=== PATIENT | male | born 1990 | race Caucasian/White ===

== ENCOUNTER 2017-10-23 16:45 | Emergency (ER) | payer OTHER ==
[2017-10-23] MEDS ORDERED: NS 0.9% 1000 ML* 1,000 ML IV ONE (17:21)
[2017-10-23 17:31] LABS: ABS Basophils 0 10^3/ul (0-0.2); ABS Eosinophils 0.1 10^3/ul (0-0.6); ABS Lymphocytes 3.3 10^3/ul (1.0-4.8); ABS Monocytes 0.7 10^3/ul (0-0.8); ABS Neutrophils 8.1 10^3/ul (1.5-7.7); ABS Nucleated RBC 0 10^3/ul; Eosinophil % 0.9 % (0-6); Hematocrit 47 % (42-52); Lymphocyte % 26.8 % (25-47); Mean Corpuscular HGB Conc 35 g/dl (31-36); Mean Corpuscular Hemoglobin 31 pg (27-31); Mean Corpuscular Volume 91 fL (80-94); Mean Platelet Volume 8.8 um3 (7.4-10.4); Nucleated Red Blood Cells % 0; Platelet Count 219 10^3/ul (150-450); Red Blood Count 5.14 10^6/ul (4.0-5.4); Red Cell Distribution Width 14 % (10.5-15); White Blood Count 12.2 10^3/ul (3.5-10.8)
[2017-10-23 17:37] LABS: Urine Appearance Clear; Urine Blood Negative (Negative); Urine Color Yellow; Urine Ketones Negative (Negative); Urine Protein Negative (Negative); Urine Specific Gravity 1.009 (1.010-1.030); Urine Urobilinogen Negative (Negative)
[2017-10-23] MEDS ORDERED: LORazepam INJ* 2 MG/ML 1 ML VIAL IV PUSH ONE (18:34)
--- NOTE | 2017-10-23 22:23 | ED ---
Patrice Brunner Natalie, scribed for Corrine Lee MD on 10/23/17 at 1817 . Substance Abuse/Use - HPI Summary HPI Summary: The pt is a 27 y/o M presenting to the ED c/o ingesting 48 30mg Coricidin pills at 14:30 today. Pt did not vomit after the ingestion. His mother noticed his body was erythematous so she made him come to the ED. He states he took the pills because they "make him comfortable." Pt denies abd pain, nausea, CP, and urinary symptoms. He has had similar episodes before. He states that he last took Coricidin 6 months ago, and he has gone to rehab. He is confused in the ED. He denies SI or HI here, but he has attempted suicide before where he took 200 pills of Coricidin. He regularly takes Invega Sustenna, which he last took on September 03. He is currently living with his mother, and he is unemployed. His mental health counselor is Isi Barajas. FHx of cancer, no SI. - History Of Current Complaint Chief Complaint: EDOverdose Stated Complaint: CONFUSION Time Seen by Provider: 10/23/17 17:00 Hx Obtained From: Patient Onset/Duration of Drug/ETOH Abuse: Hours Ingestion History: Type/Name Of Drug - Coriciden, Amount Ingested - 48 tabs of 30mg each, Approximate Time Of Ingestion - 14:30 Overdose Characteristics: Oral Timing Of Abuse: Recent Cessation For A Period Of - six months Severity Initially: Severe Severity Currently: Severe Aggravating Factor(s): Other - wanted to feel comfortable Alleviating Factor(s): Nothing Associated Signs And Symptoms: Negative - CP, nausea, urinary symptoms, abd pain , SI, HI, Confused Related Hx: Possible Multi Drug Ingestion, Prior Drug Abuse Counseling/Admission , Prior Psych Admission - Risk Factor(s) Completed Suicide Risk Factors: Male, White [place], Past Suicide Attempt - Allergies/Home Medications Allergies/Adverse Reactions: Allergies Allergy/AdvReac Type Severity Reaction Status Date / Time No Known Allergies Allergy Verified 10/23/17 19:21 Home Medications: Home Medications Benztropine TAB* [Cogentin TAB*] 1 mg PO BID 10/23/17 [History Confirmed ] Divalproex DR TAB(*) [Depakote DR(*)] 500 mg PO BID 10/23/17 [History Confirmed 10/23/17] Folic Acid TAB* [Folvite TAB*] 1 mg PO DAILY 10/23/17 [History Confirmed ] Levothyroxine TAB* [Synthroid TAB*] 150 mcg PO DAILY 10/23/17 [History Confirmed 10/23/17] Multivitamins/Minerals TAB* [Theragran/minerals TAB*] 1 tab PO DAILY 10/23/17 [ History Confirmed 10/23/17] Nicotine PATCH 14 MG/24 HR* 14 mg TRANSDERM DAILY 10/23/17 [History Confirmed ] Sertraline* [Zoloft*] 50 mg PO DAILY 10/23/17 [History Confirmed 10/23/17] Thiamine TAB* [Vitamin B-1 TAB*] 100 mg PO DAILY 10/23/17 [History Confirmed 01/03] PMH/Surg Hx/FS Hx/Imm Hx Endocrine/Hematology History: Reports: Hx Thyroid Disease - Hypothyroidism Denies: Hx Anticoagulant Therapy, Hx Blood Disorders, Hx Blood Transfusions, Hx Bone Marrow Disease, Hx Diabetes, Hx Systemic Lupus Erythematosus, Hx Sickle Cell Disease, Hx Anemia, Hx Unexplained Bleeding, Other Endocrine/Hematological Disorders Cardiovascular History: Reports: Hx Hypertension Denies: Hx Aneurysm, Hx Angina, Hx Angioplasty, Hx Auto Implanted Cardiovert Defib, Hx Cardiac Arrest, Hx Cardiomegaly, Hx Congenital Heart Disease, Hx Congestive Heart Failure, Hx Coronary Artery Disease, Hx Deep Vein Thrombosis, Hx Embolism, Hx Hypercholesterolemia, Hx Hypotension, Hx Pacemaker/ICD, Hx Peripheral Vascular Disease, Hx Rheumatic Fever, Hx Syncope, Hx Valvular Heart Disease, Other Cardiovascular Problems/Disorders Respiratory History: Reports: Hx Pneumonia, Hx Seasonal Allergies Denies: Hx Asthma, Hx Chronic Bronchitis, Hx Chronic Obstructive Pulmonary Disease (COPD), Hx Cystic Fibrosis, Hx Lung Cancer, Hx Pleural Effusion, Hx Pulmonary Edema, Hx Pulmonary Embolism, Hx Sleep Apnea, Other Respiratory Problems/Disorders GI History: Reports: Hx Ulcer Denies: Hx Cirrhosis, Hx Crohn's Disease, Hx Diverticulosis, Hx Gall Bladder Disease, Hx Gastroesophageal Reflux Disease, Hx Gastrointestinal Bleed, Hx Hiatal Hernia, Hx Irritable Bowel, Hx Jaundice, Hx Obstructive Bowel, Hx Ileostomy, Hx Pyloric Stenosis, Other GI Disorders History: Denies: Hx Acute Renal Failure, Hx Benign Prostatic Hyperplasia, Hx Chronic Renal Failure, Hx Dialysis, Hx Kidney Infection, Hx Kidney Stones, Hx Renal Disease, Other Problems/Disorders Musculoskeletal History: Denies: Hx Arthritis, Hx Back Problems, Hx Bursitis, Hx Congenital Bone Abnormalities, Hx Fibromyalgia, Hx Gout, Hx Orthopedic Injury, Hx Osteoporosis, Hx Scoliosis, Hx Tendonitis, Other Musculoskeletal History Sensory History: Reports: Hx Contacts or Glasses Denies: Hx Cataracts, Hx Eye Injury, Hx Eye Prosthesis, Hx Glaucoma, Hx Legally Blind, Hx Macular Degeneration, Hx Vision Problem, Other Sensory Impairments Opthamlomology History: Reports: Hx Contacts or Glasses Denies: Hx Cataracts, Hx Eye Injury, Hx Eye Prosthesis, Hx Glaucoma, Hx Legally Blind, Hx Macular Degeneration, Hx Vision Problem, Other Sensory Impairments Neurological History: Reports: Hx Headaches, Hx Seizures Denies: Hx Dementia, Hx Developmental Delay, Hx Migraine, Hx Nerve Disease, Hx Spinal Cord Injury, Hx Transient Ischemic Attacks (TIA), Other Neuro Impairments/Disorders Psychiatric History: Reports: Hx Anxiety, Hx Depression, Hx Post Traumatic Stress Disorder, Hx Inpatient Treatment, Hx Community Mental Health Tx, Hx Bipolar Disorder, Hx of Violent Episodes Against Others, Hx Substance Abuse, Other Psychiatric Issues/Disorders Denies: Hx Attention Deficit Hyperactivity Disorder, Hx Eating Disorder, Hx Panic Disorder, Hx Schizophrenia, Hx Suicide Attempt - Surgical History Surgery Procedure, Year, and Place: none - Immunization History Date of Tetanus Vaccine: Unknown Date of Influenza Vaccine: None Infectious Disease History: No Infectious Disease History: Reports: Hx Hepatitis - Hep C Denies: Hx Clostridium Difficile, Hx Human Immunodeficiency Virus (HIV), Hx of Known/Suspected MRSA, Hx Shingles, Hx Tuberculosis, Hx Known/Suspected VRE, Hx Known/Suspected VRSA, History Other Infectious Disease, Traveled Outside the [place] in Last 30 Days - Family History Known Family History: Positive: Other - cancer - Social History Occupation: Unemployed Lives: With Family Alcohol Use: Weekly Hx Substance Use: Yes Substance Use Type: 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 - dextromethorphan Substance Use Comment - Amount & Last Used: Coricidin Hx Tobacco Use: Yes Smoking Status (MU): Light Every Day Tobacco Smoker Type: Cigarettes Have You Smoked in the Last Year: Yes Review of Systems Constitutional: Negative Negative: Chest Pain Negative: Shortness Of Breath Negative: Abdominal Pain, Nausea Positive: Other - flushed red Neurological: Negative Positive: Other - POSITIVE: ingestion of 48 30mg Coriciden; NEGATIVE: current SI , HI All Other Systems Reviewed And Are Negative: Yes Physical Exam - Summary Physical Exam Summary: Appearance: Ill-appearing, no pain distress, Well-nourished, tachycardic Skin: Warm, flushed skin Head: Normal Head/Face inspection, atraumatic Eyes: Conjunctiva clear, pupils 4mm dilated and reactive,equal, no nystagmus ENT: Normal inspection Neck: Supple, no nodes, no JVD. Respiratory: Lungs clear, Normal breath sounds, no respiratory distress Cardio: RRR, No murmur, pulses normal, brisk capillary refill Abdomen: soft, nontender, no masses Bowel sounds: present Musculoskeletal: Strength Intact/ ROM intact. No calf tenderness. No edema. Psychological: Normal Neuro: Alert, muscle tone normal, no focal deficit, reflexes symmetric 2+, moves all extremities, GCS14 on adm Triage Information Reviewed: Yes Vital Signs On Initial Exam: Initial Vitals Temp Pulse Resp BP Pulse Ox 100.6 F 130 18 138/93 94 10/23/17 16:46 10/23/17 16:46 10/23/17 16:46 10/23/17 16:46 10/23/17 16:46 Vital Signs Reviewed: Yes Diagnostics - Vital Signs Vital Signs Temp Pulse Resp BP Pulse Ox 10/23/17 17:11 97 10/23/17 17:07 100.9 F 121 18 133/91 10/23/17 16:46 100.6 F 130 18 138/93 94 - Laboratory Lab Results: Lab Results 10/23/17 10/23/17 Range/Units 17:21 17:21 WBC 12.2 H (3.5-10.8) 10^3/ul RBC 5.14 (4.0-5.4) 10^6/ul Hgb 16.0 (14.0-18.0) g/dl Hct 47 (42-52) % MCV 91 (80-94) fL MCH 31 (27-31) pg MCHC 35 (31-36) g/dl RDW 14 (10.5-15) % Plt Count 219 (150-450) 10^3/ul MPV 8.8 (7.4-10.4) um3 Neut % (Auto) 66.5 (38-83) % Lymph % (Auto) 26.8 (25-47) % [place] % (Auto) 5.5 (0-7) % Eos % (Auto) 0.9 (0-6) % Baso % (Auto) 0.3 (0-2) % Absolute Neuts (auto) 8.1 H (1.5-7.7) 10^3/ul Absolute Lymphs (auto) 3.3 (1.0-4.8) 10^3/ul Absolute Monos (auto) 0.7 (0-0.8) 10^3/ul Absolute Eos (auto) 0.1 (0-0.6) 10^3/ul Absolute Basos (auto) 0 (0-0.2) 10^3/ul Absolute Nucleated RBC 0 10^3/ul Nucleated RBC % 0 Urine Color Yellow Urine Appearance Clear Urine pH 6.0 (5-9) Ur Specific [place] 1.009 L (1.010-1.030) Urine Protein Negative (Negative) Urine Ketones Negative (Negative) Urine Blood Negative (Negative) Urine Nitrate Negative (Negative) Urine Bilirubin Negative (Negative) Urine Urobilinogen Negative (Negative) Ur Leukocyte Esterase Negative (Negative) Urine Glucose Negative (Negative) Result Diagrams: 10/23/17 17:21 10/23/17 17:21 Lab Statement: Any lab studies that have been ordered have been reviewed, and results considered in the medical decision making process. - EKG 16:47 Cardiac Rate: Tachycardia EKG Rhythm: Sinus Rhythm - 116 BPM EKG Interpretation: Nml AVIVCT, nml QTc, nml axis. EKG Comparison: No Significant Change - Compared to 08/31/15 Re-Evaluation - Re-Evaluation First Eval Re-Evaluation Time: 20:00 Change: Improved Comment: feels well, GCS 15, less tachycardic, wants to go home Second Eval Change: Improved Comment: pulse 95, less flushed, pupils less dilated approx 3mm reactive. Medically clear after discussion with poison control. Course/Dx - Course Course Of Treatment: Pt's medications reviewed during this visit. Allergies noted. High blood pressure noted. Pt is being observed for serotonin syndrome with fever, flushing and tachycardia. In the ED, pt was given 2mg Ativan IV and 1L NS. If needed, pt will be given 10 mg IV valium per poison control. Will observe for nystagmus and dilated pupils, clonus, and hyperreflexia. Pt had LFT' s and usual overdose labwork. Discussed with Juliette in poison control. Pt was medically cleared at 2030, and referred for mental health evaluation for overdose, despite his claim of no SI. Pt is impulsive, has OD'd prior with " 200 pills". Recommend mental health evaluation for evaluation for disposition. Per RN, mother will not take pt back. - Diagnoses Differential Diagnosis/HQI/PQRI: Positive: Drug Abuse, Suicidal Risk Provider Diagnoses: Deliberate medication overdose - Critical Care Time Critical Care Time: 30-74 min - 30mins Discharge - Sign-Out/Discharge Documenting (check all that apply): Sign-Out Patient Signing out patient TO: Twan Villarreal - awaiting MHE - Discharge Plan Condition: Stable Referrals: No Primary Care Phys,NOPCP [Primary Care Provider] - - Billing Disposition and Condition Condition: STABLE The documentation as recorded by the Patrice fournier Natalie accurately reflects the service I personally performed and the decisions made by , Corrine Lee MD.
--- NOTE | 2017-10-24 06:01 | ED ---
Connie Brunner Rebecca, scribed for Twan Villarreal MD on 10/24/17 at 0600 . Progress - Progress Note Progress Note: Pt was signed out by Dr. Lee, pending disposition, awaiting MHE. Course/Dx - Course Course Of Treatment: Pt was signed out by Dr. Lee, pending disposition, awaiting MHE. At shift change, pt has been designated as a MHU hold and will be signed out to the next ED attending, Dr. Lynch. - Diagnoses Provider Diagnoses: Deliberate medication overdose - Critical Care Time Critical Care Time: 30-74 min - 30mins Discharge - Sign-Out/Discharge Documenting (check all that apply): Receiving Sign-Out Signing out patient TO: Dano Lynch Receiving patient FROM: Corrine Lee - Discharge Plan Condition: Stable Referrals: No Primary Care Phys,NOPCP [Primary Care Provider] - The documentation as recorded by the Connie fournier Rebecca accurately reflects the service I personally performed and the decisions made by , Twan Villarreal MD.
[2017-10-24] MEDS ORDERED: Mouth Piece, Nicotine* 1 EACH CARTRIDGE INH PRN (06:49)
[2017-10-24] MEDS ORDERED: Nicotine Inhaler* 10 MG AMP INH ONE (06:49)
--- NOTE | 2017-10-24 08:16 | PN ---
ED Flex Patient Progress Note Subjective: This is a 27 year-old M who is pending psychiatric evaluation secondary to ____ overdose of Coricidon, possible suicide attempt. H/o OD'ing on same . Pt offers no complaints at this time. Wants to go home. Objective: Vitals: Most recent vital signs documented below. Improved since arrival General NAD, Alert and oriented x3. Anxious. Heart: S1/S2, rrr Lungs: CTA, Breathing easily Laboratory: Current laboratory results documented below. TSH was elevated last night - FT3, FT4 are WNL. May have been abnormal 2ndry to coricidon OD. Assessment: overdose Plan: Pending psychiatric evaluation. Medically improved since initial arrival. Will follow up daily _while in ED____. Vital Signs Temp Pulse Resp BP Pulse Ox 97.8 F 61 20 116/73 95 10/24/17 06:22 10/24/17 06:22 10/24/17 06:22 10/24/17 06:22 10/24/17 06:22 Lab Results - Entire Visit 10/23/17 10/23/17 10/23/17 17:21 17:21 17:21 WBC RBC Hgb Hct MCV MCH MCHC RDW Plt Count MPV Neut % (Auto) Lymph % (Auto) [place] % (Auto) Eos % (Auto) Baso % (Auto) Absolute Neuts (auto) Absolute Lymphs (auto) Absolute Monos (auto) Absolute Eos (auto) Absolute Basos (auto) Absolute Nucleated RBC Nucleated RBC % Sodium 138 L Potassium 3.7 Chloride 103 Carbon Dioxide 24 Anion Gap 11 BUN 16 Creatinine 1.08 Est GFR ( Amer) 105.5 Est GFR (Non-Af Amer) 82.0 BUN/Creatinine Ratio 14.8 Glucose 90 Lactic Acid 1.1 Calcium 9.9 Total Bilirubin 0.20 AST 18 ALT 19 Alkaline Phosphatase 43 Total Creatine Kinase 78 Troponin I 0.01 Total Protein 7.8 Albumin 4.9 Globulin 2.9 Albumin/Globulin Ratio 1.7 TSH 14.75 H Free T4 0.73 Free T3 3.40 Urine Color Urine Appearance Urine pH Ur Specific [place] Urine Protein Urine Ketones Urine Blood Urine Nitrate Urine Bilirubin Urine Urobilinogen Ur Leukocyte Esterase Urine Glucose Salicylates < 2.50 Urine Opiates Screen Presumptive positive A Acetaminophen < 15 Ur Barbiturates Screen None detected Valproic Acid < 13.0 L Ur Phencyclidine Scrn Presumptive positive A Ur Amphetamines Screen None detected U Benzodiazepines Scrn None detected Urine Cocaine Screen None detected U Cannabinoids Screen None detected Serum Alcohol < 10 10/23/17 10/23/17 17:21 17:21 WBC 12.2 H RBC 5.14 Hgb 16.0 Hct 47 MCV 91 MCH 31 MCHC 35 RDW 14 Plt Count 219 MPV 8.8 Neut % (Auto) 66.5 Lymph % (Auto) 26.8 [place] % (Auto) 5.5 Eos % (Auto) 0.9 Baso % (Auto) 0.3 Absolute Neuts (auto) 8.1 H Absolute Lymphs (auto) 3.3 Absolute Monos (auto) 0.7 Absolute Eos (auto) 0.1 Absolute Basos (auto) 0 Absolute Nucleated RBC 0 Nucleated RBC % 0 Sodium Potassium Chloride Carbon Dioxide Anion Gap BUN Creatinine Est GFR ( Amer) Est GFR (Non-Af Amer) BUN/Creatinine Ratio Glucose Lactic Acid Calcium Total Bilirubin AST ALT Alkaline Phosphatase Total Creatine Kinase Troponin I Total Protein Albumin Globulin Albumin/Globulin Ratio TSH Free T4 Free T3 Urine Color Yellow Urine Appearance Clear Urine pH 6.0 Ur Specific [place] 1.009 L Urine Protein Negative Urine Ketones Negative Urine Blood Negative Urine Nitrate Negative Urine Bilirubin Negative Urine Urobilinogen Negative Ur Leukocyte Esterase Negative Urine Glucose Negative Salicylates Urine Opiates Screen Acetaminophen Ur Barbiturates Screen Valproic Acid Ur Phencyclidine Scrn Ur Amphetamines Screen U Benzodiazepines Scrn Urine Cocaine Screen U Cannabinoids Screen Serum Alcohol <Missy Richard - Last Filed: 10/24/17 08:16> Subjective: This is a 27 year-old M who is pending admission to [facility] / transfer to another psychiatric facility / discharge to home / or being observed secondary to . Pt offers no complaints at this time or is c/o . Objective: Vitals: Most recent vital signs documented below. General NAD, Alert and oriented x3. Heart: rrr at bpm Lungs: CTA or with rales, rhonchi, wheezing Laboratory: Current laboratory results documented below. Assessment: Plan: Pending psychiatric or medical consultation to observe / transfer / admit / discharge will follow up daily . Vital Signs Temp Pulse Resp BP Pulse Ox 36.9 C 89 20 130/81 100 10/24/17 08:55 10/24/17 08:55 10/24/17 08:55 10/24/17 08:55 10/24/17 08:55 Lab Results - Entire Visit 10/23/17 10/23/17 10/23/17 17:21 17:21 17:21 WBC RBC Hgb Hct MCV MCH MCHC RDW Plt Count MPV Neut % (Auto) Lymph % (Auto) [place] % (Auto) Eos % (Auto) Baso % (Auto) Absolute Neuts (auto) Absolute Lymphs (auto) Absolute Monos (auto) Absolute Eos (auto) Absolute Basos (auto) Absolute Nucleated RBC Nucleated RBC % ESR Sodium 138 L Potassium 3.7 Chloride 103 Carbon Dioxide 24 Anion Gap 11 BUN 16 Creatinine 1.08 Est GFR ( Amer) 105.5 Est GFR (Non-Af Amer) 82.0 BUN/Creatinine Ratio 14.8 Glucose 90 Lactic Acid 1.1 Calcium 9.9 Total Bilirubin 0.20 AST 18 ALT 19 Alkaline Phosphatase 43 Total Creatine Kinase 78 Troponin I 0.01 Total Protein 7.8 Albumin 4.9 Globulin 2.9 Albumin/Globulin Ratio 1.7 TSH 14.75 H Free T4 0.73 Free T3 3.40 Urine Color Urine Appearance Urine pH Ur Specific [place] Urine Protein Urine Ketones Urine Blood Urine Nitrate Urine Bilirubin Urine Urobilinogen Ur Leukocyte Esterase Urine Glucose Salicylates < 2.50 Urine Opiates Screen Presumptive positive A Acetaminophen < 15 Ur Barbiturates Screen None detected Valproic Acid < 13.0 L Ur Phencyclidine Scrn Presumptive positive A Ur Amphetamines Screen None detected U Benzodiazepines Scrn None detected Urine Cocaine Screen None detected U Cannabinoids Screen None detected Serum Alcohol < 10 10/23/17 10/23/17 17:21 17:21 WBC 12.2 H RBC 5.14 Hgb 16.0 Hct 47 MCV 91 MCH 31 MCHC 35 RDW 14 Plt Count 219 MPV 8.8 Neut % (Auto) 66.5 Lymph % (Auto) 26.8 [place] % (Auto) 5.5 Eos % (Auto) 0.9 Baso % (Auto) 0.3 Absolute Neuts (auto) 8.1 H Absolute Lymphs (auto) 3.3 Absolute Monos (auto) 0.7 Absolute Eos (auto) 0.1 Absolute Basos (auto) 0 Absolute Nucleated RBC 0 Nucleated RBC % 0 ESR 5 Sodium Potassium Chloride Carbon Dioxide Anion Gap BUN Creatinine Est GFR ( Amer) Est GFR (Non-Af Amer) BUN/Creatinine Ratio Glucose Lactic Acid Calcium Total Bilirubin AST ALT Alkaline Phosphatase Total Creatine Kinase Troponin I Total Protein Albumin Globulin Albumin/Globulin Ratio TSH Free T4 Free T3 Urine Color Yellow Urine Appearance Clear Urine pH 6.0 Ur Specific [place] 1.009 L Urine Protein Negative Urine Ketones Negative Urine Blood Negative Urine Nitrate Negative Urine Bilirubin Negative Urine Urobilinogen Negative Ur Leukocyte Esterase Negative Urine Glucose Negative Salicylates Urine Opiates Screen Acetaminophen Ur Barbiturates Screen Valproic Acid Ur Phencyclidine Scrn Ur Amphetamines Screen U Benzodiazepines Scrn Urine Cocaine Screen U Cannabinoids Screen Serum Alcohol <Carmelo Lynch-Jenny - Last Filed: 10/26/17 20:42>
[2017-10-24 08:58] VITALS: BP 130/81
== END 2017-10-24 08:55 | disposition home or self-care (01) ==
LOC: ED 16:45
DX: T50.992A Poisoning by other drugs, medicaments and biological substances, intentional self-harm, initial encounter (principal); F17.210 Nicotine dependence, cigarettes, uncomplicated; Z91.5 Personal history of self-harm
CPT/HCPCS: 36415; 80053; 80164; 80307; 80320; 80329; 81003; 82550; 83605; 84439; 84443; 84481; 84484; 85025; 85652; 93005; 96361; 96374; 99283; G0480; J2060

== ENCOUNTER 2017-10-24 10:59 | Observation (INO) | payer OTHER ==
[2017-10-24] MEDS ORDERED: NS 0.9% 1000 ML* 2,000 ML IV ONE (11:15)
[2017-10-24] MEDS ORDERED: LORazepam INJ* 2 MG/ML 1 ML VIAL IV PUSH ONE ×2 (11:15→14:01)
[2017-10-24] MEDS ORDERED: Charcoal ACTIVATED* 25 GM/120 ML BTL PO ONE (11:26)
[2017-10-24 11:38] LABS: ABS Basophils 0 10^3/ul (0-0.2); ABS Eosinophils 0.3 10^3/ul (0-0.6); ABS Lymphocytes 3.1 10^3/ul (1.0-4.8); ABS Monocytes 0.6 10^3/ul (0-0.8); ABS Neutrophils 6.4 10^3/ul (1.5-7.7); ABS Nucleated RBC 0 10^3/ul; Eosinophil % 3.3 % (0-6); Hematocrit 44 % (42-52); Hemoglobin 14.9 g/dl (14.0-18.0); Lymphocyte % 29.6 % (25-47); Mean Corpuscular HGB Conc 34 g/dl (31-36); Mean Corpuscular Hemoglobin 31 pg (27-31); Mean Corpuscular Volume 91 fL (80-94); Mean Platelet Volume 8.2 um3 (7.4-10.4); Nucleated Red Blood Cells % 0.1; Platelet Count 225 10^3/ul (150-450); Red Blood Count 4.78 10^6/ul (4.0-5.4); Red Cell Distribution Width 13 % (10.5-15); White Blood Count 10.5 10^3/ul (3.5-10.8)
[2017-10-24 11:48] LABS: INR 1.14 (0.77-1.02)
[2017-10-24] MEDS ORDERED: LORazepam INJ* 2 MG/ML 1 ML VIAL IV ONE (11:50)
[2017-10-24 11:59] LABS: EGFR Non-African American 103.9 (>60)
[2017-10-24] MEDS ORDERED: NS 0.9% 1000 ML* 1,000 ML IV SCH (12:00)
[2017-10-24] MEDS: LORazepam INJ* 2 MG/ML 1 ML VIAL IV PUSH PRN ×9 (12:30→21:01)
[2017-10-24] MEDS ORDERED: Magnesium Sulfate 2 GM IV* 2 GM/50 ML BAG IVPB ONE (13:27)
--- NOTE | 2017-10-24 13:50 | HP ---
H&P (Free Text) History and Physical: CRITICAL CARE MEDICINE DATE: 10/24/17 TIME: 1230 REFERRING PROVIDER: Kita REASON/CHIEF COMPLAINT: overdose HISTORY OF PRESENT ILLNESS: 27 M known to [facility] with multiple overdoses, with dc from [facility] today with return to ED due to ingestion of 80 pills of coricidin. REVIEW OF SYSTEMS: As per HPI. PAST MEDICAL HISTORY: As per HPI. Psychiatric disturbance, polysubstance abuse, malingering, multiple suicidal attempts, depression, hep c, hypothyroid MEDICATIONS: Reviewed but unconfirmed yet. ALLERGIES: None. SOCIAL HISTORY: Reviewed per records. FAMILY HISTORY: Noncontributory at present. PHYSICAL EXAM: Vital Signs: Reviewed. hr 110s-120s. nonlabored. charcoal in oral pharynx Neurologic: mod delirium; reaching up into the air. hicks. answer some questions appropriately. HEENT: pupils dilated to 5mm but reactive. diffuse erythroderma appearance Cardiovascular: tachy S1 S2 Respiratory: clear non labored. ra Abdomen: soft, nt Extremities: warm, flushed Access: piv LABS: Reviewed. IMAGING: Reviewed. MEDICATIONS: Reviewed. ASSESSMENT: 27 M with h/o multiple overdoses now presenting with intention overdose of 80 pills corcidin. Mild- moderate agitation and delirium At risk for seizures At risk for aspiration Tachycardia, ecg with prolonged QT BP not up yet, but could escalate Resp ok. Received charcoal in ED but airway and agitated delirium still concerning needing ICU management. PLAN: Neurologic: maintaining. given ativan in ED. Continue rather routinely today so things don't escalate. seizure precautions. Cardiovascular: Perfusing. 2L ivf in ED And keep ivf going. benzo use. replete mag k. Respiratory: rosanna. needs icu airway observation. ra. if somulent can monitor with etco2. Gastrointestinal: npo for now. no ngt at this point. Renal/Metabolic: k down slightly. replete with ivf. Infectious Disease: no infective burden. Hematology: stable. hsq Endocrine: continue T4 replacement. Musculoskeletal: seizure precautions. Psych/Social: psych eval when medically cleared Supportive and preventative care as ordered. SUP: ppi VTE prophylaxis: heparin Disposition: ICU for today; hopefully psych soto Code Status: Full Critical Care Time: 40min Mo Manzano DO
[2017-10-24] MEDS ORDERED: LORazepam INJ* 2 MG/ML 1 ML VIAL ONE (14:02)
[2017-10-24] MEDS ORDERED: Diazepam INJ (NF) 5 MG/ML 10 ML VIAL (50 MG TOTAL) IV ONE (14:23)
[2017-10-24] MEDS ORDERED: NS 0.9% w/ 40 Meq KCL 1000 ML* 1,000 ML IV SCH (17:00)
[2017-10-24] MEDS: Diazepam INJ (NF) 5 MG/ML 10 ML VIAL (50 MG TOTAL) IV PRN ×2 (17:03→21:17)
[2017-10-24 17:47] LABS: Urine Appearance Clear; Urine Blood Negative (Negative); Urine Color Straw; Urine Ketones Negative (Negative); Urine Protein Negative (Negative); Urine Specific Gravity 1.009 (1.010-1.030); Urine Urobilinogen Negative (Negative)
--- NOTE | 2017-10-24 21:55 | ED ---
John Brunner Stephanie, scribed for Adam East MD on 10/24/17 at 1131 . Substance Abuse/Use - HPI Summary HPI Summary: The pt is a 27 y/o M presenting to the ED with c/o overdose that occurred at 10: 30 today. The pt was recently discharged from [facility] at the hospital and overdosed on 80 tablets of 30 mg Coricidin. The pt has hx of OD with his usual OD amount of 64 tablets of 30 mg Coricidin. He denies taking any other drugs at the moment. He states he has been 6.5 months sober until yesterday. He states he has been experiencing recent stress of losing his job 2 days ago. - History Of Current Complaint Chief Complaint: EDOverdose Stated Complaint: OVERDOSE Time Seen by Provider: 10/24/17 11:07 Hx Obtained From: Patient Onset/Duration of Drug/ETOH Abuse: Hours - 1 Ingestion History: Type/Name Of Drug - Coricidin, Amount Ingested - 80 30 mg tablets Overdose Characteristics: Oral Timing Of Abuse: Binge Use Severity Currently: Mild Aggravating Factor(s): Recent Stress - job loss Alleviating Factor(s): Nothing - Allergies/Home Medications Allergies/Adverse Reactions: Allergies Allergy/AdvReac Type Severity Reaction Status Date / Time No Known Allergies Allergy Verified 10/23/17 19:21 PMH/Surg Hx/FS Hx/Imm Hx Endocrine/Hematology History: Reports: Hx Thyroid Disease - Hypothyroidism Denies: Hx Anticoagulant Therapy, Hx Blood Disorders, Hx Blood Transfusions, Hx Bone Marrow Disease, Hx Diabetes, Hx Systemic Lupus Erythematosus, Hx Sickle Cell Disease, Hx Anemia, Hx Unexplained Bleeding, Other Endocrine/Hematological Disorders Cardiovascular History: Reports: Hx Hypertension Denies: Hx Aneurysm, Hx Angina, Hx Angioplasty, Hx Auto Implanted Cardiovert Defib, Hx Cardiac Arrest, Hx Cardiomegaly, Hx Congenital Heart Disease, Hx Congestive Heart Failure, Hx Coronary Artery Disease, Hx Deep Vein Thrombosis, Hx Embolism, Hx Hypercholesterolemia, Hx Hypotension, Hx Pacemaker/ICD, Hx Peripheral Vascular Disease, Hx Rheumatic Fever, Hx Syncope, Hx Valvular Heart Disease, Other Cardiovascular Problems/Disorders Respiratory History: Reports: Hx Pneumonia, Hx Seasonal Allergies Denies: Hx Asthma, Hx Chronic Bronchitis, Hx Chronic Obstructive Pulmonary Disease (COPD), Hx Cystic Fibrosis, Hx Lung Cancer, Hx Pleural Effusion, Hx Pulmonary Edema, Hx Pulmonary Embolism, Hx Sleep Apnea, Other Respiratory Problems/Disorders GI History: Reports: Hx Ulcer Denies: Hx Cirrhosis, Hx Crohn's Disease, Hx Diverticulosis, Hx Gall Bladder Disease, Hx Gastroesophageal Reflux Disease, Hx Gastrointestinal Bleed, Hx Hiatal Hernia, Hx Irritable Bowel, Hx Jaundice, Hx Obstructive Bowel, Hx Ileostomy, Hx Pyloric Stenosis, Other GI Disorders History: Denies: Hx Acute Renal Failure, Hx Benign Prostatic Hyperplasia, Hx Chronic Renal Failure, Hx Dialysis, Hx Kidney Infection, Hx Kidney Stones, Hx Renal Disease, Other Problems/Disorders Musculoskeletal History: Denies: Hx Arthritis, Hx Back Problems, Hx Bursitis, Hx Congenital Bone Abnormalities, Hx Fibromyalgia, Hx Gout, Hx Orthopedic Injury, Hx Osteoporosis, Hx Scoliosis, Hx Tendonitis, Other Musculoskeletal History Sensory History: Reports: Hx Contacts or Glasses Denies: Hx Cataracts, Hx Eye Injury, Hx Eye Prosthesis, Hx Glaucoma, Hx Legally Blind, Hx Macular Degeneration, Hx Vision Problem, Other Sensory Impairments Opthamlomology History: Reports: Hx Contacts or Glasses Denies: Hx Cataracts, Hx Eye Injury, Hx Eye Prosthesis, Hx Glaucoma, Hx Legally Blind, Hx Macular Degeneration, Hx Vision Problem, Other Sensory Impairments Neurological History: Reports: Hx Headaches, Hx Seizures Denies: Hx Dementia, Hx Developmental Delay, Hx Migraine, Hx Nerve Disease, Hx Spinal Cord Injury, Hx Transient Ischemic Attacks (TIA), Other Neuro Impairments/Disorders Psychiatric History: Reports: Hx Anxiety, Hx Depression, Hx Post Traumatic Stress Disorder, Hx Inpatient Treatment, Hx Community Mental Health Tx, Hx Bipolar Disorder, Hx of Violent Episodes Against Others, Hx Substance Abuse, Other Psychiatric Issues/Disorders Denies: Hx Attention Deficit Hyperactivity Disorder, Hx Eating Disorder, Hx Panic Disorder, Hx Schizophrenia, Hx Suicide Attempt - Surgical History Surgery Procedure, Year, and Place: none - Immunization History Date of Tetanus Vaccine: Unknown Date of Influenza Vaccine: None Infectious Disease History: No Infectious Disease History: Reports: Hx Hepatitis - Hep C Denies: Hx Clostridium Difficile, Hx Human Immunodeficiency Virus (HIV), Hx of Known/Suspected MRSA, Hx Shingles, Hx Tuberculosis, Hx Known/Suspected VRE, Hx Known/Suspected VRSA, History Other Infectious Disease, Traveled Outside the [place] in Last 30 Days - Family History Known Family History: Positive: Other - cancer Negative: Renal Disease - Social History Occupation: Unemployed Lives: Alone Alcohol Use: Weekly Hx Substance Use: Yes Substance Use Type: 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 - dextromethorphan Substance Use Comment - Amount & Last Used: Coricidin Hx Tobacco Use: Yes Smoking Status (MU): Light Every Day Tobacco Smoker Type: Cigarettes Have You Smoked in the Last Year: Yes Review of Systems Negative: Fever Negative: Slurred Speech All Other Systems Reviewed And Are Negative: Yes Physical Exam - Summary Physical Exam Summary: General: well-appearing, no pain distress Skin: warm, color reflects adequate perfusion, dry Head: normal Eyes: EOMI, pupils 5 mm dilated and reactive to light ENT: normal Neck: supple, nontender Respiratory: CTA, breath sounds present Cardiovascular: tachycardic, regular rhythm Abdomen: soft, nontender Bowel: present Musculoskeletal: normal, strength/ROM intact Neurological: normal, sensory/motor intact, A&O x3 Psychological: affect/mood appropriate Triage Information Reviewed: Yes Vital Signs On Initial Exam: Initial Vitals Temp Pulse Resp BP Pulse Ox 99.5 F 105 20 130/91 97 10/24/17 11:01 10/24/17 11:01 10/24/17 11:01 10/24/17 11:01 10/24/17 11:01 Vital Signs Reviewed: Yes Diagnostics - Vital Signs Vital Signs Temp Pulse Resp BP Pulse Ox 10/24/17 11:01 99.5 F 105 20 130/91 97 - Laboratory Lab Results: Lab Results 10/24/17 10/24/17 10/24/17 Range/Units 11:29 11:29 11:29 WBC 10.5 (3.5-10.8) 10^3/ul RBC 4.78 (4.0-5.4) 10^6/ul Hgb 14.9 (14.0-18.0) g/dl Hct 44 (42-52) % MCV 91 (80-94) fL MCH 31 (27-31) pg MCHC 34 (31-36) g/dl RDW 13 (10.5-15) % Plt Count 225 (150-450) 10^3/ul MPV 8.2 (7.4-10.4) um3 Neut % (Auto) 60.8 (38-83) % Lymph % (Auto) 29.6 (25-47) % Gillespie % (Auto) 6.0 (0-7) % Eos % (Auto) 3.3 (0-6) % Baso % (Auto) 0.3 (0-2) % Absolute Neuts (auto) 6.4 (1.5-7.7) 10^3/ul Absolute Lymphs (auto) 3.1 (1.0-4.8) 10^3/ul Absolute Monos (auto) 0.6 (0-0.8) 10^3/ul Absolute Eos (auto) 0.3 (0-0.6) 10^3/ul Absolute Basos (auto) 0 (0-0.2) 10^3/ul Absolute Nucleated RBC 0 10^3/ul Nucleated RBC % 0.1 INR (Anticoag Therapy) 1.14 H (0.77-1.02) APTT 29.8 (26.0-36.3) seconds Sodium 138 L (139-145) mmol/L Potassium 3.4 L (3.5-5.0) mmol/L Chloride 106 (101-111) mmol/L Carbon Dioxide 25 (22-32) mmol/L Anion Gap 7 (2-11) mmol/L BUN 16 (6-24) mg/dL Creatinine 0.88 (0.67-1.17) mg/dL Est GFR ( Amer) 133.6 (>60) Est GFR (Non-Af Amer) 103.9 (>60) BUN/Creatinine Ratio 18.2 (8-20) Glucose 93 (70-100) mg/dL Lactic Acid (0.5-2.0) mmol/L Calcium 9.7 (8.6-10.3) mg/dL Magnesium 1.9 (1.9-2.7) mg/dL Total Bilirubin 0.40 (0.2-1.0) mg/dL AST 16 (13-39) U/L ALT 19 (7-52) U/L Alkaline Phosphatase 49 (34-104) U/L Troponin I 0.00 (<0.04) ng/mL Total Protein 7.1 (6.4-8.9) g/dL Albumin 4.5 (3.2-5.2) g/dL Globulin 2.6 (2-4) g/dL Albumin/Globulin Ratio 1.7 (1-3) TSH 8.36 H (0.34-5.60) mcIU/mL Salicylates < 2.50 (<30) mg/dL Acetaminophen < 15 mcg/mL Serum Alcohol < 10 (<10) mg/dL 10/24/17 Range/Units 11:29 WBC (3.5-10.8) 10^3/ul RBC (4.0-5.4) 10^6/ul Hgb (14.0-18.0) g/dl Hct (42-52) % MCV (80-94) fL MCH (27-31) pg MCHC (31-36) g/dl RDW (10.5-15) % Plt Count (150-450) 10^3/ul MPV (7.4-10.4) um3 Neut % (Auto) (38-83) % Lymph % (Auto) (25-47) % Gillespie % (Auto) (0-7) % Eos % (Auto) (0-6) % Baso % (Auto) (0-2) % Absolute Neuts (auto) (1.5-7.7) 10^3/ul Absolute Lymphs (auto) (1.0-4.8) 10^3/ul Absolute Monos (auto) (0-0.8) 10^3/ul Absolute Eos (auto) (0-0.6) 10^3/ul Absolute Basos (auto) (0-0.2) 10^3/ul Absolute Nucleated RBC 10^3/ul Nucleated RBC % INR (Anticoag Therapy) (0.77-1.02) APTT (26.0-36.3) seconds Sodium (139-145) mmol/L Potassium (3.5-5.0) mmol/L Chloride (101-111) mmol/L Carbon Dioxide (22-32) mmol/L Anion Gap (2-11) mmol/L BUN (6-24) mg/dL Creatinine (0.67-1.17) mg/dL Est GFR ( Amer) (>60) Est GFR (Non-Af Amer) (>60) BUN/Creatinine Ratio (8-20) Glucose (70-100) mg/dL Lactic Acid 1.1 (0.5-2.0) mmol/L Calcium (8.6-10.3) mg/dL Magnesium (1.9-2.7) mg/dL Total Bilirubin (0.2-1.0) mg/dL AST (13-39) U/L ALT (7-52) U/L Alkaline Phosphatase (34-104) U/L Troponin I (<0.04) ng/mL Total Protein (6.4-8.9) g/dL Albumin (3.2-5.2) g/dL Globulin (2-4) g/dL Albumin/Globulin Ratio (1-3) TSH (0.34-5.60) mcIU/mL Salicylates (<30) mg/dL Acetaminophen mcg/mL Serum Alcohol (<10) mg/dL Result Diagrams: 10/24/17 11:29 10/24/17 11:29 Lab Statement: Any lab studies that have been ordered have been reviewed, and results considered in the medical decision making process. - EKG 11:56 Cardiac Rate: Tachycardia EKG Rhythm: Sinus Tachycardia - [address] Segment: Normal Ectopy: None Course/Dx - Course Course Of Treatment: ADMIT ICU. DR SKINNER SAW PATIENT IN ED. - Diagnoses Provider Diagnoses: Overdose - Physician Notifications Discussed Care Of Patient With: Uday Skinner Time Discussed With Above Provider: 11:44 Instructed by Provider To: Admit As Inpatient - Critical Care Time Critical Care Time: 30-74 min Discharge - Sign-Out/Discharge Documenting (check all that apply): Discharge/Admit/Transfer - Admit - Discharge Plan Condition: Guarded Disposition: ADMITTED TO [facility] - Billing Disposition and Condition Condition: GUARDED Disposition: [facility] The documentation as recorded by the John fournier Stephanie accurately reflects the service I personally performed and the decisions made by me, Adam East MD.
[2017-10-25 05:51] LABS: EGFR Non-African American 108.1 (>60)
--- NOTE | 2017-10-25 11:24 | PN ---
Progress Note - Progress Note Date of Service: 10/25/17 Note: CRITICAL CARE MEDICINE DATE: 10/25/17 TIME: 1020 SUBJECTIVE: Patient seen and examined. No complaints. No further benzo needs since 9pm last night PHYSICAL EXAM: Vital Signs: Reviewed. hr 60s. Neurologic: stable. HEENT: anicteric, reactive Cardiovascular: reg S1 S2 Respiratory: clear Abdomen: soft, nt Extremities: warm Access: piv LABS: Reviewed. IMAGING: Reviewed. MEDICATIONS: Reviewed. ASSESSMENT/PLAN: 27 M with h/o multiple overdoses now presenting with intention overdose of 80 pills corcidin. Mild- moderate agitation and delirium/toxic encephalopathy on admission - resolved Tachycardia, with prolonged QT on admission - resolved Psychiatric disturbance PLAN: Medically stable and cleared for psych needs Supportive and preventative care as ordered. Disposition: ?mhu Code Status: Full Critical Care Time: 20min Mo Manzano, DO
--- NOTE | 2017-10-25 12:00 | PN ---
Progress Note - Progress Note Date of Service: 10/25/17 Note: CRITICAL CARE MEDICINE DATE: 10/25/17 TIME: 1200 D/w psych; clearly known very well to them. Nothing inpt to offer. Set up for aa today at 2:30 and mental health appt in am tomorrow. Advised to plans and pt to meet his f/u needs. can have lunch and will work on dispo from hospital today as he is medically fine and from [facility] otherwise as well as he can be. Disposition: home Code Status: Full Critical Care Time: 10min F. Dario Manzano DO
--- NOTE | 2017-10-25 12:22 | DS ---
CRITICAL CARE MEDICINE DISCHARGE SUMMARY ADMISSION DATE: 10/24/17 ICU ADMISSION DATE: 10/25/2017 ICU DISCHARGE DATE: 10/25/2017 REFERRING PHYSICIAN: Kita DIAGNOSIS: 1. Toxic encephalopathy. 2. Corcidin overdose. 3. Malingering disorder. 4. Prolonged QT on admission. 5. Psychiatric disturbance. 6. Delirium. MEDICATIONS AT DISCHARGE: Resume outpatient medications. ALLERGIES: None. HOSPITAL COURSE: 27 year old male admitted with overdose of corcidin (80 tabs) which has been a recurring event for patient. Known well to ED and psychiatry with multiple inpatient attempts. He was symptomatic on admission and needing close monitoring and observation and therefore admitted to intensive care unit. He received IV fluids, electrolyte replacement and benozdiazepines to control his dynamics which served him adequately. His QT and labs corrected. He has remained stable and medically clear. Was evaluated by psychiatry and plan to allow patient to discharge home with follow up appointment with AA today at 2: 30 and then with mental health in am. Advised about his condition an avoidance of his substances of abuse. DISPOSITION: Home. DIET: Regular. ACTIVITY: At liberty. CODE STATUS: FULL. FOLLOW UP: with treating psychiatric service Mo Manzano DO
[2017-10-25 13:01] VITALS: BP 130/98
== END 2017-10-25 14:02 | disposition home or self-care (01) ==
LOC: ED 10:59 → ICU 11:51 → INTOOBSV 11:51
PROVIDERS: ADMIT Internal Medicine Critical Care Medicine; ATTEND Internal Medicine Critical Care Medicine
DX: G92 Toxic encephalopathy (principal); T50.992A Poisoning by other drugs, medicaments and biological substances, intentional self-harm, initial encounter; Y92.9 Unspecified place or not applicable; F17.210 Nicotine dependence, cigarettes, uncomplicated; Z76.5 Malingerer [conscious simulation]; F99 Mental disorder, not otherwise specified; R41.0 Disorientation, unspecified
CPT/HCPCS: 36415; 80048; 80053; 80307; 80320; 80329; 81003; 83605; 83735; 84443; 84484; 85025; 85610; 85730; 87641; 93005; 96374; 96375; 99283; A9270-GY; G0378; G0480; J2060; J3360; J3475

== ENCOUNTER 2017-10-25 18:32 | Inpatient (IN) | payer OTHER ==
[2017-10-25 19:03] LABS: ABS Basophils 0 10^3/ul (0-0.2); ABS Eosinophils 0.3 10^3/ul (0-0.6); ABS Lymphocytes 1.9 10^3/ul (1.0-4.8); ABS Monocytes 0.7 10^3/ul (0-0.8); ABS Neutrophils 6.6 10^3/ul (1.5-7.7); ABS Nucleated RBC 0 10^3/ul; Hematocrit 44 % (42-52); Hemoglobin 15.3 g/dl (14.0-18.0); Lymphocyte % 20.1 % (25-47); Mean Corpuscular HGB Conc 35 g/dl (31-36); Mean Corpuscular Hemoglobin 32 pg (27-31); Mean Corpuscular Volume 91 fL (80-94); Mean Platelet Volume 8.5 um3 (7.4-10.4); Nucleated Red Blood Cells % 0.1; Platelet Count 193 10^3/ul (150-450); Red Blood Count 4.85 10^6/ul (4.0-5.4); Red Cell Distribution Width 13 % (10.5-15); White Blood Count 9.6 10^3/ul (3.5-10.8)
[2017-10-25 19:23] LABS: EGFR Non-African American 80.3 (>60)
[2017-10-25 19:27] LABS: Urine Appearance Clear; Urine Blood Negative (Negative); Urine Color Yellow; Urine Ketones Negative (Negative); Urine Protein Negative (Negative); Urine Specific Gravity 1.011 (1.010-1.030); Urine Urobilinogen Negative (Negative)
--- NOTE | 2017-10-25 21:47 | RAD ---
INDICATION: Overdose COMPARISON: Chest x-ray dated May 08, 2014 TECHNIQUE: Single AP portable view of the chest was obtained. FINDINGS: Image quality is compromised due to the relative inferiority of a portable chest x-ray. The heart and mediastinum exhibit normal size and contour. The lungs are grossly clear. There is no evidence of a large pleural effusion. Visualized bones are normal for the patient's age. IMPRESSION: No radiographic evidence for acute cardiopulmonary abnormality on this portable chest x-ray.
--- NOTE | 2017-10-25 21:58 | ED ---
Mili Brunner Thomas, scribed for Brayan Haider MD on 10/25/17 at 1902 . Complex/Multi-Sys Presentation - HPI Summary HPI Summary: The patient is a 27 year old male brought in by ambulance with an overdose of Corcidin (dexamethasone and chlorpheniramine maleate). The patient reports that he had five boxes of Corcidin, and each box has 16 pills. It is unclear when he took the pills. The patient only sometimes responds to voice, so I am unable to get a history from him beyond how many pills he took. - History Of Current Complaint Chief Complaint: EDOverdose Hx Obtained From: Patient Hx From Patient Unobtainable Due To: Altered Mental Status Onset/Duration: Still Present Timing: Constant Severity Currently: Severe Location: Negative Character: Unable To Describe - stuporous Associated Signs And Symptoms: Positive: Other - Stuporous - Allergies/Home Medications Allergies/Adverse Reactions: Allergies Allergy/AdvReac Type Severity Reaction Status Date / Time No Known Allergies Allergy Verified 10/23/17 19:21 PMH/Surg Hx/FS Hx/Imm Hx Endocrine/Hematology History: Reports: Hx Thyroid Disease - Hypothyroidism Denies: Hx Anticoagulant Therapy, Hx Blood Disorders, Hx Blood Transfusions, Hx Bone Marrow Disease, Hx Diabetes, Hx Systemic Lupus Erythematosus, Hx Sickle Cell Disease, Hx Anemia, Hx Unexplained Bleeding, Other Endocrine/Hematological Disorders Cardiovascular History: Reports: Hx Hypertension Denies: Hx Aneurysm, Hx Angina, Hx Angioplasty, Hx Auto Implanted Cardiovert Defib, Hx Cardiac Arrest, Hx Cardiomegaly, Hx Congenital Heart Disease, Hx Congestive Heart Failure, Hx Coronary Artery Disease, Hx Deep Vein Thrombosis, Hx Embolism, Hx Hypercholesterolemia, Hx Hypotension, Hx Pacemaker/ICD, Hx Peripheral Vascular Disease, Hx Rheumatic Fever, Hx Syncope, Hx Valvular Heart Disease, Other Cardiovascular Problems/Disorders Respiratory History: Reports: Hx Pneumonia, Hx Seasonal Allergies Denies: Hx Asthma, Hx Chronic Bronchitis, Hx Chronic Obstructive Pulmonary Disease (COPD), Hx Cystic Fibrosis, Hx Lung Cancer, Hx Pleural Effusion, Hx Pulmonary Edema, Hx Pulmonary Embolism, Hx Sleep Apnea, Other Respiratory Problems/Disorders GI History: Reports: Hx Ulcer Denies: Hx Cirrhosis, Hx Crohn's Disease, Hx Diverticulosis, Hx Gall Bladder Disease, Hx Gastroesophageal Reflux Disease, Hx Gastrointestinal Bleed, Hx Hiatal Hernia, Hx Irritable Bowel, Hx Jaundice, Hx Obstructive Bowel, Hx Ileostomy, Hx Pyloric Stenosis, Other GI Disorders History: Denies: Hx Acute Renal Failure, Hx Benign Prostatic Hyperplasia, Hx Chronic Renal Failure, Hx Dialysis, Hx Kidney Infection, Hx Kidney Stones, Hx Renal Disease, Other Problems/Disorders Musculoskeletal History: Denies: Hx Arthritis, Hx Back Problems, Hx Bursitis, Hx Congenital Bone Abnormalities, Hx Fibromyalgia, Hx Gout, Hx Orthopedic Injury, Hx Osteoporosis, Hx Scoliosis, Hx Tendonitis, Other Musculoskeletal History Sensory History: Reports: Hx Contacts or Glasses Denies: Hx Cataracts, Hx Eye Injury, Hx Eye Prosthesis, Hx Glaucoma, Hx Legally Blind, Hx Macular Degeneration, Hx Vision Problem, Hx Hearing Aid, Other Sensory Impairments Opthamlomology History: Reports: Hx Contacts or Glasses Denies: Hx Cataracts, Hx Eye Injury, Hx Eye Prosthesis, Hx Glaucoma, Hx Legally Blind, Hx Macular Degeneration, Hx Vision Problem, Other Sensory Impairments Neurological History: Reports: Hx Headaches, Hx Seizures Denies: Hx Dementia, Hx Developmental Delay, Hx Migraine, Hx Nerve Disease, Hx Spinal Cord Injury, Hx Transient Ischemic Attacks (TIA), Other Neuro Impairments/Disorders Psychiatric History: Reports: Hx Anxiety, Hx Depression, Hx Post Traumatic Stress Disorder, Hx Inpatient Treatment, Hx Community Mental Health Tx, Hx Bipolar Disorder, Hx of Violent Episodes Against Others, Hx Substance Abuse, Other Psychiatric Issues/Disorders Denies: Hx Attention Deficit Hyperactivity Disorder, Hx Eating Disorder, Hx Panic Disorder, Hx Schizophrenia, Hx Suicide Attempt - Surgical History Surgery Procedure, Year, and Place: none - Immunization History Date of Tetanus Vaccine: Unknown Date of Influenza Vaccine: None Infectious Disease History: No Infectious Disease History: Reports: Hx Hepatitis - Hep C Denies: Hx Clostridium Difficile, Hx Human Immunodeficiency Virus (HIV), Hx of Known/Suspected MRSA, Hx Shingles, Hx Tuberculosis, Hx Known/Suspected VRE, Hx Known/Suspected VRSA, History Other Infectious Disease, Traveled Outside the [place] in Last 30 Days - Family History Known Family History: Positive: Other - cancer Negative: Renal Disease - Social History Alcohol Use: Weekly Alcohol Amount: currently intoxicated Hx Substance Use: Yes Substance Use Type: 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 Substance Use Comment - Amount & Last Used: Coricidin Hx Tobacco Use: Yes Smoking Status (MU): Light Every Day Tobacco Smoker Type: Cigarettes Have You Smoked in the Last Year: Yes Review of Systems - ROS Summary Review of Systems Summary: LEVEL 5 CAVEAT: ROS limited by stuporous patient Positive: Other - Ingestion of 80 pills All Other Systems Reviewed And Are Negative: No Physical Exam - Summary Physical Exam Summary: Appearance: The patient is well-nourished in no acute distress and in no acute pain. Skin: The skin is warm and dry and skin color reflects adequate perfusion. HEENT: The head is normocephalic and atraumatic. The pupils are equal and reactive. The conjunctivae are clear and without drainage. Nares are patent and without drainage. Mouth reveals moist mucous membranes and the throat is without erythema and exudate. The external ears are intact. The ear canals are patent and without drainage. The tympanic membranes are intact. Neck: the neck is supple with full range of motion and non-tender. There are no carotid bruits. There is no neck vein distension. Respiratory: Chest is non-tender. Lungs are clear to auscultation and breath sounds are symmetrical and equal. Cardiovascular: Heart is regular rate and rhythm. There is no murmur or rub auscultated. There is no peripheral edema and pulses are symmetrical and equal. Abdomen: The abdomen is soft and non-tender. There are normal bowel sounds heard in all four quadrants and there is no organomegaly palpated. Musculoskeletal: There is no back tenderness noted. Extremities are non-tender with full range of motion. There is good capillary refill. There is no peripheral edema or calf tenderness elicited. Neurological: Patient is alert and oriented to person, place and time. He is stuporous and sometimes responds to voice. The patient has symmetrical motor strength in all four extremities. Cranial nerves are grossly intact. Deep tendon reflexes are symmetrical and equal in all four extremities. LEVEL 5 CAVEAT: Physical Exam limited by stuporous patient Triage Information Reviewed: Yes Vital Signs On Initial Exam: Initial Vitals Temp Pulse Resp BP Pulse Ox 100.0 F 125 14 125/95 93 10/25/17 18:39 10/25/17 18:39 10/25/17 18:39 10/25/17 18:39 10/25/17 18:39 Vital Signs Reviewed: Yes Completion Of Physical Exam Limited Due To: Level 5 Diagnostics - Vital Signs Vital Signs Temp Pulse Resp BP Pulse Ox 10/25/17 18:41 108 26 130/97 91 10/25/17 18:40 107 17 91 05/09/18 18:39 100.0 F 125 14 125/95 93 - Laboratory Lab Results: Lab Results 10/25/17 10/25/17 10/25/17 Range/Units 18:51 18:51 18:51 WBC 9.6 (3.5-10.8) 10^3/ul RBC 4.85 (4.0-5.4) 10^6/ul Hgb 15.3 (14.0-18.0) g/dl Hct 44 (42-52) % MCV 91 (80-94) fL MCH 32 H (27-31) pg MCHC 35 (31-36) g/dl RDW 13 (10.5-15) % Plt Count 193 (150-450) 10^3/ul MPV 8.5 (7.4-10.4) um3 Neut % (Auto) 68.8 (38-83) % Lymph % (Auto) 20.1 L (25-47) % Maverick % (Auto) 7.7 H (0-7) % Eos % (Auto) 3.0 (0-6) % Baso % (Auto) 0.4 (0-2) % Absolute Neuts (auto) 6.6 (1.5-7.7) 10^3/ul Absolute Lymphs (auto) 1.9 (1.0-4.8) 10^3/ul Absolute Monos (auto) 0.7 (0-0.8) 10^3/ul Absolute Eos (auto) 0.3 (0-0.6) 10^3/ul Absolute Basos (auto) 0 (0-0.2) 10^3/ul Absolute Nucleated RBC 0 10^3/ul Nucleated RBC % 0.1 Sodium 138 L (139-145) mmol/L Potassium 3.5 (3.5-5.0) mmol/L Chloride 105 (101-111) mmol/L Carbon Dioxide 23 (22-32) mmol/L Anion Gap 10 (2-11) mmol/L BUN 18 (6-24) mg/dL Creatinine 1.10 (0.67-1.17) mg/dL Est GFR ( Amer) 103.3 (>60) Est GFR (Non-Af Amer) 80.3 (>60) BUN/Creatinine Ratio 16.4 (8-20) Glucose 71 (70-100) mg/dL Lactic Acid 0.8 (0.5-2.0) mmol/L Calcium 9.8 (8.6-10.3) mg/dL Magnesium 2.1 (1.9-2.7) mg/dL Total Bilirubin 0.40 (0.2-1.0) mg/dL AST 24 (13-39) U/L ALT 24 (7-52) U/L Alkaline Phosphatase 48 (34-104) U/L Total Protein 7.5 (6.4-8.9) g/dL Albumin 4.8 (3.2-5.2) g/dL Globulin 2.7 (2-4) g/dL Albumin/Globulin Ratio 1.8 (1-3) Urine Color Urine Appearance Urine pH (5-9) Ur Specific Papillion (1.010-1.030) Urine Protein (Negative) Urine Ketones (Negative) Urine Blood (Negative) Urine Nitrate (Negative) Urine Bilirubin (Negative) Urine Urobilinogen (Negative) Ur Leukocyte Esterase (Negative) Urine Glucose (Negative) Salicylates < 2.50 (<30) mg/dL Urine Opiates Screen (None Detect) Acetaminophen < 15 mcg/mL Ur Barbiturates Screen (None Detect) Valproic Acid < 13.0 L (50-100) mcg/mL Ur Phencyclidine Scrn (None Detect) Ur Amphetamines Screen (None Detect) U Benzodiazepines Scrn (None Detect) Urine Cocaine Screen (None Detect) U Cannabinoids Screen (None Detect) Serum Alcohol < 10 (<10) mg/dL 10/25/17 10/25/17 Range/Units 19:13 19:13 WBC (3.5-10.8) 10^3/ul RBC (4.0-5.4) 10^6/ul Hgb (14.0-18.0) g/dl Hct (42-52) % MCV (80-94) fL MCH (27-31) pg MCHC (31-36) g/dl RDW (10.5-15) % Plt Count (150-450) 10^3/ul MPV (7.4-10.4) um3 Neut % (Auto) (38-83) % Lymph % (Auto) (25-47) % Maverick % (Auto) (0-7) % Eos % (Auto) (0-6) % Baso % (Auto) (0-2) % Absolute Neuts (auto) (1.5-7.7) 10^3/ul Absolute Lymphs (auto) (1.0-4.8) 10^3/ul Absolute Monos (auto) (0-0.8) 10^3/ul Absolute Eos (auto) (0-0.6) 10^3/ul Absolute Basos (auto) (0-0.2) 10^3/ul Absolute Nucleated RBC 10^3/ul Nucleated RBC % Sodium (139-145) mmol/L Potassium (3.5-5.0) mmol/L Chloride (101-111) mmol/L Carbon Dioxide (22-32) mmol/L Anion Gap (2-11) mmol/L BUN (6-24) mg/dL Creatinine (0.67-1.17) mg/dL Est GFR ( Amer) (>60) Est GFR (Non-Af Amer) (>60) BUN/Creatinine Ratio (8-20) Glucose (70-100) mg/dL Lactic Acid (0.5-2.0) mmol/L Calcium (8.6-10.3) mg/dL Magnesium (1.9-2.7) mg/dL Total Bilirubin (0.2-1.0) mg/dL AST (13-39) U/L ALT (7-52) U/L Alkaline Phosphatase (34-104) U/L Total Protein (6.4-8.9) g/dL Albumin (3.2-5.2) g/dL Globulin (2-4) g/dL Albumin/Globulin Ratio (1-3) Urine Color Yellow Urine Appearance Clear Urine pH 5.0 (5-9) Ur Specific Papillion 1.011 (1.010-1.030) Urine Protein Negative (Negative) Urine Ketones Negative (Negative) Urine Blood Negative (Negative) Urine Nitrate Negative (Negative) Urine Bilirubin Negative (Negative) Urine Urobilinogen Negative (Negative) Ur Leukocyte Esterase Negative (Negative) Urine Glucose Negative (Negative) Salicylates (<30) mg/dL Urine Opiates Screen Presumptive positive A (None Detect) Acetaminophen mcg/mL Ur Barbiturates Screen None detected (None Detect) Valproic Acid (50-100) mcg/mL Ur Phencyclidine Scrn Presumptive positive A (None Detect) Ur Amphetamines Screen None detected (None Detect) U Benzodiazepines Scrn Presumptive positive A (None Detect) Urine Cocaine Screen None detected (None Detect) U Cannabinoids Screen None detected (None Detect) Serum Alcohol (<10) mg/dL Result Diagrams: 10/25/17 18:51 10/25/17 18:51 Lab Statement: Any lab studies that have been ordered have been reviewed, and results considered in the medical decision making process. - EKG 18:45 Cardiac Rate: Tachycardia EKG Rhythm: Sinus Tachycardia - at 108 BPM EKG Interpretation: Prolonged QTc. Complex Multi-Symp Course/Dx Course Of Treatment: Fernie admits to another potentially toxic dose of coricidin which he must have taken shortly after discharge today. His QTc is over 500 and I asked the hospitalists to watch him overnight. - Diagnoses Provider Diagnoses: Overdose - Physician Notifications Discussed Care Of Patient With: Estiven Healy Time Discussed With Above Provider: 20:10 Instructed by Provider To: Admit As Inpatient Discharge - Sign-Out/Discharge Documenting (check all that apply): Discharge/Admit/Transfer - Discharge Plan Condition: Fair Disposition: ADMITTED TO [facility] - Billing Disposition and Condition Condition: FAIR [place] [facility] [place] The documentation as recorded by the Mili fournier Thomas accurately reflects the service I personally performed and the decisions made by me, Brayan Haider MD.
[2017-10-25] MEDS: Divalproex DR TAB(*) 500 MG PO SCH (22:03)
[2017-10-25] MEDS: Benztropine TAB* 1 MG PO SCH (22:03)
[2017-10-25] MEDS: LORazepam INJ* 2 MG/ML 1 ML VIAL IV PUSH PRN (22:38)
[2017-10-25] MEDS ORDERED: Mouth Piece, Nicotine* 1 EACH CARTRIDGE INH PRN (23:07)
[2017-10-26] MEDS: NS 0.9% 1000 ML* 1,000 ML IV SCH ×3 (03:27→14:48)
--- NOTE | 2017-10-26 04:11 | CONS ---
CONSULTATION REPORT: DATE OF CONSULT: 10/25/17 SUPERVISING PSYCHIATRIST: Dr. Jace German. ATTENDING PHYSICIAN: Dr. Manzano. CONSULTING PROVIDER: Indiana Patrick NP. REASON FOR CONSULT: Psychiatry was asked to consult due to the patient's overdose on cold medicine Coricidin. PSYCHIATRIC HISTORY: Fernie is a 27-year-old white male, [place] [facility] for Coricidin [place]. The patient has had multiple failed attempts at outpatient substance use and mental health treatment, nonadherence to medications, and multiple failed attempts at substance use rehab. The patient presented to the emergency department on 10/23/17 with symptoms of overdose of Coricidin. He denied suicidality. He was evaluated by Mental Health and this real estate underwriter and deemed appropriate for discharge. The patient reported he had already set up appointments at [facility] and [facility]. He returned to the emergency department within hours due to overuse of Coricidin. He was admitted to the ICU for telemetry monitoring as the telemetry floor was full. The past 2 years, the patient has been living in the [facility], reports he has been involved in [facility] with a onsite case manager of Zhane Corbett. In the past 2 years, his pattern has been unchanged including multiple inpatient rehabs and outpatient mental health and substance use services. Today, the patient states , "this won't happen again." He states that he wants to be discharged and he has already called [facility] as well as [facility] to reestablish care in [facility]. He is avoidant and guarded when I asked why he is returning to the area from [place]. He states that he wanted to come home closer to his family, his mother lives in the [facility]. He states that he has had voices heard in the past, but denies currently and denies psychotic delusions. He states that he is hoping to identify employment and housing in [facility] and states knowledge about various service providers in the area. The patient explains many times how he had been sober the past 6-1/2 months until 2 days ago. The patient continues to deny suicidal ideation and he continues to deny urges to use substances again. We utilized motivational interviewing as well as challenging thoughts. The patient identifies that he tries to mentally "escape" when using Coricidin and has gained a tolerance of up to 64 tabs at a time. PAST PSYCHIATRIC HISTORY: As stated above, Fernie has a history of opiate and Coricidin dependence with multiple ED evaluations and [facility] hospitalizations. He has multiple failed referrals to substance use treatment, and he has a history of requesting admission with complaints of auditory hallucinations and suicidal ideation in the setting of Coricidin use. He also has a history of recanting mental health symptoms and identifying that he said these things in order to be admitted to the hospital. The patient has been hospitalized at [facility]. He has eloped on his way to rehab or signed himself out during an intake or requested discharge during admission to previous rehab facility. He has been treated several times for rhabdomyolysis caused by a substance abuse. He has been treated at [facility] and more recently at [facility]. He has been diagnosed in the past with opiate dependence, Coricidin dependence, substance-induced mood disorder, malingering, and personality disorder. PAST MEDICATION HISTORY: 1. Trials of Abilify. 2. Risperidone. 3. Olanzapine. 4. Sertraline. 5. Citalopram. 6. Fluoxetine. 7. Trazodone. 8. Wellbutrin. 9. Naltrexone. 10. Suboxone. 11. Topamax. 12. Prazosin. 13. Palisade. 14. Antabuse. 15. Benzodiazepine. 16. Stimulants. PAST MEDICAL HISTORY: Remarkable for hepatitis C, hypothyroidism, and he takes levothyroxine 150 mcg. PAST SUICIDE AND HOMICIDE HISTORY: The patient has a history of suicide attempts and prior suicidal behaviors. He has been admitted in the ICU several times after accidental drug overdose. LEGAL HISTORY: The patient has a history of arrest on charges for petty aguirre and has [facility]. There is no noted history of violence or aggression. FAMILY HISTORY: Denies. SUBSTANCE USE HISTORY: The patient has a history of IV opiate use, at the peak he was using 5 to 6 packs heroin per day. His drug of choice is over-the- counter medication Coricidin. His urine drug screen is positive for cannabis and cocaine. The patient reports a history of alcohol use, denies currently, and smokes approximately half pack a day. MENTAL STATUS EXAM: The patient is a moderately built white male, who appears as stated age. He is sitting on ICU hospital bed and eating his lunch. He has broken glasses that have a taped sunglass frame on the left hand side. He is wearing a hospital gown. No psychomotor abnormal activity noted. He is alert and oriented x3. His eye contact is poor. His mood is euthymic. Affect is flat. Thought process is linear and goal directed. He denies AV hallucinations. He denies delusions. He denies suicidal ideation or passive wish. He reports plan to utilize [facility] for help with housing. Insight and judgment are fair. Impulse control is tenuous. Alert and oriented x3. Fund of knowledge is adequate. DIAGNOSES: Juncos I: Coricidin dependence, polysubstance use disorder. Juncos II: Cluster B personality traits. Juncos III: Hepatitis C and hypothyroidism. ASSESSMENT AND PLAN: Fernie is a 27-year-old white male with history of polysubstance use disorder who states intent to refrain from substances. He has a reported history of 6 months of sobriety before a recent relapse and is encouraged to build upon those skills. The patient denies need for admission to the behavioral services unit and would prefer to set up outpatient services, which he has attempted to do on his own. This real estate underwriter called [facility] and set the patient to have an intake this afternoon, 10/25/17, and he will meet with intake person at [facility] tomorrow, at 10 a.m. This information was discussed with Dr. Manzano and the patient' s primary nurse as well as the geriatric social work professor Vero Ramírez who has been working diligently on his case. No further recommendations at this time. I have reviewed this case with my supervising psychiatrist. [place] PATRICK, SANDRA [id number]/CPS #: [id number] SOLO
[2017-10-26] MEDS: Levothyroxine TAB* 150 MCG TAB PO SCH (06:07)
[2017-10-26] MEDS: Mouth Piece, Nicotine* 1 EACH CARTRIDGE INH PRN (06:07)
[2017-10-26] MEDS: Nicotine Inhaler* 10 MG AMP INH PRN ×4 (06:08→16:51)
[2017-10-26 06:43] LABS: ABS Basophils 0 10^3/ul (0-0.2); ABS Eosinophils 0.3 10^3/ul (0-0.6); ABS Lymphocytes 2.3 10^3/ul (1.0-4.8); ABS Monocytes 0.7 10^3/ul (0-0.8); ABS Neutrophils 5.3 10^3/ul (1.5-7.7); ABS Nucleated RBC 0 10^3/ul; Eosinophil % 3.4 % (0-6); Hematocrit 43 % (42-52); Hemoglobin 14.7 g/dl (14.0-18.0); Mean Corpuscular HGB Conc 34 g/dl (31-36); Mean Corpuscular Hemoglobin 31 pg (27-31); Mean Corpuscular Volume 91 fL (80-94); Mean Platelet Volume 8.8 um3 (7.4-10.4); Nucleated Red Blood Cells % 0.1; Platelet Count 170 10^3/ul (150-450); Red Blood Count 4.73 10^6/ul (4.0-5.4); Red Cell Distribution Width 13 % (10.5-15); White Blood Count 8.6 10^3/ul (3.5-10.8)
[2017-10-26 06:49] LABS: INR 1.17 (0.77-1.02)
--- NOTE | 2017-10-26 06:50 | HP ---
HISTORY AND PHYSICAL: DATE OF ADMISSION: 10/25/17 PRIMARY CARE PROVIDER: None. ATTENDING PHYSICIAN WHILE IN THE HOSPITAL: Polly Ozuna MD * (report dictated by Estiven Millan NP) CHIEF COMPLAINT: Overdose. HISTORY OF PRESENTING ILLNESS: Mr. Angeles is a 27-year-old male patient with extensive history of polysubstance abuse. He has a history of depression, hepatitis C, hypothyroidism, and also carries history of psychiatric disorder. He comes into the ED today. He was just literally discharged about 6 hours ago for Coricidin overdose from the ICU. He went home and he says he took 80 pills because he just wanted to get away from it all. He says he is not suicidal. I asked him again if he was trying to take his life, he says no; he just states that he needed to get away from it all. He does admit taking 80 pills. He denied taking any other substances. He denies having any chest pain or shortness of breath. Denies having any abdominal pain. He denies having any nausea. He says that he is not feeling more depressed and he says he has a longstanding history of doing several overdoses with Coricidin previously. He came into the ER, he had low-grade fever and was tachycardic, he was requiring O2, he was drowsy, he was very restless, and because of these findings, we were asked to evaluate for admission. PAST MEDICAL HISTORY: Significant for: 1. Polysubstance abuse. 2. Depression. 3. Psychiatric disorders. 4. Hepatitis C. 5. Hypothyroidism. PAST SURGICAL HISTORY: Denied. HOME MEDICATIONS: Include: 1. Thiamine 100 mg p.o. daily. 2. Zoloft 50 mg p.o. daily. 3. Nicotine patch 1 patch transdermally daily. 4. Multivitamin 1 tablet daily. 5. Synthroid 150 mcg p.o. daily. 6. Folic acid 1 mg daily. 7. Depakote 500 mg p.o. b.i.d. 8. Cogentin 1 mg p.o. b.i.d. ALLERGIES TO MEDICATIONS: Include no known drug allergies. FAMILY HISTORY: Both of his parents are healthy. SOCIAL HISTORY: He does not smoke, does not drink. Denied using cocaine or heroin. He does admit to having overdoses with [id number] medications. REVIEW OF SYSTEMS: There is no documented fever. Denied having any significant weight change. There is no double vision. There is no ear discharge. Denied any rhinorrhea. No sore throat. No thyroid enlargement. Denies having any chest pain. There was no orthopnea. No nocturnal dyspnea. No abdominal pain. No nausea. No vomiting. No dysuria. No frequency. No seizure. No loss of consciousness. No pruritus and no skin ulcerations. Review of 14 systems completed, all others negative. PHYSICAL EXAMINATION GENERAL: At this time, Mr. Angeles is a 27-year-old male patient, sitting in the ED stretcher. He is well nourished, well developed, does not appear to be in any acute distress. VITAL SIGNS: Blood pressure 139/98, pulse 107, respirations 14, O2 sat 91%, temperature was 100. HEENT: Head atraumatic. Eyes: Pupils were dilated, were reactive. He did have nystagmus. Sclerae are anicteric and not pale. Throat: Oral mucosa appears to be dry. No oropharyngeal erythema. NECK: Supple. LUNGS: Clear to auscultation bilaterally. No wheezes, rales, or rhonchi. HEART: Sounds S1, S2. He is tachycardic. ABDOMEN: Soft, flat, nontender. Bowel sounds were present. EXTREMITIES: Pulses were 2+ throughout. He is moving all 4 extremities with 5/ 5 strength. NEUROLOGICAL: He is alert, he is awake, drowsy. He is oriented, he is answering questions. He is oriented x3. He has no gross focal deficits. SKIN: Intact. DIAGNOSTIC STUDIES/LAB DATA: WBC 9.6, RBC of 4.85, hemoglobin 15.3, hematocrit of 44, platelet count of 193. Sodium 138, potassium 3.5, chloride 105, bicarb 23, BUN 18, creatinine 1.10, glucose 71, lactate 0.8, calcium 9.8. Total bili 0.4, AST 24, ALT 24, alk phos 48, albumin of 4.8. Chest x-ray is pending. He did have an EKG obtained today, which revealed sinus tachycardia at the rate of 108. He did have QTc of 508. He had no ST elevations or T-wave inversions. The QTc is longer than his previous EKG, 491. Old medical records were reviewed. ASSESSMENT AND PLAN: Mr. Angeles is a 27-year-old with complaints of Coricidin overdose. We were asked to evaluate for admission. He will be admitted under observation status for: 1. Coricidin overdose. Again, at this point, we will go ahead and continue with supportive care, hydrate the patient, p.r.n. benzos for anxiety. I will allow the drug effects to wear off. He did not receive charcoal here in the ED. We will monitor his EKG, place him on telemetry. We will place him in the ICU, and we will get a psychiatric consult. Because of his frequent overdoses, again, we will get Psych involved. 2. History of depression. Continue meds as prescribed. 3. Hypothyroidism. Continue his Synthroid. 4. History of hepatitis C. Continue his current medical regimen. 5. DVT prophylaxis: He will be placed on SCDs. I have ordered SCDs. 6. Hypoxia. This could be secondary to the drowsiness. I am concerned he may have aspirated. I am getting a chest x-ray. We will monitor him. Should he spike high fevers, have a low threshold for antibiotics, I am holding off at this point. 7. Code Status: Full code. 8. Fluids, electrolytes, and nutrition. He is n.p.o. He will have normal saline at 175 an hour. TIME SPENT: Time spent on the admission 60 minutes, greater than half the time spent [id number] with the patient obtaining my history and physical, other half time was spent going over the plan of care with the patient and implementing the plan of care. I did discuss the plan of care with my attending, Dr. Ozuna; she is in agreement. ESTIVEN MILLAN, SANDRA [id number]/[facility] #: [id number] SOLO
[2017-10-26] MEDS: LORazepam INJ* 2 MG/ML 1 ML VIAL IV PUSH PRN ×2 (07:00→14:22)
[2017-10-26 07:02] LABS: EGFR Non-African American 91.7 (>60)
--- NOTE | 2017-10-26 08:31 | PN ---
Subjective Date of Service: 10/26/17 Interval History: Patient seen and examined. Awake, no complaints. Denies pain, no fever or chills , no headache, no SOB, no n/v. States he is hungry, 1:[address]. States no SI, no plans to hurt himself, states he "fell off the wagon" and knows he "needs to get back on". Objective Active Medications: Benztropine Mesylate (Cogentin Tab*) 1 mg PO BID [facility] Last Admin: 10/25/17 22:03 Dose: 1 mg Device (Nicotine Mouth Piece*) 1 each INH .USE WITH NICOTROL PRN PRN Reason: CRAVING Last Admin: 10/26/17 06:07 Dose: 1 each Divalproex Sodium (Depakote Dr Tab(*)) 500 mg PO BID [facility] Last Admin: 10/25/17 22:03 Dose: 500 mg Folic Acid (Folvite Tab*) 1 mg PO DAILY [facility] Sodium Chloride (Ns 0.9% 1000 Ml*) 1,000 mls @ 175 mls/hr IV PER RATE [facility] Last Admin: 10/26/17 03:27 Dose: 175 mls/hr Levothyroxine Sodium (Synthroid Tab*) 150 mcg PO 0600 [facility] Last Admin: 10/26/17 06:07 Dose: 150 mcg Lorazepam (Ativan Inj*) 1 mg IV PUSH Q6H PRN PRN Reason: ANXIETY Last Admin: 10/26/17 07:00 Dose: 1 mg Nicotine (Nicotine Inhaler*) 10 mg INH Q2H PRN PRN Reason: CRAVING Last Admin: 10/26/17 06:08 Dose: 10 mg Sertraline HCl (Zoloft*) 50 mg PO DAILY [facility] Thiamine HCl (Vitamin B-1 Tab*) 100 mg PO DAILY [facility] Vital Signs - 8 hr 10/26/17 10/26/17 10/26/17 00:30 01:00 01:01 Temperature 99 F Pulse Rate 67 66 68 Respiratory 18 18 19 Rate Blood Pressure 116/71 111/77 (mmHg) O2 Sat by Pulse 94 97 97 Oximetry 10/26/17 10/26/17 10/26/17 01:30 02:00 02:01 Temperature 99 F Pulse Rate 65 68 65 Respiratory 18 18 17 Rate Blood Pressure 107/72 111/71 (mmHg) O2 Sat by Pulse 97 98 98 Oximetry 10/26/17 10/26/17 10/26/17 02:30 03:00 03:01 Temperature 99.2 F Pulse Rate 62 63 63 Respiratory 17 17 18 Rate Blood Pressure 109/69 108/69 (mmHg) O2 Sat by Pulse 98 98 98 Oximetry 10/26/17 10/26/17 10/26/17 03:27 03:30 04:00 Temperature 98.8 F Pulse Rate 71 65 Respiratory 19 18 Rate Blood Pressure 116/82 109/61 (mmHg) O2 Sat by Pulse 97 99 94 Oximetry 10/26/17 10/26/17 10/26/17 04:01 04:30 05:00 Temperature 99 F Pulse Rate 65 62 59 Respiratory 17 16 16 Rate Blood Pressure 104/64 110/74 (mmHg) O2 Sat by Pulse 94 94 95 Oximetry 10/26/17 10/26/17 10/26/17 05:01 06:00 07:00 Temperature 98.2 F Pulse Rate 61 58 Respiratory 19 21 21 Rate Blood Pressure (mmHg) O2 Sat by Pulse 95 99 Oximetry Oxygen Devices in Use Now: None Appearance: Alert, NAD Eyes: No Scleral Icterus, PERRLA Ears/Nose/Mouth/Throat: NL Teeth, Lips, Gums Neck: NL Appearance and Movements; NL JVP, Trachea Midline Respiratory: Symmetrical Chest Expansion and Respiratory Effort, Clear to Auscultation Cardiovascular: NL Sounds; No Murmurs; No JVD, No Edema Abdominal: NL Sounds; No Tenderness; No Distention Neurological: Alert and Oriented x 3 Nutrition: Taking PO's Result Diagrams: 10/26/17 06:00 10/26/17 06:00 Additional Lab and Data: Lab Results 10/25/17 10/25/17 10/25/17 Range/Units 18:51 18:51 18:51 WBC 9.6 (3.5-10.8) 10^3/ul RBC 4.85 (4.0-5.4) 10^6/ul Hgb 15.3 (14.0-18.0) g/dl Hct 44 (42-52) % MCV 91 (80-94) fL MCH 32 H (27-31) pg MCHC 35 (31-36) g/dl RDW 13 (10.5-15) % Plt Count 193 (150-450) 10^3/ul MPV 8.5 (7.4-10.4) um3 Neut % (Auto) 68.8 (38-83) % Lymph % (Auto) 20.1 L (25-47) % [place] % (Auto) 7.7 H (0-7) % Eos % (Auto) 3.0 (0-6) % Baso % (Auto) 0.4 (0-2) % Absolute Neuts (auto) 6.6 (1.5-7.7) 10^3/ul Absolute Lymphs (auto) 1.9 (1.0-4.8) 10^3/ul Absolute Monos (auto) 0.7 (0-0.8) 10^3/ul Absolute Eos (auto) 0.3 (0-0.6) 10^3/ul Absolute Basos (auto) 0 (0-0.2) 10^3/ul Absolute Nucleated RBC 0 10^3/ul Nucleated RBC % 0.1 Sodium 138 L (139-145) mmol/L Potassium 3.5 (3.5-5.0) mmol/L Chloride 105 (101-111) mmol/L Carbon Dioxide 23 (22-32) mmol/L Anion Gap 10 (2-11) mmol/L BUN 18 (6-24) mg/dL Creatinine 1.10 (0.67-1.17) mg/dL Est GFR ( Amer) 103.3 (>60) Est GFR (Non-Af Amer) 80.3 (>60) BUN/Creatinine Ratio 16.4 (8-20) Glucose 71 (70-100) mg/dL Lactic Acid 0.8 (0.5-2.0) mmol/L Calcium 9.8 (8.6-10.3) mg/dL Magnesium 2.1 (1.9-2.7) mg/dL Total Bilirubin 0.40 (0.2-1.0) mg/dL AST 24 (13-39) U/L ALT 24 (7-52) U/L Alkaline Phosphatase 48 (34-104) U/L Total Protein 7.5 (6.4-8.9) g/dL Albumin 4.8 (3.2-5.2) g/dL Globulin 2.7 (2-4) g/dL Albumin/Globulin Ratio 1.8 (1-3) Urine Color Urine Appearance Urine pH (5-9) Ur Specific [place] (1.010-1.030) Urine Protein (Negative) Urine Ketones (Negative) Urine Blood (Negative) Urine Nitrate (Negative) Urine Bilirubin (Negative) Urine Urobilinogen (Negative) Ur Leukocyte Esterase (Negative) Urine Glucose (Negative) Salicylates < 2.50 (<30) mg/dL Urine Opiates Screen (None Detect) Acetaminophen < 15 mcg/mL Ur Barbiturates Screen (None Detect) Valproic Acid < 13.0 L (50-100) mcg/mL Ur Phencyclidine Scrn (None Detect) Ur Amphetamines Screen (None Detect) U Benzodiazepines Scrn (None Detect) Urine Cocaine Screen (None Detect) U Cannabinoids Screen (None Detect) Serum Alcohol < 10 (<10) mg/dL 10/25/17 10/25/17 Range/Units 19:13 19:13 WBC (3.5-10.8) 10^3/ul RBC (4.0-5.4) 10^6/ul Hgb (14.0-18.0) g/dl Hct (42-52) % MCV (80-94) fL MCH (27-31) pg MCHC (31-36) g/dl RDW (10.5-15) % Plt Count (150-450) 10^3/ul MPV (7.4-10.4) um3 Neut % (Auto) (38-83) % Lymph % (Auto) (25-47) % [place] % (Auto) (0-7) % Eos % (Auto) (0-6) % Baso % (Auto) (0-2) % Absolute Neuts (auto) (1.5-7.7) 10^3/ul Absolute Lymphs (auto) (1.0-4.8) 10^3/ul Absolute Monos (auto) (0-0.8) 10^3/ul Absolute Eos (auto) (0-0.6) 10^3/ul Absolute Basos (auto) (0-0.2) 10^3/ul Absolute Nucleated RBC 10^3/ul Nucleated RBC % Sodium (139-145) mmol/L Potassium (3.5-5.0) mmol/L Chloride (101-111) mmol/L Carbon Dioxide (22-32) mmol/L Anion Gap (2-11) mmol/L BUN (6-24) mg/dL Creatinine (0.67-1.17) mg/dL Est GFR ( Amer) (>60) Est GFR (Non-Af Amer) (>60) BUN/Creatinine Ratio (8-20) Glucose (70-100) mg/dL Lactic Acid (0.5-2.0) mmol/L Calcium (8.6-10.3) mg/dL Magnesium (1.9-2.7) mg/dL Total Bilirubin (0.2-1.0) mg/dL AST (13-39) U/L ALT (7-52) U/L Alkaline Phosphatase (34-104) U/L Total Protein (6.4-8.9) g/dL Albumin (3.2-5.2) g/dL Globulin (2-4) g/dL Albumin/Globulin Ratio (1-3) Urine Color Yellow Urine Appearance Clear Urine pH 5.0 (5-9) Ur Specific [place] 1.011 (1.010-1.030) Urine Protein Negative (Negative) Urine Ketones Negative (Negative) Urine Blood Negative (Negative) Urine Nitrate Negative (Negative) Urine Bilirubin Negative (Negative) Urine Urobilinogen Negative (Negative) Ur Leukocyte Esterase Negative (Negative) Urine Glucose Negative (Negative) Salicylates (<30) mg/dL Urine Opiates Screen Presumptive positive A (None Detect) Acetaminophen mcg/mL Ur Barbiturates Screen None detected (None Detect) Valproic Acid (50-100) mcg/mL Ur Phencyclidine Scrn Presumptive positive A (None Detect) Ur Amphetamines Screen None detected (None Detect) U Benzodiazepines Scrn Presumptive positive A (None Detect) Urine Cocaine Screen None detected (None Detect) U Cannabinoids Screen None detected (None Detect) Serum Alcohol (<10) mg/dL Assess/Plan/Problems-Billing Assessment: This is a 27 year old male with longstanding hx of polysubstance abuse/dual diagnosis that presented after ingestion of large amount of coricidin after just being discharged from the hospital several hours prior. - Patient Problems (1) Hx of drug overdose Code(s): Z91.89 - OTH PERSONAL RISK FACTORS, NOT ELSEWHERE CLASSIFIED SNOMED Code(s): 772714881 Comment: - presented to ER with coricidin OD with statements of wanting to "end it" - contracted for safety, states he has no plans of hurting himself or others; 1 :1 discontinued - currently medically stable (2) Major depressive disorder Code(s): F32.9 - MAJOR DEPRESSIVE DISORDER, SINGLE EPISODE, UNSPECIFIED SNOMED Code(s): 671650267 Comment: - Psychiatry consulted and following - Continue home meds for now (3) Polysubstance dependence Code(s): F19.20 - OTHER PSYCHOACTIVE SUBSTANCE DEPENDENCE, UNCOMPLICATED SNOMED Code(s): 21479520 Comment: - States he was sober for 6 months prior to events of the last 24 hours - Pending recs from psych today (4) Hepatitis C Comment: - LFTs stable Status and Disposition: While patient is medically stable for DC, proper disposition from psychiatry for treatment options is pending this AM. Will defer to psychiatry.
[2017-10-26] MEDS: Divalproex DR TAB(*) 500 MG PO SCH ×2 (09:07→21:35)
[2017-10-26] MEDS: Benztropine TAB* 1 MG PO SCH ×2 (09:08→21:35)
[2017-10-26] MEDS: Folic Acid TAB* 1 MG PO SCH (09:09)
[2017-10-26] MEDS: Sertraline* 50 MG TAB PO SCH (09:09)
[2017-10-26] MEDS: Thiamine TAB* 100 MG TAB PO SCH (09:09)
--- NOTE | 2017-10-26 20:04 | CONS ---
CONSULTATION REPORT: DATE OF CONSULT: 10/26/17 SUPERVISING PSYCHIATRIST: Jace German MD ATTENDING PROVIDERS: Emili Graham NP and Dr. Manzano. CONSULTING PROVIDER: [place] Patrick NP. REASON FOR CONSULTATION: Psychiatry was asked to consult due to the patient's return and multiple overdoses on cold medicine Coricidin. PSYCHIATRIC HISTORY: Fernie is a 27-year-old white male who has presented to the hospital 3 times in the past 2 days due to overdose on cold medicine Coricidin. He denies suicidal ideation. He reports poor impulse control and need to mentally escape by using Coricidin. The patient was discharged from the ICU yesterday with an appointment to attend the [facility] in the afternoon and an appointment at [facility] for the intake this morning. He returned via EMS around 6:30 in the evening after ingesting Coricidin. Today, the patient continued to assert that he wants to relocate to [facility] to be closer to home. He states that he is safe for discharge and wants to pursue housing and mental health services. This clinical writer, his social welfare administrator and his mother are all present at various times during the interview. The patient has zero to low insight in regards to compulsions to use Coricidin. He initially denies need for substance use rehab and states "I know what I need to do." This clinical writer, his mother and social work informed him of our concern that he is unable to follow through on his intention and that he is not able to make rational choices at this time. It is strongly recommended that he either return to [facility] where he has case management services established or to be referred to a substance use inpatient. The patient initially declined and negates the suggestions. He later agrees to referral to substance use treatment. PAST PSYCHIATRIC HISTORY: Unchanged from yesterday. Please see consultation report on 10/25/17. MENTAL STATUS EXAM: The patient is a moderately built white male who appears stated age. He is sitting on the hospital bed. Upon approach, he is alert and oriented x3. He has improved mental status compared to yesterday. He continues to wear broken glasses that have a taped tooth brush as an arm on the left side. No psychomotor abnormal activity noted. His eye contact is good. His mood is euthymic and affect is congruent. Though process is linear and goal directed. He denies AV hallucinations. He denies delusions. He denies SI or passive wish. Insight and judgment are poor. Impulse control is impaired. Fund of knowledge is adequate. DIAGNOSES: Coricidin dependent polysubstance use disorder, cluster B personality traits, history of hepatitis C and hypothyroidism. ASSESSMENT AND PLAN: Fernie is a 27-year-old white male with a history of polysubstance use disorder and inability to refrain from Coricidin use. The patient has a history of 6 months of sobriety before recent relapse. The patient was discharged yesterday from the ICU and did not follow through on recommendations and appointments that were set up for him in the community. There is not a bed on the behavioral services unit at this time. The patient will remain on medical service, and Psychiatry will consult daily until he is sent to accepting substance use treatment facility. The patient is no longer in need of one-on-one observation status as he is not actively suicidal. This information was discussed with Kandice Graham as well as the zipper repairer, Dr. Manzano , and social welfare administrator Vero Ramírez, who has been working diligently on his case. I have reviewed this case with supervising psychiatrist. [place] PATRICK, SANDRA [id number]/[facility] #: [id number] SOLO
[2017-10-27] MEDS: Levothyroxine TAB* 150 MCG TAB PO SCH (06:12)
[2017-10-27] MEDS: Nicotine Inhaler* 10 MG AMP INH PRN ×4 (07:14→16:57)
[2017-10-27] MEDS: Benztropine TAB* 1 MG PO SCH ×2 (08:43→21:49)
[2017-10-27] MEDS: LORazepam INJ* 2 MG/ML 1 ML VIAL IV PUSH PRN (08:43)
[2017-10-27] MEDS: Divalproex DR TAB(*) 500 MG PO SCH ×2 (08:43→21:49)
[2017-10-27] MEDS: Thiamine TAB* 100 MG TAB PO SCH (08:44)
[2017-10-27] MEDS: Folic Acid TAB* 1 MG PO SCH (08:44)
[2017-10-27] MEDS: Sertraline* 50 MG TAB PO SCH (08:44)
--- NOTE | 2017-10-27 12:11 | PN ---
Subjective Date of Service: 10/27/17 Interval History: No complaints today, Resting in bed, feeling positive about going to rehab, Denies chest pain or shortness of breath. Denies abd pain , n/v/d. Family History: Unchanged from Admission Social History: Unchanged from Admission Past Medical History: Unchanged from Admission Objective Active Medications: Benztropine Mesylate (Cogentin Tab*) 1 mg PO BID [facility] Last Admin: 10/27/17 08:43 Dose: 1 mg Device (Nicotine Mouth Piece*) 1 each INH .USE WITH NICOTROL PRN PRN Reason: CRAVING Last Admin: 10/26/17 06:07 Dose: 1 each Divalproex Sodium (Depakote Dr Tab(*)) 500 mg PO BID [facility] Last Admin: 10/27/17 08:43 Dose: 500 mg Folic Acid (Folvite Tab*) 1 mg PO DAILY [facility] Last Admin: 10/27/17 08:44 Dose: 1 mg Levothyroxine Sodium (Synthroid Tab*) 150 mcg PO 0600 [facility] Last Admin: 10/27/17 06:12 Dose: 150 mcg Lorazepam (Ativan Inj*) 1 mg IV PUSH Q6H PRN PRN Reason: ANXIETY Last Admin: 10/27/17 08:43 Dose: 1 mg Nicotine (Nicotine Inhaler*) 10 mg INH Q2H PRN PRN Reason: CRAVING Last Admin: 10/27/17 11:49 Dose: 10 mg Sertraline HCl (Zoloft*) 50 mg PO DAILY [facility] Last Admin: 10/27/17 08:44 Dose: 50 mg Thiamine HCl (Vitamin B-1 Tab*) 100 mg PO DAILY [facility] Last Admin: 10/27/17 08:44 Dose: 100 mg Vital Signs - 8 hr 10/27/17 11:49 Temperature 98.1 F Oxygen Devices in Use Now: None Appearance: appears comfortable sitting in bed Eyes: No Scleral Icterus Ears/Nose/Mouth/Throat: Clear Oropharnyx, Mucous Membranes Moist Neck: NL Appearance and Movements; NL JVP, Trachea Midline Respiratory: Symmetrical Chest Expansion and Respiratory Effort, Clear to Auscultation Cardiovascular: NL Sounds; No Murmurs; No JVD, No Edema Abdominal: NL Sounds; No Tenderness; No Distention Extremities: No Edema, No Clubbing, Cyanosis Skin: No Rash or Ulcers Neurological: Alert and Oriented x 3 Nutrition: Taking PO's Result Diagrams: 10/28/17 06:06 10/28/17 06:06 Additional Lab and Data: Lab Results 10/25/17 10/25/17 10/25/17 Range/Units 18:51 18:51 18:51 WBC 9.6 (3.5-10.8) 10^3/ul RBC 4.85 (4.0-5.4) 10^6/ul Hgb 15.3 (14.0-18.0) g/dl Hct 44 (42-52) % MCV 91 (80-94) fL MCH 32 H (27-31) pg MCHC 35 (31-36) g/dl RDW 13 (10.5-15) % Plt Count 193 (150-450) 10^3/ul MPV 8.5 (7.4-10.4) um3 Neut % (Auto) 68.8 (38-83) % Lymph % (Auto) 20.1 L (25-47) % [place] % (Auto) 7.7 H (0-7) % Eos % (Auto) 3.0 (0-6) % Baso % (Auto) 0.4 (0-2) % Absolute Neuts (auto) 6.6 (1.5-7.7) 10^3/ul Absolute Lymphs (auto) 1.9 (1.0-4.8) 10^3/ul Absolute Monos (auto) 0.7 (0-0.8) 10^3/ul Absolute Eos (auto) 0.3 (0-0.6) 10^3/ul Absolute Basos (auto) 0 (0-0.2) 10^3/ul Absolute Nucleated RBC 0 10^3/ul Nucleated RBC % 0.1 Sodium 138 L (139-145) mmol/L Potassium 3.5 (3.5-5.0) mmol/L Chloride 105 (101-111) mmol/L Carbon Dioxide 23 (22-32) mmol/L Anion Gap 10 (2-11) mmol/L BUN 18 (6-24) mg/dL Creatinine 1.10 (0.67-1.17) mg/dL Est GFR ( Amer) 103.3 (>60) Est GFR (Non-Af Amer) 80.3 (>60) BUN/Creatinine Ratio 16.4 (8-20) Glucose 71 (70-100) mg/dL Lactic Acid 0.8 (0.5-2.0) mmol/L Calcium 9.8 (8.6-10.3) mg/dL Magnesium 2.1 (1.9-2.7) mg/dL Total Bilirubin 0.40 (0.2-1.0) mg/dL AST 24 (13-39) U/L ALT 24 (7-52) U/L Alkaline Phosphatase 48 (34-104) U/L Total Protein 7.5 (6.4-8.9) g/dL Albumin 4.8 (3.2-5.2) g/dL Globulin 2.7 (2-4) g/dL Albumin/Globulin Ratio 1.8 (1-3) Urine Color Urine Appearance Urine pH (5-9) Ur Specific [place] (1.010-1.030) Urine Protein (Negative) Urine Ketones (Negative) Urine Blood (Negative) Urine Nitrate (Negative) Urine Bilirubin (Negative) Urine Urobilinogen (Negative) Ur Leukocyte Esterase (Negative) Urine Glucose (Negative) Salicylates < 2.50 (<30) mg/dL Urine Opiates Screen (None Detect) Acetaminophen < 15 mcg/mL Ur Barbiturates Screen (None Detect) Valproic Acid < 13.0 L (50-100) mcg/mL Ur Phencyclidine Scrn (None Detect) Ur Amphetamines Screen (None Detect) U Benzodiazepines Scrn (None Detect) Urine Cocaine Screen (None Detect) U Cannabinoids Screen (None Detect) Serum Alcohol < 10 (<10) mg/dL 10/25/17 10/25/17 Range/Units 19:13 19:13 WBC (3.5-10.8) 10^3/ul RBC (4.0-5.4) 10^6/ul Hgb (14.0-18.0) g/dl Hct (42-52) % MCV (80-94) fL MCH (27-31) pg MCHC (31-36) g/dl RDW (10.5-15) % Plt Count (150-450) 10^3/ul MPV (7.4-10.4) um3 Neut % (Auto) (38-83) % Lymph % (Auto) (25-47) % [place] % (Auto) (0-7) % Eos % (Auto) (0-6) % Baso % (Auto) (0-2) % Absolute Neuts (auto) (1.5-7.7) 10^3/ul Absolute Lymphs (auto) (1.0-4.8) 10^3/ul Absolute Monos (auto) (0-0.8) 10^3/ul Absolute Eos (auto) (0-0.6) 10^3/ul Absolute Basos (auto) (0-0.2) 10^3/ul Absolute Nucleated RBC 10^3/ul Nucleated RBC % Sodium (139-145) mmol/L Potassium (3.5-5.0) mmol/L Chloride (101-111) mmol/L Carbon Dioxide (22-32) mmol/L Anion Gap (2-11) mmol/L BUN (6-24) mg/dL Creatinine (0.67-1.17) mg/dL Est GFR ( Amer) (>60) Est GFR (Non-Af Amer) (>60) BUN/Creatinine Ratio (8-20) Glucose (70-100) mg/dL Lactic Acid (0.5-2.0) mmol/L Calcium (8.6-10.3) mg/dL Magnesium (1.9-2.7) mg/dL Total Bilirubin (0.2-1.0) mg/dL AST (13-39) U/L ALT (7-52) U/L Alkaline Phosphatase (34-104) U/L Total Protein (6.4-8.9) g/dL Albumin (3.2-5.2) g/dL Globulin (2-4) g/dL Albumin/Globulin Ratio (1-3) Urine Color Yellow Urine Appearance Clear Urine pH 5.0 (5-9) Ur Specific [place] 1.011 (1.010-1.030) Urine Protein Negative (Negative) Urine Ketones Negative (Negative) Urine Blood Negative (Negative) Urine Nitrate Negative (Negative) Urine Bilirubin Negative (Negative) Urine Urobilinogen Negative (Negative) Ur Leukocyte Esterase Negative (Negative) Urine Glucose Negative (Negative) Salicylates (<30) mg/dL Urine Opiates Screen Presumptive positive A (None Detect) Acetaminophen mcg/mL Ur Barbiturates Screen None detected (None Detect) Valproic Acid (50-100) mcg/mL Ur Phencyclidine Scrn Presumptive positive A (None Detect) Ur Amphetamines Screen None detected (None Detect) U Benzodiazepines Scrn Presumptive positive A (None Detect) Urine Cocaine Screen None detected (None Detect) U Cannabinoids Screen None detected (None Detect) Serum Alcohol (<10) mg/dL Assess/Plan/Problems-Billing Assessment: This is a 27 year old male with longstanding hx of polysubstance abuse/dual diagnosis that presented after ingestion of large amount of coricidin after just being discharged from the hospital several hours prior. - Patient Problems (1) Polysubstance abuse Current Visit: No Status: Acute Priority: High Onset Date: 07/31/15 Code (s): F19.10 - OTHER PSYCHOACTIVE SUBSTANCE ABUSE, UNCOMPLICATED SNOMED Code(s) : 057568467 Comment: feeling positive today [facility] (2) Major depressive disorder Current Visit: No Status: Chronic Priority: Medium Code(s): F32.9 - MAJOR DEPRESSIVE DISORDER, SINGLE EPISODE, UNSPECIFIED SNOMED Code(s): 212735519 Comment: - feeling better today -denies any homicidal or suicidal ideations - waiting for bed at the rehab center - Psychiatry consulted and following - Continue home meds for now Status and Disposition: While patient is medically stable for DC, proper disposition inpt rehab
[2017-10-27 18:17] LABS: EGFR Non-African American 97.5 (>60)
[2017-10-27] MEDS ORDERED: KCL 20 MEQ/100 ML IVPREMIX* 20 MEQ/100 ML BAG IV SCH (19:00)
[2017-10-27] MEDS ORDERED: Potassium Chloride IV* 40 MEQ in NS 0.9% 250 ML* 250 ML IVPB ONE (19:00)
--- NOTE | 2017-10-27 19:06 | PN ---
Hospitalist Progress Note Date of Service: 10/27/17 1750 called by nursing staff stating that they found patient acting funny. Nursing staff reports that the patient may have drank up to 800 ml hand parquet floor layer. Patient reportedly told spiritual staff that he drank "vodka", room was searched and no containers were found, security found an empty bottle of hand parquet floor layer in the closet and no parquet floor layer container noted on the wall located on the wall in his room. Patient evaluated at the bedside. Patient unresponsive to verbal and tactile stimuli, minimal response to painful stimuli. Respiration 22 easy and even, pupils 3 mm bilat. maintaining secretions. Poison control called by nursing staff. Labwork drawn 1809 Poison control called by this account underwriter, advised to obtain EKG, ETOH level and acetaminophen and salicylates, ABG and end tidal CO2 monitoring. Patient will be transferred to ICU and be placed on 1:1. 1814- Called ICU attending Dr. Manzano to advise of patient,aware of patient's condition, advised to monitor patient. 183 Patient is in ICU- Patient is unresponsive to tactile stimuli. Staff updated and notified to up date poison control of pending labs. 184- Alcohol level 249 1919- [facility].
--- NOTE | 2017-10-27 19:20 | PN ---
Hospitalist Progress Note Date of Service: 10/27/17 HOSPITALIST ADDENDUM Case reviewed and d/w Cari Thompson WARD MAID. Mr. Forde is known to me from prior admissions, was admitted this time with another Coricidin overdose and was transferred from ICU to Medical floor waiting transfer to rehab. He drank hand display trimmer and is now transferred to ICU , unresponsive. Poison control was contacted and I refer you to Cari Thompson WARD MAID note for details. Selected Entries 10/27/17 18:34 Temperature 97.9 F Pulse Rate 82 Respiratory 21 Rate Blood Pressure 97/61 (mmHg) O2 Sat by Pulse 92 Oximetry Young male lying in bed, responsive to painful stimuli. PERRL, moist MM CVS normal S1 and S2, RRR Chest BS+ bilaterally with no added sounds A/P: Continue to monitor in ICU and follow Poison control recommendations. Will need 1:1 when he wakes Will need Psych follow up
--- NOTE | 2017-10-27 21:54 | PN ---
Subjective - Subjective Date of Service: 10/27/17 Service Type: 17341 Hosp care 25 min moderate complexity Subjective: Patient sitting in hospital bed, watching tv. She has opened the first page of a book and reports this to be a guide to the bible. Patient reports eagerness to attend [facility]. Patient and fiction and nonfiction writer prose discuss triggers and motivations for relapse and recovery. Amusement Machine Mechanic strongly encouraged patient to identify what she can be accountable for and gave examples of reframing statements. Patient thanked fiction and nonfiction writer prose for assistance and for recommendations. Objective - Appearance Appearance: Well Developed/Nourished Dysmorphic Features: No Hygiene: Normal Grooming: Well Kept - Behavior Psychomotor Activities: Normal Exhibits Abnormal Movement: No - Attitude and Relatedness Attitude and Relatedness: Cooperative Eye Contact: Fair - Speech Quality: Unpressured Latencies: Normal Quantity: Appropriate - Mood Patient's Decription of Mood: "Good" - Affect Observed Affect: Good Affect Consistent with: Euthymia - Thought Process Patient's Thought Process: Coherent, Goal Directed Thought Content: No Passive Wish, No Suicidal Planning, No Homicidal Ideation, No Paranoid Ideation - Sensorium Experiencing Hallucinations: No, Sensorium is Clear Type of Hallucinations: Visual: No, Auditory: No, Command: No - Level of Consciousness Level of Consciousness: Alert Orientation: Yes Intact, Yes Orientated to Time, Yes Orientated to Place, Yes Orientated to Person - Impulse Control Impulse Control: Impaired - Insight and Judgement Insight and Judgement: Poor Assessment - Assessment Merits Inpatient Hospitalization: For Immediate Safety, For Stabilization, Pending Safe DC Plan Inpatient DSM-V Dx: F19.180 Clinical Impression: 27yo white male who prefers to identify as female, "Siria." [facility]. He is unable to care for self and is agreeable to remain in hospital for [id number] discharge to inpatient substance use facility. Plan - Plan Treatment Plan: Name: MADONNA MOON Birthdate: 1990 [id number] psychiatry to consult while patient awaiting admission to inpatient substance use treatment facility. pending bed date at [facility] on monday, october 30. Medications: Current Medications Benztropine Mesylate (Cogentin Tab*) 1 mg PO BID [facility] Last Admin: 10/27/17 08:43 Dose: 1 mg Device (Nicotine Mouth Piece*) 1 each INH .USE WITH NICOTROL PRN PRN Reason: CRAVING Last Admin: 10/26/17 06:07 Dose: 1 each Divalproex Sodium (Depakote Dr Tab(*)) 500 mg PO BID [facility] Last Admin: 10/27/17 08:43 Dose: 500 mg Folic Acid (Folvite Tab*) 1 mg PO DAILY [facility] Last Admin: 10/27/17 08:44 Dose: 1 mg Potassium Chloride 40 meq/ (Sodium Chloride) 270 mls @ 67.5 mls/hr IVPB ONCE ONE Stop: 10/27/17 22:59 Last Admin: 10/27/17 19:32 Dose: 67.5 mls/hr Levothyroxine Sodium (Synthroid Tab*) 150 mcg PO 0600 [facility] Last Admin: 10/27/17 06:12 Dose: 150 mcg Lorazepam (Ativan Inj*) 1 mg IV PUSH Q6H PRN PRN Reason: ANXIETY Last Admin: 10/27/17 08:43 Dose: 1 mg Nicotine (Nicotine Inhaler*) 10 mg INH Q2H PRN PRN Reason: CRAVING Last Admin: 10/27/17 16:57 Dose: 10 mg Sertraline HCl (Zoloft*) 50 mg PO DAILY [facility] Last Admin: 10/27/17 08:44 Dose: 50 mg Thiamine HCl (Vitamin B-1 Tab*) 100 mg PO DAILY [facility] Last Admin: 10/27/17 08:44 Dose: 100 mg - Discharge Plan Discharge Plan: Drug/Alcohol Rehab
[2017-10-28] MEDS: Levothyroxine TAB* 150 MCG TAB PO SCH (05:57)
[2017-10-28 06:19] LABS: ABS Basophils 0.1 10^3/ul (0-0.2); ABS Eosinophils 0.4 10^3/ul (0-0.6); ABS Lymphocytes 2.7 10^3/ul (1.0-4.8); ABS Monocytes 0.8 10^3/ul (0-0.8); ABS Neutrophils 4.8 10^3/ul (1.5-7.7); ABS Nucleated RBC 0 10^3/ul; Eosinophil % 4.9 % (0-6); Hematocrit 45 % (42-52); Hemoglobin 15.6 g/dl (14.0-18.0); Lymphocyte % 30.4 % (25-47); Mean Corpuscular HGB Conc 34 g/dl (31-36); Mean Corpuscular Hemoglobin 31 pg (27-31); Mean Corpuscular Volume 91 fL (80-94); Mean Platelet Volume 8.4 um3 (7.4-10.4); Nucleated Red Blood Cells % 0; Platelet Count 183 10^3/ul (150-450); Red Blood Count 4.99 10^6/ul (4.0-5.4); Red Cell Distribution Width 13 % (10.5-15); White Blood Count 8.8 10^3/ul (3.5-10.8)
[2017-10-28] MEDS: Mouth Piece, Nicotine* 1 EACH CARTRIDGE INH PRN (07:34)
[2017-10-28] MEDS: Nicotine Inhaler* 10 MG AMP INH PRN ×3 (07:35→20:38)
[2017-10-28] MEDS: Benztropine TAB* 1 MG PO SCH ×2 (09:03→20:38)
[2017-10-28] MEDS: Divalproex DR TAB(*) 500 MG PO SCH ×2 (09:03→20:38)
[2017-10-28] MEDS: Thiamine TAB* 100 MG TAB PO SCH (09:03)
[2017-10-28] MEDS: Folic Acid TAB* 1 MG PO SCH (09:03)
[2017-10-28] MEDS: Sertraline* 50 MG TAB PO SCH (09:03)
--- NOTE | 2017-10-28 16:48 | PN ---
Subjective Date of Service: 10/28/17 Interval History: Patient examined at bedside 1:[address], Patient questioned about the episode that occurred yesterday. Patient states that he drank a bottle of hand tongue and groove machine setter d/t being bored. states that he could on control his impulsive behavior. Denies being suicidal or homicidal. Continue to look forward to going to rehab on monday. Denies chaparro pain or shortness of breath. denies any abd pain or n/v/d. Family History: Unchanged from Admission Social History: Unchanged from Admission Past Medical History: Unchanged from Admission Objective Active Medications: Benztropine Mesylate (Cogentin Tab*) 1 mg PO BID [facility] Last Admin: 10/28/17 09:03 Dose: 1 mg Device (Nicotine Mouth Piece*) 1 each INH .USE WITH NICOTROL PRN PRN Reason: CRAVING Last Admin: 10/28/17 07:34 Dose: 1 each Divalproex Sodium (Depakote Dr Tab(*)) 500 mg PO BID [facility] Last Admin: 10/28/17 09:03 Dose: 500 mg Folic Acid (Folvite Tab*) 1 mg PO DAILY [facility] Last Admin: 10/28/17 09:03 Dose: 1 mg Levothyroxine Sodium (Synthroid Tab*) 150 mcg PO 0600 [facility] Last Admin: 10/28/17 05:57 Dose: 150 mcg Nicotine (Nicotine Inhaler*) 10 mg INH Q2H PRN PRN Reason: CRAVING Last Admin: 10/28/17 14:26 Dose: 10 mg Sertraline HCl (Zoloft*) 50 mg PO DAILY [facility] Last Admin: 10/28/17 09:03 Dose: 50 mg Thiamine HCl (Vitamin B-1 Tab*) 100 mg PO DAILY [facility] Last Admin: 10/28/17 09:03 Dose: 100 mg Vital Signs - 8 hr 10/28/17 10/28/17 10/28/17 09:00 09:01 10:00 Temperature Pulse Rate 79 81 78 Respiratory 24 22 22 Rate Blood Pressure 116/67 107/67 (mmHg) O2 Sat by Pulse 95 97 92 Oximetry 10/28/17 10/28/17 10/28/17 10:01 11:00 11:01 Temperature Pulse Rate 82 84 83 Respiratory 18 22 22 Rate Blood Pressure 108/75 (mmHg) O2 Sat by Pulse 93 93 94 Oximetry 10/28/17 10/28/17 10/28/17 12:00 12:01 13:00 Temperature 97.5 F Pulse Rate 74 67 83 Respiratory 24 15 19 Rate Blood Pressure 109/72 125/88 (mmHg) O2 Sat by Pulse 94 94 95 Oximetry 10/28/17 10/28/17 10/28/17 13:01 14:00 15:00 Temperature Pulse Rate 94 Respiratory 17 17 18 Rate Blood Pressure (mmHg) O2 Sat by Pulse 96 Oximetry 10/28/17 10/28/17 10/28/17 15:12 16:00 16:05 Temperature 97.3 F Pulse Rate Respiratory 0 Rate Blood Pressure (mmHg) O2 Sat by Pulse 96 Oximetry 10/28/17 16:07 Temperature Pulse Rate 62 Respiratory 26 Rate Blood Pressure 124/84 (mmHg) O2 Sat by Pulse 96 Oximetry Oxygen Devices in Use Now: None Appearance: alert and awake sitting in bed, no acute distress Eyes: No Scleral Icterus Ears/Nose/Mouth/Throat: Clear Oropharnyx, Mucous Membranes Moist Neck: NL Appearance and Movements; NL JVP, Trachea Midline Respiratory: Symmetrical Chest Expansion and Respiratory Effort, Clear to Auscultation Cardiovascular: NL Sounds; No Murmurs; No JVD, No Edema Abdominal: NL Sounds; No Tenderness; No Distention Extremities: No Edema, No Clubbing, Cyanosis Skin: No Rash or Ulcers Neurological: Alert and Oriented x 3, NL Muscle Strength and Tone Nutrition: Taking PO's Result Diagrams: 10/28/17 06:06 10/29/17 06:16 Additional Lab and Data: Lab Results 10/25/17 10/25/17 10/25/17 Range/Units 18:51 18:51 18:51 WBC 9.6 (3.5-10.8) 10^3/ul RBC 4.85 (4.0-5.4) 10^6/ul Hgb 15.3 (14.0-18.0) g/dl Hct 44 (42-52) % MCV 91 (80-94) fL MCH 32 H (27-31) pg MCHC 35 (31-36) g/dl RDW 13 (10.5-15) % Plt Count 193 (150-450) 10^3/ul MPV 8.5 (7.4-10.4) um3 Neut % (Auto) 68.8 (38-83) % Lymph % (Auto) 20.1 L (25-47) % Elbert % (Auto) 7.7 H (0-7) % Eos % (Auto) 3.0 (0-6) % Baso % (Auto) 0.4 (0-2) % Absolute Neuts (auto) 6.6 (1.5-7.7) 10^3/ul Absolute Lymphs (auto) 1.9 (1.0-4.8) 10^3/ul Absolute Monos (auto) 0.7 (0-0.8) 10^3/ul Absolute Eos (auto) 0.3 (0-0.6) 10^3/ul Absolute Basos (auto) 0 (0-0.2) 10^3/ul Absolute Nucleated RBC 0 10^3/ul Nucleated RBC % 0.1 Sodium 138 L (139-145) mmol/L Potassium 3.5 (3.5-5.0) mmol/L Chloride 105 (101-111) mmol/L Carbon Dioxide 23 (22-32) mmol/L Anion Gap 10 (2-11) mmol/L BUN 18 (6-24) mg/dL Creatinine 1.10 (0.67-1.17) mg/dL Est GFR ( Amer) 103.3 (>60) Est GFR (Non-Af Amer) 80.3 (>60) BUN/Creatinine Ratio 16.4 (8-20) Glucose 71 (70-100) mg/dL Lactic Acid 0.8 (0.5-2.0) mmol/L Calcium 9.8 (8.6-10.3) mg/dL Magnesium 2.1 (1.9-2.7) mg/dL Total Bilirubin 0.40 (0.2-1.0) mg/dL AST 24 (13-39) U/L ALT 24 (7-52) U/L Alkaline Phosphatase 48 (34-104) U/L Total Protein 7.5 (6.4-8.9) g/dL Albumin 4.8 (3.2-5.2) g/dL Globulin 2.7 (2-4) g/dL Albumin/Globulin Ratio 1.8 (1-3) Urine Color Urine Appearance Urine pH (5-9) Ur Specific [place] (1.010-1.030) Urine Protein (Negative) Urine Ketones (Negative) Urine Blood (Negative) Urine Nitrate (Negative) Urine Bilirubin (Negative) Urine Urobilinogen (Negative) Ur Leukocyte Esterase (Negative) Urine Glucose (Negative) Salicylates < 2.50 (<30) mg/dL Urine Opiates Screen (None Detect) Acetaminophen < 15 mcg/mL Ur Barbiturates Screen (None Detect) Valproic Acid < 13.0 L (50-100) mcg/mL Ur Phencyclidine Scrn (None Detect) Ur Amphetamines Screen (None Detect) U Benzodiazepines Scrn (None Detect) Urine Cocaine Screen (None Detect) U Cannabinoids Screen (None Detect) Serum Alcohol < 10 (<10) mg/dL 10/25/17 10/25/17 Range/Units 19:13 19:13 WBC (3.5-10.8) 10^3/ul RBC (4.0-5.4) 10^6/ul Hgb (14.0-18.0) g/dl Hct (42-52) % MCV (80-94) fL MCH (27-31) pg MCHC (31-36) g/dl RDW (10.5-15) % Plt Count (150-450) 10^3/ul MPV (7.4-10.4) um3 Neut % (Auto) (38-83) % Lymph % (Auto) (25-47) % [place]bert % (Auto) (0-7) % Eos % (Auto) (0-6) % Baso % (Auto) (0-2) % Absolute Neuts (auto) (1.5-7.7) 10^3/ul Absolute Lymphs (auto) (1.0-4.8) 10^3/ul Absolute Monos (auto) (0-0.8) 10^3/ul Absolute Eos (auto) (0-0.6) 10^3/ul Absolute Basos (auto) (0-0.2) 10^3/ul Absolute Nucleated RBC 10^3/ul Nucleated RBC % Sodium (139-145) mmol/L Potassium (3.5-5.0) mmol/L Chloride (101-111) mmol/L Carbon Dioxide (22-32) mmol/L Anion Gap (2-11) mmol/L BUN (6-24) mg/dL Creatinine (0.67-1.17) mg/dL Est GFR ( Amer) (>60) Est GFR (Non-Af Amer) (>60) BUN/Creatinine Ratio (8-20) Glucose (70-100) mg/dL Lactic Acid (0.5-2.0) mmol/L Calcium (8.6-10.3) mg/dL Magnesium (1.9-2.7) mg/dL Total Bilirubin (0.2-1.0) mg/dL AST (13-39) U/L ALT (7-52) U/L Alkaline Phosphatase (34-104) U/L Total Protein (6.4-8.9) g/dL Albumin (3.2-5.2) g/dL Globulin (2-4) g/dL Albumin/Globulin Ratio (1-3) Urine Color Yellow Urine Appearance Clear Urine pH 5.0 (5-9) Ur Specific [place] 1.011 (1.010-1.030) Urine Protein Negative (Negative) Urine Ketones Negative (Negative) Urine Blood Negative (Negative) Urine Nitrate Negative (Negative) Urine Bilirubin Negative (Negative) Urine Urobilinogen Negative (Negative) Ur Leukocyte Esterase Negative (Negative) Urine Glucose Negative (Negative) Salicylates (<30) mg/dL Urine Opiates Screen Presumptive positive A (None Detect) Acetaminophen mcg/mL Ur Barbiturates Screen None detected (None Detect) Valproic Acid (50-100) mcg/mL Ur Phencyclidine Scrn Presumptive positive A (None Detect) Ur Amphetamines Screen None detected (None Detect) U Benzodiazepines Scrn Presumptive positive A (None Detect) Urine Cocaine Screen None detected (None Detect) U Cannabinoids Screen None detected (None Detect) Serum Alcohol (<10) mg/dL Assess/Plan/Problems-Billing Assessment: This is a 27 year old male with longstanding hx of polysubstance abuse/dual diagnosis that presented after ingestion of large amount of coricidin after just being discharged from the hospital several hours prior. - Patient Problems (1) Polysubstance abuse Current Visit: No Status: Acute Priority: High Onset Date: 07/31/15 Code (s): F19.10 - OTHER PSYCHOACTIVE SUBSTANCE ABUSE, UNCOMPLICATED SNOMED Code(s) : 869869835 Comment: Patient drank hand tongue and groove machine setter yesterday evening, ETOH level 249 , repeat this AM <10. Given his inability to control his impulsive behavior he will remain on 1:1 supervision for safety until discharged to inpatient rehab on monday. Patient can not have any benzos 48 hours prior to arrival to inpatient rehab so ativan was discontinued. [facility] (2) Major depressive disorder Current Visit: No Status: Chronic Priority: Medium Code(s): F32.9 - MAJOR DEPRESSIVE DISORDER, SINGLE EPISODE, UNSPECIFIED SNOMED Code(s): 463588969 Comment: - feeling better today -denies any homicidal or suicidal ideations - waiting for bed at the rehab center- inpatient bed at [facility] on monday - Psychiatry consulted and following - Continue home meds for now Status and Disposition: While patient is medically stable for DC, disposition inpt rehab
--- NOTE | 2017-10-28 17:36 | CONSULT ---
Identification - Patient Identification Reason for Psychiatric Consultation: Incapacitating Symptoms -: Patient is a 27 year old, M admitted on 10/27/17. - MHU Identification Employment Status: Unemployed Hx Psychiatric Hospitalization: Yes History - Objective HPI: Fernie is seen by the weekend Psychiatry consult team for follow up service related to his self-destructive substance abuse patterns. In the intervening time since our service saw him yesterday, Fernie drank a bottle of hand legal records manager while off close observations on the medical floor, resulting in alcohol intoxication and return to the ICU. He is still pending transfer on Monday, October 30 to the [facility] drug and alcohol treatment facility in [place]. On exam Fernie feigns remorse for drinking the hand room cleaner and assures me that this was not an act of self-harm in as much as an attempt to get high one last time before rehab. Given his repeated ingestions of dextromethorphan leading up to this admission, it is clear that he has no control over his impulses to abuse substances. He denies SI and states that he is ready and eager for rehab. He remains on 1:1 observations at this time. Lab Results: Laboratory Tests 10/27/17 10/27/17 10/28/17 17:51 18:55 06:06 WBC 8.8 RBC 4.99 Hgb 15.6 Hct 45 MCV 91 MCH 31 MCHC 34 RDW 13 Plt Count 183 MPV 8.4 Neut % (Auto) 55.1 Lymph % (Auto) 30.4 [place] % (Auto) 8.9 H Eos % (Auto) 4.9 Baso % (Auto) 0.7 Absolute Neuts (auto) 4.8 Absolute Lymphs (auto) 2.7 Absolute Monos (auto) 0.8 Absolute Eos (auto) 0.4 Absolute Basos (auto) 0.1 Absolute Nucleated RBC 0 Nucleated RBC % 0 ABG pH 7.38 ABG pCO2 35 ABG pO2 84 ABG HCO3 22.0 ABG O2 Saturation 96.5 ABG Base Excess -3.6 L Sodium 136 L Potassium 3.1 L Chloride 103 Carbon Dioxide 19 L Anion Gap 14 H BUN 10 Creatinine 0.93 Est GFR ( Amer) 125.3 Est GFR (Non-Af Amer) 97.5 BUN/Creatinine Ratio 10.8 Glucose 115 H Calcium 9.6 Total Bilirubin 0.30 AST 21 ALT 28 Alkaline Phosphatase 44 Total Protein 7.4 Albumin 4.6 Globulin 2.8 Albumin/Globulin Ratio 1.6 Salicylates < 2.50 Acetaminophen < 15 Serum Alcohol 249 H 10/28/17 10/28/17 06:06 06:06 WBC RBC Hgb Hct MCV MCH MCHC RDW Plt Count MPV Neut % (Auto) Lymph % (Auto) [place] % (Auto) Eos % (Auto) Baso % (Auto) Absolute Neuts (auto) Absolute Lymphs (auto) Absolute Monos (auto) Absolute Eos (auto) Absolute Basos (auto) Absolute Nucleated RBC Nucleated RBC % ABG pH ABG pCO2 ABG pO2 ABG HCO3 ABG O2 Saturation ABG Base Excess Sodium 138 L Potassium 4.1 Chloride 109 Carbon Dioxide 19 L Anion Gap 10 BUN 14 Creatinine 0.96 Est GFR ( Amer) 120.8 Est GFR (Non-Af Amer) 94.0 BUN/Creatinine Ratio 14.6 Glucose 97 Calcium 9.2 Total Bilirubin AST ALT Alkaline Phosphatase Total Protein Albumin Globulin Albumin/Globulin Ratio Salicylates Acetaminophen Serum Alcohol < 10 Exam Appearance: Well Developed/Nourished Hygiene: Normal Grooming: Well Kept Psychomotor Activities: Normal Exhibits Abnormal Movement: No Attitude and Relatedness: Cooperative Eye Contact: Fair - Speech Quality: Unpressured Latencies: Normal Quantity: Appropriate Patient's Decription of Mood: "Good" Observed Affect: Good Affect Consistent with: Euthymia Patient's Thought Process: Coherent, Goal Directed Thought Content: No Passive Wish, No Suicidal Planning, No Homicidal Ideation, No Paranoid Ideation Experiencing Hallucinations: No, Sensorium is Clear Type of Hallucinations: Visual: No, Auditory: No, Command: No Level of Consciousness: Alert Orientation: Yes Intact, Yes Orientated to Time, Yes Orientated to Place, Yes Orientated to Person Impulse Control: Impaired Insight and Judgement: Poor Impression - Impression Clinical Impression: 27 y.o. single, white male with a history of polysubstance misuse admitted to the ICU after drinking a bottle of hand legal records manager on the medical unit, where he was already admitted for abusing OTC cough suppressant. Inpatient DSM-V Dx: F19.180 Problem List - U Problems Type of Problem: Impulse Control Status of Problem: Active Plan - Treatment Plan Treatment Plan: Patient psychiatrically cleared to transfer back to medical floor. He is to remain on 1:1 observations until discharge, likely Monday, October 30, at which time he will attend inpatient drug/alcohol rehabilitation. Psychiatry will continue to be available if necessary. Medications: Current Medications Benztropine Mesylate (Cogentin Tab*) 1 mg PO BID [facility] Last Admin: 10/28/17 09:03 Dose: 1 mg Device (Nicotine Mouth Piece*) 1 each INH .USE WITH NICOTROL PRN PRN Reason: CRAVING Last Admin: 10/28/17 07:34 Dose: 1 each Divalproex Sodium (Depakote Dr Tab(*)) 500 mg PO BID [facility] Last Admin: 10/28/17 09:03 Dose: 500 mg Folic Acid (Folvite Tab*) 1 mg PO DAILY [facility] Last Admin: 10/28/17 09:03 Dose: 1 mg Levothyroxine Sodium (Synthroid Tab*) 150 mcg PO 0600 [facility] Last Admin: 10/28/17 05:57 Dose: 150 mcg Nicotine (Nicotine Inhaler*) 10 mg INH Q2H PRN PRN Reason: CRAVING Last Admin: 10/28/17 14:26 Dose: 10 mg Sertraline HCl (Zoloft*) 50 mg PO DAILY [facility] Last Admin: 10/28/17 09:03 Dose: 50 mg Thiamine HCl (Vitamin B-1 Tab*) 100 mg PO DAILY [facility] Last Admin: 10/28/17 09:03 Dose: 100 mg - Discharge Plan Discharge Plan: Drug/Alcohol Rehab
[2017-10-28] MEDS: CMCS Melatonin (NF) 3 MG TAB PO SCH (22:57)
[2017-10-29] MEDS: Levothyroxine TAB* 150 MCG TAB PO SCH (06:04)
[2017-10-29 06:43] LABS: EGFR Non-African American 108.1 (>60)
--- NOTE | 2017-10-29 08:40 | PN ---
Subjective Date of Service: 10/29/17 Interval History: No complaints lying in bed, Denies chest pain or shortness of breath, Denies abd pain n/v/d. Denies any suicidal or homicidal ideation. Continue to feel positive about going to rehab. states that he is ready for rehab. Family History: Unchanged from Admission Social History: Unchanged from Admission Past Medical History: Unchanged from Admission Objective Active Medications: Benztropine Mesylate (Cogentin Tab*) 1 mg PO BID [facility] Last Admin: 10/28/17 20:38 Dose: 1 mg Device (Nicotine Mouth Piece*) 1 each INH .USE WITH NICOTROL PRN PRN Reason: CRAVING Last Admin: 10/28/17 07:34 Dose: 1 each Divalproex Sodium (Depakote Dr Tab(*)) 500 mg PO BID [facility] Last Admin: 10/28/17 20:38 Dose: 500 mg Folic Acid (Folvite Tab*) 1 mg PO DAILY [facility] Last Admin: 10/28/17 09:03 Dose: 1 mg Levothyroxine Sodium (Synthroid Tab*) 150 mcg PO 0600 [facility] Last Admin: 10/29/17 06:04 Dose: 150 mcg Melatonin (Melatonin (Nf)) 3 mg PO BEDTIME [facility] Last Admin: 10/28/17 22:57 Dose: 3 mg Nicotine (Nicotine Inhaler*) 10 mg INH Q2H PRN PRN Reason: CRAVING Last Admin: 10/28/17 20:38 Dose: 10 mg Sertraline HCl (Zoloft*) 50 mg PO DAILY [facility] Last Admin: 10/28/17 09:03 Dose: 50 mg Thiamine HCl (Vitamin B-1 Tab*) 100 mg PO DAILY [facility] Last Admin: 10/28/17 09:03 Dose: 100 mg Vital Signs - 8 hr 10/29/17 10/29/17 10/29/17 01:00 02:00 03:00 Temperature Pulse Rate 62 56 50 Respiratory 19 20 19 Rate Blood Pressure 122/81 127/79 (mmHg) O2 Sat by Pulse 98 97 96 Oximetry 10/29/17 10/29/17 10/29/17 03:01 04:00 04:19 Temperature 97.1 F Pulse Rate 51 72 Respiratory 20 Rate Blood Pressure 108/52 138/87 (mmHg) O2 Sat by Pulse 96 96 96 Oximetry 10/29/17 10/29/17 10/29/17 05:00 05:01 06:00 Temperature Pulse Rate 47 49 60 Respiratory 21 13 20 Rate Blood Pressure 95/57 111/66 (mmHg) O2 Sat by Pulse 98 98 95 Oximetry 10/29/17 10/29/17 10/29/17 06:01 07:00 07:01 Temperature Pulse Rate 59 60 64 Respiratory 20 22 21 Rate Blood Pressure 107/69 (mmHg) O2 Sat by Pulse 98 96 95 Oximetry 10/29/17 08:00 Temperature 97.8 F Pulse Rate Respiratory Rate Blood Pressure (mmHg) O2 Sat by Pulse Oximetry Oxygen Devices in Use Now: None Appearance: alert and oreinted x3 appears calm and comfortable Eyes: No Scleral Icterus Ears/Nose/Mouth/Throat: Clear Oropharnyx, Mucous Membranes Moist Neck: NL Appearance and Movements; NL JVP, Trachea Midline Respiratory: Symmetrical Chest Expansion and Respiratory Effort, Clear to Auscultation Cardiovascular: NL Sounds; No Murmurs; No JVD, No Edema Abdominal: NL Sounds; No Tenderness; No Distention Extremities: No Edema, No Clubbing, Cyanosis Skin: No Rash or Ulcers Neurological: Alert and Oriented x 3 Nutrition: Taking PO's Result Diagrams: 10/28/17 06:06 10/29/17 06:16 Additional Lab and Data: Lab Results 10/25/17 10/25/17 10/25/17 Range/Units 18:51 18:51 18:51 WBC 9.6 (3.5-10.8) 10^3/ul RBC 4.85 (4.0-5.4) 10^6/ul Hgb 15.3 (14.0-18.0) g/dl Hct 44 (42-52) % MCV 91 (80-94) fL MCH 32 H (27-31) pg MCHC 35 (31-36) g/dl RDW 13 (10.5-15) % Plt Count 193 (150-450) 10^3/ul MPV 8.5 (7.4-10.4) um3 Neut % (Auto) 68.8 (38-83) % Lymph % (Auto) 20.1 L (25-47) % [place] % (Auto) 7.7 H (0-7) % Eos % (Auto) 3.0 (0-6) % Baso % (Auto) 0.4 (0-2) % Absolute Neuts (auto) 6.6 (1.5-7.7) 10^3/ul Absolute Lymphs (auto) 1.9 (1.0-4.8) 10^3/ul Absolute Monos (auto) 0.7 (0-0.8) 10^3/ul Absolute Eos (auto) 0.3 (0-0.6) 10^3/ul Absolute Basos (auto) 0 (0-0.2) 10^3/ul Absolute Nucleated RBC 0 10^3/ul Nucleated RBC % 0.1 Sodium 138 L (139-145) mmol/L Potassium 3.5 (3.5-5.0) mmol/L Chloride 105 (101-111) mmol/L Carbon Dioxide 23 (22-32) mmol/L Anion Gap 10 (2-11) mmol/L BUN 18 (6-24) mg/dL Creatinine 1.10 (0.67-1.17) mg/dL Est GFR ( Amer) 103.3 (>60) Est GFR (Non-Af Amer) 80.3 (>60) BUN/Creatinine Ratio 16.4 (8-20) Glucose 71 (70-100) mg/dL Lactic Acid 0.8 (0.5-2.0) mmol/L Calcium 9.8 (8.6-10.3) mg/dL Magnesium 2.1 (1.9-2.7) mg/dL Total Bilirubin 0.40 (0.2-1.0) mg/dL AST 24 (13-39) U/L ALT 24 (7-52) U/L Alkaline Phosphatase 48 (34-104) U/L Total Protein 7.5 (6.4-8.9) g/dL Albumin 4.8 (3.2-5.2) g/dL Globulin 2.7 (2-4) g/dL Albumin/Globulin Ratio 1.8 (1-3) Urine Color Urine Appearance Urine pH (5-9) Ur Specific [place] (1.010-1.030) Urine Protein (Negative) Urine Ketones (Negative) Urine Blood (Negative) Urine Nitrate (Negative) Urine Bilirubin (Negative) Urine Urobilinogen (Negative) Ur Leukocyte Esterase (Negative) Urine Glucose (Negative) Salicylates < 2.50 (<30) mg/dL Urine Opiates Screen (None Detect) Acetaminophen < 15 mcg/mL Ur Barbiturates Screen (None Detect) Valproic Acid < 13.0 L (50-100) mcg/mL Ur Phencyclidine Scrn (None Detect) Ur Amphetamines Screen (None Detect) U Benzodiazepines Scrn (None Detect) Urine Cocaine Screen (None Detect) U Cannabinoids Screen (None Detect) Serum Alcohol < 10 (<10) mg/dL 10/25/17 10/25/17 Range/Units 19:13 19:13 WBC (3.5-10.8) 10^3/ul RBC (4.0-5.4) 10^6/ul Hgb (14.0-18.0) g/dl Hct (42-52) % MCV (80-94) fL MCH (27-31) pg MCHC (31-36) g/dl RDW (10.5-15) % Plt Count (150-450) 10^3/ul MPV (7.4-10.4) um3 Neut % (Auto) (38-83) % Lymph % (Auto) (25-47) % [place] % (Auto) (0-7) % Eos % (Auto) (0-6) % Baso % (Auto) (0-2) % Absolute Neuts (auto) (1.5-7.7) 10^3/ul Absolute Lymphs (auto) (1.0-4.8) 10^3/ul Absolute Monos (auto) (0-0.8) 10^3/ul Absolute Eos (auto) (0-0.6) 10^3/ul Absolute Basos (auto) (0-0.2) 10^3/ul Absolute Nucleated RBC 10^3/ul Nucleated RBC % Sodium (139-145) mmol/L Potassium (3.5-5.0) mmol/L Chloride (101-111) mmol/L Carbon Dioxide (22-32) mmol/L Anion Gap (2-11) mmol/L BUN (6-24) mg/dL Creatinine (0.67-1.17) mg/dL Est GFR ( Amer) (>60) Est GFR (Non-Af Amer) (>60) BUN/Creatinine Ratio (8-20) Glucose (70-100) mg/dL Lactic Acid (0.5-2.0) mmol/L Calcium (8.6-10.3) mg/dL Magnesium (1.9-2.7) mg/dL Total Bilirubin (0.2-1.0) mg/dL AST (13-39) U/L ALT (7-52) U/L Alkaline Phosphatase (34-104) U/L Total Protein (6.4-8.9) g/dL Albumin (3.2-5.2) g/dL Globulin (2-4) g/dL Albumin/Globulin Ratio (1-3) Urine Color Yellow Urine Appearance Clear Urine pH 5.0 (5-9) Ur Specific [place] 1.011 (1.010-1.030) Urine Protein Negative (Negative) Urine Ketones Negative (Negative) Urine Blood Negative (Negative) Urine Nitrate Negative (Negative) Urine Bilirubin Negative (Negative) Urine Urobilinogen Negative (Negative) Ur Leukocyte Esterase Negative (Negative) Urine Glucose Negative (Negative) Salicylates (<30) mg/dL Urine Opiates Screen Presumptive positive A (None Detect) Acetaminophen mcg/mL Ur Barbiturates Screen None detected (None Detect) Valproic Acid (50-100) mcg/mL Ur Phencyclidine Scrn Presumptive positive A (None Detect) Ur Amphetamines Screen None detected (None Detect) U Benzodiazepines Scrn Presumptive positive A (None Detect) Urine Cocaine Screen None detected (None Detect) U Cannabinoids Screen None detected (None Detect) Serum Alcohol (<10) mg/dL Assess/Plan/Problems-Billing Assessment: This is a 27 year old male with longstanding hx of polysubstance abuse/dual diagnosis that presented after ingestion of large amount of coricidin after just being discharged from the hospital several hours prior. 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 Patient can not have any benzos 48 hours prior to arrival to inpatient rehab so ativan was discontinued. Waiting for bed availbilty at [facility]- monday (2) Major depressive disorder Current Visit: No Status: Chronic Priority: Medium Code(s): F32.9 - MAJOR DEPRESSIVE DISORDER, SINGLE EPISODE, UNSPECIFIED SNOMED Code(s): 184570610 Comment: - feeling ready to go to rehab -denies any homicidal or suicidal ideations - waiting for bed at the rehab center- inpatient bed at [facility] on monday - Psychiatry consulted and following - Continue home meds for now (3) Full code status Current Visit: Yes Status: Acute Code(s): Z78.9 - OTHER SPECIFIED HEALTH STATUS SNOMED Code(s): 754680127 Status and Disposition: While patient is medically stable for DC, disposition inpt rehab
[2017-10-29] MEDS: Sertraline* 50 MG TAB PO SCH (09:00)
[2017-10-29] MEDS: Divalproex DR TAB(*) 500 MG PO SCH ×2 (09:00→22:06)
[2017-10-29] MEDS: Thiamine TAB* 100 MG TAB PO SCH (09:01)
[2017-10-29] MEDS: Benztropine TAB* 1 MG PO SCH ×2 (09:01→22:06)
[2017-10-29] MEDS: Folic Acid TAB* 1 MG PO SCH (09:01)
[2017-10-29] MEDS: Nicotine Inhaler* 10 MG AMP INH PRN ×2 (09:07→16:11)
[2017-10-29] MEDS: CMCS Melatonin (NF) 3 MG TAB PO SCH (22:06)
[2017-10-30] MEDS: Levothyroxine TAB* 150 MCG TAB PO SCH (05:45)
[2017-10-30] MEDS: Sertraline* 50 MG TAB PO SCH (09:43)
[2017-10-30] MEDS: Benztropine TAB* 1 MG PO SCH ×2 (09:43→21:02)
[2017-10-30] MEDS: Divalproex DR TAB(*) 500 MG PO SCH ×2 (09:43→21:01)
[2017-10-30] MEDS: Folic Acid TAB* 1 MG PO SCH (09:43)
[2017-10-30] MEDS: Thiamine TAB* 100 MG TAB PO SCH (09:43)
[2017-10-30] MEDS: Nicotine Inhaler* 10 MG AMP INH PRN ×3 (09:57→16:31)
--- NOTE | 2017-10-30 17:42 | PN ---
Subjective Date of Service: 10/30/17 Interval History: Patient is frustrated about have rehab bed offer declined, Denies chest pain or shortness of breath. denies abd pain , n/v/d. Family History: Unchanged from Admission Social History: Unchanged from Admission Past Medical History: Unchanged from Admission Objective Active Medications: Benztropine Mesylate (Cogentin Tab*) 1 mg PO BID [facility] Last Admin: 10/30/17 09:43 Dose: 1 mg Device (Nicotine Mouth Piece*) 1 each INH .USE WITH NICOTROL PRN PRN Reason: CRAVING Last Admin: 10/28/17 07:34 Dose: 1 each Divalproex Sodium (Depakote Dr Tab(*)) 500 mg PO BID [facility] Last Admin: 10/30/17 09:43 Dose: 500 mg Folic Acid (Folvite Tab*) 1 mg PO DAILY [facility] Last Admin: 10/30/17 09:43 Dose: 1 mg Levothyroxine Sodium (Synthroid Tab*) 150 mcg PO 0600 [facility] Last Admin: 10/30/17 05:45 Dose: 150 mcg Melatonin (Melatonin (Nf)) 3 mg PO BEDTIME [facility] Last Admin: 10/29/17 22:06 Dose: 3 mg Nicotine (Nicotine Inhaler*) 10 mg INH Q2H PRN PRN Reason: CRAVING Last Admin: 10/30/17 16:31 Dose: 10 mg Sertraline HCl (Zoloft*) 50 mg PO DAILY [facility] Last Admin: 10/30/17 09:43 Dose: 50 mg Thiamine HCl (Vitamin B-1 Tab*) 100 mg PO DAILY [facility] Last Admin: 10/30/17 09:43 Dose: 100 mg Vital Signs - 8 hr 10/30/17 10/30/17 10/30/17 11:22 12:31 15:20 Temperature 98.1 F 98.6 F Pulse Rate 93 55 Respiratory 16 18 20 Rate Blood Pressure 117/94 124/77 (mmHg) O2 Sat by Pulse 100 99 Oximetry Oxygen Devices in Use Now: None Appearance: appears comfortable, Eyes: No Scleral Icterus Ears/Nose/Mouth/Throat: Clear Oropharnyx, Mucous Membranes Moist Neck: NL Appearance and Movements; NL JVP, Trachea Midline Respiratory: Symmetrical Chest Expansion and Respiratory Effort, Clear to Auscultation Cardiovascular: NL Sounds; No Murmurs; No JVD, No Edema Abdominal: NL Sounds; No Tenderness; No Distention Extremities: No Edema, No Clubbing, Cyanosis Skin: No Rash or Ulcers, No Nodules or Sclerosis Neurological: Alert and Oriented x 3 Nutrition: Taking PO's Result Diagrams: 10/28/17 06:06 10/29/17 06:16 Additional Lab and Data: Lab Results 10/25/17 10/25/17 10/25/17 Range/Units 18:51 18:51 18:51 WBC 9.6 (3.5-10.8) 10^3/ul RBC 4.85 (4.0-5.4) 10^6/ul Hgb 15.3 (14.0-18.0) g/dl Hct 44 (42-52) % MCV 91 (80-94) fL MCH 32 H (27-31) pg MCHC 35 (31-36) g/dl RDW 13 (10.5-15) % Plt Count 193 (150-450) 10^3/ul MPV 8.5 (7.4-10.4) um3 Neut % (Auto) 68.8 (38-83) % Lymph % (Auto) 20.1 L (25-47) % [place] % (Auto) 7.7 H (0-7) % Eos % (Auto) 3.0 (0-6) % Baso % (Auto) 0.4 (0-2) % Absolute Neuts (auto) 6.6 (1.5-7.7) 10^3/ul Absolute Lymphs (auto) 1.9 (1.0-4.8) 10^3/ul Absolute Monos (auto) 0.7 (0-0.8) 10^3/ul Absolute Eos (auto) 0.3 (0-0.6) 10^3/ul Absolute Basos (auto) 0 (0-0.2) 10^3/ul Absolute Nucleated RBC 0 10^3/ul Nucleated RBC % 0.1 Sodium 138 L (139-145) mmol/L Potassium 3.5 (3.5-5.0) mmol/L Chloride 105 (101-111) mmol/L Carbon Dioxide 23 (22-32) mmol/L Anion Gap 10 (2-11) mmol/L BUN 18 (6-24) mg/dL Creatinine 1.10 (0.67-1.17) mg/dL Est GFR ( Amer) 103.3 (>60) Est GFR (Non-Af Amer) 80.3 (>60) BUN/Creatinine Ratio 16.4 (8-20) Glucose 71 (70-100) mg/dL Lactic Acid 0.8 (0.5-2.0) mmol/L Calcium 9.8 (8.6-10.3) mg/dL Magnesium 2.1 (1.9-2.7) mg/dL Total Bilirubin 0.40 (0.2-1.0) mg/dL AST 24 (13-39) U/L ALT 24 (7-52) U/L Alkaline Phosphatase 48 (34-104) U/L Total Protein 7.5 (6.4-8.9) g/dL Albumin 4.8 (3.2-5.2) g/dL Globulin 2.7 (2-4) g/dL Albumin/Globulin Ratio 1.8 (1-3) Urine Color Urine Appearance Urine pH (5-9) Ur Specific [place] (1.010-1.030) Urine Protein (Negative) Urine Ketones (Negative) Urine Blood (Negative) Urine Nitrate (Negative) Urine Bilirubin (Negative) Urine Urobilinogen (Negative) Ur Leukocyte Esterase (Negative) Urine Glucose (Negative) Salicylates < 2.50 (<30) mg/dL Urine Opiates Screen (None Detect) Acetaminophen < 15 mcg/mL Ur Barbiturates Screen (None Detect) Valproic Acid < 13.0 L (50-100) mcg/mL Ur Phencyclidine Scrn (None Detect) Ur Amphetamines Screen (None Detect) U Benzodiazepines Scrn (None Detect) Urine Cocaine Screen (None Detect) U Cannabinoids Screen (None Detect) Serum Alcohol < 10 (<10) mg/dL 10/25/17 10/25/17 Range/Units 19:13 19:13 WBC (3.5-10.8) 10^3/ul RBC (4.0-5.4) 10^6/ul Hgb (14.0-18.0) g/dl Hct (42-52) % MCV (80-94) fL MCH (27-31) pg MCHC (31-36) g/dl RDW (10.5-15) % Plt Count (150-450) 10^3/ul MPV (7.4-10.4) um3 Neut % (Auto) (38-83) % Lymph % (Auto) (25-47) % [place] % (Auto) (0-7) % Eos % (Auto) (0-6) % Baso % (Auto) (0-2) % Absolute Neuts (auto) (1.5-7.7) 10^3/ul Absolute Lymphs (auto) (1.0-4.8) 10^3/ul Absolute Monos (auto) (0-0.8) 10^3/ul Absolute Eos (auto) (0-0.6) 10^3/ul Absolute Basos (auto) (0-0.2) 10^3/ul Absolute Nucleated RBC 10^3/ul Nucleated RBC % Sodium (139-145) mmol/L Potassium (3.5-5.0) mmol/L Chloride (101-111) mmol/L Carbon Dioxide (22-32) mmol/L Anion Gap (2-11) mmol/L BUN (6-24) mg/dL Creatinine (0.67-1.17) mg/dL Est GFR ( Amer) (>60) Est GFR (Non-Af Amer) (>60) BUN/Creatinine Ratio (8-20) Glucose (70-100) mg/dL Lactic Acid (0.5-2.0) mmol/L Calcium (8.6-10.3) mg/dL Magnesium (1.9-2.7) mg/dL Total Bilirubin (0.2-1.0) mg/dL AST (13-39) U/L ALT (7-52) U/L Alkaline Phosphatase (34-104) U/L Total Protein (6.4-8.9) g/dL Albumin (3.2-5.2) g/dL Globulin (2-4) g/dL Albumin/Globulin Ratio (1-3) Urine Color Yellow Urine Appearance Clear Urine pH 5.0 (5-9) Ur Specific [place] 1.011 (1.010-1.030) Urine Protein Negative (Negative) Urine Ketones Negative (Negative) Urine Blood Negative (Negative) Urine Nitrate Negative (Negative) Urine Bilirubin Negative (Negative) Urine Urobilinogen Negative (Negative) Ur Leukocyte Esterase Negative (Negative) Urine Glucose Negative (Negative) Salicylates (<30) mg/dL Urine Opiates Screen Presumptive positive A (None Detect) Acetaminophen mcg/mL Ur Barbiturates Screen None detected (None Detect) Valproic Acid (50-100) mcg/mL Ur Phencyclidine Scrn Presumptive positive A (None Detect) Ur Amphetamines Screen None detected (None Detect) U Benzodiazepines Scrn Presumptive positive A (None Detect) Urine Cocaine Screen None detected (None Detect) U Cannabinoids Screen None detected (None Detect) Serum Alcohol (<10) mg/dL Assess/Plan/Problems-Billing Assessment: This is a 27 year old male with longstanding hx of polysubstance abuse/dual diagnosis that presented after ingestion of large amount of coricidin after just being discharged from the hospital several hours prior. 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 Will be transferred to rehab on monday- [facility] refused acceptance today. (2) Major depressive disorder Current Visit: No Status: Chronic Priority: Medium Code(s): F32.9 - MAJOR DEPRESSIVE DISORDER, SINGLE EPISODE, UNSPECIFIED SNOMED Code(s): 334093442 Comment: - feeling ready to go to rehab -denies any homicidal or suicidal ideations - waiting for bed at the rehab center- inpatient bed at [facility] on monday - Psychiatry consulted and following - Continue home meds for now (3) Full code status Current Visit: Yes Status: Acute Code(s): Z78.9 - OTHER SPECIFIED HEALTH STATUS SNOMED Code(s): 085040229 Status and Disposition: While patient is medically stable for DC, disposition inpt rehab
[2017-10-30] MEDS: CMCS Melatonin (NF) 3 MG TAB PO SCH (21:01)
[2017-10-31] MEDS: Levothyroxine TAB* 150 MCG TAB PO SCH (05:27)
[2017-10-31 08:18] VITALS: BP 95/53
[2017-10-31] MEDS: Thiamine TAB* 100 MG TAB PO SCH (08:44)
[2017-10-31] MEDS: Divalproex DR TAB(*) 500 MG PO SCH (08:44)
[2017-10-31] MEDS: Sertraline* 50 MG TAB PO SCH (08:44)
[2017-10-31] MEDS: Benztropine TAB* 1 MG PO SCH (08:44)
[2017-10-31] MEDS: Folic Acid TAB* 1 MG PO SCH (08:44)
[2017-10-31] MEDS: Nicotine Inhaler* 10 MG AMP INH PRN (10:28)
--- NOTE | 2017-11-01 02:09 | DS ---
DISCHARGE SUMMARY: DATE OF ADMISSION: 10/25/17 DATE OF DISCHARGE: 10/31/17 ATTENDING PHYSICIAN: Sung Mckeon MD* (dictated by Cari Burger NP). PRIMARY DIAGNOSES: 1. Substance abuse. 2. Overdose of Coricidin. SECONDARY DIAGNOSES: 1. Depression. 2. Psychiatric disorders. 3. Hepatitis C. 4. Hypothyroidism. STUDIES COMPLETED WHILE IN THE HOSPITAL: He had a chest x-ray on 10/25/17, radiologist impression: No evidence of acute cardiopulmonary abnormalities. He had an EKG on 10/25/17, which showed sinus tachycardia at a rate of 108. He had an electrocardiogram on 10/27/17, which showed sinus rhythm at a rate of 83. QT was 397, QTc was 467. DISCHARGE MEDICATIONS: There were no new medications. Continued home medications: 1. Cogentin 1 mg p.o. b.i.d. 2. Depakote 500 mg p.o. b.i.d. 3. Folic acid 1 mg p.o. daily. 4. Levothyroxine 150 mcg p.o. daily. 5. Sertraline 50 mg p.o. daily. 6. Thiamine 100 mg p.o. daily. 7. Multivitamin 1 tablet p.o. daily. 8. Nicotine patch 14 mg q.24 hours 1 patch transdermally daily. HISTORY OF PRESENT ILLNESS AND HOSPITAL COURSE: Mr. Angeles is a 27-year-old male with extensive past medical history of polysubstance abuse. He has a history of depression, hepatitis C, hypothyroidism and carries a history of psychiatric disorders, presented to the ED today and was discharged 6 hours prior for Coricidin overdose from the ICU. He went home. He states that he took 80 pills. He just wanted to get away from it all. He states that he is not suicidal. I asked again if he was trying to take his life, he said no, just states that he needed to get away. He does admit to taking 80 pills. Denies taking any other substance. While in the emergency room, he had routine lab work done. He was admitted to the ICU for observation and monitoring. During his hospitalization, he was cleared from the ICU. He was transferred to the medical floor and while on the medical floor, he disassembled hospital hand senior developer container and drink a large amount of hand senior developer, which induced intoxification. He was then transferred back to the ICU for closer monitoring on one-on-one care. His blood alcohol level after ingestion of the hand senior developer was 249. He was monitored overnight in the ICU and then transferred back to medical floor on a one-on-one observation for his impulsive behavior. During this episode, the patient denied any suicidal or homicidal ideations. He does report he just wanted to get high one more time before going to rehab. He was seen and evaluated by Psychiatry during this admission, who also recommended closed one-on-one observation during his hospitalization and that his behavior is related to substance abuse. At this time, Mr. Angeles has been stable. He has not had any benzodiazepines for over 48 hours. He has been calm and cooperative during his hospitalization. He is pleasant. REVIEW OF SYSTEMS: He denies any shortness of breath or chest pain. Denies any fever or chills. Denies any nausea, vomiting, or diarrhea. Denies any abdominal pain. He denies any suicidal or homicidal ideation. PHYSICAL EXAMINATION: General: He is pleasant and cooperative at this time. Eyes: Pupils are reactive and equal. No sclerae anicteric. HEENT: Mucous membranes are moist. Clear oropharynx. Neck: Normal appearance and movements. Trachea is midline. Respiratory: Symmetrical chest expansion and respiratory effort. Lungs are clear to auscultation bilaterally. There is no respiratory distress. Cardiovascular: S1, S2. Regular rate and rhythm. There are no murmurs, rubs, or gallops. There is no edema. Abdomen: Soft and nontender. Bowel sounds are positive x4. There is no distention. Extremities: No edema. There is no clubbing or cyanosis. Pedal pulses are +2 bilaterally. Skin: There are no rashes or lesions. Neurologic: He is alert and oriented x3. He is pleasant and cooperative at this time. At this time, Mr. Angeles is stable for discharge to [facility] for substance abuse rehab. Vital Signs : Temperature was 98.1, pulse 59, respirations 16, O2 saturation was 99% on room air, blood pressure was 95/53. DISCHARGE PLAN: Mr. Angeles will be discharged to [facility] today. Activity as tolerated. He should continue with polysubstance rehab as per [facility]' policy. The patient is eager to start rehabilitation. The patient should follow up with his primary care provider when able. The patient should return to the emergency room with any increased chest pain or shortness of breath, any suicidal or homicidal ideations. This is a summary of his hospitalization. For further details, please see the entire medical record. TIME SPENT: Time spent on this discharge was approximately 60 minutes, greater than half the time was spent with the patient discussing his discharge plan and implementing his discharge instructions. He will be discharged to [facility]. CONDITION ON DISCHARGE: Stable. CARI BURGER, SANDRA [id number]/CPS #: [id number] SOLO
== END 2017-10-31 10:40 | DRG 812 ==
LOC: ED 18:32 → ICU 20:33 → OBSVTOIN 10-27 11:07 → MED 10-27 13:41 → ICU 10-27 18:33 → MED 10-29 10:17
PROVIDERS: ADMIT Pediatrics; ATTEND Internal Medicine
DX: T45.0X2A Poisoning by antiallergic and antiemetic drugs, intentional self-harm, initial encounter (principal); F11.20 Opioid dependence, uncomplicated; E03.9 Hypothyroidism, unspecified; I10 Essential (primary) hypertension; J30.2 Other seasonal allergic rhinitis; F41.9 Anxiety disorder, unspecified; F43.10 Post-traumatic stress disorder, unspecified; F17.210 Nicotine dependence, cigarettes, uncomplicated; R00.0 Tachycardia, unspecified; R09.02 Hypoxemia; F10.129 Alcohol abuse with intoxication, unspecified; F34.1 Dysthymic disorder; Y92.239 Unspecified place in hospital as the place of occurrence of the external cause; T38.0X2A Poisoning by glucocorticoids and synthetic analogues, intentional self-harm, initial encounter; T49.0X2A Poisoning by local antifungal, anti-infective and anti-inflammatory drugs, intentional self-harm, initial encounter; F31.9 Bipolar disorder, unspecified; F41.8 Other specified anxiety disorders; Y90.8 Blood alcohol level of 240 mg/100 ml or more; B19.20 Unspecified viral hepatitis C without hepatic coma; F19.180 Other psychoactive substance abuse with psychoactive substance-induced anxiety disorder; Z87.01 Personal history of pneumonia (recurrent); Z86.19 Personal history of other infectious and parasitic diseases; Z85.89 Personal history of malignant neoplasm of other organs and systems; T39.1X2A Poisoning by 4-Aminophenol derivatives, intentional self-harm, initial encounter; Z72.89 Other problems related to lifestyle; Z56.0 Unemployment, unspecified; Y92.009 Unspecified place in unspecified non-institutional (private) residence as the place of occurrence of the external cause; Z80.9 Family history of malignant neoplasm, unspecified; Z91.5 Personal history of self-harm
CPT/HCPCS: 36415; 36600; 71045; 80048; 80053; 80164; 80307; 80320; 80329; 81003; 82803; 83605; 83735; 85025; 85610; 93005; 99285; 99406; A9270-GY; G0378; G0480; J2060; J3480

== ENCOUNTER 2018-01-13 15:51 | Emergency (ER) | payer OTHER ==
[2018-01-13] MEDS ORDERED: Charcoal ACTIVATED* 25 GM/120 ML BTL PO ONE (16:25)
[2018-01-13] MEDS ORDERED: NS 0.9% 1000 ML* 1,000 ML IV ONE (16:29)
[2018-01-13 16:41] LABS: ABS Basophils 0.1 10^3/ul (0-0.2); ABS Eosinophils 0.2 10^3/ul (0-0.6); ABS Lymphocytes 1.6 10^3/ul (1.0-4.8); ABS Monocytes 0.7 10^3/ul (0-0.8); ABS Neutrophils 9.8 10^3/ul (1.5-7.7); ABS Nucleated RBC 0 10^3/ul; Eosinophil % 1.4 % (0-6); Hematocrit 44 % (42-52); Hemoglobin 14.9 g/dl (14.0-18.0); Lymphocyte % 13.3 % (25-47); Mean Corpuscular HGB Conc 34 g/dl (31-36); Mean Corpuscular Hemoglobin 30 pg (27-31); Mean Corpuscular Volume 90 fL (80-94); Mean Platelet Volume 8.5 um3 (7.4-10.4); Nucleated Red Blood Cells % 0.1; Platelet Count 285 10^3/ul (150-450); Red Blood Count 4.92 10^6/ul (4.00-5.40); Red Cell Distribution Width 14 % (10.5-15); White Blood Count 12.3 10^3/ul (3.5-10.8)
--- NOTE | 2018-01-13 16:42 | RAD ---
INDICATION: Overdose COMPARISON: October 25, 2017 TECHNIQUE: An AP portable view obtained at 1626 hours is submitted. FINDINGS: Bones/Soft Tissues: There are no acute bony findings. Cardiomediastinal: The cardiomediastinal silhouette is normal. Lungs: There are no infiltrates. Pleura: There are no pleural effusions. Other: None IMPRESSION: NORMAL CHEST.
--- NOTE | 2018-01-13 16:51 | ED ---
Substance Abuse/Use - HPI Summary HPI Summary: This is shantanu Shannonsain documenting for attending Dr. Gorge Fenton MD. A 27 y/o male presents to ED s/p overdose. Currently the patient is high. According to the patient he took 48 pills of Coricidin 30 mg around 1300. The medication was purchased over the counter. He stated that he wanted to get high. He noted that he has done this before with the same amount of pills to get high as he likes the feeling. He stated that he is only in the ED this time because his parents noticed he was acting strange and brought him here, "it comes down to where I live". He stated that he knows the consequences of his actions. The patient did not want his family present. 1720 - The patient told family about this overdose/drug issue. As per family, the patient has been having this issue for 10 years and has not done anything to resolve the issue. The family would like to help the patient but at this point he has not been cooperative or taking initiative to resolve his addiction. They noted that he either buys or steals the cheap pills and last time he has here about 1 month ago he took 88 pills. 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 He has been in and out of mental health facilities. They do not want anything to do with the patient unless he gets clean. The patient noted that he will do better and do what he needs to do such as going to his appointments. He is asking for one more chance even though he was given so many. The family will talk about the situation in the ED room alone. - History Of Current Complaint Chief Complaint: EDOverdose Stated Complaint: POSS OVERDOSE Time Seen by Provider: 01/13/18 16:12 Hx Obtained From: Patient Ingestion History: Type/Name Of Drug - Coricidin, Amount Ingested - 48 pills, 30 mg, Approximate Time Of Ingestion - 1300 Overdose Characteristics: Oral Aggravating Factor(s): Nothing Alleviating Factor(s): Nothing Associated Signs And Symptoms: Negative - Allergies/Home Medications Allergies/Adverse Reactions: Allergies Allergy/AdvReac Type Severity Reaction Status Date / Time No Known Allergies Allergy Verified 10/23/17 19:21 PMH/Surg Hx/FS Hx/Imm Hx Endocrine/Hematology History: Reports: Hx Thyroid Disease - Hypothyroidism Denies: Hx Anticoagulant Therapy, Hx Blood Disorders, Hx Blood Transfusions, Hx Bone Marrow Disease, Hx Diabetes, Hx Systemic Lupus Erythematosus, Hx Sickle Cell Disease, Hx Anemia, Hx Unexplained Bleeding, Other Endocrine/Hematological Disorders Cardiovascular History: Reports: Hx Hypertension Denies: Hx Aneurysm, Hx Angina, Hx Angioplasty, Hx Auto Implanted Cardiovert Defib, Hx Cardiac Arrest, Hx Cardiomegaly, Hx Congenital Heart Disease, Hx Congestive Heart Failure, Hx Coronary Artery Disease, Hx Deep Vein Thrombosis, Hx Embolism, Hx Hypercholesterolemia, Hx Hypotension, Hx Pacemaker/ICD, Hx Peripheral Vascular Disease, Hx Rheumatic Fever, Hx Syncope, Hx Valvular Heart Disease, Other Cardiovascular Problems/Disorders Respiratory History: Reports: Hx Pneumonia, Hx Seasonal Allergies Denies: Hx Asthma, Hx Chronic Bronchitis, Hx Chronic Obstructive Pulmonary Disease (COPD), Hx Cystic Fibrosis, Hx Lung Cancer, Hx Pleural Effusion, Hx Pulmonary Edema, Hx Pulmonary Embolism, Hx Sleep Apnea, Other Respiratory Problems/Disorders GI History: Reports: Hx Ulcer Denies: Hx Cirrhosis, Hx Crohn's Disease, Hx Diverticulosis, Hx Gall Bladder Disease, Hx Gastroesophageal Reflux Disease, Hx Gastrointestinal Bleed, Hx Hiatal Hernia, Hx Irritable Bowel, Hx Jaundice, Hx Obstructive Bowel, Hx Ileostomy, Hx Pyloric Stenosis, Other GI Disorders History: Denies: Hx Acute Renal Failure, Hx Benign Prostatic Hyperplasia, Hx Chronic Renal Failure, Hx Dialysis, Hx Kidney Infection, Hx Kidney Stones, Hx Renal Disease, Other Problems/Disorders Musculoskeletal History: Denies: Hx Arthritis, Hx Back Problems, Hx Bursitis, Hx Congenital Bone Abnormalities, Hx Fibromyalgia, Hx Gout, Hx Orthopedic Injury, Hx Osteoporosis, Hx Scoliosis, Hx Tendonitis, Other Musculoskeletal History Sensory History: Reports: Hx Contacts or Glasses Denies: Hx Cataracts, Hx Eye Injury, Hx Eye Prosthesis, Hx Glaucoma, Hx Legally Blind, Hx Macular Degeneration, Hx Vision Problem, Hx Hearing Aid, Other Sensory Impairments Opthamlomology History: Reports: Hx Contacts or Glasses Denies: Hx Cataracts, Hx Eye Injury, Hx Eye Prosthesis, Hx Glaucoma, Hx Legally Blind, Hx Macular Degeneration, Hx Vision Problem, Other Sensory Impairments Neurological History: Reports: Hx Headaches, Hx Seizures Denies: Hx Dementia, Hx Developmental Delay, Hx Migraine, Hx Nerve Disease, Hx Spinal Cord Injury, Hx Transient Ischemic Attacks (TIA), Other Neuro Impairments/Disorders Psychiatric History: Reports: Hx Anxiety, Hx Depression, Hx Post Traumatic Stress Disorder, Hx Inpatient Treatment, Hx Community Mental Health Tx, Hx Bipolar Disorder, Hx of Violent Episodes Against Others, Hx Substance Abuse, Other Psychiatric Issues/Disorders Denies: Hx Attention Deficit Hyperactivity Disorder, Hx Eating Disorder, Hx Panic Disorder, Hx Schizophrenia, Hx Suicide Attempt - Surgical History Surgery Procedure, Year, and Place: none - Immunization History Date of Tetanus Vaccine: Unknown Date of Influenza Vaccine: None Infectious Disease History: No Infectious Disease History: Reports: Hx Hepatitis - Hep C Denies: Hx Clostridium Difficile, Hx Human Immunodeficiency Virus (HIV), Hx of Known/Suspected MRSA, Hx Shingles, Hx Tuberculosis, Hx Known/Suspected VRE, Hx Known/Suspected VRSA, History Other Infectious Disease, Traveled Outside the [place] in Last 30 Days - Family History Known Family History: Positive: Other - cancer Negative: Renal Disease - Social History Alcohol Use: Weekly Alcohol Amount: 9-12 drinks 3-5 days/week Hx Substance Use: Yes Substance Use Type: Reports: Cocaine, Heroin, Other Substance Use Comment - Amount & Last Used: ecstacy; coricidin Hx Tobacco Use: Yes Smoking Status (MU): Light Every Day Tobacco Smoker Type: Cigarettes Have You Smoked in the Last Year: Yes Review of Systems Negative: Fever Neurological: Other - NEGATIVE: SI All Other Systems Reviewed And Are Negative: Yes Physical Exam - Summary Physical Exam Summary: VITAL SIGNS: Reviewed. GENERAL: Patient is a well-developed and nourished male who is lying comfortable in the stretcher. Patient is not in any acute respiratory distress. Patient is diaphoretic. HEAD AND FACE: No signs of trauma. No ecchymosis, hematomas or skull depressions. No sinus tenderness. EYES: PERRLA, EOMI x 2, No injected conjunctiva, no nystagmus. Dilated pupils. EARS: Hearing grossly intact. Ear canals and tympanic membranes are within normal limits. MOUTH: Oropharynx within normal limits. NECK: Supple, trachea is midline, no adenopathy, no JVD, no carotid bruit, no c- spine tenderness, neck with full ROM. CHEST: Symmetric, no tenderness at palpation LUNGS: Clear to auscultation bilaterally. No wheezing or crackles. CVS: Tachycardic, S1 and S2 present, no murmurs or gallops appreciated. ABDOMEN: Soft, non-tender. No signs of distention. No rebound no guarding, and no masses palpated. Bowel sounds are normal. EXTREMITIES: FROM in all major joints, no edema, no cyanosis or clubbing. Not ataxic. NEURO: Alert and oriented x 3. No acute neurological deficits. Speech is normal and follows commands. SKIN: Dry and warm Triage Information Reviewed: Yes Vital Signs On Initial Exam: Initial Vitals Temp Pulse Resp BP Pulse Ox 98.4 F 124 14 151/106 96 01/13/18 15:56 01/13/18 15:56 01/13/18 15:56 01/13/18 15:56 01/13/18 15:56 Vital Signs Reviewed: Yes Diagnostics - Vital Signs Vital Signs Temp Pulse Resp BP Pulse Ox 01/13/18 15:56 98.4 F 124 14 151/106 96 - Laboratory Lab Results: Lab Results 01/13/18 Range/Units 16:33 WBC 12.3 H (3.5-10.8) 10^3/ul RBC 4.92 (4.00-5.40) 10^6/ul Hgb 14.9 (14.0-18.0) g/dl Hct 44 (42-52) % MCV 90 (80-94) fL MCH 30 (27-31) pg MCHC 34 (31-36) g/dl RDW 14 (10.5-15) % Plt Count 285 (150-450) 10^3/ul MPV 8.5 (7.4-10.4) um3 Neut % (Auto) 79.0 (38-83) % Lymph % (Auto) 13.3 L (25-47) % Stokes % (Auto) 5.7 (0-7) % Eos % (Auto) 1.4 (0-6) % Baso % (Auto) 0.6 (0-2) % Absolute Neuts (auto) 9.8 H (1.5-7.7) 10^3/ul Absolute Lymphs (auto) 1.6 (1.0-4.8) 10^3/ul Absolute Monos (auto) 0.7 (0-0.8) 10^3/ul Absolute Eos (auto) 0.2 (0-0.6) 10^3/ul Absolute Basos (auto) 0.1 (0-0.2) 10^3/ul Absolute Nucleated RBC 0 10^3/ul Nucleated RBC % 0.1 Result Diagrams: 01/13/18 16:33 01/13/18 16:33 Lab Statement: Any lab studies that have been ordered have been reviewed, and results considered in the medical decision making process. - Radiology CXR Radiology Interpretation Completed By: Radiologist - Normal chest. ED physician reviewed this radiology report. - EKG 1856 Cardiac Rate: NL - 90 BPM EKG Rhythm: Sinus Rhythm EKG Interpretation: No ST elevation. Normal axis. Course/Dx - Course Assessment/Plan: This patient is a 27-year-old male who presents to the emergency room with mother with a chief complaint of having taken approximately 48 pills of Coricidin 30 mg. PO. given The patient reports that he took his medications because he wanted to get high. At this point the patient is alert and oriented 3 and he gives the history. He also reports that he took these medications before to get high. In the physical exam the patient is tachycardic , has dilated pupils, he is slightly diaphoretic, but not ataxic. We discussed the case with the poison control and they just recommended an EKG and observation. They reported that he would not benefit from charcoal. They requested to observe the patient for 6 hours since the onset of symptoms. Blood test results without any significant abnormality except for what was a count of 12.3, TSH of 5.77. In the ED course the patient was given IV fluids, at this point the patient is back to normal state. He is alert and oriented 3. He is ambulating w/o ataxia, he is sober and he will be going back home with his parents. Before discharge patient states that he is not suicidal or homicidal. He only takes this substace to get high. Parents also agreed to take him back home and they feel safe taking him home. - Diagnoses Provider Diagnoses: Accidental overdose Discharge - Sign-Out/Discharge Documenting (check all that apply): Patient Departure - DISCHARGE - Discharge Plan Condition: Stable Disposition: HOME Patient Education Materials: Polysubstance Abuse (ED) Referrals: No Primary Care PhysNOPCP [Primary Care Provider] - [facility] [Outside] - 1 Week Additional Instructions: FOLLOW UP WITH YOUR PRIMARY CARE PROVIDER WITHIN ONE WEEK FOR HIGH BLOOD PRESSURE NOTED TODAY. RETURN TO THE ED FOR ANY WORSENING OR NEW SYMPTOMS.
[2018-01-13 17:01] LABS: EGFR Non-African American 92.8 (>60)
[2018-01-13 20:05] VITALS: BP 129/89
== END 2018-01-13 20:01 | disposition home or self-care (01) ==
LOC: ED 15:51
DX: T50.991A Poisoning by other drugs, medicaments and biological substances, accidental (unintentional), initial encounter (principal); Y92.9 Unspecified place or not applicable; Z80.9 Family history of malignant neoplasm, unspecified; F17.210 Nicotine dependence, cigarettes, uncomplicated
CPT/HCPCS: 36415; 71045; 80053; 80320; 80329; 82550; 83605; 84443; 85025; 93005; 99282; G0480

== ENCOUNTER 2018-01-14 10:46 | Inpatient (IN) | payer OTHER ==
[2018-01-14 11:19] LABS: ABS Basophils 0.1 10^3/ul (0-0.2); ABS Eosinophils 0.2 10^3/ul (0-0.6); ABS Lymphocytes 1.9 10^3/ul (1.0-4.8); ABS Monocytes 0.8 10^3/ul (0-0.8); ABS Neutrophils 9.2 10^3/ul (1.5-7.7); ABS Nucleated RBC 0 10^3/ul; Eosinophil % 1.4 % (0-6); Hematocrit 47 % (42-52); Mean Corpuscular HGB Conc 34 g/dl (31-36); Mean Corpuscular Hemoglobin 30 pg (27-31); Mean Corpuscular Volume 89 fL (80-94); Mean Platelet Volume 8.4 um3 (7.4-10.4); Nucleated Red Blood Cells % 0.1; Platelet Count 322 10^3/ul (150-450); Red Blood Count 5.31 10^6/ul (4.00-5.40); Red Cell Distribution Width 14 % (10.5-15); White Blood Count 12.2 10^3/ul (3.5-10.8)
--- NOTE | 2018-01-14 11:34 | ED ---
Psychiatric Complaint - HPI Summary HPI Summary: This is shantanu Ocampo documenting for attending Gorge Fenton MD. This patient is a 27 year old M presenting to [facility] with a chief complaint of SI since 1 day ago. The patient was discharged from [facility] 1 day ago and seen by Dr. Fenton for a possible Coricidin overdose. The patient reports that he has been living with his parents but this morning they told him that they want him to move out. The patient notes that he does not have another place to stay and says he needs to clear his head. Patient denies taking any drugs today. The patient reports that he was tempted to throw himself in front of a car while walking to [facility] this morning. The patient rates the pain 0/10 in severity. Symptoms aggravated by recent stress. Symptoms alleviated by nothing. Patient has hx of substance abuse. - History Of Current Complaint Chief Complaint: EDMentalHealth Time Seen by Provider: 01/14/18 11:03 Hx Obtained From: Patient Onset/Duration: Sudden Onset, Lasting Hours, Still Present Timing: Constant Severity Initially: Moderate Severity Currently: Moderate Aggravating Factor(s): Recent Stress Alleviating Factor(s): Nothing Related History: Positive For: Admissions Related To Substance Abuse Has Suicidal: Reports: With A Plan - Allergies/Home Medications Allergies/Adverse Reactions: Allergies Allergy/AdvReac Type Severity Reaction Status Date / Time No Known Allergies Allergy Verified 10/23/17 19:21 Home Medications: Home Medications Paliperidone Palmitate [Invega Sustenna] 234 mg IM MONTHLY 01/14/18 [History Confirmed 01/14/18] PMH/Surg Hx/FS Hx/Imm Hx Endocrine/Hematology History: Reports: Hx Thyroid Disease - Hypothyroidism Denies: Hx Anticoagulant Therapy, Hx Blood Disorders, Hx Blood Transfusions, Hx Bone Marrow Disease, Hx Diabetes, Hx Systemic Lupus Erythematosus, Hx Sickle Cell Disease, Hx Anemia, Hx Unexplained Bleeding, Other Endocrine/Hematological Disorders Cardiovascular History: Reports: Hx Hypertension Denies: Hx Aneurysm, Hx Angina, Hx Angioplasty, Hx Auto Implanted Cardiovert Defib, Hx Cardiac Arrest, Hx Cardiomegaly, Hx Congenital Heart Disease, Hx Congestive Heart Failure, Hx Coronary Artery Disease, Hx Deep Vein Thrombosis, Hx Embolism, Hx Hypercholesterolemia, Hx Hypotension, Hx Pacemaker/ICD, Hx Peripheral Vascular Disease, Hx Rheumatic Fever, Hx Syncope, Hx Valvular Heart Disease, Other Cardiovascular Problems/Disorders Respiratory History: Reports: Hx Pneumonia, Hx Seasonal Allergies Denies: Hx Asthma, Hx Chronic Bronchitis, Hx Chronic Obstructive Pulmonary Disease (COPD), Hx Cystic Fibrosis, Hx Lung Cancer, Hx Pleural Effusion, Hx Pulmonary Edema, Hx Pulmonary Embolism, Hx Sleep Apnea, Other Respiratory Problems/Disorders GI History: Reports: Hx Ulcer Denies: Hx Cirrhosis, Hx Crohn's Disease, Hx Diverticulosis, Hx Gall Bladder Disease, Hx Gastroesophageal Reflux Disease, Hx Gastrointestinal Bleed, Hx Hiatal Hernia, Hx Irritable Bowel, Hx Jaundice, Hx Obstructive Bowel, Hx Ileostomy, Hx Pyloric Stenosis, Other GI Disorders History: Denies: Hx Acute Renal Failure, Hx Benign Prostatic Hyperplasia, Hx Chronic Renal Failure, Hx Dialysis, Hx Kidney Infection, Hx Kidney Stones, Hx Renal Disease, Other Problems/Disorders Musculoskeletal History: Denies: Hx Arthritis, Hx Back Problems, Hx Bursitis, Hx Congenital Bone Abnormalities, Hx Fibromyalgia, Hx Gout, Hx Orthopedic Injury, Hx Osteoporosis, Hx Scoliosis, Hx Tendonitis, Other Musculoskeletal History Sensory History: Reports: Hx Contacts or Glasses Denies: Hx Cataracts, Hx Eye Injury, Hx Eye Prosthesis, Hx Glaucoma, Hx Legally Blind, Hx Macular Degeneration, Hx Vision Problem, Hx Hearing Aid, Other Sensory Impairments Opthamlomology History: Reports: Hx Contacts or Glasses Denies: Hx Cataracts, Hx Eye Injury, Hx Eye Prosthesis, Hx Glaucoma, Hx Legally Blind, Hx Macular Degeneration, Hx Vision Problem, Other Sensory Impairments Neurological History: Reports: Hx Headaches, Hx Seizures Denies: Hx Dementia, Hx Developmental Delay, Hx Migraine, Hx Nerve Disease, Hx Spinal Cord Injury, Hx Transient Ischemic Attacks (TIA), Other Neuro Impairments/Disorders Psychiatric History: Reports: Hx Anxiety, Hx Depression, Hx Post Traumatic Stress Disorder, Hx Inpatient Treatment, Hx Community Mental Health Tx, Hx Bipolar Disorder, Hx of Violent Episodes Against Others, Hx Substance Abuse, Other Psychiatric Issues/Disorders Denies: Hx Attention Deficit Hyperactivity Disorder, Hx Eating Disorder, Hx Panic Disorder, Hx Schizophrenia, Hx Suicide Attempt - Surgical History Surgery Procedure, Year, and Place: none - Immunization History Date of Tetanus Vaccine: Unknown Date of Influenza Vaccine: None Infectious Disease History: No Infectious Disease History: Reports: Hx Hepatitis - Hep C Denies: Hx Clostridium Difficile, Hx Human Immunodeficiency Virus (HIV), Hx of Known/Suspected MRSA, Hx Shingles, Hx Tuberculosis, Hx Known/Suspected VRE, Hx Known/Suspected VRSA, History Other Infectious Disease, Traveled Outside the [place] in Last 30 Days - Family History Known Family History: Positive: None - reviewed & noncontributory, Other - cancer Negative: Renal Disease - Social History Alcohol Use: Weekly Alcohol Amount: 9-12 drinks 3-5 days/week Hx Substance Use: Yes Substance Use Type: Reports: Cocaine, Heroin, Other Substance Use Comment - Amount & Last Used: ecstacy; coricidin Hx Tobacco Use: Yes Smoking Status (MU): Light Every Day Tobacco Smoker Type: Cigarettes Have You Smoked in the Last Year: Yes Review of Systems Negative: Fever Negative: Epistaxis Negative: Vomiting Positive: Other - SI with a plan All Other Systems Reviewed And Are Negative: Yes Physical Exam - Summary Physical Exam Summary: VITAL SIGNS: Reviewed. GENERAL: Patient is a well-developed and nourished MALE who is lying comfortable in the stretcher. Patient is not in any acute respiratory distress. HEAD AND FACE: No signs of trauma. No ecchymosis, hematomas or skull depressions. No sinus tenderness. EYES: PERRLA, EOMI x 2, No injected conjunctiva, no nystagmus. EARS: Hearing grossly intact. Ear canals and tympanic membranes are within normal limits. MOUTH: Oropharynx within normal limits. NECK: Supple, trachea is midline, no adenopathy, no JVD, no carotid bruit, no c- spine tenderness, neck with full ROM. CHEST: Symmetric, no tenderness at palpation LUNGS: Clear to auscultation bilaterally. No wheezing or crackles. CVS: Regular rate and rhythm, S1 and S2 present, no murmurs or gallops appreciated. ABDOMEN: Soft, non-tender. No signs of distention. No rebound no guarding, and no masses palpated. Bowel sounds are normal. EXTREMITIES: FROM in all major joints, no edema, no cyanosis or clubbing. NEURO: Alert and oriented x 3. No acute neurological deficits. Speech is normal and follows commands. SKIN: Dry and warm PSYCH: Depressed, quiet, and admits to suicidal thought and plan. No homicidal thoughts or plan. No signs of psychosis or pressure speech. No tangential speech. Triage Information Reviewed: Yes Vital Signs On Initial Exam: Initial Vitals Temp Pulse Resp BP Pulse Ox 97.0 F 115 15 119/80 98 01/14/18 10:47 01/14/18 10:47 01/14/18 10:47 01/14/18 10:47 01/14/18 10:47 Vital Signs Reviewed: Yes Diagnostics - Vital Signs Vital Signs Temp Pulse Resp BP Pulse Ox 01/14/18 10:47 97.0 F 115 15 119/80 98 - Laboratory Lab Results: Lab Results 01/14/18 Range/Units 11:09 WBC 12.2 H (3.5-10.8) 10^3/ul RBC 5.31 (4.00-5.40) 10^6/ul Hgb 16.0 (14.0-18.0) g/dl Hct 47 (42-52) % MCV 89 (80-94) fL MCH 30 (27-31) pg MCHC 34 (31-36) g/dl RDW 14 (10.5-15) % Plt Count 322 (150-450) 10^3/ul MPV 8.4 (7.4-10.4) um3 Neut % (Auto) 75.1 (38-83) % Lymph % (Auto) 16.0 L (25-47) % [place] % (Auto) 6.6 (0-7) % Eos % (Auto) 1.4 (0-6) % Baso % (Auto) 0.9 (0-2) % Absolute Neuts (auto) 9.2 H (1.5-7.7) 10^3/ul Absolute Lymphs (auto) 1.9 (1.0-4.8) 10^3/ul Absolute Monos (auto) 0.8 (0-0.8) 10^3/ul Absolute Eos (auto) 0.2 (0-0.6) 10^3/ul Absolute Basos (auto) 0.1 (0-0.2) 10^3/ul Absolute Nucleated RBC 0 10^3/ul Nucleated RBC % 0.1 Result Diagrams: 01/14/18 11:09 01/14/18 11:09 Lab Statement: Any lab studies that have been ordered have been reviewed, and results considered in the medical decision making process. - EKG 12:10 Cardiac Rate: Tachycardia - at 145 bpm EKG Rhythm: Sinus Tachycardia ST Segment: Normal EKG Interpretation: Sinus tachycardia with no ST elevations, prolonged QT waves Re-Evaluation - Re-Evaluation 1st re-evaluation Re-Evaluation Time: 11:50 Change: Worse Comment: We noticed that the patient became lethargic and now has dilated pupils. He is ataxic. Patient seems confused. He has brisk reflexes. We found with his belongings that he possibly took 68 tablets of Coricidin (48 tablets of chlorophaniramine maleate 4mg, dextromethaorphan HBr 30 mg and 20 tablets of Robitussin) . Patient was placed on a cafeteria monitor and 2 IV access points were established. Fluids were given. EKG will be performed. Patient will be given charcoal, poison control will be contacted. Active seizure for 45 seconds Course/Dx - Course Assessment/Plan: This patient is a 27-year-old male presents to the emergency department with a chief complaint of having suicidal thoughts and attempt. He reports that he is so depressed that he wanted to himself in front of a car this morning. Patient reports that she had an argument with her mother this morning and he was asked to leave her house. Patient reports that he is unable to cope with that unable to care for himself therefore he wants to end his life. Patient was seen yesterday in the emergency department because he took an overdose of Coricidin. After approximately 30 minutes that the patient was in the emergency department we noticed a change where the patient a seems to be confused, is slow to answer questions. Now the patient has dilated pupils, the patient is ataxic. We placed the patient in the bed we place him in a cafeteria monitor we obtained 2 IV accesses on suddenly the patient develop a seizure which lasted approximately 45 seconds. The patient was given 2 mg of Ativan and the seizure subsided. Right now the patient is in a postictal state. He seems that the patient has taken 68 tablets of Coricidin (48 tablets of chlorophaniramine maleate 4mg, dextromethaorphan HBr 30 mg and 20 tablets of Robitussin). Blood test results shows a white blood cell count of 12.2, couple glasses of 20 any crepitus 13, AST is 64, TSH is 7.56, urinalysis is negative for UTI, urine toxicology positive for Phencyclidine. At this point I discussed my physical exam and findings with Dr. Asif from ICU who came and assessed the patient. After his assessment he accepted the patient for admission. I ordered an ABG and results will be follow with Dr. Asif. At this time the patient has a sinus tachycardia with a prolonged QTC, blood pressure is 128/75, O2 sat is 96% on room air. Patient is going to the ICU services. Dr. Asif within intubate the patient if needed. - Differential Dx/Clinical Impression Provider Diagnosis: Overdose, Seizure - Physician Notifications Discussed Care Of Patient With: Sumeet Asif Time Discussed With Above Provider: 12:08 Instructed by Provider To: Admit As Inpatient - Critical Care Time Critical Care Time: 75-104 min Discharge - Sign-Out/Discharge Documenting (check all that apply): Patient Departure - Discharge Plan Condition: Stable Disposition: ADMITTED TO [facility] - Billing Disposition and Condition Condition: STABLE Disposition: Admitted to [facility]
[2018-01-14 11:35] LABS: Urine Appearance Clear; Urine Blood Negative (Negative); Urine Color Amber; Urine Ketones Trace (Negative); Urine Protein Negative (Negative); Urine Specific Gravity 1.027 (1.010-1.030); Urine Urobilinogen Negative (Negative)
[2018-01-14 11:37] LABS: EGFR Non-African American 78.6 (>60)
[2018-01-14] MEDS ORDERED: LORazepam INJ* 2 MG/ML 1 ML VIAL ONE (12:03)
[2018-01-14] MEDS ORDERED: NS 0.9% 1000 ML* 2,000 ML IV ONE (12:11)
[2018-01-14] MEDS ORDERED: LORazepam INJ* 2 MG/ML 1 ML VIAL IV PUSH ONE (12:11)
[2018-01-14] MEDS: NS 0.9% 1000 ML* 2,000 ML IV ONE ×2 (12:14→12:16)
--- NOTE | 2018-01-14 16:02 | HP ---
ADMISSION HISTORY AND PHYSICAL: DATE OF ADMISSION: 01/14/18 REASON FOR ADMISSION: Drug overdose as an apparent suicide gesture. HISTORY OF PRESENT ILLNESS: This patient is a 27-year-old white male, well known to this facility with multiple admissions for drug overdose. The most recent admission here was in October of this year. The patient was in the emergency room yesterday for the same and was brought home by his mother and this morning was told by his mother to leave the house and he subsequently went out and ingested 20 Robitussin Liqui-Gels and 48 capsules containing 4 mg of chlorpheniramine and 30 mg of dextromethorphan, presumably as a suicide gesture. Antihistamines and cough syrups are the patient's modus operandi for overdoses. In the emergency department, the patient had a grand mal seizure and was given 2 mg of Ativan with cessation of seizure activity. Following this , the patient was awake, but poorly responsive and was hemodynamically stable, although tachycardic. PAST MEDICAL HISTORY: Additional medical problems include hypothyroidism, hepatitis C, and depression. OUTPATIENT MEDICATIONS: 1. Synthroid 150 mcg daily. 2. Zoloft 50 mg daily. 3. Depakote 500 mg twice daily. 4. Folic acid 1 mg daily. 5. Thiamine 100 mg daily. ALLERGIES: There are no known medication allergies. SOCIAL HISTORY: The patient does not work and lives with his mother. He denies smoking or drinking. REVIEW OF SYSTEMS: Unobtainable. PHYSICAL EXAMINATION GENERAL: Revealed a healthy-appearing male, who was staring at the ceiling and not responding to verbal commands. VITAL SIGNS: Temp was 97, heart rate was 145 and regular, respiratory rate was 31, O2 sat was 96% on nasal O2, blood pressure was 125/76. HEENT: Pupils were dilated, but responsive. There was no nystagmus. Face was flushed. LUNGS: Clear. CARDIAC: Exam was unrevealing. He was tachycardic with regular rhythm. ABDOMEN: Not distended. EXTREMITIES: Warm, not cyanotic, and not edematous. There was no diaphoresis. NEUROLOGIC: As mentioned, the patient was awake, but unresponsive to verbal commands and moved all extremities equally in response to pain. DIAGNOSTIC STUDIES/LAB DATA: Admission laboratory data was significant for a bicarb of 20, anion gap of 13. TSH elevated at 7.56. White count 12.2. Blood gas showing a pH of 7.02, PCO2 of 33, PO2 of 116, calculated bicarb of 8. Toxicology showed serum alcohol level less than 10, salicylates less than 2.5, acetaminophen less than 15. Urinary tox screen was presumptive positive for phencyclidine, otherwise negative. EKG showed sinus tachycardia with prolonged QT interval. Chest x-ray showed no cardiomegaly and clear lung francois. IMPRESSION: Drug overdose (antihistamines, dextromethorphan) with apparent suicide intent in a patient with multiple prior drug overdoses. MANAGEMENT PLAN: Management will generally consist of supportive care with aggressive IV fluids, benzodiazepines for sedation or for seizure activity, and if necessary bicarbonate for arrhythmias. The etiology of the metabolic acidosis in this case may include lactic acidosis from the patient's seizure, and the acidosis will otherwise not require any therapy. Once mentation has recovered, a psychiatric evaluation will be obtained. CRITICAL CARE TIME: 60 minutes. [id number]/[place] #: [id number] SOLO
[2018-01-14] MEDS: LORazepam INJ* 2 MG/ML 1 ML VIAL IV PUSH PRN (18:14)
[2018-01-14 20:15] LABS: EGFR Non-African American 87.6 (>60)
[2018-01-14] MEDS: Heparin VIAL(*) 5000 UNITS/ML VIAL (FIVE THOUSAND) SUBCUT SCH (21:56)
[2018-01-15] MEDS ORDERED: Levothyroxine TAB* 150 MCG TAB PO SCH (06:00)
[2018-01-15] MEDS: LORazepam INJ* 2 MG/ML 1 ML VIAL IV PUSH PRN ×3 (06:17→17:00)
[2018-01-15] MEDS ORDERED: Nicotine PATCH 21 MG/24 HR* PATCH TRANSDERM SCH (08:00)
[2018-01-15] MEDS ORDERED: Sertraline* 50 MG TAB PO SCH (09:00)
[2018-01-15] MEDS ORDERED: Divalproex DR TAB(*) 500 MG PO SCH (09:00)
[2018-01-15] MEDS: Heparin VIAL(*) 5000 UNITS/ML VIAL (FIVE THOUSAND) SUBCUT SCH (09:21)
[2018-01-15] MEDS ORDERED: clonazePAM TAB(*) 1 MG PO PRN (12:41)
--- NOTE | 2018-01-15 13:42 | PN ---
Date of Service: 01/15/18 Critical Care Services: Has done well since admission, and now is alert, oriented, and appears comfortable. Vital Signs: Temp Pulse Resp BP SpO2 FiO2 99 F 110 13 135/102 96 Physical Exam: Gen:No distress HEENT:Pupils midposition and reactive. No nystagmus Lungs:Clear Extremities:No cyanosis or edema Neuro: No tremors or myoclonus Fluid Balance (Past 24 Hours): 01/15/18 06:59 Intake Total 5352 Output Total 3425 Balance 1927 Weight 230 lb 13.184 oz Intake: IV Fluids 4752 LR 2752 Oral 600 Output: Urine 3425 Labs: 01/14/18 01/14/18 11:09 13:26 Sodium 140 Potassium 4.1 Chloride 107 Carbon Dioxide 20 L Anion Gap 13 H BUN 12 Creatinine 1.12 Est GFR ( Amer) 95.2 Est GFR (Non-Af Amer) 78.6 BUN/Creatinine Ratio 10.7 Glucose 82 Lactic Acid 3.5 Calcium 10.2 Magnesium Total Bilirubin 0.60 AST 35 ALT 64 H Alkaline Phosphatase 74 Total Creatine Kinase 51 Total Protein 7.9 Albumin 4.8 Globulin 3.1 Albumin/Globulin Ratio 1.5 TSH 7.56 H Salicylates < 2.50 Acetaminophen < 15 Valproic Acid < 13.0 L Serum Alcohol < 10 01/14/18 01/14/18 19:45 19:45 VBG pH 7.41 VBG pCO2 36 L VBG pO2 58 H VBG HCO3 23.6 L VBG O2 Saturation 93.1 H Sodium 139 Potassium 3.5 Chloride 108 Carbon Dioxide 22 Anion Gap 9 BUN 8 Creatinine 1.02 Est GFR ( Amer) 106.0 Est GFR (Non-Af Amer) 87.6 BUN/Creatinine Ratio 7.8 L Glucose 75 Lactic Acid 0.6 Calcium 8.6 Magnesium 2.2 Studies: None today Nutrition: Oral diet Impression: Signs of antihistamine overdose have completely resolved. Plan: Patient medically cleared for evaluation by psychiatry regarding suicide attempt /gesture. Outpatient Rx with Klonopin and Zoloft has been started.
--- NOTE | 2018-01-15 13:58 | CONSULT ---
Consult Consult: Psychiatry consulted due to suicidal gesture prior to admission and overdose on cold medicine Coricidin. S: patient is a 27yo wm, known to [facility] for dozens of hospitalizations for Coricidin abuse. The patient was last admitted to [facility] for similar episodes in october of this year. He tells me that since his last admission, he went to rehab at [facility] in [place] for approximately 2 weeks. He states he left early because "wanting to use." He stayed at [facility] in [place] for 2 days then took a bus to [place]. He states he was residing at the [facility] and seeing Jeremy Guzman, therapist at [facility]. He denies being prescribed medications or having a medication provider. He states he was substance free for 25 days and attending [] meetings. He reports relapsing on December 15. 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 He underwent a colonoscopy and treated with IV opiates and antibiotics. Patient states he returned to his aunt's home in mid-December under the assumptions that he would remain substance free. Patient reports looking for a package of instant coffee in his backpack and coming upon Coricidin that he forgot he had. He impulsively took them and was told my his parents that they don't "want anything to do with me." He states he walked about traffic and tried to end his life by walking in front of a car "but it swerved." Patient continues to endorse suicidal ideation and requests to be admitted to [facility] for "a couple days to regroup." He states he has been thinking about going to [facility] or the [facility] in [place]. We discuss motivation for and barriers to recovery. Patient identifies motivating factor is his caring nature and barrier is "ambivalence." Past Psychiatric history: patient has a significant history of ED visits and ICU /BSU admissions at [facility] and various hospitals in [place]. He has multiple failed referrals to substance use treatment, and he has a history of requesting admission with complaints of AH and suicidality in the setting of Coricidin use. He also has a history of recanting mental health symptoms and identifying that he said these things to be admitted to the hospital. The patient has been hospitalized for longer term at [facility]. He has been treated several times for rhabdomyolisis directly r/t substance use. He has been treated at [facility], [facility] and most recently, [facility] outpatient. He has been diagnosed in the past with opiate dependence, Coricidin dependence, substance- induced mood disorder, malingering and unspecified personality d/o. Past medication trials include, but not limited to: aripiprazole, risperidone, olanzapine, sertraline, citalopream, fluoxetine, trazodone, buproprion, naltrexone, suboxone, topamax, prazosin, lithium, antabuse, benzodiazepines and stimulants. Past suicide/homicide history: The patient has a history of suicide attempts and prior suicidal behaviors. HE has been admitted to the ICU several times after accidental drug overdose. Substance Use History: The patient has a history of IV opiate use, at the peak he was using 5 to 6 packs heroin per day. His drug of choice is OTC Coricidin. He reports a history of alcohol use, hand senior environmental practice leader use, cannabis and cocaine use. He smokes cigarettes, approx 1/2ppd. Past Medical Hx: Remarkable for hepatitis C, hypothyroidism, ischemic colitis. Current medications: levothyroxine 150mcg daily, sertraline 50mg daily per ICU provider. Legal history: The patient has a history of arrest on charges for petit ashlieny and has served penitentiary time. THere is no noted history of violence or aggression. MSE: The patient is a moderately built white male, who appears stated age. He is sleeping on ICU bed upon approach, and easy to rouse. He has new glasses since last meeting. NO psychomotor abnormality activity noted. He is A_Ox3. His eye contact is good and he is fully cooperative with interview, answers questions fully. His mood is dysphoric and affect constricted. Thought process is circumstantial and impoverished at times. Thought content negative for AH or VH and he denies shawn delusions. Insight and judgment are impaired as demonstrated by multiple failed treatments. Impulse control is impaired as demonstrated by inability to keep self safe. Fund of knowledge is excellent and he is savvy in regards to various housing and substance use treatment agencies. Diagnoses: Coricidin dependence; alcohol use d/o; tobacco use d/o; antisocial personality traits; hepatitis C; hypothyroidism Assessment and plan: Fernie is a 27yo white male with history of polysubstance use disorder who presented to ED via EMS after near-suicide attempt and overdose of OTC cold medicine. He has demonstrated poor adherence to treatment and inability to remain safe in the context of coricidin use. Due to risk for suicide, patient will be transferred to [facility] for a brief stabilization.
[2018-01-15 15:32] VITALS: BP 126/89
[2018-01-15] MEDS ORDERED: Nicotine Patch Removal NOTE FOLLOW UP SCH (21:00)
--- NOTE | 2018-01-16 15:20 | DS ---
DISCHARGE SUMMARY: DATE OF ADMISSION: 01/14/18 DATE OF DISCHARGE: 01/15/18 HISTORY OF PRESENT ILLNESS: This is a 27-year-old white male with a longstanding history of drug overdoses (usually involving antihistamines and dextromethorphan) who was in the emergency room on 01/13/18 with an overdose of the same and was sent home under the supervision of his mother. The following day, his mother kicked him out of the house and he subsequently overdosed on antihistamine and dextromethorphan and was brought back to the emergency room where he had a grand mal seizure and was subsequently admitted to the intensive care unit with signs of anticholinergic overdose. These signs gradually resolved over the first 5 to 6 hours of hospitalization and by the day following the hospital admission, the patient was alert, oriented, and had no signs of drug overdose. He did state that the overdose was a suicide attempt, so the patient was evaluated by Psychiatry and the plan is to transfer him to the behavioral health unit here at [facility]. Other problems include hypothyroidism, depression, and apparently history of hepatitis C. FINAL DISCHARGE DIAGNOSES: 1. Drug overdose (antihistamine and dextromethorphan) as a suicide gesture. 2. Chronic hypothyroidism. 3. Psychiatric disorder. DISCHARGE MEDICATIONS: 1. Synthroid 150 mcg p.o. daily. 2. Klonopin 1 mg p.o. 3 times a day. 3. Zoloft 50 mg daily. 4. Invega Sustenna 234 mg IM monthly. [id number]/[facility] #: [id number] MTDD
== END 2018-01-15 17:00 | DRG 812 ==
LOC: ED 10:46 → ICU 12:23 → UNDOADMIN 12:23 → ICU 12:25 → BSU 01-15 16:52 → ICU 01-15 16:52 → UNDODISIN 01-15 18:28 → ICU 01-16 11:26 → BSU 01-16 11:26
PROVIDERS: ADMIT Internal Medicine Critical Care Medicine; ATTEND Internal Medicine Critical Care Medicine
DX: T45.0X2A Poisoning by antiallergic and antiemetic drugs, intentional self-harm, initial encounter (principal); E87.2 Acidosis; F19.20 Other psychoactive substance dependence, uncomplicated; E03.9 Hypothyroidism, unspecified; G40.409 Other generalized epilepsy and epileptic syndromes, not intractable, without status epilepticus; F32.9 Major depressive disorder, single episode, unspecified; T48.3X2A Poisoning by antitussives, intentional self-harm, initial encounter; R00.0 Tachycardia, unspecified; F17.210 Nicotine dependence, cigarettes, uncomplicated; I10 Essential (primary) hypertension; J30.2 Other seasonal allergic rhinitis; F43.10 Post-traumatic stress disorder, unspecified; Y92.9 Unspecified place or not applicable; Z86.19 Personal history of other infectious and parasitic diseases; Z72.89 Other problems related to lifestyle; Z91.5 Personal history of self-harm; Z87.01 Personal history of pneumonia (recurrent)
CPT/HCPCS: 36415; 80048; 80053; 80164; 80307; 80320; 80329; 81003; 82550; 82803; 83605; 83735; 84443; 85025; 93005; 99285; A9270-GY; G0480; J1644; J2060

== ENCOUNTER 2018-01-15 13:53 | Inpatient (IN) | payer OTHER ==
[2018-01-15] MEDS ORDERED: Al Hydrox/Mg Hydrox/Simet LIQ* 30 ML UDC PO PRN (14:06)
[2018-01-15] MEDS ORDERED: Acetaminophen TAB* 325 MG PO PRN (14:06)
[2018-01-15] MEDS ORDERED: Nicotine GUM* 2 MG PO PRN (14:06)
[2018-01-15] MEDS ORDERED: Mouth Piece, Nicotine* 1 EACH CARTRIDGE INH ONE (19:05)
[2018-01-15] MEDS: Nicotine Patch Removal NOTE PATCH OFF SCH (22:12)
[2018-01-16] MEDS: Levothyroxine TAB* 150 MCG TAB PO SCH (08:26)
[2018-01-16] MEDS: Nicotine PATCH 21 MG/24 HR* PATCH TRANSDERM SCH (08:26)
[2018-01-16] MEDS: Vitamin THERAPEUTIC TAB PO SCH (08:26)
[2018-01-16] MEDS: Nicotine Inhaler* 10 MG AMP INH PRN ×2 (15:01→17:15)
[2018-01-16] MEDS: Nicotine Patch Removal NOTE PATCH OFF SCH (21:04)
--- NOTE | 2018-01-16 22:42 | HP ---
CC: [facility] * HISTORY AND PHYSICAL AND DISCHARGE SUMMARY: DATE OF ADMISSION: 01/15/18 DATE OF DISCHARGE: 01/16/18 SUPERVISING PSYCHIATRIST: Dr. Jesus Madrigal.* (DICTATED BY SARAH PATRICK NP) JUSTIFICATION FOR ADMISSION: The patient presented to emergency department with reports of recent suicide gesture. He was admitted to ICU for monitoring due to grand mal seizure in the context of drug overdose. CHIEF COMPLAINT: "Today, I'm ready to leave as soon as possible." HISTORY OF PRESENT ILLNESS: Fernie is a 27-year-old white male, well known to [facility] [place] dozens of hospitalizations in relation to Coricidin dependence. He was last admitted to [facility] in October of this year. Since last admission, he went to rehab at [facility] in [place]. He states he left early because of "wanting to use." Collateral information obtained from Social Work that he utilized [employer] for a ride to [facility] and then did not attend the program. The patient stayed at [facility] in [place] for approximately 2 days and then took a bus to [place]. He was residing at the [facility] and seeing Jeremy "Rohit" a therapist at [facility]. He denies being prescribed medications or having a medication provider. He states he was substance free for approximately 25 days and attending meetings, which is meetings. He reports relapsing on 12/15/17. He states he was admitted to [facility] on 12/27/17 for ischemic colitis directly related to overuse of cold medicine and drinking hand patient centered care specialist. He underwent a colonoscopy and treated with IV opiates and antibiotics. The patient states he returned to his aunt's home in mid December under the assumptions that he will remain substance free. The patient states he was looking for package of instant coffee in his waist pack and he came upon Coricidin that he forgot he had. He impulsively took these and was told by his parents that they "don't want anything to do with me." The patient states he walked about traffic and tried to end his life by walking in front of the cars " ." The patient continued to endorse suicidal ideation while in the ICU and requested to be admitted to the B[facility] "for couple days to regroup." Today, after sleeping a night in the B[facility], he tells me that he has been researching attending the [facility] or the [facility] in [place]. The patient was on the phone with the [facility] in [place] and was told that he could have a bed there upon arrival. Social Work assisted in calling the [facility] and identified that the patient can come there for services. Medicaid was notified and authorization for taxi to [facility] was arranged. The patient denies suicidal ideation. He denies urges to use. He is told that he is expected to go directly to the [facility] in [place] and that the livery car driver will be instructed not to stop on the way. PAST PSYCHIATRIC HISTORY: The patient has a significant history of ED visits and ICU/BSU admissions at [facility] and various hospitals in [place]. He has multiple failed referrals to substance use treatment and he has a history of requesting admission with complaints of suicidality in the setting of Coricidin use. He also has a history of recanting mental health symptoms and again he claimed that he certainly needs to be admitted to the hospital. The patient has been hospitalized for longer term at [facility]. He has been treated several times for rhabdomyolysis directly related to substance use. He has been treated at [facility], [facility], and most recently [facility]. He has been diagnosed in the past with opioid dependence, Coricidin dependence, substance- induced mood disorder, malingering and unspecific personality disorder. Past medication trials include, but not limited to, aripiprazole, risperidone, olanzapine, sertraline, citalopram, fluoxetine, trazodone, bupropion, naltrexone, Suboxone, Topamax, prazosin, lithium, Antabuse, benzodiazepines, and stimulants. PAST SUICIDE/HOMICIDE HISTORY: The patient has a history of suicide attempts and prior suicidal behaviors. He has been admitted to the ICU several times after accidental drug overdose. SUBSTANCE ABUSE HISTORY: The patient has a history of IV opioid use, at the peak he was using 5 to 6 packs heroin per day. His drug of choice is OTC Coricidin. He reports a history of alcohol use, hand patient centered care specialist use, cannabis and cocaine use. He smokes cigarettes approximately half-a-pack per day. LEGAL HISTORY: The patient has a history of arrest on charges for anderson larcenies and has served [facility] time. There is no noted history of violence or aggression. The patient denies current legal implications. PAST MEDICAL HISTORY: Remarkable for hepatitis C, hypothyroidism, ischemic colitis. CURRENT MEDICATIONS: Levothyroxine 150 mcg daily. MENTAL STATUS EXAM: The patient is a moderately built white male who appears stated age. He is wearing hospital scrubs and walks about the unit with normal gait. He is wearing eyeglasses. No psychomotor abnormality or activity noted. He is alert and oriented x3. Eye contact is good and he is fully cooperative with interview. He answers questions fully. Mood is euthymic and affect has full range. Thought process is circumstantial in regards to discharge planning and desire to go to the [facility]. Thought content negative for AH , VH, SI, HI, or . Insight and judgment are tenuous as demonstrated by multiple failed treatments. Impulse control is intact as demonstrated by being in behavioral control on the unit. Fund of knowledge is excellent and he is chatty in regards to various housing and substance abuse treatment agencies. REVIEW OF SYSTEMS: Constitutional: Negative. No fever, chills, or fatigue. ENT: Negative. Cardiovascular: Negative. Denies shortness of breath, palpitations, or chest pain. Respiratory: Negative. Denies shortness of breath or cough. Genitourinary: Negative. Musculoskeletal: Negative. Neurological: Negative. PHYSICAL EXAM: Declined by the patient stating that it is not necessary and he was recently medically stabilized prior to being transferred to the BSU. LABORATORY DATA: From this morning, hemoglobin A1c and lipid panel within normal limits. DIAGNOSES: 1. Coricidin dependence. 2. Alcohol use disorder. 3. Tobacco use disorder. 4. Antisocial personality traits. 5. Hepatitis C. 6. Hypothyroidism. INSTRUCTIONS GIVEN TO THE PATIENT FOR DISCHARGE: A. Medications: Levothyroxine 50 mcg q.a.m. He had his own supply and was given another 5-day supply at discharge. B. Diet: Regular. C. Activity: Ambulation as tolerated. Tobacco cessation declined by the patient. There are no pending labs or diagnostic studies. D. Followup care: The patient will follow up at the [facility] for homeless and resources for substance abuse treatment. The patient declined offer of medications for substance abuse treatment and there are no known medications for Coricidin dependence. HOSPITAL COURSE: Part A. Reason for admission: Please see HPI above. Part B. Psychiatric treatment rendered: The patient was admitted to adult behavioral services unit on voluntary status. He was placed on 15-minute checks for safety and encouraged to participate in supportive milieu, psychoeducational groups, and individual sessions with staff. He did not participate in any of the above and only spoke with discharge planning providers. He was safe on all checks. He denied suicidal ideation or passive wish. He expressed desire to be discharged and participate in the [facility]. The patient is at chronic elevated risk for harm indirectly related to impulsivity, substance use and multiple failed attempts at substance abuse treatment. At the time of discharge, risk was lessened due to stabilization at the hospital. SARAH PATRICK NP [id number]/[facility] #: [id number] SOLO
[2018-01-17] MEDS: Nicotine PATCH 21 MG/24 HR* PATCH TRANSDERM SCH (07:48)
[2018-01-17] MEDS: Vitamin THERAPEUTIC TAB PO SCH (07:48)
[2018-01-17] MEDS: Levothyroxine TAB* 150 MCG TAB PO SCH (07:48)
[2018-01-17] MEDS: Nicotine Inhaler* 10 MG AMP INH PRN ×3 (07:49→12:10)
[2018-01-17 08:07] VITALS: BP 141/77
[2018-01-17] MEDS ORDERED: Mouth Piece, Nicotine* 1 EACH CARTRIDGE ONE (12:10)
--- NOTE | 2018-01-18 03:53 | DS ---
DISCHARGE SUMMARY: DATE OF ADMISSION: DATE OF DISCHARGE: ADDENDUM: The patient was initially slated for discharge on 01/16/18; however when our social work staff attempted to procure a Medicaid cab from our facility to the [facility] in [place], [place], we were informed by Medicaid that they would not support such a lengthy transport request. For this reason, the discharge was canceled and postponed until 1 day later which is 01/17/18. At this time, we have gotten a hospital voucher to cover the patient's transportation to the [facility] in [place]. The patient maintains agreement with this plan. He is continuing to deny suicidal ideations or thoughts to overdose on medications. Therefore, his true date of discharge should be listed as 01/17/18. All other elements of the previously dictated discharge summary are still relevant. Thank you for taking my discharge summary addendum. [id number]/[facility] #: [id number] SOLO
== END 2018-01-17 12:45 | DRG 775 ==
LOC: BSU 14:06
PROVIDERS: ADMIT Psychiatry & Neurology Psychiatry; ATTEND Psychiatry & Neurology Psychiatry
DX: F15.20 Other stimulant dependence, uncomplicated (principal); R45.851 Suicidal ideations; F10.10 Alcohol abuse, uncomplicated; B19.20 Unspecified viral hepatitis C without hepatic coma; E03.9 Hypothyroidism, unspecified; F17.210 Nicotine dependence, cigarettes, uncomplicated; Z79.899 Other long term (current) drug therapy
CPT/HCPCS: 36415; 80061; 83036; 99222; A9270-GY

== ENCOUNTER 2018-01-24 14:59 | Observation (INO) | payer OTHER ==
[2018-01-24] MEDS ORDERED: NS 0.9% 1000 ML* 1,000 ML IV ONE (15:12)
--- NOTE | 2018-01-24 15:25 | ED ---
Psychiatric Complaint - HPI Summary HPI Summary: This is scribe Roland aNils documenting for attending Dr. Eliceo Shepard This patient is a 27 year old M presenting to [facility] with a chief complaint of SI with a plan. Pt endorses taking 64 Coricidin D tablets at around 1435 (about 30 minutes EGG SMELLER). Pt came back from [place] today, and endorses wanting a psych evaluation. Pt denies taking PCP EGG SMELLER. I, Dr. Fenton personally performed the services described in this documentation as scribed in my presence and it is both accurate and complete. - History Of Current Complaint Chief Complaint: EDMentalHealth Time Seen by Provider: 01/24/18 15:04 Hx Obtained From: Patient Onset/Duration: Sudden Onset, Still Present Timing: Constant Severity Initially: Moderate Severity Currently: Moderate Character: Depressed Aggravating Factor(s): Drug Use Alleviating Factor(s): Nothing Related History: Positive For: Prior Psychiatric Issues, Admissions Related To Substance Abuse Has Suicidal: Reports: Thoughts, With A Plan Has Homicidal: Denies: Thoughts Ingestion History: Type/Name Of Drug - Coricidin d, Amount Ingested - 64 tablets , Approximate Time Of Ingestion - 1435 - Allergies/Home Medications Allergies/Adverse Reactions: Allergies Allergy/AdvReac Type Severity Reaction Status Date / Time No Known Allergies Allergy Verified 01/16/18 05:16 PMH/Surg Hx/FS Hx/Imm Hx Endocrine/Hematology History: Reports: Hx Thyroid Disease - Hypothyroidism Denies: Hx Anticoagulant Therapy, Hx Blood Disorders, Hx Blood Transfusions, Hx Bone Marrow Disease, Hx Diabetes, Hx Systemic Lupus Erythematosus, Hx Sickle Cell Disease, Hx Anemia, Hx Unexplained Bleeding, Other Endocrine/Hematological Disorders Cardiovascular History: Reports: Hx Hypertension Denies: Hx Aneurysm, Hx Angina, Hx Angioplasty, Hx Auto Implanted Cardiovert Defib, Hx Cardiac Arrest, Hx Cardiomegaly, Hx Congenital Heart Disease, Hx Congestive Heart Failure, Hx Coronary Artery Disease, Hx Deep Vein Thrombosis, Hx Embolism, Hx Hypercholesterolemia, Hx Hypotension, Hx Pacemaker/ICD, Hx Peripheral Vascular Disease, Hx Rheumatic Fever, Hx Syncope, Hx Valvular Heart Disease, Other Cardiovascular Problems/Disorders Respiratory History: Reports: Hx Pneumonia, Hx Seasonal Allergies Denies: Hx Asthma, Hx Chronic Bronchitis, Hx Chronic Obstructive Pulmonary Disease (COPD), Hx Cystic Fibrosis, Hx Lung Cancer, Hx Pleural Effusion, Hx Pulmonary Edema, Hx Pulmonary Embolism, Hx Sleep Apnea, Other Respiratory Problems/Disorders GI History: Reports: Hx Ulcer Denies: Hx Cirrhosis, Hx Crohn's Disease, Hx Diverticulosis, Hx Gall Bladder Disease, Hx Gastroesophageal Reflux Disease, Hx Gastrointestinal Bleed, Hx Hiatal Hernia, Hx Irritable Bowel, Hx Jaundice, Hx Obstructive Bowel, Hx Ileostomy, Hx Pyloric Stenosis, Other GI Disorders History: Denies: Hx Acute Renal Failure, Hx Benign Prostatic Hyperplasia, Hx Chronic Renal Failure, Hx Dialysis, Hx Kidney Infection, Hx Kidney Stones, Hx Renal Disease, Other Problems/Disorders Musculoskeletal History: Denies: Hx Arthritis, Hx Back Problems, Hx Bursitis, Hx Congenital Bone Abnormalities, Hx Fibromyalgia, Hx Gout, Hx Orthopedic Injury, Hx Osteoporosis, Hx Scoliosis, Hx Tendonitis, Other Musculoskeletal History Sensory History: Reports: Hx Contacts or Glasses Denies: Hx Cataracts, Hx Eye Injury, Hx Eye Prosthesis, Hx Glaucoma, Hx Legally Blind, Hx Macular Degeneration, Hx Vision Problem, Hx Hearing Aid, Other Sensory Impairments Opthamlomology History: Reports: Hx Contacts or Glasses Denies: Hx Cataracts, Hx Eye Injury, Hx Eye Prosthesis, Hx Glaucoma, Hx Legally Blind, Hx Macular Degeneration, Hx Vision Problem, Other Sensory Impairments EENT History: Denies: Hx Deafness, Hx Hearing Aid Neurological History: Reports: Hx Headaches, Hx Seizures Denies: Hx Dementia, Hx Developmental Delay, Hx Migraine, Hx Nerve Disease, Hx Spinal Cord Injury, Hx Transient Ischemic Attacks (TIA), Other Neuro Impairments/Disorders Psychiatric History: Reports: Hx Anxiety, Hx Depression, Hx Post Traumatic Stress Disorder, Hx Inpatient Treatment, Hx Community Mental Health Tx, Hx Bipolar Disorder, Hx of Violent Episodes Against Others, Hx Substance Abuse, Other Psychiatric Issues/Disorders Denies: Hx Attention Deficit Hyperactivity Disorder, Hx Eating Disorder, Hx Panic Disorder, Hx Schizophrenia, Hx Suicide Attempt - Surgical History Surgery Procedure, Year, and Place: none - Immunization History Date of Tetanus Vaccine: Unknown Date of Influenza Vaccine: None Infectious Disease History: No Infectious Disease History: Reports: Hx Hepatitis - Hep C Denies: Hx Clostridium Difficile, Hx Human Immunodeficiency Virus (HIV), Hx of Known/Suspected MRSA, Hx Shingles, Hx Tuberculosis, Hx Known/Suspected VRE, Hx Known/Suspected VRSA, History Other Infectious Disease, Traveled Outside the [place] in Last 30 Days - Family History Known Family History: Positive: Other - cancer Negative: Renal Disease - Social History Occupation: Unemployed Lives: Alone Alcohol Use: 3-5 days per week Alcohol Amount: 9-12 drinks Hx Substance Use: Yes Substance Use Type: Reports: Cocaine, Heroin, Other - PCP Substance Use Comment - Amount & Last Used: ecstacy, coricidin Hx Tobacco Use: Yes Smoking Status (MU): Light Every Day Tobacco Smoker Type: Cigarettes Have You Smoked in the Last Year: Yes Review of Systems Negative: Fever Positive: no symptoms reported Positive: Depressed, Other - SI with plan All Other Systems Reviewed And Are Negative: Yes Physical Exam - Summary Physical Exam Summary: VITAL SIGNS: Reviewed. GENERAL: Patient is a well-developed and nourished male who is lying comfortable in the stretcher. Patient is not in any acute respiratory distress. HEAD AND FACE: No signs of trauma. No ecchymosis, hematomas or skull depressions. No sinus tenderness. EYES: Pupils are dilated but reactive to light, EOMI x 2, No injected conjunctiva, no nystagmus. EARS: Hearing grossly intact. Ear canals and tympanic membranes are within normal limits. MOUTH: Oropharynx within normal limits. NECK: Supple, trachea is midline, no adenopathy, no JVD, no carotid bruit, no c- spine tenderness, neck with full ROM. CHEST: Symmetric, no tenderness at palpation LUNGS: Clear to auscultation bilaterally. No wheezing or crackles. CVS: Regular rate and rhythm, S1 and S2 present, no murmurs or gallops appreciated. ABDOMEN: Soft, non-tender. No signs of distention. No rebound no guarding, and no masses palpated. Bowel sounds are normal. EXTREMITIES: FROM in all major joints, no edema, no cyanosis or clubbing. Increased DTRs, ataxic NEURO: Alert and oriented x 3. No acute neurological deficits. Speech is normal and follows commands. SKIN: Dry and warm PSYCH: Endorses SI with a plan but chooses not to disclose what the plan is. No homicidal thoughts or plan. No signs of psychosis or pressure speech. No tangential speech. Triage Information Reviewed: Yes Vital Signs On Initial Exam: Initial Vitals Temp Pulse Resp BP Pulse Ox 96.9 F 97 18 128/89 98 01/24/18 15:03 01/24/18 15:03 01/24/18 15:03 01/24/18 15:03 01/24/18 15:03 Vital Signs Reviewed: Yes Diagnostics - Vital Signs Vital Signs Temp Pulse Resp BP Pulse Ox 01/24/18 15:03 96.9 F 97 18 128/89 98 - Laboratory Result Diagrams: 01/24/18 15:23 01/24/18 15:23 Lab Statement: Any lab studies that have been ordered have been reviewed, and results considered in the medical decision making process. - Radiology CXR Xray Interpretation: No Acute Changes Radiology Interpretation Completed By: Radiologist - No active disease. Dr. Fenton has reviewed this report. - EKG 1510 Cardiac Rate: NL - 92 EKG Rhythm: Sinus Rhythm ST Segment: Normal Ectopy: None EKG Interpretation: No STEMI, nl axis. Course/Dx - Course Assessment/Plan: This is a 27-year-old male who presents to the emergency department via ambulance with chief complaint of having suicidal thoughts and overdose of Coricidin. Patient reports that he took approximately 64 tablets approximately 30 minutes before arrival to the emergency department. The patient was given charcoal, we obtained an IV access, and the patient was placed in a monitoring manager. The patient was given IV fluids. At this time the patient is alert oriented 3, he has dilated pupils, he seems to be with red discoloration of the cheeks, and he seems to be ataxic. Test results without any significant abnormality except for glucose of 105. Urinalysis is negative for UTI, urine toxicology negative. The patient seems to be having visual hallucinations, he is tachycardic but he is resting comfortable in bed. We placed seizure pads. At this point I discussed my physical exam and findings with Dr. Solorio the ICU services who accepted the patient for admission. The patient at this time is hemodynamically stable except for the tachycardia. - Differential Dx/Clinical Impression Differential Diagnosis/HQI/PQRI: Positive: Acute Psychosis, Anxiety, Drug Overdose/Intentional, Homicidal Ideation, Homicidal Gesture, Suicide Attempt, Suicidal Ideation Provider Diagnosis: Overdose, Tachycardia - Physician Notifications Discussed Care Of Patient With: Tomas Solorio Time Discussed With Above Provider: 16:30 Instructed by Provider To: Other - accepts admission - Critical Care Time Critical Care Time: 75-104 min Discharge - Sign-Out/Discharge Documenting (check all that apply): Patient Departure - admit - Discharge Plan Condition: Critical Disposition: ADMITTED TO [facility] - Billing Disposition and Condition Condition: CRITICAL Disposition: Admitted to [facility]
[2018-01-24 15:36] LABS: ABS Basophils 0 10^3/ul (0-0.2); ABS Eosinophils 0.1 10^3/ul (0-0.6); ABS Lymphocytes 1.8 10^3/ul (1.0-4.8); ABS Monocytes 0.5 10^3/ul (0-0.8); ABS Neutrophils 4.8 10^3/ul (1.5-7.7); ABS Nucleated RBC 0 10^3/ul; Eosinophil % 1.1 % (0-6); Hematocrit 46 % (42-52); Hemoglobin 15.4 g/dl (14.0-18.0); Lymphocyte % 25.3 % (25-47); Mean Corpuscular HGB Conc 34 g/dl (31-36); Mean Corpuscular Hemoglobin 30 pg (27-31); Mean Corpuscular Volume 90 fL (80-94); Mean Platelet Volume 8.7 um3 (7.4-10.4); Nucleated Red Blood Cells % 0.1; Platelet Count 219 10^3/ul (150-450); Red Cell Distribution Width 14 % (10.5-15); White Blood Count 7.2 10^3/ul (3.5-10.8)
[2018-01-24 15:38] LABS: Urine Appearance Cloudy; Urine Blood Negative (Negative); Urine Color Yellow; Urine Ketones Negative (Negative); Urine Protein Negative (Negative); Urine Specific Gravity 1.019 (1.010-1.030); Urine Urobilinogen Negative (Negative)
[2018-01-24] MEDS ORDERED: Charcoal ACTIVATED* 25 GM/120 ML BTL PO ONE (15:42)
[2018-01-24 15:53] LABS: EGFR Non-African American 103.9 (>60)
--- NOTE | 2018-01-24 15:57 | RAD ---
INDICATION: Overdose COMPARISON: Chest x-ray January 05, 2018 TECHNIQUE: An AP portable view obtained at 1544 hours is submitted. FINDINGS: Bones/Soft Tissues: There are no acute bony findings. Cardiomediastinal: The cardiomediastinal silhouette is normal. Lungs: There are no infiltrates. Pleura: There are no pleural effusions. Other: None IMPRESSION: NO ACTIVE DISEASE.
[2018-01-24] MEDS ORDERED: Thiamine IV* 100 MG/ML 2 ML VIAL IM ONE (16:54)
[2018-01-24] MEDS ORDERED: Acetaminophen TAB* 325 MG PO PRN (16:54)
[2018-01-24] MEDS ORDERED: LORazepam INJ* 2 MG/ML 1 ML VIAL IV PUSH SCH (17:00)
--- NOTE | 2018-01-24 17:19 | HP ---
H&P (Free Text) History and Physical: CC: Coricidin overdose HPI: 27M with h/o hypothyroid, hcv, drug and alcohol dependence and multiple suicide attempts presents with AMS. The patient states he took 64 pills of coricidin earlier in the day. He is unable to provide any other history 2/2 ams. The patient was seen in the emergency department and given activated charcoal as dierected by poison control. The patient was found to have a negative utox. His chemistry was unremarkable. He is tachycardic. His qtc is 433. I discussed the case with poison control who recommend iv hydration, benzodiazapines as needed, and telemetry monitoring for qtc prolongation. ROS - unable 2/2 ams PMHx - multiple suicide attempts PSHx - unable All - nkda SocHx - homeless, drug and alcohol dependence FamHx - unable PE Vital Signs: Temp Pulse Resp BP Pulse Ox 96.9 F 97 18 128/89 98 01/24/18 15:03 01/24/18 15:03 01/24/18 15:03 01/24/18 15:03 01/24/18 15:03 Gen - confused, tremulous HEENT - ncat, dilated pupils, +nystagmus, charcoal in mouth Neck - no jvd, no thyromegaly CV -s1/s2, tachy Lungs - cta abd - soft, nt ext - no cce Neuro - confused, follows commands, +nystagmus Labs Laboratory Results - last 24 hr 01/24/18 01/24/18 01/24/18 15:23 15:23 15:23 WBC 7.2 RBC 5.10 Hgb 15.4 Hct 46 MCV 90 MCH 30 MCHC 34 RDW 14 Plt Count 219 MPV 8.7 Neut % (Auto) 65.9 Lymph % (Auto) 25.3 [place] % (Auto) 7.1 H Eos % (Auto) 1.1 Baso % (Auto) 0.6 Absolute Neuts (auto) 4.8 Absolute Lymphs (auto) 1.8 Absolute Monos (auto) 0.5 Absolute Eos (auto) 0.1 Absolute Basos (auto) 0 Absolute Nucleated RBC 0 Nucleated RBC % 0.1 Sodium 137 Potassium 4.1 Chloride 103 Carbon Dioxide 27 Anion Gap 7 BUN 15 Creatinine 0.88 Est GFR ( Amer) 125.7 Est GFR (Non-Af Amer) 103.9 BUN/Creatinine Ratio 17.0 Glucose 105 H Lactic Acid Calcium 10.1 Total Bilirubin 0.40 AST 18 ALT 34 Alkaline Phosphatase 79 Total Creatine Kinase 58 Total Protein 7.7 Albumin 4.6 Globulin 3.1 Albumin/Globulin Ratio 1.5 TSH 5.49 Urine Color Yellow Urine Appearance Cloudy Urine pH 6.0 Ur Specific Ney 1.019 Urine Protein Negative Urine Ketones Negative Urine Blood Negative Urine Nitrate Negative Urine Bilirubin Negative Urine Urobilinogen Negative Ur Leukocyte Esterase Negative Urine Glucose Negative Salicylates < 2.50 Urine Opiates Screen Acetaminophen < 15 Ur Barbiturates Screen Ur Phencyclidine Scrn Ur Amphetamines Screen U Benzodiazepines Scrn Urine Cocaine Screen U Cannabinoids Screen Serum Alcohol < 10 01/24/18 01/24/18 15:23 15:23 WBC RBC Hgb Hct MCV MCH MCHC RDW Plt Count MPV Neut % (Auto) Lymph % (Auto) [place] % (Auto) Eos % (Auto) Baso % (Auto) Absolute Neuts (auto) Absolute Lymphs (auto) Absolute Monos (auto) Absolute Eos (auto) Absolute Basos (auto) Absolute Nucleated RBC Nucleated RBC % Sodium Potassium Chloride Carbon Dioxide Anion Gap BUN Creatinine Est GFR ( Amer) Est GFR (Non-Af Amer) BUN/Creatinine Ratio Glucose Lactic Acid 1.6 Calcium Total Bilirubin AST ALT Alkaline Phosphatase Total Creatine Kinase Total Protein Albumin Globulin Albumin/Globulin Ratio TSH Urine Color Urine Appearance Urine pH Ur Specific Ney Urine Protein Urine Ketones Urine Blood Urine Nitrate Urine Bilirubin Urine Urobilinogen Ur Leukocyte Esterase Urine Glucose Salicylates Urine Opiates Screen None detected Acetaminophen Ur Barbiturates Screen None detected Ur Phencyclidine Scrn None detected Ur Amphetamines Screen None detected U Benzodiazepines Scrn None detected Urine Cocaine Screen None detected U Cannabinoids Screen None detected Serum Alcohol Imaging 01/24/18 CXR IMPRESSION: NO ACTIVE DISEASE 01/24/18 EKG Sinus @92, narrow qrs, qtc 433 Impression: 27M with hypothyroid, HCV, polysubstance abuse presents with recurrent coricidin overdose Neuro - coricidin overdose - supportive care - 1:1 for safety - ativan prn - monitor for withdrawal - fall/seizure precautions - psychiatry consult CV -tachycardia - 2/2 overdose - monitor on telemetry - ekg q8 Pulm - oxygenation ok on room air ID - no evidence of infection - monitor fever curve GI - hcv - outpatient follow up - thiamine/folate/mvi - diet when able Renal - monitor lytes Heme - monitor cbc Endo - hypothyroid - c/w home synthroid Lines - piv PPx - gi/dvt Full Code Admit to ICU Critical Care Time: 65 mins
[2018-01-24] MEDS: NS 0.9% 1000 ML* 1,000 ML IV SCH (19:05)
[2018-01-24] MEDS: Nicotine PATCH 14 MG/24 HR* PATCH TRANSDERM SCH (22:16)
[2018-01-24] MEDS: LORazepam INJ* 2 MG/ML 1 ML VIAL IV PUSH PRN (23:38)
[2018-01-25] MEDS: NS 0.9% 1000 ML* 1,000 ML IV SCH (02:17)
[2018-01-25 04:59] LABS: ABS Basophils 0.1 10^3/ul (0-0.2); ABS Eosinophils 0.3 10^3/ul (0-0.6); ABS Lymphocytes 2.9 10^3/ul (1.0-4.8); ABS Monocytes 0.8 10^3/ul (0-0.8); ABS Neutrophils 4.2 10^3/ul (1.5-7.7); ABS Nucleated RBC 0 10^3/ul; Eosinophil % 4.2 % (0-6); Hematocrit 40 % (42-52); Hemoglobin 13.3 g/dl (14.0-18.0); Lymphocyte % 35.2 % (25-47); Mean Corpuscular HGB Conc 34 g/dl (31-36); Mean Corpuscular Hemoglobin 30 pg (27-31); Mean Corpuscular Volume 89 fL (80-94); Mean Platelet Volume 8.5 um3 (7.4-10.4); Nucleated Red Blood Cells % 0.1; Platelet Count 190 10^3/ul (150-450); Red Blood Count 4.45 10^6/ul (4.00-5.40); Red Cell Distribution Width 14 % (10.5-15); White Blood Count 8.3 10^3/ul (3.5-10.8)
[2018-01-25 05:24] LABS: EGFR Non-African American 92.8 (>60)
[2018-01-25] MEDS: LORazepam INJ* 2 MG/ML 1 ML VIAL IV PUSH PRN (06:18)
[2018-01-25] MEDS: Nicotine PATCH 14 MG/24 HR* PATCH TRANSDERM SCH (08:00)
--- NOTE | 2018-01-25 08:46 | PN ---
Date of Service: 01/25/18 Critical Care Services: 27M with hypothyroid, HCV, polysubstance abuse presents with recurrent coricidin overdose 01/25: Mental status improved. HR improved. Qtc 440. Patient found chewing on his nicotine patch this AM. Vital Signs: Temp Pulse Resp BP SpO2 FiO2 98.8 F 76 26 127/97 96 01/25/18 07:36 01/25/18 08:00 01/25/18 08:00 01/25/18 08:00 01/25/18 08:00 Physical Exam: Gen - nad HEENT - ncat, eomi Neck - no jvd, no thyromegaly CV -s1/s2, tachy Lungs - cta abd - soft, nt ext - no cce Neuro - awake, alert Fluid Balance (Past 24 Hours): I= O= Net Intake & Output 01/23/18 01/24/18 01/25/18 01/26/18 06:59 06:59 06:59 06:59 Intake Total 5038 1620 Output Total 2450 480 Balance 2588 1140 Weight 101.4 kg Intake: IV Fluids 2378 NS (0.9%) 1378 Oral 2660 1620 Output: Urine 2450 480 Other: # Bowel Movements 0 # Voids 1 Labs: Laboratory Results - last 24 hr 01/24/18 01/24/18 01/24/18 15:23 15:23 15:23 WBC 7.2 RBC 5.10 Hgb 15.4 Hct 46 MCV 90 MCH 30 MCHC 34 RDW 14 Plt Count 219 MPV 8.7 Neut % (Auto) 65.9 Lymph % (Auto) 25.3 [place] % (Auto) 7.1 H Eos % (Auto) 1.1 Baso % (Auto) 0.6 Absolute Neuts (auto) 4.8 Absolute Lymphs (auto) 1.8 Absolute Monos (auto) 0.5 Absolute Eos (auto) 0.1 Absolute Basos (auto) 0 Absolute Nucleated RBC 0 Nucleated RBC % 0.1 Sodium 137 Potassium 4.1 Chloride 103 Carbon Dioxide 27 Anion Gap 7 BUN 15 Creatinine 0.88 Est GFR ( Amer) 125.7 Est GFR (Non-Af Amer) 103.9 BUN/Creatinine Ratio 17.0 Glucose 105 H Serum Osmolality Lactic Acid Calcium 10.1 Phosphorus Magnesium Total Bilirubin 0.40 AST 18 ALT 34 Alkaline Phosphatase 79 Total Creatine Kinase 58 Total Protein 7.7 Albumin 4.6 Globulin 3.1 Albumin/Globulin Ratio 1.5 TSH 5.49 Free T4 0.97 Urine Color Yellow Urine Appearance Cloudy Urine pH 6.0 Ur Specific [place]elope 1.019 Urine Protein Negative Urine Ketones Negative Urine Blood Negative Urine Nitrate Negative Urine Bilirubin Negative Urine Urobilinogen Negative Ur Leukocyte Esterase Negative Urine Glucose Negative Salicylates < 2.50 Urine Opiates Screen Acetaminophen < 15 Ur Barbiturates Screen Ur Phencyclidine Scrn Ur Amphetamines Screen U Benzodiazepines Scrn Urine Cocaine Screen U Cannabinoids Screen Serum Alcohol < 10 01/24/18 01/24/18 01/24/18 15:23 15:23 15:23 WBC RBC Hgb Hct MCV MCH MCHC RDW Plt Count MPV Neut % (Auto) Lymph % (Auto) [place] % (Auto) Eos % (Auto) Baso % (Auto) Absolute Neuts (auto) Absolute Lymphs (auto) Absolute Monos (auto) Absolute Eos (auto) Absolute Basos (auto) Absolute Nucleated RBC Nucleated RBC % Sodium Potassium Chloride Carbon Dioxide Anion Gap BUN Creatinine Est GFR ( Amer) Est GFR (Non-Af Amer) BUN/Creatinine Ratio Glucose Serum Osmolality 289 Lactic Acid 1.6 Calcium Phosphorus Magnesium Total Bilirubin AST ALT Alkaline Phosphatase Total Creatine Kinase Total Protein Albumin Globulin Albumin/Globulin Ratio TSH Free T4 Urine Color Urine Appearance Urine pH Ur Specific [place] Urine Protein Urine Ketones Urine Blood Urine Nitrate Urine Bilirubin Urine Urobilinogen Ur Leukocyte Esterase Urine Glucose Salicylates Urine Opiates Screen None detected Acetaminophen Ur Barbiturates Screen None detected Ur Phencyclidine Scrn None detected Ur Amphetamines Screen None detected U Benzodiazepines Scrn None detected Urine Cocaine Screen None detected U Cannabinoids Screen None detected Serum Alcohol 01/25/18 01/25/18 04:46 04:46 WBC 8.3 RBC 4.45 Hgb 13.3 L Hct 40 L MCV 89 MCH 30 MCHC 34 RDW 14 Plt Count 190 MPV 8.5 Neut % (Auto) 50.0 Lymph % (Auto) 35.2 [place] % (Auto) 9.7 H Eos % (Auto) 4.2 Baso % (Auto) 0.9 Absolute Neuts (auto) 4.2 Absolute Lymphs (auto) 2.9 Absolute Monos (auto) 0.8 Absolute Eos (auto) 0.3 Absolute Basos (auto) 0.1 Absolute Nucleated RBC 0 Nucleated RBC % 0.1 Sodium 138 Potassium 3.6 Chloride 110 Carbon Dioxide 24 Anion Gap 4 BUN 14 Creatinine 0.97 Est GFR ( Amer) 112.3 Est GFR (Non-Af Amer) 92.8 BUN/Creatinine Ratio 14.4 Glucose 105 H Serum Osmolality Lactic Acid Calcium 8.9 Phosphorus 3.4 Magnesium 2.0 Total Bilirubin AST ALT Alkaline Phosphatase Total Creatine Kinase Total Protein Albumin Globulin Albumin/Globulin Ratio TSH Free T4 Urine Color Urine Appearance Urine pH Ur Specific [place]elope Urine Protein Urine Ketones Urine Blood Urine Nitrate Urine Bilirubin Urine Urobilinogen Ur Leukocyte Esterase Urine Glucose Salicylates Urine Opiates Screen Acetaminophen Ur Barbiturates Screen Ur Phencyclidine Scrn Ur Amphetamines Screen U Benzodiazepines Scrn Urine Cocaine Screen U Cannabinoids Screen Serum Alcohol Studies: 01/24/18 CXR IMPRESSION: NO ACTIVE DISEASE 01/24/18 EKG Sinus @92, narrow qrs, qtc 433 Impression: 27M with hypothyroid, HCV, polysubstance abuse presents with recurrent coricidin overdose Plan: Neuro - coricidin overdose - supportive care - 1:1 for safety - ativan prn - monitor for withdrawal - fall/seizure precautions - psychiatry consult CV -tachycardia - resolved - ekg wnl Pulm - oxygenation ok on room air ID - no evidence of infection - monitor fever curve GI - hcv - outpatient follow up - thiamine/folate/mvi - diet when able Renal - monitor lytes Heme - monitor cbc Endo - hypothyroid - c/w home synthroid Lines - piv PPx - gi/dvt Full Code Stable for transfer to floor
[2018-01-25] MEDS ORDERED: Multivitamins/Minerals TAB PO SCH (09:00)
[2018-01-25] MEDS ORDERED: Folic Acid TAB* 1 MG PO SCH (09:00)
[2018-01-25] MEDS ORDERED: Thiamine TAB* 100 MG TAB PO SCH (09:00)
[2018-01-25 13:39] VITALS: BP 131/89
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
[2018-01-25] MEDS ORDERED: Nicotine Patch Removal NOTE FOLLOW UP SCH (21:00)
--- NOTE | 2018-01-26 05:05 | DS ---
CC: Dr. Solorio; Dr. Gorge Fenton; Dr. Melvin Nicholson; Dr. Jace German; Dr. Kuldeep Moore; Dr. Madrigal; Dr. Roshan Ray; Dr. Syed Carmichael; Dr. Florencio Nails; Dr. Yudelka Hurst; Indiana Torres, SANDRA; Dr. James Cortez; Dr. Obey Garrison; David Zhong NP; Debra Castle NP; Dr. Montana Lerner * DISCHARGE SUMMARY: DATE OF ADMISSION: DATE OF DISCHARGE: 01/25/18 DISCHARGE DIAGNOSES: As follows: 1. Coricidin overdose. 2. Tachycardia secondary to above, resolved. 3. History of hepatitis C virus. 4. History of hypothyroidism. HISTORY OF PRESENT ILLNESS/HOSPITAL COURSE: The patient is a 27-year-old gentleman with history of hypothyroidism, HCV, drug and EtOH dependence, with multiple suicidal attempts in the past, who presented with acute mental status change. The patient took 64 pills of Coricidin earlier during the day of 01/24/18 and was unable to provide any history initially. The patient was seen in the emergency department and was given activated charcoal as directed by Poison Control. The patient was found to have a negative urinary tox screen and his chemistry was unremarkable. He was found to be tachycardic. Poison Control further recommended IV hydration, benzodiazepines as needed and telemetry monitoring for QTc prolongation. He had done well overnight in the ICU with stable vital signs and the patient no longer being tachycardic. His laboratories are all reassuring with mild anemia of 13.3 and 40 and the rest of his laboratories are within normal limits. He was transferred from the ICU to the floor a few hours prior. I reexamined and reevaluated the patient and spoke with Ms. Indiana Torres of Psychiatry, who mentioned the patient is psychiatrically cleared. Given he no longer has any active medical issues that led to his admission on presentation such as tachycardia and acute mental status change, he will be discharged home and he mentions his home is a halfway and will defer. REVIEW OF SYSTEMS: On review of systems, the patient denied any recent headaches, dizziness, fever, chills, nausea, vomiting, chest pain, shortness of breath, increased cough and sputum production, abdominal pain, diarrhea, constipation, pain and/or increased frequency on urination, myalgias, arthralgias, throat pain, or new skin lesions. The rest of the 14-point review of systems was otherwise unremarkable. PHYSICAL EXAMINATION: Shows the most recent vital signs of records with blood pressure of 131/89, 87 beats per minute heart rate, 20 per minute respiratory rate, saturating at 97% on room air. General Appearance: The patient is awake , oriented x3 with a blunt affect, not in acute distress. HEENT: Normocephalic , atraumatic. PERRLA. Extraocular muscles intact. Negative for icterus. Moist oral mucosa. Negative throat erythema. Neck is soft, supple, with no cervical lymphadenopathy. No JVD. Heart: S1, S2 within normal limits. Regular rate and rhythm. No murmurs, rubs, or gallops. Chest: Clear to auscultation bilaterally. Good air entry. No wheezes, rales, or rhonchi. Abdomen is soft, nondistended, nontender. Normoactive bowel sounds x 4 quadrants. Extremities: No cyanosis, clubbing, or edema. Psychiatric: No active psychosis, depression, suicidal or homicidal ideations. The patient is noted to have a blunt affect as described above. Skin: Warm to touch. TIME SPENT: The total time spent evaluating the patient, reviewing pertinent data and appropriate documentation is greater than 30 minutes. [id number]/[facility] #: [id number] MTDD
== END 2018-01-25 14:37 | disposition home or self-care (01) ==
LOC: ED 14:59 → ICU 16:40 → INTOOBSV 16:40 → MED 01-25 10:51
PROVIDERS: ADMIT Internal Medicine; ATTEND Student in an Organized Health Care Education/Training Program
DX: T50.992A Poisoning by other drugs, medicaments and biological substances, intentional self-harm, initial encounter (principal); Y92.9 Unspecified place or not applicable; F32.9 Major depressive disorder, single episode, unspecified; R00.0 Tachycardia, unspecified; Z86.19 Personal history of other infectious and parasitic diseases; Z86.39 Personal history of other endocrine, nutritional and metabolic disease
CPT/HCPCS: 36415; 71045; 80048; 80053; 80307; 80320; 80329; 81003; 82550; 83605; 83735; 83930; 84100; 84439; 84443; 85025; 93005; 96372; 99285; A9270-GY; G0378; G0480; J2060; J3411

== ENCOUNTER 2018-01-28 13:34 | Inpatient (IN) | payer OTHER ==
[2018-01-28] MEDS ORDERED: NS 0.9% 1000 ML* 1,000 ML IV ONE (13:37)
[2018-01-28] MEDS ORDERED: Charcoal ACTIVATED* 25 GM/120 ML BTL PO ONE (13:37)
--- NOTE | 2018-01-28 13:55 | ED ---
Substance Abuse/Use - HPI Summary HPI Summary: This is scribe Dirk Humphries documenting for attending Gorge Fenton MD. A 27 y/o male CHERYL and CHAPARRO presents to ED s/p overdose of Coricidin. In the ED room, the patient has a pulse of 134 BPM, O2 saturation of 97% and blood pressure of 130/94. As per triage, "OD on coricdin - reports 48 pills @ 1200". As per police, a friend called EMS as the [facility] by school social worker previously) where he overdose on Coricidin medication for a high. Patient denies taking any other medication besides the 48 pills of Coricidin at 1200. Patient denies intaking any Benadryl and Phencyclidine (PCP). It was known that the patient was not taking the OTC pills for suicide, but rather just for the high. Patient smells terrible in ED room as he did not take shower. I, Dr. Fenton personally performed the services described in this documentation as scribed in my presence and it is both accurate and complete. - History Of Current Complaint Chief Complaint: EDOverdose Stated Complaint: POSS OD Time Seen by Provider: 01/28/18 13:37 Hx Obtained From: Patient, Other: - Police. Onset/Duration of Drug/ETOH Abuse: Hours - 1200 Ingestion History: Type/Name Of Drug - Coricidin., Amount Ingested - 48 pills, Approximate Time Of Ingestion - 1200 Overdose Characteristics: Oral Timing Of Abuse: Binge Use Severity Currently: None Character: Lethargic Aggravating Factor(s): Nothing Alleviating Factor(s): Nothing Associated Signs And Symptoms: Negative - Allergies/Home Medications Allergies/Adverse Reactions: Allergies Allergy/AdvReac Type Severity Reaction Status Date / Time No Known Allergies Allergy Verified 01/28/18 14:43 PMH/Surg Hx/FS Hx/Imm Hx Endocrine/Hematology History: Reports: Hx Thyroid Disease - Hypothyroidism Denies: Hx Anticoagulant Therapy, Hx Blood Disorders, Hx Blood Transfusions, Hx Bone Marrow Disease, Hx Diabetes, Hx Systemic Lupus Erythematosus, Hx Sickle Cell Disease, Hx Anemia, Hx Unexplained Bleeding, Other Endocrine/Hematological Disorders Cardiovascular History: Reports: Hx Hypertension Denies: Hx Aneurysm, Hx Angina, Hx Angioplasty, Hx Auto Implanted Cardiovert Defib, Hx Cardiac Arrest, Hx Cardiomegaly, Hx Congenital Heart Disease, Hx Congestive Heart Failure, Hx Coronary Artery Disease, Hx Deep Vein Thrombosis, Hx Embolism, Hx Hypercholesterolemia, Hx Hypotension, Hx Pacemaker/ICD, Hx Peripheral Vascular Disease, Hx Rheumatic Fever, Hx Syncope, Hx Valvular Heart Disease, Other Cardiovascular Problems/Disorders Respiratory History: Reports: Hx Pneumonia, Hx Seasonal Allergies Denies: Hx Asthma, Hx Chronic Bronchitis, Hx Chronic Obstructive Pulmonary Disease (COPD), Hx Cystic Fibrosis, Hx Lung Cancer, Hx Pleural Effusion, Hx Pulmonary Edema, Hx Pulmonary Embolism, Hx Sleep Apnea, Other Respiratory Problems/Disorders GI History: Reports: Hx Ulcer Denies: Hx Cirrhosis, Hx Crohn's Disease, Hx Diverticulosis, Hx Gall Bladder Disease, Hx Gastroesophageal Reflux Disease, Hx Gastrointestinal Bleed, Hx Hiatal Hernia, Hx Irritable Bowel, Hx Jaundice, Hx Obstructive Bowel, Hx Ileostomy, Hx Pyloric Stenosis, Other GI Disorders History: Denies: Hx Acute Renal Failure, Hx Benign Prostatic Hyperplasia, Hx Chronic Renal Failure, Hx Dialysis, Hx Kidney Infection, Hx Kidney Stones, Hx Renal Disease, Other Problems/Disorders Musculoskeletal History: Denies: Hx Arthritis, Hx Back Problems, Hx Bursitis, Hx Congenital Bone Abnormalities, Hx Fibromyalgia, Hx Gout, Hx Orthopedic Injury, Hx Osteoporosis, Hx Scoliosis, Hx Tendonitis, Other Musculoskeletal History Sensory History: Reports: Hx Contacts or Glasses Denies: Hx Cataracts, Hx Eye Injury, Hx Eye Prosthesis, Hx Glaucoma, Hx Legally Blind, Hx Macular Degeneration, Hx Vision Problem, Hx Deafness, Hx Hearing Aid, Other Sensory Impairments Opthamlomology History: Reports: Hx Contacts or Glasses Denies: Hx Cataracts, Hx Eye Injury, Hx Eye Prosthesis, Hx Glaucoma, Hx Legally Blind, Hx Macular Degeneration, Hx Vision Problem, Other Sensory Impairments Neurological History: Reports: Hx Headaches, Hx Seizures Denies: Hx Dementia, Hx Developmental Delay, Hx Migraine, Hx Nerve Disease, Hx Spinal Cord Injury, Hx Transient Ischemic Attacks (TIA), Other Neuro Impairments/Disorders Psychiatric History: Reports: Hx Anxiety, Hx Depression, Hx Post Traumatic Stress Disorder, Hx Inpatient Treatment, Hx Community Mental Health Tx, Hx Bipolar Disorder, Hx of Violent Episodes Against Others, Hx Substance Abuse, Other Psychiatric Issues/Disorders Denies: Hx Attention Deficit Hyperactivity Disorder, Hx Eating Disorder, Hx Panic Disorder, Hx Schizophrenia, Hx Suicide Attempt - Surgical History Surgery Procedure, Year, and Place: none - Immunization History Date of Tetanus Vaccine: Unknown Date of Influenza Vaccine: None Infectious Disease History: No Infectious Disease History: Reports: Hx Hepatitis - Hep C Denies: Hx Clostridium Difficile, Hx Human Immunodeficiency Virus (HIV), Hx of Known/Suspected MRSA, Hx Shingles, Hx Tuberculosis, Hx Known/Suspected VRE, Hx Known/Suspected VRSA, History Other Infectious Disease, Traveled Outside the [place] in Last 30 Days - Family History Known Family History: Positive: Other - cancer Negative: Renal Disease - Social History Alcohol Use: Weekly Alcohol Amount: 9-12 drinks Hx Substance Use: Yes Substance Use Type: Reports: Cocaine, Heroin, Other Substance Use Comment - Amount & Last Used: ecstacy, coricidin Hx Tobacco Use: Yes Smoking Status (MU): Light Every Day Tobacco Smoker Type: Cigarettes Have You Smoked in the Last Year: Yes Review of Systems Negative: Fever Psychological: Other - NEGATIVE: SI All Other Systems Reviewed And Are Negative: Yes Physical Exam - Summary Physical Exam Summary: VITAL SIGNS: Reviewed. GENERAL: Patient is a well-developed and nourished male who is lying comfortable in the stretcher. Patient is not in any acute respiratory distress. Patient is very lethargic secondary to Coricidin. HEAD AND FACE: No signs of trauma. No ecchymosis, hematomas or skull depressions. No sinus tenderness. EYES: No injected conjunctiva, no nystagmus. Patient has dilated pupils EARS: Hearing grossly intact. Ear canals and tympanic membranes are within normal limits. MOUTH: Oropharynx within normal limits. NECK: Supple, trachea is midline, no adenopathy, no JVD, no carotid bruit, no c- spine tenderness, neck with full ROM. CHEST: Symmetric, no tenderness at palpation LUNGS: Clear to auscultation bilaterally. No wheezing or crackles. CVS: Regular rate and rhythm, S1 and S2 present, no murmurs or gallops appreciated. ABDOMEN: Soft, non-tender. No signs of distention. No rebound no guarding, and no masses palpated. Bowel sounds are normal. EXTREMITIES: FROM in all major joints, no edema, no cyanosis or clubbing. Patient has hyperactive reflexes. Ataxia. NEURO: Alert and oriented x 3. No acute neurological deficits. Speech is normal and follows commands. SKIN: Dry and warm Triage Information Reviewed: Yes Vital Signs On Initial Exam: Initial Vitals Temp Pulse Resp BP Pulse Ox 97.0 F 134 24 132/92 96 01/28/18 13:38 01/28/18 13:38 01/28/18 13:38 01/28/18 13:38 01/28/18 13:38 Vital Signs Reviewed: Yes Diagnostics - Vital Signs Vital Signs Temp Pulse Resp BP Pulse Ox 01/28/18 13:42 127 28 148/84 96 01/28/18 13:38 97.0 F 134 24 132/92 96 - Laboratory Result Diagrams: 01/28/18 14:28 01/28/18 14:28 Lab Statement: Any lab studies that have been ordered have been reviewed, and results considered in the medical decision making process. - Radiology CXR Radiology Interpretation Completed By: Radiologist - NO EVIDENCE FOR ACUTE DISEASE. ED physician reviewed this radiology report. - EKG 1342 Cardiac Rate: Tachycardia - 122 BPM EKG Rhythm: Sinus Tachycardia EKG Interpretation: No ST elevation, negative STEMI. EKG Comparison: Other - Change previous to 01/26/2018 1604 Cardiac Rate: Tachycardia - 121 BPM EKG Rhythm: Sinus Tachycardia EKG Interpretation: No ST elevations, negative STEMI. Course/Dx - Course Assessment/Plan: This patient is a 27-year-old male who was brought in by EMS and police escort with a chief complaint of an overdose with Coricidin. He reports that he took approximately 48 tablets with this medication. He reports that he does not intend to perform suicide but rather to get high. He denies any other medications. Initially, the patient was placed in a cardiac technologist, he was place in falling precautions as well as seizure precautions. Since the patient took these medications at approximately 12:15 p.m. I gave the patient charcoal. Poison control was called and they agreed with management, EKG shows no ST elevations but he is tachycardic at 122 bpm. Therefore IV access was obtained and he was given IV fluids. The patient continues to be lethargic, tachycardic, therefore discussed my physical exam, findings and test results with Dr. Hess who accepted the patient for admission. - Diagnoses Differential Diagnosis/HQI/PQRI: Positive: Acute Psychosis, Depression Provider Diagnoses: Overdose - Physician Notifications Discussed Care Of Patient With: Renetta Hess Time Discussed With Above Provider: 16:53 Instructed by Provider To: Other - Accepts patient for admission. - Critical Care Time Critical Care Time: 75-104 min Discharge - Sign-Out/Discharge Documenting (check all that apply): Patient Departure - ADMIT - Discharge Plan Condition: Stable Disposition: ADMITTED TO [facility] - Billing Disposition and Condition Condition: STABLE Disposition: Admitted to [facility] Attestations Scribe Attestation: This is sandovalibe Dirk Humphries documenting for attending Gorge Fenton MD. User Type: Provider with Scribe Provider Attestation: The documentation recorded by the scribe accurately reflects the service I personally performed and the decisions made by me.
--- OUTSIDE RECORDS SUMMARY | 2018-01-28 14:06 | XMS REPORT ---
:1990 External Reference #:[id number] Author Organization [facility] Address [address] [place] [address] [place] [address] Phone [phone] Care Team Providers Name Role Phone Sergio Collins M.D. 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 Payers Type Date Identification Numbers Payment Provider Subscriber Commercial Effective: Policy Number: Keith Angeles 2015 [id number] PayID: [id number] [address] [place] [address] Medigap Part B Expires: 2015 Policy Number: [id number] Medicaid Fernie Angeles Group Name: 1 1 [address] PayID: [id number] [place] [address] Problems Description No Information Social History Description No Information Available Allergies, Adverse Reactions, Alerts Description No Information Medications Description No Information Results Test Date Test Result H/L Range Note Urinalysis Profile 02/13/2014 Urine Color Straw 1 Urine Appearance Clear 1 Urine Specific [place] 1.008 Low 1.010-1.030 1 Urine pH 7.0 5-9 1 Urine Urobilinogen Negative Negative 1 Urine Ketones Negative Negative 1 Urine Protein Negative Negative 1 Urine Leukocytes Negative Negative 1 Urine Blood 3+ Negative 1 Urine Nitrite Negative Negative 1 Urine Bilirubin Negative Negative 1 Urine Glucose Negative Negative 1 Urine White Blood Cell Trace(0-5/hpf) Absent 1 Urine Red Blood Cell Trace Absent 1 Urine Bacteria Absent Absent 1 Urine Drug SCR ED & 02/13/2014 Amphetamine Ur Screen None Detected None Detect 1 Pain Clinic Barbiturates Urine Screen None Detected None Detect 1 Benzodiazepine Urine Screen None Detected None Detect 1 Urine Cannabinoids Screen None Detected None Detect 1 Urine Cocaine Screen None Detected None Detect 1 Urine Opiates Screen None Detected None Detect 1 Urine Phencyclidine Screen Presumptive Posi <SEE NOTE> None Detect 1, 2 CBC Auto Diff 02/13/2014 White Blood Count 12.2 10^3/uL High 4.8-10.8 1 Red Blood Count 5.11 10^6/uL 4.0-5.4 1 Hemoglobin 15.6 g/dL 14.0-18.0 1 Hematocrit 46 % 42-52 1 Mean Corpuscular Volume 90 fL 80-94 1 Mean Corpuscular Hemoglobin 31 pg 27-31 1 Mean Corpuscular HGB Conc 34 g/dL 31-36 1 Red Cell Distribution Width 13 % 10.5-15 1 Platelet Count 238 10^3/uL 150-450 1 Mean Platelet Volume 8 um3 7.4-10.4 1 Abs Neutrophils 8.7 10^3/uL High 1.5-7.7 1 Abs Lymphocytes 2.4 10^3/uL 1.0-4.8 1 Abs Monocytes 0.9 10^3/uL High 0-0.8 1 Abs Eosinophils 0.1 10^3/uL 0-0.6 1 Abs Basophils 0.1 10^3/uL 0-0.2 1 Abs Nucleated RBC 0 10^3/uL 1 Granulocyte % 71.7 % 38-83 1 Lymphocyte % 19.4 % Low 25-47 1 Monocyte % 7.8 % 1-9 1 Eosinophil % 0.5 % 0-6 1 Basophil % 0.6 % 0-2 1 Nucleated Red Blood Cells % 0 1 Comp Metabolic Panel 02/13/2014 Sodium 141 mmol/L 133-145 1 Potassium 3.3 mmol/L Low 3.7-5.6 1 Chloride 108 mmol/L 101-111 1 Co2 Carbon Dioxide 25 mmol/L 22-32 1 Anion Gap 8 mmol/L 2-11 1 Glucose 81 mg/dL 70-100 1 Blood Urea Nitrogen 14 mg/dL 6-24 1 Creatinine 1.14 mg/dL 0.67-1.17 1 BUN/Creatinine Ratio 12.3 8-20 1 Calcium 9.5 mg/dL 8.6-10.3 1 Total Protein 7.7 g/dL 6.4-8.9 1 Albumin 4.8 g/dL 3.2-5.2 1 Globulin 2.9 g/dL 2-4 1 Albumin/Globulin Ratio 1.7 1-3 1 Total Bilirubin 0.60 mg/dL 0.2-1.0 1 Alkaline Phosphatase 67 U/L 34-104 1 Alt 46 U/L 7-52 1 Ast 54 U/L High 13-39 1 Egfr Non- 79.6 >60 1 Egfr 102.4 >60 1, 3 Laboratory test finding 02/13/2014 Acetaminophen < 15 g/mL 1, 4 Alcohol < 10 mg/dL <10 1 Salicylate < 2.50 mg/dL <30 1 Creatine Kinase 1543 U/L High 10-223 1 [place] < 0.10 mmol/L Low 0.6-1.2 1 TSH (Thyroid Stimulating Horm) 15.19 IU/mL High 0.34-5.60 1 1 NOT A PROGRAMS MANAGER PATIENT PER [facility] 2 Presumptive Positive The urine specimen was tested at the listed cutoffs: Drug class test level (ng/ml) Amphetamines 300 Barbituates 200 Benzodiazepine metabolites 200 Cocaine metabolites 300 Cannabinoids 25 Opiates 200 Pcp 25 This is a screening procedure. Positive results are not confirmed. Specimen was received without chain of custody. Results should be used for medical purposes only. 3 Because ethnic data is not always readily available, this report includes an eGFR for both -Americans and non- Americans. The National Kidney Disease Education Program (NKDEP) does not endorse the use of the MDRD equation for patients that are not between the ages of 18 and 70, are , have extremes of body size, muscle mass, or nutritional status, or are non- or non-. According to the National Kidney Foundation, irrespective of diagnosis, the stage of the disease is based on the level of kidney function: Stage Description GFR(mL/min/1.73 m(2)) 1 Kidney damage with normal or decreased GFR 90 2 Kidney damage with mild decrease in GFR 60-89 3 Moderate decrease in GFR 30-59 4 Severe decrease in GFR 15-29 5 Kidney failure <15 (or dialysis) 4 Therapeutic concentration: <50 ug/mL Toxic concentration: >120 ug/mL Procedures Date CPT Code Description Status 01/14/2018 74877 EKG, Interpretation Only Completed 10/27/2017 04850 EKG, Interpretation Only Completed 07/31/2015 12213 EKG, Interpretation Only Completed 07/31/2014 50733 EKG, Interpretation Only Completed 04/22/2014 63189 EKG, Interpretation Only Completed 02/14/2014 14298 EKG, Interpretation Only Completed 06/10/2013 03931 EKG, Interpretation Only Completed 03/16/2013 61542 EKG, Interpretation Only Completed 06/21/2012 17635 EKG, Interpretation Only Completed 06/20/2012 89809 EKG, Interpretation Only Completed Encounters Type Date Location Provider CPT E/M Dx Office Visit 01/15/2018 12:25p [facility] Dave Asif M.D. 26385 T48.3x2A E03.9 Office Visit 01/14/2018 12:24p [facility] Dave Asif M.D. 76243 T48.3x2A G40.509 Office Visit 10/31/2017 1:20p [facility], 99980 T50.902A Assoc,[facility] Hospitalists TECHNOLOGY COACH F32.9 B18.2 Office Visit 10/29/2017 1:13p [facility], 73198 T50.902A Assoc,pc Hospitalists TECHNOLOGY COACH F32.9 B18.2 Office Visit [facility]/28[facility]2017 [facility] 69702 T50.902A [facility]oc[facility]pc Hospitalists TECHNOLOGY COACH F32.9 B18.2 Office Visit 10/27/2017 12:58p [facility], 42172 T50.902A Assoc,pc Hospitalists TECHNOLOGY COACH F32.9 B18.2 Office Visit 10/25/2017 11:54a [facility], 51429 T50.902A Assoc,pc Hospitalists N.P. F32.9 B18.2 Office Visit 10/25/2017 1:53p [facility] Uday Manzano D.O. 90421 T50.902A R41.0 Z76.5 Office Visit 10/24/2017 1:49p [facility] Uday Manzano D.O. 45908 T50.902A R41.0 Office Visit 08/25/2014 9:44a [facility], Alee Barrientos, 66012 728.88 Hospitalists D.O. 977.9 244.9 Office Visit 08/24/2014 9:43a [facility], Alee Barrientos, 12507 728.88 Hospitalists D.O. 977.9 244.9 Office Visit 08/23/2014 9:43a [facility],pc Alee Barrientos, 27570 728.88 Hospitalists D.O. 977.9 244.9 Office Visit 08/22/2014 9:43a [facility] Alee Barrientos, 91116 728.88 Hospitalists D.O. 977.9 244.9 Office Visit 08/21/2014 9:43a [facility] Alee Barrientos, 78994 728.88 Hospitalists D.O. 977.9 244.9 Office Visit 08/20/2014 9:42a [facility] Sofie Morse, N.P. 17432 728.88 Hospitalists 977.9 244.9 Office Visit 07/07/2014 12:28p [facility]pc Haroldo Mckeon, 36346 571.1 Hospitalists M.D. 305.90 244.9 311 Office Visit 07/06/2014 12:27p [facility], Haroldo Mckeon, 13125 571.1 Hospitalists M.D. 305.90 244.9 311 Office Visit 07/05/2014 [facility] 35769 571.1 Assoc, Hospitalists M.D. 305.90 244.9 311 Office Visit 05/19/2014 6:46p [facility] Nicole Clark, 27549 584.9 Hospitalists N.P. 728.88 963.0 301.9 Office Visit 05/18/2014 6:45p [facility] Renetta Meek, 39931 584.9 Hospitalists M.D. 728.88 301.9 963.0 Office Visit 04/25/2014 9:15p [facility] Nicole Clark, 91130 728.88 Hospitalists N.P. 977.9 244.9 296.20 Office Visit 04/24/2014 9:15p [facility] Nicole Clark, 79300 728.88 Hospitalists N.P. 977.9 244.9 296.20 Office Visit 04/23/2014 9:14p [facility] Nicole Clark, 76806 728.88 Hospitalists N.P. 977.9 244.9 296.20 Office Visit 04/22/2014 9:13p [facility] TECHNOLOGY COACH 63255 728.88 Assoc,pc Hospitalists 977.9 244.9 296.20 Office Visit 04/21/2014 9:12p [facility] TECHNOLOGY COACH 42324 728.88 Assoc,pc Hospitalists 977.9 244.9 296.20 Office Visit 02/15/2014 11:26a [facility], 26298 728.88 Hospitalists M.D. 977.9 305.90 311 Office Visit 02/14/2014 11:26a [facility], Haroldo Karkevin, 20060 977.9 Hospitalists M.D. 305.90 311 244.9 Office Visit 02/13/2014 11:25a [facility], [place] [address] 977.9 Hospitalists 305.90 311 244.9 Office Visit 09/11/2013 10:26a [facility], 23843 969.70 Assoc,pc Hospitalists M.D. 305.90 276.2 293.0 Office Visit 09/10/2013 10:26a [facility], 84720 969.70 Assoc, Hospitalists M.D. 305.90 276.2 293.0 Office Visit 08/19/2013 2:26p [facility], 84985 969.79 Assoc, Hospitalists N.P. 584.9 296.60 Office Visit 08/18/2013 2:23p [facility], 88315 969.79 Assoc, Hospitalists N.P. 584.9 296.60 Office Visit 08/17/2013 2:07p [facility], 65468 969.79 Assoc, Hospitalists N.P. 296.60 305.90 Office Visit 08/16/2013 11:03a [facility], 33923 969.79 Assoc,pc Hospitalists N.P. 296.60 305.90 Office Visit 08/15/2013 2:05p [facility], Nicole Clark, 44274 969.70 Hospitalists N.P. 305.90 Office Visit 08/14/2013 2:03p [facility], 17353 969.70 Assoc, Hospitalists N.P. 305.90 296.60 995.90 Office Visit 07/14/2013 8:19a [facility], Daryl Doyle 61016 239.5 Hospitalists Devyn Mackay 244.8 Office Visit 07/11/2013 10:12a [facility], Jodee Vargas, 41518 244.9 Hospitalok Shepard 305.90 969.79 Office Visit 07/10/2013 10:11a [facility], 62985 969.79 Assoc, Hospitalists N.P. 244.9 305.90 Office Visit 06/14/2013 1:58p [facility], Dave Asif M.D. 23983 977.8 Hospitalists 293.0 070.54 Office Visit 06/13/2013 1:58p [facility], Tomas Groves D.O. 06587 785.0 Hospitalists 293.0 401.9 977.8 Office Visit 06/11/2013 1:57p [facility], Tomas Groves D.O. 39280 965.09 Hospitalists 244.9 070.51 296.80 Office Visit 06/10/2013 1:57p [facility], Tomas Groves D.O. 31076 292.81 Hospitalists 790.4 965.09 288.8 Office Visit 06/09/2013 1:56p [facility], Tomas Groves D.O. 30787 292.81 Hospitalists 790.4 965.09 288.8 Office Visit 06/09/2013 1:55p [facility] Maxwell Ruiz, 53251 790.4 Assoc, Hospitalok Shepard Office Visit 03/18/2013 3:53p [facility] Haroldo Mckeon, 94508 995.90 Assoc, Hospitalok Shepard 728.89 296.60 E980.4 Office Visit 03/17/2013 3:53p [facility], 05688 995.90 Assoc, Hospitalists MLucía 728.89 296.60 E980.4 Office Visit 03/16/2013 3:53p [facility], 41798 995.90 Assoc,pc Hospitalists Devyn 728.89 296.60 E980.4 Office Visit 03/15/2013 3:52p [facility], 61346 296.60 Assoc, Hospitalists N.P. 995.90 728.89 E980.4 Office Visit 10/16/2012 9:09a [facility], Alee Barrientos, 70237 785.0 Hospitalists D.O. 977.9 296.60 Office Visit 10/15/2012 9:08a [facility], Leobardo Healy, 35045 785.0 Hospitalists N.P. 977.9 296.60 Office Visit 06/22/2012 12:55p [facility], Daryl Doyle 96880 969.79 Hospitalists Devyn Mackay 780.97 785.0 244.9 Office Visit 06/21/2012 12:54p [facility], Daryl Doyle 63294 969.79 Hospitalists Devyn Mackay 780.97 785.0 244.9 Office Visit 06/20/2012 10:44a [facility], Alee Barrientos, 38270 969.79 Hospitalists D.O. 785.0 780.97 Office Visit 06/19/2012 10:43a [facility], 58112 969.79 Assoc, Hospitalists N.P. 785.0 780.97 Plan of Care Future Appointment(s):01/30/2018 11:30 am - Dino Mathew MD at [facility]
--- OUTSIDE RECORDS SUMMARY | 2018-01-28 14:06 | XMS REPORT ---
:1990 External Reference #:[id number] Author Organization [facility] Address [address] [facility] [place] [address] Phone [phone] Care Team Providers Name Role Phone Sergio Collins M.D. Care Team Information Mass Communications Professor Unavailable Payers Type Date Identification Numbers Payment Provider Subscriber Commercial Effective: Policy Number: Keith Angeles 2015 [id number] PayID: [id number] [address] [place] [address] Medigap Part B Expires: 2015 Policy Number: [id number] Medicaid Fernie Angeles Group Name: 1 1 [address] PayID: [id number] [place] [address] Problems Description No Information Social History Description No Information Available Allergies, Adverse Reactions, Alerts Description No Information Medications Description No Information Results Test Date Test Result H/L Range Note Urinalysis Profile 02/13/2014 Urine Color Straw 1 Urine Appearance Clear 1 Urine Specific [place] 1.008 Low 1.010-1.030 1 Urine pH 7.0 [...] Creatine Kinase 1543 U/L High 10-223 1 [place] < 0.10 mmol/L Low 0.6-1.2 1 TSH (Thyroid Stimulating Horm) 15.19 IU/mL High 0.34-5.60 1 1 NOT A EXPRESS CLERK PATIENT PER [facility] [place] [facility] [place] 2 Presumptive Positive The urine specimen was [...] ug/mL Procedures Date CPT Code Description Status 07/31/2015 39942 EKG, Interpretation Only Completed 07/31/2014 73050 EKG, Interpretation Only Completed 04/22/2014 00293 EKG, Interpretation Only Completed 02/14/2014 39690 EKG, Interpretation Only Completed 06/10/2013 72212 EKG, Interpretation Only Completed 03/16/2013 90924 EKG, Interpretation Only Completed 06/21/2012 67586 EKG, Interpretation Only Completed 06/20/2012 37624 EKG, Interpretation Only Completed Encounters Type Date Location Provider CPT E/M Dx Office Visit 10/31/2017 [facility] Meehan, 99556 T50.902A 1:20p Assoc,[facility] Hospitalists ADVERTISING SOLICITOR F32.9 B18.2 Office Visit 10/29/2017 1:13p [facility] Am[facility] Meehan, 60886 T50.902A Assoc,pc Hospitalists ADVERTISING SOLICITOR F32.9 B18.2 Office Visit 10/28/2017 1:04p [facility] Am[facility] Meehan, 05259 T50.902A Assoc,pc Hospitalists ADVERTISING SOLICITOR F32.9 B18.2 Office Visit 10/27/2017 12:58p [facility] Am[facility] Meehan, 95790 T50.902A Assoc,pc Hospitalists ADVERTISING SOLICITOR F32.9 B18.2 Office Visit 10/25/2017 11:54a [facility], 85833 T50.902A Assoc,pc Hospitalists N.P. F32.9 B18.2 Office Visit 10/25/2017 1:53p [facility] Uday Manzano D.O. 68776 T50.902A R41.0 Z76.5 Office Visit 10/24/2017 1:49p [facility] Haily OrtizOSvitlana 01998 T50.902A R41.0 Office Visit 08/25/2014 9:44a [facility], Alee Barrientos, 04138 728.88 Hospitalists D.O. 977.9 244.9 Office Visit 08/24/2014 9:43a [facility] Alee Floyd, 30984 728.88 Hospitalists D.O. 977.9 244.9 Office Visit 08/23/2014 9:43a [facility], Alee Floyd, 87065 728.88 Hospitalists D.O. 977.9 244.9 Office Visit 08/22/2014 9:43a [facility], Alee Barrientos, 28883 728.88 Hospitalists D.O. 977.9 244.9 Office Visit 08/21/2014 9:43a [facility] Alee Floyd, 93200 728.88 Hospitalists D.OSvitlana 977.9 244.9 Office Visit 08/20/2014 9:42a [facility] Sofie Morse, N.P. 63830 728.88 Hospitalists 977.9 244.9 Office Visit 07/07/2014 12:28p [facility] Haroldo Mckeon, 96987 571.1 Hospitalists M.DSvitlana 305.90 244.9 311 Office Visit 07/06/2014 12:27p [facility] Haroldo Mckeon, 27933 571.1 Hospitalists M.DSvitlana 305.90 244.9 311 Office Visit 07/05/2014 12:27p [facility] [place] [address] 571.1 Assoc, Hospitalists MSvitlanaDSvitlana 305.90 244.9 311 Office Visit 05/19/2014 6:46p [facility], Nicole Clark, 45316 584.9 Hospitalists N.P. 728.88 963.0 301.9 Office Visit 05/18/2014 6:45p [facility] Renetta Meek, 43297 584.9 Hospitalists MLucía 728.88 301.9 963.0 Office Visit 04/25/2014 9:15p [facility] Nicole Clark, 28881 728.88 Hospitalists N.P. 977.9 244.9 296.20 Office Visit 04/24/2014 9:15p [facility], Nicole Clark, 97373 728.88 Hospitalists N.P. 977.9 244.9 296.20 Office Visit 04/23/2014 9:14p [facility], Nicole Clark, 65152 728.88 Hospitalists N.P. 977.9 244.9 296.20 Office Visit 04/22/2014 9:13[place] [address] 728.88 Assoc, Hospitalists 977.9 244.9 296.20 Office Visit 04/21/2014 9:12p [facility] [place] [address] 728.88 Assoc,pc Hospitalists 977.9 244.9 296.20 Office Visit 02/15/2014 11:26a [facility] Assoc,pc Renetta Meek, 99797 728.88 Hospitalists MLucía 977.9 305.90 311 Office Visit 02/14[facility]2014 [facility] Nguyenkevin, 48710 977.9 Hospitalists MLucía 305.90 311 244.9 Office Visit 02/13/2014 11:25a [facility] Assoc,pc Polly Ozuna, 62095 977.9 Hospitalists 305.90 311 244.9 Office Visit 09/11/2013 10:26a [facility], 03407 969.70 Assoc, Hospitalists MLucía 305.90 276.2 293.0 Office Visit 09/10/2013 10:26a [facility] Ed [facility], 24659 969.70 Assoc, Hospitalists Devyn 305.90 276.2 293.0 Office Visit 08/19/2013 2:26p [facility], 59749 969.79 Assoc, Hospitalists N.P. 584.9 296.60 Office Visit 08/18/2013 2:23p [facility], 01541 969.79 Assoc, Hospitalists N.P. 584.9 296.60 Office Visit 08/17/2013 2:07p [facility], 60381 969.79 Assoc, Hospitalists N.P. 296.60 305.90 Office Visit 08/16/2013 11:03a [facility], 24385 969.79 Assoc, Hospitalists N.P. 296.60 305.90 Office Visit 08/15/2013 2:05p [facility], Nicole Clark, 56493 969.70 Hospitalists N.P. 305.90 Office Visit 08/14/2013 2:03p [facility], 72006 969.70 Assoc, Hospitalists N.P. 305.90 296.60 995.90 Office Visit 07/14/2013 8:19a [facility] Daryl Doyle 57722 239.5 Hospitalists Devyn Mackay 244.8 Office Visit 07/11/2013 10:12a [facility] Jodee Kelleyhn, 32826 244.9 Hospitalists Devyn 305.90 969.79 Office Visit 07/10/2013 10:11a [facility] Leobardo Healy, 99056 969.79 Assoc,pc Hospitalists N.PSvitlana 244.9 305.90 Office Visit 06/14/2013 1:58p [facility] Dave Asif M.D. 62992 977.8 Hospitalists 293.0 070.54 Office Visit 06/13/2013 1:58p [facility] Tomas Groves D.O. 53512 785.0 Hospitalists 293.0 401.9 977.8 Office Visit 06/11/2013 1:57p [facility], Tomas Groves D.O. 70864 965.09 Hospitalists 244.9 070.51 296.80 Office Visit 06/10/2013 1:57p [facility], Tomas Groves D.O. 47864 292.81 Hospitalists 790.4 965.09 288.8 Office Visit 06/09/2013 1:56p [facility], Tomas Groves D.O. 24208 292.81 Hospitalists 790.4 965.09 288.8 Office Visit 06/09/2013 1:55p [facility] Mawxell Ruiz, 41007 790.4 Assoc,pc Hospitalists MLucía Office Visit 03/18/2013 3:53p [facility] Haroldo Mckeon, 60087 995.90 Assoc,pc Hospitalists Devyn 728.89 296.60 E980.4 Office Visit 03/17/2013 3:53p [facility] [place], [address] 995.90 Assoc,pc Hospitalists Devyn 728.89 296.60 E980.4 Office Visit 03/16/2013 3:53p [facility] [place], [address] 995.90 Assoc,pc Hospitalists Devyn 728.89 296.60 E980.4 Office Visit 03/15/2013 3:52p [facility], 94904 296.60 Assoc, Hospitalists N.P. 995.90 728.89 E980.4 Office Visit 10/16/2012 9:09a [facility], Alee Barrientos, 87971 785.0 Hospitalists D.O. 977.9 296.60 Office Visit 10/15/2012 9:08a [facility], Leobardo Grayling, 43172 785.0 Hospitalists N.P. 977.9 296.60 Office Visit 06/22/2012 12:55p [facility], Daryl Doyle 11739 969.79 Hospitalists Devyn Mackay 780.97 785.0 244.9 Office Visit 06/21/2012 12:54p [facility], Daryl Doyle 84988 969.79 Hospitalok Mackay M.D. 780.97 785.0 244.9 Office Visit 06/20/2012 10:44a [facility], Alee Barrientos, 42051 969.79 Hospitalists DSvitlanaOSvitlana 785.0 780.97 Office Visit 06/19/2012 10:43a [facility], 16495 969.79 Assoc, Hospitalists N.P. 785.0 780.97 Plan of Care No Information Available
[2018-01-28 14:38] LABS: ABS Basophils 0.1 10^3/ul (0-0.2); ABS Eosinophils 0 10^3/ul (0-0.6); ABS Lymphocytes 1.6 10^3/ul (1.0-4.8); ABS Monocytes 0.7 10^3/ul (0-0.8); ABS Neutrophils 10.7 10^3/ul (1.5-7.7); ABS Nucleated RBC 0 10^3/ul; Eosinophil % 0.1 % (0-6); Hematocrit 45 % (42-52); Hemoglobin 15.1 g/dl (14.0-18.0); Lymphocyte % 12.3 % (25-47); Mean Corpuscular HGB Conc 34 g/dl (31-36); Mean Corpuscular Hemoglobin 30 pg (27-31); Mean Corpuscular Volume 89 fL (80-94); Mean Platelet Volume 8.5 um3 (7.4-10.4); Nucleated Red Blood Cells % 0; Platelet Count 230 10^3/ul (150-450); Red Blood Count 5.06 10^6/ul (4.00-5.40); Red Cell Distribution Width 14 % (10.5-15); White Blood Count 13.1 10^3/ul (3.5-10.8)
--- NOTE | 2018-01-28 14:43 | RAD ---
INDICATION: Overdose. COMPARISON: Comparison is made with a prior study from January 24, 2018. TECHNIQUE: A portable view of the chest was obtained. FINDINGS: Cardiac and mediastinal contours appear to be within normal limits. The lungs are clear. No pleural effusion is seen. IMPRESSION: NO EVIDENCE FOR ACUTE DISEASE.
[2018-01-28 14:52] LABS: Urine Appearance Clear; Urine Blood Negative (Negative); Urine Color Straw; Urine Ketones Negative (Negative); Urine Protein Negative (Negative); Urine Specific Gravity 1.004 (1.010-1.030); Urine Urobilinogen Negative (Negative)
[2018-01-28 14:59] LABS: EGFR Non-African American 87.6 (>60)
[2018-01-28] MEDS ORDERED: Acetaminophen TAB* 325 MG PO PRN (17:16)
[2018-01-28] MEDS: NS 0.9% 1000 ML* 1,000 ML IV SCH (19:54)
--- NOTE | 2018-01-28 19:55 | HP ---
HISTORY AND PHYSICAL: DATE OF ADMISSION: 01/28/18 TIME OF EVALUATION: 5 p.m. PRIMARY CARE PROVIDER: The patient does not have a primary care provider. CHIEF COMPLAINT: "I don't need to be here." HISTORY OF PRESENT ILLNESS: Mr. Angeles is a 27-year-old male with a past medical history of polysubstance abuse; depression; psychiatric disorders; hep C ; hypothyroidism; multiple admissions for overdose, last one he was discharged on 01/25/18, who presents to the emergency room after another episode of overdose. The patient states that he did not have any suicidal ideation, he was just trying to get high. He took 48 tablets of Coricidin that he had bought at [employer] and he states that his patient case manager was calling from [employer] and as he did not respond, the police were called and he was brought to the emergency room. As per ED notes, police detective stated that the patient stumbled to the door and police called ambulance. On arrival, he was noted to have dilated pupils, was drowsy, but oriented x3 when woken up. Poison Control was contacted and recommended observation, benzodiazepines for agitation as needed and mental health evaluation. Of note is that on prior admissions, the patient had seizure and on that admission his U-tox had been positive for PCP, although the patient denies using other drugs. PAST MEDICAL HISTORY: 1. Multiple episodes of overdose. 2. Coricidin dependence. 3. Alcohol use disorder. 4. Tobacco use disorder. 5. Antisocial personality traits. 6. Hepatitis C. 7. Hypothyroidism. 8. Polysubstance abuse. MEDICATIONS: Medication list is not available at this time, but will be reconciled. ALLERGIES: No known drug allergies. FAMILY HISTORY: Both parents are healthy. SOCIAL HISTORY: Multiple Coricidin overdoses. He states now that he does not smoke or use other drugs. Surrogate decision maker is his aunt, Margaret Ortiz, phone number is [phone]. REVIEW OF SYSTEMS: A 14-point review of systems was limited as the patient does not want to answer more questions. PHYSICAL EXAMINATION GENERAL: The patient is a young obese gentleman, lying in the ED stretcher, in no acute distress. VITAL SIGNS: Temperature 98.1, heart rate is 114, respiratory rate is 24, oxygen saturation 95% on room air, blood pressure is 130/94. HEENT: Pupils are equal and dilated, reactive to light. CHEST: Breath sounds present bilaterally with no added sounds. CVS: Normal S1, S2. Regular rate and rhythm. Tachycardic. NEURO: He is alert and oriented x3. Able to move all 4 extremities. DIAGNOSTIC STUDIES/LAB DATA: The patient had a CBC that showed WBC of 13.1, hemoglobin of 15.1, hematocrit of 45, platelets of 230,000 with 81% neutrophils. Chemistry showed a sodium of 142, potassium of 3.9, chloride of 112 , bicarb of 21, BUN of 12, creatinine of 1.02, glucose of 119, lactic acid of 2.8, calcium of 9.6. LFTs were normal. TSH was 3.73. Urinalysis was normal. Urine toxicology was positive for phencyclidine. Chest x-ray showed no evidence for acute disease. EKG showed sinus tachycardia at 121 beats per minute with no ST-T changes, similar to his EKG on presentation 3 days ago. ASSESSMENT AND PLAN: Mr. Angeles is a 27-year-old male with past medical history of polysubstance abuse including Coricidin dependence, alcohol use disorder, tobacco use disorder; antisocial personality traits, hepatitis C, hypothyroidism, multiple admissions for overdose, who presented to the emergency room with another episode. The patient denies suicidal or homicidal ideation and states that he took 48 pills with the intent of getting high, but he is known to be very impulsive including an admission in the past where he was cleared by Mental Health and immediately after, drank a whole bottle of hand care connector. The patient will be admitted as observation to the telemetry floor and after discussion with Poison Control, the plan is to monitor him on telemetry, give him IV fluids, benzos if needed for symptom control, monitor his lactic acid and after the overdose is resolved, he will be seen by Mental Health. DVT prophylaxis: The patient has a score of 1 on the DVT Prophylaxis Risk Assessment Guide and he will have SCDs. Code status is full. TIME SPENT: Approximately 45 minutes were spent with the patient's interview, medical records review, physical examination to complete this admission, more than half of this time was spent [id number] with the patient and coordination of care. [id number]/[facility] #: [id number] [facility]ENT[facility]
[2018-01-28] MEDS: LORazepam INJ* 2 MG/ML 1 ML VIAL IV PUSH PRN (22:29)
[2018-01-29 05:41] LABS: ABS Basophils 0.1 10^3/ul (0-0.2); ABS Eosinophils 0.4 10^3/ul (0-0.6); ABS Lymphocytes 2.7 10^3/ul (1.0-4.8); ABS Monocytes 0.9 10^3/ul (0-0.8); ABS Neutrophils 4.4 10^3/ul (1.5-7.7); ABS Nucleated RBC 0 10^3/ul; Eosinophil % 5.2 % (0-6); Hematocrit 39 % (42-52); Hemoglobin 13.1 g/dl (14.0-18.0); Lymphocyte % 31.4 % (25-47); Mean Corpuscular HGB Conc 33 g/dl (31-36); Mean Corpuscular Hemoglobin 30 pg (27-31); Mean Corpuscular Volume 89 fL (80-94); Mean Platelet Volume 8.1 um3 (7.4-10.4); Nucleated Red Blood Cells % 0.1; Platelet Count 198 10^3/ul (150-450); Red Cell Distribution Width 14 % (10.5-15); White Blood Count 8.5 10^3/ul (3.5-10.8)
[2018-01-29 05:57] LABS: EGFR Non-African American 83.8 (>60)
[2018-01-29] MEDS: NS 0.9% 1000 ML* 1,000 ML IV SCH (06:55)
[2018-01-29] MEDS ORDERED: Nicotine PATCH 21 MG/24 HR* PATCH TRANSDERM SCH (08:00)
[2018-01-29] MEDS: LORazepam INJ* 2 MG/ML 1 ML VIAL IV PUSH PRN ×2 (10:44→17:15)
--- NOTE | 2018-01-29 13:53 | PN ---
Subjective Date of Service: 01/29/18 Interval History: Pt offers no complaints stating he feels well. He denies swallowing nicotine patch stating he flushed it down the toilet. He states he hopes he is admitted to inpatient rehab. Discussed with staff psychiatrist who reported pt was just kicked out of a program in [place] ([employer] for being caught having sex in the facility. Objective Active Medications: Acetaminophen (Tylenol Tab*) 650 mg PO Q6H PRN PRN Reason: pain/fever Last Admin: 01/29/18 09:56 Dose: 650 mg Sodium Chloride (Ns 0.9% 1000 Ml*) 1,000 mls @ 100 mls/hr IV PER RATE KHRIS Last Admin: 01/29/18 06:55 Dose: 100 mls/hr Lorazepam (Ativan Inj*) 1 mg IV PUSH Q6H PRN PRN Reason: Anxiety/Agitation/seizures Last Admin: 01/29/18 10:44 Dose: 1 mg Nicotine Polacrilex (Nicotine Gum*) 2 mg PO Q2H PRN PRN Reason: CRAVING Vital Signs - 8 hr 01/29/18 01/29/18 01/29/18 05:50 10:44 11:56 Temperature 98.3 F Pulse Rate 86 Respiratory 20 24 20 Rate Blood Pressure 137/89 (mmHg) O2 Sat by Pulse 98 Oximetry 01/29/18 11:58 Temperature Pulse Rate Respiratory 18 Rate Blood Pressure (mmHg) O2 Sat by Pulse Oximetry Oxygen Devices in Use Now: None Appearance: 27 yo male A+O x3 in NAD - Flat affect. cooperative. Eyes: No Scleral Icterus, PERRLA Ears/Nose/Mouth/Throat: NL Teeth, Lips, Gums, Mucous Membranes Moist Neck: NL Appearance and Movements; NL JVP Respiratory: Symmetrical Chest Expansion and Respiratory Effort, Clear to Auscultation Cardiovascular: NL Sounds; No Murmurs; No JVD, RRR, No Edema Abdominal: NL Sounds; No Tenderness; No Distention Extremities: No Edema, No Clubbing, Cyanosis Skin: No Rash or Ulcers, No Nodules or Sclerosis Neurological: Alert and Oriented x 3, NL Sensation, NL Gait, NL Muscle Strength and Tone Lines/Tubes/Other Access: Clean, Dry and Intact PICC Line Nutrition: Taking PO's Result Diagrams: 01/29/18 05:28 01/29/18 05:28 Assess/Plan/Problems-Billing Assessment: 27 yo male with a PMH hx of polysubstance abuse, depression, psychiatric disorders with multiple hospitalizations who is well known to our service who presented to the ER on 01/28 brought in by the Police. Patient reported he took 48 pills of Coricidin - Patient Problems (1) Polysubstance abuse Comment: Overdosed on Coricidin. Posion Control has been contacted, recommendation to monitor on telemtery, IV fluids and benzos prn and monitor lactic acid oon admission. 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 Given his inability to control his impulsive behavior he will remain on strict 1:1 supervision for safety until discharged. Labs today are unremarkable [facility] - no recommendation for inpatient psych - agrees with trying to send for inpatient rhab - which the patient at this time agrees. (2) Tobacco abuse Comment: - pt reports he flushed his nicotine patch in the toliet, he has a hx of swallowing patches in the past - he has been switched to nicotine gum (3) DVT prophylaxis Comment: scds. frequent ambulation (4) Full code status Status and Disposition: awaiting to hear if patient will be accepted for inpatient rehab, Social work following
--- NOTE | 2018-01-29 14:26 | CONSULT ---
Identification - Patient Identification Reason for Psychiatric Consultation: Other -: Patient is a 27 year old, M admitted on 01/28/18. Psychiatry asked to consult due to patient's return and multiple overdoses on cold medicine Coricidin. - MHU Identification Employment Status: Unemployed Hx Psychiatric Hospitalization: Yes Prior Psychiatric Diagnosis: coricidin dependent polysubstance use d/o; unspecified personality d/o Arrived to Hospital Via: [facility] History - Objective HPI: Fernie is a 27yo white male, undomiciled who presented to the ED three days post discharge with overdose on cold medicine Coricidin. While in the ED and during admission assessment, patient reported desire to speak with [facility] mental health provider. Today, He denies suicidal ideation and reports his use on 01/28 was "impulsive." He states in between last admission he went to an AA meeting then returned to the hotel room provided by [facility]. He states he was "lonely" and bought Coricidin at the supermarket with $20 received for temporary assistance from [facility]. He states he phoned his wild animal caretaker, Mana but she in off today. He reports he has been been making phone calls to [facility] in [place] and has desire to attend inpatient treatment. He states he has been in contact with [facility] therapist, Piper Rosario as he was scheduled to see her today. He goes on to describe that his actions are due to addiction. Field Account Manager attempted motivational interviewing to identify goals/aspirations. Patient received a call during our interview from [facility] and has an appt tomorrow morning. With prompting, he utilized his smart phone to put this appointment in his calendar. Past Medical History: hypothyroidism, hepatitis C, ischemic colitis Exam Appearance: Well Developed/Nourished Hygiene: Normal Grooming: Fairly Well Kept Psychomotor Activities: Normal Exhibits Abnormal Movement: No Attitude and Relatedness: Superficially Cooperative Eye Contact: Good - Speech Quality: Unpressured Latencies: Normal Quantity: Appropriate Patient's Decription of Mood: "Good" Observed Affect: Good Affect Consistent with: Euthymia Patient's Thought Process: Coherent, Goal Directed Thought Content: No Passive Wish, No Suicidal Planning, No Homicidal Ideation, No Paranoid Ideation Experiencing Hallucinations: No, Sensorium is Clear Type of Hallucinations: Visual: No, Auditory: No, Command: No Level of Consciousness: Alert Orientation: Yes Intact, Yes Orientated to Time, Yes Orientated to Place, Yes Orientated to Person Impulse Control: Poor Insight and Judgement: Poor Impression - Impression Clinical Impression: Fernie is a 27yo white male with history of polysubstance use disorder who presented to ED via EMS after police were notified for welfare check. Patient' s peer disaster or damage control specialist in [place] phoned him, identified that patient was under the influence and phoned local PD. As police arrived, he was stumbling and incoherent therefore EMS was notified. 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 He has an extensive history of not following through on recommendations and outpatient non-adherence. He states preference for referral to [facility] in [place] for inpatient rehab. He is encouraged to utilize his phone and to fully participate in discharge planning. Inpatient DSM-V Dx: F19.29 Merits Inpatient Hospitalization: No Plan - Treatment Plan Treatment Plan: Patient denies SI/HI/ or need for inpatient psychiatric treatment. SW is assisting in referral to [facility]. Psychiatry is signing off at this time but is available for further consult requests. Medications: Current Medications Acetaminophen (Tylenol Tab*) 650 mg PO Q6H PRN PRN Reason: pain/fever Last Admin: 01/29/18 09:56 Dose: 650 mg Lorazepam (Ativan Inj*) 1 mg IV PUSH Q6H PRN PRN Reason: Anxiety/Agitation/seizures Last Admin: 01/29/18 10:44 Dose: 1 mg Nicotine Polacrilex (Nicotine Gum*) 2 mg PO Q2H PRN PRN Reason: CRAVING - Discharge Plan Discharge Plan: Drug/Alcohol Rehab Outpatient Program: [facility]
[2018-01-29] MEDS: Nicotine GUM* 2 MG PO PRN (14:56)
[2018-01-29] MEDS ORDERED: Nicotine Patch Removal NOTE FOLLOW UP SCH (21:00)
--- NOTE | 2018-01-30 07:57 | PN ---
Subjective Date of Service: 01/30/18 Interval History: Pt offers no complaints. He denies CP, SOB. No hallucinations. Denies diaphoresis or tremors. Reports good appetite. Objective Active Medications: Acetaminophen (Tylenol Tab*) 650 mg PO Q6H PRN PRN Reason: pain/fever Last Admin: 01/29/18 09:56 Dose: 650 mg Lorazepam (Ativan Inj*) 1 mg IV PUSH Q6H PRN PRN Reason: Anxiety/Agitation/seizures Last Admin: 01/29/18 17:15 Dose: 1 mg Nicotine Polacrilex (Nicotine Gum*) 2 mg PO Q2H PRN PRN Reason: CRAVING Last Admin: 01/29/18 14:56 Dose: 2 mg Vital Signs - 8 hr 01/30/18 03:41 Temperature 97.8 F Pulse Rate 40 Respiratory 24 Rate Blood Pressure 112/70 (mmHg) O2 Sat by Pulse 97 Oximetry Oxygen Devices in Use Now: None Appearance: 27 yo male A+O x3 in NAD, flat affect Eyes: PERRLA Ears/Nose/Mouth/Throat: Mucous Membranes Moist Neck: NL Appearance and Movements; NL JVP Respiratory: Symmetrical Chest Expansion and Respiratory Effort Cardiovascular: NL Sounds; No Murmurs; No JVD, RRR, No Edema Abdominal: NL Sounds; No Tenderness; No Distention Extremities: No Edema, No Clubbing, Cyanosis Skin: No Rash or Ulcers, No Nodules or Sclerosis Neurological: Alert and Oriented x 3, NL Sensation, NL Gait, NL Muscle Strength and Tone Lines/Tubes/Other Access: Clean, Dry and Intact Peripheral IV Nutrition: Taking PO's Result Diagrams: 01/29/18 05:28 01/29/18 05:28 Assess/Plan/Problems-Billing Assessment: 27 yo male with a PMH hx of polysubstance abuse, depression, psychiatric disorders with multiple hospitalizations who is well known to our service who presented to the ER on 01/28 brought in by the Police. Patient reported he took 48 pills of Coricidin - Patient Problems (1) Polysubstance abuse Comment: Overdosed on Coricidin for recreational purposes. Denies suicidal ideation. Posion Control has been contacted. Pt is clinically stable. Three sinus pauses noted on telemetry since around 2 am - appears he just dropped 1 QRS. continue tele monitoring. Obtain EKG. Appear benign. 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 Given his inability to control his impulsive behavior the room has been evaluated and items have been removed that the pt could swallow - ok to have a safety monitor and discontinue 1:1. Labs are unremarkable Appreciate psych consult - no recommendation for inpatient psych treatment at this time - Pt would like to go to [facility] for rehab but has not been accepted - they have accepted him in the past and he has been noncompliant. The plan for now per social is that he has been set up to stay at the [facility]. Pt has an appointment tomorrow with DSS. (2) Tobacco abuse Comment: - nicotine gum only with hx of swallowing patches (3) DVT prophylaxis Comment: scds. frequent ambulation (4) Full code status Status and Disposition: inpatient for overdose, Social work following. Plan for DC to [facility] tomorrow if medically stable
[2018-01-30] MEDS: LORazepam INJ* 2 MG/ML 1 ML VIAL IV PUSH PRN (08:48)
[2018-01-30] MEDS ORDERED: LORazepam TAB(*) 1 MG PO ONE (13:08)
[2018-01-30] MEDS ORDERED: hydrOXYzine HCL TAB* 50 MG PO PRN (16:17)
[2018-01-30] MEDS ORDERED: chlorproMAZINE TAB* 50 MG PO PRN (16:17)
--- NOTE | 2018-01-30 16:34 | CONSULT ---
Identification - Patient Identification Reason for Psychiatric Consultation: Suicidal Ideation -: Patient is a 27 year old, M admitted on 01/30/18. Psychiatry asked to consult due suicidal statements. - MHU Identification Employment Status: Unemployed Hx Psychiatric Hospitalization: Yes Prior Psychiatric Diagnosis: coricidin dependent polysubstance use d/o; unspecified personality d/o Arrived to Hospital Via: [facility] History - Objective HPI: Fernie is a 27yo white male, undomiciled who presented to the ED three days post discharge with overdose on cold medicine Coricidin. During preparation for discharge, patient reported suicidal ideation with plan to jump in front of traffic. Patient lying in bed, pleasant upon approach. He reports despair and hopelessness in relation to "my situation." He states he phoned his mother to ask to return home but she gave DSS reasons why he could not. He also states frustration with housing in that DSS would have to send him to [facility] due to no availability for emergency housing. He states "I just need a couple days in the [facility] to clear my head." PAST PSYCHIATRIC HISTORY: Patient has a significant history of ED visits and ICU /BSU admissions and various hospitals in [place]. He has multiple failed referrals to substance use treatment, and he has a history of requesting admission with complaints of AH and suicidality in the setting of Coricidin use. He also has a history of recanting mental health symptoms and identifying that he said these things to be admitted to the hospital. Patient has been hospitalized for longer term at [facility]. He has been treated several times for rhabdomyolysis directly r/t substance use. He has been treated at [facility], [facility] and [facility] outpatient. He has been diagnosed in the past with opiate dependence, Coricidin dependence, substance-induced mood disorder, malingering and unspecified personality d/o. Past Medical History: hypothyroidism, hep C, ischemic colitis Exam Appearance: Well Developed/Nourished Hygiene: Normal Grooming: Fairly Well Kept Psychomotor Activities: Normal Exhibits Abnormal Movement: No Attitude and Relatedness: Superficially Cooperative Eye Contact: Good - Speech Quality: Unpressured Latencies: Normal Quantity: Appropriate Patient's Decription of Mood: "defeated" Observed Affect: Depressed Affect Consistent with: Dysphoria Patient's Thought Process: Circumstantial Thought Content: Yes Passive Wish, Yes Suicidal Planning, No Homicidal Ideation, No Paranoid Ideation Experiencing Hallucinations: No, Sensorium is Clear Type of Hallucinations: Visual: No, Auditory: No, Command: No Level of Consciousness: Alert Orientation: Yes Intact, Yes Orientated to Time, Yes Orientated to Place, Yes Orientated to Person Impulse Control: Poor Insight and Judgement: Poor Impression - Impression Clinical Impression: Fernie is a 27yo white male with history of polysubstance use disorder who presented to ED via EMS after police were notified for welfare check. Patient' s peer health promotion specialist in [place] phoned him, identified that patient was under the influence and phoned local PD. As police arrived, he was stumbling and incoherent therefore EMS was notified. 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 He has an extensive history of not following through on recommendations and outpatient non-adherence. He states preference for referral to [facility] for inpatient rehab. He is encouraged to utilize his phone and to fully participate in discharge planning. Inpatient DSM-V Dx: F19.29 Plan - Treatment Plan Treatment Plan: Patient endorses SI with plan to walk in front of traffic. Continue 1:1 observation and avoid use of benzodiazepines for anxiety. Instead, promote healthy coping skills and utilize hydroxyzine prn for anxiety. Due to history of behavioral disturbances, may use thorazine prn for agitation. Continue medical monitoring. Psychiatry will reassess in AM. Continued Medication Management: Start Medication Medications: Current Medications Acetaminophen (Tylenol Tab*) 650 mg PO Q6H PRN PRN Reason: pain/fever Last Admin: 01/29/18 09:56 Dose: 650 mg Chlorpromazine HCl (Thorazine Tab*) 50 mg PO Q6H PRN PRN Reason: AGITATION Hydroxyzine HCl (Atarax Tab*) 50 mg PO Q4H PRN PRN Reason: ANXIETY Levothyroxine Sodium (Synthroid Tab*) 150 mcg PO 0800 KHRIS Nicotine Polacrilex (Nicotine Gum*) 2 mg PO Q2H PRN PRN Reason: CRAVING Last Admin: 01/29/18 14:56 Dose: 2 mg - Discharge Plan Discharge Plan: Drug/Alcohol Rehab
[2018-01-31] MEDS: Levothyroxine TAB* 150 MCG TAB PO SCH (07:58)
[2018-01-31] MEDS: Nicotine GUM* 2 MG PO PRN (07:58)
[2018-01-31] MEDS ORDERED: Mouth Piece, Nicotine* 1 EACH CARTRIDGE INH PRN (09:20)
[2018-01-31] MEDS: Nicotine Inhaler* 10 MG AMP INH PRN ×6 (10:05→23:05)
--- NOTE | 2018-01-31 12:11 | PN ---
Subjective - Subjective Date of Service: 01/31/18 Service Type: 44177 Hosp care 25 min moderate complexity Subjective: Patient continues to endorse desire for inpatient rehab. He states he has been calling [facility] and spoke with [facility] ([phone]) and [facility] who have promised to hold a bed for him when one is available. His phone is out of battery today and his mother is going to [place] to gather belongings, including the phone supervisor stock ranch. Metal Drilling Machine Operator phones [facility] and leaves with patient consent. Patient is cooperative with interview and states appreciation for leader writer's frankness. He states "I'm aware of the fact that you know I can turn it on" in regards to explaining his behavior and making promises to continue recovery. We discuss use of naltrexone for alcohol and opiate use disorder. Patient is in agreement and states "coricidin breaks down into opiate and PCP." Objective - Appearance Appearance: Well Developed/Nourished Dysmorphic Features: No Hygiene: Normal Grooming: Fairly Well Kept - Behavior Psychomotor Activities: Normal Exhibits Abnormal Movement: No - Attitude and Relatedness Attitude and Relatedness: Superficially Cooperative Eye Contact: Good - Speech Quality: Unpressured Latencies: Normal Quantity: Appropriate - Mood Patient's Decription of Mood: "Good" - Affect Observed Affect: Good Affect Consistent with: Euthymia - Thought Process Patient's Thought Process: Circumstantial Thought Content: No Passive Wish, No Suicidal Planning, No Homicidal Ideation, No Paranoid Ideation - Sensorium Experiencing Hallucinations: No, Sensorium is Clear Type of Hallucinations: Visual: No, Auditory: No, Command: No - Level of Consciousness Level of Consciousness: Alert Orientation: Yes Intact, Yes Orientated to Time, Yes Orientated to Place, Yes Orientated to Person - Impulse Control Impulse Control: Impaired - Insight and Judgement Insight and Judgement: Poor Assessment - Assessment Inpatient DSM-V Dx: F19.29 Clinical Impression: Fernie is a 27yo white male with history of polysubstance use disorder who presented to ED via EMS after police were notified for welfare check. Patient' s peer material specialist in [place] phoned him, identified that patient was under the influence and phoned local PD. As police arrived, he was stumbling and incoherent therefore EMS was notified. 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 He has an extensive history of not following through on recommendations and outpatient non-adherence. He states preference for referral to [facility] in [place] for inpatient rehab. He is encouraged to utilize his phone and to fully participate in discharge planning. Plan - Plan Treatment Plan: Patient endorses desire for inpatient rehab. Continue 1:1 observation due to impaired impulse control and risk for harm to self. avoid use of benzodiazepines for anxiety. Instead, promote healthy coping skills and utilize hydroxyzine prn for anxiety. Due to history of behavioral disturbances , may use thorazine prn for agitation. VMs left for intake personnel at [facility], awaiting information prior to disposition. Continued Medication Management: Start Medication Medications: Current Medications Acetaminophen (Tylenol Tab*) 650 mg PO Q6H PRN PRN Reason: pain/fever Last Admin: 01/29/18 09:56 Dose: 650 mg Chlorpromazine HCl (Thorazine Tab*) 50 mg PO Q6H PRN PRN Reason: AGITATION Last Admin: 01/30/18 20:42 Dose: 50 mg Device (Nicotine Mouth Piece*) 1 each INH .USE WITH NICOTROL PRN PRN Reason: CRAVING Last Admin: 01/31/18 10:02 Dose: 1 each Hydroxyzine HCl (Atarax Tab*) 50 mg PO Q4H PRN PRN Reason: ANXIETY Levothyroxine Sodium (Synthroid Tab*) 150 mcg PO 0800 KHRIS Last Admin: 01/31/18 07:58 Dose: 150 mcg Nicotine (Nicotine Inhaler*) 10 mg INH Q2H PRN PRN Reason: CRAVING Last Admin: 01/31/18 10:05 Dose: 10 mg Nicotine Polacrilex (Nicotine Gum*) 2 mg PO Q2H PRN PRN Reason: CRAVING Last Admin: 01/31/18 07:58 Dose: 2 mg naltrexone 50mg PO daily - Discharge Plan Discharge Plan: Drug/Alcohol Rehab
[2018-01-31] MEDS: Naltrexone TAB* 50 MG TAB PO SCH (14:01)
--- NOTE | 2018-01-31 16:34 | PN ---
Subjective Date of Service: 01/31/18 Interval History: Patient was seen and examined earlier this morning. Reports feeling better overall. He worries about "future plans", wants to continue hospitalization at [facility] until ready for rehab facility. He denies any tremors, chest pain, anxiety, suicidal ideation or any other symptoms. Family History: Unchanged from Admission Social History: Unchanged from Admission Past Medical History: Unchanged from Admission Objective Active Medications: Acetaminophen (Tylenol Tab*) 650 mg PO Q6H PRN PRN Reason: pain/fever Last Admin: 01/29/18 09:56 Dose: 650 mg Chlorpromazine HCl (Thorazine Tab*) 50 mg PO Q6H PRN PRN Reason: AGITATION Last Admin: 01/30/18 20:42 Dose: 50 mg Device (Nicotine Mouth Piece*) 1 each INH .USE WITH NICOTROL PRN PRN Reason: CRAVING Last Admin: 01/31/18 10:02 Dose: 1 each Hydroxyzine HCl (Atarax Tab*) 50 mg PO Q4H PRN PRN Reason: ANXIETY Levothyroxine Sodium (Synthroid Tab*) 150 mcg PO 0800 KHRIS Last Admin: 01/31/18 07:58 Dose: 150 mcg Naltrexone HCl (Naltrexone Tab*) 50 mg PO DAILY KHRIS; Protocol Last Admin: 01/31/18 14:01 Dose: 50 mg Nicotine (Nicotine Inhaler*) 10 mg INH Q2H PRN PRN Reason: CRAVING Last Admin: 01/31/18 15:06 Dose: 10 mg Nicotine Polacrilex (Nicotine Gum*) 2 mg PO Q2H PRN PRN Reason: CRAVING Last Admin: 01/31/18 07:58 Dose: 2 mg Oxygen Devices in Use Now: None Appearance: Appears healthy and well developed, comfortable laying in bed, and in NAD. Eyes: No Scleral Icterus, PERRLA Ears/Nose/Mouth/Throat: Clear Oropharnyx, Mucous Membranes Moist Neck: NL Appearance and Movements; NL JVP, Trachea Midline Respiratory: Symmetrical Chest Expansion and Respiratory Effort, Clear to Auscultation Cardiovascular: NL Sounds; No Murmurs; No JVD, RRR Abdominal: NL Sounds; No Tenderness; No Distention Extremities: No Edema Skin: No Rash or Ulcers Neurological: Alert and Oriented x 3 Nutrition: Taking PO's Result Diagrams: 01/29/18 05:28 01/29/18 05:28 Additional Lab and Data: . Microbiology and Other Data: . Diagnostic Imaging: . EKG Data: . Assess/Plan/Problems-Billing Assessment: 27 yo male with a PMH hx of polysubstance abuse, depression, psychiatric disorders with multiple hospitalizations who is well known to our service who presented to the ER on 01/28 brought in by the Police. Patient reported he took 48 pills of Coricidin - Patient Problems (1) Polysubstance abuse Current Visit: Yes Status: Acute Comment: - Overdosed on Coricidin for recreational purposes. Denies suicidal ideation intially, then expressed desire to "throw himself at traffic" in ED. Posion Control has been contacted. - Clinically stable, off telemetry. 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 Given his inability to control his impulsive behavior the room has been evaluated and items have been removed that the pt could swallow Labs are unremarkable - Appreciate psych consult - Will continue 1:1 observation. Pt would like to go to [facility] for rehab but has not been accepted - they have accepted him in the past and he has been noncompliant. - Seen by psych today for a follow-up, plan for drug rehab at [facility] tomorrow. If no placement available, will likely to be discharged to [facility] until rehab accepts him back. (2) Suicidal ideation Current Visit: Yes Status: Acute Comment: - Currently stable and co-operative. (3) Tobacco abuse Current Visit: Yes Status: Acute Comment: - nicotine gum and inhalers only, since he has hx of swallowing patches (4) DVT prophylaxis Current Visit: Yes Status: Acute Comment: - SCDs, frequent ambulation (5) Full code status Current Visit: Yes Status: Acute Status and Disposition: inpatient for overdose, Social work following. Plan for DC to [facility] rehab facility tomorrow vs d/c to [facility] if no rehab available.
[2018-02-01] MEDS: Naltrexone TAB* 50 MG TAB PO SCH (08:36)
[2018-02-01] MEDS: Levothyroxine TAB* 150 MCG TAB PO SCH (08:36)
[2018-02-01] MEDS: Nicotine Inhaler* 10 MG AMP INH PRN ×6 (08:37→21:48)
--- NOTE | 2018-02-01 11:57 | PN ---
Subjective - Subjective Date of Service: 02/01/18 Service Type: [id number] Hosp care 15 min low complexity Subjective: Anesthesia Resident received VM from [facility] at [facility]. She has told the patient that bed will not likely be available until next week and that he must be free of medical and suicidal concerns prior to admission. Patient continues to endorse desire to attend inpatient rehab. We review written assignments given to him about substance use history. Patient denies SI or urges for self harm. He is notified of awaiting bed availability at [facility]. Objective - Appearance Appearance: Well Developed/Nourished Dysmorphic Features: No Hygiene: Normal Grooming: Fairly Well Kept - Behavior Psychomotor Activities: Normal Exhibits Abnormal Movement: No - Attitude and Relatedness Attitude and Relatedness: Superficially Cooperative Eye Contact: Fair - Speech Quality: Unpressured Latencies: Normal Quantity: Appropriate - Mood Patient's Decription of Mood: "Okay" - Affect Observed Affect: Good Affect Consistent with: Euthymia - Thought Process Patient's Thought Process: Coherent, Goal Directed Thought Content: No Passive Wish, No Suicidal Planning, No Homicidal Ideation, No Paranoid Ideation - Sensorium Experiencing Hallucinations: No, Sensorium is Clear Type of Hallucinations: Visual: No, Auditory: No, Command: No - Level of Consciousness Level of Consciousness: Alert Orientation: Yes Intact, Yes Orientated to Time, Yes Orientated to Place, Yes Orientated to Person - Impulse Control Impulse Control: Impaired - Insight and Judgement Insight and Judgement: Impaired Assessment - Assessment Merits Inpatient Hospitalization: For Immediate Safety, For Stabilization, Consolidate Improvements Inpatient DSM-V Dx: F19.29 Clinical Impression: Fernie is a 27yo white male with history of polysubstance use disorder who presented to ED via EMS after police were notified for welfare check. Patient' s peer system support specialist in [place] phoned him, identified that patient was under the influence and phoned local PD. As police arrived, he was stumbling and incoherent therefore EMS was notified. 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 He has an extensive history of not following through on recommendations and outpatient non-adherence. He states preference for referral to [facility] in [place] for inpatient rehab. He is encouraged to utilize his phone and to fully participate in discharge planning. Plan - Plan Treatment Plan: Patient endorses desire for inpatient rehab. Patient has limited benefit from milieu treatment on BSU. Continue observation on medical floor until bed availability at [facility]. Continue constant observation due to impaired impulse control and risk for harm to self. avoid use of benzodiazepines for anxiety. Instead, promote healthy coping skills and utilize hydroxyzine prn for anxiety. Due to history of behavioral disturbances, may use thorazine prn for agitation. Continued Medication Management: Start Medication Medications: Current Medications Acetaminophen (Tylenol Tab*) 650 mg PO Q6H PRN PRN Reason: pain/fever Last Admin: 01/29/18 09:56 Dose: 650 mg Chlorpromazine HCl (Thorazine Tab*) 50 mg PO Q6H PRN PRN Reason: AGITATION Last Admin: 01/30/18 20:42 Dose: 50 mg Device (Nicotine Mouth Piece*) 1 each INH .USE WITH NICOTROL PRN PRN Reason: CRAVING Last Admin: 01/31/18 10:02 Dose: 1 each Hydroxyzine HCl (Atarax Tab*) 50 mg PO Q4H PRN PRN Reason: ANXIETY Levothyroxine Sodium (Synthroid Tab*) 150 mcg PO 0800 KHRIS Last Admin: 02/01/18 08:36 Dose: 150 mcg Naltrexone HCl (Naltrexone Tab*) 50 mg PO DAILY KHRIS; Protocol Last Admin: 02/01/18 08:36 Dose: 50 mg Nicotine (Nicotine Inhaler*) 10 mg INH Q2H PRN PRN Reason: CRAVING Last Admin: 02/01/18 08:37 Dose: 10 mg Nicotine Polacrilex (Nicotine Gum*) 2 mg PO Q2H PRN PRN Reason: CRAVING Last Admin: 01/31/18 07:58 Dose: 2 mg - Discharge Plan Discharge Plan: Drug/Alcohol Rehab
--- NOTE | 2018-02-01 14:27 | PN ---
Subjective Date of Service: 02/01/18 Interval History: Fernie reports doing well today. He denies any suicidal thoughts or any other symptoms. See earlier by mental health provider, a message from [facility] rehab facility stated there was no room available until next week. Patient continues to express desire to attend rehab, would like a "new start" with a promise not abuse any drugs in the future. He has no complaints today. Family History: Unchanged from Admission Social History: Unchanged from Admission Past Medical History: Unchanged from Admission Objective Active Medications: Acetaminophen (Tylenol Tab*) 650 mg PO Q6H PRN PRN Reason: pain/fever Last Admin: 01/29/18 09:56 Dose: 650 mg Chlorpromazine HCl (Thorazine Tab*) 50 mg PO Q6H PRN PRN Reason: AGITATION Last Admin: 01/30/18 20:42 Dose: 50 mg Device (Nicotine Mouth Piece*) 1 each INH .USE WITH NICOTROL PRN PRN Reason: CRAVING Last Admin: 01/31/18 10:02 Dose: 1 each Hydroxyzine HCl (Atarax Tab*) 50 mg PO Q4H PRN PRN Reason: ANXIETY Levothyroxine Sodium (Synthroid Tab*) 150 mcg PO 0800 KHRIS Last Admin: 02/01/18 08:36 Dose: 150 mcg Naltrexone HCl (Naltrexone Tab*) 50 mg PO DAILY [facility]; Protocol Last Admin: 02/01/18 08:36 Dose: 50 mg Nicotine (Nicotine Inhaler*) 10 mg INH Q2H PRN PRN Reason: CRAVING Last Admin: 02/01/18 11:49 Dose: 10 mg Nicotine Polacrilex (Nicotine Gum*) 2 mg PO Q2H PRN PRN Reason: CRAVING Last Admin: 01/31/18 07:58 Dose: 2 mg Vital Signs - 8 hr 02/01/18 02/01/18 02/01/18 07:31 08:00 11:31 Temperature 97.5 F 97.9 F Pulse Rate 100 81 Respiratory 18 18 Rate Blood Pressure 121/82 132/84 (mmHg) O2 Sat by Pulse 99 96 Oximetry Oxygen Devices in Use Now: None Appearance: Appears healthy, comfortable and in NAD. Eyes: No Scleral Icterus, PERRLA Ears/Nose/Mouth/Throat: Clear Oropharnyx, Mucous Membranes Moist Neck: NL Appearance and Movements; NL JVP, Trachea Midline Respiratory: Symmetrical Chest Expansion and Respiratory Effort, Clear to Auscultation Cardiovascular: NL Sounds; No Murmurs; No JVD, RRR Abdominal: NL Sounds; No Tenderness; No Distention Extremities: No Edema Neurological: Alert and Oriented x 3 Nutrition: Taking PO's Result Diagrams: 01/29/18 05:28 01/29/18 05:28 Additional Lab and Data: . Microbiology and Other Data: . Diagnostic Imaging: . EKG Data: . Assess/Plan/Problems-Billing Assessment: 27 yo male with a PMH hx of polysubstance abuse, depression, psychiatric disorders with multiple hospitalizations who is well known to our service who presented to the ER on 01/28 brought in by the Police. Patient reported he took 48 pills of Coricidin - Patient Problems (1) Polysubstance abuse Current Visit: Yes Status: Acute Comment: - Overdosed on Coricidin for recreational purposes. Denies suicidal ideation intially, then expressed desire to "throw himself at traffic" in ED. Posion Control has been contacted. - Clinically stable, off telemetry. 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 Given his inability to control his impulsive behavior the room has been evaluated and items have been removed that the pt could swallow Labs are unremarkable - Appreciate psych consult - Will continue 1:1 observation. Pt would like to go to [facility] for rehab, no bed available at this time, continue admission due to risk of impulsive behavior and self-harm. - Seen by psych today for a follow-up, plan for drug rehab at [facility] next week. (2) Suicidal ideation Current Visit: Yes Status: Acute Comment: - Currently stable and co-operative. (3) Tobacco abuse Current Visit: Yes Status: Acute Comment: - nicotine gum and inhalers only, since he has hx of swallowing patches (4) DVT prophylaxis Current Visit: Yes Status: Acute Comment: - SCDs, frequent ambulation (5) Full code status Current Visit: Yes Status: Acute Status and Disposition: Inpatient until medically stable. Anticipate discharge to [facility] rehab facility next week.
[2018-02-02] MEDS: Nicotine Inhaler* 10 MG AMP INH PRN ×9 (00:06→22:10)
[2018-02-02] MEDS: Levothyroxine TAB* 150 MCG TAB PO SCH (08:47)
[2018-02-02] MEDS ORDERED: Naltrexone INJ 380 MG IM ONE (09:00)
--- NOTE | 2018-02-02 13:35 | PN ---
Subjective - Subjective Date of Service: 02/02/18 Service Type: [id number] Hosp care 15 min low complexity Subjective: Patient continues to endorse desire for inpatient rehab. He is instructed to call [facility] to verify if bed available. Patient given packet and instructions to work on step 1 of 12 steps over the weekend. He starts to tell me his various motivations then stops himself and says "words are meaningless" in regards to changing behaviors. Patient encouraged to take action in recovery. He received Vivitrol injection, as ordered. Next due injection due on 03/02/18. Objective - Appearance Appearance: Well Developed/Nourished Dysmorphic Features: No Hygiene: Normal Grooming: Fairly Well Kept - Behavior Psychomotor Activities: Normal Exhibits Abnormal Movement: No - Attitude and Relatedness Attitude and Relatedness: Superficially Cooperative Eye Contact: Good - Speech Quality: Unpressured Latencies: Normal Quantity: Appropriate - Mood Patient's Decription of Mood: "Good" - Affect Observed Affect: Good Affect Consistent with: Euthymia - Thought Process Patient's Thought Process: Coherent, Goal Directed Thought Content: No Passive Wish, No Suicidal Planning, No Homicidal Ideation, No Paranoid Ideation - Sensorium Experiencing Hallucinations: No, Sensorium is Clear Type of Hallucinations: Visual: No, Auditory: No, Command: No - Level of Consciousness Level of Consciousness: Alert Orientation: Yes Intact, Yes Orientated to Time, Yes Orientated to Place, Yes Orientated to Person - Impulse Control Impulse Control: Impaired - Insight and Judgement Insight and Judgement: Impaired - Medication Management Medication Management Adherence: Yes Assessment - Assessment Merits Inpatient Hospitalization: For Immediate Safety, For Stabilization Inpatient DSM-V Dx: F19.29 Clinical Impression: Fernie is a 27yo white male with history of polysubstance use disorder who presented to ED via EMS after police were notified for welfare check. Patient' s peer promotions specialist in [place] phoned him, identified that patient was under the influence and phoned local PD. As police arrived, he was stumbling and incoherent therefore EMS was notified. 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 He has an extensive history of not following through on recommendations and outpatient non-adherence. He states preference for referral to [facility] in [place] for inpatient rehab. He is encouraged to utilize his phone and to fully participate in discharge planning. Plan - Plan Treatment Plan: Patient endorses desire for inpatient rehab. Patient has limited benefit from milieu treatment on [facility]. Continue observation on medical floor until bed availability at [facility]. Continue constant observation due to impaired impulse control and risk for harm to self. avoid use of benzodiazepines for anxiety. Instead, promote healthy coping skills and utilize hydroxyzine prn for anxiety. Due to history of behavioral disturbances, may use thorazine prn for agitation. patient received Vivitrol injection on 02/02/18. Next injection due 03/02/18. Continued Medication Management: Start Medication Medications: Current Medications Acetaminophen (Tylenol Tab*) 650 mg PO Q6H PRN PRN Reason: pain/fever Last Admin: 01/29/18 09:56 Dose: 650 mg Chlorpromazine HCl (Thorazine Tab*) 50 mg PO Q6H PRN PRN Reason: AGITATION Last Admin: 01/30/18 20:42 Dose: 50 mg Device (Nicotine Mouth Piece*) 1 each INH .USE WITH NICOTROL PRN PRN Reason: CRAVING Last Admin: 01/31/18 10:02 Dose: 1 each Hydroxyzine HCl (Atarax Tab*) 50 mg PO Q4H PRN PRN Reason: ANXIETY Levothyroxine Sodium (Synthroid Tab*) 150 mcg PO 0800 KHRIS Last Admin: 02/02/18 08:47 Dose: 150 mcg Nicotine (Nicotine Inhaler*) 10 mg INH Q2H PRN PRN Reason: CRAVING Last Admin: 02/02/18 11:37 Dose: 10 mg Nicotine Polacrilex (Nicotine Gum*) 2 mg PO Q2H PRN PRN Reason: CRAVING Last Admin: 01/31/18 07:58 Dose: 2 mg - Discharge Plan Discharge Plan: Drug/Alcohol Rehab
--- NOTE | 2018-02-02 15:37 | PN ---
Subjective Date of Service: 02/02/18 Interval History: Fernie has been doing very well. Denies any complaints. Has been ambulating around unit. Denies suicidal thoughts, anxiety, chest pain or any other issues. Seen by psych, awaiting placement to [facility] rehab facility next week. Family History: Unchanged from Admission Social History: Unchanged from Admission Past Medical History: Unchanged from Admission Objective Active Medications: Acetaminophen (Tylenol Tab*) 650 mg PO Q6H PRN PRN Reason: pain/fever Last Admin: 01/29/18 09:56 Dose: 650 mg Chlorpromazine HCl (Thorazine Tab*) 50 mg PO Q6H PRN PRN Reason: AGITATION Last Admin: 01/30/18 20:42 Dose: 50 mg Device (Nicotine Mouth Piece*) 1 each INH .USE WITH NICOTROL PRN PRN Reason: CRAVING Last Admin: 01/31/18 10:02 Dose: 1 each Hydroxyzine HCl (Atarax Tab*) 50 mg PO Q4H PRN PRN Reason: ANXIETY Levothyroxine Sodium (Synthroid Tab*) 150 mcg PO 0800 KHRIS Last Admin: 02/02/18 08:47 Dose: 150 mcg Nicotine (Nicotine Inhaler*) 10 mg INH Q2H PRN PRN Reason: CRAVING Last Admin: 02/02/18 13:46 Dose: 10 mg Nicotine Polacrilex (Nicotine Gum*) 2 mg PO Q2H PRN PRN Reason: CRAVING Last Admin: 01/31/18 07:58 Dose: 2 mg Vital Signs - 8 hr 02/02/18 08:00 Temperature 97.6 F Pulse Rate 92 Respiratory 18 Rate Blood Pressure 123/88 (mmHg) O2 Sat by Pulse 98 Oximetry Oxygen Devices in Use Now: None Appearance: Appears comfortable and in NAD Eyes: No Scleral Icterus, PERRLA Ears/Nose/Mouth/Throat: Clear Oropharnyx, Mucous Membranes Moist Neck: NL Appearance and Movements; NL JVP, Trachea Midline Respiratory: Symmetrical Chest Expansion and Respiratory Effort, Clear to Auscultation Cardiovascular: NL Sounds; No Murmurs; No JVD, RRR Abdominal: NL Sounds; No Tenderness; No Distention Extremities: No Edema Neurological: Alert and Oriented x 3 Result Diagrams: 01/29/18 05:28 01/29/18 05:28 Additional Lab and Data: . Microbiology and Other Data: . Diagnostic Imaging: . EKG Data: . Assess/Plan/Problems-Billing Assessment: 27 yo male with a PMH hx of polysubstance abuse, depression, psychiatric disorders with multiple hospitalizations who is well known to our service who presented to the ER on 01/28 brought in by the Police. Patient reported he took 48 pills of Coricidin - Patient Problems (1) Polysubstance abuse Current Visit: Yes Status: Acute Comment: - Overdosed on Coricidin for recreational purposes. Denies suicidal ideation intially, then expressed desire to "throw himself at traffic" in ED. [employer] Control has been contacted. - Clinically stable, off telemetry. 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 Given his inability to control his impulsive behavior the room has been evaluated and items have been removed that the pt could swallow Labs are unremarkable - Appreciate psych consult - Will continue 1:1 observation. Pt would like to go to [facility] for rehab, no bed available at this time, continue admission due to risk of impulsive behavior and self-harm. - Seen by psych today for a follow-up, plan for drug rehab at [facility] next week. (2) Suicidal ideation Current Visit: Yes Status: Acute Comment: - Currently stable and co-operative. (3) Tobacco abuse Current Visit: Yes Status: Acute Comment: - nicotine gum and inhalers only, since he has hx of swallowing patches (4) DVT prophylaxis Current Visit: Yes Status: Acute Comment: - SCDs, frequent ambulation (5) Full code status Current Visit: Yes Status: Acute Status and Disposition: Inpatient until medically stable. Anticipate discharge to [facility] rehab facility next week.
[2018-02-03] MEDS: Nicotine Inhaler* 10 MG AMP INH PRN ×6 (07:29→20:38)
[2018-02-03] MEDS: Levothyroxine TAB* 150 MCG TAB PO SCH (07:29)
--- NOTE | 2018-02-03 17:05 | PN ---
Subjective Date of Service: 02/03/18 Interval History: Fernie continues to do well. He has no complaints today. Family History: Unchanged from Admission Social History: Unchanged from Admission Past Medical History: Unchanged from Admission Objective Active Medications: Acetaminophen (Tylenol Tab*) 650 mg PO Q6H PRN PRN Reason: pain/fever Last Admin: 01/29/18 09:56 Dose: 650 mg Chlorpromazine HCl (Thorazine Tab*) 50 mg PO Q6H PRN PRN Reason: AGITATION Last Admin: 01/30/18 20:42 Dose: 50 mg Device (Nicotine Mouth Piece*) 1 each INH .USE WITH NICOTROL PRN PRN Reason: CRAVING Last Admin: 01/31/18 10:02 Dose: 1 each Hydroxyzine HCl (Atarax Tab*) 50 mg PO Q4H PRN PRN Reason: ANXIETY Levothyroxine Sodium (Synthroid Tab*) 150 mcg PO 0800 KHRIS Last Admin: 02/03/18 07:29 Dose: 150 mcg Nicotine (Nicotine Inhaler*) 10 mg INH Q2H PRN PRN Reason: CRAVING Last Admin: 02/03/18 15:27 Dose: 10 mg Nicotine Polacrilex (Nicotine Gum*) 2 mg PO Q2H PRN PRN Reason: CRAVING Last Admin: 01/31/18 07:58 Dose: 2 mg Vital Signs - 8 hr 02/03/18 15:26 Temperature 97.4 F Pulse Rate 111 Respiratory 20 Rate Blood Pressure 131/89 (mmHg) O2 Sat by Pulse 99 Oximetry Oxygen Devices in Use Now: None Appearance: Appears comfortale and in NAD Eyes: No Scleral Icterus, PERRLA Ears/Nose/Mouth/Throat: NL Teeth, Lips, Gums, Mucous Membranes Moist Neck: NL Appearance and Movements; NL JVP, Trachea Midline Respiratory: Symmetrical Chest Expansion and Respiratory Effort, Clear to Auscultation Cardiovascular: NL Sounds; No Murmurs; No JVD, RRR Abdominal: NL Sounds; No Tenderness; No Distention Extremities: No Edema Neurological: Alert and Oriented x 3 Nutrition: Taking PO's Result Diagrams: 01/29/18 05:28 01/29/18 05:28 Additional Lab and Data: . Microbiology and Other Data: . Diagnostic Imaging: . EKG Data: . Assess/Plan/Problems-Billing Assessment: 27 yo male with a PMH hx of polysubstance abuse, depression, psychiatric disorders with multiple hospitalizations who is well known to our service who presented to the ER on 01/28 brought in by the Police. Patient reported he took 48 pills of Coricidin - Patient Problems (1) Polysubstance abuse Current Visit: Yes Status: Acute Comment: - Overdosed on Coricidin for recreational purposes. Denies suicidal ideation intially, then expressed desire to "throw himself at traffic" in ED. Posion Control has been contacted. - Clinically stable, off telemetry. 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 Given his inability to control his impulsive behavior the room has been evaluated and items have been removed that the pt could swallow Labs are unremarkable - Appreciate psych consult - Will continue 1:1 observation. Pt would like to go to [facility] for rehab, no bed available at this time, continue admission due to risk of impulsive behavior and self-harm. - Seen by psych today for a follow-up, plan for drug rehab at [facility] next week. (2) Suicidal ideation Current Visit: Yes Status: Acute Comment: - Currently stable and co-operative. (3) Tobacco abuse Current Visit: Yes Status: Acute Comment: - nicotine gum and inhalers only, since he has hx of swallowing patches (4) DVT prophylaxis Current Visit: Yes Status: Acute Comment: - SCDs, frequent ambulation (5) Full code status Current Visit: Yes Status: Acute Status and Disposition: Inpatient until medically stable. Anticipate discharge to [facility] rehab facility next week.
[2018-02-04] MEDS: Nicotine Inhaler* 10 MG AMP INH PRN ×8 (07:18→22:37)
[2018-02-04] MEDS: Levothyroxine TAB* 150 MCG TAB PO SCH (07:18)
--- NOTE | 2018-02-04 15:47 | PN ---
Subjective Date of Service: 02/04/18 Interval History: Reports no changes. Feeling well, denies any anxiety or suicidal thoughts. Looking forward for discharge to rehab soon. Family History: Unchanged from Admission Social History: Unchanged from Admission Past Medical History: Unchanged from Admission Objective Active Medications: Acetaminophen (Tylenol Tab*) 650 mg PO Q6H PRN PRN Reason: pain/fever Last Admin: 01/29/18 09:56 Dose: 650 mg Chlorpromazine HCl (Thorazine Tab*) 50 mg PO Q6H PRN PRN Reason: AGITATION Last Admin: 01/30/18 20:42 Dose: 50 mg Device (Nicotine Mouth Piece*) 1 each INH .USE WITH NICOTROL PRN PRN Reason: CRAVING Last Admin: 01/31/18 10:02 Dose: 1 each Hydroxyzine HCl (Atarax Tab*) 50 mg PO Q4H PRN PRN Reason: ANXIETY Levothyroxine Sodium (Synthroid Tab*) 150 mcg PO 0800 KHRIS Last Admin: 02/04/18 07:18 Dose: 150 mcg Nicotine (Nicotine Inhaler*) 10 mg INH Q2H PRN PRN Reason: CRAVING Last Admin: 02/04/18 13:34 Dose: 10 mg Nicotine Polacrilex (Nicotine Gum*) 2 mg PO Q2H PRN PRN Reason: CRAVING Last Admin: 01/31/18 07:58 Dose: 2 mg Vital Signs - 8 hr 02/04/18 02/04/18 08:03 15:10 Temperature 98.0 F 98.3 F Pulse Rate 75 68 Respiratory 18 16 Rate Blood Pressure 124/82 134/82 (mmHg) O2 Sat by Pulse 97 98 Oximetry Oxygen Devices in Use Now: None Appearance: Appears comfortable and in NAD Eyes: No Scleral Icterus, PERRLA Ears/Nose/Mouth/Throat: Clear Oropharnyx, Mucous Membranes Moist Neck: NL Appearance and Movements; NL JVP, Trachea Midline Respiratory: Symmetrical Chest Expansion and Respiratory Effort, Clear to Auscultation Cardiovascular: NL Sounds; No Murmurs; No JVD, RRR Abdominal: NL Sounds; No Tenderness; No Distention Extremities: No Edema Neurological: Alert and Oriented x 3 Nutrition: Taking PO's Result Diagrams: 01/29/18 05:28 01/29/18 05:28 Additional Lab and Data: . Microbiology and Other Data: . Diagnostic Imaging: . EKG Data: . Assess/Plan/Problems-Billing Assessment: 27 yo male with a PMH hx of polysubstance abuse, depression, psychiatric disorders with multiple hospitalizations who is well known to our service who presented to the ER on 01/28 brought in by the Police. Patient reported he took 48 pills of Coricidin - Patient Problems (1) Polysubstance abuse Current Visit: Yes Status: Acute Comment: - Overdosed on Coricidin for recreational purposes. Denies suicidal ideation intially, then expressed desire to "throw himself at traffic" in ED. Posion Control has been contacted. - Clinically stable, off telemetry. 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 Given his inability to control his impulsive behavior the room has been evaluated and items have been removed that the pt could swallow Labs are unremarkable - Appreciate psych consult - Will continue 1:1 observation. Pt would like to go to [facility] for rehab, no bed available at this time, continue admission due to risk of impulsive behavior and self-harm. - Seen by psych today for a follow-up, plan for drug rehab at [facility] next week. (2) Suicidal ideation Current Visit: Yes Status: Acute Comment: - Currently stable and co-operative. (3) Tobacco abuse Current Visit: Yes Status: Acute Comment: - nicotine gum and inhalers only, since he has hx of swallowing patches (4) DVT prophylaxis Current Visit: Yes Status: Acute Comment: - SCDs, frequent ambulation (5) Full code status Current Visit: Yes Status: Acute Status and Disposition: Inpatient until medically stable. Anticipate discharge to [facility] rehab facility next week.
[2018-02-05] MEDS: Levothyroxine TAB* 150 MCG TAB PO SCH (08:38)
[2018-02-05] MEDS: Nicotine Inhaler* 10 MG AMP INH PRN ×6 (08:39→19:54)
--- NOTE | 2018-02-05 15:33 | PN ---
Subjective - Subjective Date of Service: 02/05/18 Service Type: [id number] Hosp care 15 min low complexity Subjective: Patient lying in bed upon approach, easy to rouse. He avoided the homework I gave to him on Monday. He states various reasons then stops himself and states "I need to turn the BS meter." He states he will start on homework this evening. He states intent to complete [facility] rehab when accepted. Objective - Appearance Appearance: Well Developed/Nourished Dysmorphic Features: No Hygiene: Normal Grooming: Disheveled - Behavior Psychomotor Activities: Normal Exhibits Abnormal Movement: No - Attitude and Relatedness Attitude and Relatedness: Superficially Cooperative Eye Contact: Good - Speech Quality: Unpressured Latencies: Normal Quantity: Appropriate - Mood Patient's Decription of Mood: "Okay" - Affect Observed Affect: Good Affect Consistent with: Euthymia - Thought Process Patient's Thought Process: Coherent, Goal Directed Thought Content: No Passive Wish, No Suicidal Planning, No Homicidal Ideation, No Paranoid Ideation - Sensorium Experiencing Hallucinations: No, Sensorium is Clear Type of Hallucinations: Visual: No, Auditory: No, Command: No - Level of Consciousness Level of Consciousness: Alert Orientation: No Intact, No Orientated to Time, No Orientated to Place, No Orientated to Person - Impulse Control Impulse Control: Impaired - Insight and Judgement Insight and Judgement: Impaired Assessment - Assessment Merits Inpatient Hospitalization: For Immediate Safety, For Stabilization, Pending Safe DC Plan Inpatient DSM-V Dx: F19.29 Clinical Impression: Fernie is a 27yo white male with history of polysubstance use disorder who presented to ED via EMS after police were notified for welfare check. Patient' s peer family law specialist in [place] phoned him, identified that patient was under the influence and phoned local PD. As police arrived, he was stumbling and incoherent therefore EMS was notified. 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 He has an extensive history of not following through on recommendations and outpatient non-adherence. He states preference for referral to [facility] in [place] for inpatient rehab. He is encouraged to utilize his phone and to fully participate in discharge planning. Plan - Plan Treatment Plan: Patient endorses desire for inpatient rehab. Patient has limited benefit from milieu treatment on [facility]. Continue observation on medical floor until bed availability at [facility]. Continue constant observation due to impaired impulse control and risk for harm to self. avoid use of benzodiazepines for anxiety. Instead, promote healthy coping skills and utilize hydroxyzine prn for anxiety. Due to history of behavioral disturbances, may use thorazine prn for agitation. patient received Vivitrol injection on 02/02/18. Next injection due 03/02/18. Medications: Current Medications Acetaminophen (Tylenol Tab*) 650 mg PO Q6H PRN PRN Reason: pain/fever Last Admin: 01/29/18 09:56 Dose: 650 mg Chlorpromazine HCl (Thorazine Tab*) 50 mg PO Q6H PRN PRN Reason: AGITATION Last Admin: 01/30/18 20:42 Dose: 50 mg Device (Nicotine Mouth Piece*) 1 each INH .USE WITH NICOTROL PRN PRN Reason: CRAVING Last Admin: 01/31/18 10:02 Dose: 1 each Hydroxyzine HCl (Atarax Tab*) 50 mg PO Q4H PRN PRN Reason: ANXIETY Levothyroxine Sodium (Synthroid Tab*) 150 mcg PO 0800 KHRIS Last Admin: 02/05/18 08:38 Dose: 150 mcg Nicotine (Nicotine Inhaler*) 10 mg INH Q2H PRN PRN Reason: CRAVING Last Admin: 02/05/18 15:25 Dose: 10 mg Nicotine Polacrilex (Nicotine Gum*) 2 mg PO Q2H PRN PRN Reason: CRAVING Last Admin: 01/31/18 07:58 Dose: 2 mg - Discharge Plan Discharge Plan: Drug/Alcohol Rehab
--- NOTE | 2018-02-05 15:43 | PN ---
Subjective Date of Service: 02/05/18 Interval History: Patient seen and examined at bedside. Denies fever, chills, shortness of breath , chest discomfort, N/V/D. Pt continues to have a 1:1 at bedside. He has been seen by [facility] today and is aware that he will be discharged to [facility] on Monday morning. Family History: Unchanged from Admission Social History: Unchanged from Admission Past Medical History: Unchanged from Admission Objective Active Medications: Acetaminophen (Tylenol Tab*) 650 mg PO Q6H PRN Reason: pain/fever Chlorpromazine HCl (Thorazine Tab*) 50 mg PO Q6H PRN Reason: AGITATION Device (Nicotine Mouth Piece*) 1 each INH .USE WITH NICOTROL PRN Reason: CRAVING Hydroxyzine HCl (Atarax Tab*) 50 mg PO Q4H PRN Reason: ANXIETY Levothyroxine Sodium (Synthroid Tab*) 150 mcg PO 0800 KHRIS Nicotine (Nicotine Inhaler*) 10 mg INH Q2H PRN Reason: CRAVING Nicotine Polacrilex (Nicotine Gum*) 2 mg PO Q2H PRN Reason: CRAVING Vital Signs - 8 hr 02/05/18 02/05/18 02/05/18 07:39 07:55 11:28 Temperature 98.3 F 98.2 F Pulse Rate 63 70 Respiratory 12 16 12 Rate Blood Pressure 114/69 128/80 (mmHg) O2 Sat by Pulse 96 97 Oximetry Oxygen Devices in Use Now: None Appearance: NAD, sitting up on the side of the bed Ears/Nose/Mouth/Throat: Mucous Membranes Moist Respiratory: Symmetrical Chest Expansion and Respiratory Effort, Clear to Auscultation Cardiovascular: NL Sounds; No Murmurs; No JVD, RRR Abdominal: NL Sounds; No Tenderness; No Distention Extremities: No Edema Skin: No Rash or Ulcers Neurological: Alert and Oriented x 3, NL Muscle Strength and Tone Nutrition: Taking PO's Result Diagrams: 01/29/18 05:28 01/29/18 05:28 Additional Lab and Data: . Microbiology and Other Data: . Diagnostic Imaging: . EKG Data: . Assess/Plan/Problems-Billing Assessment: Mr. Angeles is a 27 yo male with a PMH hx of polysubstance abuse, depression, psychiatric disorders with multiple hospitalizations who is well known to our service who presented to the ER on 01/28 brought in by the Police. Patient reported he took 48 pills of Coricidin prior to admission. - Patient Problems (1) Polysubstance abuse Code(s): F19.10 - OTHER PSYCHOACTIVE SUBSTANCE ABUSE, UNCOMPLICATED SNOMED Code(s): 826077675 Comment: - Overdosed on Coricidin for recreational purposes. 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 Given his inability to control his impulsive behavior the room has been evaluated and items have been removed that the pt could swallow - Appreciate psych consult - Will continue 1:1 observation - Plan for discharge to [facility] for rehab on Monday - Continued inpatient admission due to risk of impulsive behavior and self-harm (2) coricidin dependence Comment: - Plan for discharge to rehab on monday (3) Tobacco abuse Code(s): Z72.0 - TOBACCO USE SNOMED Code(s): 367079054 Comment: - Continue nicotine replacement (nicotine gum and inhalers only, since he has hx of swallowing patches) (4) Anxiety Code(s): F41.9 - ANXIETY DISORDER, UNSPECIFIED SNOMED Code(s): 30935061 Comment: - Stable - Continue thorazine as needed (5) Chronic hepatitis C (6) History of hypertension Code(s): Z86.79 - PERSONAL HISTORY OF OTHER DISEASES OF THE CIRCULATORY SYSTEM SNOMED Code(s): 481372731 Comment: - Normotensive, SBP 110-130's - Not currently on medications (7) Hypothyroid Code(s): E03.9 - HYPOTHYROIDISM, UNSPECIFIED SNOMED Code(s): 79721219 Comment: - TSH 3.73 - Continue levothyroxine (8) Hx of traumatic brain injury Code(s): Z87.820 - PERSONAL HISTORY OF TRAUMATIC BRAIN INJURY SNOMED Code(s): 89115172982923 (9) DVT prophylaxis Code(s): YEI5876 - SNOMED Code(s): 918038641 Comment: - SCDs, frequent ambulation (10) Full code status Code(s): Z78.9 - OTHER SPECIFIED HEALTH STATUS SNOMED Code(s): 364240025 Status and Disposition: Inpatient. Anticipate discharge to [facility] rehab facility Monday.
[2018-02-06] MEDS: Levothyroxine TAB* 150 MCG TAB PO SCH (08:13)
[2018-02-06] MEDS: Nicotine Inhaler* 10 MG AMP INH PRN ×8 (08:13→22:40)
--- NOTE | 2018-02-06 14:50 | PN ---
Subjective Date of Service: 02/06/18 Interval History: Patient seen and examined at bedside. Denies fever, chills, shortness of breath , chest discomfort, N/V/D. Fernie states that he feels like he needs to turn his life around and now is the time. He is motivated to get better now and appreciates all the help that people have been giving him. Family History: Unchanged from Admission Social History: Unchanged from Admission Past Medical History: Unchanged from Admission Objective Active Medications: Acetaminophen (Tylenol Tab*) 650 mg PO Q6H PRN Reason: pain/fever Chlorpromazine HCl (Thorazine Tab*) 50 mg PO Q6H PRN Reason: AGITATION Device (Nicotine Mouth Piece*) 1 each INH .USE WITH NICOTROL PRN Reason: CRAVING Hydroxyzine HCl (Atarax Tab*) 50 mg PO Q4H PRN Reason: ANXIETY Levothyroxine Sodium (Synthroid Tab*) 150 mcg PO 0800 KHRIS Nicotine (Nicotine Inhaler*) 10 mg INH Q2H PRN Reason: CRAVING Nicotine Polacrilex (Nicotine Gum*) 2 mg PO Q2H PRN Reason: CRAVING Vital Signs - 8 hr 02/06/18 02/06/18 02/06/18 07:57 08:00 09:50 Temperature 97.2 F 97.6 F Pulse Rate 74 102 Respiratory 18 18 16 Rate Blood Pressure 97/61 131/88 (mmHg) O2 Sat by Pulse 98 98 Oximetry Oxygen Devices in Use Now: None Appearance: NAD, sitting up in bed Ears/Nose/Mouth/Throat: Mucous Membranes Moist Respiratory: Symmetrical Chest Expansion and Respiratory Effort, Clear to Auscultation Cardiovascular: NL Sounds; No Murmurs; No JVD, RRR Abdominal: NL Sounds; No Tenderness; No Distention Extremities: No Edema Skin: No Rash or Ulcers Neurological: Alert and Oriented x 3, NL Muscle Strength and Tone Lines/Tubes/Other Access: Clean, Dry and Intact Peripheral IV - site benign Nutrition: Taking PO's Result Diagrams: 01/29/18 05:28 01/29/18 05:28 Additional Lab and Data: . Microbiology and Other Data: . Diagnostic Imaging: . EKG Data: . Assess/Plan/Problems-Billing Assessment: Mr. Angeles is a 27 yo male with a H hx of polysubstance abuse, depression, psychiatric disorders with multiple hospitalizations who is well known to our service who presented to the ER on 01/28 brought in by the Police. Patient reported he took 48 pills of Coricidin prior to admission. - Patient Problems (1) Polysubstance abuse Code(s): F19.10 - OTHER PSYCHOACTIVE SUBSTANCE ABUSE, UNCOMPLICATED SNOMED Code(s): 261374290 Comment: - Overdosed on Coricidin for recreational purposes. 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 Given his inability to control his impulsive behavior the room has been evaluated and items have been removed that the pt could swallow - Appreciate psych consult - Will continue 1:1 observation - Plan for discharge to [facility] for rehab in the morning - Continued inpatient admission due to risk of impulsive behavior and self-harm (2) coricidin dependence Comment: - Plan for discharge to rehab in the morning (3) Tobacco abuse Code(s): Z72.0 - TOBACCO USE SNOMED Code(s): 776685082 Comment: - Continue nicotine replacement (nicotine gum and inhalers only, since he has hx of swallowing patches) (4) Anxiety Code(s): F41.9 - ANXIETY DISORDER, UNSPECIFIED SNOMED Code(s): 03817575 Comment: - Stable - Continue thorazine as needed (5) Chronic hepatitis C (6) History of hypertension Code(s): Z86.79 - PERSONAL HISTORY OF OTHER DISEASES OF THE CIRCULATORY SYSTEM SNOMED Code(s): 773787467 Comment: - Normotensive, SBP 90-130's - Not currently on medications (7) Hypothyroid Code(s): E03.9 - HYPOTHYROIDISM, UNSPECIFIED SNOMED Code(s): 68543539 Comment: - TSH 3.73 - Continue levothyroxine (8) Hx of traumatic brain injury Code(s): Z87.820 - PERSONAL HISTORY OF TRAUMATIC BRAIN INJURY SNOMED Code(s): 27260564798637 (9) DVT prophylaxis Code(s): ASY0008 - SNOMED Code(s): 000321282 Comment: - SCDs, frequent ambulation (10) Full code status Code(s): Z78.9 - OTHER SPECIFIED HEALTH STATUS SNOMED Code(s): 333910578 Status and Disposition: Inpatient. Stable for discharge to [facility] rehab facility in the morning.
--- NOTE | 2018-02-06 14:51 | PN ---
Subjective - Subjective Date of Service: 02/06/18 Service Type: 10857 Hosp care 15 min low complexity Subjective: Patient states he read the first page of the packet but has yet to journal. We discuss his motivation for going to and completing rehab. Patient states he has life goals that can only be obtained in sobriety. He denies SI or SIB urges. He is encouraged to continue with monthly IM of naltrexone and is due on 03/02/18. Objective - Appearance Appearance: Well Developed/Nourished Dysmorphic Features: No Hygiene: Normal Grooming: Well Kept - Behavior Psychomotor Activities: Normal - Attitude and Relatedness Attitude and Relatedness: Cooperative Eye Contact: Fair - Speech Quality: Unpressured Latencies: Normal Quantity: Appropriate - Mood Patient's Decription of Mood: "Good" - Affect Observed Affect: Good Affect Consistent with: Euthymia - Thought Process Patient's Thought Process: Coherent, Goal Directed Thought Content: No Passive Wish, No Suicidal Planning, No Homicidal Ideation, No Paranoid Ideation - Sensorium Experiencing Hallucinations: No, Sensorium is Clear Type of Hallucinations: Visual: No, Auditory: No, Command: No - Level of Consciousness Level of Consciousness: Alert Orientation: Yes Intact, Yes Orientated to Time, Yes Orientated to Place, Yes Orientated to Person - Impulse Control Impulse Control: Impaired - Insight and Judgement Insight and Judgement: Fair Assessment - Assessment Merits Inpatient Hospitalization: For Discharge Planning Inpatient DSM-V Dx: F19.29 Clinical Impression: Fernie is a 27yo white male with history of polysubstance use disorder who presented to ED via EMS after police were notified for welfare check. Patient' s peer facility practice specialist in [place] phoned him, identified that patient was under the influence and phoned local PD. As police arrived, he was stumbling and incoherent therefore EMS was notified. 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 He has an extensive history of not following through on recommendations and outpatient non-adherence. He states commitment to complete program at [facility] in [place]. Plan - Plan Treatment Plan: Patient endorses desire for inpatient rehab. Patient accepted to [facility] in [place] and given bed date for 02/07/18. patient received Vivitrol injection on 02/02/18. Next injection due 03/02/18. Continued Medication Management: Start Medication Medications: Current Medications Acetaminophen (Tylenol Tab*) 650 mg PO Q6H PRN PRN Reason: pain/fever Last Admin: 01/29/18 09:56 Dose: 650 mg Chlorpromazine HCl (Thorazine Tab*) 50 mg PO Q6H PRN PRN Reason: AGITATION Last Admin: 01/30/18 20:42 Dose: 50 mg Device (Nicotine Mouth Piece*) 1 each INH .USE WITH NICOTROL PRN PRN Reason: CRAVING Last Admin: 01/31/18 10:02 Dose: 1 each Hydroxyzine HCl (Atarax Tab*) 50 mg PO Q4H PRN PRN Reason: ANXIETY Levothyroxine Sodium (Synthroid Tab*) 150 mcg PO 0800 KHRIS Last Admin: 02/06/18 08:13 Dose: 150 mcg Nicotine (Nicotine Inhaler*) 10 mg INH Q2H PRN PRN Reason: CRAVING Last Admin: 02/06/18 14:32 Dose: 10 mg Nicotine Polacrilex (Nicotine Gum*) 2 mg PO Q2H PRN PRN Reason: CRAVING Last Admin: 01/31/18 07:58 Dose: 2 mg - Discharge Plan Discharge Plan: Drug/Alcohol Rehab
[2018-02-07] MEDS: Nicotine Inhaler* 10 MG AMP INH PRN ×4 (00:49→06:53)
--- NOTE | 2018-02-07 01:43 | DS ---
CC: Indiana Torres NP; [facility] * DISCHARGE SUMMARY: DATE OF ADMISSION: 01/28/18 DATE OF DISCHARGE: 02/07/18 ATTENDING PHYSICIAN: Dr. Sung Mckeon * (dictated by Yamini Skinner NP). PRIMARY CARE PROVIDER: None. PRIMARY DIAGNOSES: 1. Intentional Coricidin overdose. 2. Polysubstance abuse. SECONDARY DIAGNOSES: 1. Coricidin dependence. 2. Tobacco abuse. 3. Anxiety. 4. Chronic hepatitis C. 5. Hypertension. 6. Hypothyroidism. 7. History of traumatic brain injury. CONSULTATIONS WHILE IN THE HOSPITAL: SHANT Cunningham with Psychiatry, Dr. Jesus Madrigal with Psychiatry. STUDIES WHILE IN THE HOSPITAL: Chest x-ray on 01/28/18. Radiologist's impression: No evidence of acute disease. DISCHARGE MEDICATIONS: New home medications. 1. Naltrexone 380 mg intramuscularly monthly, due 03/02/18. 2. Nicotine gum 2 mg oral every 2 hours as needed for cravings. 3. Nicotine inhaler 10 mg inhalation every 2 hours as needed for cravings. Continued home medications: Levothyroxine 150 mcg oral daily. HISTORY OF PRESENT ILLNESS: Mr. Angeles is a 27-year-old male with a past medical history significant for polysubstance abuse, depression, psychiatric disorder, hepatitis C, hypothyroidism, multiple admissions for overdoses, who was last discharged on 01/25/18, who presented back to the emergency room after another episode of Coricidin overdose. The patient was initially denying any suicidal ideations and reported that he was just trying to get high. He took 48 tablets of Coricidin, which he brought at [facility]. When his family caseworker from [place] called him, he did not respond. The police were called and he was brought to the emergency room. While in the emergency room, it was noted that the patient was stumbling to the door and police called the ambulance. On arrival, he was noted to have dilated pupils, he was drowsy. Poison Control was contacted and they recommended observation, diazepam for agitation as needed, and a mental health evaluation. Of note, on prior admission, the patient has had seizures, had urine tox positive for PCP. During the patient's hospitalization, he was monitored, he was doing well, he was seen in consultation by Dr. Jesus Madrigal with Psychiatry and SHANT Cunningham with Psychiatry. Initially, the patient stated that he overdosed on Coricidin for recreational purposes, but then he later expressed the desire to "throw himself at traffic". The patient was initially followed by Poison Control, who signed off on his case after a period of observation. 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 The patient has been monitored with one-to-one due to his impulsive behaviors. It was felt that he was unable to be discharge home and needed to be discharged directly to an Inpatient drug rehab. The patient states that he is ready to turn his life around and he is appreciative of all the care and assistance in getting rehab. Social work has worked to get the patient arrangements to go to [facility] in the morning. Mr. Angeles is stable for discharge. Vital signs are as follows: Temperature 98.3, heart rate 96, respiratory rate 16, O2 sat 98% on room air, blood pressure 135/85. DISCHARGE PLAN: Mr. Angeles will be discharged to [facility]. ACTIVITY: As tolerated. DIET: He should be on a regular diet. He should be continued on his levothyroxine and nicotine replacement of gum or inhalers. I recommended staying away from patches as he has a history of eating the nicotine patches. For polysubstance abuse, he should be continued on naltrexone, his dose is due on 03/02/18. The patient should return to emergency room for any chest pain, shortness of breath. This is a summarized report of a complex medical history and hospital stay. For further details, please see the entire medical record. TIME SPENT: Time for this discharge was approximately 50 minutes, greater than half of that was spent with the patient discussing discharge plans and instructions. CONDITION ON DISCHARGE: Stable. Reviewed by JESSICA FAULKNER 02/07/18 1402 [id number]/[facility] #: [id number] SOLO
[2018-02-07] MEDS: Levothyroxine TAB* 150 MCG TAB PO SCH (07:47)
[2018-02-07 07:51] VITALS: BP 130/85
== END 2018-02-07 08:30 | disposition home or self-care (01) | DRG 812 ==
LOC: ED 13:34 → MEDTELE 17:58 → OBSVTOIN 01-30 13:44
PROVIDERS: ADMIT Internal Medicine; ATTEND Internal Medicine
DX: T48.5X2A Poisoning by other anti-common-cold drugs, intentional self-harm, initial encounter (principal); E03.9 Hypothyroidism, unspecified; I10 Essential (primary) hypertension; J30.2 Other seasonal allergic rhinitis; F41.9 Anxiety disorder, unspecified; F43.10 Post-traumatic stress disorder, unspecified; F31.9 Bipolar disorder, unspecified; F17.210 Nicotine dependence, cigarettes, uncomplicated; F60.9 Personality disorder, unspecified; B18.2 Chronic viral hepatitis C; F11.10 Opioid abuse, uncomplicated; R56.9 Unspecified convulsions; F19.29 Other psychoactive substance dependence with unspecified psychoactive substance-induced disorder; Z56.0 Unemployment, unspecified; Y92.009 Unspecified place in unspecified non-institutional (private) residence as the place of occurrence of the external cause; Z87.01 Personal history of pneumonia (recurrent); Z86.19 Personal history of other infectious and parasitic diseases; Z72.89 Other problems related to lifestyle; Z87.820 Personal history of traumatic brain injury
CPT/HCPCS: 36415; 71045; 80048; 80053; 80307; 80320; 80329; 81003; 82550; 83605; 84443; 85025; 93005; 99285; 99406; A9270-GY; G0480; J2060; J2315

== ENCOUNTER 2018-03-09 12:49 | Observation (INO) | payer OTHER ==
[2018-03-09] MEDS ORDERED: LORazepam INJ* 2 MG/ML 1 ML VIAL IV PUSH ONE (14:15)
--- NOTE | 2018-03-09 14:25 | ED ---
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 Pt denies SI or attempt at bedside. Denies taking anything else (ETOH, other drugs). He states he was trying to get a good mahmood. He is feeling disappointed with himself. He is unsure if he fell. Denies neck pain. He was ambulatory at scene. He is staying at the [facility] [place]. - History Of Current Complaint Chief Complaint: EDOverdose Stated Complaint: POSSIBLE OVERDOSE Time Seen by Provider: 03/09/18 14:05 Hx Obtained From: Patient, EMS Onset/Duration of Drug/ETOH Abuse: Hours - CENTRAL SERVICES TECH Ingestion History: Type/Name Of Drug - Coricidin Overdose Characteristics: Oral Severity Initially: Moderate Severity Currently: Moderate Associated Signs And Symptoms: Other: - neg: neck pain, SI/attempt - Allergies/Home Medications Allergies/Adverse Reactions: Allergies Allergy/AdvReac Type Severity Reaction Status Date / Time No Known Allergies Allergy Verified 01/28/18 14:43 Home Medications: Home Medications Levothyroxine TAB* [Synthroid TAB*] 150 mcg PO DAILY 03/09/18 [History Confirmed 03/09/18] RX: Nicotine PATCH 21 MG/24 HR* 21 mg TRANSDERM DAILY 03/09/18 [History Confirmed 03/09/18] hydrOXYzine HCL TAB* [Atarax TAB 50 MG *] 50 mg PO TID PRN 03/09/18 [History Confirmed 03/09/18] PMH/Surg Hx/FS Hx/Imm Hx Previously Healthy: No Endocrine/Hematology History: Reports: Hx Thyroid Disease - Hypothyroidism Denies: Hx Anticoagulant Therapy, Hx Blood Disorders, Hx Blood Transfusions, Hx Bone Marrow Disease, Hx Diabetes, Hx Systemic Lupus Erythematosus, Hx Sickle Cell Disease, Hx Anemia, Hx Unexplained Bleeding, Other Endocrine/Hematological Disorders Cardiovascular History: Reports: Hx Hypertension Denies: Hx Aneurysm, Hx Angina, Hx Angioplasty, Hx Auto Implanted Cardiovert Defib, Hx Cardiac Arrest, Hx Cardiomegaly, Hx Congenital Heart Disease, Hx Congestive Heart Failure, Hx Coronary Artery Disease, Hx Deep Vein Thrombosis, Hx Embolism, Hx Hypercholesterolemia, Hx Hypotension, Hx Pacemaker/ICD, Hx Peripheral Vascular Disease, Hx Rheumatic Fever, Hx Syncope, Hx Valvular Heart Disease, Other Cardiovascular Problems/Disorders Respiratory History: Reports: Hx Pneumonia, Hx Seasonal Allergies Denies: Hx Asthma, Hx Chronic Bronchitis, Hx Chronic Obstructive Pulmonary Disease (COPD), Hx Cystic Fibrosis, Hx Lung Cancer, Hx Pleural Effusion, Hx Pulmonary Edema, Hx Pulmonary Embolism, Hx Sleep Apnea, Other Respiratory Problems/Disorders GI History: Reports: Hx Ulcer Denies: Hx Cirrhosis, Hx Crohn's Disease, Hx Diverticulosis, Hx Gall Bladder Disease, Hx Gastroesophageal Reflux Disease, Hx Gastrointestinal Bleed, Hx Hiatal Hernia, Hx Irritable Bowel, Hx Jaundice, Hx Obstructive Bowel, Hx Ileostomy, Hx Pyloric Stenosis, Other GI Disorders History: Denies: Hx Acute Renal Failure, Hx Benign Prostatic Hyperplasia, Hx Chronic Renal Failure, Hx Dialysis, Hx Kidney Infection, Hx Kidney Stones, Hx Renal Disease, Other Problems/Disorders Musculoskeletal History: Denies: Hx Arthritis, Hx Back Problems, Hx Bursitis, Hx Congenital Bone Abnormalities, Hx Fibromyalgia, Hx Gout, Hx Orthopedic Injury, Hx Osteoporosis, Hx Scoliosis, Hx Tendonitis, Other Musculoskeletal History Sensory History: Reports: Hx Contacts or Glasses Denies: Hx Cataracts, Hx Eye Injury, Hx Eye Prosthesis, Hx Glaucoma, Hx Legally Blind, Hx Macular Degeneration, Hx Vision Problem, Hx Deafness, Hx Hearing Aid, Other Sensory Impairments Opthamlomology History: Reports: Hx Contacts or Glasses Denies: Hx Cataracts, Hx Eye Injury, Hx Eye Prosthesis, Hx Glaucoma, Hx Legally Blind, Hx Macular Degeneration, Hx Vision Problem, Other Sensory Impairments Neurological History: Reports: Hx Headaches, Hx Seizures Denies: Hx Dementia, Hx Developmental Delay, Hx Migraine, Hx Nerve Disease, Hx Spinal Cord Injury, Hx Transient Ischemic Attacks (TIA), Other Neuro Impairments/Disorders Psychiatric History: Reports: Hx Anxiety, Hx Depression, Hx Post Traumatic Stress Disorder, Hx Inpatient Treatment, Hx Community Mental Health Tx, Hx Bipolar Disorder, Hx of Violent Episodes Against Others, Hx Substance Abuse, Other Psychiatric Issues/Disorders Denies: Hx Attention Deficit Hyperactivity Disorder, Hx Eating Disorder, Hx Panic Disorder, Hx Schizophrenia, Hx Suicide Attempt - Surgical History Surgery Procedure, Year, and Place: none - Immunization History Date of Tetanus Vaccine: Unknown Date of Influenza Vaccine: None Infectious Disease History: Unable to Obtain/Confirm Infectious Disease History: Reports: Hx Hepatitis - Hep C Denies: Hx Clostridium Difficile, Hx Human Immunodeficiency Virus (HIV), Hx of Known/Suspected MRSA, Hx Shingles, Hx Tuberculosis, Hx Known/Suspected VRE, Hx Known/Suspected VRSA, History Other Infectious Disease, Traveled Outside the [place] in Last 30 Days - Family History Known Family History: Positive: Other - cancer Negative: Renal Disease - Social History Occupation: Unemployed Lives: Alone Alcohol Use: Daily Alcohol Amount: last drink 1200 today Hx Substance Use: Yes Substance Use Type: 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 Substance Use Comment - Amount & Last Used: 01/28/18 Coriciden overdose Hx Tobacco Use: Yes Smoking Status (MU): Former Smoker Type: Cigarettes Have You Smoked in the Last Year: Yes Review of Systems Positive: Fever. Negative: Chills Negative: Erythema Negative: Sore Throat Negative: Chest Pain Negative: Shortness Of Breath, Cough Negative: Abdominal Pain, Vomiting, Nausea Negative: dysuria, hematuria Negative: Arthralgia, Myalgia, Edema Negative: Rash Neurological: Other - neg: dizziness Psychological: Other - pos: denies SI and attempt All Other Systems Reviewed And Are Negative: Yes Physical Exam - Summary Physical Exam Summary: Constitutional: Well-developed, Well-nourished, Alert. (-) Distressed Skin:Flush and hot to touch HENT: Normocephalic; Atraumatic Eyes: Nystagmus Neck: Musculoskeletal ROM normal neck. (-) JVD, (-) Stridor, (-) Tracheal deviation Cardio: Rhythm regular, rate normal, Heart sounds normal; Intact distal pulses; The pedal pulses are 2+ and symmetric. Radial pulses are 2+ and symmetric. (-) Murmur Pulmonary/Chest wall: Effort normal. (-) Respiratory distress, (-) Wheezes, (-) Rales Abd: Soft, (-) epigastric tenderness, (-) Distension, (-) Guarding, (-) Rebound Musculoskeletal: (-) Edema Lymph: (-) Cervical adenopathy Neuro: Alert, Oriented x3 Psych: Pt took anticolinergic Triage Information Reviewed: Yes Vital Signs On Initial Exam: Initial Vitals Temp Pulse Resp BP Pulse Ox 100.3 F 114 18 131/87 94 03/09/18 12:58 03/09/18 12:58 03/09/18 12:58 03/09/18 12:58 03/09/18 12:58 Vital Signs Reviewed: Yes Diagnostics - Vital Signs Vital Signs Temp Pulse Resp BP Pulse Ox 03/09/18 14:00 113 12 96 03/09/18 13:53 115 14 135/95 95 03/09/18 13:23 108 15 136/95 95 03/09/18 13:12 125 94 03/09/18 12:58 100.3 F 114 18 131/87 94 - Laboratory Result Diagrams: 03/09/18 14:33 03/09/18 14:33 Lab Statement: Any lab studies that have been ordered have been reviewed, and results considered in the medical decision making process. - EKG 1655 Cardiac Rate: NL - 98 bpm EKG Rhythm: Sinus Rhythm EKG Interpretation: no STEMI Course/Dx - Physician Notifications Discussed Care Of Patient With: Maxwell Ruiz - Hospitalist Time Discussed With Above Provider: 16:48 Instructed by Provider To: Admit As Inpatient Discharge - Sign-Out/Discharge Documenting (check all that apply): Patient Departure - ADM - Discharge Plan Disposition: ADMITTED TO [facility] - Attestation Statements Document Initiated by Scribe: Yes Documenting Scribe: Randa Bell Provider For Whom Scribe is Documenting (Include Credential): Dr. Javed Felipe MD Scribe Attestation: I, Randa Bell, scribed for Dr. Javed Felipe MD on 03/09/18 at 1915.
[2018-03-09 14:52] LABS: ABS Basophils 0.1 10^3/ul (0-0.2); ABS Eosinophils 0 10^3/ul (0-0.6); ABS Lymphocytes 1.5 10^3/ul (1.0-4.8); ABS Monocytes 0.8 10^3/ul (0-0.8); ABS Neutrophils 11.4 10^3/ul (1.5-7.7); ABS Nucleated RBC 0 10^3/ul; Eosinophil % 0.3 % (0-6); Hematocrit 44 % (42-52); Hemoglobin 14.7 g/dl (14.0-18.0); Lymphocyte % 10.8 % (25-47); Mean Corpuscular HGB Conc 34 g/dl (31-36); Mean Corpuscular Hemoglobin 29 pg (27-31); Mean Corpuscular Volume 85 fL (80-94); Mean Platelet Volume 8.2 um3 (7.4-10.4); Nucleated Red Blood Cells % 0; Platelet Count 241 10^3/ul (150-450); Red Blood Count 5.12 10^6/ul (4.00-5.40); Red Cell Distribution Width 13 % (10.5-15); White Blood Count 13.8 10^3/ul (3.5-10.8)
[2018-03-09 14:52] LABS: Urine Appearance Clear; Urine Blood Negative (Negative); Urine Color Straw; Urine Ketones Negative (Negative); Urine Protein Negative (Negative); Urine Specific Gravity 1.001 (1.010-1.030); Urine Urobilinogen Negative (Negative)
[2018-03-09] MEDS ORDERED: NS 0.9% 1000 ML* 1,000 ML IV ONE (15:01)
[2018-03-09] MEDS ORDERED: Albuterol 2.5 MG/3 ML NEB.SOL* (0.083%) INH PRN (17:00)
[2018-03-09] MEDS ORDERED: Ondansetron INJ* 2 MG/ML VIAL IV PRN (17:00)
[2018-03-09] MEDS ORDERED: NS 0.9% 1000 ML* 1,000 ML IV SCH (17:00)
[2018-03-09] MEDS ORDERED: Acetaminophen TAB* 325 MG PO PRN (17:00)
[2018-03-09] MEDS ORDERED: Al Hydrox/Mg Hydrox/Simet LIQ* 30 ML UDC PO PRN (17:00)
[2018-03-09] MEDS ORDERED: LORazepam INJ* 2 MG/ML 1 ML VIAL IV PUSH PRN (17:06)
[2018-03-09] MEDS ORDERED: hydrOXYzine HCL TAB* 50 MG PO PRN (17:21)
[2018-03-09] MEDS: Nicotine PATCH 21 MG/24 HR* PATCH TRANSDERM SCH (18:45)
[2018-03-09] MEDS ORDERED: Nicotine Patch Removal NOTE PATCH OFF SCH (21:00)
--- NOTE | 2018-03-09 21:53 | HP ---
AMENDED REPORT NOW INCLUDES COSIGNER DESIGNATION - ESIGNED BEFORE ADJUSTMENT CC: Behavioral Health Unit * ADMISSION HISTORY AND PHYSICAL: DATE OF ADMISSION: 03/09/18 PATIENT OF ADMITTING HOSPITALIST: Dr. Bruce Palacio.* (DICTATED BY GUILLERMINA LOREDO) PRIMARY CARE PROVIDER: The patient does not have a primary care provider. CHIEF COMPLAINT: Drug overdose. HISTORY OF PRESENT ILLNESS: Mr. Angeles is a 28-year-old gentleman with past medical history significant for polysubstance abuse, depression, psychiatric disorder with suicidal ideation, also he has a history of hepatitis C, hypothyroidism with multiple admission of overdose most recently back on . The patient was discharged from the hospital towards the end of January and was transferred to a rehab facility known as [facility] in [facility]. He tells me that he was "graduated" from rehab about 3 days ago and returned to [facility]. He did not return to live with his mother and does not have any current residency at this time, so he lived in the streets. He was brought to the emergency room earlier today with suicidal ideation after he took 48 tablets of Coricidin cough medicine that he bought from a local pharmacy. The patient notes that he took all these tablets earlier this morning and had some orange juice with it. He denied any abdominal pain, nausea, vomiting, chest pain, palpitation, dizziness, headache or syncope. He was brought by the EMS staff and upon arrival he was a little drowsy; however, he was alert upon questioning and oriented to time and place and person as well. The patient had the exact similar presentation about 5 weeks ago for which Poison Control was contacted back then and recommended to observe the patient, give him benzodiazepines as needed for agitation, and to obtain a mental health evaluation again. The patient denied having any seizures on that admission or in the last month. He had laboratory workup in the emergency room that revealed normal CBC, normal chemistry, and his urine toxicology was positive for phencyclidine. PAST MEDICAL HISTORY: As mentioned above, significant for: 1. Multiple episodes of polysubstance abuse and overdose. 2. Coricidin dependence. 3. Alcohol use disorder. 4. Tobacco use disorder. 5. Antisocial personality traits. 6. Hepatitis C. 7. Hypothyroidism. PAST SURGICAL HISTORY: None. CURRENT MEDICATIONS: His medications at home include: 1. Atarax 50 mg p.o. t.i.d. as needed for anxiety. 2. Synthroid 150 mcg p.o. daily. 3. Nicotine patch 21 mg transdermal daily and remove patch after 12 hours. ALLERGIES: He has no known drug allergies. FAMILY HISTORY: Noncontributory. SOCIAL HISTORY: The patient is homeless. He is a former smoker, who also abused other substance including Coricidin. His surrogate decision maker is his aunt, Margaret Ortiz, whose phone number [phone]. He wishes to be a full code. REVIEW OF SYSTEMS: See HPI. Otherwise, 12-point review of systems were examined and they were essentially negative. PHYSICAL EXAMINATION GENERAL: He is a healthy-appearing, young male, in no acute distress or discomfort at the time of admission. VITAL SIGNS: Reveal a temperature of 98.7, pulse of 110, blood pressure 141/91 , respirations of 13 with O2 sats of 95% on room air. HEENT: Head is normocephalic, atraumatic. Sclerae anicteric. PERRLA. EOMs intact. Oropharynx is pink and moist. NECK: Supple. Trachea midline. No cervical adenopathy or thyromegaly. LUNGS: Clear to auscultation bilaterally. HEART: Regular rate and rhythm. Normal S1 and S2 without rubs, murmurs or gallops. BACK: With normal curvature, no CVA tenderness. ABDOMEN: Soft, nontender, and nondistended. No hernias, masses or hepatosplenomegaly. Bowel sounds were normoactive in all quadrant. EXTREMITIES: Without cyanosis, clubbing or edema. RECTAL: Exam deferred at this time. NEUROLOGIC: He is awake, alert, and oriented x3. The patient is cooperative and mood is appropriate. His tongue is midline. Handgrip is equal bilaterally and sensation is intact throughout. DIAGNOSTIC STUDIES/LAB DATA: Laboratory workup: CBC with white count of 13, 000, hemoglobin 14.7, hematocrit 44, and platelets 241. Chemistry panel essentially within normal limits, sodium 140, potassium 3.6, chloride 110, CO2 of 22, BUN of 10, and creatinine of 1. LFTs, glucose, TSH all within normal limits. Urine toxicology positive for phencyclidine and negative for salicylates and acetaminophen. IMPRESSION: A 28-year-old male with past medical history of polysubstance abuse including Coricidin dependence, alcohol use disorder as well as tobacco use, and antisocial personality as well as psychiatric disorder, who presented to the emergency room with another episode of drug overdose. The patient denies any suicidal or homicidal ideation at the time of admission despite taken 48 pills of Coricidin earlier today. The patient will be admitted for observation for the following: ASSESSMENT AND PLAN: 1. Substance abuse and drug overdose. The patient will be observed at the telemetry unit. Based on prior experience with Poison Control, who recommended observe him at telemetry and give him IV fluid as well as benzodiazepines as needed for symptomatic management of anxiety or agitation. I will monitor his lactic acid tonight and repeat it again tomorrow morning and hydrate him and put him back on regular diet. I have called and requested a mental health evaluation to be performed this weekend and he will be seen tomorrow. For the time being, he will continue one-on-one observation and monitor. 2. Hypothyroidism. I will continue his levothyroxine. 3. DVT prophylaxis. The patient is a low risk and will have SCDs while in bed and also will ambulate as tolerated. 4. Code status. He is a full code. TIME SPENT: Approximately 50 minutes were spent admitting this patient for which greater than 50% were taking history and performing physical exam. I went on and discussed the case with my attending, who agreed to plan of care and will follow him up accordingly. GUILLERMINA LOREDO [id number]/CPS #: [id number] SOLO
[2018-03-10] MEDS ORDERED: Levothyroxine TAB* 150 MCG TAB PO SCH (06:00)
[2018-03-10 07:00] LABS: ABS Basophils 0 10^3/ul (0-0.2); ABS Eosinophils 0.3 10^3/ul (0-0.6); ABS Lymphocytes 1.9 10^3/ul (1.0-4.8); ABS Monocytes 0.7 10^3/ul (0-0.8); ABS Neutrophils 3.4 10^3/ul (1.5-7.7); ABS Nucleated RBC 0 10^3/ul; Eosinophil % 4.3 % (0-6); Hematocrit 39 % (42-52); Hemoglobin 13.2 g/dl (14.0-18.0); Lymphocyte % 30.3 % (25-47); Mean Corpuscular HGB Conc 34 g/dl (31-36); Mean Corpuscular Hemoglobin 30 pg (27-31); Mean Corpuscular Volume 87 fL (80-94); Mean Platelet Volume 8.6 um3 (7.4-10.4); Nucleated Red Blood Cells % 0; Platelet Count 186 10^3/ul (150-450); Red Blood Count 4.47 10^6/ul (4.00-5.40); Red Cell Distribution Width 13 % (10.5-15); White Blood Count 6.3 10^3/ul (3.5-10.8)
[2018-03-10 07:06] LABS: EGFR Non-African American 94.4 (>60)
[2018-03-10] MEDS: Nicotine PATCH 21 MG/24 HR* PATCH TRANSDERM SCH (09:00)
[2018-03-10 10:06] VITALS: BP 119/60
--- NOTE | 2018-03-10 12:42 | PN ---
Subjective Date of Service: 03/10/18 Interval History: Patient NAD this morning. Reports drowsiness, but is easily arousable and alert and oriented to person, place, and location. Denies pain, shortness of breath, dizziness, palpitations, N/V/D. Denies suicidal ideation. Objective Active Medications: Scheduled Levothyroxine Sodium (Synthroid Tab*) 150 mcg PO DAILY@0600 [facility] Last Admin: 03/10/18 06:42 Dose: 150 mcg Nicotine (Nicotine Patch 21 Mg/24 Hr*) 1 patch TRANSDERM DAILY [facility] Last Admin: 03/10/18 09:00 Dose: 1 patch Pharmacy Profile Note (Nicotine Patch Removal Note*) 1 note PATCH OFF 2100 [facility] Last Admin: 03/09/18 21:58 Dose: Not Given PRN Acetaminophen (Tylenol Tab*) 975 mg PO Q4H PRN PRN Reason: FEVER/PAIN Al Hydrox/Mg Hydrox/Simethicone (Maalox Plus*) 30 ml PO Q6H PRN PRN Reason: INDIGESTION Albuterol (Ventolin 2.5 Mg/3 Ml Neb.Carin*) 2.5 mg INH RT.A1UD-MOHFO AWAKE PRN PRN Reason: sob/wheezing Hydroxyzine HCl (Atarax Tab*) 50 mg PO TID PRN PRN Reason: ANXIETY Lorazepam (Ativan Inj*) 1 mg IV PUSH Q6H PRN PRN Reason: ANXIETY Last Admin: 03/09/18 18:45 Dose: 1 mg Ondansetron HCl (Zofran Inj*) 4 mg IV Q4H PRN PRN Reason: NAUSEA/VOMITING Vital Signs - 8 hr 03/10/18 09:12 Temperature 97.5 F Pulse Rate 69 Respiratory 16 Rate Blood Pressure 119/60 (mmHg) O2 Sat by Pulse 96 Oximetry Oxygen Devices in Use Now: None Eyes: No Scleral Icterus, PERRLA Ears/Nose/Mouth/Throat: NL Teeth, Lips, Gums, Mucous Membranes Moist Neck: NL Appearance and Movements; NL JVP Respiratory: Symmetrical Chest Expansion and Respiratory Effort Cardiovascular: NL Sounds; No Murmurs; No JVD, RRR, No Edema Abdominal: NL Sounds; No Tenderness; No Distention Extremities: No Edema, No Clubbing, Cyanosis Skin: No Rash or Ulcers Neurological: Alert and Oriented x 3, NL Muscle Strength and Tone Result Diagrams: 03/10/18 06:26 03/10/18 06:26 Assess/Plan/Problems-Billing Assessment: ET is a 28 year old male with a H polysubstance abuse and hypothyroidism admitted for management of Coricidin overdose - Patient Problems (1) Polysubstance abuse Current Visit: No Status: Acute Priority: High Onset Date: 07/31/15 Code (s): F19.10 - OTHER PSYCHOACTIVE SUBSTANCE ABUSE, UNCOMPLICATED SNOMED Code(s) : 019548338 Comment: - Overdosed on Coricidin for recreational purposes. Denies suicidal ideation. Has history for being admitted for this previously, most recently in January 2018 , and recently completed a stay at [facility]. - Poison control was contacted on previous admission for the same and they advised tele monitoring for QT prolongation, IV fluid, and PRN treatment of anxiety/agitation. Received 2L NaCl and ativan last night, but has been calm today and has not required any additional medication. 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
== END 2018-03-10 16:05 | disposition home or self-care (01) ==
LOC: ED 12:49 → MEDTELE 17:22 → MED 03-10 06:33
PROVIDERS: ADMIT Internal Medicine; ATTEND Internal Medicine
DX: T50.992A Poisoning by other drugs, medicaments and biological substances, intentional self-harm, initial encounter (principal); X58.XXXA Exposure to other specified factors, initial encounter; Y92.9 Unspecified place or not applicable; F10.20 Alcohol dependence, uncomplicated; F19.10 Other psychoactive substance abuse, uncomplicated; E03.9 Hypothyroidism, unspecified; F60.2 Antisocial personality disorder; Z59.0 Homelessness; Z87.891 Personal history of nicotine dependence; I10 Essential (primary) hypertension
CPT/HCPCS: 36415; 80048; 80053; 80307; 80320; 80329; 81003; 83605; 84443; 85025; 93005; 96361; 96374; 96376; 99284; A9270-GY; G0378; G0480; J2060

== ENCOUNTER 2018-03-10 19:56 | Inpatient (IN) | payer OTHER ==
[2018-03-10] MEDS ORDERED: LORazepam INJ* 2 MG/ML 1 ML VIAL ONE (20:00)
[2018-03-10] MEDS ORDERED: LORazepam INJ* 2 MG/ML 1 ML VIAL IV PUSH ONE (20:05)
[2018-03-10] MEDS ORDERED: Piperacillin/Tazobac ADVAN(*) 3.375 GM in NS 0.9% 100 ML* 100 ML IVPB ONE (20:10)
[2018-03-10] MEDS: NS 0.9% 1000 ML*IV.FLUID IV ONE ×3 (20:16→20:19)
--- NOTE | 2018-03-10 20:16 | ED ---
Altered Mental Status - HPI Summary HPI Summary: 28 year old M [facility] complains of altered mental status since this afternoon. Symptoms aggravated by nothing. Symptoms alleviated by nothing. Patient has a hx of Coricidin abuse. Patient was seen in ED yesterday for Coricidin overdose. He was admitted to [facility] yesterday and discharged this afternoon. Patient presented today to ED and had a witnessed seizure for about 15 seconds in triage room. Patient is now in postictal state. LEVEL 5 CAVEAT: HPI is limited because patient is in postictal state. - History Of Current Complaint Chief Complaint: EDAltMentalStatus Stated Complaint: POSSIBLE OVER DOSE Time Seen by Provider: 03/10/18 20:05 Onset/Duration: Still Present Aggravating Factor(s): Nothing Alleviating Factor(s): Nothing - Allergies/Home Medications Allergies/Adverse Reactions: Allergies Allergy/AdvReac Type Severity Reaction Status Date / Time No Known Allergies Allergy Verified 01/28/18 14:43 PMH/Surg Hx/FS Hx/Imm Hx Previously Healthy: No Endocrine/Hematology History: Reports: Hx Thyroid Disease - Hypothyroidism Denies: Hx Anticoagulant Therapy, Hx Blood Disorders, Hx Blood Transfusions, Hx Bone Marrow Disease, Hx Diabetes, Hx Systemic Lupus Erythematosus, Hx Sickle Cell Disease, Hx Anemia, Hx Unexplained Bleeding, Other Endocrine/Hematological Disorders Cardiovascular History: Reports: Hx Hypertension Denies: Hx Aneurysm, Hx Angina, Hx Angioplasty, Hx Auto Implanted Cardiovert Defib, Hx Cardiac Arrest, Hx Cardiomegaly, Hx Congenital Heart Disease, Hx Congestive Heart Failure, Hx Coronary Artery Disease, Hx Deep Vein Thrombosis, Hx Embolism, Hx Hypercholesterolemia, Hx Hypotension, Hx Pacemaker/ICD, Hx Peripheral Vascular Disease, Hx Rheumatic Fever, Hx Syncope, Hx Valvular Heart Disease, Other Cardiovascular Problems/Disorders Respiratory History: Reports: Hx Pneumonia, Hx Seasonal Allergies Denies: Hx Asthma, Hx Chronic Bronchitis, Hx Chronic Obstructive Pulmonary Disease (COPD), Hx Cystic Fibrosis, Hx Lung Cancer, Hx Pleural Effusion, Hx Pulmonary Edema, Hx Pulmonary Embolism, Hx Sleep Apnea, Other Respiratory Problems/Disorders GI History: Reports: Hx Ulcer Denies: Hx Cirrhosis, Hx Crohn's Disease, Hx Diverticulosis, Hx Gall Bladder Disease, Hx Gastroesophageal Reflux Disease, Hx Gastrointestinal Bleed, Hx Hiatal Hernia, Hx Irritable Bowel, Hx Jaundice, Hx Obstructive Bowel, Hx Ileostomy, Hx Pyloric Stenosis, Other GI Disorders History: Denies: Hx Acute Renal Failure, Hx Benign Prostatic Hyperplasia, Hx Chronic Renal Failure, Hx Dialysis, Hx Kidney Infection, Hx Kidney Stones, Hx Renal Disease, Other Problems/Disorders Musculoskeletal History: Denies: Hx Arthritis, Hx Back Problems, Hx Bursitis, Hx Congenital Bone Abnormalities, Hx Fibromyalgia, Hx Gout, Hx Orthopedic Injury, Hx Osteoporosis, Hx Scoliosis, Hx Tendonitis, Other Musculoskeletal History Sensory History: Reports: Hx Contacts or Glasses Denies: Hx Cataracts, Hx Eye Injury, Hx Eye Prosthesis, Hx Glaucoma, Hx Legally Blind, Hx Macular Degeneration, Hx Vision Problem, Hx Deafness, Hx Hearing Aid, Other Sensory Impairments Opthamlomology History: Reports: Hx Contacts or Glasses Denies: Hx Cataracts, Hx Eye Injury, Hx Eye Prosthesis, Hx Glaucoma, Hx Legally Blind, Hx Macular Degeneration, Hx Vision Problem, Other Sensory Impairments Neurological History: Reports: Hx Headaches, Hx Seizures Denies: Hx Dementia, Hx Developmental Delay, Hx Migraine, Hx Nerve Disease, Hx Spinal Cord Injury, Hx Transient Ischemic Attacks (TIA), Other Neuro Impairments/Disorders Psychiatric History: Reports: Hx Anxiety, Hx Depression, Hx Post Traumatic Stress Disorder, Hx Inpatient Treatment, Hx Community Mental Health Tx, Hx Bipolar Disorder, Hx of Violent Episodes Against Others, Hx Substance Abuse, Other Psychiatric Issues/Disorders Denies: Hx Attention Deficit Hyperactivity Disorder, Hx Eating Disorder, Hx Panic Disorder, Hx Schizophrenia, Hx Suicide Attempt - Surgical History Surgery Procedure, Year, and Place: none - Immunization History Date of Tetanus Vaccine: Unknown Date of Influenza Vaccine: None Infectious Disease History: Reports: Hx Hepatitis - Hep C Denies: Hx Clostridium Difficile, Hx Human Immunodeficiency Virus (HIV), Hx of Known/Suspected MRSA, Hx Shingles, Hx Tuberculosis, Hx Known/Suspected VRE, Hx Known/Suspected VRSA, History Other Infectious Disease, Traveled Outside the [place] in Last 30 Days - Family History Known Family History: Positive: Other - cancer Negative: Renal Disease - Social History Alcohol Use: None Alcohol Amount: last drink 1200 today Hx Substance Use: Yes Substance Use Type: 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 Substance Use Comment - Amount & Last Used: 01/28/18 Coriciden overdose Hx Tobacco Use: Yes Smoking Status (MU): Former Smoker Type: Cigarettes Have You Smoked in the Last Year: Yes Review of Systems - ROS Summary Review of Systems Summary: LEVEL 5 CAVEAT: ROS is limited because patient is in postictal state Neurological: Other - patient is in postictal state All Other Systems Reviewed And Are Negative: No Physical Exam - Summary Physical Exam Summary: VITAL SIGNS: Reviewed. GENERAL: Patient is a well-developed and nourished male who is lying comfortable in the stretcher. Patient is not in any acute respiratory distress. HEAD AND FACE: No signs of trauma. No ecchymosis, hematomas or skull depressions. No sinus tenderness. EYES: Pupils are dilated EARS: Hearing grossly intact. Ear canals and tympanic membranes are within normal limits. MOUTH: Oropharynx within normal limits. NECK: Supple, trachea is midline, no adenopathy, no JVD, no carotid bruit, no c- spine tenderness, neck with full ROM. CHEST: Symmetric, no tenderness at palpation LUNGS: Clear to auscultation bilaterally. No wheezing or crackles. CVS: He is tachycardic ABDOMEN: Abdomen is soft EXTREMITIES: FROM in all major joints, no edema, no cyanosis or clubbing. NEURO: Patient is unresponsive at this time SKIN: Dry and warm Triage Information Reviewed: Yes Vital Signs On Initial Exam: Initial Vitals Resp 40 03/10/18 20:05 Vital Signs Reviewed: Yes Diagnostics - Vital Signs Vital Signs Temp Pulse Resp BP Pulse Ox 03/10/18 20:06 101.9 F 140 40 158/86 95 03/10/18 20:05 40 - Laboratory Result Diagrams: 03/11/18 05:30 03/11/18 05:30 Lab Statement: Any lab studies that have been ordered have been reviewed, and results considered in the medical decision making process. - EKG 2013 Cardiac Rate: Tachycardia - 138 BPM EKG Rhythm: Sinus Tachycardia EKG Interpretation: No ST elevations. QTC and MD are normal. Altered Mental Statu Course/Dx - Course Assessment/Plan: This patient is a 28-year-old male with past medical history significant for suicidal ideations, polysubstance abuse, hepatitis C, major depressive disorder, Coricidin dependence, obese, seizures, hypertension, vitiligo, and malingering. He presents to the emergency department with a chief complaint of "acting strange". When he was in the triage room the patient had a seizure episode lasting for approximately 15 seconds. The seizure was witnessed by the triage nurse. The patient was discharged from the hospital today approximately 4 PM after he was admitted last night for a possible Coricidin overdose. Patient will was upset today and discharged home. Physical exam: The patient is an obese male who is in a postictal state. The pupils are dilated. The patient is tachycardic with heart rate to 140 bpm O2 sat is 95% in 2 days of nasal cannula and his blood pressure is 158/86 And he had a temperature of 101.9, and RR 40. Initially the patient was placed on a bus monitor, supplemental oxygen was administered, 2 IV access was obtained and he was given 1 mg of Ativan. EKG shows a sinus tachycardia with no ST elevations. Vital signs throughout for sepsis alert. Therefore the patient was started with THE sepsis protocol. Blood cultures were sent, the patient is given IV fluids 36 per KG, the patient was given Zosyn as a broader spectrum antibiotic. The patient also was given Tylenol per rectum. Blood test results shows a wbc's of 16.9, hemoglobin 15 hematocrit 48 and platelets 302. Sodium is 147, potassium at 2.8, carbon dioxide 13 creatinine 1.21 glucose 124 and CRP of 9.7. ABG shows a pH of 7.31, PCO2 36, PO2 100, HCO3 of 19.1 and O2 sat are 97.8. At this point the patient is still in a postictal state. However the patient is a little more responsive. He continues to be tachycardic at 114 bpm. The patient is more stable. I discuss my physical exam and findings with and Dr. Boswell from the hospitalist services who accepted the patient for admission. - Diagnoses Provider Diagnoses: Overdose, Seizure, Hypokalemia - Provider Notifications Discussed Care Of Patient With: Adolph Boswell Time Discussed With Above Provider: 21:34 Instructed by Provider To: Other - Dr. Boswell, hospitalist, agrees to accept patient. - Critical Care Time Critical Care Time: 75-104 min Discharge - Sign-Out/Discharge Documenting (check all that apply): Patient Departure - Admit - Discharge Plan Condition: Fair Disposition: ADMITTED TO [facility] - Billing Disposition and Condition Condition: FAIR Disposition: Admitted to [facility] - Attestation Statements Document Initiated by Scribe: Yes Documenting Scribe: Deb Duncan Provider For Whom Scribe is Documenting (Include Credential): Gorge Fenton MD Scribe Attestation: I, Deb Duncan, scribed for Gorge Fenton MD on 03/11/18 at 1137. Scribe Documentation Reviewed: Yes Provider Attestation: The documentation as recorded by the scribe, Deb Duncan accurately reflects the service I personally performed and the decisions made by me, Gorge Fenton MD
[2018-03-10] MEDS ORDERED: Acetaminophen SUPP* 650 MG SUPP PR ONE (20:21)
[2018-03-10 20:53] LABS: Hematocrit 48 % (42-52); Mean Corpuscular HGB Conc 31 g/dl (31-36); Mean Corpuscular Hemoglobin 29 pg (27-31); Mean Corpuscular Volume 91 fL (80-94); Mean Platelet Volume 8.8 um3 (7.4-10.4); Platelet Count 302 10^3/ul (150-450); Red Blood Count 5.24 10^6/ul (4.00-5.40); Red Cell Distribution Width 14 % (10.5-15); White Blood Count 16.9 10^3/ul (3.5-10.8)
[2018-03-10 21:00] LABS: INR 1.14 (0.77-1.02)
[2018-03-10 21:10] LABS: EGFR Non-African American 71.4 (>60)
[2018-03-10 21:32] LABS: Urine Appearance Cloudy; Urine Blood Negative (Negative); Urine Color Yellow; Urine Ketones Negative (Negative); Urine Protein Negative (Negative); Urine Specific Gravity 1.014 (1.010-1.030); Urine Urobilinogen Negative (Negative)
[2018-03-10] MEDS ORDERED: KCL 10 MEQ/50 ML IVPREMIX* 10 MEQ/50 ML BAG ONE (21:36)
[2018-03-10 21:40] LABS: ABS Basophils 0.1 10^3/ul (0-0.2); ABS Eosinophils 0.4 10^3/ul (0-0.6); ABS Lymphocytes 6.5 10^3/ul (1.0-4.8); ABS Monocytes 1.8 10^3/ul (0-0.8); ABS Neutrophils 8.2 10^3/ul (1.5-7.7); ABS Nucleated RBC 0 10^3/ul; Eosinophil % 2.6 % (0-6); Lymphocyte % 38.3 % (25-47); Nucleated Red Blood Cells % 0.1
[2018-03-10] MEDS ORDERED: KCL 10 MEQ/50 ML IVPREMIX* 10 MEQ/50 ML BAG IV SCH (22:00)
--- NOTE | 2018-03-10 22:06 | HP ---
H&P (Free Text) History and Physical: PCP: none Date/Time: 03/10/2018 2200 CC: altered mental status HPI: Mr Angeles is a 28YO male well known to the hospitalist service due to recurrent coricidin abuse. He was observed 03/09 - 03/10/2018 for an overdose and discharged today ~1600. Subsequently an ED process mold technician was on break walking the grounds and found him in the garden area behaving bizarrely at ~2000 and therefore contacted security. He was then witnessed to have a brief generalized seizure in triage and required supplemental oxygenation to maintain an saO2 in the mid-90s. He is currently lethargic and unable to provide a reliable history. He does admit to taking more coricidin and drinking beer, but cannot explain how he left the hospital grounds or returned. He does meet SIRS criteria , but no infectious source is identified. His baseline heart rhythm is tachycardia and he was febrile to 38.8C. His H&P from 03/09/2018 is reviewed and copied below. PMedHx, PSurgHx, SocHx, &FamHx: currently unobtainable/unconfirmable Ambulatory Orders Levothyroxine TAB* [Synthroid 150 MCG TAB*] 150 mcg PO DAILY 03/09/18 Nicotine PATCH 21 MG/24 HR* 21 mg TRANSDERM DAILY 03/09/18 hydrOXYzine HCL TAB* [Atarax TAB 50 MG *] 50 mg PO TID PRN 03/09/18 Allergies No Known Allergies Allergy (Verified 01/28/18 14:43) ROS: as above, otherwise reviewed and all were negative vitals: Vital Signs Temp 37.7 C 03/10/18 21:00 Pulse 120 03/10/18 21:03 Resp 22 03/10/18 21:03 BP 137/87 03/10/18 21:03 Pulse Ox 98 03/10/18 21:03 Intake & Output 03/09/18 03/10/18 03/10/18 23:59 11:59 23:59 Intake Total 1100 Output Total 900 Balance 200 Weight 120.202 kg Intake: IV Fluids 1100 Output: James 900 Constitutional: NAD, normally developed, obese white male HEENM: atraumatic; sclera/conjunctiva: anicteric/clear; hearing: unable to accurately assess; oropharynx: clear, mucosa dry Neck: soft tissue: non-tender; thyroid: normal Pulmonary: clear to auscultation bilaterally, good aeration, no accessory muscle use CV: TR/RR, normal S1S2, no carotid bruit, no jugular venous distention, 2+ B DP/ PT, no edema Abdominal: soft, non-distended, non-tender, no rebound/guarding/rigidity, normoactive bowel sounds, no hepatosplenomegaly or masses, no costovertebral angle tenderness Musculoskeletal: general: grossly intact, non-tender Integumental: normal appearance and texture of exposed skin Psychiatric orientation: lethargic but rousable, oriented to person & place only affect: somnolent mood: acquiescent eye contact: poor content: unreliable responses: mildly slowed insight: poor Testing: Lab Results 03/10/18 03/10/18 03/10/18 Range/Units 20:37 20:37 20:37 WBC 16.9 H (3.5-10.8) 10^3/ul RBC 5.24 (4.00-5.40) 10^6/ul Hgb 15.0 (14.0-18.0) g/dl Hct 48 (42-52) % MCV 91 (80-94) fL MCH 29 (27-31) pg MCHC 31 (31-36) g/dl RDW 14 (10.5-15) % Plt Count 302 (150-450) 10^3/ul MPV 8.8 (7.4-10.4) um3 Neut % (Auto) 48.1 (38-83) % Lymph % (Auto) 38.3 (25-47) % Loving % (Auto) 10.5 H (0-7) % Eos % (Auto) 2.6 (0-6) % Baso % (Auto) 0.5 (0-2) % Absolute Neuts (auto) 8.2 H (1.5-7.7) 10^3/ul Absolute Lymphs (auto) 6.5 H (1.0-4.8) 10^3/ul Absolute Monos (auto) 1.8 H (0-0.8) 10^3/ul Absolute Eos (auto) 0.4 (0-0.6) 10^3/ul Absolute Basos (auto) 0.1 (0-0.2) 10^3/ul Absolute Nucleated RBC 0 10^3/ul Nucleated RBC % 0.1 ESR 11 (0-14) mm/Hr Hem Pathologist Commnt Pending INR (Anticoag Therapy) 1.14 H (0.77-1.02) APTT 29.0 (26.0-36.3) seconds Fibrinogen 347.9 (110.8-404.3) mg/dL ABG pH (7.35-7.45) ABG pCO2 (35-45) mmHg ABG pO2 (80-100) mmHg ABG HCO3 (19-31) mmol/L ABG O2 Saturation (95-98) % ABG Base Excess (-2.0-2.0) Sodium 147 H (135-145) mmol/L Potassium 2.8 L (3.5-5.0) mmol/L Chloride 111 (101-111) mmol/L Carbon Dioxide 13 L* (22-32) mmol/L Anion Gap 23 H (2-11) mmol/L BUN 18 (6-24) mg/dL Creatinine 1.21 H (0.67-1.17) mg/dL Est GFR ( Amer) 86.4 (>60) Est GFR (Non-Af Amer) 71.4 (>60) BUN/Creatinine Ratio 14.9 (8-20) Glucose 124 H (70-100) mg/dL Lactic Acid (0.5-2.0) mmol/L Calcium 9.9 (8.6-10.3) mg/dL Magnesium 2.0 (1.9-2.7) mg/dL Total Bilirubin 0.40 (0.2-1.0) mg/dL AST 23 (13-39) U/L ALT 34 (7-52) U/L Alkaline Phosphatase 72 (34-104) U/L Total Creatine Kinase 144 (10-223) U/L Troponin I 0.00 (<0.04) ng/mL C-Reactive Protein 9.70 H (<8.01) mg/L B-Natriuretic Peptide ( - 100) pg/mL Total Protein 8.0 (6.4-8.9) g/dL Albumin 4.9 (3.2-5.2) g/dL Globulin 3.1 (2-4) g/dL Albumin/Globulin Ratio 1.6 (1-3) Procalcitonin (<0.6) ng/mL Urine Color Urine Appearance Urine pH (5-9) Ur Specific [place] (1.010-1.030) Urine Protein (Negative) Urine Ketones (Negative) Urine Blood (Negative) Urine Nitrate (Negative) Urine Bilirubin (Negative) Urine Urobilinogen (Negative) Ur Leukocyte Esterase (Negative) Urine Glucose (Negative) Salicylates < 2.50 (<30) mg/dL Acetaminophen Pending Blood Type Antibody Screen 03/10/18 03/10/18 03/10/18 Range/Units 20:37 20:37 20:37 WBC (3.5-10.8) 10^3/ul RBC (4.00-5.40) 10^6/ul Hgb (14.0-18.0) g/dl Hct (42-52) % MCV (80-94) fL MCH (27-31) pg MCHC (31-36) g/dl RDW (10.5-15) % Plt Count (150-450) 10^3/ul MPV (7.4-10.4) um3 Neut % (Auto) (38-83) % Lymph % (Auto) (25-47) % Loving % (Auto) (0-7) % Eos % (Auto) (0-6) % Baso % (Auto) (0-2) % Absolute Neuts (auto) (1.5-7.7) 10^3/ul Absolute Lymphs (auto) (1.0-4.8) 10^3/ul Absolute Monos (auto) (0-0.8) 10^3/ul Absolute Eos (auto) (0-0.6) 10^3/ul Absolute Basos (auto) (0-0.2) 10^3/ul Absolute Nucleated RBC 10^3/ul Nucleated RBC % ESR (0-14) mm/Hr Hem Pathologist Commnt INR (Anticoag Therapy) (0.77-1.02) APTT (26.0-36.3) seconds Fibrinogen (110.8-404.3) mg/dL ABG pH (7.35-7.45) ABG pCO2 (35-45) mmHg ABG pO2 (80-100) mmHg ABG HCO3 (19-31) mmol/L ABG O2 Saturation (95-98) % ABG Base Excess (-2.0-2.0) Sodium (135-145) mmol/L Potassium (3.5-5.0) mmol/L Chloride (101-111) mmol/L Carbon Dioxide (22-32) mmol/L Anion Gap (2-11) mmol/L BUN (6-24) mg/dL Creatinine (0.67-1.17) mg/dL Est GFR ( Amer) (>60) Est GFR (Non-Af Amer) (>60) BUN/Creatinine Ratio (8-20) Glucose (70-100) mg/dL Lactic Acid 16.7 H* (0.5-2.0) mmol/L Calcium (8.6-10.3) mg/dL Magnesium (1.9-2.7) mg/dL Total Bilirubin (0.2-1.0) mg/dL AST (13-39) U/L ALT (7-52) U/L Alkaline Phosphatase (34-104) U/L Total Creatine Kinase (10-223) U/L Troponin I (<0.04) ng/mL C-Reactive Protein (<8.01) mg/L B-Natriuretic Peptide 72 ( - 100) pg/mL Total Protein (6.4-8.9) g/dL Albumin (3.2-5.2) g/dL Globulin (2-4) g/dL Albumin/Globulin Ratio (1-3) Procalcitonin < 0.1 (<0.6) ng/mL Urine Color Urine Appearance Urine pH (5-9) Ur Specific [place] (1.010-1.030) Urine Protein (Negative) Urine Ketones (Negative) Urine Blood (Negative) Urine Nitrate (Negative) Urine Bilirubin (Negative) Urine Urobilinogen (Negative) Ur Leukocyte Esterase (Negative) Urine Glucose (Negative) Salicylates (<30) mg/dL Acetaminophen Blood Type Antibody Screen 03/10/18 03/10/18 03/10/18 Range/Units 20:37 21:05 21:12 WBC (3.5-10.8) 10^3/ul RBC (4.00-5.40) 10^6/ul Hgb (14.0-18.0) g/dl Hct (42-52) % MCV (80-94) fL MCH (27-31) pg MCHC (31-36) g/dl RDW (10.5-15) % Plt Count (150-450) 10^3/ul MPV (7.4-10.4) um3 Neut % (Auto) (38-83) % Lymph % (Auto) (25-47) % Loving % (Auto) (0-7) % Eos % (Auto) (0-6) % Baso % (Auto) (0-2) % Absolute Neuts (auto) (1.5-7.7) 10^3/ul Absolute Lymphs (auto) (1.0-4.8) 10^3/ul Absolute Monos (auto) (0-0.8) 10^3/ul Absolute Eos (auto) (0-0.6) 10^3/ul Absolute Basos (auto) (0-0.2) 10^3/ul Absolute Nucleated RBC 10^3/ul Nucleated RBC % ESR (0-14) mm/Hr Hem Pathologist Commnt INR (Anticoag Therapy) (0.77-1.02) APTT (26.0-36.3) seconds Fibrinogen (110.8-404.3) mg/dL ABG pH 7.31 L (7.35-7.45) ABG pCO2 36 (35-45) mmHg ABG pO2 100 (80-100) mmHg ABG HCO3 19.1 (19-31) mmol/L ABG O2 Saturation 97.8 (95-98) % ABG Base Excess -7.4 L (-2.0-2.0) Sodium (135-145) mmol/L Potassium (3.5-5.0) mmol/L Chloride (101-111) mmol/L Carbon Dioxide (22-32) mmol/L Anion Gap (2-11) mmol/L BUN (6-24) mg/dL Creatinine (0.67-1.17) mg/dL Est GFR ( Amer) (>60) Est GFR (Non-Af Amer) (>60) BUN/Creatinine Ratio (8-20) Glucose (70-100) mg/dL Lactic Acid (0.5-2.0) mmol/L Calcium (8.6-10.3) mg/dL Magnesium (1.9-2.7) mg/dL Total Bilirubin (0.2-1.0) mg/dL AST (13-39) U/L ALT (7-52) U/L Alkaline Phosphatase (34-104) U/L Total Creatine Kinase (10-223) U/L Troponin I (<0.04) ng/mL C-Reactive Protein (<8.01) mg/L B-Natriuretic Peptide ( - 100) pg/mL Total Protein (6.4-8.9) g/dL Albumin (3.2-5.2) g/dL Globulin (2-4) g/dL Albumin/Globulin Ratio (1-3) Procalcitonin (<0.6) ng/mL Urine Color Yellow Urine Appearance Cloudy Urine pH 5.0 (5-9) Ur Specific [place] 1.014 (1.010-1.030) Urine Protein Negative (Negative) Urine Ketones Negative (Negative) Urine Blood Negative (Negative) Urine Nitrate Negative (Negative) Urine Bilirubin Negative (Negative) Urine Urobilinogen Negative (Negative) Ur Leukocyte Esterase Negative (Negative) Urine Glucose Negative (Negative) Salicylates (<30) mg/dL Acetaminophen Blood Type A Positive Antibody Screen Negative ECG, personally reviewed: sinus tachycardia rate 138, no ischemia CXR, personally reviewed: poor inspiratory effort, no acute process Impression: 28YO male HX Coricidin abuse presents with altered mental status presumed 2nd to same DIAGNOSIS & PLAN Primary AMS 2nd presumed coricidin OD : ICU monitoring : Q6H ECGs to monitor QTc : supplemental oxygen : social security benefits interviewer consult : poison control consulted be ED : supportive care SIRS suspect 2nd seizure, baseline tachycardia, & coricidin OD : given piperacillin/tazobactam in ED : IVFs : will hold further ABX pending blood CXs & temp/WBC curve monitoring latic acidosis 2nd seizure : seizure precautions : IVFs, trend hypoKalemia : replace & recheck Secondary : continue levothyroxine once able to pass a bedside swallowing evaluation Admission Rational: Inpatient as without the above interventions the risk of impending adverse outcome is unacceptably high; inappropriate for the outpatient setting DVTp: GIANNI Code Status: full Critical Care time: 35minutes with >50% spent at the bedside obtaining a history , performing the examination, advising of diagnosis & treatment options along with risks/benefits/reasoning; remainder spent discussing with ER MD, reviewing labs and radiology exams, performing documentation History & Physical Patient: MADONNA ANGELES /Age: 09 1990 28 Medical Record#: [id number] Admission Date: 03/09/18 Provider: Jeaneth SARMIENTO CC: Behavioral Health Unit ADMISSION HISTORY AND PHYSICAL: DATE OF ADMISSION: 03/09/18 PATIENT OF ADMITTING HOSPITALIST: Dr. Bruce Palacio. PRIMARY CARE PROVIDER: The patient does not have a primary care provider. CHIEF COMPLAINT: Drug overdose. HISTORY OF PRESENT ILLNESS: Mr. Angeles is a 28-year-old gentleman with past medical history significant for polysubstance abuse, depression, psychiatric disorder with suicidal ideation, also he has a history of hepatitis C, hypothyroidism with multiple admission of overdose most recently back on . The patient was discharged from the hospital towards the end of January and was transferred to a rehab facility known as [facility] in [facility]. He tells me that he was "graduated" from rehab about 3 days ago and returned to [facility]. He did not return to live with his mother and does not have any current residency at this time, so he lived in the streets. He was brought to the emergency room earlier today with suicidal ideation after he took 48 tablets of Coricidin cough medicine that he bought from a local pharmacy. The patient notes that he took all these tablets earlier this morning and had some orange juice with it. He denied any abdominal pain, nausea, vomiting, chest pain, palpitation, dizziness, headache or syncope. He was brought by the EMS staff and upon arrival he was a little drowsy; however, he was alert upon questioning and oriented to time and place and person as well. The patient had the exact similar presentation about 5 weeks ago for which Poison Control was contacted back then and recommended to observe the patient, give him benzodiazepines as needed for agitation, and to obtain a mental health evaluation again. The patient denied having any seizures on that admission or in the last month. He had laboratory workup in the emergency room that revealed normal CBC, normal chemistry, and his urine toxicology was positive for phencyclidine. PAST MEDICAL HISTORY: As mentioned above, significant for: 1. Multiple episodes of polysubstance abuse and overdose. 2. Coricidin dependence. 3. Alcohol use disorder. 4. Tobacco use disorder. 5. Antisocial personality traits. 6. Hepatitis C. 7. Hypothyroidism. PAST SURGICAL HISTORY: None. CURRENT MEDICATIONS: His medications at home include: 1. Atarax 50 mg p.o. t.i.d. as needed for anxiety. 2. Synthroid 150 mcg p.o. daily. 3. Nicotine patch 21 mg transdermal daily and remove patch after 12 hours. ALLERGIES: He has no known drug allergies. FAMILY HISTORY: Noncontributory. SOCIAL HISTORY: The patient is homeless. He is a former smoker, who also abused other substance including Coricidin. His surrogate decision maker is his aunt, Margaret Ortiz, whose phone number [phone]. He wishes to be a full code. REVIEW OF SYSTEMS: See HPI. Otherwise, 12-point review of systems were examined and they were essentially negative. PHYSICAL EXAMINATION GENERAL: He is a healthy-appearing, young male, in no acute distress or discomfort at the time of admission. VITAL SIGNS: Reveal a temperature of 98.7, pulse of 110, blood pressure 141/91 , respirations of 13 with O2 sats of 95% on room air. HEENT: Head is normocephalic, atraumatic. Sclerae anicteric. PERRLA. EOMs intact. Oropharynx is pink and moist. NECK: Supple. Trachea midline. No cervical adenopathy or thyromegaly. LUNGS: Clear to auscultation bilaterally. HEART: Regular rate and rhythm. Normal S1 and S2 without rubs, murmurs or gallops. BACK: With normal curvature, no CVA tenderness. ABDOMEN: Soft, nontender, and nondistended. No hernias, masses or hepatosplenomegaly. Bowel sounds were normoactive in all quadrant. EXTREMITIES: Without cyanosis, clubbing or edema. RECTAL: Exam deferred at this time. NEUROLOGIC: He is awake, alert, and oriented x3. The patient is cooperative and mood is appropriate. His tongue is midline. Handgrip is equal bilaterally and sensation is intact throughout. DIAGNOSTIC STUDIES/LAB DATA: Laboratory workup: CBC with white count of 13,000 , hemoglobin 14.7, hematocrit 44, and platelets 241. Chemistry panel essentially within normal limits, sodium 140, potassium 3.6, chloride 110, CO2 of 22, BUN of 10, and creatinine of 1. LFTs, glucose, TSH all within normal limits. Urine toxicology positive for phencyclidine and negative for salicylates and acetaminophen. IMPRESSION: A 28-year-old male with past medical history of polysubstance abuse including Coricidin dependence, alcohol use disorder as well as tobacco use, and antisocial personality as well as psychiatric disorder, who presented to the emergency room with another episode of drug overdose. The patient denies any suicidal or homicidal ideation at the time of admission despite taken 48 pills of Coricidin earlier today. The patient will be admitted for observation for the following: ASSESSMENT AND PLAN: 1. Substance abuse and drug overdose. The patient will be observed at the telemetry unit. Based on prior experience with Poison Control, who recom- mended observe him at telemetry and give him IV fluid as well as benzodia- zepines as needed for symptomatic management of anxiety or agitation. I will monitor his lactic acid tonight and repeat it again tomorrow morning and hydrate him and put him back on regular diet. I have called and requested a mental health evaluation to be performed this weekend and he will be seen tomorrow. For the time being, he will continue one-on-one observation and monitor. 2. Hypothyroidism. I will continue his levothyroxine. 3. DVT prophylaxis. The patient is a low risk and will have SCDs while in bed and also will ambulate as tolerated. 4. Code status. He is a full code. TIME SPENT: Approximately 50 minutes were spent admitting this patient for which greater than 50% were taking history and performing physical exam. I went on and discussed the case with my attending, who agreed to plan of care and will follow him up accordingly. GUILLERMINA LOREDO [id number]/CPS #: [id number] Jeaneth SARMIENTO Dictated Date/Time: 03/09/181730 Transcribed Date/Time 03/09/181938 Copy to: CC: Jeaneth SARMIENTO This report is only to be considered final once signed by the Provider(s) as displayed in the "<Electronically Signed by >" field (s). Absence of a signature indicates the report is in a draft status and still needs to be finalized. In the event this document was created by someone other than the signing Provider, the individual initiating the document will be listed in the "Entered by:" or "Dictated by:" francois.
[2018-03-10] MEDS ORDERED: Acetaminophen SUPP* 650 MG SUPP PR PRN (22:30)
[2018-03-10] MEDS ORDERED: Ondansetron INJ* 2 MG/ML VIAL IV PRN (22:32)
--- NOTE | 2018-03-10 23:00 | RAD ---
EXAM: CT Head Without Intravenous Contrast CLINICAL HISTORY: 28 years old, male; Injury or trauma; Fall; Initial encounter; Blunt trauma (contusions or hematomas); Consciousness not specified; Injury date: ; Injury details: Pt arrived to triage after being found in garden by [facility] "acting strange". Pt has HX of od; Additional info: Headpain, od, possible fall TECHNIQUE: Axial computed tomography images of the head/brain without intravenous contrast. All CT scans at this facility use at least one of these dose optimization techniques: automated exposure control; mA and/or kV adjustment per patient size (includes targeted exams where dose is matched to clinical indication); or iterative reconstruction. COMPARISON: BRAIN WO CT BRAIN WO 04/18/2014 9:48 PM FINDINGS: Brain: No intracranial hemorrhage or extra-axial fluid collection. No evidence of mass effect or midline shift. Bull-white matter differentiation is normal. Ventricles: Unremarkable. No ventriculomegaly. Bones/joints: Unremarkable. No acute fracture. Soft tissues: Unremarkable. Sinuses: Unremarkable as visualized. No acute sinusitis. Mastoid air cells: Unremarkable as visualized. No mastoid effusion. IMPRESSION: No acute intracranial pathology.
[2018-03-10] MEDS: KCL 10 MEQ/50 ML IVPREMIX* 10 MEQ/50 ML BAG IV SCH (23:33)
[2018-03-11] MEDS: KCL 10 MEQ/50 ML IVPREMIX* 10 MEQ/50 ML BAG IV SCH ×2 (00:51→01:54)
[2018-03-11 05:45] LABS: Hematocrit 40 % (42-52); Hemoglobin 13.3 g/dl (14.0-18.0); Mean Corpuscular HGB Conc 34 g/dl (31-36); Mean Corpuscular Hemoglobin 29 pg (27-31); Mean Corpuscular Volume 87 fL (80-94); Mean Platelet Volume 8.3 um3 (7.4-10.4); Platelet Count 211 10^3/ul (150-450); Red Blood Count 4.57 10^6/ul (4.00-5.40); Red Cell Distribution Width 13 % (10.5-15); White Blood Count 11.2 10^3/ul (3.5-10.8)
[2018-03-11 06:02] LABS: EGFR Non-African American 99.2 (>60)
--- NOTE | 2018-03-11 07:37 | PN ---
Subjective Date of Service: 03/11/18 Interval History: Mr. Angeles denies complaint this morning. He confirms he felt well yesterday at discharge and that he did not intend to use coricidin. However, once he left the hospital, he felt very paranoid and could hear people saying his name on the street and talking about him. He could not tolerate this and decided to take coricidin again, 64 tabs. He states that he immediately felt different than usual and brought himself back to the hospital where he was found by an employee. He denies suicidal ideation. He believes that he will do much better overall if he leaves [place] and intends to go to [place] at discharge. He believes he will be better there at the [facility] rather than here at a hotel alone. He notes that his mother will buy him a bus ticket. When I ask if I can speak with her to confirm, he states that I cannot tell her that he is here for an overdose as he told her that he is here for an ischemic colitis flare. He is pain free. He denies chest pain, palpitations, SOB, nausea, or abdominal pain. Objective Active Medications: Acetaminophen (Tylenol Supp*) 650 mg AL Q6H PRN Lactated Ringer's (Lactated Ringers 1000 Ml Bag*) 1,000 mls @ 200 mls/hr IV PER RATE KHRIS Ondansetron HCl (Zofran Inj*) 4 mg IV Q4H PRN Pantoprazole Sodium (Protonix Iv*) 40 mg IV DAILY KHRIS Vital Signs: Temp Pulse Resp BP Pulse Ox 98.2 F 80 22 132/92 96 03/11/18 04:00 03/11/18 06:00 03/11/18 06:00 03/11/18 06:00 03/11/18 06:00 Oxygen Devices in Use Now: None Appearance: Male lying in bed in NAD Eyes: No Scleral Icterus Ears/Nose/Mouth/Throat: Mucous Membranes Moist Neck: Trachea Midline Respiratory: Symmetrical Chest Expansion and Respiratory Effort, Clear to Auscultation Cardiovascular: NL Sounds; No Murmurs; No JVD, No Edema Abdominal: NL Sounds; No Tenderness; No Distention Extremities: No Edema Skin: No Rash or Ulcers Neurological: Alert and Oriented x 3, NL Muscle Strength and Tone Nutrition: Taking PO's Result Diagrams: 03/11/18 05:30 03/11/18 05:30 Microbiology and Other Data: Microbiology 03/10/18 23:40 Nasal Screen MRSA (PCR) - Final Nasal Mrsa Not Detected Assess/Plan/Problems-Billing Assessment: Mr. Angeles is a 28 yo male with a PMH of frequent overdoses on coricidin who was just discharged yesterday afternoon only to return within several hours, again overdosing on coricidin. He denies suicidal ideation but endorses paranoia. - Patient Problems (1) Overdose Comment: - Symptoms of coricidin overdose are resolving, he is not tachycardic. Last QTc 496, minimal prolongation. Plan to remove reed. - Patient with difficult history of frequent overdoses on coricidin, plan for psych consult, director of social media marketing consult, supportive employment case manager following. - Patient with history of drinking hand bee raiser on previous admissions, will need one to one monitor. (2) Paranoia Comment: - Pysch consult placed. (3) DVT prophylaxis Comment: - SCDs, frequent ambulation (4) Full code status Status and Disposition: Inpatient. Readmit after being discharged yesterday. Will need discharge planning.
[2018-03-11] MEDS ORDERED: Potassium Chlor TAB* 20 MEQ TAB.ER PO ONE (07:57)
[2018-03-11] MEDS ORDERED: Nicotine Inhaler* 10 MG AMP INH PRN (08:10)
[2018-03-11] MEDS ORDERED: Mouth Piece, Nicotine* 1 EACH CARTRIDGE INH PRN (08:10)
[2018-03-11] MEDS: Pantoprazole IV* 40 MG IV SCH (08:31)
[2018-03-11] MEDS: Levothyroxine TAB* 150 MCG TAB PO SCH (08:32)
--- NOTE | 2018-03-11 09:08 | RAD ---
INDICATION: Seizure and fever COMPARISON: Chest x-ray dated January 28, 2018 TECHNIQUE: Single AP portable view of the chest was obtained. FINDINGS: Image quality is compromised due to the relative inferiority of a portable chest x-ray. Image quality is further limited by incomplete inspiratory effort. The heart and mediastinum exhibit normal size and contour. The lungs are grossly clear. There is no evidence of a large pleural effusion. Visualized bones are normal for the patient's age. IMPRESSION: No radiographic evidence for acute cardiopulmonary abnormality on this portable chest x-ray. R1
[2018-03-11] MEDS ORDERED: ALPRAZolam TAB* 0.25 MG PO ONE (09:41)
[2018-03-12] MEDS: Levothyroxine TAB* 150 MCG TAB PO SCH (05:55)
[2018-03-12 06:22] LABS: EGFR Non-African American 84.1 (>60)
--- NOTE | 2018-03-12 08:25 | PN ---
Subjective Date of Service: 03/12/18 Interval History: Mr. Angeles denies complaint. He again reiterates his plan to take a bus to [place] when he leaves here today. Objective Active Medications: Acetaminophen (Tylenol Supp*) 650 mg MI Q6H PRN Device (Nicotine Mouth Piece*) 1 each INH .USE WITH NICOTROL PRN Levothyroxine Sodium (Synthroid Tab*) 150 mcg PO DAILY@0600 KHRIS Nicotine (Nicotine Inhaler*) 10 mg INH Q2H PRN Ondansetron HCl (Zofran Inj*) 4 mg IV Q4H PRN Pantoprazole Sodium (Protonix Iv*) 40 mg IV DAILY KHRIS Vital Signs: Temp Pulse Resp BP Pulse Ox 97.9 F 70 16 101/56 98 03/12/18 03:22 03/12/18 03:22 03/12/18 07:51 03/12/18 03:22 03/12/18 03:22 Oxygen Devices in Use Now: None Appearance: Male lying in bed in NAD Eyes: No Scleral Icterus Ears/Nose/Mouth/Throat: Mucous Membranes Moist Neck: Trachea Midline Respiratory: Symmetrical Chest Expansion and Respiratory Effort, Clear to Auscultation Cardiovascular: NL Sounds; No Murmurs; No JVD, No Edema Abdominal: NL Sounds; No Tenderness; No Distention Lymphatic: No Cervical Adenopathy Extremities: No Edema Skin: No Rash or Ulcers Neurological: Alert and Oriented x 3, NL Muscle Strength and Tone Nutrition: Taking PO's Result Diagrams: 03/11/18 05:30 03/12/18 05:51 Microbiology and Other Data: Microbiology 03/10/18 23:40 Nasal Screen MRSA (PCR) - Final Nasal Mrsa Not Detected Assess/Plan/Problems-Billing Assessment: Mr. Angeles is a 28 yo male with a PMH of frequent overdoses on coricidin who was just discharged yesterday afternoon only to return within several hours, again overdosing on coricidin. He denies suicidal ideation but endorses paranoia. - Patient Problems (1) Overdose Comment: - Symptoms resolved. - Patient with difficult history of frequent overdoses on coricidin. Appreciate psych eval, no indication for inpatient admission. Patient reportedly could not get back into his hotel and therefore took coricidin so that he could be re-admitted to the hospital and have a place to stay for the night. (2) Paranoia Comment: - Patient now retracts story of feeling paranoid. (3) DVT prophylaxis Comment: - SCDs, frequent ambulation (4) Full code status Status and Disposition: Discharge.
[2018-03-12] MEDS: Pantoprazole IV* 40 MG IV SCH (09:38)
--- NOTE | 2018-03-12 16:01 | CONS ---
AMENDED REPORT NOW INCLUDES DATE OF CONSULT - ESIGNED BEFORE ADJUSTMENT CONSULTATION REPORT: DATE OF CONSULT: 03/12/18 SUPERVISING PSYCHIATRIST: Dr. Jesus Madrigal. ATTENDING PROVIDER: Sofie Morse NP CONSULTING PROVIDER: Indiana Patrick NP REASON FOR CONSULT: Psychiatry asked to consult due to multiple overdose attempts on Coricidin. CHIEF COMPLAINT: "I should never have come back to [place], there is not a lot here for me." HISTORY OF PRESENT ILLNESS: Fernie is a 28-year-old white male, undomiciled, who presented to the ED on 03/10/18, within hours of being discharged from the medical floor. He is well known to this literary writer and this [facility] due to significant history of ED visits and [facility] admissions. The patient was discharged from this hospital in January and attended [facility] inpatient substance use treatment. He returned to this [facility] on February, 03/06/18. He states that his plan of attending [facility] in [place] did not deleon out due to not being accepted. He states he does not know why he was not accepted. He has been staying at the [facility] through [facility]. He presented to the emergency department on the evening of 03/09/18. He was monitored and discharged around 4:00 p.m. on 03/10/18. As stated above, he returned a few hours later and was observed to be on hospital grounds with altered mental state. He was brought to triage and observed to have a seizure while in triage. The patient was postictal in the emergency room and admitted to telemetry by hospitalist service. Today, the patient is sleeping in hospital bed upon approach, he is moderately easy to arouse. He exhibits poor eye contact and answers questions tersely. Conversation continued and the patient identifies that he took Coricidin on Monday on his way to the hospital because he was unable to stay at the [facility]. The patient explains that he did not arrive to the [facility] in time. Cna Instructor continues to problem solve with the patient and he refuses to participate in conversation. He only states "I need to get to [place]." The patient states that he spoke with his mother, who has agreed to buy him a bus ticket to [place]. He states that she is planning to meet him at the bus station. He denies suicidal ideation. He denies urges for self-harm. The patient exhibits future orientation and a goal of returning to [facility] where he has established peer support. He states that he plans to go to the rescue mission in [place]. PAST PSYCHIATRIC HISTORY: The patient has a significant history of ED visits, ICU, telemetry, and BSU admissions at [facility]. He has also been hospitalized at various hospitals in [place]. He has multiple failed referrals to substance use treatment and has a history of requesting admission with complaints of auditory hallucinations and suicidality in the setting of Coricidin use. He most recently was referred to [facility] in [place] and reported completing this program. The patient has been hospitalized for longer time at [facility]. He has been treated several times for rhabdomyolysis, directly related to substance use. He has been treated at [facility], [facility], and [facility]. He has a history of recanting mental health symptoms and identifying that he said these things to be admitted to the hospital. Past diagnoses include opiate dependence, Coricidin dependence, substance- induced mood disorder, malingering, and unspecified personality disorder. Past medication trials include, but are not limited to, aripiprazole, risperidone, olanzapine, sertraline, citalopram, fluoxetine, trazodone, bupropion, naltrexone, Suboxone, Topamax, prazosin, lithium, Antabuse, benzodiazepines, and stimulants. PAST MEDICAL HISTORY: Remarkable for hepatitis C, hypothyroidism and he takes levothyroxine 150 mcg daily. PAST SUICIDE AND HOMICIDE HISTORY: The patient has a history of suicide attempts and prior suicidal behaviors. He has admitted to the ICU several times after accidental drug overdose. LEGAL HISTORY: The patient has a history of arrest on charges for petty aguirre and has [facility] time [facility]. There is no noted history of violence or aggression. FAMILY HISTORY: The patient denies. SUBSTANCE USE HISTORY: The patient has a history of IV opiate use; at the peak , he was using 5 to 6 packs of heroin per day. His drug of choice is over-the- counter medication, Coricidin. MENTAL STATUS EXAM: The patient is an obese, white male, who appears stated age. He is lying in bed, dressed in the hospital gown. He is wearing new glasses and is disheveled. He is poorly groomed and has a full sarkar. No psychomotor abnormal activity is noted. The patient is alert and oriented x3. Eye contact is poor. Mood is euthymic. Affect is constricted. Thought process is linear and goal directed. The patient denies auditory or visual hallucinations. He denies delusions. He denies suicidal ideation or passive wish. He reports the plan to return to [place], where he has lived in the past and is knowledgeable about social media marketing specialist there. Insight and judgment are poor. Impulse control is tenuous. Fund of knowledge is adequate. LABORATORY DATA: Urine drug screen for this admission was positive for phencyclidine, which is common for the patient due to Coricidin use. The patient reports history of alcohol use, but denies recently. He smokes approximately half pack of cigarettes per day. DIAGNOSES: Coricidin dependence, polysubstance use disorder, malingering, antisocial personality disorder. ASSESSMENT: Fernie is a 28-year-old white male with a history of polysubstance use disorder, who presented the emergency department after overdosing on Coricidin. The patient has a history of poor impulse control and history of drinking hand picker feeder in a manipulative manner. RECOMMENDATIONS: He remains with constant observation until he is discharged. He has an extensive history of not following through recommendations and outpatient nonadherence. He reports preference to relocate to [place] [facility]. PLAN: The patient to remain on observation while in the hospital due to poor impulse control and negative attention-seeking behaviors. The patient is encouraged to utilize supports appropriately. The patient is encouraged to utilize 12-step supports as he states that these are available to him. I have reviewed the above with attending provider and supervising psychiatrist, Dr. Jesus Madrigal. IND[place] PATRICK NP [id number]/CPS #: [id number] SOLO
[2018-03-12 17:37] VITALS: BP 106/61
--- NOTE | 2018-03-13 02:41 | DS ---
HOSPITAL MEDICINE DISCHARGE SUMMARY: DATE OF ADMISSION: 03/10/18 DATE OF DISCHARGE: 03/12/18 PRIMARY CARE PHYSICIAN: None. ATTENDING PHYSICIAN: Dr. Jodee Vargas * (dictation provided by Ambreen Morse NP ). PRIMARY DIAGNOSIS: Coricidin overdose. SECONDARY DIAGNOSES: 1. History of Coricidin dependence. 2. Hypothyroidism. 3. Tobacco use disorder. 4. Antisocial personality traits. 5. Hepatitis C. MEDICATIONS AT THE TIME OF DISCHARGE: 1. Levothyroxine 150 mcg p.o. daily. 2. Nicotine patch p.r.n. HOSPITAL COURSE: Mr. Angeles is a 28-year-old male with past medical history of Coricidin overdose and dependence who presented to the hospital on 03/12/18 again with Coricidin overdose. The patient had just been discharged from our hospital approximately 4 hours earlier for treatment of Coricidin overdose. He initially reported that he was paranoid and hearing voices, and therefore took the Coricidin to avoid these symptoms. He felt unwell and therefore came back to the hospital where he was found to be disoriented and wandering around; however on further questioning by the Psychiatry ore fielder, the patient does admit that he was unable to get into his home where he stays at a hotel and therefore took Coricidin on the way back to the hospital in hopes that he would be able to spend the night here. Mr. Angeles was initially tachycardiac. His white blood cell count was 16.9. His lactic acid was 16.7. His potassium was 2.8. His creatinine was 1.21. His CRP was 9.70. His CT brain showed "no acute intracranial pathology." His chest x- ray showed "no radiographic evidence for acute cardiopulmonary abnormality." Mr. Angeles was monitored in the intensive care unit overnight. He was provided with IV fluids. Telemetry monitoring as well as a EKG showed that his QTc became slightly prolonged about 490, but this began to resolve. His last EKG shows QTc of 463. His tachycardia has resolved. Mr. Angeles is feeling better today. He is back to his baseline in terms of mentation and mobility. His vital signs are stable. His acute lactic acidosis and hypernatremia have resolved with hydration. Mr. Angeles had a history multiple admissions to our hospital for Coricidin overdose. He denies suicidal ideation and appears that his overdose at this time was an attempt to gain housing for the night. His plan today is to take a bus back to [place]. He reports that his mother will be buying him a ticket and he has every intention to leave this afternoon. He feels that he will be better served in [place] as he would prefer staying at the rescue mission there rather than staying at a hotel alone where he resides here in [place] with the support of hospice social worker. Mr. Angeles was evaluated by our psychiatric ore fielder and she saw no indication for inpatient admission or no indication that he was harm to himself or others. DISPOSITION: Home. DIET: Regular. ACTIVITY: As tolerated. FOLLOWUP PLANS: Please follow up with the services in [place] including the rescue mission and hospice social worker towards obtaining a primary care provider and therapist. TIME SPENT: Approximately 60 minutes were spent in the discharge of this patient, more than half that time was spent with the patient at the bedside reviewing the events leading up to and during this hospitalization, performing the physical examination, and reviewing the plan of care. AMBREEN MORSE NP [id number]/CPS #: [id number] SOLO
== END 2018-03-12 19:30 | disposition home or self-care (01) | DRG 812 ==
LOC: ED 19:56 → ICU 22:24 → MEDTELE 03-11 10:26
PROVIDERS: ADMIT Hospitalist; ATTEND Internal Medicine
DX: T48.3X2A Poisoning by antitussives, intentional self-harm, initial encounter (principal); E87.2 Acidosis; E87.0 Hyperosmolality and hypernatremia; R65.10 Systemic inflammatory response syndrome (SIRS) of non-infectious origin without acute organ dysfunction; F15.20 Other stimulant dependence, uncomplicated; Y92.9 Unspecified place or not applicable; E03.9 Hypothyroidism, unspecified; F17.210 Nicotine dependence, cigarettes, uncomplicated; B19.20 Unspecified viral hepatitis C without hepatic coma; R41.82 Altered mental status, unspecified; R56.9 Unspecified convulsions; Z79.899 Other long term (current) drug therapy; Z59.0 Homelessness; Z76.5 Malingerer [conscious simulation]
CPT/HCPCS: 36415; 70450; 71045; 80048; 80053; 80329; 81003; 82550; 82803; 83605; 83735; 83880; 84145; 84484; 85025; 85027; 85060; 85384; 85610; 85652; 85730; 86140; 86850; 86900; 86901; 87040; 87641; 93005; 99284; A9270-GY; G0480; J2060; J2543; J3480

== ENCOUNTER 2018-03-14 20:37 | Inpatient (IN) | payer OTHER ==
--- OUTSIDE RECORDS SUMMARY | 2018-03-14 20:53 | XMS REPORT ---
:1990 External Reference #:[id number] Author Organization [employer] Address [address] [place] [address] [place] [address] Phone [phone] Care Team Providers Name Role Phone Bruce Palacio MD Care Team Information Painter Assistant Unavailable Care Connections Primary Care Physician Unavailable Payers Type Date Identification Numbers Payment Provider Subscriber Commercial Effective: Policy Number: Keith Angeles 2015 [id number] PayID: [id number] [address] [place] [address] Medigap Part B Expires: 2015 Policy Number: [id number] Medicaid Fernie Angeles Group Name: 1 1 [address] PayID: [id number] [place] [address] Problems Description No Information Social History Description No Information Available Allergies, Adverse Reactions, Alerts Description No Information Medications Medication Date Status Form Strength Qnty SIG Indications Ordering Provider Naltrex / Active 380mg Im once Unknown 0000 monthly- due 03/02/18 Nicotine / Active Gum 2mg 1 piece Unknown 0000 every 2 hours as needed. Nicotrol 00/ Active Inhaler 10mg 1 cartridges Unknown 0000 every 2 hours as needed Levothyroxine 00/ Active Tablets 150mcg 1 by mouth Unknown Sodium 0000 every day Results Test Date Test Result H/L Range Note Urinalysis Profile 02/13/2014 Urine Color Straw 1 Urine Appearance Clear 1 Urine Specific [place] 1.008 Low 1.010-1.030 1 Urine pH 7.0 [...] Creatine Kinase 1543 U/L High 10-223 1 [place] < 0.10 mmol/L Low 0.6-1.2 1 TSH (Thyroid Stimulating Horm) 15.19 IU/mL High 0.34-5.60 1 1 NOT A OBSTETRICS TECH PATIENT PER JENNIFFER AT [facility] 2 Presumptive Positive The urine specimen was [...] Procedures Date CPT Code Description Status 01/14/2018 43739 EKG, Interpretation Only Completed 10/27/2017 62131 EKG, Interpretation Only Completed 10/26/2017 11871 EKG, Interpretation Only Completed 10/24/2017 30713 EKG, Interpretation Only Completed 07/31/2015 80265 EKG, Interpretation Only Completed 07/31/2014 63974 EKG, Interpretation Only Completed 04/22/2014 05200 EKG, Interpretation Only Completed 02/14/2014 13304 EKG, Interpretation Only Completed 06/10/2013 13386 EKG, Interpretation Only Completed 03/16/2013 81014 EKG, Interpretation Only Completed 06/21/2012 18340 EKG, Interpretation Only Completed 06/20/2012 30849 EKG, Interpretation Only Completed Encounters Type Date Location Provider CPT E/M Dx Office Visit 02/06/2018 [facility] , Yamini 22357 F16.20 10:33a Hospitalists Hank, SANDRA T48.5x2A F17.210 Office Visit 02/05/2018 [facility] Yamini Mckinney, 44259 F16.20 10:32a Assoc, CLAY SH[employer] SUPERVISOR Hospitalists T48.5x2A F17.210 Office Visit 02/04/2018 10:32a [facility] Anna, 65033 F16.20 Assoc,pc Hospitalists PA T48.5x2A F17.210 Office Visit 02/03/2018 10:32a [facility] Anna, 78189 F16.20 Assoc,pc Hospitalists PA T48.5x2A F17.210 Office Visit 02/02/2018 10:31a [facility] Anna, 10598 F16.20 Assoc,pc Hospitalists PA T48.5x2A F17.210 Office Visit 02/01/2018 10:31a [facility] Anna, 17718 F16.20 Assoc,pc Hospitalists PA T48.5x2A F17.210 Office Visit 01/31/2018 10:31a [facility] Anna, 18542 F16.20 Assoc,pc Hospitalists PA T48.5x2A F17.210 Office Visit 01/30/2018 10:30a [facility] Sierra Stafford, CLAY SHOP SUPERVISOR 89363 F16.20 Assoc,pc Hospitalists T48.5x2A F17.210 Office Visit 01/29/2018 10:30a [facility] Sierra Stafford, CLAY SHOP SUPERVISOR 69859 F16.20 Assoc,pc Hospitalists T48.5x2A F17.210 Office Visit 01/28/2018 10:29a [facility] Assoc,pc Renetta Meek, 55059 F16.20 Hospitalists Devyn T48.5x2A F17.210 Office Visit 01/25/2018 2:45p [place] [address] T45.0x2A E03.9 Office Visit 01/25/2018 2:44p [facility] Bruce Ibanez 69349 T45.0x2A Assoc,pc Hospitalists MD Hakeem Office Visit 01/24/2018 2:43p [place] [address] T45.0x2A R41.82 R00.0 Office Visit 01/15/2018 12:25p [facility] Dave Asif M.D. 03809 T48.3x2A E03.9 Office Visit 01/14/2018 12:24p [facility] Dave Asif M.D. 07005 T48.3x2A G40.509 Office Visit 10/31/2017 1:20p [facility] Cari Shefali, 58391 T50.902A Assoc,pc Hospitalists CLAY SHOP SUPERVISOR F32.9 B18.2 Office Visit 10/29/2017 1:13p [facility] Cari Baptisteney, 74195 T50.902A Assoc,pc Hospitalists CLAY SHOP SUPERVISOR F32.9 B18.2 Office Visit 10/28/2017 1:04p [facility] Cari Sheafli, 59678 T50.902A Assoc,pc Hospitalists CLAY SHOP SUPERVISOR F32.9 B18.2 Office Visit 10/27/2017 12:58p [facility] Cari Baptisteney, 68734 T50.902A Assoc,pc Hospitalists CLAY SHOP SUPERVISOR F32.9 B18.2 Office Visit 10/25/2017 11:54a [facility], 47878 T50.902A Assoc,pc Hospitalists N.P. F32.9 B18.2 Office Visit 10/25/2017 1:53p Intensivists Haily OrtizOSvitlana 53906 T50.902A R41.0 Z76.5 Office Visit 10/24/2017 1:49p Intensivists Haily OrtizOSvitlana 58996 T50.902A R41.0 Office Visit 08/25/2014 9:44a [facility] Alee Floyd, 21217 728.88 Hospitalists D.O. 977.9 244.9 Office Visit 08/24/2014 9:43a [facility] Alee Floyd, 62402 728.88 Hospitalists D.O. 977.9 244.9 Office Visit 08/23/2014 9:43a [facility] Alee Floyd, 53026 728.88 Hospitalists D.O. 977.9 244.9 Office Visit 08/22/2014 9:43a [facility] Alee Floyd, 74770 728.88 Hospitalists D.O. 977.9 244.9 Office Visit 08/21/2014 9:43a [facility] Alee Floyd, 36476 728.88 Hospitalists D.O. 977.9 244.9 Office Visit 08/20/2014 9:42a [facility] Sofie Morse N.P. 33941 728.88 Hospitalists 977.9 244.9 Office Visit 07/07/2014 12:28p [facility] Haroldo Mckeon, 71271 571.1 Hospitalists M.DSvitlana 305.90 244.9 311 Office Visit 07/06/2014 12:27p [facility] Haroldo Mckeon, 99381 571.1 Hospitalists MSvitlanaDSvitlana 305.90 244.9 311 Office Visit 07/05/2014 12:27p [facility] [place], [address] 571.1 Assoc,pc Hospitalists MSvitlanaDSvitlana 305.90 244.9 311 Office Visit 05/19/2014 6:46p [facility] Nicole Clark, 67968 584.9 Hospitalists N.P. 728.88 963.0 301.9 Office Visit 05/18/2014 6:45p [facility] Renetta Meek, 19745 584.9 Hospitalists MLucía 728.88 301.9 963.0 Office Visit 04/25/2014 9:15p [facility] Nicole JanelleSvitlana Eduardo, 01928 728.88 Hospitalists N.P. 977.9 244.9 296.20 Office Visit 04/24/2014 9:15p [facility] Nicole JanelleSvitlana Eduardo, 96815 728.88 Hospitalists N.P. 977.9 244.9 296.20 Office Visit 04/23/2014 9:14p [facility], Nicole JanelleSvitlana Clark, 17486 728.88 Hospitalists N.P. 977.9 244.9 296.20 Office Visit 04/22/2014 9:13p [facility] Sierra Stafford, SANDRA 84540 728.88 Assoc, Hospitalists 977.9 244.9 296.20 Office Visit 04/21/2014 [facility]p [facility] SANDRA 70747 728.88 Assoc,pc Hospitalists 977.9 244.9 296.20 Office Visit 02/15/2014 11:26a [facility], Renettaaditya Meek, 16693 728.88 Hospitalists MLucía 977.9 305.90 311 Office Visit 02/14/2014 11:26a [facility], Haroldo Mckeon, 72522 977.9 Hospitalists MLucía 305.90 311 244.9 Office Visit 02/13/2014 11:25a [facility], [place] [address] 977.9 Hospitalists 305.90 311 244.9 Office Visit 09/11/2013 10:26a [facility] Ed Gauthier, 42167 969.70 Assoc,pc Hospitalists MLucía 305.90 276.2 293.0 Office Visit 09/10/2013 10:26a [facility], 86294 969.70 Assoc,pc Hospitalok Shepard 305.90 276.2 293.0 Office Visit 08/19/2013 2:26p [facility], 35366 969.79 Assoc, Hospitalists N.P. 584.9 296.60 Office Visit 08/18/2013 2:23p [facility], 50367 969.79 Assoc, Hospitalists N.P. 584.9 296.60 Office Visit 08/17/2013 2:07p [facility], 08798 969.79 Assoc, Hospitalists N.P. 296.60 305.90 Office Visit 08/16/2013 11:03a [facility], 31655 969.79 Assoc, Hospitalists N.P. 296.60 305.90 Office Visit 08/15/2013 2:[facility]p [facility] Nicole Whitfield Eduardo, 42123 969.70 Hospitalists N.P. 305.90 Office Visit 08/14/2013 2:03p [facility], 80749 969.70 Assoc, Hospitalists N.P. 305.90 296.60 995.90 Office Visit 07/14/2013 8:19a [facility], Daryl Doyle 75098 239.5 Hospitalists Devyn Mackay 244.8 Office Visit 07/11/2013 10:12a [facility] Jodee Vargas, 31709 244.9 Hospitalok Shepard 305.90 969.79 Office Visit 07/10/2013 10:11a [facility], 01169 969.79 Assoc,pc Hospitalists N.P. 244.9 305.90 Office Visit 06/14/2013 1:58p [facility], Dave Asif M.D. 95547 977.8 Hospitalists 293.0 070.54 Office Visit 06/13/2013 1:58p [facility], Tomas Groves D.O. 17716 785.0 Hospitalists 293.0 401.9 977.8 Office Visit 06/11/2013 1:57p [facility] Tomas Groves D.O. 97491 965.09 Hospitalists 244.9 070.51 296.80 Office Visit 06/10/2013 1:57p [facility] Tomas Groves D.O. 84456 292.81 Hospitalists 790.4 965.09 288.8 Office Visit 06/09/2013 1:56p [facility] Tomas Groves D.O. 13951 292.81 Hospitalists 790.4 965.09 288.8 Office Visit 06/09/2013 1:55p [facility] Maxwell Ruiz, 31346 790.4 Assoc, Hospitalists M.Haily Office Visit 03/18/2013 3:53p [facility] Haroldo Patrickkevin, 05958 995.90 Assoc, Hospitalists Dveyn 728.89 296.60 E980.4 Office Visit 03/17/2013 3:53p [facility], 49635 995.90 Assoc, Hospitalists MLucía 728.89 296.60 E980.4 Office Visit 03/16/2013 3:53p [facility], 40024 995.90 Assoc, Hospitalists Devyn 728.89 296.60 E980.4 Office Visit 03/15/2013 3:52p [facility] Leobardo Penn, 99836 296.60 Assoc, Hospitalists N.P. 995.90 728.89 E980.4 Office Visit 10/16/2012 9:09a [facility] Alee Barrientos, 72981 785.0 Hospitalists D.O. 977.9 296.60 Office Visit 10/15/2012 9:08a [facility], Leobardo Heayl, 44899 785.0 Hospitalists N.P. 977.9 296.60 Office Visit 06/22/2012 12:55p [facility] Daryl Doyle 93289 969.79 Hospitalists Devyn Mackay 780.97 785.0 244.9 Office Visit 06/21/2012 12:54p [facility],millicent Doyle 29154 969.79 Hospitalists Devyn Mackay 780.97 785.0 244.9 Office Visit 06/20/2012 10:44a [facility] ,millicent Barrientos, 83066 969.79 Hospitalists Navin 785.0 780.97 Office Visit 06/19/2012 10:43a [facility], 02245 969.79 ,millicent Hospitalists Amara.PSvitlana 785.0 780.97 Plan of Care No Information Available
--- OUTSIDE RECORDS SUMMARY | 2018-03-14 20:53 | XMS REPORT ---
:1990 External Reference #:[id number] Author Organization [employer] Address [address] [address] [place] [address] Phone [phone] Care Team Providers Name Role Phone Bruce Palacio MD Care Team Information Supervisor Pairing And Inspecting Unavailable Care Connections Primary Care Physician Unavailable Payers Type Date Identification Numbers Payment Provider Subscriber Commercial Effective: Policy Number: Keith Angeles 2015 [id number] PayID: [id number] [address] [place] [address] Medigap Part B Expires: 2015 Policy Number: [id number] Medicaid Fernie Angeles Group Name: 1 1 [address] PayID: [id number] [place] [address] Problems Description No Information Social History Description [...] 1 Urine Appearance Clear 1 Urine Specific [employer] [place] 1.008 Low 1.010-1.030 1 Urine pH 7.0 [...] Creatine Kinase 1543 U/L High 10-223 1 [place] < 0.10 mmol/L Low 0.6-1.2 1 TSH (Thyroid Stimulating Horm) 15.19 IU/mL High 0.34-5.60 1 1 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 [place] 2 Presumptive Positive The urine specimen was [...] Procedures Date CPT Code Description Status 01/14/2018 77939 EKG, Interpretation Only Completed 10/27/2017 40023 EKG, Interpretation Only Completed 10/26/2017 50487 EKG, Interpretation Only Completed 10/24/2017 74654 EKG, Interpretation Only Completed 07/31/2015 16151 EKG, Interpretation Only Completed 07/31/2014 92618 EKG, Interpretation Only Completed 04/22/2014 81696 EKG, Interpretation Only Completed 02/14/2014 81506 EKG, Interpretation Only Completed 06/10/2013 40742 EKG, Interpretation Only Completed 03/16/2013 08429 EKG, Interpretation Only Completed 06/21/2012 91556 EKG, Interpretation Only Completed 06/20/2012 98028 EKG, Interpretation Only Completed Encounters Type Date Location Provider CPT E/M Dx Office Visit 02/06/2018 [facility] , Yamini 76928 F16.20 10:33a Hospitalists Hank, SANDRA T48.5x2A F17.210 Office Visit 02/05/2018 [facility] Yamini Mckinney, 74906 F16.20 10:32a 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, 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 Hospitalists T48.5x2A F17.210 Office Visit 02/04/2018 10:32a [facility] Anna, 44628 F16.20 Assoc,pc Hospitalists PA T48.5x2A F17.210 Office Visit 02/03/2018 10:32a [facility] Anna, 28556 F16.20 Assoc,pc Hospitalists PA T48.5x2A F17.210 Office Visit 02/02/2018 10:31a [facility] Anna, 00852 F16.20 Assoc,pc Hospitalists PA T48.5x2A F17.210 Office Visit 02/01/2018 10:31a [facility] Anna, 16325 F16.20 Assoc,pc Hospitalists PA T48.5x2A F17.210 Office Visit 01/31/2018 10:31a [facility] Anna, 48806 F16.20 Assoc,pc Hospitalists PA T48.5x2A F17.210 Office Visit 01/30/2018 10:30a [facility] Sierra Stafford, 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 58782 F16.20 Assoc,pc Hospitalists T48.5x2A F17.210 Office Visit 01/29/2018 10:30a [facility] Sierra Stafford, 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 29099 F16.20 Assoc,pc Hospitalists T48.5x2A F17.210 Office Visit 01/28/2018 10:29a [facility] Assoc,pc Renetta eMek, 65141 F16.20 Hospitalists Devyn T48.5x2A F17.210 Office Visit 01/25/2018 2:45p [place] [address] T45.0x2A E03.9 Office Visit 01/25/2018 2:44p [facility] Bruce Ibanez 53038 T45.0x2A Assoc,pc Hospitalists MD Hakeem Office Visit 01/24/2018 2:43p [place] [address] T45.0x2A R41.82 R00.0 Office Visit 01/15/2018 12:25p [facility] Dave Asif M.D. 20049 T48.3x2A E03.9 Office Visit 01/14/2018 12:24p [facility] Dave Asif M.D. 78985 T48.3x2A G40.509 Office Visit 10/31/2017 1:20p [facility] Cari Shefali, 21241 T50.902A Assoc,pc Hospitalists 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 F32.9 B18.2 Office Visit 10/29/2017 1:13p [facility] Cari Baptisteney, 15400 T50.902A Assoc,pc Hospitalists 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 F32.9 B18.2 Office Visit 10/28/2017 1:04p [facility] Cari Shefali, 50156 T50.902A Assoc,pc Hospitalists 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 F32.9 B18.2 Office Visit 10/27/2017 12:58p [facility] Cari Baptisteney, 01870 T50.902A Assoc,pc Hospitalists 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 F32.9 B18.2 Office Visit 10/25/2017 11:54a [facility], 09672 T50.902A Assoc,pc Hospitalists N.P. F32.9 B18.2 Office Visit 10/25/2017 1:53p [facility] Haily OrtizOSvitlana 50373 T50.902A R41.0 Z76.5 Office Visit 10/24/2017 1:49p [facility] Haily OrtizOSvitlana 97534 T50.902A R41.0 Office Visit 08/25/2014 9:44a [facility],pc Alee Floyd, 49834 728.88 Hospitalists D.O. 977.9 244.9 Office Visit 08/24/2014 9:43a [facility] Alee Floyd, 00547 728.88 Hospitalists D.O. 977.9 244.9 Office Visit 08/23/2014 9:43a [facility] Alee Floyd, 02811 728.88 Hospitalists D.O. 977.9 244.9 Office Visit 08/22/2014 9:43a [facility] Alee Floyd, 40776 728.88 Hospitalists D.O. 977.9 244.9 Office Visit 08/21/2014 9:43a [facility] Alee Floyd, 98348 728.88 Hospitalists D.O. 977.9 244.9 Office Visit 08/20/2014 9:42a [facility] Sofie Morse N.P. 25744 728.88 Hospitalists 977.9 244.9 Office Visit 07/07/2014 12:28p [facility],pc Haroldo Mckeon, 37806 571.1 Hospitalists M.DSvitlana 305.90 244.9 311 Office Visit 07/06/2014 12:27p [facility] Haroldo Mckeon, 50328 571.1 Hospitalists MSvitlanaDSvitlana 305.90 244.9 311 Office Visit 07/05/2014 12:27p [facility] [place], 17741 571.1 Assoc,pc Hospitalists MSvitlanaDSvitlana 305.90 244.9 311 Office Visit 05/19/2014 6:46p [facility] Nicole Clark, 32942 584.9 Hospitalists N.P. 728.88 963.0 301.9 Office Visit 05/18/2014 6:45p [facility] Renetta Meek, 16239 584.9 Hospitalists MLucía 728.88 301.9 963.0 Office Visit 04/25/2014 9:15p [facility] Nicole JanelleSvitlana Eduardo, 07331 728.88 Hospitalists N.P. 977.9 244.9 296.20 Office Visit 04/24/2014 9:15p [facility] Nicole JanelleSvitlana Eduardo, 76594 728.88 Hospitalists N.P. 977.9 244.9 296.20 Office Visit 04/23/2014 9:14p [facility], Nicole JanelleSvitlana Clark, 65951 728.88 Hospitalists N.P. 977.9 244.9 296.20 Office Visit 04/22/2014 9:13p [facility] Sierra Stafford, SANDRA 86663 728.88 Assoc, Hospitalists 977.9 244.9 296.20 Office Visit 04/21/2014 [facility] SANDRA 31008 728.88 Assoc,pc Hospitalists 977.9 244.9 296.20 Office Visit 02/15/2014 11:26a [facility], Renettaaditya Meek, 78220 728.88 Hospitalists MLucía 977.9 305.90 311 Office Visit 02/14/2014 11:26a [facility], Haroldo Mckeon, 04116 977.9 Hospitalists MLucía 305.90 311 244.9 Office Visit 02/13/2014 11:25a [facility], [place] [address] 977.9 Hospitalists 305.90 311 244.9 Office Visit 09/11/2013 10:26a [facility] Ed Gauthier, 75057 969.70 Assoc,pc Hospitalists MLucía 305.90 276.2 293.0 Office Visit 09/10/2013 10:26a [facility], 03726 969.70 Assoc,pc Hospitalok Shepard 305.90 276.2 293.0 Office Visit 08/19/2013 2:26p [facility], 31024 969.79 Assoc, Hospitalists N.P. 584.9 296.60 Office Visit 08/18/2013 2:23p [facility], 26017 969.79 Assoc, Hospitalists N.P. 584.9 296.60 Office Visit 08/17/2013 2:07p [facility], 68643 969.79 Assoc, Hospitalists N.P. 296.60 305.90 Office Visit 08/16/2013 11:03a [facility], 71533 969.79 Assoc, Hospitalists N.P. 296.60 305.90 Office Visit 08/15/2013 [facility] Nicole Whitfield Eduardo, 76821 969.70 Hospitalists N.P. 305.90 Office Visit 08/14/2013 2:03p [facility], 88448 969.70 Assoc, Hospitalists N.P. 305.90 296.60 995.90 Office Visit 07/14/2013 8:19a [facility], Daryl Doyle 29841 239.5 Hospitalists Devyn Mackay 244.8 Office Visit 07/11/2013 10:12[facility] Jodee Vargas, 03823 244.9 Hospitalok Shepard 305.90 969.79 Office Visit 07/10/2013 10:11a [facility], 12559 969.79 Assoc,pc Hospitalists N.P. 244.9 305.90 Office Visit 06/14/2013 1:58p [facility] Dave Asif M.D. 30193 977.8 Hospitalists 293.0 070.54 Office Visit 06/13/2013 1:58p [facility], Tomas Groves D.O. 85338 785.0 Hospitalists 293.0 401.9 977.8 Office Visit 06/11/2013 1:57p [facility] Tomas Groves D.O. 80728 965.09 Hospitalists 244.9 070.51 296.80 Office Visit 06/10/2013 1:57p [facility] Tomas Groves D.O. 95736 292.81 Hospitalists 790.4 965.09 288.8 Office Visit 06/09/2013 1:56p [facility] Tomas Groves D.O. 27406 292.81 Hospitalists 790.4 965.09 288.8 Office Visit 06/09/2013 1:55p [facility] Maxwell Ruiz, 81409 790.4 Assoc, Hospitalists M.Haily Office Visit 03/18/2013 3:53p [facility] Haroldo Patrickkevin, 94246 995.90 Assoc, Hospitalists Devyn 728.89 296.60 E980.4 Office Visit 03/17/2013 3:53p [facility], 46838 995.90 Assoc, Hospitalists MLucía 728.89 296.60 E980.4 Office Visit 03/16/2013 3:53p [facility], 99295 995.90 Assoc, Hospitalists Devyn 728.89 296.60 E980.4 Office Visit 03/15/2013 3:52p [facility] Leobardo [place], 93692 296.60 Assoc, Hospitalists N.P. 995.90 728.89 E980.4 Office Visit 10/16/2012 9:09a [facility] Alee Barrientos, 26916 785.0 Hospitalists D.O. 977.9 296.60 Office Visit 10/15/2012 9:08a [facility], Leobardo Healy, 98361 785.0 Hospitalists N.P. 977.9 296.60 Office Visit 06/22/2012 12:55p [facility] Daryl Doyle 29043 969.79 Hospitalists Devyn Mackay 780.97 785.0 244.9 Office Visit 06/21/2012 12:54p [facility],millicent Doyle 72549 969.79 Hospitalists Devyn Mackay 780.97 785.0 244.9 Office Visit 06/20/2012 10:44a [facility] ,millicent Barrientos, 37146 969.79 Hospitalists Navin 785.0 780.97 Office Visit 06/19/2012 10:43a [facility], 68854 969.79 ,millicent Hospitalists Amara.PSvitlana 785.0 780.97 Plan of Care No Information Available
--- OUTSIDE RECORDS SUMMARY | 2018-03-14 20:53 | XMS REPORT ---
:1990 External Reference #:[id number] Author Organization [employer] Address [address] [place] [address] [place] [address] Phone [phone] Care Team Providers Name Role Phone Bruce Palacio MD Care Team Information Concrete Mixer Unavailable Care Connections Primary Care Physician Unavailable Payers Type Date Identification Numbers Payment Provider Subscriber Commercial Effective: Policy Number: Keith Angeles 2015 [id number] PayID: [id number] [address] [place] [address] Medigap Part B Expires: 2015 Policy Number: [id number] Medicaid Fernie Angeles Group Name: 1 1 [address] PayID: [id number] [place] [address] Problems Description No Information Social History Description [...] 1 Urine Appearance Clear 1 Urine Specific [place] 1.008 Low 1.010-1.030 1 Urine pH 7.0 [...] Creatine Kinase 1543 U/L High 10-223 1 [place] < 0.10 mmol/L Low 0.6-1.2 1 TSH (Thyroid Stimulating Horm) 15.19 IU/mL High 0.34-5.60 1 1 NOT A TRADE SALES ASSISTANT PATIENT PER J[facility]FFER AT [facility] [place] 2 Presumptive Positive The urine [...] Procedures Date CPT Code Description Status 01/14/2018 44306 EKG, Interpretation Only Completed 10/27/2017 25081 EKG, Interpretation Only Completed 10/26/2017 80886 EKG, Interpretation Only Completed 10/24/2017 27115 EKG, Interpretation Only Completed 07/31/2015 37480 EKG, Interpretation Only Completed 07/31/2014 06258 EKG, Interpretation Only Completed 04/22/2014 36886 EKG, Interpretation Only Completed 02/14/2014 53539 EKG, Interpretation Only Completed 06/10/2013 94246 EKG, Interpretation Only Completed 03/16/2013 83584 EKG, Interpretation Only Completed 06/21/2012 98650 EKG, Interpretation Only Completed 06/20/2012 59560 EKG, Interpretation Only Completed Encounters Type Date Location Provider CPT E/M Dx Office Visit 02/06/2018 [facility] , Yamini 84754 F16.20 10:33a Hospitalists Hank, SANDRA T48.5x2A F17.210 Office Visit 02/05/2018 [facility] Yamini Mckinney, 39641 F16.20 10:32a 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, 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 T48.5x2A F17.210 Office Visit 02/04/2018 10:32a [facility] Anna, 48370 F16.20 Assoc,pc Hospitalists PA T48.5x2A F17.210 Office Visit 02/03/2018 10:32a [facility] Anna, 02278 F16.20 Assoc,pc Hospitalists PA T48.5x2A F17.210 Office Visit 02/02/2018 10:31a [facility] Anna, 33980 F16.20 Assoc,pc Hospitalists PA T48.5x2A F17.210 Office Visit 02/01/2018 10:31a [facility] Anna, 42953 F16.20 Assoc,pc Hospitalists PA T48.5x2A F17.210 Office Visit 01/31/2018 10:31a [facility] Anna, 62365 F16.20 Assoc,pc Hospitalists PA T48.5x2A F17.210 Office Visit 01/30/2018 10:30a [facility] Sierra Stafford, PROCESS MECHANIC 66653 F16.20 Assoc,pc Hospitalists T48.5x2A F17.210 Office Visit 01/29/2018 10:30a [facility] Sierra Stafford, PROCESS MECHANIC 61650 F16.20 Assoc,pc Hospitalists T48.5x2A F17.210 Office Visit 01/28/2018 10:29a [facility] Assoc,pc Renetta Meek, 44020 F16.20 Hospitalists Devyn T48.5x2A F17.210 Office Visit 01/25/2018 2:45p [place] [address] T45.0x2A E03.9 Office Visit 01/25/2018 2:44p [facility] Bruce Ibanez 82265 T45.0x2A Assoc,pc Hospitalists MD Hakeem Office Visit 01/24/2018 2:43p [place] [address] T45.0x2A R41.82 R00.0 Office Visit 01/15/2018 12:25p [facility] Dave Asif M.D. 60729 T48.3x2A E03.9 Office Visit 01/14/2018 12:24p [facility] Dave Asif M.D. 51692 T48.3x2A G40.509 Office Visit 10/31/2017 1:20p [facility] Cari Sheflai, 53374 T50.902A Assoc,pc Hospitalists PROCESS MECHANIC F32.9 B18.2 Office Visit 10/29/2017 1:13p [facility] Cari Baptisteney, 40214 T50.902A Assoc,pc Hospitalists PROCESS MECHANIC F32.9 B18.2 Office Visit 10/28/2017 1:04p [facility] Cari Shefali, 17751 T50.902A Assoc,pc Hospitalists PROCESS MECHANIC F32.9 B18.2 Office Visit 10/27/2017 12:58p [facility] Cari Baptisteney, 95075 T50.902A Assoc,pc Hospitalists PROCESS MECHANIC F32.9 B18.2 Office Visit 10/25/2017 11:54a [facility], 23316 T50.902A Assoc,pc Hospitalists N.P. F32.9 B18.2 Office Visit 10/25/2017 1:53p [facility] Haily OrtizOSvitlana 80820 T50.902A R41.0 Z76.5 Office Visit 10/24/2017 1:49p [facility] Haily OrtizOSvitlana 03392 T50.902A R41.0 Office Visit 08/25/2014 9:44a [facility] Alee Floyd, 28082 728.88 Hospitalists D.O. 977.9 244.9 Office Visit 08/24/2014 9:43a [facility] Alee Floyd, 42272 728.88 Hospitalists D.O. 977.9 244.9 Office Visit 08/23/2014 9:43a [facility] Alee Floyd, 16908 728.88 Hospitalists D.O. 977.9 244.9 Office Visit 08/22/2014 9:43a [facility] Alee Floyd, 76596 728.88 Hospitalists D.O. 977.9 244.9 Office Visit 08/21/2014 9:43a [facility] Alee Floyd, 59660 728.88 Hospitalists D.O. 977.9 244.9 Office Visit 08/20/2014 9:42a [facility] Sofie Morse N.P. 87280 728.88 Hospitalists 977.9 244.9 Office Visit 07/07/2014 12:28p [facility] Haroldo Mckeon, 67844 571.1 Hospitalists M.DSvitlana 305.90 244.9 311 Office Visit 07/06/2014 12:27p [facility] Haroldo Mckeon, 10050 571.1 Hospitalists MSvitlanaDSvitlana 305.90 244.9 311 Office Visit 07/05/2014 12:27p [facility] [place], [address] 571.1 Assoc,pc Hospitalists MSvitlanaDSvitlana 305.90 244.9 311 Office Visit 05/19/2014 6:46p [facility] Nicole Clark, 34209 584.9 Hospitalists N.P. 728.88 963.0 301.9 Office Visit 05/18/2014 6:45p [facility] Renetta Meek, 38081 584.9 Hospitalists MLucía 728.88 301.9 963.0 Office Visit 04/25/2014 9:15p [facility] Nicole JanelleSvitlana Eduardo, 49521 728.88 Hospitalists N.P. 977.9 244.9 296.20 Office Visit 04/24/2014 9:15p [facility] Nicole JanelleSvitlana Eduardo, 98797 728.88 Hospitalists N.P. 977.9 244.9 296.20 Office Visit 04/23/2014 9:14p [facility], Nicole JanelleSvitlana Clark, 69308 728.88 Hospitalists N.P. 977.9 244.9 296.20 Office Visit 04/22/2014 9:13p [facility] Sierra Stafford, SANDRA 11217 728.88 Assoc, Hospitalists 977.9 244.9 296.20 Office Visit 04/21/2014 9:12p [facility], SANDRA 06031 728.88 Assoc,pc Hospitalists 977.9 244.9 296.20 Office Visit 02/15/2014 11:26a [facility], Renettaaditya Meek, 00528 728.88 Hospitalists MLucía 977.9 305.90 311 Office Visit 02/14/2014 11:26a [facility], Haroldo Mckeon, 95858 977.9 Hospitalists MLucía 305.90 311 244.9 Office Visit 02/13/2014 11:25a [facility], [place] [address] 977.9 Hospitalists 305.90 311 244.9 Office Visit 09/11/2013 10:26a [facility] Ed Gauthier, 78952 969.70 Assoc,pc Hospitalists MLucía 305.90 276.2 293.0 Office Visit 09/10/2013 10:26a [facility], 11098 969.70 Assoc,pc Hospitalok Shepard 305.90 276.2 293.0 Office Visit 08/19/2013 2:26p [facility], 96036 969.79 Assoc, Hospitalists N.P. 584.9 296.60 Office Visit 08/18/2013 2:23p [facility], 14274 969.79 Assoc, Hospitalists N.P. 584.9 296.60 Office Visit 08/17/2013 2:07p [facility], 00305 969.79 Assoc, Hospitalists N.P. 296.60 305.90 Office Visit 08/16/2013 11:03a [facility], 87271 969.79 Assoc, Hospitalists N.P. 296.60 305.90 Office Visit 08/15/2013 [facility] Nicole Whitfield Eduardo, 65914 969.70 Hospitalists N.P. 305.90 Office Visit 08/14/2013 2:03p [facility], 76250 969.70 Assoc, Hospitalists N.P. 305.90 296.60 995.90 Office Visit 07/14/2013 8:19a [facility], Daryl Doyle 06700 239.5 Hospitalists Devyn Mackay 244.8 Office Visit 07/11/2013 10:12a [facility] Jodee Vargas, 41283 244.9 Hospitalok Shepard 305.90 969.79 Office Visit 07/10/2013 10:11a [facility], 70764 969.79 Assoc,pc Hospitalists N.P. 244.9 305.90 Office Visit 06/14/2013 1:58p [facility], Dave Asif M.D. 65142 977.8 Hospitalists 293.0 070.54 Office Visit 06/13/2013 1:58p [facility], Tomas Groves D.O. 55465 785.0 Hospitalists 293.0 401.9 977.8 Office Visit 06/11/2013 1:57p [facility] Tomas Groves D.O. 63917 965.09 Hospitalists 244.9 070.51 296.80 Office Visit 06/10/2013 1:57p [facility] Tomas Groves D.O. 69202 292.81 Hospitalists 790.4 965.09 288.8 Office Visit 06/09/2013 1:56p [facility] Tomas Groves D.O. 25948 292.81 Hospitalists 790.4 965.09 288.8 Office Visit 06/09/2013 1:55p [facility] Maxwell Ruiz, 40180 790.4 Assoc, Hospitalists M.Haily Office Visit 03/18/2013 3:53p [facility] Haroldo Patrickkevin, 35756 995.90 Assoc, Hospitalists Devyn 728.89 296.60 E980.4 Office Visit 03/17/2013 3:53p [facility], 62463 995.90 Assoc, Hospitalists MLucía 728.89 296.60 E980.4 Office Visit 03/16/2013 3:53p [facility], 09334 995.90 Assoc, Hospitalists Devyn 728.89 296.60 E980.4 Office Visit 03/15/2013 3:52p [facility] Leobardo Weston, 37284 296.60 Assoc, Hospitalists N.P. 995.90 728.89 E980.4 Office Visit 10/16/2012 9:09a [facility] Alee Barrientos, 48313 785.0 Hospitalists D.O. 977.9 296.60 Office Visit 10/15/2012 9:08a [facility], Leobardo Healy, 63974 785.0 Hospitalists N.P. 977.9 296.60 Office Visit 06/22/2012 12:55p [facility] Daryl Doyle 07612 969.79 Hospitalists Devyn Mackay 780.97 785.0 244.9 Office Visit 06/21/2012 12:54p [facility],millicent Doyle 40001 969.79 Hospitalists Devyn Mackay 780.97 785.0 244.9 Office Visit 06/20/2012 10:44a [facility] ,millicent Barrientos, 19213 969.79 Hospitalists Navin 785.0 780.97 Office Visit 06/19/2012 10:43a [facility], 91153 969.79 ,millicent Hospitalists Amara.PSvitlana 785.0 780.97 Plan of Care No Information Available
[2018-03-14] MEDS ORDERED: NS 0.9% 1000 ML* 2,000 ML IV ONE (21:12)
[2018-03-14] MEDS ORDERED: Charcoal ACTIVATED* 25 GM/120 ML BTL PO ONE (21:14)
[2018-03-14] MEDS ORDERED: LORazepam INJ* 2 MG/ML 1 ML VIAL IV PUSH ONE (21:14)
--- NOTE | 2018-03-14 21:20 | ED ---
Altered Mental Status - HPI Summary HPI Summary: This pt is a 28 y/o male presenting to the [facility] with a chief complaint of drug overdose. He denies vomiting. The pt reports taking 64 of Coricidin cough and cold tablets at 1940. The pt is unresponsive to the subsequent questions asked during evaluation. As per the triage report, the pt reports of SI. He reportedly presented to the [facility] by walking to the medical center's check-in area. Upon intervention he is alerted and orientated 1x. - History Of Current Complaint Chief Complaint: EDOverdose Stated Complaint: MEDICINE INGESTION/POSS OVERDOSE Time Seen by Provider: 03/14/18 21:08 Hx Obtained From: Patient Hx From Patient Unobtainable Due To: Altered Mental Status Onset/Duration: Still Present Timing: Constant Character: Confusion Aggravating Factor(s): Drug Abuse Associated Signs And Symptoms: Negative: Vomiting Has Suicidal: Thoughts - Allergies/Home Medications Allergies/Adverse Reactions: Allergies Allergy/AdvReac Type Severity Reaction Status Date / Time No Known Allergies Allergy Verified 03/14/18 20:45 PMH/Surg Hx/FS Hx/Imm Hx Endocrine/Hematology History: Reports: Hx Thyroid Disease - Hypothyroidism Denies: Hx Anticoagulant Therapy, Hx Blood Disorders, Hx Blood Transfusions, Hx Bone Marrow Disease, Hx Diabetes, Hx Systemic Lupus Erythematosus, Hx Sickle Cell Disease, Hx Anemia, Hx Unexplained Bleeding, Other Endocrine/Hematological Disorders Cardiovascular History: Reports: Hx Hypertension Denies: Hx Aneurysm, Hx Angina, Hx Angioplasty, Hx Auto Implanted Cardiovert Defib, Hx Cardiac Arrest, Hx Cardiomegaly, Hx Congenital Heart Disease, Hx Congestive Heart Failure, Hx Coronary Artery Disease, Hx Deep Vein Thrombosis, Hx Embolism, Hx Hypercholesterolemia, Hx Hypotension, Hx Pacemaker/ICD, Hx Peripheral Vascular Disease, Hx Rheumatic Fever, Hx Syncope, Hx Valvular Heart Disease, Other Cardiovascular Problems/Disorders Respiratory History: Reports: Hx Pneumonia, Hx Seasonal Allergies Denies: Hx Asthma, Hx Chronic Bronchitis, Hx Chronic Obstructive Pulmonary Disease (COPD), Hx Cystic Fibrosis, Hx Lung Cancer, Hx Pleural Effusion, Hx Pulmonary Edema, Hx Pulmonary Embolism, Hx Sleep Apnea, Other Respiratory Problems/Disorders GI History: Reports: Hx Ulcer Denies: Hx Cirrhosis, Hx Crohn's Disease, Hx Diverticulosis, Hx Gall Bladder Disease, Hx Gastroesophageal Reflux Disease, Hx Gastrointestinal Bleed, Hx Hiatal Hernia, Hx Irritable Bowel, Hx Jaundice, Hx Obstructive Bowel, Hx Ileostomy, Hx Pyloric Stenosis, Other GI Disorders History: Denies: Hx Acute Renal Failure, Hx Benign Prostatic Hyperplasia, Hx Chronic Renal Failure, Hx Dialysis, Hx Kidney Infection, Hx Kidney Stones, Hx Renal Disease, Other Problems/Disorders Musculoskeletal History: Denies: Hx Arthritis, Hx Back Problems, Hx Bursitis, Hx Congenital Bone Abnormalities, Hx Fibromyalgia, Hx Gout, Hx Orthopedic Injury, Hx Osteoporosis, Hx Scoliosis, Hx Tendonitis, Other Musculoskeletal History Sensory History: Reports: Hx Contacts or Glasses Denies: Hx Cataracts, Hx Eye Injury, Hx Eye Prosthesis, Hx Glaucoma, Hx Legally Blind, Hx Macular Degeneration, Hx Vision Problem, Hx Deafness, Hx Hearing Aid, Other Sensory Impairments Opthamlomology History: Reports: Hx Contacts or Glasses Denies: Hx Cataracts, Hx Eye Injury, Hx Eye Prosthesis, Hx Glaucoma, Hx Legally Blind, Hx Macular Degeneration, Hx Vision Problem, Other Sensory Impairments Neurological History: Reports: Hx Headaches, Hx Seizures Denies: Hx Dementia, Hx Developmental Delay, Hx Migraine, Hx Nerve Disease, Hx Spinal Cord Injury, Hx Transient Ischemic Attacks (TIA), Other Neuro Impairments/Disorders Psychiatric History: Reports: Hx Anxiety, Hx Depression, Hx Post Traumatic Stress Disorder, Hx Inpatient Treatment, Hx Community Mental Health Tx, Hx Bipolar Disorder, Hx of Violent Episodes Against Others, Hx Substance Abuse, Other Psychiatric Issues/Disorders Denies: Hx Attention Deficit Hyperactivity Disorder, Hx Eating Disorder, Hx Panic Disorder, Hx Schizophrenia, Hx Suicide Attempt - Surgical History Surgery Procedure, Year, and Place: none - Immunization History Date of Tetanus Vaccine: Unknown Date of Influenza Vaccine: None Infectious Disease History: No Infectious Disease History: Reports: Hx Hepatitis - Hep C Denies: Hx Clostridium Difficile, Hx Human Immunodeficiency Virus (HIV), Hx of Known/Suspected MRSA, Hx Shingles, Hx Tuberculosis, Hx Known/Suspected VRE, Hx Known/Suspected VRSA, History Other Infectious Disease, Traveled Outside the [place] in Last 30 Days - Family History Known Family History: Positive: Other - cancer Negative: Renal Disease Family History: 03-14-18: Unable to obtain family hx - Social History Alcohol Use: None Alcohol Amount: last drink 1200 today Hx Substance Use: Yes Substance Use Type: 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 Substance Use Comment - Amount & Last Used: 01/28/18 Coriciden overdose Hx Tobacco Use: Yes Smoking Status (MU): Former Smoker Type: Cigarettes Have You Smoked in the Last Year: Yes Review of Systems Constitutional: Negative Eyes: Negative ENT: Negative Positive: Palpitations - Tachycardic Respiratory: Negative Gastrointestinal: Negative Genitourinary: Negative Musculoskeletal: Negative Skin: Negative Neurological: Other - Confused s/p drug overdose (64 tablets of Corciden and cold tablets) Psychological: Other - SI All Other Systems Reviewed And Are Negative: Yes Physical Exam - Summary Physical Exam Summary: VITAL SIGNS: Reviewed. GENERAL: Patient is a well-developed and nourished (MALE) who is lying comfortable in the stretcher. Patient is not in any acute respiratory distress. HEAD AND FACE: No signs of trauma. No ecchymosis, hematomas or skull depressions. No sinus tenderness. EYES: Pupils are dilated and sluggish 4 mm bilaterally EARS: Hearing grossly intact. Ear canals and tympanic membranes are within normal limits. MOUTH: Oropharynx within normal limits. NECK: Supple, trachea is midline, no adenopathy, no JVD, no carotid bruit, no c- spine tenderness, neck with full ROM. CHEST: Symmetric, no tenderness at palpation LUNGS: Clear to auscultation bilaterally. No wheezing or crackles. CVS: Tachycardia ABDOMEN: Soft, non-tender. No signs of distention. No rebound no guarding, and no masses palpated. Bowel sounds are normal. EXTREMITIES: FROM in all major joints, no edema, no cyanosis or clubbing. NEURO: Alert and oriented x 1, Confused, PT knows his name, Motor exam is Non- focal, does not follow commands, SKIN: Dry and warm Triage Information Reviewed: Yes Vital Signs On Initial Exam: Initial Vitals Temp Pulse Resp BP Pulse Ox 98.1 F 134 20 161/126 97 03/14/18 20:40 03/14/18 20:40 03/14/18 20:40 03/14/18 20:40 03/14/18 20:40 Vital Signs Reviewed: Yes Diagnostics - Vital Signs Vital Signs Temp Pulse Resp BP Pulse Ox 03/14/18 20:40 98.1 F 134 20 161/126 97 - Laboratory Result Diagrams: 03/14/18 21:46 03/14/18 21:46 Lab Statement: Any lab studies that have been ordered have been reviewed, and results considered in the medical decision making process. - EKG 2127 EKG Rhythm: Sinus Tachycardia - 139 bpm EKG Interpretation: Normal axis and no ischemic changes at 2128 Altered Mental Statu Course/Dx - Course Course Of Treatment: [place] [facility] [place] with a chief complaint of a drug overdose. Pt reportedly took 64 tablets of coricidin and cold tablets. The pt is confused and upon intervention alert and orientated 1x. The pt will be admitted [place] [facility] with a dx of Antihistamine overdose. We discussed pt with Dr. Boswell and he accepts pt care. - Diagnoses Provider Diagnoses: Antihistamines overdose - Provider Notifications Discussed Care Of Patient With: Adolph Boswell - We discussed pt care Discharge - Sign-Out/Discharge Documenting (check all that apply): Patient Departure - [place] [facility] [place] Discharge Plan Condition: Stable Disposition: ADMITTED TO [facility] Referrals: No Primary Care Phys,NOPCP [Primary Care Provider] - - Attestation Statements Document Initiated by Scribe: Yes Documenting Scribe: Roland Ward Provider For Whom Scribe is Documenting (Include Credential): Dr. Christa Villarreal Scriblissy Attestation: Roland Brunner scribed for Dr. Christa Villarreal on 03/14/18 at 2238.
[2018-03-14 22:03] LABS: ABS Basophils 0.1 10^3/ul (0-0.2); ABS Eosinophils 0.1 10^3/ul (0-0.6); ABS Lymphocytes 3.2 10^3/ul (1.0-4.8); ABS Monocytes 1.1 10^3/ul (0-0.8); ABS Neutrophils 10.5 10^3/ul (1.5-7.7); ABS Nucleated RBC 0.1 10^3/ul; Eosinophil % 0.8 % (0-6); Hematocrit 48 % (42-52); Lymphocyte % 21.1 % (25-47); Mean Corpuscular HGB Conc 34 g/dl (31-36); Mean Corpuscular Hemoglobin 29 pg (27-31); Mean Corpuscular Volume 86 fL (80-94); Mean Platelet Volume 8.5 um3 (7.4-10.4); Nucleated Red Blood Cells % 0.3; Platelet Count 288 10^3/ul (150-450); Red Blood Count 5.54 10^6/ul (4.00-5.40); Red Cell Distribution Width 13 % (10.5-15)
[2018-03-14 22:22] LABS: EGFR Non-African American 84.1 (>60)
[2018-03-14] MEDS ORDERED: Ondansetron ODT TAB* 4 MG PO PRN (23:23)
[2018-03-14] MEDS ORDERED: Acetaminophen SUPP* 650 MG SUPP PR PRN (23:23)
--- NOTE | 2018-03-14 23:27 | HP ---
H&P (Free Text) History and Physical: PCP: none Date/Time: 03/14/2018 2300 CC: delirium 2nd ingestion HPI: Mr Angeles is a 28YO male HX numerous, numerous coricidin overdoses who was admitted 03/09/2018 for OD subsequently discharged at 1600 03/10/2018 and readmitted 199903/10/2018 for same. He returns tonight for same. He is lying in bed apparently hallucinating and fidgety, but not aggressive or agitated. He does not answer questions. He reported suicidal ideation to ED upon arrival and admitted to taking 64 pills of coricidin this evening at 1940 and was brought in by private car. No family or visitor are currently present. Labs are notable for WBCs of 15k, lactic acid 2.7, TSH 9.94. Salicylates, acetaminophen, & alcohol are undetectable. QTc is 446. He is tachycardic in the 130s, hypertensive in the 140-160s systolic. He is in no overt distress. He will be observed 1:1 in ICU and will require a psychiatric evaluation when able to participate. Prior H&P is copied below. PMedHx unable to review with patient hypothyroidism Ambulatory Orders unable to review with patient Allergies unable to review with patient PSurgHx unable to review with patient SocHx: unable to review with patient FamHx: unable to review with patient ROS: as above, otherwise reviewed and all were negative vitals: Vital Signs Temp 36.7 C 03/14/18 20:40 Pulse 132 03/14/18 21:14 Resp 20 03/14/18 21:46 BP 146/116 03/14/18 21:14 Pulse Ox 96 03/14/18 21:14 Intake & Output 03/13/18 03/14/18 03/14/18 23:59 11:59 23:59 Weight 108.862 kg Constitutional: NAD, normally developed, obese white male HEENM: atraumatic; sclera/conjunctiva: anicteric/injected B; hearing: unable to assess; oropharynx: clear, mucosa tacky Neck: soft tissue: no nuchal rigidity; thyroid: non-tender Pulmonary: clear to auscultation bilaterally, good aeration, no accessory muscle use CV: TR/RR, normal S1S2, no carotid bruit, no jugular venous distention, 2+ B DP/ PT, no edema Abdominal: soft, non-distended, non-tender, no rebound/guarding/rigidity, normoactive bowel sounds, no hepatosplenomegaly or masses, no costovertebral angle tenderness Musculoskeletal: general: intact, non-tender Integumental: normal appearance and texture of exposed skin Psychiatric orientation: AA & confused affect: fidgety mood: acquiescent eye contact: poor content: absent, does not answer questions responses: absent insight: poor Testing: Lab Results 03/14/18 03/14/18 03/14/18 Range/Units 21:46 21:46 21:46 WBC 15.0 H (3.5-10.8) 10^3/ul RBC 5.54 H (4.00-5.40) 10^6/ul Hgb 16.0 (14.0-18.0) g/dl Hct 48 (42-52) % MCV 86 (80-94) fL MCH 29 (27-31) pg MCHC 34 (31-36) g/dl RDW 13 (10.5-15) % Plt Count 288 (150-450) 10^3/ul MPV 8.5 (7.4-10.4) um3 Neut % (Auto) 69.9 (38-83) % Lymph % (Auto) 21.1 L (25-47) % Oliver % (Auto) 7.6 H (0-7) % Eos % (Auto) 0.8 (0-6) % Baso % (Auto) 0.6 (0-2) % Absolute Neuts (auto) 10.5 H (1.5-7.7) 10^3/ul Absolute Lymphs (auto) 3.2 (1.0-4.8) 10^3/ul Absolute Monos (auto) 1.1 H (0-0.8) 10^3/ul Absolute Eos (auto) 0.1 (0-0.6) 10^3/ul Absolute Basos (auto) 0.1 (0-0.2) 10^3/ul Absolute Nucleated RBC 0.1 10^3/ul Nucleated RBC % 0.3 Sodium 137 (135-145) mmol/L Potassium 3.9 (3.5-5.0) mmol/L Chloride 105 (101-111) mmol/L Carbon Dioxide 21 L (22-32) mmol/L Anion Gap 11 (2-11) mmol/L BUN 14 (6-24) mg/dL Creatinine 1.05 (0.67-1.17) mg/dL Est GFR ( Amer) 101.8 (>60) Est GFR (Non-Af Amer) 84.1 (>60) BUN/Creatinine Ratio 13.3 (8-20) Glucose 78 (70-100) mg/dL Lactic Acid 2.7 H* (0.5-2.0) mmol/L Calcium 10.2 (8.6-10.3) mg/dL Total Bilirubin 0.30 (0.2-1.0) mg/dL AST 23 (13-39) U/L ALT 29 (7-52) U/L Alkaline Phosphatase 81 (34-104) U/L Total Creatine Kinase 188 (10-223) U/L Total Protein 8.1 (6.4-8.9) g/dL Albumin 5.0 (3.2-5.2) g/dL Globulin 3.1 (2-4) g/dL Albumin/Globulin Ratio 1.6 (1-3) TSH 9.94 H (0.34-5.60) mcIU/mL Salicylates < 2.50 (<30) mg/dL Acetaminophen < 15 mcg/mL Serum Alcohol < 10 (<10) mg/dL ECG, personally reviewed: sinus tachycardia rate 139, no ischemia Impression: 28M HX recurrent coricidin OD presents with same DIAGNOSIS & PLAN Primary AMS 2nd presumed coricidin OD : ICU monitoring : Q6H ECGs to monitor QTc : supplemental oxygen : will need psychiatry evaluation when able to participate : poison control consulted be ED : suicide precautions : supportive care SIRS suspect 2nd coricidin OD : given piperacillin/tazobactam x1 dose : check UA, blood CX, & procalcitonin : IVFs : will hold further ABX pending blood CXs & temp/WBC curve monitoring latic acidosis 2nd coricidin OD : seizure precautions : IVFs, trend Secondary : continue levothyroxine once able to pass a bedside swallowing evaluation Admission Rational: Inpatient as without the above interventions the risk of impending adverse outcome is unacceptably high; inappropriate for the outpatient setting DVTp: GIANNI Code Status: full Critical Care time: 35minutes with >50% spent at the bedside obtaining a history , performing the examination, advising of diagnosis & treatment options along with risks/benefits/reasoning; remainder spent discussing with ER MD, reviewing labs and radiology exams, performing documentation PCP: none Date/Time: 03/10/2018 2200 CC: altered mental status HPI: Mr Angeles is a 28YO male well known to the hospitalist service due to recurrent coricidin abuse. He was observed 03/09 - 03/10/2018 for an overdose and discharged today ~1600. Subsequently an ED office automation technician was on break walking the grounds and found him in the garden area behaving bizarrely at ~2000 and therefore contacted security. He was then witnessed to have a brief generalized seizure in triage and required supplemental oxygenation to maintain an saO2 in the mid-90s. He is currently lethargic and unable to provide a reliable history. He does admit to taking more coricidin and drinking beer, but cannot explain how he left the hospital grounds or returned. He does meet SIRS criteria , but no infectious source is identified. His baseline heart rhythm is tachycardia and he was febrile to 38.8C. His H&P from 03/09/2018 is reviewed and copied below. PMedHx, PSurgHx, SocHx, &FamHx: currently unobtainable/unconfirmable Ambulatory Orders Levothyroxine TAB* [Synthroid 150 MCG TAB*] 150 mcg PO DAILY 03/09/18 Nicotine PATCH 21 MG/24 HR* 21 mg TRANSDERM DAILY 03/09/18 hydrOXYzine HCL TAB* [Atarax TAB 50 MG *] 50 mg PO TID PRN 03/09/18 Allergies No Known Allergies Allergy (Verified 01/28/18 14:43) ROS: as above, otherwise reviewed and all were negative vitals: Vital Signs Temp 37.7 C 03/10/18 21:00 Pulse 120 03/10/18 21:03 Resp 22 03/10/18 21:03 BP 137/87 03/10/18 21:03 Pulse Ox 98 03/10/18 21:03 Intake & Output 03/09/18 03/10/18 03/10/18 23:59 11:59 23:59 Intake Total 1100 Output Total 900 Balance 200 Weight 120.202 kg Intake: IV Fluids 1100 Output: James 900 Constitutional: NAD, normally developed, obese white male HEENM: atraumatic; sclera/conjunctiva: anicteric/clear; hearing: unable to accurately assess; oropharynx: clear, mucosa dry Neck: soft tissue: non-tender; thyroid: normal Pulmonary: clear to auscultation bilaterally, good aeration, no accessory muscle use CV: TR/RR, normal S1S2, no carotid bruit, no jugular venous distention, 2+ B DP/ PT, no edema Abdominal: soft, non-distended, non-tender, no rebound/guarding/rigidity, normoactive bowel sounds, no hepatosplenomegaly or masses, no costovertebral angle tenderness Musculoskeletal: general: grossly intact, non-tender Integumental: normal appearance and texture of exposed skin Psychiatric orientation: lethargic but rousable, oriented to person & place only affect: somnolent mood: acquiescent eye contact: poor content: unreliable responses: mildly slowed insight: poor Testing: Lab Results 03/10/18 03/10/18 03/10/18 Range/Units 20:37 20:37 20:37 WBC 16.9 H (3.5-10.8) 10^3/ul RBC 5.24 (4.00-5.40) 10^6/ul Hgb 15.0 (14.0-18.0) g/dl Hct 48 (42-52) % MCV 91 (80-94) fL MCH 29 (27-31) pg MCHC 31 (31-36) g/dl RDW 14 (10.5-15) % Plt Count 302 (150-450) 10^3/ul MPV 8.8 (7.4-10.4) um3 Neut % (Auto) 48.1 (38-83) % Lymph % (Auto) 38.3 (25-47) % Oliver % (Auto) 10.5 H (0-7) % Eos % (Auto) 2.6 (0-6) % Baso % (Auto) 0.5 (0-2) % Absolute Neuts (auto) 8.2 H (1.5-7.7) 10^3/ul Absolute Lymphs (auto) 6.5 H (1.0-4.8) 10^3/ul Absolute Monos (auto) 1.8 H (0-0.8) 10^3/ul Absolute Eos (auto) 0.4 (0-0.6) 10^3/ul Absolute Basos (auto) 0.1 (0-0.2) 10^3/ul Absolute Nucleated RBC 0 10^3/ul Nucleated RBC % 0.1 ESR 11 (0-14) mm/Hr Hem Pathologist Commnt Pending INR (Anticoag Therapy) 1.14 H (0.77-1.02) APTT 29.0 (26.0-36.3) seconds Fibrinogen 347.9 (110.8-404.3) mg/dL ABG pH (7.35-7.45) ABG pCO2 (35-45) mmHg ABG pO2 (80-100) mmHg ABG HCO3 (19-31) mmol/L ABG O2 Saturation (95-98) % ABG Base Excess (-2.0-2.0) Sodium 147 H (135-145) mmol/L Potassium 2.8 L (3.5-5.0) mmol/L Chloride 111 (101-111) mmol/L Carbon Dioxide 13 L* (22-32) mmol/L Anion Gap 23 H (2-11) mmol/L BUN 18 (6-24) mg/dL Creatinine 1.21 H (0.67-1.17) mg/dL Est GFR ( Amer) 86.4 (>60) Est GFR (Non-Af Amer) 71.4 (>60) BUN/Creatinine Ratio 14.9 (8-20) Glucose 124 H (70-100) mg/dL Lactic Acid (0.5-2.0) mmol/L Calcium 9.9 (8.6-10.3) mg/dL Magnesium 2.0 (1.9-2.7) mg/dL Total Bilirubin 0.40 (0.2-1.0) mg/dL AST 23 (13-39) U/L ALT 34 (7-52) U/L Alkaline Phosphatase 72 (34-104) U/L Total Creatine Kinase 144 (10-223) U/L Troponin I 0.00 (<0.04) ng/mL C-Reactive Protein 9.70 H (<8.01) mg/L B-Natriuretic Peptide ( - 100) pg/mL Total Protein 8.0 (6.4-8.9) g/dL Albumin 4.9 (3.2-5.2) g/dL Globulin 3.1 (2-4) g/dL Albumin/Globulin Ratio 1.6 (1-3) Procalcitonin (<0.6) ng/mL Urine Color Urine Appearance Urine pH (5-9) Ur Specific [place] (1.010-1.030) Urine Protein (Negative) Urine Ketones (Negative) Urine Blood (Negative) Urine Nitrate (Negative) Urine Bilirubin (Negative) Urine Urobilinogen (Negative) Ur Leukocyte Esterase (Negative) Urine Glucose (Negative) Salicylates < 2.50 (<30) mg/dL Acetaminophen Pending Blood Type Antibody Screen 03/10/18 03/10/18 03/10/18 Range/Units 20:37 20:37 20:37 WBC (3.5-10.8) 10^3/ul RBC (4.00-5.40) 10^6/ul Hgb (14.0-18.0) g/dl Hct (42-52) % MCV (80-94) fL MCH (27-31) pg MCHC (31-36) g/dl RDW (10.5-15) % Plt Count (150-450) 10^3/ul MPV (7.4-10.4) um3 Neut % (Auto) (38-83) % Lymph % (Auto) (25-47) % Oliver % (Auto) (0-7) % Eos % (Auto) (0-6) % Baso % (Auto) (0-2) % Absolute Neuts (auto) (1.5-7.7) 10^3/ul Absolute Lymphs (auto) (1.0-4.8) 10^3/ul Absolute Monos (auto) (0-0.8) 10^3/ul Absolute Eos (auto) (0-0.6) 10^3/ul Absolute Basos (auto) (0-0.2) 10^3/ul Absolute Nucleated RBC 10^3/ul Nucleated RBC % ESR (0-14) mm/Hr Hem Pathologist Commnt INR (Anticoag Therapy) (0.77-1.02) APTT (26.0-36.3) seconds Fibrinogen (110.8-404.3) mg/dL ABG pH (7.35-7.45) ABG pCO2 (35-45) mmHg ABG pO2 (80-100) mmHg ABG HCO3 (19-31) mmol/L ABG O2 Saturation (95-98) % ABG Base Excess (-2.0-2.0) Sodium (135-145) mmol/L Potassium (3.5-5.0) mmol/L Chloride (101-111) mmol/L Carbon Dioxide (22-32) mmol/L Anion Gap (2-11) mmol/L BUN (6-24) mg/dL Creatinine (0.67-1.17) mg/dL Est GFR ( Amer) (>60) Est GFR (Non-Af Amer) (>60) BUN/Creatinine Ratio (8-20) Glucose (70-100) mg/dL Lactic Acid 16.7 H* (0.5-2.0) mmol/L Calcium (8.6-10.3) mg/dL Magnesium (1.9-2.7) mg/dL Total Bilirubin (0.2-1.0) mg/dL AST (13-39) U/L ALT (7-52) U/L Alkaline Phosphatase (34-104) U/L Total Creatine Kinase (10-223) U/L Troponin I (<0.04) ng/mL C-Reactive Protein (<8.01) mg/L B-Natriuretic Peptide 72 ( - 100) pg/mL Total Protein (6.4-8.9) g/dL Albumin (3.2-5.2) g/dL Globulin (2-4) g/dL Albumin/Globulin Ratio (1-3) Procalcitonin < 0.1 (<0.6) ng/mL Urine Color Urine Appearance Urine pH (5-9) Ur Specific [place] (1.010-1.030) Urine Protein (Negative) Urine Ketones (Negative) Urine Blood (Negative) Urine Nitrate (Negative) Urine Bilirubin (Negative) Urine Urobilinogen (Negative) Ur Leukocyte Esterase (Negative) Urine Glucose (Negative) Salicylates (<30) mg/dL Acetaminophen Blood Type Antibody Screen 03/10/18 03/10/18 03/10/18 Range/Units 20:37 21:05 21:12 WBC (3.5-10.8) 10^3/ul RBC (4.00-5.40) 10^6/ul Hgb (14.0-18.0) g/dl Hct (42-52) % MCV (80-94) fL MCH (27-31) pg MCHC (31-36) g/dl RDW (10.5-15) % Plt Count (150-450) 10^3/ul MPV (7.4-10.4) um3 Neut % (Auto) (38-83) % Lymph % (Auto) (25-47) % Oliver % (Auto) (0-7) % Eos % (Auto) (0-6) % Baso % (Auto) (0-2) % Absolute Neuts (auto) (1.5-7.7) 10^3/ul Absolute Lymphs (auto) (1.0-4.8) 10^3/ul Absolute Monos (auto) (0-0.8) 10^3/ul Absolute Eos (auto) (0-0.6) 10^3/ul Absolute Basos (auto) (0-0.2) 10^3/ul Absolute Nucleated RBC 10^3/ul Nucleated RBC % ESR (0-14) mm/Hr Hem Pathologist Commnt INR (Anticoag Therapy) (0.77-1.02) APTT (26.0-36.3) seconds Fibrinogen (110.8-404.3) mg/dL ABG pH 7.31 L (7.35-7.45) ABG pCO2 36 (35-45) mmHg ABG pO2 100 (80-100) mmHg ABG HCO3 19.1 (19-31) mmol/L ABG O2 Saturation 97.8 (95-98) % ABG Base Excess -7.4 L (-2.0-2.0) Sodium (135-145) mmol/L Potassium (3.5-5.0) mmol/L Chloride (101-111) mmol/L Carbon Dioxide (22-32) mmol/L Anion Gap (2-11) mmol/L BUN (6-24) mg/dL Creatinine (0.67-1.17) mg/dL Est GFR ( Amer) (>60) Est GFR (Non-Af Amer) (>60) BUN/Creatinine Ratio (8-20) Glucose (70-100) mg/dL Lactic Acid (0.5-2.0) mmol/L Calcium (8.6-10.3) mg/dL Magnesium (1.9-2.7) mg/dL Total Bilirubin (0.2-1.0) mg/dL AST (13-39) U/L ALT (7-52) U/L Alkaline Phosphatase (34-104) U/L Total Creatine Kinase (10-223) U/L Troponin I (<0.04) ng/mL C-Reactive Protein (<8.01) mg/L B-Natriuretic Peptide ( - 100) pg/mL Total Protein (6.4-8.9) g/dL Albumin (3.2-5.2) g/dL Globulin (2-4) g/dL Albumin/Globulin Ratio (1-3) Procalcitonin (<0.6) ng/mL Urine Color Yellow Urine Appearance Cloudy Urine pH 5.0 (5-9) Ur Specific [place] 1.014 (1.010-1.030) Urine Protein Negative (Negative) Urine Ketones Negative (Negative) Urine Blood Negative (Negative) Urine Nitrate Negative (Negative) Urine Bilirubin Negative (Negative) Urine Urobilinogen Negative (Negative) Ur Leukocyte Esterase Negative (Negative) Urine Glucose Negative (Negative) Salicylates (<30) mg/dL Acetaminophen Blood Type A Positive Antibody Screen Negative ECG, personally reviewed: sinus tachycardia rate 138, no ischemia CXR, personally reviewed: poor inspiratory effort, no acute process Impression: 28YO male HX Coricidin abuse presents with altered mental status presumed 2nd to same DIAGNOSIS & PLAN Primary AMS 2nd presumed coricidin OD : ICU monitoring : Q6H ECGs to monitor QTc : supplemental oxygen : social contact worker consult : poison control consulted be ED : supportive care SIRS suspect 2nd seizure, baseline tachycardia, & coricidin OD : given piperacillin/tazobactam in ED : IVFs : will hold further ABX pending blood CXs & temp/WBC curve monitoring latic acidosis 2nd seizure : seizure precautions : IVFs, trend hypoKalemia : replace & recheck Secondary : continue levothyroxine once able to pass a bedside swallowing evaluation Admission Rational: Inpatient as without the above interventions the risk of impending adverse outcome is unacceptably high; inappropriate for the outpatient setting DVTp: GIANNI Code Status: full Critical Care time: 35minutes with >50% spent at the bedside obtaining a history , performing the examination, advising of diagnosis & treatment options along with risks/benefits/reasoning; remainder spent discussing with ER MD, reviewing labs and radiology exams, performing documentation History & Physical Patient: MADONNA ANGELES /Age: 09 1990 28 Medical Record#: [id number] Admission Date: 03/09/18 Provider: Jeaneth SARMIENTO CC: Behavioral Health Unit ADMISSION HISTORY AND PHYSICAL: DATE OF ADMISSION: 03/09/18 PATIENT OF ADMITTING HOSPITALIST: Dr. Bruce Palacio. PRIMARY CARE PROVIDER: The patient does not have a primary care provider. CHIEF COMPLAINT: Drug overdose. HISTORY OF PRESENT ILLNESS: Mr. Angeles is a 28-year-old gentleman with past medical history significant for polysubstance abuse, depression, psychiatric disorder with suicidal ideation, also he has a history of hepatitis C, hypothyroidism with multiple admission of overdose most recently back on . The patient was discharged from the hospital towards the end of January and was transferred to a rehab facility known as [facility] in [facility]. He tells me that he was "graduated" from rehab about 3 days ago and returned to [facility]. He did not return to live with his mother and does not have any current residency at this time, so he lived in the streets. He was brought to the emergency room earlier today with suicidal ideation after he took 48 tablets of Coricidin cough medicine that he bought from a local pharmacy. The patient notes that he took all these tablets earlier this morning and had some orange juice with it. He denied any abdominal pain, nausea, vomiting, chest pain, palpitation, dizziness, headache or syncope. He was brought by the EMS staff and upon arrival he was a little drowsy; however, he was alert upon questioning and oriented to time and place and person as well. The patient had the exact similar presentation about 5 weeks ago for which Poison Control was contacted back then and recommended to observe the patient, give him benzodiazepines as needed for agitation, and to obtain a mental health evaluation again. The patient denied having any seizures on that admission or in the last month. He had laboratory workup in the emergency room that revealed normal CBC, normal chemistry, and his urine toxicology was positive for phencyclidine. PAST MEDICAL HISTORY: As mentioned above, significant for: 1. Multiple episodes of polysubstance abuse and overdose. 2. Coricidin dependence. 3. Alcohol use disorder. 4. Tobacco use disorder. 5. Antisocial personality traits. 6. Hepatitis C. 7. Hypothyroidism. PAST SURGICAL HISTORY: None. CURRENT MEDICATIONS: His medications at home include: 1. Atarax 50 mg p.o. t.i.d. as needed for anxiety. 2. Synthroid 150 mcg p.o. daily. 3. Nicotine patch 21 mg transdermal daily and remove patch after 12 hours. ALLERGIES: He has no known drug allergies. FAMILY HISTORY: Noncontributory. SOCIAL HISTORY: The patient is homeless. He is a former smoker, who also abused other substance including Coricidin. His surrogate decision maker is his aunt, Margaret Ortiz, whose phone number [phone]. He wishes to be a full code. REVIEW OF SYSTEMS: See HPI. Otherwise, 12-point review of systems were examined and they were essentially negative. PHYSICAL EXAMINATION GENERAL: He is a healthy-appearing, young male, in no acute distress or discomfort at the time of admission. VITAL SIGNS: Reveal a temperature of 98.7, pulse of 110, blood pressure 141/91 , respirations of 13 with O2 sats of 95% on room air. HEENT: Head is normocephalic, atraumatic. Sclerae anicteric. PERRLA. EOMs intact. Oropharynx is pink and moist. NECK: Supple. Trachea midline. No cervical adenopathy or thyromegaly. LUNGS: Clear to auscultation bilaterally. HEART: Regular rate and rhythm. Normal S1 and S2 without rubs, murmurs or gallops. BACK: With normal curvature, no CVA tenderness. ABDOMEN: Soft, nontender, and nondistended. No hernias, masses or hepatosplenomegaly. Bowel sounds were normoactive in all quadrant. EXTREMITIES: Without cyanosis, clubbing or edema. RECTAL: Exam deferred at this time. NEUROLOGIC: He is awake, alert, and oriented x3. The patient is cooperative and mood is appropriate. His tongue is midline. Handgrip is equal bilaterally and sensation is intact throughout. DIAGNOSTIC STUDIES/LAB DATA: Laboratory workup: CBC with white count of 13,000 , hemoglobin 14.7, hematocrit 44, and platelets 241. Chemistry panel essentially within normal limits, sodium 140, potassium 3.6, chloride 110, CO2 of 22, BUN of 10, and creatinine of 1. LFTs, glucose, TSH all within normal limits. Urine toxicology positive for phencyclidine and negative for salicylates and acetaminophen. IMPRESSION: A 28-year-old male with past medical history of polysubstance abuse including Coricidin dependence, alcohol use disorder as well as tobacco use, and antisocial personality as well as psychiatric disorder, who presented to the emergency room with another episode of drug overdose. The patient denies any suicidal or homicidal ideation at the time of admission despite taken 48 pills of Coricidin earlier today. The patient will be admitted for observation for the following: ASSESSMENT AND PLAN: 1. Substance abuse and drug overdose. The patient will be observed at the telemetry unit. Based on prior experience with Poison Control, who recom- mended observe him at telemetry and give him IV fluid as well as benzodia- zepines as needed for symptomatic management of anxiety or agitation. I will monitor his lactic acid tonight and repeat it again tomorrow morning and hydrate him and put him back on regular diet. I have called and requested a mental health evaluation to be performed this weekend and he will be seen tomorrow. For the time being, he will continue one-on-one observation and monitor. 2. Hypothyroidism. I will continue his levothyroxine. 3. DVT prophylaxis. The patient is a low risk and will have SCDs while in bed and also will ambulate as tolerated. 4. Code status. He is a full code. TIME SPENT: Approximately 50 minutes were spent admitting this patient for which greater than 50% were taking history and performing physical exam. I went on and discussed the case with my attending, who agreed to plan of care and will follow him up accordingly. GUILLERMINA LOREDO [id number]/[facility] #: [id number] Jeaneth SARMIENTO Dictated Date/Time: 03/09/181730 Transcribed Date/Time 03/09/181938 Copy to: CC: Jeaneth SARMIENTO This report is only to be considered final once signed by the Provider(s) as displayed in the "<Electronically Signed by >" field (s). Absence of a signature indicates the report is in a draft status and still needs to be finalized. In the event this document was created by someone other than the signing Provider, the individual initiating the document will be listed in the "Entered by:" or "Dictated by:" francois.
[2018-03-15] MEDS ORDERED: Piperacillin/Tazobac ADVAN(*) 3.375 GM in NS 0.9% 100 ML* 100 ML IVPB ONE (00:30)
[2018-03-15 01:25] LABS: Urine Appearance Clear; Urine Blood Negative (Negative); Urine Color Straw; Urine Ketones Negative (Negative); Urine Protein Negative (Negative); Urine Specific Gravity 1.004 (1.010-1.030); Urine Urobilinogen Negative (Negative)
[2018-03-15] MEDS: NS 0.9% 1000 ML* 1,000 ML IV SCH ×2 (01:57→10:33)
[2018-03-15] MEDS ORDERED: LORazepam INJ* 2 MG/ML 1 ML VIAL IV PRN (02:35)
[2018-03-15] MEDS ORDERED: LORazepam INJ* 2 MG/ML 1 ML VIAL ONE (02:57)
[2018-03-15 05:21] LABS: ABS Basophils 0.1 10^3/ul (0-0.2); ABS Eosinophils 0.2 10^3/ul (0-0.6); ABS Lymphocytes 2.8 10^3/ul (1.0-4.8); ABS Monocytes 0.8 10^3/ul (0-0.8); ABS Neutrophils 6.3 10^3/ul (1.5-7.7); ABS Nucleated RBC 0 10^3/ul; Eosinophil % 1.6 % (0-6); Hematocrit 44 % (42-52); Lymphocyte % 27.2 % (25-47); Mean Corpuscular HGB Conc 34 g/dl (31-36); Mean Corpuscular Hemoglobin 29 pg (27-31); Mean Corpuscular Volume 86 fL (80-94); Mean Platelet Volume 8.3 um3 (7.4-10.4); Nucleated Red Blood Cells % 0; Platelet Count 233 10^3/ul (150-450); Red Blood Count 5.16 10^6/ul (4.00-5.40); Red Cell Distribution Width 13 % (10.5-15); White Blood Count 10.1 10^3/ul (3.5-10.8)
[2018-03-15 05:39] LABS: EGFR Non-African American 93.3 (>60)
--- NOTE | 2018-03-15 07:37 | PN ---
Subjective Date of Service: 03/15/18 Interval History: Pt states he is feeling ok. He states he does not want to speak to psychiatry today but I have explained that as he stated he OD'ed in an attempt to harm himself the psychiatry consult in required. He reluctantly agrees. He states he wants to be discharged today so he can go to [place] to get away from [place] and everyone that knows him and all of the "shenanigans" he has pulled. He denies any pain or SOB. Objective Active Medications: Acetaminophen (Tylenol Supp*) 650 mg NM Q6H PRN PRN Reason: FEVER/PAIN Sodium Chloride (Ns 0.9% 1000 Ml*) 1,000 mls @ 125 mls/hr IV PER RATE KHRIS Last Admin: 03/15/18 01:57 Dose: 125 mls/hr Lorazepam (Ativan Inj*) 1 mg IV Q4H PRN PRN Reason: AGITATION Last Admin: 03/15/18 06:57 Dose: 1 mg Ondansetron HCl (Zofran Odt Tab*) 4 mg PO Q6H PRN PRN Reason: n/v Vital Signs - 8 hr 03/14/18 03/14/18 03/14/18 23:44 23:51 23:55 Temperature 99.9 F Pulse Rate 128 134 126 Respiratory 29 33 24 Rate Blood Pressure 132/90 131/70 (mmHg) O2 Sat by Pulse 97 96 97 Oximetry 03/15/18 03/15/18 03/15/18 00:00 00:05 00:06 Temperature 99.9 F Pulse Rate Respiratory 22 Rate Blood Pressure (mmHg) O2 Sat by Pulse 96 Oximetry 03/15/18 03/15/18 03/15/18 00:12 00:14 00:15 Temperature Pulse Rate 129 126 128 Respiratory 18 24 21 Rate Blood Pressure 133/107 131/70 129/88 (mmHg) O2 Sat by Pulse 95 97 96 Oximetry 03/15/18 03/15/18 03/15/18 00:30 00:45 00:48 Temperature 98.2 F Pulse Rate 125 128 128 Respiratory 27 24 29 Rate Blood Pressure 134/92 138/90 132/90 (mmHg) O2 Sat by Pulse 95 95 96 Oximetry 03/15/18 03/15/18 03/15/18 01:00 01:15 01:30 Temperature Pulse Rate 115 114 110 Respiratory 24 25 27 Rate Blood Pressure 127/85 128/87 124/87 (mmHg) O2 Sat by Pulse 96 97 96 Oximetry 03/15/18 03/15/18 03/15/18 02:00 02:01 02:30 Temperature Pulse Rate 111 110 Respiratory 29 26 21 Rate Blood Pressure 129/86 126/88 (mmHg) O2 Sat by Pulse 97 97 Oximetry 03/15/18 03/15/18 03/15/18 03:00 03:01 03:03 Temperature 99.2 F Pulse Rate 113 Respiratory 26 24 Rate Blood Pressure 138/95 (mmHg) O2 Sat by Pulse 97 Oximetry 03/15/18 03/15/18 03/15/18 03:30 04:00 04:30 Temperature Pulse Rate 106 103 99 Respiratory 21 23 26 Rate Blood Pressure 125/93 121/87 128/93 (mmHg) O2 Sat by Pulse 92 97 95 Oximetry 03/15/18 03/15/18 03/15/18 05:00 06:00 06:57 Temperature Pulse Rate 98 95 Respiratory 23 17 22 Rate Blood Pressure 128/87 113/83 (mmHg) O2 Sat by Pulse 96 96 Oximetry Oxygen Devices in Use Now: None Appearance: Young disheveled appearing male sitting up in bed, NAD Eyes: No Scleral Icterus Ears/Nose/Mouth/Throat: Mucous Membranes Moist Respiratory: Symmetrical Chest Expansion and Respiratory Effort, Clear to Auscultation Cardiovascular: NL Sounds; No Murmurs; No JVD, No Edema, - - slightly tachycardic but regular Abdominal: NL Sounds; No Tenderness; No Distention Extremities: No Clubbing, Cyanosis Skin: No Rash or Ulcers Neurological: Alert and Oriented x 3 Result Diagrams: 03/15/18 05:07 03/15/18 05:07 Assess/Plan/Problems-Billing Mr Angeles is a 28 yo M well known to the hospitalist service for repeated admission for coricidin overdoses who presented to the ER with c/o coricidin and PCP overdose in an attempt to harm himself. - Patient Problems (1) Overdose Current Visit: Yes Status: Acute Code(s): T50.901A - POISONING BY UNSP DRUG/ MEDS/BIOL SUBST, ACCIDENTAL, INIT SNOMED Code(s): 88471170 Comment: Pt's VS are stable. He is no longer hallucinating from the PCP. As the patient stated the OD was an attempt to harm himself will get psychiatry consult today. Transfer to the medical floor. 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 (2) DVT prophylaxis Current Visit: Yes Status: Acute Code(s): YWP4736 - SNOMED Code(s): 493215800 Comment: Ambulation (3) Full code status Current Visit: Yes Status: Acute Code(s): Z78.9 - OTHER SPECIFIED HEALTH STATUS SNOMED Code(s): 264366626
[2018-03-15] MEDS: LORazepam TAB(*) 1 MG PO PRN ×2 (11:16→17:22)
--- NOTE | 2018-03-15 14:57 | CONSULT ---
Consult Consult: Psychiatry asked to see patient due to intentional overdose and suicidal statements. Patient was seen by show card writer along with supervising psychiatrist, Dr Madrigal. HPI: Patient reports desire to return to [place] and to engage in recovery efforts. Patient states he returned to [place] this week after being transported to [place] per discharge plan on 03/12/18. He states he was concerned about his parents, especially his mother who's brother recently . He states he is struggling with gender identity and hopes to return to [place] and identify as "Siria." He recalls being supported as Siria while living in [place] in the past. Patient denies suicidal ideation, passive wish or urges for self harm. PAST PSYCHIATRIC HISTORY: Patient has a significant history of ED visits and ICU /BSU admissions and various hospitals in [place]. He has multiple failed referrals to substance use treatment, and he has a history of requesting admission with complaints of AH and suicidality in the setting of Coricidin use. He also has a history of recanting mental health symptoms and identifying that he said these things to be admitted to the hospital. Patient has been hospitalized for longer term at [facility]. He has been treated several times for rhabdomyolysis directly r/t substance use. He has been treated at [facility], [facility] and [facility] outpatient. He has been diagnosed in the past with opiate dependence, Coricidin dependence, substance-induced mood disorder, malingering and unspecified personality d/o. Past medication trials include, but are not limited to: aripiprazole, risperidone, olanzapine, sertraline, citalopram, fluoxetine, trazodone, buproprion, naltrexone, suboxone, Topamax, prazosin, lithium, Antabuse, benzodiazepines and stimulants. PAST MEDICAL HISTORY: Remarkable for hepatitis C, hypothyroidism. PAST SUICIDE AND HOMICIDE HISTORY: The patient has a history of suicide attempts and prior suicidal behaviors. He has been admitted to the ICU several times after accidental drug overdose. LEGAL HISTORY: The patient has a history of arrest on charges for petit larceny and has served time in half-way. There is no noted history of violence or aggression. FAMILY HISTORY: The patient denies. MSE: The patient is an obese, white male, who appears stated age. He is lying in bed, dressed in the hospital gown. He is wearing new glasses, is poorly groomed with a full sarkar. No psychomotor abnormal activity is noted. He is A+ Ox3. Eye contact is good. Mood is euthymic. Affect is constricted. Thought process is linear and goal directed. The patient denies auditory or visual hallucinations. He denies delusions. He denies SI or passive wish. He reports plan to return to [place], where he has lived in the past and is knowledgeable of treatment agencies. Insight and judgment are poor. Impulse control is tenuous. Fund of knowledge is adequate. IMPRESSION/RECOMMENDATIONS: Fernie is a 27yo white male with history of polysubstance use disorder who presented to ED ambulatory with reports of taking 64 tabs of Coricidin cold tablets. 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 He has an extensive history of not following through on recommendations and outpatient non-adherence. He states that he completed inpatient rehab at [facility] last month. He states he wants to return to [place] to engage in treatment. He does not meet criteria for involuntary admission to BSU. He remains with constant observation until he is discharged. He has an extensive history of not following through recommendations and outpatient nonadherence.
[2018-03-15] MEDS: Nicotine PATCH 21 MG/24 HR* PATCH TRANSDERM SCH (20:13)
[2018-03-15] MEDS ORDERED: Nicotine Patch Removal NOTE FOLLOW UP SCH (21:00)
[2018-03-16] MEDS: Nicotine PATCH 21 MG/24 HR* PATCH TRANSDERM SCH (08:20)
--- NOTE | 2018-03-16 10:40 | PN ---
Progress Note - Progress Note Date of Service: 03/16/18 Note: Time spent on discharge 40 minutes, including exam of the patient, discussion with the patient, nurse, CM, review of the EMR and preparation of discharge documents.
[2018-03-16 10:51] VITALS: BP 102/84
--- NOTE | 2018-03-16 16:26 | PN ---
Subjective - Subjective Date of Service: 03/16/18 Service Type: [id number] Hosp care 15 min low complexity Subjective: Patient seen by remote mortgage underwriter whilst he was waiting for discharge instructions. Patient denies SI or passive wish. He reports future-orientation in regards to relocating to [place]. He endorses little motivation to abstain from coricidin. He states that he plans to [facility] [place]. Objective - Appearance Appearance: Well Developed/Nourished Dysmorphic Features: No Hygiene: Normal Grooming: Fairly Well Kept - Behavior Psychomotor Activities: Normal Exhibits Abnormal Movement: No - Attitude and Relatedness Attitude and Relatedness: Superficially Cooperative Eye Contact: Fair - Speech Quality: Unpressured Latencies: Normal Quantity: Appropriate - Mood Patient's Decription of Mood: "Good" - Affect Observed Affect: Good Affect Consistent with: Euthymia - Thought Process Patient's Thought Process: Coherent, Goal Directed Thought Content: No Passive Wish, No Suicidal Planning, No Homicidal Ideation, No Paranoid Ideation - Sensorium Experiencing Hallucinations: No, Sensorium is Clear Type of Hallucinations: Visual: No, Auditory: No, Command: No - Level of Consciousness Level of Consciousness: Alert Orientation: Yes Intact, Yes Orientated to Time, Yes Orientated to Place, Yes Orientated to Person - Impulse Control Impulse Control: Tenuous - Insight and Judgement Insight and Judgement: Poor Plan - Plan Treatment Plan: Name: MADONNA Bess SARAI Birthdate: 1990 [id number] patient discharged and transported to [place] via medicaid assisted transportation.
--- NOTE | 2018-03-16 21:45 | DS ---
CC: Dr. Mathew; Dr. Barrientos, [facility] DISCHARGE SUMMARY: DATE OF ADMISSION: DATE OF DISCHARGE: 03/16/18 HISTORY OF PRESENT ILLNESS: This 28-year-old man was in the emergency room for an overdose and discharged subsequently. He was found walking in the garden area, behaving bizarrely, and security brought him back to the emergency room. He was felt to have a dextromethorphan overdose, brand name, Coricidin. He was monitored in the ICU. He did well. On the day of discharge, he was quite composed, answering appropriately. He ate breakfast well. He had no complaints. I told him he needed to comply with his medications. I suspect his TSH was elevated due to poor compliance. He did admit he did not take his medications regularly. I told him that this is important to be done on a daily basis. We will give him an appointment through [facility]. I note this patient has been admitted multiple times with the same problem. He was evaluated again by the psychiatric service. He did not quality for BSU admission. He is well aware of resources in the community that he can use. FINAL DIAGNOSES: 1. Overdose. 2. Psychiatric disorder. 3. Hypothyroidism. 4. Tobacco use disorder. DISCHARGE MEDICATIONS: 1. Nicotine patch 21 mg per day. 2. Levothyroxine 150 mcg daily. 3. Bupropion XL 150 mg daily. DISCHARGE CONDITION: stable DISCHARGE DISPOSITION: home [id number]/[facility] #: [id number] SOLO
== END 2018-03-16 12:45 | disposition home or self-care (01) | DRG 812 ==
LOC: ED 20:37 → ICU 23:20 → MED 03-15 11:06
PROVIDERS: ADMIT Hospitalist; ATTEND Internal Medicine
DX: T45.0X2A Poisoning by antiallergic and antiemetic drugs, intentional self-harm, initial encounter (principal); R65.10 Systemic inflammatory response syndrome (SIRS) of non-infectious origin without acute organ dysfunction; E87.2 Acidosis; I10 Essential (primary) hypertension; J30.2 Other seasonal allergic rhinitis; F32.9 Major depressive disorder, single episode, unspecified; F41.9 Anxiety disorder, unspecified; F43.10 Post-traumatic stress disorder, unspecified; R41.0 Disorientation, unspecified; R00.0 Tachycardia, unspecified; E66.9 Obesity, unspecified; F17.200 Nicotine dependence, unspecified, uncomplicated; E03.9 Hypothyroidism, unspecified; Z59.0 Homelessness; Y92.096 Garden or yard of other non-institutional residence as the place of occurrence of the external cause; Z86.19 Personal history of other infectious and parasitic diseases; Z80.9 Family history of malignant neoplasm, unspecified; Z87.01 Personal history of pneumonia (recurrent); Z91.14 Patient's other noncompliance with medication regimen; Z68.36 Body mass index [BMI] 36.0-36.9, adult
CPT/HCPCS: 36415; 80048; 80053; 80307; 80320; 80329; 81003; 82550; 83605; 84145; 84443; 85025; 87040; 93005; 99285; 99406; A9270-GY; G0480; J2060; J2543

== ENCOUNTER 2018-05-19 09:43 | Inpatient (IN) | payer OTHER ==
[2018-05-19] MEDS ORDERED: LORazepam INJ* 2 MG/ML 1 ML VIAL ONE (09:47)
[2018-05-19] MEDS ORDERED: LORazepam INJ* 2 MG/ML 1 ML VIAL IV ONE (09:49)
[2018-05-19] MEDS ORDERED: NS 0.9% 1000 ML* 1,000 ML IV ONE (09:49)
--- NOTE | 2018-05-19 09:54 | ED ---
Substance Abuse/Use - HPI Summary HPI Summary: Patient is a 28 y/o M brought in by ambulance for overdose. EMS reports that patient took 5500 mg of Wellbutrin, 950 mg of cold medication, and 48 tablets of Clorcedin. Patient was found unconscious in snow bank. EMS states that upon arrival, patient had good airway, good blood sugar, and good o2 sats. However, they report a diffuse body rash that has developed in hives upon arrival in ED. EMS gave decadron, .3 ml epinephrine, and 50 ml IV Benadryl. Patient is a level 5 caveat, drug overdose. Home medications and allergies are reviewed. - History Of Current Complaint Stated Complaint: OVERDOSE Hx Obtained From: EMS Hx From Patient Unobtainable Due To: Other - Patient is a level 5 caveat, drug overdose Ingestion History: Type/Name Of Drug Overdose Characteristics: Oral - EMS reports that patient took 5500 mg of Wellbutrin, 950 mg of cold medication, and 48 tablets of Clorcedin. Severity Currently: Severe Aggravating Factor(s): Nothing Alleviating Factor(s): Nothing Associated Signs And Symptoms: Other: - hives - Allergies/Home Medications Allergies/Adverse Reactions: Allergies Allergy/AdvReac Type Severity Reaction Status Date / Time No Known Allergies Allergy Verified 03/14/18 20:45 PMH/Surg Hx/FS Hx/Imm Hx Endocrine/Hematology History: Reports: Hx Thyroid Disease - Hypothyroidism Denies: Hx Anticoagulant Therapy, Hx Blood Disorders, Hx Blood Transfusions, Hx Bone Marrow Disease, Hx Diabetes, Hx Systemic Lupus Erythematosus, Hx Sickle Cell Disease, Hx Anemia, Hx Unexplained Bleeding, Other Endocrine/Hematological Disorders Cardiovascular History: Reports: Hx Hypertension Denies: Hx Aneurysm, Hx Angina, Hx Angioplasty, Hx Auto Implanted Cardiovert Defib, Hx Cardiac Arrest, Hx Cardiomegaly, Hx Congenital Heart Disease, Hx Congestive Heart Failure, Hx Coronary Artery Disease, Hx Deep Vein Thrombosis, Hx Embolism, Hx Hypercholesterolemia, Hx Hypotension, Hx Pacemaker/ICD, Hx Peripheral Vascular Disease, Hx Rheumatic Fever, Hx Syncope, Hx Valvular Heart Disease, Other Cardiovascular Problems/Disorders Respiratory History: Reports: Hx Pneumonia, Hx Seasonal Allergies Denies: Hx Asthma, Hx Chronic Bronchitis, Hx Chronic Obstructive Pulmonary Disease (COPD), Hx Cystic Fibrosis, Hx Lung Cancer, Hx Pleural Effusion, Hx Pulmonary Edema, Hx Pulmonary Embolism, Hx Sleep Apnea, Other Respiratory Problems/Disorders GI History: Reports: Hx Ulcer Denies: Hx Cirrhosis, Hx Crohn's Disease, Hx Diverticulosis, Hx Gall Bladder Disease, Hx Gastroesophageal Reflux Disease, Hx Gastrointestinal Bleed, Hx Hiatal Hernia, Hx Irritable Bowel, Hx Jaundice, Hx Obstructive Bowel, Hx Ileostomy, Hx Pyloric Stenosis, Other GI Disorders History: Denies: Hx Acute Renal Failure, Hx Benign Prostatic Hyperplasia, Hx Chronic Renal Failure, Hx Dialysis, Hx Kidney Infection, Hx Kidney Stones, Hx Renal Disease, Other Problems/Disorders Musculoskeletal History: Denies: Hx Arthritis, Hx Back Problems, Hx Bursitis, Hx Congenital Bone Abnormalities, Hx Fibromyalgia, Hx Gout, Hx Orthopedic Injury, Hx Osteoporosis, Hx Scoliosis, Hx Tendonitis, Other Musculoskeletal History Sensory History: Reports: Hx Contacts or Glasses Denies: Hx Cataracts, Hx Eye Injury, Hx Eye Prosthesis, Hx Glaucoma, Hx Legally Blind, Hx Macular Degeneration, Hx Vision Problem, Hx Deafness, Hx Hearing Aid, Other Sensory Impairments Opthamlomology History: Reports: Hx Contacts or Glasses Denies: Hx Cataracts, Hx Eye Injury, Hx Eye Prosthesis, Hx Glaucoma, Hx Legally Blind, Hx Macular Degeneration, Hx Vision Problem, Other Sensory Impairments Neurological History: Reports: Hx Headaches, Hx Seizures Denies: Hx Dementia, Hx Developmental Delay, Hx Migraine, Hx Nerve Disease, Hx Spinal Cord Injury, Hx Transient Ischemic Attacks (TIA), Other Neuro Impairments/Disorders Psychiatric History: Reports: Hx Anxiety, Hx Depression, Hx Post Traumatic Stress Disorder, Hx Inpatient Treatment, Hx Community Mental Health Tx, Hx Bipolar Disorder, Hx of Violent Episodes Against Others, Hx Substance Abuse, Other Psychiatric Issues/Disorders Denies: Hx Attention Deficit Hyperactivity Disorder, Hx Eating Disorder, Hx Panic Disorder, Hx Schizophrenia, Hx Suicide Attempt - Surgical History Surgery Procedure, Year, and Place: none - Immunization History Date of Tetanus Vaccine: Unknown Date of Influenza Vaccine: None Infectious Disease History: Reports: Hx Hepatitis - Hep C Denies: Hx Clostridium Difficile, Hx Human Immunodeficiency Virus (HIV), Hx of Known/Suspected MRSA, Hx Shingles, Hx Tuberculosis, Hx Known/Suspected VRE, Hx Known/Suspected VRSA, History Other Infectious Disease - Family History Known Family History: Positive: Other - cancer Negative: Renal Disease Family History: 03-14-18: Unable to obtain family hx - Social History Alcohol Use: None Alcohol Amount: states last drink was 2 months ago Hx Substance Use: Yes Substance Use Type: 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 Substance Use Comment - Amount & Last Used: 03/14/18 Coricidin overdose Hx Tobacco Use: Yes Smoking Status (MU): Former Smoker Type: Cigarettes Have You Smoked in the Last Year: Yes Review of Systems - ROS Summary Review of Systems Summary: Patient is a level 5 caveat, drug overdose. Positive: Other - lethargic Positive: Rash, Other - hives All Other Systems Reviewed And Are Negative: No - Comments Additional Review of Systems Comments: Patient is a level 5 caveat, drug overdose. Physical Exam - Summary Physical Exam Summary: VITAL SIGNS: Reviewed. GENERAL: Patient is a well-developed and nourished male who is lying in the stretcher. Patient is not in any acute respiratory distress. HEAD AND FACE: No signs of trauma. No ecchymosis, hematomas or skull depressions. No sinus tenderness. EYES: PERRLA, EOMI x 2; dilated pupils; No injected conjunctiva, no nystagmus. EARS: Hearing grossly intact. Ear canals and tympanic membranes are within normal limits. MOUTH: Oropharynx within normal limits. No tongue swelling, no lip swelling NECK: Supple, trachea is midline, no adenopathy, no JVD, no carotid bruit, no c- spine tenderness, neck with full ROM. CHEST: Symmetric, no tenderness at palpation LUNGS: Clear to auscultation bilaterally. No wheezing or crackles. Maintains airway well CVS: Regular rate and rhythm, S1 and S2 present, no murmurs or gallops appreciated. ABDOMEN: Soft, non-tender. No signs of distention. No rebound no guarding, and no masses palpated. Bowel sounds are normal. EXTREMITIES: FROM in all major joints, no edema, no cyanosis or clubbing. NEURO: Lethargic; level 5 caveat SKIN: Dry and warm; diffuse erythema and hives all over patient's body Triage Information Reviewed: Yes Vital Signs On Initial Exam: Initial Vitals Resp 34 05/19/18 09:49 Vital Signs Reviewed: Yes Diagnostics - Laboratory Result Diagrams: 05/19/18 10:01 05/19/18 10:01 Lab Statement: Any lab studies that have been ordered have been reviewed, and results considered in the medical decision making process. - Radiology CXR Radiology Interpretation Completed By: Radiologist Summary of Radiographic Findings: IMPRESSION: LOW LUNG VOLUMES, LEFT LUNG INFILTRATE. THIS REPORT WAS REVIEWED BY ED PHYSICIAN. - EKG 0951 Cardiac Rate: Tachycardia - rate of 126 bpm EKG Rhythm: Sinus Tachycardia EKG Comparison: No Significant Change Summary of EKG Findings: EKG showed sinus tachycarida with rate of 126 BPM, similar to previous EKG taken on 03/15/18. 1054 Cardiac Rate: Tachycardia - rate of 107 bpm EKG Rhythm: Sinus Tachycardia Summary of EKG Findings: EKG showed sinus tachycardia with rate of 107 bpm, no ST elevation Re-Evaluation - Re-Evaluation First Eval Re-Evaluation Time: 09:50 Change: Unchanged Comment: Poison control was contacted with regards to patient's case by Nurse Senia. Their recommendations are as follows, per her note: "Welbutrin: Neurotoxicity with hyperreflexivity and seizure/tremor manage with benzos with titration to control. Cardio toxicity with QRS 120 widening repeat ekg hourly. Bicarb 2meQ per kilogram if it. Dextromathorphan tachycardia, seizure treat with benzos. Tox consult for decontamination." Course/Dx - Course Assessment/Plan: Patient is a 28 y/o M brought in by ambulance for overdose. EMS reports that patient took 5500 mg of Wellbutrin, 950 mg of cold medication, and 48 tablets of Coricidin. Patient was found unconscious in snow bank. EMS states that upon arrival, patient had good airway, good blood sugar, and good o2 sats. However, they report a diffuse body rash that has developed in hives upon arrival in ED. EMS gave decadron, .3 ml epinephrine, and 50 ml IV Benadryl. Patient is a level 5 caveat, drug overdose. Home medications and allergies are reviewed. In the ED course the patient was placed on a building components designer, the patient is maintaining airway therefore, the patient is not going to be intubated at this point. We will close monitoring and if needed and the patient will be intubated. The patient was a little agitated therefore the patient was given 1 mg of Ativan. Poison control called: Wellbutrin: Neurotoxicity with hyperreflexivity and seizure/tremor manage with benzos with titration to control. Cardio toxicity with QRS 120 widening repeat ekg hourly. Bicarb 2 meQ per kilogram if it. Dextromethorphan tachycardia, seizure treat with benzos. Tox consult for decontamination. Patient placed on a building components designer, patient is receiving oxygen via simple mask, he was given 1 mg of Ativan. The patient continues to maintain airway. Urinary James catheter was placed. Patient also has erythema, hives all over his body possibly secondary to an allergic reaction of unknown etiology. The patient doesn't have any swelling of the lips or tongue. EMS already gave the patient Decadron, Benadryl , and epinephrine. Blood work without any significant abnormality except for anion gap 12 creatinine 1.18, TSH 19.02. Urinalysis is negative for UTI, 2+ protein, urine toxicology positive for Phencyclidine, Amphetamines. The patient continues to maintain his airway well, saturating between 98 percent on room air. At this point I ordered an ABG and he will be follow-up by Dr. Michelle from ICU. Dr. Michelle accepted the patient for admission to the ICU. The patient is a stable but critical. - Diagnoses Differential Diagnosis/HQI/PQRI: Positive: Anxiety, Suicidal Risk Provider Diagnoses: Intentional overdose of drug in tablet form, Allergic reaction - Physician Notifications Discussed Care Of Patient With: Ralph Michelle Time Discussed With Above Provider: 10:11 Instructed by Provider To: Other - Patient's case was discussed with Dr. Michelle, Dr. Michelle accepts patient for admission, will come to ED to evaluate. - Critical Care Time Critical Care Time: 75-104 min Discharge - Sign-Out/Discharge Documenting (check all that apply): Patient Departure - admit - Discharge Plan Condition: Stable Disposition: ADMITTED TO [facility] - Billing Disposition and Condition Condition: STABLE Disposition: Admitted to [facility] - Attestation Statements Document Initiated by Mario: Yes Documenting Scribe: SHERWIN HALL Provider For Whom Mario is Documenting (Include Credential): BOBBY RICKS MD Scribe Attestation: SHERWIN Brunner , scribed for BOBBY RICKS MD on 05/19/18 at 1836. Scribe Documentation Reviewed: Yes Provider Attestation: The documentation as recorded by the SHERWIN fournier accurately reflects the service I personally performed and the decisions made by me, BOBBY RICKS MD Status of Scribe Document: Viewed
[2018-05-19 10:12] LABS: ABS Basophils 0 10^3/ul (0-0.2); ABS Eosinophils 0.1 10^3/ul (0-0.6); ABS Monocytes 0.5 10^3/ul (0-0.8); ABS Neutrophils 5.1 10^3/ul (1.5-7.7); ABS Nucleated RBC 0 10^3/ul; Eosinophil % 1.7 %; Hematocrit 44 % (42-52); Hemoglobin 14.5 g/dl (14.0-18.0); Lymphocyte % 14.1 %; Mean Corpuscular HGB Conc 33 g/dl (31-36); Mean Corpuscular Hemoglobin 28 pg (27-31); Mean Corpuscular Volume 86 fL (80-94); Mean Platelet Volume 8.2 fL (7.4-10.4); Nucleated Red Blood Cells % 0.1; Platelet Count 205 10^3/ul (150-450); Red Blood Count 5.12 10^6/ul (4.00-5.40); Red Cell Distribution Width 15 % (10.5-15); White Blood Count 6.8 10^3/ul (3.5-10.8)
[2018-05-19 10:26] LABS: Urine Appearance Clear; Urine Blood Negative (Negative); Urine Color Yellow; Urine Ketones Negative (Negative); Urine Protein 2+(100 mg/dL) (Negative); Urine Red Blood Cell Trace(0-2/hpf) (Absent); Urine Specific Gravity 1.017 (1.010-1.030); Urine Urobilinogen Negative (Negative); Urine White Blood Cell Trace(0-5/hpf) (Absent)
[2018-05-19 10:27] LABS: EGFR Non-African American 73.5 (>60)
[2018-05-19] MEDS ORDERED: hydrALAZINE IV* 20 MG/ML VIAL IV SLOW PU PRN (11:31)
--- NOTE | 2018-05-19 11:37 | HP ---
H&P (Free Text) History and Physical: History and Physical Note -- Critical Care Limitations in history/physical: delirium from overdose HPI: 28y M w/pmhx of mood disorder, multiple admissions for overdose (unclear if suicide attempts vs intentional), hypothyroidism, HepC; [place] [facility] [place] Coricidin [place] (dextromethorphan and chlorpheniramine containing). He has been evaluated for inpatient admission multiple times, has recieved treatment with outpatient medications but still has repeat episodes of admissions 2/2 to overdose. He comes in now after injesting 45+ tablets of coridine and a whole bottle of likely 30 tablets of buproprion XL tablets today. He comes in taking 5500mg of buproprion, 950mg of cold medicine it seems. He has areas of erythema on face and face noted. He is awake, delirious, not alert, does not answer all questions, mummbling words, no active resp distress noted, not restless though on restraints and safety monitor at bedside. EKG in ER with sinus rhythm, and no QTC prolongation noted, last qtc 480s. Posion control was contacted by the ER. previous records reviewed ED/floor Course: as above ROS: limited ROS due to overdose/delirium/encephalopathy PMHx: mood disorder, multiple admissions for overdose (unclear if suicide attempts vs intentional), hypothyroidism, HepC PSHx: none as per chart Family History: cancer in family, unknown Social History: Alcohol-past alcohol use, unclear last use; Smoking-former smoker; Drug use-none except OD of OTC medications Allergies: Allergies Allergy/AdvReac Type Severity Reaction Status Date / Time No Known Allergies Allergy Verified 03/14/18 20:45 Home Medications: Levothyroxine TAB* [Synthroid 150 MCG TAB*] 150 mcg PO DAILY 03/09/18 [History Confirmed 03/15/18] Nicotine PATCH 21 MG/24 HR* 21 mg TRANSDERM DAILY 03/09/18 [History Confirmed ] Bupropion XL* [Wellbutrin XL *] 150 mg PO DAILY 03/15/18 [History Confirmed ] Nicotine PATCH 21 MG/24 HR* 1 patch TRANSDERM DAILY patch 03/16/18 [Rx] Tele: NSR Vitals: Vital Signs Temp 99.1 F 05/19/18 11:06 Pulse 109 05/19/18 11:06 Resp 32 05/19/18 09:57 BP 142/91 05/19/18 11:06 Pulse Ox 97 05/19/18 11:06 Intake & Output 05/18/18 05/19/18 05/19/18 18:59 06:59 18:59 Weight 136.078 kg O2/Vent: NC 4-5L with end-tidal monitoring (40s) Infusions: heplock Current Medications: Famotidine (Pepcid Iv*) 20 mg IV SLOW PU DAILY [facility] Dextrose/Lactated Ringer's (D5lr 1000 Ml Bag*) 1,000 mls @ 75 mls/hr IV PER RATE [facility] Levothyroxine Sodium (Synthroid Tab*) 150 mcg PO DAILY [facility] Methylprednisolone Sodium Succinate (Solu-Medrol 40 Mg) 40 mg IV Q12H [facility] Physical Exam: General: awake, not alert no distress, no diaphoresis Head: normocephalic, atraumatic HEENT: no pallor, no icterus, moist mucous membranes Neck: soft, supple, no jvd, no stridor CVS: normal rate, regular, no murmur Resp: bilateral air entry, no rhales, no wheeze, no rhonchi, no acc muscle use Abdomen: soft, nontender, nondistended, bowel sounds present Ext: pulses+, warm, no edema Skin: areas of erythema, seems more like patches, possible something attached/ stuck, more on face than extremities Neuro: awake, not alert, not oriented, moving all extremities, no gross focal deficit, pupils bilaterally dilated 5+mm and reactive Labs: Laboratory Results - last 24 hr 05/19/18 05/19/18 05/19/18 10:01 10:01 10:01 WBC 6.8 RBC 5.12 Hgb 14.5 Hct 44 MCV 86 MCH 28 MCHC 33 RDW 15 Plt Count 205 MPV 8.2 Neut % (Auto) 75.7 Lymph % (Auto) 14.1 [place] % (Auto) 7.9 Eos % (Auto) 1.7 Baso % (Auto) 0.6 Absolute Neuts (auto) 5.1 Absolute Lymphs (auto) 1.0 Absolute Monos (auto) 0.5 Absolute Eos (auto) 0.1 Absolute Basos (auto) 0 Absolute Nucleated RBC 0 Nucleated RBC % 0.1 Sodium 140 Potassium 3.9 Chloride 106 Carbon Dioxide 22 Anion Gap 12 H BUN 10 Creatinine 1.18 H Est GFR ( Amer) 88.9 Est GFR (Non-Af Amer) 73.5 BUN/Creatinine Ratio 8.5 Glucose 91 Calcium 9.4 Total Bilirubin 0.50 AST 21 ALT 24 Alkaline Phosphatase 64 Total Creatine Kinase 102 Troponin I 0.00 Total Protein 7.4 Albumin 4.7 Globulin 2.7 Albumin/Globulin Ratio 1.7 TSH 19.02 H Urine Color Yellow Urine Appearance Clear Urine pH 6.0 Ur Specific [place] 1.017 Urine Protein 2+(100 mg/dl) A Urine Ketones Negative Urine Blood Negative Urine Nitrate Negative Urine Bilirubin Negative Urine Urobilinogen Negative Ur Leukocyte Esterase Negative Urine WBC (Auto) Trace(0-5/hpf) Urine RBC (Auto) Trace(0-2/hpf) Ur Squamous Epith Cells Present A Urine Bacteria Absent Hyaline Casts Present A Granular Casts Present A Urine Sperm Present A Urine Glucose Negative Urine Ascorbic Acid * A Salicylates < 2.50 Urine Opiates Screen Acetaminophen < 15 Ur Barbiturates Screen Ur Phencyclidine Scrn Ur Amphetamines Screen U Benzodiazepines Scrn Urine Cocaine Screen U Cannabinoids Screen Serum Alcohol < 10 05/19/18 10:01 WBC RBC Hgb Hct MCV MCH MCHC RDW Plt Count MPV Neut % (Auto) Lymph % (Auto) [place] % (Auto) Eos % (Auto) Baso % (Auto) Absolute Neuts (auto) Absolute Lymphs (auto) Absolute Monos (auto) Absolute Eos (auto) Absolute Basos (auto) Absolute Nucleated RBC Nucleated RBC % Sodium Potassium Chloride Carbon Dioxide Anion Gap BUN Creatinine Est GFR ( Amer) Est GFR (Non-Af Amer) BUN/Creatinine Ratio Glucose Calcium Total Bilirubin AST ALT Alkaline Phosphatase Total Creatine Kinase Troponin I Total Protein Albumin Globulin Albumin/Globulin Ratio TSH Urine Color Urine Appearance Urine pH Ur Specific [place] Urine Protein Urine Ketones Urine Blood Urine Nitrate Urine Bilirubin Urine Urobilinogen Ur Leukocyte Esterase Urine WBC (Auto) Urine RBC (Auto) Ur Squamous Epith Cells Urine Bacteria Hyaline Casts Granular Casts Urine Sperm Urine Glucose Urine Ascorbic Acid Salicylates Urine Opiates Screen None detected Acetaminophen Ur Barbiturates Screen None detected Ur Phencyclidine Scrn Presumptive positive A Ur Amphetamines Screen Presumptive positive A U Benzodiazepines Scrn None detected Urine Cocaine Screen None detected U Cannabinoids Screen None detected Serum Alcohol Imaging: cxr 05/19 - possible some left sided infiltrates Assessment: 28y M w/pmhx of mood disorder, multiple admissions for overdose ( unclear if suicide attempts vs intentional), hypothyroidism, HepC; recent [place] [facility] [place] Coricidin [place] (dextromethorphan and chlorpheniramine containing). He has been evaluated for inpatient admission multiple times, has recieved treatment with outpatient medications but still has repeat episodes of admissions 2/2 to overdose. He comes in now after injesting 45+ tablets of coridine and a whole bottle of likely 30 tablets of buproprion XL tablets today. He comes in taking 5500mg of buproprion, 950mg of cold medicine it seems. He has areas of erythema on face and face noted. He is awake, delirious, not alert, does not answer all questions, mummbling words, no active resp distress noted, not restless though on restraints and safety monitor at bedside. EKG in ER with sinus rhythm, and no QTC prolongation noted, last qtc 480s. Posion control was contacted by the ER. -Overdose of opiate and antihistamine, suspected intentional -Encephalopathy -possible aspiration pneumonia of left lung Mood disorder Plan: Neuro- encephalopathy; likely from antihistamine and opiate like substance. neurochecks q2h. delirium prec. no further sedatives. airway monitoring. restraints as needed for safetly. Antipsychotics prn if needed. needs 1:1 monitoring and then psych evaluation. Unclear if intentional overdose with suicide attempt, will clarify once more lucid. CVS- BP stable, not tachy. EKG without qtc prolongation. check EKG q6h. IVF d5lr infusion. IV hydralazine PRN for SBP>160. Resp- on NC 4-5L, no active resp distress. CXR wiht some left sided infiltrates. tmax 99. wbc normal. given OD, will monitoring airway with end- tidal monitoring. Prophylactic abx for suspected aspiration event. No acute indication for intubation, ventilating well and awake on his own. Aspiration prec. ID- tmax 99. wbc normal. CXR soem left sided patchy infiltrates+. on 4-5L oxygen. no resp distres. possible aspiration event. IV zosyn (day#1). GI- NPO. asp prec. GI proph. Renal- Cr okay. IVF d5lr. K okay. no reed. Heme- hg stable. plt stable. DVT proph with SCDs Endo- fingerstick q6h Musculsk- pressure ulcer prophylaxis. Bedrest. SKIN - areas of erythema; patches causing reaction? no antihistamines. famotidine x1. will start solumedrol 40mg iv q12h for 24 hours. Wounds- none Nutrition- NPO DVT prophylaxis: SCDs GI prophylaxis: h2b Central Line: no Arterial Line: no Reed Cathetor: no Disposition: admit to ICU for tele, neuro and airway monitoring for OD; expected LOS >2 midnights Code Status: full code Total Critical Care time is 45 minutes, excluding procedures/teaching Ralph Michelle MD [employer] (Electronically Signed)
--- NOTE | 2018-05-19 11:44 | PN ---
Progress Note - Progress Note Date of Service: 05/19/18 Note: Additional asessment Overdose of buproprion tablets Plan - risk of seizures from OD of buproprion. neurological monitoring with q2h neurochecks in ICU. unclear time frame of overdose exactly. supportive therapy as per H&P plan. Ralph Michelle Nuclear Logging Engineer
[2018-05-19] MEDS: methylPREDNISolone SOD 40 MG* 1 ML VIAL IV SCH ×2 (12:02→23:20)
[2018-05-19] MEDS: D5LR 1000 ML BAG* 1,000 ML IV SCH (12:03)
[2018-05-19] MEDS: Famotidine IV* 10 MG/ML 2 ML (20 mg) IV SLOW PU SCH (12:03)
[2018-05-19] MEDS: Piperacillin/Tazobac ADVAN(*) 3.375 GM in NS 0.9% 100 ML* 100 ML IVPB SCH ×2 (12:04→20:12)
[2018-05-19] MEDS ORDERED: Acetaminophen SUPP* 650 MG SUPP PR PRN (15:05)
[2018-05-19] MEDS ORDERED: LORazepam INJ* 2 MG/ML 1 ML VIAL IV PUSH PRN (15:06)
[2018-05-19] MEDS: LORazepam INJ* 2 MG/ML 1 ML VIAL IV PUSH PRN (15:57)
[2018-05-20] MEDS: D5LR 1000 ML BAG* 1,000 ML IV SCH (00:03)
[2018-05-20] MEDS: Piperacillin/Tazobac ADVAN(*) 3.375 GM in NS 0.9% 100 ML* 100 ML IVPB SCH ×3 (04:21→21:59)
[2018-05-20] MEDS: Levothyroxine TAB* 150 MCG TAB PO SCH (05:44)
[2018-05-20 06:09] LABS: Hematocrit 42 % (42-52); Hemoglobin 14.1 g/dl (14.0-18.0); Mean Corpuscular HGB Conc 33 g/dl (31-36); Mean Corpuscular Hemoglobin 29 pg (27-31); Mean Corpuscular Volume 86 fL (80-94); Mean Platelet Volume 8.3 fL (7.4-10.4); Platelet Count 179 10^3/ul (150-450); Red Blood Count 4.91 10^6/ul (4.00-5.40); Red Cell Distribution Width 15 % (10.5-15); White Blood Count 6.8 10^3/ul (3.5-10.8)
[2018-05-20 06:14] LABS: INR 1.1 (0.77-1.02)
[2018-05-20 06:24] LABS: EGFR Non-African American 96.7 (>60)
[2018-05-20] MEDS: LORazepam INJ* 2 MG/ML 1 ML VIAL IV PUSH PRN (08:09)
[2018-05-20] MEDS: Famotidine IV* 10 MG/ML 2 ML (20 mg) IV SLOW PU SCH (08:09)
[2018-05-20] MEDS: Nicotine PATCH 21 MG/24 HR* PATCH TRANSDERM SCH (10:06)
--- NOTE | 2018-05-20 10:11 | PN ---
Progress Note - Progress Note Date of Service: 05/20/18 Note: History and Physical Note -- Critical Care 24 hour events: -more awake/alert, no distress. answering questions, hungry -off oxygen; no cough/sputum/sob/cp. sats 95$ on RA, RR 20 -continue 1:1 monitoring Tele: NSR Vitals: Vital Signs Temp 99.0 F 05/20/18 09:30 Pulse 85 05/20/18 09:30 Resp 21 05/20/18 09:57 BP 130/89 05/20/18 09:30 Pulse Ox 97 05/20/18 09:30 Intake & Output 05/19/18 05/20/18 05/20/18 18:59 06:59 18:59 Intake Total 200 1997 828 Output Total 2835 485 245 Balance -2635 1512 583 Weight 106.6 kg 107.1 kg Intake: IV Fluids 150 1372 229 D5LR 150 1372 229 IVPB 50 265 59 ABX - ZOSYN 265 59 D5LR 50 Oral 360 540 Output: Urine 50 Reed 2835 435 245 O2/Vent: RA Infusions: d5LR Current Medications: Acetaminophen (Tylenol Supp*) 650 mg KS Q4H PRN PRN Reason: FEVER Last Admin: 05/19/18 15:58 Dose: 650 mg Famotidine (Pepcid Tab*) 20 mg PO DAILY ON LICENSE OF [facility] Hydralazine HCl (Apresoline Iv*) 2.5 mg IV SLOW PU Q3H PRN PRN Reason: for SBP >160 Piperacillin Sod/Tazobactam (Sod 3.375 gm/ Sodium Chloride) 100 mls @ 25 mls/ hr IVPB Q8H ON LICENSE OF [facility] Last Admin: 05/20/18 04:21 Dose: 25 mls/hr Levothyroxine Sodium (Synthroid Tab*) 150 mcg PO DAILY@0600 ON LICENSE OF [facility] Last Admin: 05/20/18 05:44 Dose: 150 mcg Lorazepam (Ativan Inj*) 0.5 mg IV PUSH Q4H PRN PRN Reason: agitation or anxiety Lorazepam (Ativan Inj*) 1 mg IV PUSH Q6H PRN PRN Reason: Anxiety or agitation Last Admin: 05/20/18 08:09 Dose: 1 mg Methylprednisolone Sodium Succinate (Solu-Medrol 40 Mg) 40 mg IV Q12H ON LICENSE OF [facility] Last Admin: 05/19/18 23:20 Dose: 40 mg Nicotine (Nicotine Patch 21 Mg/24 Hr*) 1 patch TRANSDERM DAILY@0800 ON LICENSE OF [facility] Pharmacy Profile Note (Nicotine Patch Removal Note*) 1 note PATCH OFF 2100 ON LICENSE OF [facility] Physical Exam: General: awake, alert, no distress, no diaphoresis Head: normocephalic, atraumatic HEENT: no pallor, no icterus, moist mucous membranes Neck: soft, supple, no jvd, no stridor CVS: normal rate, regular, no murmur Resp: bilateral air entry, no rhales, no wheeze, no rhonchi, no acc muscle use Abdomen: soft, nontender, nondistended, bowel sounds present Ext: pulses+, warm, no edema Skin: areas of erythema, seems more like patches, possible something attached/ stuck, more on face than extremities Neuro: awake, alert, oriented, moving all extremities, no gross focal deficit Labs: Laboratory Results - last 24 hr 05/19/18 05/19/18 05/19/18 10:01 10:01 10:01 WBC 6.8 RBC 5.12 Hgb 14.5 Hct 44 MCV 86 MCH 28 MCHC 33 RDW 15 Plt Count 205 MPV 8.2 Neut % (Auto) 75.7 Lymph % (Auto) 14.1 [place] % (Auto) 7.9 Eos % (Auto) 1.7 Baso % (Auto) 0.6 Absolute Neuts (auto) 5.1 Absolute Lymphs (auto) 1.0 Absolute Monos (auto) 0.5 Absolute Eos (auto) 0.1 Absolute Basos (auto) 0 Absolute Nucleated RBC 0 Nucleated RBC % 0.1 INR (Anticoag Therapy) Sodium 140 Potassium 3.9 Chloride 106 Carbon Dioxide 22 Anion Gap 12 H BUN 10 Creatinine 1.18 H Est GFR ( Amer) 88.9 Est GFR (Non-Af Amer) 73.5 BUN/Creatinine Ratio 8.5 Glucose 91 POC Glucose (mg/dL) Lactic Acid Calcium 9.4 Phosphorus Magnesium Total Bilirubin 0.50 Direct Bilirubin Indirect Bilirubin AST 21 ALT 24 Alkaline Phosphatase 64 Ammonia Total Creatine Kinase 102 Troponin I 0.00 Total Protein 7.4 Albumin 4.7 Globulin 2.7 Albumin/Globulin Ratio 1.7 Procalcitonin TSH 19.02 H Urine Color Yellow Urine Appearance Clear Urine pH 6.0 Ur Specific [place] 1.017 Urine Protein 2+(100 mg/dl) A Urine Ketones Negative Urine Blood Negative Urine Nitrate Negative Urine Bilirubin Negative Urine Urobilinogen Negative Ur Leukocyte Esterase Negative Urine WBC (Auto) Trace(0-5/hpf) Urine RBC (Auto) Trace(0-2/hpf) Ur Squamous Epith Cells Present A Urine Bacteria Absent Hyaline Casts Present A Granular Casts Present A Urine Sperm Present A Urine Glucose Negative Urine Ascorbic Acid * A Salicylates < 2.50 Urine Opiates Screen Acetaminophen < 15 Ur Barbiturates Screen Ur Phencyclidine Scrn Ur Amphetamines Screen U Benzodiazepines Scrn Urine Cocaine Screen U Cannabinoids Screen Serum Alcohol < 10 05/19/18 05/19/18 05/19/18 10:01 10:01 12:00 WBC RBC Hgb Hct MCV MCH MCHC RDW Plt Count MPV Neut % (Auto) Lymph % (Auto) [place] % (Auto) Eos % (Auto) Baso % (Auto) Absolute Neuts (auto) Absolute Lymphs (auto) Absolute Monos (auto) Absolute Eos (auto) Absolute Basos (auto) Absolute Nucleated RBC Nucleated RBC % INR (Anticoag Therapy) Sodium Potassium Chloride Carbon Dioxide Anion Gap BUN Creatinine Est GFR ( Amer) Est GFR (Non-Af Amer) BUN/Creatinine Ratio Glucose POC Glucose (mg/dL) 81 Lactic Acid 6.0 H* Calcium Phosphorus Magnesium Total Bilirubin Direct Bilirubin Indirect Bilirubin AST ALT Alkaline Phosphatase Ammonia Total Creatine Kinase Troponin I Total Protein Albumin Globulin Albumin/Globulin Ratio Procalcitonin TSH Urine Color Urine Appearance Urine pH Ur Specific [place] Urine Protein Urine Ketones Urine Blood Urine Nitrate Urine Bilirubin Urine Urobilinogen Ur Leukocyte Esterase Urine WBC (Auto) Urine RBC (Auto) Ur Squamous Epith Cells Urine Bacteria Hyaline Casts Granular Casts Urine Sperm Urine Glucose Urine Ascorbic Acid Salicylates Urine Opiates Screen None detected Acetaminophen Ur Barbiturates Screen None detected Ur Phencyclidine Scrn Presumptive positive A Ur Amphetamines Screen Presumptive positive A U Benzodiazepines Scrn None detected Urine Cocaine Screen None detected U Cannabinoids Screen None detected Serum Alcohol 05/19/18 05/19/18 05/19/18 15:40 15:40 15:40 WBC RBC Hgb Hct MCV MCH MCHC RDW Plt Count MPV Neut % (Auto) Lymph % (Auto) [place] % (Auto) Eos % (Auto) Baso % (Auto) Absolute Neuts (auto) Absolute Lymphs (auto) Absolute Monos (auto) Absolute Eos (auto) Absolute Basos (auto) Absolute Nucleated RBC Nucleated RBC % INR (Anticoag Therapy) Sodium Potassium Chloride Carbon Dioxide Anion Gap BUN Creatinine Est GFR ( Amer) Est GFR (Non-Af Amer) BUN/Creatinine Ratio Glucose POC Glucose (mg/dL) Lactic Acid 0.9 Calcium Phosphorus Magnesium Total Bilirubin Direct Bilirubin Indirect Bilirubin AST ALT Alkaline Phosphatase [place] 55 H Total Creatine Kinase Troponin I Total Protein Albumin Globulin Albumin/Globulin Ratio Procalcitonin < 0.1 TSH Urine Color Urine Appearance Urine pH Ur Specific [place] Urine Protein Urine Ketones Urine Blood Urine Nitrate Urine Bilirubin Urine Urobilinogen Ur Leukocyte Esterase Urine WBC (Auto) Urine RBC (Auto) Ur Squamous Epith Cells Urine Bacteria Hyaline Casts Granular Casts Urine Sperm Urine Glucose Urine Ascorbic Acid Salicylates Urine Opiates Screen Acetaminophen Ur Barbiturates Screen Ur Phencyclidine Scrn Ur Amphetamines Screen U Benzodiazepines Scrn Urine Cocaine Screen U Cannabinoids Screen Serum Alcohol 05/19/18 05/19/18 05/20/18 15:40 17:37 00:02 WBC RBC Hgb Hct MCV MCH MCHC RDW Plt Count MPV Neut % (Auto) Lymph % (Auto) [place] % (Auto) Eos % (Auto) Baso % (Auto) Absolute Neuts (auto) Absolute Lymphs (auto) Absolute Monos (auto) Absolute Eos (auto) Absolute Basos (auto) Absolute Nucleated RBC Nucleated RBC % INR (Anticoag Therapy) Sodium Potassium Chloride Carbon Dioxide Anion Gap BUN Creatinine Est GFR ( Amer) Est GFR (Non-Af Amer) BUN/Creatinine Ratio Glucose POC Glucose (mg/dL) 93 110 H Lactic Acid Calcium Phosphorus Magnesium Total Bilirubin Direct Bilirubin Indirect Bilirubin AST ALT Alkaline Phosphatase [place]monia Total Creatine Kinase 200 Troponin I Total Protein Albumin Globulin Albumin/Globulin Ratio Procalcitonin TSH Urine Color Urine Appearance Urine pH Ur Specific [place] Urine Protein Urine Ketones Urine Blood Urine Nitrate Urine Bilirubin Urine Urobilinogen Ur Leukocyte Esterase Urine WBC (Auto) Urine RBC (Auto) Ur Squamous Epith Cells Urine Bacteria Hyaline Casts Granular Casts Urine Sperm Urine Glucose Urine Ascorbic Acid Salicylates Urine Opiates Screen Acetaminophen Ur Barbiturates Screen Ur Phencyclidine Scrn Ur Amphetamines Screen U Benzodiazepines Scrn Urine Cocaine Screen U Cannabinoids Screen Serum Alcohol 05/20/18 05/20/18 05/20/18 05:55 05:55 05:55 WBC 6.8 RBC 4.91 Hgb 14.1 Hct 42 MCV 86 MCH 29 MCHC 33 RDW 15 Plt Count 179 MPV 8.3 Neut % (Auto) Lymph % (Auto) [place] % (Auto) Eos % (Auto) Baso % (Auto) Absolute Neuts (auto) Absolute Lymphs (auto) Absolute Monos (auto) Absolute Eos (auto) Absolute Basos (auto) Absolute Nucleated RBC Nucleated RBC % INR (Anticoag Therapy) 1.10 H Sodium 142 Potassium 4.0 Chloride 109 Carbon Dioxide 25 Anion Gap 8 BUN 11 Creatinine 0.93 Est GFR ( Amer) 117.1 Est GFR (Non-Af Amer) 96.7 BUN/Creatinine Ratio 11.8 Glucose 110 H POC Glucose (mg/dL) Lactic Acid Calcium 9.6 Phosphorus 3.2 Magnesium 2.4 Total Bilirubin 0.60 Direct Bilirubin 0.10 Indirect Bilirubin 0.5 AST 19 ALT 22 Alkaline Phosphatase 53 Ammonia Total Creatine Kinase Troponin I Total Protein 7.0 Albumin 4.4 Globulin 2.6 Albumin/Globulin Ratio 1.7 Procalcitonin TSH Urine Color Urine Appearance Urine pH Ur Specific [place] Urine Protein Urine Ketones Urine Blood Urine Nitrate Urine Bilirubin Urine Urobilinogen Ur Leukocyte Esterase Urine WBC (Auto) Urine RBC (Auto) Ur Squamous Epith Cells Urine Bacteria Hyaline Casts Granular Casts Urine Sperm Urine Glucose Urine Ascorbic Acid Salicylates Urine Opiates Screen Acetaminophen Ur Barbiturates Screen Ur Phencyclidine Scrn Ur Amphetamines Screen U Benzodiazepines Scrn Urine Cocaine Screen U Cannabinoids Screen Serum Alcohol Imaging: cxr 05/19 - possible some left sided infiltrates Assessment: 28y M w/pmhx of mood disorder, multiple admissions for overdose ( unclear if suicide attempts vs intentional), hypothyroidism, HepC; recent admission 02/2018 at [facility] [place] for overdose of Coricidin tablets (dextromethorphan and chlorpheniramine containing). He has been evaluated for inpatient admission multiple times, has recieved treatment with outpatient medications but still has repeat episodes of admissions 2/2 to overdose. He comes in now after injesting 45+ tablets of coridine and a whole bottle of likely 30 tablets of buproprion XL tablets today. He comes in taking 5500mg of buproprion, 950mg of cold medicine it seems. He has areas of erythema on face and face noted. He is awake, delirious, not alert, does not answer all questions, mummbling words, no active resp distress noted, not restless though on restraints and safety monitor at bedside. EKG in ER with sinus rhythm, and no QTC prolongation noted, last qtc 480s. Posion control was contacted by the ER. -Overdose of opiate and antihistamine, suspected intentional -overdose of buproprion -Drug use with PCP/amphetamines -Encephalopathy -possible aspiration pneumonia of left lung Mood disorder Plan: Neuro- improved mental status; appears to be back to baseline. denies he was trying to kill himself. wants to go home. -cont 1:1 montioring; change neurochecks to q4h. no further airway risk clinically -obtain psych consultation -ativan PRN -start nicotine patch CVS- BP stable, not tachy. EKGs without QTc changes. d/c ivf. Resp- on RA, no distress/cough. CXR today for followup of aspiration. d/c end- tidal monitoring. Empiric IV abx. ID- tmax 99. wbc normal. CXR some left sided patchy infiltrates+, followup CXR today. on RA. IV zosyn (day#2) for empiric aspiration tx. GI- start regular diet. LFTs normal, check again tomorrow Renal- Cr okay. d/c ivf. K okay, no acidosis. no reed. Heme- hg stable. plt stable. DVT proph with SCDs Endo- d/c fingersticks. cont synthroid. Musculsk- pressure ulcer prophylaxis. oob to chair SKIN - areas of erythema; patches causing reaction? improved. change to prednisone 20mg daily x2 more doses. Wounds- none Nutrition- regular diet DVT prophylaxis: SCDs GI prophylaxis: h2b Central Line: no Arterial Line: no Reed Cathetor: no Disposition: ICU today, possible tele transfer. psych consult to be placed. Code Status: full code Ralph Michelle MD [employer] (Electronically Signed)
[2018-05-20] MEDS ORDERED: Nicotine Patch Removal NOTE PATCH OFF SCH (21:00)
[2018-05-21] MEDS: Piperacillin/Tazobac ADVAN(*) 3.375 GM in NS 0.9% 100 ML* 100 ML IVPB SCH ×2 (05:12→11:58)
[2018-05-21] MEDS: Levothyroxine TAB* 150 MCG TAB PO SCH (05:53)
[2018-05-21] MEDS: Nicotine PATCH 21 MG/24 HR* PATCH TRANSDERM SCH (08:03)
[2018-05-21] MEDS ORDERED: predniSONE TAB* 20 MG PO SCH (09:00)
[2018-05-21] MEDS ORDERED: Famotidine TAB* 20 MG PO SCH ×2 (09:00)
--- NOTE | 2018-05-21 10:52 | CONSULT ---
Consult Consult: Psychiatry asked to see patient due to overdose. HPI: Patient reports he has been staying at [facility] in [place]. He states he was discharged from [facility] to [facility] with a Rx of wellbutrin approx 2 days ago. He states he took this and coricidin "to get high." He states "I didn't take as many [coricidin] as I usally do." He states preference to be discharged "to the street" and states he has temporary housing through [facility] at the [facility] until 05/23. He denies SI or mood symptoms. He states he has upcoming appointments at [facility]. He states he has a bus pass and is knowledgeable about transportation. PAST PSYCHIATRIC HISTORY: Patient has a significant history of ED visits and ICU /BSU admissions and various hospitals in [place]. He has multiple failed referrals to substance use treatment, and he has a history of requesting admission with complaints of AH and suicidality in the setting of Coricidin use. He also has a history of recanting mental health symptoms and identifying that he said these things to be admitted to the hospital. Patient has been hospitalized for longer term at [facility]. He has been treated several times for rhabdomyolysis directly r/t substance use. He has been treated at [facility], [facility] and [facility]. He has been diagnosed in the past with opiate dependence, Coricidin dependence, substance-induced mood disorder, malingering and unspecified personality d/o. Past medication trials include, but are not limited to: aripiprazole, risperidone, olanzapine, sertraline, citalopram, fluoxetine, trazodone, buproprion, naltrexone, suboxone, Topamax, prazosin, lithium, Antabuse, benzodiazepines and stimulants. PAST MEDICAL HISTORY: Remarkable for hepatitis C, hypothyroidism. PAST SUICIDE AND HOMICIDE HISTORY: The patient has a history of suicide attempts and prior suicidal behaviors. He has been admitted to the ICU several times after accidental drug overdose. LEGAL HISTORY: The patient has a history of arrest on charges for pettherese aguirre and has served time in long term. There is no noted history of violence or aggression. FAMILY HISTORY: The patient denies. MSE: The patient is an obese, white male, who appears stated age. He is lying in bed, dressed in the hospital gown. He is wearing new glasses, is poorly groomed with a full sarkar. No psychomotor abnormal activity is noted. He is A+ Ox3. Eye contact is good. Mood is euthymic. Affect is constricted. Thought process is linear and goal directed. The patient denies auditory or visual hallucinations. He denies delusions. He denies SI or passive wish. He reports plan to return to [place], where he has lived in the past and is knowledgeable of treatment agencies. Insight and judgment are poor. Impulse control is tenuous. Fund of knowledge is adequate. IMPRESSION/RECOMMENDATIONS: Fernie is a 27yo white male with history of polysubstance use disorder who presented to ED ambulatory with reports of taking 64 tabs of Coricidin cold tablets. 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 He has an extensive history of not following through on recommendations and outpatient non-adherence. He declines need for voluntary admission and does not meet criteria for involuntary admission to BSU. He remains with constant observation until he is discharged. He has an extensive history of not following through recommendations and outpatient nonadherence. I have reviewed the above with attending physician and my supervising psychiatrist.
[2018-05-21 12:09] VITALS: BP 139/96
--- NOTE | 2018-05-22 09:05 | DS ---
CC: Dr. Madrigal from Psychiatry * DISCHARGE SUMMARY: DATE OF ADMISSION: 05/19/18. DATE OF DISCHARGE: 05/21/18. DISCHARGE DIAGNOSES: 1. Coricidin overdose and bupropion XL overdose. 2. Encephalopathy, did resolve. 3. Possible aspiration pneumonia, resolved. SECONDARY DIAGNOSES: 1. History of recurrent admissions for overdoses in the past. 2. Hypothyroidism. 3. Hepatitis C positive. 4. History of unspecified mood disorder. MEDICATIONS AT DISCHARGE: Include levothyroxine 150 mcg daily. LABORATORY DATA AND STUDIES PERFORMED DURING THE HOSPITAL STAY: On 05/20/18, sodium of 142, potassium of 4.0, chloride of 109, carbon dioxide 25, BUN 11, creatinine of 0.93. On 05/20/18, white blood cell count of 6.8, hemoglobin of 14.1, hematocrit of 42, and platelets of 179. Portable chest x-ray obtained on 05/20/18, impression: "No evidence of acute disease." CONSULTATIONS DURING THE HOSPITAL STAY: Dr. Madrigal from Psychiatry. HOSPITALIZATION COURSE: Fernie Angeles is a 28-year-old male who was brought into the hospital after he was taken overdose of Coricidin and took approximately 30 tablets of bupropion XL. He was encephalopathic and had possible aspiration at admission. He was placed on steroids, Zosyn, and admitted to the ICU for further monitoring. By the time of discharge, on , his encephalopathy resolved fully. The patient had also normal procalcitonin level and no further evidence of respiratory symptoms. His repeat chest x-ray was negative. At this point, the patient's prednisone and Zosyn that was initially placed for aspiration was going to be discontinued. The patient received 3 days of treatment for that. The patient was evaluated by Dr. Madrigal from Psychiatry, who noted that patient is okay to be discharged to [facility] where he usually resides. The psychiatry service recommended for the patient not to be prescribed any further medications for his mood disorder, but continued Synthroid only, which is going to be continued at discharge. PHYSICAL EXAM AT THE TIME OF DISCHARGE: Blood pressure 139/96, heart rate of 70 and regular, respiratory rate 20, oxygen saturation 97% on room air, temperature 97.8. General: The patient is a pleasant 28-year-old male, who is in no acute distress. Alert, awake, and oriented x3. HEENT: Head: Atraumatic , normocephalic. Eyes: Pupils are equal and reactive to light and accommodation. Oropharynx is clear. Mucosa moist. Neck: Supple. No JVD. No bruits bilaterally. Cardiovascular: Regular rate and rhythm, no murmur. Respiratory: Clear to auscultation bilaterally. Abdomen: Soft, nontender. Bowel sounds present in all 4 quadrants. Extremities: There is no edema. Positive pulses +2 bilaterally. No clubbing or cyanosis. On evaluation of the skin, no ecchymotic areas or rashes noted. Neuro evaluation: Speech clear. Cranial nerves II through XII grossly intact. Motor strength 5/5 bilaterally. Please note that this is a short summary of the patient's hospitalization. Please refer to further medical records for details. TIME SPENT: Approximately 35 minutes was spent on patient's discharge. [id number]/CPS #: [id number] MTDD
== END 2018-05-21 13:27 | disposition home or self-care (01) | DRG 812 ==
LOC: ED 09:43 → ICU 11:11 → MEDTELE 05-20 16:26
PROVIDERS: ADMIT Internal Medicine Critical Care Medicine; ATTEND Internal Medicine
DX: T45.0X2A Poisoning by antiallergic and antiemetic drugs, intentional self-harm, initial encounter (principal); J69.0 Pneumonitis due to inhalation of food and vomit; G92 Toxic encephalopathy; F39 Unspecified mood [affective] disorder; T43.292A Poisoning by other antidepressants, intentional self-harm, initial encounter; T40.602A Poisoning by unspecified narcotics, intentional self-harm, initial encounter; E03.9 Hypothyroidism, unspecified; B19.20 Unspecified viral hepatitis C without hepatic coma; F15.90 Other stimulant use, unspecified, uncomplicated; E66.9 Obesity, unspecified; Z68.33 Body mass index [BMI] 33.0-33.9, adult; Z80.9 Family history of malignant neoplasm, unspecified; Y92.099 Unspecified place in other non-institutional residence as the place of occurrence of the external cause; Z87.891 Personal history of nicotine dependence; Z79.899 Other long term (current) drug therapy
CPT/HCPCS: 36415; 71045; 80048; 80053; 80076; 80307; 80320; 80329; 81003; 81015; 82140; 82550; 83605; 83735; 84100; 84145; 84443; 84484; 85025; 85027; 85610; 87040; 87086; 93005; 99284; A9270-GY; G0480; J2060; J2543; J2920; J7512

== ENCOUNTER 2018-05-21 16:01 | Inpatient (IN) | payer OTHER ==
[2018-05-21] MEDS ORDERED: NS 0.9% 1000 ML* 1,000 ML IV ONE (16:49)
--- NOTE | 2018-05-21 16:50 | ED ---
Substance Abuse/Use - HPI Summary HPI Summary: Patient is a 28 y/o male who presents to the ED s/p overdose. When asked what he took, he is unable to answer and is confused. He falls asleep easily, but is easily arousable. Patient has a hx of overdosing, Coricidin dependence, opiate dependence, and mental health diagnoses. Patient is a level 5 caveat due to his altered mental status. - History Of Current Complaint Chief Complaint: EDOverdose Stated Complaint: OVERDOSE Time Seen by Provider: 05/21/18 16:43 Hx Obtained From: Medical Records Hx From Patient Unobtainable Due To: Altered Mental Status Ingestion History: Type/Name Of Drug - Unknown, Amount Ingested - Unknown Character: Lethargic Aggravating Factor(s): Other - Unknown Alleviating Factor(s): Other - Unknown Associated Signs And Symptoms: Confused, Altered Mental Status Related Hx: Possible Multi Drug Ingestion, Prior Psych Admission - Allergies/Home Medications Allergies/Adverse Reactions: Allergies Allergy/AdvReac Type Severity Reaction Status Date / Time No Known Allergies Allergy Verified 05/21/18 16:20 PMH/Surg Hx/FS Hx/Imm Hx Endocrine/Hematology History: Reports: Hx Thyroid Disease - Hypothyroidism Denies: Hx Anticoagulant Therapy, Hx Blood Disorders, Hx Blood Transfusions, Hx Bone Marrow Disease, Hx Diabetes, Hx Systemic Lupus Erythematosus, Hx Sickle Cell Disease, Hx Anemia, Hx Unexplained Bleeding, Other Endocrine/Hematological Disorders Cardiovascular History: Reports: Hx Hypertension Denies: Hx Aneurysm, Hx Angina, Hx Angioplasty, Hx Auto Implanted Cardiovert Defib, Hx Cardiac Arrest, Hx Cardiomegaly, Hx Congenital Heart Disease, Hx Congestive Heart Failure, Hx Coronary Artery Disease, Hx Deep Vein Thrombosis, Hx Embolism, Hx Hypercholesterolemia, Hx Hypotension, Hx Pacemaker/ICD, Hx Peripheral Vascular Disease, Hx Rheumatic Fever, Hx Syncope, Hx Valvular Heart Disease, Other Cardiovascular Problems/Disorders Respiratory History: Reports: Hx Pneumonia, Hx Seasonal Allergies Denies: Hx Asthma, Hx Chronic Bronchitis, Hx Chronic Obstructive Pulmonary Disease (COPD), Hx Cystic Fibrosis, Hx Lung Cancer, Hx Pleural Effusion, Hx Pulmonary Edema, Hx Pulmonary Embolism, Hx Sleep Apnea, Other Respiratory Problems/Disorders GI History: Reports: Hx Ulcer Denies: Hx Cirrhosis, Hx Crohn's Disease, Hx Diverticulosis, Hx Gall Bladder Disease, Hx Gastroesophageal Reflux Disease, Hx Gastrointestinal Bleed, Hx Hiatal Hernia, Hx Irritable Bowel, Hx Jaundice, Hx Obstructive Bowel, Hx Ileostomy, Hx Pyloric Stenosis, Other GI Disorders History: Denies: Hx Acute Renal Failure, Hx Benign Prostatic Hyperplasia, Hx Chronic Renal Failure, Hx Dialysis, Hx Kidney Infection, Hx Kidney Stones, Hx Renal Disease, Other Problems/Disorders Musculoskeletal History: Denies: Hx Arthritis, Hx Back Problems, Hx Bursitis, Hx Congenital Bone Abnormalities, Hx Fibromyalgia, Hx Gout, Hx Orthopedic Injury, Hx Osteoporosis, Hx Scoliosis, Hx Tendonitis, Other Musculoskeletal History Sensory History: Reports: Hx Contacts or Glasses Denies: Hx Cataracts, Hx Eye Injury, Hx Eye Prosthesis, Hx Glaucoma, Hx Legally Blind, Hx Macular Degeneration, Hx Vision Problem, Hx Deafness, Hx Hearing Aid, Other Sensory Impairments Opthamlomology History: Reports: Hx Contacts or Glasses Denies: Hx Cataracts, Hx Eye Injury, Hx Eye Prosthesis, Hx Glaucoma, Hx Legally Blind, Hx Macular Degeneration, Hx Vision Problem, Other Sensory Impairments Neurological History: Reports: Hx Headaches, Hx Seizures Denies: Hx Dementia, Hx Developmental Delay, Hx Migraine, Hx Nerve Disease, Hx Spinal Cord Injury, Hx Transient Ischemic Attacks (TIA), Other Neuro Impairments/Disorders Psychiatric History: Reports: Hx Anxiety, Hx Depression, Hx Post Traumatic Stress Disorder, Hx Inpatient Treatment, Hx Community Mental Health Tx, Hx Bipolar Disorder, Hx of Violent Episodes Against Others, Hx Substance Abuse, Other Psychiatric Issues/Disorders Denies: Hx Attention Deficit Hyperactivity Disorder, Hx Eating Disorder, Hx Panic Disorder, Hx Schizophrenia, Hx Suicide Attempt - Surgical History Surgery Procedure, Year, and Place: none - Immunization History Date of Tetanus Vaccine: Unknown Date of Influenza Vaccine: None Infectious Disease History: No Infectious Disease History: Reports: Hx Hepatitis - Hep C Denies: Hx Clostridium Difficile, Hx Human Immunodeficiency Virus (HIV), Hx of Known/Suspected MRSA, Hx Shingles, Hx Tuberculosis, Hx Known/Suspected VRE, Hx Known/Suspected VRSA, History Other Infectious Disease, Traveled Outside the [place] in Last 30 Days - Family History Known Family History: Positive: Other - cancer Negative: Renal Disease - Social History Alcohol Use: Occasionally Alcohol Amount: states last drink was 2 months ago Hx Substance Use: Yes Substance Use Type: 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 Substance Use Comment - Amount & Last Used: 03/14/18 Coricidin overdose Hx Tobacco Use: Yes Smoking Status (MU): Former Smoker Type: Cigarettes Have You Smoked in the Last Year: Yes Review of Systems Neurological: Other - AMS All Other Systems Reviewed And Are Negative: No Physical Exam - Summary Physical Exam Summary: VITAL SIGNS: Reviewed. GENERAL: Patient is lethargic, somnolent HEAD AND FACE: No signs of trauma. No ecchymosis, hematomas or skull depressions. EYES: Pupils dilated but reactive MOUTH: Oral mucosa dry NECK: Supple, trachea is midline, no adenopathy, no JVD, no carotid bruit. LUNGS: Decreased breath sounds. CVS: Tachycardia ABDOMEN: Soft and decreased bowel sounds. EXTREMITIES: No edema noted. NEURO: lethargic does not follow commands SKIN: Dry and warm GCS: 13 Triage Information Reviewed: Yes Vital Signs On Initial Exam: Initial Vitals Temp Pulse Resp BP Pulse Ox 97.5 F 96 20 118/79 96 05/21/18 16:17 05/21/18 16:17 05/21/18 16:17 05/21/18 16:17 05/21/18 16:17 Vital Signs Reviewed: Yes Diagnostics - Vital Signs Vital Signs Temp Pulse Resp BP Pulse Ox 05/21/18 16:17 97.5 F 96 20 118/79 96 - Laboratory Result Diagrams: 05/22/18 04:35 05/22/18 04:35 Lab Statement: Any lab studies that have been ordered have been reviewed, and results considered in the medical decision making process. - Radiology CXR Radiology Interpretation Completed By: Radiologist Summary of Radiographic Findings: POOR INSPIRATORY EFFORT WITH NO DEFINITE PNEUMONIA. ED physician reviewed radiology report. - EKG 17:10 Cardiac Rate: NL - 91 bpm EKG Rhythm: Sinus Rhythm ST Segment: Normal Course/Dx - Course Assessment/Plan: Patient is a 28 y/o male who presents to the ED s/p overdose. When asked what he took, he is unable to answer and is confused. He falls asleep easily, but is easily arousable. Patient has a hx of overdosing, Coricidin dependence, opiate dependence, and mental health diagnoses. Patient is a level 5 caveat due to his altered mental status. Blood work without any significant abnormality except for anion gap of 12, glucose 127, lactic acid is 3.2, alcohol level of 264. TSH is pending. Chest x-ray impression: Poor inspiratory effort with no definite pneumonia. Head CT is still pending further reading. However, I discussed my physical exam, findings and test results with Dr. Michelle from the ICU services who accepted the patient for admission. The patient is hemodynamically stable. Head CT impression: No acute intracranial pathology. The patient is still keeping his airway patent. Therefore I did not intubate this patient at this time. Dr. Michelle agrees with management. - Diagnoses Provider Diagnoses: Overdose, Altered mental status - Physician Notifications Discussed Care Of Patient With: Ralph Michelle Time Discussed With Above Provider: 18:05 Instructed by Provider To: Admit As Inpatient - Dr. Michelle accept pt for admission to ICU. Discharge - Sign-Out/Discharge Documenting (check all that apply): Patient Departure - Admit - Discharge Plan Condition: Stable Disposition: ADMITTED TO [facility] - Billing Disposition and Condition Condition: STABLE Disposition: Admitted to [facility] - Attestation Statements Document Initiated by Momoe: Yes Documenting Scribe: Martha Novak Provider For Whom Scribe is Documenting (Include Credential): Gorge Fenton MD Scribe Attestation: IMartha, scribed for Gorge Fenton MD on 05/22/18 at 0743. Scribe Documentation Reviewed: Yes Provider Attestation: The documentation as recorded by the Martha fournier accurately reflects the service I personally performed and the decisions made by , Gorge Fenton MD Status of Scribe Document: Viewed
[2018-05-21 17:20] LABS: ABS Basophils 0 10^3/ul (0-0.2); ABS Eosinophils 0 10^3/ul (0-0.6); ABS Lymphocytes 1.4 10^3/ul (1.0-4.8); ABS Monocytes 0.5 10^3/ul (0-0.8); ABS Neutrophils 8.6 10^3/ul (1.5-7.7); ABS Nucleated RBC 0 10^3/ul; Eosinophil % 0 %; Hematocrit 44 % (42-52); Hemoglobin 14.7 g/dl (14.0-18.0); Mean Corpuscular HGB Conc 33 g/dl (31-36); Mean Corpuscular Hemoglobin 29 pg (27-31); Mean Corpuscular Volume 87 fL (80-94); Mean Platelet Volume 8.3 fL (7.4-10.4); Nucleated Red Blood Cells % 0; Platelet Count 213 10^3/ul (150-450); Red Blood Count 5.13 10^6/ul (4.00-5.40); Red Cell Distribution Width 15 % (10.5-15); White Blood Count 10.5 10^3/ul (3.5-10.8)
[2018-05-21 17:35] LABS: EGFR Non-African American 93.3 (>60)
[2018-05-21] MEDS ORDERED: NS 0.9% 1000 ML* 1,000 ML IV SCH (19:00)
--- NOTE | 2018-05-21 19:02 | HP ---
H&P (Free Text) History and Physical: History and Physical -- Critical Care Limitations in history/physical: delirium HPI: 28y M w/pmhx of mood disorder, multiple admissions for overdose (unclear if suicide attempts vs intentional), hypothyroidism, HepC; Patient recently admitted to [facility] ICU 05/19 for Overdose of Coricidine (dextromethorphan and chlorpheniramine). He had delirium, no hemodyn changes. He improved and was transferred to the medical floor with consultation from psychiatry done 05/21, with patient refusing voluntary inpatient admission. He was medically stable and improved. No involuntary admission to psych was required. Patient has a history of admissions to inpatient units in past. He was discharged from [facility] 05/21 (earlier today). He was found unresponsive at home by EMS and brought to ER. He is not able to given history, confused/delirious, awake but not alert. Moving all ext equally. Unable to tell ED if he took medications. He did have a bottle of beer on him. In ER, BP and HR stable, on RA, no distress. Found to have elevated blood alcohol level 260s. Being called for admission to ICU for neurochecks and overdose. EKG in ER - NSR, no st/t changes, QtC normal limits ROS: unable to obtain secondary to encephalopathy PMHx: mood disorder, multiple admissions for overdose (unclear if suicide attempts vs intentional), hypothyroidism, HepC PSHx: none as per chart Family History: cancer in family, unknown Social History: Alcohol-past alcohol use, unclear last use; Smoking-former smoker; Drug use-none except OD of OTC medications Allergies: Allergies Allergy/AdvReac Type Severity Reaction Status Date / Time No Known Allergies Allergy Verified 05/21/18 16:20 Home Medications: Levothyroxine TAB* [Synthroid 150 MCG TAB*] 150 mcg PO DAILY 03/09/18 [History Confirmed 05/21/18] Tele: NSR Vitals: Vital Signs Temp 97.5 F 05/21/18 16:17 Pulse 85 05/21/18 17:24 Resp 26 05/21/18 18:11 BP 111/63 05/21/18 18:09 Pulse Ox 94 05/21/18 17:24 O2/Vent: RA Infusions: heplock Current Medications: Sodium Chloride (Ns 0.9% 1000 Ml*) 1,000 mls @ 75 mls/hr IV PER RATE [facility] Levothyroxine Sodium (Synthroid Tab*) 150 mcg PO DAILY@0600 [facility] Physical Exam: General: lethargic not alert, no distress, no diaphoresis Head: normocephalic, atraumatic HEENT: no pallor, no icterus, moist mucous membranes Neck: soft, supple, no jvd, no stridor CVS: normal rate, regular, no murmur Resp: bilateral air entry, no rhales, no wheeze, no rhonchi, no acc muscle use Abdomen: soft, nontender, nondistended, bowel sounds present Ext: pulses+, warm, no edema Skin: intact Neuro: lethargic at times, not alert, confused, not answering questions, moving all extremities, no gross focal deficit noted on exam but limited exam otherwise ; pupils are dilated and reactive. Labs: Laboratory Results - last 24 hr 05/21/18 05/21/18 05/21/18 17:10 17:10 17:10 WBC 10.5 RBC 5.13 Hgb 14.7 Hct 44 MCV 87 MCH 29 MCHC 33 RDW 15 Plt Count 213 MPV 8.3 Neut % (Auto) 81.5 Lymph % (Auto) 13.0 Tate % (Auto) 5.2 Eos % (Auto) 0 Baso % (Auto) 0.3 Absolute Neuts (auto) 8.6 H Absolute Lymphs (auto) 1.4 Absolute Monos (auto) 0.5 Absolute Eos (auto) 0 Absolute Basos (auto) 0 Absolute Nucleated RBC 0 Nucleated RBC % 0 Sodium 137 Potassium 4.0 Chloride 103 Carbon Dioxide 22 Anion Gap 12 H BUN 18 Creatinine 0.96 Est GFR ( Amer) 112.9 Est GFR (Non-Af Amer) 93.3 BUN/Creatinine Ratio 18.8 Glucose 127 H Lactic Acid 3.1 H* Calcium 10.0 Total Bilirubin 0.40 AST 20 ALT 31 Alkaline Phosphatase 48 Total Creatine Kinase 107 Total Protein 7.7 Albumin 4.8 Globulin 2.9 Albumin/Globulin Ratio 1.7 TSH 2.66 Salicylates < 2.50 Acetaminophen < 15 Serum Alcohol 264 H Imaging: CXR 05/21 - no acute process noted CT brain 05/21 - no acute process noted by me; pending official read Assessment: 28y M w/pmhx of mood disorder, multiple admissions for overdose ( unclear if suicide attempts vs intentional), hypothyroidism, HepC; Patient recently admitted to [facility] ICU 05/19 for Overdose of Coricidine (dextromethorphan and chlorpheniramine). He had delirium, no hemodyn changes. He improved and was transferred to the medical floor with consultation from psychiatry done 05/21, with patient refusing voluntary inpatient admission. He was medically stable and improved. No involuntary admission to psych was required. Patient has a history of admissions to inpatient units in past. He was discharged from [facility] 05/21 (earlier today). He was found unresponsive at home by EMS and brought to ER. He is not able to given history, confused/delirious, awake but not alert. Moving all ext equally. Unable to tell ED if he took medications. He did have a bottle of beer on him. In ER, BP and HR stable, on RA, no distress. Found to have elevated blood alcohol level 260s. -Acute encephalopathy; likely toxic/metabolic from overdose of unknown medications + alcohol -alcohol intoxication -suspected overdose by anticholinergics and opiate containing substances Plan: Neuro- acute mental status change; suspect overdose of anticholingeric containing medications and opiate like medications. Also with alcohol in blood work >260s. CT brain appears without focal process. asp prec. delirium prec. -noted multiple prior ODs, psych eval has been done but no inpatient admission. -needs 1:1 monitoring for intention to harm -psych eval will be needed. CVS- BP and HR stable. No arrythmia noted. EKG wihtout qtc changes. EKG q6h. trend LA. IVF NS infusion 75cc/hr. Resp- on RA, no distress/hypoxia. CXR clear. Respiratoyr monitoring with end- tidal. asp prec, HOB elevated. ID- afebrile. wbc 10.5. CXR clear. LA elevated likely from medications? no abx indicated currently. GI- NPO. Aspiration prec. HOB elevated. Alcohol+, conservative tx with IVF hydration. Renal- Cr okay. K okay. no acidosis. no reed indicated. IVF NS 75cc/hr. Heme- hg ok, no bleeding. DVT proph. Endo- fingerstick q6h. cont synthroid po once more awake. Musculsk- pressure ulcer prophylaxis. Bedrest. Wounds- none Nutrition- NPO DVT prophylaxis: SCD GI prophylaxis: - Central Line: - Arterial Line: - Reed Cathetor: no Disposition: admit to ICU for overdose; expected LOS >2 midnights Code Status: full code Total Critical Care time is 40 minutes, excluding procedures/teaching Ralph Michelle MD Director Marketing (Electronically Signed)
[2018-05-22] MEDS ORDERED: NS 0.9% 1000 ML/HR X 1 BAG (TOTAL 1000 ML) IV ONE (01:30)
[2018-05-22 04:47] LABS: Hematocrit 40 % (42-52); Hemoglobin 13.1 g/dl (14.0-18.0); Mean Corpuscular HGB Conc 33 g/dl (31-36); Mean Corpuscular Hemoglobin 28 pg (27-31); Mean Corpuscular Volume 87 fL (80-94); Mean Platelet Volume 8.3 fL (7.4-10.4); Platelet Count 173 10^3/ul (150-450); Red Blood Count 4.61 10^6/ul (4.00-5.40); Red Cell Distribution Width 16 % (10.5-15); White Blood Count 7.8 10^3/ul (3.5-10.8)
[2018-05-22 05:03] LABS: EGFR Non-African American 96.7 (>60)
[2018-05-22] MEDS: Levothyroxine TAB* 150 MCG TAB PO SCH (05:56)
[2018-05-22] MEDS ORDERED: Magnesium Sulfate IV* 2 GM in NS 0.9% 100 ML* 100 ML IV ONE (10:25)
[2018-05-22] MEDS ORDERED: Potassium Chlor TAB* 20 MEQ TAB.ER PO ONE (10:25)
[2018-05-22] MEDS ORDERED: Magnesium Sulfate 2 GM IV (Premix) IVPB ONE (11:00)
--- NOTE | 2018-05-22 11:26 | PN ---
Progress Note - Progress Note Date of Service: 05/22/18 Note: Progress Note -- Critical Care 24 hour events: -awake, more alert. oriented, no distress -1:1 monitoring; denies suicidal ideation Tele: NSR Vitals: Vital Signs Temp 99.1 F 05/22/18 08:00 Pulse 96 05/22/18 10:01 Resp 23 05/22/18 06:00 BP 123/91 05/22/18 10:00 Pulse Ox 96 05/22/18 10:01 Intake & Output 05/21/18 05/22/18 05/22/18 18:59 06:59 18:59 Intake Total 2920 380 Output Total 725 500 Balance 2195 -120 Weight 109 kg Intake: IV Fluids 1720 NS (0.9%) 720 IVPB 1000 NS (0.9%) 1000 Oral 200 380 Output: Urine 725 500 Other: Estimated Void Medium Medium Date of Last Bowel 05/22/2018 Movement # Bowel Movements 1 Estimated Stool Amount Large # Voids 1 1 O2/Vent: RA Infusions: NS Current Medications: Sodium Chloride (Ns 0.9% 1000 Ml*) 1,000 mls @ 75 mls/hr IV PER RATE [facility] Last Admin: 05/21/18 19:57 Dose: 75 mls/hr Magnesium Sulfate (Magnesium Sulfate 2 Gm Iv*) 2 gm in 50 mls @ 50 mls/hr IVPB ONCE ONE Stop: 05/22/18 11:59 Levothyroxine Sodium (Synthroid Tab*) 150 mcg PO DAILY@0600 [facility] Last Admin: 05/22/18 05:56 Dose: 150 mcg Physical Exam: General: awake, more alert, no distress, no diaphoresis Head: normocephalic, atraumatic HEENT: no pallor, no icterus, moist mucous membranes Neck: soft, supple, no jvd, no stridor CVS: normal rate, regular, no murmur Resp: bilateral air entry, no rhales, no wheeze, no rhonchi, no acc muscle use Abdomen: soft, nontender, nondistended, bowel sounds present Ext: pulses+, warm, no edema Skin: intact Neuro: awake, alert, orinted to place/person/time, moves all ext, pupils smaller and reactive Labs: Laboratory Results - last 24 hr 05/21/18 05/21/18 05/21/18 17:10 17:10 17:10 WBC 10.5 RBC 5.13 Hgb 14.7 Hct 44 MCV 87 MCH 29 MCHC 33 RDW 15 Plt Count 213 MPV 8.3 Neut % (Auto) 81.5 Lymph % (Auto) 13.0 [place] % (Auto) 5.2 Eos % (Auto) 0 Baso % (Auto) 0.3 Absolute Neuts (auto) 8.6 H Absolute Lymphs (auto) 1.4 Absolute Monos (auto) 0.5 Absolute Eos (auto) 0 Absolute Basos (auto) 0 Absolute Nucleated RBC 0 Nucleated RBC % 0 Patient Temperature ABG pH ABG pH (Temp Correct) ABG pCO2 ABG pCO2 (Temp Corrct ABG pO2 ABG pO2 (Temp Correct ABG HCO3 ABG O2 Saturation ABG Base Excess Respiration Rate O2 Delivery Device Ventilator Type Vent Mode FiO2 Inspiratory Time PEEP Pressure Support Pressure Control EPAP IPAP BiPAP Sodium 137 Potassium 4.0 Chloride 103 Carbon Dioxide 22 Anion Gap 12 H BUN 18 Creatinine 0.96 Est GFR ( Amer) 112.9 Est GFR (Non-Af Amer) 93.3 BUN/Creatinine Ratio 18.8 Glucose 127 H POC Glucose (mg/dL) Lactic Acid 3.1 H* Calcium 10.0 Magnesium Total Bilirubin 0.40 AST 20 ALT 31 Alkaline Phosphatase 48 Total Creatine Kinase 107 Total Protein 7.7 Albumin 4.8 Globulin 2.9 Albumin/Globulin Ratio 1.7 TSH 2.66 Salicylates < 2.50 Acetaminophen < 15 Serum Alcohol 264 H 05/21/18 05/21/18 05/21/18 21:04 23:24 23:24 WBC RBC Hgb Hct MCV MCH MCHC RDW Plt Count MPV Neut % (Auto) Lymph % (Auto) [place] % (Auto) Eos % (Auto) Baso % (Auto) Absolute Neuts (auto) Absolute Lymphs (auto) Absolute Monos (auto) Absolute Eos (auto) Absolute Basos (auto) Absolute Nucleated RBC Nucleated RBC % Patient Temperature Not Reportable ABG pH 7.34 L ABG pH (Temp Correct) Not Reportable ABG pCO2 40 ABG pCO2 (Temp Corrct Not Reportable ABG pO2 121 H ABG pO2 (Temp Correct Not Reportable ABG HCO3 21.9 ABG O2 Saturation 99.0 H ABG Base Excess -3.9 L Respiration Rate Not Reportable O2 Delivery Device 2 lpm nasal cannula Ventilator Type Not Reportable Vent Mode Not Reportable FiO2 Not Reportable Inspiratory Time Not Reportable PEEP Not Reportable Pressure Support Not Reportable Pressure Control Not Reportable EPAP Not Reportable IPAP Not Reportable BiPAP Not Reportable Sodium Potassium Chloride Carbon Dioxide Anion Gap BUN Creatinine Est GFR ( Amer) Est GFR (Non-Af Amer) BUN/Creatinine Ratio Glucose POC Glucose (mg/dL) 128 H Lactic Acid 3.1 H* Calcium Magnesium Total Bilirubin AST ALT Alkaline Phosphatase Total Creatine Kinase Total Protein Albumin Globulin Albumin/Globulin Ratio TSH Salicylates Acetaminophen Serum Alcohol 05/22/18 05/22/18 05/22/18 04:35 04:35 04:35 WBC 7.8 RBC 4.61 Hgb 13.1 L Hct 40 L MCV 87 MCH 28 MCHC 33 RDW 16 H Plt Count 173 MPV 8.3 Neut % (Auto) Lymph % (Auto) [place] % (Auto) Eos % (Auto) Baso % (Auto) Absolute Neuts (auto) Absolute Lymphs (auto) Absolute Monos (auto) Absolute Eos (auto) Absolute Basos (auto) Absolute Nucleated RBC Nucleated RBC % Patient Temperature ABG pH ABG pH (Temp Correct) ABG pCO2 ABG pCO2 (Temp Corrct ABG pO2 ABG pO2 (Temp Correct ABG HCO3 ABG O2 Saturation ABG Base Excess Respiration Rate O2 Delivery Device Ventilator Type Vent Mode FiO2 Inspiratory Time PEEP Pressure Support Pressure Control EPAP IPAP BiPAP Sodium 141 Potassium 3.4 L Chloride 111 Carbon Dioxide 20 L Anion Gap 10 BUN 17 Creatinine 0.93 Est GFR ( Amer) 117.1 Est GFR (Non-Af Amer) 96.7 BUN/Creatinine Ratio 18.3 Glucose 95 POC Glucose (mg/dL) Lactic Acid 2.7 H* Calcium 8.5 L Magnesium 1.8 L Total Bilirubin AST ALT Alkaline Phosphatase Total Creatine Kinase 58 Total Protein Albumin Globulin Albumin/Globulin Ratio TSH Salicylates Acetaminophen Serum Alcohol Imaging: CXR 05/21 - no acute process noted CT brain 05/21 - no acute process noted by me; pending official read Assessment: 28y M w/pmhx of mood disorder, multiple admissions for overdose ( unclear if suicide attempts vs intentional), hypothyroidism, HepC; Patient recently admitted to [facility] ICU 12/1 for Overdose of Coricidine (dextromethorphan and chlorpheniramine). He had delirium, no hemodyn changes. He improved and was transferred to the medical floor with consultation from psychiatry done 05/21, with patient refusing voluntary inpatient admission. He was medically stable and improved. No involuntary admission to psych was required. Patient has a history of admissions to inpatient units in past. He was discharged from [facility] 05/21 (earlier today). He was found unresponsive at home by EMS and brought to ER. He is not able to given history, confused/delirious, awake but not alert. Moving all ext equally. Unable to tell ED if he took medications. He did have a bottle of beer on him. In ER, BP and HR stable, on RA, no distress. Found to have elevated blood alcohol level 260s. -Acute encephalopathy; likely toxic/metabolic from overdose of unknown medications + alcohol -alcohol intoxication -suspected overdose by anticholinergics and opiate containing substances Plan: Neuro- alert now; suspect overdose of anticholingeric containing medications and opiate like medications. Also with alcohol in blood work >260s. CT brain appears without focal process. asp prec. delirium prec. -noted multiple prior ODs, psych eval has been done but no inpatient admission. -denies suicide attempt as per psych. -can d/c 1:1; safety monitoring -psych eval done, discussed CVS- BP and HR stable. No arrythmia noted. EKG without qtc changes. trend LA. IVF NS infusion 75cc/hr. Resp- on NC no distress/hypoxia. CXR clear. asp prec, HOB elevated. ID- afebrile. wbc 7. CXR clear. LA elevated likely from medications? no abx indicated currently. GI- tolerated regular diet this morning. Renal- Cr okay. K okay. mild acidosis. no reed indicated. IVF NS 75cc/hr. check LA later Heme- hg ok, no bleeding. DVT proph. Endo- cont synthroid po Musculsk- pressure ulcer prophylaxis. oob to chair Wounds- none Nutrition- regular diet DVT prophylaxis: SCD GI prophylaxis: - Central Line: - Arterial Line: - Reed Cathetor: no Disposition: ICU, likely stable for transfer to ICU for overdose; expected LOS > 2 midnights Code Status: full code Ralph Michelle MD Hearing Healthcare Practitioner (Electronically Signed) Tele: NSR Vitals: Vital Signs Temp 97.5 F 05/21/18 16:17 Pulse 85 05/21/18 17:24 Resp 26 05/21/18 18:11 BP 111/63 05/21/18 18:09 Pulse Ox 94 05/21/18 17:24 O2/Vent: RA Infusions: heplock Current Medications: Sodium Chloride (Ns 0.9% 1000 Ml*) 1,000 mls @ 75 mls/hr IV PER RATE [facility] Levothyroxine Sodium (Synthroid Tab*) 150 mcg PO DAILY@0600 [facility] Physical Exam: General: lethargic not alert, no distress, no diaphoresis Head: normocephalic, atraumatic HEENT: no pallor, no icterus, moist mucous membranes Neck: soft, supple, no jvd, no stridor CVS: normal rate, regular, no murmur Resp: bilateral air entry, no rhales, no wheeze, no rhonchi, no acc muscle use Abdomen: soft, nontender, nondistended, bowel sounds present Ext: pulses+, warm, no edema Skin: intact Neuro: lethargic at times, not alert, confused, not answering questions, moving all extremities, no gross focal deficit noted on exam but limited exam otherwise ; pupils are dilated and reactive. Labs: Imaging: CXR 05/21 - no acute process noted CT brain 05/21 - no acute process noted by me; pending official read Assessment: 28y M w/pmhx of mood disorder, multiple admissions for overdose ( unclear if suicide attempts vs intentional), hypothyroidism, HepC; Patient recently admitted to [facility] ICU 05/19 for Overdose of Coricidine (dextromethorphan and chlorpheniramine). He had delirium, no hemodyn changes. He improved and was transferred to the medical floor with consultation from psychiatry done 05/21, with patient refusing voluntary inpatient admission. He was medically stable and improved. No involuntary admission to psych was required. Patient has a history of admissions to inpatient units in past. He was discharged from [facility] 05/21 (earlier today). He was found unresponsive at home by EMS and brought to ER. He is not able to given history, confused/delirious, awake but not alert. Moving all ext equally. Unable to tell ED if he took medications. He did have a bottle of beer on him. In ER, BP and HR stable, on RA, no distress. Found to have elevated blood alcohol level 260s. -Acute encephalopathy; likely toxic/metabolic from overdose of unknown medications + alcohol -alcohol intoxication -suspected overdose by anticholinergics and opiate containing substances Plan: Neuro- acute mental status change; suspect overdose of anticholingeric containing medications and opiate like medications. Also with alcohol in blood work >260s. CT brain appears without focal process. asp prec. delirium prec. -noted multiple prior ODs, psych eval has been done but no inpatient admission. -needs 1:1 monitoring for intention to harm -psych eval will be needed. CVS- BP and HR stable. No arrythmia noted. EKG wihtout qtc changes. EKG q6h. trend LA. IVF NS infusion 75cc/hr. Resp- on RA, no distress/hypoxia. CXR clear. Respiratoyr monitoring with end- tidal. asp prec, HOB elevated. ID- afebrile. wbc 10.5. CXR clear. LA elevated likely from medications? no abx indicated currently. GI- NPO. Aspiration prec. HOB elevated. Alcohol+, conservative tx with IVF hydration. Renal- Cr okay. K okay. no acidosis. no reed indicated. IVF NS 75cc/hr. Heme- hg ok, no bleeding. DVT proph. Endo- fingerstick q6h. cont synthroid po once more awake. Musculsk- pressure ulcer prophylaxis. Bedrest. Wounds- none Nutrition- NPO DVT prophylaxis: SCD GI prophylaxis: - Central Line: - Arterial Line: - Reed Cathetor: no Disposition: admit to ICU for overdose; expected LOS >2 midnights Code Status: full code Total Critical Care time is 40 minutes, excluding procedures/teaching Ralph Michelle MD Hearing Healthcare Practitioner (Electronically Signed)
--- NOTE | 2018-05-22 11:47 | CONSULT ---
Consult Consult: Psychiatry asked to see patient due to overdose. He was readmitted admitted within hours of discharge when he was presented to ED, self referred in an intoxicated state. This is an addendum to consultation done by group underwriter 05/21/18. Please see EMR for full history. HPI: Patient reports "I don't know what happened." He states he was discharged from the hospital and went to [employer], stole beer and does not recall events afterwards. He denies suicidal ideation or suicide attempt. He states he did not go to the [facility] as planned. Patient reports multiple hospitalizations in [facility] for substance abuse. He states "they wouldn' t admit me unless I went to rehab." Patient denies desire for substance use treatment. MSE: The patient is an obese, white male, who appears stated age. He is lying in bed , dressed in the hospital gown. He is poorly groomed with a full sarkar. No psychomotor abnormal activity is noted. He is A+Ox3. Eye contact is good. Mood is euthymic. Affect is constricted. Thought process is linear and goal directed. The patient denies auditory or visual hallucinations. He denies delusions. He denies SI or passive wish. Insight and judgment are poor. Impulse control is tenuous. Fund of knowledge is adequate. IMPRESSION/RECOMMENDATIONS: Fernie is a 28yo white male with history of polysubstance use disorder who presented to ED, self-referred with [facility]. Patient was stabilized on ICU and is pending transfer to telemetry. 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 He has an extensive history of not following through on recommendations and outpatient non- adherence. He does not meet criteria for involuntary admission to [facility] and does not benefit from milieu therapy.
[2018-05-22] MEDS: Nicotine PATCH 14 MG/24 HR* PATCH TRANSDERM SCH (12:10)
[2018-05-22] MEDS ORDERED: Nicotine Patch Removal NOTE PATCH OFF SCH (21:00)
[2018-05-23 05:01] VITALS: BP 107/69
[2018-05-23] MEDS: Levothyroxine TAB* 150 MCG TAB PO SCH (06:12)
[2018-05-23 06:48] LABS: Hematocrit 43 % (42-52); Hemoglobin 14.6 g/dl (14.0-18.0); Mean Corpuscular HGB Conc 34 g/dl (31-36); Mean Corpuscular Hemoglobin 29 pg (27-31); Mean Corpuscular Volume 86 fL (80-94); Mean Platelet Volume 8.4 fL (7.4-10.4); Platelet Count 164 10^3/ul (150-450); Red Blood Count 5.02 10^6/ul (4.00-5.40); Red Cell Distribution Width 15 % (10.5-15); White Blood Count 7.4 10^3/ul (3.5-10.8)
[2018-05-23 07:28] LABS: EGFR Non-African American 111.9 (>60)
[2018-05-23] MEDS: Nicotine PATCH 14 MG/24 HR* PATCH TRANSDERM SCH (07:54)
--- NOTE | 2018-05-24 09:26 | DS ---
CC: [facility].* DISCHARGE SUMMARY: DATE OF ADMISSION: 05/21/18 DATE OF DISCHARGE: 05/23/18 PRIMARY CARE PROVIDER: [facility]. PSYCHIATRIST: [facility]. ATTENDING PHYSICIAN: Dr. Jodee Vargas * (dictated by Nan Haile NP). PRIMARY DIAGNOSES: 1. Acute encephalopathy secondary to Coricidin overdose. 2. Alcohol intoxication. SECONDARY DIAGNOSES: 1. Depression. 2. Hypothyroidism. STUDIES WHILE IN THE HOSPITAL: 1. Brain CT on 05/21/18 reads no acute intracranial abnormality. 2. Chest x-ray on 05/21/18 reads as poor inspiratory effort with no definite pneumonia. 3. Chest x-ray on 05/22/18 reads as no evidence for acute disease. 4. EKG on 05/21/18 shows normal sinus rhythm with a rate of 91, QTc 443. 5. EKG on 05/21/18 shows normal sinus rhythm with a rate of 87, QTc is 471. 6. EKG on 05/22/18 shows normal sinus rhythm with a rate of 90, QTc 451. 7. EKG on 05/23/18 shows sinus tachycardia with a rate of 103, QTc 456. HISTORY OF PRESENT ILLNESS AND HOSPITAL COURSE: Mr. Angeles is a 28-year-old male well known to our service with a past medical history of mood disorder, hypothyroidism and hepatitic C, who presented to the emergency room on 05/21/18 after an overdose. Please see the history and physical by Dr. Michelle for a complete summary of the events leading up to this hospitalization. In short, the patient was admitted to this facility from 05/19/18 to 05/21/18. He was discharged and presented hours later after another overdose on Coricidin. His previous admission had been a Coricidin overdose and he has had multiple Coricidin overdoses this year. The patient was delirious on admission and not able to provide much information. He was noted to be acutely intoxicated with an alcohol level of 264. He was admitted by the mesh worker to the intensive care unit. The patient had a one-to-one monitor for suspected suicide attempt. He became more alert on 05/22/18 and his symptoms continued to improve. He denied any suicide attempts or ideations and was medically stable. He was seen in consultation by Indiana Torres NP, from Psychiatry who noted that the patient has an extensive history of not following through our recommendations and outpatient nonadherence and that he did not meet criteria for involuntary admission to the Behavioral Services Unit and did not benefit from milieu therapy. His one-to-one monitor was discontinued. The patient was kept another night for monitoring of symptoms. As of today, the patient reports feeling well. He is up walking around in his room and is anxious to be discharged. He offers no complaints. He reported to me that his plan was to go to [place] after being discharged from the hospital as he felt as though there would be less temptation in that area and it would be better for his mental health. He does report to me that he has been in touch with [facility] and is in the process of intake with them. Mr. Angeles is stable for discharge today. Vital signs are as follows: Temp 98.5, heart rate 51, respiratory rate 16, oxygen saturation 96% on room air, blood pressure 107/69. DISCHARGE MEDICATIONS: Continued medication: Levothyroxine 150 mcg p.o. daily. DISCHARGE PLAN: Mr. Angeles will be discharged to home. Activity will be as tolerated. Diet will be regular as tolerated. He will need to follow up with [facility]. I have advised him that he should contact them in an attempt to quicken the intake process as he is in need of a psychiatrist. I have referred him to [facility] as he does not have a primary care provider. I have advised him to return to the emergency room or nearest hospital for any worsening of symptoms, shortness of breath, lightheadedness, dizziness, chest discomfort, high fevers, chills, night sweats , loss of consciousness, or any other worrisome signs or symptoms. After the discharge order was entered, the patient was awaiting a medicaid cab to take him to [place]. I received a phone call from the ICU nurse stating that the patient was noted to be acting differently and in his room holding his stomach. It was discovered that the patient had drunk approximately 300 mL of hand certified medical technician assistant and he appeared acutely intoxicated. At that point, the discharge order was canceled and his serum alcohol was checked and noted to be 296. A one-to-one was again ordered. Shortly after, I received another phone call from the ICU nurse who reported that per the mix house operator, the patient had already been discharged, and therefore, needed to go to the emergency room and could not receive treatment in the intensive care unit. This matter was not discussed with myself and when the ICU nurse called me, he noted that the patient was already in the emergency room. This is a summarized report of a complex medical history and hospital stay. For further details, please see the entire medical record. TIME SPENT: Approximately 45 minutes was spent on this discharge, greater than half of that time spent [id number] with the patient discussing discharge plans and instructions. NAN HAILE NP [id number]/[facility] #: [id number] SOLO
== END 2018-05-23 14:59 | disposition home or self-care (01) | DRG 812 ==
LOC: ED 16:01 → ICU 18:47
PROVIDERS: ADMIT Internal Medicine Critical Care Medicine; ATTEND Internal Medicine
DX: T48.3X2A Poisoning by antitussives, intentional self-harm, initial encounter (principal); G92 Toxic encephalopathy; F10.921 Alcohol use, unspecified with intoxication delirium; T40.4X2A Poisoning by other synthetic narcotics, intentional self-harm, initial encounter; E03.9 Hypothyroidism, unspecified; F39 Unspecified mood [affective] disorder; Y90.8 Blood alcohol level of 240 mg/100 ml or more; E66.9 Obesity, unspecified; F32.9 Major depressive disorder, single episode, unspecified; I10 Essential (primary) hypertension; J30.2 Other seasonal allergic rhinitis; F41.9 Anxiety disorder, unspecified; F43.10 Post-traumatic stress disorder, unspecified; Y92.9 Unspecified place or not applicable; Z86.19 Personal history of other infectious and parasitic diseases; Z80.9 Family history of malignant neoplasm, unspecified; Z87.891 Personal history of nicotine dependence; Z68.33 Body mass index [BMI] 33.0-33.9, adult
CPT/HCPCS: 36415; 36600; 70450; 71045; 80048; 80053; 80320; 80329; 82550; 82803; 83605; 83735; 84443; 85025; 85027; 93005; 99285; A9270-GY; G0480; J3475

== ENCOUNTER 2018-05-23 15:02 | Observation (INO) | payer OTHER ==
[2018-05-23] MEDS ORDERED: NS 0.9% 1000 ML* 1,000 ML IV ONE (15:18)
--- NOTE | 2018-05-23 15:19 | ED ---
Substance Abuse/Use - HPI Summary HPI Summary: Patient is a 28 y/o M presenting to ED unresponsive (level 5 caveat) after having been discharged from [facility] and possibly having consumed hand director immunology. Patient has a history of such. Per Bart Patel note, While waiting for medicaid cab for 2 hours patient noted to be acting differently, not talking, pacing in room holding his stomach. Bottle of hand director immunology found in patient's garbage by toilet. Approximately 300 ml gone from container." Since patient had been discharged at this point, patient had to be re-admitted to ED. In room, pulse is 107, BP 94/62, o2 93. Patient has PMHx of substance abuse, mental health disorders. - History Of Current Complaint Chief Complaint: EDSubstanceAbuse Stated Complaint: OVERDOSE Time Seen by Provider: 05/23/18 15:13 Hx Obtained From: Medical Records, Other: - hospital staff Onset/Duration of Drug/ETOH Abuse: Hours - episode believed to have happened Ingestion History: Type/Name Of Drug - hand sanitzer, Amount Ingested - 300 ml missing from container Overdose Characteristics: Oral Character: Other - unresponsive Aggravating Factor(s): Nothing Alleviating Factor(s): Nothing Associated Signs And Symptoms: Altered Mental Status - unresponsive - Allergies/Home Medications Allergies/Adverse Reactions: Allergies Allergy/AdvReac Type Severity Reaction Status Date / Time No Known Allergies Allergy Verified 05/21/18 16:20 PMH/Surg Hx/FS Hx/Imm Hx Endocrine/Hematology History: Reports: Hx Thyroid Disease - Hypothyroidism Denies: Hx Anticoagulant Therapy, Hx Blood Disorders, Hx Blood Transfusions, Hx Bone Marrow Disease, Hx Diabetes, Hx Systemic Lupus Erythematosus, Hx Sickle Cell Disease, Hx Anemia, Hx Unexplained Bleeding, Other Endocrine/Hematological Disorders Cardiovascular History: Reports: Hx Hypertension Denies: Hx Aneurysm, Hx Angina, Hx Angioplasty, Hx Auto Implanted Cardiovert Defib, Hx Cardiac Arrest, Hx Cardiomegaly, Hx Congenital Heart Disease, Hx Congestive Heart Failure, Hx Coronary Artery Disease, Hx Deep Vein Thrombosis, Hx Embolism, Hx Hypercholesterolemia, Hx Hypotension, Hx Pacemaker/ICD, Hx Peripheral Vascular Disease, Hx Rheumatic Fever, Hx Syncope, Hx Valvular Heart Disease, Other Cardiovascular Problems/Disorders Respiratory History: Reports: Hx Pneumonia, Hx Seasonal Allergies Denies: Hx Asthma, Hx Chronic Bronchitis, Hx Chronic Obstructive Pulmonary Disease (COPD), Hx Cystic Fibrosis, Hx Lung Cancer, Hx Pleural Effusion, Hx Pulmonary Edema, Hx Pulmonary Embolism, Hx Sleep Apnea, Other Respiratory Problems/Disorders GI History: Reports: Hx Ulcer Denies: Hx Cirrhosis, Hx Crohn's Disease, Hx Diverticulosis, Hx Gall Bladder Disease, Hx Gastroesophageal Reflux Disease, Hx Gastrointestinal Bleed, Hx Hiatal Hernia, Hx Irritable Bowel, Hx Jaundice, Hx Obstructive Bowel, Hx Ileostomy, Hx Pyloric Stenosis, Other GI Disorders History: Denies: Hx Acute Renal Failure, Hx Benign Prostatic Hyperplasia, Hx Chronic Renal Failure, Hx Dialysis, Hx Kidney Infection, Hx Kidney Stones, Hx Renal Disease, Other Problems/Disorders Musculoskeletal History: Denies: Hx Arthritis, Hx Back Problems, Hx Bursitis, Hx Congenital Bone Abnormalities, Hx Fibromyalgia, Hx Gout, Hx Orthopedic Injury, Hx Osteoporosis, Hx Scoliosis, Hx Tendonitis, Other Musculoskeletal History Sensory History: Reports: Hx Contacts or Glasses Denies: Hx Cataracts, Hx Eye Injury, Hx Eye Prosthesis, Hx Glaucoma, Hx Legally Blind, Hx Macular Degeneration, Hx Vision Problem, Hx Deafness, Hx Hearing Aid, Other Sensory Impairments Opthamlomology History: Reports: Hx Contacts or Glasses Denies: Hx Cataracts, Hx Eye Injury, Hx Eye Prosthesis, Hx Glaucoma, Hx Legally Blind, Hx Macular Degeneration, Hx Vision Problem, Other Sensory Impairments Neurological History: Reports: Hx Headaches, Hx Seizures Denies: Hx Dementia, Hx Developmental Delay, Hx Migraine, Hx Nerve Disease, Hx Spinal Cord Injury, Hx Transient Ischemic Attacks (TIA), Other Neuro Impairments/Disorders Psychiatric History: Reports: Hx Anxiety, Hx Depression, Hx Post Traumatic Stress Disorder, Hx Inpatient Treatment, Hx Community Mental Health Tx, Hx Bipolar Disorder, Hx of Violent Episodes Against Others, Hx Substance Abuse, Other Psychiatric Issues/Disorders Denies: Hx Attention Deficit Hyperactivity Disorder, Hx Eating Disorder, Hx Panic Disorder, Hx Schizophrenia, Hx Suicide Attempt - Surgical History Surgery Procedure, Year, and Place: none Hx Anesthesia Reactions: No - Immunization History Date of Tetanus Vaccine: Unknown Date of Influenza Vaccine: None Infectious Disease History: Reports: Hx Hepatitis - Hep C Denies: Hx Clostridium Difficile, Hx Human Immunodeficiency Virus (HIV), Hx of Known/Suspected MRSA, Hx Shingles, Hx Tuberculosis, Hx Known/Suspected VRE, Hx Known/Suspected VRSA, History Other Infectious Disease, Traveled Outside the [place] in Last 30 Days - Family History Known Family History: Positive: Other - cancer Negative: Renal Disease - Social History Alcohol Use: Occasionally Alcohol Amount: states last drink was 2 months ago Hx Substance Use: Yes Substance Use Type: 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 Substance Use Comment - Amount & Last Used: 03/14/18 Coricidin overdose Hx Tobacco Use: Yes Smoking Status (MU): Former Smoker Type: Cigarettes Have You Smoked in the Last Year: Yes Review of Systems - ROS Summary Review of Systems Summary: level 5 caveat, unresponsive Negative: Fever - on vitals, temp is 98.1 F Neurological: Other - unresponsive All Other Systems Reviewed And Are Negative: No - Comments Additional Review of Systems Comments: level 5 caveat, unresponsive Physical Exam - Summary Physical Exam Summary: VITAL SIGNS: Reviewed. GENERAL: Patient is a well-developed and nourished male who is lying comfortable in the stretcher. Patient is not in any acute respiratory distress. HEAD AND FACE: No signs of trauma. No ecchymosis, hematomas or skull depressions. No sinus tenderness. EYES: PERRLA, EOMI x 2, No injected conjunctiva, no nystagmus. EARS: Hearing grossly intact. Ear canals and tympanic membranes are within normal limits. MOUTH: Oropharynx within normal limits. NECK: Supple, trachea is midline, no adenopathy, no JVD, no carotid bruit, no c- spine tenderness, neck with full ROM. CHEST: Symmetric, no tenderness at palpation LUNGS: Clear to auscultation bilaterally. No wheezing or crackles. CVS: Regular rate and rhythm, S1 and S2 present, no murmurs or gallops appreciated. ABDOMEN: Soft, non-tender. No signs of distention. No rebound no guarding, and no masses palpated. Bowel sounds are normal. EXTREMITIES: No edema, no cyanosis or clubbing. NEURO: Unresponsive, level 5 caveat, GCS 12 SKIN: Dry and warm Triage Information Reviewed: Yes Vital Signs On Initial Exam: Initial Vitals Temp Pulse Resp BP Pulse Ox 98.1 F 108 26 92/51 93 05/23/18 15:09 05/23/18 15:09 05/23/18 15:09 05/23/18 15:09 05/23/18 15:09 Vital Signs Reviewed: Yes Diagnostics - Laboratory Result Diagrams: 05/23/18 14:25 05/23/18 14:25 Lab Statement: Any lab studies that have been ordered have been reviewed, and results considered in the medical decision making process. - Radiology CXR Radiology Interpretation Completed By: Radiologist Summary of Radiographic Findings: IMPRESSION: POOR INSPIRATORY EFFORT WITH NO DEFINITE PNEUMONIA. THIS REPORT WAS REVIEWED BY ED PHYSICIAN. - EKG 1520 Cardiac Rate: Tachycardia - rate of 102 bpm EKG Rhythm: Sinus Tachycardia Summary of EKG Findings: EKG showed sinus tachycardia with rate of 103 BPM, no ST elevation. Course/Dx - Course Assessment/Plan: Patient is a 28 y/o M presenting to ED unresponsive (level 5 caveat) after having been discharged from [facility] and possibly having consumed hand director immunology. Patient has a history of such. Per Bart Patel note, While waiting for medicaid cab for 2 hours patient noted to be acting differently, not talking, pacing in room holding his stomach. Bottle of hand director immunology found in patient's garbage by toilet. Approximately 300 ml gone from container." Since patient had been discharged at this point, patient had to be re-admitted to ED. In room, pulse is 107, BP 94/62, o2 93. Patient has PMHx of substance abuse, mental health disorders. Blood test without any significant abnormality except for a carbon dioxide of 21, informed about lactic acid of 3, glucose 133. An ABG shows a pH of 7.42, PCO2 of 33, PO2 74 and O2 sat is 95.7. The patient continues to be lethargic and unresponsive. The GSC is about 12. At this point I discussed the case with Dr. Michelle who came and assessed the patient and he recommends no endotracheal intubation since the patient is keeping his airway. Patient is given IV fluids and at this point just symptomatic treatment. The patient was admitted to the ICU by Dr. Michelle. This patient is more stable but critical. EKG shows a sinus tachycardia without any ST elevations. Chest x-ray impression: Poor respiratory effort with no definite pneumonia. Patient will be transferred to the ICU. - Diagnoses Provider Diagnoses: Overdose - Physician Notifications Discussed Care Of Patient With: Ralph Michelle Time Discussed With Above Provider: 15:45 Instructed by Provider To: Other - Patient's case was discussed with Dr. Michelle, Dr. Michelle is agrees to admit patient, does not recommend intubation at this time - Critical Care Time Critical Care Time: 75-104 min Discharge - Sign-Out/Discharge Documenting (check all that apply): Patient Departure - ADMIT - Discharge Plan Condition: Good Disposition: ADMITTED TO [facility] Referrals: No Primary Care Phys,NOPCP [Primary Care Provider] - - Attestation Statements Document Initiated by Scribe: Yes Documenting Scribe: SHERWNI HALL Provider For Whom Scribe is Documenting (Include Credential): BOBBY RICKS MD Scribe Attestation: I, SHERWIN HALL , scribed for BOBBY RICKS MD on 05/23/18 at 1810. Status of Scribe Document: Ready
[2018-05-23 15:35] LABS: ABS Basophils 0 10^3/ul (0-0.2); ABS Eosinophils 0.1 10^3/ul (0-0.6); ABS Lymphocytes 2.5 10^3/ul (1.0-4.8); ABS Monocytes 0.7 10^3/ul (0-0.8); ABS Neutrophils 6.9 10^3/ul (1.5-7.7); ABS Nucleated RBC 0 10^3/ul; Eosinophil % 1.4 %; Hematocrit 45 % (42-52); Hemoglobin 15.4 g/dl (14.0-18.0); Lymphocyte % 24.3 %; Mean Corpuscular HGB Conc 34 g/dl (31-36); Mean Corpuscular Hemoglobin 29 pg (27-31); Mean Corpuscular Volume 86 fL (80-94); Nucleated Red Blood Cells % 0.1; Platelet Count 209 10^3/ul (150-450); Red Blood Count 5.29 10^6/ul (4.00-5.40); Red Cell Distribution Width 15 % (10.5-15); White Blood Count 10.2 10^3/ul (3.5-10.8)
[2018-05-23 16:27] LABS: Urine Appearance Clear; Urine Blood Negative (Negative); Urine Color Colorless; Urine Ketones Negative (Negative); Urine Protein Negative (Negative); Urine Specific Gravity 1.002 (1.010-1.030); Urine Urobilinogen Negative (Negative)
--- NOTE | 2018-05-23 18:58 | HP ---
H&P (Free Text) History and Physical: History and Physical -- Critical Care Limitations in history/physical: delirium HPI: 28y M w/pmhx of mood disorder, multiple admissions for overdose (unclear if suicide attempts vs intentional), hypothyroidism, HepC; Patient recently admitted to [facility] ICU 05/19 for Overdose of Coricidine (dextromethorphan and chlorpheniramine), improved and discharged on 05/21 with subsequent readmission to ER/ICU 3-4 hours later for suspected overdose of Coridine again alson with alcohol intoxication. His mental status improved over the past day and he was more alert. Psychiatry had seen him 05/22 and given his history he was not a candidate for inpatient, he has a history of poor complaince with therapy. He was downgraded to telemetry status, and discharged on 05/23 by medicine team. While in ICU waiting for a ride out, he took a container of hand vocational placement specialist off the wall and drank about half the quantity in there. He later became more confused and lethargic. He was taken to the ER, not alert, sleeping, dilated pupils, found to have a LA 3.0, BP stable and HR stable, afebrile. Alcohol level returned to be 365. On my revisit to ER, his pupils are smaller and reactive. he is moving around more and starting to open eyes more. he is lethargic but oxygenating well on NC with RR ~20. He appears to be able to hold his airway. ROS: unable to obtain secondary to delirium PMHx: mood disorder, multiple admissions for overdose, hypothyroidism, HepC history PSHx: none as per chart Family History: cancer in family, unknown Social History: Alcohol-past alcohol use, unclear last use; Smoking-former smoker; Drug use-none except OD of OTC medications Allergies: Allergies Allergy/AdvReac Type Severity Reaction Status Date / Time No Known Allergies Allergy Verified 05/21/18 16:20 Home Medications: Levothyroxine TAB* [Synthroid 150 MCG TAB*] 150 mcg PO DAILY 03/09/18 [History Confirmed 05/23/18] Tele: NSR Vitals: Vital Signs Temp 98.1 F 05/23/18 15:09 Pulse 101 05/23/18 18:00 Resp 25 05/23/18 18:00 BP 97/62 05/23/18 17:57 Pulse Ox 95 05/23/18 18:00 Intake & Output 05/22/18 05/23/18 05/23/18 18:59 06:59 18:59 Intake Total 1000 Output Total 1800 Balance -800 Intake: IV Fluids 1000 Output: Reed 1800 Infusions: heplock Current Medications: Dextrose/Sodium Chloride (D5ns 0.9% 1000 Ml Bag*) 1,000 mls @ 75 mls/hr IV PER RATE KHRIS Physical Exam: General: lethargic not alert, no distress, no diaphoresis Head: normocephalic, atraumatic HEENT: no pallor, no icterus, moist mucous membranes Neck: soft, supple, no jvd, no stridor CVS: normal rate, regular, no murmur Resp: bilateral air entry, no rhales, no wheeze, no rhonchi, no acc muscle use Abdomen: soft, nontender, nondistended, bowel sounds present Ext: pulses+, warm, no edema Skin: intact Neuro: lethargic, moving ext, pupils were dilated but now smaller, both are reactive Labs: Laboratory Results - last 24 hr 05/23/18 05/23/18 05/23/18 14:25 14:25 14:25 WBC 10.2 RBC 5.29 Hgb 15.4 Hct 45 MCV 86 MCH 29 MCHC 34 RDW 15 Plt Count 209 MPV 9.0 Neut % (Auto) 67.1 Lymph % (Auto) 24.3 Defiance % (Auto) 6.9 Eos % (Auto) 1.4 Baso % (Auto) 0.3 Absolute Neuts (auto) 6.9 Absolute Lymphs (auto) 2.5 Absolute Monos (auto) 0.7 Absolute Eos (auto) 0.1 Absolute Basos (auto) 0 Absolute Nucleated RBC 0 Nucleated RBC % 0.1 ABG pH ABG pCO2 ABG pO2 ABG HCO3 ABG O2 Saturation ABG Base Excess Sodium 137 Potassium 3.7 Chloride 104 Carbon Dioxide 21 L Anion Gap 12 H BUN 12 Creatinine 0.92 Est GFR ( Amer) 118.5 Est GFR (Non-Af Amer) 98.0 BUN/Creatinine Ratio 13.0 Glucose 133 H Lactic Acid 3.0 H* Calcium 9.8 Total Bilirubin 0.50 AST 24 ALT 34 Alkaline Phosphatase 51 Total Creatine Kinase 71 Total Protein 7.3 Albumin 4.5 Globulin 2.8 Albumin/Globulin Ratio 1.6 Urine Color Urine Appearance Urine pH Ur Specific Aurora Urine Protein Urine Ketones Urine Blood Urine Nitrate Urine Bilirubin Urine Urobilinogen Ur Leukocyte Esterase Urine Glucose Salicylates Cancelled Urine Opiates Screen Acetaminophen Cancelled Ur Barbiturates Screen Ur Phencyclidine Scrn Ur Amphetamines Screen U Benzodiazepines Scrn Urine Cocaine Screen U Cannabinoids Screen Serum Alcohol 365 H 05/23/18 05/23/18 05/23/18 15:16 15:16 15:40 WBC RBC Hgb Hct MCV MCH MCHC RDW Plt Count MPV Neut % (Auto) Lymph % (Auto) Defiance % (Auto) Eos % (Auto) Baso % (Auto) Absolute Neuts (auto) Absolute Lymphs (auto) Absolute Monos (auto) Absolute Eos (auto) Absolute Basos (auto) Absolute Nucleated RBC Nucleated RBC % ABG pH 7.42 ABG pCO2 33 L ABG pO2 74 L ABG HCO3 23.1 ABG O2 Saturation 95.7 ABG Base Excess -2.2 L Sodium Potassium Chloride Carbon Dioxide Anion Gap BUN Creatinine Est GFR ( Amer) Est GFR (Non-Af Amer) BUN/Creatinine Ratio Glucose Lactic Acid Calcium Total Bilirubin AST ALT Alkaline Phosphatase Total Creatine Kinase Total Protein Albumin Globulin Albumin/Globulin Ratio Urine Color Colorless Urine Appearance Clear Urine pH 6.0 Ur Specific Aurora 1.002 L Urine Protein Negative Urine Ketones Negative Urine Blood Negative Urine Nitrate Negative Urine Bilirubin Negative Urine Urobilinogen Negative Ur Leukocyte Esterase Negative Urine Glucose Negative Salicylates Urine Opiates Screen None detected Acetaminophen Ur Barbiturates Screen None detected Ur Phencyclidine Scrn None detected Ur Amphetamines Screen None detected U Benzodiazepines Scrn None detected Urine Cocaine Screen None detected U Cannabinoids Screen None detected Serum Alcohol Imaging: - Assessment: 28y M w/pmhx of mood disorder, multiple admissions for overdose ( unclear if suicide attempts vs intentional), hypothyroidism, HepC; Patient recently admitted to [facility] ICU 05/19 for Overdose of Coricidine (dextromethorphan and chlorpheniramine), improved and discharged on 05/21 with subsequent readmission to ER/ICU 3-4 hours later for suspected overdose of Coridine again alson with alcohol intoxication. His mental status improved over the past day and he was more alert. Psychiatry had seen him 05/22 and given his history he was not a candidate for inpatient, he has a history of poor complaince with therapy. He was downgraded to telemetry status, and discharged on 05/23 by medicine team. While in ICU waiting for a ride out, he took a container of hand vocational placement specialist off the wall and drank about half the quantity in there. He later became more confused and lethargic. He was taken to the ER, not alert, sleeping , dilated pupils, found to have a LA 3.0, BP stable and HR stable, afebrile. Alcohol level returned to be 365. -Acute encephalopathy from overdose of hand vocational placement specialist (ethyl alcohol) Plan: Neuro- acute mental status change from ethyl alcohol overdose -some improvement in mental status -fingerstick q4h -neurocheks q4h -given recurretn intoxications; he is unsafe to discharge now; would not further discharge. needs to be admitted involuntarily for safety -psych eval will be needed. CVS- BP and HR stable. No arrythmia noted. Repeat LA and BMP. d5ns 75cc/hr. Resp- on RA now. no distress. sats mid upper 90s, RR 20s. more wakefulness. asp prec, HOB elevated. ID- afebrile. wbc 10.5. CXR clear. LA 3.0, repeat at 8pm. IVF infusion. hold abx. GI- NPO. Aspiration prec. HOB elevated. trend alcohol level. check lfts in AM. intake was ethyl alchol in vocational placement specialist. Renal- Cr okay. K okay. no acidosis. no reed indicated. IVF NS 75cc/hr. Heme- hg ok, no bleeding. DVT proph. Endo- fingerstick q6h. cont synthroid po once more awake. Musculsk- pressure ulcer prophylaxis. Bedrest. Wounds- none Nutrition- NPO DVT prophylaxis: SCD GI prophylaxis: - Central Line: - Arterial Line: - Reed Cathetor: no Disposition: admit to telemetry , discussed with hospitalist who will follow; expected LOS >2 midnights Code Status: full code Total Critical Care time is 35 minutes, excluding procedures/teaching Ralph Michelle MD Life Insurance Agent (Electronically Signed)
[2018-05-23] MEDS: D5NS 0.9% 1000 ML BAG* 1,000 ML IV SCH (20:48)
[2018-05-24 04:15] LABS: EGFR Non-African American 95.6 (>60)
[2018-05-24 05:48] LABS: ABS Basophils 0 10^3/ul (0-0.2); ABS Eosinophils 0.2 10^3/ul (0-0.6); ABS Lymphocytes 2.9 10^3/ul (1.0-4.8); ABS Monocytes 0.8 10^3/ul (0-0.8); ABS Neutrophils 2.4 10^3/ul (1.5-7.7); ABS Nucleated RBC 0 10^3/ul; Eosinophil % 3.3 %; Hematocrit 43 % (42-52); Hemoglobin 14.1 g/dl (14.0-18.0); Lymphocyte % 45.4 %; Mean Corpuscular HGB Conc 33 g/dl (31-36); Mean Corpuscular Hemoglobin 28 pg (27-31); Mean Corpuscular Volume 86 fL (80-94); Mean Platelet Volume 8.2 fL (7.4-10.4); Nucleated Red Blood Cells % 0.1; Platelet Count 185 10^3/ul (150-450); Red Blood Count 5.02 10^6/ul (4.00-5.40); Red Cell Distribution Width 16 % (10.5-15); White Blood Count 6.5 10^3/ul (3.5-10.8)
[2018-05-24] MEDS: Levothyroxine TAB* 150 MCG TAB PO SCH (05:56)
[2018-05-24 06:15] LABS: EGFR Non-African American 100.5 (>60)
[2018-05-24] MEDS: D5NS 0.9% 1000 ML BAG* 1,000 ML IV SCH (10:12)
[2018-05-24] MEDS: Nicotine Inhaler* 10 MG AMP INH PRN (16:34)
[2018-05-24] MEDS ORDERED: Mouth Piece, Nicotine* 1 EACH CARTRIDGE INH ONE (17:00)
--- NOTE | 2018-05-24 17:32 | PN ---
Subjective Date of Service: 05/24/18 Interval History: Pt is feeling ok. He states " I don't know what happened yesterday" when I asked about him drinking the hand condenser setter prior to the cab arriving [place] [facility] [place] [facility]. Objective Active Medications: Levothyroxine Sodium (Synthroid Tab*) 150 mcg PO DAILY@0600 [facility] Last Admin: 05/24/18 05:56 Dose: 150 mcg Nicotine (Nicotine Inhaler*) 10 mg INH Q2H PRN PRN Reason: CRAVING Last Admin: 05/24/18 16:34 Dose: 10 mg Nicotine (Nicotine Patch 21 Mg/24 Hr*) 1 patch TRANSDERM DAILY@0800 [facility] Pharmacy Profile Note (Nicotine Patch Removal Note*) 1 note PATCH OFF 2100 [facility] Vital Signs - 8 hr 05/24/18 17:00 Temperature 98.7 F Pulse Rate 64 Respiratory 24 Rate Blood Pressure 130/99 (mmHg) O2 Sat by Pulse 98 Oximetry Oxygen Devices in Use Now: None Appearance: Young disheveled male sitting up in bed, NAD Eyes: No Scleral Icterus Ears/Nose/Mouth/Throat: Mucous Membranes Moist Respiratory: Symmetrical Chest Expansion and Respiratory Effort, Clear to Auscultation Cardiovascular: NL Sounds; No Murmurs; No JVD, RRR, No Edema Abdominal: NL Sounds; No Tenderness; No Distention Extremities: No Clubbing, Cyanosis Skin: No Nodules or Sclerosis Neurological: Alert and Oriented x 3 Result Diagrams: 05/24/18 05:30 05/24/18 05:30 Assess/Plan/Problems-Billing Mr Angeles is a 28 yo M who has a h/o repeated hospitalizations for coricidin overdose who was readmitted to the hospital after ingesting about 1/3 bottle of hand condenser setter while awaiting the cab to pick him up from the hospital. - Patient Problems (1) Alcohol intoxication Current Visit: Yes Status: Acute Comment: Resolved. Pt does not have access to hand condenser setter currently. Meeting to discuss how to safely discharge pt occured today. Plan to reach out to [facility] for guidance on substance abuse treatment options. 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 (3) DVT prophylaxis Current Visit: Yes Status: Acute Code(s): [id number] - SNOMED Code(s): 194617719 Comment: Ambulation (4) Full code status Current Visit: Yes Status: Acute Code(s): Z78.9 - OTHER SPECIFIED HEALTH STATUS SNOMED Code(s): 539942772
--- NOTE | 2018-05-24 19:32 | CONSULT ---
Consult Consult: CONSULTING PHYSICIAN: Alee Barrientos DO ATTENDING PSYCHAITRIST: Candice Nicholson MD REASON FOR CONSULT: Capacity to make decision about his discharge, Status post intoxication with Hand New Vehicle Sales Consultant CHIEF COMPLAINT: "I have to change and get outpatient help for my addiction HISTORY OF THE PRESENT ILLNESS: Patient is a 28 y/o male with history of Coricidin Use Disorder, Alcohol Use Disorder, Hypothyroidism, Hepatitis C. Patient continues to be struggling with substance and alcohol use disorder. Patient has been switching between precontemplation and contemplation to get help and achieve sobriety. Patient was recently admitted from ED to medical floor/ICU for Coricidin and alcohol intoxication. Patient was to be discharged and during his wait time for a taxi again got intoxicated with hand santizer. Patient reported that he was unable to resist urges to use it. Patient was readmitted for medical observation and treatment. Patient feels better now and reports that he is setting up goals for his life. Patient is getting back into contemplation stage of motivation and get help for his substance and alcohol use disorder. Patient reports note feeling depressed, and is hopeful about the outcomes but do worry about relapse. Patient feels that he will go to [place] from the hospital to get assistance with food and housing at a motel. Patient also plans to get outpatient treatment for his substance/alcohol abuse treatment at [facility]. Patient reports that he has a friend living in [facility] that is a support for him and not an influence toward alcohol/substance abuse. Patient reports no suicidal ideation or intent in these intoxication episode. Patient reports no feeling of hopelessness, helplessness and worthlessness. Patient was offered voluntary stay at the hospital and to help him with inpatient drug/alcohol rehab program. But patient currently requesting discharge and wants to get help for his substance/alcohol use treatment on an outpatient basis. Patient reports no manic or psychotic symptoms. Patient behavior has been in control with no self-injurious behavior. Patient reported no suicidal/homicidal ideation, intent or plan. PAST PSYCHIATRIC AND SUBSTANCE ABUSE HISTORY: Patient psychiatric history from the chart, suggestive of long substance and alcohol use disorder with inpatient and outpatient substance/alcohol use treatment with limited benefits towards [facility] [place]. Patient has multiple attempts of intoxication with substance and alcohol with questionable intent of suicide as documented in chart. As patient reports his intent has been to get high. Patient has no history of homicidal ideation or intent. FAMILY/PSYCHOSOCIAL HISTORY: Patient reports that his mother when he was 6 years old. He has not met his father who has been in half-way for a manslaughter. Patient was raised by his aunt and uncle and still finds them to be supportive figure in his life. Although feels that he has distant them due to his drug/alcohol use. Patient reports that he was in [place] but recently came to [place] as he feels that he has friend that he thinks is going to be helpful with his current problem of substance/alcohol. MENTAL STATUS EXAMINATION: Appearance: Patient is 28 y/o male, appear older than stated age, making fair eye contact, fair hygiene, dressed in hospital gown, sitting on a hospital bed. Behavior: cooperative Gait: not assessed at this time Abnormal motor activity: none Speech: normal tone and volume, normal rate and rhythm Mood: I am feeling ok Affect: euthymic, appropriate smiles and thoughtful periods according to the conent Thought process: coherent Thought Content: Suicidal/Homicidal ideation: denied suicidal ideations, no hi Delusions: none Obsessions: none Phobia: none Perceptual disturbance: none Attention: fair Orientation: grossly intact Concentration: fair Memory: fair remote, recent Insight: fair at time of evaluation Judgment: fair at time of evaluation Impulse control: fair at time of evaluation DIAGNOSES: Substance/Alcohol Use Disorder, H/o Antisocial Personality traits, Hyopthyroidism, Hepatitis C RECOMMENDATIONS\\PLAN: Patient is a 28 y/o male with history of Coricidin Use Disorder, Alcohol Use Disorder, Hypothyroidism, Hepatitis C. Patient understood his struggle with substance and alcohol abuse. Patient has been contemplating to get treatment. Patient was offered voluntary stay at [facility] and subsequent effort to help with inpatient/outpatient rehab. Patient wants to be discharged from medical floor and obtain outpatient substance/alcohol abuse treatment. Patient was able to verbalize understanding of his recent attempts of getting high has put him in life threatening situation. Patient denied any suicidal/homicidal ideation, intent or plan. Patient has the capacity to make decision about his treatment plans for his substance abuse treatment and discharge from medical facility. Patient do not meet criteria for an involuntary hospitalization. Patient is not a danger to self or others if discharged hence he is psychiatrically cleared to be discharged to obtain outpatient help for substance /alcohol abuse. Candice Nicholson MD Attending Psychiatrist
[2018-05-25] MEDS: Levothyroxine TAB* 150 MCG TAB PO SCH (05:04)
[2018-05-25] MEDS ORDERED: Nicotine PATCH 21 MG/24 HR* PATCH TRANSDERM SCH (08:00)
[2018-05-25] MEDS: Nicotine Inhaler* 10 MG AMP INH PRN (16:35)
[2018-05-25 16:51] VITALS: BP 132/90
[2018-05-25] MEDS ORDERED: Nicotine Patch Removal NOTE PATCH OFF SCH (21:00)
--- NOTE | 2018-05-26 06:19 | DS ---
DISCHARGE SUMMARY: DATE OF ADMISSION: 05/23/18 DATE OF DISCHARGE: 05/25/18 PRIMARY CARE PROVIDER: None. 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 SECONDARY DIAGNOSIS: Recurrent Coricidin overdoses. DISCHARGE MEDICATIONS: Levothyroxine 150 mcg p.o. daily. HOSPITAL COURSE: Mr. Angeles is a 28-year-old male who has a pattern of Coricidin overdose requiring hospitalization for stabilization with subsequent, almost immediate, overdose following discharge with repeating the pattern. The patient has been having this pattern of frequent admissions over the last 10 years. He has had 11 hospitalizations since October of 2017. The patient was hospitalized initially on 05/19/18 with Coricidin overdose. He ultimately felt to be stable for discharge and discharged on 05/21/18. He immediately again overdosed on Coricidin and returned to the emergency room where he was readmitted to the intensive care unit. The patient was ultimately felt to be stable for discharge on 05/23/18. However, while awaiting the cab to come pick him up, he drank about a third of a bottle of hand associate agent [employer] sales while waiting in the ICU. The patient was felt to have already been discharged and therefore sent from the ICU to the emergency room for reevaluation. 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 The patient's alcohol level was elevated at 365. By the following morning, he was felt to be stable. This is 05/24/18. Given the patient's pattern of frequent readmissions and overdoses, a meeting was held to try to determine the best plan of action to care for Mr. Angeles and to try to prevent subsequent readmissions. Mental health staff reached out to [facility] to determine if there were any involuntary substance abuse treatment centers that could take a patient from a medical floor. This was deemed to not be possible. The patient had a capacity eval and was felt to have capacity. Subsequent meeting on was had again to discuss plan for potential readmission following this discharge. Ultimately, administration in senior nursing as well as myself and Social Work confronted Fernie about his pattern of behaviors and readmissions. It was determined that if the patient were to need to be readmitted, he would be admitted under observation status, medically managed until he was felt to be stable, and then immediately discharged from the hospital. There is a high suspicion that the patient overdoses or drinks alcohol as a secondary gain of being in the hospital as he is homeless and has difficulty obtaining assisted and food. At this point, the patient was felt to be medically stable for discharge home. On the day of discharge, the patient was awake, alert, and oriented, sitting up on the edge of the bed in no acute distress. His cardiac exam revealed a normal S1 and S2 with a regular rate and rhythm. His lungs were clear. His abdomen was soft, nontender, nondistended. His vital signs were stable with a blood pressure of 132/90, pulse of 93, respirations of 20, and a temp of 98.5. FOLLOWUP CONCERNS: The patient is being discharged to the [facility] assisted today, . ACTIVITY LEVEL: As tolerated. DIET: Regular. CONDITION ON DISCHARGE: Stable. TIME SPENT: Forty-five minutes was spent discharging this patient of which 30 minutes was spent formulating a plan for subsequent readmission and discussing this plan with Fernie. [id number]/[facility] #: [id number] SOLO
== END 2018-05-25 17:16 | disposition home or self-care (01) ==
LOC: ED 15:02 → INTOOBSV 18:01 → ICU 18:01 → MEDTELE 19:17
PROVIDERS: ADMIT Internal Medicine Critical Care Medicine; ATTEND Hospitalist
DX: F10.129 Alcohol abuse with intoxication, unspecified (principal); F41.9 Anxiety disorder, unspecified; F19.20 Other psychoactive substance dependence, uncomplicated; F39 Unspecified mood [affective] disorder; E03.9 Hypothyroidism, unspecified; R41.82 Altered mental status, unspecified; I10 Essential (primary) hypertension; Z87.891 Personal history of nicotine dependence
CPT/HCPCS: 36415; 71045; 80048; 80053; 80076; 80307; 80320; 81003; 82248; 82550; 82803; 83605; 85025; 93005; 99284; A9270-GY; G0378; G0480

== ENCOUNTER 2018-05-26 10:20 | Observation (INO) | payer OTHER ==
--- NOTE | 2018-05-26 10:46 | ED ---
Substance Abuse/Use - HPI Summary HPI Summary: A 28 y/o male brought in by JOSEPH gunter presents to [facility] with a chief complaint of substance abuse since the morning of 05/26/18. He admits to taking 64 Coricidin tabs and drinking 8 beers. He is unsure when he started taking pills and is unable to give a clear history of when he started drinking beers. He has slurred speech. The tabs contain 4 mg Chlorpheniramine Maleate and 30 mg Dextromethorphan Hydrobromide. He took these tabs with intent to get high. He claims that he usually takes 64 tabs and because he notes this is the normal dose to "get high and not ". Someone at the rescue mission saw him taking pills with odd behavior and called an ambulance. The patient has a known history of substance abuse. - History Of Current Complaint Chief Complaint: EDSubstanceAbuse Stated Complaint: OVERDOSE Time Seen by Provider: 05/26/18 10:26 Hx Obtained From: Patient Onset/Duration of Drug/ETOH Abuse: Hours Ingestion History: Type/Name Of Drug - Coricidin, Amount Ingested - 64 tabs Overdose Characteristics: Oral Timing Of Abuse: Binge Use Severity Initially: Moderate Severity Currently: Moderate Aggravating Factor(s): Nothing Alleviating Factor(s): Nothing Associated Signs And Symptoms: Other: - slurred speech Related Hx: Drug/Alcohol Last Used @ - 05/23/18 - Allergies/Home Medications Allergies/Adverse Reactions: Allergies Allergy/AdvReac Type Severity Reaction Status Date / Time No Known Allergies Allergy Verified 05/21/18 16:20 PMH/Surg Hx/FS Hx/Imm Hx Endocrine/Hematology History: Reports: Hx Thyroid Disease - Hypothyroidism Denies: Hx Anticoagulant Therapy, Hx Blood Disorders, Hx Blood Transfusions, Hx Bone Marrow Disease, Hx Diabetes, Hx Systemic Lupus Erythematosus, Hx Sickle Cell Disease, Hx Anemia, Hx Unexplained Bleeding, Other Endocrine/Hematological Disorders Cardiovascular History: Reports: Hx Hypertension Denies: Hx Aneurysm, Hx Angina, Hx Angioplasty, Hx Auto Implanted Cardiovert Defib, Hx Cardiac Arrest, Hx Cardiomegaly, Hx Congenital Heart Disease, Hx Congestive Heart Failure, Hx Coronary Artery Disease, Hx Deep Vein Thrombosis, Hx Embolism, Hx Hypercholesterolemia, Hx Hypotension, Hx Pacemaker/ICD, Hx Peripheral Vascular Disease, Hx Rheumatic Fever, Hx Syncope, Hx Valvular Heart Disease, Other Cardiovascular Problems/Disorders Respiratory History: Reports: Hx Pneumonia, Hx Seasonal Allergies Denies: Hx Asthma, Hx Chronic Bronchitis, Hx Chronic Obstructive Pulmonary Disease (COPD), Hx Cystic Fibrosis, Hx Lung Cancer, Hx Pleural Effusion, Hx Pulmonary Edema, Hx Pulmonary Embolism, Hx Sleep Apnea, Other Respiratory Problems/Disorders GI History: Reports: Hx Ulcer Denies: Hx Cirrhosis, Hx Crohn's Disease, Hx Diverticulosis, Hx Gall Bladder Disease, Hx Gastroesophageal Reflux Disease, Hx Gastrointestinal Bleed, Hx Hiatal Hernia, Hx Irritable Bowel, Hx Jaundice, Hx Obstructive Bowel, Hx Ileostomy, Hx Pyloric Stenosis, Other GI Disorders History: Denies: Hx Acute Renal Failure, Hx Benign Prostatic Hyperplasia, Hx Chronic Renal Failure, Hx Dialysis, Hx Kidney Infection, Hx Kidney Stones, Hx Renal Disease, Other Problems/Disorders Musculoskeletal History: Denies: Hx Arthritis, Hx Back Problems, Hx Bursitis, Hx Congenital Bone Abnormalities, Hx Fibromyalgia, Hx Gout, Hx Orthopedic Injury, Hx Osteoporosis, Hx Scoliosis, Hx Tendonitis, Other Musculoskeletal History Sensory History: Denies: Hx Cataracts, Hx Contacts or Glasses, Hx Eye Injury, Hx Eye Prosthesis, Hx Glaucoma, Hx Legally Blind, Hx Macular Degeneration, Hx Vision Problem, Hx Deafness, Hx Hearing Aid, Other Sensory Impairments Opthamlomology History: Denies: Hx Cataracts, Hx Contacts or Glasses, Hx Eye Injury, Hx Eye Prosthesis, Hx Glaucoma, Hx Legally Blind, Hx Macular Degeneration, Hx Vision Problem, Other Sensory Impairments Neurological History: Reports: Hx Headaches, Hx Seizures Denies: Hx Dementia, Hx Developmental Delay, Hx Migraine, Hx Nerve Disease, Hx Spinal Cord Injury, Hx Transient Ischemic Attacks (TIA), Other Neuro Impairments/Disorders Psychiatric History: Reports: Hx Anxiety, Hx Depression, Hx Post Traumatic Stress Disorder, Hx Inpatient Treatment, Hx Community Mental Health Tx, Hx Bipolar Disorder, Hx of Violent Episodes Against Others, Hx Substance Abuse, Other Psychiatric Issues/Disorders Denies: Hx Attention Deficit Hyperactivity Disorder, Hx Eating Disorder, Hx Panic Disorder, Hx Schizophrenia, Hx Suicide Attempt - Surgical History Surgery Procedure, Year, and Place: none Hx Anesthesia Reactions: No - Immunization History Date of Tetanus Vaccine: Unknown Date of Influenza Vaccine: None Infectious Disease History: No Infectious Disease History: Reports: Hx Hepatitis - Hep C Denies: Hx Clostridium Difficile, Hx Human Immunodeficiency Virus (HIV), Hx of Known/Suspected MRSA, Hx Shingles, Hx Tuberculosis, Hx Known/Suspected VRE, Hx Known/Suspected VRSA, History Other Infectious Disease, Traveled Outside the [place] in Last 30 Days - Family History Known Family History: Positive: Other - cancer Negative: Renal Disease - Social History Alcohol Use: Daily Alcohol Amount: states last drink was 2 months ago Hx Substance Use: Yes Substance Use Type: 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 Substance Use Comment - Amount & Last Used: 03/14/18 Coricidin overdose Hx Tobacco Use: Yes Smoking Status (MU): Former Smoker Type: Cigarettes Have You Smoked in the Last Year: Yes Review of Systems Positive: Slurred Speech Psychological: Other - Positive: Substance abuse All Other Systems Reviewed And Are Negative: Yes Physical Exam - Summary Physical Exam Summary: Appearance: The patient is well-nourished in no acute distress and in no acute pain. Skin: The skin is warm and dry and skin color reflects adequate perfusion. HEENT: The head is normocephalic and atraumatic. Horizontal nystagmus. The conjunctivae are clear and without drainage. Nares are patent and without drainage. Mouth reveals moist mucous membranes and the throat is without erythema and exudate. The external ears are intact. The ear canals are patent and without drainage. The tympanic membranes are intact. Neck: The neck is supple with full range of motion and non-tender. There are no carotid bruits. There is no neck vein distension. Respiratory: Chest is non-tender. Lungs are clear to auscultation and breath sounds are symmetrical and equal. Cardiovascular: Tachycardic. There is no murmur or rub auscultated. There is no peripheral edema and pulses are symmetrical and equal. Abdomen: The abdomen is soft and non-tender. There are normal bowel sounds heard in all four quadrants and there is no organomegaly palpated. Musculoskeletal: There is no back tenderness noted. Extremities are non-tender with full range of motion. There is good capillary refill. There is no peripheral edema or calf tenderness elicited. Neurological: Slurred speech. Patient is alert and oriented to person, place and time. The patient has symmetrical motor strength in all four extremities. Cranial nerves are grossly intact. Deep tendon reflexes are symmetrical and equal in all four extremities. Psychiatric: The patient has an appropriate affect and does not exhibit any anxiety or depression. Triage Information Reviewed: Yes Vital Signs On Initial Exam: Initial Vitals Temp Pulse Resp BP Pulse Ox 99.3 F 103 19 118/80 97 05/26/18 10:24 05/26/18 10:24 05/26/18 10:24 05/26/18 10:24 05/26/18 10:24 Vital Signs Reviewed: Yes Diagnostics - Vital Signs Vital Signs Temp Pulse Resp BP Pulse Ox 05/26/18 10:24 99.3 F 103 19 118/80 97 - Laboratory Result Diagrams: 05/26/18 10:51 05/26/18 10:51 Lab Statement: Any lab studies that have been ordered have been reviewed, and results considered in the medical decision making process. - EKG 10:48 Cardiac Rate: Other Rate - Borderline tachycardia at 98 bpm EKG Rhythm: Sinus Tachycardia Summary of EKG Findings: Borderline tachycardia, normal ST, no ectopy, no STEMI. Re-Evaluation - Re-Evaluation First Eval Re-Evaluation Time: 12:20 Change: Unchanged Comment: Patient states that he is feeling OK. Course/Dx - Course Course Of Treatment: Mr. Angeles presented by ambulance after having taken an overdose of Coricidin and drinking alcohol. He was borderline tachycardic on arrival with mildly slurred speech which is not his usual presentation normally he is quite tachycardic and poorly responsive after one of these overdoses. Therefore he was kept in the emergency department for a few hours. His initial blood alcohol was 200 and over the course of the next 2-3 hours rather than gradually improving he gradually got worse with additional tachycardia, more confusion and decreased responsiveness. Therefore the hospitalists were contacted and Dr. Barrientos came to the emergency department to admit him for acute overdose. - Diagnoses Provider Diagnoses: Dextromethorphan overdose, Alcohol intoxication - Physician Notifications Discussed Care Of Patient With: Alee Barrientos Time Discussed With Above Provider: 10:50 Instructed by Provider To: Other - Discussed case with Dr. Barrientos. At 12:55 she accepted the patient for admission. - Critical Care Time Critical Care Time: 30-74 min Discharge - Sign-Out/Discharge Documenting (check all that apply): Patient Departure - Admit - Discharge Plan Condition: Fair Disposition: ADMITTED TO [facility] - Billing Disposition and Condition Condition: FAIR Disposition: Admitted to [facility] - Attestation Statements Document Initiated by Scribe: Yes Documenting Scribe: Dave Gamboa Provider For Whom Scribe is Documenting (Include Credential): Brayan Haider MD Scribe Attestation: I, Dave Gamboa, scribed for Brayan Haider MD on 05/26/18 at 1645. Scribe Documentation Reviewed: Yes Provider Attestation: The documentation as recorded by the scribe, Dave Gamboa accurately reflects the service I personally performed and the decisions made by me, Brayan Haider MD Status of Scribe Document: Viewed
[2018-05-26 11:04] LABS: ABS Basophils 0 10^3/ul (0-0.2); ABS Eosinophils 0.1 10^3/ul (0-0.6); ABS Lymphocytes 2.3 10^3/ul (1.0-4.8); ABS Monocytes 0.6 10^3/ul (0-0.8); ABS Neutrophils 4.6 10^3/ul (1.5-7.7); ABS Nucleated RBC 0 10^3/ul; Eosinophil % 1.2 %; Hematocrit 44 % (42-52); Hemoglobin 14.5 g/dl (14.0-18.0); Lymphocyte % 29.8 %; Mean Corpuscular HGB Conc 33 g/dl (31-36); Mean Corpuscular Hemoglobin 28 pg (27-31); Mean Corpuscular Volume 85 fL (80-94); Mean Platelet Volume 7.9 fL (7.4-10.4); Nucleated Red Blood Cells % 0.1; Platelet Count 190 10^3/ul (150-450); Red Blood Count 5.12 10^6/ul (4.00-5.40); Red Cell Distribution Width 15 % (10.5-15); White Blood Count 7.6 10^3/ul (3.5-10.8)
[2018-05-26 11:32] LABS: Urine Appearance Clear; Urine Blood Negative (Negative); Urine Color Straw; Urine Ketones Negative (Negative); Urine Protein Negative (Negative); Urine Specific Gravity 1.005 (1.010-1.030); Urine Urobilinogen Negative (Negative)
[2018-05-26] MEDS ORDERED: NS 0.9% 1000 ML* 1,000 ML IV SCH ×2 (14:00)
--- NOTE | 2018-05-26 16:18 | HP ---
HISTORY AND PHYSICAL: DATE OF ADMISSION: 05/26/18 PRIMARY CARE PROVIDER: None. CHIEF COMPLAINT: Coricidin and alcohol intoxication. HISTORY OF PRESENT ILLNESS: Mr. Angeles is a 28-year-old male whom I discharged from the hospital last evening at approximately 5 p.m., who returns to the emergency room at approximately 10:30 on the day of admission after drinking 8 beers and taking 64 Coricidin tablets. The patient reportedly told the staff in the emergency room that he knows that he can take 64 tablets to become high, but not to kill himself. The patient has never had any intent to kill himself by overdosing on Coricidin. The patient will be admitted under observation status until he is medically stable as discussed with him yesterday. The patient has a long-standing history of recurrent overdoses within a very short period of time and being admitted to the hospital. The patient, per staff, shows signs that he enjoys being in the hospital and being cared for. There have also been comments to different providers stating that he is lonely when he is not at the hospital. PAST MEDICAL HISTORY: 1. Coricidin abuse. 2. Intermittent alcohol abuse. 3. Hypothyroidism. PAST SURGICAL HISTORY: Unable to be obtained from the patient at this point. MEDICATIONS: Synthroid 150 mcg p.o. daily. Most recent TSH on 05/21/18 was 2.66. ALLERGIES: No known drug allergies. FAMILY HISTORY: Unobtainable. SOCIAL HISTORY: The patient intermittently drink alcohol while abusing Coricidin. He is homeless. REVIEW OF SYSTEMS: Unobtainable. PHYSICAL EXAMINATION GENERAL: The patient is a well-developed, young male, lying in bed, staring into space, occasionally answering questions, but much less interactive than when he is not intoxicated on Coricidin and alcohol. VITAL SIGNS: Blood pressure 131/98, pulse 127, respirations 14, temp 99.3, O2 sats 95% on room air. HEENT: Pupils are dilated. They react to light. Oropharynx is somewhat dry. There is no submandibular, cervical, or supraclavicular adenopathy. Thyroid is not enlarged. No thyroid nodules noted. PULMONARY: Lungs are clear to auscultation anteriorly. CARDIAC: Normal S1, S2. Heart rate is tachycardiac, but regular. There is no lower extremity edema. ABDOMEN: Bowel sounds are present. Abdomen is soft, nontender, nondistended. MUSCULOSKELETAL: There is no cyanosis or clubbing of the digits. The patient does not spontaneously move his limbs at this time. NEUROLOGIC: The patient does not cooperate with exam. PSYCH: The patient is lethargic, but does answer a few questions. SKIN: Warm and dry. There are no rashes. DIAGNOSTIC STUDIES/LAB DATA: Labs: WBC 7.6, hemoglobin 14.5, hematocrit 44, platelets 190. Sodium 139, potassium 3.8, chloride 106, CO2 of 22, BUN 16, creatinine 1.0, glucose 114, lactic acid 2.5, calcium 9.1. Bilirubin 0.4, AST 19, ALT 28, alk phos 52. Albumin 4.3. Urinalysis reveals specific gravity of 1.005 and is otherwise clear. Serum alcohol 218, salicylate less than 2, Tylenol less than 15. Urine drug screen negative. ASSESSMENT AND PLAN: Mr. Angeles is a 28-year-old male, who once again drank alcohol and took 64 Coricidin tablets and now presents to the emergency room, encephalopathic from a toxic ingestion and will be admitted for medical stabilization. 1. Intoxication/encephalopathy secondary to toxic ingestion. The patient continues with his pattern of Coricidin abuse. Yesterday, a shawn discussion was held between Fernie and myself, administration and social work about his pattern of abuse and admitting into the hospital. At this point, the patient will be admitted to an observation room where he will be monitored on telemetry. He will receive IV fluids and when he is no longer encephalopathic and his heart rate is controlled, he will be discharged back into the community. The patient was aware of this plan as of yesterday and this action will continue to be followed for any subsequent episodes of intoxification. 2. Hyperthyroidism. We will resume Synthroid 150 mcg daily. 3. DVT prophylaxis. According to the Adult Thrombosis Prophylaxis Risk Factor Assessment Guide, the patient has a total risk factor score of 1 making him low risk, ambulation will be utilized for DVT prophylaxis. 4. Code status is full. TIME SPENT: 40 minutes was spent admitting this patient. [id number]/[facility] #: [id number] SOLO
[2018-05-26] MEDS ORDERED: LORazepam INJ* 2 MG/ML 1 ML VIAL IV PUSH PRN (18:08)
[2018-05-27] MEDS ORDERED: Levothyroxine TAB* 150 MCG TAB PO SCH (06:00)
[2018-05-27 09:55] VITALS: BP 128/81
--- NOTE | 2018-05-28 04:04 | DS ---
DISCHARGE SUMMARY: DATE OF ADMISSION: 05/26/18 DATE OF DISCHARGE: 05/27/18 PRIMARY CARE PROVIDER: None. DISCHARGE DIAGNOSIS: Coricidin and alcohol intoxication. SECONDARY DIAGNOSES: 1. History of frequent admissions for Coricidin and alcohol abuse. 2. Hypothyroidism. HOSPITAL COURSE: This is a 28-year-old male, who is well known to the hospital for frequent admissions for Coricidin and alcohol abuse. The patient has had several frequent admissions recently. He was discharged on 05/25/18 for another Coricidin overdose. He was discharged that day on 5 p.m. He returned to the emergency room at 10:30 p.m. on 05/26/18 stating he drank 8 beers and took 64 Coricidin tablets. 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 The patient was admitted on observation on telemetry with IV fluids, p.r.n. benzodiazepine for agitation. The patient this morning is alert and oriented. I spoke with him, he planned to take a Medicaid taxi home to a homeless fdc, he ate lunch without any issues, denying any pain. He states he does not want to come back here that he is going to try and get his life back together. We discussed following up with the [facility] office or there is also the medical [facility] primary [facility] that he could follow up with that helps people who have problems with addiction. The patient is to continue on his Synthroid and to follow up and get plugged in with outpatient resources to help avoid future frequent admissions. The patient's vitals, he is in normal sinus, no longer tachycardic with remaining normal vital signs, ambulating and tolerating p.o. ACTIVITY: As tolerated. DIET: Regular. FOLLOWUP: As above. PATIENT TIME: Greater than 30 minutes was spent doing this discharge summary, more than half the time was spent in direct patient contact. [id number]/[facility] #: [id number] SOLO
== END 2018-05-27 14:20 | disposition home or self-care (01) ==
LOC: ED 10:20 → MEDTELE 15:49
PROVIDERS: ADMIT Hospitalist; ATTEND Pediatrics
DX: F10.129 Alcohol abuse with intoxication, unspecified (principal); F19.90 Other psychoactive substance use, unspecified, uncomplicated; E03.9 Hypothyroidism, unspecified; F32.9 Major depressive disorder, single episode, unspecified; R47.81 Slurred speech; I10 Essential (primary) hypertension; Z87.891 Personal history of nicotine dependence
CPT/HCPCS: 36415; 80053; 80307; 80320; 80329; 81003; 82550; 83605; 85025; 93005; 96374; 96375; 99284; A9270-GY; G0378; G0480

== ENCOUNTER 2018-05-27 18:30 | Emergency (ER) | payer OTHER ==
--- NOTE | 2018-05-27 18:59 | ED ---
Substance Abuse/Use - HPI Summary HPI Summary: Level 5 caveat: Unable to obtain complete HPI from patient due to AMS. The pt is a 28 y/o male brought in by ambulance to [facility] c/o unresponsiveness s/ p a suspected substance overdose. He was found at the local [facility] [place]. As per EMS, the pt smells of EtOH but they are unsure what he took. Nobody saw him consuming EtOH today. The pt talked briefly at the scene. EMS notes an abrasion on the L side of his face. He awakens to painful stimuli. Home Medications Medication Instructions Recorded Confirmed Type Unobtainable 05/27/18 05/27/18 History - History Of Current Complaint Chief Complaint: EDOverdose Stated Complaint: OVERDOSE Hx Obtained From: EMS Hx From Patient Unobtainable Due To: Altered Mental Status Onset/Duration of Drug/ETOH Abuse: Hours Aggravating Factor(s): Nothing Alleviating Factor(s): Nothing Associated Signs And Symptoms: Altered Mental Status - Allergies/Home Medications Allergies/Adverse Reactions: Allergies Allergy/AdvReac Type Severity Reaction Status Date / Time No Known Allergies Allergy Verified 05/21/18 16:20 Home Medications: Home Medications Unobtainable 05/27/18 [History Confirmed 05/27/18] PMH/Surg Hx/FS Hx/Imm Hx Previously Healthy: No - Level 5 caveat: Unable to obtain complete PMHx from patient due to AMS. Endocrine/Hematology History: Reports: Hx Thyroid Disease - Hypothyroidism Denies: Hx Anticoagulant Therapy, Hx Blood Disorders, Hx Blood Transfusions, Hx Bone Marrow Disease, Hx Diabetes, Hx Systemic Lupus Erythematosus, Hx Sickle Cell Disease, Hx Anemia, Hx Unexplained Bleeding, Other Endocrine/Hematological Disorders Cardiovascular History: Reports: Hx Hypertension Denies: Hx Aneurysm, Hx Angina, Hx Angioplasty, Hx Auto Implanted Cardiovert Defib, Hx Cardiac Arrest, Hx Cardiomegaly, Hx Congenital Heart Disease, Hx Congestive Heart Failure, Hx Coronary Artery Disease, Hx Deep Vein Thrombosis, Hx Embolism, Hx Hypercholesterolemia, Hx Hypotension, Hx Pacemaker/ICD, Hx Peripheral Vascular Disease, Hx Rheumatic Fever, Hx Syncope, Hx Valvular Heart Disease, Other Cardiovascular Problems/Disorders Respiratory History: Reports: Hx Pneumonia, Hx Seasonal Allergies Denies: Hx Asthma, Hx Chronic Bronchitis, Hx Chronic Obstructive Pulmonary Disease (COPD), Hx Cystic Fibrosis, Hx Lung Cancer, Hx Pleural Effusion, Hx Pulmonary Edema, Hx Pulmonary Embolism, Hx Sleep Apnea, Other Respiratory Problems/Disorders GI History: Reports: Hx Ulcer Denies: Hx Cirrhosis, Hx Crohn's Disease, Hx Diverticulosis, Hx Gall Bladder Disease, Hx Gastroesophageal Reflux Disease, Hx Gastrointestinal Bleed, Hx Hiatal Hernia, Hx Irritable Bowel, Hx Jaundice, Hx Obstructive Bowel, Hx Ileostomy, Hx Pyloric Stenosis, Other GI Disorders History: Denies: Hx Acute Renal Failure, Hx Benign Prostatic Hyperplasia, Hx Chronic Renal Failure, Hx Dialysis, Hx Kidney Infection, Hx Kidney Stones, Hx Renal Disease, Other Problems/Disorders Musculoskeletal History: Denies: Hx Arthritis, Hx Back Problems, Hx Bursitis, Hx Congenital Bone Abnormalities, Hx Fibromyalgia, Hx Gout, Hx Orthopedic Injury, Hx Osteoporosis, Hx Scoliosis, Hx Tendonitis, Other Musculoskeletal History Sensory History: Denies: Hx Cataracts, Hx Contacts or Glasses, Hx Eye Injury, Hx Eye Prosthesis, Hx Glaucoma, Hx Legally Blind, Hx Macular Degeneration, Hx Vision Problem, Hx Deafness, Hx Hearing Aid, Other Sensory Impairments Opthamlomology History: Denies: Hx Cataracts, Hx Contacts or Glasses, Hx Eye Injury, Hx Eye Prosthesis, Hx Glaucoma, Hx Legally Blind, Hx Macular Degeneration, Hx Vision Problem, Other Sensory Impairments Neurological History: Reports: Hx Headaches, Hx Seizures Denies: Hx Dementia, Hx Developmental Delay, Hx Migraine, Hx Nerve Disease, Hx Spinal Cord Injury, Hx Transient Ischemic Attacks (TIA), Other Neuro Impairments/Disorders Psychiatric History: Reports: Hx Anxiety, Hx Depression, Hx Post Traumatic Stress Disorder, Hx Inpatient Treatment, Hx Community Mental Health Tx, Hx Bipolar Disorder, Hx of Violent Episodes Against Others, Hx Substance Abuse, Other Psychiatric Issues/Disorders Denies: Hx Attention Deficit Hyperactivity Disorder, Hx Eating Disorder, Hx Panic Disorder, Hx Schizophrenia, Hx Suicide Attempt - Cancer History Cancer Type, Location and Year: None reported - Surgical History Surgery Procedure, Year, and Place: none Hx Anesthesia Reactions: No - Immunization History Date of Tetanus Vaccine: Unknown Date of Influenza Vaccine: None Infectious Disease History: No Infectious Disease History: Reports: Hx Hepatitis - Hep C Denies: Hx Clostridium Difficile, Hx Human Immunodeficiency Virus (HIV), Hx of Known/Suspected MRSA, Hx Shingles, Hx Tuberculosis, Hx Known/Suspected VRE, Hx Known/Suspected VRSA, History Other Infectious Disease, Traveled Outside the [place] in Last 30 Days - Family History Known Family History: Positive: Other - cancer Negative: Renal Disease - Social History Occupation: Unemployed Lives: Assisted Living - Pt is homeless Alcohol Use: Daily Alcohol Amount: unk Hx Substance Use: Yes Substance Use Type: 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 Substance Use Comment - Amount & Last Used: 03/14/18 Coricidin overdose Hx Tobacco Use: Yes Smoking Status (MU): Former Smoker Type: Cigarettes Have You Smoked in the Last Year: Yes Review of Systems - ROS Summary Review of Systems Summary: Level 5 caveat: Unable to obtain complete ROS from patient due to AMS. Constitutional: Other - Positive Unresponsiveness Skin: Other - Positive: facial abrasion All Other Systems Reviewed And Are Negative: No Physical Exam - Summary Physical Exam Summary: Level 5 caveat: Unable to obtain complete PE from patient due to AMS. Appearance: The patient is well-nourished in no acute respiratory distress and in no acute pain. Skin: Puncture in the R axillar and at the back of the L hand. HEENT: The head is normocephalic and atraumatic. The pupils are equal and reactive. The conjunctivae are clear and without drainage. Nares are patent and without drainage. Mouth reveals moist mucous membranes and the throat is without erythema and exudate. The external ears are intact. The ear canals are patent and without drainage. The tympanic membranes are intact. Neck: The neck is supple with full range of motion and non-tender. There are no carotid bruits. There is no neck vein distension. Respiratory: Chest is non-tender. Lungs are clear to auscultation and breath sounds are symmetrical and equal. Cardiovascular: Heart is regular rate and rhythm. There is no murmur or rub auscultated. There is no peripheral edema and pulses are symmetrical and equal. Abdomen: The abdomen is soft and non-tender. There are normal bowel sounds heard in all four quadrants and there is no organomegaly palpated. Musculoskeletal: There is no back tenderness noted. Extremities are non-tender with full range of motion. There is good capillary refill. There is no peripheral edema or calf tenderness elicited. Neurological: Patient is alert and oriented to person, place and time. The patient has symmetrical motor strength in all four extremities. Cranial nerves are grossly intact. Deep tendon reflexes are symmetrical and equal in all four extremities. Psychiatric: The patient has an appropriate affect and does not exhibit any anxiety or depression. Triage Information Reviewed: Yes Vital Signs On Initial Exam: Initial Vitals Temp Pulse Resp BP Pulse Ox 99.2 F 103 26 116/72 94 05/27/18 18:40 05/27/18 18:40 05/27/18 18:40 05/27/18 18:40 05/27/18 18:40 Vital Signs Reviewed: Yes Completion Of Physical Exam Limited Due To: Altered Mental Status Diagnostics - Vital Signs Vital Signs Temp Pulse Resp BP Pulse Ox 05/27/18 18:44 101 24 117/73 94 05/27/18 18:42 102 18 95 05/27/18 18:40 99.2 F 103 26 116/72 94 - Laboratory Result Diagrams: 05/27/18 19:26 05/27/18 19:26 Lab Statement: Any lab studies that have been ordered have been reviewed, and results considered in the medical decision making process. - EKG 19:12 Cardiac Rate: NL - 97 bpm EKG Rhythm: Sinus Rhythm Course/Dx - Course Course Of Treatment: Fernie fairly often presents to the emergency department after taking an overdose of Coricidin. He did so yesterday. Yesterday when he presented he was intoxicated and he was observed for a few hours. Writhing gradually improving sensorium and is borderline tachycardia over that time, he worsened confirming that he had likely overdosed again. He was admitted to the hospital overnight and discharged earlier this afternoon. He represented in a stuporous state although I suspect to some degree he is just being uncooperative. Indeed his blood alcohol returned at 254 and we have been watching him for a few hours and he has not at this point become tachycardic. My expectation is that we watch him until he is sober and he will be discharged unless there is clinical evidence that he has overdosed again. - Diagnoses Provider Diagnoses: Alcohol intoxication Discharge - Sign-Out/Discharge Documenting (check all that apply): Sign-Out Patient Signing out patient TO: Twan Villarreal - Discharge Plan Condition: Stable [facility]errals: [facility] [address] [Outside] - Billing Disposition and Condition Condition: STABLE - Attestation Statements Document Initiated by Scribe: Yes Documenting Scribe: Kaley Olmedo Provider For Whom Scribe is Documenting (Include Credential): Dr. Brayan Haider MD Scribe Attestation: I, Kaley Olmedo , scribed for Dr. Brayan Haider MD on 05/27/18 at 2140. Scribe Documentation Reviewed: Yes Provider Attestation: The documentation as recorded by the scribe, Kaley Olmedo accurately reflects the service I personally performed and the decisions made by me, Dr. Brayan Haider MD Status of Scribe Document: Viewed
[2018-05-27] MEDS ORDERED: NS 0.9% 1000 ML* 1,000 ML IV ONE (19:11)
[2018-05-27 19:37] LABS: ABS Basophils 0.1 10^3/ul (0-0.2); ABS Eosinophils 0.2 10^3/ul (0-0.6); ABS Lymphocytes 3.4 10^3/ul (1.0-4.8); ABS Neutrophils 4.7 10^3/ul (1.5-7.7); ABS Nucleated RBC 0 10^3/ul; Eosinophil % 2.7 %; Hematocrit 44 % (42-52); Hemoglobin 14.5 g/dl (14.0-18.0); Lymphocyte % 36.3 %; Mean Corpuscular HGB Conc 33 g/dl (31-36); Mean Corpuscular Hemoglobin 29 pg (27-31); Mean Corpuscular Volume 86 fL (80-94); Nucleated Red Blood Cells % 0; Platelet Count 202 10^3/ul (150-450); Red Blood Count 5.06 10^6/ul (4.00-5.40); Red Cell Distribution Width 16 % (10.5-15); White Blood Count 9.3 10^3/ul (3.5-10.8)
[2018-05-27 19:45] LABS: Urine Appearance Clear; Urine Blood Negative (Negative); Urine Color Straw; Urine Ketones Negative (Negative); Urine Protein Negative (Negative); Urine Specific Gravity 1.002 (1.010-1.030); Urine Urobilinogen Negative (Negative)
[2018-05-27 19:55] LABS: EGFR Non-African American 91.1 (>60)
--- NOTE | 2018-05-27 23:11 | ED ---
Progress - Progress Note Progress Note: Patient is received as a sign out from Dr. Haider to Dr. Villarreal at 2200 05/27/18 pending sobriety of patient. 0142 - Patient was ambulated with steady gait around ED department. Patient is sober at this point, he will be discharged to home. Re-Evaluation - Re-Evaluation First Eval Re-Evaluation Time: 01:42 Change: Improved Comment: 0142 - Patient was ambulated with steady gait around ED department. Patient is sober at this point, he will be discharged to home. Course/Dx - Course Course Of Treatment: Patient is received as a sign out from Dr. Haider to Dr. Villarreal at 2200 05/27/18 pending sobriety of patient. 0142 - Patient was ambulated with steady gait around ED department. Patient is sober at this point , he will be discharged to home. - Diagnoses Provider Diagnoses: Alcohol intoxication Discharge - Sign-Out/Discharge Documenting (check all that apply): Patient Departure - discharge - Discharge Plan Condition: Stable Disposition: HOME Patient Education Materials: Alcohol Intoxication (ED) Referrals: [facility] [Outside] - 2 Days Additional Instructions: RETURN TO THE EMERGENCY DEPARTMENT FOR CHANGING OR WORSENING SYMPTOMS. FOLLOW UP WITH PRIMARY CARE PHYSICIAN IN 1-2 DAYS. - Attestation Statements Document Initiated by Scribe: Yes Documenting Scribe: SHERWIN HALL Provider For Whom Mario is Documenting (Include Credential): SCARLETT VILLARREAL MD Scribe Attestation: SHERWIN Brunner , scribed for SCARLETT VILLARREAL MD on 05/28/18 at 0145. Status of Scribe Document: Ready
[2018-05-28 02:31] VITALS: BP 134/85
== END 2018-05-28 02:25 | disposition home or self-care (01) ==
LOC: ED 18:30
DX: F10.129 Alcohol abuse with intoxication, unspecified (principal); Z87.891 Personal history of nicotine dependence; Z86.19 Personal history of other infectious and parasitic diseases
CPT/HCPCS: 36415; 80053; 80320; 80329; 81003; 83605; 85025; 93005; 99283; G0480

== ENCOUNTER 2018-05-28 13:44 | Emergency (ER) | payer OTHER ==
--- NOTE | 2018-05-28 13:50 | ED ---
Altered Mental Status - History Of Current Complaint Stated Complaint: OVERDOSE - Allergies/Home Medications Allergies/Adverse Reactions: Allergies Allergy/AdvReac Type Severity Reaction Status Date / Time No Known Allergies Allergy Verified 05/21/18 16:20 PMH/Surg Hx/FS Hx/Imm Hx Endocrine/Hematology History: Reports: Hx Thyroid Disease - Hypothyroidism Denies: Hx Anticoagulant Therapy, Hx Blood Disorders, Hx Blood Transfusions, Hx Bone Marrow Disease, Hx Diabetes, Hx Systemic Lupus Erythematosus, Hx Sickle Cell Disease, Hx Anemia, Hx Unexplained Bleeding, Other Endocrine/Hematological Disorders Cardiovascular History: Reports: Hx Hypertension Denies: Hx Aneurysm, Hx Angina, Hx Angioplasty, Hx Auto Implanted Cardiovert Defib, Hx Cardiac Arrest, Hx Cardiomegaly, Hx Congenital Heart Disease, Hx Congestive Heart Failure, Hx Coronary Artery Disease, Hx Deep Vein Thrombosis, Hx Embolism, Hx Hypercholesterolemia, Hx Hypotension, Hx Pacemaker/ICD, Hx Peripheral Vascular Disease, Hx Rheumatic Fever, Hx Syncope, Hx Valvular Heart Disease, Other Cardiovascular Problems/Disorders Respiratory History: Reports: Hx Pneumonia, Hx Seasonal Allergies Denies: Hx Asthma, Hx Chronic Bronchitis, Hx Chronic Obstructive Pulmonary Disease (COPD), Hx Cystic Fibrosis, Hx Lung Cancer, Hx Pleural Effusion, Hx Pulmonary Edema, Hx Pulmonary Embolism, Hx Sleep Apnea, Other Respiratory Problems/Disorders GI History: Reports: Hx Ulcer Denies: Hx Cirrhosis, Hx Crohn's Disease, Hx Diverticulosis, Hx Gall Bladder Disease, Hx Gastroesophageal Reflux Disease, Hx Gastrointestinal Bleed, Hx Hiatal Hernia, Hx Irritable Bowel, Hx Jaundice, Hx Obstructive Bowel, Hx Ileostomy, Hx Pyloric Stenosis, Other GI Disorders History: Denies: Hx Acute Renal Failure, Hx Benign Prostatic Hyperplasia, Hx Chronic Renal Failure, Hx Dialysis, Hx Kidney Infection, Hx Kidney Stones, Hx Renal Disease, Other Problems/Disorders Musculoskeletal History: Denies: Hx Arthritis, Hx Back Problems, Hx Bursitis, Hx Congenital Bone Abnormalities, Hx Fibromyalgia, Hx Gout, Hx Orthopedic Injury, Hx Osteoporosis, Hx Scoliosis, Hx Tendonitis, Other Musculoskeletal History Sensory History: Denies: Hx Cataracts, Hx Contacts or Glasses, Hx Eye Injury, Hx Eye Prosthesis, Hx Glaucoma, Hx Legally Blind, Hx Macular Degeneration, Hx Vision Problem, Hx Deafness, Hx Hearing Aid, Other Sensory Impairments Opthamlomology History: Denies: Hx Cataracts, Hx Contacts or Glasses, Hx Eye Injury, Hx Eye Prosthesis, Hx Glaucoma, Hx Legally Blind, Hx Macular Degeneration, Hx Vision Problem, Other Sensory Impairments Neurological History: Reports: Hx Headaches, Hx Seizures Denies: Hx Dementia, Hx Developmental Delay, Hx Migraine, Hx Nerve Disease, Hx Spinal Cord Injury, Hx Transient Ischemic Attacks (TIA), Other Neuro Impairments/Disorders Psychiatric History: Reports: Hx Anxiety, Hx Depression, Hx Post Traumatic Stress Disorder, Hx Inpatient Treatment, Hx Community Mental Health Tx, Hx Bipolar Disorder, Hx of Violent Episodes Against Others, Hx Substance Abuse, Other Psychiatric Issues/Disorders Denies: Hx Attention Deficit Hyperactivity Disorder, Hx Eating Disorder, Hx Panic Disorder, Hx Schizophrenia, Hx Suicide Attempt - Cancer History Cancer Type, Location and Year: None reported - Surgical History Surgery Procedure, Year, and Place: none Hx Anesthesia Reactions: No - Immunization History Date of Tetanus Vaccine: Unknown Date of Influenza Vaccine: None Infectious Disease History: Reports: Hx Hepatitis - Hep C Denies: Hx Clostridium Difficile, Hx Human Immunodeficiency Virus (HIV), Hx of Known/Suspected MRSA, Hx Shingles, Hx Tuberculosis, Hx Known/Suspected VRE, Hx Known/Suspected VRSA, History Other Infectious Disease, Traveled Outside the [place] in Last 30 Days - Family History Known Family History: Positive: Other - cancer Negative: Renal Disease - Social History Alcohol Use: Daily Alcohol Amount: unk Hx Substance Use: Yes Substance Use Type: 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 Substance Use Comment - Amount & Last Used: 03/14/18 Coricidin overdose Hx Tobacco Use: Yes Smoking Status (MU): Former Smoker Type: Cigarettes Have You Smoked in the Last Year: Yes Discharge - Discharge Plan Referrals: No Primary Care Phys,NOPCP [Primary Care Provider] - - Attestation Statements Document Initiated by Scribe: Yes Documenting Scribe: Kaley Olmedo Provider For Whom Scribe is Documenting (Include Credential): Dr. Javed Felipe MD Scribe Attestation: Kaley Brunner scribed for Dr. Javed Felipe MD on 05/28/18 at 1349.
--- NOTE | 2018-05-28 13:56 | ED ---
Substance Abuse/Use - HPI Summary HPI Summary: The pt is a 28 y/o male brought in by ambulance to [facility] c/o substance overdose. He says he took 30 cough pills to "feel high". He denies SI. EMS found the pt lying on the grass across the street after a bystander called the police. As per EMS, the pt was gibberish and his blood pressure was normal en route. He was not tachycardic. No medications were administered. They did not find any EtOH bottles near him. He reports some EtOH consumption today. The pt stays at the local [facility] due to homelessness. He was seen yesterday night at [facility] for the same sx and discharged. Home Medications Medication Instructions Recorded Confirmed Type Unobtainable 05/27/18 05/27/18 History - History Of Current Complaint Stated Complaint: OVERDOSE Time Seen by Provider: 05/28/18 13:51 Hx Obtained From: Patient, EMS Onset/Duration of Drug/ETOH Abuse: Hours Ingestion History: Type/Name Of Drug - Cough pills Overdose Characteristics: Oral Aggravating Factor(s): Other - Homelessness Alleviating Factor(s): Nothing - Allergies/Home Medications Allergies/Adverse Reactions: Allergies Allergy/AdvReac Type Severity Reaction Status Date / Time No Known Allergies Allergy Verified 05/21/18 16:20 PMH/Surg Hx/FS Hx/Imm Hx Previously Healthy: No Endocrine/Hematology History: Reports: Hx Thyroid Disease - Hypothyroidism Denies: Hx Anticoagulant Therapy, Hx Blood Disorders, Hx Blood Transfusions, Hx Bone Marrow Disease, Hx Diabetes, Hx Systemic Lupus Erythematosus, Hx Sickle Cell Disease, Hx Anemia, Hx Unexplained Bleeding, Other Endocrine/Hematological Disorders Cardiovascular History: Reports: Hx Hypertension Denies: Hx Aneurysm, Hx Angina, Hx Angioplasty, Hx Auto Implanted Cardiovert Defib, Hx Cardiac Arrest, Hx Cardiomegaly, Hx Congenital Heart Disease, Hx Congestive Heart Failure, Hx Coronary Artery Disease, Hx Deep Vein Thrombosis, Hx Embolism, Hx Hypercholesterolemia, Hx Hypotension, Hx Pacemaker/ICD, Hx Peripheral Vascular Disease, Hx Rheumatic Fever, Hx Syncope, Hx Valvular Heart Disease, Other Cardiovascular Problems/Disorders Respiratory History: Reports: Hx Pneumonia, Hx Seasonal Allergies Denies: Hx Asthma, Hx Chronic Bronchitis, Hx Chronic Obstructive Pulmonary Disease (COPD), Hx Cystic Fibrosis, Hx Lung Cancer, Hx Pleural Effusion, Hx Pulmonary Edema, Hx Pulmonary Embolism, Hx Sleep Apnea, Other Respiratory Problems/Disorders GI History: Reports: Hx Ulcer Denies: Hx Cirrhosis, Hx Crohn's Disease, Hx Diverticulosis, Hx Gall Bladder Disease, Hx Gastroesophageal Reflux Disease, Hx Gastrointestinal Bleed, Hx Hiatal Hernia, Hx Irritable Bowel, Hx Jaundice, Hx Obstructive Bowel, Hx Ileostomy, Hx Pyloric Stenosis, Other GI Disorders History: Denies: Hx Acute Renal Failure, Hx Benign Prostatic Hyperplasia, Hx Chronic Renal Failure, Hx Dialysis, Hx Kidney Infection, Hx Kidney Stones, Hx Renal Disease, Other Problems/Disorders Musculoskeletal History: Denies: Hx Arthritis, Hx Back Problems, Hx Bursitis, Hx Congenital Bone Abnormalities, Hx Fibromyalgia, Hx Gout, Hx Orthopedic Injury, Hx Osteoporosis, Hx Scoliosis, Hx Tendonitis, Other Musculoskeletal History Sensory History: Denies: Hx Cataracts, Hx Contacts or Glasses, Hx Eye Injury, Hx Eye Prosthesis, Hx Glaucoma, Hx Legally Blind, Hx Macular Degeneration, Hx Vision Problem, Hx Deafness, Hx Hearing Aid, Other Sensory Impairments Opthamlomology History: Denies: Hx Cataracts, Hx Contacts or Glasses, Hx Eye Injury, Hx Eye Prosthesis, Hx Glaucoma, Hx Legally Blind, Hx Macular Degeneration, Hx Vision Problem, Other Sensory Impairments Neurological History: Reports: Hx Headaches, Hx Seizures Denies: Hx Dementia, Hx Developmental Delay, Hx Migraine, Hx Nerve Disease, Hx Spinal Cord Injury, Hx Transient Ischemic Attacks (TIA), Other Neuro Impairments/Disorders Psychiatric History: Reports: Hx Anxiety, Hx Depression, Hx Post Traumatic Stress Disorder, Hx Inpatient Treatment, Hx Community Mental Health Tx, Hx Bipolar Disorder, Hx of Violent Episodes Against Others, Hx Substance Abuse, Other Psychiatric Issues/Disorders Denies: Hx Attention Deficit Hyperactivity Disorder, Hx Eating Disorder, Hx Panic Disorder, Hx Schizophrenia, Hx Suicide Attempt - Cancer History Cancer Type, Location and Year: None reported - Surgical History Surgery Procedure, Year, and Place: none Hx Anesthesia Reactions: No - Immunization History Date of Tetanus Vaccine: Unknown Date of Influenza Vaccine: None Infectious Disease History: Reports: Hx Hepatitis - Hep C Denies: Hx Clostridium Difficile, Hx Human Immunodeficiency Virus (HIV), Hx of Known/Suspected MRSA, Hx Shingles, Hx Tuberculosis, Hx Known/Suspected VRE, Hx Known/Suspected VRSA, History Other Infectious Disease, Traveled Outside the [place] in Last 30 Days - Family History Known Family History: Positive: Other - cancer Negative: Renal Disease - Social History Occupation: Unemployed Lives: Assisted Living - [facility] [place] Alcohol Use: Daily Alcohol Amount: unk Hx Substance Use: Yes Substance Use Type: 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 Substance Use Comment - Amount & Last Used: 03/14/18 Coricidin overdose Hx Tobacco Use: Yes Smoking Status (MU): Former Smoker Type: Cigarettes Have You Smoked in the Last Year: Yes Review of Systems Constitutional: Other - Positive: cough medication ingestion (30 pills), EtOH consumption Negative: Fever Negative: Palpitations Positive: no symptoms reported All Other Systems Reviewed And Are Negative: Yes Physical Exam - Summary Physical Exam Summary: Constitutional: Well-developed, Well-nourished, Drowsy. (-) Distressed Skin: Warm, Dry HENT: Normocephalic; Atraumatic Eyes: Conjunctiva normal, (+) Nystagmus Neck: Musculoskeletal ROM normal neck. (-) JVD, (-) Stridor, (-) Tracheal deviation Cardio: Rhythm regular, rate normal, Heart sounds normal; Intact distal pulses; The pedal pulses are 2+ and symmetric. Radial pulses are 2+ and symmetric. (-) Murmur Pulmonary/Chest wall: Effort normal. (-) Respiratory distress, (-) Wheezes, (-) Rales Abd: Soft, (-) epigastric tenderness, (-) Distension, (-) Guarding, (-) Rebound Musculoskeletal: (-) Edema Lymph: (-) Cervical adenopathy Neuro: Drowsy, (+) Dysmetria Psych: Mood and affect Normal Triage Information Reviewed: Yes Vital Signs On Initial Exam: Initial Vital Signs Temp 98.5 F 05/28/18 13:49 Pulse 101 05/28/18 13:49 Resp 18 05/28/18 13:49 BP 140/100 05/28/18 13:49 Pulse Ox 96 05/28/18 13:49 Vital Signs Reviewed: Yes Diagnostics - Laboratory Result Diagrams: 05/28/18 14:41 05/28/18 14:41 Lab Statement: Any lab studies that have been ordered have been reviewed, and results considered in the medical decision making process. - EKG 14:09 Cardiac Rate: NL - 95 bpm EKG Rhythm: Sinus Rhythm Summary of EKG Findings: NSR at 95 BPM, P waves, QRS complex, and T waves are within normal limits, T waves and intervals are normal, no ischemic changes. This is a normal EKG Re-Evaluation - Re-Evaluation First Eval Re-Evaluation Time: 16:39 Change: Improved - The pt says that he consumed IPA. Second Eval Re-Evaluation Time: 21:23 Change: Improved - The pt is awake and fluent. His gait is steady. When asked how he affords his medications and EtOH, he said that he steals them from [employer]. I discussed the dispo plan including referrals with him. Course/Dx - Course Course Of Treatment: A 28 year-old M presents to the ED with a CC of substance overdose. He says he took 30 cough pills to feel high. He denies SI. The patient has been seen in the ED multiple times for OD. A physical exam revealed drowsiness, nystagmus and dysmetria. In the ED course, pt was given Ammonia INH once, Charcoal 100 mg PO and N.s 1000 ml IV which improved the symptoms.Fernie requests in-patient rehab services. I gave him a referral to [facility] [place]. He understands that he will not be routinely be admitted to hospital. Patient will be discharged with a final Dx of polysubstance abuse and EtOH abuse. I gave him some referrals to local resources for the substance abuse. Pt is agreeable with this plan. Allergies noted. - Diagnoses Provider Diagnoses: Polysubstance abuse, ETOH abuse Discharge - Sign-Out/Discharge Documenting (check all that apply): Patient Departure - DC - Discharge Plan Condition: Improved Disposition: HOME Patient Education Materials: Abuse of Alcohol (ED), Polysubstance Abuse (ED) Referrals: [facility] [Outside] Additional Instructions: Return to ED for any new or worsening symptoms - Billing Disposition and Condition Condition: IMPROVED Disposition: Home - Attestation Statements Document Initiated by Scribe: Yes Documenting Scribe: Kaley Olmedo Provider For Whom Shelleyiblissy is Documenting (Include Credential): Dr. Javed Felipe MD Scribe Attestation: Kaley Brunner , scribed for Dr. Javed Felipe MD on 05/30/18 at 1129. Scribe Documentation Reviewed: Yes Provider Attestation: The documentation as recorded by the scribeKaley accurately reflects the service I personally performed and the decisions made by me, Dr. Javed Felipe MD Status of Scribe Document: Viewed
[2018-05-28] MEDS ORDERED: Ammonia Inhalant* 1 EA AMP INH ONE (14:03)
[2018-05-28] MEDS ORDERED: NS 0.9% 1000 ML* 1,000 ML IV ONE (14:03)
[2018-05-28] MEDS ORDERED: Charcoal ACTIVATED* 25 GM/120 ML BTL PO ONE (14:03)
[2018-05-28 14:56] LABS: ABS Basophils 0.1 10^3/ul (0-0.2); ABS Eosinophils 0.1 10^3/ul (0-0.6); ABS Lymphocytes 1.9 10^3/ul (1.0-4.8); ABS Monocytes 0.8 10^3/ul (0-0.8); ABS Neutrophils 6.8 10^3/ul (1.5-7.7); ABS Nucleated RBC 0 10^3/ul; Eosinophil % 0.5 %; Hematocrit 42 % (42-52); Hemoglobin 13.9 g/dl (14.0-18.0); Lymphocyte % 19.9 %; Mean Corpuscular HGB Conc 33 g/dl (31-36); Mean Corpuscular Hemoglobin 28 pg (27-31); Mean Corpuscular Volume 86 fL (80-94); Nucleated Red Blood Cells % 0.1; Platelet Count 196 10^3/ul (150-450); Red Cell Distribution Width 15 % (10.5-15); White Blood Count 9.7 10^3/ul (3.5-10.8)
[2018-05-28 15:13] LABS: EGFR Non-African American 101.8 (>60)
[2018-05-28 18:23] LABS: Urine Appearance Clear; Urine Blood Negative (Negative); Urine Color Straw; Urine Ketones Negative (Negative); Urine Protein Negative (Negative); Urine Specific Gravity 1.006 (1.010-1.030); Urine Urobilinogen Negative (Negative)
[2018-05-28 23:21] VITALS: BP 122/69
== END 2018-05-28 23:20 | disposition home or self-care (01) ==
LOC: ED 13:44
DX: F19.10 Other psychoactive substance abuse, uncomplicated (principal); F10.10 Alcohol abuse, uncomplicated; B19.20 Unspecified viral hepatitis C without hepatic coma; E03.9 Hypothyroidism, unspecified; I10 Essential (primary) hypertension
CPT/HCPCS: 36415; 80053; 80307; 80320; 80329; 81003; 83605; 85025; 93005; 96361; 99284; A9270-GY; G0480

== ENCOUNTER 2018-06-05 18:03 | Emergency (ER) | payer OTHER ==
--- NOTE | 2018-06-05 18:34 | ED ---
Substance Abuse/Use - HPI Summary HPI Summary: The pt is a 28 y/o male presenting to [facility] c/o [id number] Coricidin ingestion worsened today. He said that he swallowed 64 pills today and drank some beer. He notes depression and SI. The has been seen multiple times at [facility] multiple times for substance overdose. Home Medications Medication Instructions Recorded Confirmed Type Unobtainable 05/27/18 06/05/18 History - History Of Current Complaint Chief Complaint: EDMentalHealth Stated Complaint: OVERDOSE Time Seen by Provider: 06/05/18 18:16 Hx Obtained From: Patient Onset/Duration of Drug/ETOH Abuse: Hours Ingestion History: Type/Name Of Drug - Coricidin and EtOH Overdose Characteristics: Oral Timing Of Abuse: Daily Aggravating Factor(s): Nothing Alleviating Factor(s): Nothing Associated Signs And Symptoms: Intentional Ingestion - Allergies/Home Medications Allergies/Adverse Reactions: Allergies Allergy/AdvReac Type Severity Reaction Status Date / Time No Known Allergies Allergy Verified 05/21/18 16:20 PMH/Surg Hx/FS Hx/Imm Hx Previously Healthy: No Endocrine/Hematology History: Reports: Hx Thyroid Disease - Hypothyroidism Denies: Hx Anticoagulant Therapy, Hx Blood Disorders, Hx Blood Transfusions, Hx Bone Marrow Disease, Hx Diabetes, Hx Systemic Lupus Erythematosus, Hx Sickle Cell Disease, Hx Anemia, Hx Unexplained Bleeding, Other Endocrine/Hematological Disorders Cardiovascular History: Reports: Hx Hypertension Denies: Hx Aneurysm, Hx Angina, Hx Angioplasty, Hx Auto Implanted Cardiovert Defib, Hx Cardiac Arrest, Hx Cardiomegaly, Hx Congenital Heart Disease, Hx Congestive Heart Failure, Hx Coronary Artery Disease, Hx Deep Vein Thrombosis, Hx Embolism, Hx Hypercholesterolemia, Hx Hypotension, Hx Pacemaker/ICD, Hx Peripheral Vascular Disease, Hx Rheumatic Fever, Hx Syncope, Hx Valvular Heart Disease, Other Cardiovascular Problems/Disorders Respiratory History: Reports: Hx Pneumonia, Hx Seasonal Allergies Denies: Hx Asthma, Hx Chronic Bronchitis, Hx Chronic Obstructive Pulmonary Disease (COPD), Hx Cystic Fibrosis, Hx Lung Cancer, Hx Pleural Effusion, Hx Pulmonary Edema, Hx Pulmonary Embolism, Hx Sleep Apnea, Other Respiratory Problems/Disorders GI History: Reports: Hx Ulcer Denies: Hx Cirrhosis, Hx Crohn's Disease, Hx Diverticulosis, Hx Gall Bladder Disease, Hx Gastroesophageal Reflux Disease, Hx Gastrointestinal Bleed, Hx Hiatal Hernia, Hx Irritable Bowel, Hx Jaundice, Hx Obstructive Bowel, Hx Ileostomy, Hx Pyloric Stenosis, Other GI Disorders History: Denies: Hx Acute Renal Failure, Hx Benign Prostatic Hyperplasia, Hx Chronic Renal Failure, Hx Dialysis, Hx Kidney Infection, Hx Kidney Stones, Hx Renal Disease, Other Problems/Disorders Musculoskeletal History: Denies: Hx Arthritis, Hx Back Problems, Hx Bursitis, Hx Congenital Bone Abnormalities, Hx Fibromyalgia, Hx Gout, Hx Orthopedic Injury, Hx Osteoporosis, Hx Scoliosis, Hx Tendonitis, Other Musculoskeletal History Sensory History: Denies: Hx Cataracts, Hx Contacts or Glasses, Hx Eye Injury, Hx Eye Prosthesis, Hx Glaucoma, Hx Legally Blind, Hx Macular Degeneration, Hx Vision Problem, Hx Deafness, Hx Hearing Aid, Other Sensory Impairments Opthamlomology History: Denies: Hx Cataracts, Hx Contacts or Glasses, Hx Eye Injury, Hx Eye Prosthesis, Hx Glaucoma, Hx Legally Blind, Hx Macular Degeneration, Hx Vision Problem, Other Sensory Impairments Neurological History: Reports: Hx Headaches, Hx Seizures Denies: Hx Dementia, Hx Developmental Delay, Hx Migraine, Hx Nerve Disease, Hx Spinal Cord Injury, Hx Transient Ischemic Attacks (TIA), Other Neuro Impairments/Disorders Psychiatric History: Reports: Hx Anxiety, Hx Depression, Hx Post Traumatic Stress Disorder, Hx Inpatient Treatment, Hx Community Mental Health Tx, Hx Bipolar Disorder, Hx of Violent Episodes Against Others, Hx Substance Abuse, Other Psychiatric Issues/Disorders Denies: Hx Attention Deficit Hyperactivity Disorder, Hx Eating Disorder, Hx Panic Disorder, Hx Schizophrenia, Hx Suicide Attempt - Cancer History Cancer Type, Location and Year: None reported - Surgical History Surgery Procedure, Year, and Place: none Hx Anesthesia Reactions: No - Immunization History Date of Tetanus Vaccine: Unknown Date of Influenza Vaccine: None Immunizations Up to Date: Unable to Obtain/Confirm Infectious Disease History: No Infectious Disease History: Reports: Hx Hepatitis - Hep C Denies: Hx Clostridium Difficile, Hx Human Immunodeficiency Virus (HIV), Hx of Known/Suspected MRSA, Hx Shingles, Hx Tuberculosis, Hx Known/Suspected VRE, Hx Known/Suspected VRSA, History Other Infectious Disease, Traveled Outside the [place] in Last 30 Days - Family History Known Family History: Positive: Other - cancer Negative: Renal Disease - Social History Occupation: Unemployed Lives: [facility] - [facility] [place] Alcohol Use: Daily Alcohol Amount: unk Hx Substance Use: Yes Substance Use Type: Reports: None Substance Use Comment - Amount & Last Used: 03/14/18 Coricidin overdose Hx Tobacco Use: Yes Smoking Status (MU): Former Smoker Type: Cigarettes Have You Smoked in the Last Year: Yes Review of Systems Constitutional: Other - 64 Coricidin pill ingestion, EtOH ingestion Positive: no symptoms reported Positive: Depressed, Other - SI All Other Systems Reviewed And Are Negative: Yes Physical Exam - Summary Physical Exam Summary: Appearance: Well appearing, no pain distress Skin: warm, dry, reflects adequate perfusion Head/face: normal Eyes: EOMI, CHANDRIKA ENT: normal Neck: supple, non-tender Respiratory: CTA, breath sounds present Cardiovascular: RRR, pulses symmetrical Abdomen: non-tender, soft Musculoskeletal: normal, strength/ROM intact Neuro: normal, sensory motor intact, A&Ox3 Psych: Depressed affect Triage Information Reviewed: Yes Vital Signs On Initial Exam: Initial Vitals Pulse Resp BP Pulse Ox 85 29 147/98 99 06/05/18 18:08 06/05/18 18:08 06/05/18 18:08 06/05/18 18:08 Vital Signs Reviewed: Yes Diagnostics - Vital Signs Vital Signs Temp Pulse Resp BP Pulse Ox 06/05/18 18:19 98.8 F 89 18 147/98 98 06/05/18 18:09 92 29 98 06/05/18 18:08 85 29 147/98 99 - Laboratory Result Diagrams: 06/05/18 19:06 06/05/18 19:06 Lab Statement: Any lab studies that have been ordered have been reviewed, and results considered in the medical decision making process. Course/Dx - Course Course Of Treatment: A 28 year-old M presents to the ED with a CC of acute-on- chronic Coricidin ingestion onset today. He said that he swallowed 64 pills today and drank some beer. He notes depression and SI. A physical exam revealed depressed affect. Labs reveal elevated serum alcohol. The pt will be signed out to Dr. Slade at the change of shift to pending sobriety and MHE. Dx: Drug overdose and Depression. Allergies noted. - Diagnoses Differential Diagnosis/HQI/PQRI: Positive: Depression, Drug Abuse, Suicidal Risk , Other Provider Diagnoses: Drug overdose, Depression Discharge - Sign-Out/Discharge Documenting (check all that apply): Sign-Out Patient Signing out patient TO: Ad Slade - 22:00 hrs - Discharge Plan Condition: Critical Referrals: [facility] [Outside] - Billing Disposition and Condition Condition: CRITICAL - Attestation Statements Document Initiated by Scribe: Yes Documenting Scribe: Kaley Olmedo Provider For Whom Mario is Documenting (Include Credential): Dr. Estiven Crain MD Scribe Attestation: Kaley Brunner , scribed for Dr. Estiven Crain MD on 06/05/18 at 2134. Scribe Documentation Reviewed: Yes Provider Attestation: The documentation as recorded by the sandovalibeKaley accurately reflects the service I personally performed and the decisions made by me, Dr. Estiven Crain MD Status of Scribe Document: Viewed
[2018-06-05 19:31] LABS: ABS Basophils 0.1 10^3/ul (0-0.2); ABS Eosinophils 0.1 10^3/ul (0-0.6); ABS Lymphocytes 3.9 10^3/ul (1.0-4.8); ABS Monocytes 0.9 10^3/ul (0-0.8); ABS Neutrophils 3.6 10^3/ul (1.5-7.7); ABS Nucleated RBC 0 10^3/ul; Eosinophil % 1.3 %; Hematocrit 45 % (42-52); Mean Corpuscular HGB Conc 34 g/dl (31-36); Mean Corpuscular Hemoglobin 29 pg (27-31); Mean Corpuscular Volume 85 fL (80-94); Mean Platelet Volume 7.4 fL (7.4-10.4); Nucleated Red Blood Cells % 0.1; Platelet Count 259 10^3/ul (150-450); Red Blood Count 5.23 10^6/ul (4.00-5.40); Red Cell Distribution Width 16 % (10.5-15); White Blood Count 8.6 10^3/ul (3.5-10.8)
[2018-06-05 19:47] LABS: ALT 27 U/L (7-52); AST 21 U/L (13-39); Albumin 4.5 g/dL (3.2-5.2); Albumin/Globulin Ratio 1.5 (1-3); Alkaline Phosphatase 52 U/L (34-104); Anion Gap 10 mmol/L (2-11); BUN/Creatinine Ratio 10.8 (8-20); Blood Urea Nitrogen 9 mg/dL (6-24); CO2 Carbon Dioxide 25 mmol/L (22-32); Calcium 9.1 mg/dL (8.6-10.3); Chloride 108 mmol/L (101-111); EGFR Non-African American 110.3 (>60); Glucose 76 mg/dL (70-100); Potassium 3.6 mmol/L (3.5-5.0); Sodium 143 mmol/L (135-145); Total Protein 7.5 g/dL (6.4-8.9)
[2018-06-05 20:17] LABS: Acetaminophen < 15 mcg/mL; Alcohol 129 mg/dL (<10); Salicylate < 2.50 mg/dL (<30)
[2018-06-05 20:30] LABS: TSH (Thyroid Stimulating Horm) 18.59 mcIU/mL (0.34-5.60)
--- NOTE | 2018-06-05 22:59 | ED ---
Progress - Progress Note Progress Note: The pt is a 28 y/o male presenting to [facility] c/o [id number] Coricidin ingestion worsened today. He said that he swallowed 64 pills today and drank some beer. He notes depression and SI. The has been seen multiple times at [facility] multiple times for substance overdose. Patient was signed out from Dr. Crain to Dr. Slade during a shift change, pending sobriety and MHE. Patient was observed to the night. He was tachycardic and was calm and with Ativan. He was taking oral fluids. His heart rate came down into the 90s spontaneously with sobriety. Was able to have long conversation with him regarding his recurring use of this [id number] medication. He has requested help for detox/rehabilitation. I have provided him with resources both locally and in [place]. I have touched base with the intake folks at [facility] who are interested in helping him. We will help him call this morning. Facility as indicated that they may be able to come and pick him up. Patient has indicated that he is not suicidal nor a threat to others. Re-Evaluation - Re-Evaluation 1 Re-Evaluation Time: 06:12 Change: Improved Comment: He is awake. Course/Dx - Course Course Of Treatment: A 28 year-old M presents to the ED with a CC of acute-on- chronic Coricidin ingestion onset today. He said that he swallowed 64 pills today and drank some beer. He notes depression and SI. A physical exam revealed depressed affect. Labs reveal elevated serum alcohol. The pt will be signed out to Dr. Slade at the change of shift to pending sobriety and MHE. Dx: Drug overdose and Depression. Allergies noted. - Diagnoses Provider Diagnoses: Drug overdose, Depression, Homelessness, Polysubstance abuse Discharge - Sign-Out/Discharge Documenting (check all that apply): Patient Departure - D/C, Receiving Sign-Out Receiving patient FROM: Estiven Crain - Pending sobriety and MHE. - Discharge Plan Condition: Improved Disposition: HOME Patient Education Materials: Abuse of Alcohol (ED), Adult Overdose (ED) Referrals: [facility] [Outside] Additional Instructions: It is recommended that he go to drug and alcohol detox and rehabilitation as discussed. You have been given resources to help make this happen. These services will often come and pick you up. Do not use drugs or alcohol. Return if worse, new symptoms or other concerns. Stay with a responsible adult if able. - Billing Disposition and Condition Condition: IMPROVED Disposition: Home - Attestation Statements Document Initiated by Mario: Yes Documenting Scribe: Fernie Vaz Provider For Whom Mario is Documenting (Include Credential): Ad Slade MD Scribe Attestation: I, Fernie Vaz, scribed for Ad Slade MD on 06/06/18 at 0624. Scribe Documentation Reviewed: Yes Provider Attestation: The documentation as recorded by the Fernie fournier accurately reflects the service I personally performed and the decisions made by me, Ad Slade MD Status of Scrmegane Document: Viewed
[2018-06-06] MEDS ORDERED: LORazepam INJ* 2 MG/ML 1 ML VIAL IM ONE (00:50)
[2018-06-06] MEDS ORDERED: LORazepam INJ* 2 MG/ML 1 ML VIAL ONE (00:53)
[2018-06-06] MEDS ORDERED: NS 0.9% 1000 ML* 1,000 ML IV ONE (03:20)
[2018-06-06] MEDS ORDERED: Levothyroxine TAB* 150 MCG TAB PO ONE (03:20)
[2018-06-06 05:50] LABS: Urine Appearance Clear; Urine Bacteria Absent (Absent); Urine Bilirubin Negative (Negative); Urine Blood 3+ (Negative); Urine Color Straw; Urine Glucose Negative (Negative); Urine Ketones Negative (Negative); Urine Nitrite Negative (Negative); Urine Protein Negative (Negative); Urine Red Blood Cell Trace(0-2/hpf) (Absent); Urine Specific Gravity 1.005 (1.010-1.030); Urine Urobilinogen Negative (Negative); Urine White Blood Cell Absent (Absent)
[2018-06-06 05:56] LABS: Barbiturates Urine Screen None Detected (None Detect); Benzodiazepine Urine Screen None Detected (None Detect); Urine Cannabinoids Screen None Detected (None Detect)
--- NOTE | 2018-06-06 13:44 | PN ---
Progress Note - Progress Note Date of Service: 06/06/18 Note: S: 28 y.o. single, white male with polysubstance dependence and multiple recent ED visits to ours, and others' facilities, for overdose situations, who arrives seeking substance abuse rehabilitation. The patient has been referred by the [facility] keycase assembler to a rehab inpatient facility in [place], [place] and Fernie expresses agreement with this. O: young white male, bearded, dishevelled, anxious with a full affect; denies SI or HI A: alcohol use disorder P: Refer to inpatient rehab.
[2018-06-06 16:01] VITALS: BP 152/100
== END 2018-06-06 16:03 | disposition home or self-care (01) ==
LOC: ED 18:03
DX: T48.4X2A Poisoning by expectorants, intentional self-harm, initial encounter (principal); Y92.9 Unspecified place or not applicable; F32.9 Major depressive disorder, single episode, unspecified; B19.20 Unspecified viral hepatitis C without hepatic coma; Z87.891 Personal history of nicotine dependence; E03.9 Hypothyroidism, unspecified; I10 Essential (primary) hypertension
CPT/HCPCS: 36415; 80053; 80307; 80320; 80329; 81003; 81015; 84443; 85025; 96372; 99285; A9270-GY; G0480; J2060

== ENCOUNTER 2018-09-04 12:20 | Emergency (ER) | payer OTHER ==
[2018-09-04] MEDS ORDERED: NS 0.9% 1000 ML** 2,000 ML IV ONE (12:46)
[2018-09-04] MEDS ORDERED: Nicotine Inhaler* 10 MG AMP INH PRN (12:46)
[2018-09-04 13:08] LABS: Urine Appearance Clear; Urine Bilirubin Negative (Negative); Urine Blood Negative (Negative); Urine Color Yellow; Urine Glucose Negative (Negative); Urine Ketones Trace (Negative); Urine Nitrite Negative (Negative); Urine Protein Negative (Negative); Urine Specific Gravity 1.005 (1.010-1.030); Urine Urobilinogen Negative (Negative)
[2018-09-04] MEDS ORDERED: LORazepam TAB(*) 1 MG PO ONE ×2 (13:35→15:17)
[2018-09-04 13:37] LABS: ABS Basophils 0 10^3/ul (0-0.2); ABS Eosinophils 0 10^3/ul (0-0.6); ABS Monocytes 1.1 10^3/ul (0-0.8); ABS Neutrophils 11.4 10^3/ul (1.5-7.7); ABS Nucleated RBC 0 10^3/ul; Eosinophil % 0 %; Hematocrit 46 % (36-46); Hemoglobin 15.3 g/dL (14.0-18.0); Lymphocyte % 7.6 %; Mean Corpuscular HGB Conc 33 g/dL (31-36); Mean Corpuscular Hemoglobin 27 pg (27-31); Mean Corpuscular Volume 83 fL (80-94); Mean Platelet Volume 8.5 fL (7.4-10.4); Nucleated Red Blood Cells % 0.1; Platelet Count 235 10^3/uL (150-450); Red Cell Distribution Width 16 % (10.5-15); White Blood Count 13.6 10^3/uL (3.5-10.8)
[2018-09-04 13:38] LABS: Barbiturates Urine Screen None Detected (None Detect); Benzodiazepine Urine Screen None Detected (None Detect); Urine Cannabinoids Screen None Detected (None Detect)
--- NOTE | 2018-09-04 13:40 | ED ---
Substance Abuse/Use - HPI Summary HPI Summary: Pt is a 28 y/o male who presents to the ED c/o overdose. He reports taking 64 pills of Coricidin at 11:00 this morning. Pt states he relapsed and notes a little SI. He is currently mildly confused. He was released from [facility] drug addiction help [facility], on 08/22/18. He frequently [place] [facility] [place] in an attempt to get high. After taking the pills pt sometimes seizes. PMHx anxiety, depression, PTSD, bipolar disorder, and substance abuse. He is a former smoker and uses alcohol daily. Vital signs: HR 140 bpm, BP 145/97, O2 sat 95%, temperature 101 degrees F. - History Of Current Complaint Chief Complaint: EDOverdose Stated Complaint: OVERSDOSE PER EMS Time Seen by Provider: 09/04/18 12:33 Hx Obtained From: Patient, Medical Records, Other: - competitive intelligence manager, [place] social service liaison Ingestion History: Type/Name Of Drug - Coricidin, Amount Ingested - 64 pills, Approximate Time Of Ingestion - 11:00 this morning Overdose Characteristics: Oral Timing Of Abuse: Binge Use Severity Initially: Moderate Severity Currently: Moderate Character: Other - confused, staring into space Aggravating Factor(s): Nothing Alleviating Factor(s): Nothing Associated Signs And Symptoms: Confused, Other: - flushed face, fever, tachycardia Related Hx: Suicidal, Drug/Alcohol Last Used @ - 11:00am, Possible Multi Drug Ingestion - "a little", no plan, upon first encounter; later denies SI/HI, just wanted to get high, Prior Drug Abuse Counseling/Admission, Prior Psych Admission - Allergies/Home Medications Allergies/Adverse Reactions: Allergies Allergy/AdvReac Type Severity Reaction Status Date / Time No Known Allergies Allergy Verified 05/21/18 16:20 PMH/Surg Hx/FS Hx/Imm Hx Endocrine/Hematology History: Reports: Hx Thyroid Disease - Hypothyroidism Denies: Hx Anticoagulant Therapy, Hx Blood Disorders, Hx Blood Transfusions, Hx Bone Marrow Disease, Hx Diabetes, Hx Systemic Lupus Erythematosus, Hx Sickle Cell Disease, Hx Anemia, Hx Unexplained Bleeding, Other Endocrine/Hematological Disorders Cardiovascular History: Reports: Hx Hypertension Denies: Hx Aneurysm, Hx Angina, Hx Angioplasty, Hx Auto Implanted Cardiovert Defib, Hx Cardiac Arrest, Hx Cardiomegaly, Hx Congenital Heart Disease, Hx Congestive Heart Failure, Hx Coronary Artery Disease, Hx Deep Vein Thrombosis, Hx Embolism, Hx Hypercholesterolemia, Hx Hypotension, Hx Pacemaker/ICD, Hx Peripheral Vascular Disease, Hx Rheumatic Fever, Hx Syncope, Hx Valvular Heart Disease, Other Cardiovascular Problems/Disorders Respiratory History: Reports: Hx Pneumonia, Hx Seasonal Allergies Denies: Hx Asthma, Hx Chronic Bronchitis, Hx Chronic Obstructive Pulmonary Disease (COPD), Hx Cystic Fibrosis, Hx Lung Cancer, Hx Pleural Effusion, Hx Pulmonary Edema, Hx Pulmonary Embolism, Hx Sleep Apnea, Other Respiratory Problems/Disorders GI History: Reports: Hx Ulcer Denies: Hx Cirrhosis, Hx Crohn's Disease, Hx Diverticulosis, Hx Gall Bladder Disease, Hx Gastroesophageal Reflux Disease, Hx Gastrointestinal Bleed, Hx Hiatal Hernia, Hx Irritable Bowel, Hx Jaundice, Hx Obstructive Bowel, Hx Ileostomy, Hx Pyloric Stenosis, Other GI Disorders History: Denies: Hx Acute Renal Failure, Hx Benign Prostatic Hyperplasia, Hx Chronic Renal Failure, Hx Dialysis, Hx Kidney Infection, Hx Kidney Stones, Hx Renal Disease, Other Problems/Disorders Musculoskeletal History: Denies: Hx Arthritis, Hx Back Problems, Hx Bursitis, Hx Congenital Bone Abnormalities, Hx Fibromyalgia, Hx Gout, Hx Orthopedic Injury, Hx Osteoporosis, Hx Scoliosis, Hx Tendonitis, Other Musculoskeletal History Sensory History: Denies: Hx Cataracts, Hx Contacts or Glasses, Hx Eye Injury, Hx Eye Prosthesis, Hx Glaucoma, Hx Legally Blind, Hx Macular Degeneration, Hx Vision Problem, Hx Deafness, Hx Hearing Aid, Other Sensory Impairments Opthamlomology History: Denies: Hx Cataracts, Hx Contacts or Glasses, Hx Eye Injury, Hx Eye Prosthesis, Hx Glaucoma, Hx Legally Blind, Hx Macular Degeneration, Hx Vision Problem, Other Sensory Impairments Neurological History: Reports: Hx Headaches, Hx Seizures Denies: Hx Dementia, Hx Developmental Delay, Hx Migraine, Hx Nerve Disease, Hx Spinal Cord Injury, Hx Transient Ischemic Attacks (TIA), Other Neuro Impairments/Disorders Psychiatric History: Reports: Hx Anxiety, Hx Depression, Hx Post Traumatic Stress Disorder, Hx Inpatient Treatment, Hx Community Mental Health Tx, Hx Bipolar Disorder, Hx of Violent Episodes Against Others, Hx Substance Abuse Denies: Hx Attention Deficit Hyperactivity Disorder, Hx Eating Disorder, Hx Panic Disorder, Hx Schizophrenia, Hx Suicide Attempt - Cancer History Cancer Type, Location and Year: None reported - Surgical History Surgery Procedure, Year, and Place: none Hx Anesthesia Reactions: No - Immunization History Date of Tetanus Vaccine: Unknown Date of Influenza Vaccine: None Infectious Disease History: Yes Infectious Disease History: Reports: Hx Hepatitis - Hep C Denies: Hx Clostridium Difficile, Hx Human Immunodeficiency Virus (HIV), Hx of Known/Suspected MRSA, Hx Shingles, Hx Tuberculosis, Hx Known/Suspected VRE, Hx Known/Suspected VRSA, History Other Infectious Disease, Traveled Outside the [place] in Last 30 Days - Family History Known Family History: Positive: Other - cancer Negative: Renal Disease - Social History Alcohol Use: Daily Hx Substance Use: Yes Substance Use Type: 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 - binge use of coricidin Substance Use Comment - Amount & Last Used: 09/04/18 Coricidin overdose Hx Tobacco Use: Yes Smoking Status (MU): Former Smoker Type: Cigarettes Have You Smoked in the Last Year: Yes Review of Systems Positive: Fever Cardiovascular: Negative Respiratory: Negative Gastrointestinal: Negative Positive: no symptoms reported Musculoskeletal: Negative Skin: Negative Neurological: Other - mildly confused Positive: Other - SI without plan, "a little"; later resolved in ED, no SI/HI All Other Systems Reviewed And Are Negative: Yes Physical Exam - Summary Physical Exam Summary: Appearance: Ill-appearing, no pain distress, well-nourished, febrile Skin: Warm, dry, flushed Head: Normal Head/Face inspection, atraumatic Eyes: Conjunctiva clear, staring, dilated pupils 4mm bilaterally, equal, reactive to light; EOMI ENT: Dry mucus membranes Neck: Supple, no nodes, no JVD Respiratory: Lungs clear, normal breath sounds, no respiratory distress Cardio: Tachycardic but regular rhythm, No murmur, pulses normal, brisk capillary refill Abdomen: Soft, nontender Bowel sounds: Decreased Musculoskeletal: Strength Intact/ROM intact, no calf tenderness, no edema. Psychological: Calm and cooperative at this time, slightly confused, but oriented to name, place and situation; can make needs known, and has recall of the ingestion details. Neuro: Alert, muscle tone normal, no focal deficit Triage Information Reviewed: Yes Vital Signs On Initial Exam: Initial Vitals Temp Pulse Resp BP Pulse Ox 101 F 126 16 139/99 95 09/04/18 12:31 09/04/18 12:31 09/04/18 12:31 09/04/18 12:31 09/04/18 12:31 Vital Signs Reviewed: Yes - [place] Coma Scale Best Eye Response: 4 - Spontaneous Best Motor Response: 6 - Obeys Commands Best Verbal Response: 4 - Confused Coma Scale Total: 14 Diagnostics - Vital Signs Vital Signs Temp Pulse Resp BP Pulse Ox 09/04/18 13:33 98 09/04/18 12:31 101 F 126 16 139/99 95 - Laboratory Lab Results: Lab Results 09/04/18 Range/Units 12:55 Urine Color Yellow Urine Appearance Clear Urine pH 6.0 (5-9) Ur Specific [place] 1.005 L (1.010-1.030) Urine Protein Negative (Negative) Urine Ketones Trace A (Negative) Urine Blood Negative (Negative) Urine Nitrate Negative (Negative) Urine Bilirubin Negative (Negative) Urine Urobilinogen Negative (Negative) Ur Leukocyte Esterase Negative (Negative) Urine Glucose Negative (Negative) Result Diagrams: 09/04/18 13:29 09/04/18 13:29 Lab Statement: Any lab studies that have been ordered have been reviewed, and results considered in the medical decision making process. - Radiology CXR Radiology Interpretation Completed By: Radiologist Summary of Radiographic Findings: No evidence for acute intrathoracic disease. ED physician reviewed radiology report. - EKG 13:23 Cardiac Rate: Tachycardia - 142 bpm EKG Rhythm: Sinus Tachycardia ST Segment: Non-Specific Ectopy: None EKG Comparison: No Significant Change - Compared with 05/28/18 Summary of EKG Findings: An EKG at 13:23 reveals nml AV/IV CT, nml QTc. No acute changes. Re-Evaluation - Re-Evaluation First Eval Re-Evaluation Time: 17:52 Change: Improved Comment: Pt is still tachycardic at a rate of 131 bpm. He left his AA meeting this morning because he felt discouraged about his transition. Discussed plan to meet Regulo SHARP at [facility] at 9:00 tomorrow. He states that he feels fine now, and Im going to take it easy tonight. Pt will go to the rescue [facility] after being discharged via Medicaid cab and will be sober tomorrow. Continues to talk po fluids. Denies SI/HI. Course/Dx - Course Course Of Treatment: Pt is a 28 y/o male who presents to the ED c/o overdose after taking 64 pills of Coricidin at 11:00 this morning. He frequently [place] [facility] [place] in an attempt to get high. A physical exam revealed febrile, flushed, staring, dilated pupils, dry mucus membranes, tachycardic but regular rhythm, Calm and cooperative at this time, slightly confused. GCS of 14. A CXR was negative. An EKG revealed sinus tachycardia at a rate of 142 bpm with no acute changes, no change c/w prior. UA revealed positive phencyclidine, which is attributed to a false positive from detromethorphan per poison control. Pt medications reviewed this visit. Nurses notes reviewed. Allergies noted. Poison control said to hydrate and give benzodiazepines as needed. Social work and case resource manager involved. Notes appreciated. Pt will be discharged to the rescue mission with final dx of overdose and substance abuse. Temperature normalized by time of DC. Tachycardia improved, and pt hydrated. Pt states he will be sober in the am. He is agreeable with this plan. - Diagnoses Differential Diagnosis/HQI/PQRI: Positive: Bipolar Disorder, Depression, Drug Abuse Provider Diagnoses: Overdose, Substance abuse - Physician Notifications Discussed Care Of Patient With: Poison Control Time Discussed With Above Provider: 13:30 Instructed by Provider To: Other - Shadia from Poison Control says to hydrate the pt and give benzodiazepines as needed. Observe until clinically sober. Expect anticholinergic symptoms. Discharge - Sign-Out/Discharge Documenting (check all that apply): Patient Departure - Discharge Patient Received Moderate/Deep Sedation with Procedure: No - Discharge Plan Condition: Improved Disposition: HOME Patient Education Materials: Polysubstance Abuse (ED) Referrals: [facility],. [[email or web address], APPLICATION, OTHER] - 09/05/18 9:00 am (PLEASE MEET FISHER LOBSTER, REGULO ([phone]), AT [facility] AT 9AM. ) Additional Instructions: You have an appointment tomorrow at [facility] at 0900 with Regulo FLORES at [address]. Phone number is [phone]. You must be sober for this meeting. Return to the ED with any new or worsening symptoms. - Billing Disposition and Condition Condition: IMPROVED Disposition: Home - Attestation Statements Document Initiated by Scribe: Yes Documenting Scribe: Martha Novak Provider For Whom Scribe is Documenting (Include Credential): Corrine Lee MD Scribe Attestation: Martha Brunner, scribed for Corrine Lee MD on 09/04/18 at 2247. Scribe Documentation Reviewed: Yes Provider Attestation: The documentation as recorded by the scribe, Martha Novak accurately reflects the service I personally performed and the decisions made by me, Corrine Lee MD Status of Scribe Document: Viewed
[2018-09-04 14:11] LABS: ALT 28 U/L (7-52); AST 25 U/L (13-39); Albumin 5.2 g/dL (3.2-5.2); Albumin/Globulin Ratio 1.8 (1-3); Alkaline Phosphatase 72 U/L (34-104); Anion Gap 10 mmol/L (2-11); BUN/Creatinine Ratio 9.7 (8-20); Blood Urea Nitrogen 11 mg/dL (6-24); CO2 Carbon Dioxide 23 mmol/L (22-32); Calcium 9.9 mg/dL (8.6-10.3); Chloride 106 mmol/L (101-111); Creatine Kinase 221 U/L (10-223); EGFR African American 93.5 (>60); EGFR Non-African American 77.3 (>60); Globulin 2.9 g/dL (2-4); Glucose 82 mg/dL (70-100); Potassium 3.7 mmol/L (3.5-5.0); Sodium 139 mmol/L (135-145); Total Protein 8.1 g/dL (6.4-8.9)
[2018-09-04 14:13] LABS: Acetaminophen < 15 mcg/mL; Alcohol < 10 mg/dL (<10); Salicylate < 2.50 mg/dL (<30)
[2018-09-04] MEDS ORDERED: LORazepam TAB(*) 1 MG ONE (15:15)
[2018-09-04 18:13] VITALS: BP 145/87
== END 2018-09-04 18:12 | disposition home or self-care (01) ==
LOC: ED 12:20
DX: T48.5X1A Poisoning by other anti-common-cold drugs, accidental (unintentional), initial encounter (principal); F16.10 Hallucinogen abuse, uncomplicated; R41.0 Disorientation, unspecified; R50.9 Fever, unspecified; R00.0 Tachycardia, unspecified; Y92.9 Unspecified place or not applicable; F41.9 Anxiety disorder, unspecified; F31.9 Bipolar disorder, unspecified; F43.10 Post-traumatic stress disorder, unspecified; Z87.891 Personal history of nicotine dependence
CPT/HCPCS: 36415; 71045; 80053; 80307; 80320; 80329; 81003; 82550; 83605; 84443; 85025; 93005; 99283; A9270-GY; G0480

== ENCOUNTER 2018-09-05 14:06 | Emergency (ER) | payer OTHER ==
[2018-09-05] MEDS: NS 0.9% 1000 ML** 2,000 ML IV ONE (14:37)
--- NOTE | 2018-09-05 14:41 | ED ---
Substance Abuse/Use - HPI Summary HPI Summary: Pt is a 28 y/o M with hx substance abuse, presenting to the ED with a chief complaint of overdose, intentional, "to get high", not suicidal, on coricidin. Pt was in ED yesterday 09/04/18 for same. Pt is seen upon arrival. Per ARON Mock, one of his care managers at [facility], who arrived in the ED at the same time as the pt, the pt showed up to [facility] this morning like he was supposed to, and was sober. He engaged in conversation, and went to PCP appointment. 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 Between then and now, he returned back to the rescue mission with 2 or 3 boxes of coricidin that he took in the bathroom. Emili called Juanita Arboleda, the [facility] homeless prison coordinator in [place], who said she would get the pt on the phone, and found the pt in the bathroom semi-conscious. Emili asked the pt how he got the medications and what he actually ingested and the pt danced around the conversation. Upon arrival, pt reports he took 48 pills of coricidin that he took from [facility], hes unsure of what time he took them.Pt states he also drank a six pack of beer. (Yesterday pt stated that he took 64 pills). He states he is gender transitioning which has been his stressor, but has no doctors to refer to. His preferred name is "Siria". Pt states his only medication is levothyroxine. 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 Increased Use Since: stress about wanting to undergo gender transition Overdose Characteristics: Oral Timing Of Abuse: Binge Use - since release from [facility] psychiatric unit recently Severity Initially: Mild Severity Currently: Severe Character: Lethargic Aggravating Factor(s): Recent Stress Alleviating Factor(s): Nothing Associated Signs And Symptoms: Intentional Ingestion Related Hx: Drug/Alcohol Last Used @ - this am, Possible Multi Drug Ingestion, Prior Drug Abuse Counseling/Admission, Prior Psych Admission - Allergies/Home Medications Allergies/Adverse Reactions: Allergies Allergy/AdvReac Type Severity Reaction Status Date / Time No Known Allergies Allergy Verified 05/21/18 16:20 PMH/Surg Hx/FS Hx/Imm Hx Previously Healthy: No Endocrine/Hematology History: Reports: Hx Thyroid Disease - Hypothyroidism Denies: Hx Anticoagulant Therapy, Hx Blood Disorders, Hx Blood Transfusions, Hx Bone Marrow Disease, Hx Diabetes, Hx Systemic Lupus Erythematosus, Hx Sickle Cell Disease, Hx Anemia, Hx Unexplained Bleeding, Other Endocrine/Hematological Disorders Cardiovascular History: Reports: Hx Hypertension Denies: Hx Aneurysm, Hx Angina, Hx Angioplasty, Hx Auto Implanted Cardiovert Defib, Hx Cardiac Arrest, Hx Cardiomegaly, Hx Congenital Heart Disease, Hx Congestive Heart Failure, Hx Coronary Artery Disease, Hx Deep Vein Thrombosis, Hx Embolism, Hx Hypercholesterolemia, Hx Hypotension, Hx Pacemaker/ICD, Hx Peripheral Vascular Disease, Hx Rheumatic Fever, Hx Syncope, Hx Valvular Heart Disease, Other Cardiovascular Problems/Disorders Respiratory History: Reports: Hx Pneumonia, Hx Seasonal Allergies Denies: Hx Asthma, Hx Chronic Bronchitis, Hx Chronic Obstructive Pulmonary Disease (COPD), Hx Cystic Fibrosis, Hx Lung Cancer, Hx Pleural Effusion, Hx Pulmonary Edema, Hx Pulmonary Embolism, Hx Sleep Apnea, Other Respiratory Problems/Disorders GI History: Reports: Hx Ulcer Denies: Hx Cirrhosis, Hx Crohn's Disease, Hx Diverticulosis, Hx Gall Bladder Disease, Hx Gastroesophageal Reflux Disease, Hx Gastrointestinal Bleed, Hx Hiatal Hernia, Hx Irritable Bowel, Hx Jaundice, Hx Obstructive Bowel, Hx Ileostomy, Hx Pyloric Stenosis, Other GI Disorders History: Denies: Hx Acute Renal Failure, Hx Benign Prostatic Hyperplasia, Hx Chronic Renal Failure, Hx Dialysis, Hx Kidney Infection, Hx Kidney Stones, Hx Renal Disease, Other Problems/Disorders Musculoskeletal History: Denies: Hx Arthritis, Hx Back Problems, Hx Bursitis, Hx Congenital Bone Abnormalities, Hx Fibromyalgia, Hx Gout, Hx Orthopedic Injury, Hx Osteoporosis, Hx Scoliosis, Hx Tendonitis, Other Musculoskeletal History Sensory History: Denies: Hx Cataracts, Hx Contacts or Glasses, Hx Eye Injury, Hx Eye Prosthesis, Hx Glaucoma, Hx Legally Blind, Hx Macular Degeneration, Hx Vision Problem, Hx Deafness, Hx Hearing Aid, Other Sensory Impairments Opthamlomology History: Denies: Hx Cataracts, Hx Contacts or Glasses, Hx Eye Injury, Hx Eye Prosthesis, Hx Glaucoma, Hx Legally Blind, Hx Macular Degeneration, Hx Vision Problem, Other Sensory Impairments Neurological History: Reports: Hx Headaches, Hx Seizures Denies: Hx Dementia, Hx Developmental Delay, Hx Migraine, Hx Nerve Disease, Hx Spinal Cord Injury, Hx Transient Ischemic Attacks (TIA), Other Neuro Impairments/Disorders Psychiatric History: Reports: Hx Anxiety, Hx Depression, Hx Post Traumatic Stress Disorder, Hx Inpatient Treatment, Hx Community Mental Health Tx, Hx Bipolar Disorder, Hx of Violent Episodes Against Others, Hx Substance Abuse Denies: Hx Attention Deficit Hyperactivity Disorder, Hx Eating Disorder, Hx Panic Disorder, Hx Schizophrenia, Hx Suicide Attempt - Cancer History Cancer Type, Location and Year: None reported - Surgical History Surgery Procedure, Year, and Place: none Hx Anesthesia Reactions: No - Immunization History Date of Tetanus Vaccine: Unknown Date of Influenza Vaccine: None Infectious Disease History: No Infectious Disease History: Reports: Hx Hepatitis - Hep C Denies: Hx Clostridium Difficile, Hx Human Immunodeficiency Virus (HIV), Hx of Known/Suspected MRSA, Hx Shingles, Hx Tuberculosis, Hx Known/Suspected VRE, Hx Known/Suspected VRSA, History Other Infectious Disease, Traveled Outside the [place] in Last 30 Days - Family History Known Family History: Positive: Other - cancer Negative: Renal Disease - Social History Alcohol Use: Daily Alcohol Amount: unk Hx Substance Use: Yes Substance Use Type: 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 Substance Use Comment - Amount & Last Used: 09/04/18 Coricidin overdose; 09/05/18 Coricidin overdose Hx Tobacco Use: Yes Smoking Status (MU): Heavy Every Day Tobacco Smoker Type: Cigarettes Have You Smoked in the Last Year: Yes Review of Systems Positive: Fever Eyes: Negative Cardiovascular: Negative Respiratory: Negative Gastrointestinal: Negative Positive: no symptoms reported Musculoskeletal: Negative Skin: Negative Neurological: Negative Positive: Depressed, Other - states he is still "high" on initial encounter All Other Systems Reviewed And Are Negative: Yes Physical Exam - Summary Physical Exam Summary: Appearance: Ill-appearing, no pain distress, states hes still high, flushed, febrile, tachycardic . Skin: Warm, color reflects adequate perfusion, dry, skin is flushed Head: Normal Head/Face inspection, atraumatic Eyes: Conjunctiva clear, glazed eyes, pupils 6mm equal and reactive, blinking a lot, EOMI, staring ENT: Normal inspection, dry mucus membranes Neck: Supple, no nodes, no JVD Respiratory: Lungs clear, normal breath sounds, no respiratory distress Cardio: RRR, No murmur, pulses normal, brisk capillary refill Abdomen: Soft, nontender Bowel sounds: Present Musculoskeletal: Strength Intact/ROM intact, no calf tenderness, no edema. Reflexes 2+ bilaterally Psychological: cooperative, states he is still "high" Neuro: Alert & O x 3, Motor 5/5, Sensation intact, muscle tone normal, no focal deficit,Reflexes 2+ bilaterally, speech clear, answers questions appropriately Triage Information Reviewed: Yes Vital Signs On Initial Exam: Initial Vitals Temp Pulse Resp BP Pulse Ox 101.3 F 135 26 141/93 96 09/05/18 14:13 09/05/18 14:13 09/05/18 14:13 09/05/18 14:13 09/05/18 14:13 Vital Signs Reviewed: Yes Diagnostics - Vital Signs Vital Signs Temp Pulse Resp BP Pulse Ox 09/05/18 14:34 96 09/05/18 14:16 127 45 141/93 97 09/05/18 14:14 131 97 09/05/18 14:13 101.3 F 135 26 141/93 96 - Laboratory Result Diagrams: 09/05/18 14:35 09/05/18 14:35 Lab Statement: Any lab studies that have been ordered have been reviewed, and results considered in the medical decision making process. - EKG 1423 Cardiac Rate: Tachycardia - 128bpm EKG Rhythm: Sinus Tachycardia ST Segment: Non-Specific Ectopy: None EKG Comparison: No Significant Change - from 09/04/18 Summary of EKG Findings: no acute changes. Re-Evaluation - Re-Evaluation 1st re-eval Re-Evaluation Time: 19:43 Change: Improved Comment: Patient is calm and cooperative, in behavior control. He requests Ativan. 2nd re-eval Re-Evaluation Time: 20:15 Change: Improved Comment: Patient continues to be anxious and asks for medications to help him deal with his anxiety. Patient is sober, his pupils are no longer dilated and his skin is no longer flushed. Pt has completed 6 hrs of observation medically, on full telemetry. 3rd re-eval Re-Evaluation Time: 21:20 Change: Improved Comment: Pulse is 124 bpm. Patient is still anxious, no longer feeling the effects of the medication. Pt requests something to let him rest and not be anxious. Requests a shot. Will give Haldol and Ativan IM. Per poison control, Haldol is not contraindicated after he is medically cleared with 6 hrs observation after the coricidin, or any other substance overdose. Course/Dx - Course Course Of Treatment: Pt is a 28 y/o M presenting to the ED with a chief complaint of substance abuse. He reports he took 48 pills of coricidin that he took from [employer], hes unsure of what time he took them. He states he is gender transitioning which has been his stressor, but has no doctors that have accepted him yet. After speaking with the pt, Emili reports the pt confirmed he ingested coricidin, and that he stole a taxi to get it. Poison control was consulted by charge nurse Marco upon admission, Shadia, and advice was to continue to monitor for anticholinergic side effects, and medication with benzodiazepines is recommended for any agitation. ARON Mock, telehealth case manager spoke with Dr. Madrigal in person who stated pt could be in the annex overnight, on the stipulation that he cannot have any hand speech language pathologist prn or soap available to him and he must remain in behavioral control. Pavithra with poison control, consulted again at 2100 regarding safety and interaction of medications for patient and she says the patient can be given benzodiazepines as needed and, as he has had the 6 hour observation period, he may now be given anything to help his anxiety. She states that haldol is not contraindicated. At pt's request, due to his agitation, pt is medicated with Ativan 2mg IM, and Haldol 5mg IM. After discussion with nursing cottage supervisor and charge nurse, Sumeet, pt will be observed in the ED, rather than in the annex, until he can be a safe discharge. Pt has been in behavioral control with supplemental benzodiazepines, however for safety of patients in the annex, pt will remain the the ED for close observation and to assist pt in behavioral control as needed. Pt remains on q 15 mins checks while in the ED. Pt has an appointment with [facility], and plan will be to keep pt safe until he can attend his [facility] appointment at 0945 tomorrow (08/04). The patient will be signed out to Dr. Villarreal upon provider shift change pending behavioral control and control of his anxiety. The patient is agreeable with this plan. In the ED pt was medicated with ativan 2mg po x 2, potassium 40mEq x 1, and haldol 5mg and ativan 2mg IM. Pt was observed in the ED on telemetry for a full 6 hrs after presentation, at which time pt was considered medically cleared per poison control. After this observation x 6 hrs, pt was voluntarily medicated for anxiety with ativan 2mg and haldol 5mg IM. At the time of sign out to Dr. Villarreal, pt is sleeping in no distress. The pt will be signed out to Dr. Haider pending disposition. - Diagnoses Differential Diagnosis/HQI/PQRI: Positive: Alcohol Abuse, Anxiety, Drug Abuse Provider Diagnoses: Medication overdose, Hypokalemia, Anxiety, Homelessness - Physician Notifications Discussed Care Of Patient With: Pavithra with poison control Time Discussed With Above Provider: 21:00 Instructed by Provider To: Other - Pavithra with poison control says the patient can be given benzodiazepines as needed and, as he has had the 6 hour observation period, he may now be given anything to help his anxiety. Haldol is not contraindicated Discharge - Sign-Out/Discharge Documenting (check all that apply): Sign-Out Patient Signing out patient TO: Brayan Haider - 09/05/18, 2330pm Patient Received Moderate/Deep Sedation with Procedure: No - Discharge Plan Condition: Stable Patient Education Materials: Polysubstance Abuse (ED) Referrals: Gabriella Fragoso CLINICAL LABORATORY DIRECTOR [Nurse Practitioner] - 2 Days Additional Instructions: Have definite follow up with [facility] today 09/06/18 at 0945. Susan Troy from [facility]reach will meet you at [facility]. Return to the ED if you have any new or worsening symptoms. - Billing Disposition and Condition Condition: STABLE - Attestation Statements Document Initiated by Scribe: Yes Documenting Scribe: Polly Boateng Provider For Whom Scribe is Documenting (Include Credential): Twan Villarreal MD. Scribe Attestation: I, Polly Boateng, scribed for Twan Villarreal MD. on 09/06/18 at 0701. Scribe Documentation Reviewed: Yes Provider Attestation: The documentation as recorded by the scribe, Polly Boateng accurately reflects the service I personally performed and the decisions made by me, Twan Villarreal MD. Status of Scribe Document: Viewed
[2018-09-05 14:47] LABS: ABS Basophils 0 10^3/ul (0-0.2); ABS Eosinophils 0 10^3/ul (0-0.6); ABS Lymphocytes 1.2 10^3/ul (1.0-4.8); ABS Monocytes 1.1 10^3/ul (0-0.8); ABS Neutrophils 9.8 10^3/ul (1.5-7.7); ABS Nucleated RBC 0 10^3/ul; Eosinophil % 0 %; Hematocrit 45 % (36-46); Hemoglobin 14.9 g/dL (14.0-18.0); Lymphocyte % 9.8 %; Mean Corpuscular HGB Conc 33 g/dL (31-36); Mean Corpuscular Hemoglobin 28 pg (27-31); Mean Corpuscular Volume 83 fL (80-94); Mean Platelet Volume 8.4 fL (7.4-10.4); Nucleated Red Blood Cells % 0; Platelet Count 232 10^3/uL (150-450); Red Blood Count 5.42 10^6 /uL (4.18-5.48); Red Cell Distribution Width 16 % (10.5-15); White Blood Count 12.2 10^3/uL (3.5-10.8)
[2018-09-05 15:03] LABS: ALT 25 U/L (7-52); AST 27 U/L (13-39); Albumin 5.1 g/dL (3.2-5.2); Alkaline Phosphatase 72 U/L (34-104); Anion Gap 11 mmol/L (2-11); BUN/Creatinine Ratio 9.2 (8-20); Blood Urea Nitrogen 9 mg/dL (6-24); CO2 Carbon Dioxide 23 mmol/L (22-32); Calcium 9.5 mg/dL (8.6-10.3); Chloride 102 mmol/L (101-111); Creatine Kinase 505 U/L (10-223); EGFR African American 110.2 (>60); EGFR Non-African American 91.1 (>60); Globulin 2.6 g/dL (2-4); Glucose 104 mg/dL (70-100); Potassium 3.2 mmol/L (3.5-5.0); Sodium 136 mmol/L (135-145); Total Protein 7.7 g/dL (6.4-8.9)
[2018-09-05] MEDS ORDERED: Potassium Chlor TAB* 20 MEQ TAB.ER PO ONE (15:12)
[2018-09-05 15:19] LABS: Acetaminophen < 15 mcg/mL; Alcohol < 10 mg/dL (<10); Salicylate < 2.50 mg/dL (<30)
[2018-09-05 15:33] LABS: TSH (Thyroid Stimulating Horm) 2.69 mcIU/mL (0.34-5.60)
[2018-09-05 16:02] LABS: Urine Appearance Clear; Urine Bilirubin Negative (Negative); Urine Blood Negative (Negative); Urine Color Straw; Urine Glucose Negative (Negative); Urine Ketones 1+ (Negative); Urine Nitrite Negative (Negative); Urine Protein Negative (Negative); Urine Specific Gravity 1.004 (1.010-1.030); Urine Urobilinogen Negative (Negative)
[2018-09-05] MEDS ORDERED: LORazepam TAB(*) 1 MG PO ONE ×2 (16:19→19:35)
[2018-09-05 16:34] LABS: Barbiturates Urine Screen None Detected (None Detect); Benzodiazepine Urine Screen None Detected (None Detect); Urine Cannabinoids Screen None Detected (None Detect)
[2018-09-05] MEDS ORDERED: LORazepam INJ* 2 MG/ML 1 ML VIAL ONE ×2 (21:21→21:28)
[2018-09-05] MEDS ORDERED: Haloperidol INJ IV/IM* 5 MG/ML AMP IM ONE (21:22)
[2018-09-05] MEDS ORDERED: LORazepam INJ* 2 MG/ML 1 ML VIAL IM ONE (21:24)
[2018-09-05] MEDS ORDERED: Haloperidol INJ IV/IM* 5 MG/ML AMP ONE (21:28)
--- NOTE | 2018-09-06 00:57 | ED ---
Progress - Progress Note Progress Note: This patient was signed out from Dr. Lee to Dr. Villarreal upon shift change, pending MHE. Re-Evaluation - Re-Evaluation 1st re-eval Re-Evaluation Time: 19:43 Change: Improved Comment: Patient is calm and cooperative, in behavior control. He request Ativan. 2nd re-eval Change: Improved Comment: Patient continues to be anxious and asks for medications to help him deal with his anxiety. Patient is sober, his pupils are no longer dilated and his skin is no longer flushed. 3rd re-eval Re-Evaluation Time: 21:20 Change: Improved Comment: Pulse in 124 bpm. Patient is still anxious, no longer feeling the effects of the medication. Course/Dx - Course Course Of Treatment: This patient was signed out from Dr. Lee to Dr. Villarreal upon shift change, pending MHE. - Diagnoses Provider Diagnoses: coricidin dependence - Provider Notifications Time Discussed With Above Provider: 21:00 Instructed by Provider To: Other - Pavithra with poison control says the patient can be given benzodiazepines as needed and, as he has had the 6 hour observation period, he may now be given anything to help his anxiety. Haldol is not contraindicated Discharge - Sign-Out/Discharge Documenting (check all that apply): Patient Departure Patient Received Moderate/Deep Sedation with Procedure: No - Discharge Plan Condition: Stable Disposition: HOME Patient Education Materials: Polysubstance Abuse (ED) Referrals: Gabriella Fragoso, BACTERIOLOGIST SOIL [Nurse Practitioner] - 2 Days Additional Instructions: You are discharged to the mental health clinic with your social worker palliative care. Follow up with Gabriella Fragoso at [facility]. Return to the ED if you have any new or worsening symptoms. - Billing Disposition and Condition Condition: STABLE Disposition: Home - Attestation Statements Document Initiated by Shelleyibe: Yes Documenting Scribe: Vasu Jovel Provider For Whom Mario is Documenting (Include Credential): Twan Villarreal MD Scribe Attestation: Vasu Brunner, scribed for Twan Villarreal MD on 09/06/18 at 1916. Scribe Documentation Reviewed: Yes Provider Attestation: The documentation as recorded by the Vasu fournier accurately reflects the service I personally performed and the decisions made by me, Twan Villarreal MD Status of Scribe Document: Viewed
--- NOTE | 2018-09-06 07:12 | ED ---
Progress - Progress Note Progress Note: This patient was signed out from Dr. Villarreal to Dr. Haider upon shift change at 07: 00 09/06/18 pending disposition. The patient will be discharged to the mental health clinic with their social work job titles and follow up with Gabriella Fragoso at [facility]. They are agreeable with this plan. Course/Dx - Diagnoses Provider Diagnoses: coricidin dependence Discharge - Sign-Out/Discharge Documenting (check all that apply): Patient Departure - DC Patient Received Moderate/Deep Sedation with Procedure: No - Discharge Plan Condition: Stable Disposition: HOME Patient Education Materials: Polysubstance Abuse (ED) Referrals: Gabriella Fragoso, DIRECTOR OF ONCOLOGY [Nurse Practitioner] - 2 Days Additional Instructions: You are discharged to the mental health clinic with your social work job titles. Follow up with Gabriella Fragoso at [facility]. Return to the ED if you have any new or worsening symptoms. - Billing Disposition and Condition Condition: STABLE Disposition: Home - Attestation Statements Document Initiated by Scribe: Yes Documenting Scribe: Dave Gamboa Provider For Whom Mario is Documenting (Include Credential): Brayan Haider MD Scribe Attestation: Dave Brunner, scribed for Brayan Haider MD on 09/06/18 at 1022. Scribe Documentation Reviewed: Yes Provider Attestation: The documentation as recorded by the Dave fournier accurately reflects the service I personally performed and the decisions made by me, Brayan Haider MD Status of Scribe Document: Viewed
[2018-09-06 08:26] VITALS: BP 137/93
== END 2018-09-06 08:54 | disposition home or self-care (01) ==
LOC: ED 14:06
DX: F11.20 Opioid dependence, uncomplicated (principal); F19.20 Other psychoactive substance dependence, uncomplicated; I10 Essential (primary) hypertension; F17.210 Nicotine dependence, cigarettes, uncomplicated; E87.6 Hypokalemia; Z59.0 Homelessness; E03.9 Hypothyroidism, unspecified; F41.9 Anxiety disorder, unspecified
CPT/HCPCS: 36415; 80053; 80307; 80320; 80329; 81003; 82550; 83605; 84443; 84484; 85025; 87522; 93005; 96361; 96372; 96374; 99285; A9270-GY; G0480; J1630; J2060

== ENCOUNTER 2018-09-07 11:55 | Emergency (ER) | payer OTHER ==
[2018-09-07] MEDS ORDERED: Nicotine Inhaler* 10 MG AMP INH PRN (12:08)
[2018-09-07] MEDS ORDERED: NS 0.9% 1000 ML** 1,000 ML IV ONE ×2 (12:09→12:37)
[2018-09-07 12:33] LABS: ABS Basophils 0.1 10^3/ul (0-0.2); ABS Eosinophils 0.1 10^3/ul (0-0.6); ABS Lymphocytes 1.6 10^3/ul (1.0-4.8); ABS Monocytes 0.7 10^3/ul (0-0.8); ABS Neutrophils 4.8 10^3/ul (1.5-7.7); ABS Nucleated RBC 0 10^3/ul; Eosinophil % 1.4 %; Hematocrit 44 % (36-46); Hemoglobin 14.6 g/dL (14.0-18.0); Lymphocyte % 21.8 %; Mean Corpuscular HGB Conc 33 g/dL (31-36); Mean Corpuscular Hemoglobin 28 pg (27-31); Mean Corpuscular Volume 83 fL (80-94); Mean Platelet Volume 8.4 fL (7.4-10.4); Nucleated Red Blood Cells % 0.1; Platelet Count 217 10^3/uL (150-450); Red Blood Count 5.29 10^6 /uL (4.18-5.48); Red Cell Distribution Width 16 % (10.5-15); White Blood Count 7.1 10^3/uL (3.5-10.8)
[2018-09-07] MEDS ORDERED: LORazepam INJ* 2 MG/ML 1 ML VIAL IV PUSH ONE (12:36)
--- NOTE | 2018-09-07 12:47 | ED ---
Substance Abuse/Use - HPI Summary HPI Summary: A 28 y/o male brought in by [facility] ambulance presents to [facility] with a chief complaint of overdose today. The patient reports that at 08:00 today he took 48 capsules of Coricidin (4mg chlorpheniramine, 30mg dextromethorphan) in an attempted suicide. Per EMS, earlier in the week the patient took 64 capsules of coricidin. He denies any pain, rating his pain as a 0/10 in severity. His temperature was noted at 100.2 upon arrival, even though he was found outside in the cold. Vital signs while in room HR: 136bpm, O2 Sat: 98, BP: 158/112. - History Of Current Complaint Chief Complaint: EDOverdose Stated Complaint: POSS OVERDOSE PER EMS Hx Obtained From: Patient, EMS Onset/Duration of Drug/ETOH Abuse: Hours Ingestion History: Type/Name Of Drug - Coricidin (4mg chlorpheniramine, 30mg dextromethorphan), Amount Ingested - 48 capsules Coricidin (4mg chlorpheniramine , 30mg dextromethorphan), Approximate Time Of Ingestion - 08:00 Overdose Characteristics: Oral Timing Of Abuse: Binge Use Severity Initially: Mild Severity Currently: Mild Character: Depressed Aggravating Factor(s): Nothing Alleviating Factor(s): Nothing Associated Signs And Symptoms: Other: - temperature of 100.2 upon arrival - Allergies/Home Medications Allergies/Adverse Reactions: Allergies Allergy/AdvReac Type Severity Reaction Status Date / Time No Known Allergies Allergy Verified 09/07/18 12:05 PMH/Surg Hx/FS Hx/Imm Hx Endocrine/Hematology History: Reports: Hx Thyroid Disease - Hypothyroidism Denies: Hx Anticoagulant Therapy, Hx Blood Disorders, Hx Blood Transfusions, Hx Bone Marrow Disease, Hx Diabetes, Hx Systemic Lupus Erythematosus, Hx Sickle Cell Disease, Hx Anemia, Hx Unexplained Bleeding, Other Endocrine/Hematological Disorders Cardiovascular History: Reports: Hx Hypertension Denies: Hx Aneurysm, Hx Angina, Hx Angioplasty, Hx Auto Implanted Cardiovert Defib, Hx Cardiac Arrest, Hx Cardiomegaly, Hx Congenital Heart Disease, Hx Congestive Heart Failure, Hx Coronary Artery Disease, Hx Deep Vein Thrombosis, Hx Embolism, Hx Hypercholesterolemia, Hx Hypotension, Hx Pacemaker/ICD, Hx Peripheral Vascular Disease, Hx Rheumatic Fever, Hx Syncope, Hx Valvular Heart Disease, Other Cardiovascular Problems/Disorders Respiratory History: Reports: Hx Pneumonia, Hx Seasonal Allergies Denies: Hx Asthma, Hx Chronic Bronchitis, Hx Chronic Obstructive Pulmonary Disease (COPD), Hx Cystic Fibrosis, Hx Lung Cancer, Hx Pleural Effusion, Hx Pulmonary Edema, Hx Pulmonary Embolism, Hx Sleep Apnea, Other Respiratory Problems/Disorders GI History: Reports: Hx Ulcer Denies: Hx Cirrhosis, Hx Crohn's Disease, Hx Diverticulosis, Hx Gall Bladder Disease, Hx Gastroesophageal Reflux Disease, Hx Gastrointestinal Bleed, Hx Hiatal Hernia, Hx Irritable Bowel, Hx Jaundice, Hx Obstructive Bowel, Hx Ileostomy, Hx Pyloric Stenosis, Other GI Disorders History: Denies: Hx Acute Renal Failure, Hx Benign Prostatic Hyperplasia, Hx Chronic Renal Failure, Hx Dialysis, Hx Kidney Infection, Hx Kidney Stones, Hx Renal Disease, Other Problems/Disorders Musculoskeletal History: Denies: Hx Arthritis, Hx Back Problems, Hx Bursitis, Hx Congenital Bone Abnormalities, Hx Fibromyalgia, Hx Gout, Hx Orthopedic Injury, Hx Osteoporosis, Hx Scoliosis, Hx Tendonitis, Other Musculoskeletal History Sensory History: Denies: Hx Cataracts, Hx Contacts or Glasses, Hx Eye Injury, Hx Eye Prosthesis, Hx Glaucoma, Hx Legally Blind, Hx Macular Degeneration, Hx Vision Problem, Hx Deafness, Hx Hearing Aid, Other Sensory Impairments Opthamlomology History: Denies: Hx Cataracts, Hx Contacts or Glasses, Hx Eye Injury, Hx Eye Prosthesis, Hx Glaucoma, Hx Legally Blind, Hx Macular Degeneration, Hx Vision Problem, Other Sensory Impairments Neurological History: Reports: Hx Headaches, Hx Seizures Denies: Hx Dementia, Hx Developmental Delay, Hx Migraine, Hx Nerve Disease, Hx Spinal Cord Injury, Hx Transient Ischemic Attacks (TIA), Other Neuro Impairments/Disorders Psychiatric History: Reports: Hx Anxiety, Hx Depression, Hx Post Traumatic Stress Disorder, Hx Inpatient Treatment, Hx Community Mental Health Tx, Hx Bipolar Disorder, Hx of Violent Episodes Against Others, Hx Substance Abuse, Other Psychiatric Issues/Disorders Denies: Hx Attention Deficit Hyperactivity Disorder, Hx Eating Disorder, Hx Panic Disorder, Hx Schizophrenia, Hx Suicide Attempt - Cancer History Cancer Type, Location and Year: None reported - Surgical History Surgery Procedure, Year, and Place: none Hx Anesthesia Reactions: No - Immunization History Date of Tetanus Vaccine: Unknown Date of Influenza Vaccine: None Infectious Disease History: No Infectious Disease History: Reports: Hx Hepatitis - Hep C Denies: Hx Clostridium Difficile, Hx Human Immunodeficiency Virus (HIV), Hx of Known/Suspected MRSA, Hx Shingles, Hx Tuberculosis, Hx Known/Suspected VRE, Hx Known/Suspected VRSA, History Other Infectious Disease, Traveled Outside the [place] in Last 30 Days - Family History Known Family History: Positive: Other - cancer Negative: Renal Disease - Social History Alcohol Use: Daily Alcohol Amount: unk Hx Substance Use: Yes Substance Use Type: 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 Substance Use Comment - Amount & Last Used: 09/04/18 Coricidin overdose; 09/05/18 Coricidin overdose Hx Tobacco Use: Yes Smoking Status (MU): Former Smoker Type: Cigarettes Have You Smoked in the Last Year: Yes Review of Systems Positive: Fever - 100.2 upon arrival Psychological: Other - Positive: suicide attempt, took 48 Coricidin (4mg chlorpheniramine, 30mg dextromethorphan) All Other Systems Reviewed And Are Negative: Yes Physical Exam - Summary Physical Exam Summary: GENERAL: Patient is a well-developed and nourished M who is lying comfortable in the stretcher. Patient is not in any acute respiratory distress. Patient is febrile. HEAD AND FACE: Normocephalic EYES: Pupils dilated, EOMI x 2. EARS: Hearing grossly intact. MOUTH: Oropharynx within normal limits. NECK: Supple, trachea is midline, no adenopathy, no JVD, no carotid bruit. CHEST: Symmetric, no tenderness at palpation LUNGS: Clear to auscultation bilaterally. No wheezing or crackles. CVS: Tachycardic, S1 and S2 present, no murmurs or gallops appreciated. ABDOMEN: Soft, non-tender. Bowel sounds are normal. No abdominal abnormal pulsations. EXTREMITIES: Full ROM in all major joints, no edema, no cyanosis or clubbing. NEURO: Alert and oriented x 3. No acute neurological deficits. Speech is normal and follows commands. SKIN: Dry and warm, face is flush Psych: suicide attempt Triage Information Reviewed: Yes Vital Signs On Initial Exam: Initial Vitals Temp Pulse Resp BP Pulse Ox 100.2 F 120 26 158/112 97 09/07/18 12:00 09/07/18 12:00 09/07/18 12:00 09/07/18 12:00 09/07/18 12:00 Vital Signs Reviewed: Yes Diagnostics - Vital Signs Vital Signs Temp Pulse Resp BP Pulse Ox 09/07/18 12:00 100.2 F 120 26 158/112 97 - Laboratory Lab Results: Lab Results 09/07/18 Range/Units 12:20 WBC 7.1 (3.5-10.8) 10^3/uL RBC 5.29 (4.18-5.48) 10^6 /uL Hgb 14.6 (14.0-18.0) g/dL Hct 44 (36-46) % MCV 83 (80-94) fL MCH 28 (27-31) pg MCHC 33 (31-36) g/dL RDW 16 H (10.5-15) % Plt Count 217 (150-450) 10^3/uL MPV 8.4 (7.4-10.4) fL Neut % (Auto) 66.8 % Lymph % (Auto) 21.8 % [place] % (Auto) 9.3 % Eos % (Auto) 1.4 % Baso % (Auto) 0.7 % Absolute Neuts (auto) 4.8 (1.5-7.7) 10^3/ul Absolute Lymphs (auto) 1.6 (1.0-4.8) 10^3/ul Absolute Monos (auto) 0.7 (0-0.8) 10^3/ul Absolute Eos (auto) 0.1 (0-0.6) 10^3/ul Absolute Basos (auto) 0.1 (0-0.2) 10^3/ul Absolute Nucleated RBC 0 10^3/ul Nucleated RBC % 0.1 Result Diagrams: 09/07/18 12:20 09/07/18 12:20 Lab Statement: Any lab studies that have been ordered have been reviewed, and results considered in the medical decision making process. - EKG 12:05 Cardiac Rate: Tachycardia - 122 bpm EKG Rhythm: Sinus Tachycardia Summary of EKG Findings: Sinus tachycardia at 122 bpm with normal axis. Re-Evaluation - Re-Evaluation First Eval Re-Evaluation Time: 18:00 Change: Unchanged Comment: Pt cleared for MHE. Course/Dx - Course Course Of Treatment: A 28 y/o male brought in by [facility] ambulance presents to [facility] with a chief complaint of overdose today. The patient reports that at 08: 00 today he took 48 capsules of Coricidin (4mg chlorpheniramine, 30mg dextromethorphan) in an attempted suicide. Workup is remarkable. The physical exam revealed that the patient attempted suicide. Bloodwork, chemistries, urines and toxicology obtained. The patient has been medically cleared for a MHE at 18:00. In the ED course the patient was given Tylenol PO, nicotine INH, Ativan IV and sodium chloride IV. The patient will be signed out from Dr. Lynch to Dr. Slade upon shift change at 19:00 09/07/18 pending MHE. - Diagnoses Provider Diagnoses: Overdose of common cold drug, Anxiety, Substance use disorder - Physician Notifications Discussed Care Of Patient With: Alee Barrientos Time Discussed With Above Provider: 12:46 Instructed by Provider To: Other - recommended keeping patient in the ED until cleared for psych eval instead of admission. - Critical Care Time Critical Care Time: 30-74 min Discharge - Sign-Out/Discharge Documenting (check all that apply): Sign-Out Patient Signing out patient TO: Ad Slade - pending MHE Patient Received Moderate/Deep Sedation with Procedure: No - Discharge Plan Condition: Improved Disposition: HOME Patient Education Materials: Anxiety (ED) Referrals: Care [facility] [Outside] Additional Instructions: Per completion of a mental health evaluation, you are cleared for release and do not require inpatient psychiatric hospitalization at this time. Please go to nearest emergency room or call 911 if safety concerns arise or condition worsens. Important Phone Numbers: [facility] ph:[phone] Suicide Prevention and Crisis Services ph:[phone] National Suicide Prevention Lifeline ph:[phone]- TALK (9638) [facility] ph:[phone] Alcoholics Anonymous ph: [facility] ph:[phone] [facility] Police ph:[phone] Recommendation: Follow up with [facility] on Monday [phone] and [facility] [place] on Monday . Discharge to Skilled Nursing program. - Billing Disposition and Condition Condition: IMPROVED Disposition: Home - Attestation Statements Document Initiated by Scribe: Yes Documenting Scribe: Dave Gamboa Provider For Whom Scribe is Documenting (Include Credential): Dano Lynch MD Scribe Attestation: I, Dave Gamboa, scribed for Dano Lynch MD on 09/08/18 at 0730. Scribe Documentation Reviewed: Yes Provider Attestation: The documentation as recorded by the scribe, Dave Gamboa accurately reflects the service I personally performed and the decisions made by me, Keturah Lynch MD Status of Scribe Document: Viewed
[2018-09-07 12:50] LABS: ALT 29 U/L (7-52); AST 28 U/L (13-39); Albumin 4.8 g/dL (3.2-5.2); Albumin/Globulin Ratio 1.7 (1-3); Alkaline Phosphatase 60 U/L (34-104); Anion Gap 13 mmol/L (2-11); BUN/Creatinine Ratio 6.9 (8-20); Blood Urea Nitrogen 7 mg/dL (6-24); CO2 Carbon Dioxide 22 mmol/L (22-32); Calcium 9.5 mg/dL (8.6-10.3); Chloride 103 mmol/L (101-111); EGFR African American 105.2 (>60); Globulin 2.8 g/dL (2-4); Glucose 100 mg/dL (70-100); Potassium 3.4 mmol/L (3.5-5.0); Sodium 138 mmol/L (135-145); Total Protein 7.6 g/dL (6.4-8.9)
[2018-09-07 13:06] LABS: Urine Appearance Clear; Urine Bilirubin Negative (Negative); Urine Blood Negative (Negative); Urine Color Straw; Urine Glucose Negative (Negative); Urine Ketones Negative (Negative); Urine Nitrite Negative (Negative); Urine Protein Negative (Negative); Urine Specific Gravity 1.003 (1.010-1.030); Urine Urobilinogen Negative (Negative)
[2018-09-07 13:09] LABS: Barbiturates Urine Screen None Detected (None Detect); Benzodiazepine Urine Screen None Detected (None Detect); Urine Cannabinoids Screen None Detected (None Detect)
[2018-09-07 13:22] LABS: Alcohol < 10 mg/dL (<10); Salicylate < 2.50 mg/dL (<30)
[2018-09-07 13:37] LABS: TSH (Thyroid Stimulating Horm) 8.18 mcIU/mL (0.34-5.60)
[2018-09-07 13:40] LABS: Acetaminophen 3 mcg/mL
[2018-09-07] MEDS ORDERED: Acetaminophen TAB* 325 MG PO ONE (16:09)
--- NOTE | 2018-09-07 19:15 | ED ---
Progress - Progress Note Progress Note: Receiving sign out from Dr. Lynch, pending MHE. Pt's condition has been stable. Spoke to Mental Health Wiring Technician Jose M on behalf of Dr. Hurst at 19:30, who said the patient can be discharged. spoke to the homeless care home who accepts the patient. He is agreeable with this plan. Re-Evaluation - Re-Evaluation First Eval Re-Evaluation Time: 18:00 Change: Unchanged Comment: Pt cleared for MHE. Course/Dx - Course Course Of Treatment: I assumed care for this patient. The patient was treated for his anxiety. He completed his mental health evaluation was discharged back to the care home with outpatient follow-up. He is encouraged not to over use over -the-counter medications. - Diagnoses Provider Diagnoses: Overdose of common cold drug, Anxiety, Substance use disorder Discharge - Sign-Out/Discharge Documenting (check all that apply): Patient Departure - Discharge, Receiving Sign-Out Receiving patient FROM: Dano Lynch Patient Received Moderate/Deep Sedation with Procedure: No - Discharge Plan Condition: Improved Disposition: HOME Patient Education Materials: Anxiety (ED) Referrals: Care [facility] [Outside] Additional Instructions: Per completion of a mental health evaluation, you are cleared for release and do not require inpatient psychiatric hospitalization at this time. Please go to nearest emergency room or call 911 if safety concerns arise or condition worsens. Important Phone Numbers: [facility] Behavioral Services Unit ph:[phone] Suicide Prevention and Crisis Services ph:[phone] National Suicide Prevention Lifeline ph:[phone] SMUI (0489) [facility] ph:[phone] Alcoholics Anonymous ph: [facility] ph:[phone] [place] [employer] Police ph:[phone] Recommendation: Follow up with [facility] on Monday and [facility] [place] on Monday . Discharge to [facility] program. - Billing Disposition and Condition Condition: IMPROVED Disposition: Home - Attestation Statements Document Initiated by Scribe: Yes Documenting Scribe: Martha Novak Provider For Whom Scribe is Documenting (Include Credential): Ad Slade MD Scribe Attestation: IMartha, scribed for Ad Slade MD on 09/08/18 at 0016. Scribe Documentation Reviewed: Yes Provider Attestation: The documentation as recorded by the scribeMartha accurately reflects the service I personally performed and the decisions made by me, Ad Slade MD Status of Scribe Document: Viewed
[2018-09-07] MEDS ORDERED: hydrOXYzine HCL TAB* 50 MG PO ONE (19:32)
[2018-09-07 20:50] VITALS: BP 132/88
== END 2018-09-07 20:49 | disposition home or self-care (01) ==
LOC: ED 11:55
DX: T48.3X1A Poisoning by antitussives, accidental (unintentional), initial encounter (principal); T45.0X1A Poisoning by antiallergic and antiemetic drugs, accidental (unintentional), initial encounter; F41.9 Anxiety disorder, unspecified; F19.90 Other psychoactive substance use, unspecified, uncomplicated; Y92.9 Unspecified place or not applicable; Z87.891 Personal history of nicotine dependence
CPT/HCPCS: 36415; 80053; 80307; 80320; 80329; 81003; 83605; 84443; 85025; 93005; 99283; A9270-GY; G0480; J2060

== ENCOUNTER 2018-09-08 12:20 | Emergency (ER) | payer OTHER ==
[2018-09-08] MEDS ORDERED: Nicotine Inhaler* 10 MG AMP INH PRN (12:46)
[2018-09-08] MEDS ORDERED: NS 0.9% 1000 ML** 1,000 ML IV ONE (12:47)
--- NOTE | 2018-09-08 12:47 | ED ---
Substance Abuse/Use - HPI Summary HPI Summary: The patient is a 28 y/o F presenting to [facility] arriving by ambulance with a chief complaint of taking 48 Chlorasedine pills today. He reports SI. EMS notes that the patient said he didn't want to take the meds, but "Siria" told him to. He says he wants to be a girl and that's why he has SI. He was at [facility] consecutively for the last few days with the same complaint and presentation. Patient will be signed out from Dr. Dano Lynch to Dr. Brayan Richardson during a shift change at 19:00 09/08/18, pending medical clearance for MHE and a MHE. - History Of Current Complaint Chief Complaint: EDSubstanceAbuse Stated Complaint: OVERDOES PER LAW Time Seen by Provider: 09/08/18 12:23 Hx Obtained From: Patient, EMS Onset/Duration of Drug/ETOH Abuse: Days - 4-5 Ingestion History: Type/Name Of Drug - Chlorasedine, Amount Ingested - 48 tabs Timing Of Abuse: Daily Severity Initially: Moderate Severity Currently: Moderate Character: Other - SI Aggravating Factor(s): Other - states he wants to be a girl Alleviating Factor(s): Nothing Associated Signs And Symptoms: Other: - SI Related Hx: Suicidal, Suicidal: Thoughts, Suicidal: Plan - overdose on Chlorasedine - Allergies/Home Medications Allergies/Adverse Reactions: Allergies Allergy/AdvReac Type Severity Reaction Status Date / Time No Known Allergies Allergy Verified 09/07/18 12:05 PMH/Surg Hx/FS Hx/Imm Hx Endocrine/Hematology History: Reports: Hx Thyroid Disease - Hypothyroidism Denies: Hx Anticoagulant Therapy, Hx Blood Disorders, Hx Blood Transfusions, Hx Bone Marrow Disease, Hx Diabetes, Hx Systemic Lupus Erythematosus, Hx Sickle Cell Disease, Hx Anemia, Hx Unexplained Bleeding, Other Endocrine/Hematological Disorders Cardiovascular History: Reports: Hx Hypertension Denies: Hx Aneurysm, Hx Angina, Hx Angioplasty, Hx Auto Implanted Cardiovert Defib, Hx Cardiac Arrest, Hx Cardiomegaly, Hx Congenital Heart Disease, Hx Congestive Heart Failure, Hx Coronary Artery Disease, Hx Deep Vein Thrombosis, Hx Embolism, Hx Hypercholesterolemia, Hx Hypotension, Hx Pacemaker/ICD, Hx Peripheral Vascular Disease, Hx Rheumatic Fever, Hx Syncope, Hx Valvular Heart Disease, Other Cardiovascular Problems/Disorders Respiratory History: Reports: Hx Pneumonia, Hx Seasonal Allergies Denies: Hx Asthma, Hx Chronic Bronchitis, Hx Chronic Obstructive Pulmonary Disease (COPD), Hx Cystic Fibrosis, Hx Lung Cancer, Hx Pleural Effusion, Hx Pulmonary Edema, Hx Pulmonary Embolism, Hx Sleep Apnea, Other Respiratory Problems/Disorders GI History: Reports: Hx Ulcer Denies: Hx Cirrhosis, Hx Crohn's Disease, Hx Diverticulosis, Hx Gall Bladder Disease, Hx Gastroesophageal Reflux Disease, Hx Gastrointestinal Bleed, Hx Hiatal Hernia, Hx Irritable Bowel, Hx Jaundice, Hx Obstructive Bowel, Hx Ileostomy, Hx Pyloric Stenosis, Other GI Disorders History: Denies: Hx Acute Renal Failure, Hx Benign Prostatic Hyperplasia, Hx Chronic Renal Failure, Hx Dialysis, Hx Kidney Infection, Hx Kidney Stones, Hx Renal Disease, Other Problems/Disorders Musculoskeletal History: Denies: Hx Arthritis, Hx Back Problems, Hx Bursitis, Hx Congenital Bone Abnormalities, Hx Fibromyalgia, Hx Gout, Hx Orthopedic Injury, Hx Osteoporosis, Hx Scoliosis, Hx Tendonitis, Other Musculoskeletal History Sensory History: Denies: Hx Cataracts, Hx Contacts or Glasses, Hx Eye Injury, Hx Eye Prosthesis, Hx Glaucoma, Hx Legally Blind, Hx Macular Degeneration, Hx Vision Problem, Hx Deafness, Hx Hearing Aid, Other Sensory Impairments Opthamlomology History: Denies: Hx Cataracts, Hx Contacts or Glasses, Hx Eye Injury, Hx Eye Prosthesis, Hx Glaucoma, Hx Legally Blind, Hx Macular Degeneration, Hx Vision Problem, Other Sensory Impairments Neurological History: Reports: Hx Headaches, Hx Seizures Denies: Hx Dementia, Hx Developmental Delay, Hx Migraine, Hx Nerve Disease, Hx Spinal Cord Injury, Hx Transient Ischemic Attacks (TIA), Other Neuro Impairments/Disorders Psychiatric History: Reports: Hx Anxiety, Hx Depression, Hx Post Traumatic Stress Disorder, Hx Inpatient Treatment, Hx Community Mental Health Tx, Hx Bipolar Disorder, Hx of Violent Episodes Against Others, Hx Substance Abuse, Other Psychiatric Issues/Disorders Denies: Hx Attention Deficit Hyperactivity Disorder, Hx Eating Disorder, Hx Panic Disorder, Hx Schizophrenia, Hx Suicide Attempt - Cancer History Cancer Type, Location and Year: None reported - Surgical History Surgery Procedure, Year, and Place: none Hx Anesthesia Reactions: No - Immunization History Date of Tetanus Vaccine: Unknown Date of Influenza Vaccine: None Infectious Disease History: No Infectious Disease History: Reports: Hx Hepatitis - Hep C Denies: Hx Clostridium Difficile, Hx Human Immunodeficiency Virus (HIV), Hx of Known/Suspected MRSA, Hx Shingles, Hx Tuberculosis, Hx Known/Suspected VRE, Hx Known/Suspected VRSA, History Other Infectious Disease, Traveled Outside the [place] in Last 30 Days - Family History Known Family History: Positive: Other - cancer Negative: Renal Disease - Social History Alcohol Use: Daily Alcohol Amount: unk Hx Substance Use: Yes Substance Use Type: 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 Substance Use Comment - Amount & Last Used: 09/04/18 Coricidin overdose; 09/05/18 Coricidin overdose Hx Tobacco Use: Yes Smoking Status (MU): Former Smoker Type: Cigarettes Have You Smoked in the Last Year: Yes Review of Systems Negative: Fever Positive: Other - taking 48 chlorasedine pills, SI All Other Systems Reviewed And Are Negative: Yes Physical Exam - Summary Physical Exam Summary: GENERAL: Patient is a well-developed and nourished male who is lying comfortable in the stretcher. Patient is not in any acute respiratory distress. HEAD AND FACE: Normocephalic EYES: PERRLA but pupils are dilated, EOMI x 2. EARS: Hearing grossly intact. MOUTH: Oropharynx within normal limits. NECK: Supple, trachea is midline, no adenopathy, no JVD, no carotid bruit. CHEST: Symmetric, no tenderness at palpation LUNGS: Clear to auscultation bilaterally. No wheezing or crackles. CVS: Tachycardic with regular rhythm, S1 and S2 present, no murmurs or gallops appreciated. ABDOMEN: Soft, non-tender. Bowel sounds are normal. No abdominal abnormal pulsations. EXTREMITIES: Full ROM in all major joints, no edema, no cyanosis or clubbing. NEURO: Alert and oriented x 3. No acute neurological deficits. Speech is normal and follows commands. SKIN: Dry and warm Triage Information Reviewed: Yes Vital Signs On Initial Exam: Initial Vitals Temp Pulse Resp BP Pulse Ox 99.9 F 115 24 157/99 97 09/08/18 12:26 09/08/18 12:26 09/08/18 12:26 09/08/18 12:26 09/08/18 12:26 Vital Signs Reviewed: Yes Diagnostics - Vital Signs Vital Signs Temp Pulse Resp BP Pulse Ox 09/08/18 12:32 114 18 98 09/08/18 12:26 99.9 F 115 17 157/99 98 - Laboratory Result Diagrams: 09/08/18 13:01 03/23/19 13:01 Lab Statement: Any lab studies that have been ordered have been reviewed, and results considered in the medical decision making process. - EKG 12:34 Cardiac Rate: Tachycardia - 150 BPM EKG Rhythm: Sinus Rhythm Summary of EKG Findings: Prolonged QT interval Course/Dx - Course Course Of Treatment: The patient is a 28 y/o F presenting to [facility] arriving by ambulance with a chief complaint of taking 48 Chlorasedine pills today with SI. Upon physical exam, the patient is tachycardic with dilated pupils. I consulted with Dr. Vargas who said do not admit because she and administrators believe patient is here for food, a place to stay, and attention. Dr. Vargas reports that it is a team effort with doctors and administrators in the future to not admit the patient, not provide the patient food, and not allow the patient a TV. Patient will be signed out from Dr. Dano Lynch to Dr. Brayan Richardson during a shift change at 19:00 09/08/18, pending medical clearance for MHE and a MHE. - Diagnoses Provider Diagnoses: Overdose - Physician Notifications Discussed Care Of Patient With: Jodee Vargas - Hospitalist Time Discussed With Above Provider: 16:30 Instructed by Provider To: Other - Do not admit because she and administrators believe patient is here for food, a place to stay, and attention. Dr. Vargas reports that it is a team effort with doctors and administrators in the future to not admit the patient, not provide the patient food, and not allow the patient a TV. Discharge - Sign-Out/Discharge Documenting (check all that apply): Sign-Out Patient Signing out patient TO: Brayan Richardson - pending medical clearance for MHE and a MHE. - Discharge Plan Referrals: No Primary Care Phys,NOPCP [Primary Care Provider] - - Attestation Statements Document Initiated by Scribe: Yes Documenting Scribe: Nat Ibrahim Provider For Whom Mario is Documenting (Include Credential): Dr. Dano Lynch MD Scribe Attestation: Nat Brunner scribed for Dr. Dano Lynch MD on 09/08/18 at 1826. Scribe Documentation Reviewed: Yes Provider Attestation: The documentation as recorded by the Nat fournier accurately reflects the service I personally performed and the decisions made by me, Dr. Dano Lynch MD Status of Scribe Document: Viewed
[2018-09-08] MEDS ORDERED: LORazepam INJ* 2 MG/ML 1 ML VIAL IV PUSH ONE ×2 (12:50→16:39)
[2018-09-08 13:15] LABS: ABS Basophils 0.1 10^3/ul (0-0.2); ABS Eosinophils 0.1 10^3/ul (0-0.6); ABS Lymphocytes 1.9 10^3/ul (1.0-4.8); ABS Monocytes 0.4 10^3/ul (0-0.8); ABS Nucleated RBC 0 10^3/ul; Eosinophil % 1.5 %; Hematocrit 44 % (36-46); Hemoglobin 14.5 g/dL (14.0-18.0); Lymphocyte % 34.2 %; Mean Corpuscular HGB Conc 33 g/dL (31-36); Mean Corpuscular Hemoglobin 28 pg (27-31); Mean Corpuscular Volume 84 fL (80-94); Nucleated Red Blood Cells % 0.2; Platelet Count 231 10^3/uL (150-450); Red Blood Count 5.22 10^6 /uL (4.18-5.48); Red Cell Distribution Width 16 % (10.5-15); White Blood Count 5.5 10^3/uL (3.5-10.8)
[2018-09-08 13:29] LABS: ALT 32 U/L (7-52); AST 28 U/L (13-39); Albumin 4.8 g/dL (3.2-5.2); Albumin/Globulin Ratio 1.7 (1-3); Alkaline Phosphatase 56 U/L (34-104); Anion Gap 11 mmol/L (2-11); BUN/Creatinine Ratio 7.9 (8-20); Blood Urea Nitrogen 8 mg/dL (6-24); CO2 Carbon Dioxide 22 mmol/L (22-32); Calcium 9.2 mg/dL (8.6-10.3); Chloride 106 mmol/L (101-111); EGFR African American 106.4 (>60); Globulin 2.8 g/dL (2-4); Glucose 66 mg/dL (70-100); Potassium 3.3 mmol/L (3.5-5.0); Sodium 139 mmol/L (135-145); Total Protein 7.6 g/dL (6.4-8.9)
[2018-09-08 13:48] LABS: Acetaminophen < 15 mcg/mL; Alcohol 16 mg/dL (<10); Salicylate < 2.50 mg/dL (<30)
[2018-09-08 14:05] LABS: TSH (Thyroid Stimulating Horm) 3.64 mcIU/mL (0.34-5.60)
[2018-09-08 14:17] LABS: Urine Appearance Clear; Urine Bilirubin Negative (Negative); Urine Blood Negative (Negative); Urine Color Straw; Urine Glucose Negative (Negative); Urine Ketones Negative (Negative); Urine Nitrite Negative (Negative); Urine Protein Negative (Negative); Urine Specific Gravity 1.004 (1.010-1.030); Urine Urobilinogen Negative (Negative)
[2018-09-08 14:27] LABS: Barbiturates Urine Screen None Detected (None Detect); Benzodiazepine Urine Screen None Detected (None Detect); Urine Cannabinoids Screen None Detected (None Detect)
[2018-09-08] MEDS ORDERED: Potassium Chlor TAB* 20 MEQ TAB.ER PO ONE (16:19)
--- NOTE | 2018-09-08 19:15 | ED ---
Progress - Progress Note Progress Note: This patient is signed out from Dr. Lynch at 1900 awaiting medical clearance and mental health evaluation. Per nurse, patient requested Ativan. Nurse reports poison control states benzos can be given for agitation. Course/Dx - Course Course Of Treatment: The patient is a 28 y/o F presenting to [facility] arriving by ambulance with a chief complaint of taking 48 Chlorasedine pills today with SI. Upon physical exam, the patient is tachycardic with dilated pupils. I consulted with Dr. Vargas who said do not admit because she and administrators believe patient is here for food, a place to stay, and attention. Dr. Vargas reports that it is a team effort with doctors and administrators in the future to not admit the patient, not provide the patient food, and not allow the patient a TV. Patient will be signed out from Dr. Dano Lynch to Dr. Brayan Richardson during a shift change at 19:00 09/08/18, pending medical clearance for MHE and a MHE. - Diagnoses Provider Diagnoses: Overdose - Provider Notifications Time Discussed With Above Provider: 16:30 Instructed by Provider To: Other - Do not admit because she and administrators believe patient is here for food, a place to stay, and attention. Dr. Vargas reports that it is a team effort with doctors and administrators in the future to not admit the patient, not provide the patient food, and not allow the patient a TV. Discharge - Sign-Out/Discharge Documenting (check all that apply): Sign-Out Patient Signing out patient TO: Dano Lynch Patient Received Moderate/Deep Sedation with Procedure: No - Discharge Plan Condition: Good Disposition: HOME Referrals: No Primary Care Phys,NOPCP [Primary Care Provider] - - Billing Disposition and Condition Condition: GOOD Disposition: Home - Attestation Statements Document Initiated by Scribe: Yes Documenting Scribe: Zee Alfaro Provider For Whom Mario is Documenting (Include Credential): Brayan Richardson MD Scriblissy Attestation: Zee Brunner, scribed for Brayan Richardson MD on 09/08/18 at 2354. Scribe Documentation Reviewed: Yes Provider Attestation: The documentation as recorded by the Zee fournier accurately reflects the service I personally performed and the decisions made by me, Brayan Richardson MD Status of Scribe Document: Viewed
[2018-09-08] MEDS ORDERED: LORazepam TAB(*) 1 MG PO ONE (19:59)
[2018-09-08] MEDS ORDERED: hydrOXYzine HCL TAB* 50 MG PO ONE (23:13)
[2018-09-09 02:33] VITALS: BP 132/95
== END 2018-09-09 02:32 | disposition home or self-care (01) ==
LOC: ED 12:20
DX: T48.5X2A Poisoning by other anti-common-cold drugs, intentional self-harm, initial encounter (principal); R00.0 Tachycardia, unspecified; Y92.9 Unspecified place or not applicable; Z87.891 Personal history of nicotine dependence
CPT/HCPCS: 36415; 80053; 80307; 80320; 80329; 81003; 84443; 85025; 93005; 96361; 96374; 96376; 99285; A9270-GY; G0480; J2060

== ENCOUNTER 2018-09-09 11:30 | Emergency (ER) | payer OTHER ==
[2018-09-09] MEDS ORDERED: NS 0.9% 1000 ML** 1,000 ML IV ONE (12:10)
[2018-09-09 12:38] LABS: ABS Basophils 0.1 10^3/ul (0-0.2); ABS Eosinophils 0 10^3/ul (0-0.6); ABS Lymphocytes 1.8 10^3/ul (1.0-4.8); ABS Monocytes 0.6 10^3/ul (0-0.8); ABS Neutrophils 4.4 10^3/ul (1.5-7.7); ABS Nucleated RBC 0 10^3/ul; Eosinophil % 0.5 %; Hematocrit 45 % (36-46); Hemoglobin 14.8 g/dL (14.0-18.0); Lymphocyte % 26.3 %; Mean Corpuscular HGB Conc 33 g/dL (31-36); Mean Corpuscular Hemoglobin 27 pg (27-31); Mean Corpuscular Volume 83 fL (80-94); Mean Platelet Volume 8.1 fL (7.4-10.4); Nucleated Red Blood Cells % 0; Platelet Count 226 10^3/uL (150-450); Red Blood Count 5.42 10^6 /uL (4.18-5.48); Red Cell Distribution Width 16 % (10.5-15); White Blood Count 6.8 10^3/uL (3.5-10.8)
[2018-09-09 12:56] LABS: ALT 32 U/L (7-52); AST 30 U/L (13-39); Albumin 4.9 g/dL (3.2-5.2); Albumin/Globulin Ratio 1.6 (1-3); Alkaline Phosphatase 59 U/L (34-104); Anion Gap 9 mmol/L (2-11); BUN/Creatinine Ratio 7.5 (8-20); Blood Urea Nitrogen 8 mg/dL (6-24); CO2 Carbon Dioxide 23 mmol/L (22-32); Calcium 9.7 mg/dL (8.6-10.3); Chloride 106 mmol/L (101-111); EGFR African American 100.7 (>60); EGFR Non-African American 83.2 (>60); Glucose 82 mg/dL (70-100); Potassium 3.3 mmol/L (3.5-5.0); Sodium 138 mmol/L (135-145); Total Protein 7.9 g/dL (6.4-8.9)
[2018-09-09 13:21] LABS: Acetaminophen < 15 mcg/mL; Alcohol < 10 mg/dL (<10); Salicylate < 2.50 mg/dL (<30)
[2018-09-09 13:33] LABS: Urine Appearance Clear; Urine Bilirubin Negative (Negative); Urine Blood Negative (Negative); Urine Color Straw; Urine Glucose Negative (Negative); Urine Ketones Trace (Negative); Urine Nitrite Negative (Negative); Urine Protein Negative (Negative); Urine Specific Gravity 1.004 (1.010-1.030); Urine Urobilinogen Negative (Negative)
[2018-09-09 13:41] LABS: Barbiturates Urine Screen None Detected (None Detect); Benzodiazepine Urine Screen None Detected (None Detect); Urine Cannabinoids Screen None Detected (None Detect)
[2018-09-09 18:24] VITALS: BP 143/109
--- NOTE | 2018-09-10 06:29 | ED ---
Substance Abuse/Use - HPI Summary HPI Summary: Patient is a 28-year-old male who prefers to be called female, "Siria" presenting to the [facility] ED by ambulance after taking 48 Coracedine pills today. He has been seen multiple times in the last several days to weeks for same. Denies SI/HI today, but c/o this yesterday on arrival. States he wants to a have a sex change which is why he was claiming he had SI. It is believed by staff/hospitalist team this patient often comes in wanting food/bed. They have stated inthe past they will not admit this individual and we tend to keep for 6 hours for observation after the ingestion. - History Of Current Complaint Chief Complaint: EDOverdose Stated Complaint: OVERDOSE Time Seen by Provider: 09/09/18 11:38 Hx Obtained From: Patient Ingestion History: Type/Name Of Drug - coracedin, Amount Ingested - 48 pills, Approximate Time Of Ingestion - 11am Overdose Characteristics: Oral Timing Of Abuse: Daily Severity Initially: Moderate Severity Currently: Moderate Character: Depressed Aggravating Factor(s): Nothing Alleviating Factor(s): Nothing Associated Signs And Symptoms: Negative Related Hx: Suicidal - Risk Factor(s) Completed Suicide Risk Factors: Male, White Indonesian - Allergies/Home Medications Allergies/Adverse Reactions: Allergies Allergy/AdvReac Type Severity Reaction Status Date / Time No Known Allergies Allergy Verified 09/07/18 12:05 PMH/Surg Hx/FS Hx/Imm Hx Previously Healthy: Yes Endocrine/Hematology History: Reports: Hx Thyroid Disease - Hypothyroidism Denies: Hx Anticoagulant Therapy, Hx Blood Disorders, Hx Blood Transfusions, Hx Bone Marrow Disease, Hx Diabetes, Hx Systemic Lupus Erythematosus, Hx Sickle Cell Disease, Hx Anemia, Hx Unexplained Bleeding, Other Endocrine/Hematological Disorders Cardiovascular History: Reports: Hx Hypertension Denies: Hx Aneurysm, Hx Angina, Hx Angioplasty, Hx Auto Implanted Cardiovert Defib, Hx Cardiac Arrest, Hx Cardiomegaly, Hx Congenital Heart Disease, Hx Congestive Heart Failure, Hx Coronary Artery Disease, Hx Deep Vein Thrombosis, Hx Embolism, Hx Hypercholesterolemia, Hx Hypotension, Hx Pacemaker/ICD, Hx Peripheral Vascular Disease, Hx Rheumatic Fever, Hx Syncope, Hx Valvular Heart Disease, Other Cardiovascular Problems/Disorders Respiratory History: Reports: Hx Pneumonia, Hx Seasonal Allergies Denies: Hx Asthma, Hx Chronic Bronchitis, Hx Chronic Obstructive Pulmonary Disease (COPD), Hx Cystic Fibrosis, Hx Lung Cancer, Hx Pleural Effusion, Hx Pulmonary Edema, Hx Pulmonary Embolism, Hx Sleep Apnea, Other Respiratory Problems/Disorders GI History: Reports: Hx Ulcer Denies: Hx Cirrhosis, Hx Crohn's Disease, Hx Diverticulosis, Hx Gall Bladder Disease, Hx Gastroesophageal Reflux Disease, Hx Gastrointestinal Bleed, Hx Hiatal Hernia, Hx Irritable Bowel, Hx Jaundice, Hx Obstructive Bowel, Hx Ileostomy, Hx Pyloric Stenosis, Other GI Disorders History: Denies: Hx Acute Renal Failure, Hx Benign Prostatic Hyperplasia, Hx Chronic Renal Failure, Hx Dialysis, Hx Kidney Infection, Hx Kidney Stones, Hx Renal Disease, Other Problems/Disorders Musculoskeletal History: Denies: Hx Arthritis, Hx Back Problems, Hx Bursitis, Hx Congenital Bone Abnormalities, Hx Fibromyalgia, Hx Gout, Hx Orthopedic Injury, Hx Osteoporosis, Hx Scoliosis, Hx Tendonitis, Other Musculoskeletal History Sensory History: Denies: Hx Cataracts, Hx Contacts or Glasses, Hx Eye Injury, Hx Eye Prosthesis, Hx Glaucoma, Hx Legally Blind, Hx Macular Degeneration, Hx Vision Problem, Hx Deafness, Hx Hearing Aid, Other Sensory Impairments Opthamlomology History: Denies: Hx Cataracts, Hx Contacts or Glasses, Hx Eye Injury, Hx Eye Prosthesis, Hx Glaucoma, Hx Legally Blind, Hx Macular Degeneration, Hx Vision Problem, Other Sensory Impairments Neurological History: Reports: Hx Headaches, Hx Seizures Denies: Hx Dementia, Hx Developmental Delay, Hx Migraine, Hx Nerve Disease, Hx Spinal Cord Injury, Hx Transient Ischemic Attacks (TIA), Other Neuro Impairments/Disorders Psychiatric History: Reports: Hx Anxiety, Hx Depression, Hx Post Traumatic Stress Disorder, Hx Inpatient Treatment, Hx Community Mental Health Tx, Hx Bipolar Disorder, Hx of Violent Episodes Against Others, Hx Substance Abuse, Other Psychiatric Issues/Disorders Denies: Hx Attention Deficit Hyperactivity Disorder, Hx Eating Disorder, Hx Panic Disorder, Hx Schizophrenia, Hx Suicide Attempt - Cancer History Cancer Type, Location and Year: None reported - Surgical History Surgery Procedure, Year, and Place: none Hx Anesthesia Reactions: No - Immunization History Date of Tetanus Vaccine: Unknown Date of Influenza Vaccine: None Hx Pertussis Vaccination: No Immunizations Up to Date: Yes Infectious Disease History: No Infectious Disease History: Reports: Hx Hepatitis - Hep C Denies: Hx Clostridium Difficile, Hx Human Immunodeficiency Virus (HIV), Hx of Known/Suspected MRSA, Hx Shingles, Hx Tuberculosis, Hx Known/Suspected VRE, Hx Known/Suspected VRSA, History Other Infectious Disease, Traveled Outside the [place] in Last 30 Days - Family History Known Family History: Positive: Other - cancer Negative: Renal Disease - Social History Occupation: Unemployed Lives: Alone Alcohol Use: Daily Alcohol Amount: unk Hx Substance Use: Yes Substance Use Type: 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 Substance Use Comment - Amount & Last Used: 09/04, 09/05/18,09/06,09/07,09/08,09/09 2018 Coricidin overdose Hx Tobacco Use: Yes Smoking Status (MU): Former Smoker Type: Cigarettes Have You Smoked in the Last Year: Yes Review of Systems Constitutional: Negative Negative: Fever, Chills, Fatigue, Skin Diaphoresis Negative: Palpitations, Chest Pain Negative: Shortness Of Breath, Cough Genitourinary: Negative Positive: no symptoms reported, see HPI Negative: Bruising Neurological: Negative All Other Systems Reviewed And Are Negative: Yes Physical Exam Triage Information Reviewed: Yes Vital Signs On Initial Exam: Initial Vitals Pulse BP Pulse Ox 120 153/113 98 09/09/18 11:35 09/09/18 11:35 09/09/18 11:35 Vital Signs Reviewed: Yes Appearance: Positive: Well-Appearing, Well-Nourished Skin: Positive: Warm, Skin Color Reflects Adequate Perfusion Head/Face: Positive: Normal Head/Face Inspection Eyes: Positive: EOMI, Conjunctiva Clear Neck: Positive: Supple, Nontender, No Lymphadenopathy Respiratory/Lung Sounds: Positive: Clear to Auscultation Cardiovascular: Positive: RRR, Pulses are Symmetrical in both Upper and Lower Extremities Musculoskeletal: Positive: Normal, Strength/ROM Intact Neurological: Positive: Speech Normal Psychiatric: Positive: Normal, Affect/Mood Appropriate AVPU Assessment: Alert Diagnostics - Vital Signs Vital Signs Temp Pulse Resp BP Pulse Ox 09/09/18 18:19 96.7 F 118 20 143/109 98 09/09/18 18:14 124 143/109 98 09/09/18 18:13 153/113 09/09/18 16:35 100 151/111 95 09/09/18 16:05 114 145/113 91 09/09/18 15:38 108 141/98 97 09/09/18 14:05 119 174/119 97 09/09/18 13:35 120 21 150/105 95 09/09/18 13:05 114 23 149/109 95 09/09/18 12:40 120 30 145/112 96 09/09/18 12:35 128 25 157/112 97 09/09/18 12:05 127 23 151/123 98 09/09/18 11:39 99 F 118 16 153/113 99 09/09/18 11:35 120 153/113 98 - Laboratory Lab Results: Lab Results 09/09/18 09/09/18 09/09/18 Range/Units 12:24 12:24 12:24 WBC 6.8 (3.5-10.8) 10^3/uL RBC 5.42 (4.18-5.48) 10^6 /uL Hgb 14.8 (14.0-18.0) g/dL Hct 45 (36-46) % MCV 83 (80-94) fL MCH 27 (27-31) pg MCHC 33 (31-36) g/dL RDW 16 H (10.5-15) % Plt Count 226 (150-450) 10^3/uL MPV 8.1 (7.4-10.4) fL Neut % (Auto) 63.7 % Lymph % (Auto) 26.3 % Bailey % (Auto) 8.5 % Eos % (Auto) 0.5 % Baso % (Auto) 1.0 % Absolute Neuts (auto) 4.4 (1.5-7.7) 10^3/ul Absolute Lymphs (auto) 1.8 (1.0-4.8) 10^3/ul Absolute Monos (auto) 0.6 (0-0.8) 10^3/ul Absolute Eos (auto) 0 (0-0.6) 10^3/ul Absolute Basos (auto) 0.1 (0-0.2) 10^3/ul Absolute Nucleated RBC 0 10^3/ul Nucleated RBC % 0 Sodium 138 (135-145) mmol/L Potassium 3.3 L (3.5-5.0) mmol/L Chloride 106 (101-111) mmol/L Carbon Dioxide 23 (22-32) mmol/L Anion Gap 9 (2-11) mmol/L BUN 8 (6-24) mg/dL Creatinine 1.06 (0.67-1.17) mg/dL Est GFR ( Amer) 100.7 (>60) Est GFR (Non-Af Amer) 83.2 (>60) BUN/Creatinine Ratio 7.5 L (8-20) Glucose 82 (70-100) mg/dL Lactic Acid 1.1 (0.5-2.0) mmol/L Calcium 9.7 (8.6-10.3) mg/dL Total Bilirubin 0.60 (0.2-1.0) mg/dL AST 30 (13-39) U/L ALT 32 (7-52) U/L Alkaline Phosphatase 59 (34-104) U/L Total Protein 7.9 (6.4-8.9) g/dL Albumin 4.9 (3.2-5.2) g/dL Globulin 3.0 (2-4) g/dL Albumin/Globulin Ratio 1.6 (1-3) Urine Color Urine Appearance Urine pH (5-9) Ur Specific [place] (1.010-1.030) Urine Protein (Negative) Urine Ketones (Negative) Urine Blood (Negative) Urine Nitrate (Negative) Urine Bilirubin (Negative) Urine Urobilinogen (Negative) Ur Leukocyte Esterase (Negative) Urine Glucose (Negative) Salicylates < 2.50 (<30) mg/dL Urine Opiates Screen (None Detect) Acetaminophen < 15 mcg/mL Ur Barbiturates Screen (None Detect) Ur Phencyclidine Scrn (None Detect) Ur Amphetamines Screen (None Detect) U Benzodiazepines Scrn (None Detect) Urine Cocaine Screen (None Detect) U Cannabinoids Screen (None Detect) Serum Alcohol < 10 (<10) mg/dL 09/09/18 09/09/18 Range/Units 13:13 13:13 WBC (3.5-10.8) 10^3/uL RBC (4.18-5.48) 10^6 /uL Hgb (14.0-18.0) g/dL Hct (36-46) % MCV (80-94) fL MCH (27-31) pg MCHC (31-36) g/dL RDW (10.5-15) % Plt Count (150-450) 10^3/uL MPV (7.4-10.4) fL Neut % (Auto) % Lymph % (Auto) % Bailey % (Auto) % Eos % (Auto) % Baso % (Auto) % Absolute Neuts (auto) (1.5-7.7) 10^3/ul Absolute Lymphs (auto) (1.0-4.8) 10^3/ul Absolute Monos (auto) (0-0.8) 10^3/ul Absolute Eos (auto) (0-0.6) 10^3/ul Absolute Basos (auto) (0-0.2) 10^3/ul Absolute Nucleated RBC 10^3/ul Nucleated RBC % Sodium (135-145) mmol/L Potassium (3.5-5.0) mmol/L Chloride (101-111) mmol/L Carbon Dioxide (22-32) mmol/L Anion Gap (2-11) mmol/L BUN (6-24) mg/dL Creatinine (0.67-1.17) mg/dL Est GFR ( Amer) (>60) Est GFR (Non-Af Amer) (>60) BUN/Creatinine Ratio (8-20) Glucose (70-100) mg/dL Lactic Acid (0.5-2.0) mmol/L Calcium (8.6-10.3) mg/dL Total Bilirubin (0.2-1.0) mg/dL AST (13-39) U/L ALT (7-52) U/L Alkaline Phosphatase (34-104) U/L Total Protein (6.4-8.9) g/dL Albumin (3.2-5.2) g/dL Globulin (2-4) g/dL Albumin/Globulin Ratio (1-3) Urine Color Straw Urine Appearance Clear Urine pH 7.0 (5-9) Ur Specific [place] 1.004 L (1.010-1.030) Urine Protein Negative (Negative) Urine Ketones Trace A (Negative) Urine Blood Negative (Negative) Urine Nitrate Negative (Negative) Urine Bilirubin Negative (Negative) Urine Urobilinogen Negative (Negative) Ur Leukocyte Esterase Negative (Negative) Urine Glucose Negative (Negative) Salicylates (<30) mg/dL Urine Opiates Screen None detected (None Detect) Acetaminophen mcg/mL Ur Barbiturates Screen None detected (None Detect) Ur Phencyclidine Scrn Presumptive positive A (None Detect) Ur Amphetamines Screen None detected (None Detect) U Benzodiazepines Scrn None detected (None Detect) Urine Cocaine Screen None detected (None Detect) U Cannabinoids Screen None detected (None Detect) Serum Alcohol (<10) mg/dL Result Diagrams: 09/09/18 12:24 09/09/18 12:24 Lab Statement: Any lab studies that have been ordered have been reviewed, and results considered in the medical decision making process. Course/Dx - Course Course Of Treatment: Patient arrives per ambulance after taking 48 Coracedin pills today. Patient is not complaining of any symptoms. States she is not suicidal. She states "I will not do this again." Denies abd pain. On physical exam, patient is is no acute distress. Tachy at 120 but otherwise VS stable. CTA. no neuro defecits noted. Patient is A & O x 3. On re-examination , patient is stable for DC at this time. - Diagnoses Provider Diagnoses: Overdose Discharge - Sign-Out/Discharge Documenting (check all that apply): Patient Departure Patient Received Moderate/Deep Sedation with Procedure: No - Discharge Plan Condition: Fair Disposition: HOME Patient Education Materials: Adult Overdose (ED) Referrals: No Primary Care Phys,NOPCP [Primary Care Provider] - Additional Instructions: Drink plenty of fluids Do not take medications to which you are not prescribed - Billing Disposition and Condition Condition: FAIR Disposition: Home
== END 2018-09-09 18:19 | disposition home or self-care (01) ==
LOC: ED 11:30
DX: T48.5X2A Poisoning by other anti-common-cold drugs, intentional self-harm, initial encounter (principal); R00.0 Tachycardia, unspecified; Y92.9 Unspecified place or not applicable; Z87.891 Personal history of nicotine dependence
CPT/HCPCS: 36415; 80053; 80307; 80320; 80329; 81003; 83605; 85025; 93005; 96360; 96361; 99282; G0480

== ENCOUNTER 2018-09-22 11:51 | Emergency (ER) | payer SELFPAY ==
[2018-09-22] MEDS ORDERED: NS 0.9% 1000 ML** 1,000 ML IV ONE ×2 (11:58→17:42)
--- NOTE | 2018-09-22 12:02 | ED ---
Substance Abuse/Use - HPI Summary HPI Summary: This patient is a 28 year old brought in by EMS with a chief complaint of overdose since one hour ago. Patient reports superficial cuts on the thighs and depression. The patient told the nurses that he tried to get therapy and couldn t get an appointment. He told EMS that he didnt take any drugs, but informed the physician that he took 48 pills of Coricidin before coming to the ED. He states that he is stressed about because he is, about to [facility]. Vitals in the room: HR 114 bpm, BP 170/113. - History Of Current Complaint Stated Complaint: MHE PER EMS Hx Obtained From: Patient, EMS Onset/Duration of Drug/ETOH Abuse: Hours - 1 Ingestion History: Type/Name Of Drug - Coricidin, Amount Ingested - 48 pills, Approximate Time Of Ingestion - one hour ago Overdose Characteristics: Oral Character: Depressed Aggravating Factor(s): Recent Stress - Allergies/Home Medications Allergies/Adverse Reactions: Allergies Allergy/AdvReac Type Severity Reaction Status Date / Time No Known Allergies Allergy Verified 09/07/18 12:05 PMH/Surg Hx/FS Hx/Imm Hx Endocrine/Hematology History: Reports: Hx Thyroid Disease - Hypothyroidism Denies: Hx Anticoagulant Therapy, Hx Blood Disorders, Hx Blood Transfusions, Hx Bone Marrow Disease, Hx Diabetes, Hx Systemic Lupus Erythematosus, Hx Sickle Cell Disease, Hx Anemia, Hx Unexplained Bleeding, Other Endocrine/Hematological Disorders Cardiovascular History: Reports: Hx Hypertension Denies: Hx Aneurysm, Hx Angina, Hx Angioplasty, Hx Auto Implanted Cardiovert Defib, Hx Cardiac Arrest, Hx Cardiomegaly, Hx Congenital Heart Disease, Hx Congestive Heart Failure, Hx Coronary Artery Disease, Hx Deep Vein Thrombosis, Hx Embolism, Hx Hypercholesterolemia, Hx Hypotension, Hx Pacemaker/ICD, Hx Peripheral Vascular Disease, Hx Rheumatic Fever, Hx Syncope, Hx Valvular Heart Disease, Other Cardiovascular Problems/Disorders Respiratory History: Reports: Hx Pneumonia, Hx Seasonal Allergies Denies: Hx Asthma, Hx Chronic Bronchitis, Hx Chronic Obstructive Pulmonary Disease (COPD), Hx Cystic Fibrosis, Hx Lung Cancer, Hx Pleural Effusion, Hx Pulmonary Edema, Hx Pulmonary Embolism, Hx Sleep Apnea, Other Respiratory Problems/Disorders GI History: Reports: Hx Ulcer Denies: Hx Cirrhosis, Hx Crohn's Disease, Hx Diverticulosis, Hx Gall Bladder Disease, Hx Gastroesophageal Reflux Disease, Hx Gastrointestinal Bleed, Hx Hiatal Hernia, Hx Irritable Bowel, Hx Jaundice, Hx Obstructive Bowel, Hx Ileostomy, Hx Pyloric Stenosis, Other GI Disorders History: Denies: Hx Acute Renal Failure, Hx Benign Prostatic Hyperplasia, Hx Chronic Renal Failure, Hx Dialysis, Hx Kidney Infection, Hx Kidney Stones, Hx Renal Disease, Other Problems/Disorders Musculoskeletal History: Denies: Hx Arthritis, Hx Back Problems, Hx Bursitis, Hx Congenital Bone Abnormalities, Hx Fibromyalgia, Hx Gout, Hx Orthopedic Injury, Hx Osteoporosis, Hx Scoliosis, Hx Tendonitis, Other Musculoskeletal History Sensory History: Denies: Hx Cataracts, Hx Contacts or Glasses, Hx Eye Injury, Hx Eye Prosthesis, Hx Glaucoma, Hx Legally Blind, Hx Macular Degeneration, Hx Vision Problem, Hx Deafness, Hx Hearing Aid, Other Sensory Impairments Opthamlomology History: Denies: Hx Cataracts, Hx Contacts or Glasses, Hx Eye Injury, Hx Eye Prosthesis, Hx Glaucoma, Hx Legally Blind, Hx Macular Degeneration, Hx Vision Problem, Other Sensory Impairments Neurological History: Reports: Hx Headaches, Hx Seizures Denies: Hx Dementia, Hx Developmental Delay, Hx Migraine, Hx Nerve Disease, Hx Spinal Cord Injury, Hx Transient Ischemic Attacks (TIA), Other Neuro Impairments/Disorders Psychiatric History: Reports: Hx Anxiety, Hx Depression, Hx Post Traumatic Stress Disorder, Hx Inpatient Treatment, Hx Community Mental Health Tx, Hx Bipolar Disorder, Hx of Violent Episodes Against Others, Hx Substance Abuse, Other Psychiatric Issues/Disorders Denies: Hx Attention Deficit Hyperactivity Disorder, Hx Eating Disorder, Hx Panic Disorder, Hx Schizophrenia, Hx Suicide Attempt - Cancer History Cancer Type, Location and Year: None reported - Surgical History Surgery Procedure, Year, and Place: none Hx Anesthesia Reactions: No - Immunization History Date of Tetanus Vaccine: Unknown Date of Influenza Vaccine: None Infectious Disease History: No Infectious Disease History: Reports: Hx Hepatitis - Hep C Denies: Hx Clostridium Difficile, Hx Human Immunodeficiency Virus (HIV), Hx of Known/Suspected MRSA, Hx Shingles, Hx Tuberculosis, Hx Known/Suspected VRE, Hx Known/Suspected VRSA, History Other Infectious Disease, Traveled Outside the [place] in Last 30 Days - Family History Known Family History: Positive: Other - cancer Negative: Renal Disease - Social History Alcohol Use: Daily Alcohol Amount: unk Hx Substance Use: Yes Substance Use Type: 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 Substance Use Comment - Amount & Last Used: 09/04, 09/05/18,09/06,09/07,09/08,09/09 2018 Coricidin overdose Hx Tobacco Use: Yes Smoking Status (MU): Former Smoker Type: Cigarettes Have You Smoked in the Last Year: Yes Review of Systems Positive: Other - superficial cuts on right leg Positive: Depressed All Other Systems Reviewed And Are Negative: Yes Physical Exam - Summary Physical Exam Summary: VITAL SIGNS: Reviewed. GENERAL: Patient is a well-developed and nourished male who is lying comfortable in the stretcher. Patient is not in any acute respiratory distress. He has delayed, soft speech. HEAD AND FACE: No signs of trauma. No ecchymosis, hematomas or skull depressions. No sinus tenderness. EYES: PERRLA, EOMI x 2, No injected conjunctiva, no nystagmus. Pupils are dilated but without ataxia. EARS: Hearing grossly intact. Ear canals and tympanic membranes are within normal limits. MOUTH: Oropharynx within normal limits. NECK: Supple, trachea is midline, no adenopathy, no JVD, no carotid bruit, no c- spine tenderness, neck with full ROM. CHEST: Symmetric, no tenderness at palpation LUNGS: Clear to auscultation bilaterally. No wheezing or crackles. CVS: Tachycardic, S1 and S2 present, no murmurs or gallops appreciated. ABDOMEN: Soft, non-tender. No signs of distention. No rebound no guarding, and no masses palpated. Bowel sounds are normal. EXTREMITIES: FROM in all major joints, no edema, no cyanosis or clubbing. NEURO: Alert and oriented x 3. No acute neurological deficits. Speech is normal and follows commands. SKIN: Dry and warm. Superficial cuts on the right leg. Triage Information Reviewed: Yes Vital Signs On Initial Exam: Initial Vitals Temp Pulse Resp BP Pulse Ox 97.2 F 113 16 170/113 99 09/22/18 11:51 09/22/18 11:51 09/22/18 11:51 09/22/18 11:51 09/22/18 11:51 Vital Signs Reviewed: Yes Diagnostics - Vital Signs Vital Signs Temp Pulse Resp BP Pulse Ox 09/22/18 11:51 97.2 F 113 16 170/113 99 - Laboratory Result Diagrams: 09/22/18 12:15 09/22/18 12:15 Lab Statement: Any lab studies that have been ordered have been reviewed, and results considered in the medical decision making process. - Radiology CXR Radiology Interpretation Completed By: Radiologist Summary of Radiographic Findings: No radiographic evidence for acute cardiopulmonary abnormality on this. portable chest x-ray. ED physician has reviewed this report - EKG 12:06 Cardiac Rate: Tachycardia - 110 bpm EKG Rhythm: Sinus Tachycardia ST Segment: Normal EKG Comparison: No Significant Change - 09/09/2018 Course/Dx - Course Assessment/Plan: This patient is a 28-year-old male who presents to the emergency department via ambulance with a chief complaint of having taken 48 tablets of coricidin. Patient also reports that he is been suffering from depression and he has suicidal ideation. Patient is tachycardic and was placed on a site monitor. Patient was given IV fluids. Test results without any significant abnormality except for potassium of 3.4, glucose of 102, urinalysis is negative for UTI. Chest x-ray impression: No radiographic evidence of acute cardio pulmonary abnormality. Discussed the case with poison control and they recommend for the patient to be except for 6 hours before the patient is medically clear for mental health evaluation. At this point the patient is resting comfortable in the stretcher and he is hemodynamically stable. At 6 PM the patient continues to be hemodynamically stable, he is alert and oriented 3. With the recommendations of poison control the patient is clear for a mental health ablation. At 7 PM the patient continues to be awaiting for mental health evaluation. The patient will be signed out by Dr. Fenton to Dr. Richardson at shift change, pending mental health evaluation. - Diagnoses Provider Diagnoses: Substance abuse, Depression, Suicidal ideation Discharge - Sign-Out/Discharge Documenting (check all that apply): Sign-Out Patient Signing out patient TO: Brayan Richardson Patient Received Moderate/Deep Sedation with Procedure: No - Discharge Plan Referrals: Gabriella Fragoso NP [Primary Care Provider] - - Attestation Statements Document Initiated by Scribe: Yes Documenting Scribe: Kalia Villatoro Provider For Whom Mario is Documenting (Include Credential): Gorge Fenton MD Scribe Attestation: Kalia Brunner, scribed for Gorge Fenton MD on 09/22/18 at 1826. Scribe Documentation Reviewed: Yes Provider Attestation: The documentation as recorded by the Kalia fournier accurately reflects the service I personally performed and the decisions made by me, Gorge Fenton MD Status of Scribe Document: Viewed
[2018-09-22 12:41] LABS: ABS Basophils 0.1 10^3/ul (0-0.2); ABS Eosinophils 0 10^3/ul (0-0.6); ABS Lymphocytes 2.5 10^3/ul (1.0-4.8); ABS Monocytes 0.7 10^3/ul (0-0.8); ABS Nucleated RBC 0 10^3/ul; Eosinophil % 0.3 %; Hematocrit 47 % (36-46); Hemoglobin 15.5 g/dL (14.0-18.0); Lymphocyte % 26.7 %; Mean Corpuscular HGB Conc 33 g/dL (31-36); Mean Corpuscular Hemoglobin 27 pg (27-31); Mean Corpuscular Volume 83 fL (80-94); Mean Platelet Volume 8.6 fL (7.4-10.4); Nucleated Red Blood Cells % 0; Platelet Count 267 10^3/uL (150-450); Red Blood Count 5.67 10^6 /uL (4.18-5.48); Red Cell Distribution Width 16 % (10.5-15); White Blood Count 9.3 10^3/uL (3.5-10.8)
[2018-09-22 12:51] LABS: ALT 35 U/L (7-52); AST 20 U/L (13-39); Albumin 5.1 g/dL (3.2-5.2); Albumin/Globulin Ratio 1.6 (1-3); Alkaline Phosphatase 66 U/L (34-104); Anion Gap 9 mmol/L (2-11); BUN/Creatinine Ratio 10.9 (8-20); Blood Urea Nitrogen 12 mg/dL (6-24); CO2 Carbon Dioxide 27 mmol/L (22-32); Chloride 102 mmol/L (101-111); Creatine Kinase 131 U/L (10-223); EGFR African American 96.4 (>60); EGFR Non-African American 79.7 (>60); Globulin 3.1 g/dL (2-4); Glucose 102 mg/dL (70-100); Potassium 3.4 mmol/L (3.5-5.0); Sodium 138 mmol/L (135-145); Total Protein 8.2 g/dL (6.4-8.9)
[2018-09-22 13:08] LABS: Acetaminophen < 15 mcg/mL; Alcohol < 10 mg/dL (<10); Salicylate < 2.50 mg/dL (<30)
[2018-09-22 13:15] LABS: Urine Appearance Clear; Urine Bilirubin Negative (Negative); Urine Blood Negative (Negative); Urine Color Straw; Urine Glucose Negative (Negative); Urine Ketones Negative (Negative); Urine Nitrite Negative (Negative); Urine Protein Negative (Negative); Urine Specific Gravity 1.003 (1.010-1.030); Urine Urobilinogen Negative (Negative)
[2018-09-22 13:23] LABS: TSH (Thyroid Stimulating Horm) 4.78 mcIU/mL (0.34-5.60)
[2018-09-22 13:40] LABS: Barbiturates Urine Screen None Detected (None Detect); Benzodiazepine Urine Screen None Detected (None Detect); Urine Cannabinoids Screen None Detected (None Detect)
[2018-09-22] MEDS ORDERED: Potassium Chlor TAB* 20 MEQ TAB.ER PO ONE (18:26)
--- NOTE | 2018-09-22 19:00 | ED ---
Progress - Progress Note Progress Note: This patient was signed out from Dr. Fenton to Dr. Richardson upon shift change at 19 :00 09/22/18 pending MHE. Per mental health lead assembler, Dr. Madrigal has cleared the patient for discharge. The patient is agreeable with this plan. Course/Dx - Course Course Of Treatment: This patient was signed out from Dr. Fenton to Dr. Richardson upon shift change at 19:00 09/22/18 pending MHE. Per mental health lead assembler, Dr. Madrigal has cleared the patient for discharge. The patient is agreeable with this plan. - Diagnoses Provider Diagnoses: Substance abuse, Depression, Suicidal ideation - Provider Notifications Discussed Care Of Patient With: Jesus Madrigal Time Discussed With Above Provider: 19:20 Instructed by Provider To: Other - Per mental health lead assembler, Dr. Madrigal has cleared the patient for discharge. Discharge - Sign-Out/Discharge Documenting (check all that apply): Patient Departure - Dc Patient Received Moderate/Deep Sedation with Procedure: No - Discharge Plan Condition: Stable Disposition: HOME Patient Education Materials: Polysubstance Abuse (ED) Referrals: Gabriella Fragoso NP [Primary Care Provider] - - Billing Disposition and Condition Condition: STABLE Disposition: Home - Attestation Statements Document Initiated by Mario: Yes Documenting Scribe: Dave Gamboa Provider For Whom Mario is Documenting (Include Credential): Brayan Richardson MD Scriblissy Attestation: Dave Brunner, scribed for Brayan Richardson MD on 09/24/18 at 1300. Scribe Documentation Reviewed: Yes Provider Attestation: The documentation as recorded by the Dave fournier accurately reflects the service I personally performed and the decisions made by me, Brayan Richardson MD Status of Scribe Document: Viewed
[2018-09-22 20:08] VITALS: BP 151/103
== END 2018-09-22 20:07 | disposition home or self-care (01) ==
LOC: ED 11:51
DX: T50.992A Poisoning by other drugs, medicaments and biological substances, intentional self-harm, initial encounter (principal); Y92.9 Unspecified place or not applicable; E03.9 Hypothyroidism, unspecified; F32.9 Major depressive disorder, single episode, unspecified; R45.851 Suicidal ideations; Z87.891 Personal history of nicotine dependence
CPT/HCPCS: 36415; 71045; 80053; 80307; 80320; 80329; 81003; 82550; 83605; 84443; 85025; 93005; 96360; 96361; 99285; A9270-GY; G0480

== ENCOUNTER 2018-09-24 10:19 | Observation (INO) | payer MEDICAID ==
[2018-09-24] MEDS ORDERED: NS 0.9% 1000 ML** 1,000 ML IV ONE ×2 (10:28→11:36)
[2018-09-24 10:56] LABS: ABS Basophils 0.1 10^3/ul (0-0.2); ABS Eosinophils 0.1 10^3/ul (0-0.6); ABS Lymphocytes 2.1 10^3/ul (1.0-4.8); ABS Monocytes 0.8 10^3/ul (0-0.8); ABS Neutrophils 5.3 10^3/ul (1.5-7.7); ABS Nucleated RBC 0 10^3/ul; Eosinophil % 0.7 %; Hematocrit 44 % (36-46); Hemoglobin 14.2 g/dL (14.0-18.0); Lymphocyte % 25.7 %; Mean Corpuscular HGB Conc 32 g/dL (31-36); Mean Corpuscular Hemoglobin 27 pg (27-31); Mean Corpuscular Volume 84 fL (80-94); Mean Platelet Volume 8.1 fL (7.4-10.4); Nucleated Red Blood Cells % 0.1; Platelet Count 269 10^3/uL (150-450); Red Blood Count 5.28 10^6 /uL (4.18-5.48); Red Cell Distribution Width 16 % (10.5-15); White Blood Count 8.3 10^3/uL (3.5-10.8)
[2018-09-24 11:14] LABS: ALT 34 U/L (7-52); AST 21 U/L (13-39); Albumin 4.5 g/dL (3.2-5.2); Albumin/Globulin Ratio 1.6 (1-3); Alkaline Phosphatase 58 U/L (34-104); Anion Gap 14 mmol/L (2-11); BUN/Creatinine Ratio 7.9 (8-20); Blood Urea Nitrogen 7 mg/dL (6-24); CO2 Carbon Dioxide 17 mmol/L (22-32); Calcium 9.3 mg/dL (8.6-10.3); Chloride 106 mmol/L (101-111); EGFR African American 123.2 (>60); EGFR Non-African American 101.8 (>60); Globulin 2.8 g/dL (2-4); Glucose 112 mg/dL (70-100); Magnesium 2.2 mg/dL (1.9-2.7); Sodium 137 mmol/L (135-145); Total Protein 7.3 g/dL (6.4-8.9)
[2018-09-24 11:16] LABS: Urine Appearance Clear; Urine Bilirubin Negative (Negative); Urine Blood Negative (Negative); Urine Color Straw; Urine Glucose Negative (Negative); Urine Ketones Negative (Negative); Urine Nitrite Negative (Negative); Urine Protein Negative (Negative); Urine Specific Gravity 1.003 (1.010-1.030); Urine Urobilinogen Negative (Negative)
--- NOTE | 2018-09-24 11:16 | ED ---
Substance Abuse/Use - HPI Summary HPI Summary: Patient is a 28 y/o male brought in by EMS who presents to the ED c/o intoxication. As per EMS, he took 4 mg Xanax, 4 unknown pills, and 2 beers at some time this morning. He states that he went out with someone this morning to drink who then offered him pills. Patient then began to feel palpitations described as his heart beating out of the chest. He also states that hes upset because he is going through a lot right now. Patient is trying to transition from male to female, and prefers to be called Siria. He states despite being suicidal in the past he does not want to , and denies any SI or HI. Patient is tachycardic on the monitor with a rate of 120 bpm. PMHx bipolar disorder, anxiety, depression, PTSD, substance abuse. - History Of Current Complaint Stated Complaint: OVERDOSE PER EMS Hx Obtained From: Patient, EMS Ingestion History: Type/Name Of Drug - Xanax, alcohol, unknown, Amount Ingested - 4 xanax, 4 unknown, 2 beers, Approximate Time Of Ingestion - this morning Overdose Characteristics: Oral Character: Frustrated Aggravating Factor(s): Recent Stress Alleviating Factor(s): Nothing Associated Signs And Symptoms: Palpitations Related Hx: Prior Drug Abuse Counseling/Admission, Prior Psych Admission - Allergies/Home Medications Allergies/Adverse Reactions: Allergies Allergy/AdvReac Type Severity Reaction Status Date / Time No Known Allergies Allergy Verified 09/07/18 12:05 PMH/Surg Hx/FS Hx/Imm Hx Endocrine/Hematology History: Reports: Hx Thyroid Disease - Hypothyroidism Denies: Hx Anticoagulant Therapy, Hx Blood Disorders, Hx Blood Transfusions, Hx Bone Marrow Disease, Hx Diabetes, Hx Systemic Lupus Erythematosus, Hx Sickle Cell Disease, Hx Anemia, Hx Unexplained Bleeding, Other Endocrine/Hematological Disorders Cardiovascular History: Reports: Hx Hypertension Denies: Hx Aneurysm, Hx Angina, Hx Angioplasty, Hx Auto Implanted Cardiovert Defib, Hx Cardiac Arrest, Hx Cardiomegaly, Hx Congenital Heart Disease, Hx Congestive Heart Failure, Hx Coronary Artery Disease, Hx Deep Vein Thrombosis, Hx Embolism, Hx Hypercholesterolemia, Hx Hypotension, Hx Pacemaker/ICD, Hx Peripheral Vascular Disease, Hx Rheumatic Fever, Hx Syncope, Hx Valvular Heart Disease, Other Cardiovascular Problems/Disorders Respiratory History: Reports: Hx Pneumonia, Hx Seasonal Allergies Denies: Hx Asthma, Hx Chronic Bronchitis, Hx Chronic Obstructive Pulmonary Disease (COPD), Hx Cystic Fibrosis, Hx Lung Cancer, Hx Pleural Effusion, Hx Pulmonary Edema, Hx Pulmonary Embolism, Hx Sleep Apnea, Other Respiratory Problems/Disorders GI History: Reports: Hx Ulcer Denies: Hx Cirrhosis, Hx Crohn's Disease, Hx Diverticulosis, Hx Gall Bladder Disease, Hx Gastroesophageal Reflux Disease, Hx Gastrointestinal Bleed, Hx Hiatal Hernia, Hx Irritable Bowel, Hx Jaundice, Hx Obstructive Bowel, Hx Ileostomy, Hx Pyloric Stenosis, Other GI Disorders History: Denies: Hx Acute Renal Failure, Hx Benign Prostatic Hyperplasia, Hx Chronic Renal Failure, Hx Dialysis, Hx Kidney Infection, Hx Kidney Stones, Hx Renal Disease, Other Problems/Disorders Musculoskeletal History: Denies: Hx Arthritis, Hx Back Problems, Hx Bursitis, Hx Congenital Bone Abnormalities, Hx Fibromyalgia, Hx Gout, Hx Orthopedic Injury, Hx Osteoporosis, Hx Scoliosis, Hx Tendonitis, Other Musculoskeletal History Sensory History: Denies: Hx Cataracts, Hx Contacts or Glasses, Hx Eye Injury, Hx Eye Prosthesis, Hx Glaucoma, Hx Legally Blind, Hx Macular Degeneration, Hx Vision Problem, Hx Deafness, Hx Hearing Aid, Other Sensory Impairments Opthamlomology History: Denies: Hx Cataracts, Hx Contacts or Glasses, Hx Eye Injury, Hx Eye Prosthesis, Hx Glaucoma, Hx Legally Blind, Hx Macular Degeneration, Hx Vision Problem, Other Sensory Impairments Neurological History: Reports: Hx Headaches, Hx Seizures Denies: Hx Dementia, Hx Developmental Delay, Hx Migraine, Hx Nerve Disease, Hx Spinal Cord Injury, Hx Transient Ischemic Attacks (TIA), Other Neuro Impairments/Disorders Psychiatric History: Reports: Hx Anxiety, Hx Depression, Hx Post Traumatic Stress Disorder, Hx Inpatient Treatment, Hx Community Mental Health Tx, Hx Bipolar Disorder, Hx of Violent Episodes Against Others, Hx Substance Abuse, Other Psychiatric Issues/Disorders Denies: Hx Attention Deficit Hyperactivity Disorder, Hx Eating Disorder, Hx Panic Disorder, Hx Schizophrenia, Hx Suicide Attempt - Cancer History Cancer Type, Location and Year: None reported - Surgical History Surgery Procedure, Year, and Place: none Hx Anesthesia Reactions: No - Immunization History Date of Tetanus Vaccine: Unknown Date of Influenza Vaccine: None Immunizations Up to Date: Yes Infectious Disease History: No Infectious Disease History: Reports: Hx Hepatitis - Hep C Denies: Hx Clostridium Difficile, Hx Human Immunodeficiency Virus (HIV), Hx of Known/Suspected MRSA, Hx Shingles, Hx Tuberculosis, Hx Known/Suspected VRE, Hx Known/Suspected VRSA, History Other Infectious Disease, Traveled Outside the [place] in Last 30 Days - Family History Known Family History: Positive: Other - cancer Negative: Renal Disease - Social History Alcohol Use: Daily Alcohol Amount: unk Hx Substance Use: Yes Substance Use Type: 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 Substance Use Comment - Amount & Last Used: 09/04, 09/05/18,09/06,09/07,09/08,09/09 2018 Coricidin overdose Hx Tobacco Use: Yes Smoking Status (MU): Former Smoker Type: Cigarettes Have You Smoked in the Last Year: Yes Review of Systems Positive: Palpitations Negative: Other - SI/HI All Other Systems Reviewed And Are Negative: Yes Physical Exam - Summary Physical Exam Summary: VITAL SIGNS: Reviewed. GENERAL: Patient is a well-developed and nourished MALE who is lying comfortable in the stretcher. Patient is not in any acute respiratory distress. HEAD AND FACE: No signs of trauma. No ecchymosis, hematomas or skull depressions. No sinus tenderness. EYES: PERRLA, EOMI x 2, No injected conjunctiva, no nystagmus. EARS: Hearing grossly intact. Ear canals and tympanic membranes are within normal limits. MOUTH: Oropharynx within normal limits. NECK: Supple, trachea is midline, no adenopathy, no JVD, no carotid bruit, no c- spine tenderness, neck with full ROM. CHEST: Symmetric, no tenderness at palpation LUNGS: Clear to auscultation bilaterally. No wheezing or crackles. CVS: Tachycardic rate but regular rhythm, S1 and S2 present, no murmurs or gallops appreciated. ABDOMEN: Soft, non-tender. No signs of distention. No rebound no guarding, and no masses palpated. Bowel sounds are normal. EXTREMITIES: FROM in all major joints, no edema, no cyanosis or clubbing. NEURO: Alert and oriented x 3. No acute neurological deficits. Speech is normal and follows commands. SKIN: Dry and warm PSYCH: Depressed, quiet, and denies any suicidal thoughts or plan. No homicidal thoughts or plan. No signs of psychosis or pressure speech. No tangential speech. Triage Information Reviewed: Yes Vital Signs On Initial Exam: Initial Vitals Temp Pulse Resp BP Pulse Ox 98.7 F 113 17 137/74 95 09/24/18 10:26 09/24/18 10:26 09/24/18 10:26 09/24/18 10:26 09/24/18 10:26 Vital Signs Reviewed: Yes Diagnostics - Vital Signs Vital Signs Temp Pulse Resp BP Pulse Ox 09/24/18 11:10 141 136/83 09/24/18 10:27 109 16 137/74 94 09/24/18 10:26 98.7 F 113 17 137/74 95 - Laboratory Lab Results: Lab Results 09/24/18 Range/Units 10:48 WBC 8.3 (3.5-10.8) 10^3/uL RBC 5.28 (4.18-5.48) 10^6 /uL Hgb 14.2 (14.0-18.0) g/dL Hct 44 (36-46) % MCV 84 (80-94) fL MCH 27 (27-31) pg MCHC 32 (31-36) g/dL RDW 16 H (10.5-15) % Plt Count 269 (150-450) 10^3/uL MPV 8.1 (7.4-10.4) fL Neut % (Auto) 63.4 % Lymph % (Auto) 25.7 % [place] % (Auto) 9.3 % Eos % (Auto) 0.7 % Baso % (Auto) 0.9 % Absolute Neuts (auto) 5.3 (1.5-7.7) 10^3/ul Absolute Lymphs (auto) 2.1 (1.0-4.8) 10^3/ul Absolute Monos (auto) 0.8 (0-0.8) 10^3/ul Absolute Eos (auto) 0.1 (0-0.6) 10^3/ul Absolute Basos (auto) 0.1 (0-0.2) 10^3/ul Absolute Nucleated RBC 0 10^3/ul Nucleated RBC % 0.1 Result Diagrams: 09/25/18 05:13 09/25/18 05:13 Lab Statement: Any lab studies that have been ordered have been reviewed, and results considered in the medical decision making process. - Radiology CXR Radiology Interpretation Completed By: Radiologist Summary of Radiographic Findings: NO ACTIVE CARDIOPULMONARY DISEASE. ED physician reviewed radiology report. - EKG 10:40 Cardiac Rate: Tachycardia - 123 bpm EKG Rhythm: Sinus Tachycardia ST Segment: Normal Summary of EKG Findings: Nl axis Re-Evaluation - Re-Evaluation First Eval Re-Evaluation Time: 13:00 Change: Worse Comment: Patients pupils are now severely dilated and he is somnolent. He is maintaining his airway. This is behavior typical of him when he takes Corcidin. Patient admits to taking Corcidin now. Course/Dx - Course Assessment/Plan: This patient is a 28-year-old male who presents to the emergency department with chief complaint of having palpitations after taking 4 tabs 1 mg Xanax, 4 tablets that he doesnt know what kind of tablets they were, and to alcoholic drinks. After the patient took these tablets the patient started having palpitations. He denies any chest pain or shortness of breath, or near-syncope. He denies any dizziness. The patient denies any suicidal or homicidal ideation. Test results without any significant abnormality except for potassium level of 3, carbon dioxide 17, anion gap 14, glucose of 112, lactic acid is 4.4, troponin 0.00. Urinalysis is negative for UTI. In the ED course the patient was given IV fluids and he was given potassium for his hyperkalemia. At approximately 1 PM and was told by the nurse that the patient is acting more confused and he is more tachycardic. The patients physical exam reveals that he is lethargic, somnolent, tachycardia and dilated pupils. I believe this because of his history of taking Coricidin. Urinalysis is negative for UTI, urine toxicology is negative. At this time I discussed my physical exam and findings with Dr. Meek from the hospitalist services who accepted the patient for admission. Patient at this time is hemodynamically stable. - Diagnoses Provider Diagnoses: Overdose - Physician Notifications Discussed Care Of Patient With: Social Work Time Discussed With Above Provider: 11:47 Instructed by Provider To: Other - Patient has an appiontment with [facility] at 15:15 today and the social work lecturer would like him to make this. At 12:45 social work cancelled the appointment. At 13:15 spoke to poison control, who said to give IV fluids and treat symptoms as they present. Observe for a minimum of 6 hours. At 13:23 Dr. Meek says that she does not yet want to admit the patient. At 15:00 Dr. Meek accepts pt for admission. - Critical Care Time Critical Care Time: 30-74 min - CCT is exclusive of separately billable procedures. Discharge - Sign-Out/Discharge Documenting (check all that apply): Patient Departure - Admit Patient Received Moderate/Deep Sedation with Procedure: No - Discharge Plan Condition: Guarded Disposition: ADMITTED TO [facility] - Billing Disposition and Condition Condition: STABLE Disposition: Admitted to [facility] - Attestation Statements Document Initiated by Scribe: Yes Documenting Scribe: Martha Novak Provider For Whom Shelleyibe is Documenting (Include Credential): Gorge Fenton MD Scribe Attestation: Martha Brunner, scribed for Gorge Fenton MD on 09/26/18 at 2119. Scribe Documentation Reviewed: Yes Provider Attestation: The documentation as recorded by the scribeMartha accurately reflects the service I personally performed and the decisions made by me, Gorge Fenton MD Status of Scribe Document: Viewed
[2018-09-24 11:17] LABS: CKMB ng/mL 2.1 ng/mL (0.6-6.3)
[2018-09-24] MEDS ORDERED: Potassium Chlor TAB* 20 MEQ TAB.ER PO ONE (11:35)
[2018-09-24 11:48] LABS: TSH (Thyroid Stimulating Horm) 3.28 mcIU/mL (0.34-5.60)
[2018-09-24 15:16] LABS: Barbiturates Urine Screen None Detected (None Detect); Benzodiazepine Urine Screen None Detected (None Detect); Urine Cannabinoids Screen None Detected (None Detect)
[2018-09-24] MEDS ORDERED: Acetaminophen TAB* 325 MG PO PRN (15:25)
[2018-09-24 16:00] LABS: Alcohol 166 mg/dL (<10); Salicylate < 2.50 mg/dL (<30)
[2018-09-24 16:23] LABS: Acetaminophen < 15 mcg/mL
[2018-09-24 16:24] LABS: BUN/Creatinine Ratio 5.6 (8-20); Calcium 8.8 mg/dL (8.6-10.3); EGFR African American 121.6 (>60); EGFR Non-African American 100.5 (>60); Potassium 3.9 mmol/L (3.5-5.0)
--- NOTE | 2018-09-24 17:29 | HP ---
HISTORY AND PHYSICAL: DATE OF ADMISSION: 09/24/18 TIME OF EVALUATION: 3:15 p.m. PRIMARY CARE PROVIDER: The patient has no primary care provider. CHIEF COMPLAINT: "I took pills to get high" as per the ED triage note. HISTORY OF PRESENT ILLNESS: Mr. Angeles is a 28-year-old male with a past medical history of Coricidin abuse, intermittent alcohol abuse, hypothyroidism, obesity, who presents to the emergency room after an overdose. The patient is known to the hospitalist service with multiple admissions to our facility, but the last one was in May 2018 for Coricidin and alcohol intoxication. At the time of my interview, the patient is sedated and unable to provide any meaningful history. He is able to tell me that he feels sad, but goes back to sleep. As per ED documentation, the patient was brought in by EMS for an accidental drug overdose. The patient states he was having fun and getting high, took 4 Xanax and 4 unknown pills and this was mixed with 2 alcoholic drinks. At that time, his pupils were described as 3 mm each and reactive. He was alert, awake , and oriented x3. This was around 10:35 in the morning. As the patient continued to be observed in the emergency room, he was witnessed standing up, then leaning to the wall. He was lowered to the floor by the ED RN. He was found to have dilated pupils and he was tachycardic. At that point, he revealed that he had taken 48 Coricidin tablets. Poison Control was contacted and recommendation was for observation for 6 hours at least, IV hydration and to monitor the patient. For that reason, the hospitalist service was consulted for admission. PAST MEDICAL HISTORY: 1. Coricidin abuse. 2. Intermittent alcohol abuse. 3. Hypothyroidism. 4. Antisocial personality traits. 5. Hepatitis C. 6. Polysubstance abuse. MEDICATIONS: None. ALLERGIES: No known drug allergies. FAMILY HISTORY: I am unable to obtain from the patient at this time, but as per records, both parents are healthy. SOCIAL HISTORY: The patient has a history of multiple Coricidin overdoses. He is unable to provide any other information at this time and he lists his aunt, Margaret Ortiz, phone number [phone], as his surrogate decision maker. REVIEW OF SYSTEMS: I am unable to obtain from the patient at this time due to his sedation. PHYSICAL EXAMINATION GENERAL: The patient is a young, obese gentleman, lying in the ED stretcher, in no acute distress. VITAL SIGNS: Temperature 98.7, heart rate is 104, respiratory rate is 18, oxygen saturation 95% on room air, blood pressure is 140/94. HEENT: Pupils are dilated, reactive to light, but sluggish. Moist mucous membranes. The patient has significant makeup on his face. CHEST: Breath sounds present bilaterally with no added sounds. CVS: Normal S1, S2. Regular rate and rhythm. ABDOMEN: Obese, soft. Bowel sounds are present. EXTREMITIES: No edema. The patient has glitter nail slovenian. NEURO: He is sedated. Opens eyes when called and can answer questions with one word, but goes right back to sleep. He can follow commands with some encouragement. DIAGNOSTIC STUDIES/LAB DATA: The patient had a CBC that showed WBC of 8.3, hemoglobin of 14.2, hematocrit of 44, platelets of 269 with 63% neutrophils. Chemistry showed a sodium of 137, potassium of 3, chloride of 106, bicarb of 17 , anion gap of 14, BUN of 7, creatinine of 0.89, glucose of 112, lactic acid is 4.4, calcium is 9.3, magnesium is 2.2. LFTs are normal. Troponin is 0. TSH is 3.2. Urinalysis was negative. Toxicology was negative. Chest x-ray showed no active cardiopulmonary disease and that is also my reading of the film. EKG done on 09/24/18 at 10:40 a.m. showed sinus tachycardia at 123 beats per minute with prolonged QTc interval. No acute ischemic changes. No significant change when compared to his prior EKG from 09/22/18. ASSESSMENT AND PLAN: Mr. Angeles is a 28-year-old male with a past medical history of Coricidin abuse, alcohol abuse, hypothyroidism, obesity, antisocial personality disorder traits with prior history of multiple overdoses, who presented to the emergency room after another one. 1. Overdose. The patient's pattern is usually of impulsivity and overdosing not with suicidal ideation, but to "get high." This appears to be the case again, but we will need to be confirmed when the patient is more alert and awake and able to provide history. He will be admitted as observation to the telemetry floor so he can sober up and he would benefit from a multidisciplinary team approach to have a definite plan when he comes to the emergency room. That appeared to be the case as the patient's last admission had been in early May. Granted after that, he had multiple visits to the emergency room with 5 visits in August alone, but we will need to clarify where he was from May until August, probably admitted to another facility. He will be monitored on telemetry. As described above, his urine toxicology is negative, but I will check acetaminophen, salicylate, and alcohol levels. 2. Anion gap metabolic acidosis. Combination of overdose and lactic acidosis. The patient is not septic at this time. He does not appear to have any signs of infection. He will receive IV hydration with lactated Ringer's and we will trend his lactic acid and metabolic acidosis. 3. Hypokalemia. We will replete his potassium. 4. DVT prophylaxis: The patient has a score of 1 on the DVT Prophylaxis Risk Assessment Guide and he will have SCDs while in bed. 5. Code status is full. TIME SPENT: Approximately 50 minutes was spent with the patient's interview, medical records review, physical examination to complete admission, more than half of this time was spent [id number] with the patient and coordination of care. [id number]/[facility] #: [id number] SOLO
[2018-09-24] MEDS ORDERED: Mouth Piece, Nicotine* 1 EACH CARTRIDGE INH PRN (22:43)
[2018-09-24] MEDS: Nicotine Inhaler* 10 MG AMP INH PRN (23:22)
[2018-09-24] MEDS: Lactated Ringers 1000 ML Bag* 1,000 ML IV SCH (23:22)
[2018-09-24] MEDS: KCL 10 MEQ/50 ML IVPREMIX* 10 MEQ/50 ML BAG IV SCH ×2 (23:29→23:30)
[2018-09-25 05:37] LABS: ABS Basophils 0.1 10^3/ul (0-0.2); ABS Eosinophils 0.2 10^3/ul (0-0.6); ABS Lymphocytes 3.4 10^3/ul (1.0-4.8); ABS Monocytes 1.1 10^3/ul (0-0.8); ABS Nucleated RBC 0 10^3/ul; Eosinophil % 1.6 %; Hematocrit 41 % (36-46); Hemoglobin 13.3 g/dL (14.0-18.0); Lymphocyte % 34.9 %; Mean Corpuscular HGB Conc 33 g/dL (31-36); Mean Corpuscular Hemoglobin 27 pg (27-31); Mean Corpuscular Volume 83 fL (80-94); Mean Platelet Volume 8.3 fL (7.4-10.4); Nucleated Red Blood Cells % 0.1; Platelet Count 247 10^3/uL (150-450); Red Blood Count 4.89 10^6 /uL (4.18-5.48); Red Cell Distribution Width 16 % (10.5-15); White Blood Count 9.7 10^3/uL (3.5-10.8)
[2018-09-25 05:51] LABS: Calcium 9.2 mg/dL (8.6-10.3); Potassium 3.3 mmol/L (3.5-5.0)
[2018-09-25 05:57] LABS: BUN/Creatinine Ratio 8.9 (8-20); EGFR African American 121.6 (>60); EGFR Non-African American 100.5 (>60)
[2018-09-25] MEDS: Lactated Ringers 1000 ML Bag* 1,000 ML IV SCH (06:10)
[2018-09-25 07:42] VITALS: BP 113/65
[2018-09-25] MEDS ORDERED: Potassium Chlor TAB* 20 MEQ TAB.ER PO ONE (07:44)
[2018-09-25] MEDS: Nicotine Inhaler* 10 MG AMP INH PRN ×2 (09:02→11:15)
--- NOTE | 2018-09-25 09:59 | CONSULT ---
Consult Consult: Psychiatry asked to see patient due to overdose on recreational substances. Patient reports drinking alcohol, being given another person's benzodiazepine and 48 coricidin tabs. 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 He states he is hoping to attend a court hearing tomorrow for lorena aguirre and ask for the maximum sentence of 1 year. He eludes to working with [facility] to establish providers for transsexualism. He goes on to describe a "wellness action plan" in regards to harm reduction. He denies SI or passive wish. He denies the overdose was a suicide attempt. Welding Robot Operator inquires what his plan this evening. He states he intends to return to [facility] rescue mission. In regards to abstaining from substances, he intends to "white knuckle it." Welding Robot Operator informs him of various 12-step meetings and we discuss those that he has not attended. I review INTEGRATED SPECIALIST and patient was prescribed a 5-day supply of diazepam by psychiatrist in [place], Dr Regis Contreras. PAST PSYCHIATRIC HISTORY: Patient has a significant history of ED visits and ICU /BSU admissions and various hospitals in [place]. He has multiple failed referrals to substance use treatment, and he has a history of requesting admission with complaints of AH and suicidality in the setting of Coricidin use. He also has a history of recanting mental health symptoms and identifying that he said these things to be admitted to the hospital. Patient has been hospitalized for longer term at [facility]. He has been treated several times for rhabdomyolysis directly r/t substance use. He has been treated at [facility], [facility] and [facility]. He has been diagnosed in the past with opiate dependence, Coricidin dependence, substance-induced mood disorder, malingering and unspecified personality d/o. Past medication trials include, but are not limited to: aripiprazole, risperidone, olanzapine, sertraline, citalopram, fluoxetine, trazodone, buproprion, naltrexone, suboxone, Topamax, prazosin, lithium, Antabuse, benzodiazepines and stimulants. PAST MEDICAL HISTORY: Remarkable for hepatitis C, hypothyroidism. PAST SUICIDE AND HOMICIDE HISTORY: The patient has a history of suicide attempts and prior suicidal behaviors. He has been admitted to the ICU several times after accidental drug overdose. LEGAL HISTORY: The patient has a history of arrest on charges for petit larceny and has served time in senior living. He is pending court for current petit larceny charge. There is no noted history of violence or aggression. FAMILY HISTORY: The patient denies. MSE: The patient is an obese, white male, who appears stated age. He is lying in bed, dressed in the hospital gown. He is wearing new glasses, is poorly groomed with a full sarkar. No psychomotor abnormal activity is noted. He is A+ Ox3. Eye contact is good. Mood is euthymic. Affect is constricted. Thought process is linear and goal directed. The patient denies auditory or visual hallucinations. He denies delusions. He denies SI or passive wish. Insight and judgment are poor. Impulse control is tenuous. Fund of knowledge is adequate. IMPRESSION/RECOMMENDATIONS: Fernie is a 28yo white male with history of polysubstance use disorder who presented to ED via EMS with reports of taking 48 tabs of Coricidin cold tablets , alcohol and alprazolam. 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 He has an extensive history of not following through on recommendations and outpatient non-adherence. [facility]. He does not meet criteria for involuntary admission to [facility]. He remains on constant observation until he is discharged. I have verified his [facility]t [facility] at 10:45am. I recommend procuring an appt with his primary care provider, as well.
--- NOTE | 2018-09-26 00:36 | DS ---
CC: Gabriella Fragoso NP * DISCHARGE SUMMARY: DATE OF ADMISSION: 09/24/18 DATE OF DISCHARGE: 09/25/18 PRIMARY CARE PROVIDER: Gabriella Fragoso NP at [facility]. DISCHARGE DIAGNOSIS: Multi-drug overdose. SECONDARY DIAGNOSES: 1. Coricidin abuse. 2. Intermittent alcohol abuse. 3. Hypothyroidism. 4. Antisocial personality traits. 5. Hepatitis C. 6. Polysubstance abuse. 7. Substance-induced mood disorder. 8. Unspecified personality disorder. MEDICATIONS AT THE TIME OF DISCHARGE: None. HOSPITAL COURSE: Mr. Angeles is a 28-year-old male with a past medical history as stated above that presented to the emergency room after an overdose. The patient took some alcohol, 4 Xanax pills, and 4 unknown pills on top of 48 Coricidin tablets. He was admitted for further evaluation and detox, and this morning the patient is sober with resolution of his tachycardia and other symptoms. He was seen in consultation by Psychiatry and it was felt that admission to [facility] would not be indicated and he does not meet criteria for involuntary admission. The case was discussed with his primary care provider, Gabriella Fragoso NP and also with his [facility] manager of case management, Emili Mehta, as well as his [facility] older adult social work specialist, Marcelina Landry. Tentative plan is for discharge to [facility] today. At 8:45, he will meet Ms. Mehta to go to his court appointment at 9 a.m. From there, he will go to his appointment at the [facility] at 10: 45 a.m. and from that appointment, he will go to see his primary care provider at [facility] at noon. The patient verbalized understanding of the plan. He feels well at this time, back to his usual self, and endorses that he did not have any suicidal ideation. He just wanted "to get high." The patient is medically stable for discharge at this time. The patient wants to work with [facility] to establish provider care for his transsexualism and he endorses that he now wants to be called by Siria. PHYSICAL EXAMINATION: Vital Signs: Temperature 97.7, heart rate 86, respiratory rate 18, oxygen saturation 98% on room air, blood pressure 113/65. General: The patient is a young obese gentleman, lying in bed, in no acute distress. CVS: Normal S1, S2. Regular rate and rhythm. Chest: Breath sounds bilaterally with no added sounds. Abdomen: Obese, soft. Bowel sounds present. Neuro: He is alert and oriented x3. Able to move all 4 extremities. DIET: Regular diet. ACTIVITIES: As tolerated. DISPOSITION: To home. STATUS WHILE IN THE HOSPITAL: Observation. CONDITION AT THE TIME OF DISCHARGE: Guarded as the patient is a very high risk for recurrence. Please note that at this point, his health insurance is limited, so he does not have any coverage for medications, but his older adult social work specialist, Marcelina Landry, is working on it and as soon as it is available, his PCP will be able to prescribe his medications again including his thyroid hormones. Of note is that his TSH is normal at this time at 3.28. Please keep in mind, this is a summarized version of this patient's complicated medical history and brief hospital stay. If you need more information, please feel free to call me at [phone] or please obtain the full medical records. TIME SPENT: Approximately 50 minutes were spent to complete this discharge. [id number]/[facility] #: [id number] [facility] SYSTEMNikki
== END 2018-09-25 12:00 | disposition home or self-care (01) | DRG 918 ==
LOC: ED 10:19 → MEDTELE 15:19 → INTOOBSV 15:19
PROVIDERS: ADMIT Internal Medicine; ATTEND Internal Medicine
DX: T42.4X1A Poisoning by benzodiazepines, accidental (unintentional), initial encounter (principal); E87.2 Acidosis; T51.91XA Toxic effect of unspecified alcohol, accidental (unintentional), initial encounter; F31.9 Bipolar disorder, unspecified; F43.10 Post-traumatic stress disorder, unspecified; F41.9 Anxiety disorder, unspecified; E03.9 Hypothyroidism, unspecified; I10 Essential (primary) hypertension; E87.6 Hypokalemia; J30.2 Other seasonal allergic rhinitis; B19.20 Unspecified viral hepatitis C without hepatic coma; F19.10 Other psychoactive substance abuse, uncomplicated; R60.9 Edema, unspecified; T50.991A Poisoning by other drugs, medicaments and biological substances, accidental (unintentional), initial encounter; F10.10 Alcohol abuse, uncomplicated; Y90.9 Presence of alcohol in blood, level not specified; R00.0 Tachycardia, unspecified; E66.9 Obesity, unspecified; Z68.34 Body mass index [BMI] 34.0-34.9, adult; Z72.89 Other problems related to lifestyle; Y92.009 Unspecified place in unspecified non-institutional (private) residence as the place of occurrence of the external cause; Z87.891 Personal history of nicotine dependence; Z91.5 Personal history of self-harm
CPT/HCPCS: 36415; 71045; 80048; 80053; 80307; 80320; 80329; 81003; 82553; 83605; 83735; 83880; 84443; 84484; 85025; 93005; 96360; 99284; A9270-GY; G0378; G0480

== ENCOUNTER 2018-09-25 15:31 | Emergency (ER) | payer MEDICAID ==
--- NOTE | 2018-09-25 15:51 | ED ---
Substance Abuse/Use - HPI Summary HPI Summary: LEVEL 5 CAVEAT: HPI LIMITED DUE TO PT CONDITION, SOMNOLENT, UNCOOPERATIVE A 28 y/o M brought in by ambulance presents to ED s/p suspected medication overdose. Per EMS, pt was awake at the rescue missions when he suddenly slumped over in his chair, he told people there he took 3 Xanax; he walked to the stretcher. Pt released from [facility] this morning after overdose. - History Of Current Complaint Stated Complaint: OVERDOSE PER EMS Time Seen by Provider: 09/25/18 15:47 Hx Obtained From: EMS Ingestion History: Type/Name Of Drug - Xanax Overdose Characteristics: Oral - Allergies/Home Medications Allergies/Adverse Reactions: Allergies Allergy/AdvReac Type Severity Reaction Status Date / Time No Known Allergies Allergy Verified 09/07/18 12:05 PMH/Surg Hx/FS Hx/Imm Hx Previously Healthy: No Endocrine/Hematology History: Reports: Hx Thyroid Disease - Hypothyroidism Denies: Hx Anticoagulant Therapy, Hx Blood Disorders, Hx Blood Transfusions, Hx Bone Marrow Disease, Hx Diabetes, Hx Systemic Lupus Erythematosus, Hx Sickle Cell Disease, Hx Anemia, Hx Unexplained Bleeding, Other Endocrine/Hematological Disorders Cardiovascular History: Reports: Hx Hypertension Denies: Hx Aneurysm, Hx Angina, Hx Angioplasty, Hx Auto Implanted Cardiovert Defib, Hx Cardiac Arrest, Hx Cardiomegaly, Hx Congenital Heart Disease, Hx Congestive Heart Failure, Hx Coronary Artery Disease, Hx Deep Vein Thrombosis, Hx Embolism, Hx Hypercholesterolemia, Hx Hypotension, Hx Pacemaker/ICD, Hx Peripheral Vascular Disease, Hx Rheumatic Fever, Hx Syncope, Hx Valvular Heart Disease, Other Cardiovascular Problems/Disorders Respiratory History: Reports: Hx Pneumonia, Hx Seasonal Allergies Denies: Hx Asthma, Hx Chronic Bronchitis, Hx Chronic Obstructive Pulmonary Disease (COPD), Hx Cystic Fibrosis, Hx Lung Cancer, Hx Pleural Effusion, Hx Pulmonary Edema, Hx Pulmonary Embolism, Hx Sleep Apnea, Other Respiratory Problems/Disorders GI History: Reports: Hx Ulcer Denies: Hx Cirrhosis, Hx Crohn's Disease, Hx Diverticulosis, Hx Gall Bladder Disease, Hx Gastroesophageal Reflux Disease, Hx Gastrointestinal Bleed, Hx Hiatal Hernia, Hx Irritable Bowel, Hx Jaundice, Hx Obstructive Bowel, Hx Ileostomy, Hx Pyloric Stenosis, Other GI Disorders History: Denies: Hx Acute Renal Failure, Hx Benign Prostatic Hyperplasia, Hx Chronic Renal Failure, Hx Dialysis, Hx Kidney Infection, Hx Kidney Stones, Hx Renal Disease, Other Problems/Disorders Musculoskeletal History: Denies: Hx Arthritis, Hx Back Problems, Hx Bursitis, Hx Congenital Bone Abnormalities, Hx Fibromyalgia, Hx Gout, Hx Orthopedic Injury, Hx Osteoporosis, Hx Scoliosis, Hx Tendonitis, Other Musculoskeletal History Sensory History: Reports: Hx Contacts or Glasses - glasses not with patient Denies: Hx Cataracts, Hx Eye Injury, Hx Eye Prosthesis, Hx Glaucoma, Hx Legally Blind, Hx Macular Degeneration, Hx Vision Problem, Hx Deafness, Hx Hearing Aid, Other Sensory Impairments Opthamlomology History: Reports: Hx Contacts or Glasses - glasses not with patient Denies: Hx Cataracts, Hx Eye Injury, Hx Eye Prosthesis, Hx Glaucoma, Hx Legally Blind, Hx Macular Degeneration, Hx Vision Problem, Other Sensory Impairments Neurological History: Reports: Hx Headaches, Hx Seizures Denies: Hx Dementia, Hx Developmental Delay, Hx Migraine, Hx Nerve Disease, Hx Spinal Cord Injury, Hx Transient Ischemic Attacks (TIA), Other Neuro Impairments/Disorders Psychiatric History: Reports: Hx Anxiety, Hx Depression, Hx Post Traumatic Stress Disorder, Hx Inpatient Treatment, Hx Community Mental Health Tx, Hx Bipolar Disorder, Hx of Violent Episodes Against Others, Hx Substance Abuse, Other Psychiatric Issues/Disorders Denies: Hx Attention Deficit Hyperactivity Disorder, Hx Eating Disorder, Hx Panic Disorder, Hx Schizophrenia, Hx Suicide Attempt - Cancer History Cancer Type, Location and Year: None reported - Surgical History Surgery Procedure, Year, and Place: none Hx Anesthesia Reactions: No - Immunization History Date of Tetanus Vaccine: Unknown Date of Influenza Vaccine: None Infectious Disease History: Reports: Hx Hepatitis - Hep C Denies: Hx Clostridium Difficile, Hx Human Immunodeficiency Virus (HIV), Hx of Known/Suspected MRSA, Hx Shingles, Hx Tuberculosis, Hx Known/Suspected VRE, Hx Known/Suspected VRSA, History Other Infectious Disease, Traveled Outside the [place] in Last 30 Days - Family History Known Family History: Positive: Other - cancer Negative: Renal Disease - Social History Occupation: Unemployed Lives: Alone Alcohol Use: Daily Alcohol Amount: unk Hx Substance Use: Yes Substance Use Type: 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 Substance Use Comment - Amount & Last Used: 09/04, 09/05/18,09/06,09/07,09/08,09/09 2018 Coricidin overdose Hx Tobacco Use: Yes Smoking Status (MU): Former Smoker Type: Cigarettes Have You Smoked in the Last Year: Yes Review of Systems - ROS Summary Review of Systems Summary: LEVEL 5 CAVEAT: ROS LIMITED DUE TO PT CONDITION, SOMNOLENT, UNCOOPERATIVE Positive: Other - pos: somnolent . Negative: Fever All Other Systems Reviewed And Are Negative: No Physical Exam - Summary Physical Exam Summary: Appearance: The patient is obese, in no acute distress and in no acute pain. Pt is stuporous at bedside. Skin: The skin is warm and dry and skin color reflects adequate perfusion. HEENT: The head is normocephalic and atraumatic. The pupils are equal and reactive. The conjunctivae are clear and without drainage. Nares are patent and without drainage. Mouth reveals moist mucous membranes and the throat is without erythema and exudate. The external ears are intact. The ear canals are patent and without drainage. The tympanic membranes are intact. Neck: the neck is supple with full range of motion and non-tender. There are no carotid bruits. There is no neck vein distension. Respiratory: Chest is non-tender. Lungs are clear to auscultation and breath sounds are symmetrical and equal. Cardiovascular: Heart is regular rate and rhythm. There is no murmur or rub auscultated. There is no peripheral edema and pulses are symmetrical and equal. Abdomen: The abdomen is soft and non-tender. There are normal bowel sounds heard in all four quadrants and there is no organomegaly palpated. Musculoskeletal: There is no back tenderness noted. Extremities are non-tender with full range of motion. There is good capillary refill. There is no peripheral edema or calf tenderness elicited. Neurological: Patient is stuporous at bedside. Patient opens eyes to noxious stimuli. The patient has symmetrical motor strength in all four extremities. Cranial nerves are grossly intact. Deep tendon reflexes are symmetrical and equal in all four extremities. Psychiatric: The patient has an appropriate affect and does not exhibit any anxiety or depression. Triage Information Reviewed: Yes Vital Signs Reviewed: Yes Diagnostics - Laboratory Result Diagrams: 09/25/18 16:42 09/25/18 16:42 Lab Statement: Any lab studies that have been ordered have been reviewed, and results considered in the medical decision making process. - EKG 1625 Cardiac Rate: NL - 96 bpm EKG Rhythm: Sinus Rhythm ST Segment: Normal Ectopy: None EKG Comparison: No Significant Change - From EKG on 09/24/18. Summary of EKG Findings: No STEMI. Re-Evaluation - Re-Evaluation 1 Re-Evaluation Time: 17:14 Change: Worse Comment: Pt is more stuporous. Pupils are 4-5 mm. HR is 98 bpm. 2 Re-Evaluation Time: 21:18 Change: Unchanged Comment: Sleeping, awakes to voice. Says he does not have complaints. Course/Dx - Course Course Of Treatment: Siria presented to the hospital just hours after discharge. She was stuporous and apparently admitted to taking some Xanax. She was kept safe and her alcohol level was found to be elevated. She was very mildly tachycardic but did not have dilated pupils and I have less suspicion for Coricidin overdose as is her want. At this point we're observing her. Her caser Emili was contacted and will come to the emergency department to escort ambulate to her 3 appointments that she has tomorrow: A court appearance , a case management social worker conference and an appointment with her PCP at [facility]. - Diagnoses Provider Diagnoses: Hx of drug overdose, Alcohol intoxication Discharge - Sign-Out/Discharge Documenting (check all that apply): Sign-Out Patient Signing out patient TO: Twan Villarreal - pending sobriety/social work consult Patient Received Moderate/Deep Sedation with Procedure: No - Discharge Plan Referrals: Gabriella Fragoso RAIL CAR WELDER [Primary Care Provider] - - Attestation Statements Document Initiated by Mario: Yes Documenting Scribe: Randa Bell Provider For Whom Mario is Documenting (Include Credential): Dr. Brayan Haider MD Scribe Attestation: I, Randa Bell scribed for Dr. Brayan Haider MD on 09/25/18 at 2149. Scribe Documentation Reviewed: Yes Provider Attestation: The documentation as recorded by the Randa fournier accurately reflects the service I personally performed and the decisions made by me, Dr. Brayan Haider MD Status of Scribe Document: Viewed
[2018-09-25 16:50] LABS: ABS Basophils 0.1 10^3/ul (0-0.2); ABS Eosinophils 0.1 10^3/ul (0-0.6); ABS Lymphocytes 2.8 10^3/ul (1.0-4.8); ABS Monocytes 0.7 10^3/ul (0-0.8); ABS Neutrophils 6.1 10^3/ul (1.5-7.7); ABS Nucleated RBC 0 10^3/ul; Eosinophil % 0.9 %; Hematocrit 42 % (36-46); Hemoglobin 13.7 g/dL (14.0-18.0); Lymphocyte % 29.1 %; Mean Corpuscular HGB Conc 33 g/dL (31-36); Mean Corpuscular Hemoglobin 27 pg (27-31); Mean Corpuscular Volume 83 fL (80-94); Mean Platelet Volume 7.8 fL (7.4-10.4); Nucleated Red Blood Cells % 0.1; Platelet Count 272 10^3/uL (150-450); Red Cell Distribution Width 16 % (10.5-15); White Blood Count 9.8 10^3/uL (3.5-10.8)
[2018-09-25 17:07] LABS: ALT 26 U/L (7-52); AST 16 U/L (13-39); Albumin 4.3 g/dL (3.2-5.2); Albumin/Globulin Ratio 1.6 (1-3); Alkaline Phosphatase 56 U/L (34-104); Anion Gap 11 mmol/L (2-11); Blood Urea Nitrogen 8 mg/dL (6-24); CO2 Carbon Dioxide 21 mmol/L (22-32); Calcium 9.6 mg/dL (8.6-10.3); Chloride 105 mmol/L (101-111); Creatine Kinase 100 U/L (10-223); EGFR African American 123.2 (>60); EGFR Non-African American 101.8 (>60); Globulin 2.7 g/dL (2-4); Glucose 131 mg/dL (70-100); Potassium 3.4 mmol/L (3.5-5.0); Sodium 137 mmol/L (135-145)
[2018-09-25 17:08] LABS: Alcohol 221 mg/dL (<10); Salicylate < 2.50 mg/dL (<30)
[2018-09-25 17:31] LABS: Acetaminophen < 10 mcg/mL
[2018-09-25 17:32] LABS: Urine Appearance Clear; Urine Bilirubin Negative (Negative); Urine Blood Negative (Negative); Urine Color Straw; Urine Glucose Negative (Negative); Urine Ketones Negative (Negative); Urine Nitrite Negative (Negative); Urine Protein Negative (Negative); Urine Specific Gravity 1.002 (1.010-1.030); Urine Urobilinogen Negative (Negative)
[2018-09-25 17:48] LABS: Barbiturates Urine Screen None Detected (None Detect); Benzodiazepine Urine Screen None Detected (None Detect); Urine Cannabinoids Screen None Detected (None Detect)
[2018-09-25] MEDS ORDERED: NS 0.9% 1000 ML** 1,000 ML IV ONE (21:16)
--- NOTE | 2018-09-26 05:34 | ED ---
Progress - Progress Note Progress Note: This patient was signed out from Dr. Haider to Dr. Villarreal upon shift change, pending machine adjuster leader case trim consult. This patient will be signed out to Dr. Richardson upon shift change, pending machine adjuster leader case trim consult. Re-Evaluation - Re-Evaluation 1 Re-Evaluation Time: 17:14 Change: Worse Comment: Pt is more stuporous. Pupils are 4-5 mm. HR is 98 bpm. 2 Re-Evaluation Time: 21:18 Change: Unchanged Comment: Sleeping, awakes to voice. Says he does not have complaints. Course/Dx - Course Course Of Treatment: This patient was signed out from Dr. Haider to Dr. Villarreal upon shift change, pending machine adjuster leader case trim consult. This patient will be signed out to Dr. Richardson upon shift change, pending machine adjuster leader case trim consult. - Diagnoses Provider Diagnoses: Hx of drug overdose, Alcohol intoxication Discharge - Sign-Out/Discharge Documenting (check all that apply): Sign-Out Patient - pending social work consult Signing out patient TO: Brayan Dylan Patient Received Moderate/Deep Sedation with Procedure: No - Discharge Plan Condition: Stable Referrals: Gabriella Fragoso CD REACTOR OPERATOR HEAD [Primary Care Provider] - - Billing Disposition and Condition Condition: STABLE - Attestation Statements Document Initiated by Scribe: Yes Documenting Scribe: Vasu Jovel Provider For Whom Mario is Documenting (Include Credential): Twan Villarreal MD Scribe Attestation: Vasu Brunner, scribed for Twan Villarreal MD on 09/26/18 at 0623. Scribe Documentation Reviewed: Yes Provider Attestation: The documentation as recorded by the Vasu fournier accurately reflects the service I personally performed and the decisions made by Trino mayen MD Status of Scribe Document: Viewed
--- NOTE | 2018-09-26 07:07 | ED ---
Progress - Progress Note Progress Note: This patient was signed out from Dr. Villarreal to Dr. Richardosn upon shift change, pending case sealer consult. Re-Evaluation - Re-Evaluation 1 Re-Evaluation Time: 17:14 Change: Worse Comment: Pt is more stuporous. Pupils are 4-5 mm. HR is 98 bpm. 2 Re-Evaluation Time: 21:18 Change: Unchanged Comment: Sleeping, awakes to voice. Says he does not have complaints. Course/Dx - Course Course Of Treatment: This patient was signed out from Dr. Villarreal to Dr. Richardson upon shift change pending social sciences department chair consult. The pt will be discharged with his social sciences department chair upon arrival. - Diagnoses Provider Diagnoses: Hx of drug overdose, Alcohol intoxication Discharge - Sign-Out/Discharge Documenting (check all that apply): Patient Departure, Receiving Sign-Out Receiving patient FROM: Twan Villarreal Patient Received Moderate/Deep Sedation with Procedure: No - Discharge Plan Condition: Improved Disposition: HOME Patient Education Materials: Polysubstance Abuse (ED) Referrals: Gabriella Fragoso FLOOR PERSON [Primary Care Provider] - If Needed - Billing Disposition and Condition Condition: IMPROVED Disposition: Home - Attestation Statements Document Initiated by Shelleyibe: Yes Documenting Scribe: Polly Boateng Provider For Whom Shelleyiblissy is Documenting (Include Credential): Brayan Richardson MD. Scribe Attestation: Polly Brunner scribed for Brayan Richardson MD. on 09/26/18 at 0813. Scribe Documentation Reviewed: Yes Provider Attestation: The documentation as recorded by the [email or web address] accurately reflects the service I personally performed and the decisions made by , Brayan Richardson MD. Status of Scribe Document: Viewed
[2018-09-26 08:20] VITALS: BP 110/70
== END 2018-09-26 08:18 | disposition home or self-care (01) ==
LOC: ED 15:31
DX: F10.129 Alcohol abuse with intoxication, unspecified (principal); Y90.7 Blood alcohol level of 200-239 mg/100 ml; R94.31 Abnormal electrocardiogram [ECG] [EKG]; I10 Essential (primary) hypertension; E03.9 Hypothyroidism, unspecified; E66.9 Obesity, unspecified; F19.90 Other psychoactive substance use, unspecified, uncomplicated; Z68.35 Body mass index [BMI] 35.0-35.9, adult; Z87.01 Personal history of pneumonia (recurrent); Z87.891 Personal history of nicotine dependence
CPT/HCPCS: 36415; 80053; 80307; 80320; 80329; 81003; 82550; 83605; 85025; 93005; 96360; 96361; 99285; G0480

== ENCOUNTER → 2018-09-28 15:37 | Emergency (ER) | payer MEDICAID ==
[~2018-09-28 15:37] MED LIST: NS 0.9% 1000 ML** 1,000 ML IV ONE
--- NOTE | 2018-09-28 15:52 | ED ---
Substance Abuse/Use - HPI Summary HPI Summary: 28 year old M brought in by [facility] ambulance to [facility] complains of substance use per EMS since this morning. Symptoms aggravated by nothing. Symptoms alleviated by nothing. Patient admits to drinking ETOH today. He reports drinking 3 Natty Daddys and 2 Molson ices. He denies taking drugs. He denies pain. Patient has hx polysubstance abuse, particularly Coricidin. Patient comes to ED often for substance abuse although he does not present today with his usual symptoms. Patient went to [facility] today who called EMS. LEVEL 5 CAVEAT: HPI is limited because patient is intoxicated and unable to provide much history - History Of Current Complaint Stated Complaint: ETOH PER EMS Time Seen by Provider: 09/28/18 15:43 Hx Obtained From: Patient, EMS Aggravating Factor(s): Nothing Alleviating Factor(s): Nothing - Allergies/Home Medications Allergies/Adverse Reactions: Allergies Allergy/AdvReac Type Severity Reaction Status Date / Time No Known Allergies Allergy Verified 09/07/18 12:05 PMH/Surg Hx/FS Hx/Imm Hx Previously Healthy: No Endocrine/Hematology History: Reports: Hx Thyroid Disease - Hypothyroidism Denies: Hx Anticoagulant Therapy, Hx Blood Disorders, Hx Blood Transfusions, Hx Bone Marrow Disease, Hx Diabetes, Hx Systemic Lupus Erythematosus, Hx Sickle Cell Disease, Hx Anemia, Hx Unexplained Bleeding, Other Endocrine/Hematological Disorders Cardiovascular History: Reports: Hx Hypertension Denies: Hx Aneurysm, Hx Angina, Hx Angioplasty, Hx Auto Implanted Cardiovert Defib, Hx Cardiac Arrest, Hx Cardiomegaly, Hx Congenital Heart Disease, Hx Congestive Heart Failure, Hx Coronary Artery Disease, Hx Deep Vein Thrombosis, Hx Embolism, Hx Hypercholesterolemia, Hx Hypotension, Hx Pacemaker/ICD, Hx Peripheral Vascular Disease, Hx Rheumatic Fever, Hx Syncope, Hx Valvular Heart Disease, Other Cardiovascular Problems/Disorders Respiratory History: Reports: Hx Pneumonia, Hx Seasonal Allergies Denies: Hx Asthma, Hx Chronic Bronchitis, Hx Chronic Obstructive Pulmonary Disease (COPD), Hx Cystic Fibrosis, Hx Lung Cancer, Hx Pleural Effusion, Hx Pulmonary Edema, Hx Pulmonary Embolism, Hx Sleep Apnea, Other Respiratory Problems/Disorders GI History: Reports: Hx Ulcer Denies: Hx Cirrhosis, Hx Crohn's Disease, Hx Diverticulosis, Hx Gall Bladder Disease, Hx Gastroesophageal Reflux Disease, Hx Gastrointestinal Bleed, Hx Hiatal Hernia, Hx Irritable Bowel, Hx Jaundice, Hx Obstructive Bowel, Hx Ileostomy, Hx Pyloric Stenosis, Other GI Disorders History: Denies: Hx Acute Renal Failure, Hx Benign Prostatic Hyperplasia, Hx Chronic Renal Failure, Hx Dialysis, Hx Kidney Infection, Hx Kidney Stones, Hx Renal Disease, Other Problems/Disorders Musculoskeletal History: Denies: Hx Arthritis, Hx Back Problems, Hx Bursitis, Hx Congenital Bone Abnormalities, Hx Fibromyalgia, Hx Gout, Hx Orthopedic Injury, Hx Osteoporosis, Hx Scoliosis, Hx Tendonitis, Other Musculoskeletal History Sensory History: Reports: Hx Contacts or Glasses - glasses not with patient Denies: Hx Cataracts, Hx Eye Injury, Hx Eye Prosthesis, Hx Glaucoma, Hx Legally Blind, Hx Macular Degeneration, Hx Vision Problem, Hx Deafness, Hx Hearing Aid, Other Sensory Impairments Opthamlomology History: Reports: Hx Contacts or Glasses - glasses not with patient Denies: Hx Cataracts, Hx Eye Injury, Hx Eye Prosthesis, Hx Glaucoma, Hx Legally Blind, Hx Macular Degeneration, Hx Vision Problem, Other Sensory Impairments Neurological History: Reports: Hx Headaches, Hx Seizures Denies: Hx Dementia, Hx Developmental Delay, Hx Migraine, Hx Nerve Disease, Hx Spinal Cord Injury, Hx Transient Ischemic Attacks (TIA), Other Neuro Impairments/Disorders Psychiatric History: Reports: Hx Anxiety, Hx Depression, Hx Post Traumatic Stress Disorder, Hx Inpatient Treatment, Hx Community Mental Health Tx, Hx Bipolar Disorder, Hx of Violent Episodes Against Others, Hx Substance Abuse, Other Psychiatric Issues/Disorders Denies: Hx Attention Deficit Hyperactivity Disorder, Hx Eating Disorder, Hx Panic Disorder, Hx Schizophrenia, Hx Suicide Attempt - Cancer History Cancer Type, Location and Year: None reported - Surgical History Surgery Procedure, Year, and Place: none Hx Anesthesia Reactions: No - Immunization History Date of Tetanus Vaccine: Unknown Date of Influenza Vaccine: None Infectious Disease History: Reports: Hx Hepatitis - Hep C Denies: Hx Clostridium Difficile, Hx Human Immunodeficiency Virus (HIV), Hx of Known/Suspected MRSA, Hx Shingles, Hx Tuberculosis, Hx Known/Suspected VRE, Hx Known/Suspected VRSA, History Other Infectious Disease - Family History Known Family History: Positive: Other - cancer Negative: Renal Disease - Social History Alcohol Use: Daily Alcohol Amount: unk Hx Substance Use: Yes Substance Use Type: 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 Substance Use Comment - Amount & Last Used: 09/04, 09/05/18,09/06,09/07,09/08,09/09 2018 Coricidin overdose Hx Tobacco Use: Yes Smoking Status (MU): Former Smoker Type: Cigarettes Have You Smoked in the Last Year: Yes Review of Systems - ROS Summary Review of Systems Summary: LEVEL 5 CAVEAT: ROS is limited because patient is intoxicated and not answering questions Positive: Other - substance use, ETOH All Other Systems Reviewed And Are Negative: No Physical Exam - Summary Physical Exam Summary: VITAL SIGNS: Reviewed. GENERAL: Patient is an obese MALE who seems to be intoxicated with ETOH on his breath HEAD AND FACE: No signs of trauma. No ecchymosis, hematomas or skull depressions. No sinus tenderness. EYES: PERRLA, EOMI x 2, No injected conjunctiva, no nystagmus. EARS: Hearing grossly intact. Ear canals and tympanic membranes are within normal limits. MOUTH: Oropharynx within normal limits. NECK: Supple, trachea is midline, no adenopathy, no JVD, no carotid bruit, no c- spine tenderness, neck with full ROM. CHEST: Symmetric, no tenderness at palpation LUNGS: Clear to auscultation bilaterally. No wheezing or crackles. CVS: Regular rate and rhythm, S1 and S2 present, no murmurs or gallops appreciated. ABDOMEN: Soft, non-tender. No signs of distention. No rebound no guarding, and no masses palpated. Bowel sounds are normal. EXTREMITIES: FROM in all major joints, no edema, no cyanosis or clubbing. NEURO: Patient is lethargic possibly secondary to ETOH intoxication or substance induced lethargy SKIN: Dry and warm Triage Information Reviewed: Yes Vital Signs Reviewed: Yes Diagnostics - Laboratory Result Diagrams: 09/28/18 16:48 09/28/18 16:48 Lab Statement: Any lab studies that have been ordered have been reviewed, and results considered in the medical decision making process. - Radiology CXR Radiology Interpretation Completed By: Radiologist Summary of Radiographic Findings: NO ACTIVE CARDIOPULMONARY DISEASE. ED physician has reviewed this report. - EKG 1703 Cardiac Rate: Tachycardia - 101 BPM EKG Rhythm: Sinus Tachycardia Summary of EKG Findings: Sinus tachycardia at [address] elevations Course/Dx - Course Assessment/Plan: Patient is a 28-year-old male who presents to the emergency department via ambulance with a chief complaint of alcohol intoxication. Test results without any significant abnormality except for glucose of 114, lactic acid is 2.9, urinalysis is negative for UTI and serum alcohol level is 197. The ED course the patient was given IV fluids. Patient is hemodynamically stable. The patient will be signed out to Dr. Villarreal at shift change for further workup and disposition of this patient. - Diagnoses Provider Diagnoses: Alcohol intoxication Discharge - Sign-Out/Discharge Documenting (check all that apply): Sign-Out Patient Signing out patient TO: Twan Villarreal - Awaiting further workup and disposition - Discharge Plan Referrals: Gabriella Fragoso NP [Primary Care Provider] - - Attestation Statements Document Initiated by Scribe: Yes Documenting Scribe: Deb Duncan Provider For Whom Scribe is Documenting (Include Credential): Gorge Fenton MD Scribe Attestation: Deb Brunner, scribed for Gorge Fenton MD on 09/28/18 at 1903. Scribe Documentation Reviewed: Yes Provider Attestation: The documentation as recorded by the scribeDeb accurately reflects the service I personally performed and the decisions made by , Gorge Fenton MD Status of Scribe Document: Viewed
[2018-09-28 16:56] LABS: ABS Basophils 0.1 10^3/ul (0-0.2); ABS Eosinophils 0.1 10^3/ul (0-0.6); ABS Lymphocytes 4.1 10^3/ul (1.0-4.8); ABS Monocytes 0.6 10^3/ul (0-0.8); ABS Neutrophils 5.8 10^3/ul (1.5-7.7); ABS Nucleated RBC 0 10^3/ul; Eosinophil % 0.5 %; Hematocrit 43 % (36-46); Hemoglobin 14.2 g/dL (14.0-18.0); Lymphocyte % 38.2 %; Mean Corpuscular HGB Conc 33 g/dL (31-36); Mean Corpuscular Hemoglobin 28 pg (27-31); Mean Corpuscular Volume 83 fL (80-94); Mean Platelet Volume 7.9 fL (7.4-10.4); Nucleated Red Blood Cells % 0.1; Platelet Count 292 10^3/uL (150-450); Red Blood Count 5.13 10^6 /uL (4.18-5.48); Red Cell Distribution Width 17 % (10.5-15); White Blood Count 10.6 10^3/uL (3.5-10.8)
[2018-09-28 17:15] LABS: ALT 18 U/L (7-52); AST 15 U/L (13-39); Albumin 4.3 g/dL (3.2-5.2); Albumin/Globulin Ratio 1.6 (1-3); Alkaline Phosphatase 59 U/L (34-104); Anion Gap 11 mmol/L (2-11); BUN/Creatinine Ratio 9.6 (8-20); Blood Urea Nitrogen 10 mg/dL (6-24); CO2 Carbon Dioxide 23 mmol/L (22-32); Calcium 9.1 mg/dL (8.6-10.3); Chloride 105 mmol/L (101-111); Creatine Kinase 101 U/L (10-223); EGFR African American 102.9 (>60); Globulin 2.7 g/dL (2-4); Glucose 114 mg/dL (70-100); Potassium 3.5 mmol/L (3.5-5.0); Sodium 139 mmol/L (135-145)
[2018-09-28 17:21] LABS: Urine Appearance Clear; Urine Bilirubin Negative (Negative); Urine Blood Negative (Negative); Urine Color Straw; Urine Glucose Negative (Negative); Urine Ketones Negative (Negative); Urine Nitrite Negative (Negative); Urine Protein Negative (Negative); Urine Specific Gravity 1.003 (1.010-1.030); Urine Urobilinogen Negative (Negative)
[2018-09-28 17:21] LABS: Acetaminophen < 15 mcg/mL; Alcohol 197 mg/dL (<10); Salicylate < 2.50 mg/dL (<30)
[2018-09-28 17:29] LABS: Barbiturates Urine Screen None Detected (None Detect); Benzodiazepine Urine Screen None Detected (None Detect); Urine Cannabinoids Screen None Detected (None Detect)
[2018-09-28 17:36] LABS: TSH (Thyroid Stimulating Horm) 3.43 mcIU/mL (0.34-5.60)
--- NOTE | 2018-09-28 22:03 | ED ---
Progress - Progress Note Progress Note: The patient is a 28 year old male [facility] out from Dr. Fenton and currently being seen by Dr. Villarreal. The patient is pending sobriety and disposition. Course/Dx - Course Course Of Treatment: The patient is a 28 year old male who was seen by Dr. Fenton and signed out to Dr. Villarreal. The patient was pending sobriety. Patient is awake and alert and orientated at this current time. He will be discharged home with a dx of alcohol intoxication. - Diagnoses Provider Diagnoses: Alcohol intoxication Discharge - Sign-Out/Discharge Documenting (check all that apply): Patient Departure Receiving patient FROM: Gorge Fenton Patient Received Moderate/Deep Sedation with Procedure: No - Discharge Plan Condition: Stable Disposition: HOME Patient Education Materials: Alcohol Intoxication (ED) Referrals: Gabriella Fragoso SHEET HEATER [Primary Care Provider] - Additional Instructions: PLEASE RETURN TO THE ED IMMEDIATELY FOR WORSENING OR CONCERNING SYMPTOMS.FOLLOW UP WITH YOUR PRIMARY CARE PROVIDER WITHIN ONE WEEK. - Billing Disposition and Condition Condition: STABLE Disposition: Home - Attestation Statements Document Initiated by Mario: Yes Documenting Scribe: Roland Ward Provider For Whom Mario is Documenting (Include Credential): Dr. Phil Rosaiblissy Attestation: Roland Brunner scribed for Dr. Villarreal on 09/29/18 at 0654. Scribe Documentation Reviewed: Yes Provider Attestation: The documentation as recorded by the Roland fournier accurately reflects the service I personally performed and the decisions made by , Dr. Villarreal Status of Scribe Document: Viewed
[2018-09-28 22:40] VITALS: BP 145/89
== END | disposition home or self-care (01) ==
LOC: ED 15:37
DX: F10.129 Alcohol abuse with intoxication, unspecified (principal); B19.20 Unspecified viral hepatitis C without hepatic coma; Z87.891 Personal history of nicotine dependence; E03.9 Hypothyroidism, unspecified; I10 Essential (primary) hypertension; R00.0 Tachycardia, unspecified
CPT/HCPCS: 36415; 71045; 80053; 80307; 80320; 80329; 81003; 82550; 83605; 84443; 85025; 93005; 96360; 96361; 99283; G0480

== ENCOUNTER 2018-09-30 13:15 | Emergency (ER) | payer MEDICAID ==
--- NOTE | 2018-09-30 13:31 | ED ---
Substance Abuse/Use - HPI Summary HPI Summary: This patient is a 28 year old M presenting to [facility] with a chief complaint of substance abuse since this morning. The patient is transgender female. The patient reports that she drank 2 beverages with EtOH and smoked marijuana. The patient resides at [facility] and staff called EMS because they suspected he was intoxicated and having a psychotic break. The patient rates the pain 0/10 in severity. Symptoms aggravated by nothing. Symptoms alleviated by nothing. LEVEL 5 CAVEAT DUE TO INTOXICATION. - History Of Current Complaint Stated Complaint: MHE PER EMS Time Seen by Provider: 09/30/18 13:16 Hx Obtained From: Family/Front Office Supervisor, EMS Onset/Duration of Drug/ETOH Abuse: Hours Ingestion History: Type/Name Of Drug - EtOH, marijuana Overdose Characteristics: Oral, Inhalation Severity Initially: Mild Severity Currently: Mild Aggravating Factor(s): Nothing Alleviating Factor(s): Nothing Related Hx: Possible Multi Drug Ingestion, Prior Drug Abuse Counseling/Admission , Prior Psych Admission - Allergies/Home Medications Allergies/Adverse Reactions: Allergies Allergy/AdvReac Type Severity Reaction Status Date / Time No Known Allergies Allergy Verified 09/07/18 12:05 PMH/Surg Hx/FS Hx/Imm Hx Endocrine/Hematology History: Reports: Hx Thyroid Disease - Hypothyroidism Denies: Hx Anticoagulant Therapy, Hx Blood Disorders, Hx Blood Transfusions, Hx Bone Marrow Disease, Hx Diabetes, Hx Systemic Lupus Erythematosus, Hx Sickle Cell Disease, Hx Anemia, Hx Unexplained Bleeding, Other Endocrine/Hematological Disorders Cardiovascular History: Reports: Hx Hypertension Denies: Hx Aneurysm, Hx Angina, Hx Angioplasty, Hx Auto Implanted Cardiovert Defib, Hx Cardiac Arrest, Hx Cardiomegaly, Hx Congenital Heart Disease, Hx Congestive Heart Failure, Hx Coronary Artery Disease, Hx Deep Vein Thrombosis, Hx Embolism, Hx Hypercholesterolemia, Hx Hypotension, Hx Pacemaker/ICD, Hx Peripheral Vascular Disease, Hx Rheumatic Fever, Hx Syncope, Hx Valvular Heart Disease, Other Cardiovascular Problems/Disorders Respiratory History: Reports: Hx Pneumonia, Hx Seasonal Allergies Denies: Hx Asthma, Hx Chronic Bronchitis, Hx Chronic Obstructive Pulmonary Disease (COPD), Hx Cystic Fibrosis, Hx Lung Cancer, Hx Pleural Effusion, Hx Pulmonary Edema, Hx Pulmonary Embolism, Hx Sleep Apnea, Other Respiratory Problems/Disorders GI History: Reports: Hx Ulcer Denies: Hx Cirrhosis, Hx Crohn's Disease, Hx Diverticulosis, Hx Gall Bladder Disease, Hx Gastroesophageal Reflux Disease, Hx Gastrointestinal Bleed, Hx Hiatal Hernia, Hx Irritable Bowel, Hx Jaundice, Hx Obstructive Bowel, Hx Ileostomy, Hx Pyloric Stenosis, Other GI Disorders History: Denies: Hx Acute Renal Failure, Hx Benign Prostatic Hyperplasia, Hx Chronic Renal Failure, Hx Dialysis, Hx Kidney Infection, Hx Kidney Stones, Hx Renal Disease, Other Problems/Disorders Musculoskeletal History: Denies: Hx Arthritis, Hx Back Problems, Hx Bursitis, Hx Congenital Bone Abnormalities, Hx Fibromyalgia, Hx Gout, Hx Orthopedic Injury, Hx Osteoporosis, Hx Scoliosis, Hx Tendonitis, Other Musculoskeletal History Sensory History: Reports: Hx Contacts or Glasses - glasses not with patient Denies: Hx Cataracts, Hx Eye Injury, Hx Eye Prosthesis, Hx Glaucoma, Hx Legally Blind, Hx Macular Degeneration, Hx Vision Problem, Hx Deafness, Hx Hearing Aid, Other Sensory Impairments Opthamlomology History: Reports: Hx Contacts or Glasses - glasses not with patient Denies: Hx Cataracts, Hx Eye Injury, Hx Eye Prosthesis, Hx Glaucoma, Hx Legally Blind, Hx Macular Degeneration, Hx Vision Problem, Other Sensory Impairments Neurological History: Reports: Hx Headaches, Hx Seizures Denies: Hx Dementia, Hx Developmental Delay, Hx Migraine, Hx Nerve Disease, Hx Spinal Cord Injury, Hx Transient Ischemic Attacks (TIA), Other Neuro Impairments/Disorders Psychiatric History: Reports: Hx Anxiety, Hx Depression, Hx Post Traumatic Stress Disorder, Hx Inpatient Treatment, Hx Community Mental Health Tx, Hx Bipolar Disorder, Hx of Violent Episodes Against Others, Hx Substance Abuse, Other Psychiatric Issues/Disorders Denies: Hx Attention Deficit Hyperactivity Disorder, Hx Eating Disorder, Hx Panic Disorder, Hx Schizophrenia, Hx Suicide Attempt - Cancer History Cancer Type, Location and Year: None reported - Surgical History Surgery Procedure, Year, and Place: none Hx Anesthesia Reactions: No - Immunization History Date of Tetanus Vaccine: Unknown Date of Influenza Vaccine: None Infectious Disease History: Reports: Hx Hepatitis - Hep C Denies: Hx Clostridium Difficile, Hx Human Immunodeficiency Virus (HIV), Hx of Known/Suspected MRSA, Hx Shingles, Hx Tuberculosis, Hx Known/Suspected VRE, Hx Known/Suspected VRSA, History Other Infectious Disease, Traveled Outside the [place] in Last 30 Days - Family History Known Family History: Positive: Other - cancer Negative: Renal Disease - Social History Alcohol Use: Daily Alcohol Amount: unk Hx Substance Use: Yes Substance Use Type: 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 Substance Use Comment - Amount & Last Used: 09/04, 09/05/18,09/06,09/07,09/08,09/09 2018 Coricidin overdose Hx Tobacco Use: Yes Smoking Status (MU): Former Smoker Type: Cigarettes Have You Smoked in the Last Year: Yes Review of Systems Negative: Fever Negative: Epistaxis Negative: Vomiting Positive: Slurred Speech All Other Systems Reviewed And Are Negative: No - Comments Additional Review of Systems Comments: LEVEL 5 CAVEAT DUE TO INTOXICATION. Physical Exam - Summary Physical Exam Summary: Appearance: The patient is well-nourished in no acute distress and in no acute pain. The patient smells like EtOH Skin: The skin is warm and dry and skin color reflects adequate perfusion. HEENT: The head is normocephalic and atraumatic. The pupils are 3-4 and unreactive. The conjunctivae are clear and without drainage. Nares are patent and without drainage. Mouth reveals moist mucous membranes and the throat is without erythema and exudate. The external ears are intact. The ear canals are patent and without drainage. The tympanic membranes are intact. Neck: The neck is supple with full range of motion and non-tender. There are no carotid bruits. There is no neck vein distension. Respiratory: Chest is non-tender. Lungs are clear to auscultation and breath sounds are symmetrical and equal. Cardiovascular: Heart is regular rhythm. Tachycardia. There is no murmur or rub auscultated. There is no peripheral edema and pulses are symmetrical and equal. Abdomen: The abdomen is soft and non-tender. There are normal bowel sounds heard in all four quadrants and there is no organomegaly palpated. Musculoskeletal: There is no back tenderness noted. Extremities are non-tender with full range of motion. There is good capillary refill. There is no peripheral edema or calf tenderness elicited. Neurological: Patient is awake and alert. The patient has symmetrical motor strength in all four extremities. Cranial nerves are grossly intact. Deep tendon reflexes are symmetrical and equal in all four extremities. Slurred speech Psychiatric: The patient has an appropriate affect and does not exhibit any anxiety or depression LEVEL 5 CAVEAT DUE TO INTOXICATION. Triage Information Reviewed: Yes Vital Signs Reviewed: Yes Re-Evaluation - Re-Evaluation First Eval Re-Evaluation Time: 20:24 Change: Improved Comment: Patient is ready to go home Course/Dx - Course Course Of Treatment: Siria was not stuporous on arrival as is her usual presentation. She admitted to drinking alcohol and her BA was 164. She was allowed to sober up and was cooperative and communicative at discharge. - Diagnoses Provider Diagnoses: Alcohol intoxication Discharge - Sign-Out/Discharge Documenting (check all that apply): Patient Departure - Discharge Patient Received Moderate/Deep Sedation with Procedure: No - Discharge Plan Condition: Stable Disposition: HOME Patient Education Materials: Abuse of Alcohol (ED) Referrals: Gabriella Fragoso NP [Primary Care Provider] - 2 Days Additional Instructions: Follow up with your primary care provider in 2-3 days. Return to the Emergency Department for new or worsening symptoms. - Billing Disposition and Condition Condition: STABLE Disposition: Home - Attestation Statements Document Initiated by Shelleyiblissy: Yes Documenting Scribe: Leti Ocampo Provider For Whom Mario is Documenting (Include Credential): Brayan Haider MD Scribe Attestation: Leti Brunner scribed for Brayan Haider MD on 09/30/18 at 2105. Scribe Documentation Reviewed: Yes Provider Attestation: The documentation as recorded by the scribeLeti accurately reflects the service I personally performed and the decisions made by Brayan mayen MD Status of Scribe Document: Viewed
[2018-09-30 19:45] VITALS: BP 125/90
[2018-09-30] MEDS ORDERED: Ondansetron ODT TAB* 4 MG PO ONE (20:12)
== END 2018-09-30 21:15 | disposition home or self-care (01) ==
LOC: ED 13:15
DX: F10.129 Alcohol abuse with intoxication, unspecified (principal); F12.90 Cannabis use, unspecified, uncomplicated; Y90.6 Blood alcohol level of 120-199 mg/100 ml; I10 Essential (primary) hypertension; E03.9 Hypothyroidism, unspecified; F41.9 Anxiety disorder, unspecified; F32.9 Major depressive disorder, single episode, unspecified; Z86.19 Personal history of other infectious and parasitic diseases
CPT/HCPCS: 36415; 80320; 99283; A9270-GY; G0480

== ENCOUNTER 2018-10-01 15:06 | Inpatient (IN) | payer MEDICAID ==
--- NOTE | 2018-10-01 15:20 | ED ---
Psychiatric Complaint - HPI Summary HPI Summary: This pt is a 28 y/o male presenting to [facility] via EMS for a mental health evaluation. Pt presents intoxicated. EMS reports the pt has cut her right thigh superficially. Pt is a transgender female. wildlife conservation officer reports they received a call from [facility] reporting pt needed to be evaluated and pt is no longer welcomed back to the [facility] where she came from. Per precinct police lieutenant, pt has been to the [facility] ED every day for the past 2 weeks for intoxication. Pt was last seen in the ED yesterday for the same. HPI IS LIMITED DUE TO LEVEL 5 CAVEAT - pt is intoxicated - History Of Current Complaint Hx Obtained From: EMS, Other: - wildlife conservation officer Hx From Patient Unobtainable Due To: Other - Level 5 caveat - pt is intoxicated Onset/Duration: Lasting Hours, Still Present Timing: Hours Severity Currently: Moderate Character: Stuporous Aggravating Factor(s): Alcohol Use Alleviating Factor(s): Nothing Related History: Positive For: Prior Psychiatric Issues Has Suicidal: Reports: Demonstrates Gesture Ingestion History: Type/Name Of Drug - alcohol, Amount Ingested - unknown - Allergies/Home Medications Allergies/Adverse Reactions: Allergies Allergy/AdvReac Type Severity Reaction Status Date / Time No Known Allergies Allergy Verified 09/07/18 12:05 PMH/Surg Hx/FS Hx/Imm Hx Endocrine/Hematology History: Reports: Hx Thyroid Disease - Hypothyroidism Denies: Hx Anticoagulant Therapy, Hx Blood Disorders, Hx Blood Transfusions, Hx Bone Marrow Disease, Hx Diabetes, Hx Systemic Lupus Erythematosus, Hx Sickle Cell Disease, Hx Anemia, Hx Unexplained Bleeding, Other Endocrine/Hematological Disorders Cardiovascular History: Reports: Hx Hypertension Denies: Hx Aneurysm, Hx Angina, Hx Angioplasty, Hx Auto Implanted Cardiovert Defib, Hx Cardiac Arrest, Hx Cardiomegaly, Hx Congenital Heart Disease, Hx Congestive Heart Failure, Hx Coronary Artery Disease, Hx Deep Vein Thrombosis, Hx Embolism, Hx Hypercholesterolemia, Hx Hypotension, Hx Pacemaker/ICD, Hx Peripheral Vascular Disease, Hx Rheumatic Fever, Hx Syncope, Hx Valvular Heart Disease, Other Cardiovascular Problems/Disorders Respiratory History: Reports: Hx Pneumonia, Hx Seasonal Allergies Denies: Hx Asthma, Hx Chronic Bronchitis, Hx Chronic Obstructive Pulmonary Disease (COPD), Hx Cystic Fibrosis, Hx Lung Cancer, Hx Pleural Effusion, Hx Pulmonary Edema, Hx Pulmonary Embolism, Hx Sleep Apnea, Other Respiratory Problems/Disorders GI History: Reports: Hx Ulcer Denies: Hx Cirrhosis, Hx Crohn's Disease, Hx Diverticulosis, Hx Gall Bladder Disease, Hx Gastroesophageal Reflux Disease, Hx Gastrointestinal Bleed, Hx Hiatal Hernia, Hx Irritable Bowel, Hx Jaundice, Hx Obstructive Bowel, Hx Ileostomy, Hx Pyloric Stenosis, Other GI Disorders History: Denies: Hx Acute Renal Failure, Hx Benign Prostatic Hyperplasia, Hx Chronic Renal Failure, Hx Dialysis, Hx Kidney Infection, Hx Kidney Stones, Hx Renal Disease, Other Problems/Disorders Musculoskeletal History: Denies: Hx Arthritis, Hx Back Problems, Hx Bursitis, Hx Congenital Bone Abnormalities, Hx Fibromyalgia, Hx Gout, Hx Orthopedic Injury, Hx Osteoporosis, Hx Scoliosis, Hx Tendonitis, Other Musculoskeletal History Sensory History: Reports: Hx Contacts or Glasses - glasses not with patient Denies: Hx Cataracts, Hx Eye Injury, Hx Eye Prosthesis, Hx Glaucoma, Hx Legally Blind, Hx Macular Degeneration, Hx Vision Problem, Hx Deafness, Hx Hearing Aid, Other Sensory Impairments Opthamlomology History: Reports: Hx Contacts or Glasses - glasses not with patient Denies: Hx Cataracts, Hx Eye Injury, Hx Eye Prosthesis, Hx Glaucoma, Hx Legally Blind, Hx Macular Degeneration, Hx Vision Problem, Other Sensory Impairments Neurological History: Reports: Hx Headaches, Hx Seizures Denies: Hx Dementia, Hx Developmental Delay, Hx Migraine, Hx Nerve Disease, Hx Spinal Cord Injury, Hx Transient Ischemic Attacks (TIA), Other Neuro Impairments/Disorders Psychiatric History: Reports: Hx Anxiety, Hx Depression, Hx Post Traumatic Stress Disorder, Hx Inpatient Treatment, Hx Community Mental Health Tx, Hx Bipolar Disorder, Hx of Violent Episodes Against Others, Hx Substance Abuse, Other Psychiatric Issues/Disorders Denies: Hx Attention Deficit Hyperactivity Disorder, Hx Eating Disorder, Hx Panic Disorder, Hx Schizophrenia, Hx Suicide Attempt - Cancer History Cancer Type, Location and Year: None reported - Surgical History Surgery Procedure, Year, and Place: none Hx Anesthesia Reactions: No - Immunization History Date of Tetanus Vaccine: Unknown Date of Influenza Vaccine: None Infectious Disease History: Yes Infectious Disease History: Reports: Hx Hepatitis - Hep C Denies: Hx Clostridium Difficile, Hx Human Immunodeficiency Virus (HIV), Hx of Known/Suspected MRSA, Hx Shingles, Hx Tuberculosis, Hx Known/Suspected VRE, Hx Known/Suspected VRSA, History Other Infectious Disease, Traveled Outside the [place] in Last 30 Days - Family History Known Family History: Positive: Other - cancer Negative: Renal Disease - Social History Alcohol Use: Daily Alcohol Amount: unk Hx Substance Use: Yes Substance Use Type: 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 Substance Use Comment - Amount & Last Used: 09/04, 09/05/18,09/06,09/07,09/08,09/09 2018 Coricidin overdose Hx Tobacco Use: Yes Smoking Status (MU): Former Smoker Type: Cigarettes Have You Smoked in the Last Year: Yes Review of Systems - ROS Summary Review of Systems Summary: ROS IS LIMITED DUE TO LEVEL 5 CAVEAT - pt is intoxicated Negative: Fever Skin: Other - POS: self inflicted cut on right thigh Psychological: Other - POS: alcohol intoxication All Other Systems Reviewed And Are Negative: No Physical Exam - Summary Physical Exam Summary: Appearance: Appears intoxicated. Easily arousable. Skin: Warm, dry, no obvious rash. Superficial abrasion on right thigh, no active bleeding. Eyes: sclera anicteric, no conjunctival pallor ENT: mucous membranes moist Neck: deferred Respiratory: No signs of respiratory distress Cardiovascular: Appears well perfused, pulses are nml Abdomen: deferred Musculoskeletal: Moving all 4 extremities without obvious discomfort Triage Information Reviewed: Yes Vital Signs On Initial Exam: Initial Vitals Temp Pulse Resp BP Pulse Ox 97.2 F 112 25 150/109 99 10/01/18 15:07 10/01/18 15:07 10/01/18 15:07 10/01/18 15:07 10/01/18 15:07 Vital Signs Reviewed: Yes Completion Of Physical Exam Limited Due To: Level 5 - pt is intoxicated Diagnostics - Vital Signs Vital Signs Temp Pulse Resp BP Pulse Ox 10/01/18 15:07 97.2 F 112 25 150/109 99 - Laboratory Lab Statement: Any lab studies that have been ordered have been reviewed, and results considered in the medical decision making process. Course/Dx - Course Assessment/Plan: Pt is a 28 y/o male who presents to the ED via EMS for a mental health evaluation. Pt presents intoxicated. EMS reports the pt has cut her right thigh superficially. HPI is limited due to level 5 caveat - pt is intoxicated. Serum alcohol is 297. Pt will be signed out to Dr. Villarreal at shift change, pending disposition, awaiting sobriety and subsequent MHE. - Differential Dx/Clinical Impression Provider Diagnosis: Substance abuse Discharge - Sign-Out/Discharge Documenting (check all that apply): Sign-Out Patient Signing out patient TO: Twan Villarreal - pending sobriety and MHE Patient Received Moderate/Deep Sedation with Procedure: No - Discharge Plan Condition: Stable - Billing Disposition and Condition Condition: STABLE - Attestation Statements Document Initiated by Mario: Yes Documenting Scribe: Mel Doty Provider For Whom Mario is Documenting (Include Credential): Brayan Richardson MD Scribe Attestation: Mel Brunner, scribed for Brayan Richardson MD on 10/02/18 at 1108. Scribe Documentation Reviewed: Yes Provider Attestation: The documentation as recorded by the Mel fournier accurately reflects the service I personally performed and the decisions made by me, Brayan Richardson MD Status of Scribe Document: Viewed
--- NOTE | 2018-10-01 22:14 | ED ---
Progress - Progress Note Progress Note: Patient received as a sign out from Dr. Richardson at 2200 10/01/18 pending sobriety of patient and MHE. 0058 - Per Dr. Garrison, patient will be a mental health hold until the morning so that he could be evaluated by psychiatrist. Patient is signed out to Dr. Haider at 10/02/18 0700 shift change pending psychiatrist evaluation of this MH HOLD patient. Course/Dx - Course Course Of Treatment: Patient received as a sign out from Dr. Richardson at 2200 10/01 pending sobriety of patient and MHE. 0058 - Per Dr. Garrison, patient will be a mental health hold until the morning so that he could be evaluated by psychiatrist. Patient is signed out to Dr. Haider at 10/02/18 0700 shift change pending psychiatrist evaluation of this HOLD patient. - Diagnoses Provider Diagnoses: Depression - Provider Notifications Discussed Care Of Patient With: Obey Garrison Time Discussed With Above Provider: 00:58 Instructed by Provider To: Other - 0058 - Per Dr. Garrison, patient will be a mental health hold until the morning so that he could be evaluated by psychiatrist. Discharge - Sign-Out/Discharge Documenting (check all that apply): Sign-Out Patient Signing out patient TO: Brayan Haider - Discharge Plan Condition: Improved Disposition: PSYCHIATRIC FACILITY[place] [place] - Billing Disposition and Condition Condition: IMPROVED Disposition: Psychiatric Facility [facility] [place] - Attestation Statements Document Initiated by Momoe: Yes Documenting Scribe: SHERWIN HALL Provider For Whom Mario is Documenting (Include Credential): SCARLETT ESTRADA MD Scribe Attestation: SHERWIN Brunner scribed for SCARLETT ESTRADA MD on 10/29/18 at 0424. Scribe Documentation Reviewed: Yes Provider Attestation: The documentation as recorded by the SHERWIN fournier accurately reflects the service I personally performed and the decisions made by me, SCARLETT ESTRADA MD Status of Scribe Document: Viewed
[2018-10-02] MEDS ORDERED: Ondansetron ODT TAB* 4 MG SL ONE (01:43)
[2018-10-02] MEDS ORDERED: Ondansetron ODT TAB* 4 MG ONE (01:44)
--- NOTE | 2018-10-02 07:14 | ED ---
Progress - Progress Note Progress Note: This patient was signed out from Dr. Villarreal to Dr. Haider upon shift change at 07: 00 10/02/18 on mental health hold pending further evaluation. Per mental health livestock breeder, Dr. Bazan has decided that the patient will be a voluntary admit. Dx : depression - Consult/PCP Time Called: 23:45 Course/Dx - Course Course Of Treatment: This patient was signed out from Dr. Villarreal to Dr. Haider upon shift change at 07:00 10/02/18 on mental health hold pending further evaluation. Per mental health livestock breeder, Dr. Bazan has decided that the patient will be a voluntary admit. Dx: depression - Diagnoses Provider Diagnoses: Depression - Provider Notifications Discussed Care Of Patient With: James Bazan Time Discussed With Above Provider: 11:34 Instructed by Provider To: Other - Per mental health livestock breeder, Dr. Bazan has decided that the patient will be a voluntary admit. Dx: depression Discharge - Sign-Out/Discharge Documenting (check all that apply): Patient Departure - admit All imaging exams completed and their final reports reviewed: Yes Patient Received Moderate/Deep Sedation with Procedure: No - Discharge Plan Condition: Fair Dis[place] [place] Disposition and Condition Condition: FAIR Disposition: Psychiatric Facility [facility] - Attestation Statements Document Initiated by Shelleyibe: Yes Documenting Scribe: Dave Gamboa Provider For Whom Mario is Documenting (Include Credential): Brayan Haider MD Scribe Attestation: Dave Brunner, scribed for Brayan Haider MD on 10/02/18 at 1326. Scribe Documentation Reviewed: Yes Provider Attestation: The documentation as recorded by the Dave fournier accurately reflects the service I personally performed and the decisions made by me, Brayan Haider MD Status of Scribe Document: Viewed
--- NOTE | 2018-10-02 10:09 | PN ---
ED Flex Patient Progress Note Date of Service: 10/02/18 Subjective: Objective: Assessment: Plan: Vital Signs Temp Pulse Resp BP Pulse Ox 98.7 F 87 14 105/66 96 10/02/18 01:49 10/02/18 01:49 10/02/18 01:49 10/02/18 01:49 10/02/18 01:49 Lab Results - Entire Visit 10/01/18 15:22 Serum Alcohol 297 H
[2018-10-02] MEDS ORDERED: Al Hydrox/Mg Hydrox/Simet LIQ* 30 ML UDC PO PRN (10:28)
[2018-10-02] MEDS ORDERED: Acetaminophen TAB* 325 MG PO PRN (10:28)
[2018-10-02] MEDS ORDERED: Mouth Piece, Nicotine* 1 EACH CARTRIDGE INH ONE (11:00)
--- NOTE | 2018-10-02 12:03 | HP ---
H&P (Free Text) History and Physical: Justification for admission: Immediate Safety. CC " I am going to cut my wrist" The patient was brought to [facility] by EMS after overdosing on Coricidin cough medication and drinking a bottle of liquor. "Siria" said she was going to go to [facility] and buy razor blades and cut her wrists. Denied access to firearms or stockpiles of medications. She reported wanting to go to rehab for substance abuse. Alcohol level in the ED was 297 yesterday. The patient denied homicidal ideation intent or plan. The patient denied auditory and/ or visual hallucinations. Bipolar Denied features of octavia. Anxiety Denied having symptoms of anxiety such as having times where heart feels that it is beating out of chest , sweaty palms, or shallow breathing. Denied having uncomfortable or intrusive thoughts. Denied feeling restless, high strung, or worrying too much most of the time. Psychosis Does not endorse hearing things that other people do not hear or seeing things other people do not see. Denied feeling that TV is making references. Denied feeling that people are spying , following , or reading their thoughts. Phobias: Patient denied having excessive fear of a particular thing or situation. Eating disorders: Patient denied having excessive eating habits or feelings of guilt after eating. Denied repeated episodes of self induced vomiting after eating. PTSD Denied flashbacks, nightmares and avoidance of a prior traumatic event. PAST PSYCHIATRIC HISTORY: Prior Diagnosis : Opiate dependence, Coricidin dependence, substance- induced mood disorder, alcohol use disorder, malingering and unspecified personality disorder. History of past Psychiatric Hospitalizations: Multiple past inpatient hospitalizations including [facility]. History of past suicide/homicide attempts : Admitted to the ICU several times after accidental drug overdose. Outpatient follow-up: [facility] Medications: Past trials of medications include aripiprazole, risperidone, olanzapine, sertraline, citalopram, fluoxetine, trazodone, buproprion, naltrexone, suboxone, Topamax, prazosin, lithium, Antabuse, benzodiazepines and stimulants. Guardianship: None. FAMILY HISTORY: - Suicide: Denied family history of suicide. - Mental illness: Denied a history of mental health in immediate family members. - Substance abuse: Denied substance abuse among family members. SUBSTANCE ABUSE HISTORY: - EtOH: drinks liquor 3 -4 times a week 3-4 , 24oz beers, to the point of intoxication and blackouts. - Tobacco: smokes 1/2 ppd - Cannabis: uses occasionally - Heroin: Has used in the past unspecified amount or last use - Cocaine: Has used in the past unspecified amount or last use - Substance abuse treatment: Multiple past substance abuse treatments. -Coricidin use takes multiple pills at a time unspecified amounts at a time SOCIAL HISTORY: Patient reports that his mother when he was 6 years old. He has not met his father who has been in custodial for a manslaughter. Patient was raised by his aunt and uncle and still finds them to be supportive figure in his life. Although feels that he has distant them due to his drug/alcohol use. - Living situation: Homeless - Employment history: None at this time - Relationship: None - Legal history: Pending legal charges - service history: Denied PAST MEDICAL HISTORY: Hepatitis C, hypothyroidism. - Allergies: Denied drug or other allergies. Physical Exam: Please see ED note Mental Status Exam on Admission APPEARANCE : 28 year old transgender male who appears stated age. Patient wearing fingernails and appears disheveled poor hygiene and grooming. BEHAVIOR: Cooperative , calm EYE CONTACT: Fair PSYCHOMOTOR ACTIVITY: No psychomotor agitation or retardation. MOVEMENTS: No abnormal movements observed. SPEECH : Normal rate, rhythm, volume and tone. MOOD : " Horrible" AFFECT : irritable THOUGHT PROCESS: formulated and organized in a logical, linear goal directed manner. No flight of ideas , neologism (made up words) , perseveration , tangential , loose associations , or circumstantiality. THOUGHT CONTENT: no delusions, preoccupations, obsessions, phobias or preoccupations. PERCEPTION: No current auditory or visual hallucinations. Doesnt appear to be responding to internal cues. No evidence of depersonalization , de-realization, or illusions SUICIDALITY Recent suicidal ideation HOMICIDALITY Denied homicidal ideation, intent or plan. Insight/judgment: Poor insight and judgment ORIENTATION: Oriented to self, location, and time. Diagnosis on Admission: 1. Multiple episodes of polysubstance abuse and overdose. 2. Coricidin dependence. 3. Alcohol use disorder. 4. Tobacco use disorder. 5. Antisocial personality traits. 6. Hepatitis C. 7. Hypothyroidism. Assessment: 28 year old transgender male with history of multiple hospital visits comes to the ED with a specific suicidal plan to cut wrist with box cutters. Plan #Admit to [facility], Q15 minute observation. Start regular diet. Encourage participation in activities on the milieu. #Patient evaluated in ED and was determined by the emergency room Physician to be medically stable for admission to the [facility]. # Justification for Admission: For immediate safety per outlined in the [place] [facility] Code. # The patient requires inpatient admission at this time to assure safety, receive treatment and work toward stabilization. # Obtain collateral information once release is signed. # Collaboration with Social Work to assist with disposition and after care. Substance Abuse resources offered and was placed on the waiting list at [facility] [phone] Tobacco use disorder: nicotine supplement offered and put in place. #Thiamine # No sings of alcohol withdrawal, WAMs not indicated at this time #Goals before discharge include: Substance abuse rehabilitation, safety plan
[2018-10-02] MEDS: Thiamine TAB* 100 MG TAB PO SCH (12:20)
[2018-10-02] MEDS: Nicotine Inhaler* 10 MG AMP (NF) INH PRN ×5 (12:20→21:15)
[2018-10-02] MEDS: Vitamin THERAPEUTIC TAB PO SCH (12:21)
[2018-10-02] MEDS: Nicotine Patch Removal NOTE PATCH OFF SCH (21:15)
[2018-10-03] MEDS: Thiamine TAB* 100 MG TAB PO SCH (07:28)
[2018-10-03] MEDS: Nicotine PATCH 21 MG/24 HR* PATCH TRANSDERM SCH (07:28)
[2018-10-03] MEDS: Nicotine Inhaler* 10 MG AMP (NF) INH PRN ×7 (07:28→22:01)
[2018-10-03] MEDS: Levothyroxine TAB* 150 MCG TAB PO SCH (07:28)
[2018-10-03] MEDS: Vitamin THERAPEUTIC TAB PO SCH (07:28)
--- NOTE | 2018-10-03 10:47 | PN ---
Subjective - Subjective Date of Service: 10/03/18 Service Type: 17306 Hosp care 35 min high complexity Subjective: CC " I feel better" The patient said that he plans to go to rehab and doesnt think that living in [place] is good for him and plans to put enough the same effort to destroy himself as to recovery. He denied features of alcohol withdrawal. He reported adequate sleep. He was observed by staff walking the unit. No PRNs or behavioral incidents overnight. Objective - General Observations Appears Stated Age: Yes Stature: WNL Posture: WNL Eye Contact: Average Behavior/Activity: WNL - Interaction Observations Attitude Towards Examiner: Cooperative Affect: Blunted Speech Pattern/Tone: Clear Thought Process: Coherent Perception: WNL Thought Content: WNL Hallucination Type: None Delusion Type: None - Cognitive Function Orientation: A&O x 4 Level of Consciousness: Awake Cognition: WNL Judgment Within Normal Limits: No Ability to Make Reasonable Decisions: Mildly Impaired - Medication Compliance Cooperative with Inpatient Medication Regimen: Yes - Group Participation Participates in Group Activities: No Assessment - Assessment Merits Inpatient Hospitalization: For Immediate Safety, For Stabilization Clinical Impression: 28 year old transgender male with history of multiple hospital visits comes to the ED with a specific suicidal plan to cut wrist with box cutters. Plan - Plan Treatment Plan: Name: MADONNA MOON Birthdate: 1990 [id number] #Q15 minute observation. # The patient requires inpatient admission at this time to assure safety, receive treatment and work toward stabilization. # Collaboration with Social Work to assist with disposition and after care. Substance Abuse resources offered and was placed on the waiting list at [facility] [phone] Tobacco use disorder: nicotine supplement offered and put in place. #Thiamine ordered # No sings of alcohol withdrawal, WAMs not indicated at this time #Goals before discharge include: Substance abuse rehabilitation, safety plan Vital Signs Temp Pulse Resp BP Pulse Ox 98.1 F 100 16 147/101 99 10/03/18 08:02 10/03/18 08:02 10/03/18 08:10 10/03/18 08:02 10/03/18 08:02 10/01/18 15:22 Serum Alcohol 297 H Continued Medication Management: Continue Outpt Medication Medications: Current Medications Acetaminophen (Tylenol Tab*) 650 mg PO Q4H PRN PRN Reason: for pain; or Temp >101 F Al Hydrox/Mg Hydrox/Simethicone (Maalox Plus*) 30 ml PO Q4H PRN PRN Reason: INDIGESTION Levothyroxine Sodium (Synthroid Tab*) 150 mcg PO DAILY@0600 [facility] Last Admin: 10/03/18 07:28 Dose: 150 mcg Multivitamins (Theragran Tab*) 1 tab PO DAILY [facility] Last Admin: 10/03/18 07:28 Dose: 1 tab Nicotine (Nicotine Inhaler*) 10 mg INH Q2H PRN PRN Reason: CRAVING Last Admin: 10/03/18 10:08 Dose: 10 mg Nicotine (Nicotine Patch 21 Mg/24 Hr*) 1 patch TRANSDERM DAILY@0800 [facility] Last Admin: 10/03/18 07:28 Dose: 1 patch Pharmacy Profile Note (Nicotine Patch Removal Note*) 1 note PATCH OFF 2100 [facility] Last Admin: 10/02/18 21:15 Dose: Not Given Thiamine HCl (Vitamin B-1 Tab*) 100 mg PO DAILY [facility] Last Admin: 10/03/18 07:28 Dose: 100 mg - Discharge Plan Discharge Plan: Inpatient Hospitalization
[2018-10-03] MEDS: Nicotine Patch Removal NOTE PATCH OFF SCH (20:06)
[2018-10-04] MEDS: Levothyroxine TAB* 150 MCG TAB PO SCH (07:36)
[2018-10-04] MEDS: Nicotine Inhaler* 10 MG AMP (NF) INH PRN ×8 (07:37→23:18)
[2018-10-04] MEDS: Vitamin THERAPEUTIC TAB PO SCH (08:12)
[2018-10-04] MEDS: Thiamine TAB* 100 MG TAB PO SCH (08:12)
[2018-10-04] MEDS: Nicotine PATCH 21 MG/24 HR* PATCH TRANSDERM SCH (08:13)
--- NOTE | 2018-10-04 13:30 | PN ---
Subjective - Subjective Date of Service: 10/04/18 Service Type: [id number] Hosp care 35 min high complexity Subjective: Nursing Report: Patient was visible on unit, no chemical restraints or PRNs. Slept overnight without incident. Attended AA group overnight. CC: " I want to go to rehab" Patient was seen and evaluated with Dejon PICKENS. The patient reported he would like to go to rehab and focus on getting sober. He reported having an adequate appetite and sleep. The patient reports attending AA and gaining insight into addiction. At first patient voices he may want to go to shelter for multiple charges of larceny than said it would be better to go to rehab than figure out the legal issues. Objective - General Observations Appearance: Disheveled Appears Stated Age: Yes Stature: WNL, Overweight Posture: WNL Eye Contact: Average Behavior/Activity: WNL - Interaction Observations Attitude Towards Examiner: Cooperative Stated Mood: Euthymic Affect: Blunted Speech Pattern/Tone: Clear, Quiet Volume Thought Process: Coherent Perception: WNL Thought Content: WNL Hallucination Type: None Delusion Type: None - Cognitive Function Orientation: A&O x 4 Level of Consciousness: Awake Judgment Within Normal Limits: No Ability to Make Reasonable Decisions: Mildly Impaired - Medication Compliance Cooperative with Inpatient Medication Regimen: Yes - Group Participation Participates in Group Activities: Partial Assessment - Assessment Clinical Impression: 28 year old transgender male with history of multiple hospital visits comes to the ED with a specific suicidal plan to cut wrist with box cutters. Plan - Plan Treatment Plan: Name: MADONNA MOON Birthdate: 1990 [id number] #Q15 minute observation. # The patient requires inpatient admission at this time to assure safety, receive treatment and work toward stabilization. # Collaboration with Social Work to assist with disposition and after care. Substance Abuse resources offered and was placed on the waiting list at [facility] [phone] Tobacco use disorder: nicotine supplement offered and put in place. #Continue Thiamine # No sings of alcohol withdrawal, WAMs not indicated at this time #Goals before discharge include: Substance abuse rehabilitation, safety plan Discharge plan: Discharge to substance abuse rehabilitation once placement becomes available Continued Medication Management: Continue Outpt Medication Medications: Current Medications Acetaminophen (Tylenol Tab*) 650 mg PO Q4H PRN PRN Reason: for pain; or Temp >101 F Al Hydrox/Mg Hydrox/Simethicone (Maalox Plus*) 30 ml PO Q4H PRN PRN Reason: INDIGESTION Levothyroxine Sodium (Synthroid Tab*) 150 mcg PO DAILY@0600 ON LICENSE OF [facility] Last Admin: 10/04/18 07:36 Dose: 150 mcg Multivitamins (Theragran Tab*) 1 tab PO DAILY ON LICENSE OF [facility] Last Admin: 10/04/18 08:12 Dose: 1 tab Nicotine (Nicotine Inhaler*) 10 mg INH Q2H PRN PRN Reason: CRAVING Last Admin: 10/04/18 12:31 Dose: 10 mg Nicotine (Nicotine Patch 21 Mg/24 Hr*) 1 patch TRANSDERM DAILY@0800 ON LICENSE OF [facility] Last Admin: 10/04/18 08:13 Dose: 1 patch Pharmacy Profile Note (Nicotine Patch Removal Note*) 1 note PATCH OFF 2100 ON LICENSE OF [facility] Last Admin: 10/03/18 20:06 Dose: 1 note Thiamine HCl (Vitamin B-1 Tab*) 100 mg PO DAILY ON LICENSE OF [facility] Last Admin: 10/04/18 08:12 Dose: 100 mg - Discharge Plan Discharge Plan: Inpatient Hospitalization
[2018-10-04] MEDS: Nicotine Patch Removal NOTE PATCH OFF SCH (20:14)
[2018-10-05] MEDS: Nicotine Inhaler* 10 MG AMP (NF) INH PRN ×2 (01:24→07:51)
[2018-10-05] MEDS: Thiamine TAB* 100 MG TAB PO SCH (07:51)
[2018-10-05] MEDS: Nicotine PATCH 21 MG/24 HR* PATCH TRANSDERM SCH (07:51)
[2018-10-05] MEDS: Vitamin THERAPEUTIC TAB PO SCH (07:51)
[2018-10-05] MEDS: Levothyroxine TAB* 150 MCG TAB PO SCH (07:51)
--- NOTE | 2018-10-05 13:40 | PN ---
Subjective - Subjective Date of Service: 10/05/18 Service Type: [id number] Hosp care 35 min high complexity Subjective: Nursing Report: Patient was visible on unit, no chemical restraints or PRNs. Slept overnight without incident. Attending group activities. CC: "I am okay Patient was seen and evaluated by this provider in his room. He stated that he is unsure if he is campuzano or straight and is making a list of things he knows about He reported having an adequate appetite and sleep. The patient reports attending and participating in day groups. Per nursing no behavioral issues or overnight events reported. Objective - General Observations Appearance: Disheveled Appears Stated Age: Yes Stature: WNL, Overweight Posture: WNL Eye Contact: Average Behavior/Activity: WNL - Interaction Observations Attitude Towards Examiner: Cooperative Stated Mood: Euthymic Affect: Blunted Speech Pattern/Tone: Clear Thought Process: Coherent Perception: WNL Thought Content: WNL Hallucination Type: None Delusion Type: None - Cognitive Function Orientation: A&O x 4 Level of Consciousness: Awake Judgment Within Normal Limits: No Ability to Make Reasonable Decisions: Mildly Impaired - Medication Compliance Cooperative with Inpatient Medication Regimen: Yes - Group Participation Participates in Group Activities: Yes Assessment - Assessment Merits Inpatient Hospitalization: For Immediate Safety Clinical Impression: 28 year old transgender male with history of multiple hospital visits comes to the ED with a specific suicidal plan to cut wrist with box cutters. Plan - Plan Treatment Plan: Name: MADONNA MOON Birthdate: 1990 [id number] #Q30 minute observation. # The patient requires inpatient admission at this time to assure safety, receive treatment and work toward stabilization. # Collaboration with Social Work to assist with disposition and after care. Tobacco use disorder: nicotine supplement offered and put in place. #Continue Thiamine # No sings of alcohol withdrawal, WAMs not indicated at this time #Goals before discharge include: Substance abuse rehabilitation, safety plan Discharge plan: Discharge to substance abuse rehabilitation on Monday Vital Signs Temp 98.2 F 10/05/18 07:49 Pulse 74 10/05/18 07:49 Resp 16 10/05/18 13:33 BP 127/81 10/05/18 07:49 Pulse Ox 99 10/05/18 07:49 Continued Medication Management: Continue Outpt Medication Medications: Current Medications Acetaminophen (Tylenol Tab*) 650 mg PO Q4H PRN PRN Reason: for pain; or Temp >101 F Al Hydrox/Mg Hydrox/Simethicone (Maalox Plus*) 30 ml PO Q4H PRN PRN Reason: INDIGESTION Levothyroxine Sodium (Synthroid Tab*) 150 mcg PO DAILY@0600 [facility] Last Admin: 10/05/18 07:51 Dose: 150 mcg Multivitamins (Theragran Tab*) 1 tab PO DAILY [facility] Last Admin: 10/05/18 07:51 Dose: 1 tab Nicotine (Nicotine Patch 21 Mg/24 Hr*) 1 patch TRANSDERM DAILY@0800 [facility] Last Admin: 10/05/18 07:51 Dose: 1 patch Nicotine Polacrilex (Nicotine Gum*) 2 mg PO Q2H PRN PRN Reason: CRAVING Pharmacy Profile Note (Nicotine Patch Removal Note*) 1 note PATCH OFF 2100 [facility] Last Admin: 10/04/18 20:14 Dose: 1 note Thiamine HCl (Vitamin B-1 Tab*) 100 mg PO DAILY [facility] Last Admin: 10/05/18 07:51 Dose: 100 mg - Discharge Plan Discharge Plan: Inpatient Hospitalization
[2018-10-05] MEDS: Nicotine GUM* (NF) 2 MG GUM PO PRN (13:56)
[2018-10-05] MEDS ORDERED: Nicotine Inhaler* 10 MG AMP (NF) INH ONE (17:00)
[2018-10-05] MEDS: Nicotine Patch Removal NOTE PATCH OFF SCH (22:15)
[2018-10-06] MEDS: Nicotine PATCH 21 MG/24 HR* PATCH TRANSDERM SCH (07:27)
[2018-10-06] MEDS: Levothyroxine TAB* 150 MCG TAB PO SCH (07:30)
[2018-10-06] MEDS: Thiamine TAB* 100 MG TAB PO SCH (08:10)
[2018-10-06] MEDS: Vitamin THERAPEUTIC TAB PO SCH (08:10)
[2018-10-06] MEDS: Nicotine GUM* (NF) 2 MG GUM PO PRN ×3 (12:45→19:43)
[2018-10-06] MEDS: Nicotine Patch Removal NOTE PATCH OFF SCH (20:03)
[2018-10-07] MEDS: Levothyroxine TAB* 150 MCG TAB PO SCH (07:21)
[2018-10-07] MEDS: Nicotine PATCH 21 MG/24 HR* PATCH TRANSDERM SCH (07:22)
[2018-10-07] MEDS: Nicotine GUM* (NF) 2 MG GUM PO PRN (13:43)
[2018-10-07] MEDS: Thiamine TAB* 100 MG TAB PO SCH (14:47)
[2018-10-07] MEDS: Vitamin THERAPEUTIC TAB PO SCH (14:47)
--- NOTE | 2018-10-07 16:22 | PN ---
Subjective - Subjective Date of Service: 10/07/18 Subjective: "Siria" reports that "he has been lost in thought, thinking about his future, he wants to take this opportunity to turn things around!" He denies any bothersome psychiatric complaints, he denies SI/HI whitaker urges for sib and he contracts for safety. He expresses internal and external (court) motivations to go to rehab and to complete the program. Per staff, he has not been attending groups. Objective - General Observations Appearance: Well Groomed Appears Stated Age: Yes Stature: Overweight Posture: WNL Eye Contact: Average Behavior/Activity: WNL - Interaction Observations Attitude Towards Examiner: Cooperative Stated Mood: Euthymic Affect: Full Speech Pattern/Tone: Clear Thought Process: Coherent Perception: WNL Thought Content: WNL Hallucination Type: None Delusion Type: None - Cognitive Function Orientation: A&O x 4 Level of Consciousness: Alert Cognition: WNL Estimated Intelligence: Normal Insight: Difficulty Acknowledging Presence of Psyciatric Problems Ability to Make Reasonable Decisions: Mildly Impaired - Group Participation Participates in Group Activities: No Assessment - Assessment Clinical Impression: 28 year old transgender male with history of multiple hospital visits comes to the ED with a specific suicidal plan to cut wrist with box cutters. Safe on checks, superficially engaged in programming, expressed motivation to go to rehab on Monday. Plan - Plan Treatment Plan: Name: MADONNA MOON Birthdate: 1990 [id number] #Q30 minute observation. # The patient requires inpatient admission at this time to assure safety, receive treatment and work toward stabilization. # Collaboration with Social Work to assist with disposition and after care. Tobacco use disorder: nicotine supplement offered and put in place. #Continue Thiamine # No sings of alcohol withdrawal, WAMs not indicated at this time #Goals before discharge include: Substance abuse rehabilitation, safety plan Discharge plan: Discharge to substance abuse rehabilitation on Monday Vital Signs Temp 98.2 F 10/05/18 07:49 Pulse 74 10/05/18 07:49 Resp 16 10/05/18 13:33 BP 127/81 10/05/18 07:49 Pulse Ox 99 10/05/18 07:49 Medications: Current Medications Acetaminophen (Tylenol Tab*) 650 mg PO Q4H PRN PRN Reason: for pain; or Temp >101 F Al Hydrox/Mg Hydrox/Simethicone (Maalox Plus*) 30 ml PO Q4H PRN PRN Reason: INDIGESTION Levothyroxine Sodium (Synthroid Tab*) 150 mcg PO DAILY@0600 [facility] Last Admin: 10/07/18 07:21 Dose: 150 mcg Multivitamins (Theragran Tab*) 1 tab PO DAILY [facility] Last Admin: 10/07/18 14:47 Dose: 1 tab Nicotine (Nicotine Patch 21 Mg/24 Hr*) 1 patch TRANSDERM DAILY@0800 [facility] Last Admin: 10/07/18 07:22 Dose: 1 patch Nicotine Polacrilex (Nicotine Gum*) 2 mg PO Q2H PRN PRN Reason: CRAVING Last Admin: 10/07/18 13:43 Dose: 2 mg Pharmacy Profile Note (Nicotine Patch Removal Note*) 1 note PATCH OFF 2100 [facility] Last Admin: 10/06/18 20:03 Dose: 1 note Thiamine HCl (Vitamin B-1 Tab*) 100 mg PO DAILY [facility] Last Admin: 10/07/18 14:47 Dose: 100 mg - Discharge Plan Discharge Plan: Drug/Alcohol Rehab Outpatient Program: TBD
[2018-10-07] MEDS ORDERED: Mouth Piece, Nicotine* 1 EACH CARTRIDGE INH PRN (16:33)
[2018-10-07] MEDS: Nicotine Inhaler* 10 MG AMP (NF) INH PRN ×3 (16:55→20:57)
[2018-10-07] MEDS: Nicotine Patch Removal NOTE PATCH OFF SCH (22:38)
[2018-10-08] MEDS: Nicotine Inhaler* 10 MG AMP (NF) INH PRN ×8 (06:12→21:57)
[2018-10-08] MEDS: Levothyroxine TAB* 150 MCG TAB PO SCH (07:17)
[2018-10-08] MEDS: Nicotine PATCH 21 MG/24 HR* PATCH TRANSDERM SCH (08:04)
[2018-10-08] MEDS: Vitamin THERAPEUTIC TAB PO SCH (08:04)
[2018-10-08] MEDS: Thiamine TAB* 100 MG TAB PO SCH (08:04)
--- NOTE | 2018-10-08 10:41 | PN ---
Subjective - Subjective Date of Service: 10/08/18 Service Type: 60456 Hosp care 35 min high complexity Subjective: Nursing Report: Patient was visible on unit, no chemical restraints or PRNs. Slept overnight without incident. He is attending group activities. CC: " I am frustrated but will deal with it" Patient was seen and evaluated in the common room. The patient reported he feels safe on the unit. He said that he is frustrated to hear about difficulty to going to rehab. He said he will make the most out of whatever resources. He went to AA group over the weekend. He reported having an adequate appetite and sleep. The patient reports attending and participating in day groups. Per nursing no behavioral issues or overnight events reported. He denied suicidal ideation, intent or plan. He denied homicidal ideation intent or plan. He denied auditory and or visual hallucinations. Objective - General Observations Appearance: Disheveled Appears Stated Age: Yes Stature: WNL Posture: WNL Eye Contact: Average Behavior/Activity: WNL - Interaction Observations Attitude Towards Examiner: Cooperative Stated Mood: Euthymic Affect: Blunted Speech Pattern/Tone: Clear Thought Process: Coherent Perception: WNL Thought Content: WNL Hallucination Type: None Delusion Type: None - Cognitive Function Orientation: A&O x 4 Level of Consciousness: Awake Cognition: WNL Estimated Intelligence: Normal Insight: WNL - Medication Compliance Cooperative with Inpatient Medication Regimen: Yes - Group Participation Participates in Group Activities: Yes Assessment - Assessment Clinical Impression: 28 year old transgender male with history of multiple hospital visits comes to the ED with SI and plan. No longer suicidal and plans to go to rehab on Monday Plan - Plan Treatment Plan: Name: MADONNA MOON Birthdate: 1990 [id number] #Q30 minute observation. # The patient requires inpatient admission at this time to assure safety, receive treatment and work toward stabilization. # Collaboration with Social Work to assist with disposition and after care. Tobacco use disorder: nicotine supplement offered and put in place. #Continue Thiamine # No sings of alcohol withdrawal, WAMs not indicated at this time #Goals before discharge include: Substance abuse rehabilitation, safety plan Discharge plan: Discharge to substance abuse rehabilitation on Monday Vital Signs 10/07/18 10/08/18 19:11 07:30 Temperature 98.0 F Pulse Rate 92 Respiratory 18 17 Rate Blood Pressure 136/94 (mmHg) O2 Sat by Pulse 97 Oximetry Continued Medication Management: Continue Outpt Medication Medications: Current Medications Acetaminophen (Tylenol Tab*) 650 mg PO Q4H PRN PRN Reason: for pain; or Temp >101 F Al Hydrox/Mg Hydrox/Simethicone (Maalox Plus*) 30 ml PO Q4H PRN PRN Reason: INDIGESTION Device (Nicotine Mouth Piece*) 1 each INH .USE W/ CARTRIDGE PRN PRN Reason: WITHDRAWAL - NICOTINE Levothyroxine Sodium (Synthroid Tab*) 150 mcg PO DAILY@0600 [facility] Last Admin: 10/08/18 07:17 Dose: 150 mcg Multivitamins (Theragran Tab*) 1 tab PO DAILY [facility] Last Admin: 10/08/18 08:04 Dose: 1 tab Nicotine (Nicotine Patch 21 Mg/24 Hr*) 1 patch TRANSDERM DAILY@0800 [facility] Last Admin: 10/08/18 08:04 Dose: 1 patch Nicotine (Nicotine Inhaler*) 10 mg INH Q2H PRN PRN Reason: CRAVIGNS Last Admin: 10/08/18 09:19 Dose: 10 mg Nicotine Polacrilex (Nicotine Gum*) 2 mg PO Q2H PRN PRN Reason: CRAVING Last Admin: 10/07/18 13:43 Dose: 2 mg Pharmacy Profile Note (Nicotine Patch Removal Note*) 1 note PATCH OFF 2100 [facility] Last Admin: 10/07/18 22:38 Dose: 1 note Thiamine HCl (Vitamin B-1 Tab*) 100 mg PO DAILY [facility] Last Admin: 10/08/18 08:04 Dose: 100 mg - Discharge Plan Discharge Plan: Inpatient Hospitalization
[2018-10-08] MEDS: Nicotine Patch Removal NOTE PATCH OFF SCH (20:49)
[2018-10-09] MEDS: Nicotine Inhaler* 10 MG AMP (NF) INH PRN (06:45)
[2018-10-09] MEDS: Levothyroxine TAB* 150 MCG TAB PO SCH (06:46)
[2018-10-09 08:06] VITALS: BP 118/86
[2018-10-09] MEDS: Vitamin THERAPEUTIC TAB PO SCH (08:08)
[2018-10-09] MEDS: Nicotine PATCH 21 MG/24 HR* PATCH TRANSDERM SCH (08:08)
[2018-10-09] MEDS: Thiamine TAB* 100 MG TAB PO SCH (08:08)
--- NOTE | 2018-10-09 11:05 | DS ---
Subjective - Subjective Service Types: [id number] [facility] Day Mgmt complex over 30 min Discharge Date: 10/09/18 Subjective: CC: "I want to make a change" Patient stated the reasons for being ready to quit using alcohol and drugs. He reported sleeping overnight. No behavioral disturbance reported by staff. stated that he plans to write the people that have helped him along the way. He is excited to be going to [place]. He denied suicidal ideation intent or plan. He denied homicidal ideation intent or plan. Justification for admission: Immediate Safety. CC " I am going to cut my wrist" The patient was brought to [facility] by EMS after overdosing on Coricidin cough medication and drinking a bottle of liquor. "Siria" said she was going to go to [facility] and buy razor blades and cut her wrists. Denied access to firearms or stockpiles of medications. She reported wanting to go to rehab for substance abuse. Alcohol level in the ED was 297 yesterday. The patient denied homicidal ideation intent or plan. The patient denied auditory and/ or visual hallucinations. Bipolar Denied features of octavia. Anxiety Denied having symptoms of anxiety such as having times where heart feels that it is beating out of chest , sweaty palms, or shallow breathing. Denied having uncomfortable or intrusive thoughts. Denied feeling restless, high strung, or worrying too much most of the time. Psychosis Does not endorse hearing things that other people do not hear or seeing things other people do not see. Denied feeling that TV is making references. Denied feeling that people are spying , following , or reading their thoughts. Phobias: Patient denied having excessive fear of a particular thing or situation. Eating disorders: Patient denied having excessive eating habits or feelings of guilt after eating. Denied repeated episodes of self induced vomiting after eating. PTSD Denied flashbacks, nightmares and avoidance of a prior traumatic event. PAST PSYCHIATRIC HISTORY: Prior Diagnosis : Opiate dependence, Coricidin dependence, substance- induced mood disorder, alcohol use disorder, malingering and unspecified personality disorder. History of past Psychiatric Hospitalizations: Multiple past inpatient hospitalizations including [facility]. History of past suicide/homicide attempts : Admitted to the ICU several times after accidental drug overdose. Outpatient follow-up: [facility] Medications: Past trials of medications include aripiprazole, risperidone, olanzapine, sertraline, citalopram, fluoxetine, trazodone, buproprion, naltrexone, suboxone, Topamax, prazosin, lithium, Antabuse, benzodiazepines and stimulants. Guardianship: None. FAMILY HISTORY: - Suicide: Denied family history of suicide. - Mental illness: Denied a history of mental health in immediate family members. - Substance abuse: Denied substance abuse among family members. SUBSTANCE ABUSE HISTORY: - EtOH: drinks liquor 3 -4 times a week 3-4 , 24oz beers, to the point of intoxication and blackouts. - Tobacco: smokes 1/2 ppd - Cannabis: uses occasionally - Heroin: Has used in the past unspecified amount or last use - Cocaine: Has used in the past unspecified amount or last use - Substance abuse treatment: Multiple past substance abuse treatments. -Coricidin use takes multiple pills at a time unspecified amounts at a time SOCIAL HISTORY: Patient reports that his mother when he was 6 years old. He has not met his father who has been in [place] [facility] for a manslaughter. Patient was raised by his aunt and uncle and still finds them to be supportive figure in his life. Although feels that he has distant them due to his drug/alcohol use. - Living situation: Homeless - Employment history: None at this time - Relationship: None - Legal history: Pending legal charges - service history: Denied PAST MEDICAL HISTORY: Hepatitis C, hypothyroidism. - Allergies: Denied drug or other allergies. Physical Exam: Please see ED note Mental Status Exam on Admission APPEARANCE : 28 year old transgender male who appears stated age. Patient wearing fingernails and appears disheveled poor hygiene and grooming. BEHAVIOR: Cooperative , calm EYE CONTACT: Fair PSYCHOMOTOR ACTIVITY: No psychomotor agitation or retardation. MOVEMENTS: No abnormal movements observed. SPEECH : Normal rate, rhythm, volume and tone. MOOD : " Horrible" AFFECT : irritable THOUGHT PROCESS: formulated and organized in a logical, linear goal directed manner. No flight of ideas , neologism (made up words) , perseveration , tangential , loose associations , or circumstantiality. THOUGHT CONTENT: no delusions, preoccupations, obsessions, phobias or preoccupations. PERCEPTION: No current auditory or visual hallucinations. Doesnt appear to be responding to internal cues. No evidence of depersonalization , de-realization, or illusions SUICIDALITY Recent suicidal ideation HOMICIDALITY Denied homicidal ideation, intent or plan. Insight/judgment: Poor insight and judgment ORIENTATION: Oriented to self, location, and time. Diagnosis on Admission: 1. Multiple episodes of polysubstance abuse and overdose. 2. Coricidin dependence. 3. Alcohol use disorder. 4. Tobacco use disorder. 5. Antisocial personality traits. 6. Hepatitis C. 7. Hypothyroidism. Assessment: 28 year old transgender male with history of multiple hospital visits comes to the ED with a specific suicidal plan to cut wrist with box cutters. Diagnosis on Discharge: Coricidin dependence. Alcohol use disorder.Tobacco use disorder. Condition at the time of discharge: At the time of discharge patient showed improvement of sleep and appetite. The patient was not a danger to self or others. The patient denied suicidal ideation , intent or plan. The patient denied homicidal targets, ideation, intent or plan. This patient participated in psychosocial rehabilitation and gained some insight into problems. The patient gained insight into mental illness, triggers, and treatment. The patient took medication as prescribed. The patient denied side effects of medication and objective signs of side effects were not evident. Therapy Resources were offered to the patient.The patient plans to attend [facility]. Patient was advised to have routine follow up care with their primary care physician and refrain from any use of alcohol or drugs. Objective - Appearance Appearance: Obese Dysmorphic Features: No Hygiene: Normal Grooming: Fairly Well Kept - Behavior Psychomotor Activities: Normal Exhibits Abnormal Movement: No - Attitude and Relatedness Attitude and Relatedness: Cooperative Eye Contact: Fair - Speech Quality: Unpressured Latencies: Normal Quantity: Appropriate - Mood Patient's Decription of Mood: "Fine" - Affect Observed Affect: Non-labile Affect Consistent with: Euthymia - Thought Process Patient's Thought Process: Coherent Thought Content: No Passive Wish, No Suicidal Planning, No Homicidal Ideation, No Paranoid Ideation - Sensorium Experiencing Hallucinations: No, Sensorium is Clear Type of Hallucinations: Visual: No, Auditory: No, Command: No - Level of Consciousness Level of Consciousness: Alert Orientation: Yes Intact, Yes Orientated to Time, Yes Orientated to Place, Yes Orientated to Person - Impulse Control Impulse Control: Tenuous - Insight and Judgement Insight and Judgement: Fair - Group Participation Particating in Group Activities: Yes - Medication Management Medication Management Adherence: Yes Treatment Course & Assessment Clinical Course & Impression: Hospital course part A: 28 year old transgender male with history of multiple hospital visits comes to the ED with SI and plan. No longer suicidal and plans to go to rehab. Hospital course part B: Labs ordered included CBC, CMP, UDS, TSH, HBA1c, TSH, Toxicology screen, Urine analysis. Labs were reviewed and did not require the need for further evaluation. Vital signs were monitored during the course of admission. The patient was admitted to the adult behavioral unit and placed on 15 minute check for safety. At a later time the patient was on Q30 minute observation . With those limits being extended , there were no occurrence of behavioral incidents. The patient did well on the unit and went to groups. Interacted with peers had adequate sleep and regular appetite. Attended AA meetings. Group therapy and services were offered. Risks of continuing drug and alcohol use was discussed. Patient created a journal of what he liked about himself and who he is. He noted that he plans to use the motivation to use and turn into motivation not to use. Improvements in patient from the time of admission include: Improved affect, sleep and decrease in anxiety. The patient expressed readiness for discharge to [facility]. The patient denied suicidal and or homicidal ideation intent or plan. Patient reported recognizing how emotional state can effect mood and behavior. Safety precautions were put in place which included involving the patient and their family to closely monitor for changes in mental state. In addition, implementing follow up care, screening for the need to remove/securing firearms , weapons and stockpile of medications. Patient instructed to immediately call 911 should any safety concerns arise. The patient was advised of the 24 hour / 7 days a week availability of the emergency room and to call 911 in the event of a emergency that includes being suicidal and/ or homicidal. The patient was informed of the contact information for [facility] Behavioral Services Unit, Suicide Prevention and Crisis Services, National Suicide Prevention Lifeline, [facility], Alcoholics Anonymous, and [facility]. Medications started included Thiamine 100mg daily, nicotine patch, gum and inhaler for nicotine cravings. Patient was offered resources for alcohol cravings and declined. Patient will be discharged to [facility] protocol was not indicated and no withdrawal effects were seen. Follow up appointments with PCP Gabriella Fragoso. Risk factors: single, history of mental illness, prior suicide attempts, Drug and alcohol abuse. Protective factors: Currently no suicidal ideation, intent or plan. No history of service. Currently no feelings of hopelessness, not in an occupation of social isolation, doesnt have multiple medical conditions, no family history of suicide, doesnt have access to firearms. Doesnt have command hallucinations and or psychotic features at this time. Not a anniversary of a loss of a loved one. Currently future orientated. Patient engaged in treatment and compliant with medication. Merits Inpatient Hospitalization: No Clear for Discharge: Adequate Clinical Respons Discharge Planning - Discharge Planning Discharge Plan: Drug/Alcohol Rehab Outpatient Program: Private Clinician(s) Recommendations for Continuing Care: Substance Abuse Counseling Medications: Current Medications Acetaminophen (Tylenol Tab*) 650 mg PO Q4H PRN PRN Reason: for pain; or Temp >101 F Al Hydrox/Mg Hydrox/Simethicone (Maalox Plus*) 30 ml PO Q4H PRN PRN Reason: INDIGESTION Device (Nicotine Mouth Piece*) 1 each INH .USE W/ CARTRIDGE PRN PRN Reason: WITHDRAWAL - NICOTINE Levothyroxine Sodium (Synthroid Tab*) 150 mcg PO DAILY@0600 [facility] Last Admin: 10/09/18 06:46 Dose: 150 mcg Multivitamins (Theragran Tab*) 1 tab PO DAILY [facility] Last Admin: 10/09/18 08:08 Dose: 1 tab Nicotine (Nicotine Patch 21 Mg/24 Hr*) 1 patch TRANSDERM DAILY@0800 [facility] Last Admin: 10/09/18 08:08 Dose: 1 patch Nicotine (Nicotine Inhaler*) 10 mg INH Q2H PRN PRN Reason: CRAVIGNS Last Admin: 10/09/18 06:45 Dose: 10 mg Nicotine Polacrilex (Nicotine Gum*) 2 mg PO Q2H PRN PRN Reason: CRAVING Last Admin: 10/07/18 13:43 Dose: 2 mg Pharmacy Profile Note (Nicotine Patch Removal Note*) 1 note PATCH OFF 2099 [facility] Last Admin: 10/08/18 20:49 Dose: 1 note Thiamine HCl (Vitamin B-1 Tab*) 100 mg PO DAILY [facility] Last Admin: 10/09/18 08:08 Dose: 100 mg Discharge Planning: Prescriptions provided for discharge [] Yes [x] No Follow up care details as per social work arrangements. Patient response to discharge plan: [] eager for discharge [x] agreeable with discharge plan [] ambivalent about discharge [] disagrees with discharge today
== END 2018-10-09 10:10 | DRG 773 ==
LOC: ED 15:06 → BSU 10-02 10:28
PROVIDERS: ADMIT Psychiatry & Neurology Psychiatry; ATTEND Psychiatry & Neurology Psychiatry
DX: F11.20 Opioid dependence, uncomplicated (principal); R45.851 Suicidal ideations; T40.2X2A Poisoning by other opioids, intentional self-harm, initial encounter; Y92.9 Unspecified place or not applicable; F10.10 Alcohol abuse, uncomplicated; Y90.8 Blood alcohol level of 240 mg/100 ml or more; F17.210 Nicotine dependence, cigarettes, uncomplicated; Z59.0 Homelessness; B19.20 Unspecified viral hepatitis C without hepatic coma; E03.9 Hypothyroidism, unspecified; F64.9 Gender identity disorder, unspecified
CPT/HCPCS: 36415; 80320; 99222; 99231; 99233; 99238; 99285; A9270-GY; G0480

== ENCOUNTER 2018-11-06 16:18 | Emergency (ER) | payer MEDICAID ==
[2018-11-06] MEDS ORDERED: NS 0.9% 1000 ML** 1,000 ML IV ONE (17:22)
--- NOTE | 2018-11-06 17:38 | ED ---
Substance Abuse/Use - HPI Summary HPI Summary: Patient is a 28 y/o M level 5 caveat due to alcohol intoxication. Patient was unhelpful during the physical exam and refused to answer any questions. When asked about his mental and physical health by Dr. Fenton, the patient responded with "it doesn't matter" and refused to answer any other questions. He endorses alcohol consumption but denies substance usage. - History Of Current Complaint Chief Complaint: EDSubstanceAbuse Stated Complaint: ETOH PER EMS Time Seen by Provider: 11/06/18 17:10 Hx Obtained From: Patient - minimal Hx From Patient Unobtainable Due To: Other - Level 5 caveat due to alocohol intoxication, uncooperative with examination Ingestion History: Type/Name Of Drug - Alcohol Severity Currently: None Aggravating Factor(s): Nothing Alleviating Factor(s): Nothing Associated Signs And Symptoms: Other: - alcohol intoxicaiton - Allergies/Home Medications Allergies/Adverse Reactions: Allergies Allergy/AdvReac Type Severity Reaction Status Date / Time No Known Allergies Allergy Verified 09/07/18 12:05 Home Medications: Home Medications BuPROPion XL* [Bupropion XL*] 1 tab PO DAILY 11/06/18 [History Confirmed ] Gabapentin 1 cap PO BID 11/06/18 [History Confirmed 11/06/18] PMH/Surg Hx/FS Hx/Imm Hx Previously Healthy: No Endocrine/Hematology History: Reports: Hx Thyroid Disease - Hypothyroidism Denies: Hx Anticoagulant Therapy, Hx Blood Disorders, Hx Blood Transfusions, Hx Bone Marrow Disease, Hx Diabetes, Hx Systemic Lupus Erythematosus, Hx Sickle Cell Disease, Hx Anemia, Hx Unexplained Bleeding, Other Endocrine/Hematological Disorders Cardiovascular History: Reports: Hx Hypertension Denies: Hx Aneurysm, Hx Angina, Hx Angioplasty, Hx Auto Implanted Cardiovert Defib, Hx Cardiac Arrest, Hx Cardiomegaly, Hx Congenital Heart Disease, Hx Congestive Heart Failure, Hx Coronary Artery Disease, Hx Deep Vein Thrombosis, Hx Embolism, Hx Hypercholesterolemia, Hx Hypotension, Hx Pacemaker/ICD, Hx Peripheral Vascular Disease, Hx Rheumatic Fever, Hx Syncope, Hx Valvular Heart Disease, Other Cardiovascular Problems/Disorders Respiratory History: Reports: Hx Pneumonia, Hx Seasonal Allergies Denies: Hx Asthma, Hx Chronic Bronchitis, Hx Chronic Obstructive Pulmonary Disease (COPD), Hx Cystic Fibrosis, Hx Lung Cancer, Hx Pleural Effusion, Hx Pulmonary Edema, Hx Pulmonary Embolism, Hx Sleep Apnea, Other Respiratory Problems/Disorders GI History: Reports: Hx Ulcer Denies: Hx Cirrhosis, Hx Crohn's Disease, Hx Diverticulosis, Hx Gall Bladder Disease, Hx Gastroesophageal Reflux Disease, Hx Gastrointestinal Bleed, Hx Hiatal Hernia, Hx Irritable Bowel, Hx Jaundice, Hx Obstructive Bowel, Hx Ileostomy, Hx Pyloric Stenosis, Other GI Disorders History: Denies: Hx Acute Renal Failure, Hx Benign Prostatic Hyperplasia, Hx Chronic Renal Failure, Hx Dialysis, Hx Kidney Infection, Hx Kidney Stones, Hx Renal Disease, Other Problems/Disorders Musculoskeletal History: Denies: Hx Arthritis, Hx Back Problems, Hx Bursitis, Hx Congenital Bone Abnormalities, Hx Fibromyalgia, Hx Gout, Hx Orthopedic Injury, Hx Osteoporosis, Hx Scoliosis, Hx Tendonitis, Other Musculoskeletal History Sensory History: Denies: Hx Cataracts, Hx Contacts or Glasses, Hx Eye Injury, Hx Eye Prosthesis, Hx Glaucoma, Hx Legally Blind, Hx Macular Degeneration, Hx Vision Problem, Hx Deafness, Hx Hearing Aid, Other Sensory Impairments Opthamlomology History: Denies: Hx Cataracts, Hx Contacts or Glasses, Hx Eye Injury, Hx Eye Prosthesis, Hx Glaucoma, Hx Legally Blind, Hx Macular Degeneration, Hx Vision Problem, Other Sensory Impairments Neurological History: Reports: Hx Headaches, Hx Seizures Denies: Hx Dementia, Hx Developmental Delay, Hx Migraine, Hx Nerve Disease, Hx Spinal Cord Injury, Hx Transient Ischemic Attacks (TIA), Other Neuro Impairments/Disorders Psychiatric History: Reports: Hx Anxiety, Hx Depression, Hx Post Traumatic Stress Disorder, Hx Inpatient Treatment, Hx Community Mental Health Tx, Hx Bipolar Disorder, Hx of Violent Episodes Against Others, Hx Substance Abuse, Other Psychiatric Issues/Disorders Denies: Hx Attention Deficit Hyperactivity Disorder, Hx Eating Disorder, Hx Panic Disorder, Hx Schizophrenia, Hx Suicide Attempt - Cancer History Cancer Type, Location and Year: None reported - Surgical History Surgery Procedure, Year, and Place: none Hx Anesthesia Reactions: No - Immunization History Date of Tetanus Vaccine: Unknown Date of Influenza Vaccine: None Infectious Disease History: No Infectious Disease History: Reports: Hx Hepatitis - Hep C Denies: Hx Clostridium Difficile, Hx Human Immunodeficiency Virus (HIV), Hx of Known/Suspected MRSA, Hx Shingles, Hx Tuberculosis, Hx Known/Suspected VRE, Hx Known/Suspected VRSA, History Other Infectious Disease, Traveled Outside the [place] in Last 30 Days - Family History Known Family History: Positive: Other - cancer Negative: Renal Disease - Social History Alcohol Use: Daily Alcohol Amount: unk Hx Substance Use: Yes Substance Use Type: 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 Substance Use Comment - Amount & Last Used: 09/04, 09/05/18,09/06,09/07,09/08,09/09 2018 Coricidin overdose Hx Tobacco Use: Yes Smoking Status (MU): Current Some Day Smoker Type: Cigarettes Have You Smoked in the Last Year: Yes Review of Systems - ROS Summary Review of Systems Summary: ROS unobtainable due to being a Level 5 caveat due to alcohol intoxication. Positive: Other - alcohol intoxication, reported substance abuse All Other Systems Reviewed And Are Negative: No Physical Exam - Summary Physical Exam Summary: Patient is a Level 5 caveat due to alcohol intoxication VITAL SIGNS: Reviewed. GENERAL: Patient is a well-developed and nourished MALE who is lying comfortable in the stretcher. Patient is not in any acute respiratory distress. Alcohol on breath. HEAD AND FACE: No signs of trauma. No ecchymosis, hematomas or skull depressions. No sinus tenderness. EYES: PERRLA, EOMI x 2, No injected conjunctiva, no nystagmus. EARS: Hearing grossly intact. Ear canals and tympanic membranes are within normal limits. MOUTH: Oropharynx within normal limits. NECK: Supple, trachea is midline, no adenopathy, no JVD, no carotid bruit, no c- spine tenderness, neck with full ROM. CHEST: Symmetric, no tenderness at palpation LUNGS: Clear to auscultation bilaterally. No wheezing or crackles. CVS: Regular rate and rhythm, S1 and S2 present, no murmurs or gallops appreciated. ABDOMEN: Soft, non-tender. No signs of distention. No rebound no guarding, and no masses palpated. Bowel sounds are normal. EXTREMITIES: FROM in all major joints, no edema, no cyanosis or clubbing. NEURO:Somnolent. No acute neurological deficits. Speech is normal and follows commands. SKIN: Dry and warm Triage Information Reviewed: Yes Vital Signs On Initial Exam: Initial Vitals Temp Pulse Resp BP Pulse Ox 97.7 F 103 16 120/82 97 11/06/18 16:25 11/06/18 16:25 11/06/18 16:25 11/06/18 16:25 11/06/18 16:25 Vital Signs Reviewed: Yes Diagnostics - Vital Signs Vital Signs Temp Pulse Resp BP Pulse Ox 11/06/18 16:25 97.7 F 103 16 120/82 97 - Laboratory Result Diagrams: 11/06/18 17:58 11/06/18 17:58 Lab Statement: Any lab studies that have been ordered have been reviewed, and results considered in the medical decision making process. - EKG 1832 Cardiac Rate: NL - 82 BPM EKG Rhythm: Sinus Rhythm ST Segment: Normal Summary of EKG Findings: Normal sinus rhythm of [address] Elevations. Course/Dx - Course Assessment/Plan: Patient is a level 5 caveat due to alcohol intoxication. Patient was unhelpful during the physical exam and refused to answer any questions. When asked about his mental and physical health by Dr. Fenton, the patient responded with "it doesn't matter" and refused to answer any other questions. Blood work without any significant abnormality except for questionable of 8.2, glucose of 109, lactic acid is 2.6, total creatinine kinase is 320. The ED course the patient was given IV fluids, and potassium by mouth. At this point, alcohol level pending, urine toxicology and urine pending. Patient will be signed out to Dr. Slade for further workup and management at shift change. - Diagnoses Differential Diagnosis/HQI/PQRI: Positive: Alcohol Abuse, Depression Provider Diagnoses: Alcohol intoxication Discharge - Sign-Out/Discharge Documenting (check all that apply): Sign-Out Patient Signing out patient TO: Ad Slade - Discharge Plan Condition: Stable Disposition: HOME Patient Education Materials: Alcohol Intoxication (ED) Referrals: Gabriella Fragoso [employer] [Primary Care Provider] - Additional Instructions: Do not drink to excess. You have been given handouts regarding alcohol and drug treatment in the area. Return if worse, new symptoms or other concerns. - Attestation Statements Document Initiated by Scribe: Yes Documenting Scribe: Shaquille Thacker Provider For Whom Mario is Documenting (Include Credential): Gorge Fenton MD Scribe Attestation: Shaquille Brunner, scribed for Gorge Fenton MD on 11/08/18 at 1150. Scribe Documentation Reviewed: Yes Provider Attestation: The documentation as recorded by the scribe, Shaquille Alcala Kolenda accurately reflects the service I personally performed and the decisions made by me, Gorge Fenton MD Status of Mario Document: Viewed
[2018-11-06 18:16] LABS: ABS Basophils 0.1 10^3/ul (0-0.2); ABS Eosinophils 0.2 10^3/ul (0-0.6); ABS Lymphocytes 3.1 10^3/ul (1.0-4.8); ABS Monocytes 1.4 10^3/ul (0-0.8); ABS Neutrophils 5.2 10^3/ul (1.5-7.7); Eosinophil % 1.8 %; Hematocrit 43 % (42-52); Lymphocyte % 31.1 %; Mean Corpuscular HGB Conc 33 g/dL (31-36); Mean Corpuscular Hemoglobin 27 pg (27-31); Mean Corpuscular Volume 83 fL (80-94); Mean Platelet Volume 8.3 fL (7.4-10.4); Nucleated Red Blood Cells % 0.1; Platelet Count 274 10^3/uL (150-450); Red Blood Count 5.17 10^6 /uL (4.18-5.48); Red Cell Distribution Width 17 % (10.5-15); White Blood Count 10.1 10^3/uL (3.5-10.8)
[2018-11-06 18:26] LABS: ALT 43 U/L (7-52); AST 26 U/L (13-39); Albumin 4.2 g/dL (3.2-5.2); Albumin/Globulin Ratio 1.6 (1-3); Alkaline Phosphatase 62 U/L (34-104); Anion Gap 9 mmol/L (2-11); BUN/Creatinine Ratio 3.5 (8-20); Blood Urea Nitrogen 3 mg/dL (6-24); CO2 Carbon Dioxide 25 mmol/L (22-32); Calcium 8.7 mg/dL (8.6-10.3); Chloride 107 mmol/L (101-111); Creatine Kinase 320 U/L (10-223); EGFR African American 128.1 (>60); EGFR Non-African American 105.9 (>60); Globulin 2.6 g/dL (2-4); Glucose 109 mg/dL (70-100); Potassium 3.2 mmol/L (3.5-5.0); Sodium 141 mmol/L (135-145); Total Protein 6.8 g/dL (6.4-8.9)
[2018-11-06] MEDS ORDERED: Potassium Chlor TAB* 20 MEQ TAB.ER PO ONE (18:38)
[2018-11-06 18:42] LABS: Acetaminophen < 15 mcg/mL; Alcohol 224 mg/dL (<10); Salicylate < 2.50 mg/dL (<30)
[2018-11-06 18:51] LABS: TSH (Thyroid Stimulating Horm) 1.01 mcIU/mL (0.34-5.60)
--- NOTE | 2018-11-06 19:12 | ED ---
Progress - Progress Note Progress Note: The patient is a sign-out from Dr. Gorge Fenton MD, to Dr. Ad Slade MD, at change of shift at 1900 pending improvement of EtOH intoxication and disposition. At 1957 re-eval, the patient states he is able to go home. Patient will be discharged home with dx of alcohol intoxication. He will be given instructions for safe alcohol consumption. He agrees with this plan and understands the need for return to the ED for any new or worsening symptoms. Re-Evaluation - Re-Evaluation First Eval Re-Evaluation Time: 19:57 Change: Improved Comment: Patient states he is feeling better and can be discharged home. Course/Dx - Course Course Of Treatment: Patient sobered in the ER. A safe ride was arranged. Discharged in good condition. - Diagnoses Provider Diagnoses: Alcohol intoxication Discharge - Sign-Out/Discharge Documenting (check all that apply): Patient Departure - Patient will be discharged home., Receiving Sign-Out Receiving patient FROM: Gorge Fenton - Patient is a sign-out from Dr. Fenton at shift change pending improvement of EtOH intoxication and sobriety. Patient Received Moderate/Deep Sedation with Procedure: No - Discharge Plan Condition: Stable Disposition: HOME Patient Education Materials: Alcohol Intoxication (ED) Referrals: Gabriella Fragoso [employer] [Primary Care Provider] - Additional Instructions: Do not drink to excess. You have been given handouts regarding alcohol and drug treatment in the area. Return if worse, new symptoms or other concerns. - Billing Disposition and Condition Condition: STABLE Disposition: Home - Attestation Statements Document Initiated by Mario: Yes Documenting Scribe: Nat Ibrahim Provider For Whom Mario is Documenting (Include Credential): Dr. Ad Slade MD Scribe Attestation: Nat Brunner, scribed for Dr. Ad Slade MD on 11/07/18 at 0318. Scribe Documentation Reviewed: Yes Provider Attestation: The documentation as recorded by the Nat fournier accurately reflects the service I personally performed and the decisions made by me, Dr. Ad Slade MD Status of Scribe Document: Viewed
[2018-11-06 20:09] VITALS: BP 104/53
== END 2018-11-06 20:08 | disposition home or self-care (01) ==
LOC: ED 16:18
DX: F10.129 Alcohol abuse with intoxication, unspecified (principal); R56.9 Unspecified convulsions; F32.9 Major depressive disorder, single episode, unspecified; Z72.0 Tobacco use
CPT/HCPCS: 36415; 80053; 80320; 80329; 82550; 83605; 84443; 85025; 86703; 93005; 96360; 99283; A9270-GY; G0480

== ENCOUNTER 2018-11-07 19:41 | Emergency (ER) | payer MEDICAID ==
--- NOTE | 2018-11-07 20:02 | ED ---
Psychiatric Complaint - HPI Summary HPI Summary: The patient is a 28 y/o M presenting to [facility] arriving by ambulance with IPD with a chief complaint of increased SI with EtOH intoxication today. He called 911 and told them that he wanted to drink himself to and wanted to cut himself with a razor. He states he had 6 beers but no other drugs. He reports SI because he "doesn't care anymore," noting that self-inflicted cuts on his thighs. He is not in any pain right now. - History Of Current Complaint Time Seen by Provider: 11/07/18 19:52 Hx Obtained From: Patient Onset/Duration: Lasting Hours, Still Present Timing: Hours Severity Initially: Moderate Severity Currently: Moderate Character: Depressed Aggravating Factor(s): Alcohol Use Alleviating Factor(s): Nothing Related History: Positive For: Prior Psychiatric Issues, Admissions Related To Substance Abuse Has Suicidal: Reports: Thoughts, With A Plan Ingestion History: Type/Name Of Drug - beer, Amount Ingested - 6 - Allergies/Home Medications Allergies/Adverse Reactions: Allergies Allergy/AdvReac Type Severity Reaction Status Date / Time No Known Allergies Allergy Verified 09/07/18 12:05 Home Medications: Home Medications Nicotine GUM* 2 mg PO Q2H PRN 11/08/18 [History Confirmed 11/08/18] PMH/Surg Hx/FS Hx/Imm Hx Endocrine/Hematology History: Reports: Hx Thyroid Disease - Hypothyroidism Denies: Hx Anticoagulant Therapy, Hx Blood Disorders, Hx Blood Transfusions, Hx Bone Marrow Disease, Hx Diabetes, Hx Systemic Lupus Erythematosus, Hx Sickle Cell Disease, Hx Anemia, Hx Unexplained Bleeding, Other Endocrine/Hematological Disorders Cardiovascular History: Reports: Hx Hypertension Denies: Hx Aneurysm, Hx Angina, Hx Angioplasty, Hx Auto Implanted Cardiovert Defib, Hx Cardiac Arrest, Hx Cardiomegaly, Hx Congenital Heart Disease, Hx Congestive Heart Failure, Hx Coronary Artery Disease, Hx Deep Vein Thrombosis, Hx Embolism, Hx Hypercholesterolemia, Hx Hypotension, Hx Pacemaker/ICD, Hx Peripheral Vascular Disease, Hx Rheumatic Fever, Hx Syncope, Hx Valvular Heart Disease, Other Cardiovascular Problems/Disorders Respiratory History: Reports: Hx Pneumonia, Hx Seasonal Allergies Denies: Hx Asthma, Hx Chronic Bronchitis, Hx Chronic Obstructive Pulmonary Disease (COPD), Hx Cystic Fibrosis, Hx Lung Cancer, Hx Pleural Effusion, Hx Pulmonary Edema, Hx Pulmonary Embolism, Hx Sleep Apnea, Other Respiratory Problems/Disorders GI History: Reports: Hx Ulcer Denies: Hx Cirrhosis, Hx Crohn's Disease, Hx Diverticulosis, Hx Gall Bladder Disease, Hx Gastroesophageal Reflux Disease, Hx Gastrointestinal Bleed, Hx Hiatal Hernia, Hx Irritable Bowel, Hx Jaundice, Hx Obstructive Bowel, Hx Ileostomy, Hx Pyloric Stenosis, Other GI Disorders History: Denies: Hx Acute Renal Failure, Hx Benign Prostatic Hyperplasia, Hx Chronic Renal Failure, Hx Dialysis, Hx Kidney Infection, Hx Kidney Stones, Hx Renal Disease, Other Problems/Disorders Musculoskeletal History: Denies: Hx Arthritis, Hx Back Problems, Hx Bursitis, Hx Congenital Bone Abnormalities, Hx Fibromyalgia, Hx Gout, Hx Orthopedic Injury, Hx Osteoporosis, Hx Scoliosis, Hx Tendonitis, Other Musculoskeletal History Sensory History: Denies: Hx Cataracts, Hx Contacts or Glasses, Hx Eye Injury, Hx Eye Prosthesis, Hx Glaucoma, Hx Legally Blind, Hx Macular Degeneration, Hx Vision Problem, Hx Deafness, Hx Hearing Aid, Other Sensory Impairments Opthamlomology History: Denies: Hx Cataracts, Hx Contacts or Glasses, Hx Eye Injury, Hx Eye Prosthesis, Hx Glaucoma, Hx Legally Blind, Hx Macular Degeneration, Hx Vision Problem, Other Sensory Impairments Neurological History: Reports: Hx Headaches, Hx Seizures Denies: Hx Dementia, Hx Developmental Delay, Hx Migraine, Hx Nerve Disease, Hx Spinal Cord Injury, Hx Transient Ischemic Attacks (TIA), Other Neuro Impairments/Disorders Psychiatric History: Reports: Hx Anxiety, Hx Depression, Hx Post Traumatic Stress Disorder, Hx Inpatient Treatment, Hx Community Mental Health Tx, Hx Bipolar Disorder, Hx of Violent Episodes Against Others, Hx Substance Abuse, Other Psychiatric Issues/Disorders Denies: Hx Attention Deficit Hyperactivity Disorder, Hx Eating Disorder, Hx Panic Disorder, Hx Schizophrenia, Hx Suicide Attempt - Cancer History Cancer Type, Location and Year: None reported - Surgical History Surgery Procedure, Year, and Place: none Hx Anesthesia Reactions: No - Immunization History Date of Tetanus Vaccine: Unknown Date of Influenza Vaccine: None Infectious Disease History: Reports: Hx Hepatitis - Hep C Denies: Hx Clostridium Difficile, Hx Human Immunodeficiency Virus (HIV), Hx of Known/Suspected MRSA, Hx Shingles, Hx Tuberculosis, Hx Known/Suspected VRE, Hx Known/Suspected VRSA, History Other Infectious Disease - Family History Known Family History: Positive: Other - cancer Negative: Renal Disease - Social History Alcohol Use: Daily Alcohol Amount: unk Hx Substance Use: Yes Substance Use Type: 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 Substance Use Comment - Amount & Last Used: 09/04, 09/05/18,09/06,09/07,09/08,09/09 2018 Coricidin overdose Hx Tobacco Use: Yes Smoking Status (MU): Current Some Day Smoker Type: Cigarettes Have You Smoked in the Last Year: Yes Review of Systems Positive: Other - self-inflicted cuts on thighs Psychological: Other - EtOH intoxication, SI All Other Systems Reviewed And Are Negative: Yes Physical Exam - Summary Physical Exam Summary: VITAL SIGNS: Reviewed. GENERAL: Patient is a well-developed and nourished male who is lying comfortable in the stretcher. Patient is not in any acute respiratory distress. Alcohol on breath. HEAD AND FACE: No signs of trauma. No ecchymosis, hematomas or skull depressions. No sinus tenderness. EYES: PERRLA, EOMI x 2, No injected conjunctiva, no nystagmus. EARS: Hearing grossly intact. Ear canals and tympanic membranes are within normal limits. MOUTH: Oropharynx within normal limits. NECK: Supple, trachea is midline, no adenopathy, no JVD, no carotid bruit, no c- spine tenderness, neck with full ROM. CHEST: Symmetric, no tenderness at palpation LUNGS: Clear to auscultation bilaterally. No wheezing or crackles. CVS: Regular rate and rhythm, S1 and S2 present, no murmurs or gallops appreciated. ABDOMEN: Soft, non-tender. No signs of distention. No rebound no guarding, and no masses palpated. Bowel sounds are normal. EXTREMITIES: FROM in all major joints, no edema, no cyanosis or clubbing. NEURO: Alert and oriented x 3. No acute neurological deficits. Speech is normal and follows commands. SKIN: Dry and warm. PSYCH: Depressed, quiet, and reports suicidal thoughts with a plan for cutting self. No homicidal thoughts or plan. No signs of psychosis or pressure speech. No tangential speech. Triage Information Reviewed: Yes Vital Signs Reviewed: Yes Diagnostics - Laboratory Result Diagrams: 11/07/18 20:35 11/07/18 20:35 Lab Statement: Any lab studies that have been ordered have been reviewed, and results considered in the medical decision making process. Course/Dx - Course Assessment/Plan: The patient is a 28 y/o M presenting to [facility] arriving by ambulance with IPD with a chief complaint of increased SI with EtOH intoxication today. He called 911 and told them that he wanted to drink himself to and wanted to cut himself with a razor. He states he had 6 beers but no other drugs. He reports SI because he "doesn't care anymore," noting that self-inflicted cuts on his thighs. He is not in any pain right now. Blood test results shows an slight anemia with hemoglobin 13.9 and hematocrit 41. Potassium is 3 for which the patient was given potassium chloride. Glucose is 203, AST 43, and AST is 55. Alcohol level is 275. Urinalysis is negative for UTI , and drug screen is negative. In the ED course, the patient is stable. Patient is resting comfortably. Patient will be signed out to Dr. Abrams for medical clearance and the mental health evaluation. Patient signed out at shift change. Patient is hemodynamically stable. - Differential Dx/Clinical Impression Differential Diagnosis/HQI/PQRI: Positive: Anxiety, Depression, Suicidal Ideation Provider Diagnosis: Alcohol intoxication, Substance induced mood disorder Discharge - Sign-Out/Discharge Documenting (check all that apply): Sign-Out Patient Signing out patient TO: Brayan Richardson - Patient is a sign-out from Dr. Eliceo MD, to Dr. Dylan MD, at change of shift at 2200 pending medical clearance, MHE , and disposition. Patient Received Moderate/Deep Sedation with Procedure: No - Discharge Plan Condition: Stable Disposition: HOME Referrals: Gabriella Fragoso NP [Primary Care Provider] - - Attestation Statements Document Initiated by Mario: Yes Documenting Scribe: Nat Ibrahim Provider For Whom Mario is Documenting (Include Credential): Dr. Gorge Fenton MD Scribe Attestation: I, Nat Ibrahim, scribed for Dr. Gorge Fenotn MD on 11/08/18 at 2134. Scribe Documentation Reviewed: Yes Provider Attestation: The documentation as recorded by the Nat fournier accurately reflects the service I personally performed and the decisions made by me, Dr. Gorge Fenton MD Status of Scribe Document: Viewed
[2018-11-07 20:26] LABS: Urine Appearance Clear; Urine Bilirubin Negative (Negative); Urine Blood Negative (Negative); Urine Color Straw; Urine Glucose Negative (Negative); Urine Ketones Negative (Negative); Urine Nitrite Negative (Negative); Urine Protein Negative (Negative); Urine Specific Gravity 1.004 (1.010-1.030); Urine Urobilinogen Negative (Negative)
[2018-11-07 20:40] LABS: Urine Benzodiazepine Screen None Detected (None Detect); Urine Opiates Screen None Detected (None Detect)
[2018-11-07 20:42] LABS: ABS Basophils 0.1 10^3/ul (0-0.2); ABS Eosinophils 0.2 10^3/ul (0-0.6); ABS Lymphocytes 3.2 10^3/ul (1.0-4.8); ABS Monocytes 1.2 10^3/ul (0-0.8); ABS Neutrophils 5.1 10^3/ul (1.5-7.7); Eosinophil % 1.8 %; Hematocrit 41 % (42-52); Hemoglobin 13.9 g/dL (14.0-18.0); Lymphocyte % 32.5 %; Mean Corpuscular HGB Conc 34 g/dL (31-36); Mean Corpuscular Hemoglobin 28 pg (27-31); Mean Corpuscular Volume 82 fL (80-94); Nucleated Red Blood Cells % 0.1; Platelet Count 269 10^3/uL (150-450); Red Blood Count 5.04 10^6 /uL (4.18-5.48); Red Cell Distribution Width 17 % (10.5-15); White Blood Count 9.7 10^3/uL (3.5-10.8)
[2018-11-07 20:59] LABS: ALT 55 U/L (7-52); AST 43 U/L (13-39); Albumin 3.9 g/dL (3.2-5.2); Albumin/Globulin Ratio 1.6 (1-3); Alkaline Phosphatase 63 U/L (34-104); Anion Gap 10 mmol/L (2-11); BUN/Creatinine Ratio 5.4 (8-20); Blood Urea Nitrogen 4 mg/dL (6-24); CO2 Carbon Dioxide 24 mmol/L (22-32); Calcium 8.9 mg/dL (8.6-10.3); Chloride 107 mmol/L (101-111); EGFR African American 152.4 (>60); EGFR Non-African American 125.9 (>60); Globulin 2.5 g/dL (2-4); Glucose 203 mg/dL (70-100); Sodium 141 mmol/L (135-145); Total Protein 6.4 g/dL (6.4-8.9)
[2018-11-07 21:12] LABS: Acetaminophen < 15 mcg/mL; Alcohol 275 mg/dL (<10); Salicylate < 2.50 mg/dL (<30)
[2018-11-07 21:27] LABS: TSH (Thyroid Stimulating Horm) 1.53 mcIU/mL (0.34-5.60)
--- NOTE | 2018-11-07 22:11 | ED ---
Progress - Progress Note Progress Note: Patient is received as a sign out from Dr. Fenton to Dr. Richardson at 2200 11/07/18 shift end pending sobriety of this patient and MHE. 526 - patient was medically cleared for MHE. Patient is signed out from Dr. Richardson to Dr. Felipe at 0700 11/08/18 shift change pending MHE and disposition of this patient. Re-Evaluation - Re-Evaluation First Eval Re-Evaluation Time: 05:27 Comment: Patient is medically cleared for MHE. Course/Dx - Course Course Of Treatment: Patient is received as a sign out from Dr. Fenton to Dr. Richardson at 2200 11/07/18 shift end pending sobriety of this patient and MHE. 526 - patient was medically cleared for MHE. Patient is signed out from Dr. Richardson to Dr. Felipe at 0700 11/08/18 shift change pending MHE and disposition of this patient. - Diagnoses Provider Diagnoses: Alcohol intoxication, Substance induced mood disorder Discharge - Sign-Out/Discharge Documenting (check all that apply): Sign-Out Patient, Receiving Sign-Out Signing out patient TO: Javed Felipe Receiving patient FROM: Gorge Fenton Patient Received Moderate/Deep Sedation with Procedure: No - Discharge Plan Condition: Stable Disposition: HOME Referrals: Gabriella Fragoso NP [Primary Care Provider] - - Billing Disposition and Condition Condition: STABLE Disposition: Home - Attestation Statements Document Initiated by Mario: Yes Documenting Scribe: SHERWIN HALL Provider For Whom Mario is Documenting (Include Credential): AMELIE RICHARDSON MD Scribe Attestation: SHERWIN Brunner scribed for AMELIE RICHARDSON MD on 11/10/18 at 0826. Scribe Documentation Reviewed: Yes Provider Attestation: The documentation as recorded by the SHERWIN fournier accurately reflects the service I personally performed and the decisions made by , AMELIE RICHARDSON MD Status of Scribe Document: Viewed
--- NOTE | 2018-11-08 07:23 | ED ---
Progress - Progress Note Progress Note: Receiving sign-out from Dr. Richardson at shift change 0700 pending MHE. MHE will discharge the patient with a diagnosis of substance induced mood disorder, per Dr. Madrigal. Psychiatry. This plan was discussed with the patient and he agrees with this plan. Re-Evaluation - Re-Evaluation First Eval Re-Evaluation Time: 05:27 Comment: Patient is medically cleared for MHE. Course/Dx - Course Course Of Treatment: Receiving sign-out from Dr. Richardson at shift change 0700 pending MHE. MHE will discharge the patient with a diagnosis of substance induced mood disorder, per Dr. Madrigal. Psychiatry. This plan was discussed with the patient and he agrees with this plan. - Diagnoses Provider Diagnoses: Alcohol intoxication, Substance induced mood disorder Discharge - Sign-Out/Discharge Documenting (check all that apply): Patient Departure - Discharge, per MHE, Receiving Sign-Out Receiving patient FROM: Brayan Richardson - At shift change 0700 Patient Received Moderate/Deep Sedation with Procedure: No - Discharge Plan Condition: Stable Disposition: HOME Referrals: Gabriella Fragoso NP [Primary Care Provider] - - Billing Disposition and Condition Condition: STABLE Disposition: Home - Attestation Statements Document Initiated by Shelleyiblissy: Yes Documenting Scribe: Dario Hodgson Provider For Whom Mario is Documenting (Include Credential): Javed Felipe MD Scribe Attestation: Dario Brunner scribed for Javed Felipe MD on 11/08/18 at 1244. Scribe Documentation Reviewed: Yes Provider Attestation: The documentation as recorded by the Dario fournier accurately reflects the service I personally performed and the decisions made by Javed mayen MD Status of Scribe Document: Viewed
[2018-11-08] MEDS ORDERED: Nicotine* 4MG (FRUIT FLAVOR) GUM PO PRN (08:47)
[2018-11-08 08:58] VITALS: BP 141/93
== END 2018-11-08 09:05 | disposition home or self-care (01) ==
LOC: ED 19:41
DX: F10.129 Alcohol abuse with intoxication, unspecified (principal); F19.94 Other psychoactive substance use, unspecified with psychoactive substance-induced mood disorder; S71.112A Laceration without foreign body, left thigh, initial encounter; S71.111A Laceration without foreign body, right thigh, initial encounter; X78.9XXA Intentional self-harm by unspecified sharp object, initial encounter; Y92.9 Unspecified place or not applicable; D64.9 Anemia, unspecified; Z72.0 Tobacco use
CPT/HCPCS: 36415; 80053; 80307; 80320; 80329; 81003; 84443; 85025; 99285; G0480

== ENCOUNTER 2018-11-08 19:33 | Emergency (ER) | payer MEDICAID ==
[2018-11-08] MEDS ORDERED: NS 0.9% 1000 ML** 1,000 ML IV ONE (19:44)
--- NOTE | 2018-11-08 19:53 | ED ---
Substance Abuse/Use - HPI Summary HPI Summary: The patient is a 28 y/o M presenting to [facility] arriving by ambulance with a chief complaint of large dose of nutmeg ingestion and EtOH intoxication tonight. He reports that he had approximately 62g of nutmeg and one Four Jarrett tonight. He called 911 because he was afraid of an allergic reactions. EMS reports that the patient was tachycardic in the 110s-120s. He additionally c/o sunburn and auditory hallucinations. Current everyday smoker, daily EtOH, substance use. - History Of Current Complaint Stated Complaint: "INGESTION OF NUTMEG PER EMS" Hx Obtained From: Patient, EMS Onset/Duration of Drug/ETOH Abuse: Hours Ingestion History: Type/Name Of Drug - nutmeg, Four Jarrett, Amount Ingested - 62g of numeg, one Four Jarrett Overdose Characteristics: Oral Timing Of Abuse: Intermittent Severity Initially: Mild Severity Currently: Mild Character: Anxious Aggravating Factor(s): Nothing Alleviating Factor(s): Nothing Associated Signs And Symptoms: Hallucinating - auditory, Intentional Ingestion - of nutmeg, Other: - sunburn - Allergies/Home Medications Allergies/Adverse Reactions: Allergies Allergy/AdvReac Type Severity Reaction Status Date / Time No Known Allergies Allergy Verified 09/07/18 12:05 PMH/Surg Hx/FS Hx/Imm Hx Endocrine/Hematology History: Reports: Hx Thyroid Disease - Hypothyroidism Denies: Hx Anticoagulant Therapy, Hx Blood Disorders, Hx Blood Transfusions, Hx Bone Marrow Disease, Hx Diabetes, Hx Systemic Lupus Erythematosus, Hx Sickle Cell Disease, Hx Anemia, Hx Unexplained Bleeding, Other Endocrine/Hematological Disorders Cardiovascular History: Reports: Hx Hypertension Denies: Hx Aneurysm, Hx Angina, Hx Angioplasty, Hx Auto Implanted Cardiovert Defib, Hx Cardiac Arrest, Hx Cardiomegaly, Hx Congenital Heart Disease, Hx Congestive Heart Failure, Hx Coronary Artery Disease, Hx Deep Vein Thrombosis, Hx Embolism, Hx Hypercholesterolemia, Hx Hypotension, Hx Pacemaker/ICD, Hx Peripheral Vascular Disease, Hx Rheumatic Fever, Hx Syncope, Hx Valvular Heart Disease, Other Cardiovascular Problems/Disorders Respiratory History: Reports: Hx Pneumonia, Hx Seasonal Allergies Denies: Hx Asthma, Hx Chronic Bronchitis, Hx Chronic Obstructive Pulmonary Disease (COPD), Hx Cystic Fibrosis, Hx Lung Cancer, Hx Pleural Effusion, Hx Pulmonary Edema, Hx Pulmonary Embolism, Hx Sleep Apnea, Other Respiratory Problems/Disorders GI History: Reports: Hx Ulcer Denies: Hx Cirrhosis, Hx Crohn's Disease, Hx Diverticulosis, Hx Gall Bladder Disease, Hx Gastroesophageal Reflux Disease, Hx Gastrointestinal Bleed, Hx Hiatal Hernia, Hx Irritable Bowel, Hx Jaundice, Hx Obstructive Bowel, Hx Ileostomy, Hx Pyloric Stenosis, Other GI Disorders History: Denies: Hx Acute Renal Failure, Hx Benign Prostatic Hyperplasia, Hx Chronic Renal Failure, Hx Dialysis, Hx Kidney Infection, Hx Kidney Stones, Hx Renal Disease, Other Problems/Disorders Musculoskeletal History: Denies: Hx Arthritis, Hx Back Problems, Hx Bursitis, Hx Congenital Bone Abnormalities, Hx Fibromyalgia, Hx Gout, Hx Orthopedic Injury, Hx Osteoporosis, Hx Scoliosis, Hx Tendonitis, Other Musculoskeletal History Sensory History: Denies: Hx Cataracts, Hx Contacts or Glasses, Hx Eye Injury, Hx Eye Prosthesis, Hx Glaucoma, Hx Legally Blind, Hx Macular Degeneration, Hx Vision Problem, Hx Deafness, Hx Hearing Aid, Other Sensory Impairments Opthamlomology History: Denies: Hx Cataracts, Hx Contacts or Glasses, Hx Eye Injury, Hx Eye Prosthesis, Hx Glaucoma, Hx Legally Blind, Hx Macular Degeneration, Hx Vision Problem, Other Sensory Impairments Neurological History: Reports: Hx Headaches, Hx Seizures Denies: Hx Dementia, Hx Developmental Delay, Hx Migraine, Hx Nerve Disease, Hx Spinal Cord Injury, Hx Transient Ischemic Attacks (TIA), Other Neuro Impairments/Disorders Psychiatric History: Reports: Hx Anxiety, Hx Depression, Hx Post Traumatic Stress Disorder, Hx Inpatient Treatment, Hx Community Mental Health Tx, Hx Bipolar Disorder, Hx of Violent Episodes Against Others, Hx Substance Abuse, Other Psychiatric Issues/Disorders Denies: Hx Attention Deficit Hyperactivity Disorder, Hx Eating Disorder, Hx Panic Disorder, Hx Schizophrenia, Hx Suicide Attempt - Cancer History Cancer Type, Location and Year: None reported - Surgical History Surgery Procedure, Year, and Place: none Hx Anesthesia Reactions: No - Immunization History Date of Tetanus Vaccine: Unknown Date of Influenza Vaccine: None Infectious Disease History: Reports: Hx Hepatitis - Hep C Denies: Hx Clostridium Difficile, Hx Human Immunodeficiency Virus (HIV), Hx of Known/Suspected MRSA, Hx Shingles, Hx Tuberculosis, Hx Known/Suspected VRE, Hx Known/Suspected VRSA, History Other Infectious Disease - Family History Known Family History: Positive: Other - cancer Negative: Renal Disease - Social History Alcohol Use: Daily Alcohol Amount: unk Hx Substance Use: Yes Substance Use Type: 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 Substance Use Comment - Amount & Last Used: 09/04, 09/05/18,09/06,09/07,09/08,09/09 2018 Coricidin overdose Hx Tobacco Use: Yes Smoking Status (MU): Current Some Day Smoker Type: Cigarettes Have You Smoked in the Last Year: Yes Review of Systems Positive: Other - facial sunburn Psychological: Other - EtOH intoxication, ingestion of large dosage of nutmeg, auditory hallucinations All Other Systems Reviewed And Are Negative: Yes Physical Exam - Summary Physical Exam Summary: VITAL SIGNS: Reviewed. GENERAL: Patient is a well-developed and nourished male who is lying comfortable in the stretcher. Patient is not in any acute respiratory distress. Patient is in very bad hygiene. EtOH on breath. HEAD AND FACE: No signs of trauma. No ecchymosis, hematomas or skull depressions. No sinus tenderness. EYES: PERRLA, EOMI x 2, No injected conjunctiva, no nystagmus. EARS: Hearing grossly intact. Ear canals and tympanic membranes are within normal limits. MOUTH: Oropharynx within normal limits. NECK: Supple, trachea is midline, no adenopathy, no JVD, no carotid bruit, no c- spine tenderness, neck with full ROM. CHEST: Symmetric, no tenderness at palpation LUNGS: Clear to auscultation bilaterally. No wheezing or crackles. CVS: Regular rate and rhythm, S1 and S2 present, no murmurs or gallops appreciated. ABDOMEN: Soft, non-tender. No signs of distention. No rebound no guarding, and no masses palpated. Bowel sounds are normal. EXTREMITIES: FROM in all major joints, no edema, no cyanosis or clubbing. NEURO: Alert and oriented x 3. No acute neurological deficits. Speech is normal and follows commands. SKIN: Dry and warm. Sunburn on face. Triage Information Reviewed: Yes Vital Signs Reviewed: Yes Diagnostics - Laboratory Result Diagrams: 11/08/18 20:26 11/08/18 20:26 Lab Statement: Any lab studies that have been ordered have been reviewed, and results considered in the medical decision making process. - EKG 1940 Cardiac Rate: Tachycardia - 104 BPM EKG Rhythm: Sinus Tachycardia Summary of EKG Findings: Nml axis, no ST elevations Re-Evaluation - Re-Evaluation First Eval Re-Evaluation Time: 21:50 Change: Improved Comment: The patient states he is not suicidal. He reports that he is feeling better and would like to go home. I discussed with him that observation is need at this time. Course/Dx - Course Assessment/Plan: The patient is a 28 y/o M presenting to [facility] arriving by ambulance with a chief complaint of large dose of nutmeg ingestion and EtOH intoxication tonight. He reports that he had approximately 62g of nutmeg and one Four Jarrett tonight. He called 911 because he was afraid of an allergic reactions. EMS reports that the patient was tachycardic in the 110s-120s. He additionally c/o sunburn and auditory hallucinations. Current everyday smoker, daily EtOH, substance use. Blood test results without any significant abnormality except for WBCs of 11, hemoglobin of 13.1, hematocrit of 40, and platelet of 249. Potassium was 2.44 so the patient was given potassium chloride by mouth and IV. Glucose 166, lactic acid is 4.4. Urinalysis is negative for UTI , urine toxicology is also negative. The patient is not suicidal or homicidal. Poison control recommends for the patient to be observed for 6 hours. At this point the patient will be signed out to Dr. Richardson for reassessment and discharge the patient home. Patient is hemolytically stable, and alert and oriented 3. - Diagnoses Provider Diagnoses: Overdose Discharge - Sign-Out/Discharge Documenting (check all that apply): Sign-Out Patient Signing out patient TO: Brayan Richardson - Patient is a sign-out from Dr. Eliceo MD, to Dr. Dylan MD, at change of shift at 2200 pending observation of nutmeg ingestion, improvement of nutmeg and disposition. Patient Received Moderate/Deep Sedation with Procedure: No - Discharge Plan Referrals: Gabriella Fragoso NP [Primary Care Provider] - - Attestation Statements Document Initiated by Scribe: Yes Documenting Scribe: Nat Ibrahim Provider For Whom Mario is Documenting (Include Credential): Dr. Gorge Fenton MD Scribe Attestation: Nat Brunner, scribed for Dr. Gorge Fenton MD on 11/08/18 at 2207. Scribe Documentation Reviewed: Yes Provider Attestation: The documentation as recorded by the Nat fournier accurately reflects the service I personally performed and the decisions made by me, Dr. Gorge Fenton MD Status of Scribe Document: Viewed
[2018-11-08 20:19] LABS: Urine Appearance Clear; Urine Bacteria Absent (Absent); Urine Bilirubin Negative (Negative); Urine Blood Negative (Negative); Urine Color Yellow; Urine Glucose Negative (Negative); Urine Ketones Negative (Negative); Urine Nitrite Negative (Negative); Urine Protein Negative (Negative); Urine Red Blood Cell Absent (Absent); Urine Specific Gravity 1.006 (1.010-1.030); Urine Urobilinogen Negative (Negative); Urine White Blood Cell Trace(0-5/hpf) (Absent)
[2018-11-08 20:38] LABS: ABS Basophils 0.1 10^3/ul (0-0.2); ABS Eosinophils 0.2 10^3/ul (0-0.6); ABS Lymphocytes 2.9 10^3/ul (1.0-4.8); ABS Monocytes 1.1 10^3/ul (0-0.8); ABS Neutrophils 6.8 10^3/ul (1.5-7.7); Eosinophil % 1.6 %; Hematocrit 40 % (42-52); Hemoglobin 13.1 g/dL (14.0-18.0); Lymphocyte % 26.3 %; Mean Corpuscular HGB Conc 33 g/dL (31-36); Mean Corpuscular Hemoglobin 27 pg (27-31); Mean Corpuscular Volume 83 fL (80-94); Mean Platelet Volume 8.2 fL (7.4-10.4); Nucleated Red Blood Cells % 0.1; Platelet Count 249 10^3/uL (150-450); Red Blood Count 4.78 10^6 /uL (4.18-5.48); Red Cell Distribution Width 17 % (10.5-15)
[2018-11-08 20:46] LABS: Urine Benzodiazepine Screen None Detected (None Detect); Urine Opiates Screen None Detected (None Detect)
[2018-11-08 20:48] LABS: ALT 49 U/L (7-52); AST 32 U/L (13-39); Albumin 3.8 g/dL (3.2-5.2); Albumin/Globulin Ratio 1.6 (1-3); Alkaline Phosphatase 65 U/L (34-104); BUN/Creatinine Ratio 8.8 (8-20); Blood Urea Nitrogen 8 mg/dL (6-24); CO2 Carbon Dioxide 24 mmol/L (22-32); Calcium 8.7 mg/dL (8.6-10.3); Chloride 103 mmol/L (101-111); EGFR Non-African American 99.2 (>60); Globulin 2.4 g/dL (2-4); Glucose 166 mg/dL (70-100); Sodium 139 mmol/L (135-145); Total Protein 6.2 g/dL (6.4-8.9)
[2018-11-08 20:51] LABS: Anion Gap 12 mmol/L (2-11); Potassium 2.4 mmol/L (3.5-5.0)
[2018-11-08] MEDS ORDERED: Potassium Chlor TAB* 20 MEQ TAB.ER PO ONE (20:58)
[2018-11-08] MEDS: KCL 10 MEQ/50 ML IVPREMIX* 10 MEQ/50 ML BAG IV SCH ×2 (21:10→21:45)
[2018-11-08 21:17] LABS: Magnesium 1.9 mg/dL (1.9-2.7)
[2018-11-08 21:18] LABS: Acetaminophen < 15 mcg/mL; Alcohol 58 mg/dL (<10); Salicylate < 2.50 mg/dL (<30)
--- NOTE | 2018-11-08 22:25 | ED ---
Progress - Progress Note Progress Note: Pt is a signout from Dr. Fenton at 2200 on 11/08/18 pending evaluation for 6 hours after arrival and subsequent reassessment. Re-Evaluation - Re-Evaluation First Eval Re-Evaluation Time: 01:40 Change: Improved Comment: Upon re-evaluation, the pt states he is agreeable to being discharged and would like to go home. He is stable. Course/Dx - Course Course Of Treatment: Pt is a signout from Dr. Fenton at 2200 on 11/08/18 pending evaluation for 6 hours after arrival and subsequent reassessment. At 0140, the pt is stable and agreeable with discharge. He denies SI. He will be d/c'ed with a dx of overdose. - Diagnoses Provider Diagnoses: Overdose Discharge - Sign-Out/Discharge Documenting (check all that apply): Patient Departure, Receiving Sign-Out Receiving patient FROM: Gorge Fenton Patient Received Moderate/Deep Sedation with Procedure: No - Discharge Plan Condition: Good Disposition: HOME Patient Education Materials: Polysubstance Abuse (ED) Referrals: Gabriella Fragoso NP [Primary Care Provider] - - Billing Disposition and Condition Condition: GOOD Disposition: Home - Attestation Statements Document Initiated by Scribe: Yes Documenting Scribe: Polly Boateng Provider For Whom Mario is Documenting (Include Credential): Brayan Richardson MD. Scribe Attestation: Polly Brunner, robinsoned for Brayan Richardson MD. on 11/13/18 at 1824. Scribe Documentation Reviewed: Yes Provider Attestation: The documentation as recorded by the Polly fournier accurately reflects the service I personally performed and the decisions made by , Brayan Richardson MD. Status of Scribe Document: Viewed
[2018-11-09 01:49] VITALS: BP 122/82
== END 2018-11-09 01:47 | disposition home or self-care (01) ==
LOC: ED 19:33
DX: R00.0 Tachycardia, unspecified (principal); T65.891A Toxic effect of other specified substances, accidental (unintentional), initial encounter; R94.31 Abnormal electrocardiogram [ECG] [EKG]; I10 Essential (primary) hypertension; E03.9 Hypothyroidism, unspecified; F41.9 Anxiety disorder, unspecified; F32.9 Major depressive disorder, single episode, unspecified; F17.210 Nicotine dependence, cigarettes, uncomplicated; Z86.19 Personal history of other infectious and parasitic diseases
CPT/HCPCS: 36415; 80053; 80307; 80320; 80329; 81003; 81015; 83605; 83735; 85025; 87086; 93005; 96360; 96361; 99283; A9270-GY; G0480; J3480

== ENCOUNTER 2018-11-09 13:28 | Emergency (ER) | payer MEDICAID ==
--- NOTE | 2018-11-09 14:01 | ED ---
Substance Abuse/Use - HPI Summary HPI Summary: A 28 y/o male presents to [facility] with a chief complaint of "chest fullness" for the past three weeks. He reports drinking 4 beers and cocaine use today. He also reports some SOB and claims that it feels like his arteries are hardening in his chest. Pt denies any fever, chills, erythema of eyes, sore throat, cough , abdominal pain, N/V, dysuria, hematuria, myalgia, edema, rash, dizziness or SI. - History Of Current Complaint Chief Complaint: EDSubstanceAbuse Stated Complaint: HARDENING OF THE ARTERIES PER EMS Time Seen by Provider: 11/09/18 13:49 Hx Obtained From: Patient, EMS Onset/Duration of Drug/ETOH Abuse: Hours Ingestion History: Type/Name Of Drug - EtOH and cocaine, Amount Ingested - beers, Approximate Time Of Ingestion - today Overdose Characteristics: Oral Timing Of Abuse: Daily Severity Initially: Mild Severity Currently: Mild Aggravating Factor(s): Nothing Alleviating Factor(s): Nothing Associated Signs And Symptoms: Shortness Of Breath, Chest Pain - Allergies/Home Medications Allergies/Adverse Reactions: Allergies Allergy/AdvReac Type Severity Reaction Status Date / Time No Known Allergies Allergy Verified 11/10/18 20:10 PMH/Surg Hx/FS Hx/Imm Hx Endocrine/Hematology History: Reports: Hx Thyroid Disease - Hypothyroidism Denies: Hx Anticoagulant Therapy, Hx Blood Disorders, Hx Blood Transfusions, Hx Bone Marrow Disease, Hx Diabetes, Hx Systemic Lupus Erythematosus, Hx Sickle Cell Disease, Hx Anemia, Hx Unexplained Bleeding, Other Endocrine/Hematological Disorders Cardiovascular History: Reports: Hx Hypertension Denies: Hx Aneurysm, Hx Angina, Hx Angioplasty, Hx Auto Implanted Cardiovert Defib, Hx Cardiac Arrest, Hx Cardiomegaly, Hx Congenital Heart Disease, Hx Congestive Heart Failure, Hx Coronary Artery Disease, Hx Deep Vein Thrombosis, Hx Embolism, Hx Hypercholesterolemia, Hx Hypotension, Hx Pacemaker/ICD, Hx Peripheral Vascular Disease, Hx Rheumatic Fever, Hx Syncope, Hx Valvular Heart Disease, Other Cardiovascular Problems/Disorders Respiratory History: Reports: Hx Pneumonia, Hx Seasonal Allergies Denies: Hx Asthma, Hx Chronic Bronchitis, Hx Chronic Obstructive Pulmonary Disease (COPD), Hx Cystic Fibrosis, Hx Lung Cancer, Hx Pleural Effusion, Hx Pulmonary Edema, Hx Pulmonary Embolism, Hx Sleep Apnea, Other Respiratory Problems/Disorders GI History: Reports: Hx Ulcer Denies: Hx Cirrhosis, Hx Crohn's Disease, Hx Diverticulosis, Hx Gall Bladder Disease, Hx Gastroesophageal Reflux Disease, Hx Gastrointestinal Bleed, Hx Hiatal Hernia, Hx Irritable Bowel, Hx Jaundice, Hx Obstructive Bowel, Hx Ileostomy, Hx Pyloric Stenosis, Other GI Disorders History: Denies: Hx Acute Renal Failure, Hx Benign Prostatic Hyperplasia, Hx Chronic Renal Failure, Hx Dialysis, Hx Kidney Infection, Hx Kidney Stones, Hx Renal Disease, Other Problems/Disorders Musculoskeletal History: Denies: Hx Arthritis, Hx Back Problems, Hx Bursitis, Hx Congenital Bone Abnormalities, Hx Fibromyalgia, Hx Gout, Hx Orthopedic Injury, Hx Osteoporosis, Hx Scoliosis, Hx Tendonitis, Other Musculoskeletal History Sensory History: Denies: Hx Cataracts, Hx Contacts or Glasses, Hx Eye Injury, Hx Eye Prosthesis, Hx Glaucoma, Hx Legally Blind, Hx Macular Degeneration, Hx Vision Problem, Hx Deafness, Hx Hearing Aid, Other Sensory Impairments Opthamlomology History: Denies: Hx Cataracts, Hx Contacts or Glasses, Hx Eye Injury, Hx Eye Prosthesis, Hx Glaucoma, Hx Legally Blind, Hx Macular Degeneration, Hx Vision Problem, Other Sensory Impairments Neurological History: Reports: Hx Headaches, Hx Seizures Denies: Hx Dementia, Hx Developmental Delay, Hx Migraine, Hx Nerve Disease, Hx Spinal Cord Injury, Hx Transient Ischemic Attacks (TIA), Other Neuro Impairments/Disorders Psychiatric History: Reports: Hx Anxiety, Hx Depression, Hx Post Traumatic Stress Disorder, Hx Inpatient Treatment, Hx Community Mental Health Tx, Hx Bipolar Disorder, Hx of Violent Episodes Against Others, Hx Substance Abuse, Other Psychiatric Issues/Disorders Denies: Hx Attention Deficit Hyperactivity Disorder, Hx Eating Disorder, Hx Panic Disorder, Hx Schizophrenia, Hx Suicide Attempt - Cancer History Cancer Type, Location and Year: None reported - Surgical History Surgery Procedure, Year, and Place: none Hx Anesthesia Reactions: No - Immunization History Date of Tetanus Vaccine: Unknown Date of Influenza Vaccine: None Infectious Disease History: Unable to Obtain/Confirm Infectious Disease History: Reports: Hx Hepatitis - Hep C Denies: Hx Clostridium Difficile, Hx Human Immunodeficiency Virus (HIV), Hx of Known/Suspected MRSA, Hx Shingles, Hx Tuberculosis, Hx Known/Suspected VRE, Hx Known/Suspected VRSA, History Other Infectious Disease, Traveled Outside the [place] in Last 30 Days - Family History Known Family History: Positive: Other - cancer Negative: Renal Disease - Social History Alcohol Use: Daily Alcohol Amount: beers Hx Substance Use: Yes Substance Use Type: Reports: Cocaine Substance Use Comment - Amount & Last Used: 09/04, 09/05/18,09/06,09/07,09/08,09/09 2018 Coricidin overdose Hx Tobacco Use: Yes Smoking Status (MU): Heavy Every Day Tobacco Smoker Type: Cigarettes Have You Smoked in the Last Year: Yes Review of Systems Negative: Fever, Chills Negative: Erythema Negative: Sore Throat Positive: Chest Pain - "fullness" Positive: Shortness Of Breath. Negative: Cough Negative: Abdominal Pain, Vomiting, Nausea Negative: dysuria, hematuria Negative: Myalgia, Edema Negative: Rash Neurological: Negative - dizziness Psychological: Other - positive: substance abuse EtOH and cocaine All Other Systems Reviewed And Are Negative: Yes Physical Exam - Summary Physical Exam Summary: Constitutional: Well-developed, Well-nourished, Alert. (-) Distressed Skin: Warm, Dry HENT: Normocephalic; Atraumatic Eyes: Conjunctiva normal Neck: Musculoskeletal ROM normal neck. (-) JVD, (-) Stridor, (-) Tracheal deviation Cardio: Rhythm regular, rate normal, Heart sounds normal; Intact distal pulses; The pedal pulses are 2+ and symmetric. Radial pulses are 2+ and symmetric. (-) Murmur Pulmonary/Chest wall: Effort normal. (-) Respiratory distress, (-) Wheezes, (-) Rales Abd: Soft, (-) tenderness, (-) Distension, (-) Guarding, (-) Rebound Musculoskeletal: (-) Edema Lymph: (-) Cervical adenopathy Neuro: Alert, Oriented x3, speech slurred when he first arrived Psych: Mood and affect Normal Triage Information Reviewed: Yes Vital Signs On Initial Exam: Initial Vitals Temp Pulse Resp BP Pulse Ox 97.4 F 81 18 116/92 99 11/09/18 13:37 11/09/18 13:37 11/09/18 13:37 11/09/18 13:37 11/09/18 13:37 Vital Signs Reviewed: Yes Diagnostics - Vital Signs Vital Signs Temp Pulse Resp BP Pulse Ox 11/09/18 13:37 97.4 F 81 18 116/92 99 - Laboratory Result Diagrams: 11/09/18 13:57 11/09/18 13:57 Lab Statement: Any lab studies that have been ordered have been reviewed, and results considered in the medical decision making process. - EKG 14:05 Cardiac Rate: NL EKG Rhythm: Sinus Rhythm Summary of EKG Findings: NSR at 68 bpm, no STEMI. Re-Evaluation - Re-Evaluation First Eval Re-Evaluation Time: 19:05 Change: Unchanged Comment: The patient is alert, has no current complaint, reports CP constant on his right side for 2 weeks, he has had 2 negative troponins Course/Dx - Course Course Of Treatment: A 28 y/o male presents to [facility] with a chief complaint of "chest fullness" for the past three weeks. He reports drinking 4 beers and cocaine use today. He also reports some SOB and claims that it feels like his arteries are hardening in his chest. The physical exam revealed that he had some slurred speech upon arrival. EKG showed NSR at 68 bpm, no STEMI. Bloodwork , chemistries, urines and toxicology obtained. Serum Alcohol of 198. In the ED course the patient was given one nicotine patch. The patient is alert, has no current complaint, reports CP constant on his right side for 2 weeks, he has had 2 negative troponins. The patient will be discharged and follow up with [facility]. The patient is agreeable with this plan. - Diagnoses Provider Diagnoses: Alcohol intoxication, Chest pain, unspecified Discharge - Sign-Out/Discharge Documenting (check all that apply): Patient Departure - DC Patient Received Moderate/Deep Sedation with Procedure: No - Discharge Plan Condition: Stable Disposition: HOME Patient Education Materials: Chest Pain (DC), Alcohol Intoxication (ED) Referrals: [facility] [Outside] Additional Instructions: RETURN TO THE EMERGENCY DEPARTMENT FOR CHANGING OR WORSENING SYMPTOMS - Billing Disposition and Condition Condition: STABLE Disposition: Home - Attestation Statements Document Initiated by Scribe: Yes Documenting Scribe: Dave Gamboa Provider For Whom Scribe is Documenting (Include Credential): Javed Felipe MD Scribe Attestation: Dave Brunner scribed for Javed Felipe MD on 11/15/18 at 1254. Scribe Documentation Reviewed: Yes Provider Attestation: The documentation as recorded by the Dave fournier accurately reflects the service I personally performed and the decisions made by Javed mayen MD Status of Scribe Document: Viewed
[2018-11-09 14:10] LABS: ABS Basophils 0.1 10^3/ul (0-0.2); ABS Eosinophils 0.1 10^3/ul (0-0.6); ABS Lymphocytes 2.4 10^3/ul (1.0-4.8); ABS Monocytes 0.7 10^3/ul (0-0.8); ABS Neutrophils 4.7 10^3/ul (1.5-7.7); Eosinophil % 1.1 %; Hematocrit 41 % (42-52); Hemoglobin 13.4 g/dL (14.0-18.0); Lymphocyte % 29.7 %; Mean Corpuscular HGB Conc 33 g/dL (31-36); Mean Corpuscular Hemoglobin 27 pg (27-31); Mean Corpuscular Volume 83 fL (80-94); Nucleated Red Blood Cells % 0.1; Platelet Count 239 10^3/uL (150-450); Red Cell Distribution Width 17 % (10.5-15)
[2018-11-09 14:28] LABS: ALT 45 U/L (7-52); AST 31 U/L (13-39); Albumin 3.7 g/dL (3.2-5.2); Albumin/Globulin Ratio 1.5 (1-3); Alkaline Phosphatase 72 U/L (34-104); Anion Gap 8 mmol/L (2-11); BUN/Creatinine Ratio 5.9 (8-20); Blood Urea Nitrogen 6 mg/dL (6-24); CO2 Carbon Dioxide 27 mmol/L (22-32); Calcium 8.6 mg/dL (8.6-10.3); Chloride 105 mmol/L (101-111); EGFR African American 105.2 (>60); Globulin 2.4 g/dL (2-4); Glucose 117 mg/dL (70-100); Potassium 3.6 mmol/L (3.5-5.0); Sodium 140 mmol/L (135-145); Total Protein 6.1 g/dL (6.4-8.9)
[2018-11-09 14:42] LABS: Acetaminophen < 15 mcg/mL; Alcohol 198 mg/dL (<10); Salicylate < 2.50 mg/dL (<30)
[2018-11-09 14:57] LABS: TSH (Thyroid Stimulating Horm) 3.17 mcIU/mL (0.34-5.60)
[2018-11-09 15:56] LABS: Urine Appearance Clear; Urine Bacteria Absent (Absent); Urine Bilirubin Negative (Negative); Urine Blood Negative (Negative); Urine Color Straw; Urine Glucose Negative (Negative); Urine Ketones Negative (Negative); Urine Nitrite Negative (Negative); Urine Protein Negative (Negative); Urine Red Blood Cell Trace(0-2/hpf) (Absent); Urine Specific Gravity 1.004 (1.010-1.030); Urine Urobilinogen Negative (Negative); Urine White Blood Cell Trace(0-5/hpf) (Absent)
[2018-11-09 16:04] LABS: Urine Benzodiazepine Screen None Detected (None Detect); Urine Opiates Screen None Detected (None Detect)
[2018-11-09] MEDS ORDERED: Nicotine PATCH 14 MG/24 HR* PATCH TRANSDERM ONE (16:43)
[2018-11-09 19:47] VITALS: BP 109/73
== END 2018-11-09 19:45 | disposition home or self-care (01) ==
LOC: ED 13:28
DX: F10.129 Alcohol abuse with intoxication, unspecified (principal); Y90.6 Blood alcohol level of 120-199 mg/100 ml; F14.10 Cocaine abuse, uncomplicated; R07.89 Other chest pain; R06.02 Shortness of breath; F17.210 Nicotine dependence, cigarettes, uncomplicated
CPT/HCPCS: 36415; 80053; 80307; 80320; 80329; 81003; 84443; 84484; 85025; 93005; 99285; A9270-GY; G0480

== ENCOUNTER 2018-11-10 19:32 | Emergency (ER) | payer MEDICAID ==
--- NOTE | 2018-11-10 20:06 | ED ---
Substance Abuse/Use - HPI Summary HPI Summary: Pt is a 28 y/o M presenting to the ED brought in by EMS for substance abuse. Per fitter welder, pt snorted 1200mg Gabapentin. He currently has no complaints including myalgia or fever. - History Of Current Complaint Chief Complaint: EDSubstanceAbuse Stated Complaint: OVERDOSE PER EMS Time Seen by Provider: 11/10/18 19:46 Hx Obtained From: Patient Ingestion History: Type/Name Of Drug - Gabapentin, Amount Ingested - 1200mg, Approximate Time Of Ingestion - unknown Overdose Characteristics: Inhalation Timing Of Abuse: Binge Use Severity Initially: Mild Severity Currently: Mild Character: Other - somnolent Aggravating Factor(s): Nothing Alleviating Factor(s): Nothing Related Hx: Prior Drug Abuse Counseling/Admission, Prior Psych Admission - Allergies/Home Medications Allergies/Adverse Reactions: Allergies Allergy/AdvReac Type Severity Reaction Status Date / Time No Known Allergies Allergy Verified 11/10/18 20:10 PMH/Surg Hx/FS Hx/Imm Hx Previously Healthy: No Endocrine/Hematology History: Reports: Hx Thyroid Disease - Hypothyroidism Denies: Hx Anticoagulant Therapy, Hx Blood Disorders, Hx Blood Transfusions, Hx Bone Marrow Disease, Hx Diabetes, Hx Systemic Lupus Erythematosus, Hx Sickle Cell Disease, Hx Anemia, Hx Unexplained Bleeding, Other Endocrine/Hematological Disorders Cardiovascular History: Reports: Hx Hypertension Denies: Hx Aneurysm, Hx Angina, Hx Angioplasty, Hx Auto Implanted Cardiovert Defib, Hx Cardiac Arrest, Hx Cardiomegaly, Hx Congenital Heart Disease, Hx Congestive Heart Failure, Hx Coronary Artery Disease, Hx Deep Vein Thrombosis, Hx Embolism, Hx Hypercholesterolemia, Hx Hypotension, Hx Pacemaker/ICD, Hx Peripheral Vascular Disease, Hx Rheumatic Fever, Hx Syncope, Hx Valvular Heart Disease, Other Cardiovascular Problems/Disorders Respiratory History: Reports: Hx Pneumonia, Hx Seasonal Allergies Denies: Hx Asthma, Hx Chronic Bronchitis, Hx Chronic Obstructive Pulmonary Disease (COPD), Hx Cystic Fibrosis, Hx Lung Cancer, Hx Pleural Effusion, Hx Pulmonary Edema, Hx Pulmonary Embolism, Hx Sleep Apnea, Other Respiratory Problems/Disorders GI History: Reports: Hx Ulcer Denies: Hx Cirrhosis, Hx Crohn's Disease, Hx Diverticulosis, Hx Gall Bladder Disease, Hx Gastroesophageal Reflux Disease, Hx Gastrointestinal Bleed, Hx Hiatal Hernia, Hx Irritable Bowel, Hx Jaundice, Hx Obstructive Bowel, Hx Ileostomy, Hx Pyloric Stenosis, Other GI Disorders History: Denies: Hx Acute Renal Failure, Hx Benign Prostatic Hyperplasia, Hx Chronic Renal Failure, Hx Dialysis, Hx Kidney Infection, Hx Kidney Stones, Hx Renal Disease, Other Problems/Disorders Musculoskeletal History: Denies: Hx Arthritis, Hx Back Problems, Hx Bursitis, Hx Congenital Bone Abnormalities, Hx Fibromyalgia, Hx Gout, Hx Orthopedic Injury, Hx Osteoporosis, Hx Scoliosis, Hx Tendonitis, Other Musculoskeletal History Sensory History: Denies: Hx Cataracts, Hx Contacts or Glasses, Hx Eye Injury, Hx Eye Prosthesis, Hx Glaucoma, Hx Legally Blind, Hx Macular Degeneration, Hx Vision Problem, Hx Deafness, Hx Hearing Aid, Other Sensory Impairments Opthamlomology History: Denies: Hx Cataracts, Hx Contacts or Glasses, Hx Eye Injury, Hx Eye Prosthesis, Hx Glaucoma, Hx Legally Blind, Hx Macular Degeneration, Hx Vision Problem, Other Sensory Impairments Neurological History: Reports: Hx Headaches, Hx Seizures Denies: Hx Dementia, Hx Developmental Delay, Hx Migraine, Hx Nerve Disease, Hx Spinal Cord Injury, Hx Transient Ischemic Attacks (TIA), Other Neuro Impairments/Disorders Psychiatric History: Reports: Hx Anxiety, Hx Depression, Hx Post Traumatic Stress Disorder, Hx Inpatient Treatment, Hx Community Mental Health Tx, Hx Bipolar Disorder, Hx of Violent Episodes Against Others, Hx Substance Abuse, Other Psychiatric Issues/Disorders Denies: Hx Attention Deficit Hyperactivity Disorder, Hx Eating Disorder, Hx Panic Disorder, Hx Schizophrenia, Hx Suicide Attempt - Cancer History Cancer Type, Location and Year: None reported - Surgical History Surgery Procedure, Year, and Place: none Hx Anesthesia Reactions: No - Immunization History Date of Tetanus Vaccine: Unknown Date of Influenza Vaccine: None Infectious Disease History: No Infectious Disease History: Reports: Hx Hepatitis - Hep C Denies: Hx Clostridium Difficile, Hx Human Immunodeficiency Virus (HIV), Hx of Known/Suspected MRSA, Hx Shingles, Hx Tuberculosis, Hx Known/Suspected VRE, Hx Known/Suspected VRSA, History Other Infectious Disease, Traveled Outside the [place] in Last 30 Days - Family History Known Family History: Positive: Other - cancer Negative: Renal Disease - Social History Alcohol Use: Daily Alcohol Amount: beers Hx Substance Use: Yes Substance Use Type: Reports: Cocaine, Prescribed - gabapentin Substance Use Comment - Amount & Last Used: 09/04, 09/05/18,09/06,09/07,09/08,09/09 2018 Coricidin overdose Hx Tobacco Use: Yes Smoking Status (MU): Heavy Every Day Tobacco Smoker Type: Cigarettes Have You Smoked in the Last Year: Yes Review of Systems Negative: Fever Negative: Myalgia All Other Systems Reviewed And Are Negative: Yes Physical Exam - Summary Physical Exam Summary: Appearance: Well-appearing, Well-nourished, lying in bed comfortably Skin: Warm, dry, no obvious rash Eyes: sclera anicteric, no conjunctival pallor ENT: mucous membranes moist, pharynx appears normal Neck: Supple, nontender Respiratory: Clear to auscultation, no signs of respiratory distress Cardiovascular: Normal S1, S2. No murmurs. Normal distal pulses in tibial and radial bilaterally. Abdomen: Soft, nontender, normal active bowel sounds present Musculoskeletal: Normal, Strength/ROM Intact Neurological: A&Ox3, awake and alert, mentation is normal, speech is fluent and appropriate Psychiatric: affect is normal, does not appear anxious or depressed Triage Information Reviewed: Yes Vital Signs On Initial Exam: Initial Vitals Temp Pulse Resp BP Pulse Ox 98.1 F 99 16 122/81 99 11/10/18 19:37 11/10/18 19:37 11/10/18 19:37 11/10/18 19:37 11/10/18 19:37 Vital Signs Reviewed: Yes Diagnostics - Vital Signs Vital Signs Temp Pulse Resp BP Pulse Ox 11/10/18 19:37 98.1 F 99 16 122/81 99 - Laboratory Lab Statement: Any lab studies that have been ordered have been reviewed, and results considered in the medical decision making process. Course/Dx - Course Course Of Treatment: Pt is a 28 y/o M presenting to the ED brought in by EMS for substance abuse. Per fitter welder, pt snorted 1200mg Gabapentin. He currently has no complaints including myalgia or fever. Pt's physical exam is normal. Pt will be signed out to Dr. Fenton with a dx of alcohol intoxication and polysubstance abuse pending sobriety. - Diagnoses Provider Diagnoses: Alcohol intoxication Discharge - Sign-Out/Discharge Documenting (check all that apply): Sign-Out Patient Signing out patient TO: Gorge Fenton Patient Received Moderate/Deep Sedation with Procedure: No - Discharge Plan Condition: Stable Disposition: HOME Patient Education Materials: Alcohol Intoxication (ED) Referrals: Gabriella Fragoso NP [Primary Care Provider] - 3 Days Additional Instructions: FOLLOW UP WITH YOUR PRIMARY CARE PROVIDER WITHIN ONE WEEK. RETURN TO THE ED FOR ANY WORSENING OR NEW SYMPTOMS. - Billing Disposition and Condition Condition: STABLE Disposition: Home - Attestation Statements Document Initiated by Mario: Yes Documenting Scribe: Polly Boateng Provider For Whom Mario is Documenting (Include Credential): Brayan Richardson MD. Scribe Attestation: Polly Brunner scribed for Brayan Richardson MD. on 11/14/18 at 0447. Scribe Documentation Reviewed: Yes Provider Attestation: The documentation as recorded by the Polly fournier accurately reflects the service I personally performed and the decisions made by , Brayan Richardson MD. Status of Scribe Document: Viewed
--- NOTE | 2018-11-11 07:17 | ED ---
Progress - Progress Note Progress Note: This patient was signed out from Dr. Richardson to Dr. Fenton upon shift change at 07 :00 11/11/18 pending sobriety. The patient is now sober and will be discharged home and follow up with his PCP. The patient is agreeable with this plan - EKG/XRAY/CT EKG: NSR - 70 bpm, unchanged from - 11/09/18 Comments: NSR at 70 bpm, no ST elevations, Similar to previous EKG done 11/09/18 Re-Evaluation - Re-Evaluation First Eval Re-Evaluation Time: 11:21 Change: Unchanged Comment: Pt reports some chest pain, an EKG will be ordered. Course/Dx - Course Course Of Treatment: This patient was signed out to Dr. Abrams. He reports that the patient was intoxicated last night. He requests for the patient to be observed for a couple hours and the patient is sober, ambulating his own, and he can be discharged home. Patient developed some chest pain which is sharp in the right side of the chest. EKG was done and shows a normal sinus rhythm without any ST elevations. I believe that the chest pain is mostly chest wall pain therefore the patient will be given an ibuprofen and discharged home with follow-up with primary care physician. At 11:30 the patient is alert and oriented 3, he is sober, he is eating and drinking without any nausea vomiting therefore he will be discharged home with follow-up with PCP. Patient is hemodynamically stable. - Diagnoses Provider Diagnoses: Alcohol intoxication Discharge - Sign-Out/Discharge Documenting (check all that apply): Patient Departure - DC, Receiving Sign-Out Receiving patient FROM: Brayan Richardson Patient Received Moderate/Deep Sedation with Procedure: No - Discharge Plan Condition: Stable Disposition: HOME Patient Education Materials: Alcohol Intoxication (ED) Referrals: Gabriella Fragoso NP [Primary Care Provider] - 3 Days Additional Instructions: FOLLOW UP WITH YOUR PRIMARY CARE PROVIDER WITHIN ONE WEEK. RETURN TO THE ED FOR ANY WORSENING OR NEW SYMPTOMS. - Billing Disposition and Condition Condition: STABLE Disposition: Home - Attestation Statements Document Initiated by Scribe: Yes Documenting Scribe: Dave Gamboa Provider For Whom Scribe is Documenting (Include Credential): Gorge Fenton MD Scribe Attestation: I, Dave Gamboa, scribed for Gorge Fenton MD on 11/11/18 at 1144. Scribe Documentation Reviewed: Yes Provider Attestation: The documentation as recorded by the scribe, Dave Gamboa accurately reflects the service I personally performed and the decisions made by me, Gorge Fenton MD Status of Scribe Document: Viewed
[2018-11-11] MEDS ORDERED: Nicotine PATCH 14 MG/24 HR* PATCH TRANSDERM ONE (09:15)
[2018-11-11] MEDS ORDERED: Ibuprofen TAB* 600 MG PO ONE (11:45)
[2018-11-11 12:41] VITALS: BP 128/93
== END 2018-11-11 12:40 | disposition home or self-care (01) ==
LOC: ED 19:32
DX: F10.129 Alcohol abuse with intoxication, unspecified (principal); F19.10 Other psychoactive substance abuse, uncomplicated; B19.20 Unspecified viral hepatitis C without hepatic coma; F17.210 Nicotine dependence, cigarettes, uncomplicated; E03.9 Hypothyroidism, unspecified; I10 Essential (primary) hypertension
CPT/HCPCS: 93005; 99282; A9270-GY

== ENCOUNTER 2018-11-13 14:09 | Emergency (ER) | payer MEDICAID ==
[2018-11-13 14:17] VITALS: BP 129/92
--- NOTE | 2018-11-13 14:56 | ED ---
Substance Abuse/Use - HPI Summary HPI Summary: Patient is a 28-year-old male with history of alcohol abuse, overdose, and hepatitis C presenting to the ED with a Coricidin overdose. He has been seen here in the ED several times in the past month for same. He has been admitted for this as well as full workup obtained. EMS states they picked him up after he called the ambulance approximately 10 minutes after he ingested the medication which he states is normal for him. He is endorsing chest pain, again which is also normal for him to state when he takes coricidin. He states he takes this daily although has not had access to it in the past 2 days. He states he took 3 packs, also which is normal for him. - History Of Current Complaint Chief Complaint: EDSubstanceAbuse Stated Complaint: OVERDOSE PER EMS Time Seen by Provider: 11/13/18 14:11 Hx Obtained From: Patient, EMS Onset/Duration of Drug/ETOH Abuse: Hours Ingestion History: Type/Name Of Drug - coricidin Overdose Characteristics: Oral Timing Of Abuse: Daily Severity Initially: Moderate Severity Currently: Moderate Aggravating Factor(s): Nothing Alleviating Factor(s): Nothing Associated Signs And Symptoms: Negative - Risk Factor(s) Completed Suicide Risk Factors: Negative - Allergies/Home Medications Allergies/Adverse Reactions: Allergies Allergy/AdvReac Type Severity Reaction Status Date / Time No Known Allergies Allergy Verified 11/10/18 20:10 Home Medications: Home Medications BuPROPion XL* [Bupropion XL*] 300 mg PO DAILY 11/13/18 [History Confirmed ] Gabapentin CAP(*) [Neurontin 400 mg CAP(*)] 400 mg PO BID 11/13/18 [History Confirmed 11/13/18] PMH/Surg Hx/FS Hx/Imm Hx Previously Healthy: Yes Endocrine/Hematology History: Reports: Hx Thyroid Disease - Hypothyroidism Denies: Hx Anticoagulant Therapy, Hx Blood Disorders, Hx Blood Transfusions, Hx Bone Marrow Disease, Hx Diabetes, Hx Systemic Lupus Erythematosus, Hx Sickle Cell Disease, Hx Anemia, Hx Unexplained Bleeding, Other Endocrine/Hematological Disorders Cardiovascular History: Reports: Hx Hypertension Denies: Hx Aneurysm, Hx Angina, Hx Angioplasty, Hx Auto Implanted Cardiovert Defib, Hx Cardiac Arrest, Hx Cardiomegaly, Hx Congenital Heart Disease, Hx Congestive Heart Failure, Hx Coronary Artery Disease, Hx Deep Vein Thrombosis, Hx Embolism, Hx Hypercholesterolemia, Hx Hypotension, Hx Pacemaker/ICD, Hx Peripheral Vascular Disease, Hx Rheumatic Fever, Hx Syncope, Hx Valvular Heart Disease, Other Cardiovascular Problems/Disorders Respiratory History: Reports: Hx Pneumonia, Hx Seasonal Allergies Denies: Hx Asthma, Hx Chronic Bronchitis, Hx Chronic Obstructive Pulmonary Disease (COPD), Hx Cystic Fibrosis, Hx Lung Cancer, Hx Pleural Effusion, Hx Pulmonary Edema, Hx Pulmonary Embolism, Hx Sleep Apnea, Other Respiratory Problems/Disorders GI History: Reports: Hx Ulcer Denies: Hx Cirrhosis, Hx Crohn's Disease, Hx Diverticulosis, Hx Gall Bladder Disease, Hx Gastroesophageal Reflux Disease, Hx Gastrointestinal Bleed, Hx Hiatal Hernia, Hx Irritable Bowel, Hx Jaundice, Hx Obstructive Bowel, Hx Ileostomy, Hx Pyloric Stenosis, Other GI Disorders History: Denies: Hx Acute Renal Failure, Hx Benign Prostatic Hyperplasia, Hx Chronic Renal Failure, Hx Dialysis, Hx Kidney Infection, Hx Kidney Stones, Hx Renal Disease, Other Problems/Disorders Musculoskeletal History: Denies: Hx Arthritis, Hx Back Problems, Hx Bursitis, Hx Congenital Bone Abnormalities, Hx Fibromyalgia, Hx Gout, Hx Orthopedic Injury, Hx Osteoporosis, Hx Scoliosis, Hx Tendonitis, Other Musculoskeletal History Sensory History: Denies: Hx Cataracts, Hx Contacts or Glasses, Hx Eye Injury, Hx Eye Prosthesis, Hx Glaucoma, Hx Legally Blind, Hx Macular Degeneration, Hx Vision Problem, Hx Deafness, Hx Hearing Aid, Other Sensory Impairments Opthamlomology History: Denies: Hx Cataracts, Hx Contacts or Glasses, Hx Eye Injury, Hx Eye Prosthesis, Hx Glaucoma, Hx Legally Blind, Hx Macular Degeneration, Hx Vision Problem, Other Sensory Impairments Neurological History: Reports: Hx Headaches, Hx Seizures Denies: Hx Dementia, Hx Developmental Delay, Hx Migraine, Hx Nerve Disease, Hx Spinal Cord Injury, Hx Transient Ischemic Attacks (TIA), Other Neuro Impairments/Disorders Psychiatric History: Reports: Hx Anxiety, Hx Depression, Hx Post Traumatic Stress Disorder, Hx Inpatient Treatment, Hx Community Mental Health Tx, Hx Bipolar Disorder, Hx of Violent Episodes Against Others, Hx Substance Abuse, Other Psychiatric Issues/Disorders Denies: Hx Attention Deficit Hyperactivity Disorder, Hx Eating Disorder, Hx Panic Disorder, Hx Schizophrenia, Hx Suicide Attempt - Cancer History Cancer Type, Location and Year: None reported - Surgical History Surgery Procedure, Year, and Place: none Hx Anesthesia Reactions: No - Immunization History Date of Tetanus Vaccine: Unknown Date of Influenza Vaccine: None Infectious Disease History: No Infectious Disease History: Reports: Hx Hepatitis - Hep C Denies: Hx Clostridium Difficile, Hx Human Immunodeficiency Virus (HIV), Hx of Known/Suspected MRSA, Hx Shingles, Hx Tuberculosis, Hx Known/Suspected VRE, Hx Known/Suspected VRSA, History Other Infectious Disease, Traveled Outside the [place] in Last 30 Days - UNKNOWN - Family History Known Family History: Positive: Other - cancer Negative: Renal Disease - Social History Occupation: Unemployed Lives: Alone - homeless Alcohol Use: Daily Alcohol Amount: beers Hx Substance Use: Yes Substance Use Type: Reports: Cocaine, Prescribed Substance Use Comment - Amount & Last Used: 09/04, 09/05/18,09/06,09/07,09/08,09/09 2018 Coricidin overdose Hx Tobacco Use: Yes Smoking Status (MU): Heavy Every Day Tobacco Smoker Type: Cigarettes Have You Smoked in the Last Year: Yes Review of Systems Negative: Fever, Chills, Fatigue, Skin Diaphoresis Negative: Dental Pain, Sore Throat Positive: Chest Pain. Negative: Palpitations Negative: Shortness Of Breath, Cough Negative: Vomiting, Nausea Negative: Myalgia Negative: Rash Neurological: Negative All Other Systems Reviewed And Are Negative: Yes Physical Exam Triage Information Reviewed: Yes Vital Signs On Initial Exam: Initial Vitals Temp Pulse Resp BP Pulse Ox 97.5 F 99 18 129/92 97 11/13/18 14:14 11/13/18 14:14 11/13/18 14:14 11/13/18 14:14 11/13/18 14:14 Vital Signs Reviewed: Yes Appearance: Positive: Ill-Appearing - appears fatigued Skin: Positive: Skin Color Reflects Adequate Perfusion Head/Face: Positive: Normal Head/Face Inspection Eyes: Positive: EOMI, Conjunctiva Clear Neck: Positive: Supple, No Lymphadenopathy Respiratory/Lung Sounds: Positive: Clear to Auscultation, Breath Sounds Present Cardiovascular: Positive: Pulses are Symmetrical in both Upper and Lower Extremities, Tachycardia Neurological: Positive: Alert, Oriented to Person Place, Time, Speech Normal Psychiatric: Positive: Affect/Mood Appropriate Diagnostics - Vital Signs Vital Signs Temp Pulse Resp BP Pulse Ox 11/13/18 14:46 97.5 F 99 18 129/92 97 11/13/18 14:14 97.5 F 99 18 129/92 97 - Laboratory Lab Statement: Any lab studies that have been ordered have been reviewed, and results considered in the medical decision making process. Course/Dx - Course Course Of Treatment: During this was treatment, the patient is evaluated for Coricidin overdose. Denies taking alcohol. Endorses CP. Records, he states this often to obtain a short stay or an admission into the hospital. An EKG was obtained which shows sinus tachycardia at 102, however otherwise normal. Patient is discharged at this time. He is discharged with polysubstance abuse and overdose. - Diagnoses Provider Diagnoses: Overdose Discharge - Sign-Out/Discharge Documenting (check all that apply): Patient Departure Patient Received Moderate/Deep Sedation with Procedure: No - Discharge Plan Condition: Stable Disposition: HOME Referrals: Gabriella Fragoso NP [Primary Care Provider] - - Billing Disposition and Condition Condition: STABLE Disposition: Home
== END 2018-11-13 14:46 | disposition home or self-care (01) ==
LOC: ED 14:09
DX: T39.1X1A Poisoning by 4-Aminophenol derivatives, accidental (unintentional), initial encounter (principal); B19.20 Unspecified viral hepatitis C without hepatic coma; Y92.9 Unspecified place or not applicable; I10 Essential (primary) hypertension; F17.210 Nicotine dependence, cigarettes, uncomplicated; R07.9 Chest pain, unspecified
CPT/HCPCS: 93005; 99282

== ENCOUNTER 2018-11-13 17:48 | Emergency (ER) | payer MEDICAID ==
[2018-11-13] MEDS ORDERED: NS 0.9% 1000 ML** 1,000 ML IV ONE (17:56)
--- NOTE | 2018-11-13 17:59 | ED ---
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 Per EMS: Patient took 32 pills of Coricidin 30mg. Patient is homeless and a frequent visitor to the ED for overdose. Patient was seen earlier this date for overdose. - History Of Current Complaint Stated Complaint: 941 PER EMS Time Seen by Provider: 11/13/18 17:51 Hx Obtained From: EMS, Medical Records Hx From Patient Unobtainable Due To: Altered Mental Status - OD Ingestion History: Type/Name Of Drug - Coricidin, Amount Ingested - 32 pills, 30 mg Overdose Characteristics: Oral - Allergies/Home Medications Allergies/Adverse Reactions: Allergies Allergy/AdvReac Type Severity Reaction Status Date / Time No Known Allergies Allergy Verified 11/10/18 20:10 PMH/Surg Hx/FS Hx/Imm Hx Previously Healthy: No Endocrine/Hematology History: Reports: Hx Thyroid Disease - Hypothyroidism Denies: Hx Anticoagulant Therapy, Hx Blood Disorders, Hx Blood Transfusions, Hx Bone Marrow Disease, Hx Diabetes, Hx Systemic Lupus Erythematosus, Hx Sickle Cell Disease, Hx Anemia, Hx Unexplained Bleeding, Other Endocrine/Hematological Disorders Cardiovascular History: Reports: Hx Hypertension Denies: Hx Aneurysm, Hx Angina, Hx Angioplasty, Hx Auto Implanted Cardiovert Defib, Hx Cardiac Arrest, Hx Cardiomegaly, Hx Congenital Heart Disease, Hx Congestive Heart Failure, Hx Coronary Artery Disease, Hx Deep Vein Thrombosis, Hx Embolism, Hx Hypercholesterolemia, Hx Hypotension, Hx Pacemaker/ICD, Hx Peripheral Vascular Disease, Hx Rheumatic Fever, Hx Syncope, Hx Valvular Heart Disease, Other Cardiovascular Problems/Disorders Respiratory History: Reports: Hx Pneumonia, Hx Seasonal Allergies Denies: Hx Asthma, Hx Chronic Bronchitis, Hx Chronic Obstructive Pulmonary Disease (COPD), Hx Cystic Fibrosis, Hx Lung Cancer, Hx Pleural Effusion, Hx Pulmonary Edema, Hx Pulmonary Embolism, Hx Sleep Apnea, Other Respiratory Problems/Disorders GI History: Reports: Hx Ulcer Denies: Hx Cirrhosis, Hx Crohn's Disease, Hx Diverticulosis, Hx Gall Bladder Disease, Hx Gastroesophageal Reflux Disease, Hx Gastrointestinal Bleed, Hx Hiatal Hernia, Hx Irritable Bowel, Hx Jaundice, Hx Obstructive Bowel, Hx Ileostomy, Hx Pyloric Stenosis, Other GI Disorders History: Denies: Hx Acute Renal Failure, Hx Benign Prostatic Hyperplasia, Hx Chronic Renal Failure, Hx Dialysis, Hx Kidney Infection, Hx Kidney Stones, Hx Renal Disease, Other Problems/Disorders Musculoskeletal History: Denies: Hx Arthritis, Hx Back Problems, Hx Bursitis, Hx Congenital Bone Abnormalities, Hx Fibromyalgia, Hx Gout, Hx Orthopedic Injury, Hx Osteoporosis, Hx Scoliosis, Hx Tendonitis, Other Musculoskeletal History Sensory History: Denies: Hx Cataracts, Hx Contacts or Glasses, Hx Eye Injury, Hx Eye Prosthesis, Hx Glaucoma, Hx Legally Blind, Hx Macular Degeneration, Hx Vision Problem, Hx Deafness, Hx Hearing Aid, Other Sensory Impairments Opthamlomology History: Denies: Hx Cataracts, Hx Contacts or Glasses, Hx Eye Injury, Hx Eye Prosthesis, Hx Glaucoma, Hx Legally Blind, Hx Macular Degeneration, Hx Vision Problem, Other Sensory Impairments Neurological History: Reports: Hx Headaches, Hx Seizures Denies: Hx Dementia, Hx Developmental Delay, Hx Migraine, Hx Nerve Disease, Hx Spinal Cord Injury, Hx Transient Ischemic Attacks (TIA), Other Neuro Impairments/Disorders Psychiatric History: Reports: Hx Anxiety, Hx Depression, Hx Post Traumatic Stress Disorder, Hx Inpatient Treatment, Hx Community Mental Health Tx, Hx Bipolar Disorder, Hx of Violent Episodes Against Others, Hx Substance Abuse, Other Psychiatric Issues/Disorders Denies: Hx Attention Deficit Hyperactivity Disorder, Hx Eating Disorder, Hx Panic Disorder, Hx Schizophrenia, Hx Suicide Attempt - Cancer History Cancer Type, Location and Year: None reported - Surgical History Surgery Procedure, Year, and Place: none Hx Anesthesia Reactions: No - Immunization History Date of Tetanus Vaccine: Unknown Date of Influenza Vaccine: None Infectious Disease History: Reports: Hx Hepatitis - Hep C Denies: Hx Clostridium Difficile, Hx Human Immunodeficiency Virus (HIV), Hx of Known/Suspected MRSA, Hx Shingles, Hx Tuberculosis, Hx Known/Suspected VRE, Hx Known/Suspected VRSA, History Other Infectious Disease - Family History Known Family History: Positive: Other - cancer Negative: Renal Disease Family History: father - ETOH - Social History Occupation: Unemployed Lives: Alone Alcohol Use: Daily Alcohol Amount: beers Hx Substance Use: Yes Substance Use Type: Reports: Cocaine, Prescribed Substance Use Comment - Amount & Last Used: 09/04, 09/05/18,09/06,09/07,09/08,09/09 2018 Coricidin overdose Hx Tobacco Use: Yes Smoking Status (MU): Heavy Every Day Tobacco Smoker Type: Cigarettes Have You Smoked in the Last Year: Yes Review of Systems - ROS Summary Review of Systems Summary: LEVEL 5 CAVEAT: ROS LIMITED DUE TO PATIENT CONDITION, OVERDOSE All Other Systems Reviewed And Are Negative: No Physical Exam - Summary Physical Exam Summary: Appearance: no pain distress, poorly kempt, poorly responsive Skin: warm, dry, reflects adequate perfusion; no signs of self-injury Head/face: normal Eyes: EOMI, pupils are dilated ENT: mucous membranes moist Neck: supple, non-tender Respiratory: CTA, breath sounds present, protecting airway Cardiovascular: tachycardic, pulses symmetrical Abdomen: non-tender, soft Bowel Sounds: present Musculoskeletal: normal, strength/ROM intact; no signs of self-injury Neuro: sensory motor intact Triage Information Reviewed: Yes Vital Signs Reviewed: Yes Course/Dx - Course Course Of Treatment: Nurses' notes reviewed. Patient is extremely well-known in the ER having presented with multiple different intoxication and mental health issues. Today he has taken Coricidin and this is his second presentation of the day. He is quite intoxicated at present. Occasionally he will asked to be referred to as Siria, but that has not been the case today. Initiated seizure precautions, hydrating him and will monitor. PATIENT WILL BE SIGNED OUT TO DR. RICHARDSON AT SHIFT CHANGE PENDING RE-EVAL AND DISPO. - Diagnoses Provider Diagnoses: Overdose of common cold drug, History of seizure, Polysubstance abuse, Homelessness Discharge - Sign-Out/Discharge Documenting (check all that apply): Sign-Out Patient Signing out patient TO: Brayan Richardson - pending re-eval and dispo Patient Received Moderate/Deep Sedation with Procedure: No - Discharge Plan Condition: Guarded Referrals: Gabriella Fragoso NP [Primary Care Provider] - - Billing Disposition and Condition Condition: GUARDED - Attestation Statements Document Initiated by Scribe: Yes Documenting Scribe: Randa Bell Provider For Whom Scribe is Documenting (Include Credential): Dr. Ad Slade MD Scribe Attestation: Randa Brunner scribed for Dr. Ad Slade MD on 11/13/18 at 1813. Scribe Documentation Reviewed: Yes Provider Attestation: The documentation as recorded by the Randa fournier accurately reflects the service I personally performed and the decisions made by me, Dr. Ad Slade MD Status of Scribe Document: Viewed
[2018-11-13 18:15] LABS: ABS Basophils 0.1 10^3/ul (0-0.2); ABS Eosinophils 0.1 10^3/ul (0-0.6); ABS Lymphocytes 1.8 10^3/ul (1.0-4.8); ABS Monocytes 0.9 10^3/ul (0-0.8); ABS Neutrophils 7.4 10^3/ul (1.5-7.7); Eosinophil % 0.8 %; Hematocrit 41 % (42-52); Hemoglobin 13.4 g/dL (14.0-18.0); Lymphocyte % 17.7 %; Mean Corpuscular HGB Conc 33 g/dL (31-36); Mean Corpuscular Hemoglobin 27 pg (27-31); Mean Corpuscular Volume 84 fL (80-94); Mean Platelet Volume 8.4 fL (7.4-10.4); Nucleated Red Blood Cells % 0.1; Platelet Count 168 10^3/uL (150-450); Red Blood Count 4.93 10^6 /uL (4.18-5.48); Red Cell Distribution Width 18 % (10.5-15); White Blood Count 10.2 10^3/uL (3.5-10.8)
[2018-11-13 18:35] LABS: Anion Gap 8 mmol/L (2-11); BUN/Creatinine Ratio 9.9 (8-20); Blood Urea Nitrogen 11 mg/dL (6-24); CO2 Carbon Dioxide 23 mmol/L (22-32); Calcium 8.8 mg/dL (8.6-10.3); Chloride 108 mmol/L (101-111); Creatine Kinase 132 U/L (10-223); EGFR African American 95.4 (>60); EGFR Non-African American 78.9 (>60); Glucose 95 mg/dL (70-100); Potassium 3.5 mmol/L (3.5-5.0); Sodium 139 mmol/L (135-145)
[2018-11-13] MEDS ORDERED: NS 0.9% 1000 ML** 1,000 ML IV.FLUID IV ONE (19:08)
[2018-11-13 19:29] LABS: Alcohol < 10 mg/dL (<10)
--- NOTE | 2018-11-13 19:43 | ED ---
Progress - Progress Note Progress Note: Receiving sign out from Dr. Slade at shift change 1900 pending sobriety, reevaluation, and disposition. EKG at 1920 reveals sinus tachycardia at 111 BPM. P waves, QRS complex, and T waves are within normal limits, T waves and intervals are normal, no ischemic changes. Patient will be discharged pending sobriety. This plan was discussed with the patient and he was agreeable with this plan. Course/Dx - Course Course Of Treatment: Receiving sign out from Dr. Slade at shift change 1900 pending sobriety, reevaluation, and disposition. EKG at 1920 reveals sinus tachycardia at 111 BPM. P waves, QRS complex, and T waves are within normal limits, T waves and intervals are normal, no ischemic changes. Patient will be discharged pending sobriety. This plan was discussed with the patient and he was agreeable with this plan. - Diagnoses Provider Diagnoses: Polysubstance abuse Discharge - Sign-Out/Discharge Documenting (check all that apply): Patient Departure - Discharge Patient Received Moderate/Deep Sedation with Procedure: No - Discharge Plan Condition: Guarded Disposition: HOME Patient Education Materials: Polysubstance Abuse (ED) Referrals: [facility] [Outside] Gabriella Fragoso [employer] [Primary Care Provider] - - Billing Disposition and Condition Condition: GUARDED Disposition: Home - Attestation Statements Document Initiated by Mario: Yes Documenting Scribe: Dario Hodgson Provider For Whom Mario is Documenting (Include Credential): Brayan Richardson MD Scribe Attestation: Dario Brunner scribed for Brayan Richardson MD on 11/14/18 at 2054. Scribe Documentation Reviewed: Yes Provider Attestation: The documentation as recorded by the Dario fournier accurately reflects the service I personally performed and the decisions made by me, Brayan Richardson MD Status of Scriblissy Document: Viewed
[2018-11-13 20:08] LABS: Urine Appearance Clear; Urine Bilirubin Negative (Negative); Urine Blood Negative (Negative); Urine Color Straw; Urine Glucose Negative (Negative); Urine Ketones Negative (Negative); Urine Nitrite Negative (Negative); Urine Protein Negative (Negative); Urine Specific Gravity 1.003 (1.010-1.030); Urine Urobilinogen Negative (Negative)
[2018-11-13 20:13] LABS: Activated Partial Thrombo Time 27.6 seconds (26.0-36.3); INR 1.15 (0.82-1.09)
[2018-11-14 05:21] LABS: Acetaminophen < 15 mcg/mL
[2018-11-14 06:26] VITALS: BP 128/92
== END 2018-11-14 06:20 | disposition home or self-care (01) ==
LOC: ED 17:48
DX: F19.10 Other psychoactive substance abuse, uncomplicated (principal)
CPT/HCPCS: 36415; 71045; 80048; 80320; 80329; 81003; 82550; 83605; 84484; 85025; 85610; 85730; 87040; 93005; 99284; G0480

== ENCOUNTER 2018-11-14 12:46 | Emergency (ER) | payer MEDICAID ==
--- NOTE | 2018-11-14 14:42 | ED ---
Substance Abuse/Use - HPI Summary HPI Summary: Patient is a 28-year-old male presenting to the ED with a coricidin overdose. He has been here for the past 7 days for same. He states he takes the medication and immediately calls the ambulance to bring him here. He offers no complaints at this time. Patient is obviously intoxicated. Unable to give a full history. - History Of Current Complaint Chief Complaint: EDOverdose Stated Complaint: OVERDOSE PER EMS Time Seen by Provider: 11/14/18 12:52 Hx Obtained From: Patient Overdose Characteristics: Oral Timing Of Abuse: Daily Severity Initially: Moderate Severity Currently: Moderate Associated Signs And Symptoms: Confused, Altered Mental Status, Intentional Ingestion - Risk Factor(s) Completed Suicide Risk Factors: Male, White Serbian - Allergies/Home Medications Allergies/Adverse Reactions: Allergies Allergy/AdvReac Type Severity Reaction Status Date / Time No Known Allergies Allergy Verified 11/10/18 20:10 PMH/Surg Hx/FS Hx/Imm Hx Previously Healthy: Yes Endocrine/Hematology History: Reports: Hx Thyroid Disease - Hypothyroidism Denies: Hx Anticoagulant Therapy, Hx Blood Disorders, Hx Blood Transfusions, Hx Bone Marrow Disease, Hx Diabetes, Hx Systemic Lupus Erythematosus, Hx Sickle Cell Disease, Hx Anemia, Hx Unexplained Bleeding, Other Endocrine/Hematological Disorders Cardiovascular History: Reports: Hx Hypertension Denies: Hx Aneurysm, Hx Angina, Hx Angioplasty, Hx Auto Implanted Cardiovert Defib, Hx Cardiac Arrest, Hx Cardiomegaly, Hx Congenital Heart Disease, Hx Congestive Heart Failure, Hx Coronary Artery Disease, Hx Deep Vein Thrombosis, Hx Embolism, Hx Hypercholesterolemia, Hx Hypotension, Hx Pacemaker/ICD, Hx Peripheral Vascular Disease, Hx Rheumatic Fever, Hx Syncope, Hx Valvular Heart Disease, Other Cardiovascular Problems/Disorders Respiratory History: Reports: Hx Pneumonia, Hx Seasonal Allergies Denies: Hx Asthma, Hx Chronic Bronchitis, Hx Chronic Obstructive Pulmonary Disease (COPD), Hx Cystic Fibrosis, Hx Lung Cancer, Hx Pleural Effusion, Hx Pulmonary Edema, Hx Pulmonary Embolism, Hx Sleep Apnea, Other Respiratory Problems/Disorders GI History: Reports: Hx Ulcer Denies: Hx Cirrhosis, Hx Crohn's Disease, Hx Diverticulosis, Hx Gall Bladder Disease, Hx Gastroesophageal Reflux Disease, Hx Gastrointestinal Bleed, Hx Hiatal Hernia, Hx Irritable Bowel, Hx Jaundice, Hx Obstructive Bowel, Hx Ileostomy, Hx Pyloric Stenosis, Other GI Disorders History: Denies: Hx Acute Renal Failure, Hx Benign Prostatic Hyperplasia, Hx Chronic Renal Failure, Hx Dialysis, Hx Kidney Infection, Hx Kidney Stones, Hx Renal Disease, Other Problems/Disorders Musculoskeletal History: Denies: Hx Arthritis, Hx Back Problems, Hx Bursitis, Hx Congenital Bone Abnormalities, Hx Fibromyalgia, Hx Gout, Hx Orthopedic Injury, Hx Osteoporosis, Hx Scoliosis, Hx Tendonitis, Other Musculoskeletal History Sensory History: Denies: Hx Cataracts, Hx Contacts or Glasses, Hx Eye Injury, Hx Eye Prosthesis, Hx Glaucoma, Hx Legally Blind, Hx Macular Degeneration, Hx Vision Problem, Hx Deafness, Hx Hearing Aid, Other Sensory Impairments Opthamlomology History: Denies: Hx Cataracts, Hx Contacts or Glasses, Hx Eye Injury, Hx Eye Prosthesis, Hx Glaucoma, Hx Legally Blind, Hx Macular Degeneration, Hx Vision Problem, Other Sensory Impairments Neurological History: Reports: Hx Headaches, Hx Seizures Denies: Hx Dementia, Hx Developmental Delay, Hx Migraine, Hx Nerve Disease, Hx Spinal Cord Injury, Hx Transient Ischemic Attacks (TIA), Other Neuro Impairments/Disorders Psychiatric History: Reports: Hx Anxiety, Hx Depression, Hx Post Traumatic Stress Disorder, Hx Inpatient Treatment, Hx Community Mental Health Tx, Hx Bipolar Disorder, Hx of Violent Episodes Against Others, Hx Substance Abuse, Other Psychiatric Issues/Disorders Denies: Hx Attention Deficit Hyperactivity Disorder, Hx Eating Disorder, Hx Panic Disorder, Hx Schizophrenia, Hx Suicide Attempt - Cancer History Cancer Type, Location and Year: None reported - Surgical History Surgery Procedure, Year, and Place: none Hx Anesthesia Reactions: No - Immunization History Date of Tetanus Vaccine: Unknown Date of Influenza Vaccine: None Hx Pertussis Vaccination: No Immunizations Up to Date: Yes Infectious Disease History: No Infectious Disease History: Reports: Hx Hepatitis - Hep C Denies: Hx Clostridium Difficile, Hx Human Immunodeficiency Virus (HIV), Hx of Known/Suspected MRSA, Hx Shingles, Hx Tuberculosis, Hx Known/Suspected VRE, Hx Known/Suspected VRSA, History Other Infectious Disease, Traveled Outside the [place] in Last 30 Days - Family History Known Family History: Positive: Other - cancer Negative: Renal Disease Family History: father - ETOH - Social History Occupation: Unemployed Lives: Alone - homeless Alcohol Use: Daily Alcohol Amount: beers Hx Substance Use: Yes Substance Use Type: Reports: Cocaine, Prescribed, Other Substance Use Comment - Amount & Last Used: 09/04, 09/05/18,09/06,09/07,09/08,09/09 2018 Coricidin overdose Hx Tobacco Use: Yes Smoking Status (MU): Heavy Every Day Tobacco Smoker Type: Cigarettes Have You Smoked in the Last Year: Yes Review of Systems Negative: Fever, Chills, Fatigue, Skin Diaphoresis Negative: Diplopia Negative: Sore Throat Negative: Chest Pain Negative: Shortness Of Breath, Cough Negative: Bruising Negative: Anxious, Depressed All Other Systems Reviewed And Are Negative: Yes Physical Exam Triage Information Reviewed: Yes Vital Signs On Initial Exam: Initial Vitals Temp Pulse Resp BP Pulse Ox 99.3 F 101 24 139/101 96 11/14/18 12:51 11/14/18 12:51 11/14/18 12:51 11/14/18 12:51 11/14/18 12:51 Completion Of Physical Exam Limited Due To: Altered Mental Status Appearance: Positive: Ill-Appearing Skin: Positive: Dry Head/Face: Positive: Normal Head/Face Inspection Eyes: Positive: Other: - mydriasis Neck: Positive: No Lymphadenopathy Respiratory/Lung Sounds: Positive: Clear to Auscultation Cardiovascular: Positive: Tachycardia Neurological: Positive: Slurred Speech Psychiatric: Positive: Other - patient denies si/hi Diagnostics - Vital Signs Vital Signs Temp Pulse Resp BP Pulse Ox 11/14/18 13:51 153/98 11/14/18 13:28 93 33 96 11/14/18 13:22 92 31 133/90 96 11/14/18 12:51 99.3 F 101 24 139/101 96 - Laboratory Lab Statement: Any lab studies that have been ordered have been reviewed, and results considered in the medical decision making process. Course/Dx - Course Course Of Treatment: Patient is evaluated for a overdose of coricidin. Pupils are dilated. Patient not able to speak in full sentences. On the monitor he has normal heart rate, no other findings. Denies any pain or chest pain. He will be observed until patient is able to ambulate well. He is signed out to Ed Nj PA-C upon clinical sobriety. - Diagnoses Provider Diagnoses: Overdose Discharge - Sign-Out/Discharge Documenting (check all that apply): Sign-Out Patient Signing out patient TO: Ed Nj Patient Received Moderate/Deep Sedation with Procedure: No - Discharge Plan Condition: Fair Disposition: HOME Patient Education Materials: Abuse of Alcohol (ED), Polysubstance Abuse (ED) Referrals: Gabriella Fragoso NP [Primary Care Provider] - Additional Instructions: Follow-up with primary care. - Billing Disposition and Condition Condition: FAIR Disposition: Home
--- NOTE | 2018-11-14 19:05 | PN ---
Progress Note - Progress Note Date of Service: 11/14/18 Note: Patient ambulated to the bathroom, responding to questions clearly and coherently. Discharged per recommendation of hospital when clinically cleared. Discharged to home in stable condition with diagnosis of substance abuse.
[2018-11-14 19:27] VITALS: BP 126/58
== END 2018-11-14 19:25 | disposition home or self-care (01) ==
LOC: ED 12:46
DX: T50.991A Poisoning by other drugs, medicaments and biological substances, accidental (unintentional), initial encounter (principal); R94.31 Abnormal electrocardiogram [ECG] [EKG]; I10 Essential (primary) hypertension; E03.9 Hypothyroidism, unspecified; F41.9 Anxiety disorder, unspecified; F32.9 Major depressive disorder, single episode, unspecified; F17.210 Nicotine dependence, cigarettes, uncomplicated; Z86.19 Personal history of other infectious and parasitic diseases
CPT/HCPCS: 93005; 99281

== ENCOUNTER 2018-12-18 13:28 | Emergency (ER) | payer OTHER ==
[2018-12-18] MEDS ORDERED: NS 0.9% 1000 ML** 1,000 ML IV ONE ×2 (13:31→17:20)
--- NOTE | 2018-12-18 13:39 | ED ---
Substance Abuse/Use - HPI Summary HPI Summary: 28 year old Male brought in by ambulance from [facility] to [facility] with a chief complaint of Coricidin overdose since this morning. The patient rates the pain 0 /10 in severity. Patient took 130 tablets Coricidin, per EMS. Patient is hallucinating and reacting violently, per EMS. Patient denies Ativan, alcohol, and other drugs today. - History Of Current Complaint Stated Complaint: POSS OVERDOSE PER EMS Hx Obtained From: EMS Ingestion History: Type/Name Of Drug - Coricidin, Amount Ingested - 260 mg (64 tablets), Approximate Time Of Ingestion - this morning Overdose Characteristics: Oral Severity Currently: None Aggravating Factor(s): Nothing Alleviating Factor(s): Nothing Associated Signs And Symptoms: Hallucinating, Other: - reacting violently - Allergies/Home Medications Allergies/Adverse Reactions: Allergies Allergy/AdvReac Type Severity Reaction Status Date / Time No Known Allergies Allergy Verified 11/10/18 20:10 Home Medications: Home Medications NK [No Home Medications Reported] 12/18/18 [History Confirmed 12/18/18] PMH/Surg Hx/FS Hx/Imm Hx Previously Healthy: No Endocrine/Hematology History: Reports: Hx Thyroid Disease - Hypothyroidism Denies: Hx Anticoagulant Therapy, Hx Blood Disorders, Hx Blood Transfusions, Hx Bone Marrow Disease, Hx Diabetes, Hx Systemic Lupus Erythematosus, Hx Sickle Cell Disease, Hx Anemia, Hx Unexplained Bleeding, Other Endocrine/Hematological Disorders Cardiovascular History: Reports: Hx Hypertension Denies: Hx Aneurysm, Hx Angina, Hx Angioplasty, Hx Auto Implanted Cardiovert Defib, Hx Cardiac Arrest, Hx Cardiomegaly, Hx Congenital Heart Disease, Hx Congestive Heart Failure, Hx Coronary Artery Disease, Hx Deep Vein Thrombosis, Hx Embolism, Hx Hypercholesterolemia, Hx Hypotension, Hx Pacemaker/ICD, Hx Peripheral Vascular Disease, Hx Rheumatic Fever, Hx Syncope, Hx Valvular Heart Disease, Other Cardiovascular Problems/Disorders Respiratory History: Reports: Hx Pneumonia, Hx Seasonal Allergies Denies: Hx Asthma, Hx Chronic Bronchitis, Hx Chronic Obstructive Pulmonary Disease (COPD), Hx Cystic Fibrosis, Hx Lung Cancer, Hx Pleural Effusion, Hx Pulmonary Edema, Hx Pulmonary Embolism, Hx Sleep Apnea, Other Respiratory Problems/Disorders GI History: Reports: Hx Ulcer Denies: Hx Cirrhosis, Hx Crohn's Disease, Hx Diverticulosis, Hx Gall Bladder Disease, Hx Gastroesophageal Reflux Disease, Hx Gastrointestinal Bleed, Hx Hiatal Hernia, Hx Irritable Bowel, Hx Jaundice, Hx Obstructive Bowel, Hx Ileostomy, Hx Pyloric Stenosis, Other GI Disorders History: Denies: Hx Acute Renal Failure, Hx Benign Prostatic Hyperplasia, Hx Chronic Renal Failure, Hx Dialysis, Hx Kidney Infection, Hx Kidney Stones, Hx Renal Disease, Other Problems/Disorders Musculoskeletal History: Denies: Hx Arthritis, Hx Back Problems, Hx Bursitis, Hx Congenital Bone Abnormalities, Hx Fibromyalgia, Hx Gout, Hx Orthopedic Injury, Hx Osteoporosis, Hx Scoliosis, Hx Tendonitis, Other Musculoskeletal History Sensory History: Denies: Hx Cataracts, Hx Contacts or Glasses, Hx Eye Injury, Hx Eye Prosthesis, Hx Glaucoma, Hx Legally Blind, Hx Macular Degeneration, Hx Vision Problem, Hx Deafness, Hx Hearing Aid, Other Sensory Impairments Opthamlomology History: Denies: Hx Cataracts, Hx Contacts or Glasses, Hx Eye Injury, Hx Eye Prosthesis, Hx Glaucoma, Hx Legally Blind, Hx Macular Degeneration, Hx Vision Problem, Other Sensory Impairments Neurological History: Reports: Hx Headaches, Hx Seizures Denies: Hx Dementia, Hx Developmental Delay, Hx Migraine, Hx Nerve Disease, Hx Spinal Cord Injury, Hx Transient Ischemic Attacks (TIA), Other Neuro Impairments/Disorders Psychiatric History: Reports: Hx Anxiety, Hx Depression, Hx Post Traumatic Stress Disorder, Hx Inpatient Treatment, Hx Community Mental Health Tx, Hx Bipolar Disorder, Hx of Violent Episodes Against Others, Hx Substance Abuse, Other Psychiatric Issues/Disorders Denies: Hx Attention Deficit Hyperactivity Disorder, Hx Eating Disorder, Hx Panic Disorder, Hx Schizophrenia, Hx Suicide Attempt - Cancer History Cancer Type, Location and Year: None reported - Surgical History Surgery Procedure, Year, and Place: none Hx Anesthesia Reactions: No - Immunization History Date of Tetanus Vaccine: Unknown Date of Influenza Vaccine: None Infectious Disease History: Reports: Hx Hepatitis - Hep C Denies: Hx Clostridium Difficile, Hx Human Immunodeficiency Virus (HIV), Hx of Known/Suspected MRSA, Hx Shingles, Hx Tuberculosis, Hx Known/Suspected VRE, Hx Known/Suspected VRSA, History Other Infectious Disease - Family History Known Family History: Positive: Other - cancer Negative: Renal Disease Family History: father - ETOH - Social History Alcohol Use: Daily Alcohol Amount: beers Hx Substance Use: Yes Substance Use Type: Reports: Cocaine, Prescribed, Other Substance Use Comment - Amount & Last Used: 09/04, 09/05/18,09/06,09/07,09/08,09/09 2018 Coricidin overdose Hx Tobacco Use: Yes Smoking Status (MU): Heavy Every Day Tobacco Smoker Type: Cigarettes Have You Smoked in the Last Year: Yes Review of Systems Negative: Fever Positive: Other - Coricidin overdose, hallucinating, reacting violently All Other Systems Reviewed And Are Negative: Yes Physical Exam - Summary Physical Exam Summary: VITAL SIGNS: Reviewed. GENERAL: Patient is an obese MALE who is lying comfortable in the stretcher. Patient is not in any acute respiratory distress. HEAD AND FACE: No signs of trauma. No ecchymosis, hematomas or skull depressions. No sinus tenderness. EYES: Pupils are dilated but still reactive. No injected conjunctiva, no nystagmus. EARS: Hearing grossly intact. Ear canals and tympanic membranes are within normal limits. MOUTH: Oropharynx within normal limits. NECK: Supple, trachea is midline, no adenopathy, no JVD, no carotid bruit, no c- spine tenderness, neck with full ROM. CHEST: Symmetric, no tenderness at palpation LUNGS: Clear to auscultation bilaterally. No wheezing or crackles. CVS: Regular rate and rhythm, S1 and S2 present, no murmurs or gallops appreciated. ABDOMEN: Soft, non-tender. No signs of distention. No rebound no guarding, and no masses palpated. Bowel sounds are normal. EXTREMITIES: FROM in all major joints, no edema, no cyanosis or clubbing. Brisk Reflexes. NEURO: Obtunded. Responds to questions properly. SKIN: Dry and warm. Triage Information Reviewed: Yes Vital Signs Reviewed: Yes Diagnostics - Laboratory Result Diagrams: 12/18/18 13:50 12/18/18 13:50 Lab Statement: Any lab studies that have been ordered have been reviewed, and results considered in the medical decision making process. - EKG 1341 Cardiac Rate: NL - 113 BPM EKG Rhythm: Sinus Tachycardia EKG Comparison: No Significant Change - Summary of EKG Findings: Sinus rhythm [address] elevations. No change compared to 11/14/18. Course/Dx - Course Assessment/Plan: 28 year old Male brought in by ambulance from [facility] to [facility] with a chief complaint of Coricidin overdose since this morning. The patient rates the pain 0/10 in severity. Patient took 130 tablets Coricidin, per EMS. Patient is hallucinating and reacting violently, per EMS. Patient denies Ativan , alcohol, and other drugs today. In the physical exam the patient is very lethargic, pupils are dilated, he has hyperactive reflexes. Test results without any significant abnormality except for CPK of 463, TSH 11.4, urinalysis is negative for UTI and urine toxicology positive for phencyclidine. We discussed the case with poison control and they recommend for the patient to be given IV fluids and benzodiazepines for symptomatic treatment. At 5:30 the patient continues to have confusion, agitation, tachycardic, therefore the patient will be signed out to Dr. Lee for further assessment and workup. - Diagnoses Provider Diagnoses: Overdose - Physician Notifications Discussed Care Of Patient With: Lanre Cornelius Time Discussed With Above Provider: 16:05 Instructed by Provider To: Other - Dr. Cornelius, ICU, asks that patient be admitted to the hospitalist. - Critical Care Time Critical Care Time: 75-104 min Discharge - Sign-Out/Discharge Documenting (check all that apply): Sign-Out Patient Signing out patient TO: Corrine Lee - shift change Patient Received Moderate/Deep Sedation with Procedure: No - Discharge Plan Referrals: Gabriella Fargoso, [employer] [Nurse Practitioner] - - Attestation Statements Document Initiated by Scribe: Yes Documenting Scribe: Mary Adler Provider For Whom Scribe is Documenting (Include Credential): Gorge Fenton M.D. Scribe Attestation: Deb Brunner Alison Kim, scribed for Gorge Fenton M.D. on 12/18/18 at 1742. Status of Scribe Document: Ready
[2018-12-18 14:04] LABS: ABS Basophils 0.1 10^3/ul (0-0.2); ABS Eosinophils 0.1 10^3/ul (0-0.6); ABS Lymphocytes 1.4 10^3/ul (1.0-4.8); ABS Monocytes 0.6 10^3/ul (0-0.8); ABS Neutrophils 6.8 10^3/ul (1.5-7.7); Eosinophil % 0.7 %; Hematocrit 44 % (42-52); Hemoglobin 14.6 g/dL (14.0-18.0); Lymphocyte % 15.9 %; Mean Corpuscular HGB Conc 33 g/dL (31-36); Mean Corpuscular Hemoglobin 28 pg (27-31); Mean Corpuscular Volume 84 fL (80-94); Mean Platelet Volume 8.5 fL (7.4-10.4); Platelet Count 225 10^3/uL (150-450); Red Blood Count 5.22 10^6 /uL (4.18-5.48); Red Cell Distribution Width 18 % (10-15)
[2018-12-18 14:21] LABS: ALT 45 U/L (7-52); AST 31 U/L (13-39); Albumin 4.6 g/dL (3.2-5.2); Albumin/Globulin Ratio 1.6 (1-3); Alkaline Phosphatase 86 U/L (34-104); Anion Gap 9 mmol/L (2-11); BUN/Creatinine Ratio 8.5 (8-20); Blood Urea Nitrogen 9 mg/dL (6-24); CO2 Carbon Dioxide 22 mmol/L (22-32); Calcium 9.8 mg/dL (8.6-10.3); Chloride 108 mmol/L (101-111); Creatine Kinase 463 U/L (10-223); EGFR African American 100.7 (>60); EGFR Non-African American 83.2 (>60); Globulin 2.9 g/dL (2-4); Glucose 77 mg/dL (70-100); Potassium 3.6 mmol/L (3.5-5.0); Sodium 139 mmol/L (135-145); Total Protein 7.5 g/dL (6.4-8.9)
[2018-12-18 14:49] LABS: Urine Appearance Clear; Urine Bilirubin Negative (Negative); Urine Blood Negative (Negative); Urine Color Straw; Urine Glucose Negative (Negative); Urine Ketones Negative (Negative); Urine Nitrite Negative (Negative); Urine Protein Negative (Negative); Urine Specific Gravity 1.006 (1.010-1.030); Urine Urobilinogen Negative (Negative)
[2018-12-18 14:49] LABS: Acetaminophen < 15 mcg/mL; Alcohol < 10 mg/dL (<10); Salicylate < 2.50 mg/dL (<30)
[2018-12-18 14:53] LABS: TSH (Thyroid Stimulating Horm) 11.46 mcIU/mL (0.34-5.60)
[2018-12-18 15:10] LABS: Urine Benzodiazepine Screen None Detected (None Detect); Urine Opiates Screen None Detected (None Detect)
--- NOTE | 2018-12-18 17:27 | ED ---
Progress - Progress Note Progress Note: This patient was signed out from Dr. Fenton, at 1700. Dr. Lee was in room at 1700. Pt initially seen with Dr Fenton. Evaluated for admission vs discharge. Pt is awake sitting up in bed, tells Hx that when in halfway voices in TV were talking to him; pt was released from halfway this morning, and states he took 48 Coricidin (his usual dose). EMS states pt took 130 tablets. Pt denies SI/HI. Pt states he is getting emergency housing from [facility], but states if released he will walk around all night. Pt is known to the ED for frequent Coricidin overdose. Pt is trying to transition from male to female. His insurance registration name is Fernie, but he prefers Siria and female pronouns. Re-Evaluation - Re-Evaluation Second Eval Change: Improved Comment: Pt ambulated in the ED without assistance with normal gait. He ate a sandwich, is drinking orange juice. His speech is clear and his thought process is cogent and coherent. He states he will not overdose tonight and he will attend his appointment tomorrow. Pt given pamphlets for [facility] and [facility]. Pt is ambulatory at discharge. Security will escort pt to bus stop. Lauren from [facility] called "M" and stated that she will meet pt at [facility] at 0900. First Eval Re-Evaluation Time: 18:41 Change: Improved Comment: On one-to watch and one-to watch continues. Vital signs while in room : HR 99 bpm, BP 141/99, O2 sat 97%. Pt reports right now she doesnt have a craving and she needs to stay away from the bridge. Pt denies SI/HI,and hearing voices. Pt Works with [employer], working with [facility] and [employer], and working with [employer] going through this transition from male to female. Pt is worried about schizophrenia. Pt has Fasciculation on his tongue, pupils 5mm dilated, frequent urination Course/Dx - Course Course Of Treatment: Pt is well known to the ED for Coricidin overdose, was just DC'd from halfway this am. Was at [facility] to arrange housing when he was acting "stoned" and [facility] called EMS. EMS state that pt took 130 Coricidin tabs. Fernie states that he took 48. He was observed in the ED until alert and ambulatory. Poison control was contacted upon arrival, and was updated on pt's labs prior to DC. Pt had elevated CK and was hydrated with 2L NS. Repeat CK was decreased , but still mildly elevated. Pt has elevated TSH, but has no sxs of hypothryoidism. TSH has been elevated to 14 in the past. Pt does have RX for levothyroxine. Pt had a mental health evaluation while in the ED by M for new auditory hallucinations while in halfway. Janet from poison control said that auditory hallucinations would not be a side effect of Coricidin. M states Dr. Hurst is comfortable with discharge. Pt was ambulatory with a steady gait, fully alert, and conversant and cooperative at time of discharge. He was given a bus pass to go the [facility] which is next to [facility]. Lauren from [facility] called to tell M that she will meet Fernie there at 0900 and go with him to his appointment tomorrow that was set up by the halfway. Pt was given 3 days of his medications Wellbutrin XL 300mg daily, levothyroxine 150mcg daily , and a nicotine patch 14mg. A nicotine patch was placed prior to DC also. Pt was given info about [facility], [facility] and [facility]. - Diagnoses Provider Diagnoses: Overdose, Polysubstance abuse - Provider Notifications Discussed Care Of Patient With: Yudelka Hurst - per M after [facility], pt may be DC' d. Discharge - Sign-Out/Discharge Documenting (check all that apply): Patient Departure - by bus pass to [facility] Patient Received Moderate/Deep Sedation with Procedure: No - Discharge Plan Condition: Stable Disposition: HOME Prescriptions: BuPROPion XL* [Bupropion XL*] 300 mg PO DAILY #3 tab.xl Levothyroxine TAB* [Synthroid 150 MCG TAB*] 150 mcg PO DAILY #3 tab Nicotine Patch Removal NOTE* 1 note FOLLOW UP 0600 #3 [facility] [place] Patient Education Materials: Polysubstance Abuse (ED) Referrals: [facility] [Outside] (Please follow up as soon as possible) Gabriella Fragoso NP [Nurse Practitioner] - Additional Instructions: Keep your appointment tomorrow as scheduled. - Billing Disposition and Condition Condition: STABLE Disposition: Home - Attestation Statements Document Initiated by Scribe: Yes Documenting Scribe: Urvashi Newsome Provider For Whom Mario is Documenting (Include Credential): Dr. Corrine Lee MD Scribe Attestation: Urvashi Brunner scribed for Dr. Corrine Lee MD on 12/18/18 at 2209. Scribe Documentation Reviewed: Yes Provider Attestation: The documentation as recorded by the Urvashi fournier accurately reflects the service I personally performed and the decisions made by me, Dr. Corrine Lee MD Status of Scribe Document: Viewed
[2018-12-18] MEDS ORDERED: Nicotine PATCH 14 MG/24 HR* PATCH TRANSDERM ONE (21:09)
[2018-12-18 21:32] VITALS: BP 141/65
[2018-12-19] MEDS ORDERED: Nicotine Patch Removal NOTE FOLLOW UP SCH (06:00)
== END 2018-12-18 21:30 | disposition home or self-care (01) ==
LOC: ED 13:28
DX: T50.991A Poisoning by other drugs, medicaments and biological substances, accidental (unintentional), initial encounter (principal); F19.10 Other psychoactive substance abuse, uncomplicated; E03.9 Hypothyroidism, unspecified; I10 Essential (primary) hypertension; F17.210 Nicotine dependence, cigarettes, uncomplicated
CPT/HCPCS: 36415; 80053; 80307; 80320; 80329; 81003; 82550; 83605; 84443; 85025; 93005; 96360; 99283; A9270-GY; G0480

== ENCOUNTER 2018-12-24 10:17 | Emergency (ER) | payer OTHER ==
[2018-12-24] MEDS ORDERED: NS 0.9% 1000 ML** 1,000 ML IV ONE ×2 (10:23→12:00)
[2018-12-24 11:07] LABS: ABS Basophils 0.1 10^3/ul (0-0.2); ABS Eosinophils 0.1 10^3/ul (0-0.6); ABS Lymphocytes 2.1 10^3/ul (1.0-4.8); ABS Monocytes 0.6 10^3/ul (0-0.8); ABS Neutrophils 2.9 10^3/ul (1.5-7.7); Eosinophil % 2.4 %; Hematocrit 43 % (42-52); Hemoglobin 14.3 g/dL (14.0-18.0); Lymphocyte % 35.4 %; Mean Corpuscular HGB Conc 33 g/dL (31-36); Mean Corpuscular Hemoglobin 28 pg (27-31); Mean Corpuscular Volume 85 fL (80-94); Platelet Count 226 10^3/uL (150-450); Red Blood Count 5.06 10^6 /uL (4.18-5.48); Red Cell Distribution Width 18 % (10-15); White Blood Count 5.8 10^3/uL (3.5-10.8)
[2018-12-24 11:26] LABS: ALT 35 U/L (7-52); AST 40 U/L (13-39); Albumin 4.3 g/dL (3.2-5.2); Albumin/Globulin Ratio 1.5 (1-3); Alkaline Phosphatase 71 U/L (34-104); Anion Gap 10 mmol/L (2-11); BUN/Creatinine Ratio 9.9 (8-20); Blood Urea Nitrogen 10 mg/dL (6-24); CO2 Carbon Dioxide 23 mmol/L (22-32); Calcium 8.8 mg/dL (8.6-10.3); Chloride 110 mmol/L (101-111); Creatine Kinase 634 U/L (10-223); EGFR African American 106.4 (>60); Globulin 2.8 g/dL (2-4); Glucose 128 mg/dL (70-100); Potassium 3.4 mmol/L (3.5-5.0); Sodium 143 mmol/L (135-145); Total Protein 7.1 g/dL (6.4-8.9)
[2018-12-24 11:51] LABS: Acetaminophen < 15 mcg/mL; Alcohol 240 mg/dL (<10)
[2018-12-24 13:00] LABS: Salicylate < 2.50 mg/dL (<30)
[2018-12-24 13:54] LABS: Urine Appearance Clear; Urine Bilirubin Negative (Negative); Urine Blood Negative (Negative); Urine Color Straw; Urine Glucose Negative (Negative); Urine Ketones Negative (Negative); Urine Nitrite Negative (Negative); Urine Protein Negative (Negative); Urine Specific Gravity 1.006 (1.010-1.030); Urine Urobilinogen Negative (Negative)
[2018-12-24 14:14] LABS: Urine Benzodiazepine Screen None Detected (None Detect); Urine Opiates Screen None Detected (None Detect)
[2018-12-24 16:53] VITALS: BP 118/60
--- NOTE | 2018-12-25 05:35 | ED ---
Substance Abuse/Use - HPI Summary HPI Summary: Patient is a 28-year-old male who presents to the ED by way of EMS after being found on the sidewalk with 4 bottles of "LOCO" nearby which is a caffeinated malt liquor. Patient is alert him however disoriented. He states he knows he is in the hospital, but will not state his name. He is well-known to the ED. He denies taking any [id number] medications today for which she is known for. He states he only drank alcohol this morning. He states he is unsure of the last time he had any overdose of medications. - History Of Current Complaint Chief Complaint: EDSubstanceAbuse Stated Complaint: 2209 PER EMS Time Seen by Provider: 12/24/18 10:21 Hx Obtained From: Patient Ingestion History: Type/Name Of Drug - alcohol Overdose Characteristics: Oral Timing Of Abuse: Daily Severity Initially: Moderate Severity Currently: Moderate Aggravating Factor(s): Nothing, Medication Non-compliance Alleviating Factor(s): Nothing Associated Signs And Symptoms: Intentional Ingestion - Allergies/Home Medications Allergies/Adverse Reactions: Allergies Allergy/AdvReac Type Severity Reaction Status Date / Time No Known Allergies Allergy Verified 11/10/18 20:10 PMH/Surg Hx/FS Hx/Imm Hx Previously Healthy: Yes Endocrine/Hematology History: Reports: Hx Thyroid Disease - Hypothyroidism Denies: Hx Anticoagulant Therapy, Hx Blood Disorders, Hx Blood Transfusions, Hx Bone Marrow Disease, Hx Diabetes, Hx Systemic Lupus Erythematosus, Hx Sickle Cell Disease, Hx Anemia, Hx Unexplained Bleeding, Other Endocrine/Hematological Disorders Cardiovascular History: Reports: Hx Hypertension Denies: Hx Aneurysm, Hx Angina, Hx Angioplasty, Hx Auto Implanted Cardiovert Defib, Hx Cardiac Arrest, Hx Cardiomegaly, Hx Congenital Heart Disease, Hx Congestive Heart Failure, Hx Coronary Artery Disease, Hx Deep Vein Thrombosis, Hx Embolism, Hx Hypercholesterolemia, Hx Hypotension, Hx Pacemaker/ICD, Hx Peripheral Vascular Disease, Hx Rheumatic Fever, Hx Syncope, Hx Valvular Heart Disease, Other Cardiovascular Problems/Disorders Respiratory History: Reports: Hx Pneumonia, Hx Seasonal Allergies Denies: Hx Asthma, Hx Chronic Bronchitis, Hx Chronic Obstructive Pulmonary Disease (COPD), Hx Cystic Fibrosis, Hx Lung Cancer, Hx Pleural Effusion, Hx Pulmonary Edema, Hx Pulmonary Embolism, Hx Sleep Apnea, Other Respiratory Problems/Disorders GI History: Reports: Hx Ulcer Denies: Hx Cirrhosis, Hx Crohn's Disease, Hx Diverticulosis, Hx Gall Bladder Disease, Hx Gastroesophageal Reflux Disease, Hx Gastrointestinal Bleed, Hx Hiatal Hernia, Hx Irritable Bowel, Hx Jaundice, Hx Obstructive Bowel, Hx Ileostomy, Hx Pyloric Stenosis, Other GI Disorders History: Denies: Hx Acute Renal Failure, Hx Benign Prostatic Hyperplasia, Hx Chronic Renal Failure, Hx Dialysis, Hx Kidney Infection, Hx Kidney Stones, Hx Renal Disease, Other Problems/Disorders Musculoskeletal History: Denies: Hx Arthritis, Hx Back Problems, Hx Bursitis, Hx Congenital Bone Abnormalities, Hx Fibromyalgia, Hx Gout, Hx Orthopedic Injury, Hx Osteoporosis, Hx Scoliosis, Hx Tendonitis, Other Musculoskeletal History Sensory History: Denies: Hx Cataracts, Hx Contacts or Glasses, Hx Eye Injury, Hx Eye Prosthesis, Hx Glaucoma, Hx Legally Blind, Hx Macular Degeneration, Hx Vision Problem, Hx Deafness, Hx Hearing Aid, Other Sensory Impairments Opthamlomology History: Denies: Hx Cataracts, Hx Contacts or Glasses, Hx Eye Injury, Hx Eye Prosthesis, Hx Glaucoma, Hx Legally Blind, Hx Macular Degeneration, Hx Vision Problem, Other Sensory Impairments Neurological History: Reports: Hx Headaches, Hx Seizures Denies: Hx Dementia, Hx Developmental Delay, Hx Migraine, Hx Nerve Disease, Hx Spinal Cord Injury, Hx Transient Ischemic Attacks (TIA), Other Neuro Impairments/Disorders Psychiatric History: Reports: Hx Anxiety, Hx Depression, Hx Post Traumatic Stress Disorder, Hx Inpatient Treatment, Hx Community Mental Health Tx, Hx Bipolar Disorder, Hx of Violent Episodes Against Others, Hx Substance Abuse, Other Psychiatric Issues/Disorders Denies: Hx Attention Deficit Hyperactivity Disorder, Hx Eating Disorder, Hx Panic Disorder, Hx Schizophrenia, Hx Suicide Attempt - Cancer History Cancer Type, Location and Year: None reported - Surgical History Surgery Procedure, Year, and Place: none Hx Anesthesia Reactions: No - Immunization History Date of Tetanus Vaccine: Unknown Date of Influenza Vaccine: None Hx Pertussis Vaccination: No Immunizations Up to Date: Yes Infectious Disease History: No Infectious Disease History: Reports: Hx Hepatitis - Hep C Denies: Hx Clostridium Difficile, Hx Human Immunodeficiency Virus (HIV), Hx of Known/Suspected MRSA, Hx Shingles, Hx Tuberculosis, Hx Known/Suspected VRE, Hx Known/Suspected VRSA, History Other Infectious Disease, Traveled Outside the [place] in Last 30 Days - Family History Known Family History: Positive: Other - cancer Negative: Renal Disease Family History: father - ETOH - Social History Occupation: Unemployed Lives: Alone - homeless Alcohol Use: Daily Alcohol Amount: beers Hx Substance Use: Yes Substance Use Type: Reports: Cocaine, Prescribed, Other - coricidin use nearly daily Substance Use Comment - Amount & Last Used: 09/04, 09/05/18,09/06,09/07,09/08,09/09 2018 Coricidin overdose Hx Tobacco Use: Yes Smoking Status (MU): Heavy Every Day Tobacco Smoker Type: Cigarettes Have You Smoked in the Last Year: Yes Review of Systems Negative: Fever, Chills, Fatigue, Skin Diaphoresis Negative: Blurred Vision, Drainage, Erythema Negative: Palpitations, Chest Pain Negative: Shortness Of Breath, Cough Negative: Abdominal Pain, Vomiting, Diarrhea, Nausea Negative: Bruising Negative: Headache All Other Systems Reviewed And Are Negative: Yes Physical Exam Triage Information Reviewed: Yes Vital Signs On Initial Exam: Initial Vitals Temp Pulse Resp BP Pulse Ox 98.0 F 97 16 143/71 95 12/24/18 10:20 12/24/18 10:20 12/24/18 10:20 12/24/18 10:20 12/24/18 10:20 Vital Signs Reviewed: Yes Appearance: Positive: Well-Appearing, Well-Nourished Skin: Positive: Skin Color Reflects Adequate Perfusion Head/Face: Positive: Normal Head/Face Inspection Eyes: Positive: EOMI, CHANDRIKA, Conjunctiva Clear Neck: Positive: Supple, No Lymphadenopathy Respiratory/Lung Sounds: Positive: Clear to Auscultation, Breath Sounds Present Cardiovascular: Positive: RRR, Pulses are Symmetrical in both Upper and Lower Extremities Musculoskeletal: Positive: Strength/ROM Intact Neurological: Positive: Other - disoriented on arrival Psychiatric: Positive: Normal AVPU Assessment: Alert Diagnostics - Vital Signs Vital Signs Temp Pulse Resp BP Pulse Ox 12/24/18 16:52 98.4 F 78 16 118/60 97 12/24/18 14:00 92 93 12/24/18 13:58 86 127/94 96 12/24/18 13:28 84 113/81 96 12/24/18 13:00 83 94 12/24/18 12:58 82 100/67 94 12/24/18 12:28 84 108/69 93 12/24/18 12:00 85 93 12/24/18 11:58 85 100/68 93 12/24/18 11:28 95 111/75 94 12/24/18 11:21 95 107/72 92 12/24/18 11:00 96 93 12/24/18 10:29 99 93 12/24/18 10:28 99 143/71 94 12/24/18 10:20 98.0 F 97 16 143/71 95 - Laboratory Lab Results: Lab Results 12/24/18 12/24/18 12/24/18 Range/Units 11:00 11:00 11:00 WBC 5.8 (3.5-10.8) 10^3/uL RBC 5.06 (4.18-5.48) 10^6 /uL Hgb 14.3 (14.0-18.0) g/dL Hct 43 (42-52) % MCV 85 (80-94) fL MCH 28 (27-31) pg MCHC 33 (31-36) g/dL RDW 18 H (10-15) % Plt Count 226 (150-450) 10^3/uL MPV 8.0 (7.4-10.4) fL Neut % (Auto) 50.4 % Lymph % (Auto) 35.4 % [place] % (Auto) 10.7 % Eos % (Auto) 2.4 % Baso % (Auto) 1.1 % Absolute Neuts (auto) 2.9 (1.5-7.7) 10^3/ul Absolute Lymphs (auto) 2.1 (1.0-4.8) 10^3/ul Absolute Monos (auto) 0.6 (0-0.8) 10^3/ul Absolute Eos (auto) 0.1 (0-0.6) 10^3/ul Absolute Basos (auto) 0.1 (0-0.2) 10^3/ul Absolute Nucleated RBC 0.0 10^3/ul Nucleated RBC % 0.0 Sodium 143 (135-145) mmol/L Potassium 3.4 L (3.5-5.0) mmol/L Chloride 110 (101-111) mmol/L Carbon Dioxide 23 (22-32) mmol/L Anion Gap 10 (2-11) mmol/L BUN 10 (6-24) mg/dL Creatinine 1.01 (0.67-1.17) mg/dL Est GFR ( Amer) 106.4 (>60) Est GFR (Non-Af Amer) 88.0 (>60) BUN/Creatinine Ratio 9.9 (8-20) Glucose 128 H (70-100) mg/dL Lactic Acid 2.3 H* (0.5-2.0) mmol/L Calcium 8.8 (8.6-10.3) mg/dL Total Bilirubin 0.50 (0.2-1.0) mg/dL AST 40 H (13-39) U/L ALT 35 (7-52) U/L Alkaline Phosphatase 71 (34-104) U/L Total Creatine Kinase 634 H (10-223) U/L Total Protein 7.1 (6.4-8.9) g/dL Albumin 4.3 (3.2-5.2) g/dL Globulin 2.8 (2-4) g/dL Albumin/Globulin Ratio 1.5 (1-3) Urine Color Urine Appearance Urine pH (5-9) Ur Specific [place] (1.010-1.030) Urine Protein (Negative) Urine Ketones (Negative) Urine Blood (Negative) Urine Nitrate (Negative) Urine Bilirubin (Negative) Urine Urobilinogen (Negative) Ur Leukocyte Esterase (Negative) Urine Glucose (Negative) Salicylates < 2.50 (<30) mg/dL Urine Opiates Screen (None Detect) Acetaminophen < 15 mcg/mL Ur Barbiturates Screen (None Detect) Ur Phencyclidine Scrn (None Detect) Ur Amphetamines Screen (None Detect) U Benzodiazepines Scrn (None Detect) Urine Cocaine Screen (None Detect) U Cannabinoids Screen (None Detect) Serum Alcohol 240 H (<10) mg/dL 12/24/18 12/24/18 12/24/18 Range/Units 13:40 13:40 15:42 WBC (3.5-10.8) 10^3/uL RBC (4.18-5.48) 10^6 /uL Hgb (14.0-18.0) g/dL Hct (42-52) % MCV (80-94) fL MCH (27-31) pg MCHC (31-36) g/dL RDW (10-15) % Plt Count (150-450) 10^3/uL MPV (7.4-10.4) fL Neut % (Auto) % Lymph % (Auto) % [place] % (Auto) % Eos % (Auto) % Baso % (Auto) % Absolute Neuts (auto) (1.5-7.7) 10^3/ul Absolute Lymphs (auto) (1.0-4.8) 10^3/ul Absolute Monos (auto) (0-0.8) 10^3/ul Absolute Eos (auto) (0-0.6) 10^3/ul Absolute Basos (auto) (0-0.2) 10^3/ul Absolute Nucleated RBC 10^3/ul Nucleated RBC % Sodium (135-145) mmol/L Potassium (3.5-5.0) mmol/L Chloride (101-111) mmol/L Carbon Dioxide (22-32) mmol/L Anion Gap (2-11) mmol/L BUN (6-24) mg/dL Creatinine (0.67-1.17) mg/dL Est GFR ( Amer) (>60) Est GFR (Non-Af Amer) (>60) BUN/Creatinine Ratio (8-20) Glucose (70-100) mg/dL Lactic Acid 1.3 (0.5-2.0) mmol/L Calcium (8.6-10.3) mg/dL Total Bilirubin (0.2-1.0) mg/dL AST (13-39) U/L ALT (7-52) U/L Alkaline Phosphatase (34-104) U/L Total Creatine Kinase (10-223) U/L Total Protein (6.4-8.9) g/dL Albumin (3.2-5.2) g/dL Globulin (2-4) g/dL Albumin/Globulin Ratio (1-3) Urine Color Straw Urine Appearance Clear Urine pH 6.0 (5-9) Ur Specific [place] 1.006 L (1.010-1.030) Urine Protein Negative (Negative) Urine Ketones Negative (Negative) Urine Blood Negative (Negative) Urine Nitrate Negative (Negative) Urine Bilirubin Negative (Negative) Urine Urobilinogen Negative (Negative) Ur Leukocyte Esterase Negative (Negative) Urine Glucose Negative (Negative) Salicylates (<30) mg/dL Urine Opiates Screen None detected (None Detect) Acetaminophen mcg/mL Ur Barbiturates Screen None detected (None Detect) Ur Phencyclidine Scrn Presumptive positive A (None Detect) Ur Amphetamines Screen None detected (None Detect) U Benzodiazepines Scrn None detected (None Detect) Urine Cocaine Screen None detected (None Detect) U Cannabinoids Screen None detected (None Detect) Serum Alcohol (<10) mg/dL 12/24/18 Range/Units 15:42 WBC (3.5-10.8) 10^3/uL RBC (4.18-5.48) 10^6 /uL Hgb (14.0-18.0) g/dL Hct (42-52) % MCV (80-94) fL MCH (27-31) pg MCHC (31-36) g/dL RDW (10-15) % Plt Count (150-450) 10^3/uL MPV (7.4-10.4) fL Neut % (Auto) % Lymph % (Auto) % [place] % (Auto) % Eos % (Auto) % Baso % (Auto) % Absolute Neuts (auto) (1.5-7.7) 10^3/ul Absolute Lymphs (auto) (1.0-4.8) 10^3/ul Absolute Monos (auto) (0-0.8) 10^3/ul Absolute Eos (auto) (0-0.6) 10^3/ul Absolute Basos (auto) (0-0.2) 10^3/ul Absolute Nucleated RBC 10^3/ul Nucleated RBC % Sodium (135-145) mmol/L Potassium (3.5-5.0) mmol/L Chloride (101-111) mmol/L Carbon Dioxide (22-32) mmol/L Anion Gap (2-11) mmol/L BUN (6-24) mg/dL Creatinine (0.67-1.17) mg/dL Est GFR ( Amer) (>60) Est GFR (Non-Af Amer) (>60) BUN/Creatinine Ratio (8-20) Glucose (70-100) mg/dL Lactic Acid (0.5-2.0) mmol/L Calcium (8.6-10.3) mg/dL Total Bilirubin (0.2-1.0) mg/dL AST (13-39) U/L ALT (7-52) U/L Alkaline Phosphatase (34-104) U/L Total Creatine Kinase 610 H (10-223) U/L Total Protein (6.4-8.9) g/dL Albumin (3.2-5.2) g/dL Globulin (2-4) g/dL Albumin/Globulin Ratio (1-3) Urine Color Urine Appearance Urine pH (5-9) Ur Specific [place] (1.010-1.030) Urine Protein (Negative) Urine Ketones (Negative) Urine Blood (Negative) Urine Nitrate (Negative) Urine Bilirubin (Negative) Urine Urobilinogen (Negative) Ur Leukocyte Esterase (Negative) Urine Glucose (Negative) Salicylates (<30) mg/dL Urine Opiates Screen (None Detect) Acetaminophen mcg/mL Ur Barbiturates Screen (None Detect) Ur Phencyclidine Scrn (None Detect) Ur Amphetamines Screen (None Detect) U Benzodiazepines Scrn (None Detect) Urine Cocaine Screen (None Detect) U Cannabinoids Screen (None Detect) Serum Alcohol (<10) mg/dL Result Diagrams: 12/24/18 11:00 12/24/18 11:00 Lab Statement: Any lab studies that have been ordered have been reviewed, and results considered in the medical decision making process. Re-Evaluation - Re-Evaluation 1 Change: Improved - 5 hours observation - pt able to ambulate, eat and drink prior to discharge Course/Dx - Course Course Of Treatment: Current arrival in the ED, the patient is alert but disoriented. He is somewhat difficult to arouse, but once arousable, is able to answer questions appropriately. He states he understands he is in the hospital, when asked his name several times, he'll he smiles. He states he "drank too much" this morning, but denies any drug use or overdose. EKG obtained with no changes from previous EKG. Pt denies cp, sob. Pupils EOMI, no mydriasis or myosis noted. No signs of trauma, no abrasions. No evidence of head injury. Lungs CTA. RRR. Labs obtained which shows 634 CK and a 240 call level. Lactic acid 2.3. He was repleted with fluids with 2 L. Patient up after 5 hours observation, eating and drinking well. Appt tomorrow with social work. Social work to visit pt in the ED. He is discharged home with alcohol use with possibility of polysubstance abuse/use. - Diagnoses Differential Diagnosis/HQI/PQRI: Positive: Other - polysubstance abuse, drug use , alcohol abuse Provider Diagnoses: Alcohol use Discharge - Sign-Out/Discharge Documenting (check all that apply): Patient Departure Patient Received Moderate/Deep Sedation with Procedure: No - Discharge Plan Condition: Stable Disposition: HOME Referrals: No Primary Care Phys,NOPCP [Primary Care Provider] - - Billing Disposition and Condition Condition: STABLE Disposition: Home
== END 2018-12-24 16:52 | disposition home or self-care (01) ==
LOC: ED 10:17
DX: F10.129 Alcohol abuse with intoxication, unspecified (principal); I10 Essential (primary) hypertension; F17.210 Nicotine dependence, cigarettes, uncomplicated; Y90.8 Blood alcohol level of 240 mg/100 ml or more
CPT/HCPCS: 36415; 80053; 80307; 80320; 80329; 81003; 82550; 83605; 85025; 93005; 96360; 96361; 99285; G0480

== ENCOUNTER 2018-12-25 11:32 | Emergency (ER) | payer OTHER ==
[2018-12-25 12:24] LABS: ABS Basophils 0.1 10^3/ul (0-0.2); ABS Eosinophils 0.2 10^3/ul (0-0.6); ABS Lymphocytes 2.3 10^3/ul (1.0-4.8); ABS Monocytes 0.6 10^3/ul (0-0.8); ABS Neutrophils 2.7 10^3/ul (1.5-7.7); Eosinophil % 3.6 %; Hematocrit 43 % (42-52); Lymphocyte % 38.8 %; Mean Corpuscular HGB Conc 33 g/dL (31-36); Mean Corpuscular Hemoglobin 28 pg (27-31); Mean Corpuscular Volume 86 fL (80-94); Platelet Count 222 10^3/uL (150-450); Red Blood Count 4.98 10^6 /uL (4.18-5.48); Red Cell Distribution Width 17 % (10-15); White Blood Count 5.9 10^3/uL (3.5-10.8)
[2018-12-25 12:44] LABS: Albumin 4.1 g/dL (3.2-5.2); Anion Gap 11 mmol/L (2-11); CO2 Carbon Dioxide 24 mmol/L (22-32); Calcium 9.1 mg/dL (8.6-10.3); Chloride 107 mmol/L (101-111); Sodium 142 mmol/L (135-145)
[2018-12-25 12:50] LABS: ALT 33 U/L (7-52); AST 35 U/L (13-39); Albumin/Globulin Ratio 1.6 (1-3); Alkaline Phosphatase 71 U/L (34-104); BUN/Creatinine Ratio 11.9 (8-20); Blood Urea Nitrogen 10 mg/dL (6-24); EGFR African American 131.7 (>60); EGFR Non-African American 108.8 (>60); Globulin 2.5 g/dL (2-4); Glucose 136 mg/dL (70-100); Total Protein 6.6 g/dL (6.4-8.9)
[2018-12-25 12:53] LABS: Acetaminophen < 15 mcg/mL; Alcohol 261 mg/dL (<10); Salicylate < 2.50 mg/dL (<30)
[2018-12-25 13:04] LABS: TSH (Thyroid Stimulating Horm) 2.38 mcIU/mL (0.34-5.60)
[2018-12-25 13:43] LABS: Urine Appearance Clear; Urine Bilirubin Negative (Negative); Urine Blood Negative (Negative); Urine Color Straw; Urine Glucose Negative (Negative); Urine Ketones Negative (Negative); Urine Nitrite Negative (Negative); Urine Protein Negative (Negative); Urine Specific Gravity 1.008 (1.010-1.030); Urine Urobilinogen Negative (Negative)
[2018-12-25 14:13] LABS: Urine Benzodiazepine Screen None Detected (None Detect); Urine Opiates Screen None Detected (None Detect)
--- NOTE | 2018-12-25 17:57 | ED ---
Substance Abuse/Use - HPI Summary HPI Summary: patient is a 28-year-old male presenting to the ED with alcohol intoxication and possible coricidin overdose. He denies taking any pills today, but his pupils are dilated. He is well known to [facility] and had a visit here yesterday for same. He denies any CP or SOB. He does state on arrival, he did not make threatening statements to the DSS worker he was talking to, but only hitting on her. - History Of Current Complaint Chief Complaint: [facility] Stated Complaint: 941 PER EMS Time Seen by Provider: 12/25/18 11:36 Hx Obtained From: Patient Onset/Duration of Drug/ETOH Abuse: Hours Ingestion History: Type/Name Of Drug Overdose Characteristics: Oral Timing Of Abuse: Daily Severity Initially: Severe Severity Currently: Severe Character: Lethargic, Stuporous Aggravating Factor(s): Nothing Alleviating Factor(s): Nothing - Risk Factor(s) Completed Suicide Risk Factors: Male - Allergies/Home Medications Allergies/Adverse Reactions: Allergies Allergy/AdvReac Type Severity Reaction Status Date / Time No Known Allergies Allergy Verified 12/25/18 11:42 Home Medications: Home Medications NK [No Home Medications Reported] 12/25/18 [History Confirmed 12/25/18] PMH/Surg Hx/FS Hx/Imm Hx Previously Healthy: Yes Endocrine/Hematology History: Reports: Hx Thyroid Disease - Hypothyroidism Denies: Hx Anticoagulant Therapy, Hx Blood Disorders, Hx Blood Transfusions, Hx Bone Marrow Disease, Hx Diabetes, Hx Systemic Lupus Erythematosus, Hx Sickle Cell Disease, Hx Anemia, Hx Unexplained Bleeding, Other Endocrine/Hematological Disorders Cardiovascular History: Reports: Hx Hypertension Denies: Hx Aneurysm, Hx Angina, Hx Angioplasty, Hx Auto Implanted Cardiovert Defib, Hx Cardiac Arrest, Hx Cardiomegaly, Hx Congenital Heart Disease, Hx Congestive Heart Failure, Hx Coronary Artery Disease, Hx Deep Vein Thrombosis, Hx Embolism, Hx Hypercholesterolemia, Hx Hypotension, Hx Pacemaker/ICD, Hx Peripheral Vascular Disease, Hx Rheumatic Fever, Hx Syncope, Hx Valvular Heart Disease, Other Cardiovascular Problems/Disorders Respiratory History: Reports: Hx Pneumonia, Hx Seasonal Allergies Denies: Hx Asthma, Hx Chronic Bronchitis, Hx Chronic Obstructive Pulmonary Disease (COPD), Hx Cystic Fibrosis, Hx Lung Cancer, Hx Pleural Effusion, Hx Pulmonary Edema, Hx Pulmonary Embolism, Hx Sleep Apnea, Other Respiratory Problems/Disorders GI History: Reports: Hx Ulcer Denies: Hx Cirrhosis, Hx Crohn's Disease, Hx Diverticulosis, Hx Gall Bladder Disease, Hx Gastroesophageal Reflux Disease, Hx Gastrointestinal Bleed, Hx Hiatal Hernia, Hx Irritable Bowel, Hx Jaundice, Hx Obstructive Bowel, Hx Ileostomy, Hx Pyloric Stenosis, Other GI Disorders History: Denies: Hx Acute Renal Failure, Hx Benign Prostatic Hyperplasia, Hx Chronic Renal Failure, Hx Dialysis, Hx Kidney Infection, Hx Kidney Stones, Hx Renal Disease, Other Problems/Disorders Musculoskeletal History: Denies: Hx Arthritis, Hx Back Problems, Hx Bursitis, Hx Congenital Bone Abnormalities, Hx Fibromyalgia, Hx Gout, Hx Orthopedic Injury, Hx Osteoporosis, Hx Scoliosis, Hx Tendonitis, Other Musculoskeletal History Sensory History: Denies: Hx Cataracts, Hx Contacts or Glasses, Hx Eye Injury, Hx Eye Prosthesis, Hx Glaucoma, Hx Legally Blind, Hx Macular Degeneration, Hx Vision Problem, Hx Deafness, Hx Hearing Aid, Other Sensory Impairments Opthamlomology History: Denies: Hx Cataracts, Hx Contacts or Glasses, Hx Eye Injury, Hx Eye Prosthesis, Hx Glaucoma, Hx Legally Blind, Hx Macular Degeneration, Hx Vision Problem, Other Sensory Impairments Neurological History: Reports: Hx Headaches, Hx Seizures Denies: Hx Dementia, Hx Developmental Delay, Hx Migraine, Hx Nerve Disease, Hx Spinal Cord Injury, Hx Transient Ischemic Attacks (TIA), Other Neuro Impairments/Disorders Psychiatric History: Reports: Hx Anxiety, Hx Depression, Hx Post Traumatic Stress Disorder, Hx Inpatient Treatment, Hx Community Mental Health Tx, Hx Bipolar Disorder, Hx of Violent Episodes Against Others, Hx Substance Abuse, Other Psychiatric Issues/Disorders Denies: Hx Attention Deficit Hyperactivity Disorder, Hx Eating Disorder, Hx Panic Disorder, Hx Schizophrenia, Hx Suicide Attempt - Cancer History Cancer Type, Location and Year: None reported - Surgical History Surgery Procedure, Year, and Place: none Hx Anesthesia Reactions: No - Immunization History Date of Tetanus Vaccine: Unknown Date of Influenza Vaccine: None Hx Pertussis Vaccination: No Immunizations Up to Date: Yes Infectious Disease History: No Infectious Disease History: Reports: Hx Hepatitis - Hep C Denies: Hx Clostridium Difficile, Hx Human Immunodeficiency Virus (HIV), Hx of Known/Suspected MRSA, Hx Shingles, Hx Tuberculosis, Hx Known/Suspected VRE, Hx Known/Suspected VRSA, History Other Infectious Disease, Traveled Outside the [place] in Last 30 Days - Family History Known Family History: Positive: Other - cancer Negative: Renal Disease Family History: father - ETOH - Social History Occupation: Unemployed Lives: Alone - homeless Alcohol Use: Daily Alcohol Amount: beers Hx Substance Use: Yes Substance Use Type: Reports: Cocaine, Prescribed, Other Substance Use Comment - Amount & Last Used: 09/04, 09/05/18,09/06, 09/07, 09/08, 2018 Coricidin overdose Hx Tobacco Use: Yes Smoking Status (MU): Heavy Every Day Tobacco Smoker Type: Cigarettes Have You Smoked in the Last Year: Yes Review of Systems Negative: Fever, Chills, Fatigue, Skin Diaphoresis Negative: Palpitations, Chest Pain Negative: Shortness Of Breath, Cough Genitourinary: Negative Positive: no symptoms reported, see HPI Negative: Arthralgia, Myalgia Skin: Negative Psychological: Normal All Other Systems Reviewed And Are Negative: Yes Physical Exam Triage Information Reviewed: Yes Vital Signs On Initial Exam: Initial Vitals Temp Pulse Resp BP Pulse Ox 97.8 F 68 15 127/67 94 12/25/18 11:36 12/25/18 11:36 12/25/18 11:36 12/25/18 11:36 12/25/18 11:36 Vital Signs Reviewed: Yes Completion Of Physical Exam Limited Due To: Altered Mental Status Appearance: Positive: Ill-Appearing Skin: Positive: Skin Color Reflects Adequate Perfusion, Dry Head/Face: Positive: Normal Head/Face Inspection Eyes: Positive: Other: - mydriasis Neck: Positive: Supple, No Lymphadenopathy Respiratory/Lung Sounds: Positive: Clear to Auscultation, Breath Sounds Present Cardiovascular: Positive: RRR Musculoskeletal: Positive: Strength/ROM Intact Neurological: Positive: Other - not oriented to time or place, only to name - Dora Coma Scale Best Eye Response: 2 - To Pain Best Motor Response: 4 - Withdraws Best Verbal Response: 3 - Inappropriate Words Coma Scale Total: 9 Diagnostics - Vital Signs Vital Signs Temp Pulse Resp BP Pulse Ox 12/25/18 15:49 98.1 F 62 16 127/84 96 12/25/18 11:36 97.8 F 68 15 127/67 94 - Laboratory Lab Results: Lab Results 12/25/18 12/25/18 12/25/18 Range/Units 12:09 12:10 13:34 WBC 5.9 (3.5-10.8) 10^3/uL RBC 4.98 (4.18-5.48) 10^6 /uL Hgb 14.0 (14.0-18.0) g/dL Hct 43 (42-52) % MCV 86 (80-94) fL MCH 28 (27-31) pg MCHC 33 (31-36) g/dL RDW 17 H (10-15) % Plt Count 222 (150-450) 10^3/uL MPV 8.0 (7.4-10.4) fL Neut % (Auto) 45.9 % Lymph % (Auto) 38.8 % Kimble % (Auto) 10.5 % Eos % (Auto) 3.6 % Baso % (Auto) 1.2 % Absolute Neuts (auto) 2.7 (1.5-7.7) 10^3/ul Absolute Lymphs (auto) 2.3 (1.0-4.8) 10^3/ul Absolute Monos (auto) 0.6 (0-0.8) 10^3/ul Absolute Eos (auto) 0.2 (0-0.6) 10^3/ul Absolute Basos (auto) 0.1 (0-0.2) 10^3/ul Absolute Nucleated RBC 0.0 10^3/ul Nucleated RBC % 0.0 Sodium 142 (135-145) mmol/L Potassium 3.0 L (3.5-5.0) mmol/L Chloride 107 (101-111) mmol/L Carbon Dioxide 24 (22-32) mmol/L Anion Gap 11 (2-11) mmol/L BUN 10 (6-24) mg/dL Creatinine 0.84 (0.67-1.17) mg/dL Est GFR ( Amer) 131.7 (>60) Est GFR (Non-Af Amer) 108.8 (>60) BUN/Creatinine Ratio 11.9 (8-20) Glucose 136 H (70-100) mg/dL Calcium 9.1 (8.6-10.3) mg/dL Total Bilirubin 0.40 (0.2-1.0) mg/dL AST 35 (13-39) U/L ALT 33 (7-52) U/L Alkaline Phosphatase 71 (34-104) U/L Total Protein 6.6 (6.4-8.9) g/dL Albumin 4.1 (3.2-5.2) g/dL Globulin 2.5 (2-4) g/dL Albumin/Globulin Ratio 1.6 (1-3) TSH 2.38 (0.34-5.60) mcIU/mL Urine Color Straw Urine Appearance Clear Urine pH 6.0 (5-9) Ur Specific [place] 1.008 L (1.010-1.030) Urine Protein Negative (Negative) Urine Ketones Negative (Negative) Urine Blood Negative (Negative) Urine Nitrate Negative (Negative) Urine Bilirubin Negative (Negative) Urine Urobilinogen Negative (Negative) Ur Leukocyte Esterase Negative (Negative) Urine Glucose Negative (Negative) Salicylates < 2.50 (<30) mg/dL Urine Opiates Screen (None Detect) Acetaminophen < 15 mcg/mL Ur Barbiturates Screen (None Detect) Ur Phencyclidine Scrn (None Detect) Ur Amphetamines Screen (None Detect) U Benzodiazepines Scrn (None Detect) Urine Cocaine Screen (None Detect) U Cannabinoids Screen (None Detect) Serum Alcohol 261 H (<10) mg/dL 12/25/18 Range/Units 13:34 WBC (3.5-10.8) 10^3/uL RBC (4.18-5.48) 10^6 /uL Hgb (14.0-18.0) g/dL Hct (42-52) % MCV (80-94) fL MCH (27-31) pg MCHC (31-36) g/dL RDW (10-15) % Plt Count (150-450) 10^3/uL MPV (7.4-10.4) fL Neut % (Auto) % Lymph % (Auto) % Kimble % (Auto) % Eos % (Auto) % Baso % (Auto) % Absolute Neuts (auto) (1.5-7.7) 10^3/ul Absolute Lymphs (auto) (1.0-4.8) 10^3/ul Absolute Monos (auto) (0-0.8) 10^3/ul Absolute Eos (auto) (0-0.6) 10^3/ul Absolute Basos (auto) (0-0.2) 10^3/ul Absolute Nucleated RBC 10^3/ul Nucleated RBC % Sodium (135-145) mmol/L Potassium (3.5-5.0) mmol/L Chloride (101-111) mmol/L Carbon Dioxide (22-32) mmol/L Anion Gap (2-11) mmol/L BUN (6-24) mg/dL Creatinine (0.67-1.17) mg/dL Est GFR ( Amer) (>60) Est GFR (Non-Af Amer) (>60) BUN/Creatinine Ratio (8-20) Glucose (70-100) mg/dL Calcium (8.6-10.3) mg/dL Total Bilirubin (0.2-1.0) mg/dL AST (13-39) U/L ALT (7-52) U/L Alkaline Phosphatase (34-104) U/L Total Protein (6.4-8.9) g/dL Albumin (3.2-5.2) g/dL Globulin (2-4) g/dL Albumin/Globulin Ratio (1-3) TSH (0.34-5.60) mcIU/mL Urine Color Urine Appearance Urine pH (5-9) Ur Specific [place] (1.010-1.030) Urine Protein (Negative) Urine Ketones (Negative) Urine Blood (Negative) Urine Nitrate (Negative) Urine Bilirubin (Negative) Urine Urobilinogen (Negative) Ur Leukocyte Esterase (Negative) Urine Glucose (Negative) Salicylates (<30) mg/dL Urine Opiates Screen None detected (None Detect) Acetaminophen mcg/mL Ur Barbiturates Screen None detected (None Detect) Ur Phencyclidine Scrn None detected (None Detect) Ur Amphetamines Screen None detected (None Detect) U Benzodiazepines Scrn None detected (None Detect) Urine Cocaine Screen None detected (None Detect) U Cannabinoids Screen None detected (None Detect) Serum Alcohol (<10) mg/dL Result Diagrams: 12/25/18 12:09 12/25/18 12:10 Lab Statement: Any lab studies that have been ordered have been reviewed, and results considered in the medical decision making process. Course/Dx - Course Course Of Treatment: On arrival into the ED, the patient is evaluated for L call intoxication and overdose. He denies taking any medication, however his pupils are dilated. Labs obtained which are WNL. Urine obtained which is also negative for any toxins. He is known for taking Coricidin. He comes today as he was making threatening statements to a [employer] director of human resources, however he states he was only hitting on her. He will be evaluated for mental health after he is cleared. He is not cleared at this time and remains obtunded but is easily arousable. He remains on a cardiopulmonary monitor. ACT team will be involved with his case prior to discharge. Patient will be signed out to GUILLERMINA Ling pending MHE and medical clearance. - Diagnoses Provider Diagnoses: Alcohol use, Overdose Discharge - Sign-Out/Discharge Documenting (check all that apply): Sign-Out Patient Signing out patient TO: Leti Carolina Patient Received Moderate/Deep Sedation with Procedure: No - Discharge Plan Condition: Fair Referrals: No Primary Care Phys,NOPCP [Primary Care Provider] - - Billing Disposition and Condition Condition: FAIR
--- NOTE | 2018-12-25 18:11 | ED ---
Progress - Progress Note Progress Note: patient signed out by Nguyen SARMIENTO pending being cleared for mental health and evaluation - EKG/XRAY/CT Comments: sinus tachycardia Course/Dx - Course Course Of Treatment: On arrival into the ED, the patient is evaluated for L call intoxication and overdose. He denies taking any medication, however his pupils are dilated. Labs obtained which are WNL. Urine obtained which is also negative for any toxins. He is known for taking Coricidin. He comes today as he was making threatening statements to a [facility] computer systems integrator, however he states he was only hitting on her. He will be evaluated for mental health after he is cleared. He is not cleared at this time and remains obtunded but is easily arousable. He remains on a cardiopulmonary monitor. ACT team will be involved with his case prior to discharge. pateint was cleared for mental health but was still acting inappriopate so mental health exam had to be delayed. patient will be signed out to dr masters pending MHE - Diagnoses Provider Diagnoses: Overdose, Alcohol use Discharge - Sign-Out/Discharge Documenting (check all that apply): Sign-Out Patient, Receiving Sign-Out Signing out patient TO: Brayan Masters Receiving patient FROM: Nguyen Mancini - Discharge Plan Referrals: No Primary Care Phys,NOPCP [Primary Care Provider] -
--- NOTE | 2018-12-26 05:14 | ED ---
Progress - Progress Note Progress Note: Patient signed out by GUILLERMINA Preciado, upon shift change at 02:30 12/26/18, pending MHE and disposition. - EKG/XRAY/CT Comments: sinus tachycardia Course/Dx - Course Course Of Treatment: Patient signed out by GUILLERMINA Preciado, upon shift change at 02:30 12/26/18, pending MHE and disposition. Per mental health southeast regional sales manager, Dr. Aris Jones, psychiatry, recommends discharging patient with follow up from ACT team. The patient will be discharged. The patient is agreeable with this plan. - Diagnoses Provider Diagnoses: Substance induced mood disorder Discharge - Sign-Out/Discharge Documenting (check all that apply): Patient Departure - discharge Patient Received Moderate/Deep Sedation with Procedure: No - Discharge Plan Condition: Good Disposition: HOME Patient Education Materials: Mood Disorders (ED), Abuse of Alcohol (ED), Polysubstance Abuse (ED) Referrals: No Primary Care Phys,NOPCP [Primary Care Provider] - - Billing Disposition and Condition Condition: GOOD Disposition: Home - Attestation Statements Document Initiated by Shelleyibe: Yes Documenting Scribe: Mary Adler Provider For Whom Mario is Documenting (Include Credential): Brayan Richardson MD Scribe Attestation: Deb Brunner Alison Kim, scribed for Brayan Richardson MD on 12/27/18 at 0449. Scribe Documentation Reviewed: Yes Provider Attestation: The documentation as recorded by the scribe, Mary Adler accurately reflects the service I personally performed and the decisions made by , Brayan Richardson MD Status of Scribe Document: Viewed
[2018-12-26] MEDS ORDERED: Nicotine PATCH 14 MG/24 HR* PATCH TRANSDERM ONE (06:15)
[2018-12-26 08:15] VITALS: BP 149/99
[2018-12-26] MEDS ORDERED: Nicotine Patch Removal NOTE PATCH OFF SCH (21:00)
== END 2018-12-26 08:15 | disposition home or self-care (01) ==
LOC: ED 11:32
DX: T50.991A Poisoning by other drugs, medicaments and biological substances, accidental (unintentional), initial encounter (principal); F19.94 Other psychoactive substance use, unspecified with psychoactive substance-induced mood disorder; F10.929 Alcohol use, unspecified with intoxication, unspecified; F17.210 Nicotine dependence, cigarettes, uncomplicated
CPT/HCPCS: 36415; 80053; 80307; 80320; 80329; 81003; 84443; 85025; 93005; 99284; A9270-GY; G0480

== ENCOUNTER 2018-12-26 15:10 | Emergency (ER) | payer OTHER ==
[2018-12-26] MEDS ORDERED: Haloperidol INJ IV/IM* 5 MG/ML AMP IM ONE (15:27)
[2018-12-26] MEDS ORDERED: LORazepam INJ* 2 MG/ML 1 ML VIAL IM ONE (15:28)
[2018-12-26] MEDS ORDERED: Lorazepam PYXIS KEY PRN (15:28)
--- NOTE | 2018-12-26 15:30 | ED ---
Syncope/Near Syncope - HPI Summary HPI Summary: A 28 y/o male brought in by [email or web address] ambulance presents to [facility] with a chief complaint of taking 48 coricidin [employer]. He did not respond to whether or not he has SI. In the ED is agitated, kicking while in his stretcher. He is diaphoretic. The patient will be a level 5 caveat due to him being non-verbal, uncooperative and agitated. - History Of Current Complaint Time Seen by Provider: 12/26/18 15:21 Hx Obtained From: Patient, EMS Onset/Duration: Sudden Onset, Lasting Hours, Still Present Timing: Hours Activity At Onset: Unknown Associated Head Trauma: No Aggravating Factor(s): Nothing Alleviating Factor(s): Nothing Associated Signs And Symptoms: Diaphoresis - Allergies/Home Medications Allergies/Adverse Reactions: Allergies Allergy/AdvReac Type Severity Reaction Status Date / Time No Known Allergies Allergy Verified 12/26/18 15:41 PMH/Surg Hx/FS Hx/Imm Hx Endocrine/Hematology History: Reports: Hx Thyroid Disease - Hypothyroidism Denies: Hx Anticoagulant Therapy, Hx Blood Disorders, Hx Blood Transfusions, Hx Bone Marrow Disease, Hx Diabetes, Hx Systemic Lupus Erythematosus, Hx Sickle Cell Disease, Hx Anemia, Hx Unexplained Bleeding, Other Endocrine/Hematological Disorders Cardiovascular History: Reports: Hx Hypertension Denies: Hx Aneurysm, Hx Angina, Hx Angioplasty, Hx Auto Implanted Cardiovert Defib, Hx Cardiac Arrest, Hx Cardiomegaly, Hx Congenital Heart Disease, Hx Congestive Heart Failure, Hx Coronary Artery Disease, Hx Deep Vein Thrombosis, Hx Embolism, Hx Hypercholesterolemia, Hx Hypotension, Hx Pacemaker/ICD, Hx Peripheral Vascular Disease, Hx Rheumatic Fever, Hx Syncope, Hx Valvular Heart Disease, Other Cardiovascular Problems/Disorders Respiratory History: Reports: Hx Pneumonia, Hx Seasonal Allergies Denies: Hx Asthma, Hx Chronic Bronchitis, Hx Chronic Obstructive Pulmonary Disease (COPD), Hx Cystic Fibrosis, Hx Lung Cancer, Hx Pleural Effusion, Hx Pulmonary Edema, Hx Pulmonary Embolism, Hx Sleep Apnea, Other Respiratory Problems/Disorders GI History: Reports: Hx Ulcer Denies: Hx Cirrhosis, Hx Crohn's Disease, Hx Diverticulosis, Hx Gall Bladder Disease, Hx Gastroesophageal Reflux Disease, Hx Gastrointestinal Bleed, Hx Hiatal Hernia, Hx Irritable Bowel, Hx Jaundice, Hx Obstructive Bowel, Hx Ileostomy, Hx Pyloric Stenosis, Other GI Disorders History: Denies: Hx Acute Renal Failure, Hx Benign Prostatic Hyperplasia, Hx Chronic Renal Failure, Hx Dialysis, Hx Kidney Infection, Hx Kidney Stones, Hx Renal Disease, Other Problems/Disorders Musculoskeletal History: Denies: Hx Arthritis, Hx Back Problems, Hx Bursitis, Hx Congenital Bone Abnormalities, Hx Fibromyalgia, Hx Gout, Hx Orthopedic Injury, Hx Osteoporosis, Hx Scoliosis, Hx Tendonitis, Other Musculoskeletal History Sensory History: Denies: Hx Cataracts, Hx Contacts or Glasses, Hx Eye Injury, Hx Eye Prosthesis, Hx Glaucoma, Hx Legally Blind, Hx Macular Degeneration, Hx Vision Problem, Hx Deafness, Hx Hearing Aid, Other Sensory Impairments Opthamlomology History: Denies: Hx Cataracts, Hx Contacts or Glasses, Hx Eye Injury, Hx Eye Prosthesis, Hx Glaucoma, Hx Legally Blind, Hx Macular Degeneration, Hx Vision Problem, Other Sensory Impairments Neurological History: Reports: Hx Headaches, Hx Seizures Denies: Hx Dementia, Hx Developmental Delay, Hx Migraine, Hx Nerve Disease, Hx Spinal Cord Injury, Hx Transient Ischemic Attacks (TIA), Other Neuro Impairments/Disorders Psychiatric History: Reports: Hx Anxiety, Hx Depression, Hx Post Traumatic Stress Disorder, Hx Inpatient Treatment, Hx Community Mental Health Tx, Hx Bipolar Disorder, Hx of Violent Episodes Against Others, Hx Substance Abuse, Other Psychiatric Issues/Disorders Denies: Hx Attention Deficit Hyperactivity Disorder, Hx Eating Disorder, Hx Panic Disorder, Hx Schizophrenia, Hx Suicide Attempt - Cancer History Cancer Type, Location and Year: None reported - Surgical History Surgery Procedure, Year, and Place: none Hx Anesthesia Reactions: No - Immunization History Date of Tetanus Vaccine: Unknown Date of Influenza Vaccine: None Infectious Disease History: Reports: Hx Hepatitis - Hep C Denies: Hx Clostridium Difficile, Hx Human Immunodeficiency Virus (HIV), Hx of Known/Suspected MRSA, Hx Shingles, Hx Tuberculosis, Hx Known/Suspected VRE, Hx Known/Suspected VRSA, History Other Infectious Disease - Family History Known Family History: Positive: Other - cancer Negative: Renal Disease Family History: father - ETOH - Social History Alcohol Use: Daily Alcohol Amount: beers Hx Substance Use: Yes Substance Use Type: Reports: Cocaine, Prescribed, Other Substance Use Comment - Amount & Last Used: 09/04, 09/05/18,09/06, 09/07, 09/08, 2018 Coricidin overdose Hx Tobacco Use: Yes Smoking Status (MU): Heavy Every Day Tobacco Smoker Type: Cigarettes Have You Smoked in the Last Year: Yes Review of Systems - ROS Summary Review of Systems Summary: Pt is a level 5 caveat Positive: Skin Diaphoresis Psychological: Other - positive: taking 48 coricidin [employer]. All Other Systems Reviewed And Are Negative: No Physical Exam - Summary Physical Exam Summary: Pt is a level 5 caveat. Constitutional: Well-developed, Well-nourished, Alert. (-) Distressed Skin: Warm, Dry, diaphoretic HENT: Normocephalic; Atraumatic Eyes: Conjunctiva normal, minimal nystagmus Neck: Musculoskeletal ROM normal neck. (-) JVD, (-) Stridor, (-) Tracheal deviation Cardio: Rhythm regular, rate normal, Heart sounds normal; Intact distal pulses; The pedal pulses are 2+ and symmetric. Radial pulses are 2+ and symmetric. (-) Murmur Pulmonary/Chest wall: Effort normal. (-) Respiratory distress, (-) Wheezes, (-) Rales Abd: Soft, (-) tenderness, (-) Distension, (-) Guarding, (-) Rebound Musculoskeletal: (-) Edema Lymph: (-) Cervical adenopathy Neuro: Alert, Oriented x3 Psych: Non verbal, anxious appearing, Triage Information Reviewed: Yes Vital Signs Reviewed: Yes Diagnostics - Laboratory Result Diagrams: 12/26/18 16:02 12/26/18 16:02 Lab Statement: Any lab studies that have been ordered have been reviewed, and results considered in the medical decision making process. Re-Evaluation - Re-Evaluation First Eval Re-Evaluation Time: 18:17 Change: Improved Comment: Pt does not appear agitated. We are downgrading him to constant observation. Second Eval Re-Evaluation Time: 19:44 Change: Unchanged Comment: Pt says that he was not trying to kill himself but just wanted to get high. [place] He has no slurred speech or ataxia and his vital signs were normalized. Course/Dx Course Of Treatment: A 28 y/o male brought in by [employer] ambulance presents to [facility] with a chief complaint of taking 48 coricidin [employer]. He did not respond to whether or not he has SI. In the ED is agitated, kicking while in his stretcher. He is diaphoretic. The patient will be a level 5 caveat due to him being non-verbal, uncooperative and agitated. The physical exam revealed that he is non-verbal, anxious appearing, diaphoretic, and has minimal nystagmus. Upon re-eval the patient does not appear agitated. We are downgrading him to constant observation. Pt says that he was not trying to kill himself but just wanted to get high. Discussed case with social Melissa worker, who says that we can provide him with a bus pass although he has walked home before. The patient had no slurred speech or ataxia and his vital signs were normalized. He will follow up with [facility] in 2 days and is agreeable with this plan. - Diagnoses Provider Diagnoses: Substance abuse Discharge - Sign-Out/Discharge Documenting (check all that apply): Patient Departure - DC Patient Received Moderate/Deep Sedation with Procedure: No - Discharge Plan Condition: Stable Disposition: HOME Patient Education Materials: Polysubstance Abuse (ED) Referrals: [facility] [Outside] (2-3 days) Additional Instructions: RETURN TO THE EMERGENCY DEPARTMENT FOR CHANGING OR WORSENING SYMPTOMS - Attestation Statements Document Initiated by Scribe: Yes Documenting Scribe: Dave Gamboa Provider For Whom Scribe is Documenting (Include Credential): Javed Felipe MD Scribe Attestation: I, Dave Gamboa, scribed for Javed Felipe MD on 12/26/18 at 2052. Status of Scribe Document: Ready Consult Consult: At 19:50 Discussed case with social Melissa worker, who says that we can provide him with a bus pass although he has walked home before.
[2018-12-26] MEDS ORDERED: Lorazepam PYXIS KEY ONE (15:31)
[2018-12-26] MEDS ORDERED: NS 0.9% 1000 ML** 1,000 ML IV ONE (15:33)
[2018-12-26 16:23] LABS: ABS Basophils 0.1 10^3/ul (0-0.2); ABS Eosinophils 0.1 10^3/ul (0-0.6); ABS Lymphocytes 2.4 10^3/ul (1.0-4.8); ABS Monocytes 1.1 10^3/ul (0-0.8); ABS Neutrophils 5.4 10^3/ul (1.5-7.7); Eosinophil % 0.9 %; Hematocrit 45 % (42-52); Lymphocyte % 26.5 %; Mean Corpuscular HGB Conc 34 g/dL (31-36); Mean Corpuscular Hemoglobin 29 pg (27-31); Mean Corpuscular Volume 85 fL (80-94); Mean Platelet Volume 8.3 fL (7.4-10.4); Nucleated Red Blood Cells % 0.3; Platelet Count 225 10^3/uL (150-450); Red Blood Count 5.25 10^6 /uL (4.18-5.48); Red Cell Distribution Width 18 % (10-15); White Blood Count 9.1 10^3/uL (3.5-10.8)
[2018-12-26 16:51] LABS: ALT 57 U/L (7-52); AST 85 U/L (13-39); Albumin 4.6 g/dL (3.2-5.2); Albumin/Globulin Ratio 1.5 (1-3); Alkaline Phosphatase 84 U/L (34-104); Anion Gap 9 mmol/L (2-11); BUN/Creatinine Ratio 12.6 (8-20); Blood Urea Nitrogen 13 mg/dL (6-24); CO2 Carbon Dioxide 26 mmol/L (22-32); Calcium 9.8 mg/dL (8.6-10.3); Chloride 109 mmol/L (101-111); Glucose 65 mg/dL (70-100); Potassium 3.1 mmol/L (3.5-5.0); Sodium 144 mmol/L (135-145); Total Protein 7.6 g/dL (6.4-8.9)
[2018-12-26 16:59] LABS: Acetaminophen < 15 mcg/mL; Alcohol < 10 mg/dL (<10); Salicylate < 2.50 mg/dL (<30)
[2018-12-26 17:08] LABS: TSH (Thyroid Stimulating Horm) 22.07 mcIU/mL (0.34-5.60)
[2018-12-26] MEDS ORDERED: Nicotine PATCH 14 MG/24 HR* PATCH TRANSDERM SCH (20:00)
[2018-12-26 20:59] VITALS: BP 133/108
== END 2018-12-26 21:12 | disposition home or self-care (01) ==
LOC: ED 15:10
DX: F19.10 Other psychoactive substance abuse, uncomplicated (principal); R61 Generalized hyperhidrosis; I10 Essential (primary) hypertension; F17.210 Nicotine dependence, cigarettes, uncomplicated
CPT/HCPCS: 36415; 80053; 80320; 80329; 84443; 85025; 96360; 96361; 96372; 99285; A9270-GY; G0480; J1630; J2060

== ENCOUNTER 2018-12-29 19:45 | Emergency (ER) | payer OTHER ==
--- NOTE | 2018-12-29 20:25 | ED ---
Substance Abuse/Use - HPI Summary HPI Summary: Patient is a 28 y old M brought by EMS to [facility] with chief complaint of ETOH intoxication and Coricidin use with rated severity of 0/10 and an onset two hours ago. Patient admits to drinking alcohol and taking 48 pills of Coricidin. He denies pain. Symptoms alleviated by nothing and aggravated by nothing. - History Of Current Complaint Chief Complaint: EDMentalHealth Stated Complaint: MHE PER EMS Time Seen by Provider: 12/29/18 19:53 Hx Obtained From: Patient Severity Currently: None Aggravating Factor(s): Nothing Alleviating Factor(s): Nothing - Allergies/Home Medications Allergies/Adverse Reactions: Allergies Allergy/AdvReac Type Severity Reaction Status Date / Time No Known Allergies Allergy Verified 12/26/18 15:41 PMH/Surg Hx/FS Hx/Imm Hx Previously Healthy: No Endocrine/Hematology History: Reports: Hx Thyroid Disease - Hypothyroidism Denies: Hx Anticoagulant Therapy, Hx Blood Disorders, Hx Blood Transfusions, Hx Bone Marrow Disease, Hx Diabetes, Hx Systemic Lupus Erythematosus, Hx Sickle Cell Disease, Hx Anemia, Hx Unexplained Bleeding, Other Endocrine/Hematological Disorders Cardiovascular History: Reports: Hx Hypertension Denies: Hx Aneurysm, Hx Angina, Hx Angioplasty, Hx Auto Implanted Cardiovert Defib, Hx Cardiac Arrest, Hx Cardiomegaly, Hx Congenital Heart Disease, Hx Congestive Heart Failure, Hx Coronary Artery Disease, Hx Deep Vein Thrombosis, Hx Embolism, Hx Hypercholesterolemia, Hx Hypotension, Hx Pacemaker/ICD, Hx Peripheral Vascular Disease, Hx Rheumatic Fever, Hx Syncope, Hx Valvular Heart Disease, Other Cardiovascular Problems/Disorders Respiratory History: Reports: Hx Pneumonia, Hx Seasonal Allergies Denies: Hx Asthma, Hx Chronic Bronchitis, Hx Chronic Obstructive Pulmonary Disease (COPD), Hx Cystic Fibrosis, Hx Lung Cancer, Hx Pleural Effusion, Hx Pulmonary Edema, Hx Pulmonary Embolism, Hx Sleep Apnea, Other Respiratory Problems/Disorders GI History: Reports: Hx Ulcer Denies: Hx Cirrhosis, Hx Crohn's Disease, Hx Diverticulosis, Hx Gall Bladder Disease, Hx Gastroesophageal Reflux Disease, Hx Gastrointestinal Bleed, Hx Hiatal Hernia, Hx Irritable Bowel, Hx Jaundice, Hx Obstructive Bowel, Hx Ileostomy, Hx Pyloric Stenosis, Other GI Disorders History: Denies: Hx Acute Renal Failure, Hx Benign Prostatic Hyperplasia, Hx Chronic Renal Failure, Hx Dialysis, Hx Kidney Infection, Hx Kidney Stones, Hx Renal Disease, Other Problems/Disorders Musculoskeletal History: Denies: Hx Arthritis, Hx Back Problems, Hx Bursitis, Hx Congenital Bone Abnormalities, Hx Fibromyalgia, Hx Gout, Hx Orthopedic Injury, Hx Osteoporosis, Hx Scoliosis, Hx Tendonitis, Other Musculoskeletal History Sensory History: Denies: Hx Cataracts, Hx Contacts or Glasses, Hx Eye Injury, Hx Eye Prosthesis, Hx Glaucoma, Hx Legally Blind, Hx Macular Degeneration, Hx Vision Problem, Hx Deafness, Hx Hearing Aid, Other Sensory Impairments Opthamlomology History: Denies: Hx Cataracts, Hx Contacts or Glasses, Hx Eye Injury, Hx Eye Prosthesis, Hx Glaucoma, Hx Legally Blind, Hx Macular Degeneration, Hx Vision Problem, Other Sensory Impairments Neurological History: Reports: Hx Headaches, Hx Seizures Denies: Hx Dementia, Hx Developmental Delay, Hx Migraine, Hx Nerve Disease, Hx Spinal Cord Injury, Hx Transient Ischemic Attacks (TIA), Other Neuro Impairments/Disorders Psychiatric History: Reports: Hx Anxiety, Hx Depression, Hx Post Traumatic Stress Disorder, Hx Inpatient Treatment, Hx Community Mental Health Tx, Hx Bipolar Disorder, Hx of Violent Episodes Against Others, Hx Substance Abuse, Other Psychiatric Issues/Disorders Denies: Hx Attention Deficit Hyperactivity Disorder, Hx Eating Disorder, Hx Panic Disorder, Hx Schizophrenia, Hx Suicide Attempt - Cancer History Cancer Type, Location and Year: None reported - Surgical History Surgery Procedure, Year, and Place: none Hx Anesthesia Reactions: No - Immunization History Date of Tetanus Vaccine: Unknown Date of Influenza Vaccine: None Immunizations Up to Date: Yes Infectious Disease History: No Infectious Disease History: Reports: Hx Hepatitis - Hep C Denies: Hx Clostridium Difficile, Hx Human Immunodeficiency Virus (HIV), Hx of Known/Suspected MRSA, Hx Shingles, Hx Tuberculosis, Hx Known/Suspected VRE, Hx Known/Suspected VRSA, History Other Infectious Disease, Traveled Outside the [place] in Last 30 Days - Family History Known Family History: Positive: Other - cancer Negative: Renal Disease Family History: father - ETOH - Social History Alcohol Use: Daily Alcohol Amount: beers Hx Substance Use: Yes Substance Use Type: Reports: Cocaine, Prescribed, Other Substance Use Comment - Amount & Last Used: 09/04, 09/05/18,09/06, 09/07, 09/08, 2018 Coricidin overdose Hx Tobacco Use: Yes Smoking Status (MU): Heavy Every Day Tobacco Smoker Type: Cigarettes Have You Smoked in the Last Year: Yes Review of Systems Negative: Fever Positive: Other - EtOH intoxication, Coricidin use All Other Systems Reviewed And Are Negative: Yes Physical Exam - Summary Physical Exam Summary: VITAL SIGNS: Reviewed. GENERAL: Patient is a well-developed and nourished MALE who is lying comfortable in the stretcher. Patient is not in any acute respiratory distress. He is not toxic appearing. HEAD AND FACE: No signs of trauma. No ecchymosis, hematomas or skull depressions. No sinus tenderness. EYES: Mild dilation of the pupils EARS: Hearing grossly intact. Ear canals and tympanic membranes are within normal limits. MOUTH: Oropharynx within normal limits. NECK: Supple, trachea is midline, no adenopathy, no JVD, no carotid bruit, no c- spine tenderness, neck with full ROM. CHEST: Symmetric, no tenderness at palpation. LUNGS: Clear to auscultation bilaterally. No wheezing or crackles. CVS: Slightly tachycardic and regular rhythm, S1 and S2 present, no murmurs or gallops appreciated. ABDOMEN: Soft, non-tender. No signs of distention. No rebound, no guarding, and no masses palpated. Bowel sounds are normal. EXTREMITIES: FROM in all major joints, no edema, no cyanosis or clubbing. NEURO: Alert and oriented x 3. No acute neurological deficits. Speech is normal and follows commands. SKIN: Dry and warm. Triage Information Reviewed: Yes Vital Signs On Initial Exam: Initial Vitals Temp Pulse Resp BP Pulse Ox 98.7 F 115 18 129/87 97 12/29/18 19:49 12/29/18 19:49 12/29/18 19:49 12/29/18 19:49 12/29/18 19:49 Vital Signs Reviewed: Yes Diagnostics - Vital Signs Vital Signs Temp Pulse Resp BP Pulse Ox 12/29/18 19:49 98.7 F 115 18 129/87 97 - Laboratory Result Diagrams: 12/29/18 20:44 12/29/18 20:45 Lab Statement: Any lab studies that have been ordered have been reviewed, and results considered in the medical decision making process. - Radiology Chest x-ray Radiology Interpretation Completed By: ED Physician Summary of Radiographic Findings: No acute process. Pending official report. - EKG 1958 Cardiac Rate: NL - 115 BPM EKG Rhythm: Sinus Tachycardia Summary of EKG Findings: Sinus tachycardia,115 BPM, No ST elevation, Normal axis Course/Dx - Course Assessment/Plan: Patient is a 28 y old M brought by EMS to [facility] with chief complaint of ETOH intoxication and Coricidin use with rated severity of 0/10 and an onset two hours ago. Patient admits to drinking alcohol and taking 48 pills of Coricidin. He denies pain. Symptoms alleviated by nothing and aggravated by nothing. We discussed the case with the poison control and they recommend for the patient to be observed for 6 hours and get only symptomatic treatment with IV fluids and benzodiazepines as needed. Blood test results without any significant abnormalities except for potassium level of 3, glucose of 107, lactic acid is 2.4. Patient was given potassium chloride for his hypokalemia. At this point, the patient will be signed out to Dr. Abrams for further workup and disposition of this patient. - Diagnoses Provider Diagnoses: Overdose Discharge - Sign-Out/Discharge Documenting (check all that apply): Sign-Out Patient Signing out patient TO: Brayan Richardson Patient Received Moderate/Deep Sedation with Procedure: No - Discharge Plan Condition: Good Disposition: HOME Patient Education Materials: Polysubstance Abuse (ED) Referrals: No Primary Care Phys,NOPCP [Primary Care Provider] - Additional Instructions: Follow up with ACT team - Attestation Statements Document Initiated by Mario: Yes Documenting Scribe: Mary Adler Provider For Whom Mario is Documenting (Include Credential): Gorge Fenton MD Scribe Attestation: Deb Brunner Alison Kim, scribed for Gorge Fenton MD on 12/31/18 at 2016. Scribe Documentation Reviewed: Yes Provider Attestation: The documentation as recorded by the scribe, Mary Adler accurately reflects the service I personally performed and the decisions made by , Gorge Fenton MD Status of Scribe Document: Viewed
[2018-12-29 20:52] LABS: ABS Basophils 0.1 10^3/ul (0-0.2); ABS Eosinophils 0.3 10^3/ul (0-0.6); ABS Lymphocytes 3.3 10^3/ul (1.0-4.8); ABS Monocytes 0.8 10^3/ul (0-0.8); ABS Neutrophils 4.1 10^3/ul (1.5-7.7); Eosinophil % 3.3 %; Hematocrit 42 % (42-52); Hemoglobin 14.3 g/dL (14.0-18.0); Mean Corpuscular HGB Conc 34 g/dL (31-36); Mean Corpuscular Hemoglobin 29 pg (27-31); Mean Corpuscular Volume 85 fL (80-94); Mean Platelet Volume 8.5 fL (7.4-10.4); Nucleated Red Blood Cells % 0.2; Platelet Count 216 10^3/uL (150-450); Red Blood Count 4.92 10^6 /uL (4.18-5.48); Red Cell Distribution Width 17 % (10-15); White Blood Count 8.4 10^3/uL (3.5-10.8)
[2018-12-29 21:07] LABS: ALT 36 U/L (7-52); AST 29 U/L (13-39); Albumin/Globulin Ratio 1.6 (1-3); Alkaline Phosphatase 69 U/L (34-104); Anion Gap 10 mmol/L (2-11); BUN/Creatinine Ratio 8.9 (8-20); Blood Urea Nitrogen 8 mg/dL (6-24); CO2 Carbon Dioxide 22 mmol/L (22-32); Calcium 8.9 mg/dL (8.6-10.3); Chloride 109 mmol/L (101-111); Creatine Kinase 716 U/L (10-223); EGFR African American 121.6 (>60); EGFR Non-African American 100.5 (>60); Globulin 2.5 g/dL (2-4); Glucose 107 mg/dL (70-100); Sodium 141 mmol/L (135-145); Total Protein 6.5 g/dL (6.4-8.9)
[2018-12-29 21:28] LABS: Magnesium 1.6 mg/dL (1.9-2.7)
[2018-12-29 21:43] LABS: Urine Appearance Clear; Urine Bilirubin Negative (Negative); Urine Blood Negative (Negative); Urine Color Yellow; Urine Glucose Negative (Negative); Urine Ketones Negative (Negative); Urine Nitrite Negative (Negative); Urine Protein Negative (Negative); Urine Specific Gravity 1.012 (1.010-1.030); Urine Urobilinogen Negative (Negative)
--- NOTE | 2018-12-29 21:50 | ED ---
Progress - Progress Note Progress Note: This patient is a sign-out from Dr. Gorge Fenton to Dr. Brayan Richardson at 2200 on 12/29/18 at shift change pending poison control monitoring until 2-3AM. Course/Dx - Course Course Of Treatment: This patient is a sign-out from Dr. Gorge Fenton to Dr. Brayan Richardson at 2200 on 12/29/18 at shift change pending poison control monitoring until 2-3AM. Patient will be discharged home with dx of drug overdose. Patient understands and agrees with this plan. - Diagnoses Provider Diagnoses: Overdose Discharge - Sign-Out/Discharge Documenting (check all that apply): Patient Departure - Discharge Patient Received Moderate/Deep Sedation with Procedure: No - Discharge Plan Condition: Good Disposition: HOME Patient Education Materials: Polysubstance Abuse (ED) Referrals: No Primary Care Phys,NOPCP [Primary Care Provider] - Additional Instructions: Follow up with ACT team - Attestation Statements Document Initiated by Scribe: Yes Documenting Scribe: Arturo Worthington Provider For Whom Scribe is Documenting (Include Credential): Brayan Richardson MD Scribe Attestation: Arturo Brunner, scribed for Brayan Richardson MD on 12/30/18 at 0354. Status of Scribe Document: Ready
[2018-12-29 21:55] LABS: Acetaminophen < 15 mcg/mL; Alcohol 119 mg/dL (<10); Salicylate < 2.50 mg/dL (<30)
[2018-12-29 21:59] LABS: Urine Benzodiazepine Screen None Detected (None Detect); Urine Opiates Screen None Detected (None Detect)
[2018-12-29 22:09] LABS: TSH (Thyroid Stimulating Horm) 6.76 mcIU/mL (0.34-5.60)
[2018-12-30 03:58] VITALS: BP 160/101
== END 2018-12-30 03:57 | disposition home or self-care (01) ==
LOC: ED 19:45
DX: T48.5X1A Poisoning by other anti-common-cold drugs, accidental (unintentional), initial encounter (principal); Y92.9 Unspecified place or not applicable; F17.210 Nicotine dependence, cigarettes, uncomplicated
CPT/HCPCS: 36415; 71045; 80053; 80307; 80320; 80329; 81003; 82550; 83605; 83735; 84443; 85025; 93005; 99285; G0480

== ENCOUNTER 2018-12-30 18:28 | Emergency (ER) | payer OTHER ==
[2018-12-30 22:40] LABS: ABS Eosinophils 0.2 10^3/ul (0-0.6); ABS Lymphocytes 2.7 10^3/ul (1.0-4.8); ABS Monocytes 0.7 10^3/ul (0-0.8); ABS Neutrophils 4.6 10^3/ul (1.5-7.7); Eosinophil % 2.7 %; Hematocrit 39 % (42-52); Hemoglobin 12.8 g/dL (14.0-18.0); Lymphocyte % 32.8 %; Mean Corpuscular HGB Conc 33 g/dL (31-36); Mean Corpuscular Hemoglobin 28 pg (27-31); Mean Corpuscular Volume 86 fL (80-94); Nucleated Red Blood Cells % 0.1; Platelet Count 185 10^3/uL (150-450); Red Cell Distribution Width 17 % (10-15); White Blood Count 8.3 10^3/uL (3.5-10.8)
[2018-12-30 22:55] LABS: ALT 31 U/L (7-52); AST 24 U/L (13-39); Albumin 3.8 g/dL (3.2-5.2); Albumin/Globulin Ratio 1.6 (1-3); Alkaline Phosphatase 63 U/L (34-104); BUN/Creatinine Ratio 8.4 (8-20); Blood Urea Nitrogen 8 mg/dL (6-24); CO2 Carbon Dioxide 23 mmol/L (22-32); Calcium 9.5 mg/dL (8.6-10.3); Chloride 105 mmol/L (101-111); EGFR African American 114.2 (>60); EGFR Non-African American 94.4 (>60); Globulin 2.4 g/dL (2-4); Glucose 119 mg/dL (70-100); Sodium 137 mmol/L (135-145); Total Protein 6.2 g/dL (6.4-8.9)
[2018-12-30 22:57] LABS: Anion Gap 9 mmol/L (2-11); Potassium 2.7 mmol/L (3.5-5.0)
[2018-12-30] MEDS ORDERED: Potassium Chlor TAB* 20 MEQ TAB.ER PO ONE (22:58)
--- NOTE | 2018-12-30 23:16 | ED ---
Substance Abuse/Use - HPI Summary HPI Summary: Patient complains of heart racing after ingestion of 64 g of nutmeg and six 16 ounce alcoholic beverages tonight. Denies any other symptoms at this time. History of overdose on multiple substances. - History Of Current Complaint Chief Complaint: EDSubstanceAbuse Stated Complaint: HEART RACING PER EMS Time Seen by Provider: 12/30/18 22:11 Hx Obtained From: Patient Onset/Duration of Drug/ETOH Abuse: Hours Overdose Characteristics: Oral Severity Currently: Mild Aggravating Factor(s): Nothing Alleviating Factor(s): Nothing Associated Signs And Symptoms: Palpitations - Allergies/Home Medications Allergies/Adverse Reactions: Allergies Allergy/AdvReac Type Severity Reaction Status Date / Time No Known Allergies Allergy Verified 12/26/18 15:41 PMH/Surg Hx/FS Hx/Imm Hx Endocrine/Hematology History: Reports: Hx Thyroid Disease - Hypothyroidism Denies: Hx Anticoagulant Therapy, Hx Blood Disorders, Hx Blood Transfusions, Hx Bone Marrow Disease, Hx Diabetes, Hx Systemic Lupus Erythematosus, Hx Sickle Cell Disease, Hx Anemia, Hx Unexplained Bleeding, Other Endocrine/Hematological Disorders Cardiovascular History: Reports: Hx Hypertension Denies: Hx Aneurysm, Hx Angina, Hx Angioplasty, Hx Auto Implanted Cardiovert Defib, Hx Cardiac Arrest, Hx Cardiomegaly, Hx Congenital Heart Disease, Hx Congestive Heart Failure, Hx Coronary Artery Disease, Hx Deep Vein Thrombosis, Hx Embolism, Hx Hypercholesterolemia, Hx Hypotension, Hx Pacemaker/ICD, Hx Peripheral Vascular Disease, Hx Rheumatic Fever, Hx Syncope, Hx Valvular Heart Disease, Other Cardiovascular Problems/Disorders Respiratory History: Reports: Hx Pneumonia, Hx Seasonal Allergies Denies: Hx Asthma, Hx Chronic Bronchitis, Hx Chronic Obstructive Pulmonary Disease (COPD), Hx Cystic Fibrosis, Hx Lung Cancer, Hx Pleural Effusion, Hx Pulmonary Edema, Hx Pulmonary Embolism, Hx Sleep Apnea, Other Respiratory Problems/Disorders GI History: Reports: Hx Ulcer Denies: Hx Cirrhosis, Hx Crohn's Disease, Hx Diverticulosis, Hx Gall Bladder Disease, Hx Gastroesophageal Reflux Disease, Hx Gastrointestinal Bleed, Hx Hiatal Hernia, Hx Irritable Bowel, Hx Jaundice, Hx Obstructive Bowel, Hx Ileostomy, Hx Pyloric Stenosis, Other GI Disorders History: Denies: Hx Acute Renal Failure, Hx Benign Prostatic Hyperplasia, Hx Chronic Renal Failure, Hx Dialysis, Hx Kidney Infection, Hx Kidney Stones, Hx Renal Disease, Other Problems/Disorders Musculoskeletal History: Denies: Hx Arthritis, Hx Back Problems, Hx Bursitis, Hx Congenital Bone Abnormalities, Hx Fibromyalgia, Hx Gout, Hx Orthopedic Injury, Hx Osteoporosis, Hx Scoliosis, Hx Tendonitis, Other Musculoskeletal History Sensory History: Denies: Hx Cataracts, Hx Contacts or Glasses, Hx Eye Injury, Hx Eye Prosthesis, Hx Glaucoma, Hx Legally Blind, Hx Macular Degeneration, Hx Vision Problem, Hx Deafness, Hx Hearing Aid, Other Sensory Impairments Opthamlomology History: Denies: Hx Cataracts, Hx Contacts or Glasses, Hx Eye Injury, Hx Eye Prosthesis, Hx Glaucoma, Hx Legally Blind, Hx Macular Degeneration, Hx Vision Problem, Other Sensory Impairments Neurological History: Reports: Hx Headaches, Hx Seizures Denies: Hx Dementia, Hx Developmental Delay, Hx Migraine, Hx Nerve Disease, Hx Spinal Cord Injury, Hx Transient Ischemic Attacks (TIA), Other Neuro Impairments/Disorders Psychiatric History: Reports: Hx Anxiety, Hx Depression, Hx Post Traumatic Stress Disorder, Hx Inpatient Treatment, Hx Community Mental Health Tx, Hx Bipolar Disorder, Hx of Violent Episodes Against Others, Hx Substance Abuse, Other Psychiatric Issues/Disorders Denies: Hx Attention Deficit Hyperactivity Disorder, Hx Eating Disorder, Hx Panic Disorder, Hx Schizophrenia, Hx Suicide Attempt - Cancer History Cancer Type, Location and Year: None reported - Surgical History Surgery Procedure, Year, and Place: none Hx Anesthesia Reactions: No - Immunization History Date of Tetanus Vaccine: Unknown Date of Influenza Vaccine: None Infectious Disease History: No Infectious Disease History: Reports: Hx Hepatitis - Hep C Denies: Hx Clostridium Difficile, Hx Human Immunodeficiency Virus (HIV), Hx of Known/Suspected MRSA, Hx Shingles, Hx Tuberculosis, Hx Known/Suspected VRE, Hx Known/Suspected VRSA, History Other Infectious Disease, Traveled Outside the [place] in Last 30 Days - Family History Known Family History: Positive: Other - cancer Negative: Renal Disease Family History: father - ETOH - Social History Alcohol Use: Daily Alcohol Amount: beers Hx Substance Use: Yes Substance Use Type: Reports: Cocaine, Prescribed, Other Substance Use Comment - Amount & Last Used: 09/04, 09/05/18,09/06, 09/07, 09/08, 2018 Coricidin overdose Hx Tobacco Use: Yes Smoking Status (MU): Heavy Every Day Tobacco Smoker Type: Cigarettes Have You Smoked in the Last Year: Yes Review of Systems Constitutional: Negative Eyes: Negative ENT: Negative Positive: Palpitations Respiratory: Negative Genitourinary: Negative Musculoskeletal: Negative Skin: Negative Neurological: Negative Psychological: Normal All Other Systems Reviewed And Are Negative: Yes Physical Exam - Summary Physical Exam Summary: No evidence of trauma. No abdomen soft nontender. Lung sounds clear to auscultation bilaterally. Patient alert and oriented, calm and cooperative. RRR. Triage Information Reviewed: Yes Vital Signs On Initial Exam: Initial Vitals Temp Pulse Resp BP Pulse Ox 98.6 F 137 16 110/62 95 12/30/18 18:31 12/30/18 18:31 12/30/18 18:31 12/30/18 18:31 12/30/18 18:31 Vital Signs Reviewed: Yes Appearance: Positive: Well-Appearing Skin: Positive: Warm Head/Face: Positive: Normal Head/Face Inspection Eyes: Positive: Normal ENT: Positive: Normal ENT inspection Neck: Positive: Supple Respiratory/Lung Sounds: Positive: Clear to Auscultation Cardiovascular: Positive: Normal Abdomen Description: Positive: Nontender Musculoskeletal: Positive: Normal Neurological: Positive: Normal Psychiatric: Positive: Normal AVPU Assessment: Alert - Dora Coma Scale Best Eye Response: 4 - Spontaneous Best Motor Response: 6 - Obeys Commands Best Verbal Response: 5 - Oriented Coma Scale Total: 15 Diagnostics - Vital Signs Vital Signs Temp Pulse Resp BP Pulse Ox 12/30/18 21:57 106 12 104/61 98 12/30/18 20:24 112 12/30/18 18:31 98.6 F 137 16 110/62 95 - Laboratory Lab Results: Lab Results 12/30/18 12/30/18 Range/Units 22:34 22:34 WBC 8.3 (3.5-10.8) 10^3/uL RBC 4.50 (4.18-5.48) 10^6 /uL Hgb 12.8 L (14.0-18.0) g/dL Hct 39 L (42-52) % MCV 86 (80-94) fL MCH 28 (27-31) pg MCHC 33 (31-36) g/dL RDW 17 H (10-15) % Plt Count 185 (150-450) 10^3/uL MPV 8.0 (7.4-10.4) fL Neut % (Auto) 55.5 % Lymph % (Auto) 32.8 % [place] % (Auto) 8.4 % Eos % (Auto) 2.7 % Baso % (Auto) 0.6 % Absolute Neuts (auto) 4.6 (1.5-7.7) 10^3/ul Absolute Lymphs (auto) 2.7 (1.0-4.8) 10^3/ul Absolute Monos (auto) 0.7 (0-0.8) 10^3/ul Absolute Eos (auto) 0.2 (0-0.6) 10^3/ul Absolute Basos (auto) 0.0 (0-0.2) 10^3/ul Absolute Nucleated RBC 0.0 10^3/ul Nucleated RBC % 0.1 Sodium 137 (135-145) mmol/L Potassium 2.7 L* (3.5-5.0) mmol/L Chloride 105 (101-111) mmol/L Carbon Dioxide 23 (22-32) mmol/L Anion Gap 9 (2-11) mmol/L BUN 8 (6-24) mg/dL Creatinine 0.95 (0.67-1.17) mg/dL Est GFR ( Amer) 114.2 (>60) Est GFR (Non-Af Amer) 94.4 (>60) BUN/Creatinine Ratio 8.4 (8-20) Glucose 119 H (70-100) mg/dL Calcium 9.5 (8.6-10.3) mg/dL Total Bilirubin 0.60 (0.2-1.0) mg/dL AST 24 (13-39) U/L ALT 31 (7-52) U/L Alkaline Phosphatase 63 (34-104) U/L Total Protein 6.2 L (6.4-8.9) g/dL Albumin 3.8 (3.2-5.2) g/dL Globulin 2.4 (2-4) g/dL Albumin/Globulin Ratio 1.6 (1-3) TSH Pending Salicylates Pending Acetaminophen Pending Serum Alcohol Pending Result Diagrams: 12/30/18 22:34 12/31/18 01:47 Lab Statement: Any lab studies that have been ordered have been reviewed, and results considered in the medical decision making process. Course/Dx - Course Course Of Treatment: Patient complains of heart racing after ingestion of 64 g of nutmeg and six 16 ounce alcoholic beverages tonight. Denies any other symptoms at this time. History of overdose on multiple substances. Initial tachycardia resolved. Vital signs otherwise within normal limits. Poison control recommends basic labs, EKG, vital signs and observation. Patient no apparent distress. Evaluation by mental health recommends patient be kept overnight for further psychiatric evaluation tomorrow. - Diagnoses Provider Diagnoses: Overdose Discharge - Sign-Out/Discharge Documenting (check all that apply): Sign-Out Patient Signing out patient TO: Twan Villarreal Patient Received Moderate/Deep Sedation with Procedure: No - Discharge Plan Condition: Stable Disposition: HOME Patient Education Materials: Mood Disorders (ED) Referrals: No Primary Care Phys,NOPCP [Primary Care Provider] - - Billing Disposition and Condition Condition: STABLE Disposition: Home
[2018-12-30 23:18] LABS: Acetaminophen < 15 mcg/mL; Alcohol 137 mg/dL (<10); Salicylate < 2.50 mg/dL (<30)
[2018-12-30 23:33] LABS: TSH (Thyroid Stimulating Horm) 1.91 mcIU/mL (0.34-5.60)
[2018-12-31 00:16] LABS: Urine Appearance Clear; Urine Bilirubin Negative (Negative); Urine Blood Negative (Negative); Urine Color Yellow; Urine Glucose Negative (Negative); Urine Ketones Negative (Negative); Urine Nitrite Negative (Negative); Urine Protein Negative (Negative); Urine Specific Gravity 1.005 (1.010-1.030); Urine Urobilinogen Negative (Negative)
[2018-12-31 00:21] LABS: Urine Benzodiazepine Screen None Detected (None Detect); Urine Opiates Screen None Detected (None Detect)
--- NOTE | 2018-12-31 03:49 | ED ---
Progress - Progress Note Progress Note: This patient is a sign-out from GUILLERMINA Davila to Twan Villarreal MD at 0349 on at shift change pending MHE. - Consult/PCP Time Called: 00:57 Course/Dx - Course Course Of Treatment: This patient is a sign-out from GUILLERMINA Davila to Twan Villarreal MD at 0349 on 12/31/18 at shift change pending MHE. Patient will be signed out to Dr. Felipe at 0700 on 12/31/18 at shift change pending MHE. - Diagnoses Provider Diagnoses: Suicidal ideation Discharge - Sign-Out/Discharge Documenting (check all that apply): Sign-Out Patient, Receiving Sign-Out Signing out patient TO: Javed Felipe Receiving patient FROM: Ed [place] Patient Received Moderate/Deep Sedation with Procedure: No - Discharge Plan Condition: Stable Referrals: No Primary Care Phys,NOPCP [Primary Care Provider] - - Attestation Statements Document Initiated by Scribe: Yes Documenting Scribe: Arturo Worthington Provider For Whom Scribe is Documenting (Include Credential): Twan Villarreal MD Scribe Attestation: I, Arturo Worthington, scribed for Twan Villarreal MD on 12/31/18 at 0702. Status of Scribe Document: Ready
--- NOTE | 2018-12-31 07:20 | ED ---
Progress - Progress Note Progress Note: This patient was signed out from Dr. Villarreal to Dr. Felipe at 0700 on 12/31/18, pending disposition, awaiting mental health evaluation. Mental Health Evaluation reveals the patients condition is stable and will be discharged to home with a followup with the ACT team and a Dx of overdose. Course/Dx - Course Course Of Treatment: This patient was signed out from Dr. Villarreal, pending disposition, awaiting mental health evaluation. Mental Health Evaluation reveals the patients condition is stable and will be discharged to home with a followup with the ACT team and a Dx of overdose. - Diagnoses Provider Diagnoses: Overdose Discharge - Sign-Out/Discharge Documenting (check all that apply): Patient Departure - Discharge - Discharge Plan Condition: Stable Disposition: HOME Patient Education Materials: Mood Disorders (ED) Referrals: No Primary Care Phys,NOPCP [Primary Care Provider] - - Attestation Statements Document Initiated by Scribe: Yes Documenting Scribe: Urvashi Newsome Provider For Whom Scribe is Documenting (Include Credential): Dr. Javed Felipe MD Scribe Attestation: Urvashi Brunner scribed for Dr. Javed Felipe MD on 12/31/18 at 0921. Status of Scribe Document: Ready
[2018-12-31 09:29] VITALS: BP 123/79
== END 2018-12-31 09:28 | disposition home or self-care (01) ==
LOC: ED 18:28
DX: T49 Poisoning by, adverse effect of and underdosing of topical agents primarily affecting skin and mucous membrane and by ophthalmological, otorhinorlaryngological and dental drugs (principal); R00.0 Tachycardia, unspecified; Y92.9 Unspecified place or not applicable; I10 Essential (primary) hypertension; F17.210 Nicotine dependence, cigarettes, uncomplicated
CPT/HCPCS: 36415; 80053; 80307; 80320; 80329; 81003; 84132; 84443; 85025; 93005; 99282; A9270-GY; G0480

== ENCOUNTER 2019-01-03 14:27 | Observation (INO) | payer OTHER ==
--- NOTE | 2019-01-03 15:00 | ED ---
Substance Abuse/Use - HPI Summary HPI Summary: This pt is a 28 y/o male presenting to [facility] via EMS for possible overdose. Patient was found lying on the street. The substance(s) ingested is unknown. Pt is lethargic. Pt has been seen regularly in the ED for similar complaints of overdose and alcohol intoxication, just this month (December) he has had 6 visits. HPI IS LIMITED DUE TO LEVEL 5 CAVEAT - pt is obtunded. - History Of Current Complaint Chief Complaint: EDOverdose Stated Complaint: UNRESPONSIVE PER EMS Time Seen by Provider: 01/03/19 14:39 Hx Obtained From: EMS Hx From Patient Unobtainable Due To: Other - LEVEL 5 CAVEAT - pt is obtunded Ingestion History: Type/Name Of Drug - unknown Overdose Characteristics: Other - unknown Timing Of Abuse: Binge Use Severity Currently: Moderate Character: Lethargic Aggravating Factor(s): Other - unknown Alleviating Factor(s): Other - unknown - Allergies/Home Medications Allergies/Adverse Reactions: Allergies Allergy/AdvReac Type Severity Reaction Status Date / Time No Known Allergies Allergy Verified 12/26/18 15:41 Home Medications: Home Medications BuPROPion XL* [Bupropion XL*] 300 mg PO DAILY 01/03/19 [History Confirmed ] risperiDONE TAB* [RisperDAL*] 1 mg PO DAILY 01/03/19 [History Confirmed 01/03/19 ] PMH/Surg Hx/FS Hx/Imm Hx Endocrine/Hematology History: Reports: Hx Thyroid Disease - Hypothyroidism Denies: Hx Anticoagulant Therapy, Hx Blood Disorders, Hx Blood Transfusions, Hx Bone Marrow Disease, Hx Diabetes, Hx Systemic Lupus Erythematosus, Hx Sickle Cell Disease, Hx Anemia, Hx Unexplained Bleeding, Other Endocrine/Hematological Disorders Cardiovascular History: Reports: Hx Hypertension Denies: Hx Aneurysm, Hx Angina, Hx Angioplasty, Hx Auto Implanted Cardiovert Defib, Hx Cardiac Arrest, Hx Cardiomegaly, Hx Congenital Heart Disease, Hx Congestive Heart Failure, Hx Coronary Artery Disease, Hx Deep Vein Thrombosis, Hx Embolism, Hx Hypercholesterolemia, Hx Hypotension, Hx Pacemaker/ICD, Hx Peripheral Vascular Disease, Hx Rheumatic Fever, Hx Syncope, Hx Valvular Heart Disease, Other Cardiovascular Problems/Disorders Respiratory History: Reports: Hx Pneumonia, Hx Seasonal Allergies Denies: Hx Asthma, Hx Chronic Bronchitis, Hx Chronic Obstructive Pulmonary Disease (COPD), Hx Cystic Fibrosis, Hx Lung Cancer, Hx Pleural Effusion, Hx Pulmonary Edema, Hx Pulmonary Embolism, Hx Sleep Apnea, Other Respiratory Problems/Disorders GI History: Reports: Hx Ulcer Denies: Hx Cirrhosis, Hx Crohn's Disease, Hx Diverticulosis, Hx Gall Bladder Disease, Hx Gastroesophageal Reflux Disease, Hx Gastrointestinal Bleed, Hx Hiatal Hernia, Hx Irritable Bowel, Hx Jaundice, Hx Obstructive Bowel, Hx Ileostomy, Hx Pyloric Stenosis, Other GI Disorders History: Denies: Hx Acute Renal Failure, Hx Benign Prostatic Hyperplasia, Hx Chronic Renal Failure, Hx Dialysis, Hx Kidney Infection, Hx Kidney Stones, Hx Renal Disease, Other Problems/Disorders Musculoskeletal History: Denies: Hx Arthritis, Hx Back Problems, Hx Bursitis, Hx Congenital Bone Abnormalities, Hx Fibromyalgia, Hx Gout, Hx Orthopedic Injury, Hx Osteoporosis, Hx Scoliosis, Hx Tendonitis, Other Musculoskeletal History Sensory History: Denies: Hx Cataracts, Hx Contacts or Glasses, Hx Eye Injury, Hx Eye Prosthesis, Hx Glaucoma, Hx Legally Blind, Hx Macular Degeneration, Hx Vision Problem, Hx Deafness, Hx Hearing Aid, Other Sensory Impairments Opthamlomology History: Denies: Hx Cataracts, Hx Contacts or Glasses, Hx Eye Injury, Hx Eye Prosthesis, Hx Glaucoma, Hx Legally Blind, Hx Macular Degeneration, Hx Vision Problem, Other Sensory Impairments Neurological History: Reports: Hx Headaches, Hx Seizures Denies: Hx Dementia, Hx Developmental Delay, Hx Migraine, Hx Nerve Disease, Hx Spinal Cord Injury, Hx Transient Ischemic Attacks (TIA), Other Neuro Impairments/Disorders Psychiatric History: Reports: Hx Anxiety, Hx Depression, Hx Post Traumatic Stress Disorder, Hx Inpatient Treatment, Hx Community Mental Health Tx, Hx Bipolar Disorder, Hx of Violent Episodes Against Others, Hx Substance Abuse, Other Psychiatric Issues/Disorders Denies: Hx Attention Deficit Hyperactivity Disorder, Hx Eating Disorder, Hx Panic Disorder, Hx Schizophrenia, Hx Suicide Attempt - Cancer History Cancer Type, Location and Year: None reported - Surgical History Surgery Procedure, Year, and Place: none Hx Anesthesia Reactions: No - Immunization History Date of Tetanus Vaccine: Unknown Date of Influenza Vaccine: None Infectious Disease History: No Infectious Disease History: Reports: Hx Hepatitis - Hep C Denies: Hx Clostridium Difficile, Hx Human Immunodeficiency Virus (HIV), Hx of Known/Suspected MRSA, Hx Shingles, Hx Tuberculosis, Hx Known/Suspected VRE, Hx Known/Suspected VRSA, History Other Infectious Disease, Traveled Outside the [place] in Last 30 Days - Family History Known Family History: Positive: Other - cancer Negative: Renal Disease Family History: father - ETOH - Social History Alcohol Use: Daily Alcohol Amount: beers Hx Substance Use: Yes Substance Use Type: Reports: Cocaine, Prescribed, Other Substance Use Comment - Amount & Last Used: 09/04, 09/05/18,09/06, 09/07, 09/08, 2018 Coricidin overdose Hx Tobacco Use: Yes Smoking Status (MU): Heavy Every Day Tobacco Smoker Type: Cigarettes Have You Smoked in the Last Year: Yes Review of Systems - ROS Summary Review of Systems Summary: ROS IS LIMITED DUE TO LEVEL 5 CAVEAT - pt is obtunded Negative: Fever Neurological: Other - POSITIVE: obtunded All Other Systems Reviewed And Are Negative: No Physical Exam - Summary Physical Exam Summary: Appearance: Patient is obtunded, he is arousable and turns head to voice. He is unable to answer questions or follow commands. Skin: Warm, dry, no obvious rash Eyes: sclera anicteric, no conjunctival pallor ENT: mucous membranes moist, pharynx appears normal Neck: Supple, nontender Respiratory: Clear to auscultation, no signs of respiratory distress Cardiovascular: Normal S1, S2. No murmurs. Normal distal pulses in tibial and radial bilaterally. Abdomen: Soft, nontender, normal active bowel sounds present Musculoskeletal: Normal, Strength/ROM Intact Neurological: Patient is obtunded. Triage Information Reviewed: Yes Vital Signs On Initial Exam: Initial Vitals Temp Pulse Resp BP Pulse Ox 97.5 F 77 16 90/78 91 01/03/19 14:34 01/03/19 14:34 01/03/19 14:34 01/03/19 14:34 01/03/19 14:34 Vital Signs Reviewed: Yes Completion Of Physical Exam Limited Due To: Level 5 - pt is obtunded Diagnostics - Vital Signs Vital Signs Temp Pulse Resp BP Pulse Ox 01/03/19 14:34 97.5 F 77 16 90/78 91 - Laboratory Result Diagrams: 01/04/19 06:13 01/04/19 06:13 Lab Statement: Any lab studies that have been ordered have been reviewed, and results considered in the medical decision making process. Re-Evaluation - Re-Evaluation First Eval Re-Evaluation Time: 21:45 Comment: pt is nonverbal at this time. Course/Dx - Course Assessment/Plan: Pt is a 28 y/o male presenting to [facility] via EMS for possible overdose. Patient was found lying on the street. The substance ingested is unknown. On exam patient is obtunded, he is arousable and turns head to voice. He is unable to answer questions or follow commands. Test results unremarkable except for potassium of 3, glucose of 129, serum alcohol of 94. Pt will be signed out to Dr. Villarreal pending sobriety. - Diagnoses Provider Diagnoses: Overdose Discharge - Sign-Out/Discharge Documenting (check all that apply): Sign-Out Patient Signing out patient TO: Twan Villarreal - pending sobriety All imaging exams completed and their final reports reviewed: No Studies Patient Received Moderate/Deep Sedation with Procedure: No - Discharge Plan Condition: Stable - Attestation Statements Document Initiated by Scribe: Yes Documenting Scribe: Mel Doty Provider For Whom Scribe is Documenting (Include Credential): Brayan Richardson MD Scribe Attestation: Mel Brunner, scribed for Brayan Richardson MD on 01/04/19 at 0723. Status of Scribe Document: Ready
[2019-01-03 15:23] LABS: ABS Basophils 0.1 10^3/ul (0-0.2); ABS Eosinophils 0.1 10^3/ul (0-0.6); ABS Lymphocytes 1.9 10^3/ul (1.0-4.8); ABS Monocytes 0.6 10^3/ul (0-0.8); ABS Neutrophils 3.4 10^3/ul (1.5-7.7); Hematocrit 42 % (42-52); Hemoglobin 14.2 g/dL (14.0-18.0); Lymphocyte % 31.9 %; Mean Corpuscular HGB Conc 34 g/dL (31-36); Mean Corpuscular Hemoglobin 29 pg (27-31); Mean Corpuscular Volume 85 fL (80-94); Mean Platelet Volume 7.9 fL (7.4-10.4); Platelet Count 202 10^3/uL (150-450); Red Blood Count 4.94 10^6 /uL (4.18-5.48); Red Cell Distribution Width 18 % (10-15); White Blood Count 6.1 10^3/uL (3.5-10.8)
[2019-01-03 15:44] LABS: ALT 33 U/L (7-52); AST 29 U/L (13-39); Albumin 3.9 g/dL (3.2-5.2); Albumin/Globulin Ratio 1.5 (1-3); Alkaline Phosphatase 61 U/L (34-104); Anion Gap 9 mmol/L (2-11); BUN/Creatinine Ratio 11.6 (8-20); Blood Urea Nitrogen 10 mg/dL (6-24); CO2 Carbon Dioxide 27 mmol/L (22-32); Calcium 8.5 mg/dL (8.6-10.3); Chloride 104 mmol/L (101-111); EGFR African American 128.1 (>60); EGFR Non-African American 105.9 (>60); Globulin 2.6 g/dL (2-4); Glucose 129 mg/dL (70-100); Sodium 140 mmol/L (135-145); Total Protein 6.5 g/dL (6.4-8.9)
[2019-01-03 16:00] LABS: Acetaminophen < 15 mcg/mL; Alcohol 94 mg/dL (<10); Salicylate < 2.50 mg/dL (<30)
[2019-01-03] MEDS ORDERED: KCL 10 MEQ/50 ML IVPREMIX* 10 MEQ/50 ML BAG IV ONE (19:11)
[2019-01-03] MEDS ORDERED: NS 0.9% 1000 ML** 2,000 ML IV ONE (19:11)
--- NOTE | 2019-01-03 19:14 | ED ---
Progress - Progress Note Progress Note: This patient is a signout from Dr. Richardson to Dr. Villarreal at 0700 01/03/19 shift change pending sobriety. EKG at 2321 shows sinus rhythm, 79 BPM, normal axis, normal interval, no ischemic changes. At 2130, Dr. Villarreal discusses pt's case with Dr. Harmon, hospitalist, who agrees to admit pt. Dx is overdose. Re-Evaluation - Re-Evaluation First Eval Re-Evaluation Time: 21:45 Comment: pt is nonverbal at this time. Course/Dx - Course Course Of Treatment: This patient is a signout from Dr. Richardson to Dr. Villarreal at 0700 01/03/19 shift change pending sobriety. EKG at 2321 shows sinus rhythm, 79 BPM, normal axis, normal interval, no ischemic changes. At 2130, Dr. Villarreal discusses pt's case with Dr. Harmon, hospitalist, who agrees to admit pt. Dx is overdose. - Diagnoses Provider Diagnoses: Overdose - Provider Notifications Discussed Care Of Patient With: Lui Harmon Time Discussed With Above Provider: 21:30 Instructed by Provider To: Other - Dr. Villarreal discusses pt's case with Dr. Harmon , hospitalist, who agrees to admit pt. Discharge - Sign-Out/Discharge Documenting (check all that apply): Receiving Sign-Out Receiving patient FROM: Brayan Richardson - This patient is a signout from Dr. Richardson to Dr. Villarreal at 0700 01/03/19 shift change pending sobriety. Patient Received Moderate/Deep Sedation with Procedure: No - Discharge Plan Condition: Stable Referrals: [facility] [Outside] - Attestation Statements Document Initiated by Scribe: Yes Documenting Scribe: Johnny Padilla Provider For Whom Scribe is Documenting (Include Credential): Dr. Twan Villarreal MD Scribe Attestation: I, Johnny Padilla, scribed for Dr. Twan Villarreal MD on 01/03/19 at 2344. Status of Scribe Document: Ready
[2019-01-03 20:05] LABS: Creatine Kinase 331 U/L (10-223)
[2019-01-03 20:14] LABS: Urine Benzodiazepine Screen None Detected (None Detect); Urine Opiates Screen None Detected (None Detect)
[2019-01-03] MEDS ORDERED: Lorazepam PYXIS KEY ONE (23:09)
[2019-01-03] MEDS ORDERED: LORazepam INJ* 2 MG/ML 1 ML VIAL ONE (23:10)
[2019-01-03] MEDS ORDERED: LORazepam INJ* 2 MG/ML 1 ML VIAL IV PUSH ONE (23:14)
[2019-01-04] MEDS ORDERED: Thiamine IV* 100 MG/ML 2 ML VIAL IM ONE (01:22)
[2019-01-04] MEDS ORDERED: NS 0.9% 1000 ML** 1,000 ML IV SCH (01:30)
--- NOTE | 2019-01-04 03:24 | HP ---
ADMISSION HISTORY AND PHYSICAL: DATE OF ADMISSION: 01/04/19 CHIEF COMPLAINT: Altered mental status. HISTORY OF PRESENT ILLNESS: This is a 28-year-old transgender male who was brought in by the EMS for possible overdose. The patient was apparently found on the street, lethargic. No history could be obtained from the patient as he was unattended, but the patient does have multiple admissions to the hospital for Coricidin and alcohol intoxication and alcohol overdose and Coricidin overdose. He has also had multiple psychiatric admissions in the past as well. No further history could be obtained by the patient as he was just minimally responsive and kept saying his name was Siria, but he was responding to his name of Fernie. PAST MEDICAL HISTORY: As mentioned, he has been admitted previously for Coricidin cough medication abuse along with liquor abuse and has prior diagnosis from Psychiatry including opiate dependence, Coricidin dependence, substance-induced mood disorder, alcohol use disorder, malingering, unspecified personality disorder, suicide and homicide attempts in the past and previous admissions to the ICU for accidental drug overdose. Chronic hepatitis C and possible history of seizure disorder and possible history of hypertension. HOME MEDICATIONS: The patient is on: 1. Risperdal. 2. Bupropion. ALLERGIES: No known drug allergies documented. FAMILY HISTORY: We are currently unable to obtain. SOCIAL HISTORY: We are currently unable to obtain. PHYSICAL EXAMINATION GENERAL: The patient initially was obtunded but during my evaluation was getting more aroused and answered that his name was Siria but otherwise did not keep the conversation going and would fall back asleep. VITAL SIGNS: In the ER, temperature was documented to be 97.5 upon arrival, BP was noted to be 97/64, heart rate 68, saturating 99% on room air with respiratory rate of 15. HEAD AND NECK: Atraumatic, normocephalic. Bilateral pupils were reactive. Neck supple. No jugular venous distention. LUNGS: Clear to auscultation bilaterally. No wheezing, rhonchi, rales. HEART: S1, S2. Regular rate and rhythm. ABDOMEN: Soft, nontender, nondistended. EXTREMITIES: No cyanosis, clubbing, or edema. DIAGNOSTIC STUDIES/LAB DATA: CBC was unremarkable. ABG shows pH of 7.39, pCO2 elevated at 49, pO2 noted to be at 120 and oxygen saturation of 98.9%. Comprehensive metabolic panel shows potassium decreased at 3.0, but otherwise sodium chloride, bicarb, and creatinine were all within normal limits. Random glucose was minimally elevated at 129. Total creatine kinase was noted to be minimally elevated at 331. AST and ALT were within normal limits. Toxicology screen shows elevated serum alcohol level at 94. Urine drug screens were completely negative. Tylenol and salicylate levels were also noted to be undetectable. Portable chest x-ray did not show any obvious infiltrate but this was a very skewed image. Official read by radiologist is still pending. CT brain was read as no acute intracranial findings. EKG shows sinus rhythm at 79 beats per minute without any ST segment changes. When compared to his old EKG from 5 days ago, there was no significant change. IMPRESSION: This is a 28-year-old transgender male here due to possible alcohol intoxication and Coricidin use. For now, still has decreased mentation. 1. Altered mental status secondary to polysubstance abuse with possible alcohol and possible Coricidin given the history of. I will monitor the patient on general medical floor. We will start the patient on IV fluids with banana bag and keep the patient n.p.o. for now. Once he is more awake and following commands, we can consider starting the patient on a p.o. diet. We will also consult Psychiatry to evaluate the patient to see if the patient may benefit from any inpatient detoxification therapy, although records indicate he has been admitted in the past without much benefit for his alcohol detox. At this point, I would not start any Ativan for WAM protocol given the fact that the patient is still altered now. Once he is more agitated and his WAM score is elevated, we could consider starting the patient on IV Ativan or p.o. Ativan accordingly. 2. History of depression and bipolar disorder. I will consider restarting his home medications once he is more awake and based on psychiatry recommendation. 3. DVT prophylaxis with sequential compression device. [id number]/[facility] #: [id number] [facility]
[2019-01-04 06:54] LABS: Albumin 3.7 g/dL (3.2-5.2); Potassium 3.6 mmol/L (3.5-5.0); Total Bilirubin 0.5 mg/dL (0.2-1.0)
[2019-01-04 07:00] LABS: Albumin/Globulin Ratio 1.7 (1-3); BUN/Creatinine Ratio 9.8 (8-20); EGFR African American 118.5 (>60); Globulin 2.2 g/dL (2-4); Total Protein 5.9 g/dL (6.4-8.9)
[2019-01-04 07:04] LABS: Hematocrit 43 % (42-52); Hemoglobin 13.7 g/dL (14.0-18.0); Mean Corpuscular HGB Conc 32 g/dL (31-36); Mean Corpuscular Hemoglobin 28 pg (27-31); Mean Corpuscular Volume 89 fL (80-94); Red Blood Count 4.84 10^6 /uL (4.18-5.48); Red Cell Distribution Width 18 % (10-15); White Blood Count 11.4 10^3/uL (3.5-10.8)
[2019-01-04 07:59] LABS: ABS Lymphocytes 2.2 10^3/ul (1.0-4.8); ABS Monocytes 1.2 10^3/ul (0-0.8); ABS Neutrophils 7.9 10^3/ul (1.5-7.7); Eosinophil % 0.1 %; Lymphocyte % 19.1 %; Mean Platelet Volume 8.8 fL (7.4-10.4); Platelet Count 93 10^3/uL (150-450)
--- NOTE | 2019-01-04 08:43 | PN ---
Subjective Date of Service: 01/04/19 Family History: Unchanged from Admission Social History: Unchanged from Admission Past Medical History: Unchanged from Admission Objective Active Medications: Sodium Chloride (Ns 0.9% 1000 Ml) 1,000 mls @ 125 mls/hr IV PER RATE [facility] Last Admin: 01/04/19 03:41 Dose: 125 mls/hr Thiamine HCl 100 mg/ Folic Acid 1 mg/ Multivitamins 10 ml / Sodium Chloride 1, 011.2 mls @ 249.013 mls/hr IV DAILY [facility] Stop: 01/07/19 08:59 Nicotine Polacrilex (Nicotine Lozenge Mini) 2 mg MT Q2H PRN PRN Reason: CRAVING Vital Signs - 8 hr 01/04/19 01/04/19 01/04/19 00:53 01:00 01:24 Temperature Pulse Rate 90 92 99 Respiratory 24 30 25 Rate Blood Pressure 153/111 153/111 (mmHg) O2 Sat by Pulse 96 96 97 Oximetry 01/04/19 01/04/19 01/04/19 01:34 02:00 02:10 Temperature 98.0 F Pulse Rate 92 97 88 Respiratory 27 32 22 Rate Blood Pressure 148/100 148/100 (mmHg) O2 Sat by Pulse 97 96 100 Oximetry 01/04/19 01/04/19 01/04/19 02:51 03:01 05:07 Temperature 98.2 F 98.2 F 99.1 F Pulse Rate 101 101 82 Respiratory 18 18 16 Rate Blood Pressure 157/103 157/103 141/97 (mmHg) O2 Sat by Pulse 99 99 98 Oximetry 01/04/19 07:06 Temperature 98.6 F Pulse Rate 77 Respiratory 26 Rate Blood Pressure 141/91 (mmHg) O2 Sat by Pulse 99 Oximetry Oxygen Devices in Use Now: None Result Diagrams: 01/04/19 06:13 01/04/19 06:13 Assess/Plan/Problems-Billing Assessment: - Patient Problems (1) Thrombocytopenia Current Visit: Yes Status: Acute Code(s): D69.6 - THROMBOCYTOPENIA, UNSPECIFIED SNOMED Code(s): 312372736 (2) Alcohol intoxication Current Visit: No Status: Acute Comment: Resolved. (3) Polysubstance abuse Current Visit: No Status: Acute Priority: High Onset Date: 07/31/15 Code (s): F19.10 - OTHER PSYCHOACTIVE SUBSTANCE ABUSE, UNCOMPLICATED SNOMED Code(s) : 985277028 Comment: - Overdosed on Coricidin for recreational purposes. 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
[2019-01-04] MEDS ORDERED: Thiamine IV 100 MG, Folic Acid IV* 1 MG, Multiple Vitamin IV ADULT* 10 ML in NS 0.9% 10... IV SCH (09:00)
[2019-01-04] MEDS: Nicotine Lozenge* mini 2 MG LOZNG.MINI MT PRN ×3 (09:03→14:57)
--- NOTE | 2019-01-04 11:00 | CONSULT ---
Identification - Patient Identification Reason for Psychiatric Consultation: Incapacitating Symptoms -: Patient is a 28 year old, M admitted on 01/04/19. - MHU Identification Employment Status: Unemployed Hx Psychiatric Hospitalization: Yes History - Objective HPI: Psychiatry meets with "Siria" on the [address] [place] [address] telemetry unit following her hospitalization for dextromethorphan and alcohol intoxication. The patient is now awake and alert, chatting socially with the 1:1 aide. She denies that the overdose was suicidal and states that she was just trying to "get high." This clinician also spoke with ACT steam shovel oiler Sue Westbrook, who indicates that they successfully housed Siria one week ago at a local boarding home on [facility] in [facility]. The ACT team is trying to arrange a meeting of community stake holders, likely including Zeynep GILBERT [facility], [facility] and the psych, ED and Hospitalist departments of the hospital so that we can create a more comprehensive plan for Siria's continued care. Siria denies SI or HI and is calm and cooperative on examination. Exam Appearance: Well Developed/Nourished Hygiene: Normal Grooming: Well Kept Psychomotor Activities: Normal Exhibits Abnormal Movement: No Attitude and Relatedness: Cooperative Eye Contact: Good - Speech Quality: Unpressured Latencies: Normal Quantity: Appropriate Patient's Decription of Mood: "Fine" Affect Consistent with: Euthymia Patient's Thought Process: Coherent Thought Content: No Passive Wish, No Suicidal Planning, No Homicidal Ideation, No Paranoid Ideation Experiencing Hallucinations: No, Sensorium is Clear Type of Hallucinations: Visual: No, Auditory: No, Command: No Level of Consciousness: Alert Orientation: Yes Intact, Yes Orientated to Time, Yes Orientated to Place, Yes Orientated to Person Impulse Control: Poor Insight and Judgement: Impaired Impression - Impression Clinical Impression: 28 y.o. single, white, transgendered male to female with a history of dangerous recreational, habitual use of dextromethorphan and other substances in the community, who is currently admitted due to drug intoxication and unresponsiveness. Inpatient DSM-V Dx: F19.10 Merits Inpatient Hospitalization: No BSU: Problem List - Patient Problems (1) Polysubstance abuse Current Visit: No Status: Acute Priority: High Onset Date: 07/31/15 Code (s): F19.10 - OTHER PSYCHOACTIVE SUBSTANCE ABUSE, UNCOMPLICATED SNOMED Code(s) : 536460090 Comment: - Overdosed on Coricidin for recreational purposes. 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 He will f/u with the ACT team tomorrow (01/05) at his residence on [facility] [address] [facility]. We recommend continued 1:1 monitoring to prevent misuse of hand drum stenciler in an attempt to re-intoxicate himself. Psychiatry is signing off but is eager to participate with other stakeholders in the community to formulate a safer, more comprehensive treatment strategy moving forward. Medications: Current Medications Sodium Chloride (Ns 0.9% 1000 Ml) 1,000 mls @ 125 mls/hr IV PER RATE [facility] Last Admin: 01/04/19 03:41 Dose: 125 mls/hr Thiamine HCl 100 mg/ Folic Acid 1 mg/ Multivitamins 10 ml / Sodium Chloride 1, 011.2 mls @ 249.013 mls/hr IV DAILY [facility] Stop: 01/07/19 08:59 Last Admin: 01/04/19 09:24 Dose: 249.013 mls/hr Nicotine Polacrilex (Nicotine Lozenge Mini) 2 mg MT Q2H PRN PRN Reason: CRAVING Last Admin: 01/04/19 09:03 Dose: 2 mg - Discharge Plan Discharge Plan: Outpatient Follow Up
[2019-01-04 14:44] LABS: Hematocrit 40 % (42-52); Hemoglobin 13.3 g/dL (14.0-18.0); Mean Corpuscular HGB Conc 33 g/dL (31-36); Mean Corpuscular Hemoglobin 29 pg (27-31); Mean Corpuscular Volume 86 fL (80-94); Mean Platelet Volume 8.5 fL (7.4-10.4); Platelet Count 152 10^3/uL (150-450); Red Blood Count 4.63 10^6 /uL (4.18-5.48); Red Cell Distribution Width 18 % (10-15); White Blood Count 7.6 10^3/uL (3.5-10.8)
[2019-01-04 15:10] VITALS: BP 153/91
--- NOTE | 2019-01-05 04:30 | DS ---
DISCHARGE SUMMARY: DATE OF ADMISSION: 01/04/19 DATE OF DISCHARGE: 01/04/19 PROVIDER: Cari Meehan NP. ATTENDING PHYSICIAN WHILE IN THE HOSPITAL: Dr. Akin Jack * (dictated by Cari Meehan NP). PRIMARY CARE PHYSICIAN: Sandra Welch. PRIMARY DIAGNOSES: 1. Overdose of Mucinex DM. 2. Alcohol abuse. SECONDARY DIAGNOSES: 1. Polysubstance abuse. 2. Depression. 3. History of polysubstance abuse, Coricidin dependence. 4. Personality disorder. 5. Chronic hepatitis C. 6. Possible history of seizures. 7. Possible history of hypertension. STUDIES COMPLETED WHILE IN THE HOSPITAL: 1. The patient had routine lab work drawn. He has found to have an alcohol level of 94. 2. He had an electrocardiogram, which showed sinus rhythm at a rate of 79, QT was 416, QTc was 477, QRSd was 102. 3. He had a CT of the brain, radiologist's impression: No acute hemorrhage, no intracranial mass or mass effect. Bull and white matter normal in appearance. Brainstem and cerebellum are intact. No change from his prior studies. No acute intracranial findings on CT of the brain. 4. He had a chest x-ray, radiologist's impression: Low lung volumes, bibasilar infiltrates suggestive of atelectasis. Lungs are under aerated with small infiltrates in both lung bases suggestive of atelectasis. HOME MEDICATIONS: Continued home medications: 1. Wellbutrin XR 300 mg p.o. daily. 2. Risperdal 1 mg p.o. daily. HISTORY OF PRESENT ILLNESS AND HOSPITAL COURSE: Mr. Angeles, who currently goes by " Siria", who presented to the emergency room on 01/03/19 by EMS for possible overdose. The patient was apparently found on the street lethargic. No history could be obtained from the patient and he was unattended, but the patient does have multiple admissions to the hospital for Coricidin and alcohol intoxication and alcohol overdose and Coricidin overdose. He also has had multiple psychiatric admissions in the past as well. Initially, on admission to the emergency room, no further history could be obtained due to the patient' s level of responsiveness. The patient was seen and evaluated this a.m. The patient reports that he drank three 25-ounce beers that were 8% alcohol and took 60 tablets of Mucinex DM 30 mg. The patient reports that he tried something new. He reports that he took this medication to get high. He denied any suicidal or homicidal ideation. The patient reports that he has been thinking, he reports that he would feel better about himself if he was able to have a gender transformation surgery completed. I did contact Poison Control in regards to overdose of Mucinex DM. They had recommended supportive care and monitoring initially for 6 hours after ingestion. This being approximately 24 hours after ingestion at the time of calling Poison Control, no further management is needed and the case was signed off. The patient was seen and evaluated by Psychiatry who recommended discharging the patient back to his apartment. He is to follow up with ACT tomorrow. Psychiatry also contacted Sue Ag, the [facility] sales team recruiter, who reported that Siria was successfully placed 1 week ago in local boarding home on [facility] in [facility]. At the current time, the ACT teams is currently trying to arrange meeting with community stakeholders likely including [facility], [facility] and the psych, ED and hospitalist departments to create a more comprehensive plan for Siria's continued care. The patient did have a routine lab work during this hospitalization. Initially , was found to have a platelet count of 202. Repeat lab work tis morning showed a platelet count of 93. Labs were again repeated at 1300 today and again his platelet count was 153. I suspect the drop in platelets was lab error , as the repeat draw did show normal platelet counts. His repeat lab work this morning also showed leukocytosis of 11.4 and repeat at 1 o'clock this afternoon showed a normal white count. Again, I think the labs work that was drawn at 06: 13 a.m. could possibly be a lab error. Given repeat lab work with normal findings, the patient is stable to be discharged back to his apartment in [place]. Vital signs are as follows: Blood pressure 153/91, heart rate 84, respirations 18, and O2 saturation 98% on room air, temperature was 98.4. DISCHARGE PLAN: The patient will be discharged back home. 1. Mucinex DM overdose: Poison Control was contacted during this hospitalization. Recommended 6 hours of monitoring, which has been completed. The patient's mental status has returned to baseline. He is alert and oriented and conversing without difficulty. He is back at baseline and stable for discharge at this time. I recommended the patient to take no other medications than what is prescribed for him and take the medications as prescribed. The patient denies any suicidal or homicidal ideation. The patient should follow up with the primary care provider in 4 to 7 days. Referrals to [facility] has been made. 2. Alcohol abuse: The patient does have a history of alcohol abuse. The patient did have an alcohol level of 94 on remission. He does report drinking 3 beers prior to coming to the emergency room. I have recommended the patient abstain from any further alcohol use or polysubstance abuse. 3. Depression: The patient should continue on his medications as previously prescribed. FOLLOWUP: The patient should followup with [facility] in 4 to 7 days. He will have a followup with ACT tomorrow 01/05/19 at his residence in [facility]. The patient was instructed to return to the emergency room for any chest pain, shortness of breath, fever, chills or any other concerning symptoms. I have discussed with my attending, Dr. Akin Jack and he is in agreement with my plan. CARI MEEHAN, SANDRA [id number]/[facility] #: [id number] SOLO
== END 2019-01-04 17:50 | disposition home or self-care (01) ==
LOC: ED 14:27 → MEDTELE 01-04 01:22 → INTOOBSV 01-04 01:22
PROVIDERS: ADMIT Internal Medicine; ATTEND Internal Medicine
DX: T48.4X1A Poisoning by expectorants, accidental (unintentional), initial encounter (principal); X58.XXXA Exposure to other specified factors, initial encounter; F10.129 Alcohol abuse with intoxication, unspecified; F31.9 Bipolar disorder, unspecified; B18.2 Chronic viral hepatitis C; D69.6 Thrombocytopenia, unspecified; F19.20 Other psychoactive substance dependence, uncomplicated; F60.9 Personality disorder, unspecified; Z79.899 Other long term (current) drug therapy; E03.9 Hypothyroidism, unspecified; F17.210 Nicotine dependence, cigarettes, uncomplicated
CPT/HCPCS: 36415; 70450; 71045; 80053; 80307; 80320; 80329; 82550; 82803; 85025; 85027; 85060; 93005; 96361; 96372; 96374; 99284; 99285; G0378; G0480; J2060; J3411; J3480

== ENCOUNTER 2019-01-06 22:58 | Emergency (ER) | payer OTHER ==
--- NOTE | 2019-01-06 23:53 | ED ---
Substance Abuse/Use - HPI Summary HPI Summary: Patient is a 28 year old M brought to [facility] by EMS with a chief complaint of substance abuse. Patient reports he snorted 26 300 mg Wellbutrin tablets, per triage, over the past 2 days to get high. Patient reports he called the EMS because he started hallucinating very frequently. Per triage, patient denies SI and use of other substances and alcohol consumption. Symptoms aggravated by nothing. Symptoms alleviated by nothing. - History Of Current Complaint Chief Complaint: EDOverdose Stated Complaint: OVERDOSE PER EMS Hx Obtained From: Patient Onset/Duration of Drug/ETOH Abuse: Days - 2 Ingestion History: Type/Name Of Drug - Wellbutrin Overdose Characteristics: Inhalation Aggravating Factor(s): Nothing Alleviating Factor(s): Nothing Associated Signs And Symptoms: Hallucinating - Allergies/Home Medications Allergies/Adverse Reactions: Allergies Allergy/AdvReac Type Severity Reaction Status Date / Time No Known Allergies Allergy Verified 12/26/18 15:41 PMH/Surg Hx/FS Hx/Imm Hx Endocrine/Hematology History: Reports: Hx Thyroid Disease - Hypothyroidism Denies: Hx Anticoagulant Therapy, Hx Blood Disorders, Hx Blood Transfusions, Hx Bone Marrow Disease, Hx Diabetes, Hx Systemic Lupus Erythematosus, Hx Sickle Cell Disease, Hx Anemia, Hx Unexplained Bleeding, Other Endocrine/Hematological Disorders Cardiovascular History: Reports: Hx Hypertension Denies: Hx Aneurysm, Hx Angina, Hx Angioplasty, Hx Auto Implanted Cardiovert Defib, Hx Cardiac Arrest, Hx Cardiomegaly, Hx Congenital Heart Disease, Hx Congestive Heart Failure, Hx Coronary Artery Disease, Hx Deep Vein Thrombosis, Hx Embolism, Hx Hypercholesterolemia, Hx Hypotension, Hx Pacemaker/ICD, Hx Peripheral Vascular Disease, Hx Rheumatic Fever, Hx Syncope, Hx Valvular Heart Disease, Other Cardiovascular Problems/Disorders Respiratory History: Reports: Hx Pneumonia, Hx Seasonal Allergies Denies: Hx Asthma, Hx Chronic Bronchitis, Hx Chronic Obstructive Pulmonary Disease (COPD), Hx Cystic Fibrosis, Hx Lung Cancer, Hx Pleural Effusion, Hx Pulmonary Edema, Hx Pulmonary Embolism, Hx Sleep Apnea, Other Respiratory Problems/Disorders GI History: Reports: Hx Ulcer Denies: Hx Cirrhosis, Hx Crohn's Disease, Hx Diverticulosis, Hx Gall Bladder Disease, Hx Gastroesophageal Reflux Disease, Hx Gastrointestinal Bleed, Hx Hiatal Hernia, Hx Irritable Bowel, Hx Jaundice, Hx Obstructive Bowel, Hx Ileostomy, Hx Pyloric Stenosis, Other GI Disorders History: Denies: Hx Acute Renal Failure, Hx Benign Prostatic Hyperplasia, Hx Chronic Renal Failure, Hx Dialysis, Hx Kidney Infection, Hx Kidney Stones, Hx Renal Disease, Other Problems/Disorders Musculoskeletal History: Denies: Hx Arthritis, Hx Back Problems, Hx Bursitis, Hx Congenital Bone Abnormalities, Hx Fibromyalgia, Hx Gout, Hx Orthopedic Injury, Hx Osteoporosis, Hx Scoliosis, Hx Tendonitis, Other Musculoskeletal History Sensory History: Denies: Hx Cataracts, Hx Contacts or Glasses, Hx Eye Injury, Hx Eye Prosthesis, Hx Glaucoma, Hx Legally Blind, Hx Macular Degeneration, Hx Vision Problem, Hx Deafness, Hx Hearing Aid, Other Sensory Impairments Opthamlomology History: Denies: Hx Cataracts, Hx Contacts or Glasses, Hx Eye Injury, Hx Eye Prosthesis, Hx Glaucoma, Hx Legally Blind, Hx Macular Degeneration, Hx Vision Problem, Other Sensory Impairments Neurological History: Reports: Hx Headaches, Hx Seizures Denies: Hx Dementia, Hx Developmental Delay, Hx Migraine, Hx Nerve Disease, Hx Spinal Cord Injury, Hx Transient Ischemic Attacks (TIA), Other Neuro Impairments/Disorders Psychiatric History: Reports: Hx Anxiety, Hx Depression, Hx Post Traumatic Stress Disorder, Hx Inpatient Treatment, Hx Community Mental Health Tx, Hx Bipolar Disorder, Hx of Violent Episodes Against Others, Hx Substance Abuse, Other Psychiatric Issues/Disorders Denies: Hx Attention Deficit Hyperactivity Disorder, Hx Eating Disorder, Hx Panic Disorder, Hx Schizophrenia, Hx Suicide Attempt - Cancer History Cancer Type, Location and Year: None reported - Surgical History Surgery Procedure, Year, and Place: none Hx Anesthesia Reactions: No - Immunization History Date of Tetanus Vaccine: Unknown Date of Influenza Vaccine: None Infectious Disease History: No Infectious Disease History: Reports: Hx Hepatitis - Hep C Denies: Hx Clostridium Difficile, Hx Human Immunodeficiency Virus (HIV), Hx of Known/Suspected MRSA, Hx Shingles, Hx Tuberculosis, Hx Known/Suspected VRE, Hx Known/Suspected VRSA, History Other Infectious Disease, Traveled Outside the [place] in Last 30 Days - Family History Known Family History: Positive: Other - cancer Negative: Renal Disease Family History: father - ETOH - Social History Alcohol Use: Daily Alcohol Amount: beers Hx Substance Use: Yes Substance Use Type: Reports: Cocaine, Prescribed, Other Substance Use Comment - Amount & Last Used: 09/04, 09/05/18,09/06, 09/07, 09/08, 2018 Coricidin overdose Hx Tobacco Use: Yes Smoking Status (MU): Heavy Every Day Tobacco Smoker Type: Cigarettes Have You Smoked in the Last Year: Yes Review of Systems Negative: Fever Neurological: Other - hallucinations Psychological: Other - substance abuse Positive: Other - denies SI All Other Systems Reviewed And Are Negative: Yes Physical Exam - Summary Physical Exam Summary: VITAL SIGNS: Reviewed. GENERAL: Patient is a well-developed and nourished MALE who is lying comfortable in the stretcher. Patient is not in any acute respiratory distress. HEAD AND FACE: No signs of trauma. No ecchymosis, hematomas or skull depressions. No sinus tenderness. EYES: PERRLA, EOMI x 2, No injected conjunctiva, no nystagmus. EARS: Hearing grossly intact. Ear canals and tympanic membranes are within normal limits. MOUTH: Oropharynx within normal limits. NECK: Supple, trachea is midline, no adenopathy, no JVD, no carotid bruit, no c- spine tenderness, neck with full ROM CHEST: Symmetric, no tenderness at palpation LUNGS: Clear to auscultation bilaterally. No wheezing or crackles. CVS: Regular rate and rhythm, S1 and S2 present, no murmurs or gallops appreciated. ABDOMEN: Soft, non-tender. No signs of distention. No rebound no guarding, and no masses palpated. Bowel sounds are normal. EXTREMITIES: FROM in all major joints, no edema, no cyanosis or clubbing. NEURO: Alert and oriented x 3. No acute neurological deficits. Speech is normal and follows commands. SKIN: Dry and warm Triage Information Reviewed: Yes Vital Signs On Initial Exam: Initial Vitals Temp Pulse Resp BP Pulse Ox 98.5 F 95 20 156/103 97 01/06/19 23:09 01/06/19 23:09 01/06/19 23:09 01/06/19 23:09 01/06/19 23:09 Vital Signs Reviewed: Yes Diagnostics - Vital Signs Vital Signs Temp Pulse Resp BP Pulse Ox 01/06/19 23:09 98.5 F 95 20 156/103 97 - Laboratory Result Diagrams: 01/07/19 00:32 01/07/19 00:32 Lab Statement: Any lab studies that have been ordered have been reviewed, and results considered in the medical decision making process. - EKG 2356 Cardiac Rate: NL - 86 BPM EKG Rhythm: Sinus Rhythm Summary of EKG Findings: Sinus rhythm at 86 BPM, Normal axis, Normal interval, and No ischemic changes Course/Dx - Course Course Of Treatment: Patient is a 28 year old M brought to [facility] by EMS with a chief complaint of substance abuse. Patient reports he snorted 26 300 mg Wellbutrin tablets, per triage, over the past 2 days to get high. Patient reports he called the EMS because he started hallucinating very frequently. Per triage, patient denies SI and use of other substances and alcohol consumption. Physical exam shows no abnormalities. Bloodwork shows no abnormalities except for Hgb 13.0 L, Hct 39 L, RDW 17 H, Potassium 2.9 L, Glucose 107 H, Total Bilirubin 1.10 H, AST 91 H, and TSH 6.44 H. Patient was given potassium chloride 40 meq PO in the ED. EKG reveals Sinus rhythm at 86 BPM, Normal axis, Normal interval, and No ischemic changes. Physician discussed discharge with patient who agrees to discharge. Patient will be discharged. Patient will follow up with primary care provider within 3 days. - Diagnoses Provider Diagnoses: Substance abuse Discharge - Sign-Out/Discharge Documenting (check all that apply): Patient Departure - discharge Patient Received Moderate/Deep Sedation with Procedure: No - Discharge Plan Condition: Stable Disposition: HOME Patient Education Materials: Polysubstance Abuse (ED) Referrals: [facility]YSICIAN REFERRAL [Outside] - 3 Days Additional Instructions: Follow up with primary care provider within 3 days. PLEASE RETURN TO THE ED IMMEDIATELY FOR WORSENING OR CONCERNING SYMPTOMS. - Attestation Statements Document Initiated by Scribe: Yes Documenting Scribe: Mary Pan Provider For Whom Scribe is Documenting (Include Credential): Twan Villarreal MD Scribe Attestation: Mary Brunner, scribed for Twan Villarreal MD on 01/07/19 at 0640. Status of Scribe Document: Ready
[2019-01-07 00:49] LABS: ABS Eosinophils 0.1 10^3/ul (0-0.6); ABS Lymphocytes 1.7 10^3/ul (1.0-4.8); ABS Monocytes 0.8 10^3/ul (0-0.8); ABS Neutrophils 6.8 10^3/ul (1.5-7.7); Eosinophil % 1.1 %; Hematocrit 39 % (42-52); Lymphocyte % 18.3 %; Mean Corpuscular HGB Conc 34 g/dL (31-36); Mean Corpuscular Hemoglobin 29 pg (27-31); Mean Corpuscular Volume 86 fL (80-94); Mean Platelet Volume 8.3 fL (7.4-10.4); Nucleated Red Blood Cells % 0.1; Platelet Count 151 10^3/uL (150-450); Red Blood Count 4.48 10^6 /uL (4.18-5.48); Red Cell Distribution Width 17 % (10-15); White Blood Count 9.5 10^3/uL (3.5-10.8)
[2019-01-07 01:06] LABS: ALT 51 U/L (7-52); AST 91 U/L (13-39); Albumin 3.9 g/dL (3.2-5.2); Albumin/Globulin Ratio 1.4 (1-3); Alkaline Phosphatase 68 U/L (34-104); Anion Gap 10 mmol/L (2-11); BUN/Creatinine Ratio 9.4 (8-20); Blood Urea Nitrogen 8 mg/dL (6-24); CO2 Carbon Dioxide 22 mmol/L (22-32); Chloride 103 mmol/L (101-111); EGFR African American 129.9 (>60); EGFR Non-African American 107.3 (>60); Globulin 2.7 g/dL (2-4); Glucose 107 mg/dL (70-100); Potassium 2.9 mmol/L (3.5-5.0); Sodium 135 mmol/L (135-145); Total Protein 6.6 g/dL (6.4-8.9)
[2019-01-07 01:29] LABS: Acetaminophen < 15 mcg/mL; Alcohol < 10 mg/dL (<10); Salicylate < 2.50 mg/dL (<30)
[2019-01-07 01:44] LABS: TSH (Thyroid Stimulating Horm) 6.44 mcIU/mL (0.34-5.60)
[2019-01-07] MEDS ORDERED: Potassium Chlor TAB* 20 MEQ TAB.ER PO ONE (03:13)
[2019-01-07 07:08] VITALS: BP 131/84
== END 2019-01-07 07:06 | disposition home or self-care (01) ==
LOC: ED 22:58
DX: F19.10 Other psychoactive substance abuse, uncomplicated (principal); E03.9 Hypothyroidism, unspecified; I10 Essential (primary) hypertension; F17.210 Nicotine dependence, cigarettes, uncomplicated
CPT/HCPCS: 36415; 80053; 80320; 80329; 83735; 84443; 85025; 93005; 99283; A9270-GY; G0480

== ENCOUNTER 2019-01-08 17:15 | Emergency (ER) | payer OTHER ==
[2019-01-08] MEDS ORDERED: Lactated Ringers 1000 ML Bag* 1,000 ML IV SCH (18:00)
[2019-01-08 18:41] LABS: ABS Eosinophils 0.1 10^3/ul (0-0.6); ABS Lymphocytes 1.6 10^3/ul (1.0-4.8); ABS Neutrophils 8.4 10^3/ul (1.5-7.7); Eosinophil % 1.1 %; Hematocrit 39 % (42-52); Hemoglobin 13.3 g/dL (14.0-18.0); Lymphocyte % 14.1 %; Mean Corpuscular HGB Conc 34 g/dL (31-36); Mean Corpuscular Hemoglobin 29 pg (27-31); Mean Corpuscular Volume 86 fL (80-94); Nucleated Red Blood Cells % 0.1; Platelet Count 190 10^3/uL (150-450); Red Blood Count 4.52 10^6 /uL (4.18-5.48); Red Cell Distribution Width 17 % (10-15); White Blood Count 11.1 10^3/uL (3.5-10.8)
[2019-01-08 19:08] LABS: Acetaminophen < 15 mcg/mL; Alcohol < 10 mg/dL (<10); Salicylate < 2.50 mg/dL (<30); Troponin I 0.01 ng/mL (<0.04)
[2019-01-08 19:09] LABS: ALT 46 U/L (7-52); AST 57 U/L (13-39); Albumin 4.1 g/dL (3.2-5.2); Albumin/Globulin Ratio 1.4 (1-3); Alkaline Phosphatase 60 U/L (34-104); Anion Gap 9 mmol/L (2-11); BUN/Creatinine Ratio 6.5 (8-20); Blood Urea Nitrogen 6 mg/dL (6-24); CO2 Carbon Dioxide 24 mmol/L (22-32); Calcium 9.3 mg/dL (8.6-10.3); Chloride 107 mmol/L (101-111); EGFR African American 117.1 (>60); EGFR Non-African American 96.7 (>60); Glucose 73 mg/dL (70-100); Potassium 3.1 mmol/L (3.5-5.0); Sodium 140 mmol/L (135-145); Total Protein 7.1 g/dL (6.4-8.9)
[2019-01-08] MEDS ORDERED: levETIRAcetam 1000MG IVPREMIX* 1,000 MG/100 ML BAG IVPB ONE (19:42)
--- NOTE | 2019-01-08 20:11 | ED ---
Head Injury - HPI Summary HPI Summary: Pt is a 28 y/o M presenting to the ED brought in by EMS for a head injury. LEVEL 5 CAVEAT: Pt's full hx is unobtainable d/t AMS. Per EMS, the pt fell and hit his head, and there was reported seizure-like activity. The pt also admitted to taking 48 Coricidine tablets, and states he does not remember what happened. He currently reports headache. Patient well known to ED for substance use. - History Of Current Complaint Chief Complaint: EDFall Stated Complaint: SYNCOPE/POSS SEIZURE PER EMS Time Seen by Provider: 01/08/19 17:54 Hx Obtained From: Patient, EMS Hx From Patient Unobtainable Due To: Altered Mental Status Mechanism Of Injury: Fall From A Standing Position Onset/Duration: Started Hours Ago, Still Present Onset of Pain: Hours Severity Currently: Mild Severity Initially: Mild Pain Intensity: 0 Pain Scale Used: 0-10 Numeric Location of Head Injury: Occipital Location: Diffuse Character: Unable to describe Associated Signs And Symptoms: Other: - pt does not remember, also used drugs today - Allergies/Home Medications Allergies/Adverse Reactions: Allergies Allergy/AdvReac Type Severity Reaction Status Date / Time No Known Allergies Allergy Verified 12/26/18 15:41 PMH/Surg Hx/FS Hx/Imm Hx Previously Healthy: No Endocrine/Hematology History: Reports: Hx Thyroid Disease - Hypothyroidism Denies: Hx Anticoagulant Therapy, Hx Blood Disorders, Hx Blood Transfusions, Hx Bone Marrow Disease, Hx Diabetes, Hx Systemic Lupus Erythematosus, Hx Sickle Cell Disease, Hx Anemia, Hx Unexplained Bleeding, Other Endocrine/Hematological Disorders Cardiovascular History: Reports: Hx Hypertension Denies: Hx Aneurysm, Hx Angina, Hx Angioplasty, Hx Auto Implanted Cardiovert Defib, Hx Cardiac Arrest, Hx Cardiomegaly, Hx Congenital Heart Disease, Hx Congestive Heart Failure, Hx Coronary Artery Disease, Hx Deep Vein Thrombosis, Hx Embolism, Hx Hypercholesterolemia, Hx Hypotension, Hx Pacemaker/ICD, Hx Peripheral Vascular Disease, Hx Rheumatic Fever, Hx Syncope, Hx Valvular Heart Disease, Other Cardiovascular Problems/Disorders Respiratory History: Reports: Hx Pneumonia, Hx Seasonal Allergies Denies: Hx Asthma, Hx Chronic Bronchitis, Hx Chronic Obstructive Pulmonary Disease (COPD), Hx Cystic Fibrosis, Hx Lung Cancer, Hx Pleural Effusion, Hx Pulmonary Edema, Hx Pulmonary Embolism, Hx Sleep Apnea, Other Respiratory Problems/Disorders GI History: Reports: Hx Ulcer Denies: Hx Cirrhosis, Hx Crohn's Disease, Hx Diverticulosis, Hx Gall Bladder Disease, Hx Gastroesophageal Reflux Disease, Hx Gastrointestinal Bleed, Hx Hiatal Hernia, Hx Irritable Bowel, Hx Jaundice, Hx Obstructive Bowel, Hx Ileostomy, Hx Pyloric Stenosis, Other GI Disorders History: Denies: Hx Acute Renal Failure, Hx Benign Prostatic Hyperplasia, Hx Chronic Renal Failure, Hx Dialysis, Hx Kidney Infection, Hx Kidney Stones, Hx Renal Disease, Other Problems/Disorders Musculoskeletal History: Denies: Hx Arthritis, Hx Back Problems, Hx Bursitis, Hx Congenital Bone Abnormalities, Hx Fibromyalgia, Hx Gout, Hx Orthopedic Injury, Hx Osteoporosis, Hx Scoliosis, Hx Tendonitis, Other Musculoskeletal History Sensory History: Denies: Hx Cataracts, Hx Contacts or Glasses, Hx Eye Injury, Hx Eye Prosthesis, Hx Glaucoma, Hx Legally Blind, Hx Macular Degeneration, Hx Vision Problem, Hx Deafness, Hx Hearing Aid, Other Sensory Impairments Opthamlomology History: Denies: Hx Cataracts, Hx Contacts or Glasses, Hx Eye Injury, Hx Eye Prosthesis, Hx Glaucoma, Hx Legally Blind, Hx Macular Degeneration, Hx Vision Problem, Other Sensory Impairments Neurological History: Reports: Hx Headaches, Hx Seizures Denies: Hx Dementia, Hx Developmental Delay, Hx Migraine, Hx Nerve Disease, Hx Spinal Cord Injury, Hx Transient Ischemic Attacks (TIA), Other Neuro Impairments/Disorders Psychiatric History: Reports: Hx Anxiety, Hx Depression, Hx Post Traumatic Stress Disorder, Hx Inpatient Treatment, Hx Community Mental Health Tx, Hx Bipolar Disorder, Hx of Violent Episodes Against Others, Hx Substance Abuse, Other Psychiatric Issues/Disorders Denies: Hx Attention Deficit Hyperactivity Disorder, Hx Eating Disorder, Hx Panic Disorder, Hx Schizophrenia, Hx Suicide Attempt - Cancer History Cancer Type, Location and Year: None reported - Surgical History Surgery Procedure, Year, and Place: none Hx Anesthesia Reactions: No - Immunization History Date of Tetanus Vaccine: Unknown Date of Influenza Vaccine: None Immunizations Up to Date: Yes Infectious Disease History: No Infectious Disease History: Reports: Hx Hepatitis - Hep C Denies: Hx Clostridium Difficile, Hx Human Immunodeficiency Virus (HIV), Hx of Known/Suspected MRSA, Hx Shingles, Hx Tuberculosis, Hx Known/Suspected VRE, Hx Known/Suspected VRSA, History Other Infectious Disease, Traveled Outside the [place] in Last 30 Days - Family History Known Family History: Positive: Other - cancer Negative: Renal Disease Family History: father - ETOH - Social History Alcohol Use: Daily Alcohol Amount: beers Hx Substance Use: Yes Substance Use Type: Reports: Cocaine, Prescribed, Other Substance Use Comment - Amount & Last Used: 09/04, 09/05/18,09/06, 09/07, 09/08, 2018 Coricidin overdose Hx Tobacco Use: Yes Smoking Status (MU): Heavy Every Day Tobacco Smoker Type: Cigarettes Have You Smoked in the Last Year: Yes Review of Systems Positive: Headache All Other Systems Reviewed And Are Negative: No Physical Exam - Summary Physical Exam Summary: Constitutional: Disheveled, Alert. (-) Distressed Skin: 2 one cm lacerations to posterior occiput, hemodymanically stable. HENT: Hematoma to his posterior occiput, along with two 1cm lacerations on the posterior occiput. Eyes: Conjunctiva normal Neck: Musculoskeletal ROM normal neck. (-) JVD, (-) Stridor Cardio: Rhythm regular, rate normal, Heart sounds normal; Intact distal pulses; Radial pulses are 2+ and symmetric. (-) Murmur Pulmonary/Chest wall: Effort normal. (-) Respiratory distress, (-) Wheezes, (-) Rales Abd: Soft, (-) tenderness, (-) Distension, (-) Guarding, (-) Rebound Musculoskeletal: (-) Edema Lymph: (-) Cervical adenopathy Neuro: Alert, Oriented x2, GCS 14. Psych: Mood and affect Normal Triage Information Reviewed: Yes Vital Signs On Initial Exam: Initial Vitals Temp Pulse Resp BP Pulse Ox 98.9 F 119 22 157/96 95 01/08/19 17:30 01/08/19 17:30 01/08/19 17:30 01/08/19 17:30 01/08/19 17:30 Vital Signs Reviewed: Yes - Dora Coma Scale Best Eye Response: 4 - Spontaneous Best Motor Response: 6 - Obeys Commands Best Verbal Response: 4 - Confused Coma Scale Total: 14 Diagnostics - Vital Signs Vital Signs Temp Pulse Resp BP Pulse Ox 01/08/19 17:30 98.9 F 119 22 157/96 95 - Laboratory Lab Results: Lab Results 01/08/19 01/08/19 01/08/19 Range/Units 18:36 18:36 18:36 WBC 11.1 H (3.5-10.8) 10^3/uL RBC 4.52 (4.18-5.48) 10^6 /uL Hgb 13.3 L (14.0-18.0) g/dL Hct 39 L (42-52) % MCV 86 (80-94) fL MCH 29 (27-31) pg MCHC 34 (31-36) g/dL RDW 17 H (10-15) % Plt Count 190 (150-450) 10^3/uL MPV 8.0 (7.4-10.4) fL Neut % (Auto) 75.4 % Lymph % (Auto) 14.1 % [place] % (Auto) 9.1 % Eos % (Auto) 1.1 % Baso % (Auto) 0.3 % Absolute Neuts (auto) 8.4 H (1.5-7.7) 10^3/ul Absolute Lymphs (auto) 1.6 (1.0-4.8) 10^3/ul Absolute Monos (auto) 1.0 H (0-0.8) 10^3/ul Absolute Eos (auto) 0.1 (0-0.6) 10^3/ul Absolute Basos (auto) 0.0 (0-0.2) 10^3/ul Absolute Nucleated RBC 0.0 10^3/ul Nucleated RBC % 0.1 Sodium 140 (135-145) mmol/L Potassium 3.1 L (3.5-5.0) mmol/L Chloride 107 (101-111) mmol/L Carbon Dioxide 24 (22-32) mmol/L Anion Gap 9 (2-11) mmol/L BUN 6 (6-24) mg/dL Creatinine 0.93 (0.67-1.17) mg/dL Est GFR ( Amer) 117.1 (>60) Est GFR (Non-Af Amer) 96.7 (>60) BUN/Creatinine Ratio 6.5 L (8-20) Glucose 73 (70-100) mg/dL Lactic Acid 1.1 (0.5-2.0) mmol/L Calcium 9.3 (8.6-10.3) mg/dL Total Bilirubin 0.60 (0.2-1.0) mg/dL AST 57 H (13-39) U/L ALT 46 (7-52) U/L Alkaline Phosphatase 60 (34-104) U/L Troponin I 0.01 (<0.04) ng/mL Total Protein 7.1 (6.4-8.9) g/dL Albumin 4.1 (3.2-5.2) g/dL Globulin 3.0 (2-4) g/dL Albumin/Globulin Ratio 1.4 (1-3) Salicylates < 2.50 (<30) mg/dL Acetaminophen < 15 mcg/mL Serum Alcohol < 10 (<10) mg/dL Result Diagrams: 01/08/19 18:36 01/08/19 18:36 Lab Statement: Any lab studies that have been ordered have been reviewed, and results considered in the medical decision making process. - CT Brain CT CT Interpretation Completed By: Radiologist Summary of CT Findings: Subtle acute traumatic subarachnoid hemorrhage anterior inferior falx and anterior suprasellar cistern. ED physician has reviewed this report. C-spine Ct CT Interpretation Completed By: Radiologist Summary of CT Findings: No cervical spine traumatic abnormalities. ED physician has reviewed this report. - EKG 1809 Cardiac Rate: Tachycardia - 113bpm EKG Rhythm: Sinus Tachycardia ST Segment: Normal Ectopy: None Summary of EKG Findings: An EKG at 1809 shows sinus tachycardia at 113bpm with nml axis, nml intervals. No STEMI. No acute changes. Re-Evaluation - Re-Evaluation 1st re-eval Re-Evaluation Time: 20:20 Comment: Dr. Duff recommends CTA and consult from endovascular neurosurgeon. 2nd re-eval Re-Evaluation Time: 20:55 Comment: Spoke with the physicians at [facility], he will be accepted to the ED under Dr. Jaramillo. The neurosurgeon is Dr. Mullins. Head Injury Course/Dx Course Of Treatment: 20-year-old male with a history of substance use disorder well known to the department who presents with altered mental status and head injury. - Check CT brain C-spine, alcohol, urine drug screen, acetaminophen, salicylate. - Given 1 L of fluids for tachycardia to 130s. Patient's GCS is 14 , 1 off for confusion - Diagnoses Provider Diagnoses: Subarachnoid hemorrhage - Critical Care Time Critical Care Time: 30-74 min - 30 min Discharge - Sign-Out/Discharge Documenting (check all that apply): Patient Departure - [place] - Discharge Plan Condition: Stable Disposition: TRANS HIGHER LVL OF CARE FAC Referrals: No Primary Care Phys,NOPCP [Primary Care Provider] - - Billing Disposition and Condition Condition: STABLE Disposition: Trans Higher Lvl of Care Fac - Attestation Statements Document Initiated by Mario: Yes Documenting Scribe: Polly Boateng Provider For Whom Mario is Documenting (Include Credential): Javon Marques MD. Scribe Attestation: IPolly, scribed for Javon Marques MD. on 01/08/19 at 2059. Scribe Documentation Reviewed: Yes Provider Attestation: The documentation as recorded by the scribe, Polly Boateng accurately reflects the service I personally performed and the decisions made by me, Javon Marques MD. Status of Scribe Document: Viewed Consult Consult: 194 - I spoke with Dr. Duff about the pt's present condition who recommends monitoring the pt for 6 hours, repeating a head CT, giving the pt Keppra, and potential admission to the ICU. 2016 - I spoke with Dr. Duff who recommends getting a head CTA and transfer.
[2019-01-08 21:48] VITALS: BP 154/96
--- NOTE | 2019-01-08 21:53 | CONS ---
CONSULTATION REPORT: DATE OF CONSULT: 01/08/19 HISTORY OF PRESENT ILLNESS: Mr. Angeles is a 28-year-old male found down, brought in by EMS today with history of substance abuse and medical history of hypothyroidism. According to the report, the patient possibly had a seizure- like activity after being found down. He was brought in by ambulance. Currently, the patient is unable to recall specific events that led to him falling. Presently, he denies headache and neck pain. Also denies changes in upper extremity or lower extremity strength. Also denies any issues with loss of control of bladder and bowel. The patient completed a CT of the brain which showed fluid collection around the falx. Neurosurgery was called in to evaluate the patient. PAST MEDICAL HISTORY: 1. Hypothyroidism. 2. Depression. PAST SURGICAL HISTORY: Denies. MEDICATIONS: 1. Risperdal 1 mg p.o. daily. 2. Bupropion 300 mg p.o. daily. ALLERGIES: No known allergies. SOCIAL HISTORY: History of tobacco use, history of alcohol use, and history of substance abuse. OBJECTIVE: Vitals: Temperature is 98.9, pulse 99 to 110, respiratory rate 22 to 27, O2 saturation 93% to 95% on room air, blood pressure systolic 157 to 161 , diastolic 96 to 100. PHYSICAL EXAM: The patient is lying flat on bed, comfortable, no acute distress noted. Head is normocephalic. There are some scalp abrasions with bleeding noted. Neck is symmetric. Neuro: The patient's GCS is 15. Alert and oriented x4. Cranial nerves II through XII intact. EOMs are intact. Sensation is intact throughout. Upper extremity motor strength 5/5 bilaterally throughout. Lower extremity motor strength 5/5 bilaterally throughout. Negative Billy's, negative clonus. Derm: The patient has abrasions on feet and on extremities. ASSESSMENT: A 28-year-old male with history of substance abuse and alcohol abuse, found down, unable to remember preceding event, neurologically intact with no focal deficits. Has fluid collection noted along the falx at the anterior inferior midline which extended anterior to the suprasellar cistern. Currently, the patient denies headache, nausea, or vomiting. Also denied neck pain. PLAN: Seizure prophylaxis, Keppra [address] scan of head in 6 hours. Get x-rays of the thoracic and lumbar spine. We will follow up results of the imaging. Discussed the case with Dr. Feliciano. MARY LOU WILLETT, GUILLERMINA [id number]/CPS #: [id number] SOLO
[2019-01-08 22:15] LABS: Urine Appearance Clear; Urine Bilirubin Negative (Negative); Urine Blood Negative (Negative); Urine Color Straw; Urine Glucose Negative (Negative); Urine Ketones 1+ (Negative); Urine Nitrite Negative (Negative); Urine Protein Negative (Negative); Urine Specific Gravity 1.005 (1.010-1.030); Urine Urobilinogen Negative (Negative)
== END 2019-01-08 21:46 | disposition short-term general hospital (02) ==
LOC: ED 17:15
DX: S06.6X9A Traumatic subarachnoid hemorrhage with loss of consciousness of unspecified duration, initial encounter (principal); W19.XXXA Unspecified fall, initial encounter; Y92.9 Unspecified place or not applicable; E03.9 Hypothyroidism, unspecified; I10 Essential (primary) hypertension; F17.210 Nicotine dependence, cigarettes, uncomplicated; F19.10 Other psychoactive substance abuse, uncomplicated; Z79.899 Other long term (current) drug therapy
CPT/HCPCS: 36415; 70450; 72125; 80053; 80320; 80329; 81003; 83605; 84484; 85025; 93005; 96361; 96365; 99283; G0480; J1953

== ENCOUNTER 2019-01-13 12:06 | Emergency (ER) | payer OTHER ==
--- NOTE | 2019-01-13 12:10 | ED ---
Psychiatric Complaint - HPI Summary HPI Summary: This patient is a 28 year old male brought in by EMS presenting to [facility] with a psychiatric complaint/substance abuse. The patient consumed an unknown amount of alcohol and unknown amount of coricidin. Patient is flailing his arms and legs in the stretcher. Patient had a hemorrhage in his brain 3 weeks ago and his behavior has become more erratic since. He does not say anything besides yes or no. - History Of Current Complaint Hx Obtained From: EMS Hx From Patient Unobtainable Due To: Altered Mental Status Onset/Duration: Lasting Minutes Aggravating Factor(s): Alcohol Use, Drug Use - Allergies/Home Medications Allergies/Adverse Reactions: Allergies Allergy/AdvReac Type Severity Reaction Status Date / Time No Known Allergies Allergy Verified 12/26/18 15:41 PMH/Surg Hx/FS Hx/Imm Hx Endocrine/Hematology History: Reports: Hx Thyroid Disease - Hypothyroidism Denies: Hx Anticoagulant Therapy, Hx Blood Disorders, Hx Blood Transfusions, Hx Bone Marrow Disease, Hx Diabetes, Hx Systemic Lupus Erythematosus, Hx Sickle Cell Disease, Hx Anemia, Hx Unexplained Bleeding, Other Endocrine/Hematological Disorders Cardiovascular History: Reports: Hx Hypertension Denies: Hx Aneurysm, Hx Angina, Hx Angioplasty, Hx Auto Implanted Cardiovert Defib, Hx Cardiac Arrest, Hx Cardiomegaly, Hx Congenital Heart Disease, Hx Congestive Heart Failure, Hx Coronary Artery Disease, Hx Deep Vein Thrombosis, Hx Embolism, Hx Hypercholesterolemia, Hx Hypotension, Hx Pacemaker/ICD, Hx Peripheral Vascular Disease, Hx Rheumatic Fever, Hx Syncope, Hx Valvular Heart Disease, Other Cardiovascular Problems/Disorders Respiratory History: Reports: Hx Pneumonia, Hx Seasonal Allergies Denies: Hx Asthma, Hx Chronic Bronchitis, Hx Chronic Obstructive Pulmonary Disease (COPD), Hx Cystic Fibrosis, Hx Lung Cancer, Hx Pleural Effusion, Hx Pulmonary Edema, Hx Pulmonary Embolism, Hx Sleep Apnea, Other Respiratory Problems/Disorders GI History: Reports: Hx Ulcer Denies: Hx Cirrhosis, Hx Crohn's Disease, Hx Diverticulosis, Hx Gall Bladder Disease, Hx Gastroesophageal Reflux Disease, Hx Gastrointestinal Bleed, Hx Hiatal Hernia, Hx Irritable Bowel, Hx Jaundice, Hx Obstructive Bowel, Hx Ileostomy, Hx Pyloric Stenosis, Other GI Disorders History: Denies: Hx Acute Renal Failure, Hx Benign Prostatic Hyperplasia, Hx Chronic Renal Failure, Hx Dialysis, Hx Kidney Infection, Hx Kidney Stones, Hx Renal Disease, Other Problems/Disorders Musculoskeletal History: Denies: Hx Arthritis, Hx Back Problems, Hx Bursitis, Hx Congenital Bone Abnormalities, Hx Fibromyalgia, Hx Gout, Hx Orthopedic Injury, Hx Osteoporosis, Hx Scoliosis, Hx Tendonitis, Other Musculoskeletal History Sensory History: Denies: Hx Cataracts, Hx Contacts or Glasses, Hx Eye Injury, Hx Eye Prosthesis, Hx Glaucoma, Hx Legally Blind, Hx Macular Degeneration, Hx Vision Problem, Hx Deafness, Hx Hearing Aid, Other Sensory Impairments Opthamlomology History: Denies: Hx Cataracts, Hx Contacts or Glasses, Hx Eye Injury, Hx Eye Prosthesis, Hx Glaucoma, Hx Legally Blind, Hx Macular Degeneration, Hx Vision Problem, Other Sensory Impairments Neurological History: Reports: Hx Headaches, Hx Seizures Denies: Hx Dementia, Hx Developmental Delay, Hx Migraine, Hx Nerve Disease, Hx Spinal Cord Injury, Hx Transient Ischemic Attacks (TIA), Other Neuro Impairments/Disorders Psychiatric History: Reports: Hx Anxiety, Hx Depression, Hx Post Traumatic Stress Disorder, Hx Inpatient Treatment, Hx Community Mental Health Tx, Hx Bipolar Disorder, Hx of Violent Episodes Against Others, Hx Substance Abuse, Other Psychiatric Issues/Disorders Denies: Hx Attention Deficit Hyperactivity Disorder, Hx Eating Disorder, Hx Panic Disorder, Hx Schizophrenia, Hx Suicide Attempt - Cancer History Cancer Type, Location and Year: None reported - Surgical History Surgery Procedure, Year, and Place: none Hx Anesthesia Reactions: No - Immunization History Date of Tetanus Vaccine: Unknown Date of Influenza Vaccine: None Infectious Disease History: Reports: Hx Hepatitis - Hep C Denies: Hx Clostridium Difficile, Hx Human Immunodeficiency Virus (HIV), Hx of Known/Suspected MRSA, Hx Shingles, Hx Tuberculosis, Hx Known/Suspected VRE, Hx Known/Suspected VRSA, History Other Infectious Disease - Family History Known Family History: Positive: Other - cancer Negative: Renal Disease Family History: father - ETOH - Social History Alcohol Use: Daily Alcohol Amount: beers Hx Substance Use: Yes Substance Use Type: Reports: Cocaine, Prescribed, Other Substance Use Comment - Amount & Last Used: 09/04, 09/05/18,09/06, 09/07, 09/08, 2018 Coricidin overdose Hx Tobacco Use: Yes Smoking Status (MU): Heavy Every Day Tobacco Smoker Type: Cigarettes Have You Smoked in the Last Year: Yes Review of Systems Negative: Fever Psychological: Other - Altered mental status All Other Systems Reviewed And Are Negative: Yes Physical Exam - Summary Physical Exam Summary: Appearance: Well appearing, no pain distress. Alert and confused, agitated. Skin: warm, dry, reflects adequate perfusion Head/face: normal Eyes: EOMI, CH[place]RIKA ENT: normal Neck: supple, non-tender Respiratory: CTA, breath sounds present Cardiovascular: RRR, pulses symmetrical Abdomen: non-tender, soft Musculoskeletal: normal, strength/ROM intact Neuro: normal, sensory motor intact, A&Ox3 Triage Information Reviewed: Yes Vital Signs On Initial Exam: Temp Pulse Resp BP Pulse Ox 99.3 F 90 22 160/108 96 01/13/19 12:12 01/13/19 18:00 01/13/19 18:00 01/13/19 16:35 01/13/19 18:00 Vital Signs Reviewed: Yes Diagnostics - Laboratory Result Diagrams: 01/13/19 13:02 01/13/19 13:02 Lab Statement: Any lab studies that have been ordered have been reviewed, and results considered in the medical decision making process. - CT Brain CT Interpretation Completed By: Radiologist Summary of CT Findings: Normal CT of the brain. ED Provider has reviewed this report. - EKG 1309 Cardiac Rate: Tachycardia - 102 BPM EKG Rhythm: Sinus Tachycardia Course/Dx - Course Course Of Treatment: This patient is a 28 year old male brought in by EMS presenting to [facility] with a psychiatric complaint/substance abuse. This patient will be signed out to Dr. Villarreal at shift change 1900 pending sobriety/MHE. - Differential Dx/Clinical Impression Differential Diagnosis/HQI/PQRI: Positive: Alcohol Intoxication, Drug Overdose/ Intentional Provider Diagnosis: Overdose - Critical Care Time Critical Care Time: 30-74 min Discharge - Sign-Out/Discharge Documenting (check all that apply): Sign-Out Patient Signing out patient TO: Twan Villarreal - At shift change 1900 pending sobriety/ MHE. - Discharge Plan Referrals: No Primary Care Phys,NOPCP [Primary Care Provider] - - Attestation Statements Document Initiated by Scribe: Yes Documenting Scribe: Dario Hodgson Provider For Whom Scribe is Documenting (Include Credential): Estiven Crain MD Scribe Attestation: Dario Brunner, scribed for Estiven Crain MD on 01/13/19 at 1941. Scribe Documentation Reviewed: Yes Provider Attestation: The documentation as recorded by the scribe, Dario oHdgson accurately reflects the service I personally performed and the decisions made by me, Estiven Crain MD Status of Scribe Document: Viewed
[2019-01-13] MEDS ORDERED: NS 0.9% 1000 ML** 2,000 ML IV ONE (12:13)
[2019-01-13] MEDS ORDERED: diPHENhydraMINE IV* 50 MG/ML 1 ml VIAL (BENADRYL) IM ONE (12:28)
[2019-01-13] MEDS ORDERED: Lorazepam PYXIS KEY PRN ×2 (12:28)
[2019-01-13] MEDS ORDERED: LORazepam INJ* 2 MG/ML 1 ML VIAL IV PUSH ONE (12:28)
[2019-01-13] MEDS ORDERED: Haloperidol INJ IV/IM* 5 MG/ML AMP IM ONE (12:29)
[2019-01-13] MEDS ORDERED: Lorazepam PYXIS KEY ONE (12:32)
[2019-01-13 13:22] LABS: ABS Eosinophils 0.1 10^3/ul (0-0.6); ABS Lymphocytes 1.6 10^3/ul (1.0-4.8); ABS Neutrophils 5.6 10^3/ul (1.5-7.7); Eosinophil % 0.8 %; Hematocrit 41 % (42-52); Hemoglobin 13.4 g/dL (14.0-18.0); Lymphocyte % 19.4 %; Mean Corpuscular HGB Conc 33 g/dL (31-36); Mean Corpuscular Hemoglobin 29 pg (27-31); Mean Corpuscular Volume 88 fL (80-94); Mean Platelet Volume 7.9 fL (7.4-10.4); Nucleated Red Blood Cells % 0.1; Platelet Count 250 10^3/uL (150-450); Red Blood Count 4.64 10^6 /uL (4.18-5.48); Red Cell Distribution Width 18 % (10-15); White Blood Count 8.3 10^3/uL (3.5-10.8)
[2019-01-13 13:41] LABS: ALT 32 U/L (7-52); AST 30 U/L (13-39); Acetaminophen < 15 mcg/mL; Albumin 4.2 g/dL (3.2-5.2); Albumin/Globulin Ratio 1.4 (1-3); Alcohol < 10 mg/dL (<10); Alkaline Phosphatase 56 U/L (34-104); Anion Gap 9 mmol/L (2-11); BUN/Creatinine Ratio 8.8 (8-20); Blood Urea Nitrogen 9 mg/dL (6-24); CO2 Carbon Dioxide 26 mmol/L (22-32); Calcium 9.1 mg/dL (8.6-10.3); Chloride 110 mmol/L (101-111); Creatine Kinase 592 U/L (10-223); EGFR African American 105.2 (>60); Globulin 2.9 g/dL (2-4); Glucose 64 mg/dL (70-100); Potassium 3.1 mmol/L (3.5-5.0); Salicylate < 2.50 mg/dL (<30); Sodium 145 mmol/L (135-145); Total Protein 7.1 g/dL (6.4-8.9)
[2019-01-13 14:39] LABS: Urine Appearance Clear; Urine Bilirubin Negative (Negative); Urine Blood Negative (Negative); Urine Color Straw; Urine Glucose Negative (Negative); Urine Ketones Negative (Negative); Urine Nitrite Negative (Negative); Urine Protein Negative (Negative); Urine Specific Gravity 1.009 (1.010-1.030); Urine Urobilinogen Negative (Negative)
[2019-01-13 14:51] LABS: Urine Benzodiazepine Screen None Detected (None Detect); Urine Opiates Screen Presumptive Positive (None Detect)
[2019-01-13] MEDS ORDERED: Potassium Chlor TAB* 20 MEQ TAB.ER PO ONE (14:59)
--- NOTE | 2019-01-13 19:44 | ED ---
Progress - Progress Note Progress Note: This Pt is a S/O from Dr. Crain to Dr. Villarreal at shift change 1900 01/13/19 pending a sobriety test. Course/Dx - Course Course Of Treatment: This Pt is a S/O from Dr. Crain to Dr. Villarreal at shift change 1900 01/13/19 pending a sobriety test. The pt was able to walk by himself around the emergency department and requested to be sent home without a MHE. The pt will be discharged home with a Dx of substance abuse. - Diagnoses Provider Diagnoses: Substance abuse - Critical Care Time Critical Care Time: 30-74 min Discharge - Sign-Out/Discharge Documenting (check all that apply): Patient Departure - discharge, Receiving Sign-Out Receiving patient FROM: Estiven Crain Patient Received Moderate/Deep Sedation with Procedure: No - Discharge Plan Condition: Stable Disposition: HOME Patient Education Materials: Polysubstance Abuse (ED) Referrals: [facility] [Outside] - 2 Days Additional Instructions: Please follow up with the [facility] in 2-3 days. Return to the emergency department for any new or worsening symptoms. - Attestation Statements Document Initiated by Scribe: Yes Documenting Scribe: Shaquille Trujillo Provider For Whom Scribe is Documenting (Include Credential): Twan Villarreal MD Scribe Attestation: Shaquille Brunner, scribed for Twan Villarreal MD on 01/13/19 at 2010. Status of Scribe Document: Ready
[2019-01-13 20:24] VITALS: BP 155/108
== END 2019-01-13 20:26 | disposition home or self-care (01) ==
LOC: ED 12:06
DX: T50.901A Poisoning by unspecified drugs, medicaments and biological substances, accidental (unintentional), initial encounter (principal); F19.10 Other psychoactive substance abuse, uncomplicated; Y92.9 Unspecified place or not applicable; E03.9 Hypothyroidism, unspecified; I10 Essential (primary) hypertension; F17.210 Nicotine dependence, cigarettes, uncomplicated
CPT/HCPCS: 36415; 70450; 80053; 80307; 80320; 80329; 81003; 82550; 83605; 84484; 85025; 93005; 96361; 96372; 96374; 99285; A9270-GY; G0480; J1200; J1630; J2060

== ENCOUNTER 2019-01-14 14:45 | Emergency (ER) | payer OTHER ==
[2019-01-14 15:20] LABS: ABS Lymphocytes 2.8 10^3/ul (1.0-4.8); ABS Monocytes 0.8 10^3/ul (0-0.8); ABS Neutrophils 4.6 10^3/ul (1.5-7.7); Eosinophil % 0.6 %; Hematocrit 39 % (42-52); Lymphocyte % 34.1 %; Mean Corpuscular HGB Conc 33 g/dL (31-36); Mean Corpuscular Hemoglobin 29 pg (27-31); Mean Corpuscular Volume 87 fL (80-94); Mean Platelet Volume 7.8 fL (7.4-10.4); Nucleated Red Blood Cells % 0.1; Platelet Count 241 10^3/uL (150-450); Red Cell Distribution Width 17 % (10-15); White Blood Count 8.3 10^3/uL (3.5-10.8)
[2019-01-14 15:35] LABS: ALT 35 U/L (7-52); AST 51 U/L (13-39); Albumin/Globulin Ratio 1.5 (1-3); Alkaline Phosphatase 52 U/L (34-104); BUN/Creatinine Ratio 8.4 (8-20); Blood Urea Nitrogen 8 mg/dL (6-24); CO2 Carbon Dioxide 22 mmol/L (22-32); Calcium 8.8 mg/dL (8.6-10.3); Chloride 103 mmol/L (101-111); EGFR African American 114.2 (>60); EGFR Non-African American 94.4 (>60); Globulin 2.7 g/dL (2-4); Glucose 100 mg/dL (70-100); Sodium 137 mmol/L (135-145); Total Protein 6.7 g/dL (6.4-8.9)
[2019-01-14 15:37] LABS: Anion Gap 12 mmol/L (2-11); Potassium 2.6 mmol/L (3.5-5.0)
[2019-01-14] MEDS ORDERED: Potassium Chlor TAB* 20 MEQ TAB.ER PO ONE (15:38)
[2019-01-14 15:44] LABS: Acetaminophen < 15 mcg/mL; Alcohol 102 mg/dL (<10); Salicylate < 2.50 mg/dL (<30)
[2019-01-14 15:49] LABS: Urine Appearance Clear; Urine Bilirubin Negative (Negative); Urine Blood Negative (Negative); Urine Color Yellow; Urine Glucose Negative (Negative); Urine Ketones Trace (Negative); Urine Nitrite Negative (Negative); Urine Protein Negative (Negative); Urine Urobilinogen Negative (Negative)
[2019-01-14 16:21] LABS: Urine Benzodiazepine Screen None Detected (None Detect); Urine Opiates Screen None Detected (None Detect)
--- NOTE | 2019-01-14 17:39 | ED ---
Substance Abuse/Use - HPI Summary HPI Summary: Patient is a 28 y/o M presenting to ED via EMS under 2209. It is reported that he was at a counseling appointment at 1030 today and his mental status gradually declined, with him becoming more alerted. Patient had been at appointment for four hours. In room, he states that he took some substances while at the appointment. When asked what he took, he reports that he drank alcohol, took coricidin and something else he cannot recall. Patient does not provide further information. Patient denies SI and HI. Patient does not report fever, chills, erythema of eyes, sore throat, chest pain, SOB, cough, abdominal pain, N/V, dysuria, hematuria, myalgia, edema, rash, or dizziness. On triage, pain is rated 0/10, nothing is noted to aggravate/alleviate Sx. Home medications and allergies are reviewed. - History Of Current Complaint Chief Complaint: EDSubstanceAbuse Stated Complaint: ETOH PER EMS Hx Obtained From: Patient Onset/Duration of Drug/ETOH Abuse: Hours Ingestion History: Type/Name Of Drug - alcohol, corcidin Overdose Characteristics: Oral Character: Other - AMS Aggravating Factor(s): Nothing Alleviating Factor(s): Nothing Associated Signs And Symptoms: Other: - Patient denies SI and HI. Patient does not report fever, chills, erythema of eyes, sore throat, chest pain, SOB, cough , abdominal pain, N/V, dysuria, hematuria, myalgia, edema, rash, or dizziness - Allergies/Home Medications Allergies/Adverse Reactions: Allergies Allergy/AdvReac Type Severity Reaction Status Date / Time No Known Allergies Allergy Verified 01/14/19 14:49 PMH/Surg Hx/FS Hx/Imm Hx Endocrine/Hematology History: Reports: Hx Thyroid Disease - Hypothyroidism Denies: Hx Anticoagulant Therapy, Hx Blood Disorders, Hx Blood Transfusions, Hx Bone Marrow Disease, Hx Diabetes, Hx Systemic Lupus Erythematosus, Hx Sickle Cell Disease, Hx Anemia, Hx Unexplained Bleeding, Other Endocrine/Hematological Disorders Cardiovascular History: Reports: Hx Hypertension Denies: Hx Aneurysm, Hx Angina, Hx Angioplasty, Hx Auto Implanted Cardiovert Defib, Hx Cardiac Arrest, Hx Cardiomegaly, Hx Congenital Heart Disease, Hx Congestive Heart Failure, Hx Coronary Artery Disease, Hx Deep Vein Thrombosis, Hx Embolism, Hx Hypercholesterolemia, Hx Hypotension, Hx Pacemaker/ICD, Hx Peripheral Vascular Disease, Hx Rheumatic Fever, Hx Syncope, Hx Valvular Heart Disease, Other Cardiovascular Problems/Disorders Respiratory History: Reports: Hx Pneumonia, Hx Seasonal Allergies Denies: Hx Asthma, Hx Chronic Bronchitis, Hx Chronic Obstructive Pulmonary Disease (COPD), Hx Cystic Fibrosis, Hx Lung Cancer, Hx Pleural Effusion, Hx Pulmonary Edema, Hx Pulmonary Embolism, Hx Sleep Apnea, Other Respiratory Problems/Disorders GI History: Reports: Hx Ulcer Denies: Hx Cirrhosis, Hx Crohn's Disease, Hx Diverticulosis, Hx Gall Bladder Disease, Hx Gastroesophageal Reflux Disease, Hx Gastrointestinal Bleed, Hx Hiatal Hernia, Hx Irritable Bowel, Hx Jaundice, Hx Obstructive Bowel, Hx Ileostomy, Hx Pyloric Stenosis, Other GI Disorders History: Denies: Hx Acute Renal Failure, Hx Benign Prostatic Hyperplasia, Hx Chronic Renal Failure, Hx Dialysis, Hx Kidney Infection, Hx Kidney Stones, Hx Renal Disease, Other Problems/Disorders Musculoskeletal History: Denies: Hx Arthritis, Hx Back Problems, Hx Bursitis, Hx Congenital Bone Abnormalities, Hx Fibromyalgia, Hx Gout, Hx Orthopedic Injury, Hx Osteoporosis, Hx Scoliosis, Hx Tendonitis, Other Musculoskeletal History Sensory History: Denies: Hx Cataracts, Hx Contacts or Glasses, Hx Eye Injury, Hx Eye Prosthesis, Hx Glaucoma, Hx Legally Blind, Hx Macular Degeneration, Hx Vision Problem, Hx Deafness, Hx Hearing Aid, Other Sensory Impairments Opthamlomology History: Denies: Hx Cataracts, Hx Contacts or Glasses, Hx Eye Injury, Hx Eye Prosthesis, Hx Glaucoma, Hx Legally Blind, Hx Macular Degeneration, Hx Vision Problem, Other Sensory Impairments Neurological History: Reports: Hx Headaches, Hx Seizures Denies: Hx Dementia, Hx Developmental Delay, Hx Migraine, Hx Nerve Disease, Hx Spinal Cord Injury, Hx Transient Ischemic Attacks (TIA), Other Neuro Impairments/Disorders Psychiatric History: Reports: Hx Anxiety, Hx Depression, Hx Post Traumatic Stress Disorder, Hx Inpatient Treatment, Hx Community Mental Health Tx, Hx Bipolar Disorder, Hx of Violent Episodes Against Others, Hx Substance Abuse, Other Psychiatric Issues/Disorders Denies: Hx Attention Deficit Hyperactivity Disorder, Hx Eating Disorder, Hx Panic Disorder, Hx Schizophrenia, Hx Suicide Attempt - Cancer History Cancer Type, Location and Year: None reported - Surgical History Surgery Procedure, Year, and Place: none Hx Anesthesia Reactions: No - Immunization History Date of Tetanus Vaccine: Unknown Date of Influenza Vaccine: None Infectious Disease History: No Infectious Disease History: Reports: Hx Hepatitis - Hep C Denies: Hx Clostridium Difficile, Hx Human Immunodeficiency Virus (HIV), Hx of Known/Suspected MRSA, Hx Shingles, Hx Tuberculosis, Hx Known/Suspected VRE, Hx Known/Suspected VRSA, History Other Infectious Disease, Traveled Outside the [place] in Last 30 Days - Family History Known Family History: Positive: Other - cancer Negative: Renal Disease Family History: father - ETOH - Social History Alcohol Use: Daily Alcohol Amount: beers Hx Substance Use: Yes Substance Use Type: Reports: Cocaine, Prescribed, Other Substance Use Comment - Amount & Last Used: 09/04, 09/05/18,09/06, 09/07, 09/08, 2018 Coricidin overdose Hx Tobacco Use: Yes Smoking Status (MU): Heavy Every Day Tobacco Smoker Type: Cigarettes Have You Smoked in the Last Year: Yes Review of Systems Constitutional: Other - positive - substance usage Negative: Fever, Chills Negative: Erythema Negative: Sore Throat Negative: Chest Pain Negative: Shortness Of Breath, Cough Negative: Abdominal Pain, Vomiting, Nausea Negative: dysuria, hematuria Negative: Myalgia, Edema Negative: Rash Neurological: Other - negative - dizziness; positive - AMS Psychological: Other - negative - SI/HI All Other Systems Reviewed And Are Negative: Yes Physical Exam - Summary Physical Exam Summary: Constitutional: Well-developed, Well-nourished, Alert. Sleepy appearance. (-) Distressed Skin: Warm, Dry HENT: Normocephalic; Atraumatic Eyes: Conjunctiva normal Neck: Musculoskeletal ROM normal neck. (-) JVD, (-) Stridor, (-) Tracheal deviation Cardio: Rhythm regular, rate normal, Heart sounds normal; Intact distal pulses; The pedal pulses are 2+ and symmetric. Radial pulses are 2+ and symmetric. (-) Murmur Pulmonary/Chest wall: Effort normal. (-) Respiratory distress, (-) Wheezes, (-) Rales Abd: Soft, (-) tenderness, (-) Distension, (-) Guarding, (-) Rebound Musculoskeletal: (-) Edema Lymph: (-) Cervical adenopathy Neuro: Alert, Oriented x3, speech is mildly slurred, but has normal, steady gait. Psych: Mood and affect Normal Triage Information Reviewed: Yes Vital Signs On Initial Exam: Initial Vitals Temp Pulse Resp BP Pulse Ox 98.3 F 99 12 132/70 98 01/14/19 14:46 01/14/19 14:46 01/14/19 14:46 01/14/19 14:46 01/14/19 14:46 Vital Signs Reviewed: Yes Diagnostics - Vital Signs Vital Signs Temp Pulse Resp BP Pulse Ox 01/14/19 14:46 98.3 F 99 12 132/70 98 - Laboratory Lab Results: Lab Results 01/14/19 01/14/19 01/14/19 Range/Units 15:11 15:11 15:30 WBC 8.3 (3.5-10.8) 10^3/uL RBC 4.50 (4.18-5.48) 10^6 /uL Hgb 13.0 L (14.0-18.0) g/dL Hct 39 L (42-52) % MCV 87 (80-94) fL MCH 29 (27-31) pg MCHC 33 (31-36) g/dL RDW 17 H (10-15) % Plt Count 241 (150-450) 10^3/uL MPV 7.8 (7.4-10.4) fL Neut % (Auto) 55.6 % Lymph % (Auto) 34.1 % Pershing % (Auto) 9.2 % Eos % (Auto) 0.6 % Baso % (Auto) 0.5 % Absolute Neuts (auto) 4.6 (1.5-7.7) 10^3/ul Absolute Lymphs (auto) 2.8 (1.0-4.8) 10^3/ul Absolute Monos (auto) 0.8 (0-0.8) 10^3/ul Absolute Eos (auto) 0.0 (0-0.6) 10^3/ul Absolute Basos (auto) 0.0 (0-0.2) 10^3/ul Absolute Nucleated RBC 0.0 10^3/ul Nucleated RBC % 0.1 Sodium 137 D (135-145) mmol/L Potassium 2.6 L* (3.5-5.0) mmol/L Chloride 103 (101-111) mmol/L Carbon Dioxide 22 (22-32) mmol/L Anion Gap 12 H (2-11) mmol/L BUN 8 (6-24) mg/dL Creatinine 0.95 (0.67-1.17) mg/dL Est GFR ( Amer) 114.2 (>60) Est GFR (Non-Af Amer) 94.4 (>60) BUN/Creatinine Ratio 8.4 (8-20) Glucose 100 (70-100) mg/dL Calcium 8.8 (8.6-10.3) mg/dL Total Bilirubin 0.40 (0.2-1.0) mg/dL AST 51 H (13-39) U/L ALT 35 (7-52) U/L Alkaline Phosphatase 52 (34-104) U/L Total Protein 6.7 (6.4-8.9) g/dL Albumin 4.0 (3.2-5.2) g/dL Globulin 2.7 (2-4) g/dL Albumin/Globulin Ratio 1.5 (1-3) TSH 4.30 (0.34-5.60) mcIU/mL Urine Color Yellow Urine Appearance Clear Urine pH 6.0 (5-9) Ur Specific [place] 1.010 (1.010-1.030) Urine Protein Negative (Negative) Urine Ketones Trace A (Negative) Urine Blood Negative (Negative) Urine Nitrate Negative (Negative) Urine Bilirubin Negative (Negative) Urine Urobilinogen Negative (Negative) Ur Leukocyte Esterase Negative (Negative) Urine Glucose Negative (Negative) Urine Ascorbic Acid * A (Negative) Salicylates < 2.50 (<30) mg/dL Urine Opiates Screen (None Detect) Acetaminophen < 15 mcg/mL Ur Barbiturates Screen (None Detect) Ur Phencyclidine Scrn (None Detect) Ur Amphetamines Screen (None Detect) U Benzodiazepines Scrn (None Detect) Urine Cocaine Screen (None Detect) U Cannabinoids Screen (None Detect) Serum Alcohol 102 H (<10) mg/dL 01/14/19 Range/Units 15:30 WBC (3.5-10.8) 10^3/uL RBC (4.18-5.48) 10^6 /uL Hgb (14.0-18.0) g/dL Hct (42-52) % MCV (80-94) fL MCH (27-31) pg MCHC (31-36) g/dL RDW (10-15) % Plt Count (150-450) 10^3/uL MPV (7.4-10.4) fL Neut % (Auto) % Lymph % (Auto) % Pershing % (Auto) % Eos % (Auto) % Baso % (Auto) % Absolute Neuts (auto) (1.5-7.7) 10^3/ul Absolute Lymphs (auto) (1.0-4.8) 10^3/ul Absolute Monos (auto) (0-0.8) 10^3/ul Absolute Eos (auto) (0-0.6) 10^3/ul Absolute Basos (auto) (0-0.2) 10^3/ul Absolute Nucleated RBC 10^3/ul Nucleated RBC % Sodium (135-145) mmol/L Potassium (3.5-5.0) mmol/L Chloride (101-111) mmol/L Carbon Dioxide (22-32) mmol/L Anion Gap (2-11) mmol/L BUN (6-24) mg/dL Creatinine (0.67-1.17) mg/dL Est GFR ( Amer) (>60) Est GFR (Non-Af Amer) (>60) BUN/Creatinine Ratio (8-20) Glucose (70-100) mg/dL Calcium (8.6-10.3) mg/dL Total Bilirubin (0.2-1.0) mg/dL AST (13-39) U/L ALT (7-52) U/L Alkaline Phosphatase (34-104) U/L Total Protein (6.4-8.9) g/dL Albumin (3.2-5.2) g/dL Globulin (2-4) g/dL Albumin/Globulin Ratio (1-3) TSH (0.34-5.60) mcIU/mL Urine Color Urine Appearance Urine pH (5-9) Ur Specific [place] (1.010-1.030) Urine Protein (Negative) Urine Ketones (Negative) Urine Blood (Negative) Urine Nitrate (Negative) Urine Bilirubin (Negative) Urine Urobilinogen (Negative) Ur Leukocyte Esterase (Negative) Urine Glucose (Negative) Urine Ascorbic Acid (Negative) Salicylates (<30) mg/dL Urine Opiates Screen None detected (None Detect) Acetaminophen mcg/mL Ur Barbiturates Screen None detected (None Detect) Ur Phencyclidine Scrn Presumptive positive A (None Detect) Ur Amphetamines Screen None detected (None Detect) U Benzodiazepines Scrn None detected (None Detect) Urine Cocaine Screen None detected (None Detect) U Cannabinoids Screen None detected (None Detect) Serum Alcohol (<10) mg/dL Result Diagrams: 01/14/19 15:11 01/14/19 15:11 Lab Statement: Any lab studies that have been ordered have been reviewed, and results considered in the medical decision making process. Re-Evaluation - Re-Evaluation First Eval Re-Evaluation Time: 17:33 Comment: Patient has steady, normal gait, clear speech, VSS. Negative workup thus far. No SI/HI reported. Patient to follow up with [facility]. Hypokalemia suspected to be secondary to poor nutritional intake. Course/Dx - Course Course Of Treatment: Patient is a 28 y/o M presenting to ED via EMS under 2209. It is reported that he was at a counseling appointment at 1030 today and his mental status gradually declined, with him becoming more alerted. Patient had been at appointment for four hours. In room, he states that he took some substances while at the appointment. When asked what he took, he reports that he drank alcohol, took coricidin and something else he cannot recall. Patient does not provide further information. Patient denies SI and HI. On physical exam , patient is noted to have mildly slurred speech and sleepy appearance. Patient has a normal, steady gait. 1733 - Patient has steady, normal gait, clear speech , VSS. Negative workup thus far. No SI/HI reported. Patient to follow up with [facility]. Hypokalemia suspected to be secondary to poor nutritional intake. - Diagnoses Provider Diagnoses: Alcohol intoxication, Hypokalemia Discharge - Sign-Out/Discharge Documenting (check all that apply): Patient Departure - discharge Patient Received Moderate/Deep Sedation with Procedure: No - Discharge Plan Condition: Stable Disposition: HOME Patient Education Materials: Hypokalemia (ED), Alcohol Intoxication (ED) Referrals: [facility] [Outside] - 3 Days [facility] [Outside] - 3 Days Additional Instructions: PLEASE RETURN TO EMERGENCY DEPARTMENT FOR ANY NEW OR WORSENING SYMPTOMS. FOLLOW UP WITH [facility] AND [facility] WITHIN THREE DAYS. - Attestation Statements Document Initiated by Scribe: Yes Documenting Scribe: SHERWIN HALL Provider For Whom Scribe is Documenting (Include Credential): MILTON SHELTON MD Scribe Attestation: I, SHERWIN HALL, scribed for MILTON SHELTON MD on 01/14/19 at 1845. Status of Scribe Document: Ready
[2019-01-14 18:00] VITALS: BP 135/90
== END 2019-01-14 17:58 | disposition home or self-care (01) ==
LOC: ED 14:45
DX: F10.929 Alcohol use, unspecified with intoxication, unspecified (principal); E87.6 Hypokalemia; F19.90 Other psychoactive substance use, unspecified, uncomplicated; E03.9 Hypothyroidism, unspecified; I10 Essential (primary) hypertension; F17.210 Nicotine dependence, cigarettes, uncomplicated
CPT/HCPCS: 36415; 80053; 80307; 80320; 80329; 81003; 84443; 85025; 99282; A9270-GY; G0480

== ENCOUNTER 2019-01-24 16:29 | Emergency (ER) | payer OTHER ==
[2019-01-24 17:51] LABS: ABS Basophils 0.1 10^3/ul (0-0.2); ABS Eosinophils 0.1 10^3/ul (0-0.6); ABS Lymphocytes 2.5 10^3/ul (1.0-4.8); ABS Monocytes 0.7 10^3/ul (0-0.8); ABS Neutrophils 2.6 10^3/ul (1.5-7.7); Eosinophil % 1.5 %; Hematocrit 41 % (42-52); Hemoglobin 13.5 g/dL (14.0-18.0); Lymphocyte % 41.6 %; Mean Corpuscular HGB Conc 33 g/dL (31-36); Mean Corpuscular Hemoglobin 29 pg (27-31); Mean Corpuscular Volume 89 fL (80-94); Mean Platelet Volume 8.1 fL (7.4-10.4); Nucleated Red Blood Cells % 0.2; Platelet Count 209 10^3/uL (150-450); Red Blood Count 4.64 10^6 /uL (4.18-5.48); Red Cell Distribution Width 17 % (10-15)
[2019-01-24 17:58] LABS: ALT 42 U/L (7-52); AST 45 U/L (13-39); Albumin 4.1 g/dL (3.2-5.2); Albumin/Globulin Ratio 1.4 (1-3); Alkaline Phosphatase 63 U/L (34-104); Anion Gap 11 mmol/L (2-11); BUN/Creatinine Ratio 11.1 (8-20); Blood Urea Nitrogen 9 mg/dL (6-24); CO2 Carbon Dioxide 24 mmol/L (22-32); Calcium 8.4 mg/dL (8.6-10.3); Chloride 106 mmol/L (101-111); EGFR African American 137.3 (>60); EGFR Non-African American 113.5 (>60); Globulin 2.9 g/dL (2-4); Glucose 70 mg/dL (70-100); Potassium 3.3 mmol/L (3.5-5.0); Sodium 141 mmol/L (135-145)
[2019-01-24 18:16] LABS: Acetaminophen < 15 mcg/mL; Alcohol 98 mg/dL (<10); Salicylate < 2.50 mg/dL (<30)
[2019-01-24 18:29] LABS: TSH (Thyroid Stimulating Horm) 2.78 mcIU/mL (0.34-5.60)
[2019-01-24] MEDS ORDERED: NS 0.9% 1000 ML** 2,000 ML IV ONE (18:35)
[2019-01-24 19:13] LABS: Urine Appearance Clear; Urine Bilirubin Negative (Negative); Urine Blood Negative (Negative); Urine Color Straw; Urine Glucose Negative (Negative); Urine Ketones Negative (Negative); Urine Nitrite Negative (Negative); Urine Protein Negative (Negative); Urine Specific Gravity 1.004 (1.010-1.030); Urine Urobilinogen Negative (Negative)
[2019-01-24 19:33] LABS: Urine Benzodiazepine Screen None Detected (None Detect); Urine Opiates Screen None Detected (None Detect)
[2019-01-24] MEDS ORDERED: LORazepam INJ* 2 MG/ML 1 ML VIAL IV PUSH ONE (20:40)
[2019-01-24] MEDS ORDERED: Lorazepam PYXIS KEY PRN (20:40)
[2019-01-24] MEDS ORDERED: Lorazepam PYXIS KEY ONE (20:49)
--- NOTE | 2019-01-24 22:28 | ED ---
Substance Abuse/Use - HPI Summary HPI Summary: 28 year old M brought to [facility] by EMS with a chief complaint of drug overdose since 1600 today, 01/24/19, per triage. Patient reports he took 48 Coricidin tablets and denies SI or plans to harm himself. Patient reports used the drug to get high. Patient denies any fever, chills, erythema of eyes, sore throat , CP, SOB, cough, abdominal pain, N/V, dysuria, hematuria, myalgia, edema, rash , or dizziness. Patient was non-verbal upon entering ED. Symptoms aggravated by nothing. Symptoms alleviated by nothing. - History Of Current Complaint Chief Complaint: EDOverdose Stated Complaint: OVERDOSE PER EMS Time Seen by Provider: 01/24/19 17:18 Hx Obtained From: Patient Ingestion History: Type/Name Of Drug - Coricidn, Amount Ingested - 48 tablets Aggravating Factor(s): Nothing Alleviating Factor(s): Nothing - Allergies/Home Medications Allergies/Adverse Reactions: Allergies Allergy/AdvReac Type Severity Reaction Status Date / Time No Known Allergies Allergy Verified 01/14/19 14:49 PMH/Surg Hx/FS Hx/Imm Hx Endocrine/Hematology History: Reports: Hx Thyroid Disease - Hypothyroidism Denies: Hx Anticoagulant Therapy, Hx Blood Disorders, Hx Blood Transfusions, Hx Bone Marrow Disease, Hx Diabetes, Hx Systemic Lupus Erythematosus, Hx Sickle Cell Disease, Hx Anemia, Hx Unexplained Bleeding, Other Endocrine/Hematological Disorders Cardiovascular History: Reports: Hx Hypertension Denies: Hx Aneurysm, Hx Angina, Hx Angioplasty, Hx Auto Implanted Cardiovert Defib, Hx Cardiac Arrest, Hx Cardiomegaly, Hx Congenital Heart Disease, Hx Congestive Heart Failure, Hx Coronary Artery Disease, Hx Deep Vein Thrombosis, Hx Embolism, Hx Hypercholesterolemia, Hx Hypotension, Hx Pacemaker/ICD, Hx Peripheral Vascular Disease, Hx Rheumatic Fever, Hx Syncope, Hx Valvular Heart Disease, Other Cardiovascular Problems/Disorders Respiratory History: Reports: Hx Pneumonia, Hx Seasonal Allergies Denies: Hx Asthma, Hx Chronic Bronchitis, Hx Chronic Obstructive Pulmonary Disease (COPD), Hx Cystic Fibrosis, Hx Lung Cancer, Hx Pleural Effusion, Hx Pulmonary Edema, Hx Pulmonary Embolism, Hx Sleep Apnea, Other Respiratory Problems/Disorders GI History: Reports: Hx Ulcer Denies: Hx Cirrhosis, Hx Crohn's Disease, Hx Diverticulosis, Hx Gall Bladder Disease, Hx Gastroesophageal Reflux Disease, Hx Gastrointestinal Bleed, Hx Hiatal Hernia, Hx Irritable Bowel, Hx Jaundice, Hx Obstructive Bowel, Hx Ileostomy, Hx Pyloric Stenosis, Other GI Disorders History: Denies: Hx Acute Renal Failure, Hx Benign Prostatic Hyperplasia, Hx Chronic Renal Failure, Hx Dialysis, Hx Kidney Infection, Hx Kidney Stones, Hx Renal Disease, Other Problems/Disorders Musculoskeletal History: Denies: Hx Arthritis, Hx Back Problems, Hx Bursitis, Hx Congenital Bone Abnormalities, Hx Fibromyalgia, Hx Gout, Hx Orthopedic Injury, Hx Osteoporosis, Hx Scoliosis, Hx Tendonitis, Other Musculoskeletal History Sensory History: Denies: Hx Cataracts, Hx Contacts or Glasses, Hx Eye Injury, Hx Eye Prosthesis, Hx Glaucoma, Hx Legally Blind, Hx Macular Degeneration, Hx Vision Problem, Hx Deafness, Hx Hearing Aid, Other Sensory Impairments Opthamlomology History: Denies: Hx Cataracts, Hx Contacts or Glasses, Hx Eye Injury, Hx Eye Prosthesis, Hx Glaucoma, Hx Legally Blind, Hx Macular Degeneration, Hx Vision Problem, Other Sensory Impairments Neurological History: Reports: Hx Headaches, Hx Seizures Denies: Hx Dementia, Hx Developmental Delay, Hx Migraine, Hx Nerve Disease, Hx Spinal Cord Injury, Hx Transient Ischemic Attacks (TIA), Other Neuro Impairments/Disorders Psychiatric History: Reports: Hx Anxiety, Hx Depression, Hx Post Traumatic Stress Disorder, Hx Inpatient Treatment, Hx Community Mental Health Tx, Hx Bipolar Disorder, Hx of Violent Episodes Against Others, Hx Substance Abuse, Other Psychiatric Issues/Disorders Denies: Hx Attention Deficit Hyperactivity Disorder, Hx Eating Disorder, Hx Panic Disorder, Hx Schizophrenia, Hx Suicide Attempt - Cancer History Cancer Type, Location and Year: None reported - Surgical History Surgery Procedure, Year, and Place: none Hx Anesthesia Reactions: No - Immunization History Date of Tetanus Vaccine: Unknown Date of Influenza Vaccine: None Infectious Disease History: No Infectious Disease History: Reports: Hx Hepatitis - Hep C Denies: Hx Clostridium Difficile, Hx Human Immunodeficiency Virus (HIV), Hx of Known/Suspected MRSA, Hx Shingles, Hx Tuberculosis, Hx Known/Suspected VRE, Hx Known/Suspected VRSA, History Other Infectious Disease, Traveled Outside the [place] in Last 30 Days - Family History Known Family History: Positive: Other - cancer Negative: Renal Disease Family History: father - ETOH - Social History Alcohol Use: Daily Alcohol Amount: beers Hx Substance Use: Yes Substance Use Type: Reports: Cocaine, Prescribed, Other Substance Use Comment - Amount & Last Used: 09/04, 09/05/18,09/06, 09/07, 09/08, 2018 Coricidin overdose Hx Tobacco Use: Yes Smoking Status (MU): Heavy Every Day Tobacco Smoker Type: Cigarettes Have You Smoked in the Last Year: Yes Review of Systems Negative: Fever, Chills Negative: Erythema Negative: Sore Throat Negative: Shortness Of Breath, Cough Negative: Abdominal Pain, Vomiting, Nausea Negative: dysuria, hematuria Negative: Myalgia, Edema Negative: Rash Neurological: Other - drug abuse, denies SI, dizziness All Other Systems Reviewed And Are Negative: Yes Physical Exam - Summary Physical Exam Summary: Constitutional: diaphoretic (-) Distressed Skin: Warm, Dry HENT: Normocephalic; Atraumatic Eyes: has a nystagmus Neck: Musculoskeletal ROM normal neck. (-) JVD, (-) Stridor, (-) Tracheal deviation Cardio: Rhythm regular, tachycardia, , Heart sounds normal; Intact distal pulses ; The pedal pulses are 2+ and symmetric. Radial pulses are 2+ and symmetric. (- ) Murmur Pulmonary/Chest wall: Effort normal. (-) Respiratory distress, (-) Wheezes, (-) Rales Abd: Soft, (-) tenderness, (-) Distension, (-) Guarding, (-) Rebound Musculoskeletal: (-) Edema Lymph: (-) Cervical adenopathy Neuro: Alert, Oriented x3 Psych: Mood and affect Normal Triage Information Reviewed: Yes Vital Signs On Initial Exam: Initial Vitals Temp Pulse Resp BP Pulse Ox 99 F 107 22 148/102 96 01/24/19 16:42 01/24/19 16:42 01/24/19 16:42 01/24/19 16:42 01/24/19 16:42 Vital Signs Reviewed: Yes Diagnostics - Vital Signs Vital Signs Temp Pulse Resp BP Pulse Ox 01/24/19 21:41 99 F 01/24/19 21:06 17 01/24/19 20:47 113 17 148/101 98 01/24/19 20:02 99.9 F 103 18 157/100 96 01/24/19 18:16 110 20 133/82 95 01/24/19 16:42 99 F 107 22 148/102 96 - Laboratory Lab Results: Lab Results 01/24/19 01/24/19 01/24/19 Range/Units 17:30 17:30 18:56 WBC 6.0 (3.5-10.8) 10^3/uL RBC 4.64 (4.18-5.48) 10^6 /uL Hgb 13.5 L (14.0-18.0) g/dL Hct 41 L (42-52) % MCV 89 (80-94) fL MCH 29 (27-31) pg MCHC 33 (31-36) g/dL RDW 17 H (10-15) % Plt Count 209 (150-450) 10^3/uL MPV 8.1 (7.4-10.4) fL Neut % (Auto) 43.7 % Lymph % (Auto) 41.6 % [place] % (Auto) 12.2 % Eos % (Auto) 1.5 % Baso % (Auto) 1.0 % Absolute Neuts (auto) 2.6 (1.5-7.7) 10^3/ul Absolute Lymphs (auto) 2.5 (1.0-4.8) 10^3/ul Absolute Monos (auto) 0.7 (0-0.8) 10^3/ul Absolute Eos (auto) 0.1 (0-0.6) 10^3/ul Absolute Basos (auto) 0.1 (0-0.2) 10^3/ul Absolute Nucleated RBC 0.0 10^3/ul Nucleated RBC % 0.2 Sodium 141 (135-145) mmol/L Potassium 3.3 L (3.5-5.0) mmol/L Chloride 106 (101-111) mmol/L Carbon Dioxide 24 (22-32) mmol/L Anion Gap 11 (2-11) mmol/L BUN 9 (6-24) mg/dL Creatinine 0.81 (0.67-1.17) mg/dL Est GFR ( Amer) 137.3 (>60) Est GFR (Non-Af Amer) 113.5 (>60) BUN/Creatinine Ratio 11.1 (8-20) Glucose 70 (70-100) mg/dL Calcium 8.4 L (8.6-10.3) mg/dL Total Bilirubin 0.40 (0.2-1.0) mg/dL AST 45 H (13-39) U/L ALT 42 (7-52) U/L Alkaline Phosphatase 63 (34-104) U/L Total Protein 7.0 (6.4-8.9) g/dL Albumin 4.1 (3.2-5.2) g/dL Globulin 2.9 (2-4) g/dL Albumin/Globulin Ratio 1.4 (1-3) TSH 2.78 (0.34-5.60) mcIU/mL Urine Color Straw Urine Appearance Clear Urine pH 7.0 (5-9) Ur Specific [place] 1.004 L (1.010-1.030) Urine Protein Negative (Negative) Urine Ketones Negative (Negative) Urine Blood Negative (Negative) Urine Nitrate Negative (Negative) Urine Bilirubin Negative (Negative) Urine Urobilinogen Negative (Negative) Ur Leukocyte Esterase Negative (Negative) Urine Glucose Negative (Negative) Salicylates < 2.50 (<30) mg/dL Urine Opiates Screen (None Detect) Acetaminophen < 15 mcg/mL Ur Barbiturates Screen (None Detect) Ur Phencyclidine Scrn (None Detect) Ur Amphetamines Screen (None Detect) U Benzodiazepines Scrn (None Detect) Urine Cocaine Screen (None Detect) U Cannabinoids Screen (None Detect) Serum Alcohol 98 H (<10) mg/dL 01/24/19 Range/Units 18:56 WBC (3.5-10.8) 10^3/uL RBC (4.18-5.48) 10^6 /uL Hgb (14.0-18.0) g/dL Hct (42-52) % MCV (80-94) fL MCH (27-31) pg MCHC (31-36) g/dL RDW (10-15) % Plt Count (150-450) 10^3/uL MPV (7.4-10.4) fL Neut % (Auto) % Lymph % (Auto) % [place] % (Auto) % Eos % (Auto) % Baso % (Auto) % Absolute Neuts (auto) (1.5-7.7) 10^3/ul Absolute Lymphs (auto) (1.0-4.8) 10^3/ul Absolute Monos (auto) (0-0.8) 10^3/ul Absolute Eos (auto) (0-0.6) 10^3/ul Absolute Basos (auto) (0-0.2) 10^3/ul Absolute Nucleated RBC 10^3/ul Nucleated RBC % Sodium (135-145) mmol/L Potassium (3.5-5.0) mmol/L Chloride (101-111) mmol/L Carbon Dioxide (22-32) mmol/L Anion Gap (2-11) mmol/L BUN (6-24) mg/dL Creatinine (0.67-1.17) mg/dL Est GFR ( Amer) (>60) Est GFR (Non-Af Amer) (>60) BUN/Creatinine Ratio (8-20) Glucose (70-100) mg/dL Calcium (8.6-10.3) mg/dL Total Bilirubin (0.2-1.0) mg/dL AST (13-39) U/L ALT (7-52) U/L Alkaline Phosphatase (34-104) U/L Total Protein (6.4-8.9) g/dL Albumin (3.2-5.2) g/dL Globulin (2-4) g/dL Albumin/Globulin Ratio (1-3) TSH (0.34-5.60) mcIU/mL Urine Color Urine Appearance Urine pH (5-9) Ur Specific [place] (1.010-1.030) Urine Protein (Negative) Urine Ketones (Negative) Urine Blood (Negative) Urine Nitrate (Negative) Urine Bilirubin (Negative) Urine Urobilinogen (Negative) Ur Leukocyte Esterase (Negative) Urine Glucose (Negative) Salicylates (<30) mg/dL Urine Opiates Screen None detected (None Detect) Acetaminophen mcg/mL Ur Barbiturates Screen None detected (None Detect) Ur Phencyclidine Scrn Presumptive positive A (None Detect) Ur Amphetamines Screen None detected (None Detect) U Benzodiazepines Scrn None detected (None Detect) Urine Cocaine Screen None detected (None Detect) U Cannabinoids Screen None detected (None Detect) Serum Alcohol (<10) mg/dL Result Diagrams: 01/24/19 17:30 01/24/19 17:30 Lab Statement: Any lab studies that have been ordered have been reviewed, and results considered in the medical decision making process. Re-Evaluation - Re-Evaluation First Eval Re-Evaluation Time: 22:20 Comment: Heart rate normalized, speech is clear, drinking liquids, gate is stable Course/Dx - Course Course Of Treatment: 28 year old M brought to [facility] by EMS with a chief complaint of drug overdose since 1600 today, 01/24/19, per triage. Patient reports he took 48 Coricidin tablets and denies SI or plans to harm himself. Patient reports used the drug to get high. Patient denies any fever, chills, erythema of eyes, sore throat, CP, SOB, cough, abdominal pain, N/V, dysuria, hematuria, myalgia, edema, rash, or dizziness. Patient was non-verbal upon entering ED. Physical exam reveals no abnormalities except for diaphoretic, tachycardia, has a nystagmus. Bloodwork shows no abnormalities except for Hgb 13.5 L, Hct 41 L, RDW 17 H, Potassium 3.3 L, Calcium 8.4 L, and AST 45 H. Urinalysis shows no abnormalities except for Ur Specific [place] 1.004 L, Ur Phencyclidine Scrn Presumptive positive A, and Serum alcohol 98 H. Patient was given 1 mg lorazepam and saline in the ED. Physician discusses discharge with patient who agrees with discharge. Patient will be discharged and will follow up with [facility] [employer], and [facility] [employer] in 2-3 days. - Diagnoses Provider Diagnoses: Polysubstance abuse Discharge - Sign-Out/Discharge Documenting (check all that apply): Patient Departure - discharge Patient Received Moderate/Deep Sedation with Procedure: No - Discharge Plan Condition: Stable Disposition: HOME Patient Education Materials: Polysubstance Abuse (ED) Referrals: [facility] - Residential Facility [Outside] - 3 Days [facility] [Outside] - 3 Days [facility] [Outside] - 3 Days Additional Instructions: Follow up with [facility], and [facility] [employer] in 2- 3 days. Return to the ED for any new or worsening symptoms. - Attestation Statements Document Initiated by Scribe: Yes Documenting Scribe: Mary Pan Provider For Whom Scribe is Documenting (Include Credential): Dr. Javed Felipe MD Scribe Attestation: Mary Brunner, scribed for Dr. Javed Felipe MD on 01/25/19 at 0043. Status of Scribe Document: Ready
[2019-01-25 00:44] VITALS: BP 144/100
== END 2019-01-25 00:43 | disposition home or self-care (01) ==
LOC: ED 16:29
DX: F19.10 Other psychoactive substance abuse, uncomplicated (principal); I10 Essential (primary) hypertension; F17.210 Nicotine dependence, cigarettes, uncomplicated
CPT/HCPCS: 36415; 80053; 80307; 80320; 80329; 81003; 84443; 85025; 96361; 96374; 99285; G0480; J2060

== ENCOUNTER 2019-01-25 21:58 | Emergency (ER) | payer OTHER ==
--- NOTE | 2019-01-25 23:53 | ED ---
Substance Abuse/Use - HPI Summary HPI Summary: Level 5 CAVEAT: HPI Limited due to ETOH intoxication. This patient is a 28 year old male brought in on a 2209 for alcohol intoxication. - History Of Current Complaint Chief Complaint: EDSubstanceAbuse Stated Complaint: 2209/ETOH PER EMS Time Seen by Provider: 01/25/19 23:46 - Allergies/Home Medications Allergies/Adverse Reactions: Allergies Allergy/AdvReac Type Severity Reaction Status Date / Time No Known Allergies Allergy Verified 01/14/19 14:49 PMH/Surg Hx/FS Hx/Imm Hx Endocrine/Hematology History: Reports: Hx Thyroid Disease - Hypothyroidism Denies: Hx Anticoagulant Therapy, Hx Blood Disorders, Hx Blood Transfusions, Hx Bone Marrow Disease, Hx Diabetes, Hx Systemic Lupus Erythematosus, Hx Sickle Cell Disease, Hx Anemia, Hx Unexplained Bleeding, Other Endocrine/Hematological Disorders Cardiovascular History: Reports: Hx Hypertension Denies: Hx Aneurysm, Hx Angina, Hx Angioplasty, Hx Auto Implanted Cardiovert Defib, Hx Cardiac Arrest, Hx Cardiomegaly, Hx Congenital Heart Disease, Hx Congestive Heart Failure, Hx Coronary Artery Disease, Hx Deep Vein Thrombosis, Hx Embolism, Hx Hypercholesterolemia, Hx Hypotension, Hx Pacemaker/ICD, Hx Peripheral Vascular Disease, Hx Rheumatic Fever, Hx Syncope, Hx Valvular Heart Disease, Other Cardiovascular Problems/Disorders Respiratory History: Reports: Hx Pneumonia, Hx Seasonal Allergies Denies: Hx Asthma, Hx Chronic Bronchitis, Hx Chronic Obstructive Pulmonary Disease (COPD), Hx Cystic Fibrosis, Hx Lung Cancer, Hx Pleural Effusion, Hx Pulmonary Edema, Hx Pulmonary Embolism, Hx Sleep Apnea, Other Respiratory Problems/Disorders GI History: Reports: Hx Ulcer Denies: Hx Cirrhosis, Hx Crohn's Disease, Hx Diverticulosis, Hx Gall Bladder Disease, Hx Gastroesophageal Reflux Disease, Hx Gastrointestinal Bleed, Hx Hiatal Hernia, Hx Irritable Bowel, Hx Jaundice, Hx Obstructive Bowel, Hx Ileostomy, Hx Pyloric Stenosis, Other GI Disorders History: Denies: Hx Acute Renal Failure, Hx Benign Prostatic Hyperplasia, Hx Chronic Renal Failure, Hx Dialysis, Hx Kidney Infection, Hx Kidney Stones, Hx Renal Disease, Other Problems/Disorders Musculoskeletal History: Denies: Hx Arthritis, Hx Back Problems, Hx Bursitis, Hx Congenital Bone Abnormalities, Hx Fibromyalgia, Hx Gout, Hx Orthopedic Injury, Hx Osteoporosis, Hx Scoliosis, Hx Tendonitis, Other Musculoskeletal History Sensory History: Denies: Hx Cataracts, Hx Contacts or Glasses, Hx Eye Injury, Hx Eye Prosthesis, Hx Glaucoma, Hx Legally Blind, Hx Macular Degeneration, Hx Vision Problem, Hx Deafness, Hx Hearing Aid, Other Sensory Impairments Opthamlomology History: Denies: Hx Cataracts, Hx Contacts or Glasses, Hx Eye Injury, Hx Eye Prosthesis, Hx Glaucoma, Hx Legally Blind, Hx Macular Degeneration, Hx Vision Problem, Other Sensory Impairments Neurological History: Reports: Hx Headaches, Hx Seizures Denies: Hx Dementia, Hx Developmental Delay, Hx Migraine, Hx Nerve Disease, Hx Spinal Cord Injury, Hx Transient Ischemic Attacks (TIA), Other Neuro Impairments/Disorders Psychiatric History: Reports: Hx Anxiety, Hx Depression, Hx Post Traumatic Stress Disorder, Hx Inpatient Treatment, Hx Community Mental Health Tx, Hx Bipolar Disorder, Hx of Violent Episodes Against Others, Hx Substance Abuse, Other Psychiatric Issues/Disorders Denies: Hx Attention Deficit Hyperactivity Disorder, Hx Eating Disorder, Hx Panic Disorder, Hx Schizophrenia, Hx Suicide Attempt - Cancer History Cancer Type, Location and Year: None reported - Surgical History Surgery Procedure, Year, and Place: none Hx Anesthesia Reactions: No - Immunization History Date of Tetanus Vaccine: Unknown Date of Influenza Vaccine: None Infectious Disease History: No Infectious Disease History: Reports: Hx Hepatitis - Hep C Denies: Hx Clostridium Difficile, Hx Human Immunodeficiency Virus (HIV), Hx of Known/Suspected MRSA, Hx Shingles, Hx Tuberculosis, Hx Known/Suspected VRE, Hx Known/Suspected VRSA, History Other Infectious Disease, Traveled Outside the [place] in Last 30 Days - Family History Known Family History: Positive: Other - cancer Negative: Renal Disease Family History: father - ETOH - Social History Alcohol Use: Daily Alcohol Amount: beers Hx Substance Use: Yes Substance Use Type: Reports: Cocaine, Prescribed, Other Substance Use Comment - Amount & Last Used: 09/04, 09/05/18,09/06, 09/07, 09/08, 2018 Coricidin overdose Hx Tobacco Use: Yes Smoking Status (MU): Heavy Every Day Tobacco Smoker Type: Cigarettes Have You Smoked in the Last Year: Yes - Additional Comments History Additional Comments: LEVEL 5 CAVEAT: PMH Limited due to ETOH intoxication. Review of Systems - ROS Summary Review of Systems Summary: LEVEL 5 CAVEAT: ROS Limited due to ETOH intoxication. Positive: Other - ETOH intoxication All Other Systems Reviewed And Are Negative: No Physical Exam - Summary Physical Exam Summary: VITAL SIGNS: Reviewed. GENERAL: Patient is an intoxicated MALE who is lying comfortable in the stretcher. Patient is not in any acute respiratory distress. HEAD AND FACE: No signs of trauma. No ecchymosis, hematomas or skull depressions. No sinus tenderness. EYES: PERRLA, EOMI x 2, No injected conjunctiva, no nystagmus. EARS: Hearing grossly intact. Ear canals and tympanic membranes are within normal limits. MOUTH: Oropharynx within normal limits. NECK: Supple, trachea is midline, no adenopathy, no JVD, no carotid bruit, no c- spine tenderness, neck with full ROM. CHEST: Symmetric, no tenderness at palpation LUNGS: Clear to auscultation bilaterally. No wheezing or crackles. CVS: Regular rate and rhythm, S1 and S2 present, no murmurs or gallops appreciated. ABDOMEN: Soft, non-tender. No signs of distention. No rebound no guarding, and no masses palpated. Bowel sounds are normal. EXTREMITIES: FROM in all major joints, no edema, no cyanosis or clubbing. NEURO: Patient is only responsive to touch. SKIN: Dry and warm Triage Information Reviewed: Yes Vital Signs On Initial Exam: Initial Vitals Temp Pulse Resp BP Pulse Ox 98.4 F 92 24 123/76 98 01/25/19 22:02 01/25/19 22:02 01/25/19 22:02 01/25/19 22:02 01/25/19 22:02 Vital Signs Reviewed: Yes Diagnostics - Vital Signs Vital Signs Temp Pulse Resp BP Pulse Ox 01/25/19 22:02 98.4 F 92 24 123/76 98 - Laboratory Lab Statement: Any lab studies that have been ordered have been reviewed, and results considered in the medical decision making process. Course/Dx - Course Course Of Treatment: This patient is a 28 year old male brought in on a 2209 for alcohol intoxication. At 0540 the patient was sober and ambulating in the ED. A plan for discharge was discussed with the patient and he was agreeable with this plan. - Diagnoses Provider Diagnoses: Alcohol intoxication Discharge - Sign-Out/Discharge Documenting (check all that apply): Patient Departure - Discharge Patient Received Moderate/Deep Sedation with Procedure: No - Discharge Plan Condition: Stable Disposition: HOME Patient Education Materials: Alcohol Intoxication (ED) Referrals: No Primary Care Phys,NOPCP [Primary Care Provider] - Additional Instructions: Return to ED with new or worsening symptoms. - Attestation Statements Document Initiated by Scribe: Yes Documenting Scribe: Dario Hodgson Provider For Whom Scribe is Documenting (Include Credential): Twan Villarreal MD Scribe Attestation: IDario, scribed for Twan Villarreal MD on 01/26/19 at 0540. Status of Scribe Document: Ready
[2019-01-26 06:10] VITALS: BP 166/100
== END 2019-01-26 06:08 | disposition home or self-care (01) ==
LOC: ED 21:58
DX: F10.929 Alcohol use, unspecified with intoxication, unspecified (principal); E03.9 Hypothyroidism, unspecified; I10 Essential (primary) hypertension; F17.210 Nicotine dependence, cigarettes, uncomplicated
CPT/HCPCS: 99284

== ENCOUNTER 2019-01-26 12:54 | Emergency (ER) | payer OTHER ==
[2019-01-26 13:28] LABS: ABS Basophils 0.1 10^3/ul (0-0.2); ABS Eosinophils 0.1 10^3/ul (0-0.6); ABS Lymphocytes 2.6 10^3/ul (1.0-4.8); ABS Monocytes 0.9 10^3/ul (0-0.8); ABS Neutrophils 4.7 10^3/ul (1.5-7.7); Eosinophil % 0.8 %; Hematocrit 39 % (42-52); Hemoglobin 13.4 g/dL (14.0-18.0); Lymphocyte % 31.8 %; Mean Corpuscular HGB Conc 34 g/dL (31-36); Mean Corpuscular Hemoglobin 30 pg (27-31); Mean Corpuscular Volume 88 fL (80-94); Mean Platelet Volume 8.1 fL (7.4-10.4); Nucleated Red Blood Cells % 0.2; Platelet Count 199 10^3/uL (150-450); Red Blood Count 4.46 10^6 /uL (4.18-5.48); Red Cell Distribution Width 17 % (10-15); White Blood Count 8.3 10^3/uL (3.5-10.8)
--- NOTE | 2019-01-26 13:29 | ED ---
Substance Abuse/Use - HPI Summary HPI Summary: This patient is a 28 year old M [place] to ED with a chief complaint of overdose and agitation since this morning. Patient was found "nonresponsive" in the [facility] , but when EMS arrived he became agitated. Per EMS, patient had alcohol and triple C coridicin pills. Patient only had one pill missing from package. On arrival to the ED patient very agitated, hyperverbal and yelling at staff. Patient with frequent ED visits for similar. - History Of Current Complaint Chief Complaint: EDOverdose Stated Complaint: POSSIBLE OVERDOSE Time Seen by Provider: 01/26/19 12:55 Hx Obtained From: EMS Ingestion History: Type/Name Of Drug - Triple C Coricidin, Alcohol Overdose Characteristics: Oral Timing Of Abuse: Binge Use Character: Angry Aggravating Factor(s): Nothing Alleviating Factor(s): Nothing Associated Signs And Symptoms: Hostile - Allergies/Home Medications Allergies/Adverse Reactions: Allergies Allergy/AdvReac Type Severity Reaction Status Date / Time No Known Allergies Allergy Verified 01/14/19 14:49 PMH/Surg Hx/FS Hx/Imm Hx Endocrine/Hematology History: Reports: Hx Thyroid Disease - Hypothyroidism Denies: Hx Anticoagulant Therapy, Hx Blood Disorders, Hx Blood Transfusions, Hx Bone Marrow Disease, Hx Diabetes, Hx Systemic Lupus Erythematosus, Hx Sickle Cell Disease, Hx Anemia, Hx Unexplained Bleeding, Other Endocrine/Hematological Disorders Cardiovascular History: Reports: Hx Hypertension Denies: Hx Aneurysm, Hx Angina, Hx Angioplasty, Hx Auto Implanted Cardiovert Defib, Hx Cardiac Arrest, Hx Cardiomegaly, Hx Congenital Heart Disease, Hx Congestive Heart Failure, Hx Coronary Artery Disease, Hx Deep Vein Thrombosis, Hx Embolism, Hx Hypercholesterolemia, Hx Hypotension, Hx Pacemaker/ICD, Hx Peripheral Vascular Disease, Hx Rheumatic Fever, Hx Syncope, Hx Valvular Heart Disease, Other Cardiovascular Problems/Disorders Respiratory History: Reports: Hx Pneumonia, Hx Seasonal Allergies Denies: Hx Asthma, Hx Chronic Bronchitis, Hx Chronic Obstructive Pulmonary Disease (COPD), Hx Cystic Fibrosis, Hx Lung Cancer, Hx Pleural Effusion, Hx Pulmonary Edema, Hx Pulmonary Embolism, Hx Sleep Apnea, Other Respiratory Problems/Disorders GI History: Reports: Hx Ulcer Denies: Hx Cirrhosis, Hx Crohn's Disease, Hx Diverticulosis, Hx Gall Bladder Disease, Hx Gastroesophageal Reflux Disease, Hx Gastrointestinal Bleed, Hx Hiatal Hernia, Hx Irritable Bowel, Hx Jaundice, Hx Obstructive Bowel, Hx Ileostomy, Hx Pyloric Stenosis, Other GI Disorders History: Denies: Hx Acute Renal Failure, Hx Benign Prostatic Hyperplasia, Hx Chronic Renal Failure, Hx Dialysis, Hx Kidney Infection, Hx Kidney Stones, Hx Renal Disease, Other Problems/Disorders Musculoskeletal History: Denies: Hx Arthritis, Hx Back Problems, Hx Bursitis, Hx Congenital Bone Abnormalities, Hx Fibromyalgia, Hx Gout, Hx Orthopedic Injury, Hx Osteoporosis, Hx Scoliosis, Hx Tendonitis, Other Musculoskeletal History Sensory History: Denies: Hx Cataracts, Hx Contacts or Glasses, Hx Eye Injury, Hx Eye Prosthesis, Hx Glaucoma, Hx Legally Blind, Hx Macular Degeneration, Hx Vision Problem, Hx Deafness, Hx Hearing Aid, Other Sensory Impairments Opthamlomology History: Denies: Hx Cataracts, Hx Contacts or Glasses, Hx Eye Injury, Hx Eye Prosthesis, Hx Glaucoma, Hx Legally Blind, Hx Macular Degeneration, Hx Vision Problem, Other Sensory Impairments Neurological History: Reports: Hx Headaches, Hx Seizures Denies: Hx Dementia, Hx Developmental Delay, Hx Migraine, Hx Nerve Disease, Hx Spinal Cord Injury, Hx Transient Ischemic Attacks (TIA), Other Neuro Impairments/Disorders Psychiatric History: Reports: Hx Anxiety, Hx Depression, Hx Post Traumatic Stress Disorder, Hx Inpatient Treatment, Hx Community Mental Health Tx, Hx Bipolar Disorder, Hx of Violent Episodes Against Others, Hx Substance Abuse, Other Psychiatric Issues/Disorders Denies: Hx Attention Deficit Hyperactivity Disorder, Hx Eating Disorder, Hx Panic Disorder, Hx Schizophrenia, Hx Suicide Attempt - Cancer History Cancer Type, Location and Year: None reported - Surgical History Surgery Procedure, Year, and Place: none Hx Anesthesia Reactions: No - Immunization History Date of Tetanus Vaccine: Unknown Date of Influenza Vaccine: None Infectious Disease History: No Infectious Disease History: Reports: Hx Hepatitis - Hep C Denies: Hx Clostridium Difficile, Hx Human Immunodeficiency Virus (HIV), Hx of Known/Suspected MRSA, Hx Shingles, Hx Tuberculosis, Hx Known/Suspected VRE, Hx Known/Suspected VRSA, History Other Infectious Disease, Traveled Outside the [place] in Last 30 Days - Family History Known Family History: Positive: Other - cancer Negative: Renal Disease Family History: father - ETOH - Social History Alcohol Use: Daily Alcohol Amount: beers Hx Substance Use: Yes Substance Use Type: Reports: Cocaine, Prescribed, Other Substance Use Comment - Amount & Last Used: 09/04, 09/05/18,09/06, 09/07, 09/08, 2018 Coricidin overdose Hx Tobacco Use: Yes Smoking Status (MU): Heavy Every Day Tobacco Smoker Type: Cigarettes Have You Smoked in the Last Year: Yes Review of Systems Negative: Fever Negative: Vomiting Psychological: Other - Agitated All Other Systems Reviewed And Are Negative: Yes Physical Exam - Summary Physical Exam Summary: General: Yelling, agitated. HEENT: PERRL Cardiovascular: Skin is well perfused Pulmonary: No respiratory distress, no tachypnea Abdomen: Non-distended Skin: Warm, pink, dry MSK: No edema Psych: yelling, agitated Neuro: A&Ox3 Did not touch patient secondary to patient agitation. Triage Information Reviewed: Yes Vital Signs On Initial Exam: Initial Vitals Temp Pulse Resp BP Pulse Ox 98.2 F 91 22 158/99 96 01/26/19 13:01 01/26/19 13:01 01/26/19 13:01 01/26/19 13:01 01/26/19 13:01 Vital Signs Reviewed: Yes Diagnostics - Vital Signs Vital Signs Temp Pulse Resp BP Pulse Ox 01/26/19 13:01 98.2 F 91 22 158/99 96 - Laboratory Result Diagrams: 01/26/19 13:15 01/26/19 13:15 Lab Statement: Any lab studies that have been ordered have been reviewed, and results considered in the medical decision making process. - EKG 1305 Cardiac Rate: NL - 89 BPM EKG Rhythm: Sinus Rhythm Summary of EKG Findings: 1305 NSR at 89 BPM, no significant changes from prior. Re-Evaluation - Re-Evaluation First Eval Re-Evaluation Time: 16:32 Comment: Patient is able to ambulate, steady gait, tolerated PO, alert and oriented x3. Declined potassium. Course/Dx - Course Course Of Treatment: 28 y/o male p/w alcohol intoxication, on arrival very agitated but AAOx3. Check labs acetaminophen and salicylate given possible ingestion. The patient was examined for signs of occult trauma, none of which were found. Will await sobriety - Diagnoses Provider Diagnoses: Alcohol intoxication Discharge - Sign-Out/Discharge Documenting (check all that apply): Patient Departure - Discharge Patient Received Moderate/Deep Sedation with Procedure: No - Discharge Plan Condition: Stable Disposition: HOME Patient Education Materials: Alcohol Intoxication (ED), Abuse of Alcohol (ED), Polysubstance Abuse (ED) Referrals: [facility] [Outside] - 3 Days Additional Instructions: You were seen in the emergency department for alcohol intoxication Please do not drink and drive. If you have thoughts of wanting to hurt yourself or others please come to the ED. If any studies were not completed at the time of discharge you will be called with the relevant results. Please follow up with your primary care doctor in next 2-3 days and return to emergency department for worsening or concerning symptoms. - Billing Disposition and Condition Condition: STABLE Disposition: Home - Attestation Statements Document Initiated by Mario: Yes Documenting Scribe: Arturo Worthington Provider For Whom Mario is Documenting (Include Credential): Javon Marques MD Scribe Attestation: Arturo Brunner, scribed for Javon Marques MD on 01/26/19 at 1635. Scribe Documentation Reviewed: Yes Provider Attestation: The documentation as recorded by the Arturo fournier accurately reflects the service I personally performed and the decisions made by , Javon Marques MD Status of Scribe Document: Viewed
[2019-01-26 13:45] LABS: ALT 40 U/L (7-52); AST 63 U/L (13-39); Albumin 3.9 g/dL (3.2-5.2); Albumin/Globulin Ratio 1.4 (1-3); Alkaline Phosphatase 63 U/L (34-104); Anion Gap 13 mmol/L (2-11); BUN/Creatinine Ratio 7.6 (8-20); Blood Urea Nitrogen 8 mg/dL (6-24); CO2 Carbon Dioxide 21 mmol/L (22-32); Calcium 8.8 mg/dL (8.6-10.3); Chloride 103 mmol/L (101-111); EGFR African American 101.8 (>60); EGFR Non-African American 84.1 (>60); Globulin 2.7 g/dL (2-4); Glucose 85 mg/dL (70-100); Sodium 137 mmol/L (135-145); Total Protein 6.6 g/dL (6.4-8.9)
[2019-01-26] MEDS ORDERED: Potassium EFFERVESCENT TAB* 25 MEQ TAB.EFF PO ONE (14:10)
[2019-01-26 14:17] LABS: Acetaminophen < 15 mcg/mL; Alcohol 117 mg/dL (<10); Salicylate < 2.50 mg/dL (<30)
[2019-01-26 16:45] VITALS: BP 123/70
== END 2019-01-26 16:44 | disposition home or self-care (01) ==
LOC: ED 12:54
DX: F10.929 Alcohol use, unspecified with intoxication, unspecified (principal); E03.9 Hypothyroidism, unspecified; I10 Essential (primary) hypertension; F17.210 Nicotine dependence, cigarettes, uncomplicated
CPT/HCPCS: 36415; 80053; 80320; 80329; 85025; 93005; 99282; G0480

== ENCOUNTER 2019-01-26 20:41 | Emergency (ER) | payer OTHER ==
[2019-01-26] MEDS ORDERED: NS 0.9% 1000 ML** 2,000 ML IV ONE (21:04)
[2019-01-26] MEDS ORDERED: Diazepam INJ (NF) 5 MG/ML 10 ML VIAL (50 MG TOTAL) IV ONE (21:05)
[2019-01-26] MEDS ORDERED: Diazepam INJ CARPUJECT* 5 MG/ML IV ONE (21:05)
[2019-01-26] MEDS ORDERED: Charcoal ACTIVATED* 25 GM/120 ML BTL PO ONE (21:05)
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
[2019-01-26 21:24] LABS: ABS Basophils 0.1 10^3/ul (0-0.2); ABS Eosinophils 0.1 10^3/ul (0-0.6); ABS Lymphocytes 2.6 10^3/ul (1.0-4.8); ABS Neutrophils 4.9 10^3/ul (1.5-7.7); Eosinophil % 1.6 %; Hematocrit 41 % (42-52); Hemoglobin 13.9 g/dL (14.0-18.0); Lymphocyte % 30.3 %; Mean Corpuscular HGB Conc 34 g/dL (31-36); Mean Corpuscular Hemoglobin 30 pg (27-31); Mean Corpuscular Volume 88 fL (80-94); Mean Platelet Volume 7.9 fL (7.4-10.4); Nucleated Red Blood Cells % 0.1; Platelet Count 211 10^3/uL (150-450); Red Blood Count 4.69 10^6 /uL (4.18-5.48); Red Cell Distribution Width 17 % (10-15); White Blood Count 8.7 10^3/uL (3.5-10.8)
[2019-01-26 21:39] LABS: ALT 45 U/L (7-52); AST 68 U/L (13-39); Albumin 4.2 g/dL (3.2-5.2); Albumin/Globulin Ratio 1.4 (1-3); Alkaline Phosphatase 66 U/L (34-104); Anion Gap 14 mmol/L (2-11); BUN/Creatinine Ratio 7.4 (8-20); Blood Urea Nitrogen 9 mg/dL (6-24); CO2 Carbon Dioxide 22 mmol/L (22-32); Calcium 9.2 mg/dL (8.6-10.3); Chloride 102 mmol/L (101-111); Creatine Kinase 1512 U/L (10-223); EGFR African American 86.4 (>60); EGFR Non-African American 71.4 (>60); Glucose 75 mg/dL (70-100); Sodium 138 mmol/L (135-145); Total Protein 7.2 g/dL (6.4-8.9)
[2019-01-26 22:09] LABS: Magnesium 2.1 mg/dL (1.9-2.7)
[2019-01-26 22:11] LABS: Acetaminophen < 15 mcg/mL; Alcohol 109 mg/dL (<10); Salicylate < 2.50 mg/dL (<30)
[2019-01-26] MEDS ORDERED: Potassium Chlor TAB* 20 MEQ TAB.ER PO ONE (22:11)
[2019-01-26 22:12] LABS: Urine Appearance Clear; Urine Bilirubin Negative (Negative); Urine Blood Negative (Negative); Urine Color Yellow; Urine Glucose Negative (Negative); Urine Ketones Negative (Negative); Urine Nitrite Negative (Negative); Urine Protein Negative (Negative); Urine Specific Gravity 1.004 (1.010-1.030); Urine Urobilinogen Negative (Negative)
[2019-01-26 22:27] LABS: TSH (Thyroid Stimulating Horm) 5.44 mcIU/mL (0.34-5.60)
[2019-01-26 22:35] LABS: Urine Benzodiazepine Screen None Detected (None Detect); Urine Opiates Screen None Detected (None Detect)
[2019-01-26] MEDS ORDERED: KCL 10 MEQ/50 ML IVPREMIX* 10 MEQ/50 ML BAG IV ONE (22:44)
[2019-01-27 02:55] VITALS: BP 150/92
== END 2019-01-27 02:52 | disposition home or self-care (01) ==
LOC: ED 20:41
DX: T48.5X2A Poisoning by other anti-common-cold drugs, intentional self-harm, initial encounter (principal); R50.9 Fever, unspecified; R00.0 Tachycardia, unspecified; Y92.9 Unspecified place or not applicable; I10 Essential (primary) hypertension; F17.210 Nicotine dependence, cigarettes, uncomplicated
CPT/HCPCS: 36415; 80053; 80307; 80320; 80329; 81003; 82550; 83735; 84443; 85025; 93005; 96361; 96365; 96366; 96375; 99285; A9270-GY; G0480; J3360; J3480

== ENCOUNTER 2019-01-27 12:30 | Emergency (ER) | payer OTHER ==
--- NOTE | 2019-01-27 14:06 | ED ---
Substance Abuse/Use - HPI Summary HPI Summary: This patient is a 28 year old M with a hx of overdose BIBA to ED via EMS with a chief complaint of intoxication since this morning. Patient was found outside [employer], intoxicated. Patient was unable to stand up and walk without assistance. He reports drinking 9 beers and denies any other drug use. Patient denies fever, vomiting or headache. Denies taking any drugs. Of note >3 visits in 24 hours for similar. - History Of Current Complaint Chief Complaint: EDSubstanceAbuse Stated Complaint: ETOH 2209 PER EMS Time Seen by Provider: 01/27/19 12:45 Hx Obtained From: Patient, EMS Onset/Duration of Drug/ETOH Abuse: Hours - This morning Ingestion History: Type/Name Of Drug - etoh, Amount Ingested - 9 beers Overdose Characteristics: Oral Timing Of Abuse: Binge Use Aggravating Factor(s): Nothing Alleviating Factor(s): Nothing Associated Signs And Symptoms: Negative - Fever, vomiting - Allergies/Home Medications Allergies/Adverse Reactions: Allergies Allergy/AdvReac Type Severity Reaction Status Date / Time No Known Allergies Allergy Verified 01/14/19 14:49 PMH/Surg Hx/FS Hx/Imm Hx Endocrine/Hematology History: Reports: Hx Thyroid Disease - Hypothyroidism Denies: Hx Anticoagulant Therapy, Hx Blood Disorders, Hx Blood Transfusions, Hx Bone Marrow Disease, Hx Diabetes, Hx Systemic Lupus Erythematosus, Hx Sickle Cell Disease, Hx Anemia, Hx Unexplained Bleeding, Other Endocrine/Hematological Disorders Cardiovascular History: Reports: Hx Hypertension Denies: Hx Aneurysm, Hx Angina, Hx Angioplasty, Hx Auto Implanted Cardiovert Defib, Hx Cardiac Arrest, Hx Cardiomegaly, Hx Congenital Heart Disease, Hx Congestive Heart Failure, Hx Coronary Artery Disease, Hx Deep Vein Thrombosis, Hx Embolism, Hx Hypercholesterolemia, Hx Hypotension, Hx Pacemaker/ICD, Hx Peripheral Vascular Disease, Hx Rheumatic Fever, Hx Syncope, Hx Valvular Heart Disease, Other Cardiovascular Problems/Disorders Respiratory History: Reports: Hx Pneumonia, Hx Seasonal Allergies Denies: Hx Asthma, Hx Chronic Bronchitis, Hx Chronic Obstructive Pulmonary Disease (COPD), Hx Cystic Fibrosis, Hx Lung Cancer, Hx Pleural Effusion, Hx Pulmonary Edema, Hx Pulmonary Embolism, Hx Sleep Apnea, Other Respiratory Problems/Disorders GI History: Reports: Hx Ulcer Denies: Hx Cirrhosis, Hx Crohn's Disease, Hx Diverticulosis, Hx Gall Bladder Disease, Hx Gastroesophageal Reflux Disease, Hx Gastrointestinal Bleed, Hx Hiatal Hernia, Hx Irritable Bowel, Hx Jaundice, Hx Obstructive Bowel, Hx Ileostomy, Hx Pyloric Stenosis, Other GI Disorders History: Denies: Hx Acute Renal Failure, Hx Benign Prostatic Hyperplasia, Hx Chronic Renal Failure, Hx Dialysis, Hx Kidney Infection, Hx Kidney Stones, Hx Renal Disease, Other Problems/Disorders Musculoskeletal History: Denies: Hx Arthritis, Hx Back Problems, Hx Bursitis, Hx Congenital Bone Abnormalities, Hx Fibromyalgia, Hx Gout, Hx Orthopedic Injury, Hx Osteoporosis, Hx Scoliosis, Hx Tendonitis, Other Musculoskeletal History Sensory History: Denies: Hx Cataracts, Hx Contacts or Glasses, Hx Eye Injury, Hx Eye Prosthesis, Hx Glaucoma, Hx Legally Blind, Hx Macular Degeneration, Hx Vision Problem, Hx Deafness, Hx Hearing Aid, Other Sensory Impairments Opthamlomology History: Denies: Hx Cataracts, Hx Contacts or Glasses, Hx Eye Injury, Hx Eye Prosthesis, Hx Glaucoma, Hx Legally Blind, Hx Macular Degeneration, Hx Vision Problem, Other Sensory Impairments Neurological History: Reports: Hx Headaches, Hx Seizures Denies: Hx Dementia, Hx Developmental Delay, Hx Migraine, Hx Nerve Disease, Hx Spinal Cord Injury, Hx Transient Ischemic Attacks (TIA), Other Neuro Impairments/Disorders Psychiatric History: Reports: Hx Anxiety, Hx Depression, Hx Post Traumatic Stress Disorder, Hx Inpatient Treatment, Hx Community Mental Health Tx, Hx Bipolar Disorder, Hx of Violent Episodes Against Others, Hx Substance Abuse, Other Psychiatric Issues/Disorders Denies: Hx Attention Deficit Hyperactivity Disorder, Hx Eating Disorder, Hx Panic Disorder, Hx Schizophrenia, Hx Suicide Attempt - Cancer History Cancer Type, Location and Year: None reported - Surgical History Surgery Procedure, Year, and Place: none Hx Anesthesia Reactions: No - Immunization History Date of Tetanus Vaccine: Unknown Date of Influenza Vaccine: None Infectious Disease History: No Infectious Disease History: Reports: Hx Hepatitis - Hep C Denies: Hx Clostridium Difficile, Hx Human Immunodeficiency Virus (HIV), Hx of Known/Suspected MRSA, Hx Shingles, Hx Tuberculosis, Hx Known/Suspected VRE, Hx Known/Suspected VRSA, History Other Infectious Disease, Traveled Outside the [place] in Last 30 Days - Family History Known Family History: Positive: Other - cancer Negative: Renal Disease Family History: father - ETOH - Social History Alcohol Use: Daily Alcohol Amount: beers Hx Substance Use: Yes Substance Use Type: Reports: Cocaine, Prescribed, Other Substance Use Comment - Amount & Last Used: Multiple Coricidin overdose Hx Tobacco Use: Yes Smoking Status (MU): Heavy Every Day Tobacco Smoker Type: Cigarettes Have You Smoked in the Last Year: Yes Review of Systems Negative: Fever Negative: Vomiting All Other Systems Reviewed And Are Negative: Yes Physical Exam - Summary Physical Exam Summary: Constitutional: Intoxicated (-) Distressed Skin: Excoriations to the low back and buttocks HENT: Normocephalic; Atraumatic Eyes: Dilated pupils Neck: Musculoskeletal ROM normal neck. (-) JVD, (-) Stridor, (-) Nuchal rigidity Cardio: Rhythm regular, mild tachycardia, Heart sounds normal; Intact distal pulses; Radial pulses are 2+ and symmetric. (-) Murmur Pulmonary/Chest wall: Effort normal. (-) Respiratory distress, (-) Wheezes, (-) Rales Abd: Soft, (-) tenderness, (-) Distension, (-) Guarding, (-) Rebound Musculoskeletal: (-) Edema Lymph: (-) Cervical adenopathy Neuro: Alert, Oriented x3 Psych: no SI HI Triage Information Reviewed: Yes Vital Signs On Initial Exam: Initial Vitals Temp Pulse Resp BP Pulse Ox 98.9 F 104 22 106/52 95 01/27/19 12:40 01/27/19 12:40 01/27/19 12:40 01/27/19 12:40 01/27/19 12:40 Vital Signs Reviewed: Yes Diagnostics - Vital Signs Vital Signs Temp Pulse Resp BP Pulse Ox 01/27/19 12:43 102 106/52 94 01/27/19 12:41 99 94 01/27/19 12:40 98.9 F 104 22 106/52 95 - Laboratory Lab Statement: Any lab studies that have been ordered have been reviewed, and results considered in the medical decision making process. Re-Evaluation - Re-Evaluation First Eval Re-Evaluation Time: 15:30 Comment: Patient can ambulate through the department with a steady gait. Ate a sandwich, AAOx3 Course/Dx - Course Course Of Treatment: 28-year-old male with a history of substance use disorder and alcohol use presents with alcohol intoxication. Pt presenting with alcohol intoxication. The patient was examined for signs of occult trauma, none of which were found. Will await sobriety - Diagnoses Provider Diagnoses: Alcohol intoxication Discharge - Sign-Out/Discharge Documenting (check all that apply): Patient Departure - Discharge Patient Received Moderate/Deep Sedation with Procedure: No - Discharge Plan Condition: Stable Disposition: HOME Patient Education Materials: Abuse of Alcohol (ED), Polysubstance Abuse (ED), Alcohol Use Disorder (ED) Referrals: [facility] [Outside] Additional Instructions: You were seen in the emergency department for alcohol intoxication, please do not drink and drive. If any studies were not completed at the time of discharge you will be called with the relevant results. Please follow up with your primary care doctor in next 2-3 days and return to emergency department for worsening or concerning symptoms. - Billing Disposition and Condition Condition: STABLE Disposition: Home - Attestation Statements Document Initiated by Scribe: Yes Documenting Scribe: Arturo Worthington Provider For Whom Mario is Documenting (Include Credential): Javon Marques MD Scribe Attestation: Arturo Brunner, scribed for Javon Marques MD on 01/27/19 at 1551. Scribe Documentation Reviewed: Yes Provider Attestation: The documentation as recorded by the Arturo fournier accurately reflects the service I personally performed and the decisions made by me, Javon Marques MD Status of Scribe Document: Viewed
[2019-01-27 15:26] VITALS: BP 111/56
== END 2019-01-27 16:02 | disposition home or self-care (01) ==
LOC: ED 12:30
DX: F10.129 Alcohol abuse with intoxication, unspecified (principal); I10 Essential (primary) hypertension; F31.9 Bipolar disorder, unspecified; F17.210 Nicotine dependence, cigarettes, uncomplicated
CPT/HCPCS: 99213; 99283; G0463

== ENCOUNTER 2019-01-27 21:26 | Emergency (ER) | payer OTHER ==
--- NOTE | 2019-01-27 23:01 | ED ---
Substance Abuse/Use - HPI Summary HPI Summary: Patient is a 28 y/o M presenting to ED via EMS for substance abuse. Per triage, "Brought in 2208. [place] police report [place] side [place] [address] would[place]'t open eyes & appeared under the influence" In the room, patient states that he had taken coricidin today. Patient does not provide further information. On triage, pain is rated 0/10, nothing is noted to aggravate/alleviate Sx. Home medications and allergies are reviewed. - History Of Current Complaint Chief Complaint: EDSubstanceAbuse Stated Complaint: 2209/ETOH PER EMS Time Seen by Provider: 01/27/19 22:34 Hx Obtained From: Patient Onset/Duration of Drug/ETOH Abuse: Hours Ingestion History: Type/Name Of Drug - coricidin Overdose Characteristics: Oral Severity Initially: Mild Aggravating Factor(s): Nothing Alleviating Factor(s): Nothing - Allergies/Home Medications Allergies/Adverse Reactions: Allergies Allergy/AdvReac Type Severity Reaction Status Date / Time No Known Allergies Allergy Verified 01/28/19 18:43 PMH/Surg Hx/FS Hx/Imm Hx Endocrine/Hematology History: Reports: Hx Thyroid Disease - Hypothyroidism Denies: Hx Anticoagulant Therapy, Hx Blood Disorders, Hx Blood Transfusions, Hx Bone Marrow Disease, Hx Diabetes, Hx Systemic Lupus Erythematosus, Hx Sickle Cell Disease, Hx Anemia, Hx Unexplained Bleeding, Other Endocrine/Hematological Disorders Cardiovascular History: Reports: Hx Hypertension Denies: Hx Aneurysm, Hx Angina, Hx Angioplasty, Hx Auto Implanted Cardiovert Defib, Hx Cardiac Arrest, Hx Cardiomegaly, Hx Congenital Heart Disease, Hx Congestive Heart Failure, Hx Coronary Artery Disease, Hx Deep Vein Thrombosis, Hx Embolism, Hx Hypercholesterolemia, Hx Hypotension, Hx Pacemaker/ICD, Hx Peripheral Vascular Disease, Hx Rheumatic Fever, Hx Syncope, Hx Valvular Heart Disease, Other Cardiovascular Problems/Disorders Respiratory History: Reports: Hx Pneumonia, Hx Seasonal Allergies Denies: Hx Asthma, Hx Chronic Bronchitis, Hx Chronic Obstructive Pulmonary Disease (COPD), Hx Cystic Fibrosis, Hx Lung Cancer, Hx Pleural Effusion, Hx Pulmonary Edema, Hx Pulmonary Embolism, Hx Sleep Apnea, Other Respiratory Problems/Disorders GI History: Reports: Hx Ulcer Denies: Hx Cirrhosis, Hx Crohn's Disease, Hx Diverticulosis, Hx Gall Bladder Disease, Hx Gastroesophageal Reflux Disease, Hx Gastrointestinal Bleed, Hx Hiatal Hernia, Hx Irritable Bowel, Hx Jaundice, Hx Obstructive Bowel, Hx Ileostomy, Hx Pyloric Stenosis, Other GI Disorders History: Denies: Hx Acute Renal Failure, Hx Benign Prostatic Hyperplasia, Hx Chronic Renal Failure, Hx Dialysis, Hx Kidney Infection, Hx Kidney Stones, Hx Renal Disease, Other Problems/Disorders Musculoskeletal History: Denies: Hx Arthritis, Hx Back Problems, Hx Bursitis, Hx Congenital Bone Abnormalities, Hx Fibromyalgia, Hx Gout, Hx Orthopedic Injury, Hx Osteoporosis, Hx Scoliosis, Hx Tendonitis, Other Musculoskeletal History Sensory History: Denies: Hx Cataracts, Hx Contacts or Glasses, Hx Eye Injury, Hx Eye Prosthesis, Hx Glaucoma, Hx Legally Blind, Hx Macular Degeneration, Hx Vision Problem, Hx Deafness, Hx Hearing Aid, Other Sensory Impairments Opthamlomology History: Denies: Hx Cataracts, Hx Contacts or Glasses, Hx Eye Injury, Hx Eye Prosthesis, Hx Glaucoma, Hx Legally Blind, Hx Macular Degeneration, Hx Vision Problem, Other Sensory Impairments Neurological History: Reports: Hx Headaches, Hx Seizures Denies: Hx Dementia, Hx Developmental Delay, Hx Migraine, Hx Nerve Disease, Hx Spinal Cord Injury, Hx Transient Ischemic Attacks (TIA), Other Neuro Impairments/Disorders Psychiatric History: Reports: Hx Anxiety, Hx Depression, Hx Post Traumatic Stress Disorder, Hx Inpatient Treatment, Hx Community Mental Health Tx, Hx Bipolar Disorder, Hx of Violent Episodes Against Others, Hx Substance Abuse, Other Psychiatric Issues/Disorders Denies: Hx Attention Deficit Hyperactivity Disorder, Hx Eating Disorder, Hx Panic Disorder, Hx Schizophrenia, Hx Suicide Attempt - Cancer History Cancer Type, Location and Year: None reported - Surgical History Surgery Procedure, Year, and Place: none Hx Anesthesia Reactions: No - Immunization History Date of Tetanus Vaccine: Unknown Date of Influenza Vaccine: None Infectious Disease History: No Infectious Disease History: Reports: Hx Hepatitis - Hep C Denies: Hx Clostridium Difficile, Hx Human Immunodeficiency Virus (HIV), Hx of Known/Suspected MRSA, Hx Shingles, Hx Tuberculosis, Hx Known/Suspected VRE, Hx Known/Suspected VRSA, History Other Infectious Disease, Traveled Outside the [place] in Last 30 Days - Family History Known Family History: Positive: Other - cancer Negative: Renal Disease Family History: father - ETOH - Social History Alcohol Use: Daily Alcohol Amount: beers Hx Substance Use: Yes Substance Use Type: Reports: Cocaine, Prescribed, Other Substance Use Comment - Amount & Last Used: Multiple Coricidin overdose Hx Tobacco Use: Yes Smoking Status (MU): Heavy Every Day Tobacco Smoker Type: Cigarettes Have You Smoked in the Last Year: Yes Review of Systems Negative: Fever - on vitals, temp is 97.6 F Psychological: Other - positive - substance abuse, found AMS All Other Systems Reviewed And Are Negative: Yes Physical Exam - Summary Physical Exam Summary: VITAL SIGNS: Reviewed. GENERAL: Patient is a well-developed and nourished male who is lying comfortable in the stretcher. Patient is not in any acute respiratory distress. He is easily arousable. HEAD AND FACE: No signs of trauma. No ecchymosis, hematomas or skull depressions. No sinus tenderness. EYES: PERRLA, EOMI x 2, No injected conjunctiva, no nystagmus. EARS: Hearing grossly intact. Ear canals and tympanic membranes are within normal limits. MOUTH: Oropharynx within normal limits. NECK: Supple, trachea is midline, no adenopathy, no JVD, no carotid bruit, no c- spine tenderness, neck with full ROM CHEST: Symmetric, no tenderness at palpation LUNGS: Clear to auscultation bilaterally. No wheezing or crackles. CVS: Regular rate and rhythm, S1 and S2 present, no murmurs or gallops appreciated. ABDOMEN: Soft, non-tender. No signs of distention. No rebound no guarding, and no masses palpated. Bowel sounds are normal. EXTREMITIES: FROM in all major joints, no edema, no cyanosis or clubbing. NEURO: Alert and oriented x 3. No acute neurological deficits. Speech is normal and follows commands. SKIN: Dry and warm Triage Information Reviewed: Yes Vital Signs On Initial Exam: Initial Vitals Temp Pulse Resp BP Pulse Ox 97.6 F 107 20 116/52 95 01/27/19 21:29 01/27/19 21:29 01/27/19 21:29 01/27/19 21:29 01/27/19 21:29 Vital Signs Reviewed: Yes Diagnostics - Vital Signs Vital Signs Temp Pulse Resp BP Pulse Ox 01/27/19 21:29 97.6 F 107 20 116/52 95 - Laboratory Lab Statement: Any lab studies that have been ordered have been reviewed, and results considered in the medical decision making process. Re-Evaluation - Re-Evaluation First Eval Re-Evaluation Time: 06:48 Change: Improved Comment: Patient is awake, alert and oriented x 3 and ambulating around the ED with a steady gait. He is discharged to home. Course/Dx - Course Course Of Treatment: Patient is a 28 y/o M presenting to ED via EMS for substance abuse. Per triage, "Brought in 2208. [place] police report finding pt [place] the side of the road by [employer] [place] [address] [place] wouldnt't open eyes & appeared under the influence" In the room, patient states that he had taken coricidin today. Patient does not provide further information. Patient is easily arousable. 0648 - Patient is awake, alert and oriented x 3 and ambulating around the ED with a steady gait. He is discharged to home. - Diagnoses Provider Diagnoses: Substance abuse Discharge - Sign-Out/Discharge Documenting (check all that apply): Patient Departure - discharge Patient Received Moderate/Deep Sedation with Procedure: No - Discharge Plan Condition: Stable Disposition: HOME Patient Education Materials: Polysubstance Abuse (ED) Referrals: [facility] [Outside] - 3 Days Additional Instructions: PLEASE RETURN TO THE ED IMMEDIATELY FOR WORSENING OR CONCERNING SYMPTOMS. FOLLOW UP WITH PRIMARY CARE PHYSICIAN WITHIN 3 DAYS. - Billing Disposition and Condition Condition: STABLE Disposition: Home - Attestation Statements Document Initiated by Scribe: Yes Documenting Scribe: SHERWIN HALL Provider For Whom Mario is Documenting (Include Credential): SCARLETT ESTRADA MD Scriblissy Attestation: SHERWIN Brunner, scribed for SCARLETT ESTRADA MD on 01/29/19 at 0626. Scribe Documentation Reviewed: Yes Provider Attestation: The documentation as recorded by the HSERWIN fournier accurately reflects the service I personally performed and the decisions made by me, SCARLETT ESTRADA MD Status of Scribe Document: Viewed
[2019-01-28 07:01] VITALS: BP 158/101
== END 2019-01-28 07:00 | disposition home or self-care (01) ==
LOC: ED 21:26
DX: F55.8 Abuse of other non-psychoactive substances (principal); I10 Essential (primary) hypertension; F17.210 Nicotine dependence, cigarettes, uncomplicated
CPT/HCPCS: 99282

== ENCOUNTER 2019-01-28 18:30 | Emergency (ER) | payer OTHER ==
[2019-01-28] MEDS ORDERED: NS 0.9% 1000 ML** 1,000 ML IV ONE ×2 (20:18→22:55)
--- NOTE | 2019-01-28 20:21 | ED ---
Substance Abuse/Use - HPI Summary HPI Summary: This patient is a 28 year old M w hx of amphetamine abuse, EtOH intoxication presenting to [facility] with a chief complaint of overdose of approx. 4 bottles of Delsum and EtOH. At approx. [id number]. Patient reports sharp stabbing abdominal pain since about 18:15 in his lower abdomen as well as some cramping. Pt reports the pain feels similar to a previous incident approx. 1 year ago, when he had to have a colonoscopy at [facility] and he was told there was an abnormality 2/2 to drinking so much cough syrup but did not follow up. Denies vomiting or diarrhea. Per triage, Pt denies SI/HI. - History Of Current Complaint Chief Complaint: EDSubstanceAbuse Stated Complaint: OVERDOSE PER EMS Time Seen by Provider: 01/28/19 19:41 Hx Obtained From: Patient Onset/Duration of Drug/ETOH Abuse: Hours Ingestion History: Type/Name Of Drug - Delsum, Alcohol, Amount Ingested - 4 bottles Overdose Characteristics: Oral Timing Of Abuse: Binge Use Severity Initially: Mild Severity Currently: Mild Aggravating Factor(s): Nothing Alleviating Factor(s): Nothing Associated Signs And Symptoms: Other: - Abdominal Pain - Allergies/Home Medications Allergies/Adverse Reactions: Allergies Allergy/AdvReac Type Severity Reaction Status Date / Time No Known Allergies Allergy Verified 01/28/19 18:43 PMH/Surg Hx/FS Hx/Imm Hx Endocrine/Hematology History: Reports: Hx Thyroid Disease - Hypothyroidism Denies: Hx Anticoagulant Therapy, Hx Blood Disorders, Hx Blood Transfusions, Hx Bone Marrow Disease, Hx Diabetes, Hx Systemic Lupus Erythematosus, Hx Sickle Cell Disease, Hx Anemia, Hx Unexplained Bleeding, Other Endocrine/Hematological Disorders Cardiovascular History: Reports: Hx Hypertension Denies: Hx Aneurysm, Hx Angina, Hx Angioplasty, Hx Auto Implanted Cardiovert Defib, Hx Cardiac Arrest, Hx Cardiomegaly, Hx Congenital Heart Disease, Hx Congestive Heart Failure, Hx Coronary Artery Disease, Hx Deep Vein Thrombosis, Hx Embolism, Hx Hypercholesterolemia, Hx Hypotension, Hx Pacemaker/ICD, Hx Peripheral Vascular Disease, Hx Rheumatic Fever, Hx Syncope, Hx Valvular Heart Disease, Other Cardiovascular Problems/Disorders Respiratory History: Reports: Hx Pneumonia, Hx Seasonal Allergies Denies: Hx Asthma, Hx Chronic Bronchitis, Hx Chronic Obstructive Pulmonary Disease (COPD), Hx Cystic Fibrosis, Hx Lung Cancer, Hx Pleural Effusion, Hx Pulmonary Edema, Hx Pulmonary Embolism, Hx Sleep Apnea, Other Respiratory Problems/Disorders GI History: Reports: Hx Ulcer Denies: Hx Cirrhosis, Hx Crohn's Disease, Hx Diverticulosis, Hx Gall Bladder Disease, Hx Gastroesophageal Reflux Disease, Hx Gastrointestinal Bleed, Hx Hiatal Hernia, Hx Irritable Bowel, Hx Jaundice, Hx Obstructive Bowel, Hx Ileostomy, Hx Pyloric Stenosis, Other GI Disorders History: Denies: Hx Acute Renal Failure, Hx Benign Prostatic Hyperplasia, Hx Chronic Renal Failure, Hx Dialysis, Hx Kidney Infection, Hx Kidney Stones, Hx Renal Disease, Other Problems/Disorders Musculoskeletal History: Denies: Hx Arthritis, Hx Back Problems, Hx Bursitis, Hx Congenital Bone Abnormalities, Hx Fibromyalgia, Hx Gout, Hx Orthopedic Injury, Hx Osteoporosis, Hx Scoliosis, Hx Tendonitis, Other Musculoskeletal History Sensory History: Denies: Hx Cataracts, Hx Contacts or Glasses, Hx Eye Injury, Hx Eye Prosthesis, Hx Glaucoma, Hx Legally Blind, Hx Macular Degeneration, Hx Vision Problem, Hx Deafness, Hx Hearing Aid, Other Sensory Impairments Opthamlomology History: Denies: Hx Cataracts, Hx Contacts or Glasses, Hx Eye Injury, Hx Eye Prosthesis, Hx Glaucoma, Hx Legally Blind, Hx Macular Degeneration, Hx Vision Problem, Other Sensory Impairments Neurological History: Reports: Hx Headaches, Hx Seizures Denies: Hx Dementia, Hx Developmental Delay, Hx Migraine, Hx Nerve Disease, Hx Spinal Cord Injury, Hx Transient Ischemic Attacks (TIA), Other Neuro Impairments/Disorders Psychiatric History: Reports: Hx Anxiety, Hx Depression, Hx Post Traumatic Stress Disorder, Hx Inpatient Treatment, Hx Community Mental Health Tx, Hx Bipolar Disorder, Hx of Violent Episodes Against Others, Hx Substance Abuse, Other Psychiatric Issues/Disorders Denies: Hx Attention Deficit Hyperactivity Disorder, Hx Eating Disorder, Hx Panic Disorder, Hx Schizophrenia, Hx Suicide Attempt - Cancer History Cancer Type, Location and Year: None reported - Surgical History Surgery Procedure, Year, and Place: none Hx Anesthesia Reactions: No - Immunization History Date of Tetanus Vaccine: Unknown Date of Influenza Vaccine: None Infectious Disease History: No Infectious Disease History: Reports: Hx Hepatitis - Hep C Denies: Hx Clostridium Difficile, Hx Human Immunodeficiency Virus (HIV), Hx of Known/Suspected MRSA, Hx Shingles, Hx Tuberculosis, Hx Known/Suspected VRE, Hx Known/Suspected VRSA, History Other Infectious Disease, Traveled Outside the [place] in Last 30 Days - Family History Known Family History: Positive: Other - cancer Negative: Renal Disease Family History: father - ETOH - Social History Alcohol Use: Daily Alcohol Amount: beers Hx Substance Use: Yes Substance Use Type: Reports: Cocaine, Prescribed, Other Substance Use Comment - Amount & Last Used: Multiple Coricidin overdose Hx Tobacco Use: Yes Smoking Status (MU): Heavy Every Day Tobacco Smoker Type: Cigarettes Have You Smoked in the Last Year: Yes Review of Systems Negative: Fever Positive: Abdominal Pain All Other Systems Reviewed And Are Negative: Yes Physical Exam - Summary Physical Exam Summary: Constitutional: Well-developed, Well-nourished, Alert. (-) Distressed Skin: Warm, Dry HENT: Normocephalic; Atraumatic Eyes: Conjunctiva normal Neck: Musculoskeletal ROM normal neck. (-) JVD, (-) Stridor, (-) Nuchal rigidity Cardio: Rhythm regular, rate normal, Heart sounds normal; Intact distal pulses; Radial pulses are 2+ and symmetric. (-) Murmur Pulmonary/Chest wall: Effort normal. (-) Respiratory distress, (-) Wheezes, (-) Rales Abd: Soft, Mild lower abdominal tenderness, (-) Distension, (-) Guarding, (-) Rebound Musculoskeletal: (-) Edema Lymph: (-) Cervical adenopathy Neuro: Alert, Oriented x3 Psych: Mood and affect Normal Triage Information Reviewed: Yes Vital Signs On Initial Exam: Initial Vitals Temp Pulse Resp BP Pulse Ox 98.3 F 101 16 119/87 94 01/28/19 18:33 01/28/19 18:33 01/28/19 18:33 01/28/19 18:33 01/28/19 18:33 Vital Signs Reviewed: Yes Diagnostics - Vital Signs Vital Signs Temp Pulse Resp BP Pulse Ox 01/28/19 18:33 98.3 F 101 16 119/87 94 - Laboratory Result Diagrams: 01/28/19 20:33 01/28/19 20:33 Lab Statement: Any lab studies that have been ordered have been reviewed, and results considered in the medical decision making process. Re-Evaluation - Re-Evaluation First Eval Re-Evaluation Time: 21:50 Change: Improved Comment: pt feels better and states abdominal pain has decreased. Got IVF, will repeat LA. Second Eval Change: Improved - patient resting, LA 2.9, will give one more liter IVF and recheck. Course/Dx - Course Course Of Treatment: 28 y/o male with alcohol abuse and substance use disorder presents with alcohol intoxication and cramping abdominal pain. Patient states that he thinks is secondary to his dextromethorphan use, we'll check labs give fluids and reevaluate. Low suspicion for acute abdominal process, abdomen is soft. No R upper quadrant tenderness to suggest cholecystitis, no flank tenderness suggest renal stones, denies dysuria. - Diagnoses Provider Diagnoses: Alcohol intoxication, Abdominal pain in male Discharge - Sign-Out/Discharge Documenting (check all that apply): Sign-Out Patient - signed out to Dr. Villarreal pending repeat LA after IVF. Signing out patient TO: Twan Villarreal - pending labs Patient Received Moderate/Deep Sedation with Procedure: No - Discharge Plan Patient Education Materials: Acute Abdominal Pain (ED), Alcohol Intoxication ( ED) Referrals: No Primary Care Phys,NOPCP [Primary Care Provider] - Additional Instructions: You were seen in the emergency department for abdominal pain and alcohol intoxication. Your labs did not show a cause for your pain. Please return for continued pain, vomiting, fevers, or if you are concerned. - Attestation Statements Document Initiated by Scribe: Yes Documenting Scribe: Urvashi Newsome Provider For Whom Shelleyibe is Documenting (Include Credential): Dr. Javon Marques Scribe Attestation: I, Urvashi Newsome, scribed for Dr. Javon Marques on 01/28/19 at 2253. Scribe Documentation Reviewed: Yes Provider Attestation: The documentation as recorded by the shelleyibe, Urvashi Newsome accurately reflects the service I personally performed and the decisions made by me, Dr. Javon Marques Status of Scribe Document: Viewed
[2019-01-28 20:38] LABS: ABS Basophils 0.1 10^3/ul (0-0.2); ABS Eosinophils 0.1 10^3/ul (0-0.6); ABS Lymphocytes 2.9 10^3/ul (1.0-4.8); ABS Monocytes 0.6 10^3/ul (0-0.8); ABS Neutrophils 2.6 10^3/ul (1.5-7.7); Eosinophil % 2.3 %; Hematocrit 36 % (42-52); Hemoglobin 12.1 g/dL (14.0-18.0); Lymphocyte % 45.5 %; Mean Corpuscular HGB Conc 34 g/dL (31-36); Mean Corpuscular Hemoglobin 30 pg (27-31); Mean Corpuscular Volume 88 fL (80-94); Mean Platelet Volume 7.8 fL (7.4-10.4); Nucleated Red Blood Cells % 0.1; Platelet Count 176 10^3/uL (150-450); Red Blood Count 4.08 10^6 /uL (4.18-5.48); Red Cell Distribution Width 17 % (10-15); White Blood Count 6.3 10^3/uL (3.5-10.8)
[2019-01-28 20:59] LABS: ALT 32 U/L (7-52); AST 42 U/L (13-39); Albumin 3.6 g/dL (3.2-5.2); Albumin/Globulin Ratio 1.5 (1-3); Alkaline Phosphatase 49 U/L (34-104); Anion Gap 10 mmol/L (2-11); BUN/Creatinine Ratio 12.6 (8-20); Blood Urea Nitrogen 11 mg/dL (6-24); CO2 Carbon Dioxide 23 mmol/L (22-32); Calcium 8.5 mg/dL (8.6-10.3); Chloride 107 mmol/L (101-111); EGFR African American 126.4 (>60); EGFR Non-African American 104.5 (>60); Globulin 2.4 g/dL (2-4); Glucose 112 mg/dL (70-100); Potassium 3.1 mmol/L (3.5-5.0); Sodium 140 mmol/L (135-145)
[2019-01-28 21:39] LABS: Acetaminophen < 15 mcg/mL
--- NOTE | 2019-01-28 23:04 | ED ---
Progress - Progress Note Progress Note: This pt is a sign out to Dr. Villarreal from Dr. Jacobo at shift change 2300 pending the pt finishing his second liter of fluids and a repeated latic test. Pt stated that he feels better and will be discharged if his latic acid levels decline. Re-Evaluation - Re-Evaluation First Eval Re-Evaluation Time: 21:50 Change: Improved Comment: pt feels better and states abdominal pain has decreased. Got IVF, will repeat LA. Second Eval Change: Improved - patient resting, LA 2.9, will give one more liter IVF and recheck. Course/Dx - Course Course Of Treatment: This pt is a sign out to Dr. Villarreal from Dr. Jacobo at shift change 2300 01/28/19 pending the pt finishing his second liter of fluids and a repeated latic test. Pt stated that he feels better and will be discharged if his latic acid levels decline. Pt will be discharged home with a Dx of substance abuse. - Diagnoses Provider Diagnoses: Substance abuse Discharge - Sign-Out/Discharge Documenting (check all that apply): Patient Departure - discharge Patient Received Moderate/Deep Sedation with Procedure: No - Discharge Plan Condition: Stable Disposition: HOME Patient Education Materials: Polysubstance Abuse (ED) Referrals: [facility] [Outside] Additional Instructions: You were seen in the emergency department for alcohol intoxication and abdominal pain. Your labs did not show a cause for your pain. Please return for continued pain, vomiting, fevers, or if you are concerned. - Attestation Statements Document Initiated by Scribe: Yes Documenting Scribe: Shaquille Trujillo Provider For Whom Scribe is Documenting (Include Credential): Twan Villarreal MD Scribe Attestation: Shaquille Brunner, scribed for Twan Villarreal MD on 01/29/19 at 0416. Status of Scribe Document: Ready
[2019-01-29 04:33] VITALS: BP 153/88
== END 2019-01-29 04:32 | disposition home or self-care (01) ==
LOC: ED 18:30
DX: F19.10 Other psychoactive substance abuse, uncomplicated (principal); F10.929 Alcohol use, unspecified with intoxication, unspecified; R10.9 Unspecified abdominal pain; E03.9 Hypothyroidism, unspecified; I10 Essential (primary) hypertension; F41.9 Anxiety disorder, unspecified; F32.9 Major depressive disorder, single episode, unspecified; F17.210 Nicotine dependence, cigarettes, uncomplicated
CPT/HCPCS: 36415; 80053; 80329; 83605; 83690; 85025; 93005; 96360; 96361; 99283; G0480

== ENCOUNTER 2019-01-29 09:51 | Emergency (ER) | payer OTHER ==
--- NOTE | 2019-01-29 10:11 | ED ---
Substance Abuse/Use - HPI Summary HPI Summary: Pt is a 28 y/o M presenting to the ED brought in by EMS for substance abuse. He states he took 48 pills of Coricidin and drank two four lokos. He denies any pain or fever. - History Of Current Complaint Chief Complaint: EDOverdose Stated Complaint: ETOH PER EMS Time Seen by Provider: 01/29/19 09:56 Hx Obtained From: Patient Onset/Duration of Drug/ETOH Abuse: Hours Ingestion History: Type/Name Of Drug - Coricidin, Amount Ingested - 48 pills Overdose Characteristics: Oral Timing Of Abuse: Daily Severity Initially: Moderate Severity Currently: Moderate Character: Stuporous Aggravating Factor(s): Nothing Alleviating Factor(s): Nothing Associated Signs And Symptoms: Intentional Ingestion - Allergies/Home Medications Allergies/Adverse Reactions: Allergies Allergy/AdvReac Type Severity Reaction Status Date / Time No Known Allergies Allergy Verified 01/28/19 18:43 Home Medications: Home Medications NK [No Home Medications Reported] 01/29/19 [History Confirmed 01/29/19] PMH/Surg Hx/FS Hx/Imm Hx Previously Healthy: No Endocrine/Hematology History: Reports: Hx Thyroid Disease - Hypothyroidism Denies: Hx Anticoagulant Therapy, Hx Blood Disorders, Hx Blood Transfusions, Hx Bone Marrow Disease, Hx Diabetes, Hx Systemic Lupus Erythematosus, Hx Sickle Cell Disease, Hx Anemia, Hx Unexplained Bleeding, Other Endocrine/Hematological Disorders Cardiovascular History: Reports: Hx Hypertension Denies: Hx Aneurysm, Hx Angina, Hx Angioplasty, Hx Auto Implanted Cardiovert Defib, Hx Cardiac Arrest, Hx Cardiomegaly, Hx Congenital Heart Disease, Hx Congestive Heart Failure, Hx Coronary Artery Disease, Hx Deep Vein Thrombosis, Hx Embolism, Hx Hypercholesterolemia, Hx Hypotension, Hx Pacemaker/ICD, Hx Peripheral Vascular Disease, Hx Rheumatic Fever, Hx Syncope, Hx Valvular Heart Disease, Other Cardiovascular Problems/Disorders Respiratory History: Reports: Hx Pneumonia, Hx Seasonal Allergies Denies: Hx Asthma, Hx Chronic Bronchitis, Hx Chronic Obstructive Pulmonary Disease (COPD), Hx Cystic Fibrosis, Hx Lung Cancer, Hx Pleural Effusion, Hx Pulmonary Edema, Hx Pulmonary Embolism, Hx Sleep Apnea, Other Respiratory Problems/Disorders GI History: Reports: Hx Ulcer Denies: Hx Cirrhosis, Hx Crohn's Disease, Hx Diverticulosis, Hx Gall Bladder Disease, Hx Gastroesophageal Reflux Disease, Hx Gastrointestinal Bleed, Hx Hiatal Hernia, Hx Irritable Bowel, Hx Jaundice, Hx Obstructive Bowel, Hx Ileostomy, Hx Pyloric Stenosis, Other GI Disorders History: Denies: Hx Acute Renal Failure, Hx Benign Prostatic Hyperplasia, Hx Chronic Renal Failure, Hx Dialysis, Hx Kidney Infection, Hx Kidney Stones, Hx Renal Disease, Other Problems/Disorders Musculoskeletal History: Denies: Hx Arthritis, Hx Back Problems, Hx Bursitis, Hx Congenital Bone Abnormalities, Hx Fibromyalgia, Hx Gout, Hx Orthopedic Injury, Hx Osteoporosis, Hx Scoliosis, Hx Tendonitis, Other Musculoskeletal History Sensory History: Denies: Hx Cataracts, Hx Contacts or Glasses, Hx Eye Injury, Hx Eye Prosthesis, Hx Glaucoma, Hx Legally Blind, Hx Macular Degeneration, Hx Vision Problem, Hx Deafness, Hx Hearing Aid, Other Sensory Impairments Opthamlomology History: Denies: Hx Cataracts, Hx Contacts or Glasses, Hx Eye Injury, Hx Eye Prosthesis, Hx Glaucoma, Hx Legally Blind, Hx Macular Degeneration, Hx Vision Problem, Other Sensory Impairments Neurological History: Reports: Hx Headaches, Hx Seizures Denies: Hx Dementia, Hx Developmental Delay, Hx Migraine, Hx Nerve Disease, Hx Spinal Cord Injury, Hx Transient Ischemic Attacks (TIA), Other Neuro Impairments/Disorders Psychiatric History: Reports: Hx Anxiety, Hx Depression, Hx Post Traumatic Stress Disorder, Hx Inpatient Treatment, Hx Community Mental Health Tx, Hx Bipolar Disorder, Hx of Violent Episodes Against Others, Hx Substance Abuse, Other Psychiatric Issues/Disorders Denies: Hx Attention Deficit Hyperactivity Disorder, Hx Eating Disorder, Hx Panic Disorder, Hx Schizophrenia, Hx Suicide Attempt - Cancer History Cancer Type, Location and Year: None reported - Surgical History Surgery Procedure, Year, and Place: none Hx Anesthesia Reactions: No - Immunization History Date of Tetanus Vaccine: Unknown Date of Influenza Vaccine: None Infectious Disease History: No Infectious Disease History: Reports: Hx Hepatitis - Hep C Denies: Hx Clostridium Difficile, Hx Human Immunodeficiency Virus (HIV), Hx of Known/Suspected MRSA, Hx Shingles, Hx Tuberculosis, Hx Known/Suspected VRE, Hx Known/Suspected VRSA, History Other Infectious Disease, Traveled Outside the [place] in Last 30 Days - Family History Known Family History: Positive: Other - cancer Negative: Renal Disease Family History: father - ETOH - Social History Alcohol Use: Daily Alcohol Amount: beers Hx Substance Use: Yes Substance Use Type: Reports: Cocaine, Prescribed, Other Substance Use Comment - Amount & Last Used: Multiple Coricidin overdose Hx Tobacco Use: Yes Smoking Status (MU): Heavy Every Day Tobacco Smoker Type: Cigarettes Have You Smoked in the Last Year: Yes Review of Systems Negative: Fever Negative: Myalgia All Other Systems Reviewed And Are Negative: Yes Physical Exam - Summary Physical Exam Summary: Constitutional: Well-developed, Well-nourished, Alert. (-) Distressed Skin: Warm, Dry HENT: Normocephalic; Atraumatic Eyes: Conjunctiva normal Neck: Musculoskeletal ROM normal neck. (-) JVD, (-) Stridor, (-) Tracheal deviation Cardio: Rhythm regular, rate borderline tachycardic, Heart sounds normal; Intact distal pulses; The pedal pulses are 2+ and symmetric. Radial pulses are 2 + and symmetric. (-) Murmur Pulmonary/Chest wall: Effort normal. (-) Respiratory distress, (-) Wheezes, (-) Rales Abd: Soft, (-) tenderness, (-) Distension, (-) Guarding, (-) Rebound Musculoskeletal: (-) Edema Lymph: (-) Cervical adenopathy Neuro: Alert, Oriented x3 Psych: Tangential thinking, laughing at bedside Triage Information Reviewed: Yes Vital Signs On Initial Exam: Initial Vitals Temp Pulse Resp BP Pulse Ox 98.5 F 95 16 147/87 96 01/29/19 09:52 01/29/19 09:52 01/29/19 09:52 01/29/19 09:52 01/29/19 09:52 Vital Signs Reviewed: Yes Diagnostics - Vital Signs Vital Signs Temp Pulse Resp BP Pulse Ox 01/29/19 09:52 98.5 F 95 16 147/87 96 - Laboratory Result Diagrams: 01/29/19 10:27 01/29/19 10:27 Lab Statement: Any lab studies that have been ordered have been reviewed, and results considered in the medical decision making process. - EKG 1005 Cardiac Rate: NL - 86bpm EKG Rhythm: Sinus Rhythm ST Segment: Normal Ectopy: None Summary of EKG Findings: EKG at 1005 shows NSR at 86bpm with nml ST, nml QTc, nml QRS. No STEMI. Re-Evaluation - Re-Evaluation 1st re-eval Re-Evaluation Time: 13:42 Comment: Pt stood up and ambulated independently. Course/Dx - Course Course Of Treatment: Patient is here after ingesting Coricidin and alcohol. Patient is well-known to the emergency department for similar presentations including multiple this past week. Patient had approximately a work up which showed a level of 160. Poison control was called and recommended watching for 6 hours or until his baseline. Patient was monitored until he was safe for discharge. - Diagnoses Provider Diagnoses: Drug overdose, Alcohol intoxication, Altered mental status Discharge - Sign-Out/Discharge Documenting (check all that apply): Patient Departure Patient Received Moderate/Deep Sedation with Procedure: No - Discharge Plan Condition: Stable Disposition: HOME Patient Education Materials: Abuse of Alcohol (ED), Polysubstance Abuse (ED) Referrals: [facility] [Outside] Additional Instructions: Please follow up with your primary care provider. Return to the emergency department with any new or worsening symptoms. - Billing Disposition and Condition Condition: STABLE Disposition: Home - Attestation Statements Document Initiated by Shelleyibe: Yes Documenting Scribe: Polly Boateng Provider For Whom Momoe is Documenting (Include Credential): Marlon Wall MD. Scribe Attestation: Polly Brunner scribed for Marlon Wall MD. on 01/29/19 at 1448. Scribe Documentation Reviewed: Yes Provider Attestation: The documentation as recorded by the Polly fournier accurately reflects the service I personally performed and the decisions made by Marlon mayen MD. Status of Scribe Document: Viewed
[2019-01-29 10:45] LABS: ABS Lymphocytes 1.7 10^3/ul (1.0-4.8); ABS Monocytes 0.6 10^3/ul (0-0.8); ABS Neutrophils 4.7 10^3/ul (1.5-7.7); Eosinophil % 0.5 %; Hematocrit 39 % (42-52); Hemoglobin 12.9 g/dL (14.0-18.0); Lymphocyte % 23.7 %; Mean Corpuscular HGB Conc 33 g/dL (31-36); Mean Corpuscular Hemoglobin 29 pg (27-31); Mean Corpuscular Volume 89 fL (80-94); Mean Platelet Volume 7.8 fL (7.4-10.4); Platelet Count 200 10^3/uL (150-450); Red Blood Count 4.39 10^6 /uL (4.18-5.48); Red Cell Distribution Width 17 % (10-15)
[2019-01-29 11:08] LABS: ALT 36 U/L (7-52); AST 64 U/L (13-39); Albumin 3.8 g/dL (3.2-5.2); Albumin/Globulin Ratio 1.5 (1-3); Alkaline Phosphatase 50 U/L (34-104); BUN/Creatinine Ratio 7.3 (8-20); Blood Urea Nitrogen 6 mg/dL (6-24); CO2 Carbon Dioxide 26 mmol/L (22-32); Calcium 8.6 mg/dL (8.6-10.3); EGFR African American 135.4 (>60); EGFR Non-African American 111.9 (>60); Globulin 2.6 g/dL (2-4); Glucose 89 mg/dL (70-100); Potassium 3.5 mmol/L (3.5-5.0); Total Protein 6.4 g/dL (6.4-8.9)
[2019-01-29 11:09] LABS: Anion Gap 8 mmol/L (2-11); Chloride 112 mmol/L (101-111); Sodium 146 mmol/L (135-145)
[2019-01-29 11:22] LABS: Acetaminophen < 15 mcg/mL; Alcohol 166 mg/dL (<10)
[2019-01-29 14:50] VITALS: BP 139/105
== END 2019-01-29 14:56 | disposition home or self-care (01) ==
LOC: ED 09:51
DX: T50.991A Poisoning by other drugs, medicaments and biological substances, accidental (unintentional), initial encounter (principal); F10.929 Alcohol use, unspecified with intoxication, unspecified; R41.82 Altered mental status, unspecified; Y92.9 Unspecified place or not applicable; E03.9 Hypothyroidism, unspecified; I10 Essential (primary) hypertension; F41.9 Anxiety disorder, unspecified; F32.9 Major depressive disorder, single episode, unspecified; F17.210 Nicotine dependence, cigarettes, uncomplicated
CPT/HCPCS: 36415; 80053; 80320; 80329; 85025; 93005; 99282; G0480

== ENCOUNTER 2019-01-29 21:14 | Emergency (ER) | payer OTHER ==
--- NOTE | 2019-01-29 21:56 | ED ---
Altered Mental Status - HPI Summary HPI Summary: [place] states all of some alcohol found near him. Patient per EMS responsive only to pain. - History Of Current Complaint Chief Complaint: EDSubstanceAbuse Stated Complaint: 2209, ETOH PER EMS Time Seen by Provider: 01/29/19 21:27 Hx Obtained From: EMS Onset/Duration: Unknown Timing: Constant Severity Initially: Moderate Aggravating Factor(s): Unknown Alleviating Factor(s): Unknown - Allergies/Home Medications Allergies/Adverse Reactions: Allergies Allergy/AdvReac Type Severity Reaction Status Date / Time No Known Allergies Allergy Verified 01/29/19 21:28 PMH/Surg Hx/FS Hx/Imm Hx Endocrine/Hematology History: Reports: Hx Thyroid Disease - Hypothyroidism Denies: Hx Anticoagulant Therapy, Hx Blood Disorders, Hx Blood Transfusions, Hx Bone Marrow Disease, Hx Diabetes, Hx Systemic Lupus Erythematosus, Hx Sickle Cell Disease, Hx Anemia, Hx Unexplained Bleeding, Other Endocrine/Hematological Disorders Cardiovascular History: Reports: Hx Hypertension Denies: Hx Aneurysm, Hx Angina, Hx Angioplasty, Hx Auto Implanted Cardiovert Defib, Hx Cardiac Arrest, Hx Cardiomegaly, Hx Congenital Heart Disease, Hx Congestive Heart Failure, Hx Coronary Artery Disease, Hx Deep Vein Thrombosis, Hx Embolism, Hx Hypercholesterolemia, Hx Hypotension, Hx Pacemaker/ICD, Hx Peripheral Vascular Disease, Hx Rheumatic Fever, Hx Syncope, Hx Valvular Heart Disease, Other Cardiovascular Problems/Disorders Respiratory History: Reports: Hx Pneumonia, Hx Seasonal Allergies Denies: Hx Asthma, Hx Chronic Bronchitis, Hx Chronic Obstructive Pulmonary Disease (COPD), Hx Cystic Fibrosis, Hx Lung Cancer, Hx Pleural Effusion, Hx Pulmonary Edema, Hx Pulmonary Embolism, Hx Sleep Apnea, Other Respiratory Problems/Disorders GI History: Reports: Hx Ulcer Denies: Hx Cirrhosis, Hx Crohn's Disease, Hx Diverticulosis, Hx Gall Bladder Disease, Hx Gastroesophageal Reflux Disease, Hx Gastrointestinal Bleed, Hx Hiatal Hernia, Hx Irritable Bowel, Hx Jaundice, Hx Obstructive Bowel, Hx Ileostomy, Hx Pyloric Stenosis, Other GI Disorders History: Denies: Hx Acute Renal Failure, Hx Benign Prostatic Hyperplasia, Hx Chronic Renal Failure, Hx Dialysis, Hx Kidney Infection, Hx Kidney Stones, Hx Renal Disease, Other Problems/Disorders Musculoskeletal History: Denies: Hx Arthritis, Hx Back Problems, Hx Bursitis, Hx Congenital Bone Abnormalities, Hx Fibromyalgia, Hx Gout, Hx Orthopedic Injury, Hx Osteoporosis, Hx Scoliosis, Hx Tendonitis, Other Musculoskeletal History Sensory History: Denies: Hx Cataracts, Hx Contacts or Glasses, Hx Eye Injury, Hx Eye Prosthesis, Hx Glaucoma, Hx Legally Blind, Hx Macular Degeneration, Hx Vision Problem, Hx Deafness, Hx Hearing Aid, Other Sensory Impairments Opthamlomology History: Denies: Hx Cataracts, Hx Contacts or Glasses, Hx Eye Injury, Hx Eye Prosthesis, Hx Glaucoma, Hx Legally Blind, Hx Macular Degeneration, Hx Vision Problem, Other Sensory Impairments EENT History: Denies: Hx Deafness Neurological History: Reports: Hx Headaches, Hx Seizures Denies: Hx Dementia, Hx Developmental Delay, Hx Migraine, Hx Nerve Disease, Hx Spinal Cord Injury, Hx Transient Ischemic Attacks (TIA), Other Neuro Impairments/Disorders Psychiatric History: Reports: Hx Anxiety, Hx Depression, Hx Post Traumatic Stress Disorder, Hx Inpatient Treatment, Hx Community Mental Health Tx, Hx Bipolar Disorder, Hx of Violent Episodes Against Others, Hx Substance Abuse, Other Psychiatric Issues/Disorders Denies: Hx Attention Deficit Hyperactivity Disorder, Hx Eating Disorder, Hx Panic Disorder, Hx Schizophrenia, Hx Suicide Attempt - Cancer History Cancer Type, Location and Year: None reported - Surgical History Surgery Procedure, Year, and Place: none Hx Anesthesia Reactions: No - Immunization History Date of Tetanus Vaccine: Unknown Date of Influenza Vaccine: None Infectious Disease History: No Infectious Disease History: Reports: Hx Hepatitis - Hep C Denies: Hx Clostridium Difficile, Hx Human Immunodeficiency Virus (HIV), Hx of Known/Suspected MRSA, Hx Shingles, Hx Tuberculosis, Hx Known/Suspected VRE, Hx Known/Suspected VRSA, History Other Infectious Disease, Traveled Outside the [place] in Last 30 Days - Family History Known Family History: Positive: Other - cancer Negative: Renal Disease Family History: father - ETOH - Social History Alcohol Use: Daily Alcohol Amount: beers Hx Substance Use: Yes Substance Use Type: Reports: Cocaine, Prescribed, Other Substance Use Comment - Amount & Last Used: Multiple Coricidin overdose Hx Tobacco Use: Yes Smoking Status (MU): Heavy Every Day Tobacco Smoker Type: Cigarettes Have You Smoked in the Last Year: Yes Review of Systems Constitutional: Negative Eyes: Negative ENT: Negative Cardiovascular: Negative Respiratory: Negative Gastrointestinal: Negative Genitourinary: Negative Musculoskeletal: Negative Skin: Negative Neurological: Negative Positive: Other All Other Systems Reviewed And Are Negative: Yes Physical Exam - Summary Physical Exam Summary: Patient moving all extremities in bed, shifting from side to side. Does not open eyes. Pupils are equal and reactive when held open underlie. Patient does not verbally respond, however response to painful stimuli and will move providers hand away to stop pain. Lung sounds clear to auscultation bilaterally. No trauma noted to mouth, face, head, 4 extremities, chest, abdomen wall, back. Triage Information Reviewed: Yes Vital Signs On Initial Exam: Initial Vitals Temp Pulse Resp BP Pulse Ox 97.5 F 88 16 143/89 96 01/29/19 21:21 01/29/19 21:21 01/29/19 21:21 01/29/19 21:21 01/29/19 21:21 Vital Signs Reviewed: Yes Appearance: Positive: Well-Appearing Skin: Positive: Warm Head/Face: Positive: Normal Head/Face Inspection Eyes: Positive: Normal Dental: Negative: Dental Fracture @, Bleeding Neck: Positive: Supple Respiratory/Lung Sounds: Positive: Clear to Auscultation Cardiovascular: Positive: Normal Abdomen Description: Positive: Nontender Musculoskeletal: Positive: Normal Neurological: Positive: Normal Psychiatric: Positive: Normal AVPU Assessment: Alert - [place] Coma Scale Best Eye Response: 4 - Spontaneous Best Motor Response: 6 - Obeys Commands Best Verbal Response: 5 - Oriented Coma Scale Total: 15 Diagnostics - Vital Signs Vital Signs Temp Pulse Resp BP Pulse Ox 01/29/19 21:21 97.5 F 88 16 143/89 94 - Laboratory Result Diagrams: 01/29/19 22:10 01/29/19 22:10 Lab Statement: Any lab studies that have been ordered have been reviewed, and results considered in the medical decision making process. Altered Mental Statu Course/Dx - Course Course Of Treatment: Patient brought by EMS [place] EMS states all of some alcohol found near him. Patient per EMS responsive only to pain. Vital signs within normal limits. Labs the patient baseline. EtOH 167 at 2200. At 1 AM patient ambulated to the bathroom with no evidence of instability. Patient alert and oriented, coherent. Denies any pain, injury or symptoms. - Diagnoses Provider Diagnoses: Alcohol intoxication Discharge - Sign-Out/Discharge Documenting (check all that apply): Patient Departure Patient Received Moderate/Deep Sedation with Procedure: No - Discharge Plan Condition: Stable Disposition: HOME Patient Education Materials: Abuse of Alcohol (ED) Referrals: No Primary Care Phys,NOPCP [Primary Care Provider] - Additional Instructions: Avoid drinking alcohol. Return to the ED for any new or worsening symptoms. - Billing Disposition and Condition Condition: STABLE Disposition: Home
[2019-01-29 22:17] LABS: ABS Eosinophils 0.1 10^3/ul (0-0.6); ABS Lymphocytes 2.5 10^3/ul (1.0-4.8); ABS Monocytes 0.7 10^3/ul (0-0.8); Eosinophil % 1.4 %; Hematocrit 40 % (42-52); Hemoglobin 13.1 g/dL (14.0-18.0); Lymphocyte % 34.3 %; Mean Corpuscular HGB Conc 33 g/dL (31-36); Mean Corpuscular Hemoglobin 29 pg (27-31); Mean Corpuscular Volume 90 fL (80-94); Mean Platelet Volume 7.7 fL (7.4-10.4); Nucleated Red Blood Cells % 0.1; Platelet Count 204 10^3/uL (150-450); Red Cell Distribution Width 17 % (10-15); White Blood Count 7.3 10^3/uL (3.5-10.8)
[2019-01-29 22:34] LABS: Albumin/Globulin Ratio 1.5 (1-3); BUN/Creatinine Ratio 6.3 (8-20); C Reactive Protein 2.61 mg/L (<8.01); EGFR African American 141.3 (>60); EGFR Non-African American 116.8 (>60); Globulin 2.7 g/dL (2-4); Potassium 3.5 mmol/L (3.5-5.0); Total Bilirubin 0.4 mg/dL (0.2-1.0); Total Protein 6.7 g/dL (6.4-8.9)
[2019-01-30 01:59] VITALS: BP 104/68
== END 2019-01-30 01:57 | disposition home or self-care (01) ==
LOC: ED 21:14
DX: F10.929 Alcohol use, unspecified with intoxication, unspecified (principal); E03.9 Hypothyroidism, unspecified; I10 Essential (primary) hypertension; F17.210 Nicotine dependence, cigarettes, uncomplicated
CPT/HCPCS: 36415; 80053; 80320; 85025; 86140; 99282; G0480

== ENCOUNTER 2019-01-30 19:58 | Emergency (ER) | payer OTHER ==
--- NOTE | 2019-01-30 22:25 | ED ---
Substance Abuse/Use - HPI Summary HPI Summary: Patient brought by EMS for apparent etoh intoxication. Patient is alert and oriented, states he took 48 tabs of Coricidin, and drinks 6 hard ciders. Denies any other pain, injury or symptoms. Denies SI, HI. - History Of Current Complaint Chief Complaint: EDSubstanceAbuse Stated Complaint: ETOH PER EMS Time Seen by Provider: 01/30/19 22:23 Hx Obtained From: Patient Overdose Characteristics: Oral Timing Of Abuse: Daily Severity Initially: Moderate Severity Currently: Moderate Aggravating Factor(s): Nothing Alleviating Factor(s): Nothing Associated Signs And Symptoms: Negative - Allergies/Home Medications Allergies/Adverse Reactions: Allergies Allergy/AdvReac Type Severity Reaction Status Date / Time No Known Allergies Allergy Verified 01/29/19 21:28 PMH/Surg Hx/FS Hx/Imm Hx Endocrine/Hematology History: Reports: Hx Thyroid Disease - Hypothyroidism Denies: Hx Anticoagulant Therapy, Hx Blood Disorders, Hx Blood Transfusions, Hx Bone Marrow Disease, Hx Diabetes, Hx Systemic Lupus Erythematosus, Hx Sickle Cell Disease, Hx Anemia, Hx Unexplained Bleeding, Other Endocrine/Hematological Disorders Cardiovascular History: Reports: Hx Hypertension Denies: Hx Aneurysm, Hx Angina, Hx Angioplasty, Hx Auto Implanted Cardiovert Defib, Hx Cardiac Arrest, Hx Cardiomegaly, Hx Congenital Heart Disease, Hx Congestive Heart Failure, Hx Coronary Artery Disease, Hx Deep Vein Thrombosis, Hx Embolism, Hx Hypercholesterolemia, Hx Hypotension, Hx Pacemaker/ICD, Hx Peripheral Vascular Disease, Hx Rheumatic Fever, Hx Syncope, Hx Valvular Heart Disease, Other Cardiovascular Problems/Disorders Respiratory History: Reports: Hx Pneumonia, Hx Seasonal Allergies Denies: Hx Asthma, Hx Chronic Bronchitis, Hx Chronic Obstructive Pulmonary Disease (COPD), Hx Cystic Fibrosis, Hx Lung Cancer, Hx Pleural Effusion, Hx Pulmonary Edema, Hx Pulmonary Embolism, Hx Sleep Apnea, Other Respiratory Problems/Disorders GI History: Reports: Hx Ulcer Denies: Hx Cirrhosis, Hx Crohn's Disease, Hx Diverticulosis, Hx Gall Bladder Disease, Hx Gastroesophageal Reflux Disease, Hx Gastrointestinal Bleed, Hx Hiatal Hernia, Hx Irritable Bowel, Hx Jaundice, Hx Obstructive Bowel, Hx Ileostomy, Hx Pyloric Stenosis, Other GI Disorders History: Denies: Hx Acute Renal Failure, Hx Benign Prostatic Hyperplasia, Hx Chronic Renal Failure, Hx Dialysis, Hx Kidney Infection, Hx Kidney Stones, Hx Renal Disease, Other Problems/Disorders Musculoskeletal History: Denies: Hx Arthritis, Hx Back Problems, Hx Bursitis, Hx Congenital Bone Abnormalities, Hx Fibromyalgia, Hx Gout, Hx Orthopedic Injury, Hx Osteoporosis, Hx Scoliosis, Hx Tendonitis, Other Musculoskeletal History Sensory History: Denies: Hx Cataracts, Hx Contacts or Glasses, Hx Eye Injury, Hx Eye Prosthesis, Hx Glaucoma, Hx Legally Blind, Hx Macular Degeneration, Hx Vision Problem, Hx Deafness, Hx Hearing Aid, Other Sensory Impairments Opthamlomology History: Denies: Hx Cataracts, Hx Contacts or Glasses, Hx Eye Injury, Hx Eye Prosthesis, Hx Glaucoma, Hx Legally Blind, Hx Macular Degeneration, Hx Vision Problem, Other Sensory Impairments Neurological History: Reports: Hx Headaches, Hx Seizures Denies: Hx Dementia, Hx Developmental Delay, Hx Migraine, Hx Nerve Disease, Hx Spinal Cord Injury, Hx Transient Ischemic Attacks (TIA), Other Neuro Impairments/Disorders Psychiatric History: Reports: Hx Anxiety, Hx Depression, Hx Post Traumatic Stress Disorder, Hx Inpatient Treatment, Hx Community Mental Health Tx, Hx Bipolar Disorder, Hx of Violent Episodes Against Others, Hx Substance Abuse, Other Psychiatric Issues/Disorders Denies: Hx Attention Deficit Hyperactivity Disorder, Hx Eating Disorder, Hx Panic Disorder, Hx Schizophrenia, Hx Suicide Attempt - Cancer History Cancer Type, Location and Year: None reported - Surgical History Surgery Procedure, Year, and Place: none Hx Anesthesia Reactions: No - Immunization History Date of Tetanus Vaccine: Unknown Date of Influenza Vaccine: None Immunizations Up to Date: Yes Infectious Disease History: Yes Infectious Disease History: Reports: Hx Hepatitis - Hep C Denies: Hx Clostridium Difficile, Hx Human Immunodeficiency Virus (HIV), Hx of Known/Suspected MRSA, Hx Shingles, Hx Tuberculosis, Hx Known/Suspected VRE, Hx Known/Suspected VRSA, History Other Infectious Disease, Traveled Outside the [place] in Last 30 Days - Family History Known Family History: Positive: Other - cancer Negative: Renal Disease Family History: father - ETOH - Social History Alcohol Use: Daily Alcohol Amount: beers Hx Substance Use: Yes Substance Use Type: Reports: Cocaine, Prescribed, Other Substance Use Comment - Amount & Last Used: Multiple Coricidin overdose Hx Tobacco Use: Yes Smoking Status (MU): Heavy Every Day Tobacco Smoker Type: Cigarettes Have You Smoked in the Last Year: Yes Review of Systems Constitutional: Negative Eyes: Negative ENT: Negative Cardiovascular: Negative Respiratory: Negative Gastrointestinal: Negative Genitourinary: Negative Musculoskeletal: Negative Skin: Negative Neurological: Negative Psychological: Normal All Other Systems Reviewed And Are Negative: Yes Physical Exam - Summary Physical Exam Summary: Alert and oriented. No evidence of trauma noted during physical exam. Triage Information Reviewed: Yes Vital Signs On Initial Exam: Initial Vitals Temp Pulse Resp BP Pulse Ox 97.6 F 110 16 108/90 97 01/30/19 19:59 01/30/19 19:59 01/30/19 19:59 01/30/19 19:59 01/30/19 19:59 Vital Signs Reviewed: Yes Appearance: Positive: Well-Appearing Skin: Positive: Warm Head/Face: Positive: Normal Head/Face Inspection Eyes: Positive: Normal ENT: Positive: Normal ENT inspection Dental: Negative: Dental Fracture @, Bleeding Neck: Positive: Supple Respiratory/Lung Sounds: Positive: Clear to Auscultation Cardiovascular: Positive: Normal Abdomen Description: Positive: Nontender Musculoskeletal: Positive: Normal Neurological: Positive: Normal Psychiatric: Positive: Normal AVPU Assessment: Alert - [place] Coma Scale Best Eye Response: 4 - Spontaneous Best Motor Response: 6 - Obeys Commands Best Verbal Response: 5 - Oriented Coma Scale Total: 15 Diagnostics - Vital Signs Vital Signs Temp Pulse Resp BP Pulse Ox 01/30/19 21:12 98.5 F 100 18 103/58 94 01/30/19 19:59 97.6 F 110 16 108/90 97 - Laboratory Result Diagrams: 01/30/19 22:31 01/30/19 22:31 Lab Statement: Any lab studies that have been ordered have been reviewed, and results considered in the medical decision making process. Course/Dx - Course Course Of Treatment: Patient brought by EMS for apparent etoh intoxication. Patient is alert and oriented, states he took 48 tabs of Coricidin, and drinks 6 hard ciders. Denies any other pain, injury or symptoms. Denies SI, HI. Vital signs within normal limits. EtOH 267. Labs unremarkable other than hypokalemia. Patient given 40 MEQ of potassium PO. . EtOH levels, patient may be discharged at 5:30 AM 01/31. Patient signed out to Dr. Abrams - Diagnoses Provider Diagnoses: Alcohol abuse Discharge - Sign-Out/Discharge Documenting (check all that apply): Sign-Out Patient Signing out patient TO: Brayan Richardson Patient Received Moderate/Deep Sedation with Procedure: No - Discharge Plan Condition: Stable Disposition: HOME Patient Education Materials: Abuse of Alcohol (ED) Referrals: No Primary Care Phys,NOPCP [Primary Care Provider] - Additional Instructions: Stop drinking alcohol. Return to the ED for any new or worsening symptoms. - Billing Disposition and Condition Condition: STABLE Disposition: Home
[2019-01-30 22:38] LABS: ABS Eosinophils 0.1 10^3/ul (0-0.6); ABS Lymphocytes 2.5 10^3/ul (1.0-4.8); ABS Monocytes 0.6 10^3/ul (0-0.8); ABS Neutrophils 2.7 10^3/ul (1.5-7.7); Eosinophil % 2.3 %; Hematocrit 40 % (42-52); Hemoglobin 13.3 g/dL (14.0-18.0); Lymphocyte % 42.2 %; Mean Corpuscular HGB Conc 33 g/dL (31-36); Mean Corpuscular Hemoglobin 30 pg (27-31); Mean Corpuscular Volume 89 fL (80-94); Mean Platelet Volume 7.8 fL (7.4-10.4); Nucleated Red Blood Cells % 0.1; Platelet Count 189 10^3/uL (150-450); Red Blood Count 4.44 10^6 /uL (4.18-5.48); Red Cell Distribution Width 17 % (10-15)
[2019-01-30 22:56] LABS: ALT 56 U/L (7-52); AST 150 U/L (13-39); Albumin 3.6 g/dL (3.2-5.2); Albumin/Globulin Ratio 1.5 (1-3); Alkaline Phosphatase 52 U/L (34-104); Anion Gap 11 mmol/L (2-11); Blood Urea Nitrogen 7 mg/dL (6-24); CO2 Carbon Dioxide 22 mmol/L (22-32); Calcium 8.7 mg/dL (8.6-10.3); Chloride 104 mmol/L (101-111); EGFR African American 143.4 (>60); EGFR Non-African American 118.5 (>60); Globulin 2.4 g/dL (2-4); Glucose 160 mg/dL (70-100); Potassium 2.8 mmol/L (3.5-5.0); Sodium 137 mmol/L (135-145)
[2019-01-30 23:18] LABS: Acetaminophen < 15 mcg/mL; Alcohol 272 mg/dL (<10); Salicylate < 2.50 mg/dL (<30)
[2019-01-30] MEDS ORDERED: Potassium Chlor TAB* 20 MEQ TAB.ER PO ONE (23:58)
--- NOTE | 2019-01-31 08:01 | ED ---
Progress - Progress Note Progress Note: The patient is a sign-out from GUILLERMINA Davila, to Dr. Brayan Richardson MD, at change of shift at 0230 on 01/31/2019, pending improvement of alcohol intoxication. Patient is still unable to be discharged home at 0700. The patient is a sign-out from Dr. Brayan Richardson MD, to Dr. Gorge Fenton MD, at change of shift at 0700 on 01/31/2019, pending improvement of alcohol intoxication. Re-Evaluation - Re-Evaluation First Eval Re-Evaluation Time: 07:00 Comment: Patient unable to be discharged home at this time. Course/Dx - Course Course Of Treatment: The patient is a sign-out from GUILLERMINA Davila, to Dr. Brayan Richardson MD, at change of shift at 0230 on 01/31/2019, pending improvement of alcohol intoxication. Patient is still unable to be discharged home at 0700. The patient is a sign-out from Dr. Brayan Richardson MD, to Dr. Gorge Fenton MD, at change of shift at 0700 on 01/31/2019, pending improvement of alcohol intoxication. - Diagnoses Provider Diagnoses: Alcohol abuse, Polysubstance (excluding opioids) dependence Discharge - Sign-Out/Discharge Documenting (check all that apply): Sign-Out Patient, Receiving Sign-Out Signing out patient TO: Gorge Fenton - Patient is a sign-out to Dr. Gorge Fenton MD, at change of shift at 0700 on 01/31/2019, pending improvement of alcohol intoxication. Receiving patient FROM: Ed Nj - Patient is a sign-out from GUILLERMINA Davila , at change of shift at 0230 on 01/31/2019, pending improvement of alcohol intoxication. Patient Received Moderate/Deep Sedation with Procedure: No - Discharge Plan Condition: Stable Disposition: HOME Patient Education Materials: Abuse of Alcohol (ED) [facility]errals: [facility] [Outside] - 3 Days Additional Instructions: Stop drinking alcohol. Follow up with [facility] in 3 days. Return to the Emergency Department for any new or worsening symptoms. - Billing Disposition and Condition Condition: STABLE Disposition: Home - Attestation Statements Document Initiated by Scribe: Yes Documenting Scribe: Nat Ibrahim Provider For Whom Scribe is Documenting (Include Credential): Dr. Brayan Richardson MD Scribe Attestation: I, Nat Ibrahim, scribed for Dr. Brayan Richardson MD on 02/04/19 at 0204. Scribe Documentation Reviewed: Yes Provider Attestation: The documentation as recorded by the sandovalibe, Nat Ibrahim accurately reflects the service I personally performed and the decisions made by me, Dr. Brayan Richardson MD Status of Scribe Document: Viewed
--- NOTE | 2019-01-31 08:28 | ED ---
Progress - Progress Note Progress Note: The patient is a sign-out from GUILLERMINA Davila, to Dr. Brayan Richardson MD, at change of shift at 0230 on 01/31/2019, pending improvement of alcohol intoxication. Patient is still unable to be discharged home at 0700. The patient is a sign-out from Dr. Brayan Richardson MD, to Dr. Gorge Fenton MD, at change of shift at 0700 on 01/31/2019, pending improvement of alcohol intoxication. Re-Evaluation - Re-Evaluation First Eval Re-Evaluation Time: 07:00 Comment: Patient unable to be discharged home at this time. Course/Dx - Course Course Of Treatment: The patient is a sign-out from GUILLERMINA Davila, to Dr. Brayan Richardson MD, at change of shift at 0230 on 01/31/2019, pending improvement of alcohol intoxication. Patient is still unable to be discharged home at 0700. The patient is a sign-out from Dr. Brayan Richardson MD, to Dr. Gorge Fenton MD, at change of shift at 0700 on 01/31/2019, pending improvement of alcohol intoxication. . This patient is a 20-year-old male who was signed out by Dr. Abrams at shift change. The patient is awaiting to be sober for the patient is discharged. The patient is sober, alert and oriented 3,drinking therefore the patient will be discharged home with follow- up with PCP. Patient is hemodynamically stable. - Diagnoses Provider Diagnoses: Alcohol abuse, Polysubstance (excluding opioids) dependence Discharge - Sign-Out/Discharge Documenting (check all that apply): Patient Departure Patient Received Moderate/Deep Sedation with Procedure: No - Discharge Plan Condition: Stable Disposition: HOME Patient Education Materials: Abuse of Alcohol (ED) Referrals: Care [facility] [Outside] - 3 Days Additional Instructions: Stop drinking alcohol. Follow up with [facility] in 3 days. Return to the Emergency Department for any new or worsening symptoms. - Billing Disposition and Condition Condition: STABLE Disposition: Home
[2019-01-31 08:30] VITALS: BP 126/75
[2019-01-31] MEDS ORDERED: LORazepam INJ* 2 MG/ML 1 ML VIAL ONE (15:42)
[2019-01-31] MEDS ORDERED: Lorazepam PYXIS KEY ONE (15:42)
== END 2019-01-31 08:28 | disposition home or self-care (01) ==
LOC: ED 19:58
DX: F10.10 Alcohol abuse, uncomplicated (principal); F19.20 Other psychoactive substance dependence, uncomplicated; E03.9 Hypothyroidism, unspecified; I10 Essential (primary) hypertension; F41.9 Anxiety disorder, unspecified; F32.9 Major depressive disorder, single episode, unspecified; F43.10 Post-traumatic stress disorder, unspecified; F17.210 Nicotine dependence, cigarettes, uncomplicated
CPT/HCPCS: 36415; 80053; 80320; 80329; 85025; 99284; G0480; J2060

== ENCOUNTER 2019-01-31 14:14 | Emergency (ER) | payer OTHER ==
[2019-01-31] MEDS ORDERED: NS 0.9% 1000 ML** 1,000 ML IV ONE (14:33)
--- NOTE | 2019-01-31 14:37 | ED ---
Substance Abuse/Use - HPI Summary HPI Summary: A 28 y/o male brought in by [facility] ambulance presents to [facility] with a chief complaint of substance abuse. At 10:00 today the patient took 48 Coricidin and reports EtOH use. In the ED the patient is yelling. The patient has a Hx of Coricidin and EtOH abuse. - History Of Current Complaint Stated Complaint: PSYCH EVAL PER EMS Time Seen by Provider: 01/31/19 14:24 Hx Obtained From: Patient, EMS Ingestion History: Type/Name Of Drug - Coricdin EtOH, Amount Ingested - 48 Coricidin, Approximate Time Of Ingestion - 10:00 Overdose Characteristics: Oral Timing Of Abuse: Intermittent Severity Initially: Mild Severity Currently: Mild Character: Other - agitated Aggravating Factor(s): Nothing Alleviating Factor(s): Nothing Associated Signs And Symptoms: Agitated - Allergies/Home Medications Allergies/Adverse Reactions: Allergies Allergy/AdvReac Type Severity Reaction Status Date / Time No Known Allergies Allergy Verified 01/29/19 21:28 PMH/Surg Hx/FS Hx/Imm Hx Endocrine/Hematology History: Reports: Hx Thyroid Disease - Hypothyroidism Denies: Hx Anticoagulant Therapy, Hx Blood Disorders, Hx Blood Transfusions, Hx Bone Marrow Disease, Hx Diabetes, Hx Systemic Lupus Erythematosus, Hx Sickle Cell Disease, Hx Anemia, Hx Unexplained Bleeding, Other Endocrine/Hematological Disorders Cardiovascular History: Reports: Hx Hypertension Denies: Hx Aneurysm, Hx Angina, Hx Angioplasty, Hx Auto Implanted Cardiovert Defib, Hx Cardiac Arrest, Hx Cardiomegaly, Hx Congenital Heart Disease, Hx Congestive Heart Failure, Hx Coronary Artery Disease, Hx Deep Vein Thrombosis, Hx Embolism, Hx Hypercholesterolemia, Hx Hypotension, Hx Pacemaker/ICD, Hx Peripheral Vascular Disease, Hx Rheumatic Fever, Hx Syncope, Hx Valvular Heart Disease, Other Cardiovascular Problems/Disorders Respiratory History: Reports: Hx Pneumonia, Hx Seasonal Allergies Denies: Hx Asthma, Hx Chronic Bronchitis, Hx Chronic Obstructive Pulmonary Disease (COPD), Hx Cystic Fibrosis, Hx Lung Cancer, Hx Pleural Effusion, Hx Pulmonary Edema, Hx Pulmonary Embolism, Hx Sleep Apnea, Other Respiratory Problems/Disorders GI History: Reports: Hx Ulcer Denies: Hx Cirrhosis, Hx Crohn's Disease, Hx Diverticulosis, Hx Gall Bladder Disease, Hx Gastroesophageal Reflux Disease, Hx Gastrointestinal Bleed, Hx Hiatal Hernia, Hx Irritable Bowel, Hx Jaundice, Hx Obstructive Bowel, Hx Ileostomy, Hx Pyloric Stenosis, Other GI Disorders History: Denies: Hx Acute Renal Failure, Hx Benign Prostatic Hyperplasia, Hx Chronic Renal Failure, Hx Dialysis, Hx Kidney Infection, Hx Kidney Stones, Hx Renal Disease, Other Problems/Disorders Musculoskeletal History: Denies: Hx Arthritis, Hx Back Problems, Hx Bursitis, Hx Congenital Bone Abnormalities, Hx Fibromyalgia, Hx Gout, Hx Orthopedic Injury, Hx Osteoporosis, Hx Scoliosis, Hx Tendonitis, Other Musculoskeletal History Sensory History: Denies: Hx Cataracts, Hx Contacts or Glasses, Hx Eye Injury, Hx Eye Prosthesis, Hx Glaucoma, Hx Legally Blind, Hx Macular Degeneration, Hx Vision Problem, Hx Deafness, Hx Hearing Aid, Other Sensory Impairments Opthamlomology History: Denies: Hx Cataracts, Hx Contacts or Glasses, Hx Eye Injury, Hx Eye Prosthesis, Hx Glaucoma, Hx Legally Blind, Hx Macular Degeneration, Hx Vision Problem, Other Sensory Impairments Neurological History: Reports: Hx Headaches, Hx Seizures Denies: Hx Dementia, Hx Developmental Delay, Hx Migraine, Hx Nerve Disease, Hx Spinal Cord Injury, Hx Transient Ischemic Attacks (TIA), Other Neuro Impairments/Disorders Psychiatric History: Reports: Hx Anxiety, Hx Depression, Hx Post Traumatic Stress Disorder, Hx Inpatient Treatment, Hx Community Mental Health Tx, Hx Bipolar Disorder, Hx of Violent Episodes Against Others, Hx Substance Abuse, Other Psychiatric Issues/Disorders Denies: Hx Attention Deficit Hyperactivity Disorder, Hx Eating Disorder, Hx Panic Disorder, Hx Schizophrenia, Hx Suicide Attempt - Cancer History Cancer Type, Location and Year: None reported - Surgical History Surgery Procedure, Year, and Place: none Hx Anesthesia Reactions: No - Immunization History Date of Tetanus Vaccine: Unknown Date of Influenza Vaccine: None Infectious Disease History: Reports: Hx Hepatitis - Hep C Denies: Hx Clostridium Difficile, Hx Human Immunodeficiency Virus (HIV), Hx of Known/Suspected MRSA, Hx Shingles, Hx Tuberculosis, Hx Known/Suspected VRE, Hx Known/Suspected VRSA, History Other Infectious Disease - Family History Known Family History: Positive: Other - cancer Negative: Renal Disease Family History: father - ETOH - Social History Alcohol Use: Daily Alcohol Amount: beers Hx Substance Use: Yes Substance Use Type: Reports: Cocaine, Prescribed, Other Substance Use Comment - Amount & Last Used: Multiple Coricidin overdose Hx Tobacco Use: Yes Smoking Status (MU): Heavy Every Day Tobacco Smoker Type: Cigarettes Have You Smoked in the Last Year: Yes Review of Systems Negative: Fever Psychological: Other - positive: Pt took 48 Coricidin, EtOH abuse All Other Systems Reviewed And Are Negative: Yes Physical Exam - Summary Physical Exam Summary: General: Yelling, agitated, thrashing on bed HEENT: PERRL Cardiovascular: Tachycardic Pulmonary: No respiratory distress, no tachypnea Abdomen: Non-distended Skin: Warm, pink, dry MSK: No edema Psych: agitated and yelling Neuro: A&Ox3, moving all extremities Triage Information Reviewed: Yes Vital Signs Reviewed: Yes Diagnostics - Laboratory Lab Statement: Any lab studies that have been ordered have been reviewed, and results considered in the medical decision making process. - EKG 14:40 Cardiac Rate: Tachycardia - 114 bpm EKG Rhythm: Sinus Tachycardia Summary of EKG Findings: An EKG at 14:40 reveals sinus tachycardia at 114 bpm, nml axis, nml intervals. No STEMI. No acute changes. Re-Evaluation - Re-Evaluation First Eval Re-Evaluation Time: 15:41 Change: Worse Comment: Pt is hysterical and yelling, he will be given Ativan. Second Eval Re-Evaluation Time: 19:58 Change: Improved Comment: Pt is ambulatory, Denies SI or HI, alert and oriented x3. HR 80's Course/Dx - Course Course Of Treatment: 28-year-old male who presents with alcohol intoxication and cough syrup overdose. On arrival to emergency department, patient agitated yelling at staff. Patient given IV fluids and tachycardia and 2 of Ativan for anxiety. Patient has welled admitted history of similar behavior in the past, will reevaluate after he is sober. No obvious signs of trauma, alert and oriented 3. - Diagnoses Provider Diagnoses: Substance use disorder Discharge - Sign-Out/Discharge Documenting (check all that apply): Patient Departure - DC Patient Received Moderate/Deep Sedation with Procedure: No - Discharge Plan Condition: Stable Disposition: HOME Patient Education Materials: Polysubstance Abuse (ED) Referrals: Care [facility] [Outside] Additional Instructions: You were seen in the emergency department after alcohol intoxication and drug use. Do not use drugs and drink or drive. Please seek help if you have thoughts of wanting to hurt yourself or others - Billing Disposition and Condition Condition: STABLE Disposition: Home - Attestation Statements Document Initiated by Scribe: Yes Documenting Scribe: Dave Gamboa Provider For Whom Scribe is Documenting (Include Credential): Javon Marques MD Scribe Attestation: I, Dave Gamboa, scribed for Javon Marques MD on 01/31/19 at 2018. Scribe Documentation Reviewed: Yes Provider Attestation: The documentation as recorded by the [email or web address] accurately reflects the service I personally performed and the decisions made by me, Javon Marques MD Status of Scribe Document: Viewed
[2019-01-31] MEDS ORDERED: Lorazepam PYXIS KEY PRN (15:41)
[2019-01-31] MEDS ORDERED: LORazepam INJ* 2 MG/ML 1 ML VIAL IV PUSH ONE (15:41)
[2019-01-31 20:33] VITALS: BP 125/97
== END 2019-01-31 20:35 | disposition home or self-care (01) ==
LOC: ED 14:14
DX: F19.90 Other psychoactive substance use, unspecified, uncomplicated (principal); E03.9 Hypothyroidism, unspecified; I10 Essential (primary) hypertension; F41.9 Anxiety disorder, unspecified; F43.10 Post-traumatic stress disorder, unspecified; F31.9 Bipolar disorder, unspecified; F17.210 Nicotine dependence, cigarettes, uncomplicated
CPT/HCPCS: 93005; 96361; 96374; 99284

== ENCOUNTER 2019-01-31 23:13 | Emergency (ER) | payer OTHER ==
--- NOTE | 2019-02-01 01:16 | ED ---
Substance Abuse/Use - HPI Summary HPI Summary: Patient is a 28 y/o M presenting to ED with EMS and police under 2209 status for alcohol intoxication. Patient was seen in ED three hours ago and was discharged. He subsequently went to a store, stole four lokos and drank them. He has multiple visits for similar issues. Patient is uncooperative and belligerent. Level 5 caveat, alcohol intoxication. - History Of Current Complaint Chief Complaint: EDSubstanceAbuse Stated Complaint: ETOH PER EMS Time Seen by Provider: 02/01/19 00:14 Hx Obtained From: EMS Hx From Patient Unobtainable Due To: Altered Mental Status Onset/Duration of Drug/ETOH Abuse: Hours Ingestion History: Type/Name Of Drug - four lokos Overdose Characteristics: Oral Aggravating Factor(s): Nothing Alleviating Factor(s): Nothing Associated Signs And Symptoms: Agitated - Allergies/Home Medications Allergies/Adverse Reactions: Allergies Allergy/AdvReac Type Severity Reaction Status Date / Time No Known Allergies Allergy Verified 01/29/19 21:28 PMH/Surg Hx/FS Hx/Imm Hx Endocrine/Hematology History: Reports: Hx Thyroid Disease - Hypothyroidism Denies: Hx Anticoagulant Therapy, Hx Blood Disorders, Hx Blood Transfusions, Hx Bone Marrow Disease, Hx Diabetes, Hx Systemic Lupus Erythematosus, Hx Sickle Cell Disease, Hx Anemia, Hx Unexplained Bleeding, Other Endocrine/Hematological Disorders Cardiovascular History: Reports: Hx Hypertension Denies: Hx Aneurysm, Hx Angina, Hx Angioplasty, Hx Auto Implanted Cardiovert Defib, Hx Cardiac Arrest, Hx Cardiomegaly, Hx Congenital Heart Disease, Hx Congestive Heart Failure, Hx Coronary Artery Disease, Hx Deep Vein Thrombosis, Hx Embolism, Hx Hypercholesterolemia, Hx Hypotension, Hx Pacemaker/ICD, Hx Peripheral Vascular Disease, Hx Rheumatic Fever, Hx Syncope, Hx Valvular Heart Disease, Other Cardiovascular Problems/Disorders Respiratory History: Reports: Hx Pneumonia, Hx Seasonal Allergies Denies: Hx Asthma, Hx Chronic Bronchitis, Hx Chronic Obstructive Pulmonary Disease (COPD), Hx Cystic Fibrosis, Hx Lung Cancer, Hx Pleural Effusion, Hx Pulmonary Edema, Hx Pulmonary Embolism, Hx Sleep Apnea, Other Respiratory Problems/Disorders GI History: Reports: Hx Ulcer Denies: Hx Cirrhosis, Hx Crohn's Disease, Hx Diverticulosis, Hx Gall Bladder Disease, Hx Gastroesophageal Reflux Disease, Hx Gastrointestinal Bleed, Hx Hiatal Hernia, Hx Irritable Bowel, Hx Jaundice, Hx Obstructive Bowel, Hx Ileostomy, Hx Pyloric Stenosis, Other GI Disorders History: Denies: Hx Acute Renal Failure, Hx Benign Prostatic Hyperplasia, Hx Chronic Renal Failure, Hx Dialysis, Hx Kidney Infection, Hx Kidney Stones, Hx Renal Disease, Other Problems/Disorders Musculoskeletal History: Denies: Hx Arthritis, Hx Back Problems, Hx Bursitis, Hx Congenital Bone Abnormalities, Hx Fibromyalgia, Hx Gout, Hx Orthopedic Injury, Hx Osteoporosis, Hx Scoliosis, Hx Tendonitis, Other Musculoskeletal History Sensory History: Denies: Hx Cataracts, Hx Contacts or Glasses, Hx Eye Injury, Hx Eye Prosthesis, Hx Glaucoma, Hx Legally Blind, Hx Macular Degeneration, Hx Vision Problem, Hx Deafness, Hx Hearing Aid, Other Sensory Impairments Opthamlomology History: Denies: Hx Cataracts, Hx Contacts or Glasses, Hx Eye Injury, Hx Eye Prosthesis, Hx Glaucoma, Hx Legally Blind, Hx Macular Degeneration, Hx Vision Problem, Other Sensory Impairments Neurological History: Reports: Hx Headaches, Hx Seizures Denies: Hx Dementia, Hx Developmental Delay, Hx Migraine, Hx Nerve Disease, Hx Spinal Cord Injury, Hx Transient Ischemic Attacks (TIA), Other Neuro Impairments/Disorders Psychiatric History: Reports: Hx Anxiety, Hx Depression, Hx Post Traumatic Stress Disorder, Hx Inpatient Treatment, Hx Community Mental Health Tx, Hx Bipolar Disorder, Hx of Violent Episodes Against Others, Hx Substance Abuse, Other Psychiatric Issues/Disorders Denies: Hx Attention Deficit Hyperactivity Disorder, Hx Eating Disorder, Hx Panic Disorder, Hx Schizophrenia, Hx Suicide Attempt - Cancer History Cancer Type, Location and Year: None reported - Surgical History Surgery Procedure, Year, and Place: none Hx Anesthesia Reactions: No - Immunization History Date of Tetanus Vaccine: Unknown Date of Influenza Vaccine: None Infectious Disease History: No Infectious Disease History: Reports: Hx Hepatitis - Hep C Denies: Hx Clostridium Difficile, Hx Human Immunodeficiency Virus (HIV), Hx of Known/Suspected MRSA, Hx Shingles, Hx Tuberculosis, Hx Known/Suspected VRE, Hx Known/Suspected VRSA, History Other Infectious Disease, Traveled Outside the [place] in Last 30 Days - Family History Known Family History: Positive: Other - cancer Negative: Renal Disease Family History: father - ETOH - Social History Alcohol Use: Daily Alcohol Amount: beers Hx Substance Use: Yes Substance Use Type: Reports: Cocaine, Prescribed, Other Substance Use Comment - Amount & Last Used: Multiple Coricidin overdose Hx Tobacco Use: Yes Smoking Status (MU): Heavy Every Day Tobacco Smoker Type: Cigarettes Have You Smoked in the Last Year: Yes Review of Systems - ROS Summary Review of Systems Summary: level 5 caveat, alcohol intoxication Constitutional: Other - positive - alcohol intoxication Negative: Fever - on vitals, temp is 97.4 F Neurological: Other - positive - AMS All Other Systems Reviewed And Are Negative: No - Comments Additional Review of Systems Comments: level 5 caveat, alcohol intoxication Physical Exam - Summary Physical Exam Summary: Constitutional: Well-developed, Well-nourished, Alert. Clearly intoxicated. (-) Distressed Skin: Warm, Dry HENT: Normocephalic; Atraumatic Eyes: Conjunctiva normal Neck: Musculoskeletal ROM normal neck. (-) JVD, (-) Stridor, (-) Tracheal deviation Cardio: Rhythm regular, rate normal, Heart sounds normal; Intact distal pulses; The pedal pulses are 2+ and symmetric. Radial pulses are 2+ and symmetric. Pulmonary/Chest wall: Effort normal. (-) Respiratory distress, (-) Wheezes, (-) Rales Abd: Soft, (-) tenderness, (-) Distension, (-) Guarding, (-) Rebound Musculoskeletal: (-) Edema Neuro: Level 5 caveat due to alcohol intoxication Psych: Mood and affect Normal Triage Information Reviewed: Yes Vital Signs On Initial Exam: Initial Vitals Temp Pulse Resp BP Pulse Ox 97.4 F 88 18 121/80 97 01/31/19 23:15 01/31/19 23:15 01/31/19 23:15 01/31/19 23:15 01/31/19 23:15 Vital Signs Reviewed: Yes Completion Of Physical Exam Limited Due To: Level 5 - [place] Coma Scale Best Eye Response: 4 - Spontaneous Best Motor Response: 6 - Obeys Commands Best Verbal Response: 5 - Oriented Coma Scale Total: 15 Diagnostics - Vital Signs Vital Signs Temp Pulse Resp BP Pulse Ox 02/01/19 00:22 98 18 120/76 96 01/31/19 23:15 97.4 F 88 18 121/80 97 - Laboratory Lab Statement: Any lab studies that have been ordered have been reviewed, and results considered in the medical decision making process. Re-Evaluation - Re-Evaluation First Eval Re-Evaluation Time: 06:11 Comment: Per Charge Nurse Airam's note, "assisted pt to the bathroom, pt refusing assistance while in bathroom, however pt proceeds to urinate on the bathroom martel and floor, I attempted to redirect him multiple times and pt swore at me and was yelling about using a toilet. I called for security and Dr Frey. Pt proceeded to swear and yell at the dr., Dr Frey instructed pt that his behavior is unacceptable and that he was being discharged. Pt given green scrubs to change in to because his clothing is very soiled. escorted out by security." Course/Dx - Course Course Of Treatment: Patient is a 28 y/o M presenting to ED with EMS and police under 2209 status for alcohol intoxication. Patient was seen in ED three hours ago and was discharged. He subsequently went to a store, stole four lokos and drank them. He has multiple visits for similar issues. Patient is uncooperative and belligerent. Level [address] was negative. When patient was being assisted to bathroom, he urinated on bathroom floor and martel. He was belligerent and yelling at staff. Security called. Patient proceeded to continue to yell at staff. Patient was discharged to home and escorted out by security. - Diagnoses Provider Diagnoses: Alcohol dependence Discharge - Sign-Out/Discharge Documenting (check all that apply): Patient Departure - discharge Patient Received Moderate/Deep Sedation with Procedure: No - Discharge Plan Condition: Stable Disposition: HOME Patient Education Materials: Alcohol Dependence (ED) Referrals: [facility] [Outside] - Billing Disposition and Condition Condition: STABLE Disposition: Home - Attestation Statements Document Initiated by Shantanu: Yes Documenting Scribe: Nat Thacker Provider For Whom Shantanu is Documenting (Include Credential): Dr. Ed Frey MD Scribe Attestation: I, Nat Thacker, scribed for Dr. Ed Frey MD on 02/01 at 0703. Scribe Documentation Reviewed: Yes Provider Attestation: The documentation as recorded by the shantanu, Nat Thacker accurately reflects the service I personally performed and the decisions made by me, Dr. Ed Frey MD Status of Scribe Document: Viewed
[2019-02-01 06:03] VITALS: BP 116/83
== END 2019-02-01 06:19 | disposition home or self-care (01) ==
LOC: ED 23:13
DX: F10.20 Alcohol dependence, uncomplicated (principal); E03.9 Hypothyroidism, unspecified; I10 Essential (primary) hypertension; F17.210 Nicotine dependence, cigarettes, uncomplicated
CPT/HCPCS: 70450; 99284

== ENCOUNTER 2019-02-01 07:42 | Emergency (ER) | payer OTHER ==
--- NOTE | 2019-02-01 07:50 | ED ---
Substance Abuse/Use - HPI Summary HPI Summary: 28 year old M brought in by ambulance and police to [facility] complains of unknown substance use 30 minutes ago. Symptoms aggravated by nothing. Symptoms alleviated by nothing. Per police, [employer] gas station staff thought that patient was trying to steal beer so gas station staff called 911. Upon arrival to scene, police were unable to find anything missing from the store and did not find anything near or with patient. Per police, patient made homicidal comments so patient was brought to ED. Police report that patient stated that he wants to kill a geriatric social work professor from [facility]. In the ED, patient is uncooperative. He continually repeats "I'm bringing it all down" to ED staff. Unable to obtain good history from patient. Per ED staff, patient reportedly had a court appointment yesterday for violating parole and missing meetings, and patient may go back to rehab soon. Patient was discharged this morning from ED. LEVEL 5 CAVEAT: HPI is limited because patient is uncooperative and unable to provide a good history - History Of Current Complaint Stated Complaint: 941 PER EMS Hx Obtained From: Patient, Other: - police, ED staff Aggravating Factor(s): Nothing Alleviating Factor(s): Nothing - Allergies/Home Medications Allergies/Adverse Reactions: Allergies Allergy/AdvReac Type Severity Reaction Status Date / Time No Known Allergies Allergy Verified 01/29/19 21:28 Home Medications: Home Medications Unobtainable 02/01/19 [History Confirmed 02/01/19] PMH/Surg Hx/FS Hx/Imm Hx Previously Healthy: No Endocrine/Hematology History: Reports: Hx Thyroid Disease - Hypothyroidism Denies: Hx Anticoagulant Therapy, Hx Blood Disorders, Hx Blood Transfusions, Hx Bone Marrow Disease, Hx Diabetes, Hx Systemic Lupus Erythematosus, Hx Sickle Cell Disease, Hx Anemia, Hx Unexplained Bleeding, Other Endocrine/Hematological Disorders Cardiovascular History: Reports: Hx Hypertension Denies: Hx Aneurysm, Hx Angina, Hx Angioplasty, Hx Auto Implanted Cardiovert Defib, Hx Cardiac Arrest, Hx Cardiomegaly, Hx Congenital Heart Disease, Hx Congestive Heart Failure, Hx Coronary Artery Disease, Hx Deep Vein Thrombosis, Hx Embolism, Hx Hypercholesterolemia, Hx Hypotension, Hx Pacemaker/ICD, Hx Peripheral Vascular Disease, Hx Rheumatic Fever, Hx Syncope, Hx Valvular Heart Disease, Other Cardiovascular Problems/Disorders Respiratory History: Reports: Hx Pneumonia, Hx Seasonal Allergies Denies: Hx Asthma, Hx Chronic Bronchitis, Hx Chronic Obstructive Pulmonary Disease (COPD), Hx Cystic Fibrosis, Hx Lung Cancer, Hx Pleural Effusion, Hx Pulmonary Edema, Hx Pulmonary Embolism, Hx Sleep Apnea, Other Respiratory Problems/Disorders GI History: Reports: Hx Ulcer Denies: Hx Cirrhosis, Hx Crohn's Disease, Hx Diverticulosis, Hx Gall Bladder Disease, Hx Gastroesophageal Reflux Disease, Hx Gastrointestinal Bleed, Hx Hiatal Hernia, Hx Irritable Bowel, Hx Jaundice, Hx Obstructive Bowel, Hx Ileostomy, Hx Pyloric Stenosis, Other GI Disorders History: Denies: Hx Acute Renal Failure, Hx Benign Prostatic Hyperplasia, Hx Chronic Renal Failure, Hx Dialysis, Hx Kidney Infection, Hx Kidney Stones, Hx Renal Disease, Other Problems/Disorders Musculoskeletal History: Denies: Hx Arthritis, Hx Back Problems, Hx Bursitis, Hx Congenital Bone Abnormalities, Hx Fibromyalgia, Hx Gout, Hx Orthopedic Injury, Hx Osteoporosis, Hx Scoliosis, Hx Tendonitis, Other Musculoskeletal History Sensory History: Denies: Hx Cataracts, Hx Contacts or Glasses, Hx Eye Injury, Hx Eye Prosthesis, Hx Glaucoma, Hx Legally Blind, Hx Macular Degeneration, Hx Vision Problem, Hx Deafness, Hx Hearing Aid, Other Sensory Impairments Opthamlomology History: Denies: Hx Cataracts, Hx Contacts or Glasses, Hx Eye Injury, Hx Eye Prosthesis, Hx Glaucoma, Hx Legally Blind, Hx Macular Degeneration, Hx Vision Problem, Other Sensory Impairments Neurological History: Reports: Hx Headaches, Hx Seizures Denies: Hx Dementia, Hx Developmental Delay, Hx Migraine, Hx Nerve Disease, Hx Spinal Cord Injury, Hx Transient Ischemic Attacks (TIA), Other Neuro Impairments/Disorders Psychiatric History: Reports: Hx Anxiety, Hx Depression, Hx Post Traumatic Stress Disorder, Hx Inpatient Treatment, Hx Community Mental Health Tx, Hx Bipolar Disorder, Hx of Violent Episodes Against Others, Hx Substance Abuse, Other Psychiatric Issues/Disorders Denies: Hx Attention Deficit Hyperactivity Disorder, Hx Eating Disorder, Hx Panic Disorder, Hx Schizophrenia, Hx Suicide Attempt - Cancer History Cancer Type, Location and Year: None reported - Surgical History Surgery Procedure, Year, and Place: none Hx Anesthesia Reactions: No - Immunization History Date of Tetanus Vaccine: Unknown Date of Influenza Vaccine: None Infectious Disease History: Reports: Hx Hepatitis - Hep C Denies: Hx Clostridium Difficile, Hx Human Immunodeficiency Virus (HIV), Hx of Known/Suspected MRSA, Hx Shingles, Hx Tuberculosis, Hx Known/Suspected VRE, Hx Known/Suspected VRSA, History Other Infectious Disease - Family History Known Family History: Positive: Other - cancer Negative: Renal Disease Family History: father - ETOH - Social History Alcohol Use: Daily Alcohol Amount: beers Hx Substance Use: Yes Substance Use Type: Reports: Cocaine, Prescribed, Other Substance Use Comment - Amount & Last Used: Multiple Coricidin overdose Hx Tobacco Use: Yes Smoking Status (MU): Heavy Every Day Tobacco Smoker Type: Cigarettes Have You Smoked in the Last Year: Yes Review of Systems Negative: Fever Positive: Other - unknown substance All Other Systems Reviewed And Are Negative: Yes Physical Exam - Summary Physical Exam Summary: VITAL SIGNS: Reviewed. GENERAL: Patient is a well-developed and nourished MALE who is lying comfortable in the stretcher. Patient is not in any acute respiratory distress. Patient is under the influence of a substance. HEAD AND FACE: No signs of trauma. No ecchymosis, hematomas or skull depressions. No sinus tenderness. EYES: PERRLA, EOMI x 2, No injected conjunctiva, no nystagmus. EARS: Hearing grossly intact. Ear canals and tympanic membranes are within normal limits. MOUTH: Oropharynx within normal limits. NECK: Supple, trachea is midline, no adenopathy, no JVD, no carotid bruit, no c- spine tenderness, neck with full ROM. CHEST: Symmetric, no tenderness at palpation. LUNGS: Clear to auscultation bilaterally. No wheezing or crackles. CVS: Regular rate and rhythm, S1 and S2 present, no murmurs or gallops appreciated. ABDOMEN: Soft, non-tender. No signs of distention. No rebound, no guarding, and no masses palpated. Bowel sounds are normal. EXTREMITIES: FROM in all major joints, no edema, no cyanosis or clubbing. NEURO: Alert and oriented x 3. No acute neurological deficits. Speech is normal and follows commands. SKIN: Dry and warm. Triage Information Reviewed: Yes Vital Signs Reviewed: Yes Diagnostics - Laboratory Result Diagrams: 02/01/19 08:04 02/01/19 08:04 Lab Statement: Any lab studies that have been ordered have been reviewed, and results considered in the medical decision making process. Course/Dx - Course Assessment/Plan: 28 year old M brought in by ambulance and police to [facility] complains of unknown substance use 30 minutes ago. Symptoms aggravated by nothing. Symptoms alleviated by nothing. Per police, [employer] gas station staff thought that patient was trying to steal beer so gas station staff called 911. Upon arrival to the scene, police were unable to find anything missing from the store and did not find anything near or with patient. Per police, patient made homicidal comments so patient was brought to ED. Police report that patient stated that he wants to kill a geriatric social work professor from [facility]. In the ED, patient is uncooperative. He continually repeats "I'm bringing it all down" to ED staff. Unable to obtain good history from patient. Per ED staff, patient reportedly had a court appointment yesterday for violating parole and missing meetings, and patient may go back to rehab soon. Patient was discharged this morning from ED. Blood test results without any significant abnormality except for questionable of 3.2 for which the patient was given potassium chloride. Also magnesium is 1.8 therefore he was given magnesium by mouth. Calcium 7.9, glucose 127. Alcohol level is 287. The patient was medically cleared after 7 hours. The patient was evaluated by Dr. Madrigal who recommends for the patient to be discharged with follow up from the ACT Team. - Diagnoses Provider Diagnoses: Polysubstance abuse, Polysubstance dependence, Substance induced mood disorder Discharge - Sign-Out/Discharge Documenting (check all that apply): Patient Departure - Discharge Patient Received Moderate/Deep Sedation with Procedure: No - Discharge Plan Condition: Stable Disposition: HOME Referrals: No Primary Care Phys,NOPCP [Primary Care Provider] - - Billing Disposition and Condition Condition: STABLE Disposition: Home - Attestation Statements Document Initiated by Mario: Yes Documenting Scribe: Deb Duncan Provider For Whom Mario is Documenting (Include Credential): Gorge Fenton MD Scribe Attestation: IDeb, scribed for Gorge Fenton MD on 02/01/19 at 1852. Scribe Documentation Reviewed: Yes Provider Attestation: The documentation as recorded by the Deb fournier accurately reflects the service I personally performed and the decisions made by me, Gorge Fenton MD Status of Scribe Document: Viewed
[2019-02-01 08:12] LABS: ABS Basophils 0.1 10^3/ul (0-0.2); ABS Eosinophils 0.1 10^3/ul (0-0.6); ABS Lymphocytes 1.9 10^3/ul (1.0-4.8); ABS Monocytes 0.5 10^3/ul (0-0.8); ABS Neutrophils 2.3 10^3/ul (1.5-7.7); Eosinophil % 1.2 %; Hematocrit 44 % (42-52); Hemoglobin 14.2 g/dL (14.0-18.0); Lymphocyte % 39.4 %; Mean Corpuscular HGB Conc 33 g/dL (31-36); Mean Corpuscular Hemoglobin 29 pg (27-31); Mean Corpuscular Volume 89 fL (80-94); Mean Platelet Volume 7.7 fL (7.4-10.4); Nucleated Red Blood Cells % 0.2; Platelet Count 205 10^3/uL (150-450); Red Blood Count 4.89 10^6 /uL (4.18-5.48); Red Cell Distribution Width 16 % (10-15); White Blood Count 4.9 10^3/uL (3.5-10.8)
[2019-02-01 08:33] LABS: ALT 56 U/L (7-52); AST 109 U/L (13-39); Albumin 3.7 g/dL (3.2-5.2); Albumin/Globulin Ratio 1.6 (1-3); Alkaline Phosphatase 58 U/L (34-104); Anion Gap 7 mmol/L (2-11); BUN/Creatinine Ratio 6.5 (8-20); Blood Urea Nitrogen 5 mg/dL (6-24); CO2 Carbon Dioxide 29 mmol/L (22-32); Calcium 7.9 mg/dL (8.6-10.3); Chloride 105 mmol/L (101-111); EGFR African American 145.6 (>60); EGFR Non-African American 120.3 (>60); Globulin 2.3 g/dL (2-4); Glucose 127 mg/dL (70-100); Potassium 3.2 mmol/L (3.5-5.0); Sodium 141 mmol/L (135-145)
[2019-02-01] MEDS ORDERED: Potassium Chlor TAB* 20 MEQ TAB.ER PO ONE (08:48)
[2019-02-01 09:06] LABS: Alcohol 287 mg/dL (<10); Salicylate < 2.50 mg/dL (<30)
[2019-02-01 09:07] LABS: Magnesium 1.8 mg/dL (1.9-2.7)
[2019-02-01 09:21] LABS: TSH (Thyroid Stimulating Horm) 4.37 mcIU/mL (0.34-5.60)
[2019-02-01 09:59] LABS: Urine Appearance Clear; Urine Bilirubin Negative (Negative); Urine Blood Negative (Negative); Urine Color Yellow; Urine Glucose Negative (Negative); Urine Ketones Negative (Negative); Urine Nitrite Negative (Negative); Urine Protein Negative (Negative); Urine Specific Gravity 1.014 (1.010-1.030); Urine Urobilinogen Negative (Negative)
[2019-02-01 10:24] LABS: Urine Benzodiazepine Screen None Detected (None Detect); Urine Opiates Screen None Detected (None Detect)
[2019-02-01 11:41] LABS: Acetaminophen < 15 mcg/mL
[2019-02-01 16:44] VITALS: BP 137/92
== END 2019-02-01 16:45 | disposition home or self-care (01) ==
LOC: ED 07:42
DX: F19.24 Other psychoactive substance dependence with psychoactive substance-induced mood disorder (principal); F19.20 Other psychoactive substance dependence, uncomplicated; E03.9 Hypothyroidism, unspecified; I10 Essential (primary) hypertension; F41.9 Anxiety disorder, unspecified; F32.9 Major depressive disorder, single episode, unspecified; F43.10 Post-traumatic stress disorder, unspecified; F17.210 Nicotine dependence, cigarettes, uncomplicated
CPT/HCPCS: 36415; 80053; 80307; 80320; 80329; 81003; 83735; 84443; 85025; 99285; G0480

== ENCOUNTER 2019-02-01 20:42 | Emergency (ER) | payer OTHER ==
[2019-02-01] MEDS ORDERED: Famotidine IV* 10 MG/ML 2 ML (20 mg) ONE (20:49)
[2019-02-01] MEDS ORDERED: LORazepam INJ* 2 MG/ML 1 ML VIAL ONE ×2 (20:52→21:10)
[2019-02-01] MEDS ORDERED: NS 0.9% 1000 ML** 1,000 ML IV.FLUID IV ONE (21:06)
[2019-02-01] MEDS ORDERED: diPHENhydraMINE IV* 50 MG/ML 1 ml VIAL (BENADRYL) ONE (21:10)
[2019-02-01] MEDS ORDERED: Haloperidol Decanoate* 50 MG/ML AMP ONE (21:10)
[2019-02-01 21:12] LABS: ABS Basophils 0.1 10^3/ul (0-0.2); ABS Lymphocytes 2.3 10^3/ul (1.0-4.8); ABS Monocytes 1.2 10^3/ul (0-0.8); ABS Neutrophils 6.1 10^3/ul (1.5-7.7); Eosinophil % 0.5 %; Hematocrit 44 % (42-52); Hemoglobin 14.5 g/dL (14.0-18.0); Lymphocyte % 23.5 %; Mean Corpuscular HGB Conc 33 g/dL (31-36); Mean Corpuscular Hemoglobin 29 pg (27-31); Mean Corpuscular Volume 89 fL (80-94); Mean Platelet Volume 7.5 fL (7.4-10.4); Nucleated Red Blood Cells % 0.1; Platelet Count 236 10^3/uL (150-450); Red Blood Count 4.94 10^6 /uL (4.18-5.48); Red Cell Distribution Width 17 % (10-15); White Blood Count 9.7 10^3/uL (3.5-10.8)
[2019-02-01] MEDS ORDERED: NS 0.9% 1000 ML** 1,000 ML IV ONE (21:14)
--- NOTE | 2019-02-01 21:14 | ED ---
Substance Abuse/Use - HPI Summary HPI Summary: This pt is a 28 Y/O M brought in by police for substance abuse at a bus stop where he became combative, agitated, and was unable to stand by himself per police. THIS PT IS A LEVEL 5 CAVEAT DUE TO INTOXICATION. - History Of Current Complaint Chief Complaint: EDSubstanceAbuse Stated Complaint: 2209/MHE PER POLICE Hx Obtained From: Other: - police Hx From Patient Unobtainable Due To: Extremis - intoxication. Character: Other - agitated Associated Signs And Symptoms: Hostile Related Hx: Prior Drug Abuse Counseling/Admission - Allergies/Home Medications Allergies/Adverse Reactions: Allergies Allergy/AdvReac Type Severity Reaction Status Date / Time No Known Allergies Allergy Verified 02/01/19 20:50 PMH/Surg Hx/FS Hx/Imm Hx Previously Healthy: Yes Endocrine/Hematology History: Reports: Hx Thyroid Disease - Hypothyroidism Denies: Hx Anticoagulant Therapy, Hx Blood Disorders, Hx Blood Transfusions, Hx Bone Marrow Disease, Hx Diabetes, Hx Systemic Lupus Erythematosus, Hx Sickle Cell Disease, Hx Anemia, Hx Unexplained Bleeding, Other Endocrine/Hematological Disorders Cardiovascular History: Reports: Hx Hypertension Denies: Hx Aneurysm, Hx Angina, Hx Angioplasty, Hx Auto Implanted Cardiovert Defib, Hx Cardiac Arrest, Hx Cardiomegaly, Hx Congenital Heart Disease, Hx Congestive Heart Failure, Hx Coronary Artery Disease, Hx Deep Vein Thrombosis, Hx Embolism, Hx Hypercholesterolemia, Hx Hypotension, Hx Pacemaker/ICD, Hx Peripheral Vascular Disease, Hx Rheumatic Fever, Hx Syncope, Hx Valvular Heart Disease, Other Cardiovascular Problems/Disorders Respiratory History: Reports: Hx Pneumonia, Hx Seasonal Allergies Denies: Hx Asthma, Hx Chronic Bronchitis, Hx Chronic Obstructive Pulmonary Disease (COPD), Hx Cystic Fibrosis, Hx Lung Cancer, Hx Pleural Effusion, Hx Pulmonary Edema, Hx Pulmonary Embolism, Hx Sleep Apnea, Other Respiratory Problems/Disorders GI History: Reports: Hx Ulcer Denies: Hx Cirrhosis, Hx Crohn's Disease, Hx Diverticulosis, Hx Gall Bladder Disease, Hx Gastroesophageal Reflux Disease, Hx Gastrointestinal Bleed, Hx Hiatal Hernia, Hx Irritable Bowel, Hx Jaundice, Hx Obstructive Bowel, Hx Ileostomy, Hx Pyloric Stenosis, Other GI Disorders History: Denies: Hx Acute Renal Failure, Hx Benign Prostatic Hyperplasia, Hx Chronic Renal Failure, Hx Dialysis, Hx Kidney Infection, Hx Kidney Stones, Hx Renal Disease, Other Problems/Disorders Musculoskeletal History: Denies: Hx Arthritis, Hx Back Problems, Hx Bursitis, Hx Congenital Bone Abnormalities, Hx Fibromyalgia, Hx Gout, Hx Orthopedic Injury, Hx Osteoporosis, Hx Scoliosis, Hx Tendonitis, Other Musculoskeletal History Sensory History: Denies: Hx Cataracts, Hx Contacts or Glasses, Hx Eye Injury, Hx Eye Prosthesis, Hx Glaucoma, Hx Legally Blind, Hx Macular Degeneration, Hx Vision Problem, Hx Deafness, Hx Hearing Aid, Other Sensory Impairments Opthamlomology History: Denies: Hx Cataracts, Hx Contacts or Glasses, Hx Eye Injury, Hx Eye Prosthesis, Hx Glaucoma, Hx Legally Blind, Hx Macular Degeneration, Hx Vision Problem, Other Sensory Impairments Neurological History: Reports: Hx Headaches, Hx Seizures Denies: Hx Dementia, Hx Developmental Delay, Hx Migraine, Hx Nerve Disease, Hx Spinal Cord Injury, Hx Transient Ischemic Attacks (TIA), Other Neuro Impairments/Disorders Psychiatric History: Reports: Hx Anxiety, Hx Depression, Hx Post Traumatic Stress Disorder, Hx Inpatient Treatment, Hx Community Mental Health Tx, Hx Bipolar Disorder, Hx of Violent Episodes Against Others, Hx Substance Abuse, Other Psychiatric Issues/Disorders Denies: Hx Attention Deficit Hyperactivity Disorder, Hx Eating Disorder, Hx Panic Disorder, Hx Schizophrenia, Hx Suicide Attempt - Cancer History Cancer Type, Location and Year: None reported - Surgical History Surgery Procedure, Year, and Place: none Hx Anesthesia Reactions: No - Immunization History Date of Tetanus Vaccine: Unknown Date of Influenza Vaccine: None Infectious Disease History: No Infectious Disease History: Reports: Hx Hepatitis - Hep C Denies: Hx Clostridium Difficile, Hx Human Immunodeficiency Virus (HIV), Hx of Known/Suspected MRSA, Hx Shingles, Hx Tuberculosis, Hx Known/Suspected VRE, Hx Known/Suspected VRSA, History Other Infectious Disease, Traveled Outside the [place] in Last 30 Days - Family History Known Family History: Positive: Other - cancer Negative: Renal Disease Family History: father - ETOH - Social History Alcohol Use: Daily Alcohol Amount: beers Hx Substance Use: Yes Substance Use Type: Reports: Cocaine, Prescribed, Other Substance Use Comment - Amount & Last Used: Multiple Coricidin overdose Hx Tobacco Use: Yes Smoking Status (MU): Heavy Every Day Tobacco Smoker Type: Cigarettes Have You Smoked in the Last Year: Yes Review of Systems - ROS Summary Review of Systems Summary: A FULL ROS IS UNOBTAINABLE DUE TO THE PT BEING HEAVILY INTOXICATED FROM AN UNKNOWN SUBSTANCE. Positive: Other - intoxicated Positive: Other - Hostile All Other Systems Reviewed And Are Negative: No Physical Exam - Summary Physical Exam Summary: A FULL PE IS UNOBTAINABLE DUE TO THE PT BEING HEAVILY INTOXICATED FROM AN UNKNOWN SUBSTANCE. Appearance: Well appearing, no pain distress Skin: warm, dry, reflects adequate perfusion, bilateral knee abrasions Head/face: normal Eyes: EOMI, [place] ENT: normal Neck: supple, non-tender Respiratory: CTA, breath sounds present Cardiovascular: tachycardia, pulses symmetrical Abdomen: non-tender, soft Musculoskeletal: normal, strength/ROM intact Neuro: normal, sensory motor intact, A&Ox3 Psych: agitated, confused Vital Signs On Initial Exam: Initial Vitals Temp Pulse Resp BP Pulse Ox 100.5 F 149 41 164/108 96 02/01/19 20:47 02/01/19 20:47 02/01/19 20:47 02/01/19 20:47 02/01/19 20:47 Diagnostics - Vital Signs Vital Signs Temp Pulse Resp BP Pulse Ox 02/01/19 20:47 100.5 F 149 41 164/108 96 - Laboratory Result Diagrams: 02/01/19 21:06 02/01/19 21:06 Lab Statement: Any lab studies that have been ordered have been reviewed, and results considered in the medical decision making process. - CT Brain CT Interpretation Completed By: Radiologist Summary of CT Findings: No traumatic intracranial abnormalities. ED physician has reviewed this report. cervical spine CT Interpretation Completed By: Radiologist Summary of CT Findings: No cervical spine traumatic abnormalities. ED physician has reviewed this report. - EKG 2104 Cardiac Rate: Tachycardia - [address] Segment: Normal Ectopy: None EKG Comparison: No Significant Change Summary of EKG Findings: Sinus Tachycardia at 150 BPM with a Normal axis. Normal interval. No ischemic changes. Interpreted by Dr. Crain at 210902/01/19. Course/Dx - Course Course Of Treatment: THIS PT IS A LEVEL 5 CAVEAT DUE TO HIS BEING HEAVILY INTOXICATED FROM AN UNKNOWN SUBSTANCE. This pt is a 28 Y/O M brought in by police for being hostile and intoxicated. His PE found that he was agitated, confused, and tachycardic. Pt had to be restrained due to his hostile nature. His EKG showed Sinus Tachycardia at 150 BPM with a Normal axis. Normal interval. No ischemic changes. His brain CT showed the following: No traumatic intracranial abnormalities. His cervical spine CT showed the following: No cervical spine traumatic abnormalities. His lab results were reviewed. He will be discharged home with a Dx of substance abuse. - Diagnoses Differential Diagnosis/HQI/PQRI: Positive: Alcohol Abuse, Drug Abuse Provider Diagnoses: Substance abuse - Critical Care Time Critical Care Time: 30-74 min Discharge - Sign-Out/Discharge Documenting (check all that apply): Patient Departure - discharge Patient Received Moderate/Deep Sedation with Procedure: No - Discharge Plan Condition: Stable Disposition: HOME Patient Education Materials: Polysubstance Abuse (ED) Referrals: Care [facility] [Outside] Additional Instructions: PLEASE FOLLOW UP WITH [facility] IN 1-3 DAYS AND RETURN TO THE EMERGENCY DEPARTMENT FOR ANY NEW OR WORSENING SYMPTOMS. - Billing Disposition and Condition Condition: STABLE Disposition: Home - Attestation Statements Document Initiated by Shelleyibe: Yes Documenting Scribe: Shaquille Trujillo Provider For Whom Scribe is Documenting (Include Credential): Estiven Crain MD Scribe Attestation: Shaquille Brunner scribed for Estiven Crain MD on 02/02/19 at 0538. Scribe Documentation Reviewed: Yes Provider Attestation: The documentation as recorded by the Shaquille fournier accurately reflects the service I personally performed and the decisions made by Estiven mayen MD Status of Scribe Document: Viewed
[2019-02-01 21:30] LABS: ALT 72 U/L (7-52); AST 155 U/L (13-39); Albumin 3.9 g/dL (3.2-5.2); Albumin/Globulin Ratio 1.4 (1-3); Alkaline Phosphatase 64 U/L (34-104); Anion Gap 16 mmol/L (2-11); BUN/Creatinine Ratio 8.2 (8-20); Blood Urea Nitrogen 9 mg/dL (6-24); CO2 Carbon Dioxide 23 mmol/L (22-32); Calcium 8.8 mg/dL (8.6-10.3); Chloride 103 mmol/L (101-111); EGFR African American 96.4 (>60); EGFR Non-African American 79.7 (>60); Globulin 2.7 g/dL (2-4); Glucose 100 mg/dL (70-100); Potassium 3.2 mmol/L (3.5-5.0); Sodium 142 mmol/L (135-145); Total Protein 6.6 g/dL (6.4-8.9)
[2019-02-01 21:46] LABS: Acetaminophen < 15 mcg/mL; Alcohol < 10 mg/dL (<10); Salicylate < 2.50 mg/dL (<30)
[2019-02-01 22:01] LABS: TSH (Thyroid Stimulating Horm) 16.33 mcIU/mL (0.34-5.60)
[2019-02-01] MEDS ORDERED: Potassium Chlor TAB* 20 MEQ TAB.ER PO ONE (22:03)
[2019-02-01] MEDS ORDERED: NS 0.9% 1000 ML** 1,000 ML IV SCH (22:45)
[2019-02-01] MEDS ORDERED: Lorazepam PYXIS KEY PRN (23:07)
[2019-02-01] MEDS ORDERED: LORazepam INJ* 2 MG/ML 1 ML VIAL IV PUSH ONE (23:07)
[2019-02-01] MEDS ORDERED: Lorazepam PYXIS KEY ONE (23:09)
[2019-02-02 06:53] VITALS: BP 128/76
== END 2019-02-02 04:45 | disposition home or self-care (01) ==
LOC: ED 20:42
DX: F19.129 Other psychoactive substance abuse with intoxication, unspecified (principal); F17.210 Nicotine dependence, cigarettes, uncomplicated; E03.9 Hypothyroidism, unspecified; I10 Essential (primary) hypertension; F41.9 Anxiety disorder, unspecified; F32.9 Major depressive disorder, single episode, unspecified
CPT/HCPCS: 36415; 70450; 72125; 80053; 80320; 80329; 84443; 85025; 96361; 96374; 99285; G0480; J1200; J1631; J2060

== ENCOUNTER 2019-03-19 13:39 | Emergency (ER) | payer OTHER ==
[2019-03-19 14:46] LABS: ABS Basophils 0.1 10^3/ul (0-0.2); ABS Eosinophils 0.1 10^3/ul (0-0.6); ABS Monocytes 0.7 10^3/ul (0-0.8); ABS Neutrophils 5.7 10^3/ul (1.5-7.7); Eosinophil % 1.3 %; Hematocrit 41 % (42-52); Hemoglobin 13.8 g/dL (14.0-18.0); Lymphocyte % 23.7 %; Mean Corpuscular HGB Conc 33 g/dL (31-36); Mean Corpuscular Hemoglobin 29 pg (27-31); Mean Corpuscular Volume 86 fL (80-94); Mean Platelet Volume 8.6 fL (7.4-10.4); Platelet Count 230 10^3/uL (150-450); Red Cell Distribution Width 15 % (10-15); White Blood Count 8.6 10^3/uL (3.5-10.8)
[2019-03-19 14:57] LABS: Urine Appearance Clear; Urine Bacteria Absent (Absent); Urine Bilirubin Negative (Negative); Urine Blood Negative (Negative); Urine Color Yellow; Urine Glucose Negative (Negative); Urine Ketones Negative (Negative); Urine Nitrite Negative (Negative); Urine Protein Negative (Negative); Urine Red Blood Cell Absent (Absent); Urine Specific Gravity 1.012 (1.010-1.030); Urine Urobilinogen Negative (Negative); Urine White Blood Cell Trace(0-5/hpf) (Absent)
[2019-03-19 15:32] LABS: TSH (Thyroid Stimulating Horm) 1.26 mcIU/mL (0.34-5.60)
[2019-03-19 15:37] LABS: ALT 16 U/L (7-52); AST 17 U/L (13-39); Albumin 4.3 g/dL (3.2-5.2); Albumin/Globulin Ratio 1.7 (1-3); Alkaline Phosphatase 65 U/L (34-104); Anion Gap 7 mmol/L (2-11); BUN/Creatinine Ratio 10.1 (8-20); Blood Urea Nitrogen 9 mg/dL (6-24); CO2 Carbon Dioxide 24 mmol/L (22-32); Calcium 9.2 mg/dL (8.6-10.3); Chloride 108 mmol/L (101-111); EGFR African American 122.3 (>60); EGFR Non-African American 101.1 (>60); Globulin 2.6 g/dL (2-4); Glucose 132 mg/dL (70-100); Potassium 3.5 mmol/L (3.5-5.0); Sodium 139 mmol/L (135-145); Total Protein 6.9 g/dL (6.4-8.9)
[2019-03-19 15:45] LABS: Urine Benzodiazepine Screen None Detected (None Detect); Urine Opiates Screen None Detected (None Detect)
[2019-03-19 15:53] LABS: Acetaminophen < 15 mcg/mL; Alcohol < 10 mg/dL (<10); Salicylate < 2.50 mg/dL (<30)
--- NOTE | 2019-03-19 17:14 | ED ---
Psychiatric Complaint - HPI Summary HPI Summary: This patient is a 29-year-old male identifying is a female presenting to the ED from [facility]. Patient was brought to the emergency room after having a [id number] signed by a therapeutic sales specialist. Patient is unable to be held at the correction at this time. He is currently been in correction for 2 months. He has been having increasingly disorganized and decompensating violent behavior per her nurse at [facility]. He states he has a plan for bombing [place]. Patient denies all these allegations. Patient states he does not wish to bombing [place] and he denies any SI or HI at this time. He denies any pain and has not taken any drugs or alcohol in the past 2 months that he has been in correction. He states he would like to go to a treatment facility somewhere in [place], [place], however is unsure of the name. Denies any recent smoking history. Continues to state he would like a sex change, however otherwise has not been having any thoughts of depression, anxiety or suicidal thoughts. He does not wish to return to correction and states he will be compliant as long as he gets his sex change as well as goes to [facility]. - History Of Current Complaint Chief Complaint: EDMentalHealth Time Seen by Provider: 03/19/19 13:56 Hx Obtained From: Patient Onset/Duration: Sudden Onset Timing: Constant Character: Stuporous Aggravating Factor(s): Drug Use Alleviating Factor(s): Nothing Associated Signs And Symptoms: Positive: Confused, Hallucinating, Social Withdrawal, Social Isolation Related History: Positive For: Drug Abuse Counseling Ingestion History: Type/Name Of Drug - coricidin - none today - Risk Factor(s) Completed Suicide Risk Factors: Male - Allergies/Home Medications Allergies/Adverse Reactions: Allergies Allergy/AdvReac Type Severity Reaction Status Date / Time No Known Allergies Allergy Verified 02/01/19 20:50 Home Medications: Home Medications Levothyroxine TAB* [Synthroid TAB*] 150 mcg PO DAILY 03/19/19 [History Confirmed 03/19/19] PMH/Surg Hx/FS Hx/Imm Hx Previously Healthy: No Endocrine/Hematology History: Reports: Hx Thyroid Disease - Hypothyroidism Denies: Hx Anticoagulant Therapy, Hx Blood Disorders, Hx Blood Transfusions, Hx Bone Marrow Disease, Hx Diabetes, Hx Systemic Lupus Erythematosus, Hx Sickle Cell Disease, Hx Anemia, Hx Unexplained Bleeding, Other Endocrine/Hematological Disorders Cardiovascular History: Reports: Hx Hypertension Denies: Hx Aneurysm, Hx Angina, Hx Angioplasty, Hx Auto Implanted Cardiovert Defib, Hx Cardiac Arrest, Hx Cardiomegaly, Hx Congenital Heart Disease, Hx Congestive Heart Failure, Hx Coronary Artery Disease, Hx Deep Vein Thrombosis, Hx Embolism, Hx Hypercholesterolemia, Hx Hypotension, Hx Pacemaker/ICD, Hx Peripheral Vascular Disease, Hx Rheumatic Fever, Hx Syncope, Hx Valvular Heart Disease, Other Cardiovascular Problems/Disorders Respiratory History: Reports: Hx Pneumonia, Hx Seasonal Allergies Denies: Hx Asthma, Hx Chronic Bronchitis, Hx Chronic Obstructive Pulmonary Disease (COPD), Hx Cystic Fibrosis, Hx Lung Cancer, Hx Pleural Effusion, Hx Pulmonary Edema, Hx Pulmonary Embolism, Hx Sleep Apnea, Other Respiratory Problems/Disorders GI History: Reports: Hx Ulcer Denies: Hx Cirrhosis, Hx Crohn's Disease, Hx Diverticulosis, Hx Gall Bladder Disease, Hx Gastroesophageal Reflux Disease, Hx Gastrointestinal Bleed, Hx Hiatal Hernia, Hx Irritable Bowel, Hx Jaundice, Hx Obstructive Bowel, Hx Ileostomy, Hx Pyloric Stenosis, Other GI Disorders History: Denies: Hx Acute Renal Failure, Hx Benign Prostatic Hyperplasia, Hx Chronic Renal Failure, Hx Dialysis, Hx Kidney Infection, Hx Kidney Stones, Hx Renal Disease, Other Problems/Disorders Musculoskeletal History: Denies: Hx Arthritis, Hx Back Problems, Hx Bursitis, Hx Congenital Bone Abnormalities, Hx Fibromyalgia, Hx Gout, Hx Orthopedic Injury, Hx Osteoporosis, Hx Scoliosis, Hx Tendonitis, Other Musculoskeletal History Sensory History: Denies: Hx Cataracts, Hx Contacts or Glasses, Hx Eye Injury, Hx Eye Prosthesis, Hx Glaucoma, Hx Legally Blind, Hx Macular Degeneration, Hx Vision Problem, Hx Deafness, Hx Hearing Aid, Other Sensory Impairments Opthamlomology History: Denies: Hx Cataracts, Hx Contacts or Glasses, Hx Eye Injury, Hx Eye Prosthesis, Hx Glaucoma, Hx Legally Blind, Hx Macular Degeneration, Hx Vision Problem, Other Sensory Impairments Neurological History: Reports: Hx Headaches, Hx Seizures Denies: Hx Dementia, Hx Developmental Delay, Hx Migraine, Hx Nerve Disease, Hx Spinal Cord Injury, Hx Transient Ischemic Attacks (TIA), Other Neuro Impairments/Disorders Psychiatric History: Reports: Hx Anxiety, Hx Depression, Hx Post Traumatic Stress Disorder, Hx Inpatient Treatment, Hx Community Mental Health Tx, Hx Bipolar Disorder, Hx of Violent Episodes Against Others, Hx Substance Abuse, Other Psychiatric Issues/Disorders Denies: Hx Attention Deficit Hyperactivity Disorder, Hx Eating Disorder, Hx Panic Disorder, Hx Schizophrenia, Hx Suicide Attempt - Cancer History Cancer Type, Location and Year: None reported - Surgical History Surgery Procedure, Year, and Place: none Hx Anesthesia Reactions: No - Immunization History Date of Tetanus Vaccine: Unknown Date of Influenza Vaccine: None Hx Pertussis Vaccination: No Immunizations Up to Date: Yes Infectious Disease History: No Infectious Disease History: Reports: Hx Hepatitis - Hep C Denies: Hx Clostridium Difficile, Hx Human Immunodeficiency Virus (HIV), Hx of Known/Suspected MRSA, Hx Shingles, Hx Tuberculosis, Hx Known/Suspected VRE, Hx Known/Suspected VRSA, History Other Infectious Disease, Traveled Outside the [place] in Last 30 Days - Family History Known Family History: Positive: Other - cancer Negative: Renal Disease Family History: father - ETOH - Social History Occupation: Unemployed Lives: Alone - correction Alcohol Use: Daily Alcohol Amount: beers Hx Substance Use: Yes Substance Use Type: Reports: Cocaine, Prescribed, Other Substance Use Comment - Amount & Last Used: Multiple Coricidin overdose Hx Tobacco Use: Yes Smoking Status (MU): Heavy Every Day Tobacco Smoker Type: Cigarettes Have You Smoked in the Last Year: Yes Review of Systems Negative: Fever, Chills, Fatigue, Skin Diaphoresis Negative: Palpitations, Chest Pain Negative: Shortness Of Breath, Cough Negative: Arthralgia, Myalgia Negative: Headache, Weakness Negative: Anxious, Depressed All Other Systems Reviewed And Are Negative: Yes Physical Exam Triage Information Reviewed: Yes Vital Signs On Initial Exam: Initial Vitals Temp Pulse Resp BP Pulse Ox 98.5 F 109 18 136/106 95 03/19/19 13:47 03/19/19 13:47 03/19/19 13:47 03/19/19 13:47 03/19/19 13:47 Vital Signs Reviewed: Yes Appearance: Positive: Ill-Appearing Skin: Positive: Skin Color Reflects Adequate Perfusion Head/Face: Positive: Normal Head/Face Inspection Neck: Positive: Nontender, No Lymphadenopathy Respiratory/Lung Sounds: Positive: Clear to Auscultation, Breath Sounds Present Cardiovascular: Positive: RRR, Pulses are Symmetrical in both Upper and Lower Extremities Musculoskeletal: Positive: Strength/ROM Intact Neurological: Positive: Slurred Speech Psychiatric: Positive: Anxious, Patient Uncooperative for Exam AVPU Assessment: Alert Procedures - Sedation Patient Received Moderate/Deep Sedation with Procedure: No Diagnostics - Vital Signs Vital Signs Temp Pulse Resp BP Pulse Ox 03/19/19 13:47 98.5 F 109 18 136/106 95 - Laboratory Lab Results: Lab Results 03/19/19 03/19/19 03/19/19 Range/Units 14:05 14:05 14:34 WBC 8.6 (3.5-10.8) 10^3/uL RBC 4.80 (4.18-5.48) 10^6 /uL Hgb 13.8 L (14.0-18.0) g/dL Hct 41 L (42-52) % MCV 86 (80-94) fL MCH 29 (27-31) pg MCHC 33 (31-36) g/dL RDW 15 (10-15) % Plt Count 230 (150-450) 10^3/uL MPV 8.6 (7.4-10.4) fL Neut % (Auto) 65.8 % Lymph % (Auto) 23.7 % [place] % (Auto) 8.3 % Eos % (Auto) 1.3 % Baso % (Auto) 0.9 % Absolute Neuts (auto) 5.7 (1.5-7.7) 10^3/ul Absolute Lymphs (auto) 2.0 (1.0-4.8) 10^3/ul Absolute Monos (auto) 0.7 (0-0.8) 10^3/ul Absolute Eos (auto) 0.1 (0-0.6) 10^3/ul Absolute Basos (auto) 0.1 (0-0.2) 10^3/ul Absolute Nucleated RBC 0.0 10^3/ul Nucleated RBC % 0.0 Sodium (135-145) mmol/L Potassium (3.5-5.0) mmol/L Chloride (101-111) mmol/L Carbon Dioxide (22-32) mmol/L Anion Gap (2-11) mmol/L BUN (6-24) mg/dL Creatinine (0.67-1.17) mg/dL Est GFR ( Amer) (>60) Est GFR (Non-Af Amer) (>60) BUN/Creatinine Ratio (8-20) Glucose (70-100) mg/dL Calcium (8.6-10.3) mg/dL Total Bilirubin (0.2-1.0) mg/dL AST (13-39) U/L ALT (7-52) U/L Alkaline Phosphatase (34-104) U/L Total Protein (6.4-8.9) g/dL Albumin (3.2-5.2) g/dL Globulin (2-4) g/dL Albumin/Globulin Ratio (1-3) TSH (0.34-5.60) mcIU/mL Urine Color Yellow Urine Appearance Clear Urine pH 6.0 (5-9) Ur Specific [place] 1.012 (1.010-1.030) Urine Protein Negative (Negative) Urine Ketones Negative (Negative) Urine Blood Negative (Negative) Urine Nitrate Negative (Negative) Urine Bilirubin Negative (Negative) Urine Urobilinogen Negative (Negative) Ur Leukocyte Esterase 1+ A (Negative) Urine WBC (Auto) Trace(0-5/hpf) (Absent) Urine RBC (Auto) Absent (Absent) Urine Bacteria Absent (Absent) Urine Glucose Negative (Negative) Urine Ascorbic Acid * A (Negative) Salicylates (<30) mg/dL Urine Opiates Screen None detected (None Detect) Acetaminophen mcg/mL Ur Barbiturates Screen None detected (None Detect) Ur Phencyclidine Scrn None detected (None Detect) Ur Amphetamines Screen None detected (None Detect) U Benzodiazepines Scrn None detected (None Detect) Urine Cocaine Screen None detected (None Detect) U Cannabinoids Screen None detected (None Detect) Serum Alcohol (<10) mg/dL 03/19/19 Range/Units 14:34 WBC (3.5-10.8) 10^3/uL RBC (4.18-5.48) 10^6 /uL Hgb (14.0-18.0) g/dL Hct (42-52) % MCV (80-94) fL MCH (27-31) pg MCHC (31-36) g/dL RDW (10-15) % Plt Count (150-450) 10^3/uL MPV (7.4-10.4) fL Neut % (Auto) % Lymph % (Auto) % [place] % (Auto) % Eos % (Auto) % Baso % (Auto) % Absolute Neuts (auto) (1.5-7.7) 10^3/ul Absolute Lymphs (auto) (1.0-4.8) 10^3/ul Absolute Monos (auto) (0-0.8) 10^3/ul Absolute Eos (auto) (0-0.6) 10^3/ul Absolute Basos (auto) (0-0.2) 10^3/ul Absolute Nucleated RBC 10^3/ul Nucleated RBC % Sodium 139 (135-145) mmol/L Potassium 3.5 (3.5-5.0) mmol/L Chloride 108 (101-111) mmol/L Carbon Dioxide 24 (22-32) mmol/L Anion Gap 7 (2-11) mmol/L BUN 9 (6-24) mg/dL Creatinine 0.89 (0.67-1.17) mg/dL Est GFR ( Amer) 122.3 (>60) Est GFR (Non-Af Amer) 101.1 (>60) BUN/Creatinine Ratio 10.1 (8-20) Glucose 132 H (70-100) mg/dL Calcium 9.2 (8.6-10.3) mg/dL Total Bilirubin 0.30 (0.2-1.0) mg/dL AST 17 (13-39) U/L ALT 16 (7-52) U/L Alkaline Phosphatase 65 (34-104) U/L Total Protein 6.9 (6.4-8.9) g/dL Albumin 4.3 (3.2-5.2) g/dL Globulin 2.6 (2-4) g/dL Albumin/Globulin Ratio 1.7 (1-3) TSH 1.26 (0.34-5.60) mcIU/mL Urine Color Urine Appearance Urine pH (5-9) Ur Specific [place] (1.010-1.030) Urine Protein (Negative) Urine Ketones (Negative) Urine Blood (Negative) Urine Nitrate (Negative) Urine Bilirubin (Negative) Urine Urobilinogen (Negative) Ur Leukocyte Esterase (Negative) Urine WBC (Auto) (Absent) Urine RBC (Auto) (Absent) Urine Bacteria (Absent) Urine Glucose (Negative) Urine Ascorbic Acid (Negative) Salicylates < 2.50 (<30) mg/dL Urine Opiates Screen (None Detect) Acetaminophen < 15 mcg/mL Ur Barbiturates Screen (None Detect) Ur Phencyclidine Scrn (None Detect) Ur Amphetamines Screen (None Detect) U Benzodiazepines Scrn (None Detect) Urine Cocaine Screen (None Detect) U Cannabinoids Screen (None Detect) Serum Alcohol < 10 (<10) mg/dL Result Diagrams: 03/19/19 14:34 03/19/19 14:34 Lab Statement: Any lab studies that have been ordered have been reviewed, and results considered in the medical decision making process. Course/Dx - Course Course Of Treatment: During the course of treatment, the patient is evaluated for disorganized thoughts and stating he would vomit if the cut is being released. He was seen here from correction. Per Dr. Mcdonald following evlauation, patient is OK for DC at this time and is at his baseline. 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 - Differential Dx/Clinical Impression Differential Diagnosis/HQI/PQRI: Positive: Acute Psychosis, Drug Overdose/ Intentional, Drug Overdose/Unintentional, Other - threats to others, manic behavior, hallucinations Provider Diagnosis: Hallucinations, Social isolation, Anxiety, Substance induced mood disorder, Paranoia, Malingering Discharge ED - Sign-Out/Discharge Documenting (check all that apply): Patient Departure - Discharge Plan Condition: Fair Disposition: LAW ENFORCEMENT/COURT Referrals: No Primary Care Phys,NOPCP [Primary Care Provider] - - Billing Disposition and Condition Condition: FAIR Disposition: Law Enforcement/Court - Attestation Statements Provider Attestation: pt seen by midlevel provider independently, based on their assessment, it was not necessary to present the case to me but I was available for consultation. I did not form a physician-patient relationship with the patient. The chart however, has been reviewed. am signing this note strictly in an administrative capacity.
[2019-03-19 19:16] VITALS: BP 127/82
== END 2019-03-19 19:15 ==
LOC: ED 13:39
DX: R44.3 Hallucinations, unspecified (principal); Z60.4 Social exclusion and rejection; F41.9 Anxiety disorder, unspecified; F39 Unspecified mood [affective] disorder; F22 Delusional disorders; Z76.5 Malingerer [conscious simulation]; E03.9 Hypothyroidism, unspecified; I10 Essential (primary) hypertension; Z79.899 Other long term (current) drug therapy; F17.210 Nicotine dependence, cigarettes, uncomplicated
CPT/HCPCS: 36415; 80053; 80307; 80320; 80329; 81003; 81015; 84443; 85025; 87086; 99285; G0480

== ENCOUNTER 2019-03-19 22:05 | Emergency (ER) | payer OTHER ==
[2019-03-19 22:56] LABS: ABS Basophils 0.1 10^3/ul (0-0.2); ABS Eosinophils 0.1 10^3/ul (0-0.6); ABS Lymphocytes 2.5 10^3/ul (1.0-4.8); ABS Monocytes 0.8 10^3/ul (0-0.8); ABS Neutrophils 6.7 10^3/ul (1.5-7.7); Eosinophil % 0.8 %; Hematocrit 44 % (42-52); Hemoglobin 14.6 g/dL (14.0-18.0); Mean Corpuscular HGB Conc 33 g/dL (31-36); Mean Corpuscular Hemoglobin 28 pg (27-31); Mean Corpuscular Volume 87 fL (80-94); Mean Platelet Volume 8.7 fL (7.4-10.4); Nucleated Red Blood Cells % 0.1; Platelet Count 253 10^3/uL (150-450); Red Blood Count 5.12 10^6 /uL (4.18-5.48); Red Cell Distribution Width 16 % (10-15); White Blood Count 10.2 10^3/uL (3.5-10.8)
[2019-03-19 23:17] LABS: ALT 17 U/L (7-52); AST 17 U/L (13-39); Albumin 4.7 g/dL (3.2-5.2); Albumin/Globulin Ratio 1.6 (1-3); Alkaline Phosphatase 69 U/L (34-104); Anion Gap 9 mmol/L (2-11); BUN/Creatinine Ratio 9.6 (8-20); Blood Urea Nitrogen 10 mg/dL (6-24); CO2 Carbon Dioxide 21 mmol/L (22-32); Calcium 9.7 mg/dL (8.6-10.3); Chloride 111 mmol/L (101-111); EGFR African American 102.2 (>60); EGFR Non-African American 84.4 (>60); Globulin 2.9 g/dL (2-4); Glucose 93 mg/dL (70-100); Potassium 3.3 mmol/L (3.5-5.0); Sodium 141 mmol/L (135-145); Total Protein 7.6 g/dL (6.4-8.9)
[2019-03-19 23:20] LABS: Acetaminophen < 15 mcg/mL; Alcohol < 10 mg/dL (<10); Salicylate < 2.50 mg/dL (<30)
[2019-03-19 23:26] LABS: Urine Benzodiazepine Screen None Detected (None Detect); Urine Opiates Screen None Detected (None Detect)
--- NOTE | 2019-03-20 00:12 | ED ---
Substance Abuse/Use - HPI Summary HPI Summary: Pt is a 29 y/o M presenting to the ED brought in by EMS for substance abuse. LEVEL 5 CAVEAT: Pts full hx and physical is unobtainable d/t intoxication. He states he took 48 pills of Coricidin, and he has so many things floating around his mind, that he does not know what to choose. He denies alcohol use, falling, or hitting his head. He states he was sober while he was in halfway. - History Of Current Complaint Chief Complaint: EDSubstanceAbuse Stated Complaint: OVERDOSE PER EMS Time Seen by Provider: 03/19/19 22:36 Hx Obtained From: Patient Hx From Patient Unobtainable Due To: Other - intoxication Ingestion History: Type/Name Of Drug - coricidin, Amount Ingested - 48 pills Overdose Characteristics: Oral Severity Initially: Moderate Severity Currently: Moderate Character: Stuporous Aggravating Factor(s): Nothing Alleviating Factor(s): Nothing Associated Signs And Symptoms: Hallucinating, Intentional Ingestion Related Hx: Prior Drug Abuse Counseling/Admission - Allergies/Home Medications Allergies/Adverse Reactions: Allergies Allergy/AdvReac Type Severity Reaction Status Date / Time No Known Allergies Allergy Verified 02/01/19 20:50 PMH/Surg Hx/FS Hx/Imm Hx Previously Healthy: No Endocrine/Hematology History: Reports: Hx Thyroid Disease - Hypothyroidism Denies: Hx Anticoagulant Therapy, Hx Blood Disorders, Hx Blood Transfusions, Hx Bone Marrow Disease, Hx Diabetes, Hx Systemic Lupus Erythematosus, Hx Sickle Cell Disease, Hx Anemia, Hx Unexplained Bleeding, Other Endocrine/Hematological Disorders Cardiovascular History: Reports: Hx Hypertension Denies: Hx Aneurysm, Hx Angina, Hx Angioplasty, Hx Auto Implanted Cardiovert Defib, Hx Cardiac Arrest, Hx Cardiomegaly, Hx Congenital Heart Disease, Hx Congestive Heart Failure, Hx Coronary Artery Disease, Hx Deep Vein Thrombosis, Hx Embolism, Hx Hypercholesterolemia, Hx Hypotension, Hx Pacemaker/ICD, Hx Peripheral Vascular Disease, Hx Rheumatic Fever, Hx Syncope, Hx Valvular Heart Disease, Other Cardiovascular Problems/Disorders Respiratory History: Reports: Hx Pneumonia, Hx Seasonal Allergies Denies: Hx Asthma, Hx Chronic Bronchitis, Hx Chronic Obstructive Pulmonary Disease (COPD), Hx Cystic Fibrosis, Hx Lung Cancer, Hx Pleural Effusion, Hx Pulmonary Edema, Hx Pulmonary Embolism, Hx Sleep Apnea, Other Respiratory Problems/Disorders GI History: Reports: Hx Ulcer Denies: Hx Cirrhosis, Hx Crohn's Disease, Hx Diverticulosis, Hx Gall Bladder Disease, Hx Gastroesophageal Reflux Disease, Hx Gastrointestinal Bleed, Hx Hiatal Hernia, Hx Irritable Bowel, Hx Jaundice, Hx Obstructive Bowel, Hx Ileostomy, Hx Pyloric Stenosis, Other GI Disorders History: Denies: Hx Acute Renal Failure, Hx Benign Prostatic Hyperplasia, Hx Chronic Renal Failure, Hx Dialysis, Hx Kidney Infection, Hx Kidney Stones, Hx Renal Disease, Other Problems/Disorders Musculoskeletal History: Denies: Hx Arthritis, Hx Back Problems, Hx Bursitis, Hx Congenital Bone Abnormalities, Hx Fibromyalgia, Hx Gout, Hx Orthopedic Injury, Hx Osteoporosis, Hx Scoliosis, Hx Tendonitis, Other Musculoskeletal History Sensory History: Denies: Hx Cataracts, Hx Contacts or Glasses, Hx Eye Injury, Hx Eye Prosthesis, Hx Glaucoma, Hx Legally Blind, Hx Macular Degeneration, Hx Vision Problem, Hx Deafness, Hx Hearing Aid, Other Sensory Impairments Opthamlomology History: Denies: Hx Cataracts, Hx Contacts or Glasses, Hx Eye Injury, Hx Eye Prosthesis, Hx Glaucoma, Hx Legally Blind, Hx Macular Degeneration, Hx Vision Problem, Other Sensory Impairments Neurological History: Reports: Hx Headaches, Hx Seizures Denies: Hx Dementia, Hx Developmental Delay, Hx Migraine, Hx Nerve Disease, Hx Spinal Cord Injury, Hx Transient Ischemic Attacks (TIA), Other Neuro Impairments/Disorders Psychiatric History: Reports: Hx Anxiety, Hx Depression, Hx Post Traumatic Stress Disorder, Hx Inpatient Treatment, Hx Community Mental Health Tx, Hx Bipolar Disorder, Hx of Violent Episodes Against Others, Hx Substance Abuse, Other Psychiatric Issues/Disorders Denies: Hx Attention Deficit Hyperactivity Disorder, Hx Eating Disorder, Hx Panic Disorder, Hx Schizophrenia, Hx Suicide Attempt - Cancer History Cancer Type, Location and Year: None reported - Surgical History Surgery Procedure, Year, and Place: none Hx Anesthesia Reactions: No - Immunization History Date of Tetanus Vaccine: Unknown Date of Influenza Vaccine: None Infectious Disease History: No Infectious Disease History: Reports: Hx Hepatitis - Hep C Denies: Hx Clostridium Difficile, Hx Human Immunodeficiency Virus (HIV), Hx of Known/Suspected MRSA, Hx Shingles, Hx Tuberculosis, Hx Known/Suspected VRE, Hx Known/Suspected VRSA, History Other Infectious Disease, Traveled Outside the [place] in Last 30 Days - Family History Known Family History: Positive: Other - cancer Negative: Renal Disease Family History: father - ETOH - Social History Alcohol Use: Daily Alcohol Amount: beers Hx Substance Use: Yes Substance Use Type: Reports: Cocaine, Prescribed, Other Substance Use Comment - Amount & Last Used: Multiple Coricidin overdose Hx Tobacco Use: Yes Smoking Status (MU): Heavy Every Day Tobacco Smoker Type: Cigarettes Have You Smoked in the Last Year: Yes Review of Systems Neurological: Negative - hitting his head All Other Systems Reviewed And Are Negative: No Physical Exam - Summary Physical Exam Summary: Constitutional: Well-developed, Well-nourished, Alert. (-) Distressed Skin: Warm, Dry HENT: Normocephalic; Atraumatic Eyes: Conjunctiva normal Neck: Musculoskeletal ROM normal neck. (-) JVD, (-) Stridor, (-) Tracheal deviation Cardio: Rhythm regular, rate tachycardic, Heart sounds normal; Intact distal pulses. Radial pulses are 2+ and symmetric. (-) Murmur Pulmonary/Chest wall: Effort normal. (-) Respiratory distress, (-) Wheezes, (-) Rales Abd: Soft, (-) tenderness, (-) Distension, (-) Guarding, (-) Rebound Musculoskeletal: (-) Edema Lymph: (-) Cervical adenopathy Neuro: Alert, Oriented x3. Pt is picking at the júnior, seemingly having visual hallucinations. Slurred speech, answering questions appropriately. Psych: Mood and affect Normal Triage Information Reviewed: Yes Vital Signs On Initial Exam: Initial Vitals Temp Pulse Resp BP Pulse Ox 99.3 F 145 19 132/87 96 03/19/19 22:10 03/19/19 22:10 03/19/19 22:10 03/19/19 22:10 03/19/19 22:10 Vital Signs Reviewed: Yes Completion Of Physical Exam Limited Due To: Level 5 Procedures - Sedation Patient Received Moderate/Deep Sedation with Procedure: No Diagnostics - Vital Signs Vital Signs Temp Pulse Resp BP Pulse Ox 03/19/19 23:00 24 03/19/19 22:28 26 142/93 03/19/19 22:22 130 30 95 03/19/19 22:10 99.3 F 145 19 132/87 96 - Laboratory Lab Results: Lab Results 03/19/19 03/19/19 03/19/19 Range/Units 22:48 22:48 22:48 WBC 10.2 (3.5-10.8) 10^3/uL RBC 5.12 (4.18-5.48) 10^6 /uL Hgb 14.6 (14.0-18.0) g/dL Hct 44 (42-52) % MCV 87 (80-94) fL MCH 28 (27-31) pg MCHC 33 (31-36) g/dL RDW 16 H (10-15) % Plt Count 253 (150-450) 10^3/uL MPV 8.7 (7.4-10.4) fL Neut % (Auto) 65.7 % Lymph % (Auto) 25.0 % [facility] [place] % (Auto) 7.9 % Eos % (Auto) 0.8 % Baso % (Auto) 0.6 % Absolute Neuts (auto) 6.7 (1.5-7.7) 10^3/ul Absolute Lymphs (auto) 2.5 (1.0-4.8) 10^3/ul Absolute Monos (auto) 0.8 (0-0.8) 10^3/ul Absolute Eos (auto) 0.1 (0-0.6) 10^3/ul Absolute Basos (auto) 0.1 (0-0.2) 10^3/ul Absolute Nucleated RBC 0.0 10^3/ul Nucleated RBC % 0.1 VBG pH 7.40 (7.32-7.43) VBG pCO2 35 L (41-51) mmHg VBG pO2 81.0 H (35-45) mmHg VBG HCO3 23.0 L (24-28) mmol/L VBG O2 Saturation 97.9 H (70-80) % VBG Base Excess -2.5 L (0.0-4.0) mmol/L Sodium 141 (135-145) mmol/L Potassium 3.3 L (3.5-5.0) mmol/L Chloride 111 (101-111) mmol/L Carbon Dioxide 21 L (22-32) mmol/L Anion Gap 9 (2-11) mmol/L BUN 10 (6-24) mg/dL Creatinine 1.04 (0.67-1.17) mg/dL Est GFR ( Amer) 102.2 (>60) Est GFR (Non-Af Amer) 84.4 (>60) BUN/Creatinine Ratio 9.6 (8-20) Glucose 93 (70-100) mg/dL Calcium 9.7 (8.6-10.3) mg/dL Total Bilirubin 0.30 (0.2-1.0) mg/dL AST 17 (13-39) U/L ALT 17 (7-52) U/L Alkaline Phosphatase 69 (34-104) U/L Total Protein 7.6 (6.4-8.9) g/dL Albumin 4.7 (3.2-5.2) g/dL Globulin 2.9 (2-4) g/dL Albumin/Globulin Ratio 1.6 (1-3) Salicylates < 2.50 (<30) mg/dL Urine Opiates Screen (None Detect) Acetaminophen < 15 mcg/mL Ur Barbiturates Screen (None Detect) Ur Phencyclidine Scrn (None Detect) Ur Amphetamines Screen (None Detect) U Benzodiazepines Scrn (None Detect) Urine Cocaine Screen (None Detect) U Cannabinoids Screen (None Detect) Serum Alcohol < 10 (<10) mg/dL 03/19/19 Range/Units 22:55 WBC (3.5-10.8) 10^3/uL RBC (4.18-5.48) 10^6 /uL Hgb (14.0-18.0) g/dL Hct (42-52) % MCV (80-94) fL MCH (27-31) pg MCHC (31-36) g/dL RDW (10-15) % Plt Count (150-450) 10^3/uL MPV (7.4-10.4) fL Neut % (Auto) % Lymph % (Auto) % [facility] [place] [facility] % (Auto) % Eos % (Auto) % Baso % (Auto) % Absolute Neuts (auto) (1.5-7.7) 10^3/ul Absolute Lymphs (auto) (1.0-4.8) 10^3/ul Absolute Monos (auto) (0-0.8) 10^3/ul Absolute Eos (auto) (0-0.6) 10^3/ul Absolute Basos (auto) (0-0.2) 10^3/ul Absolute Nucleated RBC 10^3/ul Nucleated RBC % VBG pH (7.32-7.43) VBG pCO2 (41-51) mmHg VBG pO2 (35-45) mmHg VBG HCO3 (24-28) mmol/L VBG O2 Saturation (70-80) % VBG Base Excess (0.0-4.0) mmol/L Sodium (135-145) mmol/L Potassium (3.5-5.0) mmol/L Chloride (101-111) mmol/L Carbon Dioxide (22-32) mmol/L Anion Gap (2-11) mmol/L BUN (6-24) mg/dL Creatinine (0.67-1.17) mg/dL Est GFR ( Amer) (>60) Est GFR (Non-Af Amer) (>60) BUN/Creatinine Ratio (8-20) Glucose (70-100) mg/dL Calcium (8.6-10.3) mg/dL Total Bilirubin (0.2-1.0) mg/dL AST (13-39) U/L ALT (7-52) U/L Alkaline Phosphatase (34-104) U/L Total Protein (6.4-8.9) g/dL Albumin (3.2-5.2) g/dL Globulin (2-4) g/dL Albumin/Globulin Ratio (1-3) Salicylates (<30) mg/dL Urine Opiates Screen None detected (None Detect) Acetaminophen mcg/mL Ur Barbiturates Screen None detected (None Detect) Ur Phencyclidine Scrn Presumptive positive A (None Detect) Ur Amphetamines Screen None detected (None Detect) U Benzodiazepines Scrn None detected (None Detect) Urine Cocaine Screen None detected (None Detect) U Cannabinoids Screen None detected (None Detect) Serum Alcohol (<10) mg/dL Result Diagrams: 03/19/19 22:48 03/19/19 22:48 Lab Statement: Any lab studies that have been ordered have been reviewed, and results considered in the medical decision making process. - EKG 2248 Cardiac Rate: Tachycardia - 113bpm EKG Rhythm: Sinus Tachycardia ST Segment: Normal Ectopy: None Summary of EKG Findings: EKG at 2248 shows sinus tachycardia at 113bpm. No interval changes. Course/Dx - Course Course Of Treatment: Patient is here with Coricidin intoxication. Patient is well-known to the emergency department. Patient had a tox workup which showed a UDS positive for PCP which is likely cross reaction from the extremity or fan. Patient was monitored overnight until he was clinically stable. Patient was given a list of the meetings to attend. Patient has mental health court on Monday and was encouraged to attend that. - Diagnoses Provider Diagnoses: Overdose, Depression, Tachycardia Discharge ED - Sign-Out/Discharge Documenting (check all that apply): Patient Departure - Discharge Plan Condition: Stable Disposition: HOME Patient Education Materials: Polysubstance Abuse (ED) Referrals: Care [facility] [Outside] ALCOHOLICS ANONYMOUS [Outside] Additional Instructions: Please follow up with your primary care provider and alcoholics anonymous in 1- 3 days. Return to the emergency department with any new or worsening symptoms. - Billing Disposition and Condition Condition: STABLE Disposition: Home - Attestation Statements Document Initiated by Scribe: Yes Documenting Scribe: Polly Boateng Provider For Whom Mario is Documenting (Include Credential): Marlon Wall MD. Scribe Attestation: Polly Brunner, scribed for Marlon Wall MD. on 03/20/19 at 0654. Scribe Documentation Reviewed: Yes Provider Attestation: The documentation as recorded by the scribPolly yuan accurately reflects the service I personally performed and the decisions made by Marlon mayen MD. Status of Scribe Document: Viewed
[2019-03-20 09:01] VITALS: BP 00/00
== END 2019-03-20 08:55 | disposition home or self-care (01) ==
LOC: ED 22:05
DX: T48.5X2A Poisoning by other anti-common-cold drugs, intentional self-harm, initial encounter (principal); R44.1 Visual hallucinations; R47.81 Slurred speech; Y92.9 Unspecified place or not applicable; F32.9 Major depressive disorder, single episode, unspecified; R00.0 Tachycardia, unspecified; I10 Essential (primary) hypertension; F17.210 Nicotine dependence, cigarettes, uncomplicated
CPT/HCPCS: 36415; 80053; 80307; 80320; 80329; 82803; 85025; 93005; 99283; G0480

== ENCOUNTER 2019-05-21 15:05 | Emergency (ER) | payer OTHER ==
[2019-05-21] MEDS ORDERED: NS 0.9% 1000 ML** 1,000 ML IV ONE ×2 (15:09)
[2019-05-21 15:49] LABS: ABS Basophils 0.1 10^3/ul (0-0.2); ABS Eosinophils 0.1 10^3/ul (0-0.6); ABS Lymphocytes 1.9 10^3/ul (1.0-4.8); ABS Monocytes 0.6 10^3/ul (0-0.8); ABS Neutrophils 8.9 10^3/ul (1.5-7.7); Eosinophil % 0.9 %; Hematocrit 50 % (42-52); Hemoglobin 16.2 g/dL (14.0-18.0); Lymphocyte % 16.5 %; Mean Corpuscular HGB Conc 33 g/dL (31-36); Mean Corpuscular Hemoglobin 28 pg (27-31); Mean Corpuscular Volume 87 fL (80-94); Mean Platelet Volume 8.8 fL (7.4-10.4); Nucleated Red Blood Cells % 0.1; Platelet Count 179 10^3/uL (150-450); Red Blood Count 5.73 10^6 /uL (4.18-5.48); Red Cell Distribution Width 16 % (10-15); White Blood Count 11.6 10^3/uL (3.5-10.8)
--- NOTE | 2019-05-21 15:49 | ED ---
Substance Abuse/Use - HPI Summary HPI Summary: Patient is a 29 y/o M presenting to the ED via EMS and state police for a chief complaint of substance abuse. Per state police, patient arrived to the [place] police station to turn himself in for a warrant that was out for his arrest. While at the station, the patient began to have facial erythema and began to appear intoxicated. 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 Patient denies fever or myalgia. State police report the patient was previously in outpatient rehab in [place], but he checked himself out. Patient has been seen numerous times for similar ingestions in the past. 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 Overdose Characteristics: Oral Timing Of Abuse: Binge Use Severity Initially: Moderate Severity Currently: Moderate Associated Signs And Symptoms: Intentional Ingestion, Other: - Negative fever or myalgia Related Hx: Prior Psych Admission - Allergies/Home Medications Allergies/Adverse Reactions: Allergies Allergy/AdvReac Type Severity Reaction Status Date / Time No Known Allergies Allergy Verified 02/01/19 20:50 PMH/Surg Hx/FS Hx/Imm Hx Previously Healthy: Yes Endocrine/Hematology History: Reports: Hx Thyroid Disease - Hypothyroidism Denies: Hx Anticoagulant Therapy, Hx Blood Disorders, Hx Blood Transfusions, Hx Bone Marrow Disease, Hx Diabetes, Hx Systemic Lupus Erythematosus, Hx Sickle Cell Disease, Hx Anemia, Hx Unexplained Bleeding, Other Endocrine/Hematological Disorders Cardiovascular History: Reports: Hx Hypertension Denies: Hx Aneurysm, Hx Angina, Hx Angioplasty, Hx Auto Implanted Cardiovert Defib, Hx Cardiac Arrest, Hx Cardiomegaly, Hx Congenital Heart Disease, Hx Congestive Heart Failure, Hx Coronary Artery Disease, Hx Deep Vein Thrombosis, Hx Embolism, Hx Hypercholesterolemia, Hx Hypotension, Hx Pacemaker/ICD, Hx Peripheral Vascular Disease, Hx Rheumatic Fever, Hx Syncope, Hx Valvular Heart Disease, Other Cardiovascular Problems/Disorders Respiratory History: Reports: Hx Pneumonia, Hx Seasonal Allergies Denies: Hx Asthma, Hx Chronic Bronchitis, Hx Chronic Obstructive Pulmonary Disease (COPD), Hx Cystic Fibrosis, Hx Lung Cancer, Hx Pleural Effusion, Hx Pulmonary Edema, Hx Pulmonary Embolism, Hx Sleep Apnea, Other Respiratory Problems/Disorders GI History: Reports: Hx Ulcer Denies: Hx Cirrhosis, Hx Crohn's Disease, Hx Diverticulosis, Hx Gall Bladder Disease, Hx Gastroesophageal Reflux Disease, Hx Gastrointestinal Bleed, Hx Hiatal Hernia, Hx Irritable Bowel, Hx Jaundice, Hx Obstructive Bowel, Hx Ileostomy, Hx Pyloric Stenosis, Other GI Disorders History: Denies: Hx Acute Renal Failure, Hx Benign Prostatic Hyperplasia, Hx Chronic Renal Failure, Hx Dialysis, Hx Kidney Infection, Hx Kidney Stones, Hx Renal Disease, Other Problems/Disorders Musculoskeletal History: Denies: Hx Arthritis, Hx Back Problems, Hx Bursitis, Hx Congenital Bone Abnormalities, Hx Fibromyalgia, Hx Gout, Hx Orthopedic Injury, Hx Osteoporosis, Hx Scoliosis, Hx Tendonitis, Other Musculoskeletal History Sensory History: Denies: Hx Cataracts, Hx Contacts or Glasses, Hx Eye Injury, Hx Eye Prosthesis, Hx Glaucoma, Hx Legally Blind, Hx Macular Degeneration, Hx Vision Problem, Hx Deafness, Hx Hearing Aid, Other Sensory Impairments Opthamlomology History: Denies: Hx Cataracts, Hx Contacts or Glasses, Hx Eye Injury, Hx Eye Prosthesis, Hx Glaucoma, Hx Legally Blind, Hx Macular Degeneration, Hx Vision Problem, Other Sensory Impairments EENT History: Denies: Hx Deafness Neurological History: Reports: Hx Headaches, Hx Seizures Denies: Hx Dementia, Hx Developmental Delay, Hx Migraine, Hx Nerve Disease, Hx Spinal Cord Injury, Hx Transient Ischemic Attacks (TIA), Other Neuro Impairments/Disorders Psychiatric History: Reports: Hx Anxiety, Hx Depression, Hx Post Traumatic Stress Disorder, Hx Inpatient Treatment, Hx Community Mental Health Tx, Hx Bipolar Disorder, Hx of Violent Episodes Against Others, Hx Substance Abuse, Other Psychiatric Issues/Disorders Denies: Hx Attention Deficit Hyperactivity Disorder, Hx Eating Disorder, Hx Panic Disorder, Hx Schizophrenia, Hx Suicide Attempt - Cancer History Cancer Type, Location and Year: None reported - Surgical History Surgical History: None Surgery Procedure, Year, and Place: none Hx Anesthesia Reactions: No - Immunization History Date of Tetanus Vaccine: Unknown Date of Influenza Vaccine: None Infectious Disease History: Reports: Hx Hepatitis - Hep C Denies: Hx Clostridium Difficile, Hx Human Immunodeficiency Virus (HIV), Hx of Known/Suspected MRSA, Hx Shingles, Hx Tuberculosis, Hx Known/Suspected VRE, Hx Known/Suspected VRSA, History Other Infectious Disease, Traveled Outside the [place] in Last 30 Days - Family History Known Family History: Positive: Other - cancer Negative: Renal Disease Family History: father - ETOH - Social History Occupation: Unemployed Lives: Alone Alcohol Use: Daily Alcohol Amount: beers Hx Substance Use: Yes Substance Use Type: Reports: Cocaine, Prescribed, Other Substance Use Comment - Amount & Last Used: Multiple Coricidin overdose Hx Tobacco Use: Yes Smoking Status (MU): Heavy Every Day Tobacco Smoker Type: Cigarettes Have You Smoked in the Last Year: Yes Review of Systems Negative: Fever Negative: Myalgia Positive: Other - Positive facial erythema All Other Systems Reviewed And Are Negative: Yes Physical Exam - Summary Physical Exam Summary: Constitutional: Well-developed, Well-nourished, Alert. (-) Distressed. Flushing of the skin. Skin: Warm, Dry HENT: Normocephalic; Atraumatic Eyes: Conjunctiva normal Neck: Musculoskeletal ROM normal neck. (-) JVD, (-) Stridor, (-) Nuchal rigidity Cardio: Tachycardic. Rhythm regular, Heart sounds normal; Intact distal pulses; Radial pulses are 2+ and symmetric. (-) Murmur. Pulmonary/Chest wall: Effort normal. (-) Respiratory distress, (-) Wheezes, (-) Rales Abd: Soft, (-) tenderness, (-) Distension, (-) Guarding, (-) Rebound Musculoskeletal: (-) Edema Lymph: (-) Cervical adenopathy Neuro: Alert, Oriented x3 Psych: Mood and affect Normal Triage Information Reviewed: Yes Vital Signs On Initial Exam: Initial Vitals Temp Pulse Resp BP Pulse Ox 99.4 F 123 20 146/101 96 05/21/19 15:15 05/21/19 15:15 05/21/19 15:15 05/21/19 15:15 05/21/19 15:15 Vital Signs Reviewed: Yes Procedures - Sedation Patient Received Moderate/Deep Sedation with Procedure: No Diagnostics - Vital Signs Vital Signs Temp Pulse Resp BP Pulse Ox 05/21/19 15:15 99.4 F 123 20 146/101 96 - Laboratory Result Diagrams: 05/21/19 15:19 05/21/19 15:19 Lab Statement: Any lab studies that have been ordered have been reviewed, and results considered in the medical decision making process. - EKG 15:23 Cardiac Rate: Tachycardia - 121 BPM EKG Rhythm: Sinus Tachycardia ST Segment: Normal Ectopy: None Summary of EKG Findings: An EKG at 15:23 reveals sinus tachycardia with 121 BPM with artefact, nml axis, nml intervals. No STEMI. No acute changes. Reviewed and interpreted by Dr. Marques. Re-Evaluation - Re-Evaluation First Eval Re-Evaluation Time: 15:45 Change: Unchanged Comment: At 15:45, Poison Control recommends cardiac monitoring for at least 6 hours or until symptoms resolve. Second Re-Evaluation Time: 18:48 Change: Improved Comment: At 18:48, patient is alert and oriented, ambulating, and does not appear intoxicated. Course/Dx - Course Course Of Treatment: 29 y/o male w hx substance use presents for medical clearance for coricidin cough syrup overdose. - VS initially tachycardic. 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 Took 48 pills. - hx of similar in past. Plan for IVF, observation for 6 hours post ingestion (3 hours post arrival), tox labs - Diagnoses Provider Diagnoses: Substance abuse Discharge ED - Sign-Out/Discharge Documenting (check all that apply): Patient Departure - Discharge - Discharge Plan Condition: Stable Disposition: HOME Patient Education Materials: Polysubstance Abuse (ED) Referrals: Care [facility] [Outside] Additional Instructions: You were seen in the emergency department for substance use. If any studies were not completed at the time of discharge you will be called with the relevant results. Please follow up with your primary care doctor in next 2-3 days and return to emergency department for worsening or concerning symptoms. It was a pleasure taking care of you today. - Billing Disposition and Condition Condition: STABLE Disposition: Home - Attestation Statements Document Initiated by Shelleyiblissy: Yes Documenting Scribe: Shira De Oliveira Provider For Whom Mario is Documenting (Include Credential): Javon Marques MD Scribe Attestation: I, Shira De Oliveira, scribed for Javon Marques MD on 05/22/19 at 1004. Scribe Documentation Reviewed: Yes Provider Attestation: The documentation as recorded by the Shira fournier accurately reflects the service I personally performed and the decisions made by me, Javon Marques MD Status of Scribe Document: Viewed
[2019-05-21 15:55] LABS: ALT 32 U/L (7-52); AST 22 U/L (13-39); Albumin 4.9 g/dL (3.2-5.2); Albumin/Globulin Ratio 1.4 (1-3); Alkaline Phosphatase 74 U/L (34-104); Anion Gap 11 mmol/L (2-11); BUN/Creatinine Ratio 12.7 (8-20); Blood Urea Nitrogen 14 mg/dL (6-24); CO2 Carbon Dioxide 22 mmol/L (22-32); Calcium 10.4 mg/dL (8.6-10.3); Chloride 106 mmol/L (101-111); EGFR African American 95.8 (>60); EGFR Non-African American 79.1 (>60); Globulin 3.5 g/dL (2-4); Glucose 86 mg/dL (70-100); Potassium 3.7 mmol/L (3.5-5.0); Sodium 139 mmol/L (135-145); Total Protein 8.4 g/dL (6.4-8.9)
[2019-05-21 16:19] LABS: Acetaminophen < 15 mcg/mL; Alcohol < 10 mg/dL (<10); Salicylate < 2.50 mg/dL (<30)
[2019-05-21 18:58] VITALS: BP 154/107
== END 2019-05-21 19:02 | disposition home or self-care (01) ==
LOC: ED 15:05
DX: F19.10 Other psychoactive substance abuse, uncomplicated (principal); E03.9 Hypothyroidism, unspecified; I10 Essential (primary) hypertension; F41.9 Anxiety disorder, unspecified; F32.9 Major depressive disorder, single episode, unspecified; F43.10 Post-traumatic stress disorder, unspecified; F17.210 Nicotine dependence, cigarettes, uncomplicated
CPT/HCPCS: 36415; 80053; 80320; 80329; 85025; 93005; 96360; 99283; G0480

== ENCOUNTER 2019-07-18 14:37 | Emergency (ER) | payer OTHER ==
--- NOTE | 2019-07-18 14:55 | ED ---
Substance Abuse/Use - HPI Summary HPI Summary: 29 year old M arriving via ambulance complains of ingesting 48 Coricidin tablets at 11:00 today 07/18/2019. Patient states he was trying to get high. He denies suicidal ideation. Patient denies ETOH. Patient denies fever, chills, erythema of eyes, sore throat, chest pain, shortness of breath, cough, abdominal pain, nausea/vomiting, dysuria, hematuria, myalgia, edema, rash, or dizziness. Medications reviewed. Allergies noted. Patient states he lives at [facility]. Patient recently released from incarceration where he was being held for [employer]. - History Of Current Complaint Chief Complaint: EDOverdose Stated Complaint: OVERDOSE PER EMS Time Seen by Provider: 07/18/19 14:49 Hx Obtained From: Patient, EMS Ingestion History: Type/Name Of Drug - Coricidin, Amount Ingested - 48 tablets Overdose Characteristics: Oral Aggravating Factor(s): Nothing Alleviating Factor(s): Nothing Associated Signs And Symptoms: Negative - fever, chills, erythema of eyes, sore throat, chest pain, shortness of breath, cough, abdominal pain, nausea/vomiting , dysuria, hematuria, myalgia, edema, rash, or dizziness - Allergies/Home Medications Allergies/Adverse Reactions: Allergies Allergy/AdvReac Type Severity Reaction Status Date / Time No Known Allergies Allergy Verified 02/01/19 20:50 Home Medications: Home Medications NK [No Home Medications Reported] 07/18/19 [History Confirmed 07/18/19] PMH/Surg Hx/FS Hx/Imm Hx Endocrine/Hematology History: Reports: Hx Thyroid Disease - Hypothyroidism Denies: Hx Anticoagulant Therapy, Hx Blood Disorders, Hx Blood Transfusions, Hx Bone Marrow Disease, Hx Diabetes, Hx Systemic Lupus Erythematosus, Hx Sickle Cell Disease, Hx Anemia, Hx Unexplained Bleeding, Other Endocrine/Hematological Disorders Cardiovascular History: Reports: Hx Hypertension Denies: Hx Aneurysm, Hx Angina, Hx Angioplasty, Hx Auto Implanted Cardiovert Defib, Hx Cardiac Arrest, Hx Cardiomegaly, Hx Congenital Heart Disease, Hx Congestive Heart Failure, Hx Coronary Artery Disease, Hx Deep Vein Thrombosis, Hx Embolism, Hx Hypercholesterolemia, Hx Hypotension, Hx Pacemaker/ICD, Hx Peripheral Vascular Disease, Hx Rheumatic Fever, Hx Syncope, Hx Valvular Heart Disease, Other Cardiovascular Problems/Disorders Respiratory History: Reports: Hx Pneumonia, Hx Seasonal Allergies Denies: Hx Asthma, Hx Chronic Bronchitis, Hx Chronic Obstructive Pulmonary Disease (COPD), Hx Cystic Fibrosis, Hx Lung Cancer, Hx Pleural Effusion, Hx Pulmonary Edema, Hx Pulmonary Embolism, Hx Sleep Apnea, Other Respiratory Problems/Disorders GI History: Reports: Hx Ulcer Denies: Hx Cirrhosis, Hx Crohn's Disease, Hx Diverticulosis, Hx Gall Bladder Disease, Hx Gastroesophageal Reflux Disease, Hx Gastrointestinal Bleed, Hx Hiatal Hernia, Hx Irritable Bowel, Hx Jaundice, Hx Obstructive Bowel, Hx Ileostomy, Hx Pyloric Stenosis, Other GI Disorders History: Denies: Hx Acute Renal Failure, Hx Benign Prostatic Hyperplasia, Hx Chronic Renal Failure, Hx Dialysis, Hx Kidney Infection, Hx Kidney Stones, Hx Renal Disease, Other Problems/Disorders Musculoskeletal History: Denies: Hx Arthritis, Hx Back Problems, Hx Bursitis, Hx Congenital Bone Abnormalities, Hx Fibromyalgia, Hx Gout, Hx Orthopedic Injury, Hx Osteoporosis, Hx Scoliosis, Hx Tendonitis, Other Musculoskeletal History Sensory History: Denies: Hx Cataracts, Hx Contacts or Glasses, Hx Eye Injury, Hx Eye Prosthesis, Hx Glaucoma, Hx Legally Blind, Hx Macular Degeneration, Hx Vision Problem, Hx Deafness, Hx Hearing Aid, Other Sensory Impairments Opthamlomology History: Denies: Hx Cataracts, Hx Contacts or Glasses, Hx Eye Injury, Hx Eye Prosthesis, Hx Glaucoma, Hx Legally Blind, Hx Macular Degeneration, Hx Vision Problem, Other Sensory Impairments Neurological History: Reports: Hx Headaches, Hx Seizures Denies: Hx Dementia, Hx Developmental Delay, Hx Migraine, Hx Nerve Disease, Hx Spinal Cord Injury, Hx Transient Ischemic Attacks (TIA), Other Neuro Impairments/Disorders Psychiatric History: Reports: Hx Anxiety, Hx Depression, Hx Post Traumatic Stress Disorder, Hx Inpatient Treatment, Hx Community Mental Health Tx, Hx Bipolar Disorder, Hx of Violent Episodes Against Others, Hx Substance Abuse, Other Psychiatric Issues/Disorders Denies: Hx Attention Deficit Hyperactivity Disorder, Hx Eating Disorder, Hx Panic Disorder, Hx Schizophrenia, Hx Suicide Attempt - Cancer History Cancer Type, Location and Year: None reported Hx Chemotherapy: No Hx Radiation Therapy: No - Surgical History Surgery Procedure, Year, and Place: none Hx Anesthesia Reactions: No - Immunization History Date of Tetanus Vaccine: Unknown Date of Influenza Vaccine: None Infectious Disease History: No Infectious Disease History: Reports: Hx Hepatitis - Hep C Denies: Hx Clostridium Difficile, Hx Human Immunodeficiency Virus (HIV), Hx of Known/Suspected MRSA, Hx Shingles, Hx Tuberculosis, Hx Known/Suspected VRE, Hx Known/Suspected VRSA, History Other Infectious Disease, Traveled Outside the [place] in Last 30 Days - Family History Known Family History: Positive: Other - cancer Negative: Renal Disease Family History: father - ETOH - Social History Alcohol Use: Daily Alcohol Amount: beers Hx Substance Use: Yes Substance Use Type: Reports: Cocaine, Prescribed, Other Substance Use Comment - Amount & Last Used: Multiple Coricidin overdose Hx Tobacco Use: Yes Smoking Status (MU): Heavy Every Day Tobacco Smoker Type: Cigarettes Have You Smoked in the Last Year: Yes Review of Systems Negative: Fever, Chills Negative: Erythema Negative: Sore Throat Negative: Chest Pain Negative: Shortness Of Breath, Cough Positive: Other - ingesting Coricidin tablets. Negative: Abdominal Pain, Vomiting, Nausea Negative: dysuria, hematuria Negative: Myalgia, Edema Negative: Rash Neurological: Negative - Dizziness Positive: Other - NEG: suicidal ideation All Other Systems Reviewed And Are Negative: Yes Physical Exam - Summary Physical Exam Summary: Constitutional: Well-developed, Well-nourished, Alert. (-) Distressed. Patient has stammering speech. Skin: Warm, Dry HENT: Normocephalic; Atraumatic Eyes: Conjunctiva normal; mild nystagmus Neck: Musculoskeletal ROM normal neck. (-) JVD, (-) Stridor, (-) Tracheal deviation Cardio: Rhythm regular, rate normal, Heart sounds normal; Intact distal pulses; The pedal pulses are 2+ and symmetric. Radial pulses are 2+ and symmetric. (-) Murmur Pulmonary/Chest wall: Effort normal. (-) Respiratory distress, (-) Wheezes, (-) Rales Abd: Soft, (-) tenderness, (-) Distension, (-) Guarding, (-) Rebound Musculoskeletal: (-) Edema Lymph: (-) Cervical adenopathy Neuro: Alert, Oriented x3 Psych: Mood and affect Normal Triage Information Reviewed: Yes Vital Signs On Initial Exam: Initial Vitals Temp Pulse Resp BP Pulse Ox 97.3 F 95 16 147/101 97 07/18/19 14:38 07/18/19 14:38 07/18/19 14:38 07/18/19 14:38 07/18/19 14:38 Vital Signs Reviewed: Yes Procedures - Sedation Patient Received Moderate/Deep Sedation with Procedure: No Diagnostics - Vital Signs Vital Signs Temp Pulse Resp BP Pulse Ox 07/18/19 14:38 97.3 F 95 16 147/101 97 - Laboratory Result Diagrams: 07/18/19 15:04 07/18/19 15:04 Lab Statement: Any lab studies that have been ordered have been reviewed, and results considered in the medical decision making process. - EKG 1458 Cardiac Rate: NL - 89 BPM EKG Rhythm: Sinus Rhythm Summary of EKG Findings: Sinus rhythm 89 BPM. QTc 457. No STEMI. ED physician has reviewed and interpreted this EKG. Re-Evaluation - Re-Evaluation First Eval Re-Evaluation Time: 18:44 Change: Improved Comment: patient is ambulating steadily in the ED. HR 90s. speech is clear Course/Dx - Course Course Of Treatment: 29 year old M arriving via ambulance complains of ingesting 48 Coricidin tablets at 11:00 today 07/18/2019. Hx Coricidin overdose. Patient states he was trying to get high. Patient denies ETOH. Denies suicidal ideation. Patient states he lives at [facility]. Patient recently released from incarceration. Upon exam the patient has mild nystagmus and stammering speech. Patient placed on bridge maintainer. EKG shows sinus rhythm 89 BPM, QTc 457, No STEMI. Bloodwork results with no significant abnormalities except for absolute monos 0.9. Urinalysis results with no significant abnormalities except for specific gravity 1.002. Toxicology results positive for phencyclidine. Patient is ambulating steadily in the ED. HR improved to the 90s. Speech is clear. Patient will be discharged home with follow up from [facility], [facility], and [facility] in 3 days. Patient was instructed to return to Emergency Department for new or worsening symptoms. Patient understands and is agreeable to this plan. - Diagnoses Provider Diagnoses: Drug intoxication, Polysubstance abuse Discharge ED - Sign-Out/Discharge Documenting (check all that apply): Patient Departure - Discharge Plan Condition: Stable Disposition: HOME Patient Education Materials: Polysubstance Abuse (ED) Referrals: [facility] of [facility] [Outside] - 3 Days [facility] [Outside] - 3 Days [facility] [Outside] - 3 Days Additional Instructions: Follow up with [facility], [facility], and [facility] in 3 days. Return to the Emergency Department for new or worsening symptoms. - Attestation Statements Document Initiated by Scribe: Yes Documenting Scribe: Deb Duncan Provider For Whom Scribe is Documenting (Include Credential): Javed Felipe MD Scribe Attestation: IDeb, scribed for Javed Felipe MD on 07/18/19 at 1848. Status of Scribe Document: Ready
[2019-07-18 15:19] LABS: ABS Basophils 0.1 10^3/ul (0-0.2); ABS Lymphocytes 2.1 10^3/ul (1.0-4.8); ABS Monocytes 0.9 10^3/ul (0-0.8); ABS Neutrophils 7.4 10^3/ul (1.5-7.7); Eosinophil % 0.1 %; Hematocrit 47 % (42-52); Lymphocyte % 20.2 %; Mean Corpuscular HGB Conc 34 g/dL (31-36); Mean Corpuscular Hemoglobin 30 pg (27-31); Mean Corpuscular Volume 87 fL (80-94); Mean Platelet Volume 8.5 fL (7.4-10.4); Nucleated Red Blood Cells % 0.1; Platelet Count 222 10^3/uL (150-450); Red Blood Count 5.41 10^6 /uL (4.18-5.48); Red Cell Distribution Width 14 % (10-15); White Blood Count 10.5 10^3/uL (3.5-10.8)
[2019-07-18 15:31] LABS: ALT 36 U/L (7-52); AST 20 U/L (13-39); Albumin 4.8 g/dL (3.2-5.2); Albumin/Globulin Ratio 1.7 (1-3); Alkaline Phosphatase 73 U/L (34-104); Anion Gap 9 mmol/L (2-11); BUN/Creatinine Ratio 11.5 (8-20); Blood Urea Nitrogen 11 mg/dL (6-24); CO2 Carbon Dioxide 23 mmol/L (22-32); Calcium 9.5 mg/dL (8.6-10.3); Chloride 108 mmol/L (101-111); EGFR African American 112.1 (>60); EGFR Non-African American 92.6 (>60); Globulin 2.9 g/dL (2-4); Glucose 71 mg/dL (70-100); Potassium 3.7 mmol/L (3.5-5.0); Sodium 140 mmol/L (135-145); Total Protein 7.7 g/dL (6.4-8.9)
[2019-07-18 15:51] LABS: Urine Appearance Clear; Urine Bilirubin Negative (Negative); Urine Blood Negative (Negative); Urine Color Colorless; Urine Glucose Negative (Negative); Urine Ketones Negative (Negative); Urine Nitrite Negative (Negative); Urine Protein Negative (Negative); Urine Specific Gravity 1.002 (1.010-1.030); Urine Urobilinogen Negative (Negative)
[2019-07-18 15:54] LABS: Acetaminophen < 15 mcg/mL; Alcohol < 10 mg/dL (<10); Salicylate < 2.50 mg/dL (<30)
[2019-07-18 16:14] LABS: Urine Benzodiazepine Screen None Detected (None Detect); Urine Opiates Screen None Detected (None Detect)
[2019-07-18] MEDS: NS 0.9% 1000 ML** 2,000 ML IV ONE (17:46)
[2019-07-18 19:28] VITALS: BP 137/98
== END 2019-07-18 19:30 | disposition home or self-care (01) ==
LOC: ED 14:37
DX: F19.129 Other psychoactive substance abuse with intoxication, unspecified (principal); E03.9 Hypothyroidism, unspecified; I10 Essential (primary) hypertension; F41.9 Anxiety disorder, unspecified; F32.9 Major depressive disorder, single episode, unspecified; F43.10 Post-traumatic stress disorder, unspecified; F17.210 Nicotine dependence, cigarettes, uncomplicated
CPT/HCPCS: 36415; 80053; 80307; 80320; 80329; 81003; 83605; 85025; 93005; 96360; 99283; G0480

== ENCOUNTER 2019-07-18 23:39 | Observation (INO) | payer OTHER ==
[2019-07-18] MEDS ORDERED: NS 0.9% 1000 ML** 1,000 ML IV ONE (23:45)
--- NOTE | 2019-07-18 23:52 | ED ---
Substance Abuse/Use - HPI Summary HPI Summary: This pt is a 29 Y/O M brought to [facility] for unresponsiveness [employer]. Per EMS the was seen 20 minutes prior to the episode reading on a book on a ledge. The pt fell forward off the ledge 2 feet and landed on his head. He then began experiencing seizure-like activities that lasted 40 seconds at the longest and was witnessed in the ambulance at least once. He is currently a level 5 caveat due to his level of unresponsiveness. He has a Hx of drug abuse. - History Of Current Complaint Stated Complaint: OVERDOSE PER EMS Time Seen by Provider: 07/18/19 23:44 Hx Obtained From: EMS Hx From Patient Unobtainable Due To: Other - LEVEL 5 caveat due to his unresponsive nature Overdose Characteristics: Oral Character: Other - unresponsive Associated Signs And Symptoms: Altered Mental Status - pt is unresponsive - Allergies/Home Medications Allergies/Adverse Reactions: Allergies Allergy/AdvReac Type Severity Reaction Status Date / Time No Known Allergies Allergy Verified 02/01/19 20:50 PMH/Surg Hx/FS Hx/Imm Hx Previously Healthy: No - PT IS CURRENTLY A LEVEL 5 CAVEAT DUE TO HIS LEVEL OF UNRESPONSIVENESS Endocrine/Hematology History: Reports: Hx Thyroid Disease - Hypothyroidism Denies: Hx Anticoagulant Therapy, Hx Blood Disorders, Hx Blood Transfusions, Hx Bone Marrow Disease, Hx Diabetes, Hx Systemic Lupus Erythematosus, Hx Sickle Cell Disease, Hx Anemia, Hx Unexplained Bleeding, Other Endocrine/Hematological Disorders Cardiovascular History: Reports: Hx Hypertension Denies: Hx Aneurysm, Hx Angina, Hx Angioplasty, Hx Auto Implanted Cardiovert Defib, Hx Cardiac Arrest, Hx Cardiomegaly, Hx Congenital Heart Disease, Hx Congestive Heart Failure, Hx Coronary Artery Disease, Hx Deep Vein Thrombosis, Hx Embolism, Hx Hypercholesterolemia, Hx Hypotension, Hx Pacemaker/ICD, Hx Peripheral Vascular Disease, Hx Rheumatic Fever, Hx Syncope, Hx Valvular Heart Disease, Other Cardiovascular Problems/Disorders Respiratory History: Reports: Hx Pneumonia, Hx Seasonal Allergies Denies: Hx Asthma, Hx Chronic Bronchitis, Hx Chronic Obstructive Pulmonary Disease (COPD), Hx Cystic Fibrosis, Hx Lung Cancer, Hx Pleural Effusion, Hx Pulmonary Edema, Hx Pulmonary Embolism, Hx Sleep Apnea, Other Respiratory Problems/Disorders GI History: Reports: Hx Ulcer Denies: Hx Cirrhosis, Hx Crohn's Disease, Hx Diverticulosis, Hx Gall Bladder Disease, Hx Gastroesophageal Reflux Disease, Hx Gastrointestinal Bleed, Hx Hiatal Hernia, Hx Irritable Bowel, Hx Jaundice, Hx Obstructive Bowel, Hx Ileostomy, Hx Pyloric Stenosis, Other GI Disorders History: Denies: Hx Acute Renal Failure, Hx Benign Prostatic Hyperplasia, Hx Chronic Renal Failure, Hx Dialysis, Hx Kidney Infection, Hx Kidney Stones, Hx Renal Disease, Other Problems/Disorders Musculoskeletal History: Denies: Hx Arthritis, Hx Back Problems, Hx Bursitis, Hx Congenital Bone Abnormalities, Hx Fibromyalgia, Hx Gout, Hx Orthopedic Injury, Hx Osteoporosis, Hx Scoliosis, Hx Tendonitis, Other Musculoskeletal History Sensory History: Denies: Hx Cataracts, Hx Contacts or Glasses, Hx Eye Injury, Hx Eye Prosthesis, Hx Glaucoma, Hx Legally Blind, Hx Macular Degeneration, Hx Vision Problem, Hx Deafness, Hx Hearing Aid, Other Sensory Impairments Opthamlomology History: Denies: Hx Cataracts, Hx Contacts or Glasses, Hx Eye Injury, Hx Eye Prosthesis, Hx Glaucoma, Hx Legally Blind, Hx Macular Degeneration, Hx Vision Problem, Other Sensory Impairments Neurological History: Reports: Hx Headaches, Hx Seizures Denies: Hx Dementia, Hx Developmental Delay, Hx Migraine, Hx Nerve Disease, Hx Spinal Cord Injury, Hx Transient Ischemic Attacks (TIA), Other Neuro Impairments/Disorders Psychiatric History: Reports: Hx Anxiety, Hx Depression, Hx Post Traumatic Stress Disorder, Hx Inpatient Treatment, Hx Community Mental Health Tx, Hx Bipolar Disorder, Hx of Violent Episodes Against Others, Hx Substance Abuse, Other Psychiatric Issues/Disorders Denies: Hx Attention Deficit Hyperactivity Disorder, Hx Eating Disorder, Hx Panic Disorder, Hx Schizophrenia, Hx Suicide Attempt - Cancer History Cancer Type, Location and Year: None reported Hx Chemotherapy: No Hx Radiation Therapy: No - Surgical History Surgery Procedure, Year, and Place: none Hx Anesthesia Reactions: No - Immunization History Date of Tetanus Vaccine: Unknown Date of Influenza Vaccine: None Infectious Disease History: Reports: Hx Hepatitis - Hep C Denies: Hx Clostridium Difficile, Hx Human Immunodeficiency Virus (HIV), Hx of Known/Suspected MRSA, Hx Shingles, Hx Tuberculosis, Hx Known/Suspected VRE, Hx Known/Suspected VRSA, History Other Infectious Disease, Traveled Outside the [place] in Last 30 Days - Family History Known Family History: Positive: Other - cancer Negative: Renal Disease Family History: father - ETOH - Social History Alcohol Use: Daily Alcohol Amount: beers Hx Substance Use: Yes Substance Use Type: Reports: Cocaine, Prescribed, Other Substance Use Comment - Amount & Last Used: Multiple Coricidin overdose Hx Tobacco Use: Yes Smoking Status (MU): Heavy Every Day Tobacco Smoker Type: Cigarettes Have You Smoked in the Last Year: Yes Review of Systems - ROS Summary Review of Systems Summary: THIS PT'S FULL ROS IS UNOBTAINABLE DUE TO THE PT BEING A LEVEL 5 CAVEAT FOR HIS UNRESPONSIVE NATURE. Psychological: Other - unresponsive All Other Systems Reviewed And Are Negative: No Physical Exam - Summary Physical Exam Summary: General: Well-developed, Obese male, unkempt, lethargic and only localizes to pain. HEENT: Normocephalic, Atraumatic. Eyes: Conjuctiva normal, PERRL. 6 mms reactive bilaterally. Ears: TMs within normal limits. Nares: (-) discharge, (-) erythema. Oropharynx: Clear, mucous membranes moist, (-) exudates. Neck: Soft, FROM, (-) lymphadenopathy, (-) thyromegaly, (-) JVD. Cardiovascular: Normal sinus rhythm, (-) murmur. Lungs: Clear to auscultation bilaterally (-) wheezes, (-) rales, (-) rhonchi. Abdomen: Soft, non-tender, non-distended, (-) organomegaly, normal bowel sounds. Back: (-) CVA tenderness Extremities: No edema. Moves extremities voluntarily. Skin: Warm, dry, (-) rash. Neuro: Alert and oriented x3, no focal deficits. Psychiatric: Mood normal, affect normal. Triage Information Reviewed: Yes Vital Signs On Initial Exam: Temp Pulse Resp BP SpO2 FiO2 Vital Signs Reviewed: Yes - [place] Coma Scale Best Eye Response: 4 - Spontaneous Best Motor Response: 4 - Withdraws Best Verbal Response: 2 - Incomprehensible Words Coma Scale Total: 10 Procedures - Sedation Patient Received Moderate/Deep Sedation with Procedure: No Diagnostics - Laboratory Result Diagrams: 07/19/19 00:00 07/19/19 00:00 Lab Statement: Any lab studies that have been ordered have been reviewed, and results considered in the medical decision making process. - CT Brain CT CT Interpretation Completed By: Radiologist Summary of CT Findings: No acute findings. ED physician has reviewed this report. - EKG 2347 Cardiac Rate: Tachycardia - 143 BPM EKG Rhythm: Sinus Tachycardia ST Segment: Other Summary of EKG Findings: EKG at 2347 reveals sinus tachycardia with rate of [address] depression in leads V3 and V4. No STEMI. This EKG was reviewed and interpreted by Dr. Blanco at 2349 07/18/2019. Re-Evaluation - Re-Evaluation First Eval Re-Evaluation Time: 00:03 Change: Worse Comment: Pt displayed seizure-like activity and had visible clawing of his hands. ABg and a brain CT will be ordered. Second Eval Re-Evaluation Time: 00:55 Change: Unchanged Comment: Pt's Lactic acid is an 18.8, ABG pH 7.16, and a CO2 of 8. Course/Dx - Course Course Of Treatment: 29-year-old male presents from homeless longterm after a reported episode of syncope. Patient just discharged from this hospital about an hour ago. Received a ride home to the longterm. About 20 minutes later apparently he was seen falling forward and passing out. According to EMS he had an episode they witnessed a brief seizure-like activity with contractions during which he went pale and stopped breathing. This lasted about 40 seconds according to events specialist. That happened one time en route. Upon arrival patient is responsive to pain. He opens his eyes voluntarily. Does not follow commands or answer questions. Pupils are 6 mm bilaterally and reactive. He is tachycardic upon arrival. Stable blood pressure. IV fluids are started. EKG shows sinus tach. ABG demonstrates a low pH with a normal CO2. Patient is given bicarbonate with his fluids at this time. Antibiotics prophylactically for elevated white count and tachycardia. Intubation was contemplated. We held off on this as patient's problem appeared to be more metabolic in nature. One hour after bicarbonate his ABG was repeated and much better. PH was normal. CO2 was normal at that time. Patient had elevated lactic acid as well as white blood cell count. After 2 L of IV fluids and bicarbonate patient's lactic acid decreased to normal range. Troponin negative. His urine did show PCP as well as opiates. When patient was here earlier he admitted to Coricidin overdose to get high. His PCP was positive at that time as well. CT head negative. Patient had to be restrained early for his violent thrashing behavior intermittently. Currently patient is being monitored awaiting reevaluation after sobriety. Signed out at change of shift. - Diagnoses Provider Diagnoses: Syncope, Drug abuse Discharge ED - Sign-Out/Discharge Documenting (check all that apply): Sign-Out Patient Signing out patient TO: Brayan Haider - Discharge Plan Condition: Stable Referrals: No Primary Care Phys,NOPCP [Primary Care Provider] - - Billing Disposition and Condition Condition: STABLE - Attestation Statements Document Initiated by Shelleyibe: Yes Documenting Scribe: Shaquille Trujillo Provider For Whom Scribe is Documenting (Include Credential): Iris Blanco MD Scribe Attestation: Shaquille Brunner, scribed for Iris Blanco MD on 07/19/19 at 0639. Scribe Documentation Reviewed: Yes Provider Attestation: The documentation as recorded by the Shaquille fournier accurately reflects the service I personally performed and the decisions made by me, Iris Blanco MD Status of Scribe Document: Viewed
[2019-07-19 00:17] LABS: Calcium 9.8 mg/dL (8.6-10.3); Chloride 103 mmol/L (101-111); Potassium 3.6 mmol/L (3.5-5.0); Sodium 142 mmol/L (135-145)
[2019-07-19 00:18] LABS: ABS Basophils 0.2 10^3/ul (0-0.2); ABS Eosinophils 0.1 10^3/ul (0-0.6); ABS Lymphocytes 6.6 10^3/ul (1.0-4.8); ABS Monocytes 2.1 10^3/ul (0-0.8); ABS Neutrophils 11.3 10^3/ul (1.5-7.7); Eosinophil % 0.4 %; Hematocrit 52 % (42-52); Hemoglobin 16.4 g/dL (14.0-18.0); Lymphocyte % 32.5 %; Mean Corpuscular HGB Conc 32 g/dL (31-36); Mean Corpuscular Hemoglobin 30 pg (27-31); Mean Corpuscular Volume 93 fL (80-94); Mean Platelet Volume 9.2 fL (7.4-10.4); Platelet Count 287 10^3/uL (150-450); Red Blood Count 5.56 10^6 /uL (4.18-5.48); Red Cell Distribution Width 15 % (10-15); White Blood Count 20.2 10^3/uL (3.5-10.8)
[2019-07-19 00:20] LABS: Anion Gap 31 mmol/L (2-11); CO2 Carbon Dioxide 8 mmol/L (22-32)
[2019-07-19 00:22] LABS: ALT 42 U/L (7-52); AST 30 U/L (13-39); Albumin/Globulin Ratio 1.4 (1-3); Alkaline Phosphatase 85 U/L (34-104); BUN/Creatinine Ratio 8.4 (8-20); Blood Urea Nitrogen 12 mg/dL (6-24); EGFR African American 70.7 (>60); EGFR Non-African American 58.5 (>60); Globulin 3.5 g/dL (2-4); Glucose 104 mg/dL (70-100); Total Protein 8.5 g/dL (6.4-8.9)
[2019-07-19 00:45] LABS: Acetaminophen < 15 mcg/mL; Alcohol < 10 mg/dL (<10); Salicylate < 2.50 mg/dL (<30)
[2019-07-19] MEDS ORDERED: NS 0.9% 1000 ML** 1,000 ML IV ONE ×2 (00:56→11:59)
[2019-07-19] MEDS ORDERED: Piperacillin/Tazobac ADVAN(*) 3.375 GM in NS 0.9% 100 ML* 100 ML IVPB ONE (00:57)
[2019-07-19] MEDS ORDERED: Sodium Bicarbonate 8.4% VIAL* 10 ML VIAL IV ONE (01:02)
[2019-07-19] MEDS ORDERED: Sodium Bicarbonate 8.4%* 50 ML SYRINGE IV ONE (01:25)
[2019-07-19] MEDS ORDERED: Sodium Bicarbonate 8.4% IV* 50 ML VIAL IV ONE (01:34)
[2019-07-19 02:42] LABS: Urine Appearance Cloudy; Urine Bilirubin Negative (Negative); Urine Blood 3+ (Negative); Urine Color Yellow; Urine Glucose Negative (Negative); Urine Ketones Negative (Negative); Urine Nitrite Negative (Negative); Urine Protein 1+(30 mg/dL) (Negative); Urine Specific Gravity 1.013 (1.010-1.030); Urine Urobilinogen Negative (Negative)
[2019-07-19 02:47] LABS: Urine Bacteria Absent (Absent); Urine Red Blood Cell Trace(0-2/hpf) (Absent); Urine Squamous Epithelial Cell Present (Absent); Urine White Blood Cell Trace(0-5/hpf) (Absent)
[2019-07-19 02:57] LABS: Urine Benzodiazepine Screen None Detected (None Detect); Urine Opiates Screen Presumptive Positive (None Detect)
[2019-07-19] MEDS ORDERED: Lorazepam PYXIS KEY PRN ×3 (03:38→16:29)
[2019-07-19] MEDS ORDERED: LORazepam INJ* 2 MG/ML 1 ML VIAL IV PUSH ONE ×2 (03:38→04:27)
[2019-07-19] MEDS ORDERED: Lorazepam PYXIS KEY ONE (03:40)
--- NOTE | 2019-07-19 07:20 | ED ---
Progress - Progress Note Progress Note: Pt is a signout from Dr. Blanco at 0700 on 07/19/2019 pending re-evaluation when he is sober. Re-Evaluation - Re-Evaluation First Eval Re-Evaluation Time: 00:03 Second Eval Re-Evaluation Time: 00:55 Course/Dx - Course Course Of Treatment: Siria's mental status gradually improved here in the emergency department. She had a James placed in her urine was very dark. A CPK was obtained and was 70,000. She had already received 2 L of fluid and 2 more liters of fluid were ordered at that time and the hospitalist service was contacted for admission. - Diagnoses Provider Diagnoses: Syncope, Substance use disorder, Rhabdomyolysis - Provider Notifications Discussed Care Of Patient With: Sung Mckeon Time Discussed With Above Provider: 12:05 Instructed by Provider To: Admit As Inpatient - Critical Care Time Critical Care Time: 30-74 min Discharge ED - Sign-Out/Discharge Documenting (check all that apply): Patient Departure, Receiving Sign-Out Receiving patient FROM: Iris Blanco - Discharge Plan Condition: Stable Disposition: ADMITTED TO [facility] - Billing Disposition and Condition Condition: STABLE Disposition: Admitted to [facility] - Attestation Statements Document Initiated by Scribe: Yes Documenting Scribe: Polly Boateng Provider For Whom Mario is Documenting (Include Credential): Brayan Haider MD. Scribe Attestation: Polly Brunner, scribed for Brayan Haider MD. on 07/19/19 at 1840. Scribe Documentation Reviewed: Yes Provider Attestation: The documentation as recorded by the scribPolly yuan accurately reflects the service I personally performed and the decisions made by me, Brayan Haider MD. Status of Scribe Document: Viewed
[2019-07-19] MEDS ORDERED: NS 0.9% 1000 ML** 1,000 ML IV.FLUID IV ONE (14:09)
[2019-07-19] MEDS ORDERED: NS 0.9% 1000 ML** 1,000 ML IV SCH (14:15)
[2019-07-19 14:44] LABS: BUN/Creatinine Ratio 8.5 (8-20); Calcium 8.6 mg/dL (8.6-10.3); EGFR African American 99.9 (>60); EGFR Non-African American 82.6 (>60); Potassium 3.7 mmol/L (3.5-5.0)
[2019-07-19 15:43] LABS: Magnesium 2.4 mg/dL (1.9-2.7)
[2019-07-19] MEDS ORDERED: Acetylcysteine ORAL SOL* 200 MG/ML VIAL PO ONE (16:26)
[2019-07-19] MEDS: NS 0.9% 1000 ML** 1,000 ML IV SCH ×2 (16:42→20:10)
[2019-07-19] MEDS: LORazepam INJ* 2 MG/ML 1 ML VIAL IV PUSH PRN (17:07)
[2019-07-19 17:26] LABS: ABS Basophils 0.1 10^3/ul (0-0.2); ABS Lymphocytes 2.8 10^3/ul (1.0-4.8); ABS Monocytes 1.3 10^3/ul (0-0.8); Eosinophil % 0.3 %; Hematocrit 41 % (42-52); Hemoglobin 13.9 g/dL (14.0-18.0); Lymphocyte % 23.1 %; Mean Corpuscular HGB Conc 34 g/dL (31-36); Mean Corpuscular Hemoglobin 30 pg (27-31); Mean Corpuscular Volume 87 fL (80-94); Mean Platelet Volume 8.3 fL (7.4-10.4); Platelet Count 193 10^3/uL (150-450); Red Cell Distribution Width 15 % (10-15); White Blood Count 12.3 10^3/uL (3.5-10.8)
[2019-07-19] MEDS ORDERED: Acetylcysteine IV* 15,000 MG in D5W 250 ML BAG* 200 ML IV ONE (17:30)
[2019-07-19 17:34] LABS: INR 1.39 (0.82-1.09)
--- NOTE | 2019-07-19 17:45 | HP ---
History of Present Illness - History of Present Illness Reason for Visit: Coricidin overdose History of Present Illness: Fernie Angeles is a 29y/o man with history of polysubstance use, multiple admissions for coricidin overdose, alcohol abuse, chronic hepc, depression, personality disorder, possible seizure and hypertension. He was a frequent flyer to [facility] and recently just released from [facility]. He initially presented to ED 07/18/2019 as he ingested 40 tablets of coricidin at 11am, he was found to have nystagmus, stammering speech, toxicology positive for phenyclidine. Same night he was brought in again as he was found falling off a ledge while sitting, hit his head, and had seizure like activity lasting 40 seconds, with contractions during which he went pale and stopped breathing, witnessed in the ambulance at least once. He told ED staff that he took another 50+ tablets of coricidin. He had metabolic acidosis with bicarb 8, was given bicarb drip, and his bicarb and lactic acid decreased to normal. His CT head was negative. [place] [id number]. We were called to admit him in view of his rahbdomyolysis. Fenrie is not a reliable historian. He stated he was just out of [facility] yesterday and walked all the way from [facility] to [facility] when I talked to him. He stated he is anxious and wants ativan. He then told me he was suicidal, he denied any suicidal plan, and said he would like to for the past 3 years. He claimed he took 40 tablets coricidin, and no other substance or alcohol. He had no complain of chest pain, headache, SOB, palpitation other than anxious feeling. He admitted weakness, but no swallowing difficulty, no breathing difficulty. He requested me to get him admitted throughout the conversation, he initially said he would like to go to behaviour unit, and then stated other units are also fine. - Past Medical History Past Medical History: 1. Polysubstance abuse 2. Depression 3. History of coricidin abuse and dependence 4. Personality disorder 5. Chronic hepatitis C 6. Possible history of seizure 7. Possible history of hypertension 8. Alcohol abuse 9. Hypothyroidism according to patient - Past Surgical History Past Surgical History: None - Past Family History Past Family History: Patient unable/unwilling to give history - Past Social History Past Social History: Obtained from earlier psych note 10/02/2018, patient reports his mother when he was 6, he hasn't met his father who has been in [place] [facility] for a manslaughter. He was raised by his aunt and uncle, and they are his support for now. He had primary care in [facility], but missed many appointments due to incarceration Polysubstance use including Etoh, tobacco, cannabis, past use of heroin, cocaine , multiple admission for coricidin overdose. Medications: Home Medications Medication Instructions Recorded Confirmed Type NK [No Home Medications Reported] 07/18/19 07/19/19 History Allergies/Adverse Reactions: Allergies Allergy/AdvReac Type Severity Reaction Status Date / Time No Known Allergies Allergy Verified 07/19/19 15:58 Review of Systems - Review of Systems Constitutional: Negative: Fever, Chills, Sweats, Malaise, Other Eyes: Negative: Pain, Vision Change, Conjunctivae Inflammation, Eyelid Inflammation, Redness, Other ENT: Negative: Ear Pain, Ear Discharge, Nose Pain, Nose Discharge, Nose Congestion, Mouth Pain, Mouth Swelling, Throat Pain, Throat Swelling, Other Respiratory: Negative: Cough, Dry, Shortness of Breath, Hemoptysis, SOB with Excertion, Pleuritic Pain, Sputum, Wheezing Cardiovascular: Negative: Chest Pain, Palpitations, Orthopnea, Paroxysmal Noc. Dyspnea, Edema, Light Headedness, Other Gastrointestinal: Negative: Nausea, Vomiting, Abdominal Pain, Diarrhea, Constipation, Melena, Hematochezia, Other Genitourinary: Negative: Dysuria, Frequency, Incontinence, Hematuria, Retention , Other Musculoskeletal: Negative: Neck Pain, Shoulder Pain, Arm Pain, Back Pain, Hand Pain, Leg Pain, Foot Pain, Other Skin: Negative: Rash, Lesions, Kishore, Bruising, Other Neurological: Negative: Weakness, Numbness, Incoordination, Change in Speech, Confusion, Seizures, Other Exam Vital Signs: Vital Signs (72 hours) 07/18/19 07/18/19 07/19/19 23:42 23:44 00:00 Temperature 100.5 F Pulse Rate 142 142 143 Respiratory 36 36 21 Rate Blood Pressure 119/65 119/65 (mmHg) O2 Sat by Pulse 92 94 94 Oximetry 07/19/19 07/19/19 07/19/19 00:12 00:43 01:00 Temperature Pulse Rate 158 148 137 Respiratory 21 26 17 Rate Blood Pressure 134/84 130/65 (mmHg) O2 Sat by Pulse 96 96 95 Oximetry 07/19/19 07/19/19 07/19/19 01:16 01:31 01:47 Temperature Pulse Rate 138 127 Respiratory 27 19 15 Rate Blood Pressure 141/90 136/91 129/97 (mmHg) O2 Sat by Pulse 94 94 Oximetry 07/19/19 07/19/19 07/19/19 02:00 02:16 02:32 Temperature Pulse Rate 119 Respiratory 18 18 14 Rate Blood Pressure 132/95 153/70 (mmHg) O2 Sat by Pulse 98 Oximetry 07/19/19 07/19/19 07/19/19 02:59 03:01 03:02 Temperature Pulse Rate 120 116 122 Respiratory 14 15 16 Rate Blood Pressure 134/88 156/78 (mmHg) O2 Sat by Pulse 99 98 98 Oximetry 07/19/19 07/19/19 07/19/19 03:37 03:43 03:50 Temperature Pulse Rate 113 113 Respiratory 15 22 29 Rate Blood Pressure 152/103 142/104 (mmHg) O2 Sat by Pulse 99 99 Oximetry 07/19/19 07/19/19 07/19/19 04:00 04:35 04:38 Temperature Pulse Rate 116 117 Respiratory 23 22 28 Rate Blood Pressure 145/95 (mmHg) O2 Sat by Pulse 98 100 Oximetry 07/19/19 07/19/19 07/19/19 05:06 05:10 05:40 Temperature Pulse Rate 107 106 104 Respiratory 16 22 Rate Blood Pressure 126/90 131/90 (mmHg) O2 Sat by Pulse 97 100 98 Oximetry 07/19/19 07/19/19 07/19/19 06:00 06:10 06:40 Temperature Pulse Rate 103 100 Respiratory 22 25 16 Rate Blood Pressure 134/95 137/93 (mmHg) O2 Sat by Pulse 96 90 Oximetry 07/19/19 07/19/19 07/19/19 07:00 07:10 07:40 Temperature Pulse Rate 103 110 97 Respiratory 24 23 17 Rate Blood Pressure 128/93 130/100 (mmHg) O2 Sat by Pulse 95 97 97 Oximetry 07/19/19 07/19/19 07/19/19 08:00 08:11 09:00 Temperature Pulse Rate 100 97 97 Respiratory 14 18 Rate Blood Pressure 115/48 (mmHg) O2 Sat by Pulse 97 95 93 Oximetry 07/19/19 07/19/19 07/19/19 11:05 12:13 12:14 Temperature 99.3 F Pulse Rate 104 92 91 Respiratory 20 31 36 Rate Blood Pressure 130/90 132/93 (mmHg) O2 Sat by Pulse 97 96 96 Oximetry 07/19/19 07/19/19 07/19/19 12:44 13:00 13:14 Temperature Pulse Rate 89 94 Respiratory 15 30 Rate Blood Pressure 132/84 136/97 (mmHg) O2 Sat by Pulse 96 95 Oximetry 07/19/19 07/19/19 07/19/19 13:45 14:14 14:20 Temperature Pulse Rate 84 Respiratory 30 Rate Blood Pressure 135/90 131/93 (mmHg) O2 Sat by Pulse 96 Oximetry 07/19/19 07/19/19 07/19/19 14:44 15:00 15:14 Temperature Pulse Rate 87 104 Respiratory 19 26 22 Rate Blood Pressure 130/91 132/86 (mmHg) O2 Sat by Pulse 97 96 Oximetry 07/19/19 17:07 Temperature Pulse Rate Respiratory 22 Rate Blood Pressure (mmHg) O2 Sat by Pulse Oximetry Exam: Appearance: young man dressed appropriately, flushed looking, fell asleep custodial and woke up on his own during the conversation Head and Neck: atraumatic.nomocephalic. No JVP Ears: Pupils 4mm, not very reactive, no nystagmus Nose/Mouth/Throat: Clear Oropharnyx, Mucous Membranes Moist Respiratory: Symmetrical Chest Expansion and Respiratory Effort, clear Cardiovascular: NL Sounds; No Murmurs; No JVD, RRR Abdominal: NL Sounds; No Tenderness; No Distention, No Hepatosplenomegaly Extremities: No Edema, no clubbing, no cyanosis Neurological: Alert and Oriented x 3, 4 limbs moving spontaneously, no tremor Result Diagrams: 07/20/19 05:56 07/19/19 17:15 Diagnostic Imaging: CT brain: neg EKG Data: EKG: mild QT prolongation, Qtc 478 Assessment/Plan - Assessment/Plan Assessment: Fernie Angeles is a 28y/o "transgender" male with history of polysubstance use presented to [facility] with Coricidin overdose and possible seizure, found to have metabolic acidosis which was correctly, and rhabdomyolysis. Case was discussed in ER w/ nursing leadership, attending, to arrange multidisciplinary efforts. Decision was made to admit him to 4N with telemetry monitoring. 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 We are admitting him with telemetry monitoring in view of his overdose and EKG changes. Plan: 1. Coricidin overdose - There are three components in coricidin, dextromethorphan (NMDA antagonist similar to PCP), chlorpheniramine (H1 antagonist), acetaminophen - Patient has developed anticholinergic activity including flushed skin, mydriasis, tachycardia, and also PCP-like activity including nystagmus, slurred speech, respiratory depression, stupor. - it's concerning for acetaminophen overdose as well though his first serum level is normal, thus a repeat blood level and coagulation will be checked, also start on iv acetylcystine - IV NS 150ml/hour - IV ativan prn for agitation 2. Possible seizure - 1 episode of witnessed seizure activity by EMS - no seizure observed in ED - though concerning for pseudoseizure considering his extensive history of overuse of hospital and psych history - will do EEG to confirm or rule out 3. Rhabdomyolysis - high ck, ELIDIA resolved in ER - iv fluid - trend CK, watch kidney function - will check tsh 4. Suicidal ideation - patient claimed "he is suicidal", no suicidal plan - suicidal precaution - may consider psych consult after out of drug overdose situation 5. DVT prophylaxis - ambulatory Attestation Documenting Resident: Nelda Farris Supervising Physician: Ed Small Attending/Supervising Physician Comment: Patient well-known to service with recurrent Coricidin overdose, abuse of alcohol from hand sanitizers. Now here with same, plus significant rhabdomyolysis, which may be due to seizure, trauma. Admitted for overdose management, QT monitoring, telemetry, hydration to prevent kidney injury. Discussed extensively with Dr. Farris and nursing team. Attestation: This service has been performed in part by a resident under the direction of a teaching physician.I, Ed Small, performed the service, or was physically present during the critical, or chavira portions of the service, furnished by the resident. I participated in the management of the patient.
[2019-07-19 18:11] LABS: TSH (Thyroid Stimulating Horm) 3.85 mcIU/mL (0.34-5.60)
[2019-07-19 18:28] LABS: Albumin 3.9 g/dL (3.2-5.2); Anion Gap 7 mmol/L (2-11); CO2 Carbon Dioxide 24 mmol/L (22-32); Calcium 8.5 mg/dL (8.6-10.3); Chloride 109 mmol/L (101-111); Indirect Bilirubin 0.5 mg/dL (0.3-1.0); Potassium 3.5 mmol/L (3.5-5.0); Sodium 140 mmol/L (135-145)
[2019-07-19] MEDS ORDERED: Acetylcysteine IV* 5,000 MG in D5W 500 ML BAG* 500 ML IV ONE (18:30)
[2019-07-19 18:34] LABS: ALT 102 U/L (7-52); AST 475 U/L (13-39); Albumin/Globulin Ratio 1.6 (1-3); Alkaline Phosphatase 60 U/L (34-104); BUN/Creatinine Ratio 8.3 (8-20); Blood Urea Nitrogen 9 mg/dL (6-24); EGFR African American 96.8 (>60); Globulin 2.4 g/dL (2-4); Glucose 73 mg/dL (70-100); Total Protein 6.3 g/dL (6.4-8.9)
[2019-07-19 18:51] LABS: Acetaminophen < 15 mcg/mL
[2019-07-19 20:08] LABS: Creatine Kinase 64034 U/L (10-223)
[2019-07-19] MEDS ORDERED: Acetylcysteine IV* 10,000 MG in D5W 1000 ML BAG* 1,000 ML IV ONE (22:30)
[2019-07-20] MEDS: NS 0.9% 1000 ML** 1,000 ML IV SCH ×2 (02:33→19:45)
[2019-07-20 06:40] LABS: ABS Eosinophils 0.1 10^3/ul (0-0.6); ABS Monocytes 0.9 10^3/ul (0-0.8); ABS Neutrophils 4.1 10^3/ul (1.5-7.7); Eosinophil % 1.6 %; Hematocrit 40 % (42-52); Hemoglobin 13.7 g/dL (14.0-18.0); Lymphocyte % 28.4 %; Mean Corpuscular HGB Conc 34 g/dL (31-36); Mean Corpuscular Hemoglobin 30 pg (27-31); Mean Corpuscular Volume 88 fL (80-94); Platelet Count 155 10^3/uL (150-450); Red Blood Count 4.55 10^6 /uL (4.18-5.48); Red Cell Distribution Width 15 % (10-15); White Blood Count 7.1 10^3/uL (3.5-10.8)
[2019-07-20 06:44] LABS: INR 1.27 (0.82-1.09)
[2019-07-20 06:58] LABS: ALT 99 U/L (7-52); AST 343 U/L (13-39); Albumin 3.5 g/dL (3.2-5.2); Albumin/Globulin Ratio 1.7 (1-3); Alkaline Phosphatase 50 U/L (34-104); Anion Gap 3 mmol/L (2-11); BUN/Creatinine Ratio 11.1 (8-20); Blood Urea Nitrogen 12 mg/dL (6-24); CO2 Carbon Dioxide 25 mmol/L (22-32); Calcium 8.4 mg/dL (8.6-10.3); Chloride 113 mmol/L (101-111); EGFR African American 97.8 (>60); EGFR Non-African American 80.8 (>60); Globulin 2.1 g/dL (2-4); Glucose 100 mg/dL (70-100); Magnesium 2.1 mg/dL (1.9-2.7); Potassium 3.7 mmol/L (3.5-5.0); Sodium 141 mmol/L (135-145); Total Protein 5.6 g/dL (6.4-8.9)
--- NOTE | 2019-07-20 07:33 | PN ---
Subjective Date of Service: 07/20/19 Interval History: Admitted yesterday after Corcidin overdose. Found to have rhabdo, now on IVF. No acute events overnight. AST/ALT significantly increased. While this is likely from known ingestion, will repeat APAP level this AM, as patient is known to ingest substances in the hospital. She denies RUQ pain, anorexia, n/v/c/d. States she feels well except for mild anxiety. Objective Active Medications: Bupropion HCl (Bupropion Xl*) 300 mg PO DAILY [facility] Sodium Chloride (Ns 0.9% 1000 Ml) 1,000 mls @ 150 mls/hr IV PER RATE [facility] Last Admin: 07/20/19 02:33 Dose: 150 mls/hr Levothyroxine Sodium (Synthroid Tab*) 150 mcg PO DAILY@0600 [facility] Lorazepam (Ativan Inj*) 1 mg IV PUSH Q6H PRN PRN Reason: ANXIETY Last Admin: 07/19/19 17:07 Dose: 1 mg Miscellaneous (Ativan Pyxis Akhtar) 1 ea N/A .ATIVAN IV AKHTAR PRN PRN Reason: PYXIS AKHTAR Nicotine (Nicotine Patch 21 Mg/24 Hr*) 1 patch TRANSDERM DAILY@0800 [facility] Last Admin: 07/20/19 09:02 Dose: 1 patch Pharmacy Profile Note (Nicotine Patch Removal Note*) 1 note PATCH OFF 2100 [facility] Vital Signs - 8 hr 07/20/19 03:00 Temperature 98.0 F Pulse Rate 76 Respiratory 18 Rate Blood Pressure 125/85 (mmHg) O2 Sat by Pulse 100 Oximetry Oxygen Devices in Use Now: None Appearance: well appearing, NAD, alert and interactive, makes appropriate eye- contact Eyes: No Scleral Icterus Ears/Nose/Mouth/Throat: Clear Oropharnyx, Mucous Membranes Moist Neck: NL Appearance and Movements; NL JVP, Trachea Midline Respiratory: Symmetrical Chest Expansion and Respiratory Effort, Clear to Auscultation Cardiovascular: NL Sounds; No Murmurs; No JVD, RRR Abdominal: NL Sounds; No Tenderness; No Distention, No Hepatosplenomegaly Extremities: No Edema Skin: No Rash or Ulcers Neurological: Alert and Oriented x 3 Result Diagrams: 07/20/19 05:56 07/20/19 05:56 Diagnostic Imaging: CT brain: neg EKG Data: EKG: mild QT prolongation, Qtc 478 Assess/Plan/Problems-Billing Assessment: 29 year old transgender woman with AJ, history of multiple Corcidin overdoses, alcohol use disorder, antisocial personality traits, and hypothyroidism, presents again with SI and Corcidin overdose, found to have rhabdomyolysis. - Patient Problems (1) Rhabdomyolysis Comment: Renal function remains normal. - cont IVF until CK < 5,000 - monitor lytes and renal function (2) Overdose Comment: Pt now asymptomatic. Poison control aware. Recommend to cont tele for now, with QTc monitoring. - f/u with psychiatry, as pt states this was suicide attempt - cont one-to-one (3) Suicidal ideation Comment: Pt denies now, but admitted for overdose and SI. - safety monitor, psych consult (4) Cluster B personality disorder (5) Hypothyroid Comment: TSH 3.85 - Continue home levothyroxine 150mcg (6) Major depressive disorder Comment: - cont home bupropion 300mg XL daily (7) Tobacco abuse Comment: May have history of swallowing patches, but requesting them now, and appears he has been getting them as an outpatient. - cont NRT patch, monitor that it is in place (8) DVT prophylaxis Comment: Ambulation
[2019-07-20 07:41] LABS: Acetaminophen < 15 mcg/mL
[2019-07-20 08:41] LABS: Creatine Kinase 38550 U/L (10-223)
[2019-07-20] MEDS: Nicotine PATCH 21 MG/24 HR* PATCH TRANSDERM SCH (09:02)
[2019-07-20] MEDS: BuPROPion XL* 300 MG TAB.XL PO SCH (13:02)
[2019-07-20] MEDS: LORazepam INJ* 2 MG/ML 1 ML VIAL IV PUSH PRN (15:49)
[2019-07-20] MEDS ORDERED: Nicotine Patch Removal NOTE PATCH OFF SCH (21:00)
[2019-07-21] MEDS: NS 0.9% 1000 ML** 1,000 ML IV SCH ×3 (02:31→19:09)
[2019-07-21 05:30] LABS: Urine Appearance Clear; Urine Bilirubin Negative (Negative); Urine Blood Negative (Negative); Urine Color Straw; Urine Glucose Negative (Negative); Urine Ketones Negative (Negative); Urine Nitrite Negative (Negative); Urine Protein Negative (Negative); Urine Specific Gravity 1.009 (1.010-1.030); Urine Urobilinogen Negative (Negative)
[2019-07-21] MEDS: Levothyroxine TAB* 150 MCG TAB PO SCH (05:51)
[2019-07-21 06:48] LABS: Albumin 3.5 g/dL (3.2-5.2); Albumin/Globulin Ratio 1.7 (1-3); BUN/Creatinine Ratio 11.4 (8-20); Calcium 8.7 mg/dL (8.6-10.3); EGFR Non-African American 83.5 (>60); Globulin 2.1 g/dL (2-4); Potassium 3.9 mmol/L (3.5-5.0); Total Bilirubin 0.2 mg/dL (0.2-1.0); Total Protein 5.6 g/dL (6.4-8.9)
[2019-07-21 06:52] LABS: CKMB ng/mL 7.3 ng/mL (0.6-6.3)
[2019-07-21] MEDS: Nicotine PATCH 21 MG/24 HR* PATCH TRANSDERM SCH (08:33)
[2019-07-21] MEDS: BuPROPion XL* 300 MG TAB.XL PO SCH (08:58)
[2019-07-21] MEDS: Nicotine Lozenge* mini 4 MG LOZNG.MINI MT PRN ×3 (10:33→19:09)
--- NOTE | 2019-07-21 12:00 | PN ---
Subjective Date of Service: 07/21/19 Interval History: Siria was put on nicotine patch yesterday, and the patch went missing this morning when nurse check. Siria claimed that he flushed into toilet. However he had history in the past of swallowing nicotine patch. Otherwise he had no complains. He felt good, wanted to know when he would be discharged. Objective Active Medications: Bupropion HCl (Bupropion Xl*) 300 mg PO DAILY [facility] Last Admin: 07/21/19 08:58 Dose: 300 mg Sodium Chloride (Ns 0.9% 1000 Ml) 1,000 mls @ 150 mls/hr IV PER RATE [facility] Last Admin: 07/21/19 11:00 Dose: 150 mls/hr Levothyroxine Sodium (Synthroid Tab*) 150 mcg PO DAILY@0600 [facility] Last Admin: 07/21/19 05:51 Dose: 150 mcg Lorazepam (Ativan Inj*) 1 mg IV PUSH Q6H PRN PRN Reason: ANXIETY Last Admin: 07/20/19 15:49 Dose: 1 mg Miscellaneous (Ativan Pyxis Bautista) 1 ea N/A .ATIVAN IV BAUTISTA PRN PRN Reason: PYXIS BAUTISTA Nicotine Polacrilex (Nicotine Lozenge Mini) 4 mg MT Q2H PRN PRN Reason: CRAVING Last Admin: 07/21/19 10:33 Dose: 4 mg Vital Signs - 8 hr 07/21/19 07/21/19 08:31 11:45 Temperature 97.6 F 97.3 F Pulse Rate 51 63 Respiratory 17 17 Rate Blood Pressure 122/79 120/87 (mmHg) O2 Sat by Pulse 96 98 Oximetry Oxygen Devices in Use Now: None Exam: Appearance: well appearing, NAD, alert and interactive Eyes: No Scleral Icterus Ears/Nose/Mouth/Throat: Clear Oropharnyx, Mucous Membranes Moist Respiratory: Symmetrical Chest Expansion and Respiratory Effort, Clear to Auscultation Cardiovascular: NL Sounds; No Murmurs; No JVD, RRR Abdominal: NL Sounds; mild tenderness RUQ; No Distention, No Hepatosplenomegaly Extremities: No Edema Skin: No Rash or Ulcers Neurological: Alert and Oriented x 3 Result Diagrams: 07/20/19 05:56 07/21/19 06:13 Diagnostic Imaging: CT brain: neg EKG Data: EKG: mild QT prolongation, Qtc 478 Assess/Plan/Problems-Billing Assessment: 29 year old transgender woman with AJ, history of multiple Corcidin overdoses, alcohol use disorder, antisocial personality traits, and hypothyroidism, presents again with Corcidin overdose, seizure and SI, found to have rhabdomyolysis. - Patient Problems (1) Overdose Comment: - Coricidin overdose - patient now asymptomatic - elevated liver enzymes-> downtrending now Qtc prolongation-> will repeat EKG today and monitor - continue tele - cont one-to-one (2) Rhabdomyolysis Comment: Renal function remains normal. - cont IVF until CK < 5,000 - monitor lytes and renal function (3) Seizure Current Visit: Yes Status: Acute Code(s): R56.9 - UNSPECIFIED CONVULSIONS SNOMED Code(s): 59059700 Comment: - no more recurrence - unclear whether it's real seizure or psudoseizure - pending eeg (4) Suicidal ideation Comment: - Pt denies now, but admitted for overdose and SI. - safety monitor, psych consult (5) Cluster B personality disorder Comment: - psy follow up (6) Hypothyroid Comment: TSH 3.85 - Continue home levothyroxine 150mcg (7) Major depressive disorder Comment: - cont home bupropion 300mg XL daily (8) Tobacco abuse Comment: - change to nicotine lozenge (9) DVT prophylaxis Comment: Ambulation Status and Disposition: Inpatient Medicine. Need SW to sort out follow up plan and placement before discharge Attestation Documenting Resident: Nelda Farris Supervising Physician: Mel Watson Attending/Supervising Physician Comment: Pt denies urine color other than light yellow. CK tending down but will still need IVF for now. Likely DC tomorrow. Attestation: This service has been performed in part by a resident under the direction of a teaching physician.I, Mel Watson, performed the service, or was physically present during the critical, or bautista portions of the service, furnished by the resident. I participated in the management of the patient.
[2019-07-22] MEDS: NS 0.9% 1000 ML** 1,000 ML IV SCH (04:55)
[2019-07-22] MEDS: Levothyroxine TAB* 150 MCG TAB PO SCH (06:12)
[2019-07-22] MEDS: BuPROPion XL* 300 MG TAB.XL PO SCH (07:18)
[2019-07-22] MEDS: Nicotine Lozenge* mini 4 MG LOZNG.MINI MT PRN (07:18)
[2019-07-22 07:53] VITALS: BP 123/85
--- NOTE | 2019-07-22 17:02 | DS ---
CC: [facility] * DISCHARGE SUMMARY: DATE OF ADMISSION: 07/19/19 DATE OF DISCHARGE: 07/22/19 PRIMARY CARE PHYSICIAN: ADORE Holm PRIMARY DIAGNOSES: 1. Coricidin overdose. 2. Rhabdomyolysis. 3. Possible seizure. SECONDARY DIAGNOSES: 1. Personality disorder, not otherwise specified. 2. Major depressive disorder. 3. Hypothyroidism. 4. Chronic suicidal ideation, passive without plan. 5. Tobacco use disorder. DISCHARGE MEDICATIONS: 1. Bupropion 300 mg XL daily. 2. Levothyroxine 150 mcg daily. 3. Nicotine replacement therapy. HISTORY OF PRESENT ILLNESS: Ms. Angeles is a 29-year-old transgender woman with polysubstance abuse, multiple ER presentations for Coricidin overdose, alcohol use disorder, chronic hep C, depression, hypothyroidism, personality disorder, possible seizure disorder, who was recently released from [facility]. She presented to the emergency room 1 day prior to this presentation after ingesting 40 tablets of Coricidin. She was found to have nystagmus, staggering speech with toxicology positive for PCP. She was discharged after metabolizing off this medicine, but then she was brought in again after being was found falling off a ledge while seated, hitting her head, with possible seizure activity that lasted for 40 seconds. She was noted to have contractions of her arms and legs during which she went pale, stopped breathing. This was witnessed in the ambulance at least once. The patient told the staff that after her ER discharge, she took another 50 tablets of Coricidin. HOSPITAL COURSE: In the emergency room, the patient was noted to have a bicarb of 8, so she was started on the bicarb drip. She was also noted to have lactic acidosis with level 18.8, and she was given significant amounts of intravenous fluids. Also of note, her creatine kinase was 70,000. She was asked to be admitted to hospitalist service for further care and IV fluids with monitoring of her renal function. On interview with hospitalist service, the patient reports incredible anxiety and suicidal ideation without a plan. She states she would like to for the last 3 years. She denies other substance or alcohol use. Denies chest pain, headache, changes in urination, flank pain, or palpitations. She reported weakness that resolved by next day of admission. She remained asymptomatic throughout admission and continued to deny suicidal ideation. She did have a significant increase in her liver enzymes, jumping from normal to AST 400s/ALT 100s. However, she continued to deny right upper quadrant pain, nausea or vomiting. Acetaminophen level was checked multiple times as the patient is known to ingest substances in the hospital, however, this came back negative 4 times. The liver enzymes continued to decrease on their own. The patient needed to be kept until Monday, so that appropriate outreach could be set up for him on discharge. She was also continuing to require IV fluids throughout the weekend. By day of discharge, the patient was incredibly eager to return to her jail. Social Work was contacted who called ACT team and spoke to Judith, who requested that the patient go directly to the [facility] building after going to [facility]. The patient is aware of plan and agreeable. PHYSICAL EXAMINATION: Afebrile, heart rate 70s, blood pressure 108/68, respiratory rate 16, oxygen saturation 98% on room air. In general, she is a well-appearing young adult in no acute distress. She is alert and interactive. HEENT: Moist mucous membranes. Neck: Supple. No JVD. Lungs: Clear to auscultation bilaterally. Heart: Regular rate and rhythm. No murmurs, gallops , or rubs. Abdomen: Soft, nontender, and nondistended. Extremities: Warm and well perfused without evidence of edema. DIAGNOSTIC STUDIES/LAB DATA: CBC notable for leukocytosis, which has resolved, otherwise, unremarkable. BMP unremarkable with normal renal function. AST/ALT on discharge 125/103. CK 7k Troponin negative. TSH 3.85. UA unremarkable. Toxicology positive for opiates and PCP. Acetaminophen negative x4. Serum alcohol negative. Brain CT without acute intracranial findings. DISCHARGE PLAN: The patient will be discharged back to follow up with her care at [facility]. She lives in a jail managed by [facility], and the ACT team is aware of her discharge today. She was given refills on all his home medications. For the patient's history of depression and hypothyroidism, she should continue her home medications as before. There have been no changes made to her home medication regimen. The patient was given return precautions, which include but are not limited to chest pain, shortness of breath, fevers, chills, or recurrence of seizure-like symptoms. DISPOSITION: [facility]. CONDITION: Improved. TIME SPENT: Approximately 60 minutes was spent on discharge of this patient, more than half of which was spent with care coordination at bedside for interview and exam. [id number]/CPS #: [id number]
== END 2019-07-22 09:40 | disposition home or self-care (01) ==
LOC: ED 23:39 → MED 07-19 15:43 → MEDTELE 07-20 10:19
PROVIDERS: ADMIT Internal Medicine; ATTEND Internal Medicine
DX: T48.3X1A Poisoning by antitussives, accidental (unintentional), initial encounter (principal); T45.0X1A Poisoning by antiallergic and antiemetic drugs, accidental (unintentional), initial encounter; T39.1X1A Poisoning by 4-Aminophenol derivatives, accidental (unintentional), initial encounter; Y92.9 Unspecified place or not applicable; M62.82 Rhabdomyolysis; R55 Syncope and collapse; F60.9 Personality disorder, unspecified; F32.9 Major depressive disorder, single episode, unspecified; F41.9 Anxiety disorder, unspecified; I10 Essential (primary) hypertension; E03.9 Hypothyroidism, unspecified; R45.851 Suicidal ideations; F17.210 Nicotine dependence, cigarettes, uncomplicated; Z79.890 Hormone replacement therapy; Z79.899 Other long term (current) drug therapy; R94.31 Abnormal electrocardiogram [ECG] [EKG]
CPT/HCPCS: 36415; 70450; 80048; 80053; 80076; 80307; 80320; 80329; 81003; 81015; 82550; 82553; 82803; 83605; 83735; 84443; 84484; 85025; 85610; 85730; 87086; 93005; 96365; 96366; 96367; 96375; 96376; 99285; A9270-GY; G0378; G0480; J0132; J2060; J2543; J7060

== ENCOUNTER 2019-07-22 13:15 | Emergency (ER) | payer OTHER ==
[2019-07-22] MEDS ORDERED: NS 0.9% 1000 ML** 1,000 ML IV ONE (13:25)
--- NOTE | 2019-07-22 13:33 | ED ---
Substance Abuse/Use - HPI Summary HPI Summary: Patient is a 29 y/o M presenting to the ED via EMS for a chief complaint of altered mental status. Per EMS, patient had behavioral changes and was acting strangely. On EMS arrival, patient was hypertensive, tachycardic, and had dilated pupils. EMS reports patient took 64 pills of dextromethorphan. HISTORY OF PRESENT ILLNESS IS LIMITED DUE TO LEVEL 5 CAVEAT - ALTERED MENTAL STATUS. - History Of Current Complaint Stated Complaint: OVERDOSE PER EMS Hx Obtained From: EMS Hx From Patient Unobtainable Due To: Altered Mental Status Ingestion History: Type/Name Of Drug - Dexomethorphan, Amount Ingested - 64 pills Overdose Characteristics: Oral Timing Of Abuse: Binge Use Severity Initially: Moderate Severity Currently: Moderate Associated Signs And Symptoms: Altered Mental Status, Intentional Ingestion, Other: - Positive behavioral disturbance - Allergies/Home Medications Allergies/Adverse Reactions: Allergies Allergy/AdvReac Type Severity Reaction Status Date / Time No Known Allergies Allergy Verified 07/19/19 15:58 Home Medications: Home Medications NK [No Home Medications Reported] 07/22/19 [History Confirmed 07/22/19] PMH/Surg Hx/FS Hx/Imm Hx Previously Healthy: No - LIMITED DUE TO LEVEL 5 CAVEAT - ALTERED MENTAL STATUS. Endocrine/Hematology History: Reports: Hx Thyroid Disease - Hypothyroidism Denies: Hx Anticoagulant Therapy, Hx Blood Disorders, Hx Blood Transfusions, Hx Bone Marrow Disease, Hx Diabetes, Hx Systemic Lupus Erythematosus, Hx Sickle Cell Disease, Hx Anemia, Hx Unexplained Bleeding, Other Endocrine/Hematological Disorders Cardiovascular History: Reports: Hx Hypertension Denies: Hx Aneurysm, Hx Angina, Hx Angioplasty, Hx Auto Implanted Cardiovert Defib, Hx Cardiac Arrest, Hx Cardiomegaly, Hx Congenital Heart Disease, Hx Congestive Heart Failure, Hx Coronary Artery Disease, Hx Deep Vein Thrombosis, Hx Embolism, Hx Hypercholesterolemia, Hx Hypotension, Hx Pacemaker/ICD, Hx Peripheral Vascular Disease, Hx Rheumatic Fever, Hx Syncope, Hx Valvular Heart Disease, Other Cardiovascular Problems/Disorders Respiratory History: Reports: Hx Pneumonia, Hx Seasonal Allergies Denies: Hx Asthma, Hx Chronic Bronchitis, Hx Chronic Obstructive Pulmonary Disease (COPD), Hx Cystic Fibrosis, Hx Lung Cancer, Hx Pleural Effusion, Hx Pulmonary Edema, Hx Pulmonary Embolism, Hx Sleep Apnea, Other Respiratory Problems/Disorders GI History: Reports: Hx Ulcer Denies: Hx Cirrhosis, Hx Crohn's Disease, Hx Diverticulosis, Hx Gall Bladder Disease, Hx Gastroesophageal Reflux Disease, Hx Gastrointestinal Bleed, Hx Hiatal Hernia, Hx Irritable Bowel, Hx Jaundice, Hx Obstructive Bowel, Hx Ileostomy, Hx Pyloric Stenosis, Other GI Disorders History: Reports: Hx Acute Renal Failure Denies: Hx Benign Prostatic Hyperplasia, Hx Chronic Renal Failure, Hx Dialysis, Hx Kidney Infection, Hx Kidney Stones, Hx Renal Disease, Other Problems/Disorders Musculoskeletal History: Denies: Hx Arthritis, Hx Back Problems, Hx Bursitis, Hx Congenital Bone Abnormalities, Hx Fibromyalgia, Hx Gout, Hx Orthopedic Injury, Hx Osteoporosis, Hx Scoliosis, Hx Tendonitis, Other Musculoskeletal History Sensory History: Denies: Hx Cataracts, Hx Contacts or Glasses, Hx Eye Injury, Hx Eye Prosthesis, Hx Glaucoma, Hx Legally Blind, Hx Macular Degeneration, Hx Vision Problem, Hx Deafness, Hx Hearing Aid, Other Sensory Impairments Opthamlomology History: Denies: Hx Cataracts, Hx Contacts or Glasses, Hx Eye Injury, Hx Eye Prosthesis, Hx Glaucoma, Hx Legally Blind, Hx Macular Degeneration, Hx Vision Problem, Other Sensory Impairments EENT History: Denies: Hx Deafness Neurological History: Reports: Hx Headaches, Hx Seizures Denies: Hx Dementia, Hx Developmental Delay, Hx Migraine, Hx Nerve Disease, Hx Spinal Cord Injury, Hx Transient Ischemic Attacks (TIA), Other Neuro Impairments/Disorders Psychiatric History: Reports: Hx Anxiety, Hx Depression, Hx Post Traumatic Stress Disorder, Hx Inpatient Treatment, Hx Community Mental Health Tx, Hx Bipolar Disorder, Hx of Violent Episodes Against Others, Hx Substance Abuse, Other Psychiatric Issues/Disorders Denies: Hx Attention Deficit Hyperactivity Disorder, Hx Eating Disorder, Hx Panic Disorder, Hx Schizophrenia, Hx Suicide Attempt - Cancer History Cancer Type, Location and Year: None reported Hx Chemotherapy: No Hx Radiation Therapy: No - Surgical History Surgical History: None Surgery Procedure, Year, and Place: none Hx Anesthesia Reactions: No - Immunization History Date of Tetanus Vaccine: Unknown Date of Influenza Vaccine: None Infectious Disease History: Unable to Obtain/Confirm Infectious Disease History: Reports: Hx Hepatitis - Hep C Denies: Hx Clostridium Difficile, Hx Human Immunodeficiency Virus (HIV), Hx of Known/Suspected MRSA, Hx Shingles, Hx Tuberculosis, Hx Known/Suspected VRE, Hx Known/Suspected VRSA, History Other Infectious Disease, Traveled Outside the [place] in Last 30 Days - Family History Known Family History: Positive: Other - cancer Negative: Renal Disease Family History: father - ETOH - Social History Occupation: Unemployed Alcohol Use: Weekly Alcohol Amount: beers Hx Substance Use: Yes Substance Use Type: 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 - Coricidin Substance Use Comment - Amount & Last Used: Multiple Coricidin overdose Hx Tobacco Use: Yes Smoking Status (MU): Heavy Every Day Tobacco Smoker Type: Cigarettes Have You Smoked in the Last Year: Yes Review of Systems Positive: Other - Positive dilated pupils Positive: Other - Positive tachycardic and hypertensive Psychological: Other - Positive behavioral changes All Other Systems Reviewed And Are Negative: Yes - Comments Additional Review of Systems Comments: REVIEW OF SYSTEMS IS LIMITED DUE TO LEVEL 5 CAVEAT - ALTERED MENTAL STATUS. Physical Exam - Summary Physical Exam Summary: PHYSICAL EXAM IS LIMITED DUE TO LEVEL 5 CAVEAT - ALTERED MENTAL STATUS. VITAL SIGNS: Reviewed. GENERAL: Patient is a well-developed and obese male who is lying comfortable in the stretcher. Patient is not in any acute respiratory distress. Patient appears to be under the influence and is confused. HEAD AND FACE: No signs of trauma. No ecchymosis, hematomas or skull depressions. No sinus tenderness. EYES: PERRLA, EOMI x 2, No injected conjunctiva, no nystagmus. Dilated pupils. EARS: Hearing grossly intact. Ear canals and tympanic membranes are within normal limits. MOUTH: Oropharynx within normal limits. NECK: Supple, trachea is midline, no adenopathy, no JVD, no carotid bruit, no c- spine tenderness, neck with full ROM. CHEST: Symmetric, no tenderness at palpation. LUNGS: Clear to auscultation bilaterally. No wheezing or crackles. CVS: Regular rate and rhythm, S1 and S2 present, no murmurs or gallops appreciated. ABDOMEN: Soft, non-tender. No signs of distention. No rebound, no guarding, and no masses palpated. Bowel sounds are normal. EXTREMITIES: FROM in all major joints, no edema, no cyanosis or clubbing. NEURO: Alert and oriented x 3. No acute neurological deficits. Speech is normal and follows commands. Patient is confused. No asterixis. SKIN: Dry and warm. Triage Information Reviewed: Yes Vital Signs On Initial Exam: Initial Vitals Temp Pulse Resp BP Pulse Ox 99.1 F 128 20 164/119 95 07/22/19 13:18 07/22/19 13:18 07/22/19 13:18 07/22/19 13:18 07/22/19 13:18 Vital Signs Reviewed: Yes Completion Of Physical Exam Limited Due To: Altered Mental Status, Level 5 Procedures - Sedation Patient Received Moderate/Deep Sedation with Procedure: No Diagnostics - Vital Signs Vital Signs Temp Pulse Resp BP Pulse Ox 07/22/19 13:22 121 28 164/119 96 07/22/19 13:18 99.1 F 128 20 164/119 95 - Laboratory Result Diagrams: 07/22/19 13:34 07/22/19 13:34 Lab Statement: Any lab studies that have been ordered have been reviewed, and results considered in the medical decision making process. - EKG 13:34 Cardiac Rate: Tachycardia - 114 BPM EKG Rhythm: Sinus Tachycardia ST Segment: Normal Ectopy: None Summary of EKG Findings: EKG at 13:34 shows sinus tachycardia with 114 BPM, no ST elevations, normal axis. Reviewed and interpreted by Dr. Fenton. Re-Evaluation - Re-Evaluation First Eval Re-Evaluation Time: 21:02 Change: Improved Comment: At 21:02, patient is tolerating PO and is able to walk with a steady gait. 21:30 Re-Evaluation Time: 21:30 Change: Unchanged Comment: At 21:30, patient denies any suicidal or homicidal ideations. He reports taking the dextromethorphan to get "high." Course/Dx - Course Assessment/Plan: LIMITED DUE TO LEVEL 5 CAVEAT - ALTERED MENTAL STATUS. Patient is a 29 y/o M presenting to the ED via EMS for a chief complaint of altered mental status. Per EMS, patient had behavioral changes and was acting strangely. On EMS arrival, patient was hypertensive, tachycardic, and had dilated pupils. EMS reports he took 64 pills of dextromethorphan. In the ED course the patient was placed on a vehicle monitor technician, IV access was obtained, and IV fluids started. Blood tests are w/o any significant abnormality except for glucose 66, AST 125, AST is 103, CPK is 7083, TSH is 19.1. Patient usually has high TSH. I discussed the case with poison control and they recommended observation for approximately 6 hours. In the ED course the patient was given more IV fluids and I repeated the CPK and which is 5633. Patient CPK is improving. Patient was observed for approximately 8- hours and the patient is alert and oriented 3. The patient is eating and drinking without any nausea or vomiting. The patient has a good and steady walk, therefore, he will be discharged home to follow-up with his PCP. The patient is hemodynamically stable, and alert and oriented 3. - Diagnoses Provider Diagnoses: Overdose, Rhabdomyolysis - Physician Notifications Discussed Care Of Patient With: Poison Control - At 13:47, Poison Control recommends the patient be monitored for at least 6 hours. Time Discussed With Above Provider: 13:47 Discharge ED - Sign-Out/Discharge Documenting (check all that apply): Patient Departure - Discharge - Discharge Plan Condition: Stable Disposition: HOME Patient Education Materials: Adult Overdose (ED) Referrals: [facility] [Outside] Additional Instructions: FOLLOW UP WITH YOUR PRIMARY CARE PROVIDER WITHIN THREE DAYS. RETURN TO THE EMERGENCY DEPARTMENT FOR ANY WORSENING OR NEW SYMPTOMS. - Billing Disposition and Condition Condition: STABLE Disposition: Home - Attestation Statements Document Initiated by Mario: Yes Documenting Scribe: Shira De Oliveira Provider For Whom Mario is Documenting (Include Credential): Gorge Fenton MD Scribe Attestation: Shira Brunner scribed for Gorge Fenton MD on 07/22/19 at 2142. Scribe Documentation Reviewed: Yes Provider Attestation: The documentation as recorded by the Shira fournier accurately reflects the service I personally performed and the decisions made by Gorge mayen MD Status of Scribe Document: Viewed
[2019-07-22 13:44] LABS: ABS Basophils 0.1 10^3/ul (0-0.2); ABS Eosinophils 0.1 10^3/ul (0-0.6); ABS Lymphocytes 1.5 10^3/ul (1.0-4.8); ABS Monocytes 0.7 10^3/ul (0-0.8); ABS Neutrophils 8.1 10^3/ul (1.5-7.7); Eosinophil % 0.8 %; Hematocrit 45 % (42-52); Hemoglobin 15.4 g/dL (14.0-18.0); Lymphocyte % 14.3 %; Mean Corpuscular HGB Conc 34 g/dL (31-36); Mean Corpuscular Hemoglobin 30 pg (27-31); Mean Corpuscular Volume 88 fL (80-94); Mean Platelet Volume 8.7 fL (7.4-10.4); Nucleated Red Blood Cells % 0.1; Platelet Count 200 10^3/uL (150-450); Red Blood Count 5.13 10^6 /uL (4.18-5.48); Red Cell Distribution Width 15 % (10-15); White Blood Count 10.4 10^3/uL (3.5-10.8)
[2019-07-22 13:59] LABS: ALT 103 U/L (7-52); AST 125 U/L (13-39); Albumin 4.7 g/dL (3.2-5.2); Albumin/Globulin Ratio 1.5 (1-3); Alkaline Phosphatase 64 U/L (34-104); Anion Gap 9 mmol/L (2-11); BUN/Creatinine Ratio 14.4 (8-20); Blood Urea Nitrogen 13 mg/dL (6-24); CO2 Carbon Dioxide 25 mmol/L (22-32); Calcium 9.7 mg/dL (8.6-10.3); Chloride 105 mmol/L (101-111); EGFR African American 120.7 (>60); EGFR Non-African American 99.8 (>60); Globulin 3.1 g/dL (2-4); Glucose 66 mg/dL (70-100); Potassium 3.8 mmol/L (3.5-5.0); Sodium 139 mmol/L (135-145); Total Protein 7.8 g/dL (6.4-8.9)
[2019-07-22 14:17] LABS: Acetaminophen < 15 mcg/mL; Alcohol < 10 mg/dL (<10); Creatine Kinase 7088 U/L (10-223); Salicylate < 2.50 mg/dL (<30)
[2019-07-22 14:32] LABS: TSH (Thyroid Stimulating Horm) 19.16 mcIU/mL (0.34-5.60)
[2019-07-22 17:06] LABS: Urine Appearance Clear; Urine Bilirubin Negative (Negative); Urine Blood Negative (Negative); Urine Color Colorless; Urine Glucose Negative (Negative); Urine Ketones Negative (Negative); Urine Nitrite Negative (Negative); Urine Protein Negative (Negative); Urine Specific Gravity 1.004 (1.010-1.030); Urine Urobilinogen Negative (Negative)
[2019-07-22 17:20] LABS: Urine Benzodiazepine Screen None Detected (None Detect); Urine Opiates Screen None Detected (None Detect)
[2019-07-22] MEDS ORDERED: NS 0.9% 1000 ML** 2,000 ML IV ONE (19:20)
[2019-07-22] MEDS ORDERED: Dextrose 25% PED SYRINGE 10ml IV ONE (20:45)
[2019-07-22 22:20] VITALS: BP 142/99
== END 2019-07-22 22:20 | disposition home or self-care (01) ==
LOC: ED 13:15 → EEVIPCON 13:15 → ED 22:20
DX: T48.3X1A Poisoning by antitussives, accidental (unintentional), initial encounter (principal); M62.82 Rhabdomyolysis; Y92.9 Unspecified place or not applicable; E03.9 Hypothyroidism, unspecified; I10 Essential (primary) hypertension; F31.9 Bipolar disorder, unspecified; F41.9 Anxiety disorder, unspecified; F43.10 Post-traumatic stress disorder, unspecified; F17.210 Nicotine dependence, cigarettes, uncomplicated
CPT/HCPCS: 36415; 80053; 80307; 80320; 80329; 81003; 82550; 83605; 84443; 85025; 93005; 96360; 96361; 99284; G0480

== ENCOUNTER 2019-07-25 10:21 | Emergency (ER) | payer OTHER ==
[2019-07-25 11:06] LABS: ABS Basophils 0.1 10^3/ul (0-0.2); ABS Eosinophils 0.1 10^3/ul (0-0.6); ABS Lymphocytes 1.7 10^3/ul (1.0-4.8); ABS Monocytes 0.6 10^3/ul (0-0.8); ABS Neutrophils 4.9 10^3/ul (1.5-7.7); Eosinophil % 1.4 %; Hematocrit 43 % (42-52); Hemoglobin 14.5 g/dL (14.0-18.0); Lymphocyte % 23.8 %; Mean Corpuscular HGB Conc 34 g/dL (31-36); Mean Corpuscular Hemoglobin 30 pg (27-31); Mean Corpuscular Volume 88 fL (80-94); Mean Platelet Volume 8.7 fL (7.4-10.4); Platelet Count 182 10^3/uL (150-450); Red Blood Count 4.87 10^6 /uL (4.18-5.48); Red Cell Distribution Width 15 % (10-15); White Blood Count 7.3 10^3/uL (3.5-10.8)
[2019-07-25 11:08] LABS: Urine Appearance Clear; Urine Bilirubin Negative (Negative); Urine Blood Negative (Negative); Urine Color Colorless; Urine Glucose Negative (Negative); Urine Ketones Negative (Negative); Urine Nitrite Negative (Negative); Urine Protein Negative (Negative); Urine Specific Gravity 1.001 (1.010-1.030); Urine Urobilinogen Negative (Negative)
--- NOTE | 2019-07-25 11:08 | ED ---
Substance Abuse/Use - HPI Summary HPI Summary: Patient is a 29 y/o biological male who presents to [facility] via EMS after consuming approximately 48 pills of coricidin at around 0800 07/25/19 in an attempt to get high. Patient called EMS. Currently, he states that he feels "uneasy". He denies any other substance abuse and alcohol usage. Patient is on levothyroxine and bupropion. During his previous visit to [facility], patient was admitted for rhabdomyolysis and was also reported to have exhibited seizure activity. Patient was counselled on his substance abuse. Patient is followed by the ACT team. Fever, chills, erythema of eyes, sore throat, CP, SOB, cough, abdominal pain, N/V, dysuria, hematuria, myalgia, edema, rash, or dizziness are not reported. On triage, pain is rated 0/10 in severity. On senior manager quality assurance, nothing is noted to aggravate or alleviate Sx. Home medications and allergies are reviewed. - History Of Current Complaint Chief Complaint: EDOverdose Stated Complaint: OVERDOSE PER EMS Hx Obtained From: Patient Onset/Duration of Drug/ETOH Abuse: Hours Ingestion History: Type/Name Of Drug - coricidin, Amount Ingested - 48 pills Overdose Characteristics: Oral Character: Other - "uneasy" Aggravating Factor(s): Nothing Alleviating Factor(s): Nothing Associated Signs And Symptoms: Negative, Other: - Fever, chills, erythema of eyes, sore throat, CP, SOB, cough, abdominal pain, N/V, dysuria, hematuria, myalgia, edema, rash, or dizziness are not reported. - Allergies/Home Medications Allergies/Adverse Reactions: Allergies Allergy/AdvReac Type Severity Reaction Status Date / Time No Known Allergies Allergy Verified 07/19/19 15:58 Home Medications: Home Medications NK [No Home Medications Reported] 07/25/19 [History Confirmed 07/25/19] PMH/Surg Hx/FS Hx/Imm Hx Endocrine/Hematology History: Reports: Hx Thyroid Disease - Hypothyroidism Denies: Hx Anticoagulant Therapy, Hx Blood Disorders, Hx Blood Transfusions, Hx Bone Marrow Disease, Hx Diabetes, Hx Systemic Lupus Erythematosus, Hx Sickle Cell Disease, Hx Anemia, Hx Unexplained Bleeding, Other Endocrine/Hematological Disorders Cardiovascular History: Reports: Hx Hypertension Denies: Hx Aneurysm, Hx Angina, Hx Angioplasty, Hx Auto Implanted Cardiovert Defib, Hx Cardiac Arrest, Hx Cardiomegaly, Hx Congenital Heart Disease, Hx Congestive Heart Failure, Hx Coronary Artery Disease, Hx Deep Vein Thrombosis, Hx Embolism, Hx Hypercholesterolemia, Hx Hypotension, Hx Pacemaker/ICD, Hx Peripheral Vascular Disease, Hx Rheumatic Fever, Hx Syncope, Hx Valvular Heart Disease, Other Cardiovascular Problems/Disorders Respiratory History: Reports: Hx Pneumonia, Hx Seasonal Allergies Denies: Hx Asthma, Hx Chronic Bronchitis, Hx Chronic Obstructive Pulmonary Disease (COPD), Hx Cystic Fibrosis, Hx Lung Cancer, Hx Pleural Effusion, Hx Pulmonary Edema, Hx Pulmonary Embolism, Hx Sleep Apnea, Other Respiratory Problems/Disorders GI History: Reports: Hx Ulcer Denies: Hx Cirrhosis, Hx Crohn's Disease, Hx Diverticulosis, Hx Gall Bladder Disease, Hx Gastroesophageal Reflux Disease, Hx Gastrointestinal Bleed, Hx Hiatal Hernia, Hx Irritable Bowel, Hx Jaundice, Hx Obstructive Bowel, Hx Ileostomy, Hx Pyloric Stenosis, Other GI Disorders History: Reports: Hx Acute Renal Failure Denies: Hx Benign Prostatic Hyperplasia, Hx Chronic Renal Failure, Hx Dialysis, Hx Kidney Infection, Hx Kidney Stones, Hx Renal Disease, Other Problems/Disorders Musculoskeletal History: Denies: Hx Arthritis, Hx Back Problems, Hx Bursitis, Hx Congenital Bone Abnormalities, Hx Fibromyalgia, Hx Gout, Hx Orthopedic Injury, Hx Osteoporosis, Hx Scoliosis, Hx Tendonitis, Other Musculoskeletal History Sensory History: Denies: Hx Cataracts, Hx Contacts or Glasses, Hx Eye Injury, Hx Eye Prosthesis, Hx Glaucoma, Hx Legally Blind, Hx Macular Degeneration, Hx Vision Problem, Hx Deafness, Hx Hearing Aid, Other Sensory Impairments Opthamlomology History: Denies: Hx Cataracts, Hx Contacts or Glasses, Hx Eye Injury, Hx Eye Prosthesis, Hx Glaucoma, Hx Legally Blind, Hx Macular Degeneration, Hx Vision Problem, Other Sensory Impairments Neurological History: Reports: Hx Headaches, Hx Seizures Denies: Hx Dementia, Hx Developmental Delay, Hx Migraine, Hx Nerve Disease, Hx Spinal Cord Injury, Hx Transient Ischemic Attacks (TIA), Other Neuro Impairments/Disorders Psychiatric History: Reports: Hx Anxiety, Hx Depression, Hx Post Traumatic Stress Disorder, Hx Inpatient Treatment, Hx Community Mental Health Tx, Hx Bipolar Disorder, Hx of Violent Episodes Against Others, Hx Substance Abuse, Other Psychiatric Issues/Disorders Denies: Hx Attention Deficit Hyperactivity Disorder, Hx Eating Disorder, Hx Panic Disorder, Hx Schizophrenia, Hx Suicide Attempt - Cancer History Cancer Type, Location and Year: None reported Hx Chemotherapy: No Hx Radiation Therapy: No - Surgical History Surgery Procedure, Year, and Place: none Hx Anesthesia Reactions: No - Immunization History Date of Tetanus Vaccine: Unknown Date of Influenza Vaccine: None Infectious Disease History: No Infectious Disease History: Reports: Hx Hepatitis - Hep C Denies: Hx Clostridium Difficile, Hx Human Immunodeficiency Virus (HIV), Hx of Known/Suspected MRSA, Hx Shingles, Hx Tuberculosis, Hx Known/Suspected VRE, Hx Known/Suspected VRSA, History Other Infectious Disease, Traveled Outside the [place] in Last 30 Days - Family History Known Family History: Positive: Other - cancer Negative: Renal Disease Family History: father - ETOH - Social History Alcohol Use: Weekly Alcohol Amount: beers Hx Substance Use: Yes Substance Use Type: 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 Substance Use Comment - Amount & Last Used: Multiple Coricidin overdose Hx Tobacco Use: Yes Smoking Status (MU): Heavy Every Day Tobacco Smoker Type: Cigarettes Have You Smoked in the Last Year: Yes Review of Systems Constitutional: Other - positive - substance abuse Negative: Fever, Chills Negative: Erythema Negative: Sore Throat Negative: Chest Pain Negative: Shortness Of Breath, Cough Negative: Abdominal Pain, Vomiting, Nausea Negative: dysuria, hematuria Negative: Myalgia, Edema Negative: Rash Neurological: Other - negative - dizziness Psychological: Other - positive - "uneasy" All Other Systems Reviewed And Are Negative: Yes Physical Exam - Summary Physical Exam Summary: Constitutional: Well-developed, Well-nourished, Alert. (-) Distressed Skin: Warm to Touch; Dry HENT: Normocephalic; Atraumatic Eyes: Conjunctiva normal Neck: Musculoskeletal ROM normal neck. (-) JVD, (-) Stridor, (-) Tracheal deviation Cardio: Rhythm regular, rate normal, Heart sounds normal; Intact distal pulses; The pedal pulses are 2+ and symmetric. Radial pulses are 2+ and symmetric. (-) Murmur Pulmonary/Chest wall: Effort normal. (-) Respiratory distress, (-) Wheezes, (-) Rales Abd: Soft, (-) tenderness, (-) Distension, (-) Guarding, (-) Rebound Musculoskeletal: (-) Edema Lymph: (-) Cervical adenopathy Neuro: Alert, Oriented x3 Psych: Mood and affect Normal Triage Information Reviewed: Yes Vital Signs On Initial Exam: Initial Vitals Temp Pulse Resp BP Pulse Ox 99.8 F 103 14 160/108 96 07/25/19 10:23 07/25/19 10:23 07/25/19 10:23 07/25/19 10:23 07/25/19 10:23 Vital Signs Reviewed: Yes Procedures - Sedation Patient Received Moderate/Deep Sedation with Procedure: No Diagnostics - Vital Signs Vital Signs Temp Pulse Resp BP Pulse Ox 07/25/19 10:23 99.8 F 103 14 160/108 96 - Laboratory Result Diagrams: 07/25/19 10:51 07/25/19 10:51 Lab Statement: Any lab studies that have been ordered have been reviewed, and results considered in the medical decision making process. - EKG 1110 Cardiac Rate: NL - rate of 94 BPM EKG Rhythm: Sinus Rhythm Summary of EKG Findings: EKG showed NSR with rate of 94 BPM, no STEMI. ED physician has reviewed and interpreted this EKG. Re-Evaluation - Re-Evaluation First Eval Re-Evaluation Time: 13:43 Comment: 1343 - Patient remains tachycardic at this time. Second Eval Re-Evaluation Time: 14:16 Comment: Patient no longer tachycardic and was capable of ambulating around ED with a steady gait. He will be discharged from ED. Course/Dx - Course Course Of Treatment: Patient is a 29 y/o biological male who presents to [facility] via EMS after consuming approximately 48 pills of coricidin at around 0800 in an attempt to get high. Patient called EMS. Currently, he states that he feels "uneasy". He denies any other substance abuse and alcohol usage. Patient is on levothyroxine and bupropion. During his previous visit to [facility], patient was admitted for rhabdomyolysis and was also reported to have exhibited seizure activity. Patient was counselled on his substance abuse. Patient is followed by the ACT team. On exam, patient's skin is noted to be warm to touch. EKG showed NSR with rate of 94 BPM, no STEMI. Bloodwork was within normal limits with exception of TSH 7.63 and ALT 64. UA and urine tox screen were negative. There are no signs of myoglobin in urine, urine is normal colored. Patient was initially tachycardic but this has since resolved. Patient is capalbe of ambulating with a steady gait. Andres was discharged to home and will follow up with ACT team, [facility], and PCP. - Diagnoses Provider Diagnoses: Substance abuse Discharge ED - Sign-Out/Discharge Documenting (check all that apply): Patient Departure - discharge - Discharge Plan Condition: Stable Disposition: HOME Patient Education Materials: Polysubstance Abuse (ED) Referrals: Care [facility] [Outside] - 3 Days [facility] [Outside] - 3 Days [facility] [Outside] - 3 Days Additional Instructions: PLEASE FOLLOW UP WITH YOUR PRIMARY CARE PHYSICIAN, [facility] , AND THE ACT TEAM WITHIN THREE DAYS. PLEASE RETURN TO ED FOR ANY NEW OR CONCERNING SYMPTOMS. - Attestation Statements Document Initiated by Scribe: Yes Documenting Scribe: SHERWIN HALL Provider For Whom Shelleyibe is Documenting (Include Credential): MILTON SHELTON MD Scribe Attestation: SHERWIN Brunner, scribed for MILTON SHELTON MD on 07/25/19 at 1504. Status of Scribe Document: Ready
[2019-07-25 11:25] LABS: Urine Benzodiazepine Screen None Detected (None Detect); Urine Opiates Screen None Detected (None Detect)
[2019-07-25 11:27] LABS: ALT 64 U/L (7-52); AST 33 U/L (13-39); Albumin 4.3 g/dL (3.2-5.2); Albumin/Globulin Ratio 1.6 (1-3); Alkaline Phosphatase 57 U/L (34-104); Anion Gap 6 mmol/L (2-11); Blood Urea Nitrogen 12 mg/dL (6-24); CO2 Carbon Dioxide 25 mmol/L (22-32); Calcium 9.1 mg/dL (8.6-10.3); Chloride 109 mmol/L (101-111); EGFR African American 138.3 (>60); EGFR Non-African American 114.3 (>60); Globulin 2.7 g/dL (2-4); Glucose 89 mg/dL (70-100); Potassium 3.7 mmol/L (3.5-5.0); Sodium 140 mmol/L (135-145)
[2019-07-25 11:31] LABS: Acetaminophen < 15 mcg/mL; Alcohol < 10 mg/dL (<10); Salicylate < 2.50 mg/dL (<30)
[2019-07-25 11:46] LABS: TSH (Thyroid Stimulating Horm) 7.63 mcIU/mL (0.34-5.60)
[2019-07-25 14:29] VITALS: BP 147/97
== END 2019-07-25 14:27 | disposition home or self-care (01) ==
LOC: ED 10:21
DX: F19.10 Other psychoactive substance abuse, uncomplicated (principal); F17.210 Nicotine dependence, cigarettes, uncomplicated; E03.9 Hypothyroidism, unspecified; I12.9 Hypertensive chronic kidney disease with stage 1 through stage 4 chronic kidney disease, or unspecified chronic kidney disease; N18.9 Chronic kidney disease, unspecified; R51 Headache; F41.9 Anxiety disorder, unspecified; F32.9 Major depressive disorder, single episode, unspecified
CPT/HCPCS: 36415; 80053; 80307; 80320; 80329; 81003; 84443; 85025; 93005; 99283; G0480

== ENCOUNTER 2019-07-27 12:49 | Emergency (ER) | payer OTHER ==
[2019-07-27] MEDS ORDERED: NS 0.9% 1000 ML** 1,000 ML IV ONE (12:59)
--- NOTE | 2019-07-27 13:03 | ED ---
Substance Abuse/Use - HPI Summary HPI Summary: Pt is a 29 y/o M presenting to the ED brought in by EMS for intoxication. LEVEL 5 CAVEAT: Pts full hx and physical is limited d/t intoxication. Pt was seen falling out of his chair at the rescue mission, and that he smells of alcohol. - History Of Current Complaint Chief Complaint: EDSubstanceAbuse Stated Complaint: INTOXICATED PER EMS Hx Obtained From: Patient Onset/Duration of Drug/ETOH Abuse: Hours Overdose Characteristics: Oral Severity Initially: Moderate Severity Currently: Moderate Character: Lethargic Aggravating Factor(s): Nothing Alleviating Factor(s): Nothing Associated Signs And Symptoms: Negative - Allergies/Home Medications Allergies/Adverse Reactions: Allergies Allergy/AdvReac Type Severity Reaction Status Date / Time No Known Allergies Allergy Verified 07/27/19 13:04 PMH/Surg Hx/FS Hx/Imm Hx Previously Healthy: Yes Endocrine/Hematology History: Reports: Hx Thyroid Disease - Hypothyroidism Denies: Hx Anticoagulant Therapy, Hx Blood Disorders, Hx Blood Transfusions, Hx Bone Marrow Disease, Hx Diabetes, Hx Systemic Lupus Erythematosus, Hx Sickle Cell Disease, Hx Anemia, Hx Unexplained Bleeding, Other Endocrine/Hematological Disorders Cardiovascular History: Reports: Hx Hypertension Denies: Hx Aneurysm, Hx Angina, Hx Angioplasty, Hx Auto Implanted Cardiovert Defib, Hx Cardiac Arrest, Hx Cardiomegaly, Hx Congenital Heart Disease, Hx Congestive Heart Failure, Hx Coronary Artery Disease, Hx Deep Vein Thrombosis, Hx Embolism, Hx Hypercholesterolemia, Hx Hypotension, Hx Pacemaker/ICD, Hx Peripheral Vascular Disease, Hx Rheumatic Fever, Hx Syncope, Hx Valvular Heart Disease, Other Cardiovascular Problems/Disorders Respiratory History: Reports: Hx Pneumonia, Hx Seasonal Allergies Denies: Hx Asthma, Hx Chronic Bronchitis, Hx Chronic Obstructive Pulmonary Disease (COPD), Hx Cystic Fibrosis, Hx Lung Cancer, Hx Pleural Effusion, Hx Pulmonary Edema, Hx Pulmonary Embolism, Hx Sleep Apnea, Other Respiratory Problems/Disorders GI History: Reports: Hx Ulcer Denies: Hx Cirrhosis, Hx Crohn's Disease, Hx Diverticulosis, Hx Gall Bladder Disease, Hx Gastroesophageal Reflux Disease, Hx Gastrointestinal Bleed, Hx Hiatal Hernia, Hx Irritable Bowel, Hx Jaundice, Hx Obstructive Bowel, Hx Ileostomy, Hx Pyloric Stenosis, Other GI Disorders History: Reports: Hx Acute Renal Failure Denies: Hx Benign Prostatic Hyperplasia, Hx Chronic Renal Failure, Hx Dialysis, Hx Kidney Infection, Hx Kidney Stones, Hx Renal Disease, Other Problems/Disorders Musculoskeletal History: Denies: Hx Arthritis, Hx Back Problems, Hx Bursitis, Hx Congenital Bone Abnormalities, Hx Fibromyalgia, Hx Gout, Hx Orthopedic Injury, Hx Osteoporosis, Hx Scoliosis, Hx Tendonitis, Other Musculoskeletal History Sensory History: Denies: Hx Cataracts, Hx Contacts or Glasses, Hx Eye Injury, Hx Eye Prosthesis, Hx Glaucoma, Hx Legally Blind, Hx Macular Degeneration, Hx Vision Problem, Hx Deafness, Hx Hearing Aid, Other Sensory Impairments Opthamlomology History: Denies: Hx Cataracts, Hx Contacts or Glasses, Hx Eye Injury, Hx Eye Prosthesis, Hx Glaucoma, Hx Legally Blind, Hx Macular Degeneration, Hx Vision Problem, Other Sensory Impairments Neurological History: Reports: Hx Headaches, Hx Seizures Denies: Hx Dementia, Hx Developmental Delay, Hx Migraine, Hx Nerve Disease, Hx Spinal Cord Injury, Hx Transient Ischemic Attacks (TIA), Other Neuro Impairments/Disorders Psychiatric History: Reports: Hx Anxiety, Hx Depression, Hx Post Traumatic Stress Disorder, Hx Inpatient Treatment, Hx Community Mental Health Tx, Hx Bipolar Disorder, Hx of Violent Episodes Against Others, Hx Substance Abuse, Other Psychiatric Issues/Disorders Denies: Hx Attention Deficit Hyperactivity Disorder, Hx Eating Disorder, Hx Panic Disorder, Hx Schizophrenia, Hx Suicide Attempt - Cancer History Cancer Type, Location and Year: None reported Hx Chemotherapy: No Hx Radiation Therapy: No - Surgical History Surgery Procedure, Year, and Place: none Hx Anesthesia Reactions: No - Immunization History Date of Tetanus Vaccine: Unknown Date of Influenza Vaccine: None Infectious Disease History: Unable to Obtain/Confirm Infectious Disease History: Reports: Hx Hepatitis - Hep C Denies: Hx Clostridium Difficile, Hx Human Immunodeficiency Virus (HIV), Hx of Known/Suspected MRSA, Hx Shingles, Hx Tuberculosis, Hx Known/Suspected VRE, Hx Known/Suspected VRSA, History Other Infectious Disease, Traveled Outside the [place] in Last 30 Days - Family History Known Family History: Positive: Other - cancer Negative: Renal Disease Family History: father - ETOH - Social History Alcohol Use: Weekly Alcohol Amount: beers Hx Substance Use: Yes Substance Use Type: 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 Substance Use Comment - Amount & Last Used: Multiple Coricidin overdose Hx Tobacco Use: Yes Smoking Status (MU): Heavy Every Day Tobacco Smoker Type: Cigarettes Have You Smoked in the Last Year: Yes Review of Systems - ROS Summary Review of Systems Summary: LEVEL 5 CAVEAT: Pts full hx and physical is limited d/t intoxication. All Other Systems Reviewed And Are Negative: No Physical Exam - Summary Physical Exam Summary: VITAL SIGNS: Reviewed. GENERAL: Patient is an obtunded male who is lying comfortable in the stretcher. Patient is not in any acute respiratory distress. HEAD AND FACE: No signs of trauma. No ecchymosis, hematomas or skull depressions. No sinus tenderness. EYES: PERRLA, EOMI x 2, No injected conjunctiva, no nystagmus. EARS: Hearing grossly intact. Ear canals and tympanic membranes are within normal limits. MOUTH: Oropharynx within normal limits. NECK: Supple, trachea is midline, no adenopathy, no JVD, no carotid bruit, no c- spine tenderness, neck with full ROM. CHEST: Symmetric, no tenderness at palpation. LUNGS: Clear to auscultation bilaterally. No wheezing or crackles. CVS: Regular rate and rhythm, S1 and S2 present, no murmurs or gallops appreciated. ABDOMEN: Soft, non-tender. No signs of distention. No rebound, no guarding, and no masses palpated. Bowel sounds are normal. EXTREMITIES: FROM in all major joints, no edema, no cyanosis or clubbing. NEURO: Awake with painful stimuli. No acute neurological deficits. Speech is normal and follows commands. SKIN: Dry and warm. Triage Information Reviewed: Yes Vital Signs On Initial Exam: Initial Vitals Temp Pulse Resp BP Pulse Ox 98.0 F 112 20 119/73 96 07/27/19 12:55 07/27/19 12:55 07/27/19 12:55 07/27/19 12:55 07/27/19 12:55 Vital Signs Reviewed: Yes Procedures - Sedation Patient Received Moderate/Deep Sedation with Procedure: No Diagnostics - Vital Signs Vital Signs Temp Pulse Resp BP Pulse Ox 07/27/19 12:55 98.0 F 112 20 119/73 96 - Laboratory Result Diagrams: 07/27/19 13:15 07/27/19 13:15 Lab Statement: Any lab studies that have been ordered have been reviewed, and results considered in the medical decision making process. Re-Evaluation - Re-Evaluation 1st re-eval Re-Evaluation Time: 16:30 Change: Unchanged Comment: Pt's pupils are very dilated. Course/Dx - Course Assessment/Plan: Pt is a 29 y/o M presenting to the ED brought in by EMS for intoxication. LEVEL 5 CAVEAT: Pts full hx and physical is limited d/t intoxication. Pt was seen falling out of his chair at the rescue mission, and that he smells of alcohol. In the ED course the patient was placed in a monitor car operator, IV access was obtained, IV fluids started. In the physical exam the patient is lethargic possibly secondary to alcohol intoxication and polysubstance abuse. Unable to obtain good history for the patient. Patient doesnt have any signs of trauma therefore I do not believe that the patient would benefit from previous CTs or C-spine CTs. Blood test w/o a significant abnormality except for slight chronic anemia with hemoglobin 13.7 and hematocrit 41, potassium 3.4, glucose 121, lactic acid is 2.9, AST is 48, AST is 57, CPK is 1253. Alcohol level is 214. EKG NSR at 84 BPM. I re-examined the patient 2 hours later and the patients pupils are dilated. Likely his usual when he takes Dextromethorphan. This time the patient and he is going to be observed for a couple hours for when the patient elizabeth up. The patient will be signed out to Dr. Richardson at shift change. The patient is resting comfortable and he is hemodynamically stable. - Diagnoses Provider Diagnoses: Alcohol intoxication Discharge ED - Sign-Out/Discharge Documenting (check all that apply): Sign-Out Patient Signing out patient TO: Brayan Richardson - Discharge Plan Condition: Stable Referrals: Care [facility] [Outside] - Billing Disposition and Condition Condition: STABLE - Attestation Statements Document Initiated by Scribe: Yes Documenting Scribe: Polly Boateng Provider For Whom Mario is Documenting (Include Credential): Gorge Fenton MD. Scribe Attestation: Polly Brunner, scribed for Gorge Fenton MD. on 07/27/19 at 1854. Scribe Documentation Reviewed: Yes Provider Attestation: The documentation as recorded by the Polly fournier accurately reflects the service I personally performed and the decisions made by me, Gorge Fenton MD. Status of Scribe Document: Viewed
[2019-07-27 13:24] LABS: ABS Basophils 0.1 10^3/ul (0-0.2); ABS Eosinophils 0.1 10^3/ul (0-0.6); ABS Lymphocytes 2.2 10^3/ul (1.0-4.8); ABS Monocytes 0.7 10^3/ul (0-0.8); ABS Neutrophils 4.8 10^3/ul (1.5-7.7); Eosinophil % 0.8 %; Hematocrit 41 % (42-52); Hemoglobin 13.7 g/dL (14.0-18.0); Lymphocyte % 28.5 %; Mean Corpuscular HGB Conc 34 g/dL (31-36); Mean Corpuscular Hemoglobin 30 pg (27-31); Mean Corpuscular Volume 89 fL (80-94); Nucleated Red Blood Cells % 0.1; Platelet Count 219 10^3/uL (150-450); Red Blood Count 4.62 10^6 /uL (4.18-5.48); Red Cell Distribution Width 15 % (10-15); White Blood Count 7.8 10^3/uL (3.5-10.8)
[2019-07-27 13:42] LABS: ALT 57 U/L (7-52); AST 48 U/L (13-39); Albumin 4.2 g/dL (3.2-5.2); Albumin/Globulin Ratio 1.6 (1-3); Alkaline Phosphatase 56 U/L (34-104); Anion Gap 9 mmol/L (2-11); BUN/Creatinine Ratio 11.9 (8-20); Blood Urea Nitrogen 10 mg/dL (6-24); CO2 Carbon Dioxide 23 mmol/L (22-32); Calcium 8.9 mg/dL (8.6-10.3); Chloride 104 mmol/L (101-111); Creatine Kinase 1253 U/L (10-223); EGFR African American 130.7 (>60); Globulin 2.6 g/dL (2-4); Glucose 121 mg/dL (70-100); Potassium 3.4 mmol/L (3.5-5.0); Sodium 136 mmol/L (135-145); Total Protein 6.8 g/dL (6.4-8.9)
[2019-07-27 13:52] LABS: Acetaminophen < 15 mcg/mL; Alcohol 214 mg/dL (<10); Salicylate < 2.50 mg/dL (<30)
[2019-07-27] MEDS ORDERED: NS 0.9% 1000 ML** 2,000 ML IV ONE (13:58)
--- NOTE | 2019-07-27 18:59 | ED ---
Progress - Progress Note Progress Note: This patient is a 29 y/o M who presents to the ED with chief complaint of alcohol intoxication. Patient is a sign-out from Dr. Gorge Fenton to Dr. Brayan Richardson at 1900 on 07/27/2019 at shift change pending re-evaluation and sobriety. Re-Evaluation - Re-Evaluation 1st re-eval Re-Evaluation Time: 21:25 Comment: Patient achieved sobriety. Patient will be discharged home with dx of alcohol intoxication and alcohol abuse. Course/Dx - Course Course Of Treatment: This patient is a 29 y/o M who presents to the ED with chief complaint of alcohol intoxication. Patient is a sign-out from Dr. Gorge Fenton to Dr. Brayan Richardson at 1900 on 07/27/2019 at shift change pending re- evaluation and sobriety. UA revealed urine specific gravity 1.004, presumptive positive for phencyclidine. In the ED course, patient achieved sobriety. Patient will be discharged home with dx of alcohol intoxication and alcohol abuse. - Diagnoses Provider Diagnoses: Alcohol intoxication, Alcohol abuse Discharge ED - Sign-Out/Discharge Documenting (check all that apply): Patient Departure - Discharge, Receiving Sign-Out Receiving patient FROM: Gorge Fenton - Discharge Plan Condition: Improved Disposition: HOME Patient Education Materials: Polysubstance Abuse (ED) Referrals: [facility] [Outside] Additional Instructions: Your substance abuse is a major danger to you, please get help while you still can. - Billing Disposition and Condition Condition: IMPROVED Disposition: Home - Attestation Statements Document Initiated by Mario: Yes Documenting Scribe: Arturo Worthington Provider For Whom Mario is Documenting (Include Credential): Brayan Richardson MD Scriblissy Attestation: Arturo Brunner, scribed for Brayan Richardson MD on 07/28/19 at 0641. Scribe Documentation Reviewed: Yes Provider Attestation: The documentation as recorded by the Arturo fournier accurately reflects the service I personally performed and the decisions made by me, Brayan Richardson MD Status of Scribe Document: Viewed Procedures - Sedation Patient Received Moderate/Deep Sedation with Procedure: No
[2019-07-27 21:51] LABS: Urine Appearance Clear; Urine Bilirubin Negative (Negative); Urine Blood Negative (Negative); Urine Color Yellow; Urine Glucose Negative (Negative); Urine Ketones Negative (Negative); Urine Nitrite Negative (Negative); Urine Protein Negative (Negative); Urine Specific Gravity 1.004 (1.010-1.030); Urine Urobilinogen Negative (Negative)
[2019-07-27 22:10] LABS: Urine Benzodiazepine Screen None Detected (None Detect); Urine Opiates Screen None Detected (None Detect)
[2019-07-27 23:02] VITALS: BP 139/97
== END 2019-07-27 23:01 | disposition home or self-care (01) ==
LOC: ED 12:49
DX: F10.129 Alcohol abuse with intoxication, unspecified (principal); E03.9 Hypothyroidism, unspecified; I10 Essential (primary) hypertension; F41.9 Anxiety disorder, unspecified; F31.9 Bipolar disorder, unspecified; F43.10 Post-traumatic stress disorder, unspecified; F17.210 Nicotine dependence, cigarettes, uncomplicated
CPT/HCPCS: 36415; 80053; 80307; 80320; 80329; 81003; 82550; 83605; 85025; 93005; 96360; 96361; 99283; G0480

== ENCOUNTER 2019-07-28 10:13 | Emergency (ER) | payer OTHER ==
--- NOTE | 2019-07-28 10:21 | ED ---
Substance Abuse/Use - HPI Summary HPI Summary: This patient is a 29 year old identifying female biological male brought in by EMS presenting to [facility] with a chief complaint of drug overdose. The patient states she took 45 Coricidin tablets. Patient has an extensive history of substance use/abuse. Patient was recently admitted. Patient is a level 5 caveat due to intoxication. - History Of Current Complaint Stated Complaint: OVERDOSE PER EMS Hx Obtained From: Patient Overdose Characteristics: Oral - Allergies/Home Medications Allergies/Adverse Reactions: Allergies Allergy/AdvReac Type Severity Reaction Status Date / Time No Known Allergies Allergy Verified 07/27/19 13:04 PMH/Surg Hx/FS Hx/Imm Hx Endocrine/Hematology History: Reports: Hx Thyroid Disease - Hypothyroidism Denies: Hx Anticoagulant Therapy, Hx Blood Disorders, Hx Blood Transfusions, Hx Bone Marrow Disease, Hx Diabetes, Hx Systemic Lupus Erythematosus, Hx Sickle Cell Disease, Hx Anemia, Hx Unexplained Bleeding, Other Endocrine/Hematological Disorders Cardiovascular History: Reports: Hx Hypertension Denies: Hx Aneurysm, Hx Angina, Hx Angioplasty, Hx Auto Implanted Cardiovert Defib, Hx Cardiac Arrest, Hx Cardiomegaly, Hx Congenital Heart Disease, Hx Congestive Heart Failure, Hx Coronary Artery Disease, Hx Deep Vein Thrombosis, Hx Embolism, Hx Hypercholesterolemia, Hx Hypotension, Hx Pacemaker/ICD, Hx Peripheral Vascular Disease, Hx Rheumatic Fever, Hx Syncope, Hx Valvular Heart Disease, Other Cardiovascular Problems/Disorders Respiratory History: Reports: Hx Pneumonia, Hx Seasonal Allergies Denies: Hx Asthma, Hx Chronic Bronchitis, Hx Chronic Obstructive Pulmonary Disease (COPD), Hx Cystic Fibrosis, Hx Lung Cancer, Hx Pleural Effusion, Hx Pulmonary Edema, Hx Pulmonary Embolism, Hx Sleep Apnea, Other Respiratory Problems/Disorders GI History: Reports: Hx Ulcer Denies: Hx Cirrhosis, Hx Crohn's Disease, Hx Diverticulosis, Hx Gall Bladder Disease, Hx Gastroesophageal Reflux Disease, Hx Gastrointestinal Bleed, Hx Hiatal Hernia, Hx Irritable Bowel, Hx Jaundice, Hx Obstructive Bowel, Hx Ileostomy, Hx Pyloric Stenosis, Other GI Disorders History: Reports: Hx Acute Renal Failure Denies: Hx Benign Prostatic Hyperplasia, Hx Chronic Renal Failure, Hx Dialysis, Hx Kidney Infection, Hx Kidney Stones, Hx Renal Disease, Other Problems/Disorders Musculoskeletal History: Denies: Hx Arthritis, Hx Back Problems, Hx Bursitis, Hx Congenital Bone Abnormalities, Hx Fibromyalgia, Hx Gout, Hx Orthopedic Injury, Hx Osteoporosis, Hx Scoliosis, Hx Tendonitis, Other Musculoskeletal History Sensory History: Denies: Hx Cataracts, Hx Contacts or Glasses, Hx Eye Injury, Hx Eye Prosthesis, Hx Glaucoma, Hx Legally Blind, Hx Macular Degeneration, Hx Vision Problem, Hx Deafness, Hx Hearing Aid, Other Sensory Impairments Opthamlomology History: Denies: Hx Cataracts, Hx Contacts or Glasses, Hx Eye Injury, Hx Eye Prosthesis, Hx Glaucoma, Hx Legally Blind, Hx Macular Degeneration, Hx Vision Problem, Other Sensory Impairments Neurological History: Reports: Hx Headaches, Hx Seizures Denies: Hx Dementia, Hx Developmental Delay, Hx Migraine, Hx Nerve Disease, Hx Spinal Cord Injury, Hx Transient Ischemic Attacks (TIA), Other Neuro Impairments/Disorders Psychiatric History: Reports: Hx Anxiety, Hx Depression, Hx Post Traumatic Stress Disorder, Hx Inpatient Treatment, Hx Community Mental Health Tx, Hx Bipolar Disorder, Hx of Violent Episodes Against Others, Hx Substance Abuse, Other Psychiatric Issues/Disorders Denies: Hx Attention Deficit Hyperactivity Disorder, Hx Eating Disorder, Hx Panic Disorder, Hx Schizophrenia, Hx Suicide Attempt - Cancer History Cancer Type, Location and Year: None reported Hx Chemotherapy: No Hx Radiation Therapy: No - Surgical History Surgery Procedure, Year, and Place: none Hx Anesthesia Reactions: No - Immunization History Date of Tetanus Vaccine: Unknown Date of Influenza Vaccine: None Infectious Disease History: Reports: Hx Hepatitis - Hep C Denies: Hx Clostridium Difficile, Hx Human Immunodeficiency Virus (HIV), Hx of Known/Suspected MRSA, Hx Shingles, Hx Tuberculosis, Hx Known/Suspected VRE, Hx Known/Suspected VRSA, History Other Infectious Disease - Family History Known Family History: Positive: Other - cancer Negative: Renal Disease Family History: father - ETOH - Social History Alcohol Use: Weekly Alcohol Amount: beers Hx Substance Use: Yes Substance Use Type: 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 Substance Use Comment - Amount & Last Used: Multiple Coricidin overdose Hx Tobacco Use: Yes Smoking Status (MU): Heavy Every Day Tobacco Smoker Type: Cigarettes Have You Smoked in the Last Year: Yes - Additional Comments History Additional Comments: PMHx is level 5 caveat due to intoxication. Review of Systems Negative: Fever - Overdose Psychological: Other - AMS/Overdose All Other Systems Reviewed And Are Negative: No - Comments Additional Review of Systems Comments: ROS is level 5 caveat due to intoxication Physical Exam - Summary Physical Exam Summary: Appearance: The patient is well-nourished in no acute distress and in no acute pain. Skin: The skin is warm and dry and skin color reflects adequate perfusion. HEENT: The head is normocephalic and atraumatic. The pupils are equal and reactive. The conjunctivae are clear and without drainage. Nares are patent and without drainage. Mouth reveals moist mucous membranes and the throat is without erythema and exudate. The external ears are intact. The ear canals are patent and without drainage. The tympanic membranes are intact. Neck: The neck is supple with full range of motion and non-tender. There are no carotid bruits. There is no neck vein distension. Respiratory: Chest is non-tender. Lungs are clear to auscultation and breath sounds are symmetrical and equal. Cardiovascular: Heart is regular rate and rhythm. There is no murmur or rub auscultated. There is no peripheral edema and pulses are symmetrical and equal. Abdomen: The abdomen is soft and non-tender. There are normal bowel sounds heard in all four quadrants and there is no organomegaly palpated. Musculoskeletal: There is no back tenderness noted. Extremities are non-tender with full range of motion. There is good capillary refill. There is no peripheral edema or calf tenderness elicited. Neurological: Patient is alert and oriented to person, place and time. The patient has symmetrical motor strength in all four extremities. Cranial nerves are grossly intact. Deep tendon reflexes are symmetrical and equal in all four extremities. Psychiatric: The patient has an appropriate affect and does not exhibit any anxiety or depression. Triage Information Reviewed: Yes Vital Signs Reviewed: Yes Completion Of Physical Exam Limited Due To: Level 5 Procedures - Sedation Patient Received Moderate/Deep Sedation with Procedure: No Diagnostics - Laboratory Result Diagrams: 07/28/19 11:07 07/28/19 11:07 Lab Statement: Any lab studies that have been ordered have been reviewed, and results considered in the medical decision making process. Course/Dx - Course Course Of Treatment: Sirai was not as obtunded as she usually is when she comes to the emergency department. She gradually brightened here during 6 hours of observation. She was ambulating steadily and conversing easily on discharge. - Diagnoses Provider Diagnoses: Overdose Discharge ED - Sign-Out/Discharge Documenting (check all that apply): Patient Departure - Discharge - Discharge Plan Condition: Stable Disposition: HOME Patient Education Materials: Adult Overdose (ED) Referrals: [facility] [Outside] Additional Instructions: Return to ED with new or worsening symptoms. - Billing Disposition and Condition Condition: STABLE Disposition: Home - Attestation Statements Document Initiated by Shelleyibe: Yes Documenting Scribe: Dario Hodgson Provider For Whom Mario is Documenting (Include Credential): Brayan Haider MD Scribe Attestation: Dario Brunner, scribed for Brayan Haider MD on 07/28/19 at 1725. Scribe Documentation Reviewed: Yes Provider Attestation: The documentation as recorded by the Dario fournier accurately reflects the service I personally performed and the decisions made by me, Brayan Haider MD Status of Scribe Document: Viewed
[2019-07-28] MEDS ORDERED: NS 0.9% 1000 ML** 2,000 ML IV ONE (10:39)
[2019-07-28 11:16] LABS: ABS Basophils 0.1 10^3/ul (0-0.2); ABS Eosinophils 0.1 10^3/ul (0-0.6); ABS Lymphocytes 1.9 10^3/ul (1.0-4.8); ABS Monocytes 0.7 10^3/ul (0-0.8); ABS Neutrophils 4.3 10^3/ul (1.5-7.7); Eosinophil % 1.7 %; Hematocrit 43 % (42-52); Hemoglobin 14.8 g/dL (14.0-18.0); Lymphocyte % 26.9 %; Mean Corpuscular HGB Conc 35 g/dL (31-36); Mean Corpuscular Hemoglobin 30 pg (27-31); Mean Corpuscular Volume 88 fL (80-94); Mean Platelet Volume 8.1 fL (7.4-10.4); Nucleated Red Blood Cells % 0.1; Platelet Count 229 10^3/uL (150-450); Red Blood Count 4.91 10^6 /uL (4.18-5.48); Red Cell Distribution Width 15 % (10-15); White Blood Count 7.1 10^3/uL (3.5-10.8)
[2019-07-28 11:31] LABS: ALT 56 U/L (7-52); AST 39 U/L (13-39); Albumin 4.4 g/dL (3.2-5.2); Albumin/Globulin Ratio 1.6 (1-3); Alkaline Phosphatase 57 U/L (34-104); Anion Gap 7 mmol/L (2-11); BUN/Creatinine Ratio 11.8 (8-20); Blood Urea Nitrogen 10 mg/dL (6-24); CO2 Carbon Dioxide 25 mmol/L (22-32); Calcium 8.8 mg/dL (8.6-10.3); Chloride 106 mmol/L (101-111); Creatine Kinase 616 U/L (10-223); EGFR African American 128.9 (>60); EGFR Non-African American 106.6 (>60); Globulin 2.7 g/dL (2-4); Glucose 89 mg/dL (70-100); Sodium 138 mmol/L (135-145); Total Protein 7.1 g/dL (6.4-8.9)
[2019-07-28 11:49] LABS: Alcohol < 10 mg/dL (<10)
[2019-07-28 14:32] VITALS: BP 139/93
== END 2019-07-28 14:30 | disposition home or self-care (01) ==
LOC: ED 10:13
DX: T48.5X1A Poisoning by other anti-common-cold drugs, accidental (unintentional), initial encounter (principal); Y92.9 Unspecified place or not applicable; F10.129 Alcohol abuse with intoxication, unspecified; I10 Essential (primary) hypertension; N17.9 Acute kidney failure, unspecified; F17.210 Nicotine dependence, cigarettes, uncomplicated
CPT/HCPCS: 36415; 80053; 80320; 82550; 83605; 85025; 96360; 96361; 99282; G0480

== ENCOUNTER 2019-07-29 00:15 | Emergency (ER) | payer OTHER ==
--- NOTE | 2019-07-29 01:46 | ED ---
Altered Mental Status - HPI Summary HPI Summary: Patient is a 29 y/o biological male presenting to [facility] via EMS for unresponsiveness. Patient has a known Hx of regular Coricidin abuse. Patient was at [facility] this evening, staff had called EMS as they were unable to get the patient to respond to them. Narcan was nasally administered by EMS with no good effect. Patient is a level 5 caveat secondary to AMS. Home medications and allergies are reviewed. - History Of Current Complaint Chief Complaint: EDSubstanceAbuse Stated Complaint: OVERDOSE PER EMS Time Seen by Provider: 07/29/19 00:17 Hx Obtained From: EMS Hx From Patient Unobtainable Due To: Altered Mental Status Onset/Duration: Still Present Timing: Constant Character: Responsiveness Aggravating Factor(s): Drug Abuse - Allergies/Home Medications Allergies/Adverse Reactions: Allergies Allergy/AdvReac Type Severity Reaction Status Date / Time No Known Allergies Allergy Verified 07/29/19 00:30 PMH/Surg Hx/FS Hx/Imm Hx Endocrine/Hematology History: Reports: Hx Thyroid Disease - Hypothyroidism Denies: Hx Anticoagulant Therapy, Hx Blood Disorders, Hx Blood Transfusions, Hx Bone Marrow Disease, Hx Diabetes, Hx Systemic Lupus Erythematosus, Hx Sickle Cell Disease, Hx Anemia, Hx Unexplained Bleeding, Other Endocrine/Hematological Disorders Cardiovascular History: Reports: Hx Hypertension Denies: Hx Aneurysm, Hx Angina, Hx Angioplasty, Hx Auto Implanted Cardiovert Defib, Hx Cardiac Arrest, Hx Cardiomegaly, Hx Congenital Heart Disease, Hx Congestive Heart Failure, Hx Coronary Artery Disease, Hx Deep Vein Thrombosis, Hx Embolism, Hx Hypercholesterolemia, Hx Hypotension, Hx Pacemaker/ICD, Hx Peripheral Vascular Disease, Hx Rheumatic Fever, Hx Syncope, Hx Valvular Heart Disease, Other Cardiovascular Problems/Disorders Respiratory History: Reports: Hx Pneumonia, Hx Seasonal Allergies Denies: Hx Asthma, Hx Chronic Bronchitis, Hx Chronic Obstructive Pulmonary Disease (COPD), Hx Cystic Fibrosis, Hx Lung Cancer, Hx Pleural Effusion, Hx Pulmonary Edema, Hx Pulmonary Embolism, Hx Sleep Apnea, Other Respiratory Problems/Disorders GI History: Reports: Hx Ulcer Denies: Hx Cirrhosis, Hx Crohn's Disease, Hx Diverticulosis, Hx Gall Bladder Disease, Hx Gastroesophageal Reflux Disease, Hx Gastrointestinal Bleed, Hx Hiatal Hernia, Hx Irritable Bowel, Hx Jaundice, Hx Obstructive Bowel, Hx Ileostomy, Hx Pyloric Stenosis, Other GI Disorders History: Reports: Hx Acute Renal Failure Denies: Hx Benign Prostatic Hyperplasia, Hx Chronic Renal Failure, Hx Dialysis, Hx Kidney Infection, Hx Kidney Stones, Hx Renal Disease, Other Problems/Disorders Musculoskeletal History: Denies: Hx Arthritis, Hx Back Problems, Hx Bursitis, Hx Congenital Bone Abnormalities, Hx Fibromyalgia, Hx Gout, Hx Orthopedic Injury, Hx Osteoporosis, Hx Scoliosis, Hx Tendonitis, Other Musculoskeletal History Sensory History: Denies: Hx Cataracts, Hx Contacts or Glasses, Hx Eye Injury, Hx Eye Prosthesis, Hx Glaucoma, Hx Legally Blind, Hx Macular Degeneration, Hx Vision Problem, Hx Deafness, Hx Hearing Aid, Other Sensory Impairments Opthamlomology History: Denies: Hx Cataracts, Hx Contacts or Glasses, Hx Eye Injury, Hx Eye Prosthesis, Hx Glaucoma, Hx Legally Blind, Hx Macular Degeneration, Hx Vision Problem, Other Sensory Impairments Neurological History: Reports: Hx Headaches, Hx Seizures Denies: Hx Dementia, Hx Developmental Delay, Hx Migraine, Hx Nerve Disease, Hx Spinal Cord Injury, Hx Transient Ischemic Attacks (TIA), Other Neuro Impairments/Disorders Psychiatric History: Reports: Hx Anxiety, Hx Depression, Hx Post Traumatic Stress Disorder, Hx Inpatient Treatment, Hx Community Mental Health Tx, Hx Bipolar Disorder, Hx of Violent Episodes Against Others, Hx Substance Abuse, Other Psychiatric Issues/Disorders Denies: Hx Attention Deficit Hyperactivity Disorder, Hx Eating Disorder, Hx Panic Disorder, Hx Schizophrenia, Hx Suicide Attempt - Cancer History Cancer Type, Location and Year: None reported Hx Chemotherapy: No Hx Radiation Therapy: No - Surgical History Surgery Procedure, Year, and Place: none Hx Anesthesia Reactions: No - Immunization History Date of Tetanus Vaccine: Unknown Date of Influenza Vaccine: None Infectious Disease History: No Infectious Disease History: Reports: Hx Hepatitis - Hep C Denies: Hx Clostridium Difficile, Hx Human Immunodeficiency Virus (HIV), Hx of Known/Suspected MRSA, Hx Shingles, Hx Tuberculosis, Hx Known/Suspected VRE, Hx Known/Suspected VRSA, History Other Infectious Disease, Traveled Outside the [place] in Last 30 Days - Family History Known Family History: Positive: Other - cancer Negative: Renal Disease Family History: father - ETOH - Social History Alcohol Use: Weekly Alcohol Amount: beers Hx Substance Use: Yes Substance Use Type: 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 Substance Use Comment - Amount & Last Used: Multiple Coricidin overdose Hx Tobacco Use: Yes Smoking Status (MU): Heavy Every Day Tobacco Smoker Type: Cigarettes Have You Smoked in the Last Year: Yes Review of Systems - ROS Summary Review of Systems Summary: Patient is a level 5 caveat secondary to AMS. Constitutional: Other - positive - AMS, possible substance abuse All Other Systems Reviewed And Are Negative: No - Comments Additional Review of Systems Comments: Patient is a level 5 caveat secondary to AMS. Physical Exam - Summary Physical Exam Summary: Appearance: Well-appearing, Well-nourished, lying in bed comfortable Skin: Warm, dry, no obvious rash Eyes: Eyes are closed, patient resists opening his eyes ENT: mucous membranes moist Neck: deferred Respiratory: No signs of respiratory distress, breathing easily Cardiovascular: Appears well perfused, pulses are nml Abdomen: deferred Musculoskeletal: Moving all 4 extremities without obvious discomfort Neurological: Patient does not converse, level 5 caveat secondary to AMS Triage Information Reviewed: Yes Vital Signs On Initial Exam: Initial Vitals Temp Pulse Resp BP Pulse Ox 97.6 F 82 15 108/73 94 07/29/19 00:24 07/29/19 00:24 07/29/19 00:24 07/29/19 00:24 07/29/19 00:24 Vital Signs Reviewed: Yes Procedures - Sedation Patient Received Moderate/Deep Sedation with Procedure: No Diagnostics - Vital Signs Vital Signs Temp Pulse Resp BP Pulse Ox 07/29/19 01:00 78 20 94 07/29/19 00:58 78 19 105/65 94 07/29/19 00:28 18 108/73 07/29/19 00:26 14 07/29/19 00:24 97.6 F 82 15 108/73 94 - Laboratory Lab Statement: Any lab studies that have been ordered have been reviewed, and results considered in the medical decision making process. Altered Mental Statu Course/Dx - Course Course Of Treatment: Patient is a 29 y/o biological male presenting to [facility] via EMS for unresponsiveness. Patient has a known Hx of regular Coricidin abuse. Patient was at [facility] this evening, staff had called EMS as they were unable to get the patient to respond to them. Narcan was nasally administered by EMS with no good effect. Patient is a level 5 caveat secondary to AMS. Patient is breathing easily. Eyes are closed, patient resists opening them. Patient does not converse. 0630 - Patient is alert and oriented x3 at this time and ambulated in the ED with a steady gait. He was discharged to home. - Diagnoses Provider Diagnoses: Substance abuse Discharge ED - Sign-Out/Discharge Documenting (check all that apply): Patient Departure - discharge - Discharge Plan Condition: Stable Disposition: HOME Patient Education Materials: Polysubstance Abuse (ED) Referrals: [facility] [Outside] - Billing Disposition and Condition Condition: STABLE Disposition: Home - Attestation Statements Document Initiated by Momoe: Yes Documenting Scribe: SHERWIN HALL Provider For Whom Mario is Documenting (Include Credential): AMELIE LIZ MD Scribe Attestation: SHERWIN Brunner, scribed for AMELIE LIZ MD on 08/01/19 at 2139. Scribe Documentation Reviewed: Yes Provider Attestation: The documentation as recorded by the SHERWIN fournier accurately reflects the service I personally performed and the decisions made by , AMELIE LIZ MD Status of Scribe Document: Viewed
[2019-07-29 07:11] VITALS: BP 123/78
== END 2019-07-29 07:05 | disposition home or self-care (01) ==
LOC: EEVIPCON 00:15 → ED 00:15
DX: F19.10 Other psychoactive substance abuse, uncomplicated (principal); E03.9 Hypothyroidism, unspecified; I10 Essential (primary) hypertension; F41.9 Anxiety disorder, unspecified; F43.10 Post-traumatic stress disorder, unspecified; F17.210 Nicotine dependence, cigarettes, uncomplicated; Z86.19 Personal history of other infectious and parasitic diseases
CPT/HCPCS: 99283

== ENCOUNTER 2019-08-10 00:42 | Emergency (ER) | payer OTHER ==
--- NOTE | 2019-08-10 01:04 | ED ---
Substance Abuse/Use - HPI Summary HPI Summary: This patient is a 29 year old male brought in by EMS presenting to [facility] with a chief complaint of seizure. Pt took coricedin and alcohol. Initial BG for EMG 54 -given 2 tubes oral glucose. BG on arrival to ED 75. Pt is awake but not answering questions or following commands. This patient is a level 5 caveat due to patient intoxication. - History Of Current Complaint Stated Complaint: SEIZURES PER EMS Hx Obtained From: Patient Hx From Patient Unobtainable Due To: Altered Mental Status Ingestion History: Type/Name Of Drug, Amount Ingested - Allergies/Home Medications Allergies/Adverse Reactions: Allergies Allergy/AdvReac Type Severity Reaction Status Date / Time No Known Allergies Allergy Verified 08/10/19 00:58 Home Medications: Home Medications NK [No Home Medications Reported] 07/26/19 [History Confirmed 08/10/19] PMH/Surg Hx/FS Hx/Imm Hx Endocrine/Hematology History: Reports: Hx Thyroid Disease - Hypothyroidism Denies: Hx Anticoagulant Therapy, Hx Blood Disorders, Hx Blood Transfusions, Hx Bone Marrow Disease, Hx Diabetes, Hx Systemic Lupus Erythematosus, Hx Sickle Cell Disease, Hx Anemia, Hx Unexplained Bleeding, Other Endocrine/Hematological Disorders Cardiovascular History: Reports: Hx Hypertension Denies: Hx Aneurysm, Hx Angina, Hx Angioplasty, Hx Auto Implanted Cardiovert Defib, Hx Cardiac Arrest, Hx Cardiomegaly, Hx Congenital Heart Disease, Hx Congestive Heart Failure, Hx Coronary Artery Disease, Hx Deep Vein Thrombosis, Hx Embolism, Hx Hypercholesterolemia, Hx Hypotension, Hx Pacemaker/ICD, Hx Peripheral Vascular Disease, Hx Rheumatic Fever, Hx Syncope, Hx Valvular Heart Disease, Other Cardiovascular Problems/Disorders Respiratory History: Reports: Hx Pneumonia, Hx Seasonal Allergies Denies: Hx Asthma, Hx Chronic Bronchitis, Hx Chronic Obstructive Pulmonary Disease (COPD), Hx Cystic Fibrosis, Hx Lung Cancer, Hx Pleural Effusion, Hx Pulmonary Edema, Hx Pulmonary Embolism, Hx Sleep Apnea, Other Respiratory Problems/Disorders GI History: Reports: Hx Ulcer Denies: Hx Cirrhosis, Hx Crohn's Disease, Hx Diverticulosis, Hx Gall Bladder Disease, Hx Gastroesophageal Reflux Disease, Hx Gastrointestinal Bleed, Hx Hiatal Hernia, Hx Irritable Bowel, Hx Jaundice, Hx Obstructive Bowel, Hx Ileostomy, Hx Pyloric Stenosis, Other GI Disorders History: Reports: Hx Acute Renal Failure Denies: Hx Benign Prostatic Hyperplasia, Hx Chronic Renal Failure, Hx Dialysis, Hx Kidney Infection, Hx Kidney Stones, Hx Renal Disease, Other Problems/Disorders Musculoskeletal History: Denies: Hx Arthritis, Hx Back Problems, Hx Bursitis, Hx Congenital Bone Abnormalities, Hx Fibromyalgia, Hx Gout, Hx Orthopedic Injury, Hx Osteoporosis, Hx Scoliosis, Hx Tendonitis, Other Musculoskeletal History Sensory History: Denies: Hx Cataracts, Hx Contacts or Glasses, Hx Eye Injury, Hx Eye Prosthesis, Hx Glaucoma, Hx Legally Blind, Hx Macular Degeneration, Hx Vision Problem, Hx Deafness, Hx Hearing Aid, Other Sensory Impairments Opthamlomology History: Denies: Hx Cataracts, Hx Contacts or Glasses, Hx Eye Injury, Hx Eye Prosthesis, Hx Glaucoma, Hx Legally Blind, Hx Macular Degeneration, Hx Vision Problem, Other Sensory Impairments Neurological History: Reports: Hx Headaches, Hx Seizures Denies: Hx Dementia, Hx Developmental Delay, Hx Migraine, Hx Nerve Disease, Hx Spinal Cord Injury, Hx Transient Ischemic Attacks (TIA), Other Neuro Impairments/Disorders Psychiatric History: Reports: Hx Anxiety, Hx Depression, Hx Post Traumatic Stress Disorder, Hx Inpatient Treatment, Hx Community Mental Health Tx, Hx Bipolar Disorder, Hx of Violent Episodes Against Others, Hx Substance Abuse, Other Psychiatric Issues/Disorders Denies: Hx Attention Deficit Hyperactivity Disorder, Hx Eating Disorder, Hx Panic Disorder, Hx Schizophrenia, Hx Suicide Attempt - Cancer History Cancer Type, Location and Year: None reported Hx Chemotherapy: No Hx Radiation Therapy: No - Surgical History Surgery Procedure, Year, and Place: none Hx Anesthesia Reactions: No - Immunization History Date of Tetanus Vaccine: Unknown Date of Influenza Vaccine: None Infectious Disease History: Unable to Obtain/Confirm Infectious Disease History: Reports: Hx Hepatitis - Hep C Denies: Hx Clostridium Difficile, Hx Human Immunodeficiency Virus (HIV), Hx of Known/Suspected MRSA, Hx Shingles, Hx Tuberculosis, Hx Known/Suspected VRE, Hx Known/Suspected VRSA, History Other Infectious Disease, Traveled Outside the [place] in Last 30 Days - [place] - Family History Known Family History: Positive: Other - cancer Negative: Renal Disease Family History: father - ETOH - Social History Alcohol Use: Weekly Alcohol Amount: beers Hx Substance Use: Yes Substance Use Type: 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 Substance Use Comment - Amount & Last Used: Multiple Coricidin overdose Hx Tobacco Use: Yes Smoking Status (MU): Heavy Every Day Tobacco Smoker Type: Cigarettes Have You Smoked in the Last Year: Yes Review of Systems Negative: Fever Neurological/Mental Status: Other - Patient intoxication/seizure-like activity All Other Systems Reviewed And Are Negative: No Physical Exam - Summary Physical Exam Summary: Appearance: Well-appearing, Well-nourished, lying in bed comfortably Skin: Warm, dry, no obvious rash Eyes: sclera anicteric, no conjunctival pallor HENT: mucous membranes moist, pharynx appears normal Neck: Supple, nontender Respiratory: Clear to auscultation, no signs of respiratory distress Cardiovascular: Normal S1, S2. No murmurs. Normal distal pulses in tibial and radial bilaterally. Abdomen: Soft, nontender, normal active bowel sounds present Musculoskeletal: Normal, Strength/ROM Intact Neurological: Arousable to voice, somewhat stuperous. Psychiatric: Appears intoxicated Triage Information Reviewed: Yes Vital Signs On Initial Exam: Initial Vitals Temp Pulse Resp BP Pulse Ox 98.3 F 116 18 140/110 95 08/10/19 00:44 08/10/19 00:44 08/10/19 00:44 08/10/19 00:44 08/10/19 00:44 Vital Signs Reviewed: Yes Procedures - Sedation Patient Received Moderate/Deep Sedation with Procedure: No Diagnostics - Vital Signs Vital Signs Temp Pulse Resp BP Pulse Ox 08/10/19 00:44 98.3 F 116 18 140/110 95 - Laboratory Lab Statement: Any lab studies that have been ordered have been reviewed, and results considered in the medical decision making process. Course/Dx - Course Course Of Treatment: This patient is a 29 year old male brought in by EMS presenting to [facility] with a chief complaint of seizure. Pt took coricedin and alcohol. Patient was monitored and observed until he became sober. Plan for discharge was discussed with the patient and he was agreeable with this plan. - Diagnoses Provider Diagnoses: Polysubstance abuse Discharge ED - Sign-Out/Discharge Documenting (check all that apply): Patient Departure - Discharge - Discharge Plan Condition: Improved Disposition: HOME Patient Education Materials: Polysubstance Abuse (ED) Referrals: [facility] [place] [Outside] - Billing Disposition and Condition Condition: IMPROVED Disposition: Home - Attestation Statements Document Initiated by Scribe: Yes Documenting Scribe: Dario Hodgson Provider For Whom Scribe is Documenting (Include Credential): Brayan Richardson MD Scribe Attestation: Dario Brunner, scribed for Brayan Richardson MD on 08/11/19 at 0030. Scribe Documentation Reviewed: Yes Provider Attestation: The documentation as recorded by the scribe, Dario Hodgson accurately reflects the service I personally performed and the decisions made by me, Brayan Richardson MD Status of Scribe Document: Viewed
[2019-08-10 06:32] VITALS: BP 140/98
[2019-08-10] MEDS ORDERED: diPHENhydraMINE IV* 50 MG/ML 1 ml VIAL (BENADRYL) ONE (12:40)
[2019-08-10] MEDS ORDERED: LORazepam INJ* 2 MG/ML 1 ML VIAL ONE (12:40)
[2019-08-10] MEDS ORDERED: Haloperidol INJ IV/IM* 5 MG/ML AMP ONE (12:40)
== END 2019-08-10 06:29 | disposition home or self-care (01) ==
LOC: ED 00:42
DX: F19.10 Other psychoactive substance abuse, uncomplicated (principal); F17.210 Nicotine dependence, cigarettes, uncomplicated; N17.9 Acute kidney failure, unspecified; E03.9 Hypothyroidism, unspecified; I10 Essential (primary) hypertension
CPT/HCPCS: 99283; J1200; J1630; J2060

== ENCOUNTER 2019-08-10 11:53 | Emergency (ER) | payer OTHER ==
[2019-08-10] MEDS ORDERED: NS 0.9% 1000 ML** 1,000 ML IV ONE ×5 (11:57→22:28)
[2019-08-10] MEDS ORDERED: LORazepam INJ* 2 MG/ML 1 ML VIAL ONE (12:27)
--- NOTE | 2019-08-10 12:33 | ED ---
Altered Mental Status - HPI Summary HPI Summary: Patient is a 29 y/o male with a known, extensive history of coricidin abuse presents to [facility] via EMS for AMS, possible overdose. He was seen at [facility] earlier today for alcohol and coricidin abuse and discharged a few hours ago. It is reported that the patient went to a local prison afterwards and he was found with altered mental status by staff. In the room, patient is alert but is speaking unintelligibly. Patient is a level 5 caveat secondary to AMS. Home Medications Medication Instructions Recorded Confirmed Type NK [No Home Medications Reported] 07/26/19 08/10/19 History - History Of Current Complaint Chief Complaint: EDSubstanceAbuse Stated Complaint: OVERDOSE PER EMS Hx Obtained From: EMS Hx From Patient Unobtainable Due To: Altered Mental Status - Patient is a level 5 caveat secondary to AMS. Onset/Duration: Still Present Timing: Constant Character: Agitation, Responsiveness Aggravating Factor(s): Drug Abuse - possible - Allergies/Home Medications Allergies/Adverse Reactions: Allergies Allergy/AdvReac Type Severity Reaction Status Date / Time No Known Allergies Allergy Verified 08/10/19 00:58 Home Medications: Home Medications NK [No Home Medications Reported] 07/26/19 [History Confirmed 08/10/19] PMH/Surg Hx/FS Hx/Imm Hx Endocrine/Hematology History: Reports: Hx Thyroid Disease - Hypothyroidism Denies: Hx Anticoagulant Therapy, Hx Blood Disorders, Hx Blood Transfusions, Hx Bone Marrow Disease, Hx Diabetes, Hx Systemic Lupus Erythematosus, Hx Sickle Cell Disease, Hx Anemia, Hx Unexplained Bleeding, Other Endocrine/Hematological Disorders Cardiovascular History: Reports: Hx Hypertension Denies: Hx Aneurysm, Hx Angina, Hx Angioplasty, Hx Auto Implanted Cardiovert Defib, Hx Cardiac Arrest, Hx Cardiomegaly, Hx Congenital Heart Disease, Hx Congestive Heart Failure, Hx Coronary Artery Disease, Hx Deep Vein Thrombosis, Hx Embolism, Hx Hypercholesterolemia, Hx Hypotension, Hx Pacemaker/ICD, Hx Peripheral Vascular Disease, Hx Rheumatic Fever, Hx Syncope, Hx Valvular Heart Disease, Other Cardiovascular Problems/Disorders Respiratory History: Reports: Hx Pneumonia, Hx Seasonal Allergies Denies: Hx Asthma, Hx Chronic Bronchitis, Hx Chronic Obstructive Pulmonary Disease (COPD), Hx Cystic Fibrosis, Hx Lung Cancer, Hx Pleural Effusion, Hx Pulmonary Edema, Hx Pulmonary Embolism, Hx Sleep Apnea, Other Respiratory Problems/Disorders GI History: Reports: Hx Ulcer Denies: Hx Cirrhosis, Hx Crohn's Disease, Hx Diverticulosis, Hx Gall Bladder Disease, Hx Gastroesophageal Reflux Disease, Hx Gastrointestinal Bleed, Hx Hiatal Hernia, Hx Irritable Bowel, Hx Jaundice, Hx Obstructive Bowel, Hx Ileostomy, Hx Pyloric Stenosis, Other GI Disorders History: Reports: Hx Acute Renal Failure Denies: Hx Benign Prostatic Hyperplasia, Hx Chronic Renal Failure, Hx Dialysis, Hx Kidney Infection, Hx Kidney Stones, Hx Renal Disease, Other Problems/Disorders Musculoskeletal History: Denies: Hx Arthritis, Hx Back Problems, Hx Bursitis, Hx Congenital Bone Abnormalities, Hx Fibromyalgia, Hx Gout, Hx Orthopedic Injury, Hx Osteoporosis, Hx Scoliosis, Hx Tendonitis, Other Musculoskeletal History Sensory History: Denies: Hx Cataracts, Hx Contacts or Glasses, Hx Eye Injury, Hx Eye Prosthesis, Hx Glaucoma, Hx Legally Blind, Hx Macular Degeneration, Hx Vision Problem, Hx Deafness, Hx Hearing Aid, Other Sensory Impairments Opthamlomology History: Denies: Hx Cataracts, Hx Contacts or Glasses, Hx Eye Injury, Hx Eye Prosthesis, Hx Glaucoma, Hx Legally Blind, Hx Macular Degeneration, Hx Vision Problem, Other Sensory Impairments Neurological History: Reports: Hx Headaches, Hx Seizures Denies: Hx Dementia, Hx Developmental Delay, Hx Migraine, Hx Nerve Disease, Hx Spinal Cord Injury, Hx Transient Ischemic Attacks (TIA), Other Neuro Impairments/Disorders Psychiatric History: Reports: Hx Anxiety, Hx Depression, Hx Post Traumatic Stress Disorder, Hx Inpatient Treatment, Hx Community Mental Health Tx, Hx Bipolar Disorder, Hx of Violent Episodes Against Others, Hx Substance Abuse, Other Psychiatric Issues/Disorders Denies: Hx Attention Deficit Hyperactivity Disorder, Hx Eating Disorder, Hx Panic Disorder, Hx Schizophrenia, Hx Suicide Attempt - Cancer History Cancer Type, Location and Year: None reported Hx Chemotherapy: No Hx Radiation Therapy: No - Surgical History Surgery Procedure, Year, and Place: none Hx Anesthesia Reactions: No - Immunization History Date of Tetanus Vaccine: Unknown Date of Influenza Vaccine: None Infectious Disease History: No Infectious Disease History: Reports: Hx Hepatitis - Hep C Denies: Hx Clostridium Difficile, Hx Human Immunodeficiency Virus (HIV), Hx of Known/Suspected MRSA, Hx Shingles, Hx Tuberculosis, Hx Known/Suspected VRE, Hx Known/Suspected VRSA, History Other Infectious Disease, Traveled Outside the [place] in Last 30 Days - Family History Known Family History: Positive: Other - cancer Negative: Renal Disease Family History: father - ETOH - Social History Alcohol Use: Weekly Alcohol Amount: beers Hx Substance Use: Yes Substance Use Type: 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 Substance Use Comment - Amount & Last Used: Multiple Coricidin overdose Hx Tobacco Use: Yes Smoking Status (MU): Heavy Every Day Tobacco Smoker Type: Cigarettes Have You Smoked in the Last Year: Yes Review of Systems - ROS Summary Review of Systems Summary: Patient is a level 5 caveat secondary to AMS. Neurological/Mental Status: Other - AMS, possible drug abuse All Other Systems Reviewed And Are Negative: No - Comments Additional Review of Systems Comments: Patient is a level 5 caveat secondary to AMS. Physical Exam - Summary Physical Exam Summary: Constitutional: Well-developed, Well-nourished, Alert. (-) Distressed Skin: Warm, Dry HENT: Normocephalic; Atraumatic Eyes: Conjunctiva normal Neck: Musculoskeletal ROM normal neck. (-) JVD, (-) Stridor, (-) Tracheal deviation Cardio: Tachycardic, Heart sounds normal; Intact distal pulses; The pedal pulses are 2+ and symmetric. Radial pulses are 2+ and symmetric. (-) Murmur Pulmonary/Chest wall: Effort normal. (-) Respiratory distress, (-) Wheezes, (-) Rales Abd: Soft, (-) tenderness, (-) Distension, (-) Guarding, (-) Rebound Musculoskeletal: (-) Edema Lymph: (-) Cervical adenopathy Neuro: Alert, Unintelligible Speech, Moving All Extremities, no Focal Neurological Deficits. Triage Information Reviewed: Yes Vital Signs On Initial Exam: Initial Vitals Temp Pulse Resp BP Pulse Ox 99.8 F 133 24 152/95 96 08/10/19 12:17 08/10/19 12:17 08/10/19 12:17 08/10/19 12:17 08/10/19 12:17 Vital Signs Reviewed: Yes Procedures - Sedation Patient Received Moderate/Deep Sedation with Procedure: No Diagnostics - Vital Signs Vital Signs Temp Pulse Resp BP Pulse Ox 08/10/19 12:17 99.8 F 133 24 152/95 96 - Laboratory Result Diagrams: 08/10/19 12:50 08/11/19 03:16 Lab Statement: Any lab studies that have been ordered have been reviewed, and results considered in the medical decision making process. - EKG 1212 Cardiac Rate: Tachycardia - rate of 123 BPM EKG Rhythm: Sinus Tachycardia Summary of EKG Findings: EKG showed sinus tachycardia with rate of 123 BPM, QTc is 488, no ischemic changes. ED physician has reviewed and interpreted this EKG. 1611 Cardiac Rate: Tachycardia - rate of 105 BPM EKG Rhythm: Sinus Tachycardia Summary of EKG Findings: EKG showed sinus tachycardia with rate of 105 BPM, QTc is 507, no ischemic changes. ED physician has reviewed and interpreted this EKG. Re-Evaluation - Re-Evaluation First Eval Re-Evaluation Time: 12:27 Change: Worse Comment: Patient is agitated, flailing in the stretcher and rolling out of it onto the floor. Bendaryl, Haldol, and Ativan to be administered. Patient will be placed in physical restraints as well. Second Eval Re-Evaluation Time: 13:16 Change: Unchanged Comment: Aware of glucose of 47, Dextrose 25 gm to be administered. Third Eval Re-Evaluation Time: 13:21 Change: Worse Comment: Nurse reports temperature of 101.1 F Fourth Eval Re-Evaluation Time: 14:02 Change: Unchanged Comment: Nurse reports BG of 54 after 25 gm Dextrose, additional 25 gm to be given. Fifth Eval Re-Evaluation Time: 15:30 Change: Unchanged Comment: After second round of 25 gm Dextrose, BG was 68. Poison control was contacted by Nurse Salguero, who states poison control recommended another round of dextrose with possible drip, potassium, repeat BG, lactic, and EKG. Sixth + Eval Re-Evaluation Time: 16:08 Change: Improved Comment: Patient able to communicate that he took 48 coricidin pills after being discharged. Poison control also noted that they have observed synthetic cannabinoids causing hypoglycemia. They have seen some instances of blood thinners being mixed with synthetic cannabinoids and recommend an INR be obtained. Seventh Eval Re-Evaluation Time: 17:58 Change: Improved Comment: POC glucose is 92. Eight Eval Re-Evaluation Time: 20:15 Change: Unchanged Comment: Poison control was contacted once more. They state that the patient will need repeat CK and LFT to make sure they are trending downwards. Patient states that he only took coricidin and no other drugs. Sitter continues to remain with patient. Ninth Eval Re-Evaluation Time: 07:10 Change: Unchanged Comment: At 07:10, patient ate 6 sandwiches during the night. The plan is to recheck patients creatine kinase level, get social work involved, and reassess him in a few hours. Tenth Eval Re-Evaluation Time: 08:33 Change: Improved Comment: At 08:33, creatine kinase is going down, urine is clear, and patient is tolerating PO. I will call the manager social responsibility to contact the ACT team. Altered Mental Statu Course/Dx - Course Course Of Treatment: Patient is a 29 y/o male with a known, extensive history of coricidin abuse presents to [facility] via EMS for AMS, possible overdose. He was seen at [facility] earlier today for alcohol and coricidin abuse and discharged a few hours ago. It is reported that the patient went to a local prison afterwards and he was found with altered mental status by staff. Neuro: Alert, Unintelligible Speech, Moving All Extremities, no Focal Neurological Deficits. He is also tachycardic. EKG showed sinus tachycardia with rate of 123 BPM, QTc is 488, no ischemic changes. Fluids administered. While in ED, patient was agitated, flailing in the stretcher and rolling out of his bed onto the floor. Bendaryl, Haldol, and Ativan administered. Patient will be placed in physical restraints and 1:1 observation as well. Bloodwork was obtained. Glucose of 47, Dextrose administered. Other abnormal bloodwork values include lactic 7.7, total creatine kinase 2413, absolute monos 1.4, potassium 3.3, anion gap 14, AST 48. Patient's case was discussed with Dr. Vargas. Fluid administration recommended. Nurse reports BG of 54 after 25 gm Dextrose, additional 25 gm to be given. After second round of 25 gm Dextrose, BG was 68. Poison control was contacted by Nurse Salguero, who states poison control recommended another round of dextrose with possible drip, potassium, repeat BG, lactic, and EKG. 2nd EKG showed sinus tachycardia with rate of 105 BPM, QTc is 507, no ischemic changes. Potassium chloride 10 meq in 50 mls @ 50 mls/hr IV was given as well as additional 25 gm Dextrose. Patient able to communicate that he took 48 coricidin pills after being discharged. Poison control also noted that they have observed synthetic cannabinoids causing hypoglycemia. They have seen some instances of blood thinners being mixed with synthetic cannabinoids and recommend an INR be obtained. Second lactic was 0.6. At 1758, POC glucose is 92. INR 1.30 noted. UA showed 3+ blood, trace WBC, trace RBC. Tox screen was only positive for phencyclidine. 2014 Poison control was contacted once more. They states that the patient will need repeat CK and LFT to make sure they are trending downwards. Patient states that he only took coricidin and no other drugs. Total bilirubin was 0.80, direct bilirubin 0.20, indirect bilirubin 0.60, AST 168, ALT 43, alk phos 61, total protein 6.2, albumin 6.2, globulin 3.9. Total creatine kinase was 50183. Additional fluids were ordered. 2201 - Patient's case was discussed Dr. Morgan, he recommends patient stay in ED , receive fluids, recheck total creatine kinase and do further workup as needed. Patient is signed out to Dr. Richardson at 219908/10/19 shift end pending completion of fluids administration, poison control contact, total creatine kinase, further workup as needed. - Diagnoses Provider Diagnoses: Substance abuse, Rhabdomyolysis, AMS (altered mental status), Hypoglycemia - Provider Notifications Discussed Care Of Patient With: Jodee Vargas Time Discussed With Above Provider: 13:42 Instructed by Provider To: Other - Patient's case was discussed with Dr. Vargas. Fluid administration recommended. 2201 - Patient's case was discussed Dr. Morgan , he recommends patient stay in ED, receive fluids, recheck total creatinine kinase and do further workup as needed. - Critical Care Time Critical Care Time: 75-104 min - 104 minutes Discharge ED - Sign-Out/Discharge Documenting (check all that apply): Sign-Out Patient Signing out patient TO: Brayan Richardson - Discharge Plan Condition: Stable Disposition: HOME Patient Education Materials: Rhabdomyolysis (ED), Polysubstance Abuse (ED) Referrals: [facility] [Outside] Additional Instructions: PLEASE RETURN TO EMERGENCY DEPARTMENT FOR ANY NEW OR WORSENING SYMPTOMS. Please follow up with your primary care physician. Please make all follow-ups in 1-3 days unless I advise you otherwise. Drink plenty of fluids over the next few days. Return if you have dark urine. Stop using drugs as it will kill you. - Billing Disposition and Condition Condition: STABLE Disposition: Home - Attestation Statements Document Initiated by Scribe: Yes Documenting Scribe: SHERWIN HALL Provider For Whom Shelleyibe is Documenting (Include Credential): WALTER ALLEN DO Scribe Attestation: ISHERWIN, scribed for WALTER ALLEN DO on 08/11/19 at 1043. Scribe Documentation Reviewed: Yes Provider Attestation: The documentation as recorded by the shelleyibSHERWIN yuan accurately reflects the service I personally performed and the decisions made by me, WALTER ALLEN DO Status of Scribe Document: Viewed - Assessment for Patient Restraint Face to Face Encounter Date: 08/10/19 Face to Face Encounter Time: 14:15 Evaluation of the Patient's Immediate Situation: DANGER TO SELF Patient's Reaction to Intervention: PATIENT CHEMICALLY SEDATED, STABLE Patient's Medication and Behavioral Condition: PATIENT RECEIVED BENADRYL, ATIVAN, HALDOL. PATIENT ALSO ON 4-POINT RESTRAINTS. WRIST RESTRAINTS REMOVED 1415. PATIENT IS CURRENTLY MORE CALM AND COOPERATIVE. Evaluate Need for Continued Restraint: Terminate
[2019-08-10 12:55] LABS: ABS Basophils 0.1 10^3/ul (0-0.2); ABS Lymphocytes 1.8 10^3/ul (1.0-4.8); ABS Monocytes 1.4 10^3/ul (0-0.8); ABS Neutrophils 7.5 10^3/ul (1.5-7.7); Eosinophil % 0.3 %; Hematocrit 43 % (42-52); Hemoglobin 14.4 g/dL (14.0-18.0); Lymphocyte % 16.9 %; Mean Corpuscular HGB Conc 34 g/dL (31-36); Mean Corpuscular Hemoglobin 30 pg (27-31); Mean Corpuscular Volume 89 fL (80-94); Mean Platelet Volume 8.1 fL (7.4-10.4); Nucleated Red Blood Cells % 0.1; Platelet Count 235 10^3/uL (150-450); Red Blood Count 4.81 10^6 /uL (4.18-5.48); Red Cell Distribution Width 15 % (10-15); White Blood Count 10.8 10^3/uL (3.5-10.8)
[2019-08-10 13:12] LABS: Albumin 4.5 g/dL (3.2-5.2); Albumin/Globulin Ratio 1.6 (1-3); BUN/Creatinine Ratio 8.7 (8-20); Calcium 9.1 mg/dL (8.6-10.3); EGFR Non-African American 75.2 (>60); Globulin 2.8 g/dL (2-4); Potassium 3.3 mmol/L (3.5-5.0); Total Bilirubin 0.7 mg/dL (0.2-1.0); Total Protein 7.3 g/dL (6.4-8.9)
[2019-08-10] MEDS ORDERED: Dextrose 50% Syringe 50 ML* 25 GM/50 ML SYRINGE ONE (13:18)
[2019-08-10] MEDS: Dextrose 50% Syringe 50 ML* 25 GM/50 ML SYRINGE IV PUSH PRN ×2 (13:21→14:03)
[2019-08-10 13:37] LABS: Acetaminophen < 15 mcg/mL; Salicylate < 2.50 mg/dL (<30)
[2019-08-10 13:58] LABS: Alcohol < 10 mg/dL (<10)
[2019-08-10 14:43] LABS: Magnesium 2.2 mg/dL (1.9-2.7)
[2019-08-10] MEDS ORDERED: KCL 10 MEQ/50 ML IVPREMIX* 10 MEQ/50 ML BAG IV ONE (15:32)
[2019-08-10] MEDS ORDERED: Dextrose 50% Syringe 50 ML* 25 GM/50 ML SYRINGE IV PUSH ONE (15:36)
[2019-08-10 16:10] LABS: Urine Appearance Clear; Urine Bilirubin Negative (Negative); Urine Blood 3+ (Negative); Urine Color Straw; Urine Glucose Negative (Negative); Urine Ketones Negative (Negative); Urine Nitrite Negative (Negative); Urine Protein Negative (Negative); Urine Specific Gravity 1.003 (1.010-1.030); Urine Urobilinogen Negative (Negative)
[2019-08-10 16:14] LABS: Urine Bacteria Absent (Absent); Urine Red Blood Cell Trace(0-2/hpf) (Absent); Urine White Blood Cell Trace(0-5/hpf) (Absent)
[2019-08-10 16:27] LABS: Urine Benzodiazepine Screen None Detected (None Detect); Urine Opiates Screen None Detected (None Detect)
[2019-08-10 17:10] LABS: Activated Partial Thrombo Time 29.9 seconds (26.0-38.0); INR 1.3 (0.82-1.09)
[2019-08-10 20:38] LABS: Albumin 3.9 g/dL (3.2-5.2); Albumin/Globulin Ratio 1.7 (1-3); Globulin 2.3 g/dL (2-4); Indirect Bilirubin 0.6 mg/dL (0.3-1.0); Total Bilirubin 0.8 mg/dL (0.2-1.0); Total Protein 6.2 g/dL (6.4-8.9)
--- NOTE | 2019-08-11 02:16 | ED ---
Progress - Progress Note Progress Note: Receiving sign-out from Dr. Arroyo pending fluids and poison control. Repeat labs revealed POC glucose 114 H, Calcium 8.2 L, AST 179 H, Total Creatinine Kinase 27592, Total Protein 5.8 L. Patient remained stable. Hospitalists will not admit the patient, TCK fell slightly after fluid administration, so the patient will be discharged. Re-Evaluation - Re-Evaluation First Eval Re-Evaluation Time: 12:27 Change: Worse Comment: Patient is agitated, flailing in the stretcher and rolling out of it onto the floor. Bendaryl, Haldol, and Ativan to be administered. Patient will be placed in physical restraints as well. Second Eval Re-Evaluation Time: 13:16 Comment: Aware of glucose of 47, Dextrose 25 gm to be administered. Third Eval Re-Evaluation Time: 13:21 Comment: Nurse reports temperature of 101.1 F Fourth Eval Re-Evaluation Time: 14:02 Comment: Nurse reports BG of 54 after 25 gm Dextrose, additional 25 gm to be given. Fifth Eval Re-Evaluation Time: 15:30 Comment: After second round of 25 gm Dextrose, BG was 68. Poison control was contacted by Nurse Salguero, who states poison control recommended another round of dextrose with possible drip, potassium, repeat BG, lactic, and EKG. Sixth + Eval Re-Evaluation Time: 16:08 Change: Improved Comment: Patient able to communicate that he took 48 coricidin pills after being discharged. Poison control also noted that they have observed synthetic cannabinoids causing hypoglycemia. They have seen some instances of blood thinners being mixed with synthetic cannabinoids and recommend an INR be obtained. Seventh Eval Re-Evaluation Time: 17:58 Change: Improved Comment: POC glucose is 92. Eight Eval Re-Evaluation Time: 20:15 Comment: Poison control was contacted once more. They state that the patient will need repeat CK and LFT to make sure they are trending downwards. Patient states that he only took coricidin and no other drugs. Sitter continues to remain with patient. Course/Dx - Course Course Of Treatment: Receiving sign-out from Dr. Arroyo pending fluids and poison control. Repeat labs revealed POC glucose 114 H, Calcium 8.2 L, AST 179 H, Total Creatinine Kinase 51250, Total Protein 5.8 L. Patient remained stable. Hospitalists will not admit the patient, TCK fell slightly after fluid administration, so the patient will be discharged. - Diagnoses Provider Diagnoses: Substance abuse, Rhabdomyolysis, AMS (altered mental status), Hypoglycemia - Provider Notifications Time Discussed With Above Provider: 13:42 Instructed by Provider To: Other - Critical Care Time Critical Care Time: 75-104 min - 104 minutes Discharge ED - Sign-Out/Discharge Documenting (check all that apply): Patient Departure - Discharge - Discharge Plan Condition: Stable Disposition: HOME Patient Education Materials: Rhabdomyolysis (ED), Polysubstance Abuse (ED) [facility]errals: [facility] [Outside] Additional Instructions: PLEASE RETURN TO EMERGENCY DEPARTMENT FOR ANY NEW OR WORSENING SYMPTOMS. Please follow up with your primary care physician. Please make all follow-ups in 1-3 days unless I advise you otherwise. Drink plenty of fluids over the next few days. Return if you have dark urine. Stop using drugs as it will kill you. - Billing Disposition and Condition Condition: STABLE Disposition: Home - Attestation Statements Document Initiated by Mario: Yes Documenting Scribe: Dario Hodgson Provider For Whom Mario is Documenting (Include Credential): Brayan Richardson MD Scribe Attestation: I, Dario Hodgson, scribed for Brayan Richardson MD on 08/11/19 at 2054. Scribe Documentation Reviewed: Yes Provider Attestation: The documentation as recorded by the Dario fournier accurately reflects the service I personally performed and the decisions made by me, Brayan Richardson MD Status of Scribe Document: Viewed
[2019-08-11 03:37] LABS: BUN/Creatinine Ratio 10.5 (8-20); Calcium 8.2 mg/dL (8.6-10.3); EGFR African American 113.4 (>60); EGFR Non-African American 93.7 (>60); Potassium 3.5 mmol/L (3.5-5.0)
[2019-08-11 04:17] LABS: Albumin 3.6 g/dL (3.2-5.2); Albumin/Globulin Ratio 1.6 (1-3); Globulin 2.2 g/dL (2-4); Indirect Bilirubin 0.3 mg/dL (0.3-1.0); Total Bilirubin 0.4 mg/dL (0.2-1.0); Total Protein 5.8 g/dL (6.4-8.9)
--- NOTE | 2019-08-11 06:25 | CONSULT ---
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 Patient has been seen several times for same. In the Ed he was receiving IV fluid hydration. Patient said he does not know why he kept coming back to the ED for same issues. But said he will make amends. He denied F/N/V/CP/SOB/D/C. Social History: Unchanged from Admission Past Medical History: Unchanged from Admission Review of Systems - Measurements Intake and Output: Intake and Output Last 24 Hours 08/08/19 08/09/19 08/10/19 08/11/19 06:59 06:59 06:59 06:59 Intake Total 6000 Balance 6000 Weight 104.326 kg Intake: IV Fluids 6000 - Review of Systems Constitutional Symptoms: Negative: Fatigue, Fever, Night Sweats Dermatology: Positive: Normal HEENT: Positive: Normal Eyes: Positive: Normal Thyroid: Positive: Normal Pulmonary: Negative: Cough, Sputum, Wheezing, Shortness of Breath Cardiology: Negative: Shortness of Breath, Palpitations, Swelling of Ankles, Faintness, Syncope, Claudication Gastroenterology: Negative: Heartburn, Constipation, Diarrhea Genital - Urinary: Negative: Hematuria, Polyuria, Nocturia Musculoskeletal: Negative: Arthritis, Sciatica, Kyphoscoliosis Endocrinology: Negative: Thyroid Problems, Diabetes Mellitus, Hyperglycemia, Polydipsia, Polyuria Hematologic/Lymphatic: Negative: Anemia Neurology: Negative: Diplopia, Dizziness Psychiatry: Positive: Depressed Mood, Other - Behavioral disorder, Drug overdose Allergic/Immunologic: Negative: Hx Anaphylaxis, Hx Angioedema Objective Active Medications: Dextrose (D50w Syringe 50 Ml*) 25 gm IV PUSH ONCE PRN PRN Reason: AGITATION Last Admin: 08/10/19 14:03 Dose: 25 gm Vital Signs - 8 hr 08/10/19 08/10/19 08/10/19 23:00 23:16 23:32 Pulse Rate Respiratory 21 21 23 Rate Blood Pressure 139/101 144/97 (mmHg) O2 Sat by Pulse Oximetry 08/11/19 08/11/19 08/11/19 00:00 00:02 00:14 Pulse Rate Respiratory 13 13 26 Rate Blood Pressure 142/98 (mmHg) O2 Sat by Pulse Oximetry 08/11/19 08/11/19 08/11/19 00:32 01:00 01:02 Pulse Rate 85 85 Respiratory 33 29 Rate Blood Pressure 141/101 140/90 (mmHg) O2 Sat by Pulse 97 97 Oximetry 08/11/19 08/11/19 08/11/19 01:32 02:00 02:02 Pulse Rate 85 85 87 Respiratory 29 19 25 Rate Blood Pressure 130/92 143/98 (mmHg) O2 Sat by Pulse 96 96 94 Oximetry 08/11/19 08/11/19 08/11/19 02:32 03:00 03:02 Pulse Rate 82 77 78 Respiratory 24 24 24 Rate Blood Pressure 132/91 126/81 (mmHg) O2 Sat by Pulse 95 96 96 Oximetry 08/11/19 08/11/19 08/11/19 03:32 04:00 05:00 Pulse Rate Respiratory 10 22 20 Rate Blood Pressure 115/71 (mmHg) O2 Sat by Pulse Oximetry 08/11/19 08/11/19 08/11/19 05:05 05:32 06:00 Pulse Rate 73 72 Respiratory 28 Rate Blood Pressure 132/93 130/93 (mmHg) O2 Sat by Pulse 98 96 Oximetry 08/11/19 06:02 Pulse Rate 74 Respiratory Rate Blood Pressure 123/97 (mmHg) O2 Sat by Pulse 95 Oximetry Appearance: Awake, alert, in no obvious distress. Tangential speech, talking gibberish atimes. Eyes: No Scleral Icterus Ears/Nose/Mouth/Throat: Clear Oropharnyx, Mucous Membranes Moist Neck: NL Appearance and Movements; NL JVP, No Thyroid Enlargement, Masses Respiratory: Symmetrical Chest Expansion and Respiratory Effort, Clear to Auscultation Cardiovascular: NL Sounds; No Murmurs; No JVD, RRR Abdominal: NL Sounds; No Tenderness; No Distention, No Hepatosplenomegaly Lymphatic: No Cervical Adenopathy Extremities: No Edema, No Clubbing, Cyanosis Skin: No Rash or Ulcers Neurological: NL Sensation, NL Muscle Strength and Tone, - - Alert, oriented to person Result Diagrams: 08/10/19 12:50 08/11/19 03:16 Assessment/Plan - Billing Plan By Medical Problem: 1. Substance abuse 2. Elevated CPK (Rhabdomyolysis) VTE PPX: Diet: Regular Code Status: FULL Admission Status and Rationale: On observation: Continue IV Hydration, encourage PO intake. Counselled patient on drug misuse. FU labs and replete lytes as needed.
--- NOTE | 2019-08-11 07:16 | ED ---
Progress - Progress Note Progress Note: Patient is a sign-out at 07:00 on 08/11/[address] Brayan Richardson MD to Dr. Marlon Wall MD at shift change, pending further workup and disposition. At 07:10, patient ate 6 sandwiches during the night. The plan is to recheck patients creatine kinase level, get social work involved, and reassess him in a few hours. At 08:33, creatine kinase is going down, urine is clear, and patient is tolerating PO. I will call the licensed social worker to contact the ACT team. Patient will be discharged with a diagnosis of rhabdomyolysis, drug abuse, AMS, and hypoglycemia. Follow up with PCP in 2-3 days. Re-Evaluation - Re-Evaluation First Eval Re-Evaluation Time: 12:27 Change: Worse Comment: Patient is agitated, flailing in the stretcher and rolling out of it onto the floor. Bendaryl, Haldol, and Ativan to be administered. Patient will be placed in physical restraints as well. Second Eval Re-Evaluation Time: 13:16 Change: Unchanged Comment: Aware of glucose of 47, Dextrose 25 gm to be administered. Third Eval Re-Evaluation Time: 13:21 Change: Worse Comment: Nurse reports temperature of 101.1 F Fourth Eval Re-Evaluation Time: 14:02 Change: Unchanged Comment: Nurse reports BG of 54 after 25 gm Dextrose, additional 25 gm to be given. Fifth Eval Re-Evaluation Time: 15:30 Change: Unchanged Comment: After second round of 25 gm Dextrose, BG was 68. Poison control was contacted by Nurse Salguero, who states poison control recommended another round of dextrose with possible drip, potassium, repeat BG, lactic, and EKG. Sixth + Eval Re-Evaluation Time: 16:08 Change: Improved Comment: Patient able to communicate that he took 48 coricidin pills after being discharged. Poison control also noted that they have observed synthetic cannabinoids causing hypoglycemia. They have seen some instances of blood thinners being mixed with synthetic cannabinoids and recommend an INR be obtained. Seventh Eval Re-Evaluation Time: 17:58 Change: Improved Comment: POC glucose is 92. Eight Eval Re-Evaluation Time: 20:15 Change: Unchanged Comment: Poison control was contacted once more. They state that the patient will need repeat CK and LFT to make sure they are trending downwards. Patient states that he only took coricidin and no other drugs. Sitter continues to remain with patient. Ninth Eval Re-Evaluation Time: 07:10 Change: Unchanged Comment: At 07:10, patient ate 6 sandwiches during the night. The plan is to recheck patients creatine kinase level, get social work involved, and reassess him in a few hours. Tenth Eval Re-Evaluation Time: 08:33 Change: Improved Comment: At 08:33, creatine kinase is going down, urine is clear, and patient is tolerating PO. I will call the licensed social worker to contact the ACT team. Course/Dx - Course Course Of Treatment: Patient is here with his typical presentation of Coricidin overdose and alcohol overdose. Patient was initially hypoglycemic which was corrected with dextrose. Patient was signed out to the overnight doctor by Dr. Arroyo. Patient was signed out to myself from Dr. Abrams. Patient had repeat CK level which showed a downtrending level. Patient was tolerating by mouth fluids and had clear urine. Patient was discharged with a cab back to the homeless long-term. - Diagnoses Provider Diagnoses: Substance abuse, Rhabdomyolysis, AMS (altered mental status), Hypoglycemia - Provider Notifications Time Discussed With Above Provider: 13:42 Instructed by Provider To: Other - Critical Care Time Critical Care Time: 75-104 min - 104 minutes Discharge ED - Sign-Out/Discharge Documenting (check all that apply): Patient Departure - Discharge, Receiving Sign-Out Receiving patient FROM: Brayan Richardson - Patient is a sign-out at 07:00 on 08/[address] Brayan Richardson MD to Dr. Marlon Wall MD at shift change, pending further workup and disposition. - Discharge Plan Condition: Stable Disposition: HOME Patient Education Materials: Rhabdomyolysis (ED), Polysubstance Abuse (ED) Referrals: Care [facility] [Outside] Additional Instructions: PLEASE RETURN TO EMERGENCY DEPARTMENT FOR ANY NEW OR WORSENING SYMPTOMS. Please follow up with your primary care physician. Please make all follow-ups in 1-3 days unless I advise you otherwise. Drink plenty of fluids over the next few days. Return if you have dark urine. Stop using drugs as it will kill you. - Billing Disposition and Condition Condition: STABLE Disposition: Home - Attestation Statements Document Initiated by Mario: Yes Documenting Scribe: Shira De Oliveira Provider For Whom Scribe is Documenting (Include Credential): Marlon Wall MD Scribe Attestation: I, Shira De Oliveira, scribed for Marlon Wall MD on 08/11/19 at 1606. Scribe Documentation Reviewed: Yes Provider Attestation: The documentation as recorded by the robinsoneShira accurately reflects the service I personally performed and the decisions made by me, Marlon Wall MD Status of Scribe Document: Viewed
[2019-08-11 08:46] VITALS: BP 141/106
== END 2019-08-11 09:39 | disposition home or self-care (01) ==
LOC: ED 11:53
DX: F19.10 Other psychoactive substance abuse, uncomplicated (principal); M62.82 Rhabdomyolysis; R41.82 Altered mental status, unspecified; E16.2 Hypoglycemia, unspecified; R00.0 Tachycardia, unspecified; R94.31 Abnormal electrocardiogram [ECG] [EKG]
CPT/HCPCS: 36415; 80048; 80053; 80076; 80307; 80320; 80329; 81003; 81015; 82550; 83605; 83735; 85025; 85610; 85730; 87086; 93005; 96360; 99285; G0480; J2060; J3480

== ENCOUNTER 2019-08-11 11:30 | Emergency (ER) | payer OTHER ==
--- NOTE | 2019-08-11 11:39 | ED ---
Substance Abuse/Use - HPI Summary HPI Summary: Patient is a 29 y/o M presenting to the ED via EMS for a chief complaint of substance abuse. Per EMS, patient was combative and agitated so patient was placed in restraints. On arrival, patient is asleep and has decreased responsiveness. He is suspected to have taken dextromethorphan or alcohol. Patient was seen and discharged from [facility] twice in the last 2 days for the same complaint. Patient has a history of dextromethorphan abuse. Medications reviewed. Allergies noted. HISTORY OF PRESENT ILLNESS IS LIMITED DUE TO LEVEL 5 CAVEAT - ALTERED MENTAL STATUS. - History Of Current Complaint Stated Complaint: OVERDOSE Time Seen by Provider: 08/11/19 11:32 Hx Obtained From: EMS Hx From Patient Unobtainable Due To: Altered Mental Status Onset/Duration of Drug/ETOH Abuse: Weeks Ingestion History: Type/Name Of Drug - Dextromethorphan, alcohol Overdose Characteristics: Oral Timing Of Abuse: Binge Use Severity Initially: Severe Severity Currently: Severe Aggravating Factor(s): Nothing Alleviating Factor(s): Nothing Associated Signs And Symptoms: Altered Mental Status, Intentional Ingestion - Allergies/Home Medications Allergies/Adverse Reactions: Allergies Allergy/AdvReac Type Severity Reaction Status Date / Time No Known Allergies Allergy Verified 08/10/19 00:58 Home Medications: Home Medications NK [No Home Medications Reported] 07/26/19 [History Confirmed 08/10/19] PMH/Surg Hx/FS Hx/Imm Hx Previously Healthy: No - LIMITED DUE TO LEVEL 5 CAVEAT - ALTERED MENTAL STATUS. Endocrine/Hematology History: Reports: Hx Thyroid Disease - Hypothyroidism Denies: Hx Anticoagulant Therapy, Hx Blood Disorders, Hx Blood Transfusions, Hx Bone Marrow Disease, Hx Diabetes, Hx Systemic Lupus Erythematosus, Hx Sickle Cell Disease, Hx Anemia, Hx Unexplained Bleeding, Other Endocrine/Hematological Disorders Cardiovascular History: Reports: Hx Hypertension Denies: Hx Aneurysm, Hx Angina, Hx Angioplasty, Hx Auto Implanted Cardiovert Defib, Hx Cardiac Arrest, Hx Cardiomegaly, Hx Congenital Heart Disease, Hx Congestive Heart Failure, Hx Coronary Artery Disease, Hx Deep Vein Thrombosis, Hx Embolism, Hx Hypercholesterolemia, Hx Hypotension, Hx Pacemaker/ICD, Hx Peripheral Vascular Disease, Hx Rheumatic Fever, Hx Syncope, Hx Valvular Heart Disease, Other Cardiovascular Problems/Disorders Respiratory History: Reports: Hx Pneumonia, Hx Seasonal Allergies Denies: Hx Asthma, Hx Chronic Bronchitis, Hx Chronic Obstructive Pulmonary Disease (COPD), Hx Cystic Fibrosis, Hx Lung Cancer, Hx Pleural Effusion, Hx Pulmonary Edema, Hx Pulmonary Embolism, Hx Sleep Apnea, Other Respiratory Problems/Disorders GI History: Reports: Hx Ulcer Denies: Hx Cirrhosis, Hx Crohn's Disease, Hx Diverticulosis, Hx Gall Bladder Disease, Hx Gastroesophageal Reflux Disease, Hx Gastrointestinal Bleed, Hx Hiatal Hernia, Hx Irritable Bowel, Hx Jaundice, Hx Obstructive Bowel, Hx Ileostomy, Hx Pyloric Stenosis, Other GI Disorders History: Reports: Hx Acute Renal Failure Denies: Hx Benign Prostatic Hyperplasia, Hx Chronic Renal Failure, Hx Dialysis, Hx Kidney Infection, Hx Kidney Stones, Hx Renal Disease, Other Problems/Disorders Musculoskeletal History: Denies: Hx Arthritis, Hx Back Problems, Hx Bursitis, Hx Congenital Bone Abnormalities, Hx Fibromyalgia, Hx Gout, Hx Orthopedic Injury, Hx Osteoporosis, Hx Scoliosis, Hx Tendonitis, Other Musculoskeletal History Sensory History: Denies: Hx Cataracts, Hx Contacts or Glasses, Hx Eye Injury, Hx Eye Prosthesis, Hx Glaucoma, Hx Legally Blind, Hx Macular Degeneration, Hx Vision Problem, Hx Deafness, Hx Hearing Aid, Other Sensory Impairments Opthamlomology History: Denies: Hx Cataracts, Hx Contacts or Glasses, Hx Eye Injury, Hx Eye Prosthesis, Hx Glaucoma, Hx Legally Blind, Hx Macular Degeneration, Hx Vision Problem, Other Sensory Impairments Neurological History: Reports: Hx Headaches, Hx Seizures Denies: Hx Dementia, Hx Developmental Delay, Hx Migraine, Hx Nerve Disease, Hx Spinal Cord Injury, Hx Transient Ischemic Attacks (TIA), Other Neuro Impairments/Disorders Psychiatric History: Reports: Hx Anxiety, Hx Depression, Hx Post Traumatic Stress Disorder, Hx Inpatient Treatment, Hx Community Mental Health Tx, Hx Bipolar Disorder, Hx of Violent Episodes Against Others, Hx Substance Abuse, Other Psychiatric Issues/Disorders Denies: Hx Attention Deficit Hyperactivity Disorder, Hx Eating Disorder, Hx Panic Disorder, Hx Schizophrenia, Hx Suicide Attempt - Cancer History Cancer Type, Location and Year: None reported Hx Chemotherapy: No Hx Radiation Therapy: No - Surgical History Surgical History: None Surgery Procedure, Year, and Place: none Hx Anesthesia Reactions: No - Immunization History Date of Tetanus Vaccine: Unknown Date of Influenza Vaccine: None Infectious Disease History: Reports: Hx Hepatitis - Hep C Denies: Hx Clostridium Difficile, Hx Human Immunodeficiency Virus (HIV), Hx of Known/Suspected MRSA, Hx Shingles, Hx Tuberculosis, Hx Known/Suspected VRE, Hx Known/Suspected VRSA, History Other Infectious Disease - Family History Known Family History: Positive: Other - cancer Negative: Renal Disease Family History: father - ETOH - Social History Occupation: Unemployed Lives: [facility] Alcohol Use: Weekly Alcohol Amount: beers Hx Substance Use: Yes Substance Use Type: 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 Substance Use Comment - Amount & Last Used: Multiple Coricidin overdose Hx Tobacco Use: Yes Smoking Status (MU): Heavy Every Day Tobacco Smoker Type: Cigarettes Have You Smoked in the Last Year: Yes Review of Systems Neurological/Mental Status: Other - Positive decreased responsiveness Psychological: Other - Positive combative and agitation All Other Systems Reviewed And Are Negative: No - Comments Additional Review of Systems Comments: REVIEW OF SYSTEMS IS LIMITED DUE TO LEVEL 5 CAVEAT - ALTERED MENTAL STATUS. Physical Exam - Summary Physical Exam Summary: PHYSICAL EXAM IS LIMITED DUE TO LEVEL 5 CAVEAT - ALTERED MENTAL STATUS. Constitutional: Well-developed, Well-nourished, Alert. (-) Distressed. Patient is snoring, eyes rolled into the back of his head, dirt covered shoes. Skin: Warm, Dry HENT: Normocephalic; Atraumatic Eyes: Conjunctiva normal Neck: Musculoskeletal ROM normal neck. (-) JVD, (-) Stridor, (-) Tracheal deviation Cardio: Rhythm regular, rate normal, Heart sounds normal; Intact distal pulses; Radial pulses are 2+ and symmetric. (-) Murmur Pulmonary/Chest wall: Effort normal. (-) Respiratory distress, (-) Wheezes, (-) Rales Abd: Soft, (-) tenderness, (-) Distension, (-) Guarding, (-) Rebound Musculoskeletal: (-) Edema Lymph: (-) Cervical adenopathy Neuro: Withdraws to painful stimuli, not Alert and Oriented. Psych: Mood and affect Normal Triage Information Reviewed: Yes Vital Signs Reviewed: Yes Completion Of Physical Exam Limited Due To: Altered Mental Status, Level 5 Procedures - Sedation Patient Received Moderate/Deep Sedation with Procedure: No Diagnostics - Laboratory Result Diagrams: 08/11/19 11:41 08/11/19 11:41 Lab Statement: Any lab studies that have been ordered have been reviewed, and results considered in the medical decision making process. - CT Brain CT CT Interpretation Completed By: Radiologist Summary of CT Findings: Brain CT IMPRESSION: No acute findings. Reviewed by Dr. Wall. - EKG 11:55 Cardiac Rate: NL - 81 BPM EKG Rhythm: Sinus Rhythm ST Segment: Normal Ectopy: None Summary of EKG Findings: EKG at 11:55 shows normal sinus rhythm with 81 BPM, QTc of 489, no STEMI. Reviewed and interpreted by Dr. Wall. Re-Evaluation - Re-Evaluation First Eval Re-Evaluation Time: 16:30 Change: Unchanged Comment: At 16:30, patient had urinary incontinence. Second Eval Re-Evaluation Time: 17:00 Change: Unchanged Comment: At 17:00, patient is sleeping. Third Eval Re-Evaluation Time: 17:49 Change: Unchanged Comment: At 17:49, patients creatine kinase is down. I will order a brain CT and if negative, discharge the patient. Fourth Eval Re-Evaluation Time: 18:37 Change: Improved Comment: At 18:37, I had a long discussion with the patient about putting in work to become sober and she is understanding. She will call the ACT team in the morning. Patient previously expressed a desire to transition to a woman and knows she will never be able to do so if she does not become sober. Patient is able to ambulate with a steady gait. Course/Dx - Course Course Of Treatment: Patient is here with altered mental status. Patient is here frequently including being discharged roughly 1.5 hours ago. [facility]. Upon arrival here, patient is responsive to painful stimuli but otherwise unconscious. Patient had bloodwork performed which showed a elevating CK level. Patient is given 2 L of IV fluid. Patient also has slightly worse LFTs. The hospitalist was called for admission but did not want to admit the patient per his care plan. Patient's activity was also called by myself and they did not have any further ideas to help him in his situation. Patient had repeat level of the CK with downtrending numbers and improving LFTs. Patient was monitored until he was clinically sober and able to ambulate. Patient was counseled many times on not drinking again and not using drugs. Patient was discharged via medicaid cab and the act team was called at discharge. - Diagnoses Provider Diagnoses: AMS (altered mental status), Drug overdose, Alcohol overdose, Rhabdomyolysis, Elevated LFTs - Physician Notifications Discussed Care Of Patient With: Jodee Vargas - At 12:51, Dr. Jodee Vargas reviewed the patients case and declines to admit the patient. At 13:16, I spoke with Lauren from the ACT Team. She is well aware of what is going on with him. She has talked to detention staff about the patient. He is pending some legal charges. There is a meeting on August 18 about him, but at this point, she does not have any further ideas. Time Discussed With Above Provider: 12:51 - Critical Care Time Critical Care Time: 30-74 min - 35 Discharge ED - Sign-Out/Discharge Documenting (check all that apply): Patient Departure - Discharge - Discharge Plan Condition: Stable Disposition: HOME Patient Education Materials: Adult Overdose (ED) [facility]errals: [facility] [Outside] Additional Instructions: PLEASE RETURN TO EMERGENCY DEPARTMENT FOR ANY NEW OR WORSENING SYMPTOMS. Please follow up with your primary care physician. Please make all follow-ups in 1-3 days unless I advise you otherwise. Drink plenty of fluids over the next few days. Return if you have dark urine. Stop using drugs as it will kill you. - Billing Disposition and Condition Condition: STABLE Disposition: Home - Attestation Statements Document Initiated by Shelleyibe: Yes Documenting Scribe: Shira De Oliveira Provider For Whom Mario is Documenting (Include Credential): Marlon Wall MD Scribe Attestation: I, Shira De Oliveira, scribed for Marlon Wall MD on 08/11/19 at 1853. Scribe Documentation Reviewed: Yes Provider Attestation: The documentation as recorded by the Shira fournier accurately reflects the service I personally performed and the decisions made by me, Marlon Wall MD Status of Scribe Document: Viewed
[2019-08-11] MEDS ORDERED: NS 0.9% 1000 ML** 1,000 ML IV ONE ×2 (11:47→12:53)
[2019-08-11 11:51] LABS: ABS Basophils 0.1 10^3/ul (0-0.2); ABS Eosinophils 0.1 10^3/ul (0-0.6); ABS Lymphocytes 2.1 10^3/ul (1.0-4.8); Eosinophil % 1.3 %; Hematocrit 39 % (42-52); Hemoglobin 13.3 g/dL (14.0-18.0); Lymphocyte % 20.6 %; Mean Corpuscular HGB Conc 34 g/dL (31-36); Mean Corpuscular Hemoglobin 30 pg (27-31); Mean Corpuscular Volume 89 fL (80-94); Mean Platelet Volume 8.1 fL (7.4-10.4); Nucleated Red Blood Cells % 0.1; Platelet Count 223 10^3/uL (150-450); Red Blood Count 4.41 10^6 /uL (4.18-5.48); Red Cell Distribution Width 15 % (10-15); White Blood Count 10.4 10^3/uL (3.5-10.8)
[2019-08-11 12:07] LABS: ALT 62 U/L (7-52); AST 199 U/L (13-39); Albumin 3.9 g/dL (3.2-5.2); Albumin/Globulin Ratio 1.6 (1-3); Alkaline Phosphatase 62 U/L (34-104); Anion Gap 12 mmol/L (2-11); BUN/Creatinine Ratio 9.5 (8-20); Blood Urea Nitrogen 8 mg/dL (6-24); CO2 Carbon Dioxide 18 mmol/L (22-32); Calcium 8.7 mg/dL (8.6-10.3); Chloride 104 mmol/L (101-111); EGFR African American 130.7 (>60); Globulin 2.5 g/dL (2-4); Glucose 99 mg/dL (70-100); Potassium 3.2 mmol/L (3.5-5.0); Sodium 134 mmol/L (135-145); Total Protein 6.4 g/dL (6.4-8.9)
[2019-08-11 12:24] LABS: Acetaminophen < 15 mcg/mL; Alcohol 237 mg/dL (<10); Salicylate < 2.50 mg/dL (<30)
[2019-08-11 12:27] LABS: Creatine Kinase 19168 U/L (10-223)
[2019-08-11 17:28] LABS: Albumin 3.7 g/dL (3.2-5.2); Albumin/Globulin Ratio 1.7 (1-3); Globulin 2.2 g/dL (2-4); Indirect Bilirubin 0.4 mg/dL (0.3-1.0); Total Bilirubin 0.5 mg/dL (0.2-1.0); Total Protein 5.9 g/dL (6.4-8.9)
[2019-08-11 19:10] VITALS: BP 97/52
== END 2019-08-11 19:10 | disposition home or self-care (01) ==
LOC: ED 11:30
DX: T65.91XA Toxic effect of unspecified substance, accidental (unintentional), initial encounter (principal); T51.91XA Toxic effect of unspecified alcohol, accidental (unintentional), initial encounter; R41.82 Altered mental status, unspecified; Y92.9 Unspecified place or not applicable; R94.5 Abnormal results of liver function studies; E03.9 Hypothyroidism, unspecified; I10 Essential (primary) hypertension; R51 Headache; F17.210 Nicotine dependence, cigarettes, uncomplicated
CPT/HCPCS: 36415; 70450; 80053; 80076; 80320; 80329; 82550; 85025; 93005; 99285; G0480

== ENCOUNTER 2019-08-11 21:35 | Emergency (ER) | payer OTHER ==
--- NOTE | 2019-08-11 22:26 | ED ---
Substance Abuse/Use - HPI Summary HPI Summary: Patient is a 29 y/o M with a known and extensive history of alcohol and Coricidin abuse who presents to [facility] via EMS for AMS secondary to reported alcohol and Coricidin consumption. The patient is a level 5 caveat secondary to AMS, unable to obtain history from the patient. Home medications and allergies are reviewed. - History Of Current Complaint Stated Complaint: OVERDOSE PER EMS Hx Obtained From: EMS Hx From Patient Unobtainable Due To: Altered Mental Status Ingestion History: Type/Name Of Drug - coricidin and alcohol Overdose Characteristics: Oral Timing Of Abuse: Daily Character: Other - decreased responsiveness Associated Signs And Symptoms: Altered Mental Status, Intentional Ingestion - Allergies/Home Medications Allergies/Adverse Reactions: Allergies Allergy/AdvReac Type Severity Reaction Status Date / Time No Known Allergies Allergy Verified 08/10/19 00:58 Home Medications: Home Medications NK [No Home Medications Reported] 07/26/19 [History Confirmed 08/12/19] PMH/Surg Hx/FS Hx/Imm Hx Endocrine/Hematology History: Reports: Hx Thyroid Disease - Hypothyroidism Denies: Hx Anticoagulant Therapy, Hx Blood Disorders, Hx Blood Transfusions, Hx Bone Marrow Disease, Hx Diabetes, Hx Systemic Lupus Erythematosus, Hx Sickle Cell Disease, Hx Anemia, Hx Unexplained Bleeding, Other Endocrine/Hematological Disorders Cardiovascular History: Reports: Hx Hypertension Denies: Hx Aneurysm, Hx Angina, Hx Angioplasty, Hx Auto Implanted Cardiovert Defib, Hx Cardiac Arrest, Hx Cardiomegaly, Hx Congenital Heart Disease, Hx Congestive Heart Failure, Hx Coronary Artery Disease, Hx Deep Vein Thrombosis, Hx Embolism, Hx Hypercholesterolemia, Hx Hypotension, Hx Pacemaker/ICD, Hx Peripheral Vascular Disease, Hx Rheumatic Fever, Hx Syncope, Hx Valvular Heart Disease, Other Cardiovascular Problems/Disorders Respiratory History: Reports: Hx Pneumonia, Hx Seasonal Allergies Denies: Hx Asthma, Hx Chronic Bronchitis, Hx Chronic Obstructive Pulmonary Disease (COPD), Hx Cystic Fibrosis, Hx Lung Cancer, Hx Pleural Effusion, Hx Pulmonary Edema, Hx Pulmonary Embolism, Hx Sleep Apnea, Other Respiratory Problems/Disorders GI History: Reports: Hx Ulcer Denies: Hx Cirrhosis, Hx Crohn's Disease, Hx Diverticulosis, Hx Gall Bladder Disease, Hx Gastroesophageal Reflux Disease, Hx Gastrointestinal Bleed, Hx Hiatal Hernia, Hx Irritable Bowel, Hx Jaundice, Hx Obstructive Bowel, Hx Ileostomy, Hx Pyloric Stenosis, Other GI Disorders History: Reports: Hx Acute Renal Failure Denies: Hx Benign Prostatic Hyperplasia, Hx Chronic Renal Failure, Hx Dialysis, Hx Kidney Infection, Hx Kidney Stones, Hx Renal Disease, Other Problems/Disorders Musculoskeletal History: Denies: Hx Arthritis, Hx Back Problems, Hx Bursitis, Hx Congenital Bone Abnormalities, Hx Fibromyalgia, Hx Gout, Hx Orthopedic Injury, Hx Osteoporosis, Hx Scoliosis, Hx Tendonitis, Other Musculoskeletal History Sensory History: Denies: Hx Cataracts, Hx Contacts or Glasses, Hx Eye Injury, Hx Eye Prosthesis, Hx Glaucoma, Hx Legally Blind, Hx Macular Degeneration, Hx Vision Problem, Hx Deafness, Hx Hearing Aid, Other Sensory Impairments Opthamlomology History: Denies: Hx Cataracts, Hx Contacts or Glasses, Hx Eye Injury, Hx Eye Prosthesis, Hx Glaucoma, Hx Legally Blind, Hx Macular Degeneration, Hx Vision Problem, Other Sensory Impairments Neurological History: Reports: Hx Headaches, Hx Seizures Denies: Hx Dementia, Hx Developmental Delay, Hx Migraine, Hx Nerve Disease, Hx Spinal Cord Injury, Hx Transient Ischemic Attacks (TIA), Other Neuro Impairments/Disorders Psychiatric History: Reports: Hx Anxiety, Hx Depression, Hx Post Traumatic Stress Disorder, Hx Inpatient Treatment, Hx Community Mental Health Tx, Hx Bipolar Disorder, Hx of Violent Episodes Against Others, Hx Substance Abuse, Other Psychiatric Issues/Disorders Denies: Hx Attention Deficit Hyperactivity Disorder, Hx Eating Disorder, Hx Panic Disorder, Hx Schizophrenia, Hx Suicide Attempt - Cancer History Cancer Type, Location and Year: None reported Hx Chemotherapy: No Hx Radiation Therapy: No - Surgical History Surgery Procedure, Year, and Place: none Hx Anesthesia Reactions: No - Immunization History Date of Tetanus Vaccine: Unknown Date of Influenza Vaccine: None Infectious Disease History: Unable to Obtain/Confirm Infectious Disease History: Reports: Hx Hepatitis - Hep C Denies: Hx Clostridium Difficile, Hx Human Immunodeficiency Virus (HIV), Hx of Known/Suspected MRSA, Hx Shingles, Hx Tuberculosis, Hx Known/Suspected VRE, Hx Known/Suspected VRSA, History Other Infectious Disease, Traveled Outside the [place] in Last 30 Days - Family History Known Family History: Positive: Other - cancer Negative: Renal Disease Family History: father - ETOH - Social History Alcohol Use: Weekly Alcohol Amount: beers Hx Substance Use: Yes Substance Use Type: 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 Substance Use Comment - Amount & Last Used: Multiple Coricidin overdose Hx Tobacco Use: Yes Smoking Status (MU): Heavy Every Day Tobacco Smoker Type: Cigarettes Have You Smoked in the Last Year: Yes Review of Systems - ROS Summary Review of Systems Summary: The patient is a level 5 caveat secondary to AMS, unable to obtain history from the patient. Constitutional: Other - positive - substance abuse Neurological/Mental Status: Other - positive - AMS All Other Systems Reviewed And Are Negative: No - Comments Additional Review of Systems Comments: The patient is a level 5 caveat secondary to AMS, unable to obtain history from the patient. Physical Exam - Summary Physical Exam Summary: Appearance: Well-appearing, Well-nourished, lying in bed comfortable Skin: Warm, dry, no obvious rash Eyes: Eyes are closed, patient resists opening his eyes ENT: mucous membranes moist Neck: deferred Respiratory: No signs of respiratory distress, breathing easily Cardiovascular: Appears well perfused, pulses are nml Abdomen: deferred Musculoskeletal: Moving all 4 extremities without obvious discomfort Neurological: Patient does not converse, level 5 caveat secondary to AMS Triage Information Reviewed: Yes Vital Signs On Initial Exam: Initial Vitals Temp Pulse Resp BP Pulse Ox 98 F 85 18 101/52 93 08/11/19 21:41 08/11/19 21:41 08/11/19 21:41 08/11/19 21:41 08/11/19 21:41 Vital Signs Reviewed: Yes Procedures - Sedation Patient Received Moderate/Deep Sedation with Procedure: No Diagnostics - Vital Signs Vital Signs Temp Pulse Resp BP Pulse Ox 08/11/19 22:05 91 23 93 08/11/19 21:41 98 F 90 23 101/52 93 - Laboratory Lab Statement: Any lab studies that have been ordered have been reviewed, and results considered in the medical decision making process. Course/Dx - Course Course Of Treatment: Patient is a 29 y/o M with a known and extensive history of alcohol and Coricidin abuse who presents to [facility] via EMS for AMS secondary to reported alcohol and Coricidin consumption. The patient is a level 5 caveat secondary to AMS, unable to obtain history from the patient. Patient slept in emergency department. He is signed-out to Dr. Marques at 0700 08/12/19 shift change pending sobriety. - Diagnoses Provider Diagnoses: Polysubstance abuse Discharge ED - Sign-Out/Discharge Documenting (check all that apply): Sign-Out Patient Signing out patient TO: Javon Marques - Discharge Plan Condition: Stable Referrals: No Primary Care Phys,NOPCP [Primary Care Provider] - - Attestation Statements Document Initiated by Scribe: Yes Documenting Scribe: SHERWIN HALL Provider For Whom Scribe is Documenting (Include Credential): AMELIE LIZ MD Scribe Attestation: ISHERWIN, scribed for AMELIE LIZ MD on 08/12/19 at 0651. Status of Scribe Document: Ready
--- NOTE | 2019-08-12 07:23 | ED ---
Progress - Progress Note Progress Note: Patient is a sign-out at 07:00 on 08/12/[address] Brayan Richardson MD to Dr. Javon Marques MD at shift change, pending sobriety and disposition. At 07:23, patient is alert and oriented. He is ambulating with a steady gait. He is eating a breakfast of Raisin Bran. CPK downtrending from prior. Patient will be discharged with a diagnosis of substance use. Follow up with PCP in 2-3 days. Re-Evaluation - Re-Evaluation First Eval Re-Evaluation Time: 07:23 Change: Improved Comment: At 07:23, patient is alert and oriented. He is ambulating with a steady gait. He is eating a breakfast of Raisin Bran. Course/Dx - Diagnoses Provider Diagnoses: Polysubstance abuse Discharge ED - Sign-Out/Discharge Documenting (check all that apply): Patient Departure - Discharge, Receiving Sign-Out Receiving patient FROM: Brayan Richardson - Patient is a sign-out at 07:00 on 08/[address] Brayan Richardson MD to Dr. Javon Marques MD at shift change, pending sobriety and disposition. - Discharge Plan Condition: Stable Disposition: HOME Patient Education Materials: Polysubstance Abuse (ED) Referrals: Care [facility] [Outside] Additional Instructions: You were seen in the emergency department for intoxication. Please don't drink/ use drugs and drive. It was a pleasure taking care of you today. l - Billing Disposition and Condition Condition: STABLE Disposition: Home - Attestation Statements Document Initiated by Scribe: Yes Documenting Scribe: Shira De Oliveira Provider For Whom Mario is Documenting (Include Credential): Javon Marques MD Scribe Attestation: I, Shira De Oliveira, scribed for Javon Marques MD on 08/12/19 at 0731. Scribe Documentation Reviewed: Yes Provider Attestation: The documentation as recorded by the Shira fournier accurately reflects the service I personally performed and the decisions made by me, Javon Marques MD Status of Scribe Document: Viewed
[2019-08-12 08:49] VITALS: BP 113/74
== END 2019-08-12 08:49 | disposition home or self-care (01) ==
LOC: ED 21:35
DX: F19.10 Other psychoactive substance abuse, uncomplicated (principal); F10.10 Alcohol abuse, uncomplicated; I10 Essential (primary) hypertension; N17.9 Acute kidney failure, unspecified; F17.210 Nicotine dependence, cigarettes, uncomplicated
CPT/HCPCS: 99284

== ENCOUNTER → 2019-08-12 10:33 | Emergency (ER) | payer OTHER ==
[~2019-08-12 10:33] MED LIST changes: +Charcoal ACTIVATED* 25 GM/120 ML BTL PO ONE
--- NOTE | 2019-08-12 10:38 | ED ---
Substance Abuse/Use - HPI Summary HPI Summary: Patient is a 29 y/o M presenting to the ED via EMS and escorted by state police on a code 941 for substance abuse. Per EMS, patient took 46 pills of Corcidin 20 minutes [employer]. He is responsive and does not currently have AMS. Currently, patient expresses SI. No aggravating or alleviating factors are reported. Patient was discharged from [facility] approximately 1 hour 30 minutes [employer] for the same complaint. He has had repeated visits to [facility] for abuse of Corcidin and alcohol. - History Of Current Complaint Stated Complaint: 941 Hx Obtained From: Patient Onset/Duration of Drug/ETOH Abuse: Years Ingestion History: Type/Name Of Drug - Corcidin, Amount Ingested - 46 pills, Approximate Time Of Ingestion - 20 minutes [employer] Overdose Characteristics: Oral Timing Of Abuse: Daily, Binge Use Severity Initially: Severe Severity Currently: Severe Character: Depressed Aggravating Factor(s): Nothing Alleviating Factor(s): Nothing Associated Signs And Symptoms: Intentional Ingestion Related Hx: Suicidal, Suicidal: Thoughts - Allergies/Home Medications Allergies/Adverse Reactions: Allergies Allergy/AdvReac Type Severity Reaction Status Date / Time No Known Allergies Allergy Verified 08/10/19 00:58 Home Medications: Home Medications NK [No Home Medications Reported] 08/12/19 [History Confirmed 08/12/19] PMH/Surg Hx/FS Hx/Imm Hx Previously Healthy: Yes Endocrine/Hematology History: Reports: Hx Thyroid Disease - Hypothyroidism Denies: Hx Anticoagulant Therapy, Hx Blood Disorders, Hx Blood Transfusions, Hx Bone Marrow Disease, Hx Diabetes, Hx Systemic Lupus Erythematosus, Hx Sickle Cell Disease, Hx Anemia, Hx Unexplained Bleeding, Other Endocrine/Hematological Disorders Cardiovascular History: Reports: Hx Hypertension Denies: Hx Aneurysm, Hx Angina, Hx Angioplasty, Hx Auto Implanted Cardiovert Defib, Hx Cardiac Arrest, Hx Cardiomegaly, Hx Congenital Heart Disease, Hx Congestive Heart Failure, Hx Coronary Artery Disease, Hx Deep Vein Thrombosis, Hx Embolism, Hx Hypercholesterolemia, Hx Hypotension, Hx Pacemaker/ICD, Hx Peripheral Vascular Disease, Hx Rheumatic Fever, Hx Syncope, Hx Valvular Heart Disease, Other Cardiovascular Problems/Disorders Respiratory History: Reports: Hx Pneumonia, Hx Seasonal Allergies Denies: Hx Asthma, Hx Chronic Bronchitis, Hx Chronic Obstructive Pulmonary Disease (COPD), Hx Cystic Fibrosis, Hx Lung Cancer, Hx Pleural Effusion, Hx Pulmonary Edema, Hx Pulmonary Embolism, Hx Sleep Apnea, Other Respiratory Problems/Disorders GI History: Reports: Hx Ulcer Denies: Hx Cirrhosis, Hx Crohn's Disease, Hx Diverticulosis, Hx Gall Bladder Disease, Hx Gastroesophageal Reflux Disease, Hx Gastrointestinal Bleed, Hx Hiatal Hernia, Hx Irritable Bowel, Hx Jaundice, Hx Obstructive Bowel, Hx Ileostomy, Hx Pyloric Stenosis, Other GI Disorders History: Reports: Hx Acute Renal Failure Denies: Hx Benign Prostatic Hyperplasia, Hx Chronic Renal Failure, Hx Dialysis, Hx Kidney Infection, Hx Kidney Stones, Hx Renal Disease, Other Problems/Disorders Musculoskeletal History: Denies: Hx Arthritis, Hx Back Problems, Hx Bursitis, Hx Congenital Bone Abnormalities, Hx Fibromyalgia, Hx Gout, Hx Orthopedic Injury, Hx Osteoporosis, Hx Scoliosis, Hx Tendonitis, Other Musculoskeletal History Sensory History: Denies: Hx Cataracts, Hx Contacts or Glasses, Hx Eye Injury, Hx Eye Prosthesis, Hx Glaucoma, Hx Legally Blind, Hx Macular Degeneration, Hx Vision Problem, Hx Deafness, Hx Hearing Aid, Other Sensory Impairments Opthamlomology History: Denies: Hx Cataracts, Hx Contacts or Glasses, Hx Eye Injury, Hx Eye Prosthesis, Hx Glaucoma, Hx Legally Blind, Hx Macular Degeneration, Hx Vision Problem, Other Sensory Impairments EENT History: Denies: Hx Deafness Neurological History: Reports: Hx Headaches, Hx Seizures Denies: Hx Dementia, Hx Developmental Delay, Hx Migraine, Hx Nerve Disease, Hx Spinal Cord Injury, Hx Transient Ischemic Attacks (TIA), Other Neuro Impairments/Disorders Psychiatric History: Reports: Hx Anxiety, Hx Depression, Hx Post Traumatic Stress Disorder, Hx Inpatient Treatment, Hx Community Mental Health Tx, Hx Bipolar Disorder, Hx of Violent Episodes Against Others, Hx Substance Abuse, Other Psychiatric Issues/Disorders Denies: Hx Attention Deficit Hyperactivity Disorder, Hx Eating Disorder, Hx Panic Disorder, Hx Schizophrenia, Hx Suicide Attempt - Cancer History Cancer Type, Location and Year: None reported Hx Chemotherapy: No Hx Radiation Therapy: No - Surgical History Surgical History: None Surgery Procedure, Year, and Place: none Hx Anesthesia Reactions: No - Immunization History Date of Tetanus Vaccine: Unknown Date of Influenza Vaccine: None Infectious Disease History: Yes Infectious Disease History: Reports: Hx Hepatitis - Hep C Denies: Hx Clostridium Difficile, Hx Human Immunodeficiency Virus (HIV), Hx of Known/Suspected MRSA, Hx Shingles, Hx Tuberculosis, Hx Known/Suspected VRE, Hx Known/Suspected VRSA, History Other Infectious Disease - Family History Known Family History: Positive: Other - cancer Negative: Renal Disease Family History: father - ETOH - Social History Occupation: Unemployed Alcohol Use: Weekly Alcohol Amount: beers Hx Substance Use: Yes Substance Use Type: 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 Substance Use Comment - Amount & Last Used: Multiple Coricidin overdose Hx Tobacco Use: Yes Smoking Status (MU): Heavy Every Day Tobacco Smoker Type: Cigarettes Have You Smoked in the Last Year: Yes Review of Systems Neurological/Mental Status: Other - Negative AMS Psychological: Other - Positive SI Positive: Depressed All Other Systems Reviewed And Are Negative: Yes Physical Exam - Summary Physical Exam Summary: Constitutional: Well-developed, Well-nourished, Alert. (-) Distressed Skin: Warm, Dry HENT: Normocephalic; Atraumatic Eyes: Conjunctiva normal Neck: Musculoskeletal ROM normal neck. (-) JVD, (-) Stridor, (-) Nuchal rigidity Cardio: Rhythm regular, rate normal, Heart sounds normal; Intact distal pulses; Radial pulses are 2+ and symmetric. (-) Murmur Pulmonary/Chest wall: Effort normal. (-) Respiratory distress, (-) Wheezes, (-) Rales Abd: Soft, (-) tenderness, (-) Distension, (-) Guarding, (-) Rebound Musculoskeletal: (-) Edema Lymph: (-) Cervical adenopathy Neuro: Alert, Oriented x3 Psych: Mood and affect Normal. Positive SI. Triage Information Reviewed: Yes Vital Signs Reviewed: Yes Procedures - Sedation Patient Received Moderate/Deep Sedation with Procedure: No Diagnostics - Laboratory Result Diagrams: 08/12/19 10:45 08/12/19 10:45 Lab Statement: Any lab studies that have been ordered have been reviewed, and results considered in the medical decision making process. Re-Evaluation - Re-Evaluation First Eval Re-Evaluation Time: 10:43 Change: Unchanged Comment: At 10:43, patient is medically cleared for a mental health evaluation. Second Eval Re-Evaluation Time: 14:26 Change: Unchanged Comment: At 14:26, patient is sleeping. Third Eval Re-Evaluation Time: 16:19 Change: Improved Comment: At 16:19, patient is alert and oriented. He is ambulating with a steady gait. He was counselled on cessation of Corcidin. Course/Dx - Course Course Of Treatment: 29 y/o male w hx substance use d/o p/w intoxication and SI. - seen and cleared by psychiatry. Given IVF, observed for several hours. No e/o intoxication on discharge. Ambulates w steady gait - Diagnoses Provider Diagnoses: Substance use disorder - Physician Notifications Discussed Care Of Patient With: Jesus Madrigal - At 10:43, Dr. Jesus Madrigal states patient will receive a mental health evaluation. At 14:24, drug abuse program coordinator reports that patients case was reviewed by Dr. Jesus Madrigal who will not admit the patient to [facility]. Time Discussed With Above Provider: 10:43 Discharge ED - Sign-Out/Discharge Documenting (check all that apply): Patient Departure - Discharge - Discharge Plan Condition: Stable Disposition: HOME Patient Education Materials: Polysubstance Abuse (ED) Referrals: [facility] [Outside] Additional Instructions: You were seen in the emergency department for substance use disorder. Please do not take [id number] cough syrup. Please follow up with your primary care doctor in next 2-3 days and return to emergency department for worsening or concerning symptoms. It was a pleasure taking care of you today. - Billing Disposition and Condition Condition: STABLE Disposition: Home - Attestation Statements Document Initiated by Scribe: Yes Documenting Scribe: Shira De Oliveira Provider For Whom Mario is Documenting (Include Credential): Javon Marques MD Scribe Attestation: IShira, scribed for Javon Marques MD on 08/12/19 at 1643. Scribe Documentation Reviewed: Yes Provider Attestation: The documentation as recorded by the Shira fournier accurately reflects the service I personally performed and the decisions made by me, Javon Marques MD Status of Scribe Document: Viewed
[2019-08-12 10:41] VITALS: BP 126/90
[2019-08-12 10:59] LABS: ABS Basophils 0.1 10^3/ul (0-0.2); ABS Eosinophils 0.1 10^3/ul (0-0.6); ABS Lymphocytes 2.1 10^3/ul (1.0-4.8); ABS Monocytes 0.9 10^3/ul (0-0.8); ABS Neutrophils 3.8 10^3/ul (1.5-7.7); Eosinophil % 1.8 %; Hematocrit 40 % (42-52); Hemoglobin 13.4 g/dL (14.0-18.0); Lymphocyte % 29.7 %; Mean Corpuscular HGB Conc 34 g/dL (31-36); Mean Corpuscular Hemoglobin 30 pg (27-31); Mean Corpuscular Volume 89 fL (80-94); Mean Platelet Volume 7.8 fL (7.4-10.4); Platelet Count 218 10^3/uL (150-450); Red Blood Count 4.45 10^6 /uL (4.18-5.48); Red Cell Distribution Width 15 % (10-15)
[2019-08-12 11:20] LABS: ALT 62 U/L (7-52); AST 157 U/L (13-39); Albumin 4.2 g/dL (3.2-5.2); Albumin/Globulin Ratio 1.8 (1-3); Alkaline Phosphatase 59 U/L (34-104); Anion Gap 7 mmol/L (2-11); Blood Urea Nitrogen 9 mg/dL (6-24); CO2 Carbon Dioxide 24 mmol/L (22-32); Chloride 106 mmol/L (101-111); EGFR Non-African American 123.1 (>60); Globulin 2.4 g/dL (2-4); Glucose 83 mg/dL (70-100); Potassium 3.8 mmol/L (3.5-5.0); Sodium 137 mmol/L (135-145); Total Protein 6.6 g/dL (6.4-8.9)
[2019-08-12 11:42] LABS: Acetaminophen < 15 mcg/mL; Alcohol 22 mg/dL (<10); Salicylate < 2.50 mg/dL (<30)
[2019-08-12 11:53] LABS: TSH (Thyroid Stimulating Horm) 14.03 mcIU/mL (0.34-5.60)
[2019-08-12 12:24] LABS: Urine Appearance Clear; Urine Bilirubin Negative (Negative); Urine Blood Negative (Negative); Urine Color Colorless; Urine Glucose Negative (Negative); Urine Ketones Negative (Negative); Urine Nitrite Negative (Negative); Urine Protein Negative (Negative); Urine Specific Gravity 1.003 (1.010-1.030); Urine Urobilinogen Negative (Negative)
[2019-08-12 12:50] LABS: Urine Benzodiazepine Screen None Detected (None Detect); Urine Opiates Screen None Detected (None Detect)
== END | disposition home or self-care (01) ==
LOC: ED 10:33
DX: F19.90 Other psychoactive substance use, unspecified, uncomplicated (principal); E03.9 Hypothyroidism, unspecified; I10 Essential (primary) hypertension; F41.9 Anxiety disorder, unspecified; F43.10 Post-traumatic stress disorder, unspecified; F31.9 Bipolar disorder, unspecified; F17.210 Nicotine dependence, cigarettes, uncomplicated
CPT/HCPCS: 36415; 80053; 80307; 80320; 80329; 81003; 84443; 85025; 96360; 96361; 99283; A9270-GY; G0480

== ENCOUNTER 2019-08-18 10:05 | Emergency (ER) | payer OTHER ==
[2019-08-18 10:56] LABS: ABS Basophils 0.1 10^3/ul (0-0.2); ABS Eosinophils 0.2 10^3/ul (0-0.6); ABS Lymphocytes 2.7 10^3/ul (1.0-4.8); ABS Monocytes 1.2 10^3/ul (0-0.8); ABS Neutrophils 4.5 10^3/ul (1.5-7.7); Eosinophil % 1.7 %; Hematocrit 39 % (42-52); Hemoglobin 13.4 g/dL (14.0-18.0); Lymphocyte % 31.6 %; Mean Corpuscular HGB Conc 34 g/dL (31-36); Mean Corpuscular Hemoglobin 30 pg (27-31); Mean Corpuscular Volume 89 fL (80-94); Mean Platelet Volume 7.7 fL (7.4-10.4); Nucleated Red Blood Cells % 0.1; Platelet Count 217 10^3/uL (150-450); Red Blood Count 4.45 10^6 /uL (4.18-5.48); Red Cell Distribution Width 15 % (10-15); White Blood Count 8.7 10^3/uL (3.5-10.8)
[2019-08-18 11:08] LABS: ALT 37 U/L (7-52); AST 28 U/L (13-39); Albumin 3.9 g/dL (3.2-5.2); Albumin/Globulin Ratio 1.5 (1-3); Alkaline Phosphatase 69 U/L (34-104); Anion Gap 7 mmol/L (2-11); BUN/Creatinine Ratio 13.3 (8-20); Blood Urea Nitrogen 12 mg/dL (6-24); CO2 Carbon Dioxide 27 mmol/L (22-32); Calcium 8.1 mg/dL (8.6-10.3); Chloride 102 mmol/L (101-111); EGFR African American 120.7 (>60); EGFR Non-African American 99.8 (>60); Globulin 2.6 g/dL (2-4); Glucose 123 mg/dL (70-100); Potassium 3.3 mmol/L (3.5-5.0); Sodium 136 mmol/L (135-145); Total Protein 6.5 g/dL (6.4-8.9)
[2019-08-18 11:43] LABS: Alcohol 363 mg/dL (<10); Salicylate < 2.50 mg/dL (<30)
[2019-08-18 11:46] LABS: Acetaminophen < 15 mcg/mL
--- NOTE | 2019-08-18 13:43 | ED ---
Complex/Multi-Sys Presentation - HPI Summary HPI Summary: 29 y/o male presented to [facility] after calling EMS for pain in his left knee. He was found in an alley outside [facility]. He admits to drinking alcohol and taking Corcidin. Pt claims to have jamshid all over. Pt is a level 5 caveat secondary to intoxication. - History Of Current Complaint Chief Complaint: EDSubstanceAbuse Time Seen by Provider: 08/18/19 10:07 Hx Obtained From: Patient, EMS Hx From Patient Unobtainable Due To: Other - intoxication Severity Currently: None Location: Negative - Allergies/Home Medications Allergies/Adverse Reactions: Allergies Allergy/AdvReac Type Severity Reaction Status Date / Time No Known Allergies Allergy Verified 08/10/19 00:58 Home Medications: Home Medications NK [No Home Medications Reported] 08/12/19 [History Confirmed 08/12/19] PMH/Surg Hx/FS Hx/Imm Hx Endocrine/Hematology History: Reports: Hx Thyroid Disease - Hypothyroidism Denies: Hx Anticoagulant Therapy, Hx Blood Disorders, Hx Blood Transfusions, Hx Bone Marrow Disease, Hx Diabetes, Hx Systemic Lupus Erythematosus, Hx Sickle Cell Disease, Hx Anemia, Hx Unexplained Bleeding, Other Endocrine/Hematological Disorders Cardiovascular History: Reports: Hx Hypertension Denies: Hx Aneurysm, Hx Angina, Hx Angioplasty, Hx Auto Implanted Cardiovert Defib, Hx Cardiac Arrest, Hx Cardiomegaly, Hx Congenital Heart Disease, Hx Congestive Heart Failure, Hx Coronary Artery Disease, Hx Deep Vein Thrombosis, Hx Embolism, Hx Hypercholesterolemia, Hx Hypotension, Hx Pacemaker/ICD, Hx Peripheral Vascular Disease, Hx Rheumatic Fever, Hx Syncope, Hx Valvular Heart Disease, Other Cardiovascular Problems/Disorders Respiratory History: Reports: Hx Pneumonia, Hx Seasonal Allergies Denies: Hx Asthma, Hx Chronic Bronchitis, Hx Chronic Obstructive Pulmonary Disease (COPD), Hx Cystic Fibrosis, Hx Lung Cancer, Hx Pleural Effusion, Hx Pulmonary Edema, Hx Pulmonary Embolism, Hx Sleep Apnea, Other Respiratory Problems/Disorders GI History: Reports: Hx Ulcer Denies: Hx Cirrhosis, Hx Crohn's Disease, Hx Diverticulosis, Hx Gall Bladder Disease, Hx Gastroesophageal Reflux Disease, Hx Gastrointestinal Bleed, Hx Hiatal Hernia, Hx Irritable Bowel, Hx Jaundice, Hx Obstructive Bowel, Hx Ileostomy, Hx Pyloric Stenosis, Other GI Disorders History: Reports: Hx Acute Renal Failure Denies: Hx Benign Prostatic Hyperplasia, Hx Chronic Renal Failure, Hx Dialysis, Hx Kidney Infection, Hx Kidney Stones, Hx Renal Disease, Other Problems/Disorders Musculoskeletal History: Denies: Hx Arthritis, Hx Back Problems, Hx Bursitis, Hx Congenital Bone Abnormalities, Hx Fibromyalgia, Hx Gout, Hx Orthopedic Injury, Hx Osteoporosis, Hx Scoliosis, Hx Tendonitis, Other Musculoskeletal History Sensory History: Denies: Hx Cataracts, Hx Contacts or Glasses, Hx Eye Injury, Hx Eye Prosthesis, Hx Glaucoma, Hx Legally Blind, Hx Macular Degeneration, Hx Vision Problem, Hx Deafness, Hx Hearing Aid, Other Sensory Impairments Opthamlomology History: Denies: Hx Cataracts, Hx Contacts or Glasses, Hx Eye Injury, Hx Eye Prosthesis, Hx Glaucoma, Hx Legally Blind, Hx Macular Degeneration, Hx Vision Problem, Other Sensory Impairments Neurological History: Reports: Hx Headaches, Hx Seizures Denies: Hx Dementia, Hx Developmental Delay, Hx Migraine, Hx Nerve Disease, Hx Spinal Cord Injury, Hx Transient Ischemic Attacks (TIA), Other Neuro Impairments/Disorders Psychiatric History: Reports: Hx Anxiety, Hx Depression, Hx Post Traumatic Stress Disorder, Hx Inpatient Treatment, Hx Community Mental Health Tx, Hx Bipolar Disorder, Hx of Violent Episodes Against Others, Hx Substance Abuse, Other Psychiatric Issues/Disorders Denies: Hx Attention Deficit Hyperactivity Disorder, Hx Eating Disorder, Hx Panic Disorder, Hx Schizophrenia, Hx Suicide Attempt - Cancer History Cancer Type, Location and Year: None reported Hx Chemotherapy: No Hx Radiation Therapy: No - Surgical History Surgery Procedure, Year, and Place: none Hx Anesthesia Reactions: No - Immunization History Date of Tetanus Vaccine: Unknown Date of Influenza Vaccine: None Infectious Disease History: No Infectious Disease History: Reports: Hx Hepatitis - Hep C Denies: Hx Clostridium Difficile, Hx Human Immunodeficiency Virus (HIV), Hx of Known/Suspected MRSA, Hx Shingles, Hx Tuberculosis, Hx Known/Suspected VRE, Hx Known/Suspected VRSA, History Other Infectious Disease, Traveled Outside the [place] in Last 30 Days - Family History Known Family History: Positive: Other - cancer Negative: Renal Disease Family History: father - ETOH - Social History Alcohol Use: Weekly Alcohol Amount: beers Hx Substance Use: Yes Substance Use Type: 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 Substance Use Comment - Amount & Last Used: Multiple Coricidin overdose Hx Tobacco Use: Yes Smoking Status (MU): Heavy Every Day Tobacco Smoker Type: Cigarettes Have You Smoked in the Last Year: Yes Review of Systems - ROS Summary Review of Systems Summary: Pt is a level 5 caveat secondary to intoxication Positive: Arthralgia - alleged pain in left knee All Other Systems Reviewed And Are Negative: No Physical Exam - Summary Physical Exam Summary: General: No distress, smells of vomit Cardiovascular: Skin is well perfused Pulmonary: No respiratory distress, no tachypnea Abdomen: Non-distended Skin: Warm, pink, dry Psych: Normal affect Neuro: A&Ox3, Slurred speech, Minimally responsive but able to respond to verbal stimuli Back: no CVA tenderness. Triage Information Reviewed: Yes Vital Signs On Initial Exam: Initial Vitals Temp Pulse Resp BP Pulse Ox 97.8 F 93 18 104/68 98 08/18/19 10:20 08/18/19 10:20 08/18/19 10:20 08/18/19 10:20 08/18/19 10:20 Vital Signs Reviewed: Yes Procedures - Sedation Patient Received Moderate/Deep Sedation with Procedure: No Diagnostics - Vital Signs Vital Signs Temp Pulse Resp BP Pulse Ox 08/18/19 10:20 97.8 F 93 18 104/68 98 - Laboratory Lab Results: Lab Results 08/18/19 08/18/19 Range/Units 10:40 10:40 WBC 8.7 (3.5-10.8) 10^3/uL RBC 4.45 (4.18-5.48) 10^6 /uL Hgb 13.4 L (14.0-18.0) g/dL Hct 39 L (42-52) % MCV 89 (80-94) fL MCH 30 (27-31) pg MCHC 34 (31-36) g/dL RDW 15 (10-15) % Plt Count 217 (150-450) 10^3/uL MPV 7.7 (7.4-10.4) fL Neut % (Auto) 52.0 % Lymph % (Auto) 31.6 % [place] % (Auto) 13.8 % Eos % (Auto) 1.7 % Baso % (Auto) 0.9 % Absolute Neuts (auto) 4.5 (1.5-7.7) 10^3/ul Absolute Lymphs (auto) 2.7 (1.0-4.8) 10^3/ul Absolute Monos (auto) 1.2 H (0-0.8) 10^3/ul Absolute Eos (auto) 0.2 (0-0.6) 10^3/ul Absolute Basos (auto) 0.1 (0-0.2) 10^3/ul Absolute Nucleated RBC 0.0 10^3/ul Nucleated RBC % 0.1 Sodium 136 (135-145) mmol/L Potassium 3.3 L (3.5-5.0) mmol/L Chloride 102 (101-111) mmol/L Carbon Dioxide 27 (22-32) mmol/L Anion Gap 7 (2-11) mmol/L BUN 12 (6-24) mg/dL Creatinine 0.90 (0.67-1.17) mg/dL Est GFR ( Amer) 120.7 (>60) Est GFR (Non-Af Amer) 99.8 (>60) BUN/Creatinine Ratio 13.3 (8-20) Glucose 123 H (70-100) mg/dL Calcium 8.1 L (8.6-10.3) mg/dL Total Bilirubin 0.50 (0.2-1.0) mg/dL AST 28 (13-39) U/L ALT 37 (7-52) U/L Alkaline Phosphatase 69 (34-104) U/L Total Protein 6.5 (6.4-8.9) g/dL Albumin 3.9 (3.2-5.2) g/dL Globulin 2.6 (2-4) g/dL Albumin/Globulin Ratio 1.5 (1-3) Salicylates < 2.50 (<30) mg/dL Acetaminophen < 15 mcg/mL Serum Alcohol 363 H (<10) mg/dL Result Diagrams: 08/18/19 10:40 08/18/19 10:40 Lab Statement: Any lab studies that have been ordered have been reviewed, and results considered in the medical decision making process. Re-Evaluation - Re-Evaluation First Eval Re-Evaluation Time: 17:33 Comment: Pt is mumbling words but is not coherent. Will continue to monitor Discharge ED - Sign-Out/Discharge Documenting (check all that apply): Sign-Out Patient Signing out patient TO: Javon Marques - Pt signed out to Dr. Marques at 1900 shift change pending sobriety. Receiving patient FROM: Marlon Wall - Discharge Plan Referrals: No Primary Care Phys,NOPCP [Primary Care Provider] - - Attestation Statements Document Initiated by Scribe: Yes Documenting Scribe: Tuan Vasquez Provider For Whom Mario is Documenting (Include Credential): Marlon Wall MD Scribe Attestation: Tuan Brunner, scribed for Marlon Wall MD on 08/18/19 at 1850. Status of Scribe Document: Ready
--- NOTE | 2019-08-18 20:24 | ED ---
Progress - Progress Note Progress Note: The patient is a sign-out from Dr. Marlon Wall MD, to Dr. Javon Marques MD, at change of shift at 1900 on 08/18/19, pending sobriety and discharge. Patient is awake, alert and oriented x3, and ambulatory. He is safe for discharge. Re-Evaluation - Re-Evaluation First Eval Re-Evaluation Time: 20:30 Change: Improved Comment: Patient awake, A&O x3, ambulatory, safe for d/c Course/Dx - Diagnoses Provider Diagnoses: Alcohol intoxication Discharge ED - Sign-Out/Discharge Documenting (check all that apply): Patient Departure - Patient will be discharged home., Receiving Sign-Out Receiving patient FROM: Marlon Wall - Patient is a sign-out from Dr. Marlon Wall MD, at change of shift at 1900 on 08/18/19, pending sobriety and discharge. - Discharge Plan Condition: Stable Disposition: HOME Patient Education Materials: Abuse of Alcohol (ED) Referrals: Care [facility] [Outside] Additional Instructions: You were seen in the emergency department for alcohol intoxication. Please don' t drink and drive. It was a pleasure taking care of you today. - Billing Disposition and Condition Condition: STABLE Disposition: Home - Attestation Statements Document Initiated by Mario: Yes Documenting Scribe: Nat Ibrahim Provider For Whom Mario is Documenting (Include Credential): Dr. Javon Marques MD Scribe Attestation: I, Nat Ibrahim, scribed for Dr. Javon Marques MD on 08/18/19 at 2045. Scribe Documentation Reviewed: Yes Provider Attestation: The documentation as recorded by the Nat fournier accurately reflects the service I personally performed and the decisions made by me, Dr. Javon Marques MD Status of Scribe Document: Viewed Procedures - Sedation Patient Received Moderate/Deep Sedation with Procedure: No
[2019-08-18 21:22] LABS: Urine Benzodiazepine Screen None Detected (None Detect); Urine Opiates Screen None Detected (None Detect)
[2019-08-18 21:42] VITALS: BP 98/60
== END 2019-08-18 22:10 | disposition home or self-care (01) ==
LOC: ED 10:05
DX: F10.929 Alcohol use, unspecified with intoxication, unspecified (principal); E03.9 Hypothyroidism, unspecified; I10 Essential (primary) hypertension; F41.9 Anxiety disorder, unspecified; F43.10 Post-traumatic stress disorder, unspecified; F31.9 Bipolar disorder, unspecified; F17.210 Nicotine dependence, cigarettes, uncomplicated
CPT/HCPCS: 36415; 80053; 80307; 80320; 80329; 85025; 99284; G0480

== ENCOUNTER 2019-08-19 09:46 | Emergency (ER) | payer OTHER ==
--- NOTE | 2019-08-19 10:22 | ED ---
Lower Extremity - HPI Summary HPI Summary: This patient is a 29 y/o male presenting to [facility] via EMS for left knee pain. Patient was in the ED yesterday for th same complaint and per report patient was found in an alley outside [facility] yesterday. Patient admits to drinking alcohol today. Patient is uncooperative with history and refuses to answer any further questions. HPI IS LIMITED DUE TO LEVEL 5 CAVEAT - uncooperative, alcohol intoxication Home Medications Medication Instructions Recorded Confirmed Type NK [No Home Medications Reported] 08/19/19 08/19/19 History - History of Current Complaint Chief Complaint: EDExtremityLower Stated Complaint: KNEE PAIN PER EMS Time Seen by Provider: 08/19/19 10:16 Hx Obtained From: Patient Hx From Patient Unobtainable Due To: Other - LEVEL 5 CAVEAT - uncooperative, alcohol intoxication Onset of Pain: Days Onset/Duration: Days Severity Currently: Severe Pain Intensity: 8 Pain Scale Used: 0-10 Numeric Timing: Lasting Days Location: Is Discrete @ - left knee Associated Signs And Symptoms: Positive: Knee Pain - left Aggravating Factor(s): Nothing Alleviating Factor(s): Nothing - Allergies/Home Medications Allergies/Adverse Reactions: Allergies Allergy/AdvReac Type Severity Reaction Status Date / Time No Known Allergies Allergy Verified 08/10/19 00:58 Home Medications: Home Medications NK [No Home Medications Reported] 08/19/19 [History Confirmed 08/19/19] PMH/Surg Hx/FS Hx/Imm Hx Endocrine/Hematology History: Reports: Hx Thyroid Disease - Hypothyroidism Denies: Hx Anticoagulant Therapy, Hx Blood Disorders, Hx Blood Transfusions, Hx Bone Marrow Disease, Hx Diabetes, Hx Systemic Lupus Erythematosus, Hx Sickle Cell Disease, Hx Anemia, Hx Unexplained Bleeding, Other Endocrine/Hematological Disorders Cardiovascular History: Reports: Hx Hypertension Denies: Hx Aneurysm, Hx Angina, Hx Angioplasty, Hx Auto Implanted Cardiovert Defib, Hx Cardiac Arrest, Hx Cardiomegaly, Hx Congenital Heart Disease, Hx Congestive Heart Failure, Hx Coronary Artery Disease, Hx Deep Vein Thrombosis, Hx Embolism, Hx Hypercholesterolemia, Hx Hypotension, Hx Pacemaker/ICD, Hx Peripheral Vascular Disease, Hx Rheumatic Fever, Hx Syncope, Hx Valvular Heart Disease, Other Cardiovascular Problems/Disorders Respiratory History: Reports: Hx Pneumonia, Hx Seasonal Allergies Denies: Hx Asthma, Hx Chronic Bronchitis, Hx Chronic Obstructive Pulmonary Disease (COPD), Hx Cystic Fibrosis, Hx Lung Cancer, Hx Pleural Effusion, Hx Pulmonary Edema, Hx Pulmonary Embolism, Hx Sleep Apnea, Other Respiratory Problems/Disorders GI History: Reports: Hx Ulcer Denies: Hx Cirrhosis, Hx Crohn's Disease, Hx Diverticulosis, Hx Gall Bladder Disease, Hx Gastroesophageal Reflux Disease, Hx Gastrointestinal Bleed, Hx Hiatal Hernia, Hx Irritable Bowel, Hx Jaundice, Hx Obstructive Bowel, Hx Ileostomy, Hx Pyloric Stenosis, Other GI Disorders History: Reports: Hx Acute Renal Failure Denies: Hx Benign Prostatic Hyperplasia, Hx Chronic Renal Failure, Hx Dialysis, Hx Kidney Infection, Hx Kidney Stones, Hx Renal Disease, Other Problems/Disorders Musculoskeletal History: Denies: Hx Arthritis, Hx Back Problems, Hx Bursitis, Hx Congenital Bone Abnormalities, Hx Fibromyalgia, Hx Gout, Hx Orthopedic Injury, Hx Osteoporosis, Hx Scoliosis, Hx Tendonitis, Other Musculoskeletal History Sensory History: Denies: Hx Cataracts, Hx Contacts or Glasses, Hx Eye Injury, Hx Eye Prosthesis, Hx Glaucoma, Hx Legally Blind, Hx Macular Degeneration, Hx Vision Problem, Hx Deafness, Hx Hearing Aid, Other Sensory Impairments Opthamlomology History: Denies: Hx Cataracts, Hx Contacts or Glasses, Hx Eye Injury, Hx Eye Prosthesis, Hx Glaucoma, Hx Legally Blind, Hx Macular Degeneration, Hx Vision Problem, Other Sensory Impairments Neurological History: Reports: Hx Headaches, Hx Seizures Denies: Hx Dementia, Hx Developmental Delay, Hx Migraine, Hx Nerve Disease, Hx Spinal Cord Injury, Hx Transient Ischemic Attacks (TIA), Other Neuro Impairments/Disorders Psychiatric History: Reports: Hx Anxiety, Hx Depression, Hx Post Traumatic Stress Disorder, Hx Inpatient Treatment, Hx Community Mental Health Tx, Hx Bipolar Disorder, Hx of Violent Episodes Against Others, Hx Substance Abuse, Other Psychiatric Issues/Disorders Denies: Hx Attention Deficit Hyperactivity Disorder, Hx Eating Disorder, Hx Panic Disorder, Hx Schizophrenia, Hx Suicide Attempt - Cancer History Cancer Type, Location and Year: None reported Hx Chemotherapy: No Hx Radiation Therapy: No - Surgical History Surgery Procedure, Year, and Place: none Hx Anesthesia Reactions: No - Immunization History Date of Tetanus Vaccine: Unknown Date of Influenza Vaccine: None Infectious Disease History: No Infectious Disease History: Reports: Hx Hepatitis - Hep C Denies: Hx Clostridium Difficile, Hx Human Immunodeficiency Virus (HIV), Hx of Known/Suspected MRSA, Hx Shingles, Hx Tuberculosis, Hx Known/Suspected VRE, Hx Known/Suspected VRSA, History Other Infectious Disease, Traveled Outside the [place] in Last 30 Days - Family History Known Family History: Positive: Other - cancer Negative: Renal Disease Family History: father - ETOH - Social History Alcohol Use: Daily Alcohol Amount: beers Hx Substance Use: Yes Substance Use Type: 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 Substance Use Comment - Amount & Last Used: Multiple Coricidin overdose Hx Tobacco Use: Yes Smoking Status (MU): Heavy Every Day Tobacco Smoker Type: Cigarettes Have You Smoked in the Last Year: Yes Review of Systems - ROS Summary Review of Systems Summary: ROS IS LIMITED DUE TO LEVEL 5 CAVEAT - uncooperative, alcohol intoxication Constitutional: Other - POSITIVE: alcohol intoxication Negative: Fever Musculoskeletal: Other - POSITIVE: left knee pain All Other Systems Reviewed And Are Negative: No Physical Exam - Summary Physical Exam Summary: VITAL SIGNS: Reviewed. GENERAL: Patient is a well-developed and nourished male who is lying comfortable in the stretcher. Patient is not in any acute respiratory distress. Patient refuses to given any history. HEAD AND FACE: No signs of trauma. No ecchymosis, hematomas or skull depressions. No sinus tenderness. Alcohol in his breath. EYES: PERRLA, EOMI x 2, No injected conjunctiva, no nystagmus. EARS: Hearing grossly intact. Ear canals and tympanic membranes are within normal limits. MOUTH: Oropharynx within normal limits. NECK: Supple, trachea is midline, no adenopathy, no JVD, no carotid bruit, no c- spine tenderness, neck with full ROM. CHEST: Symmetric, no tenderness at palpation LUNGS: Clear to auscultation bilaterally. No wheezing or crackles. CVS: Regular rate and rhythm, S1 and S2 present, no murmurs or gallops appreciated. ABDOMEN: Soft, non-tender. No signs of distention. No rebound, no guarding, and no masses palpated. Bowel sounds are normal. EXTREMITIES: FROM in all major joints, no edema, no cyanosis or clubbing. NEURO: Alert and oriented x 3. No acute neurological deficits. Speech is normal and follows commands. SKIN: Dry and warm. Bruising on lateral aspect of left knee. Triage Information Reviewed: Yes Vital Signs On Initial Exam: Initial Vitals Temp Pulse Resp BP Pulse Ox 98.3 F 78 16 136/79 98 08/19/19 09:55 08/19/19 09:55 08/19/19 09:55 08/19/19 09:55 08/19/19 09:55 Vital Signs Reviewed: Yes Completion Of Physical Exam Limited Due To: Level 5 - alcohol intoxication, uncooperative with history Procedures - Sedation Patient Received Moderate/Deep Sedation with Procedure: No Diagnostics - Vital Signs Vital Signs Temp Pulse Resp BP Pulse Ox 08/19/19 09:55 98.3 F 78 16 136/79 98 - Laboratory Result Diagrams: 08/19/19 10:45 08/19/19 10:45 Lab Statement: Any lab studies that have been ordered have been reviewed, and results considered in the medical decision making process. - Radiology left knee XR Radiology Interpretation Completed By: Radiologist Summary of Radiographic Findings: IMPRESSION: Joint effusion. No acute osseous injury. If symptoms persist, recommend repeat imaging. Dr. Fenton has reviewed this report. Lower Extremity Course/Dx - Course Assessment/Plan: This patient is a 29 y/o male presenting to [facility] via EMS for left knee pain. Patient was in the ED yesterday for th same complaint and per report patient was found in an alley outside [facility] yesterday. Patient admits to drinking alcohol today. Patient is uncooperative with history and refuses to answer any further questions. HPI IS LIMITED DUE TO LEVEL 5 CAVEAT - uncooperative, alcohol intoxication. In the ED course the patient was placed in a alarm security or surveillance monitor, IV access was obtained, IV fluids were started. Past medical records reviewed. Blood test w/o a significant abnormality except for hemoglobin 13.8, hematocrit 41, potassium is 3, glucose 127, lactic acid is 3.5 and calcium 8.5. Alcohol level is 321. At 5 PM the patient is alert and oriented 3. The patient is eating and drinking without any nausea or vomiting. The patient is sober. Patient will be discharged home with follow- up from his primary medical physician. Patient is hemodynamically stable, alert and oriented 3. - Diagnoses Provider Diagnoses: Alcohol intoxication Discharge ED - Sign-Out/Discharge Documenting (check all that apply): Patient Departure - Discharge home - Discharge Plan Condition: Stable Disposition: HOME Patient Education Materials: Alcohol Intoxication (ED) Referrals: [facility] [Outside] Additional Instructions: FOLLOW UP WITH YOUR PRIMARY CARE PROVIDER IN 2-3 DAYS. RETURN TO THE ED FOR ANY NEW OR WORSENING SYMPTOMS. - Billing Disposition and Condition Condition: STABLE Disposition: Home - Attestation Statements Document Initiated by Scribe: Yes Documenting Scribe: Mel Doty Provider For Whom Scribe is Documenting (Include Credential): Gorge Fenton MD Scribe Attestation: IMel, scribed for Gorge Fenton MD on 08/19/19 at 2045. Scribe Documentation Reviewed: Yes Provider Attestation: The documentation as recorded by the Mel fournier accurately reflects the service I personally performed and the decisions made by , Gorge Fenton MD Status of Scribe Document: Viewed
[2019-08-19 10:58] LABS: ABS Basophils 0.1 10^3/ul (0-0.2); ABS Eosinophils 0.1 10^3/ul (0-0.6); ABS Lymphocytes 2.3 10^3/ul (1.0-4.8); ABS Monocytes 1.3 10^3/ul (0-0.8); ABS Neutrophils 4.1 10^3/ul (1.5-7.7); Eosinophil % 0.7 %; Hematocrit 41 % (42-52); Hemoglobin 13.8 g/dL (14.0-18.0); Mean Corpuscular HGB Conc 34 g/dL (31-36); Mean Corpuscular Hemoglobin 30 pg (27-31); Mean Corpuscular Volume 89 fL (80-94); Mean Platelet Volume 7.2 fL (7.4-10.4); Nucleated Red Blood Cells % 0.1; Platelet Count 220 10^3/uL (150-450); Red Blood Count 4.62 10^6 /uL (4.18-5.48); Red Cell Distribution Width 15 % (10-15); White Blood Count 7.8 10^3/uL (3.5-10.8)
[2019-08-19 11:23] LABS: ALT 46 U/L (7-52); AST 36 U/L (13-39); Albumin 4.2 g/dL (3.2-5.2); Albumin/Globulin Ratio 1.8 (1-3); Alkaline Phosphatase 69 U/L (34-104); Anion Gap 11 mmol/L (2-11); BUN/Creatinine Ratio 12.5 (8-20); Blood Urea Nitrogen 10 mg/dL (6-24); CO2 Carbon Dioxide 26 mmol/L (22-32); Calcium 8.5 mg/dL (8.6-10.3); Chloride 101 mmol/L (101-111); EGFR African American 138.3 (>60); EGFR Non-African American 114.3 (>60); Globulin 2.3 g/dL (2-4); Glucose 127 mg/dL (70-100); Sodium 138 mmol/L (135-145); Total Protein 6.5 g/dL (6.4-8.9)
[2019-08-19] MEDS ORDERED: Potassium Chlor TAB* 20 MEQ TAB.ER PO ONE (11:33)
[2019-08-19] MEDS ORDERED: NS 0.9% 1000 ML** 1,000 ML IV ONE (11:34)
[2019-08-19 11:42] LABS: Acetaminophen < 15 mcg/mL; Alcohol 321 mg/dL (<10); Salicylate < 2.50 mg/dL (<30)
[2019-08-19 11:58] LABS: Magnesium 2.3 mg/dL (1.9-2.7)
[2019-08-19 13:15] LABS: Urine Appearance Clear; Urine Bilirubin Negative (Negative); Urine Blood Negative (Negative); Urine Color Straw; Urine Glucose Negative (Negative); Urine Ketones Negative (Negative); Urine Nitrite Negative (Negative); Urine Protein Negative (Negative); Urine Specific Gravity 1.002 (1.010-1.030); Urine Urobilinogen Negative (Negative)
[2019-08-19 13:39] LABS: Urine Benzodiazepine Screen None Detected (None Detect); Urine Opiates Screen None Detected (None Detect)
[2019-08-19 14:59] LABS: C Reactive Protein 1.21 mg/L (<8.01)
[2019-08-19 16:55] VITALS: BP 120/76
== END 2019-08-19 16:54 | disposition home or self-care (01) ==
LOC: ED 09:46
DX: F10.129 Alcohol abuse with intoxication, unspecified (principal); M25.562 Pain in left knee; E03.9 Hypothyroidism, unspecified; I10 Essential (primary) hypertension; N17.9 Acute kidney failure, unspecified; F17.210 Nicotine dependence, cigarettes, uncomplicated; F41.9 Anxiety disorder, unspecified; F32.9 Major depressive disorder, single episode, unspecified; Z79.899 Other long term (current) drug therapy
CPT/HCPCS: 36415; 80053; 80307; 80320; 80329; 81003; 83605; 83735; 85025; 86140; 96360; 99284; A9270-GY; G0480

== ENCOUNTER 2019-09-04 10:15 | Emergency (ER) | payer OTHER ==
--- NOTE | 2019-09-04 10:29 | ED ---
Substance Abuse/Use - HPI Summary HPI Summary: This patient is a 29 y/o male presenting to [facility] via EMS for Coricidin overdose today. 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 Per EMS patient was alert, oriented, and acting normal about 40 minutes prior to EMS arrival. EMS found the patient no the side walk confused and altered. Finger stick glucose is 118 per EMS. Patient denies alcohol use. Patient denies falling today. Patient has a history of dextromethorphan abuse. HPI IS LIMITED DUE TO LEVEL 5 CAVEAT - patient with altered mental status. Home Medications Medication Instructions Recorded Confirmed Type NK [No Home Medications Reported] 09/04/19 09/04/19 History - History Of Current Complaint Stated Complaint: OVERDOSE PER EMS Hx Obtained From: Patient, EMS Ingestion History: Type/Name Of Drug - Coricidin Overdose Characteristics: Oral Timing Of Abuse: Binge Use Severity Currently: Moderate Character: Other - Altered mental status Aggravating Factor(s): Other - unknown Alleviating Factor(s): Other - unknown Associated Signs And Symptoms: Altered Mental Status, Intentional Ingestion - Allergies/Home Medications Allergies/Adverse Reactions: Allergies Allergy/AdvReac Type Severity Reaction Status Date / Time No Known Allergies Allergy Verified 09/05/19 14:10 Home Medications: Home Medications NK [No Home Medications Reported] 09/05/19 [History Confirmed 09/05/19] PMH/Surg Hx/FS Hx/Imm Hx Endocrine/Hematology History: Reports: Hx Thyroid Disease - Hypothyroidism Denies: Hx Anticoagulant Therapy, Hx Blood Disorders, Hx Blood Transfusions, Hx Bone Marrow Disease, Hx Diabetes, Hx Systemic Lupus Erythematosus, Hx Sickle Cell Disease, Hx Anemia, Hx Unexplained Bleeding, Other Endocrine/Hematological Disorders Cardiovascular History: Reports: Hx Hypertension Denies: Hx Aneurysm, Hx Angina, Hx Angioplasty, Hx Auto Implanted Cardiovert Defib, Hx Cardiac Arrest, Hx Cardiomegaly, Hx Congenital Heart Disease, Hx Congestive Heart Failure, Hx Coronary Artery Disease, Hx Deep Vein Thrombosis, Hx Embolism, Hx Hypercholesterolemia, Hx Hypotension, Hx Pacemaker/ICD, Hx Peripheral Vascular Disease, Hx Rheumatic Fever, Hx Syncope, Hx Valvular Heart Disease, Other Cardiovascular Problems/Disorders Respiratory History: Reports: Hx Pneumonia, Hx Seasonal Allergies Denies: Hx Asthma, Hx Chronic Bronchitis, Hx Chronic Obstructive Pulmonary Disease (COPD), Hx Cystic Fibrosis, Hx Lung Cancer, Hx Pleural Effusion, Hx Pulmonary Edema, Hx Pulmonary Embolism, Hx Sleep Apnea, Other Respiratory Problems/Disorders GI History: Reports: Hx Ulcer Denies: Hx Cirrhosis, Hx Crohn's Disease, Hx Diverticulosis, Hx Gall Bladder Disease, Hx Gastroesophageal Reflux Disease, Hx Gastrointestinal Bleed, Hx Hiatal Hernia, Hx Irritable Bowel, Hx Jaundice, Hx Obstructive Bowel, Hx Ileostomy, Hx Pyloric Stenosis, Other GI Disorders History: Reports: Hx Acute Renal Failure Denies: Hx Benign Prostatic Hyperplasia, Hx Chronic Renal Failure, Hx Dialysis, Hx Kidney Infection, Hx Kidney Stones, Hx Renal Disease, Other Problems/Disorders Musculoskeletal History: Denies: Hx Arthritis, Hx Back Problems, Hx Bursitis, Hx Congenital Bone Abnormalities, Hx Fibromyalgia, Hx Gout, Hx Orthopedic Injury, Hx Osteoporosis, Hx Scoliosis, Hx Tendonitis, Other Musculoskeletal History Sensory History: Denies: Hx Cataracts, Hx Contacts or Glasses, Hx Eye Injury, Hx Eye Prosthesis, Hx Glaucoma, Hx Legally Blind, Hx Macular Degeneration, Hx Vision Problem, Hx Deafness, Hx Hearing Aid, Other Sensory Impairments Opthamlomology History: Denies: Hx Cataracts, Hx Contacts or Glasses, Hx Eye Injury, Hx Eye Prosthesis, Hx Glaucoma, Hx Legally Blind, Hx Macular Degeneration, Hx Vision Problem, Other Sensory Impairments Neurological History: Reports: Hx Headaches, Hx Seizures Denies: Hx Dementia, Hx Developmental Delay, Hx Migraine, Hx Nerve Disease, Hx Spinal Cord Injury, Hx Transient Ischemic Attacks (TIA), Other Neuro Impairments/Disorders Psychiatric History: Reports: Hx Anxiety, Hx Depression, Hx Post Traumatic Stress Disorder, Hx Inpatient Treatment, Hx Community Mental Health Tx, Hx Bipolar Disorder, Hx of Violent Episodes Against Others, Hx Substance Abuse, Other Psychiatric Issues/Disorders Denies: Hx Attention Deficit Hyperactivity Disorder, Hx Eating Disorder, Hx Panic Disorder, Hx Schizophrenia, Hx Suicide Attempt - Cancer History Cancer Type, Location and Year: None reported Hx Chemotherapy: No Hx Radiation Therapy: No - Surgical History Surgery Procedure, Year, and Place: none Hx Anesthesia Reactions: No - Immunization History Date of Tetanus Vaccine: Unknown Date of Influenza Vaccine: None Infectious Disease History: Reports: Hx Hepatitis - Hep C Denies: Hx Clostridium Difficile, Hx Human Immunodeficiency Virus (HIV), Hx of Known/Suspected MRSA, Hx Shingles, Hx Tuberculosis, Hx Known/Suspected VRE, Hx Known/Suspected VRSA, History Other Infectious Disease - Family History Known Family History: Positive: Other - cancer Negative: Renal Disease Family History: father - ETOH - Social History Alcohol Use: Daily Alcohol Amount: beers Hx Substance Use: Yes Substance Use Type: 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 Substance Use Comment - Amount & Last Used: Multiple Coricidin overdose Hx Tobacco Use: Yes Smoking Status (MU): Heavy Every Day Tobacco Smoker Type: Cigarettes Have You Smoked in the Last Year: Yes Review of Systems - ROS Summary Review of Systems Summary: ROS IS LIMITED DUE TO LEVEL 5 CAVEAT - patient with altered mental status Negative: Fever Positive: incontinence - urine Neurological/Mental Status: Other - POSITIVE: Altered mental status All Other Systems Reviewed And Are Negative: No Physical Exam - Summary Physical Exam Summary: VITAL SIGNS: Reviewed. GENERAL: Patient is a well-developed and obese male who is lying comfortable in the stretcher. Patient is not in any acute respiratory distress. HEAD AND FACE: No signs of trauma. No ecchymosis, hematomas or skull depressions. No sinus tenderness. EYES: Dilated pupils, EOMI x 2, No injected conjunctiva, no nystagmus. EARS: Hearing grossly intact. Ear canals and tympanic membranes are within normal limits. MOUTH: Oropharynx within normal limits. NECK: Supple, trachea is midline, no adenopathy, no JVD, no carotid bruit, no c- spine tenderness, neck with full ROM. CHEST: Symmetric, no tenderness at palpation LUNGS: Clear to auscultation bilaterally. No wheezing or crackles. CVS: Regular rate and rhythm, S1 and S2 present, no murmurs or gallops appreciated. ABDOMEN: Soft, non-tender. No signs of distention. No rebound, no guarding, and no masses palpated. Bowel sounds are normal. EXTREMITIES: FROM in all major joints, no edema, no cyanosis or clubbing. NEURO: Alert and confused, under the influence. He is unable to answer any questions. SKIN: Dry and warm. Patient has a fading bruising on right lower quadrant abdomen. Triage Information Reviewed: Yes Vital Signs On Initial Exam: Initial Vitals Temp Pulse Resp BP Pulse Ox 101 F 122 26 130/101 95 09/04/19 10:23 09/04/19 10:23 09/04/19 10:23 09/04/19 10:23 09/04/19 10:23 Vital Signs Reviewed: Yes Completion Of Physical Exam Limited Due To: Level 5 - Patient has altered mental status Procedures - Sedation Patient Received Moderate/Deep Sedation with Procedure: No Diagnostics - Laboratory Result Diagrams: 09/04/19 10:47 09/04/19 10:47 Lab Statement: Any lab studies that have been ordered have been reviewed, and results considered in the medical decision making process. - Radiology Chest XR Radiology Interpretation Completed By: Radiologist Summary of Radiographic Findings: IMPRESSION: No active cardiopulmonary disease is noted. Dr. Fenton has reviewed this report. - EKG 12:16 Cardiac Rate: NL - at 93 bpm EKG Rhythm: Sinus Rhythm Summary of EKG Findings: EKG at 1216 shows normal sinus rhythm at a rate of [address] elevations. This EKG is similar to previous. This EKG was interpreted and reviewed by ED physician. Re-Evaluation - Re-Evaluation First Eval Re-Evaluation Time: 11:50 Comment: Oral temperature is 98.8 F. Second Eval Re-Evaluation Time: 12:20 Comment: ED nurse reports she contacted poison control who recommend 6 hour observation. Third Eval Re-Evaluation Time: 16:35 Comment: Patient ambulated in the ED with a steady gait. Course/Dx - Course Assessment/Plan: This patient is a 29 y/o male presenting to [facility] via EMS for Coricidin overdose today. 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 Per EMS patient was alert, oriented, and acting normal about 40 minutes prior to EMS arrival. EMS found the patient no the side walk confused and altered. Finger stick glucose is 118 per EMS. Patient denies alcohol use. Patient denies falling today. Patient has a history of dextromethorphan abuse. HPI IS LIMITED DUE TO LEVEL 5 CAVEAT - patient with altered mental status. In the ED course the patient was placed in a environmental monitoring technician, IV access was obtained, IV fluids were started. Past medical records reviewed. Blood test w/o a significant abnormality except for hematocrit of 41 , INR 1.29, fibrinogen 417, glucose 68, CRP of 19.4, urinalysis is negative for UTI, urine toxicology positive for phencyclidine. In the ED course the patient was given glucose since the patient is hypoglycemic. Poison control was contacted and they recommended 6 hours of observation. At approximately 5 PM the patient is alert and oriented 3. The patient is drinking fluids without any nausea or vomiting. The patient is able to ambulate without any aid. The patient has a good steady walk. harness worker recommends for the patient to be discharged to [facility]. Patient is hemodynamically stable, alert and oriented 3. - Diagnoses Provider Diagnoses: Overdose Discharge ED - Sign-Out/Discharge Documenting (check all that apply): Patient Departure - Discharge - Discharge Plan Condition: Stable Disposition: HOME Patient Education Materials: Adult Overdose (ED) Referrals: [facility] [Outside] Additional Instructions: FOLLOW UP WITH YOUR PRIMARY CARE PROVIDER IN 2-3 DAYS, IF YOU DON'T HAVE ONE FOLLOW UP WITH [facility]. RETURN TO THE ED FOR ANY NEW OR WORSENING SYMPTOMS. - Billing Disposition and Condition Condition: STABLE Disposition: Home - Attestation Statements Document Initiated by Mario: Yes Documenting Scribe: Mel Doty Provider For Whom Mario is Documenting (Include Credential): Gorge Fenton MD Scribe Attestation: Mel Brunner scribed for Gorge Fenton MD on 09/06/19 at 0351. Scribe Documentation Reviewed: Yes Provider Attestation: The documentation as recorded by the Mel fournier accurately reflects the service I personally performed and the decisions made by Gorge mayen MD Status of Scribe Document: Viewed
[2019-09-04 11:02] LABS: ABS Basophils 0.1 10^3/ul (0-0.2); ABS Lymphocytes 1.7 10^3/ul (1.0-4.8); ABS Monocytes 0.6 10^3/ul (0-0.8); ABS Neutrophils 6.7 10^3/ul (1.5-7.7); Eosinophil % 0.4 %; Hematocrit 41 % (42-52); Mean Corpuscular HGB Conc 34 g/dL (31-36); Mean Corpuscular Hemoglobin 30 pg (27-31); Mean Corpuscular Volume 88 fL (80-94); Mean Platelet Volume 8.3 fL (7.4-10.4); Platelet Count 234 10^3/uL (150-450); Red Blood Count 4.67 10^6 /uL (4.18-5.48); Red Cell Distribution Width 15 % (10-15)
[2019-09-04 11:13] LABS: Activated Partial Thrombo Time 33.5 seconds (26.0-38.0); Fibrinogen 417.7 mg/dL (110.8-404.3); INR 1.29 (0.82-1.09)
[2019-09-04 11:22] LABS: Urine Appearance Clear; Urine Bilirubin Negative (Negative); Urine Blood Negative (Negative); Urine Color Colorless; Urine Glucose Negative (Negative); Urine Ketones Negative (Negative); Urine Nitrite Negative (Negative); Urine Protein Negative (Negative); Urine Specific Gravity 1.001 (1.010-1.030); Urine Urobilinogen Negative (Negative)
[2019-09-04 11:22] LABS: ALT 43 U/L (7-52); AST 24 U/L (13-39); Albumin 4.5 g/dL (3.2-5.2); Alkaline Phosphatase 72 U/L (34-104); Anion Gap 8 mmol/L (2-11); BUN/Creatinine Ratio 13.8 (8-20); Blood Urea Nitrogen 13 mg/dL (6-24); C Reactive Protein 19.41 mg/L (<8.01); CO2 Carbon Dioxide 23 mmol/L (22-32); Calcium 9.7 mg/dL (8.6-10.3); Chloride 107 mmol/L (101-111); Creatine Kinase 91 U/L (10-223); EGFR African American 114.8 (>60); EGFR Non-African American 94.9 (>60); Glucose 68 mg/dL (70-100); Potassium 3.5 mmol/L (3.5-5.0); Sodium 138 mmol/L (135-145)
[2019-09-04 11:23] LABS: Troponin I 0.01 ng/mL (<0.03)
[2019-09-04 11:38] LABS: Urine Benzodiazepine Screen None Detected (None Detect); Urine Opiates Screen None Detected (None Detect)
[2019-09-04] MEDS: NS 0.9% 1000 ML** 1,000 ML IV ONE (11:51)
[2019-09-04 11:53] LABS: Acetaminophen < 15 mcg/mL; Alcohol < 10 mg/dL (<10); Salicylate < 2.50 mg/dL (<30)
[2019-09-04 12:08] LABS: Albumin/Globulin Ratio 1.5 (1-3); TSH (Thyroid Stimulating Horm) 9.43 mcIU/mL (0.34-5.60); Total Protein 7.5 g/dL (6.4-8.9)
[2019-09-04 12:13] LABS: Erythrocyte Sed Rate 23 mm/Hr (0-14)
[2019-09-04 12:19] LABS: Influenza A Molecular Negative (Negative); Influenza B Molecular Negative (Negative)
[2019-09-04] MEDS: D10W 250 ML BAG* 250 ML IV SCH (13:07)
[2019-09-04 17:49] VITALS: BP 148/98
== END 2019-09-04 17:32 | disposition home or self-care (01) ==
LOC: ED 10:15
DX: T50.991A Poisoning by other drugs, medicaments and biological substances, accidental (unintentional), initial encounter (principal); E16.2 Hypoglycemia, unspecified; Y92.9 Unspecified place or not applicable; E03.9 Hypothyroidism, unspecified; I10 Essential (primary) hypertension; F17.210 Nicotine dependence, cigarettes, uncomplicated
CPT/HCPCS: 36415; 71045; 80053; 80307; 80320; 80329; 81003; 82550; 83605; 83880; 84443; 84484; 85025; 85384; 85610; 85652; 85730; 86140; 86850; 86900; 86901; 87040; 93005; 96360; 99284; G0480

== ENCOUNTER 2019-09-05 14:02 | Emergency (ER) | payer OTHER ==
--- NOTE | 2019-09-05 14:08 | ED ---
Substance Abuse/Use - HPI Summary HPI Summary: 29 y/o M with hx regular Coricidin abuse brought in by EMS after being found wandering around the streets minutes prior to arrival. Patient ingested unknown amounts of Coricidin today. Level 5 caveat secondary to AMS. - History Of Current Complaint Stated Complaint: OVERDOSE Time Seen by Provider: 09/05/19 14:05 Hx Obtained From: Patient, EMS - Allergies/Home Medications Allergies/Adverse Reactions: Allergies Allergy/AdvReac Type Severity Reaction Status Date / Time No Known Allergies Allergy Verified 09/05/19 14:10 Home Medications: Home Medications NK [No Home Medications Reported] 09/05/19 [History Confirmed 09/05/19] PMH/Surg Hx/FS Hx/Imm Hx Endocrine/Hematology History: Reports: Hx Thyroid Disease - Hypothyroidism Denies: Hx Anticoagulant Therapy, Hx Blood Disorders, Hx Blood Transfusions, Hx Bone Marrow Disease, Hx Diabetes, Hx Systemic Lupus Erythematosus, Hx Sickle Cell Disease, Hx Anemia, Hx Unexplained Bleeding, Other Endocrine/Hematological Disorders Cardiovascular History: Reports: Hx Hypertension Denies: Hx Aneurysm, Hx Angina, Hx Angioplasty, Hx Auto Implanted Cardiovert Defib, Hx Cardiac Arrest, Hx Cardiomegaly, Hx Congenital Heart Disease, Hx Congestive Heart Failure, Hx Coronary Artery Disease, Hx Deep Vein Thrombosis, Hx Embolism, Hx Hypercholesterolemia, Hx Hypotension, Hx Pacemaker/ICD, Hx Peripheral Vascular Disease, Hx Rheumatic Fever, Hx Syncope, Hx Valvular Heart Disease, Other Cardiovascular Problems/Disorders Respiratory History: Reports: Hx Pneumonia, Hx Seasonal Allergies Denies: Hx Asthma, Hx Chronic Bronchitis, Hx Chronic Obstructive Pulmonary Disease (COPD), Hx Cystic Fibrosis, Hx Lung Cancer, Hx Pleural Effusion, Hx Pulmonary Edema, Hx Pulmonary Embolism, Hx Sleep Apnea, Other Respiratory Problems/Disorders GI History: Reports: Hx Ulcer Denies: Hx Cirrhosis, Hx Crohn's Disease, Hx Diverticulosis, Hx Gall Bladder Disease, Hx Gastroesophageal Reflux Disease, Hx Gastrointestinal Bleed, Hx Hiatal Hernia, Hx Irritable Bowel, Hx Jaundice, Hx Obstructive Bowel, Hx Ileostomy, Hx Pyloric Stenosis, Other GI Disorders History: Reports: Hx Acute Renal Failure Denies: Hx Benign Prostatic Hyperplasia, Hx Chronic Renal Failure, Hx Dialysis, Hx Kidney Infection, Hx Kidney Stones, Hx Renal Disease, Other Problems/Disorders Musculoskeletal History: Denies: Hx Arthritis, Hx Back Problems, Hx Bursitis, Hx Congenital Bone Abnormalities, Hx Fibromyalgia, Hx Gout, Hx Orthopedic Injury, Hx Osteoporosis, Hx Scoliosis, Hx Tendonitis, Other Musculoskeletal History Sensory History: Denies: Hx Cataracts, Hx Contacts or Glasses, Hx Eye Injury, Hx Eye Prosthesis, Hx Glaucoma, Hx Legally Blind, Hx Macular Degeneration, Hx Vision Problem, Hx Deafness, Hx Hearing Aid, Other Sensory Impairments Opthamlomology History: Denies: Hx Cataracts, Hx Contacts or Glasses, Hx Eye Injury, Hx Eye Prosthesis, Hx Glaucoma, Hx Legally Blind, Hx Macular Degeneration, Hx Vision Problem, Other Sensory Impairments Neurological History: Reports: Hx Headaches, Hx Seizures Denies: Hx Dementia, Hx Developmental Delay, Hx Migraine, Hx Nerve Disease, Hx Spinal Cord Injury, Hx Transient Ischemic Attacks (TIA), Other Neuro Impairments/Disorders Psychiatric History: Reports: Hx Anxiety, Hx Depression, Hx Post Traumatic Stress Disorder, Hx Inpatient Treatment, Hx Community Mental Health Tx, Hx Bipolar Disorder, Hx of Violent Episodes Against Others, Hx Substance Abuse, Other Psychiatric Issues/Disorders Denies: Hx Attention Deficit Hyperactivity Disorder, Hx Eating Disorder, Hx Panic Disorder, Hx Schizophrenia, Hx Suicide Attempt - Cancer History Cancer Type, Location and Year: None reported Hx Chemotherapy: No Hx Radiation Therapy: No - Surgical History Surgery Procedure, Year, and Place: none Hx Anesthesia Reactions: No - Immunization History Date of Tetanus Vaccine: Unknown Date of Influenza Vaccine: None Infectious Disease History: Reports: Hx Hepatitis - Hep C Denies: Hx Clostridium Difficile, Hx Human Immunodeficiency Virus (HIV), Hx of Known/Suspected MRSA, Hx Shingles, Hx Tuberculosis, Hx Known/Suspected VRE, Hx Known/Suspected VRSA, History Other Infectious Disease - Family History Known Family History: Positive: Other - cancer Negative: Renal Disease Family History: father - ETOH - Social History Alcohol Use: Daily Alcohol Amount: beers Hx Substance Use: Yes Substance Use Type: 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 Substance Use Comment - Amount & Last Used: Multiple Coricidin overdose Hx Tobacco Use: Yes Smoking Status (MU): Heavy Every Day Tobacco Smoker Type: Cigarettes Have You Smoked in the Last Year: Yes Review of Systems - ROS Summary Review of Systems Summary: LEVEL 5 CAVEAT secondary to AMS Neurological/Mental Status: Other - AMS All Other Systems Reviewed And Are Negative: No Physical Exam - Summary Physical Exam Summary: Constitutional: Well-developed, Well-nourished, Alert. (-) Distressed Skin: Warm, Dry HENT: Normocephalic; Atraumatic Eyes: Conjunctiva normal; pupils are sluggish Neck: Musculoskeletal ROM normal neck. (-) JVD, (-) Stridor, (-) Nuchal rigidity Cardio: Rhythm regular, rate normal, Heart sounds normal; Intact distal pulses; Radial pulses are 2+ and symmetric. (-) Murmur Pulmonary/Chest wall: Effort normal. (-) Respiratory distress, (-) Wheezes, (-) Rales Abd: Soft, (-) tenderness, (-) Distension, (-) Guarding, (-) Rebound Musculoskeletal: (-) Edema Lymph: (-) Cervical adenopathy Neuro: Alert, Oriented x2, no focal deficits Psych: Mood and affect Normal Triage Information Reviewed: Yes Vital Signs Reviewed: Yes Procedures - Sedation Patient Received Moderate/Deep Sedation with Procedure: No Diagnostics - Laboratory Result Diagrams: 09/05/19 14:21 09/05/19 14:21 Lab Statement: Any lab studies that have been ordered have been reviewed, and results considered in the medical decision making process. - EKG 1441 Cardiac Rate: NL - 81 BPM EKG Rhythm: Sinus Rhythm Summary of EKG Findings: QTc 475. ED physician has reviewed and interpreted this EKG Re-Evaluation - Re-Evaluation First Eval Re-Evaluation Time: 18:00 Change: Improved - patient ambulated well in the ED, AAOx3. Tolerating PO Course/Dx - Course Course Of Treatment: 29 y/o male p/w dextromethorphan overdose. - VSS NAD. PE intoxicated. Check labs, EKG, will monitor for sobriety - Diagnoses Provider Diagnoses: Substance use disorder Discharge ED - Sign-Out/Discharge Documenting (check all that apply): Patient Departure - Discharge Plan Condition: Stable Disposition: HOME Patient Education Materials: Polysubstance Abuse (ED) Referrals: [facility] [Outside] Additional Instructions: You were seen in the emergency department for drug use. Please don't drink/use drugs and drive. It was a pleasure taking care of you today. - Billing Disposition and Condition Condition: STABLE Disposition: Home - Attestation Statements Document Initiated by Scribe: Yes Documenting Scribe: Deb Duncan Provider For Whom Scribe is Documenting (Include Credential): Javon Marques MD Scribe Attestation: I, Deb Duncan, scribed for Javon Marques MD on 09/05/19 at 1844. Scribe Documentation Reviewed: Yes Provider Attestation: The documentation as recorded by the sandovalibDeb yuan accurately reflects the service I personally performed and the decisions made by , Javon Marques MD Status of Scribe Document: Viewed
[2019-09-05 14:27] LABS: ABS Eosinophils 0.1 10^3/ul (0-0.6); ABS Lymphocytes 3.2 10^3/ul (1.0-4.8); ABS Monocytes 0.6 10^3/ul (0-0.8); ABS Neutrophils 4.4 10^3/ul (1.5-7.7); Eosinophil % 1.7 %; Hematocrit 41 % (42-52); Hemoglobin 13.5 g/dL (14.0-18.0); Lymphocyte % 38.3 %; Mean Corpuscular HGB Conc 33 g/dL (31-36); Mean Corpuscular Hemoglobin 29 pg (27-31); Mean Corpuscular Volume 89 fL (80-94); Mean Platelet Volume 7.9 fL (7.4-10.4); Nucleated Red Blood Cells % 0.2; Platelet Count 252 10^3/uL (150-450); Red Blood Count 4.59 10^6 /uL (4.18-5.48); Red Cell Distribution Width 15 % (10-15); White Blood Count 8.3 10^3/uL (3.5-10.8)
[2019-09-05 14:43] LABS: ALT 45 U/L (7-52); AST 31 U/L (13-39); Albumin/Globulin Ratio 1.5 (1-3); Alkaline Phosphatase 68 U/L (34-104); Anion Gap 11 mmol/L (2-11); BUN/Creatinine Ratio 14.6 (8-20); Blood Urea Nitrogen 15 mg/dL (6-24); CO2 Carbon Dioxide 23 mmol/L (22-32); Calcium 8.6 mg/dL (8.6-10.3); Chloride 105 mmol/L (101-111); EGFR African American 103.3 (>60); EGFR Non-African American 85.4 (>60); Globulin 2.6 g/dL (2-4); Glucose 106 mg/dL (70-100); Potassium 3.2 mmol/L (3.5-5.0); Sodium 139 mmol/L (135-145); Total Protein 6.6 g/dL (6.4-8.9)
[2019-09-05 15:12] LABS: Creatine Kinase 222 U/L (10-223)
[2019-09-05 15:22] LABS: Acetaminophen < 15 mcg/mL; Salicylate < 2.50 mg/dL (<30)
[2019-09-05 18:54] VITALS: BP 100/60
== END 2019-09-05 18:53 | disposition home or self-care (01) ==
LOC: ED 14:02
DX: T48.5X2A Poisoning by other anti-common-cold drugs, intentional self-harm, initial encounter (principal); R41.82 Altered mental status, unspecified; Y92.9 Unspecified place or not applicable; I10 Essential (primary) hypertension; N17.9 Acute kidney failure, unspecified; F17.210 Nicotine dependence, cigarettes, uncomplicated
CPT/HCPCS: 36415; 80053; 80329; 82550; 85025; 93005; 99283; G0480

== ENCOUNTER 2019-09-06 15:36 | Emergency (ER) | payer OTHER ==
[2019-09-06] MEDS ORDERED: NS 0.9% 1000 ML** 1,000 ML IV ONE ×2 (15:42→16:52)
--- NOTE | 2019-09-06 15:46 | ED ---
Substance Abuse/Use - HPI Summary HPI Summary: 29 y/o M with hx polysubstance abuse brought in by EMS for altered mental status. EMS states patient may have used K2 today. Level 5 caveat secondary to AMS. Patient has hx of dextromethorphan use and EtOH use. - History Of Current Complaint Stated Complaint: OVERDOSE PER EMS Hx Obtained From: EMS - Allergies/Home Medications Allergies/Adverse Reactions: Allergies Allergy/AdvReac Type Severity Reaction Status Date / Time No Known Allergies Allergy Verified 09/05/19 14:10 Home Medications: Home Medications NK [No Home Medications Reported] 09/05/19 [History Confirmed 09/06/19] PMH/Surg Hx/FS Hx/Imm Hx Endocrine/Hematology History: Reports: Hx Thyroid Disease - Hypothyroidism Denies: Hx Anticoagulant Therapy, Hx Blood Disorders, Hx Blood Transfusions, Hx Bone Marrow Disease, Hx Diabetes, Hx Systemic Lupus Erythematosus, Hx Sickle Cell Disease, Hx Anemia, Hx Unexplained Bleeding, Other Endocrine/Hematological Disorders Cardiovascular History: Reports: Hx Hypertension Denies: Hx Aneurysm, Hx Angina, Hx Angioplasty, Hx Auto Implanted Cardiovert Defib, Hx Cardiac Arrest, Hx Cardiomegaly, Hx Congenital Heart Disease, Hx Congestive Heart Failure, Hx Coronary Artery Disease, Hx Deep Vein Thrombosis, Hx Embolism, Hx Hypercholesterolemia, Hx Hypotension, Hx Pacemaker/ICD, Hx Peripheral Vascular Disease, Hx Rheumatic Fever, Hx Syncope, Hx Valvular Heart Disease, Other Cardiovascular Problems/Disorders Respiratory History: Reports: Hx Pneumonia, Hx Seasonal Allergies Denies: Hx Asthma, Hx Chronic Bronchitis, Hx Chronic Obstructive Pulmonary Disease (COPD), Hx Cystic Fibrosis, Hx Lung Cancer, Hx Pleural Effusion, Hx Pulmonary Edema, Hx Pulmonary Embolism, Hx Sleep Apnea, Other Respiratory Problems/Disorders GI History: Reports: Hx Ulcer Denies: Hx Cirrhosis, Hx Crohn's Disease, Hx Diverticulosis, Hx Gall Bladder Disease, Hx Gastroesophageal Reflux Disease, Hx Gastrointestinal Bleed, Hx Hiatal Hernia, Hx Irritable Bowel, Hx Jaundice, Hx Obstructive Bowel, Hx Ileostomy, Hx Pyloric Stenosis, Other GI Disorders History: Reports: Hx Acute Renal Failure Denies: Hx Benign Prostatic Hyperplasia, Hx Chronic Renal Failure, Hx Dialysis, Hx Kidney Infection, Hx Kidney Stones, Hx Renal Disease, Other Problems/Disorders Musculoskeletal History: Denies: Hx Arthritis, Hx Back Problems, Hx Bursitis, Hx Congenital Bone Abnormalities, Hx Fibromyalgia, Hx Gout, Hx Orthopedic Injury, Hx Osteoporosis, Hx Scoliosis, Hx Tendonitis, Other Musculoskeletal History Sensory History: Denies: Hx Cataracts, Hx Contacts or Glasses, Hx Eye Injury, Hx Eye Prosthesis, Hx Glaucoma, Hx Legally Blind, Hx Macular Degeneration, Hx Vision Problem, Hx Deafness, Hx Hearing Aid, Other Sensory Impairments Opthamlomology History: Denies: Hx Cataracts, Hx Contacts or Glasses, Hx Eye Injury, Hx Eye Prosthesis, Hx Glaucoma, Hx Legally Blind, Hx Macular Degeneration, Hx Vision Problem, Other Sensory Impairments Neurological History: Reports: Hx Headaches, Hx Seizures Denies: Hx Dementia, Hx Developmental Delay, Hx Migraine, Hx Nerve Disease, Hx Spinal Cord Injury, Hx Transient Ischemic Attacks (TIA), Other Neuro Impairments/Disorders Psychiatric History: Reports: Hx Anxiety, Hx Depression, Hx Post Traumatic Stress Disorder, Hx Inpatient Treatment, Hx Community Mental Health Tx, Hx Bipolar Disorder, Hx of Violent Episodes Against Others, Hx Substance Abuse, Other Psychiatric Issues/Disorders Denies: Hx Attention Deficit Hyperactivity Disorder, Hx Eating Disorder, Hx Panic Disorder, Hx Schizophrenia, Hx Suicide Attempt - Cancer History Cancer Type, Location and Year: None reported Hx Chemotherapy: No Hx Radiation Therapy: No - Surgical History Surgery Procedure, Year, and Place: none Hx Anesthesia Reactions: No - Immunization History Date of Tetanus Vaccine: Unknown Date of Influenza Vaccine: None Infectious Disease History: Reports: Hx Hepatitis - Hep C Denies: Hx Clostridium Difficile, Hx Human Immunodeficiency Virus (HIV), Hx of Known/Suspected MRSA, Hx Shingles, Hx Tuberculosis, Hx Known/Suspected VRE, Hx Known/Suspected VRSA, History Other Infectious Disease - Family History Known Family History: Positive: Other - cancer Negative: Renal Disease Family History: father - ETOH - Social History Alcohol Use: Daily Alcohol Amount: beers Hx Substance Use: Yes Substance Use Type: 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 Substance Use Comment - Amount & Last Used: Multiple Coricidin overdose Hx Tobacco Use: Yes Smoking Status (MU): Heavy Every Day Tobacco Smoker Type: Cigarettes Have You Smoked in the Last Year: Yes Review of Systems - ROS Summary Review of Systems Summary: LEVEL 5 CAVEAT ROS is limited secondary to altered mental status Neurological/Mental Status: Other - AMS All Other Systems Reviewed And Are Negative: No Physical Exam - Summary Physical Exam Summary: Constitutional: Well-developed, Well-nourished, Alert. (-) Distressed; Patient is intoxicated Skin: Warm, Dry HENT: Normocephalic; Atraumatic Eyes: Conjunctiva normal; pupils are dilated and sluggish Neck: Musculoskeletal ROM normal neck. (-) JVD, (-) Stridor, (-) Nuchal rigidity Cardio: Rhythm regular, tachycardic, Heart sounds normal; Intact distal pulses; Radial pulses are 2+ and symmetric. (-) Murmur Pulmonary/Chest wall: Effort normal. (-) Respiratory distress, (-) Wheezes, (-) Rales Abd: Soft, (-) tenderness, (-) Distension, (-) Guarding, (-) Rebound Musculoskeletal: (-) Edema Lymph: (-) Cervical adenopathy Neuro: He is somnolent but rouses to voice; Moving all extremities Psych: Deferred Triage Information Reviewed: Yes Vital Signs Reviewed: Yes Procedures - Sedation Patient Received Moderate/Deep Sedation with Procedure: No Diagnostics - Laboratory Result Diagrams: 09/06/19 16:25 09/06/19 16:25 Lab Statement: Any lab studies that have been ordered have been reviewed, and results considered in the medical decision making process. - EKG 1608 Cardiac Rate: Tachycardia - 114 BPM EKG Rhythm: Sinus Tachycardia Summary of EKG Findings: Prolonged QTc 512. ED physician has reviewed and interpreted this EKG. Re-Evaluation - Re-Evaluation First Eval Re-Evaluation Time: 21:09 Change: Improved - patient ambulated well in the ED. will d/c. Course/Dx - Course Course Of Treatment: 29 y/o male p/w acute intoxication likely in setting of K2 use. -VS tachycardic, EKG sinus tach w slightly prolonged qtc. Mg 1.9, K 3.4, repleted. - Given 2 L IVF, observed in ED. Patient does not show any signs of trauma. Able to ambulate on own. Given food. - Diagnoses Provider Diagnoses: Substance abuse Discharge ED - Sign-Out/Discharge Documenting (check all that apply): Patient Departure - Discharge Plan Condition: Stable Disposition: HOME Patient Education Materials: Polysubstance Abuse (ED) Referrals: [facility] [Outside] Additional Instructions: You were seen in the emergency department for intoxication. Please don't drink /use drugs and drive. It was a pleasure taking care of you today. - Billing Disposition and Condition Condition: STABLE Disposition: Home - Attestation Statements Document Initiated by Scribe: Yes Documenting Scribe: Deb Duncan Provider For Whom Shelleyiblissy is Documenting (Include Credential): Javon Marques MD Scribe Attestation: I, Deb Duncan, scribed for Javon Marques MD on 09/06/19 at 2118. Scribe Documentation Reviewed: Yes Provider Attestation: The documentation as recorded by the scribeDeb accurately reflects the service I personally performed and the decisions made by Javon mayen MD Status of Scribe Document: Viewed
[2019-09-06 16:33] LABS: ABS Basophils 0.1 10^3/ul (0-0.2); ABS Eosinophils 0.1 10^3/ul (0-0.6); ABS Lymphocytes 3.5 10^3/ul (1.0-4.8); ABS Monocytes 0.6 10^3/ul (0-0.8); ABS Neutrophils 4.2 10^3/ul (1.5-7.7); Eosinophil % 1.1 %; Hematocrit 40 % (42-52); Hemoglobin 13.5 g/dL (14.0-18.0); Lymphocyte % 41.5 %; Mean Corpuscular HGB Conc 34 g/dL (31-36); Mean Corpuscular Hemoglobin 30 pg (27-31); Mean Corpuscular Volume 88 fL (80-94); Platelet Count 276 10^3/uL (150-450); Red Blood Count 4.51 10^6 /uL (4.18-5.48); Red Cell Distribution Width 15 % (10-15); White Blood Count 8.6 10^3/uL (3.5-10.8)
[2019-09-06 16:49] LABS: Albumin 4.1 g/dL (3.2-5.2); Albumin/Globulin Ratio 1.3 (1-3); BUN/Creatinine Ratio 18.3 (8-20); Calcium 8.7 mg/dL (8.6-10.3); EGFR African American 134.4 (>60); EGFR Non-African American 111.1 (>60); Globulin 3.2 g/dL (2-4); Potassium 3.4 mmol/L (3.5-5.0); Total Bilirubin 0.3 mg/dL (0.2-1.0); Total Protein 7.3 g/dL (6.4-8.9)
[2019-09-06 17:00] LABS: Magnesium 1.9 mg/dL (1.9-2.7)
[2019-09-06] MEDS ORDERED: Magnesium Oxide TAB* 400 MG PO ONE (21:19)
[2019-09-06] MEDS ORDERED: Potassium Chlor TAB* 20 MEQ TAB.ER PO ONE (21:19)
[2019-09-06 21:26] VITALS: BP 142/98
== END 2019-09-06 21:28 | disposition home or self-care (01) ==
LOC: ED 15:36
DX: F19.10 Other psychoactive substance abuse, uncomplicated (principal); F17.210 Nicotine dependence, cigarettes, uncomplicated; E03.9 Hypothyroidism, unspecified; I10 Essential (primary) hypertension; N17.9 Acute kidney failure, unspecified; F41.9 Anxiety disorder, unspecified; F32.9 Major depressive disorder, single episode, unspecified; F43.10 Post-traumatic stress disorder, unspecified; R51 Headache; R94.31 Abnormal electrocardiogram [ECG] [EKG]
CPT/HCPCS: 36415; 80053; 82550; 83735; 85025; 93005; 96360; 96361; 99284; A9270-GY

== ENCOUNTER 2019-09-07 09:25 | Emergency (ER) | payer OTHER ==
--- NOTE | 2019-09-07 09:43 | ED ---
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 Patient states he took 48 tablets, which is his usual dosage. Patient is a level 5 caveat due to altered mental status. - History Of Current Complaint Chief Complaint: EDOverdose Stated Complaint: OVERDOSE Hx Obtained From: Patient Overdose Characteristics: Oral Severity Initially: Moderate - Allergies/Home Medications Allergies/Adverse Reactions: Allergies Allergy/AdvReac Type Severity Reaction Status Date / Time No Known Allergies Allergy Verified 09/05/19 14:10 Home Medications: Home Medications NK [No Home Medications Reported] 09/05/19 [History Confirmed 09/06/19] PMH/Surg Hx/FS Hx/Imm Hx Endocrine/Hematology History: Reports: Hx Thyroid Disease - Hypothyroidism Denies: Hx Anticoagulant Therapy, Hx Blood Disorders, Hx Blood Transfusions, Hx Bone Marrow Disease, Hx Diabetes, Hx Systemic Lupus Erythematosus, Hx Sickle Cell Disease, Hx Anemia, Hx Unexplained Bleeding, Other Endocrine/Hematological Disorders Cardiovascular History: Reports: Hx Hypertension Denies: Hx Aneurysm, Hx Angina, Hx Angioplasty, Hx Auto Implanted Cardiovert Defib, Hx Cardiac Arrest, Hx Cardiomegaly, Hx Congenital Heart Disease, Hx Congestive Heart Failure, Hx Coronary Artery Disease, Hx Deep Vein Thrombosis, Hx Embolism, Hx Hypercholesterolemia, Hx Hypotension, Hx Pacemaker/ICD, Hx Peripheral Vascular Disease, Hx Rheumatic Fever, Hx Syncope, Hx Valvular Heart Disease, Other Cardiovascular Problems/Disorders Respiratory History: Reports: Hx Pneumonia, Hx Seasonal Allergies Denies: Hx Asthma, Hx Chronic Bronchitis, Hx Chronic Obstructive Pulmonary Disease (COPD), Hx Cystic Fibrosis, Hx Lung Cancer, Hx Pleural Effusion, Hx Pulmonary Edema, Hx Pulmonary Embolism, Hx Sleep Apnea, Other Respiratory Problems/Disorders GI History: Reports: Hx Ulcer Denies: Hx Cirrhosis, Hx Crohn's Disease, Hx Diverticulosis, Hx Gall Bladder Disease, Hx Gastroesophageal Reflux Disease, Hx Gastrointestinal Bleed, Hx Hiatal Hernia, Hx Irritable Bowel, Hx Jaundice, Hx Obstructive Bowel, Hx Ileostomy, Hx Pyloric Stenosis, Other GI Disorders History: Reports: Hx Acute Renal Failure Denies: Hx Benign Prostatic Hyperplasia, Hx Chronic Renal Failure, Hx Dialysis, Hx Kidney Infection, Hx Kidney Stones, Hx Renal Disease, Other Problems/Disorders Musculoskeletal History: Denies: Hx Arthritis, Hx Back Problems, Hx Bursitis, Hx Congenital Bone Abnormalities, Hx Fibromyalgia, Hx Gout, Hx Orthopedic Injury, Hx Osteoporosis, Hx Scoliosis, Hx Tendonitis, Other Musculoskeletal History Sensory History: Denies: Hx Cataracts, Hx Contacts or Glasses, Hx Eye Injury, Hx Eye Prosthesis, Hx Glaucoma, Hx Legally Blind, Hx Macular Degeneration, Hx Vision Problem, Hx Deafness, Hx Hearing Aid, Other Sensory Impairments Opthamlomology History: Denies: Hx Cataracts, Hx Contacts or Glasses, Hx Eye Injury, Hx Eye Prosthesis, Hx Glaucoma, Hx Legally Blind, Hx Macular Degeneration, Hx Vision Problem, Other Sensory Impairments Neurological History: Reports: Hx Headaches, Hx Seizures Denies: Hx Dementia, Hx Developmental Delay, Hx Migraine, Hx Nerve Disease, Hx Spinal Cord Injury, Hx Transient Ischemic Attacks (TIA), Other Neuro Impairments/Disorders Psychiatric History: Reports: Hx Anxiety, Hx Depression, Hx Post Traumatic Stress Disorder, Hx Inpatient Treatment, Hx Community Mental Health Tx, Hx Bipolar Disorder, Hx of Violent Episodes Against Others, Hx Substance Abuse, Other Psychiatric Issues/Disorders Denies: Hx Attention Deficit Hyperactivity Disorder, Hx Eating Disorder, Hx Panic Disorder, Hx Schizophrenia, Hx Suicide Attempt - Cancer History Cancer Type, Location and Year: None reported Hx Chemotherapy: No Hx Radiation Therapy: No - Surgical History Surgery Procedure, Year, and Place: none Hx Anesthesia Reactions: No - Immunization History Date of Tetanus Vaccine: Unknown Date of Influenza Vaccine: None Infectious Disease History: No Infectious Disease History: Reports: Hx Hepatitis - Hep C Denies: Hx Clostridium Difficile, Hx Human Immunodeficiency Virus (HIV), Hx of Known/Suspected MRSA, Hx Shingles, Hx Tuberculosis, Hx Known/Suspected VRE, Hx Known/Suspected VRSA, History Other Infectious Disease, Traveled Outside the [place] in Last 30 Days - Family History Known Family History: Positive: Other - cancer Negative: Renal Disease Family History: father - ETOH - Social History Alcohol Use: Daily Alcohol Amount: beers Hx Substance Use: Yes Substance Use Type: 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 Substance Use Comment - Amount & Last Used: Multiple Coricidin overdose Hx Tobacco Use: Yes Smoking Status (MU): Heavy Every Day Tobacco Smoker Type: Cigarettes Have You Smoked in the Last Year: Yes - Additional Comments History Additional Comments: Level 5 caveat due to AMS Review of Systems Negative: Fever Neurological/Mental Status: Other - AMS All Other Systems Reviewed And Are Negative: No - Comments Additional Review of Systems Comments: ROS is level 5 caveat due to AMS. Physical Exam - Summary Physical Exam Summary: Appearance: The patient is well-nourished in no acute distress and in no acute pain. Skin: The skin is warm and dry and skin color reflects adequate perfusion. HEENT: The head is normocephalic and atraumatic. The pupils are equal and reactive. The conjunctivae are clear and without drainage. Nares are patent and without drainage. Mouth reveals moist mucous membranes and the throat is without erythema and exudate. The external ears are intact. The ear canals are patent and without drainage. The tympanic membranes are intact. Neck: The neck is supple with full range of motion and non-tender. There are no carotid bruits. There is no neck vein distension. Respiratory: Chest is non-tender. Lungs are clear to auscultation and breath sounds are symmetrical and equal. Cardiovascular: Heart is regular rate and rhythm. There is no murmur or rub auscultated. There is no peripheral edema and pulses are symmetrical and equal. Abdomen: The abdomen is soft and non-tender. There are normal bowel sounds heard in all four quadrants and there is no organomegaly palpated. Musculoskeletal: There is no back tenderness noted. Extremities are non-tender with full range of motion. There is good capillary refill. There is no peripheral edema or calf tenderness elicited. Neurological: Patient is alert and oriented to person, place and time. The patient has symmetrical motor strength in all four extremities. Cranial nerves are grossly intact. Deep tendon reflexes are symmetrical and equal in all four extremities. Psychiatric: The patient has an appropriate affect and does not exhibit any anxiety or depression. Triage Information Reviewed: Yes Vital Signs On Initial Exam: Initial Vitals Temp Pulse Resp BP Pulse Ox 98.1 F 110 16 172/115 98 09/07/19 09:26 09/07/19 09:26 09/07/19 09:26 09/07/19 09:26 09/07/19 09:26 Vital Signs Reviewed: Yes Procedures - Sedation Patient Received Moderate/Deep Sedation with Procedure: No Diagnostics - Vital Signs Vital Signs Temp Pulse Resp BP Pulse Ox 09/07/19 09:36 99 09/07/19 09:26 98.1 F 110 16 172/115 98 - Laboratory Result Diagrams: 09/07/19 10:09/07/19 10:03 Lab Statement: Any lab studies that have been ordered have been reviewed, and results considered in the medical decision making process. Course/Dx - Course Course Of Treatment: Siria presented to the her usual fashion. She admitted to taking 48 Coricidin pills which is her typical dose. She presented somewhat somnolent but answering questions. She took the bus here. She was observed here in the department while labs were obtained including a CPK and a lactic acid. These were not remarkable. There was no seizure activity observed while she was here and it's unlikely that her labs are going up. She got some fluid through the IV and at this point we are waiting for her to be less somnolent for discharge. - Diagnoses Provider Diagnoses: Polysubstance abuse Discharge ED - Sign-Out/Discharge Documenting (check all that apply): Sign-Out Patient Signing out patient TO: Nikunj Tez Ellynorma - Pending sobriety (discharge at 2000) at shift change 1900 09/07/2019 - Discharge Plan Condition: Stable Disposition: HOME Referrals: No Primary Care Phys,NOPCP [Primary Care Provider] - - Billing Disposition and Condition Condition: STABLE Disposition: Home - Attestation Statements Document Initiated by Scribe: Yes Documenting Scribe: Dario Hodgson Provider For Whom Mario is Documenting (Include Credential): Brayan Haider MD Scribe Attestation: Dario Brunner, scribed for Brayan Haider MD on 09/07/19 at 1842. Scribe Documentation Reviewed: Yes Provider Attestation: The documentation as recorded by the Dario fournier accurately reflects the service I personally performed and the decisions made by me, Brayan Haider MD Status of Scribe Document: Viewed
[2019-09-07] MEDS ORDERED: NS 0.9% 1000 ML** 2,000 ML IV ONE (09:46)
[2019-09-07 10:29] LABS: ABS Basophils 0.1 10^3/ul (0-0.2); ABS Monocytes 1.2 10^3/ul (0-0.8); ABS Neutrophils 8.7 10^3/ul (1.5-7.7); Eosinophil % 0.1 %; Hematocrit 44 % (42-52); Lymphocyte % 16.4 %; Mean Corpuscular HGB Conc 34 g/dL (31-36); Mean Corpuscular Hemoglobin 30 pg (27-31); Mean Corpuscular Volume 88 fL (80-94); Mean Platelet Volume 8.2 fL (7.4-10.4); Platelet Count 319 10^3/uL (150-450); Red Blood Count 5.03 10^6 /uL (4.18-5.48); Red Cell Distribution Width 15 % (10-15)
[2019-09-07 10:40] LABS: Urine Appearance Clear; Urine Bilirubin Negative (Negative); Urine Blood 1+ (Negative); Urine Color Yellow; Urine Glucose Negative (Negative); Urine Ketones Negative (Negative); Urine Nitrite Negative (Negative); Urine Protein Negative (Negative); Urine Specific Gravity 1.004 (1.010-1.030); Urine Urobilinogen Negative (Negative)
[2019-09-07 10:43] LABS: ALT 47 U/L (7-52); AST 30 U/L (13-39); Albumin/Globulin Ratio 1.5 (1-3); Alkaline Phosphatase 83 U/L (34-104); Anion Gap 10 mmol/L (2-11); BUN/Creatinine Ratio 9.4 (8-20); Blood Urea Nitrogen 9 mg/dL (6-24); CO2 Carbon Dioxide 26 mmol/L (22-32); Calcium 10.4 mg/dL (8.6-10.3); Chloride 104 mmol/L (101-111); Creatine Kinase 244 U/L (10-223); EGFR African American 112.1 (>60); EGFR Non-African American 92.6 (>60); Globulin 3.3 g/dL (2-4); Glucose 70 mg/dL (70-100); Potassium 3.9 mmol/L (3.5-5.0); Sodium 140 mmol/L (135-145); Total Protein 8.3 g/dL (6.4-8.9)
[2019-09-07 10:52] LABS: Acetaminophen < 15 mcg/mL; Alcohol < 10 mg/dL (<10); Salicylate < 2.50 mg/dL (<30)
[2019-09-07 10:52] LABS: Urine Bacteria Absent (Absent); Urine Red Blood Cell Trace(0-2/hpf) (Absent); Urine White Blood Cell Trace(0-5/hpf) (Absent)
[2019-09-07 10:56] LABS: Urine Benzodiazepine Screen None Detected (None Detect); Urine Opiates Screen None Detected (None Detect)
[2019-09-07 11:52] LABS: HIV 4th Generation Nonreactive (Nonreactive)
[2019-09-07] MEDS ORDERED: Nicotine PATCH 21 MG/24 HR* PATCH TRANSDERM ONE (13:17)
--- NOTE | 2019-09-07 19:12 | ED ---
Progress - Progress Note Progress Note: Patient is received as a sign out from Dr. Haider at 1900 on 09/07/2019 shift change pending sobriety. Home Medications Medication Instructions Recorded Confirmed Type NK [No Home Medications Reported] 09/05/19 09/06/19 History 1947: patient is sober, alert and oriented x3. Patient is ready for discharge. Course/Dx - Course Course Of Treatment: Patient has been recieved as a sign out from Dr. Haider at 1900 on 09/07/2019 pending sobriety. At 1947 patient was observed to be sober and alert and oreinted x3. He was discharged to home with PCP followup. - Diagnoses Provider Diagnoses: Polysubstance abuse Discharge ED - Sign-Out/Discharge Documenting (check all that apply): Patient Departure - Discharge - Discharge Plan Condition: Stable Disposition: HOME Patient Education Materials: Polysubstance Abuse (ED) [facility]errals: [facility] [Outside] - 3 Days Additional Instructions: Please return to ED for new or worsening symptoms. Please follow up with your primary care physician within three days. - Billing Disposition and Condition Condition: STABLE Disposition: Home - Attestation Statements Document Initiated by Scribe: Yes Documenting Scribe: Sherie Thacker Provider For Whom Scribe is Documenting (Include Credential): Merrick Arroyo DO Scribe Attestation: Sherie Brunner, sandovalibed for Merrick Arroyo DO on at 0353. Scribe Documentation Reviewed: Yes Provider Attestation: The documentation as recorded by the shantanu, Sherie Thacker accurately reflects the service I personally performed and the decisions made by Merrick mayen DO Status of Scriblissy Document: Viewed
[2019-09-07 19:54] VITALS: BP 119/83
== END 2019-09-07 20:00 | disposition home or self-care (01) ==
LOC: ED 09:25
DX: F19.10 Other psychoactive substance abuse, uncomplicated (principal); I10 Essential (primary) hypertension; N17.9 Acute kidney failure, unspecified; F17.210 Nicotine dependence, cigarettes, uncomplicated
CPT/HCPCS: 36415; 80053; 80307; 80320; 80329; 81003; 81015; 82550; 83605; 85025; 87086; 87389; 96360; 99283; A9270-GY; G0480

== ENCOUNTER 2019-09-08 10:02 | Emergency (ER) | payer OTHER ==
--- NOTE | 2019-09-08 10:14 | ED ---
Substance Abuse/Use - HPI Summary HPI Summary: 29 y/o male presented to [facility] by [facility] after taking 64 tablets of Coricidin. Pt denies recent alcohol use or trauma. Per EMS, pt was calm upon EMS arrival to scene but after being picked up to be put into a stretcher threw himself onto the floor and began kicking and flailing. Pt was calm in the room. Medications reviewed. Allergies noted. Home Medications Medication Instructions Recorded Confirmed Type NK [No Home Medications Reported] 09/05/19 09/06/19 History - History Of Current Complaint Stated Complaint: OVERDOSE PER EMS Time Seen by Provider: 09/08/19 10:07 Hx Obtained From: Patient Overdose Characteristics: Oral Severity Currently: None Aggravating Factor(s): Nothing Alleviating Factor(s): Nothing Associated Signs And Symptoms: Hostile - Allergies/Home Medications Allergies/Adverse Reactions: Allergies Allergy/AdvReac Type Severity Reaction Status Date / Time No Known Allergies Allergy Verified 09/05/19 14:10 Home Medications: Home Medications NK [No Home Medications Reported] 09/05/19 [History Confirmed 09/08/19] PMH/Surg Hx/FS Hx/Imm Hx Endocrine/Hematology History: Reports: Hx Thyroid Disease - Hypothyroidism Denies: Hx Anticoagulant Therapy, Hx Blood Disorders, Hx Blood Transfusions, Hx Bone Marrow Disease, Hx Diabetes, Hx Systemic Lupus Erythematosus, Hx Sickle Cell Disease, Hx Anemia, Hx Unexplained Bleeding, Other Endocrine/Hematological Disorders Cardiovascular History: Reports: Hx Hypertension Denies: Hx Aneurysm, Hx Angina, Hx Angioplasty, Hx Auto Implanted Cardiovert Defib, Hx Cardiac Arrest, Hx Cardiomegaly, Hx Congenital Heart Disease, Hx Congestive Heart Failure, Hx Coronary Artery Disease, Hx Deep Vein Thrombosis, Hx Embolism, Hx Hypercholesterolemia, Hx Hypotension, Hx Pacemaker/ICD, Hx Peripheral Vascular Disease, Hx Rheumatic Fever, Hx Syncope, Hx Valvular Heart Disease, Other Cardiovascular Problems/Disorders Respiratory History: Reports: Hx Pneumonia, Hx Seasonal Allergies Denies: Hx Asthma, Hx Chronic Bronchitis, Hx Chronic Obstructive Pulmonary Disease (COPD), Hx Cystic Fibrosis, Hx Lung Cancer, Hx Pleural Effusion, Hx Pulmonary Edema, Hx Pulmonary Embolism, Hx Sleep Apnea, Other Respiratory Problems/Disorders GI History: Reports: Hx Ulcer Denies: Hx Cirrhosis, Hx Crohn's Disease, Hx Diverticulosis, Hx Gall Bladder Disease, Hx Gastroesophageal Reflux Disease, Hx Gastrointestinal Bleed, Hx Hiatal Hernia, Hx Irritable Bowel, Hx Jaundice, Hx Obstructive Bowel, Hx Ileostomy, Hx Pyloric Stenosis, Other GI Disorders History: Reports: Hx Acute Renal Failure Denies: Hx Benign Prostatic Hyperplasia, Hx Chronic Renal Failure, Hx Dialysis, Hx Kidney Infection, Hx Kidney Stones, Hx Renal Disease, Other Problems/Disorders Musculoskeletal History: Denies: Hx Arthritis, Hx Back Problems, Hx Bursitis, Hx Congenital Bone Abnormalities, Hx Fibromyalgia, Hx Gout, Hx Orthopedic Injury, Hx Osteoporosis, Hx Scoliosis, Hx Tendonitis, Other Musculoskeletal History Sensory History: Denies: Hx Cataracts, Hx Contacts or Glasses, Hx Eye Injury, Hx Eye Prosthesis, Hx Glaucoma, Hx Legally Blind, Hx Macular Degeneration, Hx Vision Problem, Hx Deafness, Hx Hearing Aid, Other Sensory Impairments Opthamlomology History: Denies: Hx Cataracts, Hx Contacts or Glasses, Hx Eye Injury, Hx Eye Prosthesis, Hx Glaucoma, Hx Legally Blind, Hx Macular Degeneration, Hx Vision Problem, Other Sensory Impairments Neurological History: Reports: Hx Headaches, Hx Seizures Denies: Hx Dementia, Hx Developmental Delay, Hx Migraine, Hx Nerve Disease, Hx Spinal Cord Injury, Hx Transient Ischemic Attacks (TIA), Other Neuro Impairments/Disorders Psychiatric History: Reports: Hx Anxiety, Hx Depression, Hx Post Traumatic Stress Disorder, Hx Inpatient Treatment, Hx Community Mental Health Tx, Hx Bipolar Disorder, Hx of Violent Episodes Against Others, Hx Substance Abuse, Other Psychiatric Issues/Disorders Denies: Hx Attention Deficit Hyperactivity Disorder, Hx Eating Disorder, Hx Panic Disorder, Hx Schizophrenia, Hx Suicide Attempt - Cancer History Cancer Type, Location and Year: None reported Hx Chemotherapy: No Hx Radiation Therapy: No - Surgical History Surgery Procedure, Year, and Place: none Hx Anesthesia Reactions: No - Immunization History Date of Tetanus Vaccine: Unknown Date of Influenza Vaccine: None Infectious Disease History: Reports: Hx Hepatitis - Hep C Denies: Hx Clostridium Difficile, Hx Human Immunodeficiency Virus (HIV), Hx of Known/Suspected MRSA, Hx Shingles, Hx Tuberculosis, Hx Known/Suspected VRE, Hx Known/Suspected VRSA, History Other Infectious Disease - Family History Known Family History: Positive: Other - cancer Negative: Renal Disease Family History: father - ETOH - Social History Alcohol Use: Daily Alcohol Amount: beers Hx Substance Use: Yes Substance Use Type: 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 Substance Use Comment - Amount & Last Used: Multiple Coricidin overdose Hx Tobacco Use: Yes Smoking Status (MU): Heavy Every Day Tobacco Smoker Type: Cigarettes Have You Smoked in the Last Year: Yes Review of Systems Negative: Fever - vitals show temp at 98.6F Musculoskeletal: Negative Psychological: Other - calm or hostile, see HPI All Other Systems Reviewed And Are Negative: Yes Physical Exam - Summary Physical Exam Summary: Constitutional: Well-developed, Well-nourished, Alert. (-) Distressed Skin: Warm, Dry HENT: Normocephalic; Atraumatic Eyes: Conjunctiva normal Neck: Musculoskeletal ROM normal neck. (-) JVD, (-) Stridor, (-) Tracheal deviation Cardio: Rhythm regular, rate normal, Heart sounds normal; Intact distal pulses; Radial pulses are 2+ and symmetric. (-) Murmur Pulmonary/Chest wall: Effort normal. (-) Respiratory distress, (-) Wheezes, (-) Rales Abd: Soft, (-) tenderness or trauma, (-) Distension, (-) Guarding, (-) Rebound Musculoskeletal: (-) Edema, no apparent trauma Lymph: (-) Cervical adenopathy Neuro: Alert, Oriented x3, Answers some questions appropriately Psych: Calm, Mood and affect Normal Triage Information Reviewed: Yes Vital Signs Reviewed: Yes Procedures - Sedation Patient Received Moderate/Deep Sedation with Procedure: No Diagnostics - Laboratory Result Diagrams: 09/08/19 10:20 09/08/19 10:20 Lab Statement: Any lab studies that have been ordered have been reviewed, and results considered in the medical decision making process. Re-Evaluation - Re-Evaluation First Eval Re-Evaluation Time: 11:15 Comment: Pt requested Ativan by name due to events going on in his life. Pt is also laughing loudly. Second Eval Re-Evaluation Time: 16:30 Comment: Pt ambulated without difficulty Course/Dx - Course Course Of Treatment: Patient is here after overdosing on Coricidin. Patient was tachycardic and received 2 L IV fluid with improvement in his heart rate. Patient had a toxicology workup which was unchanged from his baseline. Patient is monitored in place until ambulance safely. Patient was discharged with a taxi ride home. - Diagnoses Provider Diagnoses: Drug overdose, Tachycardia, Altered mental status Discharge ED - Sign-Out/Discharge Documenting (check all that apply): Patient Departure - dc - Discharge Plan Condition: Stable Disposition: HOME Patient Education Materials: Narcotic Safety (ED), Polysubstance Abuse (ED) Referrals: [facility] [Outside] Additional Instructions: Please return if you have any concerning symptoms - Billing Disposition and Condition Condition: STABLE Disposition: Home - Attestation Statements Document Initiated by Scribe: Yes Documenting Scribe: Tuan Vasquez Provider For Whom Scribe is Documenting (Include Credential): Marlon Wall Scribe Attestation: Tuan Brunner, scribed for Marlon Wall on 09/08/19 at 1910. Scribe Documentation Reviewed: Yes Provider Attestation: The documentation as recorded by the Tuan fournier accurately reflects the service I personally performed and the decisions made by Marlon mayen Status of Scribe Document: Viewed
[2019-09-08] MEDS ORDERED: NS 0.9% 1000 ML** 1,000 ML IV ONE ×2 (10:15→11:37)
[2019-09-08 10:30] LABS: ABS Basophils 0.1 10^3/ul (0-0.2); ABS Eosinophils 0.1 10^3/ul (0-0.6); ABS Lymphocytes 1.8 10^3/ul (1.0-4.8); Eosinophil % 0.8 %; Hematocrit 46 % (42-52); Hemoglobin 15.2 g/dL (14.0-18.0); Mean Corpuscular HGB Conc 33 g/dL (31-36); Mean Corpuscular Hemoglobin 30 pg (27-31); Mean Corpuscular Volume 89 fL (80-94); Mean Platelet Volume 7.8 fL (7.4-10.4); Nucleated Red Blood Cells % 0.1; Platelet Count 293 10^3/uL (150-450); Red Blood Count 5.14 10^6 /uL (4.18-5.48); Red Cell Distribution Width 16 % (10-15); White Blood Count 12.1 10^3/uL (3.5-10.8)
[2019-09-08 10:46] LABS: ALT 40 U/L (7-52); AST 27 U/L (13-39); Albumin 4.7 g/dL (3.2-5.2); Albumin/Globulin Ratio 1.5 (1-3); Alkaline Phosphatase 87 U/L (34-104); Anion Gap 14 mmol/L (2-11); BUN/Creatinine Ratio 8.7 (8-20); Blood Urea Nitrogen 11 mg/dL (6-24); CO2 Carbon Dioxide 21 mmol/L (22-32); Calcium 9.8 mg/dL (8.6-10.3); Chloride 103 mmol/L (101-111); Creatine Kinase 153 U/L (10-223); EGFR African American 81.1 (>60); Globulin 3.2 g/dL (2-4); Glucose 80 mg/dL (70-100); Potassium 3.6 mmol/L (3.5-5.0); Sodium 138 mmol/L (135-145); Total Protein 7.9 g/dL (6.4-8.9)
[2019-09-08] MEDS ORDERED: LORazepam INJ* 2 MG/ML 1 ML VIAL IV PUSH ONE (11:15)
[2019-09-08] MEDS ORDERED: Lorazepam PYXIS KEY PRN (11:15)
[2019-09-08] MEDS ORDERED: Lorazepam PYXIS KEY ONE (11:43)
[2019-09-08 12:01] LABS: Alcohol < 10 mg/dL (<10)
[2019-09-08 17:09] VITALS: BP 140/103
== END 2019-09-08 17:12 | disposition home or self-care (01) ==
LOC: ED 10:02
DX: T50.991A Poisoning by other drugs, medicaments and biological substances, accidental (unintentional), initial encounter (principal); R00.0 Tachycardia, unspecified; R41.82 Altered mental status, unspecified; E03.9 Hypothyroidism, unspecified; I10 Essential (primary) hypertension; N17.9 Acute kidney failure, unspecified; R51 Headache; F41.9 Anxiety disorder, unspecified; F32.9 Major depressive disorder, single episode, unspecified; F17.210 Nicotine dependence, cigarettes, uncomplicated; Y92.9 Unspecified place or not applicable
CPT/HCPCS: 36415; 80053; 80320; 82550; 85025; 99282; G0480; J2060

== ENCOUNTER 2019-09-10 14:31 | Emergency (ER) | payer OTHER ==
[2019-09-10 14:51] LABS: ABS Basophils 0.1 10^3/ul (0-0.2); ABS Eosinophils 0.2 10^3/ul (0-0.6); ABS Lymphocytes 2.9 10^3/ul (1.0-4.8); Eosinophil % 1.4 %; Hematocrit 44 % (42-52); Hemoglobin 14.6 g/dL (14.0-18.0); Mean Corpuscular HGB Conc 34 g/dL (31-36); Mean Corpuscular Hemoglobin 30 pg (27-31); Mean Corpuscular Volume 89 fL (80-94); Mean Platelet Volume 7.9 fL (7.4-10.4); Nucleated Red Blood Cells % 0.1; Platelet Count 298 10^3/uL (150-450); Red Blood Count 4.88 10^6 /uL (4.18-5.48); Red Cell Distribution Width 16 % (10-15); White Blood Count 12.1 10^3/uL (3.5-10.8)
[2019-09-10 14:56] LABS: INR 1.2 (0.82-1.09)
[2019-09-10 15:10] LABS: ALT 33 U/L (7-52); Albumin 4.3 g/dL (3.2-5.2); Albumin/Globulin Ratio 1.3 (1-3); Alkaline Phosphatase 71 U/L (34-104); BUN/Creatinine Ratio 10.2 (8-20); Blood Urea Nitrogen 10 mg/dL (6-24); CO2 Carbon Dioxide 19 mmol/L (22-32); Calcium 9.5 mg/dL (8.6-10.3); Chloride 104 mmol/L (101-111); EGFR African American 109.4 (>60); EGFR Non-African American 90.4 (>60); Globulin 3.3 g/dL (2-4); Glucose 100 mg/dL (70-100); Sodium 138 mmol/L (135-145); Total Protein 7.6 g/dL (6.4-8.9)
--- NOTE | 2019-09-10 15:13 | ED ---
HPI Chest Pain - HPI Summary HPI Summary: Patient is a 29yo M frequent visitor to the ED presenting to the ED with L sided chest sharpness after he inhaled while smoking a cigarette a few days ago. He denies any cough, congestion, fever. He denies any known sick contacts , however states he lives at a retirement. He denies any drug use 2 days. He states "I'm trying to get right and not use." He states when he is sober, he tends to be more concerned about his health. States he has lung CA in his family and this pain worried him. Denies any radiation of pain. No difficulty breathing or SOB. States sxs have remained constant since yesterday. Not worse with ambulation or exertion. No personal hx of cardiac disease, lung disease or CA. No abd pain, n/v/c/d. No neck pain, sore throat, visual changes. Hx of drug abuse daily. Hx of alcohol abuse. Smoker. - History of Current Complaint Chief Complaint: EDChestPainROMI Time Seen by Provider: 09/10/19 14:43 Hx Obtained From: Patient Onset/Duration: Started Days Ago Timing: Constant Initial Severity: Mild Current Severity: Mild Pain Intensity: 6 Pain Scale Used: 0-10 Numeric Chest Pain Location: Left Anterior Chest Pain Radiates: No Character: Dull/Aching Alleviating Factor(s): Nothing Associated Signs and Symptoms: Positive: Chest Pain. Negative: Recent Stress, Headaches, Numbness, Tingling, Weakness, Dizziness, Shortness of Breath, Lightheadedness, Diaphoresis, Nausea, Palpitations, Abdominal Pain, Calf Pain/ Swelling, Vomiting, Bloody Sputum, Wheezing, Nasal Congestion - Risk Factors Pulmonary Embolism Risk Factors: Negative TAD Risk Factors: Negative - Additional Pertinent History Primary Care Physician: [id number] - Allergy/Home Medications Allergies/Adverse Reactions: Allergies Allergy/AdvReac Type Severity Reaction Status Date / Time No Known Allergies Allergy Verified 09/05/19 14:10 Home Medications: Home Medications NK [No Home Medications Reported] 09/10/19 [History Confirmed 09/10/19] PMH/Surg Hx/FS Hx/Imm Hx Endocrine/Hematology History: Reports: Hx Thyroid Disease - Hypothyroidism Denies: Hx Anticoagulant Therapy, Hx Blood Disorders, Hx Blood Transfusions, Hx Bone Marrow Disease, Hx Diabetes, Hx Systemic Lupus Erythematosus, Hx Sickle Cell Disease, Hx Anemia, Hx Unexplained Bleeding, Other Endocrine/Hematological Disorders Cardiovascular History: Reports: Hx Hypertension Denies: Hx Aneurysm, Hx Angina, Hx Angioplasty, Hx Auto Implanted Cardiovert Defib, Hx Cardiac Arrest, Hx Cardiomegaly, Hx Congenital Heart Disease, Hx Congestive Heart Failure, Hx Coronary Artery Disease, Hx Deep Vein Thrombosis, Hx Embolism, Hx Hypercholesterolemia, Hx Hypotension, Hx Pacemaker/ICD, Hx Peripheral Vascular Disease, Hx Rheumatic Fever, Hx Syncope, Hx Valvular Heart Disease, Other Cardiovascular Problems/Disorders Respiratory History: Reports: Hx Pneumonia, Hx Seasonal Allergies Denies: Hx Asthma, Hx Chronic Bronchitis, Hx Chronic Obstructive Pulmonary Disease (COPD), Hx Cystic Fibrosis, Hx Lung Cancer, Hx Pleural Effusion, Hx Pulmonary Edema, Hx Pulmonary Embolism, Hx Sleep Apnea, Other Respiratory Problems/Disorders GI History: Reports: Hx Ulcer Denies: Hx Cirrhosis, Hx Crohn's Disease, Hx Diverticulosis, Hx Gall Bladder Disease, Hx Gastroesophageal Reflux Disease, Hx Gastrointestinal Bleed, Hx Hiatal Hernia, Hx Irritable Bowel, Hx Jaundice, Hx Obstructive Bowel, Hx Ileostomy, Hx Pyloric Stenosis, Other GI Disorders History: Reports: Hx Acute Renal Failure Denies: Hx Benign Prostatic Hyperplasia, Hx Chronic Renal Failure, Hx Dialysis, Hx Kidney Infection, Hx Kidney Stones, Hx Renal Disease, Other Problems/Disorders Musculoskeletal History: Denies: Hx Arthritis, Hx Back Problems, Hx Bursitis, Hx Congenital Bone Abnormalities, Hx Fibromyalgia, Hx Gout, Hx Orthopedic Injury, Hx Osteoporosis, Hx Scoliosis, Hx Tendonitis, Other Musculoskeletal History Sensory History: Denies: Hx Cataracts, Hx Contacts or Glasses, Hx Eye Injury, Hx Eye Prosthesis, Hx Glaucoma, Hx Legally Blind, Hx Macular Degeneration, Hx Vision Problem, Hx Deafness, Hx Hearing Aid, Other Sensory Impairments Opthamlomology History: Denies: Hx Cataracts, Hx Contacts or Glasses, Hx Eye Injury, Hx Eye Prosthesis, Hx Glaucoma, Hx Legally Blind, Hx Macular Degeneration, Hx Vision Problem, Other Sensory Impairments Neurological History: Reports: Hx Headaches, Hx Seizures Denies: Hx Dementia, Hx Developmental Delay, Hx Migraine, Hx Nerve Disease, Hx Spinal Cord Injury, Hx Transient Ischemic Attacks (TIA), Other Neuro Impairments/Disorders Psychiatric History: Reports: Hx Anxiety, Hx Depression, Hx Post Traumatic Stress Disorder, Hx Inpatient Treatment, Hx Community Mental Health Tx, Hx Bipolar Disorder, Hx of Violent Episodes Against Others, Hx Substance Abuse, Other Psychiatric Issues/Disorders Denies: Hx Attention Deficit Hyperactivity Disorder, Hx Eating Disorder, Hx Panic Disorder, Hx Schizophrenia, Hx Suicide Attempt - Cancer History Cancer Type, Location and Year: None reported Hx Chemotherapy: No Hx Radiation Therapy: No - Surgical History Surgery Procedure, Year, and Place: none Hx Anesthesia Reactions: No - Immunization History Date of Tetanus Vaccine: Unknown Date of Influenza Vaccine: None Infectious Disease History: No Infectious Disease History: Reports: Hx Hepatitis - Hep C Denies: Hx Clostridium Difficile, Hx Human Immunodeficiency Virus (HIV), Hx of Known/Suspected MRSA, Hx Shingles, Hx Tuberculosis, Hx Known/Suspected VRE, Hx Known/Suspected VRSA, History Other Infectious Disease, Traveled Outside the [place] in Last 30 Days - Family History Known Family History: Positive: Other - cancer Negative: Renal Disease Family History: father - ETOH - Social History Alcohol Use: Daily Alcohol Amount: beers Hx Substance Use: Yes Substance Use Type: 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 Substance Use Comment - Amount & Last Used: Multiple Coricidin overdose Hx Tobacco Use: Yes Smoking Status (MU): Heavy Every Day Tobacco Smoker Type: Cigarettes Have You Smoked in the Last Year: Yes Review of Systems Negative: Fever, Chills, Fatigue, Skin Diaphoresis Negative: Dental Pain, Sore Throat Positive: Chest Pain - left anterior Negative: Shortness Of Breath, Cough Genitourinary: Negative Positive: no symptoms reported, see HPI Negative: Rash, Bruising Neurological/Mental Status: Negative All Other Systems Reviewed And Are Negative: Yes Physical Exam Triage Information Reviewed: Yes Vital Signs On Initial Exam: Initial Vitals Temp Pulse Resp BP Pulse Ox 97.3 F 160 19 00/ 97 09/10/19 14:32 09/10/19 14:32 09/10/19 14:32 09/10/19 14:32 09/10/19 14:32 Vital Signs Reviewed: Yes Appearance: Positive: Well-Appearing, Well-Nourished Skin: Positive: Warm, Skin Color Reflects Adequate Perfusion Head/Face: Positive: Normal Head/Face Inspection Eyes: Positive: EOMI, CHANDRIKA, Conjunctiva Clear Neck: Positive: Supple, No Lymphadenopathy Respiratory/Lung Sounds: Positive: Clear to Auscultation, Breath Sounds Present Cardiovascular: Positive: RRR, Pulses are Symmetrical in both Upper and Lower Extremities Musculoskeletal: Positive: Normal, Strength/ROM Intact Neurological: Positive: Speech Normal Psychiatric: Positive: Normal, Affect/Mood Appropriate AVPU Assessment: Alert Procedures - Sedation Patient Received Moderate/Deep Sedation with Procedure: No Diagnostics - Vital Signs Vital Signs Temp Pulse Resp BP Pulse Ox 09/10/19 14:32 97.3 F 160 19 00/ 97 - Laboratory Lab Results: Lab Results 09/10/19 09/10/19 Range/Units 14:39 14:39 WBC 12.1 H (3.5-10.8) 10^3/uL RBC 4.88 (4.18-5.48) 10^6 /uL Hgb 14.6 (14.0-18.0) g/dL Hct 44 (42-52) % MCV 89 (80-94) fL MCH 30 (27-31) pg MCHC 34 (31-36) g/dL RDW 16 H (10-15) % Plt Count 298 (150-450) 10^3/uL MPV 7.9 (7.4-10.4) fL Neut % (Auto) 65.8 % Lymph % (Auto) 24.0 % Otero % (Auto) 7.9 % Eos % (Auto) 1.4 % Baso % (Auto) 0.9 % Absolute Neuts (auto) 8.0 H (1.5-7.7) 10^3/ul Absolute Lymphs (auto) 2.9 (1.0-4.8) 10^3/ul Absolute Monos (auto) 1.0 H (0-0.8) 10^3/ul Absolute Eos (auto) 0.2 (0-0.6) 10^3/ul Absolute Basos (auto) 0.1 (0-0.2) 10^3/ul Absolute Nucleated RBC 0.0 10^3/ul Nucleated RBC % 0.1 INR (Anticoag Therapy) 1.20 H (0.82-1.09) Result Diagrams: 09/10/19 14:39 09/10/19 14:39 Lab Statement: Any lab studies that have been ordered have been reviewed, and results considered in the medical decision making process. Chest Pain Course/Dx - Course Course Of Treatment: During his course of treatment, the patient is evaluated for left-sided anterior chest pressure. Symptoms are slightly worse with palpation, better with rest. He denies any difficulty with breathing or shortness of breath. He denies any feelings of heart racing, nausea, vomiting or other symptoms. Denies any cough or congestion. Has been denying any fevers. Vital signs obtained, shows he is slightly tachycardic which is usually at his baseline. He is afebrile and other vital signs are stable. Lungs CTA. Patient appears well. Nondiaphoretic and nontoxic in appearing. Does not appear to be in any respiratory distress. Labs obtained: WNL except for elevated CK 474. WBC at 12K. Repleated fluids. Chest x-ray obtained: No acute findings. Pulse 160 on arrival, this likely in error. EKG shows 102 rate at NSR. Pt OK for DC and states he feels improved. - Chest Pain Differential Diagnosis/HQI/PQRI: Chest Wall, Other: - angina, anxiety - Diagnoses Provider Diagnoses: Chest pain Discharge ED - Sign-Out/Discharge Documenting (check all that apply): Patient Departure - Discharge Plan Condition: Stable Disposition: HOME Referrals: No Primary Care Phys,NOPCP [Primary Care Provider] - Additional Instructions: Please return to the ED with any worsening or changing symptoms - Billing Disposition and Condition Condition: STABLE Disposition: Home - Attestation Statements Provider Attestation: I was available for consult. This patient was seen by the CHANTELLE. The patient was not presented to, seen by, or examined by me. Marlon Wall MD
[2019-09-10 15:22] LABS: Creatine Kinase 474 U/L (10-223)
[2019-09-10 15:38] LABS: Anion Gap 15 mmol/L (2-11)
[2019-09-10] MEDS ORDERED: NS 0.9% 1000 ML** 1,000 ML IV ONE (15:40)
[2019-09-10 16:49] VITALS: BP 115/79
== END 2019-09-10 16:48 | disposition home or self-care (01) ==
LOC: ED 14:31
DX: R07.9 Chest pain, unspecified (principal); E03.9 Hypothyroidism, unspecified; I10 Essential (primary) hypertension; F41.9 Anxiety disorder, unspecified; F32.9 Major depressive disorder, single episode, unspecified; F43.10 Post-traumatic stress disorder, unspecified; F17.210 Nicotine dependence, cigarettes, uncomplicated
CPT/HCPCS: 36415; 71046; 80053; 82550; 84484; 85025; 85610; 93005; 96360; 99282

== ENCOUNTER 2019-09-11 21:37 | Emergency (ER) | payer OTHER ==
--- NOTE | 2019-09-11 22:10 | ED ---
Substance Abuse/Use - HPI Summary HPI Summary: Patient is a 29 year-old male arriving via ambulance to [facility] with a chief complaint of overdose on Coricidin tablets tonight. He reports taking 64 pills of Coricidin resulting in him calling EMS. He states that he took the pills because he wanted to get high, but I dont think my body is metastasizing it. He reports that he feels weak now. He is not in any pain. Patient has multiple episodes of same presentation. Past medical history includes hypothyroidism, hypertension, acute renal failure, seizures, anxiety, depression, PTSD, inpatient treatment, outpatient therapy, bipolar disorder, Hepatitis C. Current smoker, daily EtOH, Coricidin abuse. Medications reviewed. Allergies noted. - History Of Current Complaint Chief Complaint: EDSubstanceAbuse Stated Complaint: OVERDOSE PER EMS Time Seen by Provider: 09/11/19 21:41 Hx Obtained From: Patient Onset/Duration of Drug/ETOH Abuse: Years Ingestion History: Type/Name Of Drug - Coricidin, Amount Ingested - 64 tablets Overdose Characteristics: Oral Timing Of Abuse: Daily Severity Currently: Moderate Aggravating Factor(s): Nothing Alleviating Factor(s): Nothing Associated Signs And Symptoms: Other: - weakness - Allergies/Home Medications Allergies/Adverse Reactions: Allergies Allergy/AdvReac Type Severity Reaction Status Date / Time No Known Allergies Allergy Verified 09/12/19 08:21 Home Medications: Home Medications NK [No Home Medications Reported] 09/12/19 [History Confirmed 09/12/19] PMH/Surg Hx/FS Hx/Imm Hx Endocrine/Hematology History: Reports: Hx Thyroid Disease - Hypothyroidism Denies: Hx Anticoagulant Therapy, Hx Blood Disorders, Hx Blood Transfusions, Hx Bone Marrow Disease, Hx Diabetes, Hx Systemic Lupus Erythematosus, Hx Sickle Cell Disease, Hx Anemia, Hx Unexplained Bleeding, Other Endocrine/Hematological Disorders Cardiovascular History: Reports: Hx Hypertension Denies: Hx Aneurysm, Hx Angina, Hx Angioplasty, Hx Auto Implanted Cardiovert Defib, Hx Cardiac Arrest, Hx Cardiomegaly, Hx Congenital Heart Disease, Hx Congestive Heart Failure, Hx Coronary Artery Disease, Hx Deep Vein Thrombosis, Hx Embolism, Hx Hypercholesterolemia, Hx Hypotension, Hx Pacemaker/ICD, Hx Peripheral Vascular Disease, Hx Rheumatic Fever, Hx Syncope, Hx Valvular Heart Disease, Other Cardiovascular Problems/Disorders Respiratory History: Reports: Hx Pneumonia, Hx Seasonal Allergies Denies: Hx Asthma, Hx Chronic Bronchitis, Hx Chronic Obstructive Pulmonary Disease (COPD), Hx Cystic Fibrosis, Hx Lung Cancer, Hx Pleural Effusion, Hx Pulmonary Edema, Hx Pulmonary Embolism, Hx Sleep Apnea, Other Respiratory Problems/Disorders GI History: Reports: Hx Ulcer Denies: Hx Cirrhosis, Hx Crohn's Disease, Hx Diverticulosis, Hx Gall Bladder Disease, Hx Gastroesophageal Reflux Disease, Hx Gastrointestinal Bleed, Hx Hiatal Hernia, Hx Irritable Bowel, Hx Jaundice, Hx Obstructive Bowel, Hx Ileostomy, Hx Pyloric Stenosis, Other GI Disorders History: Reports: Hx Acute Renal Failure Denies: Hx Benign Prostatic Hyperplasia, Hx Chronic Renal Failure, Hx Dialysis, Hx Kidney Infection, Hx Kidney Stones, Hx Renal Disease, Other Problems/Disorders Musculoskeletal History: Denies: Hx Arthritis, Hx Back Problems, Hx Bursitis, Hx Congenital Bone Abnormalities, Hx Fibromyalgia, Hx Gout, Hx Orthopedic Injury, Hx Osteoporosis, Hx Scoliosis, Hx Tendonitis, Other Musculoskeletal History Sensory History: Denies: Hx Cataracts, Hx Contacts or Glasses, Hx Eye Injury, Hx Eye Prosthesis, Hx Glaucoma, Hx Legally Blind, Hx Macular Degeneration, Hx Vision Problem, Hx Deafness, Hx Hearing Aid, Other Sensory Impairments Opthamlomology History: Denies: Hx Cataracts, Hx Contacts or Glasses, Hx Eye Injury, Hx Eye Prosthesis, Hx Glaucoma, Hx Legally Blind, Hx Macular Degeneration, Hx Vision Problem, Other Sensory Impairments Neurological History: Reports: Hx Headaches, Hx Seizures Denies: Hx Dementia, Hx Developmental Delay, Hx Migraine, Hx Nerve Disease, Hx Spinal Cord Injury, Hx Transient Ischemic Attacks (TIA), Other Neuro Impairments/Disorders Psychiatric History: Reports: Hx Anxiety, Hx Depression, Hx Post Traumatic Stress Disorder, Hx Inpatient Treatment, Hx Community Mental Health Tx, Hx Bipolar Disorder, Hx of Violent Episodes Against Others, Hx Substance Abuse, Other Psychiatric Issues/Disorders Denies: Hx Attention Deficit Hyperactivity Disorder, Hx Eating Disorder, Hx Panic Disorder, Hx Schizophrenia, Hx Suicide Attempt - Cancer History Cancer Type, Location and Year: None reported Hx Chemotherapy: No Hx Radiation Therapy: No - Surgical History Surgical History: None Surgery Procedure, Year, and Place: none Hx Anesthesia Reactions: No - Immunization History Date of Tetanus Vaccine: Unknown Date of Influenza Vaccine: None Infectious Disease History: No Infectious Disease History: Reports: Hx Hepatitis - Hep C Denies: Hx Clostridium Difficile, Hx Human Immunodeficiency Virus (HIV), Hx of Known/Suspected MRSA, Hx Shingles, Hx Tuberculosis, Hx Known/Suspected VRE, Hx Known/Suspected VRSA, History Other Infectious Disease, Traveled Outside the [place] in Last 30 Days - Family History Known Family History: Positive: Other - cancer Negative: Renal Disease Family History: father - ETOH - Social History Alcohol Use: Daily Alcohol Amount: beers Hx Substance Use: Yes Substance Use Type: 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 Substance Use Comment - Amount & Last Used: Multiple Coricidin overdose Hx Tobacco Use: Yes Smoking Status (MU): Heavy Every Day Tobacco Smoker Type: Cigarettes Have You Smoked in the Last Year: Yes - Additional Comments History Additional Comments: hypothyroidism, hypertension, acute renal failure, seizures, anxiety, depression , PTSD, inpatient treatment, outpatient therapy, bipolar disorder, Hepatitis C, current smoker, Coricidin abuse Review of Systems - ROS Summary Review of Systems Summary: Home Medications Medication Instructions Recorded Confirmed Type NK [No Home Medications Reported] 09/10/19 09/11/19 History Positive: Other - weakness Positive: Other - substance use - Coricidin 64 tabs All Other Systems Reviewed And Are Negative: Yes Physical Exam - Summary Physical Exam Summary: General: Well-developed, Well-nourished male. Slow to respond. Quiet voice, distant. Affect is odd. No acute distress. HEENT: Normocephalic, Atraumatic. Eyes: Conjuctiva normal, PERRL. Oropharynx: Clear, mucous membranes moist, (-) exudates. Neck: Soft, FROM, (-) lymphadenopathy, (-) thyromegaly, (-) JVD. Cardiovascular: Normal sinus rhythm, (-) murmur. Lungs: Clear to auscultation bilaterally (-) wheezes, (-) rales, (-) rhonchi. Abdomen: Soft, non-tender, non-distended, (-) organomegaly, normal bowel sounds. Back: (-) CVA tenderness Extremities: No edema. Skin: Warm, dry, (-) rash. Neuro: Alert and oriented x3, moves all extremities equally. No ataxia. No gait disturbance. No sensory deficit. Normal strength, normal sensation. Psychiatric: Unable to assess. Triage Information Reviewed: Yes Vital Signs On Initial Exam: Initial Vitals Temp Pulse Resp BP Pulse Ox 98.3 F 96 16 150/111 98 09/11/19 21:38 09/11/19 21:38 09/11/19 21:38 09/11/19 21:38 09/11/19 21:38 Vital Signs Reviewed: Yes Procedures - Sedation Patient Received Moderate/Deep Sedation with Procedure: No Diagnostics - Vital Signs Vital Signs Temp Pulse Resp BP Pulse Ox 09/11/19 21:38 98.3 F 96 16 150/111 98 - Laboratory Result Diagrams: 09/11/19 22:06 09/11/19 22:06 Lab Statement: Any lab studies that have been ordered have been reviewed, and results considered in the medical decision making process. - EKG 2212 Cardiac Rate: NL - 99 BPM EKG Rhythm: Sinus Rhythm Summary of EKG Findings: EKG at 2212 reveals normal sinus rhythm with rate of 99 BPM, no acute changes, no ischemic changes. This EKG was reviewed and interpreted by Dr. Blanco. Re-Evaluation - Re-Evaluation First Eval Re-Evaluation Time: 03:40 Comment: Patient is safe for discharge following 6 hour observation. Discussed symptoms warranting return to the the ED. Course/Dx - Course Course Of Treatment: 29-year-old male presents with overdose. Patient well- known to our emergency room here. Tonight he ingested 64 tablets of Coricidin. He states he did it to get high. No suicidal ideation. He states he didn't get high and said he feels like something is wrong. Describes a weakness. No pain. Vital signs are stable. Patient has an odd affect but physical otherwise within normal limits. Workup essentially negative. Per poison control patient is given IV fluids. Monitored for 6 hours. Patient is alert and oriented and feeling better at that time and is discharged home. Follow up with PCP. Follow up sooner for any worsening symptoms. - Diagnoses Provider Diagnoses: Tobacco use, Overdose, Drug use - Physician Notifications Discussed Care Of Patient With: Poison Control Time Discussed With Above Provider: 22:30 Instructed by Provider To: Other - Nurse Mcadams reports speaking with Poison Control, who recommends benzodiazepines for agitation, activated charcoal as needed, IV fluids for tachycardia, and observation for 6 hours. Discharge ED - Sign-Out/Discharge Documenting (check all that apply): Patient Departure - Patient will be discharged home. - Discharge Plan Condition: Stable Disposition: HOME Patient Education Materials: How to Stop Smoking (ED), Adult Overdose (ED) Referrals: [facility] [Outside] - 3 Days Additional Instructions: Follow up with your primary care provider in 2-3 days. Return to the emergency department for any new or worsening symptoms. - Billing Disposition and Condition Condition: STABLE Disposition: Home - Attestation Statements Document Initiated by Mario: Yes Documenting Scribe: Nat Ibrahim Provider For Whom Mario is Documenting (Include Credential): Iris Blanco MD Scribe Attestation: Nat Brunner, scribed for Iris Blanco MD on 09/13/19 at 2058. Scribe Documentation Reviewed: Yes Provider Attestation: The documentation as recorded by the Nat fournier accurately reflects the service I personally performed and the decisions made by me, Iris Blanco MD Status of Scribe Document: Viewed
[2019-09-11 22:14] LABS: ABS Basophils 0.1 10^3/ul (0-0.2); ABS Eosinophils 0.2 10^3/ul (0-0.6); ABS Lymphocytes 3.2 10^3/ul (1.0-4.8); ABS Monocytes 0.8 10^3/ul (0-0.8); ABS Neutrophils 5.7 10^3/ul (1.5-7.7); Eosinophil % 1.8 %; Hematocrit 41 % (42-52); Lymphocyte % 32.1 %; Mean Corpuscular HGB Conc 34 g/dL (31-36); Mean Corpuscular Hemoglobin 30 pg (27-31); Mean Corpuscular Volume 88 fL (80-94); Mean Platelet Volume 8.1 fL (7.4-10.4); Nucleated Red Blood Cells % 0.1; Platelet Count 253 10^3/uL (150-450); Red Blood Count 4.68 10^6 /uL (4.18-5.48); Red Cell Distribution Width 16 % (10-15)
[2019-09-11 22:42] LABS: ALT 34 U/L (7-52); AST 30 U/L (13-39); Albumin/Globulin Ratio 1.3 (1-3); Alkaline Phosphatase 59 U/L (34-104); Anion Gap 6 mmol/L (2-11); BUN/Creatinine Ratio 18.1 (8-20); Blood Urea Nitrogen 15 mg/dL (6-24); CO2 Carbon Dioxide 25 mmol/L (22-32); Calcium 9.6 mg/dL (8.6-10.3); Chloride 106 mmol/L (101-111); EGFR African American 132.5 (>60); EGFR Non-African American 109.5 (>60); Globulin 3.1 g/dL (2-4); Glucose 81 mg/dL (70-100); Potassium 4.1 mmol/L (3.5-5.0); Sodium 137 mmol/L (135-145); Total Protein 7.1 g/dL (6.4-8.9)
[2019-09-11 22:52] LABS: Urine Appearance Clear; Urine Bilirubin Negative (Negative); Urine Blood Negative (Negative); Urine Color Straw; Urine Glucose Negative (Negative); Urine Ketones Negative (Negative); Urine Nitrite Negative (Negative); Urine Protein Negative (Negative); Urine Specific Gravity 1.005 (1.010-1.030); Urine Urobilinogen Negative (Negative)
[2019-09-11 23:13] LABS: Urine Benzodiazepine Screen None Detected (None Detect); Urine Opiates Screen None Detected (None Detect)
[2019-09-12 00:03] LABS: Acetaminophen < 15 mcg/mL; Alcohol < 10 mg/dL (<10); Salicylate < 2.50 mg/dL (<30)
[2019-09-12 03:42] VITALS: BP 157/110
== END 2019-09-12 04:09 | disposition home or self-care (01) ==
LOC: ED 21:37
DX: T65.891A Toxic effect of other specified substances, accidental (unintentional), initial encounter (principal); R53.1 Weakness; F17.210 Nicotine dependence, cigarettes, uncomplicated; E03.9 Hypothyroidism, unspecified; I10 Essential (primary) hypertension; F41.9 Anxiety disorder, unspecified; F32.9 Major depressive disorder, single episode, unspecified; Y92.9 Unspecified place or not applicable
CPT/HCPCS: 36415; 80053; 80307; 80320; 80329; 81003; 83605; 85025; 93005; 99283; G0480

== ENCOUNTER 2019-09-12 08:15 | Inpatient (IN) ==
[2019-09-12 08:46] LABS: ABS Basophils 0.1 10^3/ul (0-0.2); ABS Lymphocytes 2.5 10^3/ul (1.0-4.8); ABS Monocytes 0.7 10^3/ul (0-0.8); Eosinophil % 0.2 %; Hematocrit 45 % (42-52); Lymphocyte % 18.5 %; Mean Corpuscular HGB Conc 34 g/dL (31-36); Mean Corpuscular Hemoglobin 30 pg (27-31); Mean Corpuscular Volume 89 fL (80-94); Mean Platelet Volume 8.1 fL (7.4-10.4); Platelet Count 284 10^3/uL (150-450); Red Blood Count 5.05 10^6 /uL (4.18-5.48); Red Cell Distribution Width 16 % (10-15); White Blood Count 13.4 10^3/uL (3.5-10.8)
[2019-09-12 09:00] LABS: ALT 35 U/L (7-52); AST 28 U/L (13-39); Albumin 4.7 g/dL (3.2-5.2); Albumin/Globulin Ratio 1.3 (1-3); Alkaline Phosphatase 76 U/L (34-104); Anion Gap 8 mmol/L (2-11); BUN/Creatinine Ratio 13.1 (8-20); Blood Urea Nitrogen 13 mg/dL (6-24); CO2 Carbon Dioxide 26 mmol/L (22-32); Calcium 9.9 mg/dL (8.6-10.3); Chloride 103 mmol/L (101-111); EGFR African American 108.1 (>60); EGFR Non-African American 89.4 (>60); Globulin 3.6 g/dL (2-4); Glucose 124 mg/dL (70-100); Potassium 3.6 mmol/L (3.5-5.0); Sodium 137 mmol/L (135-145); Total Protein 8.3 g/dL (6.4-8.9)
[2019-09-12 09:14] LABS: Urine Appearance Clear; Urine Bilirubin Negative (Negative); Urine Blood Negative (Negative); Urine Color Yellow; Urine Glucose Negative (Negative); Urine Ketones Negative (Negative); Urine Nitrite Negative (Negative); Urine Protein Negative (Negative); Urine Specific Gravity 1.011 (1.010-1.030); Urine Urobilinogen Negative (Negative)
[2019-09-12 09:21] LABS: Urine Benzodiazepine Screen None Detected (None Detect); Urine Opiates Screen None Detected (None Detect)
[2019-09-12] MEDS ORDERED: Nicotine PATCH 14 MG/24 HR PATCH TRANSDERM ONE (09:25)
[2019-09-12 09:32] LABS: Creatine Kinase 181 U/L (10-223)
[2019-09-12 09:53] LABS: Acetaminophen < 15 mcg/mL; Alcohol, S < 10 mg/dL (<10); Salicylate < 2.50 mg/dL (<30)
[2019-09-12 10:09] LABS: TSH (Thyroid Stimulating Horm) 7.97 mcIU/mL (0.34-5.60)
[2019-09-12] MEDS ORDERED: Al Hydrox/Mg Hydrox/Simet LIQ 30 ML UDC PO PRN (10:34)
[2019-09-12] MEDS ORDERED: Nicotine PATCH 14 MG/24 HR PATCH TRANSDERM SCH (13:00)
[2019-09-12] MEDS: Nicotine PATCH 14 MG/24 HR PATCH TRANSDERM SCH (14:45)
[2019-09-13] MEDS: Nicotine PATCH 14 MG/24 HR PATCH TRANSDERM SCH (07:49)
[2019-09-13 09:26] LABS: HDL Cholesterol 51.5 mg/dL
[2019-09-13] MEDS: Nicotine GUM 2MG FRUIT FLAVOR PO PRN (17:38)
[2019-09-14] MEDS: Nicotine PATCH 14 MG/24 HR PATCH TRANSDERM SCH (08:02)
[2019-09-14] MEDS: Nicotine GUM 2MG FRUIT FLAVOR PO PRN ×2 (12:29→15:14)
[2019-09-15] MEDS: Nicotine PATCH 14 MG/24 HR PATCH TRANSDERM SCH (08:05)
[2019-09-15] MEDS: Nicotine GUM 2MG FRUIT FLAVOR PO PRN (13:02)
[2019-09-16] MEDS: Nicotine GUM 2MG FRUIT FLAVOR PO PRN ×3 (05:05→15:28)
[2019-09-16] MEDS: Nicotine PATCH 14 MG/24 HR PATCH TRANSDERM SCH ×2 (05:05→10:01)
[2019-09-17] MEDS: Nicotine PATCH 14 MG/24 HR PATCH TRANSDERM SCH ×2 (06:05→13:35)
[2019-09-17 12:05] LABS: Albumin 4.4 g/dL (3.2-5.2); Albumin/Globulin Ratio 1.3 (1-3); BUN/Creatinine Ratio 20.3 (8-20); Calcium 9.8 mg/dL (8.6-10.3); EGFR African American 140.3 (>60); Globulin 3.3 g/dL (2-4); Potassium 3.8 mmol/L (3.5-5.0); Total Bilirubin 0.2 mg/dL (0.2-1.0); Total Protein 7.7 g/dL (6.4-8.9)
[2019-09-17] MEDS: Nicotine GUM 2MG FRUIT FLAVOR PO PRN ×2 (12:17→17:56)
[2019-09-17] MEDS ORDERED: Nicotine PATCH 14 MG/24 HR PATCH TRANSDERM ONE (12:30)
[2019-09-17 12:41] LABS: HIV 4th Generation Nonreactive (Nonreactive)
[2019-09-18] MEDS: Nicotine PATCH 14 MG/24 HR PATCH TRANSDERM SCH ×3 (05:03→13:54)
[2019-09-18] MEDS: Nicotine GUM 2MG FRUIT FLAVOR PO PRN ×2 (10:50→17:52)
[2019-09-19] MEDS: Nicotine PATCH 14 MG/24 HR PATCH TRANSDERM SCH ×2 (04:53→07:22)
[2019-09-19] MEDS: Nicotine GUM 2MG FRUIT FLAVOR PO PRN (09:01)
[2019-09-19] MEDS ORDERED: Naltrexone INJ 380 MG IM ONE (09:50)
[2019-09-20] MEDS: Nicotine PATCH 14 MG/24 HR PATCH TRANSDERM SCH ×3 (05:05→13:37)
[2019-09-20] MEDS: Nicotine GUM 2MG FRUIT FLAVOR PO PRN ×2 (11:01→18:02)
[2019-09-20] MEDS ORDERED: Nicotine PATCH 21 MG/24 HR PATCH TRANSDERM ONE (14:02)
[2019-09-21] MEDS: Nicotine PATCH 14 MG/24 HR PATCH TRANSDERM SCH ×2 (05:15→11:18)
[2019-09-21] MEDS: Nicotine GUM 2MG FRUIT FLAVOR PO PRN ×2 (11:12→16:00)
[2019-09-22] MEDS: Nicotine PATCH 14 MG/24 HR PATCH TRANSDERM SCH ×2 (05:14→07:26)
[2019-09-22] MEDS: Nicotine GUM 2MG FRUIT FLAVOR PO PRN ×3 (10:35→14:57)
[2019-09-23] MEDS: Nicotine PATCH 14 MG/24 HR PATCH TRANSDERM SCH ×2 (05:39→09:14)
[2019-09-23] MEDS ORDERED: Paliperidone SUSTENNA 156 MG/1 ML IM ONE (09:00)
[2019-09-23] MEDS ORDERED: Nicotine PATCH 14 MG/24 HR PATCH TRANSDERM ONE (13:09)
[2019-09-24] MEDS: Nicotine PATCH 14 MG/24 HR PATCH TRANSDERM SCH ×2 (04:55→06:12)
[2019-09-24] MEDS: Nicotine GUM 2MG FRUIT FLAVOR PO PRN (17:24)
[2019-09-25] MEDS: Nicotine PATCH 14 MG/24 HR PATCH TRANSDERM SCH (05:29)
[2019-09-25] MEDS: Nicotine GUM 2MG FRUIT FLAVOR PO PRN (12:07)
[2019-09-26] MEDS: Nicotine PATCH 14 MG/24 HR PATCH TRANSDERM SCH (05:04)
[2019-09-27] MEDS: Nicotine PATCH 14 MG/24 HR PATCH TRANSDERM SCH (04:46)
[2019-09-27] MEDS: Nicotine GUM 2MG FRUIT FLAVOR PO PRN (16:04)
[2019-09-28] MEDS: Nicotine PATCH 14 MG/24 HR PATCH TRANSDERM SCH (04:33)
[2019-09-29] MEDS: Nicotine PATCH 14 MG/24 HR PATCH TRANSDERM SCH (05:36)
[2019-09-30] MEDS: Nicotine PATCH 14 MG/24 HR PATCH TRANSDERM SCH (06:00)
[2019-10-01] MEDS: Nicotine PATCH 14 MG/24 HR PATCH TRANSDERM SCH (04:56)
[2019-10-01] MEDS: Nicotine GUM 2MG FRUIT FLAVOR PO PRN (12:31)
[2019-10-01] MEDS ORDERED: Nicotine PATCH 14 MG/24 HR PATCH TRANSDERM ONE (15:00)
[2019-10-02] MEDS: Nicotine PATCH 14 MG/24 HR PATCH TRANSDERM SCH (05:25)
[2019-10-03] MEDS: Nicotine PATCH 14 MG/24 HR PATCH TRANSDERM SCH (05:55)
[2019-10-03] MEDS: Nicotine GUM 2MG FRUIT FLAVOR PO PRN (16:04)
[2019-10-04] MEDS: Nicotine PATCH 14 MG/24 HR PATCH TRANSDERM SCH (05:52)
[2019-10-05] MEDS: Nicotine PATCH 14 MG/24 HR PATCH TRANSDERM SCH (05:34)
[2019-10-05] MEDS: Nicotine GUM 2MG FRUIT FLAVOR PO PRN (12:12)
[2019-10-06] MEDS: Nicotine PATCH 14 MG/24 HR PATCH TRANSDERM SCH (05:51)
[2019-10-07] MEDS: Nicotine PATCH 14 MG/24 HR PATCH TRANSDERM SCH (05:21)
[2019-10-08] MEDS: Nicotine PATCH 14 MG/24 HR PATCH TRANSDERM SCH (05:25)
[2019-10-08] MEDS: Nicotine GUM 2MG FRUIT FLAVOR PO PRN (15:39)
[2019-10-09] MEDS: Nicotine PATCH 14 MG/24 HR PATCH TRANSDERM SCH (05:55)
[2019-10-10] MEDS: Nicotine PATCH 14 MG/24 HR PATCH TRANSDERM SCH ×2 (06:04→10:29)
[2019-10-11] MEDS: Nicotine PATCH 14 MG/24 HR PATCH TRANSDERM SCH (06:04)
[2019-10-12] MEDS: Nicotine PATCH 14 MG/24 HR PATCH TRANSDERM SCH (05:36)
[2019-10-13] MEDS: Nicotine PATCH 14 MG/24 HR PATCH TRANSDERM SCH (06:07)
[2019-10-14] MEDS: Nicotine PATCH 14 MG/24 HR PATCH TRANSDERM SCH (06:25)
[2019-10-14] MEDS ORDERED: Nicotine PATCH 14 MG/24 HR PATCH TRANSDERM ONE (11:00)
[2019-10-15] MEDS: Nicotine PATCH 14 MG/24 HR PATCH TRANSDERM SCH (06:19)
[2019-10-16] MEDS: Nicotine PATCH 14 MG/24 HR PATCH TRANSDERM SCH (06:33)
[2019-10-17] MEDS: Nicotine PATCH 14 MG/24 HR PATCH TRANSDERM SCH (06:23)
[2019-10-17] MEDS ORDERED: Naltrexone INJ 380 MG IM ONE (09:00)
[2019-10-17] MEDS ORDERED: Paliperidone SUSTENNA 156 MG/1 ML IM ONE (09:00)
[2019-10-17] MEDS ORDERED: Paliperidone SUSTENNA 234 MG/1.5 ML IM ONE (10:00)
[2019-10-18] MEDS: Nicotine PATCH 14 MG/24 HR PATCH TRANSDERM SCH (06:00)
[2019-10-19] MEDS: Nicotine PATCH 14 MG/24 HR PATCH TRANSDERM SCH (05:45)
[2019-10-20] MEDS: Nicotine PATCH 14 MG/24 HR PATCH TRANSDERM SCH (05:25)
[2019-10-21] MEDS: Nicotine PATCH 14 MG/24 HR PATCH TRANSDERM SCH (05:04)
[2019-10-21 08:13] VITALS: BP 130/89
== END 2019-10-21 08:00 | DRG 775 ==
LOC: ED 08:15 → BSU 10:34
PROVIDERS: ADMIT Psychiatry & Neurology Psychiatry; ATTEND Psychiatry & Neurology Psychiatry

== ENCOUNTER 2019-11-12 15:25 | Inpatient (IN) ==
[2019-11-12] MEDS ORDERED: NS 0.9% 1000 ml BAG 1,000 ML IV ONE (15:27)
[2019-11-12 15:45] LABS: ABS Basophils 0.1 10^3/ul (0-0.2); ABS Eosinophils 0.1 10^3/ul (0-0.6); ABS Lymphocytes 2.6 10^3/ul (1.0-4.8); ABS Monocytes 1.3 10^3/ul (0-0.8); Eosinophil % 0.8 %; Hematocrit 46 % (42-52); Hemoglobin 15.6 g/dL (14.0-18.0); Lymphocyte % 20.9 %; Mean Corpuscular HGB Conc 34 g/dL (31-36); Mean Corpuscular Hemoglobin 29 pg (27-31); Mean Corpuscular Volume 86 fL (80-94); Mean Platelet Volume 8.1 fL (7.4-10.4); Nucleated Red Blood Cells % 0.1; Platelet Count 234 10^3/uL (150-450); Red Blood Count 5.34 10^6 /uL (4.18-5.48); Red Cell Distribution Width 15 % (10-15); White Blood Count 12.4 10^3/uL (3.5-10.8)
[2019-11-12] MEDS ORDERED: Lorazepam PYXIS KEY PRN ×2 (15:45→19:41)
[2019-11-12] MEDS ORDERED: LORazepam 2 mg VIAL 1 ml IV PUSH ONE (15:45)
[2019-11-12] MEDS ORDERED: Lorazepam PYXIS KEY ONE (15:46)
[2019-11-12 16:32] LABS: ALT 66 U/L (7-52); AST 123 U/L (13-39); Albumin 4.8 g/dL (3.2-5.2); Albumin/Globulin Ratio 1.5 (1-3); Alkaline Phosphatase 67 U/L (34-104); Anion Gap 9 mmol/L (2-11); Blood Urea Nitrogen 9 mg/dL (6-24); CO2 Carbon Dioxide 25 mmol/L (22-32); Chloride 106 mmol/L (101-111); EGFR African American 93.8 (>60); EGFR Non-African American 77.5 (>60); Globulin 3.3 g/dL (2-4); Glucose 60 mg/dL (70-100); Potassium 3.6 mmol/L (3.5-5.0); Sodium 140 mmol/L (135-145); Total Protein 8.1 g/dL (6.4-8.9)
[2019-11-12 16:42] LABS: Acetaminophen < 15 mcg/mL; Alcohol, S < 10 mg/dL (<10); Salicylate < 2.50 mg/dL (<30)
[2019-11-12 16:49] LABS: Creatine Kinase 11168 U/L (10-223)
[2019-11-12 18:42] LABS: Urine Appearance Clear; Urine Bilirubin Negative (Negative); Urine Blood Negative (Negative); Urine Color Yellow; Urine Glucose Negative (Negative); Urine Ketones Negative (Negative); Urine Nitrite Negative (Negative); Urine Protein 1+(30 mg/dL) (Negative); Urine Specific Gravity 1.013 (1.010-1.030); Urine Urobilinogen Negative (Negative)
[2019-11-12] MEDS ORDERED: Dextrose 25% PED SYRINGE 10ml IV ONE (18:45)
[2019-11-12 18:53] LABS: Urine Bacteria Absent (Absent); Urine Red Blood Cell Trace(0-2/hpf) (Absent); Urine White Blood Cell Trace(0-5/hpf) (Absent)
[2019-11-12 18:57] LABS: Urine Benzodiazepine Screen None Detected (None Detect); Urine Opiates Screen Presumptive Positive (None Detect)
[2019-11-12] MEDS ORDERED: Dextrose 50% Syringe 50 ml 25 GM/50 ML SYRINGE IV PUSH ONE (19:25)
[2019-11-12] MEDS: NS 0.9% 1000 ml BAG 2,000 ML IV ONE (19:33)
[2019-11-12] MEDS ORDERED: LORazepam 2 mg VIAL 1 ml IV PUSH PRN (19:41)
[2019-11-12] MEDS ORDERED: Haloperidol 5 mg/ml SDV IV/IM 5 MG/ML AMP IV SLOW PU PRN (19:42)
[2019-11-12] MEDS ORDERED: Dextrose 50% VIAL 50 ml IV PRN (19:43)
[2019-11-12] MEDS ORDERED: Enoxaparin 40 MG/0.4 ML SYR(*) SUBCUT SCH (20:00)
[2019-11-12] MEDS ORDERED: Nicotine GUM 2MG FRUIT FLAVOR PO PRN (22:53)
[2019-11-12] MEDS: NS 0.9% 1000 ml BAG 1,000 ML IV SCH (23:08)
[2019-11-13] MEDS: NS 0.9% 1000 ml BAG 1,000 ML IV SCH ×2 (03:42→09:16)
[2019-11-13 05:46] LABS: Calcium 8.7 mg/dL (8.6-10.3); EGFR African American 94.8 (>60); EGFR Non-African American 78.3 (>60); Potassium 3.7 mmol/L (3.5-5.0)
[2019-11-13] MEDS ORDERED: Dextrose 50% Syringe 50 ml 25 GM/50 ML SYRINGE PRN (12:21)
[2019-11-13 13:42] LABS: ABS Eosinophils 0.2 10^3/ul (0-0.6); ABS Lymphocytes 1.7 10^3/ul (1.0-4.8); ABS Monocytes 0.9 10^3/ul (0-0.8); Eosinophil % 2.5 %; Hematocrit 41 % (42-52); Hemoglobin 13.6 g/dL (14.0-18.0); Lymphocyte % 23.3 %; Mean Corpuscular HGB Conc 34 g/dL (31-36); Mean Corpuscular Hemoglobin 29 pg (27-31); Mean Corpuscular Volume 86 fL (80-94); Mean Platelet Volume 8.2 fL (7.4-10.4); Platelet Count 186 10^3/uL (150-450); Red Cell Distribution Width 15 % (10-15); White Blood Count 7.4 10^3/uL (3.5-10.8)
[2019-11-13 14:39] LABS: Glucose Confirmatory 135 mg/dL (70-100)
[2019-11-13 14:54] LABS: Creatine Kinase 3460 U/L (10-223)
[2019-11-13 19:35] VITALS: BP 140/90
== END 2019-11-13 18:00 | disposition home or self-care (01) | DRG 812 ==
LOC: ED 15:25 → MEDTELE 21:11
PROVIDERS: ADMIT Internal Medicine; ATTEND Hospitalist

== ENCOUNTER 2020-09-29 13:59 | Inpatient (IN) ==
[2020-09-29] MEDS ORDERED: NS 0.9% 1000 ml BAG 1,000 ML IV ONE (14:25)
[2020-09-29] MEDS ORDERED: Lorazepam PYXIS KEY PRN ×4 (14:38→22:42)
[2020-09-29] MEDS ORDERED: LORazepam 2 mg VIAL 1 ml IM ONE ×2 (14:38→15:41)
[2020-09-29] MEDS ORDERED: LORazepam 2 mg VIAL 1 ml ONE ×2 (14:39→15:42)
[2020-09-29] MEDS ORDERED: Lorazepam PYXIS KEY ONE ×2 (14:39→15:42)
[2020-09-29] MEDS ORDERED: LORazepam 2 mg VIAL 1 ml IV PUSH ONE (14:45)
[2020-09-29] MEDS ORDERED: Haloperidol 5 mg/ml SDV IV/IM 5 MG/ML AMP ONE (15:08)
[2020-09-29] MEDS ORDERED: Haloperidol 5 mg/ml SDV IV/IM 5 MG/ML AMP IM ONE (15:08)
[2020-09-29 18:15] LABS: ABS Basophils 0.1 10^3/ul (0-0.2); ABS Lymphocytes 2.2 10^3/ul (1.0-4.8); ABS Monocytes 1.4 10^3/ul (0-0.8); ABS Neutrophils 11.3 10^3/ul (1.5-7.7); Eosinophil % 0.1 %; Hematocrit 48 % (42-52); Hemoglobin 16.7 g/dL (14.0-18.0); Lymphocyte % 14.9 %; Mean Corpuscular HGB Conc 35 g/dL (31-36); Mean Corpuscular Hemoglobin 31 pg (27-31); Mean Corpuscular Volume 90 fL (80-94); Mean Platelet Volume 8.7 fL (7.4-10.4); Nucleated Red Blood Cells % 0.1; Platelet Count 232 10^3/uL (150-450); Red Blood Count 5.39 10^6 /uL (4.18-5.48); Red Cell Distribution Width 13 % (10-15); White Blood Count 15.1 10^3/uL (3.5-10.8)
[2020-09-29 18:36] LABS: ALT 55 U/L (7-52); Albumin 4.6 g/dL (3.2-5.2); Albumin/Globulin Ratio 1.5 (1-3); Alkaline Phosphatase 49 U/L (34-104); BUN/Creatinine Ratio 17.1 (8-20); Blood Urea Nitrogen 18 mg/dL (6-24); CO2 Carbon Dioxide 24 mmol/L (22-32); Calcium 9.2 mg/dL (8.6-10.3); Chloride 105 mmol/L (101-111); EGFR African American 100.3 (>60); EGFR Non-African American 82.9 (>60); Globulin 3.1 g/dL (2-4); Glucose 68 mg/dL (70-100); Sodium 139 mmol/L (135-145); Total Protein 7.7 g/dL (6.4-8.9)
[2020-09-29 18:38] LABS: Anion Gap 10 mmol/L (2-11)
[2020-09-29 19:09] LABS: Acetaminophen < 15 mcg/mL; Alcohol, S < 10 mg/dL (<10); Salicylate < 2.50 mg/dL (<30)
[2020-09-29 19:23] LABS: TSH Ultra Thyroid Stim Horm 6.63 mcIU/mL (0.34-5.60)
[2020-09-29 19:53] LABS: Creatine Kinase 58512 U/L (10-223)
[2020-09-29] MEDS ORDERED: Dextrose 50% Syringe 50 ml 25 GM/50 ML SYRINGE IV PUSH ONE (20:00)
[2020-09-29] MEDS ORDERED: NS 0.9% 1000 ml BAG 2,000 ML IV ONE (20:01)
[2020-09-29] MEDS ORDERED: NS 0.9% 1000 ml BAG 1,000 ML IV SCH (21:00)
[2020-09-29 21:26] LABS: Potassium Redraw 4.1 mmol/L (3.5-5.0)
[2020-09-29] MEDS ORDERED: Dextrose 50% Syringe 50 ml 25 GM/50 ML SYRINGE IV PUSH PRN (21:54)
[2020-09-29] MEDS ORDERED: Lactated Ringers 1000 ml BAG 1,000 ML IV SCH (22:00)
[2020-09-29 22:11] LABS: Free T4 0.67 ng/dL (0.61-1.12)
[2020-09-29] MEDS ORDERED: LORazepam 2 mg VIAL 1 ml IV PUSH PRN (22:42)
[2020-09-30 02:35] LABS: Urine Appearance Clear; Urine Bilirubin Negative (Negative); Urine Blood Negative (Negative); Urine Color Yellow; Urine Glucose 1+(50 mg/dL) (Negative); Urine Ketones Negative (Negative); Urine Nitrite Negative (Negative); Urine Protein 1+(30 mg/dL) (Negative); Urine Urobilinogen Negative (Negative)
[2020-09-30 02:39] LABS: Urine Benzodiazepine Screen None Detected (None Detect); Urine Cannabinoids Screen None Detected (None Detect); Urine Opiates Screen Presumptive Positive (None Detect)
[2020-09-30 03:00] LABS: Urine Bacteria 1+ (Absent); Urine Red Blood Cell Trace(0-2/hpf) (Absent); Urine White Blood Cell Trace(0-5/hpf) (Absent)
[2020-09-30 04:43] LABS: ABS Basophils 0.1 10^3/ul (0-0.2); ABS Eosinophils 0.1 10^3/ul (0-0.6); ABS Monocytes 1.5 10^3/ul (0-0.8); ABS Neutrophils 5.7 10^3/ul (1.5-7.7); Eosinophil % 1.2 %; Hematocrit 42 % (42-52); Hemoglobin 14.4 g/dL (14.0-18.0); Lymphocyte % 35.5 %; Mean Corpuscular HGB Conc 34 g/dL (31-36); Mean Corpuscular Hemoglobin 31 pg (27-31); Mean Corpuscular Volume 91 fL (80-94); Mean Platelet Volume 8.5 fL (7.4-10.4); Nucleated Red Blood Cells % 0.1; Platelet Count 182 10^3/uL (150-450); Red Blood Count 4.64 10^6 /uL (4.18-5.48); Red Cell Distribution Width 13 % (10-15); White Blood Count 11.4 10^3/uL (3.5-10.8)
[2020-09-30 04:47] LABS: INR 1.39 (0.82-1.09)
[2020-09-30 05:00] LABS: Albumin 3.8 g/dL (3.2-5.2); Albumin/Globulin Ratio 1.7 (1-3); Calcium 8.1 mg/dL (8.6-10.3); EGFR Non-African American 101.7 (>60); Globulin 2.3 g/dL (2-4); Potassium 3.6 mmol/L (3.5-5.0); Total Bilirubin 0.8 mg/dL (0.2-1.0); Total Protein 6.1 g/dL (6.4-8.9)
[2020-09-30] MEDS ORDERED: Nicotine PATCH 21 MG/24 HR PATCH TRANSDERM SCH (09:00)
[2020-09-30] MEDS: Lactated Ringers 1000 ml BAG 1,000 ML IV SCH ×3 (09:28→20:35)
[2020-09-30 14:39] LABS: Hepatitis B Surface Antigen Nonreactive (Nonreactive)
[2020-09-30 14:44] LABS: Hepatitis A Ab IgM Negative (Negative); Hepatitis B Core IgM Nonreactive (Nonreactive)
[2020-09-30 14:59] LABS: Hepatitis C Antibody Reactive (Negative)
[2020-09-30 15:42] LABS: Calcium 8.9 mg/dL (8.6-10.3)
[2020-10-01] MEDS: Lactated Ringers 1000 ml BAG 1,000 ML IV SCH ×2 (03:04→09:52)
[2020-10-01] MEDS ORDERED: Nicotine PATCH 21 MG/24 HR PATCH TRANSDERM SCH (06:00)
[2020-10-01 06:39] LABS: BUN/Creatinine Ratio 17.5 (8-20); Calcium 8.6 mg/dL (8.6-10.3); EGFR African American 137.3 (>60); EGFR Non-African American 113.5 (>60)
[2020-10-01 13:26] VITALS: BP 129/78
== END 2020-10-01 15:20 | disposition home or self-care (01) | DRG 812 ==
LOC: ED 13:59 → MEDTELE 21:24
PROVIDERS: ADMIT Internal Medicine; ATTEND Pediatrics

== ENCOUNTER 2020-10-06 07:10 | Inpatient (IN) ==
[2020-10-06] MEDS ORDERED: NS 0.9% 1000 ml BAG 1,000 ML IV ONE (07:33)
[2020-10-06] MEDS ORDERED: NS 0.9% 1000 ml BAG 1,000 ML IV SCH (07:45)
[2020-10-06] MEDS ORDERED: Lorazepam PYXIS KEY ONE (08:07)
[2020-10-06] MEDS ORDERED: Lorazepam PYXIS KEY PRN ×3 (08:08→15:32)
[2020-10-06] MEDS ORDERED: LORazepam 2 mg VIAL 1 ml ONE (08:08)
[2020-10-06] MEDS ORDERED: LORazepam 2 mg VIAL 1 ml IM ONE ×3 (08:08→08:54)
[2020-10-06] MEDS ORDERED: Haloperidol 5 mg/ml SDV IV/IM 5 MG/ML AMP IM ONE (08:10)
[2020-10-06] MEDS ORDERED: Haloperidol 5 mg/ml SDV IV/IM 5 MG/ML AMP ONE ×2 (08:10)
[2020-10-06 10:15] LABS: ABS Basophils 0.1 10^3/ul (0-0.2); ABS Lymphocytes 1.1 10^3/ul (1.0-4.8); ABS Monocytes 0.9 10^3/ul (0-0.8); ABS Neutrophils 7.5 10^3/ul (1.5-7.7); Eosinophil % 0.5 %; Hematocrit 43 % (42-52); Hemoglobin 14.8 g/dL (14.0-18.0); Lymphocyte % 11.5 %; Mean Corpuscular HGB Conc 34 g/dL (31-36); Mean Corpuscular Hemoglobin 31 pg (27-31); Mean Corpuscular Volume 91 fL (80-94); Mean Platelet Volume 7.9 fL (7.4-10.4); Platelet Count 213 10^3/uL (150-450); Red Blood Count 4.75 10^6 /uL (4.18-5.48); Red Cell Distribution Width 13 % (10-15); White Blood Count 9.6 10^3/uL (3.5-10.8)
[2020-10-06 10:44] LABS: ALT 62 U/L (7-52); AST 120 U/L (13-39); Albumin 4.2 g/dL (3.2-5.2); Albumin/Globulin Ratio 1.6 (1-3); Alkaline Phosphatase 54 U/L (34-104); Anion Gap 5 mmol/L (2-11); BUN/Creatinine Ratio 15.5 (8-20); Blood Urea Nitrogen 13 mg/dL (6-24); CO2 Carbon Dioxide 25 mmol/L (22-32); Calcium 8.7 mg/dL (8.6-10.3); Chloride 107 mmol/L (101-111); EGFR African American 129.8 (>60); EGFR Non-African American 107.3 (>60); Globulin 2.7 g/dL (2-4); Glucose 112 mg/dL (70-100); Lipase 12 U/L (11.0-82.0); Magnesium 2.1 mg/dL (1.9-2.7); Potassium 3.8 mmol/L (3.5-5.0); Sodium 137 mmol/L (135-145); Total Protein 6.9 g/dL (6.4-8.9)
[2020-10-06 11:16] LABS: Creatine Kinase 8298 U/L (10-223)
[2020-10-06 11:27] LABS: Alcohol, S < 10 mg/dL (<10)
[2020-10-06 13:40] LABS: Acetaminophen < 15 mcg/mL; Salicylate < 2.50 mg/dL (<30)
[2020-10-06] MEDS ORDERED: Al Hydrox/Mg Hydrox/Simet LIQ 30 ML UDC PO PRN (15:28)
[2020-10-06] MEDS ORDERED: Ondansetron 4 mg VIAL 2 MG/ML 2 ml VIAL IV PRN (15:28)
[2020-10-06] MEDS ORDERED: Haloperidol 5 mg/ml SDV IV/IM 5 MG/ML AMP IV SLOW PU PRN (15:32)
[2020-10-06 16:16] LABS: TSH Ultra Thyroid Stim Horm 7.96 mcIU/mL (0.34-5.60)
[2020-10-06 17:56] LABS: Albumin 4.4 g/dL (3.2-5.2); Albumin/Globulin Ratio 1.4 (1-3); Calcium 9.2 mg/dL (8.6-10.3); EGFR African American 100.3 (>60); EGFR Non-African American 82.9 (>60); Globulin 3.1 g/dL (2-4); Total Bilirubin 0.5 mg/dL (0.2-1.0); Total Protein 7.5 g/dL (6.4-8.9)
[2020-10-06] MEDS: Lactated Ringers 1000 ml BAG 1,000 ML IV SCH (20:00)
[2020-10-06] MEDS: LORazepam 2 mg VIAL 1 ml IV PUSH PRN (20:31)
[2020-10-06] MEDS: Nicotine PATCH 21 MG/24 HR PATCH TRANSDERM SCH (21:17)
[2020-10-07] MEDS: LORazepam 2 mg VIAL 1 ml IV PUSH PRN (00:25)
[2020-10-07] MEDS: Lactated Ringers 1000 ml BAG 1,000 ML IV SCH ×4 (02:47→19:43)
[2020-10-07 04:30] LABS: ABS Basophils 0.1 10^3/ul (0-0.2); ABS Eosinophils 0.4 10^3/ul (0-0.6); ABS Lymphocytes 2.4 10^3/ul (1.0-4.8); ABS Monocytes 1.2 10^3/ul (0-0.8); ABS Neutrophils 5.5 10^3/ul (1.5-7.7); Eosinophil % 4.1 %; Hematocrit 40 % (42-52); Hemoglobin 13.7 g/dL (14.0-18.0); Mean Corpuscular HGB Conc 34 g/dL (31-36); Mean Corpuscular Hemoglobin 32 pg (27-31); Mean Corpuscular Volume 92 fL (80-94); Mean Platelet Volume 8.1 fL (7.4-10.4); Platelet Count 191 10^3/uL (150-450); Red Blood Count 4.36 10^6 /uL (4.18-5.48); Red Cell Distribution Width 13 % (10-15); White Blood Count 9.5 10^3/uL (3.5-10.8)
[2020-10-07 04:46] LABS: Albumin 3.7 g/dL (3.2-5.2); Albumin/Globulin Ratio 1.5 (1-3); Calcium 8.6 mg/dL (8.6-10.3); EGFR African American 121.4 (>60); EGFR Non-African American 100.4 (>60); Globulin 2.5 g/dL (2-4); Potassium 3.5 mmol/L (3.5-5.0); Total Bilirubin 0.3 mg/dL (0.2-1.0); Total Protein 6.2 g/dL (6.4-8.9)
[2020-10-07] MEDS: Nicotine PATCH 21 MG/24 HR PATCH TRANSDERM SCH (08:18)
[2020-10-07 10:07] LABS: Free T4 0.75 ng/dL (0.61-1.12)
[2020-10-08] MEDS: Nicotine PATCH 21 MG/24 HR PATCH TRANSDERM SCH (09:18)
[2020-10-09] MEDS: Nicotine PATCH 21 MG/24 HR PATCH TRANSDERM SCH (09:16)
[2020-10-10] MEDS: Nicotine PATCH 21 MG/24 HR PATCH TRANSDERM SCH (09:23)
[2020-10-11] MEDS: Nicotine PATCH 21 MG/24 HR PATCH TRANSDERM SCH (07:41)
[2020-10-12] MEDS: Nicotine PATCH 21 MG/24 HR PATCH TRANSDERM SCH ×2 (08:02→14:55)
[2020-10-13] MEDS: Nicotine PATCH 21 MG/24 HR PATCH TRANSDERM SCH (08:03)
[2020-10-13 11:27] VITALS: BP 119/65
== END 2020-10-13 12:50 | DRG 812 ==
LOC: MED 07:10 → ED 07:10 → MED 19:32
PROVIDERS: ADMIT Hospitalist; ATTEND Internal Medicine

== ENCOUNTER 2020-10-30 09:02 | Observation (INO) ==
[2020-10-30 10:10] LABS: ABS Basophils 0.1 10^3/ul (0-0.2); ABS Eosinophils 0.1 10^3/ul (0-0.6); ABS Lymphocytes 1.9 10^3/ul (1.0-4.8); ABS Monocytes 0.5 10^3/ul (0-0.8); ABS Neutrophils 5.7 10^3/ul (1.5-7.7); Eosinophil % 1.1 %; Hematocrit 46 % (42-52); Hemoglobin 15.2 g/dL (14.0-18.0); Lymphocyte % 22.5 %; Mean Corpuscular HGB Conc 33 g/dL (31-36); Mean Corpuscular Hemoglobin 31 pg (27-31); Mean Corpuscular Volume 93 fL (80-94); Mean Platelet Volume 8.1 fL (7.4-10.4); Platelet Count 208 10^3/uL (150-450); Red Cell Distribution Width 13 % (10-15); White Blood Count 8.2 10^3/uL (3.5-10.8)
[2020-10-30 10:26] LABS: ALT 55 U/L (7-52); AST 115 U/L (13-39); Albumin 4.2 g/dL (3.2-5.2); Albumin/Globulin Ratio 1.6 (1-3); Alkaline Phosphatase 69 U/L (34-104); Anion Gap 9 mmol/L (2-11); Blood Urea Nitrogen 14 mg/dL (6-24); CO2 Carbon Dioxide 24 mmol/L (22-32); Calcium 9.3 mg/dL (8.6-10.3); Chloride 103 mmol/L (101-111); EGFR African American 95.1 (>60); EGFR Non-African American 78.6 (>60); Globulin 2.7 g/dL (2-4); Glucose 114 mg/dL (70-100); Potassium 3.6 mmol/L (3.5-5.0); Sodium 136 mmol/L (135-145); Total Protein 6.9 g/dL (6.4-8.9)
[2020-10-30 10:45] LABS: Creatine Kinase 8638 U/L (10-223)
[2020-10-30 10:51] LABS: Acetaminophen < 15 mcg/mL; Alcohol, S 147 mg/dL (<10); Salicylate < 2.50 mg/dL (<30)
[2020-10-30] MEDS ORDERED: NS 0.9% 1000 ml BAG 1,000 ML IV ONE (12:53)
[2020-10-30] MEDS ORDERED: Thiamine 100 MG/ML 2 ml VIAL (200 mg) IM ONE (14:18)
[2020-10-30] MEDS ORDERED: Nicotine PATCH 14 MG/24 HR PATCH TRANSDERM ONE (14:26)
[2020-10-30] MEDS ORDERED: NS 0.9% 1000 ml BAG 1,000 ML IV SCH (14:30)
[2020-10-30] MEDS ORDERED: LORazepam 2 mg VIAL 1 ml IV PUSH SCH ×2 (15:00)
[2020-10-30 15:02] LABS: Urine Appearance Clear; Urine Bilirubin Negative (Negative); Urine Blood Negative (Negative); Urine Color Straw; Urine Glucose Negative (Negative); Urine Ketones Negative (Negative); Urine Nitrite Negative (Negative); Urine Protein Negative (Negative); Urine Specific Gravity 1.006 (1.002-1.030); Urine Urobilinogen Negative (Negative)
[2020-10-30] MEDS: Multivitamins/Minerals TAB PO SCH (15:34)
[2020-10-30] MEDS: Nicotine PATCH 21 MG/24 HR PATCH TRANSDERM SCH (15:34)
[2020-10-30] MEDS: NS 0.9% 1000 ml BAG 1,000 ML IV SCH ×2 (15:35→21:30)
[2020-10-31] MEDS: NS 0.9% 1000 ml BAG 1,000 ML IV SCH ×3 (02:31→13:09)
[2020-10-31 06:36] LABS: Albumin 3.5 g/dL (3.2-5.2); Albumin/Globulin Ratio 1.5 (1-3); Calcium 8.5 mg/dL (8.6-10.3); EGFR African American 126.3 (>60); EGFR Non-African American 104.4 (>60); Globulin 2.3 g/dL (2-4); Total Bilirubin 0.5 mg/dL (0.2-1.0); Total Protein 5.8 g/dL (6.4-8.9)
[2020-10-31] MEDS: Multivitamins/Minerals TAB PO SCH (07:44)
[2020-10-31] MEDS: Nicotine PATCH 21 MG/24 HR PATCH TRANSDERM SCH (07:44)
[2020-10-31 12:12] VITALS: BP 138/93
== END 2020-10-31 14:55 | disposition home or self-care (01) ==
LOC: ED 09:02 → MED 09:02
PROVIDERS: ADMIT Internal Medicine; ATTEND Internal Medicine

== ENCOUNTER 2021-01-30 18:40 | Inpatient (IN) ==
[2021-01-30 19:37] LABS: ABS Basophils 0.1 10^3/ul (0-0.2); ABS Eosinophils 0.1 10^3/ul (0-0.6); ABS Lymphocytes 2.3 10^3/ul (1.0-4.8); ABS Monocytes 1.2 10^3/ul (0-0.8); ABS Neutrophils 12.5 10^3/ul (1.5-7.7); Eosinophil % 0.4 %; Hematocrit 46 % (42-52); Hemoglobin 15.4 g/dL (14.0-18.0); Lymphocyte % 14.1 %; Mean Corpuscular HGB Conc 34 g/dL (31-36); Mean Corpuscular Hemoglobin 31 pg (27-31); Mean Corpuscular Volume 93 fL (80-94); Mean Platelet Volume 8.8 fL (7.4-10.4); Platelet Count 277 10^3/uL (150-450); Red Blood Count 4.93 10^6 /uL (4.18-5.48); Red Cell Distribution Width 15 % (10-15); White Blood Count 16.1 10^3/uL (3.5-10.8)
[2021-01-30 19:49] LABS: ALT 43 U/L (7-52); AST 170 U/L (13-39); Albumin 4.6 g/dL (3.2-5.2); Albumin/Globulin Ratio 1.4 (1-3); Alkaline Phosphatase 75 U/L (35-149); Anion Gap 8 mmol/L (2-11); Blood Urea Nitrogen 12 mg/dL (6-24); CO2 Carbon Dioxide 24 mmol/L (22-32); Calcium 9.3 mg/dL (8.6-10.3); Chloride 108 mmol/L (101-111); EGFR African American 85.2 (>60); EGFR Non-African American 70.4 (>60); Globulin 3.4 g/dL (2-4); Glucose 75 mg/dL (70-100); Potassium 3.9 mmol/L (3.5-5.0); Sodium 140 mmol/L (135-145)
[2021-01-30 19:54] LABS: Alcohol, S < 13 mg/dL (<10)
[2021-01-30 20:25] LABS: Creatine Kinase 24683 U/L (10-223)
[2021-01-30] MEDS: Lactated Ringers 1000 ml BAG 1,000 ML IV ONE ×2 (21:42→22:02)
[2021-01-30] MEDS ORDERED: Lactated Ringers 1000 ml BAG 1,000 ML IV ONE (22:00)
[2021-01-30] MEDS ORDERED: Lactated Ringers 1000 ml BAG 1,000 ML IV SCH (22:00)
[2021-01-30] MEDS ORDERED: Ondansetron 4 mg VIAL 2 MG/ML 2 ml VIAL IV PRN (22:00)
[2021-01-30] MEDS ORDERED: Lorazepam PYXIS KEY PRN (22:12)
[2021-01-30] MEDS ORDERED: LORazepam 2 mg VIAL 1 ml IV PUSH PRN (22:12)
[2021-01-30 22:25] LABS: Urine Appearance Clear; Urine Bilirubin Negative (Negative); Urine Blood 3+ (Negative); Urine Color Yellow; Urine Glucose Negative (Negative); Urine Ketones Negative (Negative); Urine Nitrite Negative (Negative); Urine Protein 1+(30 mg/dL) (Negative); Urine Specific Gravity 1.013 (1.002-1.030); Urine Urobilinogen Negative (Negative)
[2021-01-30 22:27] LABS: Urine Bacteria Absent (Absent); Urine Red Blood Cell Trace(0-2/hpf) (Absent); Urine White Blood Cell Trace(0-5/hpf) (Absent)
[2021-01-30] MEDS: NS 0.9% 1000 ml BAG 1,000 ML IV SCH (23:46)
[2021-01-31] MEDS: NS 0.9% 1000 ml BAG 1,000 ML IV SCH ×3 (04:37→15:49)
[2021-01-31] MEDS: Nicotine PATCH 21 MG/24 HR PATCH TRANSDERM SCH (05:06)
[2021-01-31 06:04] LABS: EGFR African American 96.1 (>60); EGFR Non-African American 79.4 (>60); Potassium 3.4 mmol/L (3.5-5.0)
[2021-01-31] MEDS ORDERED: Potassium Chlor 20 meq TAB.ER PO ONE (08:22)
[2021-01-31] MEDS ORDERED: NS 0.9% 1000 ml BAG 1,000 ML IV SCH (16:34)
[2021-02-01] MEDS: NS 0.9% 1000 ml BAG 1,000 ML IV SCH ×2 (06:55→07:36)
[2021-02-01] MEDS: Nicotine PATCH 21 MG/24 HR PATCH TRANSDERM SCH (07:36)
[2021-02-01 09:08] LABS: ABS Basophils 0.1 10^3/ul (0-0.2); ABS Eosinophils 0.3 10^3/ul (0-0.6); ABS Lymphocytes 1.9 10^3/ul (1.0-4.8); ABS Monocytes 0.6 10^3/ul (0-0.8); ABS Neutrophils 5.5 10^3/ul (1.5-7.7); Eosinophil % 3.3 %; Hematocrit 43 % (42-52); Hemoglobin 14.3 g/dL (14.0-18.0); Lymphocyte % 22.3 %; Mean Corpuscular HGB Conc 34 g/dL (31-36); Mean Corpuscular Hemoglobin 31 pg (27-31); Mean Corpuscular Volume 93 fL (80-94); Mean Platelet Volume 8.6 fL (7.4-10.4); Platelet Count 253 10^3/uL (150-450); Red Cell Distribution Width 14 % (10-15); White Blood Count 8.3 10^3/uL (3.5-10.8)
[2021-02-01 09:28] LABS: Calcium 9.2 mg/dL (8.6-10.3); EGFR African American 160.2 (>60); EGFR Non-African American 132.4 (>60); Potassium 3.8 mmol/L (3.5-5.0)
[2021-02-01 15:36] VITALS: BP 123/82
[2021-02-01] MEDS ORDERED: NS 0.9% 1000 ml BAG 1,000 ML IV SCH (16:15)
== END 2021-02-01 18:15 | disposition home or self-care (01) | DRG 351 ==
LOC: ED 18:40 → MEDTELE 22:00 → SUATTDRO 22:00
PROVIDERS: ADMIT Student in an Organized Health Care Education/Training Program; ATTEND Internal Medicine

== ENCOUNTER 2021-02-08 14:11 | Observation (INO) ==
[2021-02-08 15:36] LABS: ABS Lymphocytes 1.9 10^3/ul (1.0-4.8); ABS Monocytes 1.3 10^3/ul (0-0.8); ABS Neutrophils 9.6 10^3/ul (1.5-7.7); Eosinophil % 0.2 %; Hematocrit 42 % (42-52); Hemoglobin 14.3 g/dL (14.0-18.0); Lymphocyte % 14.8 %; Mean Corpuscular HGB Conc 34 g/dL (31-36); Mean Corpuscular Hemoglobin 31 pg (27-31); Mean Corpuscular Volume 92 fL (80-94); Mean Platelet Volume 8.6 fL (7.4-10.4); Platelet Count 246 10^3/uL (150-450); Red Blood Count 4.57 10^6 /uL (4.18-5.48); Red Cell Distribution Width 15 % (10-15); White Blood Count 12.9 10^3/uL (3.5-10.8)
[2021-02-08 15:46] LABS: ALT 39 U/L (7-52); AST 23 U/L (13-39); Albumin 4.6 g/dL (3.2-5.2); Albumin/Globulin Ratio 1.4 (1-3); Alkaline Phosphatase 77 U/L (35-149); Anion Gap 10 mmol/L (2-11); Blood Urea Nitrogen 11 mg/dL (6-24); CO2 Carbon Dioxide 22 mmol/L (22-32); Calcium 9.9 mg/dL (8.6-10.3); Chloride 101 mmol/L (101-111); EGFR African American 118.4 (>60); EGFR Non-African American 97.8 (>60); Globulin 3.3 g/dL (2-4); Glucose 106 mg/dL (70-100); Potassium 3.8 mmol/L (3.5-5.0); Sodium 133 mmol/L (135-145); Total Protein 7.9 g/dL (6.4-8.9)
[2021-02-08] MEDS ORDERED: Charcoal 50 gm/Sorbitol 50 gm/240 ml BTL PO ONE (15:48)
[2021-02-08 16:06] LABS: Creatine Kinase 66 U/L (10-223)
[2021-02-08 16:10] LABS: Acetaminophen < 15 mcg/mL; Alcohol, S < 13 mg/dL (<13); Salicylate < 2.50 mg/dL (<30)
[2021-02-08 16:34] LABS: Urine Appearance Clear; Urine Bilirubin Negative (Negative); Urine Blood Negative (Negative); Urine Color Straw; Urine Glucose Negative (Negative); Urine Ketones Negative (Negative); Urine Nitrite Negative (Negative); Urine Protein Negative (Negative); Urine Specific Gravity 1.003 (1.002-1.030); Urine Urobilinogen Negative (Negative)
[2021-02-08] MEDS ORDERED: Enoxaparin 40 MG/0.4 ML SYR SUBCUT SCH (18:00)
[2021-02-08 18:42] LABS: Urine Benzodiazepine Screen None Detected (None Detect); Urine Cannabinoids Screen None Detected (None Detect); Urine Opiates Screen None Detected (None Detect)
[2021-02-09 06:07] LABS: ABS Basophils 0.1 10^3/ul (0-0.2); ABS Eosinophils 0.2 10^3/ul (0-0.6); ABS Lymphocytes 1.6 10^3/ul (1.0-4.8); ABS Monocytes 1.4 10^3/ul (0-0.8); ABS Neutrophils 8.4 10^3/ul (1.5-7.7); Eosinophil % 1.4 %; Hematocrit 40 % (42-52); Hemoglobin 13.9 g/dL (14.0-18.0); Lymphocyte % 13.4 %; Mean Corpuscular HGB Conc 34 g/dL (31-36); Mean Corpuscular Hemoglobin 31 pg (27-31); Mean Corpuscular Volume 92 fL (80-94); Mean Platelet Volume 8.6 fL (7.4-10.4); Platelet Count 219 10^3/uL (150-450); Red Blood Count 4.42 10^6 /uL (4.18-5.48); Red Cell Distribution Width 15 % (10-15); White Blood Count 11.6 10^3/uL (3.5-10.8)
[2021-02-09 06:24] LABS: Calcium 9.2 mg/dL (8.6-10.3); EGFR African American 119.9 (>60); EGFR Non-African American 99.1 (>60); Potassium 3.5 mmol/L (3.5-5.0)
[2021-02-09 12:52] VITALS: BP 124/84
== END 2021-02-09 12:52 ==
LOC: ED 14:11 → EDHOLD 14:11
PROVIDERS: ADMIT Hospitalist; ATTEND Hospitalist

== ENCOUNTER 2021-02-10 00:27 | Observation (INO) ==
[2021-02-10] MEDS ORDERED: NS 0.9% 1000 ml BAG 2,000 ML IV ONE (01:05)
[2021-02-10] MEDS ORDERED: Charcoal ACTIVATED 25 GM/120 ML BTL PO ONE (01:05)
[2021-02-10 01:32] LABS: ABS Basophils 0.1 10^3/ul (0-0.2); ABS Eosinophils 0.1 10^3/ul (0-0.6); ABS Lymphocytes 2.2 10^3/ul (1.0-4.8); ABS Monocytes 1.1 10^3/ul (0-0.8); ABS Neutrophils 7.7 10^3/ul (1.5-7.7); Eosinophil % 0.8 %; Hematocrit 42 % (42-52); Hemoglobin 14.2 g/dL (14.0-18.0); Lymphocyte % 19.3 %; Mean Corpuscular HGB Conc 34 g/dL (31-36); Mean Corpuscular Hemoglobin 31 pg (27-31); Mean Corpuscular Volume 91 fL (80-94); Mean Platelet Volume 8.5 fL (7.4-10.4); Platelet Count 228 10^3/uL (150-450); Red Blood Count 4.59 10^6 /uL (4.18-5.48); Red Cell Distribution Width 15 % (10-15); White Blood Count 11.2 10^3/uL (3.5-10.8)
[2021-02-10 02:01] LABS: ALT 43 U/L (7-52); AST 23 U/L (13-39); Albumin 4.5 g/dL (3.2-5.2); Albumin/Globulin Ratio 1.4 (1-3); Alkaline Phosphatase 78 U/L (35-149); Anion Gap 9 mmol/L (2-11); Blood Urea Nitrogen 12 mg/dL (6-24); CO2 Carbon Dioxide 24 mmol/L (22-32); Calcium 9.4 mg/dL (8.6-10.3); Chloride 102 mmol/L (101-111); EGFR African American 111.3 (>60); Globulin 3.3 g/dL (2-4); Glucose 111 mg/dL (70-100); Potassium 3.8 mmol/L (3.5-5.0); Sodium 135 mmol/L (135-145); Total Protein 7.8 g/dL (6.4-8.9)
[2021-02-10 02:03] LABS: Acetaminophen < 15 mcg/mL; Alcohol, S < 13 mg/dL (<13); Salicylate < 2.50 mg/dL (<30)
[2021-02-10] MEDS ORDERED: Nicotine PATCH 21 MG/24 HR PATCH ONE (07:08)
[2021-02-10] MEDS ORDERED: Nicotine PATCH 21 MG/24 HR PATCH TRANSDERM ONE (07:14)
[2021-02-10 07:50] LABS: Urine Appearance Clear; Urine Bilirubin Negative (Negative); Urine Blood Negative (Negative); Urine Color Yellow; Urine Glucose Negative (Negative); Urine Ketones Negative (Negative); Urine Nitrite Negative (Negative); Urine Protein Negative (Negative); Urine Specific Gravity 1.011 (1.002-1.030); Urine Urobilinogen Negative (Negative)
[2021-02-10 08:12] LABS: Urine Benzodiazepine Screen None Detected (None Detect); Urine Cannabinoids Screen Presumptive Positive (None Detect); Urine Opiates Screen None Detected (None Detect)
[2021-02-10] MEDS: Nicotine Lozenge mini 4 MG LOZNG.MINI MT PRN (21:01)
[2021-02-11 06:23] LABS: Calcium 9.2 mg/dL (8.6-10.3); EGFR African American 135.4 (>60); EGFR Non-African American 111.9 (>60); Potassium 3.6 mmol/L (3.5-5.0)
[2021-02-11] MEDS: Nicotine Lozenge mini 4 MG LOZNG.MINI MT PRN (07:18)
[2021-02-11 07:41] VITALS: BP 137/87
[2021-02-11] MEDS ORDERED: Nicotine PATCH 21 MG/24 HR PATCH TRANSDERM SCH (08:00)
== END 2021-02-11 10:00 ==
LOC: ED 00:27 → MEDTELE 00:27 → SUATTDRO 10:04
PROVIDERS: ADMIT Hospitalist; ATTEND Internal Medicine